=== PATIENT | male | born 1965 | race Caucasian/White ===

== ENCOUNTER 2017-10-07 09:58 | Observation (INO) | payer OTHER, SELFPAY ==
--- NOTE | 2017-10-07 10:58 | RAD REPORT ---
EXAM DESCRIPTION: Jayda Single View10/07/2017 10:35 am CLINICAL HISTORY: Chest pain COMPARISON: July 2017 FINDINGS: The lungs appear clear of acute infiltrate. The heart is normal size IMPRESSION: No acute abnormalities displayed
[2017-10-07 11:13] LABS: Absolute Lymphocytes (CBC) 1.4 K/uL (0.7-4.9); Absolute Monocytes 0.4 K/uL (0.1-1.3); Absolute Neutrophil 3.5 K/uL (1.8-8.0); Basophils % 1.3 % (0-1.3); Hematocrit 48.4 % (39.6-49.0); MCH 30.6 pg (27.0-35.0); MCV 92.4 fL (80-100); MPV 9.5 fL (7.6-11.3); Monocytes % 7.8 % (3.3-12.3); RBC Red Blood Cell Count 5.23 M/uL (4.33-5.43)
[2017-10-07 11:19] LABS: Urine Blood NEGATIVE (NEG); Urine Glucose NEGATIVE (NEG); Urine Protein NEGATIVE (NEG)
[2017-10-07 11:24] LABS: Bicarbonate 27 mEq/L (21-31); Glucose Level 122 mg/dL (65-120); Potassium 3.5 mEq/L (3.6-5.0); Protime INR 1.03; Sodium Level 132 mEq/L (135-145)
[2017-10-07 11:30] LABS: ALT/SGPT 66 IU/L (10-60); AST/SGOT 29 IU/L (10-42); Albumin 4.1 g/dL (3.2-5.5); Alkaline Phosphatase 43 IU/L (42-121); BUN Blood Urea Nitrogen 12 mg/dL (6-20); Bilirubin Direct 0.1 mg/dL (0-0.2); Bilirubin Total 0.3 mg/dL (0.3-1.2); Magnesium 1.8 mg/dL (1.8-2.5); Protein, Total 6.9 g/dL (6.0-8.3)
[2017-10-07] MEDS ORDERED: NITROGLYCERIN 0.4 MG/TAB SL ONE (11:56)
[2017-10-07] MEDS ORDERED: METOPROLOL TAR 50 MG TAB ONE (12:06)
[2017-10-07] MEDS ORDERED: ENOXAPARIN 100 MG/ML SYR SQ ONE (12:49)
[2017-10-07] MEDS ORDERED: ONDANSETRON 4 MG/2 ML VIAL ONE (13:03)
[2017-10-07] MEDS ORDERED: MORPHINE 4 MG/ML SYR ONE ×2 (13:03→13:50)
--- NOTE | 2017-10-07 13:45 | EDPHYS ---
Physician Documentation [facility] Name: Juan Miguel Langston Age: 52 yrs Sex: Male : 1965 Arrival Date: 10/07/2017 Time: 09:59 Bed 8 Private MD: ED Physician Lenard Rosario HPI: 10/07 10:40 This 52 yrs old Male presents to ER via Ambulatory with complaints of Chest pm1 pain. 10:40 The patient or guardian reports chest pain that is located primarily in the substernal pm1 area. Onset: just prior to arrival. The pain does not radiate. Associated signs and symptoms: Pertinent positives: shortness of breath, Pertinent negatives: abdominal pain, cough, dizziness, headache, nausea, palpitations, vomiting. The chest pain is described as a pressure, sharp. Duration: The patient or guardian reports a single episode. Modifying factors: The symptoms are alleviated by nothing. the symptoms are aggravated by emotionally stressful situations, exertion. Severity of pain: in the emergency department the pain is a 2 / 10. The patient has experienced similar episodes in the past, several times. The patient has not recently seen a physician, Has not seen a doctor since July of this year. . Patient has not taken any of his medications since July. Medications include: isosorbide mononitrate, metoprolol (d/c at [facility] ER visit in July), Aspirin 81 mg, atorvastatin, and nitroglycerin. Historical: - Allergies: 10:05 NKA; la1 - PMHx: 10:05 High Cholesterol; Hypertension; Myocardial infarction; Angina; la1 - Immunization history:: Adult Immunizations up to date. - Social history:: Smoking status: Patient uses tobacco products, smokes one-half pack cigarettes per day. ROS: 10:32 Constitutional: Negative for fever, chills, and weight loss, Eyes: Negative for injury, pm1 pain, redness, and discharge, ENT: Negative for injury, pain, and discharge, Neck: Negative for injury, pain, and swelling. 10:32 Respiratory: Negative for shortness of breath, cough, wheezing, and pleuritic chest pain, Abdomen/GI: Negative for abdominal pain, nausea, vomiting, diarrhea, and constipation, Back: Negative for injury and pain, : Negative for injury, bleeding, discharge, and swelling, MS/Extremity: Negative for injury and deformity, Skin: Negative for injury, rash, and discoloration, Neuro: Negative for headache, weakness, numbness, tingling, and seizure. 10:32 Cardiovascular: Positive for chest pain, of the mid-sternal area, Negative for edema, orthopnea, palpitations, paroxysmal nocturnal dyspnea. Exam: 10:32 Constitutional: This is a well developed, well nourished patient who is awake, alert, pm1 and in no acute distress. Head/Face: Normocephalic, atraumatic. Eyes: Pupils equal round and reactive to light, extra-ocular motions intact. Lids and lashes normal. Conjunctiva and sclera are non-icteric and not injected. Cornea within normal limits. Periorbital areas with no swelling, redness, or edema. ENT: Nares patent. No nasal discharge, no septal abnormalities noted. Tympanic membranes are normal and external auditory canals are clear. Oropharynx with no redness, swelling, or masses, exudates, or evidence of obstruction, uvula midline. Mucous membranes moist. Neck: Trachea midline, no thyromegaly or masses palpated, and no cervical lymphadenopathy. Supple, full range of motion without nuchal rigidity, or vertebral point tenderness. No Meningismus. Cardiovascular: Regular rate and rhythm with a normal S1 and S2. No gallops, murmurs, or rubs. Normal PMI, no JVD. No pulse deficits. Respiratory: Lungs have equal breath sounds bilaterally, clear to auscultation and percussion. No rales, rhonchi or wheezes noted. No increased work of breathing, no retractions or nasal flaring. Abdomen/GI: Soft, non-tender, with normal bowel sounds. No distension or tympany. No guarding or rebound. No evidence of tenderness throughout. Back: No spinal tenderness. No costovertebral tenderness. Full range of motion. Skin: Warm, dry with normal turgor. Normal color with no rashes, no lesions, and no evidence of cellulitis. MS/ Extremity: Pulses equal, no cyanosis. Neurovascular intact. Full, normal range of motion. 10:32 Chest/axilla: Inspection: normal, Palpation: crepitus, is not appreciated, tenderness, of the mid-sternal area, increases his chest pain. Vital Signs: 10:05 BP 181 / 100; Pulse 107; Resp 19; Temp 98.1; Pulse Ox 100% on R/A; Weight 99.79 kg; la1 Height 5 ft. 6 in. (167.64 cm); 11:00 BP 157 / 97; Pulse 89; Resp 18; Pulse Ox 100% on R/A; Pain 2/10; hb 12:39 BP 118 / 87; Pulse 74; Resp 18; Pulse Ox 97% on R/A; Pain 5/10; hb 13:15 BP 128 / 68; Pulse 68; Resp 21; Pulse Ox 96% on R/A; Pain 5/10; hb 14:00 BP 120 / 80; Pulse 62; Resp 17; Pulse Ox 99% on R/A; Pain 5/10; hb 15:00 BP 119 / 79; Pulse 59; Resp 18; Pulse Ox 99% on R/A; Pain 4/10; hb 10:05 Body Mass Index 35.51 (99.79 kg, 167.64 cm) la1 MDM: 10:10 Patient medically screened. rambo 10:10 Patient medically screened. rambo 10:44 Data reviewed: vital signs. Data interpreted: Pulse oximetry: on room air is 100 %. pm1 Interpretation: normal. 11:30 ED course: Chest pain worse 5/10 with shortness of breath. Medications ordered. pm1 13:43 Counseling: I had a detailed discussion with the patient and/or guardian regarding: the pm1 historical points, exam findings, and any diagnostic results supporting the discharge/admit diagnosis, lab results, radiology results, the need for further work-up and treatment in the hospital. 14:00 Physician consultation: Steve Bowden DO was contacted at 14:00, regarding admission, pm1 patient's condition, in the emergency department to see patient at 14:00. 10/07 10:18 Order name: Basic Metabolic Panel; Complete Time: 11: pm1 10/07 10:18 Order name: BNP; Complete Time: 12:33 pm1 10/07 10:18 Order name: CBC with Diff; Complete Time: 11:29 pm10/07 10:18 Order name: LFT's; Complete Time: 11:31 pm1 10/07 10:18 Order name: Magnesium; Complete Time: 11: pm1 10/07 10:18 Order name: PT-INR; Complete Time: 11:33 pm1 10/07 10:18 Order name: Ptt, Activated; Complete Time: 11:33 pm10/07 10:18 Order name: Troponin (emerg Dept Use Only); Complete Time: 12:33 pm10/07 10:18 Order name: XRAY Chest (1 view); Complete Time: 10:59 pm1 10/07 11:07 Order name: Urine Dipstick--Ancillary (enter results); Complete Time: 11:29 ag 10/07 16:26 Order name: Troponin I [facility] 10/07 16:29 Order name: Creatine Phosphokinase EDWA 10/07 16:29 Order name: CKMB Creatine Kinase MB EDWA 10/07 10:18 Order name: EKG; Complete Time: 10:19 pm10/07 10:18 Order name: Cardiac monitoring; Complete Time: 11:02 pm10/07 10:18 Order name: EKG - Nurse/Tech; Complete Time: 11:02 pm10/07 10:18 Order name: IV Saline Lock; Complete Time: 11:02 pm10/07 10:18 Order name: Labs collected and sent; Complete Time: 11:02 pm10/07 10:18 Order name: O2 Per Protocol; Complete Time: 11:02 pm10/07 10:18 Order name: O2 Sat Monitoring; Complete Time: 11:02 pm10/07 10:18 Order name: Urine Dipstick-Ancillary (obtain specimen); Complete Time: 10:36 pm1 10/07 15:24 Order name: Diet Regular Pedi; Complete Time: 15:25 ag Administered Medications: 11:37 Drug: Nitroglycerin 0.4 mg Route: Sublingual; hb 11:47 Drug: Aspirin 325 mg Route: PO; hb 12:30 Follow up: Response: No adverse reaction hb 11:47 Drug: Lopressor (metoprolol TARTRATE) 50 mg Route: PO; hb 12:30 Follow up: Response: No adverse reaction hb 11:48 Drug: Nitroglycerin 0.4 mg Route: Sublingual; hb 12:05 Drug: Nitroglycerin 0.4 mg Route: Sublingual; hb 12:30 Follow up: Response: No adverse reaction hb 12:47 Drug: Lovenox 1 mg/kg Route: Sub-Q; Site: abdomen; hb 13:45 Follow up: Response: No adverse reaction hb 12:48 Drug: morphine 4 mg Route: IVP; Site: right antecubital; hb 13:33 Follow up: Response: No adverse reaction hb 12:48 Drug: Zofran 4 mg Route: IVP; Site: right antecubital; hb 13:30 Follow up: Response: No adverse reaction hb 13:34 Drug: morphine 4 mg Route: IVP; Site: right antecubital; hb 14:30 Follow up: Response: No adverse reaction hb Disposition: 10/07/17 13:44 Hospitalization ordered by Steve Bowden for Observation. Preliminary diagnosis is Chest pain, unspecified. - Bed requested for Telemetry/MedSurg (observation). - Status is Observation. ss - Condition is Stable. - Problem is new. - Symptoms have improved. UTI on Admission? No Addendum: 10/10/2017 08:25 Co-signature as Attending Physician, Lenard Rosario MD I agree with the assessment and c boyle plan of care. Signatures: Dispatcher [employer] EDLenard Rivas MD MD cha Smirch, Shelby, RN RN ss Bora Duran RN RN la1 Nilam Burger Patrick, NP CLINIC ADMINISTRATOR pm1 Kym Jim RN RN hb
--- NOTE | 2017-10-07 13:45 | ER ---
Nurse's Notes [facility] Name: Juan Miguel Langston Age: 52 yrs Sex: Male : 1965 Arrival Date: 10/07/2017 Time: 09:59 Bed 8 Private MD: Diagnosis: Chest pain, unspecified Presentation: 10/07 10:03 Presenting complaint: Patient states: I was getting my blood drawn and they checked my la1 BP and it was 170/110 so I came here to get checked out. Pt with hx of HTN and angina. reports chest pain similar to his normal angina. Transition of care: patient was not received from another setting of care. Onset of symptoms was October 07, 2017. Care prior to arrival: None. 10:03 Method Of Arrival: Ambulatory la1 10:03 Acuity: DESTINY 3 la1 Historical: - Allergies: 10:05 NKA; la1 - PMHx: 10:05 High Cholesterol; Hypertension; Myocardial infarction; Angina; la1 - Immunization history:: Adult Immunizations up to date. - Social history:: Smoking status: Patient uses tobacco products, smokes one-half pack cigarettes per day. Screenin:45 Abuse screen: Denies threats or abuse. Denies injuries from another. Nutritional hb screening: No deficits noted. Tuberculosis screening: No symptoms or risk factors identified. Fall Risk None identified. Assessment: 10:45 General: Appears in no apparent distress. Behavior is calm, cooperative. Pain: Pain hb currently is 2 out of 10 on a pain scale. Neuro: Level of Consciousness is awake, alert, obeys commands, Oriented to person, place, time, situation. Cardiovascular: Heart tones S1 S2 present Capillary refill < 3 seconds Patient's skin is warm and dry. Respiratory: Airway is patent Trachea midline Respiratory effort is even, unlabored, Respiratory pattern is regular, symmetrical, Breath sounds are clear bilaterally. GI: No signs and/or symptoms were reported involving the gastrointestinal system. : No signs and/or symptoms were reported regarding the genitourinary system. EENT: No signs and/or symptoms were reported regarding the EENT system. Derm: No signs and/or symptoms reported regarding the dermatologic system. Skin is intact, is healthy with good turgor. Musculoskeletal: No signs and/or symptoms reported regarding the musculoskeletal system. 11:30 Reassessment: Pt c/o chest pain 5/10. Pain does not radiate. Denies SOB/nausea. VIRTUAL CLASSROOM MANAGER hb Oliver notified. 12:00 Reassessment: CP 5/10, VIRTUAL CLASSROOM MANAGER Oliver notified. hb 12:30 Reassessment: CP 5/10, VIRTUAL CLASSROOM MANAGER Oliver notified. hb 12:50 Reassessment: Pt c/o pain 5/0, unrelieved by Nitro x 3. VIRTUAL CLASSROOM MANAGER Oliver notified, morphine 4 hb mg administered as ordered. 14:25 Reassessment: Pt c/o chest pain 5/10, repeat morphine administered as ordered. hb 15:00 Reassessment: Pt resting with eyes closed, reports pain 3-4/10. NAD. VSS. Admission hb ordered. Awaiting room assignment at this time. Vital Signs: 10:05 BP 181 / 100; Pulse 107; Resp 19; Temp 98.1; Pulse Ox 100% on R/A; Weight 99.79 kg; la1 Height 5 ft. 6 in. (167.64 cm); 11:00 BP 157 / 97; Pulse 89; Resp 18; Pulse Ox 100% on R/A; Pain 2/10; hb 12:39 BP 118 / 87; Pulse 74; Resp 18; Pulse Ox 97% on R/A; Pain 5/10; hb 13:15 BP 128 / 68; Pulse 68; Resp 21; Pulse Ox 96% on R/A; Pain 5/10; hb 14:00 BP 120 / 80; Pulse 62; Resp 17; Pulse Ox 99% on R/A; Pain 5/10; hb 15:00 BP 119 / 79; Pulse 59; Resp 18; Pulse Ox 99% on R/A; Pain 4/10; hb 10:05 Body Mass Index 35.51 (99.79 kg, 167.64 cm) la1 ED Course: 09:59 Patient arrived in ED. as 10:05 Triage completed. la1 10:05 Arm band placed on left wrist. la1 10:06 Oliver Man NP is PHCP. pm1 10:06 Lenard Rosario MD is Attending Physician. pm1 10:34 X-ray completed. Portable x-ray completed in exam room. Patient tolerated procedure ml well. 10:36 XRAY Chest (1 view) In Process Unspecified. EDMS 10:45 Patient has correct armband on for positive identification. Placed in gown. Bed in low hb position. Call light in reach. Side rails up X 1. 10:50 Inserted saline lock: in right antecubital area, using aseptic technique. Blood hb collected. 11:02 Kym Jim, NICCI is Primary Nurse. hb 11:16 EKG done, by ED staff, reviewed by Oliver Man NP. 3 13:43 Steve Bowden DO is Hospitalizing Provider. pm1 15:58 Repeat lab(s) drawn. by ia, sent to lab. 3 Administered Medications: 11:37 Drug: Nitroglycerin 0.4 mg Route: Sublingual; hb 11:47 Drug: Aspirin 325 mg Route: PO; hb 12:30 Follow up: Response: No adverse reaction hb 11:47 Drug: Lopressor (metoprolol TARTRATE) 50 mg Route: PO; hb 12:30 Follow up: Response: No adverse reaction hb 11:48 Drug: Nitroglycerin 0.4 mg Route: Sublingual; hb 12:05 Drug: Nitroglycerin 0.4 mg Route: Sublingual; hb 12:30 Follow up: Response: No adverse reaction hb 12:47 Drug: Lovenox 1 mg/kg Route: Sub-Q; Site: abdomen; hb 13:45 Follow up: Response: No adverse reaction hb 12:48 Drug: morphine 4 mg Route: IVP; Site: right antecubital; hb 13:33 Follow up: Response: No adverse reaction hb 12:48 Drug: Zofran 4 mg Route: IVP; Site: right antecubital; hb 13:30 Follow up: Response: No adverse reaction hb 13:34 Drug: morphine 4 mg Route: IVP; Site: right antecubital; hb 14:30 Follow up: Response: No adverse reaction hb Outcome: 13:44 Decision to Hospitalize by Provider. pm1 17:14 Patient left the ED. ss Signatures: Dispatcher [employer] EDMS Dee Dee Morrow Melissa ml Smirch, Shelby, RN RN Bora Duran RN RN la1 Oliver Man NP VIRTUAL CLASSROOM MANAGER pm1 Kym Jim RN RN hb Herrera, Deanna [facility]
--- NOTE | 2017-10-07 14:04 | EKG ---
Test Date: 2017-10-07 Test Time: 11:07:47 Rug Sizer: LUCIANO MEASUREMENT RESULTS: Intervals: Rate: 82 MS: 150 QRSD: 108 QT: 352 QTc: 411 [place]: P: 52 MS: 150 QRS: 56 T: 48 INTERPRETIVE STATEMENTS: Normal sinus rhythm Intraventricular conduction delay Nonspecific T wave abnormality Abnormal ECG Compared to ECG 08/02/2017 17:32:54 no significant change from previous ECG Electronically Signed On 10-07-17 14:03:29 CDT by Eduardo Hernandes
[2017-10-07] MEDS ORDERED: ALBUTEROL 2.5 MG/3 ML NEB SOL NEB PRN (15:31)
[2017-10-07] MEDS ORDERED: ONDANSETRON 4 MG/2 ML VIAL IV PRN (15:31)
[2017-10-07] MEDS ORDERED: IPRATROPIUM BROM 0.5MG/2.5ML NEB PRN (15:31)
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
[2017-10-07 16:29] LABS: CKMB Creatine Kinase MB 4.1 ng/ml (0.3-4.0)
[2017-10-07] MEDS: ENOXAPARIN 40 MG/0.4 ML SQ SCH (17:00)
[2017-10-07 17:14] VITALS: BMI 37.1
[2017-10-07] MEDS: METOPROLOL TAR 25 MG TAB PO SCH (17:23)
[2017-10-07] MEDS ORDERED: POTASSIUM CL SA 10 MEQ TAB PO ONE (18:00)
[2017-10-07] MEDS ORDERED: MAGNESIUM SULFATE 1 gm IVPB 1 GM/100 ML BAG IV ONE (18:00)
[2017-10-07] MEDS: ARFORMOTEROL TARTRATE 15 MCG/2 ML VIAL.NEB NEB SCH (20:08)
[2017-10-07] MEDS: ATORVASTATIN 40 MG TAB PO SCH (20:18)
[2017-10-08 00:46] LABS: CKMB Creatine Kinase MB 3.9 ng/ml (0.3-4.0)
[2017-10-08 05:03] LABS: Absolute Lymphocytes (CBC) 2.1 K/uL (0.7-4.9); Absolute Monocytes 0.6 K/uL (0.1-1.3); Basophils % 1.2 % (0-1.3); Eosinophils % 3.4 % (0-4.4); Hematocrit 47.4 % (39.6-49.0); Lymphocytes % 35.7 % (15.3-44.8); MCH 30.7 pg (27.0-35.0); MCV 92.9 fL (80-100); MPV 9.7 fL (7.6-11.3); Monocytes % 9.7 % (3.3-12.3); RBC Red Blood Cell Count 5.11 M/uL (4.33-5.43)
[2017-10-08 05:32] LABS: BUN Blood Urea Nitrogen 13 mg/dL (6-20); Bicarbonate 26 mEq/L (21-31); Glucose Level 108 mg/dL (65-120); HDL Cholesterol 25 mg/dL (27-67); LDL Cholesterol, Calculated ND (<130); Potassium 4.5 mEq/L (3.6-5.0); Sodium Level 136 mEq/L (135-145)
[2017-10-08] MEDS: METOPROLOL TAR 25 MG TAB PO SCH (05:39)
[2017-10-08] MEDS: PANTOPRAZOLE 40MG TABLET PO SCH (05:39)
[2017-10-08 06:11] LABS: LDL, Direct 113 mg/dl (<130)
[2017-10-08 06:29] LABS: Urine Appearance CLEAR; Urine Bilirubin NEGATIVE (NEG); Urine Blood NEGATIVE (NEG); Urine Color YELLOW; Urine Glucose NEGATIVE (NEG); Urine Protein NEGATIVE (NEG); Urine Urobilinogen 0.2 mg/dL (0.2-1.0)
[2017-10-08 06:44] LABS: Urine Microscopic Reflex NO UMIC
[2017-10-08] MEDS: ARFORMOTEROL TARTRATE 15 MCG/2 ML VIAL.NEB NEB SCH (08:00)
[2017-10-08] MEDS: ASPIRIN EC 81 MG TAB PO SCH (08:12)
[2017-10-08] MEDS: ENOXAPARIN 40 MG/0.4 ML SQ SCH (08:12)
[2017-10-08] MEDS ORDERED: ISOSORBIDE MONO SR 30 MG TAB PO SCH (09:00)
[2017-10-08 10:18] LABS: CKMB Creatine Kinase MB 3.6 ng/ml (0.3-4.0)
--- NOTE | 2017-10-08 10:18 | P.PN ---
Subjective Date of Service: 10/08/17 (Hospitalist note) Primary Care Provider: None Chief Complaint: Chest pain Subjective: Improving (Patient is doing well is chest pain has resolved is an active smoker homeless person does not take any medication history of hypertension medications have been started) Review of Systems Unremarkable Physical Examination - Vital Signs Temperature: 97.6 F Blood Pressure: 140/63 Pulse: 60 Respirations: 18 Pulse Ox (%): 94 - Physical Exam General: Alert, Oriented x3 Respiratory: Clear to auscultation bilaterally Cardiovascular: No edema, Normal pulses Gastrointestinal: Normal bowel sounds, Non-distended - Studies Laboratory Data (last 24 hrs) 10/07/17 10:54: PT 12.1, INR 1.03, APTT 27.3 10/07/17 10:54: WBC 5.5, Hgb 16.0, Hct 48.4, Plt Count 253 10/07/17 10:54: B-Natriuretic Peptide 11 10/07/17 10:54: Sodium 132 L, Potassium 3.5 L, BUN 12, Creatinine 0.82, Glucose 122 H, Magnesium 1.8, Total Bilirubin 0.3, AST 29, ALT 66 H, Alkaline Phosphatase 43 Assessment & Plan - Problems (Diagnosis) (1) Chest pain Onset Date: 07/28/17 Current Visit: No Status: Acute Plan: Patient admitted with chest pain is homeless as not take any medications at home is an active smoker plan to monitor him on his current medications vital signs stable oxygenation satisfactory probably has underlying COPD started him on an inhaler patient's triglycerides are elevated troponin so far negative possible discharge tomorrow Qualifiers: Chest pain type: unspecified Qualified Code(s): R07.9 - Chest pain, unspecified Discharge Plan: Home Plan to discharge in: 24 Hours
[2017-10-08] MEDS: LISINOPRIL 20 MG TAB PO SCH (10:37)
[2017-10-08] MEDS ORDERED: DULERA 100/5 (MOMETASONE/FORMOTEROL) INHALER IH SCH (10:45)
--- NOTE | 2017-10-08 13:34 | CON ---
Chief Complaint: Chest pain. History Of Present Illness: Mr. Langston is a gentleman who comes to our hospital every few months. He will come in not taking medicines, taking medicines, gets stabilized and then go home and run out of medicines again. I think this is his third hospital admission for this. On one of the admission s, we did a cardiac cath. It was in January 2017. His arteries were normal and he has never required a stent or bypass surgery. He is a tobacco user smokes 10 cigarettes per day. He insists he does not drink much, but he will not tell us how much in the past he has had problems with alcohol abuse. No t sure about other substance abuse. He was on no home medications. The last time he was in our hosp ital, he was taking a beta-aly and an DINORAH inhibitor and aspirin. Physical Examination: General: Mr. Langston present blood pressure is 140/63, heart rate 60, temperature 97.6, O2 saturati on 94% on room air. Lungs: Clear. Heart: Within normal limits. Extremities: Normal. Denies having any chest pain. Temperature 97.6. Diagnostic Data: His electrocardiogram shows sinus rhythm, mild widening of the QRS, nonspecific T-w ave flattening. No change from previous EKGs we have in our hospital. His cardiac enzymes are all n ormal. Complete blood count is normal. Creatinine 0.78, blood glucose 108. Impression: Mr. Langston should be discharged. I would recommend we give him aspirin, metoprolol, a nd lisinopril. I do not think there is any role for him to take the isosorbide mononitrate. I would recommend that not be given as an outpatient blood pressure medicine. We should focus on medicines that are very inexpensive for him to take and we should look for some kind of a way he can get his me dicines paid for through some kind of health care plan, perhaps Medicaid could be involved or perhaps he could be a Medicare patient on some basis and have a prescription drug plan. Overall, Mr. Erick barrett hospitalization was caused by discontinuation of medicines that were helping him remain stable. I think we keep him on a beta aly, lisinopril, aspirin then quit using tobacco and alcohol. He co uld probably be very healthy and not requiring any hospitalization. ЕКАТЕРИНА Voice ID: [id number] Report ID: [id number]
[2017-10-08] MEDS: ATORVASTATIN 40 MG TAB PO SCH (20:39)
[2017-10-09 04:55] LABS: Absolute Lymphocytes (CBC) 1.8 K/uL (0.7-4.9); Absolute Monocytes 0.5 K/uL (0.1-1.3); Absolute Neutrophil 3.3 K/uL (1.8-8.0); Basophils % 0.6 % (0-1.3); Eosinophils % 2.9 % (0-4.4); Hematocrit 47.5 % (39.6-49.0); MCH 30.7 pg (27.0-35.0); MCV 92.2 fL (80-100); MPV 9.4 fL (7.6-11.3); Monocytes % 9.2 % (3.3-12.3); RBC Red Blood Cell Count 5.15 M/uL (4.33-5.43)
[2017-10-09 05:19] LABS: BUN Blood Urea Nitrogen 12 mg/dL (6-20); Bicarbonate 32 mEq/L (21-31); Glucose Level 109 mg/dL (65-120); Magnesium 1.9 mg/dL (1.8-2.5); Potassium 4.5 mEq/L (3.6-5.0); Sodium Level 140 mEq/L (135-145)
[2017-10-09] MEDS: PANTOPRAZOLE 40MG TABLET PO SCH (06:43)
[2017-10-09] MEDS: ENOXAPARIN 40 MG/0.4 ML SQ SCH (08:55)
[2017-10-09] MEDS: LISINOPRIL 20 MG TAB PO SCH (08:56)
[2017-10-09] MEDS: ASPIRIN EC 81 MG TAB PO SCH (08:56)
--- NOTE | 2017-10-09 09:40 | P.PN ---
Subjective Date of Service: 10/09/17 (Hospitalist) Primary Care Provider: None Chief Complaint: Chest pain Patient still continues to have chest pain described a retrosternal discomfort sans ischemic in nature that was transient that happened last night in addition he continues to have some pauses cardiology aware no shortness of breath or cough Review of Systems Unremarkable Physical Examination - Vital Signs Temperature: 98.6 F Blood Pressure: 156/84 Pulse: 69 Respirations: 20 Pulse Ox (%): 98 - Physical Exam General: Alert, Oriented x3 Respiratory: Clear to auscultation bilaterally Cardiovascular: No edema, Regular rate/rhythm Assessment & Plan - Problems (Diagnosis) (1) Chest pain Onset Date: 07/28/17 Current Visit: No Status: Acute Plan: Patient still continues to have chest pain has some having some pauses follow- up with Cardiology Qualifiers: Chest pain type: unspecified Qualified Code(s): R07.9 - Chest pain, unspecified
[2017-10-09] MEDS: ACETAMINOPHEN 500 MG TAB PO PRN ×2 (14:00→20:57)
--- NOTE | 2017-10-09 16:09 | PN ---
Subjective: Mr. Langston has had some pauses. They are associated with him taking a beta-aly. Apparently, in the past he has had trouble taking beta- blockers and he was told that he should take them again. He did not list that on his list of medicine, allergies, or intolerances, so we will put it on our electronic medical record. Hopefully, it will keep us from administring medicine he can not take. I think with sleep apnea and beta-aly together, he gets hypoxemic and gets pauses when he is asleep. His blood pressure is just mildly elevated even without a beta-aly. He has not had any pauses since last night. He may be close to being discharged home. He has atypical chest pain. We know how his coronary arteries are, with his recent cardiac catheterization. I think he is close to being ready to be discharged home. ЕКАТЕРИНА Voice ID: [id number] Report ID: [id number] LILLIAN
[2017-10-09] MEDS: ATORVASTATIN 40 MG TAB PO SCH (20:57)
[2017-10-10 04:24] LABS: Absolute Monocytes 0.6 K/uL (0.1-1.3); Absolute Neutrophil 3.4 K/uL (1.8-8.0); Basophils % 0.6 % (0-1.3); Eosinophils % 3.5 % (0-4.4); Hematocrit 47.7 % (39.6-49.0); Lymphocytes % 31.8 % (15.3-44.8); MCH 30.9 pg (27.0-35.0); MCV 92.4 fL (80-100); MPV 9.3 fL (7.6-11.3); Monocytes % 9.2 % (3.3-12.3); RBC Red Blood Cell Count 5.16 M/uL (4.33-5.43)
[2017-10-10 05:05] LABS: BUN Blood Urea Nitrogen 8 mg/dL (6-20); Bicarbonate 32 mEq/L (21-31); Glucose Level 102 mg/dL (65-120); Sodium Level 140 mEq/L (135-145)
[2017-10-10] MEDS: PANTOPRAZOLE 40MG TABLET PO SCH ×2 (07:30→10:17)
[2017-10-10 08:16] VITALS: BP 140/90; TEMP 98
[2017-10-10] MEDS: LISINOPRIL 20 MG TAB PO SCH ×2 (08:42→10:17)
[2017-10-10] MEDS: ASPIRIN EC 81 MG TAB PO SCH ×2 (08:42→10:17)
[2017-10-10] MEDS ORDERED: REGADENOSON 0.4 MG/5 ML SYR IV ONE (08:57)
[2017-10-10] MEDS: ENOXAPARIN 40 MG/0.4 ML SQ SCH (10:17)
--- NOTE | 2017-10-10 10:25 | RAD REPORT ---
EXAM DESCRIPTION: NM - Rest Stress Cardiac Imaging - 10/10/2017 10:16 am CLINICAL HISTORY: Chest pain COMPARISON: December 2016 TECHNIQUE: The patient was administered 10.3 mCi of Tc 99m Sestamibi prior to resting SPECT imaging of the heart. The patient was then administered 31.8 mCi of Tc 99m Sestamibi following exercise or ph armacologic stress. Multiplanar SPECT images were reviewed. FINDINGS: The end diastolic volume is 145 ml, the end systolic volume is 84 ml, and the ejection fra ction is 42 %. Ventricular volumes and ejection fraction are similar to the comparison. Prior study showed suspected reversible perfusion defect in the inferior wall left ventricular myocar dium. It is unknown if the patient underwent any stenting or diagnostic angiogram following the jose rison study. On the current examination, the prior inferior wall defect is not seen as a reversible defect. There is inferoseptal diminished activity that does not change between rest and stress imaging. Elsewhere i n the left ventricular myocardium no scarring or stress ischemia identifiable. IMPRESSION: No stress-induced ischemia identifiable. There is a small area of fixed diminished activ ity in the inferoseptal wall that may simply be diaphragmatic attenuation artifact or possibly scarri ng. The stress ischemic change seen on the December 2016 study is not appreciated on the current examination. End-diastolic volume is enlarged at 145 mL. Ejection fraction is below normal at 42%. These values a re similar to the December 2016 study.
--- NOTE | 2017-10-10 11:13 | TREADPHA ---
DX: CHEST PAIN, CORONARY ARTERY DISEASE Date of Study: 10/10/2017 Ht: 5' 6 " Wt: 230 lb 0 oz Consulting Physician: RIN MEDICATIONS: ASPIRIN, LIPITOR, LOVENOX, LISINOPRIL, PROTONIX, PROVENTEIL NEB TX, ATROVENT NEB TX HISTORY: 52 YEAR OLD MALE HERE FOR CHEST PAIN/ CORONARY ARTERY DISEASE. HISTORY OF MYOCARDIAL INFARCTION, ANGINA, HYPERTENSION, HIGH CHOLESTEROL, SLEEP APNEA PHYSICIAL EXAMINATION: RESTING B.P.: 140/88 RESTING H.R.: 76 RESTING EKG: SINUS, NON SPECIFIC ST ABNORMALITY. PROTOCOL: LEXISCAN EXERCISE TIME: 3:30 B.P. AT [place] STRESS: 149/61 IMPRESSION: LEXISCAN STRESS TEST PERFORMED AFTER UNSUCCESSFUL MYOVIEW. CARDIOLITE INJECTED PER PROTOCOL. COMLAINTS OF 4/10 MID STERNAL CHEST PRESSURE PRE TEST THAT INCREASED "SLIGHTLY FOR A FEW SECONDS" THEN RETURNED TO PRE LEVEL. SEE NUCLEAR MEDICINE REPORT. NO ST CHANGES WITH LEXISCAN STRESS.
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
[2017-10-10 12:04] VITALS: O2SAT 97
--- NOTE | 2017-10-10 13:01 | ECHO ---
HEIGHT: 5 ft 6 in WEIGHT: 230 lb 0 oz DATE OF STUDY: 10/10/[address]: Steve Bowden DO 2-DIMENSIONAL: YES M.MODE: YES DOPPLER: YES COLOR FLOW: YES TDS: NO PORTABLE: NO DEFINITY: NO BUBBLE STUDY: NO DIAGNOSIS: CHEST PAIN, CORONARY ARTERY DISEASE CARDIAC HISTORY: CATHERIZATION: YES SURGERY: NO PROSTHETIC VALVE: NO PACEMAKER: NO MEASUREMENTS (cm) DIASTOLIC (NORMALS) SYSTOLIC (NORMALS) IVSd 0.9 (0.6-1.2) LA Diam 3.2 (1.9-4.0) LVEF 60% LVIDd 4.6 (3.5-5.7) LVIDs 3.2 (2.0-3.5) %FS 32% LVPWd 1.0 (0.6-1.2) Ao Diam 3.2 (2.0-3.7) 2 DIMENSIONAL ASSESSMENT: RIGHT ATRIUM: NORMAL LEFT ATRIUM: NORMAL RIGHT VENTRICLE: NORMAL LEFT VENTRICLE: NORMAL TRICUSPID VALVE: NORMAL MITRAL VALVE: NORMAL PULMONIC VALVE: NORMAL AORTIC VALVE: NORMAL PERICARDIAL EFFUSION: NONE AORTIC ROOT: NORMAL LEFT VENTRICULAR WALL MOTION: NORMAL. DOPPLER/COLOR FLOW: NORMAL. COMMENTS: NORMAL 2D ECHO WITH DOPPLER. TECHNOLOGIST: VIN MURO
== END 2017-10-10 12:21 | disposition home or self-care (01) ==
LOC: ER 09:58 → ERHOLD 14:53 → 4TH 16:27
PROVIDERS: ADMIT Family Medicine; ATTEND Family Medicine
DX: R07.89 Other chest pain (principal); E87.1 Hypo-osmolality and hyponatremia; E87.6 Hypokalemia; I10 Essential (primary) hypertension; E78.5 Hyperlipidemia, unspecified; J44.9 Chronic obstructive pulmonary disease, unspecified; R09.02 Hypoxemia; G47.30 Sleep apnea, unspecified; I25.10 Atherosclerotic heart disease of native coronary artery without angina pectoris; E66.01 Morbid (severe) obesity due to excess calories; F17.200 Nicotine dependence, unspecified, uncomplicated; Z68.37 Body mass index [BMI] 37.0-37.9, adult
CPT/HCPCS: 36415; 71045; 78452; 80048; 80061; 80076; 81003; 82550; 82553; 83735; 83880; 84484; 85025; 85610; 85730; 93005; 93017; 93306; 96372; 96374; 96375; 99284; A9500; G0378; J1650; J2405; J2785; J3475; J7605

== ENCOUNTER 2017-10-10 14:40 | Emergency (ER) | payer OTHER, SELFPAY ==
--- NOTE | 2017-10-10 16:30 | RAD REPORT ---
EXAM DESCRIPTION: Jayda Single View10/10/2017 4:24 pm CLINICAL HISTORY: cough COMPARISON: October 07, 2017 FINDINGS: The lungs appear clear of acute infiltrate. The heart is normal size IMPRESSION: No acute abnormalities displayed
[2017-10-10] MEDS ORDERED: ASPIRIN 81 MG CHEWABLE TABLET ONE (16:42)
[2017-10-10] MEDS ORDERED: AMLODIPINE 5 MG TAB ONE (16:43)
--- NOTE | 2017-10-10 16:47 | EKG ---
Test Date: 2017-10-10 Test Time: 16:16:03 [employer]: SERG MEASUREMENT RESULTS: Intervals: Rate: 96 WY: 150 QRSD: 96 QT: 330 QTc: 416 [place]: P: 51 WY: 150 QRS: 69 T: -64 INTERPRETIVE STATEMENTS: Normal sinus rhythm ST & T wave abnormality, consider inferolateral ischemia Abnormal ECG Compared to ECG 10/07/2017 11:07:47 no significant change from previous ECG Electronically Signed On 10-10-17 16:47:15 CDT by Eduardo Hernandes
[2017-10-10 18:08] LABS: Absolute Lymphocytes (CBC) 1.8 K/uL (0.7-4.9); Absolute Monocytes 0.6 K/uL (0.1-1.3); Absolute Neutrophil 5.8 K/uL (1.8-8.0); Basophils % 1.4 % (0-1.3); Eosinophils % 1.2 % (0-4.4); Hematocrit 49.2 % (39.6-49.0); MCH 30.8 pg (27.0-35.0); MCV 90.9 fL (80-100); MPV 9.7 fL (7.6-11.3); RBC Red Blood Cell Count 5.41 M/uL (4.33-5.43)
[2017-10-10 18:15] LABS: Protime INR 1.04
[2017-10-10 18:22] LABS: Bicarbonate 26 mEq/L (21-31); Glucose Level 85 mg/dL (65-120); Potassium 3.6 mEq/L (3.6-5.0); Sodium Level 139 mEq/L (135-145)
[2017-10-10 18:28] LABS: ALT/SGPT 71 IU/L (10-60); AST/SGOT 40 IU/L (10-42); Albumin 4.2 g/dL (3.2-5.5); Alkaline Phosphatase 40 IU/L (42-121); BUN Blood Urea Nitrogen 8 mg/dL (6-20); Bilirubin Direct 0.1 mg/dL (0-0.2); Bilirubin Total 0.4 mg/dL (0.3-1.2); Creatine Phosphokinase 162 IU/L (22-269); Magnesium 1.9 mg/dL (1.8-2.5); Protein, Total 6.8 g/dL (6.0-8.3)
[2017-10-10 18:31] LABS: CKMB Creatine Kinase MB 4.4 ng/ml (0.3-4.0)
[2017-10-10 19:22] LABS: CKMB Creatine Kinase MB 4.3 ng/ml (0.3-4.0)
[2017-10-10] MEDS ORDERED: ISOSORBIDE MONO SR 60 MG TAB PO ONE (19:23)
--- NOTE | 2017-10-10 19:25 | EDPHYS ---
Physician Documentation [facility] Name: Juan Miguel Langston Age: 52 yrs Sex: Male : 1965 Arrival Date: 10/10/2017 Time: 14:43 Bed 6 Private MD: ED Physician Lenard Rosario HPI: 10/10 16:41 This 52 yrs old Male presents to ER via EMS with complaints of High Blood rambo Pressure. 16:41 The patient has elevated blood pressure and discovered this at home. Onset: The rambo symptoms/episode began/occurred just prior to arrival, this morning. Modifying factors: The symptoms are aggravated by activity, The symptoms are alleviated by remaining still. Associated signs and symptoms: The patient has no apparent associated signs or symptoms. The patient has experienced similar episodes in the past, multiple times. Historical: - Allergies: 14:51 NKA; hj - Home Meds: 14:51 Isosorbide Mononitrate Oral [Active]; Metoprolol Tartrate Oral [Active]; hj - PMHx: 14:51 Angina; High Cholesterol; Hypertension; Myocardial infarction; hj - PSHx: 14:51 None; hj - Immunization history:: Adult Immunizations up to date. - Social history:: Smoking status: Patient uses tobacco products, smokes one pack cigarettes per day. ROS: 16:42 Constitutional: Negative for fever, chills, and weight loss, Eyes: Negative for injury, rambo pain, redness, and discharge, ENT: Negative for injury, pain, and discharge, Neck: Negative for injury, pain, and swelling, Respiratory: Negative for shortness of breath, cough, wheezing, and pleuritic chest pain, Abdomen/GI: Negative for abdominal pain, nausea, vomiting, diarrhea, and constipation, Back: Negative for injury and pain, : Negative for injury, bleeding, discharge, and swelling, MS/Extremity: Negative for injury and deformity, Skin: Negative for injury, rash, and discoloration, Neuro: Negative for headache, weakness, numbness, tingling, and seizure, Psych: Negative for depression, anxiety, suicide ideation, homicidal ideation, and hallucinations, Allergy/Immunology: Negative for hives, rash, and allergies, Endocrine: Negative for neck swelling, polydipsia, polyuria, polyphagia, and marked weight changes, Hematologic/Lymphatic: Negative for swollen nodes, abnormal bleeding, and unusual bruising. 16:42 Cardiovascular: 16:42 Neuro: Positive for dizziness, headache. Exam: 16:42 Constitutional: This is a well developed, well nourished patient who is awake, alert, rambo and in no acute distress. Head/Face: Normocephalic, atraumatic. Eyes: Pupils equal round and reactive to light, extra-ocular motions intact. Lids and lashes normal. Conjunctiva and sclera are non-icteric and not injected. Cornea within normal limits. Periorbital areas with no swelling, redness, or edema. ENT: Nares patent. No nasal discharge, no septal abnormalities noted. Tympanic membranes are normal and external auditory canals are clear. Oropharynx with no redness, swelling, or masses, exudates, or evidence of obstruction, uvula midline. Mucous membranes moist. Neck: Trachea midline, no thyromegaly or masses palpated, and no cervical lymphadenopathy. Supple, full range of motion without nuchal rigidity, or vertebral point tenderness. No Meningismus. Chest/axilla: Normal chest wall appearance and motion. Nontender with no deformity. No lesions are appreciated. Cardiovascular: Regular rate and rhythm with a normal S1 and S2. No gallops, murmurs, or rubs. Normal PMI, no JVD. No pulse deficits. Abdomen/GI: Soft, non-tender, with normal bowel sounds. No distension or tympany. No guarding or rebound. No evidence of tenderness throughout. Back: No spinal tenderness. No costovertebral tenderness. Full range of motion. Male : Normal genitalia with no discharge or lesions. Skin: Warm, dry with normal turgor. Normal color with no rashes, no lesions, and no evidence of cellulitis. MS/ Extremity: Pulses equal, no cyanosis. Neurovascular intact. Full, normal range of motion. Neuro: Awake and alert, GCS 15, oriented to person, place, time, and situation. Cranial nerves II-XII grossly intact. Motor strength 5/5 in all extremities. Sensory grossly intact. Cerebellar exam normal. Normal gait. Psych: Awake, alert, with orientation to person, place and time. Behavior, mood, and affect are within normal limits. 16:42 Respiratory: the patient does not display signs of respiratory distress, Respirations: normal, Breath sounds: are clear throughout, Respiratory rate: 18 Vital Signs: 14:52 BP 156 / 85; Pulse 99; Resp 18; Temp 98.9(TE); Pulse Ox 99% on R/A; Weight 99.79 kg; hj Height 5 ft. 6 in. (167.64 cm); Pain 5/10; 16:40 BP 168 / 86; Pulse 85; Resp 16; Temp 98.5; Pulse Ox 99% on R/A; Pain 5/10; ch 17:55 BP 144 / 76; Pulse 72; ch 18:29 BP 147 / 87; Pulse 80; Resp 15; Temp 97.8; Pulse Ox 99% on R/A; Pain 2/10; ch 19:40 BP 140 / 72; Pulse 78; Resp 18; Temp 98.7(O); Pulse Ox 99% on R/A; ea 14:52 Body Mass Index 35.51 (99.79 kg, 167.64 cm) hj MDM: 16:07 Patient medically screened. [facility] 19:29 Data reviewed: vital signs, nurses notes, lab test result(s), EKG, radiologic studies, rambo plain films. Physician consultation: Eduardo Hernandes MD and will see patient in office, little to no coronary disease. 10/10 16:08 Order name: Basic Metabolic Panel [facility] 10/10 16:08 Order name: BNP; Complete Time: 19:24 [facility] 10/10 16:08 Order name: CBC with Diff; Complete Time: 18:31 [facility] 10/10 16:08 Order name: Ckmb; Complete Time: 18:31 [facility] 10/10 16:08 Order name: CPK; Complete Time: 18:31 [facility] 10/10 16:08 Order name: LFT's; Complete Time: 18:31 [facility] 10/10 16:08 Order name: Magnesium; Complete Time: 18:31 [facility] 10/10 16:08 Order name: PT-INR; Complete Time: 18:31 [facility] 10/10 16:08 Order name: Ptt, Activated; Complete Time: 18:31 [facility] 10/10 16:08 Order name: Troponin (emerg Dept Use Only); Complete Time: 18:31 [facility] 10/10 16:08 Order name: Basic Metabolic Panel; Complete Time: 18:31 [facility]MS 10/10 18:31 Order name: Ckmb [facility] 10/10 18:31 Order name: Creatine Phosphokinase [facility] 10/10 18:31 Order name: Troponin (emerg Dept Use Only); Complete Time: 19:24 [facility] 10/10 16:08 Order name: XRAY Chest (1 view); Complete Time: 18:05 [facility] 10/10 16:08 Order name: EKG; Complete Time: 16:09 [facility] 10/10 16:08 Order name: Cardiac monitoring; Complete Time: 18:00 [facility] 10/10 16:08 Order name: EKG - Nurse/Tech; Complete Time: 18:00 [facility] 10/10 16:08 Order name: IV Saline Lock; Complete Time: 18:00 [facility] 10/10 16:08 Order name: Labs collected and sent; Complete Time: 18:00 [facility] 10/10 16:08 Order name: O2 Per Protocol; Complete Time: 18:01 [facility] 10/10 16:08 Order name: O2 Sat Monitoring; Complete Time: 18:01 [facility] 10/10 18:31 Order name: Repeat Cardiac Enzymes at; Complete Time: 19:04 [facility] 10/10 18:31 Order name: EKG; Complete Time: 18:31 [facility] 10/10 18:31 Order name: EKG - Nurse/Tech; Complete Time: 19:04 [facility] Administered Medications: 16:41 Drug: Aspirin 81 mg Route: PO; ch 18:00 Follow up: Response: No adverse reaction; Marked relief of symptoms ch 16:41 Drug: Norvasc 5 mg Route: PO; ch 18:00 Follow up: Response: No adverse reaction ch 19:15 Drug: Isosorbide Mononitrate 60 mg Route: PO; ea 19:35 Follow up: Response: No adverse reaction ea Disposition: 10/10/17 19:25 Discharged to Home. Impression: Essential (primary) hypertension, Dizziness and giddiness, Tobacco use, Tobacco abuse counseling. - Condition is Stable. - Discharge Instructions: Dizziness, Hypertension, Smoking Cessation, Smoking Hazards, Hypertension, [id number], Smoking, You Can Quit, [id number], How to Take Your Blood Pressure, [id number], Aspirin and Your Heart, Dizziness, [id number]-[id number], Managing Your High Blood Pressure. - Prescriptions for Isosorbide Mononitrate 30 mg Oral Tablet Sustained Release 24 hr - take 1 tablet by ORAL route once daily in the morning; 30 tablet. Norvasc 5 mg Oral Tablet - take 1 tablet by ORAL route once daily; 20 tablet. - Medication Reconciliation Form, Thank You Letter, Antibiotic Education, Prescription Opioid Use form. - Follow up: Private Physician; When: 2 - 3 days; Reason: Recheck today's complaints, Continuance of care, Re-evaluation by your physician. Follow up: Eduardo Hernandes; When: 1 - 2 days; Reason: Recheck today's complaints, Continuance of care, Re-evaluation by your physician. - Problem is new. - Symptoms have improved. Signatures: Dispatcher [employer] Marimar Blackmon, RN RN Lenard Irvin MD MD cha Joaquin, Henry, RN RN Jeimy Waddell RN RN wendy
--- NOTE | 2017-10-10 19:25 | ER ---
Nurse's Notes [facility] Name: Juan Miguel Langston Age: 52 yrs Sex: Male : 1965 Arrival Date: 10/10/2017 Time: 14:43 Bed 6 Private MD: Diagnosis: Essential (primary) hypertension;Dizziness and giddiness;Tobacco use;Tobacco abuse counseling Presentation: 10/10 14:49 Presenting complaint: EMS states: was called for pt complaining of high BP; reports hj slight headache, A\T\O x 4; has just been D/C'd from a hospital for hypertension; denies nausea and vomiting; BP- 240/120; 2nd reading 175/110. Transition of care: patient was not received from another setting of care. Onset of symptoms was October 10, 2017. Care prior to arrival: None. 14:49 Method Of Arrival: EMS: [facility] 14:49 Acuity: DESTINY 3 hj Triage Assessment: 14:51 General: Appears in no apparent distress. uncomfortable, Behavior is calm, cooperative, hj appropriate for age. Pain: Complains of pain in head. Historical: - Allergies: 14:51 NKA; hj - Home Meds: 14:51 Isosorbide Mononitrate Oral [Active]; Metoprolol Tartrate Oral [Active]; hj - PMHx: 14:51 Angina; High Cholesterol; Hypertension; Myocardial infarction; hj - PSHx: 14:51 None; hj - Immunization history:: Adult Immunizations up to date. - Social history:: Smoking status: Patient uses tobacco products, smokes one pack cigarettes per day. Screenin:40 Abuse screen: Denies threats or abuse. Denies injuries from another. Nutritional ch screening: No deficits noted. Tuberculosis screening: No symptoms or risk factors identified. Fall Risk None identified. Assessment: 16:50 Reassessment: Patient appears in no apparent distress at this time. Patient and/or ch family updated on plan of care and expected duration. Pain level reassessed. Patient is alert, oriented x 3, equal unlabored respirations, skin warm/dry/pink. 17:53 General: Appears in no apparent distress. comfortable, Behavior is calm, cooperative, ch appropriate for age. Pain: Complains of pain in head and chest Pain currently is 3 out of 10 on a pain scale. Pain began gradually. Neuro: No deficits noted. Level of Consciousness is awake, alert, obeys commands, Oriented to person, place, time, situation. Cardiovascular: Reports None. Respiratory: Airway is patent Respiratory effort is even, unlabored, Breath sounds are coarse bilaterally. GI: No signs and/or symptoms were reported involving the gastrointestinal system. Derm: Skin is normal. Musculoskeletal: No signs and/or symptoms reported regarding the musculoskeletal system. 18:40 Reassessment: Patient appears in no apparent distress at this time. No changes from previously documented assessment. Patient and/or family updated on plan of care and expected duration. Pain level reassessed. Patient is alert, oriented x 3, equal unlabored respirations, skin warm/dry/pink. repeat ekg and labs drawn. Vital Signs: 14:52 BP 156 / 85; Pulse 99; Resp 18; Temp 98.9(TE); Pulse Ox 99% on R/A; Weight 99.79 kg; hj Height 5 ft. 6 in. (167.64 cm); Pain 5/10; 16:40 BP 168 / 86; Pulse 85; Resp 16; Temp 98.5; Pulse Ox 99% on R/A; Pain 5/10; ch 17:55 BP 144 / 76; Pulse 72; ch 18:29 BP 147 / 87; Pulse 80; Resp 15; Temp 97.8; Pulse Ox 99% on R/A; Pain 2/10; ch 19:40 BP 140 / 72; Pulse 78; Resp 18; Temp 98.7(O); Pulse Ox 99% on R/A; ea 14:52 Body Mass Index 35.51 (99.79 kg, 167.64 cm) ED Course: 14:43 Patient arrived in ED. mr 14:51 Triage completed. hj 14:52 Arm band placed on left wrist. hj 16:07 Lenard Rosario MD is Attending Physician. [facility] 16:14 EKG done, by deployment technician. reviewed by Lenard Rosario MD. [facility] 16:24 X-ray completed. Portable x-ray completed in exam room. Patient tolerated procedure mh1 well. 16:25 XRAY Chest (1 view) In Process Unspecified. EDMS 16:40 Patient has correct armband on for positive identification. Placed in gown. Bed in low ch position. Call light in reach. Side rails up X 1. front desk monitor on. Pulse ox on. NIBP on. Warm blanket given. 16:40 No provider procedures requiring assistance completed. ch 16:40 Missed attempt(s): 20 gauge in right in left antecubital area. attempted by sunitha . ch Bleeding controlled, band aid applied, catheter tip intact. 16:41 Marimar North, RN is Primary Nurse. ch 17:40 No apparent distress. Resting quietly. ch 17:40 Inserted saline lock: 20 gauge in right hand, using aseptic technique. Blood collected. ch 19:09 Report given to Carmencita. ch 19:25 Eduardo Hernandes MD is Referral Physician. rambo 19:43 IV discontinued, intact, bleeding controlled, No redness/swelling at site. Pressure ak1 dressing applied. Administered Medications: 16:41 Drug: Aspirin 81 mg Route: PO; ch 18:00 Follow up: Response: No adverse reaction; Marked relief of symptoms ch 16:41 Drug: Norvasc 5 mg Route: PO; ch 18:00 Follow up: Response: No adverse reaction ch 19:15 Drug: Isosorbide Mononitrate 60 mg Route: PO; ea 19:35 Follow up: Response: No adverse reaction ea Outcome: 19:25 Discharge ordered by . rambo 19:40 Discharged to home ambulatory, with significant other. ak1 19:40 Condition: improved 19:40 Discharge instructions given to patient, Instructed on discharge instructions, follow up and referral plans. medication usage, Demonstrated understanding of instructions, follow-up care, medications, Prescriptions given X 2. 20:01 Patient left the ED. ea Signatures: Dispatcher [employer] EDMS Marimar North, RN Lenard Meade ch, MD MD cha Rivera, Maria Gris Tenorio 1 Thu lynn, gyroscopic instrument mechanic EKG Tat1 Malu Herrera, RN RN ak1 Wild Wallace RN RN hj Antunez, Elena, RN RN ea Corrections: (The following items were deleted from the chart) 14:54 14:52 Pulse 99bpm; Resp 18bpm; Pulse Ox 99% RA; Temp 98.9F Temporal; 99.79 kg; Height 5 hj ft. 6 in.; BMI: 35.5; Pain 5/10; hj 17:58 16:40 Inserted saline lock: 20 gauge in right hand, using aseptic technique. Blood ch collected.
[2017-10-10 20:13] VITALS: O2SAT 99
[2017-10-10 20:18] VITALS: BP 140/72; TEMP 98.7
--- NOTE | 2017-10-11 06:56 | EKG ---
Test Date: 2017-10-10 Test Time: 18:56:07 Orange Picker Machine Operator: LAURA MEASUREMENT RESULTS: Intervals: Rate: 69 OH: 150 QRSD: 106 QT: 376 QTc: 402 [place]: P: 60 OH: 150 QRS: 71 T: -15 INTERPRETIVE STATEMENTS: Normal sinus rhythm Septal infarct, age undetermined ST & T wave abnormality, consider inferior ischemia Abnormal ECG Compared to ECG 10/10/2017 16:16:03 Myocardial infarct finding now present ST (T wave) deviation still present Possible ischemia still present Electronically Signed On 10-11-17 06:55:11 CDT by Eduardo Hernandes
== END 2017-10-10 20:01 | disposition home or self-care (01) ==
LOC: ER 14:40
DX: I10 Essential (primary) hypertension (principal); I25.2 Old myocardial infarction; Z72.0 Tobacco use; Z71.6 Tobacco abuse counseling
CPT/HCPCS: 36415; 71045; 80048; 80076; 82550; 82553; 83735; 83880; 84484; 85025; 85610; 85730; 93005; 99285

== ENCOUNTER 2017-11-24 14:33 | Observation (INO) | payer OTHER, SELFPAY ==
[2017-11-24 15:22] LABS: Absolute Lymphocytes (CBC) 1.7 K/uL (0.7-4.9); Absolute Monocytes 0.6 K/uL (0.1-1.3); Basophils % 0.8 % (0-1.3); Eosinophils % 2.1 % (0-4.4); Hematocrit 46.2 % (39.6-49.0); Lymphocytes % 26.6 % (15.3-44.8); MCH 30.6 pg (27.0-35.0); MCV 91.4 fL (80-100); MPV 9.4 fL (7.6-11.3); Monocytes % 8.5 % (3.3-12.3); RBC Red Blood Cell Count 5.05 M/uL (4.33-5.43)
[2017-11-24 15:25] LABS: Protime INR 0.99
[2017-11-24] MEDS ORDERED: MORPHINE 4 MG/ML SYR ONE (15:32)
[2017-11-24] MEDS ORDERED: NA CHLORIDE 0.9% 1,000 ML ONE ×2 (15:33→18:32)
[2017-11-24] MEDS ORDERED: ONDANSETRON 4 MG/2 ML VIAL ONE (15:33)
[2017-11-24 15:43] LABS: Bicarbonate 27 mEq/L (21-31); Glucose Level 121 mg/dL (65-120); Potassium 3.5 mEq/L (3.6-5.0); Sodium Level 137 mEq/L (135-145)
[2017-11-24 15:49] LABS: ALT/SGPT 56 IU/L (10-60); AST/SGOT 25 IU/L (10-42); Albumin 4.2 g/dL (3.2-5.5); Alkaline Phosphatase 43 IU/L (42-121); BUN Blood Urea Nitrogen 16 mg/dL (6-20); Bilirubin Direct 0.1 mg/dL (0-0.2); Bilirubin Total 0.5 mg/dL (0.3-1.2); Creatine Phosphokinase 138 IU/L (22-269)
--- NOTE | 2017-11-24 15:52 | RAD REPORT ---
EXAM DESCRIPTION: RAD - Chest Single View - 11/24/2017 3:02 pm CLINICAL HISTORY: Mid sternal chest pain COMPARISON: October 10, 2017 TECHNIQUE: AP portable chest image was obtained 1459 hours . FINDINGS: Lungs are clear. Heart and vasculature are normal. No measurable pleural effusion and no p neumothorax. No gross bony abnormality seen. No acute aortic findings suspected. IMPRESSION: No acute cardiopulmonary process. No significant interval
[2017-11-24] MEDS ORDERED: FENTANYL CITR 100 MCG/2 ML ONE (16:28)
[2017-11-24 16:52] LABS: Urine Blood NEGATIVE (NEG); Urine Glucose NEGATIVE (NEG); Urine Protein NEGATIVE (NEG); Urine pH 6.5 (5.0-7.0)
[2017-11-24 17:55] LABS: CKMB Creatine Kinase MB 3.5 ng/ml (0.3-4.0)
--- NOTE | 2017-11-24 17:57 | P.HP ---
Certification for Inpatient Patient admitted to: Observation With expected LOS: <2 Midnights Patient will require the following post-hospital care: Other Practitioner: I am a practitioner with admitting privileges, knowledge of patient current condition, hospital course, and medical plan of care. Services: Services provided to patient in accordance with Admission requirements found in Title 42 Section 412.3 of the Code of Federal Regulations Patient History Date of Service: 11/24/17 Primary Care Provider: None Reason for admission: Chest pain History of Present Illness: 52-year-old male presented emergency room with chest pain. Patient reported chest pain earlier today. The pain was in the substernal region. It radiated to the left side. No significant nausea or vomiting noted. He reports that he has not been compliant with his medication. Patient with history of hypertension, COPD, CAD, hyperlipidemia, GERD, and tobacco abuse. Patient recently hospitalized in October for similar issues. Patient had stress test at that time which showed no stress-induced ischemia. Ejection fraction was 42%. He was given medication and told to follow up. He reports that he is homeless. The only medication that he can afford is his blood pressure medication. In the ER he was evaluated. Initial cardiac enzymes unremarkable. Potassium 3.5, CBC unremarkable. Chest x-ray unremarkable. Due to the nature of his symptoms the patient was admitted for observation. The patient reports that he has been hot lately and mildly dehydrated since he is homeless. The wather outside has been poor. Allergies Beta-Blockers (Beta-Adrenergic Bloc Adverse Reaction (Verified 10/09/17 11:30) Anaphylaxis metoprolol Adverse Reaction (Verified 10/10/17 06:56) Anaphylaxis No Known Allergies Allergy (Uncoded 10/10/17 20:05) Unknown Home medications list reviewed: Yes Home Medications: Atorvastatin Calcium [Lipitor] 40 mg PO BEDTIME 30 Days #30 tab 10/08/17 Lisinopril [Prinivil*] 20 mg PO DAILY 30 Days #30 tab 10/08/17 Mometasone/Formoterol [Dulera 100 Mcg/5 Mcg Inhaler] 2 puff IH BID inhaler 01/18 Albuterol Sulfate [Proair Hfa] 8.5 gm IH TID PRN #1 hfa.aer.ad 10/10/17 Aspirin [Aspirin EC 81 MG] 81 mg PO DAILY #90 tablet. 10/10/17 Fluticasone/Salmeterol [Airduo Respiclick 113-14 Mcg] 1 each IH BID #1 aer.pow.ba 10/10/17 Pantoprazole [Protonix Tab] 40 mg PO DAILY #30 tab 10/10/17 - Past Medical/Surgical History Diabetic: No -: Angina -: HTN -: Hyperlipidemia -: Tobacco abuse -: CAD -: COPD -: GERD -: Noncompliance with medication and follow up -: CARDIAC CATH 12/2013 NO STENTS 30% BLOCKAGE PER PT -: Cardiac stress tests October 2017 showed no stress-induced ischemia Psychosocial/ Personal History: Patient is single. Patient is homeless. - Family History MOM -: Heart disease, Other (see notes) Notes: MASSIVE MD 61YR and arthritis DAD -: Heart disease, Other (see notes) Notes: POOR CIRCULATION TO LEGS PER PT - Social History Smoking Status: Heavy Tobacco smoker (>10 cigarettes/day) Counseled patient to stop smoking for: less than 10 minutes Smoking therapy provided: Yes Patient receptive to therapy: Yes Alcohol use: Yes CD- Drugs: No Caffeine use: Yes Place of Residence: Home Review of Systems General: Weakness, As per HPI Eyes: Unremarkable ENT: Unremarkable Respiratory: Unremarkable Cardiovascular: Chest Pain, As per HPI Gastrointestinal: Unremarkable Genitourinary: Unremarkable Musculoskeletal: Unremarkable Integumentary: Unremarkable Neurological: Unremarkable Lymphatics: Unremarkable Physical Examination - Physical Exam General: Alert, In no apparent distress, Oriented x3, Cooperative HEENT: Atraumatic, Normocephalic, PERRLA, Other (Dry mucous membranes) Neck: Supple, No Thyromegaly Respiratory: Clear to auscultation bilaterally, Normal air movement Cardiovascular: Normal pulses, Regular rate/rhythm Gastrointestinal: Normal bowel sounds, Soft and benign, Non-distended, No tenderness, No masses, No rebound, No guarding Musculoskeletal: No erythema, No tenderness, No warmth Integumentary: No tenderness/swelling, No erythema, No warmth, No cyanosis Neurological: Normal speech, Normal strength at 5/5 x4 extr, Normal tone, Normal affect Lymphatics: No axilla or inguinal lymphadenopathy - Studies Laboratory Data (last 24 hrs) 11/24/17 15:00: PT 11.7, INR 0.99, APTT 25.1 11/24/17 15:00: WBC 6.5, Hgb 15.5, Hct 46.2, Plt Count 238 11/24/17 15:00: B-Natriuretic Peptide 8 11/24/17 15:00: Sodium 137, Potassium 3.5 L, BUN 16, Creatinine 0.83, Glucose 121 H, Magnesium 2.0, Total Bilirubin 0.5, AST 25, ALT 56, Alkaline Phosphatase 43 Assessment and Plan - Problems (Diagnosis) (1) Chest pain Onset Date: 10/11/17 Current Visit: No Status: Acute Plan: Will monitor the patient overnight. Continue cardiac enzymes. Recent stress test showed no stress-induced ischemia. Will discuss case with cardiology who has been consulted. Qualifiers: Chest pain type: unspecified (2) Hypokalemia Onset Date: 10/11/17 Current Visit: No Status: Acute Plan: Will continue to monitor closely. Will replace electrolytes. (3) CAD (coronary artery disease) Onset Date: 10/11/17 Current Visit: No Status: Chronic Plan: Will continue with aspirin. Compliance with medications addressed in detail. Will discuss with cardiology. Qualifiers: (4) HLD (hyperlipidemia) Onset Date: 10/11/17 Current Visit: No Status: Chronic Plan: Will continue medication. Qualifiers: (5) HTN (hypertension) Onset Date: 10/11/17 Current Visit: No Status: Chronic Plan: Will continue with medication. Qualifiers: Hypertension type: essential hypertension (6) Nicotine dependence Onset Date: 10/11/17 Current Visit: No Status: Chronic Plan: Cessation education addressed. Qualifiers: (7) Obesity Current Visit: No Status: Chronic Plan: Will address lifestyle modification education Qualifiers: (8) COPD (chronic obstructive pulmonary disease) Onset Date: 10/11/17 Current Visit: No Status: Suspected Plan: Will continue with COPD treatment Qualifiers: (9) GERD (gastroesophageal reflux disease) Current Visit: No Status: Suspected Plan: Will continue with medication. Qualifiers: Discharge Plan: Home Plan to discharge in: 24 Hours - Advance Directives Does patient have a Living Will: No Does patient have a Durable POA for Healthcare: Yes - Code Status/Comfort Care Code Status Assessed: Yes Time Spent Managing Pts Care (In Minutes): 55
--- NOTE | 2017-11-24 18:42 | ER ---
Nurse's Notes [facility] Name: Juan Miguel Langston Age: 52 yrs Sex: Male : 1965 Arrival Date: 11/24/2017 Time: 14:33 Bed 14 Private MD: None, None Diagnosis: Chest pain, unspecified;Hypertensive heart disease Presentation: 11/24 14:34 Presenting complaint: EMS states: CP midsternal and left anterior side of chest, Left sg side radiates up neck and shoulder, pt reports similar episode about a month ago, was seen here and treated. Transition of care: patient was not received from another setting of care. Onset of symptoms was November 24, 2017. Risk Assessment: Do you want to hurt yourself or someone else? Patient reports no desire to harm self or others. Initial Sepsis Screen: Does the patient meet any 2 criteria? No. Patient's initial sepsis screen is negative. Does the patient have a suspected source of infection? No. Patient's initial sepsis screen is negative. Care prior to arrival: Medication(s) given: ASA, 81 mg, x 4, Oxygen administered. via nasal cannula. 14:34 Method Of Arrival: EMS: [facility] sg 14:34 Acuity: DESTINY 3 sg Historical: - Allergies: 14:38 NKA; sg - Home Meds: 14:38 Isosorbide Mononitrate Oral [Active]; Metoprolol Tartrate Oral [Active]; sg - PMHx: 14:38 Angina; High Cholesterol; Hypertension; Myocardial infarction; sg - PSHx: 14:38 None; sg - Immunization history:: Adult Immunizations up to date. - Social history:: Smoking status: Patient uses tobacco products. - Ebola Screening: : Patient negative for fever greater than or equal to 101.5 degrees Fahrenheit, and additional compatible Ebola Virus Disease symptoms Patient denies exposure to infectious person Patient denies travel to an Ebola-affected area in the 21 days before illness onset No symptoms or risks identified at this time. Screenin:46 Abuse screen: Denies threats or abuse. Denies injuries from another. Nutritional sg screening: No deficits noted. Tuberculosis screening: No symptoms or risk factors identified. Never had TB. Fall Risk None identified. Assessment: 14:46 General: Appears in no apparent distress. comfortable, well groomed, well developed, sg well nourished, Behavior is calm, cooperative, appropriate for age. Pain: Complains of pain in left jaw, anterior aspect of left upper chest and neck, left shoulder. Pain: Pain radiates to left side of neck, left jaw, left shoulder Noted to be grimacing. Neuro: Level of Consciousness is awake, alert, obeys commands, Oriented to person, place, time, Speech is normal. Cardiovascular: Heart tones S1 S2 present. Respiratory: Airway is patent Respiratory effort is even, unlabored, Respiratory pattern is regular, symmetrical, Breath sounds are clear. GI: No signs and/or symptoms were reported involving the gastrointestinal system. : No signs and/or symptoms were reported regarding the genitourinary system. EENT: No signs and/or symptoms were reported regarding the EENT system. Derm: Skin is pink, warm \\T\\ dry. Musculoskeletal: No deficits noted. 15:50 Reassessment: Patient appears in no apparent distress at this time. Patient and/or sg family updated on plan of care and expected duration. Pain level reassessed. Patient is alert, oriented x 3, equal unlabored respirations, skin warm/dry/pink. pt continues to c/o pain, pt reports " last time morphine worked, i dont think this was the right dose man, cause it just isnt working." pt remains at bedside, reports " yea it took double the dose to get his pain down." Héctor CHUN notified of pt pain, awaiting new orders at this time. 17:50 Reassessment: Patient appears in no apparent distress at this time. Patient and/or sg family updated on plan of care and expected duration. Pain level reassessed. Patient is alert, oriented x 3, equal unlabored respirations, skin warm/dry/pink. pt reports pain level decreased, reports feeling better. updated awaiting new orders, awaiting dispo. pt and pt family stated understanding, will continue to monitor Patient states feeling better. 18:50 Reassessment: Patient appears in no apparent distress at this time. Patient and/or sg family updated on plan of care and expected duration. Pain level reassessed. Patient is alert, oriented x 3, equal unlabored respirations, skin warm/dry/pink. awaiting admission orders at this time, awaiting evaluation by hospitalist, no new orders have been received, pt requesting food Patient states feeling better. 19:00 Pain: Pain began suddenly. bs1 19:10 Reassessment: Report received from NICCI Carver. bs1 19:10 General: Appears in no apparent distress. Behavior is calm, cooperative, appropriate bs1 for age. Pain: Complains of pain in patient reported pain to left anterior of chest and nexk and left shoulder, pain that radiated to left side of neck, left jaw, and left shoulder. Patient denies pain at this time. Neuro: Level of Consciousness is awake, alert, obeys commands, Oriented to person, place, time, Speech is normal, Facial symmetry appears normal. Cardiovascular: Heart tones S1 S2 present Capillary refill < 3 seconds Patient's skin is warm and dry. Respiratory: Airway is patent Trachea midline Respiratory effort is even, unlabored, Respiratory pattern is regular, symmetrical, Breath sounds are clear bilaterally. GI: No signs and/or symptoms were reported involving the gastrointestinal system. : No signs and/or symptoms were reported regarding the genitourinary system. EENT: No signs and/or symptoms were reported regarding the EENT system. Derm: Skin is intact, Skin is pink, warm \\T\\ dry. Musculoskeletal: Circulation, motion, and sensation intact. Capillary refill < 3 seconds, Range of motion: intact in all extremities. 20:15 Reassessment: No changes from previously documented assessment. Patient and/or family bs1 updated on plan of care and expected duration. Pain level reassessed. Patient is alert, oriented x 3, equal unlabored respirations, skin warm/dry/pink. Vital Signs: 14:45 BP 166 / 76; Pulse 105 MON; Resp 17; Temp 97.7; Pulse Ox 95% on R/A; Weight 113.4 kg; sg Height 5 ft. 10 in. (177.80 cm); Pain 6/10; 15:40 BP 145 / 73; Pulse 101; Resp 17 S; Pulse Ox 97% on R/A; sg 16:44 BP 142 / 74; Pulse 84 MON; Resp 17 S; Pulse Ox 97% on R/A; Pain 6/10; sg 18:41 BP 128 / 63; Pulse 85; Resp 16 S; Pulse Ox 96% on R/A; Pain 3/10; sg 19:16 BP 129 / 69; Pulse 77; Resp 16; Pulse Ox 97% on R/A; mt 20:00 BP 124 / 77; Pulse 80; Resp 16; Temp 98(O); Pulse Ox 94% on R/A; Pain 0/10; bs1 14:45 Body Mass Index 35.87 (113.40 kg, 177.80 cm) sg Alina Coma Score: 16:44 Eye Response: spontaneous(4). Verbal Response: oriented(5). Motor Response: obeys sg commands(6). Total: 15. 18:41 Eye Response: spontaneous(4). Verbal Response: oriented(5). Motor Response: obeys sg commands(6). Total: 15. ED Course: 14:33 Patient arrived in ED. sg 14:33 Mehul Deluca, RN is Primary Nurse. sg 14:36 Triage completed. sg 14:36 Arm band placed on. sg 14:46 Patient maintains SpO2 saturation greater than 95% on room air. sg 14:51 [facility] Gray [facility]. cp 14:51 Rashard Bardales MD is Attending Physician. cp 14:54 None, None is Private Physician. sb2 15:02 X-ray completed. Portable x-ray completed in exam room. Patient tolerated procedure mh1 well. 15:02 XRAY Chest (1 view) In Process Unspecified. EDMS 15:02 EKG done, by veterinary laboratory technician. reviewed by Lenard CHUN. at1 15:21 Patient has correct armband on for positive identification. Bed in low position. Call 5 light in reach. Side rails up X 1. night monitor on. Pulse ox on. NIBP on. 15:21 Initial lab(s) drawn, by sd, sent to lab. Inserted saline lock: 20 gauge in right 5 antecubital area, using aseptic technique. Blood collected. 18:41 Steve Bowden DO is Hospitalizing Provider. cp 20:11 No provider procedures requiring assistance completed. Patient admitted, IV remains in bs1 place. intact. Administered Medications: 15:35 Drug: morphine 2 mg Route: IVP; Site: right antecubital; sg 16:06 Follow up: Response: No adverse reaction; Pain is unchanged, physician notified sg 15:39 Drug: NS 0.9% 500 ml Route: IV; Rate: bolus; Site: right antecubital; sg 20:14 Follow up: IV Status: Completed infusion bs1 16:30 Drug: fentaNYL (PF) 25 mcg Route: IVP; Site: right antecubital; sg 20:14 Follow up: Response: No adverse reaction bs1 16:39 Drug: NS 0.9% 500 ml Route: IV; Rate: bolus; Site: right antecubital; sg 20:14 Follow up: IV Status: Completed infusion bs1 17:28 Drug: NS 0.9% 1000 ml Route: IV; Rate: 100 ml/hr; Site: right antecubital; sg 20:14 Follow up: IV Status: Infusion continued upon admission bs1 Outcome: 18:41 Decision to Hospitalize by Provider. cp 20:11 Admitted to Tele accompanied by tech, via wheelchair, room 428, with chart, Report bs1 called to NICCI James 20:11 Condition: stable 20:11 Instructed on the need for admit. 20:16 Patient left the ED. bs1 Signatures: Dispatcher [employer] EDMehul Valenzuela RN RN sg Gris Winter mh1 Thu lynn, rock climbing instructor EKG Tat1 Lenard Gray PA PA Fátima Meadows 5 [place], [facility] Bridgett Zhong RN RN bs1 Shu De La Rosa sb2 Corrections: (The following items were deleted from the chart) 20:15 20:12 Pain: Pain began suddenly, bs1 bs1
--- NOTE | 2017-11-24 18:42 | EDPHYS ---
Physician Documentation [facility] Name: Juan Miguel Langston Age: 52 yrs Sex: Male : 1965 Arrival Date: 11/24/2017 Time: 14:33 Bed 14 Private MD: None, None ED Physician Rashard Bardales HPI: 11/24 15:20 This 52 yrs old Male presents to ER via EMS with complaints of Chest Pain > cp 30 y/o. 15:20 The patient or guardian reports chest pain that is located primarily in the anterior cp chest wall, left. Onset: about 1 hour prior to arrival. The pain radiates to the left arm. 15:20 The chest pain is described as a pressure. Duration: The patient or guardian reports a cp single episode, that is still ongoing. 15:20 Associated signs and symptoms: Pertinent negatives: abdominal pain, cough, diaphoresis, cp dizziness, headache, lower extremity pain, lower extremity swelling, recent travel, shortness of breath, vomiting. Historical: - Allergies: 14:38 NKA; sg - Home Meds: 14:38 Isosorbide Mononitrate Oral [Active]; Metoprolol Tartrate Oral [Active]; sg - PMHx: 14:38 Angina; High Cholesterol; Hypertension; Myocardial infarction; sg - PSHx: 14:38 None; sg - Immunization history:: Adult Immunizations up to date. - Social history:: Smoking status: Patient uses tobacco products. - Ebola Screening: : Patient negative for fever greater than or equal to 101.5 degrees Fahrenheit, and additional compatible Ebola Virus Disease symptoms Patient denies exposure to infectious person Patient denies travel to an Ebola-affected area in the 21 days before illness onset No symptoms or risks identified at this time. ROS: 15:25 Constitutional: Negative for body aches, chills, fever, poor PO intake. cp 15:25 Eyes: Negative for injury, pain, redness, and discharge. cp 15:25 ENT: Negative for drainage from ear(s), ear pain, sore throat, difficulty swallowing, difficulty handling secretions. 15:25 Neck: Negative for pain with movement, pain at rest, stiffness, tenderness. 15:25 Cardiovascular: Positive for chest pain, Negative for edema, palpitations. 15:25 Respiratory: Negative for cough, shortness of breath, wheezing. 15:25 Abdomen/GI: Negative for abdominal pain, vomiting, diarrhea, constipation, black/tarry stool, rectal bleeding. 15:25 Back: Negative for radiated pain. 15:25 Skin: Negative for cellulitis, rash. 15:25 Neuro: Negative for altered mental status, headache, syncope, near syncope, weakness. 15:25 All other systems are negative. Exam: 15:30 Head/Face: Normocephalic, atraumatic. Eyes: Pupils equal round and reactive to light, cp extra-ocular motions intact. Lids and lashes normal. Conjunctiva and sclera are non-icteric and not injected. Cornea within normal limits. Periorbital areas with no swelling, redness, or edema. ENT: Nares patent. No nasal discharge, no septal abnormalities noted. Tympanic membranes are normal and external auditory canals are clear. Oropharynx with no redness, swelling, or masses, exudates, or evidence of obstruction, uvula midline. Mucous membranes moist. Neck: Trachea midline, no thyromegaly or masses palpated, and no cervical lymphadenopathy. Supple, full range of motion without nuchal rigidity, or vertebral point tenderness. No Meningismus. Chest/axilla: Normal chest wall appearance and motion. Nontender with no deformity. No lesions are appreciated. 15:30 Constitutional: The patient appears in no acute distress, alert, awake, non-diaphoretic, non-toxic, well developed, well nourished. 15:30 Cardiovascular: Rate: tachycardic, Rhythm: regular, Pulses: Pulses are 2+ in right cp radial artery and left radial artery. Edema: is not appreciated, JVD: is not appreciated. 15:30 Respiratory: the patient does not display signs of respiratory distress, Respirations: normal, no use of accessory muscles, no retractions, no splinting, no tachypnea, labored breathing, is not present, Breath sounds: are clear throughout, no decreased breath sounds, no stridor, no wheezing. 15:30 Abdomen/GI: Inspection: abdomen appears normal, Bowel sounds: active, all quadrants, Palpation: abdomen is soft and non-tender, in all quadrants, rebound tenderness, is not appreciated, voluntary guarding, is not appreciated, involuntary guarding, is not appreciated. Vital Signs: 14:45 BP 166 / 76; Pulse 105 MON; Resp 17; Temp 97.7; Pulse Ox 95% on R/A; Weight 113.4 kg; sg Height 5 ft. 10 in. (177.80 cm); Pain 6/10; 15:40 BP 145 / 73; Pulse 101; Resp 17 S; Pulse Ox 97% on R/A; sg 16:44 BP 142 / 74; Pulse 84 MON; Resp 17 S; Pulse Ox 97% on R/A; Pain 6/10; sg 18:41 BP 128 / 63; Pulse 85; Resp 16 S; Pulse Ox 96% on R/A; Pain 3/10; sg 19:16 BP 129 / 69; Pulse 77; Resp 16; Pulse Ox 97% on R/A; mt 20:00 BP 124 / 77; Pulse 80; Resp 16; Temp 98(O); Pulse Ox 94% on R/A; Pain 0/10; bs1 14:45 Body Mass Index 35.87 (113.40 kg, 177.80 cm) sg [place] Coma Score: 16:44 Eye Response: spontaneous(4). Verbal Response: oriented(5). Motor Response: obeys sg commands(6). Total: 15. 18:41 Eye Response: spontaneous(4). Verbal Response: oriented(5). Motor Response: obeys sg commands(6). Total: 15. MDM: 14:54 Patient medically screened. cp 16:00 Differential diagnosis: abnormal EKG, acute myocardial infarction, acute pericarditis, cp chest wall pain, gastroesophageal reflux disease (GERD), pancreatitis, pericarditis, pleurisy, pneumonia, pneumothorax, pulmonary embolus, stable angina, thoracic aortic disection, unstable angina. 16:00 The patient was not given aspirin in the Emergency Department. Administered by EMS. cp 17:30 Data reviewed: vital signs, nurses notes, lab test result(s), EKG, radiologic studies, cp plain films. 17:30 Test interpretation: by ED physician or midlevel provider: ECG, plain radiologic cp studies. 17:55 Physician consultation: Steve Bowden DO was contacted at 17:55, regarding admission, cp to the telemetry unit. patient's condition, and will see patient in ED, shortly. 11/24 14:51 Order name: Basic Metabolic Panel; Complete Time: 18:40 cp 11/24 17:27 Interpretation: Normal except: K 3.5; GLUC 121. cp 11/24 14:51 Order name: BNP 11/24 14:51 Order name: CBC with Diff; Complete Time: 17:05 11/24 17:06 Interpretation: Reviewed. 11/24 14:51 Order name: Ckmb; Complete Time: 18:40 cp / 14:51 Order name: CPK; Complete Time: 18:40 cp / 14:51 Order name: LFT's; Complete Time: 18:40 cp 11/24 14:51 Order name: Magnesium; Complete Time: 18:40 cp 11/24 14:51 Order name: PT-INR; Complete Time: 17:05 11/24 14:51 Order name: Ptt, Activated; Complete Time: 17:05 11/24 14:51 Order name: Troponin (emerg Dept Use Only); Complete Time: 17:05 11/24 17:05 Interpretation: TROPED < 0.03; Reviewed. 11/24 14:51 Order name: XRAY Chest (1 view); Complete Time: 17:05 11/24 16:29 Order name: Urine Dipstick--Ancillary (enter results); Complete Time: 17:05 11/24 14:51 Order name: EKG; Complete Time: 14:52 cp 11/24 14:51 Order name: Cardiac monitoring; Complete Time: 14:56 11/24 14:51 Order name: EKG - Nurse/Tech; Complete Time: 14:56 11/24 14:51 Order name: IV Saline Lock; Complete Time: 14:56 11/24 14:51 Order name: Labs collected and sent; Complete Time: 14:56 11/24 14:51 Order name: O2 Per Protocol; Complete Time: 14:56 cp 11/24 14:51 Order name: O2 Sat Monitoring; Complete Time: 14:56 11/24 14:51 Order name: Urine Dipstick-Ancillary (obtain specimen); Complete Time: 16:39 11/24 17:59 Order name: Social Service Consult EDMS Administered Medications: 15:35 Drug: morphine 2 mg Route: IVP; Site: right antecubital; sg 16:06 Follow up: Response: No adverse reaction; Pain is unchanged, physician notified sg 15:39 Drug: NS 0.9% 500 ml Route: IV; Rate: bolus; Site: right antecubital; sg 20:14 Follow up: IV Status: Completed infusion bs1 16:30 Drug: fentaNYL (PF) 25 mcg Route: IVP; Site: right antecubital; sg 20:14 Follow up: Response: No adverse reaction bs1 16:39 Drug: NS 0.9% 500 ml Route: IV; Rate: bolus; Site: right antecubital; sg 20:14 Follow up: IV Status: Completed infusion bs1 17:28 Drug: NS 0.9% 1000 ml Route: IV; Rate: 100 ml/hr; Site: right antecubital; sg 20:14 Follow up: IV Status: Infusion continued upon admission bs1 Disposition: 11/25 10:44 Co-signature as Attending Physician, Rashard Bardales MD I agree with the assessment and kdr plan of care. Disposition: 11/24/17 18:41 Hospitalization ordered by Steve Bowden for Observation. Preliminary diagnosis are Chest pain, unspecified, Hypertensive heart disease. - Bed requested for Telemetry/MedSurg (Inpatient). - Status is Observation. bs1 - Condition is Stable. - Problem is new. - Symptoms have improved. UTI on Admission? No Signatures: Dispatcher [employer] Magdalena Cortes RN RN dw Mehul Deluca RN RN sg Rittger, Kevin, MD MD kdr Lenard Gray PA PA cp Salazar, Brittany, RN RN bs1 Corrections: (The following items were deleted from the chart) 11/24 19:30 18:41 Hospitalization Ordered by Steve Bowden DO for Observation. Preliminary dw diagnosis is Chest pain, unspecified; Hypertensive heart disease. Bed requested for Telemetry/MedSurg (Inpatient). Status is Observation. Condition is Stable. Problem is new. Symptoms have improved. UTI on Admission? No. cp 20:16 19:30 11/24/2017 18:41 Hospitalization Ordered by Steve Bowden DO for Observation. bs1 Preliminary diagnosis is Chest pain, unspecified; Hypertensive heart disease. Bed requested for Telemetry/MedSurg (Inpatient). Status is Observation. Condition is Stable. Problem is new. Symptoms have improved. UTI on Admission? No. dw
[2017-11-24] MEDS ORDERED: ALBUTEROL 2.5 MG/3 ML NEB SOL NEB PRN (20:39)
[2017-11-24] MEDS ORDERED: IPRATROPIUM BROM 0.5MG/2.5ML NEB PRN (20:39)
[2017-11-24] MEDS ORDERED: ONDANSETRON 4 MG/2 ML VIAL IV PRN (20:39)
[2017-11-24] MEDS: ARFORMOTEROL TARTRATE 15 MCG/2 ML VIAL.NEB NEB SCH (20:39)
[2017-11-24] MEDS: NA CHLORIDE 0.9% 1,000 ML IV SCH (20:39)
[2017-11-24] MEDS ORDERED: TRAMADOL HCL 50 MG TAB PO PRN (20:39)
[2017-11-24] MEDS ORDERED: ACETAMINOPHEN 500 MG TAB PO PRN (20:39)
[2017-11-24] MEDS ORDERED: NITROGLYCERIN 0.4 MG/TAB SL PRN (20:39)
[2017-11-24] MEDS ORDERED: ATORVASTATIN 40 MG TAB PO SCH (21:00)
[2017-11-24 21:54] VITALS: BMI 32.3
[2017-11-24 22:14] LABS: Urine Appearance CLEAR; Urine Bilirubin NEGATIVE (NEG); Urine Blood NEGATIVE (NEG); Urine Color YELLOW; Urine Glucose NEGATIVE (NEG); Urine Protein NEGATIVE (NEG); Urine Urobilinogen 0.2 mg/dL (0.2-1.0)
[2017-11-24 22:32] LABS: Urine Microscopic Reflex NO UMIC
[2017-11-25 00:20] LABS: CKMB Creatine Kinase MB 2.7 ng/ml (0.3-4.0)
[2017-11-25 04:56] LABS: Absolute Lymphocytes (CBC) 1.8 K/uL (0.7-4.9); Absolute Monocytes 0.7 K/uL (0.1-1.3); Absolute Neutrophil 4.5 K/uL (1.8-8.0); Basophils % 0.5 % (0-1.3); Eosinophils % 3.1 % (0-4.4); Hematocrit 45.6 % (39.6-49.0); Lymphocytes % 25.3 % (15.3-44.8); MCH 30.8 pg (27.0-35.0); MCV 91.6 fL (80-100); MPV 9.5 fL (7.6-11.3); RBC Red Blood Cell Count 4.98 M/uL (4.33-5.43)
[2017-11-25 05:12] LABS: BUN Blood Urea Nitrogen 11 mg/dL (6-20); Bicarbonate 25 mEq/L (21-31); Glucose Level 112 mg/dL (65-120); Magnesium 1.9 mg/dL (1.8-2.5); Sodium Level 140 mEq/L (135-145)
[2017-11-25] MEDS: NA CHLORIDE 0.9% 1,000 ML IV SCH (06:06)
[2017-11-25] MEDS ORDERED: PANTOPRAZOLE 40MG TABLET PO SCH (06:30)
--- NOTE | 2017-11-25 06:57 | EKG ---
Test Date: 2017-11-24 Test Time: 14:55:32 Wood Heel Attacher: ANGELO MEASUREMENT RESULTS: Intervals: Rate: 96 HI: 144 QRSD: 104 QT: 336 QTc: 424 Kennard: P: 58 HI: 144 QRS: 47 T: -74 INTERPRETIVE STATEMENTS: Normal sinus rhythm ST & T wave abnormality, consider inferolateral ischemia Abnormal ECG Compared to ECG 10/10/2017 18:56:07 No significant changes Electronically Signed On 11-25-17 06:55:21 CDT by Nazario Anderson
[2017-11-25 08:11] LABS: CKMB Creatine Kinase MB 3.3 ng/ml (0.3-4.0)
[2017-11-25] MEDS: ARFORMOTEROL TARTRATE 15 MCG/2 ML VIAL.NEB NEB SCH (08:22)
[2017-11-25 08:41] VITALS: O2SAT 96
[2017-11-25] MEDS ORDERED: LISINOPRIL 20 MG TAB PO SCH (09:00)
[2017-11-25] MEDS ORDERED: ENOXAPARIN 40 MG/0.4 ML SQ SCH (09:00)
[2017-11-25] MEDS ORDERED: ASPIRIN EC 81 MG TAB PO SCH (09:00)
--- NOTE | 2017-11-25 12:13 | P.DS ---
Admission Date: 11/24/17 Discharge Date: 11/25/17 Primary Care Provider: Zechariah Disposition: ROUTINE DISCHARGE Discharge Condition: GOOD Reason for Admission: Chest pain - Problems (1) Chest pain Onset Date: 10/11/17 Current Visit: No Status: Acute Qualifiers: Chest pain type: unspecified (2) Hypokalemia Onset Date: 10/11/17 Current Visit: No Status: Acute (3) CAD (coronary artery disease) Onset Date: 10/11/17 Current Visit: No Status: Chronic Qualifiers: (4) HLD (hyperlipidemia) Onset Date: 10/11/17 Current Visit: No Status: Chronic Qualifiers: (5) HTN (hypertension) Onset Date: 10/11/17 Current Visit: No Status: Chronic Qualifiers: Hypertension type: essential hypertension (6) Nicotine dependence Onset Date: 10/11/17 Current Visit: No Status: Chronic Qualifiers: (7) Obesity Current Visit: No Status: Chronic Qualifiers: (8) COPD (chronic obstructive pulmonary disease) Onset Date: 10/11/17 Current Visit: No Status: Suspected Qualifiers: (9) GERD (gastroesophageal reflux disease) Current Visit: No Status: Suspected Qualifiers: Brief History of Present Illness: 52-year-old male presented emergency room with chest pain. Patient reported chest pain earlier today. The pain was in the substernal region. It radiated to the left side. No significant nausea or vomiting noted. He reports that he has not been compliant with his medication. Patient with history of hypertension, COPD, CAD, hyperlipidemia, GERD, and tobacco abuse. Patient recently hospitalized in October for similar issues. Patient had stress test at that time which showed no stress-induced ischemia. Ejection fraction was 42%. He was given medication and told to follow up. He reports that he is homeless. The only medication that he can afford is his blood pressure medication. In the ER he was evaluated. Initial cardiac enzymes unremarkable. Potassium 3.5, CBC unremarkable. Chest x-ray unremarkable. Due to the nature of his symptoms the patient was admitted for observation. The patient reports that he has been hot lately and mildly dehydrated since he is homeless. The wather outside has been poor. Hospital Course: Patient was monitored overnight. Patient presented with chest pain. Patient likely dehydrated. Patient given IV fluids. Patient much improved. Patient had recent cardiac stress test and echocardiogram in October. These were unremarkable. Patient non compliant with medication. Cardiac enzymes unremarkable. At discharge compliance with medications was addressed in detail. At discharge patient will continue with aspirin 81 mg daily. Patient we provided nitro to be use for chest pain as needed. Patient has underlying hypertension. Compliance addressed. At discharge patient will continue with lisinopril 20 mg 1 pill daily. Recommendation is to maintain blood pressures less 150/80. Further adjustment can be done by his PCP. Patient has hyperlipidemia. Patient will continue with lovastatin 40 mg 1 pill once daily. Patient has COPD. Patient will be provided medication for this. Social work with did meet with the patient prior to discharge. Patient be given contact formation to establish care with a PCP to continue his care. Information on patient assistance on medications will be provided as well. Patient has GERD. Patient continue with Prilosec over the counter once daily. Tobacco cessation education will be provided. Vital Signs/Physical Exam: Temp Pulse Resp BP Pulse Ox 97.4 F 76 18 153/80 H 98 11/25/17 08:20 11/25/17 10:27 11/25/17 08:20 11/25/17 10:27 11/25/17 08:20 General: Alert, In no apparent distress, Oriented x3, Cooperative HEENT: Atraumatic Neck: Supple Respiratory: Clear to auscultation bilaterally, Normal air movement Cardiovascular: Normal pulses, Regular rate/rhythm Gastrointestinal: Normal bowel sounds, Soft and benign, Non-distended, No tenderness, No masses, No rebound, No guarding Musculoskeletal: No erythema, No tenderness, No warmth Integumentary: No tenderness/swelling, No erythema, No warmth, No cyanosis Neurological: Normal speech, Normal strength at 5/5 x4 extr, Normal tone, Normal affect Lymphatics: No axilla or inguinal lymphadenopathy Laboratory Data at Discharge: WBC 7.2 K/uL (4.3-10.9) 11/25/17 04:15 Hgb 15.4 g/dL (13.6-17.9) 11/25/17 04:15 Hct 45.6 % (39.6-49.0) 11/25/17 04:15 Plt Count 206 K/uL (152-406) 11/25/17 04:15 PT 11.7 SECONDS (9.5-12.5) 11/24/17 15:00 INR 0.99 11/24/17 15:00 APTT 25.1 SECONDS (24.3-36.9) 11/24/17 15:00 Sodium 140 mEq/L (135-145) 11/25/17 04:15 Potassium 4.0 mEq/L (3.6-5.0) 11/25/17 04:15 BUN 11 mg/dL (6-20) 11/25/17 04:15 Creatinine 0.75 mg/dL (0.61-1.24) 11/25/17 04:15 Glucose 112 mg/dL (65-120) 11/25/17 04:15 Magnesium 1.9 mg/dL (1.8-2.5) 11/25/17 04:15 Total Bilirubin 0.5 mg/dL (0.3-1.2) 11/24/17 15:00 AST 25 IU/L (10-42) 11/24/17 15:00 ALT 56 IU/L (10-60) 11/24/17 15:00 Alkaline Phosphatase 43 IU/L (42-121) 11/24/17 15:00 Troponin I < 0.03 ng/mL (<0.03) 11/25/17 06:50 B-Natriuretic Peptide < 10 pg/ml (<=100) 11/24/17 15:00 Home Medications: Albuterol Sulfate [Proair Hfa] 8.5 gm IH TID PRN #1 hfa.aer.ad 11/25/17 Aspirin [Aspirin EC 81 MG] 81 mg PO DAILY #90 tablet. 11/25/17 Fluticasone/Salmeterol [Airduo Respiclick 113-14 Mcg] 1 each IH BID #1 aer.pow.ba 11/25/17 Lisinopril [Prinivil*] 20 mg PO DAILY 30 Days #30 tab 11/25/17 Lovastatin 40 mg PO DAILY #30 tablet 11/25/17 Nitroglycerin [Nitrostat*] 0.4 mg SL UD PRN #30 tab 11/25/17 New Medications: Albuterol Sulfate [Proair Hfa] 8.5 gm IH TID PRN #1 hfa.aer.ad PRN Reason: Shortness Of Breath Aspirin [Aspirin EC 81 MG] 81 mg PO DAILY #90 tablet. Fluticasone/Salmeterol [Airduo Respiclick 113-14 Mcg] 1 each IH BID #1 aer.pow.ba Lisinopril [Prinivil*] 20 mg PO DAILY 30 Days #30 tab Lovastatin 40 mg PO DAILY #30 tablet Nitroglycerin [Nitrostat*] 0.4 mg SL UD PRN #30 tab PRN Reason: Chest Pain Patient Discharge Instructions: 1. Patient will need to establish care with a PCP to continue his care. Recommendation is to follow up in 1-2 weeks. 2. Patient presented with chest pain. Cardiac enzymes unremarkable. Recent cardiac stress test showed no stress-induced ischemia. At discharge, compliance with medications was addressed in detail. At discharge patient will continue with aspirin 81 mg daily. Patient will be provided nitro to be use for chest pain as needed. 3. Patient has underlying hypertension. Compliance addressed. At discharge patient will continue with lisinopril 20 mg 1 pill daily. Recommendation is to maintain blood pressures less 150/80. Further adjustment can be done by his PCP. 4. Patient has hyperlipidemia. Patient will continue with lovastatin 40 mg 1 pill once daily. 5. Patient has COPD. Patient will be provided medication-Airduo 1 puff twice daily and Proair HFA 2 puffs 3 times a day as needed for shortness of breath. 6. Patient has GERD. Patient continue with Prilosec over the counter once daily. 7. Tobacco cessation education will be provided. Diet: AHA Activity: Fall precautions Time spent managing pt's care (in minutes): 55
[2017-11-25 12:49] VITALS: BP 126/75; TEMP 98.6
--- NOTE | 2017-11-25 13:13 | CON ---
Date of Consultation: 11/25/2017 Admitted on 11/24/2017. I saw the patient on 11/25/2017. Reason For Consultation: Atypical chest pain and palpitation. History Of Present Illness: Mr. Langston is a 52-year-old male has a history of hypertension, noncom pliance, dyslipidemia, gastroesophageal reflux disease. Had claimed that when found that he had smal l artery disease, however a heart catheterization in October 2016 I believe showed normal coronary with out any evidence of CAD or stent. He comes in with a little bit rapid heartbeat, atypical chest pain , sharp. No nausea, vomiting, diaphoresis, PND, orthopnea, pedal edema, or syncope. He is supposed to be sensitive to beta-blockers. Review of Systems: Negative. Social History: Positive for noncompliance. Family History: Noncontributory. Medications: At home include aspirin, Lipitor, lisinopril, Protonix. Physical Examination: Vital Signs: Stable. Afebrile. HEENT: Negative. Neck: Supple. No bruit. Chest: Clear. Cardiac exam: Normal. Abdomen: Benign. Extremities: Revealed no clubbing, cyanosis, or edema. Diagnostic Data: All normal. Impression And Plan: 1.Atypical chest pain, palpitations, possibly secondary to noncompliance. The patient said he drink s 3 cups of coffee in the morning. He was started on beta-aly yesterday and had a 2 second pause on that dose that may be why it was stopped. When he does have bradycardia in the past and pauses, he is asymptomatic with it. I would definitely not embark in any cardiac workup. He has had a negat warren CT, negative echo negative chest x-ray, negative troponin. His EKG showed nonspecific changes in feriorly. I would still send him home on a low-dose beta aly in addition to his regimen and he c an go home whenever it is okay with Dr. Bowden. ROSSY/SARAH BETH Voice ID: [id number] Report ID: [id number]
== END 2017-11-25 13:00 | disposition home or self-care (01) ==
LOC: ER 14:33 → ERHOLD 18:59 → 4TH 19:46
PROVIDERS: ADMIT Family Medicine; ATTEND Physician Assistant
DX: R07.89 Other chest pain (principal); E87.6 Hypokalemia; I25.10 Atherosclerotic heart disease of native coronary artery without angina pectoris; I10 Essential (primary) hypertension; J44.9 Chronic obstructive pulmonary disease, unspecified; E78.5 Hyperlipidemia, unspecified; K21.9 Gastro-esophageal reflux disease without esophagitis; F17.200 Nicotine dependence, unspecified, uncomplicated; R00.2 Palpitations; Z91.19 Patient's noncompliance with other medical treatment and regimen
CPT/HCPCS: 36415; 71045; 80048; 80076; 81003; 82550; 82553; 83735; 83880; 84484; 85025; 85610; 85730; 93005; 94640; 96361; 96374; 96375; 99285; G0378; J1650; J2405; J3010; J7030; J7605

== ENCOUNTER 2018-02-08 15:30 | Observation (INO) | payer OTHER, SELFPAY ==
[2018-02-08 16:29] LABS: Absolute Lymphocytes (CBC) 1.4 K/uL (0.7-4.9); Absolute Monocytes 0.3 K/uL (0.1-1.3); Absolute Neutrophil 5.1 K/uL (1.8-8.0); Basophils % 0.5 % (0-1.3); Hematocrit 48.3 % (39.6-49.0); Lymphocytes % 20.5 % (15.3-44.8); MCH 31.6 pg (27.0-35.0); MCV 92.5 fL (80-100); MPV 9.7 fL (7.6-11.3); Monocytes % 4.5 % (3.3-12.3); Protime INR 1.09; RBC Red Blood Cell Count 5.22 M/uL (4.33-5.43)
[2018-02-08 16:49] LABS: Magnesium 2.2 mg/dL (1.8-2.4); Potassium 3.6 mmol/L (3.5-5.1)
--- NOTE | 2018-02-08 16:56 | RAD REPORT ---
EXAM DESCRIPTION: RAD - Chest Single View - 02/08/2018 4:42 pm CLINICAL HISTORY: Chest pain COMPARISON: November 24 TECHNIQUE: AP portable chest image was obtained 1639 hours . FINDINGS: Lungs are clear. Heart and vasculature are normal. No measurable pleural effusion and no p neumothorax. No gross bony abnormality seen. No acute aortic findings suspected. IMPRESSION: No acute cardiopulmonary process. No significant change from comparison.
--- NOTE | 2018-02-08 17:05 | EKG ---
Test Date: 2018-02-08 Test Time: 15:50:55 Magnetic Doctor: ANGELO MEASUREMENT RESULTS: Intervals: Rate: 101 SC: 144 QRSD: 88 QT: 338 QTc: 438 [place]: P: 43 SC: 144 QRS: 51 T: -65 INTERPRETIVE STATEMENTS: Sinus tachycardia ST & T wave abnormality, consider inferolateral ischemia Abnormal ECG Compared to ECG 11/24/2017 14:55:32 Sinus rhythm no longer present ST (T wave) deviation still present Electronically Signed On 02-08-18 17:04:02 CDT by Eduardo Hernandes
[2018-02-08] MEDS ORDERED: LORazepam 2 MG/ML VIAL ONE (17:31)
[2018-02-08] MEDS ORDERED: FENTANYL CITR 100 MCG/2 ML ONE (17:31)
[2018-02-08] MEDS ORDERED: NITROGLYCERIN 0.4 MG/TAB SL ONE (18:28)
--- NOTE | 2018-02-08 18:56 | EDPHYS ---
Physician Documentation [facility] Name: Juan Miguel Langston Age: 52 yrs Sex: Male : 1965 Arrival Date: 02/08/2018 Time: 15:41 Bed 20 Private MD: ED Physician Nate Donald HPI: 02/08 16:46 This 52 yrs old Male presents to ER via EMS with complaints of High Blood jr8 Pressure. 16:46 The patient has elevated blood pressure and discovered this Fire station. Onset: The jr8 symptoms/episode began/occurred acutely, today. Modifying factors: The symptoms are aggravated by activity. Associated signs and symptoms: The patient has no apparent associated signs or symptoms. Severity of symptoms: At its worst the blood pressure was moderate, in the emergency department the blood pressure is improved. It is unknown whether or not the patient has had similar symptoms in the past. The patient has not recently seen a physician. Patient stated that he went to the fire station to get his blood pressure checked because he had not checked it in a while. Stated that it was in the 200s at that time. That he became very nervous about it and started to have chest pain. Came to ED at that time . Historical: - Allergies: 15:45 NKA; jl7 - Home Meds: 15:45 Isosorbide Mononitrate Oral [Active]; Metoprolol Tartrate Oral [Active]; jl7 - PMHx: 15:45 Angina; High Cholesterol; Hypertension; Myocardial infarction; jl7 - Immunization history:: Adult Immunizations up to date. - Social history:: Smoking status: Patient uses tobacco products, smokes one-half pack cigarettes per day. - Ebola Screening: : No symptoms or risks identified at this time. ROS: 16:46 Eyes: Negative for injury, pain, redness, and discharge, ENT: Negative for injury, jr8 pain, and discharge, Neck: Negative for injury, pain, and swelling, Respiratory: Negative for shortness of breath, cough, wheezing, and pleuritic chest pain, Abdomen/GI: Negative for abdominal pain, nausea, vomiting, diarrhea, and constipation, Back: Negative for injury and pain, MS/Extremity: Negative for injury and deformity, Skin: Negative for injury, rash, and discoloration, Neuro: Negative for headache, weakness, numbness, tingling, and seizure. 16:46 Cardiovascular: Positive for chest pain, Negative for edema, orthopnea, palpitations, paroxysmal nocturnal dyspnea. Exam: 16:46 Eyes: Pupils equal round and reactive to light, extra-ocular motions intact. Lids and jr8 lashes normal. Conjunctiva and sclera are non-icteric and not injected. Cornea within normal limits. Periorbital areas with no swelling, redness, or edema. ENT: Nares patent. No nasal discharge, no septal abnormalities noted. Tympanic membranes are normal and external auditory canals are clear. Oropharynx with no redness, swelling, or masses, exudates, or evidence of obstruction, uvula midline. Mucous membranes moist. Neck: Trachea midline, no thyromegaly or masses palpated, and no cervical lymphadenopathy. Supple, full range of motion without nuchal rigidity, or vertebral point tenderness. No Meningismus. Cardiovascular: Regular rate and rhythm with a normal S1 and S2. No gallops, murmurs, or rubs. Normal PMI, no JVD. No pulse deficits. Respiratory: Lungs have equal breath sounds bilaterally, clear to auscultation and percussion. No rales, rhonchi or wheezes noted. No increased work of breathing, no retractions or nasal flaring. Abdomen/GI: Soft, non-tender, with normal bowel sounds. No distension or tympany. No guarding or rebound. No evidence of tenderness throughout. Back: No spinal tenderness. No costovertebral tenderness. Full range of motion. Skin: Warm, dry with normal turgor. Normal color with no rashes, no lesions, and no evidence of cellulitis. MS/ Extremity: Pulses equal, no cyanosis. Neurovascular intact. Full, normal range of motion. Neuro: Awake and alert, GCS 15, oriented to person, place, time, and situation. Cranial nerves II-XII grossly intact. Motor strength 5/5 in all extremities. Sensory grossly intact. Cerebellar exam normal. Normal gait. Vital Signs: 15:45 BP 156 / 88; Pulse 106; Resp 20 S; Temp 99(O); Pulse Ox 97% on R/A; Weight 99.79 kg jl7 (R); Height 5 ft. 6 in. (167.64 cm) (R); Pain 6/10; 16:30 BP 144 / 75; Pulse 89; Resp 16; Pulse Ox 97% ; jl7 17:15 BP 127 / 77; Pulse 92; Resp 16 S; Pulse Ox 97% on R/A; jl7 18:27 BP 139 / 86; Pulse 84; Resp 16; Pulse Ox 96% on R/A; mh5 18:35 BP 125 / 61; Pulse 93; Resp 16 S; Temp 99(O); Pulse Ox 100% on R/A; Pain 7/10; jl7 19:00 BP 139 / 73; Pulse 92; Resp 20 S; Pulse Ox 97% on R/A; jd3 19:53 BP 146 / 82; Pulse 82; Resp 18 S; Pulse Ox 96% on R/A; Pain 6/10; jd3 15:45 Body Mass Index 35.51 (99.79 kg, 167.64 cm) jl7 MDM: 15:43 Patient medically screened. jr8 18:55 Data reviewed: vital signs, nurses notes, lab test result(s), EKG, radiologic studies, jr8 plain films, and as a result, I will admit patient. Data interpreted: Pulse oximetry: on room air is 100 %. Interpretation: normal. Counseling: I had a detailed discussion with the patient and/or guardian regarding: the historical points, exam findings, and any diagnostic results supporting the discharge/admit diagnosis, lab results, radiology results, the need for further work-up and treatment in the hospital. 02/08 16:01 Order name: Basic Metabolic Panel; Complete Time: 17:08 02/08 16:01 Order name: CBC with Diff; Complete Time: 16:41 02/08 16:01 Order name: Magnesium; Complete Time: 17:08 02/08 16:01 Order name: NT PRO-BNP; Complete Time: 17:08 02/08 16:01 Order name: PT-INR; Complete Time: 16:41 02/08 16:01 Order name: Troponin (emerg Dept Use Only); Complete Time: 17:08 02/08 16:01 Order name: XRAY Chest (1 view); Complete Time: 17:08 02/08 16:01 Order name: EKG; Complete Time: 16:02 02/08 18:30 Order name: Troponin (emerg Dept Use Only); Complete Time: 19:05 [facility] 02/08 19:05 Order name: [facility] EDIL 02/08 16:01 Order name: Cardiac monitoring; Complete Time: 16:23 02/08 16:01 Order name: EKG - Nurse/Tech; Complete Time: 16:52 02/08 16:01 Order name: IV Saline Lock; Complete Time: 16:23 02/08 16:01 Order name: Labs collected and sent; Complete Time: 16:24 [facility] 02/08 16:02 Order name: O2 Per Protocol; Complete Time: 16:02/08 16:02 Order name: O2 Sat Monitoring; Complete Time: 16:52 02/08 16:02 Order name: Urine Dipstick-Ancillary (obtain specimen); Complete Time: : Administered Medications: 17:30 Drug: fentaNYL (PF) 50 mcg Route: IVP; Site: right antecubital; jl7 18:00 Follow up: Response: No adverse reaction; Pain is decreased jl7 17:33 Drug: Ativan 0.5 mg Route: IVP; Site: right antecubital; jl7 18:00 Follow up: Response: No adverse reaction; Pain is decreased jl7 18:28 Drug: Nitrostat 0.4 mg Route: Sublingual; jl7 18:42 Follow up: Response: No adverse reaction; Pain is unchanged, physician notified jl7 18:50 Drug: Nitroglycerin 0.4 mg Route: Sublingual; jl7 19:29 Follow up: Response: No adverse reaction jd3 Disposition: 02/09 07:09 Co-signature as Attending Physician, Nate Donald MD. rn Disposition: 02/08/18 18:55 Hospitalization ordered by Kranthi Bloom for Observation. Preliminary diagnosis is Chest pain, unspecified. - Bed requested for Telemetry/MedSurg (observation). - Status is Observation. jd3 - Condition is Stable. - Problem is new. - Symptoms have improved. UTI on Admission? No Signatures: Dispatcher [employer] [facility] Liat Beltre RN RN kl Nieto, Roman, MD MD rn Roszak, Josh, PA PA jr8 Redd Hunt RN RN jl7 Hardeep Kirkpatrick RN RN jd3 Corrections: (The following items were deleted from the chart) 02/08 19:39 18:55 Hospitalization Ordered by Kranthi Bloom MD for Observation. Preliminary kl diagnosis is Chest pain, unspecified. Bed requested for Telemetry/MedSurg (observation). Status is Observation. Condition is Stable. Problem is new. Symptoms have improved. UTI on Admission? No. jr8 20:26 19:39 02/08/2018 18:55 Hospitalization Ordered by Kranthi Bloom MD for Observation. jd3 Preliminary diagnosis is Chest pain, unspecified. Bed requested for Telemetry/MedSurg (observation). Status is Observation. Condition is Stable. Problem is new. Symptoms have improved. UTI on Admission? No. kl
--- NOTE | 2018-02-08 18:56 | ER ---
Nurse's Notes [facility] Name: Juan Miguel Langston Age: 52 yrs Sex: Male : 1965 Arrival Date: 02/08/2018 Time: 15:41 Bed 20 Private MD: Diagnosis: Chest pain, unspecified Presentation: 02/08 15:42 Presenting complaint: EMS states: Pt rang the doorbell at the station and requested for jl7 BP to be checked. Original was 179/117, no complaints of chest pain, just c/o feeling jittery. HR was 120. Transition of care: patient was not received from another setting of care. Onset of symptoms was February 08, 2018. Risk Assessment: Do you want to hurt yourself or someone else? Patient reports no desire to harm self or others. Initial Sepsis Screen: Does the patient meet any 2 criteria? No. Patient's initial sepsis screen is negative. Does the patient have a suspected source of infection? No. Patient's initial sepsis screen is negative. Care prior to arrival: None. 15:42 Method Of Arrival: EMS: [facility] jl7 15:42 Acuity: DESTINY 3 jl7 Triage Assessment: 15:45 General: Appears in no apparent distress. uncomfortable, Behavior is calm, cooperative, jl7 appropriate for age. Pain: Complains of pain in mid-sternal area Pain radiates to right breast and left breast Pain currently is 6 out of 10 on a pain scale. Quality of pain is described as stabbing, Pain began years ago. Is continuous. EENT: No signs and/or symptoms were reported regarding the EENT system. Neuro: Level of Consciousness is awake, alert, obeys commands, Oriented to person, place, time, situation. Cardiovascular: Patient's skin is warm and dry. Respiratory: Airway is patent Respiratory effort is even, unlabored, Respiratory pattern is regular, symmetrical, Denies shortness of breath. GI: No signs and/or symptoms were reported involving the gastrointestinal system. Patient currently denies diarrhea, nausea, vomiting. : No signs and/or symptoms were reported regarding the genitourinary system. Denies burning with urination. Derm: Skin is pink, warm \\T\\ dry. Musculoskeletal: No signs and/or symptoms reported regarding the musculoskeletal system. Historical: - Allergies: 15:45 NKA; jl7 - Home Meds: 15:45 Isosorbide Mononitrate Oral [Active]; Metoprolol Tartrate Oral [Active]; jl7 - PMHx: 15:45 Angina; High Cholesterol; Hypertension; Myocardial infarction; jl7 - Immunization history:: Adult Immunizations up to date. - Social history:: Smoking status: Patient uses tobacco products, smokes one-half pack cigarettes per day. - Ebola Screening: : No symptoms or risks identified at this time. Screenin:49 Abuse screen: Denies threats or abuse. Denies injuries from another. Nutritional jl7 screening: No deficits noted. Tuberculosis screening: No symptoms or risk factors identified. Fall Risk None identified. Assessment: 15:49 General: See triage assessment. jl7 16:30 Reassessment: No changes from previously documented assessment. Patient and/or family jl7 updated on plan of care and expected duration. Pain level reassessed. Patient is alert, oriented x 3, equal unlabored respirations, skin warm/dry/pink. 17:15 Reassessment: Pt requesting something for pain, ERP notified, See MAR for orders. jl7 18:00 Reassessment: Pt reports decreased pain at this time. jl7 18:25 Reassessment: Pt reports increased pain, ERP notified, see MAR for orders. jl7 18:43 Reassessment: Pt laying in bed with eyes closed, respirations even and unlabored. Woke [facility] pt up and ask how his pain is, pt reports "It's a little better. It's about a 6 now.". 18:50 Reassessment: Provider notified of continued chest pain, see MAR for orders. jl 19:01 Reassessment: Patient appears in no apparent distress at this time. No changes from jd3 previously documented assessment. Patient and/or family updated on plan of care and expected duration. Pain level reassessed. Patient is alert, oriented x 3, equal unlabored respirations, skin warm/dry/pink. 19:54 Reassessment: Patient appears in no apparent distress at this time. No changes from jd3 previously documented assessment. Patient and/or family updated on plan of care and expected duration. Pain level reassessed. Patient is alert, oriented x 3, equal unlabored respirations, skin warm/dry/pink. tried to call report to 4th floor, nurse busy at current time. Vital Signs: 15:45 BP 156 / 88; Pulse 106; Resp 20 S; Temp 99(O); Pulse Ox 97% on R/A; Weight 99.79 kg jl7 (R); Height 5 ft. 6 in. (167.64 cm) (R); Pain 6/10; 16:30 BP 144 / 75; Pulse 89; Resp 16; Pulse Ox 97% ; jl7 17:15 BP 127 / 77; Pulse 92; Resp 16 S; Pulse Ox 97% on R/A; jl7 18:27 BP 139 / 86; Pulse 84; Resp 16; Pulse Ox 96% on R/A; mh5 18:35 BP 125 / 61; Pulse 93; Resp 16 S; Temp 99(O); Pulse Ox 100% on R/A; Pain 7/10; jl7 19:00 BP 139 / 73; Pulse 92; Resp 20 S; Pulse Ox 97% on R/A; jd3 19:53 BP 146 / 82; Pulse 82; Resp 18 S; Pulse Ox 96% on R/A; Pain 6/10; jd3 15:45 Body Mass Index 35.51 (99.79 kg, 167.64 cm) jl7 ED Course: 15:41 Patient arrived in ED. jl7 15:43 Rigoberto Godoy PA is [facility]. jr8 15:43 Nate Donald MD is Attending Physician. jr8 15:44 Triage completed. jl7 15:45 Arm band placed on right wrist. jl7 15:49 Patient has correct armband on for positive identification. Placed in gown. Bed in low jl7 position. Call light in reach. Side rails up X 1. secured entrance monitor on. Pulse ox on. NIBP on. Warm blanket given. 15:58 EKG done, by manager technical services. reviewed by Rigoberto CHUN. 3 16:22 Initial lab(s) drawn, by wa, sent to lab. Inserted saline lock: 20 gauge in right 5 antecubital area, using aseptic technique. Blood collected. 16:23 Basic Metabolic Panel Sent. 5 16:23 CBC with Diff Sent. [facility] 16:23 Magnesium Sent. 5 16:23 NT PRO-BNP Sent. [facility] 16:23 PT-INR Sent. [facility] 16:23 Troponin (emerg Dept Use Only) Sent. 5 16:32 X-ray completed. Portable x-ray completed in exam room. Patient tolerated procedure ml well. 16:33 XRAY Chest (1 view) In Process Unspecified. EDMS 16:51 Julia Posada RN is Primary Nurse. aa5 17:37 Primary Nurse role handed off by Julia Posada RN 7 17:37 Redd Hunt RN is Primary Nurse. jl7 18:55 Kranthi Bloom MD is Hospitalizing Provider. jr8 18:59 Primary Nurse role handed off by Redd Hunt RN jd3 18:59 Hardeep Kirkpatrick, NICCI is Primary Nurse. jd3 19:40 No provider procedures requiring assistance completed. Patient admitted, IV remains in jd3 place. Administered Medications: 17:30 Drug: fentaNYL (PF) 50 mcg Route: IVP; Site: right antecubital; jl7 18:00 Follow up: Response: No adverse reaction; Pain is decreased 7 17:33 Drug: Ativan 0.5 mg Route: IVP; Site: right antecubital; jl7 18:00 Follow up: Response: No adverse reaction; Pain is decreased jl7 18:28 Drug: Nitrostat 0.4 mg Route: Sublingual; jl7 18:42 Follow up: Response: No adverse reaction; Pain is unchanged, physician notified jl7 18:50 Drug: Nitroglycerin 0.4 mg Route: Sublingual; jl7 19:29 Follow up: Response: No adverse reaction j Outcome: 18:55 Decision to Hospitalize by Provider. [facility] 20:10 Admitted to Tele accompanied by tech, via wheelchair, room 421, with chart, Report jd3 called to Mikki GRAJEDA 20:10 Condition: stable 20:10 Instructed on the need for admit, Demonstrated understanding of instructions. 20:26 Patient left the ED. j Signatures: Dispatcher [employer] EDMS Nhung Obregon Audri, NICCI GRAJEDA aa5 Rigoberto Godoy PA PA jr8 Martinez, Maria Redd Hwang RN RN jl7 Hardeep Kirkpatrick RN RN jd3 Katya Lima [facility] Corrections: (The following items were deleted from the chart) 18:28 18:27 Response: No adverse reaction; Pain is decreased jl7 jl7
--- NOTE | 2018-02-08 20:40 | P.HP ---
Certification for Inpatient Patient admitted to: Observation With expected LOS: <2 Midnights Practitioner: I am a practitioner with admitting privileges, knowledge of patient current condition, hospital course, and medical plan of care. Services: Services provided to patient in accordance with Admission requirements found in Title 42 Section 412.3 of the Code of Federal Regulations Patient History Date of Service: 02/08/18 Reason for admission: Chest pain History of Present Illness: Mr. Langston is a 62-year-old male with history of coronary artery disease, with previous workup in this hospital including NM stress test which showed a fixed defect in inferior wall, echocardiogram reported normal LV function with an EF estimated at 60% without wall motion abnormalities. He also has history of tobacco abuse, hypertension and dyslipidemia. Today he went to have his blood pressure check out in an outpatient clinic, and he was found to be hypertensive, BP 200/112. At this point he was asymptomatic, and then he was transferred by ambulance to the ER for farther evaluation. There in the treat to the hospital, he become a little anxious, and start to complain of chest pain. It was located substernally radiated to his left side of chest associated with mild shortness of breath. Intensity 7/10, described it as stabbing sensation. Denied any nausea, vomiting, dizziness or diaphoretic episodes. He received nitro sublingual without pain relief. Subsequently pain was improving after being treated with IV morphine. Allergies Beta-Blockers (Beta-Adrenergic Bloc Adverse Reaction (Verified 10/09/17 11:30) Anaphylaxis metoprolol Adverse Reaction (Verified 10/10/17 06:56) Anaphylaxis No Known Allergies Allergy (Uncoded 10/10/17 20:05) Unknown Home medications list reviewed: Yes Home Medications: Albuterol Sulfate [Proair Hfa] 8.5 gm IH TID PRN #1 hfa.aer.ad 11/25/17 Aspirin [Aspirin EC 81 MG] 81 mg PO DAILY #90 tablet. 11/25/17 Fluticasone/Salmeterol [Airduo Respiclick 113-14 Mcg] 1 each IH BID #1 aer.pow.ba 11/25/17 Lisinopril [Prinivil*] 20 mg PO DAILY 30 Days #30 tab 11/25/17 Lovastatin 40 mg PO DAILY #30 tablet 11/25/17 Nitroglycerin [Nitrostat*] 0.4 mg SL UD PRN #30 tab 11/25/17 - Past Medical/Surgical History Diabetic: No -: Angina -: HTN -: Hyperlipidemia -: Tobacco abuse -: CAD -: COPD -: GERD -: Noncompliance with medication and follow up -: CARDIAC CATH 12/2013 NO STENTS 30% BLOCKAGE PER PT -: Cardiac stress tests October 2017 showed no stress-induced ischemia Psychosocial/ Personal History: Patient is single. Patient is homeless. - Family History MOM -: Heart disease, Other (see notes) Notes: MASSIVE [place] 61YR and arthritis DAD -: Heart disease, Other (see notes) Notes: POOR CIRCULATION TO LEGS PER PT - Social History Smoking Status: Current every day smoker Counseled patient to stop smoking for: less than 10 minutes Smoking therapy provided: Yes Patient receptive to therapy: No Alcohol use: Yes CD- Drugs: No Caffeine use: Yes Place of Residence: Home Review of Systems 10-point ROS is otherwise unremarkable Physical Examination - Vital Signs Temperature: 99 F Blood Pressure: 139/86 Pulse: 84 Respirations: 16 - Physical Exam General: Alert, In no apparent distress HEENT: Atraumatic, PERRLA, Mucous membr. moist/pink, EOMI, Sclerae nonicteric Neck: Supple, 2+ carotid pulse no bruit, No LAD, Without JVD or thyroid abnormality Respiratory: Clear to auscultation bilaterally, Normal air movement Cardiovascular: Regular rate/rhythm, Normal S1 S2 Gastrointestinal: Normal bowel sounds, No tenderness Musculoskeletal: Tenderness (Tender to palpation in sternal area, reproducing his complaining chest pain.) Integumentary: No rashes Neurological: Normal gait, Normal speech, Normal strength at 5/5 x4 extr, Normal tone, Normal affect Lymphatics: No axilla or inguinal lymphadenopathy - Studies Laboratory Data (last 24 hrs) 02/08/18 16:15: PT 12.9 H, INR 1.09 02/08/18 16:15: WBC 7.0, Hgb 16.5, Hct 48.3, Plt Count 248 02/08/18 16:15: Sodium 141, Potassium 3.6, BUN 11, Creatinine 1.00, Glucose 166 H, Magnesium 2.2 Assessment and Plan - Problems (Diagnosis) (1) Chest pain Onset Date: 10/11/17 Current Visit: No Status: Acute Qualifiers: Chest pain type: unspecified (2) CAD (coronary artery disease) Onset Date: 10/11/17 Current Visit: No Status: Chronic Qualifiers: Coronary Disease-Associated Artery/Lesion type: [place] artery [place] vs. transplanted heart: [place] heart Associated angina: angina presence unspecified Qualified Code(s): I25.10 - Atherosclerotic heart disease of [place] coronary artery without angina pectoris (3) HTN (hypertension) Onset Date: 10/11/17 Current Visit: No Status: Chronic Qualifiers: Hypertension type: essential hypertension (4) Tobacco abuse Onset Date: 10/11/17 Current Visit: No Status: Chronic - Plan The patient will be admitted to the hospital due to chest pain. Initial troponin I is negative, EKG shows ST-T abnormalities in inferolateral leads, similar to previous EKG in records. Will order serial cardiac enzymes and serial EKGs, will consult scleroscope tester for evaluation and farther recommendations. - Advance Directives Does patient have a Living Will: No Does patient have a Durable POA for Healthcare: No - Code Status/Comfort Care Code Status Assessed: Yes Code Status: Full Code
[2018-02-08] MEDS ORDERED: ACETAMINOPHEN 500 MG TAB PO PRN (20:55)
[2018-02-08] MEDS ORDERED: ONDANSETRON 4 MG/2 ML VIAL IV PRN (20:55)
[2018-02-08] MEDS ORDERED: MORPHINE 4 MG/ML SYR IV PRN (20:55)
[2018-02-08 21:23] VITALS: BMI 35.7
[2018-02-08] MEDS: ISOSORBIDE MONO 10 MG TAB PO SCH (22:35)
[2018-02-09 01:58] VITALS: O2SAT 95
[2018-02-09 04:09] LABS: Absolute Lymphocytes (CBC) 2.8 K/uL (0.7-4.9); Absolute Monocytes 0.8 K/uL (0.1-1.3); Absolute Neutrophil 3.1 K/uL (1.8-8.0); Basophils % 1.2 % (0-1.3); Eosinophils % 3.3 % (0-4.4); Hematocrit 47.2 % (39.6-49.0); Lymphocytes % 39.7 % (15.3-44.8); MCH 31.9 pg (27.0-35.0); MCV 95.6 fL (80-100); MPV 9.6 fL (7.6-11.3); Monocytes % 11.5 % (3.3-12.3); RBC Red Blood Cell Count 4.93 M/uL (4.33-5.43)
[2018-02-09 04:29] LABS: Potassium 4.3 mmol/L (3.5-5.1)
[2018-02-09 08:43] VITALS: BP 124/57; TEMP 98.1
[2018-02-09] MEDS ORDERED: DULERA 100/5 (MOMETASONE/FORMOTEROL) INHALER IH SCH (09:00)
[2018-02-09] MEDS ORDERED: LISINOPRIL 20 MG TAB PO SCH (09:00)
[2018-02-09] MEDS ORDERED: ENOXAPARIN 40 MG/0.4 ML SQ SCH (09:00)
[2018-02-09] MEDS ORDERED: ASPIRIN EC 81 MG TAB PO SCH (09:00)
[2018-02-09] MEDS: ISOSORBIDE MONO 10 MG TAB PO SCH (10:29)
--- NOTE | 2018-02-09 10:50 | CON ---
History Of Present Illness: Mr. Langston is a 52-year-old. He came to the hospital because he had r un out of medicines and he knew his blood pressure was going up. This is third hospitalization this year where a Cardiology consult has been done. He is known to have hypertension. He is known not to have coronary heart disease and he is known to have very poor compliance. Physical Examination: General: He is 5 feet 6 inches, 221 pounds. Alert, oriented, cooperative. Vital Signs: Blood pressure 124/57, pulse 73, temperature 98.1, O2 sat 95%. HEENT normal. Lungs: Clear. Cardiac: Normal. Abdomen: Soft. Extremities: Normal. Diagnostic Data: Most recent nuclear stress test was October this year was normal. Most recent echoca rdiogram October this year likewise, it was normal. Impression: Mr. Langston has stable heart. He would be very easy to control. He able to be complia nt with medications. His outpatient medications are lovastatin, nitroglycerin, isosorbide. I think that list is actually incomplete. I think he needs to be on lisinopril as well. I do not see any ne ed for isosorbide to be there. I am not treating angina or heart failure. Isosorbide is not a good blood pressure medicine and I will recommend that he go home with a prescription for lisinopril, beta-block er, and aspirin. ЕКАТЕРИНА Voice ID: [id number] Report ID: [id number]
--- NOTE | 2018-02-09 12:17 | P.DS ---
Admission Date: 02/08/18 Discharge Date: 02/09/18 Primary Care Provider: none Disposition: ROUTINE DISCHARGE Discharge Condition: GOOD Reason for Admission: Chest pain Consultations: Cardiology-Dr. Hernandes Procedures: October 2017 cardiac workup includes: Echocardiogram: Ejection fraction within normal range. Cardiac Stress test: FINDINGS: The end diastolic volume is 145 ml, the end systolic volume is 84 ml , and the ejection fraction is 42 %. Ventricular volumes and ejection fraction are similar to the comparison. Prior study showed suspected reversible perfusion defect in the inferior wall left ventricular myocardium. It is unknown if the patient underwent any stenting or diagnostic angiogram following the comparison study. On the current examination, the prior inferior wall defect is not seen as a reversible defect. There is inferoseptal diminished activity that does not change between rest and stress imaging. Elsewhere in the left ventricular myocardium no scarring or stress ischemia identifiable. IMPRESSION: No stress-induced ischemia identifiable. There is a small area of fixed diminished activity in the inferoseptal wall that may simply be diaphragmatic attenuation artifact or possibly scarring. The stress ischemic change seen on the December 2016 study is not appreciated on the current examination. End-diastolic volume is enlarged at 145 mL. Ejection fraction is below normal at 42%. These values are similar to the December 2016 study. - Problems (1) COPD (chronic obstructive pulmonary disease) Onset Date: 10/11/17 Current Visit: No Status: Chronic Qualifiers: COPD type: chronic bronchitis Chronic bronchitis type: unspecified Qualified Code(s): J42 - Unspecified chronic bronchitis (2) GERD (gastroesophageal reflux disease) Current Visit: No Status: Suspected Qualifiers: (3) Obesity Current Visit: No Status: Chronic Qualifiers: Obesity type: due to excess calories Obesity classification: adult class 2 (BMI 35 - 39.9) Serious obesity comorbidity presence: with serious comorbidity Body mass index: BMI 35.0-35.9 Qualified Code(s): E66.01 - Morbid (severe) obesity due to excess calories; Z68.35 - Body mass index (BMI) 35.0-35.9, adult (4) Tobacco abuse Onset Date: 02/09/18 Current Visit: Yes Status: Chronic (5) Chest pain Onset Date: 02/09/18 Current Visit: Yes Status: Acute Qualifiers: Chest pain type: unspecified (6) HTN (hypertension) Onset Date: 02/09/18 Current Visit: Yes Status: Chronic Qualifiers: Hypertension type: essential hypertension (7) HLD (hyperlipidemia) Onset Date: 10/11/17 Current Visit: No Status: Chronic Qualifiers: (8) Non-compliance Current Visit: Yes Status: Acute Brief History of Present Illness: 52-year-old male present emergency room with chest pain. Patient with history of hypertension, hyperlipidemia, COPD and noncompliance with follow up. Patient admitted for evaluation. Initial cardiac enzymes unremarkable. Cardiology was consulted. Hospital Course: Patient evaluated for chest pain. Patient seen and evaluated by Cardiology. Patient has had multiple workups for chest pain within this year. Most recent cardiac workup was October. This includes echocardiogram showing normal ejection fraction of 60% otherwise unremarkable. A stress test done at that time showed no stress-induced ischemia. So far cardiac enzymes unremarkable. Cardiology recommends no further workup. No further intervention needed at this time. Compliance will be important. Patient with noncompliance with follow-up and possibly medication. Cardiology recommends that the patient establish care with a local physician to continue his care. Patient may continue with aspirin 81 mg daily. Patient may take nitroglycerin as needed. Patient has hypertension. It appears the patient is not taking any medication. At discharge patient will continue with lisinopril 20 mg 1 pill once daily. Recommendation is to maintain blood pressures less 150/80. Further adjustment can be done by his PCP. Patient has hyperlipidemia. LDL elevated at 161. Compliance addressed. Patient will continue with medication-lovastatin 40 mg daily. Patient likely has underlying COPD. Patient will continue with medication for COPD. Patient may continue with Dulera 2 puffs twice daily and albuterol-Pro air 2 puffs 3 times a day as needed for shortness of breath. Tobacco cessation recommended. Vital Signs/Physical Exam: Temp Pulse Resp BP Pulse Ox 98.1 F 73 18 124/57 L 95 02/09/18 08:00 02/09/18 10:30 02/09/18 08:00 02/09/18 10:30 02/09/18 08:00 General: Alert, In no apparent distress, Oriented x3, Cooperative HEENT: Atraumatic Neck: Supple Respiratory: Clear to auscultation bilaterally, Normal air movement Cardiovascular: Normal pulses, Regular rate/rhythm Gastrointestinal: Normal bowel sounds, Soft and benign, Non-distended, No ascites, No tenderness, No masses, No rebound, No guarding Musculoskeletal: No erythema, No tenderness, No warmth Integumentary: No tenderness/swelling, No erythema, No warmth, No cyanosis Neurological: Normal speech, Normal strength at 5/5 x4 extr, Normal tone, Normal affect Laboratory Data at Discharge: WBC 7.1 K/uL (4.3-10.9) 02/09/18 03:33 Hgb 15.8 g/dL (13.6-17.9) 02/09/18 03:33 Hct 47.2 % (39.6-49.0) 02/09/18 03:33 Plt Count 209 K/uL (152-406) 02/09/18 03:33 PT 12.9 SECONDS (9.5-12.5) H 02/08/18 16:15 INR 1.09 02/08/18 16:15 Sodium 142 mmol/L (136-145) 02/09/18 03:33 Potassium 4.3 mmol/L (3.5-5.1) 02/09/18 03:33 BUN 13 mg/dL (7-18) 02/09/18 03:33 Creatinine 0.90 mg/dL (0.55-1.3) 02/09/18 03:33 Glucose 107 mg/dL (74-106) H 02/09/18 03:33 Magnesium 2.2 mg/dL (1.8-2.4) 02/08/18 16:15 Troponin I < 0.02 ng/mL (0.0-0.045) 02/09/18 03:33 Triglycerides 122 mg/dL (<150) 02/09/18 03:33 Cholesterol 212 mg/dL (<200) H 02/09/18 03:33 HDL Cholesterol 27 mg/dL (40-60) L 02/09/18 03:33 Cholesterol/HDL Ratio 7.85 02/09/18 03:33 Home Medications: Lovastatin 40 mg PO DAILY #30 tablet 11/25/17 Nitroglycerin [Nitrostat*] 0.4 mg SL UD PRN #30 tab 11/25/17 Isosorbide Mononitrate [Isosorbide Mononitrate ER] 30 mg PO DAILY 02/08/18 Albuterol Sulfate [Proair Hfa] 8.5 gm IH TID PRN #1 hfa.aer.ad 02/09/18 Aspirin [Aspirin EC 81 MG] 81 mg PO DAILY #30 tablet. 02/09/18 Lisinopril [Prinivil*] 20 mg PO DAILY #30 tab 02/09/18 Mometasone/Formoterol [Dulera 100 Mcg/5 Mcg Inhaler] 2 puff IH BID #1 inhaler Pantoprazole [Protonix Tab*] 40 mg PO DAILYAC #30 tab 02/09/18 New Medications: Albuterol Sulfate [Proair Hfa] 8.5 gm IH TID PRN #1 hfa.aer.ad PRN Reason: Shortness Of Breath Aspirin [Aspirin EC 81 MG] 81 mg PO DAILY #30 tablet. Lisinopril [Prinivil*] 20 mg PO DAILY #30 tab Mometasone/Formoterol [Dulera 100 Mcg/5 Mcg Inhaler] 2 puff IH BID #1 inhaler Pantoprazole [Protonix Tab*] 40 mg PO DAILYAC #30 tab Patient Discharge Instructions: 1. Patient will need establish care with a PCP to continue his care and refill medication. 2. Patient presented with chest pain. Patient seen and evaluated by Cardiology. Patient has had multiple workups for chest pain within this year. Most recent cardiac workup was October. This includes echocardiogram showing normal ejection fraction of 60% otherwise unremarkable. A stress test done at that time showed no stress- induced ischemia. So far cardiac enzymes unremarkable. Cardiology recommends no further workup. Cardiology recommends that the patient establish care with a local physician to continue his care. Patient may continue with aspirin 81 mg daily. Patient may take nitroglycerin as needed. 3. Patient has hypertension. It appears the patient is not taking any medication. Recommendation is to maintain blood pressures less 150/80. Further adjustment can be done by his PCP. At discharge patient will continue with lisinopril 20 mg 1 pill once daily. 4. Patient has hyperlipidemia. LDL elevated at 161. Compliance addressed. Patient will continue with medication-lovastatin 40 mg daily. 5. Patient likely has underlying COPD. Patient will continue with medication for COPD. Patient may continue with Dulera 2 puffs twice daily and albuterol-Pro air 2 puffs 3 times a day as needed for shortness of breath. 6. Tobacco cessation recommended. Diet: AHA Activity: Ad yasmine Time spent managing pt's care (in minutes): 55
--- NOTE | 2018-02-09 12:51 | EKG ---
Test Date: 2018-02-09 Test Time: 11:03:27 Engineer Of System Development: SERG MEASUREMENT RESULTS: Intervals: Rate: 70 TN: 148 QRSD: 106 QT: 384 QTc: 414 [place]: P: 55 TN: 148 QRS: 68 T: -38 INTERPRETIVE STATEMENTS: Normal sinus rhythm T wave abnormality, consider inferior ischemia Abnormal ECG Compared to ECG 02/08/2018 15:50:55 T-wave abnormality now present Sinus tachycardia no longer present Electronically Signed On 02-09-18 12:50:14 CDT by Eduardo Hernandes
[2018-02-09] MEDS ORDERED: ATORVASTATIN 20 MG TAB PO SCH (21:00)
[2018-02-10] MEDS ORDERED: PANTOPRAZOLE 40MG TABLET PO SCH (06:30)
== END 2018-02-09 15:21 | disposition home or self-care (01) ==
LOC: ER 15:30 → ERHOLD 19:15 → 4TH 20:14
PROVIDERS: ADMIT Internal Medicine; ATTEND Family Medicine
DX: R07.9 Chest pain, unspecified (principal); J44.9 Chronic obstructive pulmonary disease, unspecified; K21.9 Gastro-esophageal reflux disease without esophagitis; E66.01 Morbid (severe) obesity due to excess calories; Z68.35 Body mass index [BMI] 35.0-35.9, adult; F17.210 Nicotine dependence, cigarettes, uncomplicated; I10 Essential (primary) hypertension; E78.5 Hyperlipidemia, unspecified; Z79.82 Long term (current) use of aspirin; R00.0 Tachycardia, unspecified; I44.7 Left bundle-branch block, unspecified; Z91.14 Patient's other noncompliance with medication regimen; Z88.8 Allergy status to other drugs, medicaments and biological substances; Z59.0 Homelessness; I25.2 Old myocardial infarction; I25.10 Atherosclerotic heart disease of native coronary artery without angina pectoris
CPT/HCPCS: 36415; 71045; 80048; 80061; 83735; 83880; 84484; 85025; 85610; 93005; 96374; 96375; 99285; G0378; J1650; J3010; J7606

== ENCOUNTER 2018-02-18 14:10 | Emergency (ER) | payer OTHER, SELFPAY ==
[2018-02-18 14:50] LABS: Absolute Lymphocytes (CBC) 1.4 K/uL (0.7-4.9); Absolute Monocytes 0.6 K/uL (0.1-1.3); Absolute Neutrophil 4.6 K/uL (1.8-8.0); Basophils % 1.6 % (0-1.3); Eosinophils % 2.3 % (0-4.4); Lymphocytes % 20.4 % (15.3-44.8); MCH 31.6 pg (27.0-35.0); MCV 94.4 fL (80-100); MPV 9.3 fL (7.6-11.3); Monocytes % 9.4 % (3.3-12.3); RBC Red Blood Cell Count 5.08 M/uL (4.33-5.43)
[2018-02-18 14:51] LABS: Protime INR 1.02
--- NOTE | 2018-02-18 14:52 | RAD REPORT ---
EXAM DESCRIPTION: Jayda Single View02/18/2018 2:38 pm CLINICAL HISTORY: Chest pain COMPARISON: February 08, 2018 FINDINGS: The lungs appear clear of acute infiltrate. The heart is normal size IMPRESSION: No acute abnormalities displayed
[2018-02-18 15:20] LABS: ALT/SGPT 80 U/L (12-78); AST/SGOT 31 U/L (15-37); Albumin 3.7 g/dL (3.4-5.0); Alkaline Phosphatase 47 U/L (45-117); BUN Blood Urea Nitrogen 16 mg/dL (7-18); Bicarbonate 27 mmol/L (21-32); Bilirubin Direct < 0.1 mg/dL (0-0.2); Bilirubin Total 0.2 mg/dL (0.2-1.0); CKMB Creatine Kinase MB 2.6 ng/mL (0.3-3.6); Creatine Phosphokinase 155 U/L (39-308); Glucose Level 96 mg/dL (74-106); Magnesium 1.9 mg/dL (1.8-2.4); NT PRO-BNP 23 pg/mL (<125); Protein, Total 7.2 g/dL (6.4-8.2); Sodium Level 139 mmol/L (136-145)
[2018-02-18] MEDS ORDERED: MORPHINE 4 MG/ML SYR ONE (16:43)
--- NOTE | 2018-02-18 17:04 | EDPHYS ---
Physician Documentation [facility] Name: Juan Miguel Langston Age: 52 yrs Sex: Male : 1965 Arrival Date: 02/18/2018 Time: 14:14 Bed 4 Private MD: ED Physician Donavon Kaufman HPI: 02/18 16:12 This 52 yrs old Male presents to ER via EMS with complaints of Chest Pain. snw 16:12 The patient or guardian reports chest pain that is located primarily in the substernal snw area. Onset: suddenly, at 08:00. The pain radiates to "spread out". Associated signs and symptoms: Pertinent positives: shortness of breath. The chest pain is described as a heaviness, sharp. Duration: The patient or guardian reports multiple episodes. Severity of pain: At its worst the pain was moderate severe. EMS care prior to arrival includes: aspirin, saline lock, supplemental oxygen. The patient has experienced similar episodes in the past, recently hospitalized for angina. The patient has been recently seen by a physician: The patient has been recently been admitted at [facility], for similar complaints. EKG without Stemi but depressions noted in leads II \\T\\ III. Historical: - Allergies: 14:20 NKA; jl7 - Home Meds: 14:41 nitroglycerin 0.4 mg SL subl 1 tab every 5 minutes [Active]; ProAir HFA inhalation jl7 inhalation [Active]; fluticasone-salmeterol inhalation inhalation [Active]; pantoprazole 40 mg oral TbEC 1 tab once daily [Active]; aspirin 81 mg Oral chew 1 tab once daily [Active]; lisinopril 20 mg Oral tab 1 tab once daily [Active]; - PMHx: 14:20 Angina; High Cholesterol; Hypertension; Myocardial infarction; jl7 - PSHx: 14:43 None; jl7 - Immunization history:: Adult Immunizations unknown. - Social history:: Smoking status: Patient uses tobacco products, smokes one-half pack cigarettes per day. - Ebola Screening: : No symptoms or risks identified at this time. ROS: 16:11 Constitutional: Negative for fever, chills, and weight loss, Eyes: Negative for injury, snw pain, redness, and discharge, ENT: Negative for injury, pain, and discharge, Neck: Negative for injury, pain, and swelling, Cardiovascular: Positive for chest pain, Negative for palpitations and edema, Respiratory: Negative for shortness of breath, cough, wheezing, and pleuritic chest pain, Abdomen/GI: Negative for abdominal pain, nausea, vomiting, diarrhea, and constipation, Back: Negative for injury and pain, : Negative for injury, bleeding, discharge, and swelling, MS/Extremity: Negative for injury and deformity, Skin: Negative for injury, rash, and discoloration, Neuro: Negative for headache, weakness, numbness, tingling, and seizure, Psych: Negative for depression, anxiety, suicide ideation, homicidal ideation, and hallucinations. Exam: 16:11 Constitutional: This is a well developed, well nourished patient who is awake, alert, snw and in no acute distress. Head/Face: Normocephalic, atraumatic. Eyes: Pupils equal round and reactive to light, extra-ocular motions intact. Lids and lashes normal. Conjunctiva and sclera are non-icteric and not injected. Cornea within normal limits. Periorbital areas with no swelling, redness, or edema. ENT: Nares patent. No nasal discharge, no septal abnormalities noted. Tympanic membranes are normal and external auditory canals are clear. Oropharynx with no redness, swelling, or masses, exudates, or evidence of obstruction, uvula midline. Mucous membranes moist. Neck: Trachea midline, no thyromegaly or masses palpated, and no cervical lymphadenopathy. Supple, full range of motion without nuchal rigidity, or vertebral point tenderness. No Meningismus. Chest/axilla: Normal chest wall appearance and motion. Nontender with no deformity. No lesions are appreciated. Cardiovascular: Regular rate and rhythm with a normal S1 and S2. No gallops, murmurs, or rubs. Normal PMI, no JVD. No pulse deficits. Respiratory: Lungs have equal breath sounds bilaterally, clear to auscultation and percussion. No rales, rhonchi or wheezes noted. No increased work of breathing, no retractions or nasal flaring. Abdomen/GI: Soft, non-tender, with normal bowel sounds. No distension or tympany. No guarding or rebound. No evidence of tenderness throughout. Back: No spinal tenderness. No costovertebral tenderness. Full range of motion. Skin: Warm, dry with normal turgor. Normal color with no rashes, no lesions, and no evidence of cellulitis. MS/ Extremity: Pulses equal, no cyanosis. Neurovascular intact. Full, normal range of motion. Neuro: Awake and alert, GCS 15, oriented to person, place, time, and situation. Cranial nerves II-XII grossly intact. Motor strength 5/5 in all extremities. Sensory grossly intact. Cerebellar exam normal. Normal gait. Psych: Awake, alert, with orientation to person, place and time. Behavior, mood, and affect are within normal limits. Vital Signs: 14:20 BP 170 / 95; Pulse 96; Resp 18 S; Pulse Ox 96% on R/A; Weight 99.79 kg (R); Height 5 jl7 ft. 6 in. (167.64 cm) (R); Pain 5/10; 15:30 BP 132 / 75; Pulse 84; Resp 16; Pulse Ox 100% ; jl7 16:04 BP 138 / 70; Pulse 81; Resp 18; Pulse Ox 99% ; jb1 16:45 BP 134 / 70; Pulse 80; Resp 16; Pulse Ox 100% ; jl7 17:26 BP 126 / 71; Pulse 86; Resp 16; Pulse Ox 99% ; Pain 5/10; jl7 14:20 Body Mass Index 35.51 (99.79 kg, 167.64 cm) jl7 MDM: 14:25 Patient medically screened. snw 16:06 Data reviewed: vital signs, EMS record. Data reviewed: nurses notes. Data interpreted: snw Pulse oximetry: on room air is 99 %. Interpretation: normal. Counseling: I had a detailed discussion with the patient and/or guardian regarding: the historical points, exam findings, and any diagnostic results supporting the discharge/admit diagnosis, the presence of at least one elevated blood pressure reading (>120/80) during this emergency department visit, lab results, radiology results, the need for further work-up and treatment in the hospital. Physician consultation: Imelda Reynolds MD was called at 16:07, was contacted at 16:07, regarding admission, Dr. Reynolds knows pt, recent admission and assessment by Dr. Anderson. I called to admit pt to hospital. Dr. Reynolds will consult Dr. Anderson regarding hospitalization or urgent follow up. 16:15 ECG:. The patient was not given aspirin in the Emergency Department. Administered by [facility]. IVONE Risk Score: 1- Known CAD, 1 - ASA use in past 7 days, 1 - Recent [<24hrs] Severe Angina, 1 - ST deviation >0.5mm. 16:59 Special discussion: Based on the patient's history, exam, and Dx evaluation, there is snw no indication for emergent intervention or inpatient Tx. It is understood by the patient/guardian that if the Sx's persist or worsen they need to return immediately for re-evaluation. ED course: Dr. Anderson will see pt in clinic at [address] Anderson knows Mr. Langston well and is comfortable seeing him outpatient. Pt must continue Lisinopril and is not to be taking any beta aly medications. 02/18 14:27 Order name: Basic Metabolic Panel [facility] 02/18 14:27 Order name: CBC with Diff; Complete Time: 15:07 snw 02/18 14:27 Order name: Ckmb [facility] 02/18 14:27 Order name: CPK; Complete Time: 15:22 snw 02/18 14:27 Order name: LFT's [facility] 02/18 14:27 Order name: Magnesium; Complete Time: 15:22 snw 02/18 14:27 Order name: NT PRO-BNP; Complete Time: 15:22 snw 02/18 14:27 Order name: PT-INR; Complete Time: 15:07 snw 02/18 14:27 Order name: Ptt, Activated; Complete Time: 15:07 snw 02/18 14:27 Order name: Troponin (emerg Dept Use Only); Complete Time: 15:22 snw 02/18 14:27 Order name: XRAY Chest (1 view); Complete Time: 15:07 snw 02/18 14:27 Order name: Basic Metabolic Panel; Complete Time: 15:22 EDMS 02/18 14:27 Order name: CKMB Creatine Kinase MB; Complete Time: 15:22 EDMS 02/18 14:27 Order name: Liver (Hepatic) Function; Complete Time: 15:22 EDMS 02/18 14:27 Order name: EKG; Complete Time: 14:27 snw 02/18 14:27 Order name: Cardiac monitoring; Complete Time: 14:28 snw 02/18 14:27 Order name: EKG - Nurse/Tech; Complete Time: 14:28 snw 02/18 14:27 Order name: IV Saline Lock; Complete Time: 14:28 snw 02/18 14:27 Order name: Labs collected and sent; Complete Time: 14:28 snw 02/18 14:27 Order name: O2 Per Protocol; Complete Time: 14:28 snw 02/18 14:27 Order name: O2 Sat Monitoring; Complete Time: 14:28 snw 02/18 17:22 Order name: Diet Heart Healthy; Complete Time: 17:22 bd EC:15 Rate is 96 beats/min. Rhythm is regular, Normal Sinus Rhythm. OR interval is normal. snw QRS interval is normal. QT interval is normal. No Q waves. T waves are Inverted in leads V5, V6. ST Segment is depressed in leads II, III, <1mm. Clinical impression: NSR w/ Non-specific ST/T Changes. Administered Medications: 16:40 Drug: morphine 2 mg Route: IVP; Site: left antecubital; 7 17:10 Follow up: Response: No adverse reaction; Pain is decreased jl7 Disposition: 18:46 Co-signature as Attending Physician, Donavon Kaufman MD. Disposition: 02/18/18 17:03 Discharged to Home. Impression: Chest pain, unspecified. - Condition is Stable. - Discharge Instructions: Nonspecific Chest Pain, Electrocardiography, Hypertension, Aspirin and Your Heart. - Medication Reconciliation Form, Thank You Letter, Antibiotic Education, Prescription Opioid Use form. - Follow up: Nazario Anderson MD; When: 02/22/2018; Reason: at 8:30 in clinic for evaluation. - Notes: Dr. Anderson will see you in clinic on Tuesday, February 22, 2018 at 8:30 Signatures: Dispatcher [employer] EDMS Ayleen Galan FNP-C BOILER INSPECTOR-Csnw Redd Hunt RN RN Donavon Hills MD MD Corrections: (The following items were deleted from the chart) 14:43 14:20 Home Meds: Isosorbide Mononitrate Oral; jl7 jl7 14:43 14:20 Home Meds: Metoprolol Tartrate Oral; jl7 17:46 14:27 Urine Dipstick-Ancillary ordered. chayo jl7 18:06 17:03 02/18/2018 17:03 Discharged to Home. Impression: Chest pain, unspecified. jl7 Condition is Stable. Forms are Medication Reconciliation Form, Thank You Letter, Antibiotic Education, Prescription Opioid Use. Follow up: Nazario Anderson; When: 02/22/2018; Reason: at 8:30 in clinic for evaluation. chayo
--- NOTE | 2018-02-18 17:04 | ER ---
Nurse's Notes [facility] Name: Juan Miguel Langston Age: 52 yrs Sex: Male : 1965 Arrival Date: 02/18/2018 Time: 14:14 Bed 4 Private MD: Diagnosis: Chest pain, unspecified Presentation: 02/18 14:16 Presenting complaint: EMS states: Substernal chest pain began at 0800, took 3 nitro jl7 today. Transition of care: patient was not received from another setting of care. Onset of symptoms was February 18, 2018 at 08:00. Risk Assessment: Do you want to hurt yourself or someone else? Patient reports no desire to harm self or others. Initial Sepsis Screen: Does the patient meet any 2 criteria? No. Patient's initial sepsis screen is negative. Does the patient have a suspected source of infection? No. Patient's initial sepsis screen is negative. Care prior to arrival: Medication(s) given: ASA, 81 mg, x 4, zofran 4 mg, Morphine 4mg IV initiated. 18 GA, in the left antecubital area, Glucose check: 89. 14:16 Method Of Arrival: EMS: [facility] jl7 14:16 Acuity: DESTINY 3 jl7 Triage Assessment: 14:20 General: Appears in no apparent distress. uncomfortable, Behavior is calm, cooperative. jl7 Pain: Complains of pain in mid-sternal area Pain radiates to right breast and left breast Pain currently is 5 out of 10 on a pain scale. Quality of pain is described as aching, dull, Pain began years ago. Is continuous. EENT: No signs and/or symptoms were reported regarding the EENT system. Oral mucosa is dry. Neuro: Level of Consciousness is awake, alert, obeys commands, Oriented to person, place, time, situation. Cardiovascular: Heart tones S1 S2 present Patient's skin is warm and dry. Respiratory: Airway is patent Respiratory effort is even, unlabored, Respiratory pattern is regular, symmetrical. GI: No signs and/or symptoms were reported involving the gastrointestinal system. : No signs and/or symptoms were reported regarding the genitourinary system. Derm: Skin is pink, warm \T\ dry. Musculoskeletal: No signs and/or symptoms reported regarding the musculoskeletal system. Historical: - Allergies: 14:20 NKA; jl7 - Home Meds: 14:41 nitroglycerin 0.4 mg SL subl 1 tab every 5 minutes [Active]; ProAir HFA inhalation jl7 inhalation [Active]; fluticasone-salmeterol inhalation inhalation [Active]; pantoprazole 40 mg oral TbEC 1 tab once daily [Active]; aspirin 81 mg Oral chew 1 tab once daily [Active]; lisinopril 20 mg Oral tab 1 tab once daily [Active]; - PMHx: 14:20 Angina; High Cholesterol; Hypertension; Myocardial infarction; jl7 - PSHx: 14:43 None; jl7 - Immunization history:: Adult Immunizations unknown. - Social history:: Smoking status: Patient uses tobacco products, smokes one-half pack cigarettes per day. - Ebola Screening: : No symptoms or risks identified at this time. Screenin:23 Abuse screen: Denies threats or abuse. Denies injuries from another. Nutritional jl7 screening: No deficits noted. Tuberculosis screening: No symptoms or risk factors identified. Fall Risk IV access (20 points). Total [place] Fall Scale indicates No Risk (0-24 pts). Assessment: 14:23 General: See triage assessment. Pain: Complains of pain in mid-sternal area Pain jl7 radiates to left breast and right breast Pain currently is 5 out of 10 on a pain scale. Quality of pain is described as aching, dull, Pain began years ago. Is continuous. 15:30 Reassessment: No changes from previously documented assessment. Patient and/or family jl7 updated on plan of care and expected duration. Pain level reassessed. Patient is alert, oriented x 3, equal unlabored respirations, skin warm/dry/pink. 16:30 Reassessment: Patient and/or family updated on plan of care and expected duration. Pain jl7 level reassessed. Patient is alert, oriented x 3, equal unlabored respirations, skin warm/dry/pink. 17:26 Reassessment: Pt requesting a food tray, tray ordered and pt will be discharged after jl7 pt eats. Vital Signs: 14:20 BP 170 / 95; Pulse 96; Resp 18 S; Pulse Ox 96% on R/A; Weight 99.79 kg (R); Height 5 jl7 ft. 6 in. (167.64 cm) (R); Pain 5/10; 15:30 BP 132 / 75; Pulse 84; Resp 16; Pulse Ox 100% ; jl7 16:04 BP 138 / 70; Pulse 81; Resp 18; Pulse Ox 99% ; jb1 16:45 BP 134 / 70; Pulse 80; Resp 16; Pulse Ox 100% ; jl7 17:26 BP 126 / 71; Pulse 86; Resp 16; Pulse Ox 99% ; Pain 5/10; jl7 14:20 Body Mass Index 35.51 (99.79 kg, 167.64 cm) jl7 ED Course: 14:14 Patient arrived in ED. hj 14:16 Redd Hunt, RN is Primary Nurse. jl7 14:19 Triage completed. jl7 14:20 Arm band placed on right wrist. jl7 14:23 Patient has correct armband on for positive identification. Bed in low position. Call jl7 light in reach. Side rails up X2. alarm security or surveillance monitor on. Pulse ox on. NIBP on. 14:23 EKG done, by ED staff, reviewed by Donavon Kaufman MD. Maintain EMS IV. Dressing intact. jl7 Good blood return noted. Site clean \T\ dry. Gauge \T\ site: 18 Left AC. Patient maintains SpO2 saturation greater than 95% on room air. 14:25 Ayleen Galan FNP-C is PHCP. snw 14:25 Donavon Kaufman MD is Attending Physician. snw 14:37 XRAY Chest (1 view) In Process Unspecified. EDMS 17:02 Nazario Anderson MD is Referral Physician. snw 17:29 No provider procedures requiring assistance completed. IV discontinued, intact, jl7 bleeding controlled, No redness/swelling at site. Pressure dressing applied. Administered Medications: 16:40 Drug: morphine 2 mg Route: IVP; Site: left antecubital; jl7 17:10 Follow up: Response: No adverse reaction; Pain is decreased jl7 Outcome: 17:03 Discharge ordered by . snw 17:29 Discharged to home ambulatory, with family. jl7 17:29 Condition: stable 17:29 Discharge instructions given to patient, family, Instructed on discharge instructions, follow up and referral plans. Demonstrated understanding of instructions, follow-up care. 18:06 Patient left the ED. jl7 Signatures: Dispatcher [employer] EDAK Addison Kim jbAyleen Vides FNP-C FREIGHT ASSOCIATE-Csnw Wild Wallace, RN RN hj Redd Hunt RN RN jl7 Corrections: (The following items were deleted from the chart) 14:20 Home Meds: Isosorbide Mononitrate Oral; jl7 jl7 14:20 Home Meds: Metoprolol Tartrate Oral; jl7 jl7
[2018-02-18 18:16] VITALS: BP 126/71; O2SAT 99
[2018-02-18] MEDS ORDERED: LIDOCAINE VISCOUS 2% SOLN 15 ML UDC ONE (19:47)
--- NOTE | 2018-02-19 07:47 | EKG ---
Test Date: 2018-02-18 Test Time: 14:12:23 Cafeteria Monitor: ZAC MEASUREMENT RESULTS: Intervals: Rate: 96 TN: 140 QRSD: 106 QT: 338 QTc: 427 [place]: P: 53 TN: 140 QRS: 60 T: -87 INTERPRETIVE STATEMENTS: Normal sinus rhythm ST & T wave abnormality, consider inferior ischemia Abnormal ECG Compared to ECG 02/09/2018 11:03:27 ST (T wave) deviation now present T-wave abnormality no longer present Possible ischemia still present Electronically Signed On 02-19-18 07:45:20 CDT by Nazario Anderson
== END 2018-02-18 18:06 | disposition home or self-care (01) ==
LOC: ER 14:10
DX: R07.9 Chest pain, unspecified (principal); I20.9 Angina pectoris, unspecified; E78.00 Pure hypercholesterolemia, unspecified; I10 Essential (primary) hypertension; I25.2 Old myocardial infarction; F17.210 Nicotine dependence, cigarettes, uncomplicated
CPT/HCPCS: 36415; 71045; 80048; 80076; 82550; 82553; 83735; 83880; 84484; 85025; 85610; 85730; 93005; 96374; 99285

== ENCOUNTER 2018-02-20 19:20 | Emergency (ER) | payer SELFPAY ==
[2018-02-20] MEDS ORDERED: NITROGLYCERIN 1 GM PKT TD ONE (19:46)
[2018-02-20 19:48] LABS: Absolute Lymphocytes (CBC) 1.2 K/uL (0.7-4.9)
--- NOTE | 2018-02-20 19:57 | RAD REPORT ---
EXAM DESCRIPTION: RAD - Chest Single View - 02/20/2018 7:48 pm CLINICAL HISTORY: CHEST PAIN Chest pain. COMPARISON: Chest Single View dated 02/18/2018; Chest Single View dated 02/08/2018; Chest Single View d ated 11/24/2017; Chest Single View dated 10/10/2017 FINDINGS: Portable technique limits examination quality. The lungs are grossly clear. The heart is normal in size. No displaced fractures. IMPRESSION: No acute intrathoracic process suspected.
[2018-02-20 20:00] LABS: Protime INR 1.05
[2018-02-20 20:07] LABS: Absolute Monocytes 0.7 K/uL (0.1-1.3); Basophils % 0.5 % (0-1.3); Eosinophils % 1.9 % (0-4.4); Hematocrit 46.9 % (39.6-49.0); Lymphocytes % 23.2 % (15.3-44.8); MCH 32.1 pg (27.0-35.0); MCV 95.7 fL (80-100); MPV 9.3 fL (7.6-11.3); Monocytes % 14.5 % (3.3-12.3)
[2018-02-20 20:11] LABS: ALT/SGPT 102 U/L (12-78); AST/SGOT 33 U/L (15-37); Albumin 3.6 g/dL (3.4-5.0); Alkaline Phosphatase 47 U/L (45-117); BUN Blood Urea Nitrogen 17 mg/dL (7-18); Bicarbonate 25 mmol/L (21-32); Bilirubin Direct < 0.1 mg/dL (0-0.2); Bilirubin Total 0.2 mg/dL (0.2-1.0); Creatine Phosphokinase 124 U/L (39-308); Glucose Level 157 mg/dL (74-106); Magnesium 2.1 mg/dL (1.8-2.4); NT PRO-BNP 10 pg/mL (<125); Potassium 3.8 mmol/L (3.5-5.1); Protein, Total 6.9 g/dL (6.4-8.2); Sodium Level 143 mmol/L (136-145)
--- NOTE | 2018-02-20 20:41 | ER ---
Nurse's Notes [facility] Name: Juan Miguel Lansgton Age: 52 yrs Sex: Male : 1965 Arrival Date: 02/20/2018 Time: 19:27 Bed 5 Private MD: Diagnosis: Presentation: 02/20 19:20 Presenting complaint: EMS states: they were toned out for report of pt having bb substernal chest pain today pt was cool and clammy on their arrival with heart rate in the 120s they established an IV and gave nitro x 1 and Zofran 4 mg. Transition of care: patient was not received from another setting of care. Onset of symptoms was February 20, 2018. Risk Assessment: Do you want to hurt yourself or someone else? Patient reports no desire to harm self or others. Initial Sepsis Screen: Does the patient meet any 2 criteria? No. Patient's initial sepsis screen is negative. Does the patient have a suspected source of infection? No. Patient's initial sepsis screen is negative. Care prior to arrival: None. 19:20 Method Of Arrival: EMS: [facility] bb 19:20 Acuity: DESTINY 3 bb Historical: - Allergies: 19:29 NKA; bb - Home Meds: 19:29 aspirin 81 mg Oral chew 1 tab once daily [Active]; fluticasone-salmeterol inhalation bb [Active]; lisinopril 20 mg Oral tab 1 tab once daily [Active]; nitroglycerin 0.4 mg SL subl 1 tab every 5 minutes [Active]; pantoprazole 40 mg Oral TbEC 1 tab once daily [Active]; ProAir HFA inhalation [Active]; - PMHx: 19:29 Angina; High Cholesterol; Hypertension; Myocardial infarction; bb - PSHx: 19:29 None; bb - Immunization history:: Adult Immunizations up to date. - Social history:: Smoking status: Patient uses tobacco products, smokes one-half pack cigarettes per day, Patient/guardian denies using alcohol, street drugs. - Ebola Screening: : No symptoms or risks identified at this time. Screenin:38 Abuse screen: Denies threats or abuse. Denies injuries from another. Nutritional lp1 screening: No deficits noted. Tuberculosis screening: No symptoms or risk factors identified. Fall Risk None identified. Assessment: 19:35 General: Appears uncomfortable, well groomed, Behavior is appropriate for age. Pain: lp1 Complains of pain in chest Pain does not radiate. Pain currently is 7 out of 10 on a pain scale. Quality of pain is described as sharp, Pain began suddenly. Neuro: Level of Consciousness is awake, alert, obeys commands, Oriented to person, place, time, situation, Pupils are PERRLA. Cardiovascular: Capillary refill < 3 seconds in bilateral fingers toes Rhythm is sinus tachycardia Chest pain is described as Pain is 7 out of 10 on a pain scale. is located in chest wall substernal area. Respiratory: Reports shortness of breath Respiratory effort is even, Respiratory pattern is regular, symmetrical, Breath sounds are clear bilaterally. GI: Abdomen is non-distended. : No signs and/or symptoms were reported regarding the genitourinary system. EENT: No signs and/or symptoms were reported regarding the EENT system. Derm: Skin is intact, Skin is diaphoretic, Skin is normal. Musculoskeletal: Circulation, motion, and sensation intact. 20:30 Reassessment: Patient appears in no apparent distress at this time. No changes from lp1 previously documented assessment. Patient and/or family updated on plan of care and expected duration. Pain level reassessed. 21:26 Reassessment: Patient states continued chest pain; Provider notified, verbal order lp1 given to administer Toradol 30mg IV at this time. 21:27 Reassessment: Patient appears in no apparent distress at this time. lp1 23:03 Reassessment: pt notified awaiting 2nd cardiac enzymes prior to disposition. On bb notification pt upset and states he wants be be seen by a chief wellness officer again instructed pt about need for repeat cardiac enzymes pt states he wants to leave. Notified Dr Richards pt wants to sign out AMA. Pt states he will go somewhere else. Pt signed AMA form IV discontinued with catheter intact, bleeding controlled, pressure dressing applied. Pt ambulated with steady gait to exit accompanied by spouse. Vital Signs: 19:25 BP 163 / 71; Pulse 121; Resp 20 S; Temp 99.1(O); Pulse Ox 98% on R/A; Weight 99.79 kg bb (R); Height 5 ft. 6 in. (167.64 cm) (R); Pain 7/10; 20:00 BP 132 / 73; Pulse 107; Resp 16; Pulse Ox 96% on 2 lpm NC; lp1 20:45 BP 128 / 68; Pulse 101; Resp 19; Pulse Ox 98% on 2 lpm NC; lp1 21:27 BP 128 / 73; Pulse 95; Resp 15; Pulse Ox 99% on 2 lpm NC; lp1 19:25 Body Mass Index 35.51 (99.79 kg, 167.64 cm) bb ED Course: 19:25 Arm band placed on Patient placed in an exam room, on a stretcher, on communications department chair, bb on pulse oximetry. EKG completed in triage. Results shown to MD. 19:27 Patient arrived in ED. lp1 19:27 Hans Richards MD is Attending Physician. tw4 19:28 Triage completed. bb 19:35 Richa Jaime, RN is Primary Nurse. lp1 19:37 Patient has correct armband on for positive identification. Placed in gown. Bed in low lp1 position. Call light in reach. ironworker foreman on. Pulse ox on. NIBP on. 19:37 Maintain EMS IV. Dressing intact. Good blood return noted. Site clean \T\ dry. Gauge \T\ lp 1 site: 18g to L AC. Patient maintains SpO2 saturation greater than 95% on room air. 19:39 Initial lab(s) drawn, by me, sent to lab. cc1 19:46 XRAY Chest (1 view) In Process Unspecified. EDMS 20:40 Kranthi Bloom MD is Hospitalizing Provider. tw4 21:28 No provider procedures requiring assistance completed. Patient admitted, IV remains in lp1 place. Administered Medications: 19:48 Drug: Nitro-Bid Ointment 2 % 1 inches Route: Transdermal; Site: anterior chest wall; lp1 21:00 Follow up: Response: Marked relief of symptoms lp1 20:59 Drug: NS 0.9% 1000 ml Route: IV; Rate: 1 bolus; Site: left antecubital; lp1 22:30 Follow up: IV Status: Completed infusion; IV Intake: 1000ml lp1 21:26 Drug: TORadol 30 mg Route: IVP; Site: left antecubital; lp1 22:00 Follow up: Response: No adverse reaction lp1 Intake: 22:30 IV: 1000ml; Total: 1000ml. lp1 Outcome: 20:40 Decision to Hospitalize by Provider. tw4 21:29 Condition: stable lp1 21:29 Instructed on the need for admit. 23:10 AMA AMA form signed bb 23:15 Patient left the ED. bb Signatures: Dispatcher [employer] Val Maurice RN RN bb Richa Jaime RN RN lp1 Tan Spear 1 Hans Richards MD MD tw4 Corrections: (The following items were deleted from the chart) : 21:26 Reassessment: Patient states continued chest pain; Provider notified, verbal lp1 order given to administer Toradol 30mg IV at this time lp1
--- NOTE | 2018-02-20 20:41 | EDPHYS ---
Physician Documentation [facility] Name: Juan Miguel Langston Age: 52 yrs Sex: Male : 1965 Arrival Date: 02/20/2018 Time: 19:27 Bed 5 Private MD: ED Physician Hans Richards HPI: 02/20 22:10 This 52 yrs old Male presents to ER via EMS with complaints of Chest Pain. tw4 22:10 The patient or guardian reports chest pain that is located primarily in the anterior tw4 chest wall. Onset: today. The pain does not radiate. Associated signs and symptoms: Pertinent positives: shortness of breath. The chest pain is described as dull. Duration: The patient or guardian reports a single episode, that is now resolved. Severity of pain: At its worst the pain was moderate in the emergency department the pain is unchanged. Historical: - Allergies: 19:29 NKA; bb - Home Meds: 19:29 aspirin 81 mg Oral chew 1 tab once daily [Active]; fluticasone-salmeterol inhalation bb [Active]; lisinopril 20 mg Oral tab 1 tab once daily [Active]; nitroglycerin 0.4 mg SL subl 1 tab every 5 minutes [Active]; pantoprazole 40 mg Oral TbEC 1 tab once daily [Active]; ProAir HFA inhalation [Active]; - PMHx: 19:29 Angina; High Cholesterol; Hypertension; Myocardial infarction; bb - PSHx: 19:29 None; bb - Immunization history:: Adult Immunizations up to date. - Social history:: Smoking status: Patient uses tobacco products, smokes one-half pack cigarettes per day, Patient/guardian denies using alcohol, street drugs. - Ebola Screening: : No symptoms or risks identified at this time. ROS: 22:10 Constitutional: Negative for fever, chills, and weight loss, Cardiovascular: Negative tw4 for chest pain, palpitations, and edema, Abdomen/GI: Negative for abdominal pain, nausea, vomiting, diarrhea, and constipation, Back: Negative for injury and pain, MS/Extremity: Negative for injury and deformity, Skin: Negative for injury, rash, and discoloration, Neuro: Negative for headache, weakness, numbness, tingling, and seizure. Exam: 22:10 Constitutional: This is a well developed, well nourished patient who is awake, alert, tw4 and in no acute distress. Head/Face: Normocephalic, atraumatic. Chest/axilla: Normal chest wall appearance and motion. Nontender with no deformity. No lesions are appreciated. Cardiovascular: Regular rate and rhythm with a normal S1 and S2. No gallops, murmurs, or rubs. Normal PMI, no JVD. No pulse deficits. Respiratory: Lungs have equal breath sounds bilaterally, clear to auscultation and percussion. No rales, rhonchi or wheezes noted. No increased work of breathing, no retractions or nasal flaring. Abdomen/GI: Soft, non-tender, with normal bowel sounds. No distension or tympany. No guarding or rebound. No evidence of tenderness throughout. 22:10 Musculoskeletal/extremity: Extremities: noted in the medial aspect of right thigh: ecchymosis, pain, swelling. Vital Signs: 19:25 BP 163 / 71; Pulse 121; Resp 20 S; Temp 99.1(O); Pulse Ox 98% on R/A; Weight 99.79 kg bb (R); Height 5 ft. 6 in. (167.64 cm) (R); Pain 7/10; 20:00 BP 132 / 73; Pulse 107; Resp 16; Pulse Ox 96% on 2 lpm NC; lp1 20:45 BP 128 / 68; Pulse 101; Resp 19; Pulse Ox 98% on 2 lpm NC; lp1 21:27 BP 128 / 73; Pulse 95; Resp 15; Pulse Ox 99% on 2 lpm NC; lp1 19:25 Body Mass Index 35.51 (99.79 kg, 167.64 cm) MDM: 19:27 Patient medically screened. tw4 22:10 Data reviewed: vital signs, nurses notes. 02/20 19:28 Order name: Basic Metabolic Panel; Complete Time: 20:30 02/20 19:28 Order name: CBC with Diff; Complete Time: 20:30 02/20 20:30 Interpretation: Normal except: WBC 5.1. 02/20 19:28 Order name: Ckmb; Complete Time: 20:30 02/20 20:31 Interpretation: Within normal limits: CKMB 2.0. 02/20 19:28 Order name: CPK; Complete Time: 20:30 tw4 02/20 20:31 Interpretation: Within normal limits: CPK 124. tw4 02/20 19:28 Order name: LFT's; Complete Time: 20:30 tw4 02/20 20:31 Interpretation: Normal except: ALT 102. tw4 02/20 19:28 Order name: Magnesium; Complete Time: 20:30 tw4 02/20 20:31 Interpretation: Within normal limits: MG 2.1. tw4 02/20 19:28 Order name: NT PRO-BNP; Complete Time: 20:30 tw4 02/20 20:31 Interpretation: Within normal limits: NT PRO-BNP 10. tw4 02/20 19:28 Order name: PT-INR; Complete Time: 20:30 [facility] 02/20 20:31 Interpretation: Normal except: PT 12.4. 02/20 19:28 Order name: Ptt, Activated; Complete Time: 20:30 [facility] 02/20 20:31 Interpretation: Within normal limits: PTT 28.9. tw4 02/20 19:28 Order name: Troponin (emerg Dept Use Only); Complete Time: 20:30 tw4 02/20 20:32 Interpretation: Within normal limits: TROPED < 0.02. tw4 02/20 19:28 Order name: XRAY Chest (1 view); Complete Time: 20:30 4 02/20 21:50 Order name: Urine Dipstick--Ancillary (enter results) sc 02/20 19:28 Order name: EKG; Complete Time: 19:29 tw4 02/20 19:28 Order name: Cardiac monitoring; Complete Time: 19:38 tw4 02/20 19:28 Order name: EKG - Nurse/Tech; Complete Time: 19:39 tw4 02/20 19:28 Order name: IV Saline Lock; Complete Time: 19:39 tw4 02/20 19:28 Order name: Labs collected and sent; Complete Time: 19:39 tw4 02/20 19:28 Order name: O2 Per Protocol; Complete Time: 19:39 tw4 02/20 19:28 Order name: O2 Sat Monitoring; Complete Time: 19:39 tw4 02/20 19:28 Order name: Urine Dipstick-Ancillary (obtain specimen); Complete Time: 21:49 tw4 Administered Medications: 19:48 Drug: Nitro-Bid Ointment 2 % 1 inches Route: Transdermal; Site: anterior chest wall; lp1 21:00 Follow up: Response: Marked relief of symptoms lp1 20:59 Drug: NS 0.9% 1000 ml Route: IV; Rate: 1 bolus; Site: left antecubital; lp1 22:30 Follow up: IV Status: Completed infusion; IV Intake: 1000ml lp1 21:26 Drug: TORadol 30 mg Route: IVP; Site: left antecubital; lp1 22:00 Follow up: Response: No adverse reaction lp1 Disposition: 02/20/18 23:15 Patient has left against medical advice. - Patients states they are going to Home. - Condition is Stable. Signatures: Dispatcher [employer] EDVal Merritt RN RN bb Richa Jaime RN RN lp1 Hans Richards MD MD tw4 Corrections: (The following items were deleted from the chart) 20:14 19:56 CBC Smear Scan ordered. EDOH EDOH 23:14 20:40 Hospitalization Ordered by Kranthi Bloom MD for Observation. Preliminary tw4 diagnosis is Unstable angina. Bed requested for Telemetry/MedSurg (observation). Status is Observation. Condition is Stable. Problem is new. Symptoms have improved. UTI on Admission? No. tw4
[2018-02-20] MEDS ORDERED: NA CHLORIDE 0.9% 1,000 ML ONE (20:43)
[2018-02-20] MEDS ORDERED: KETOROLAC 30 MG/ML INJ IV ONE (21:01)
--- NOTE | 2018-02-20 21:21 | P.CNS ---
Date of Consult: 02/20/18 Reason for Consult: Chest pain Requesting Physician: Hans Richards Chief Complaint: Chest pain History of Present Illness: Mr. Langston is a 52-year-old male with history of hypertension, COPD, tobacco abuse, CAD, previous a NM stress test done in October of 2017, was remarkable for a fixed defect in the inferior wall, he was admitted on 02/12/18 due to another episode of chest pain. On that time he was evaluated by Cardiology, who did not recommend farther cardiac workup, but adjusted his medication. At that time, it was encouraged to be compliant with his medical treatment. 2 days ago the patient came to ER for chest pain, and he was discharged home without admission. Today, the patient had a new episode of chest pain, starting about 2 :00 p.m. this afternoon, described as dull, 8/10 of intensity, associated with shortness of breath, exacerbated with chest movement, and deep breathe. Initial troponin I is negative, EKG shows no change with previous one. The chest pain is reproducible with chest palpation. Chest-x-ray shows no acute abnormality. Allergies Beta-Blockers (Beta-Adrenergic Bloc Adverse Reaction (Verified 10/09/17 11:30) Anaphylaxis metoprolol Adverse Reaction (Verified 10/10/17 06:56) Anaphylaxis No Known Allergies Allergy (Uncoded 10/10/17 20:05) Unknown Home Medications: Lovastatin 40 mg PO DAILY #30 tablet 11/25/17 Nitroglycerin [Nitrostat*] 0.4 mg SL UD PRN #30 tab 11/25/17 Isosorbide Mononitrate [Isosorbide Mononitrate ER] 30 mg PO DAILY 02/08/18 Albuterol Sulfate [Proair Hfa] 8.5 gm IH TID PRN #1 hfa.aer.ad 02/09/18 Aspirin [Aspirin EC 81 MG] 81 mg PO DAILY #30 tablet. 02/09/18 Lisinopril [Prinivil*] 20 mg PO DAILY #30 tab 02/09/18 Mometasone/Formoterol [Dulera 100 Mcg/5 Mcg Inhaler] 2 puff IH BID #1 inhaler Pantoprazole [Protonix Tab*] 40 mg PO DAILYAC #30 tab 02/09/18 - Past Medical/Surgical History Diabetic: No -: Angina -: HTN -: Hyperlipidemia -: Tobacco abuse -: CAD -: COPD -: GERD -: Noncompliance with medication and follow up -: CARDIAC CATH 12/2013 NO STENTS 30% BLOCKAGE PER PT -: Cardiac stress tests October 2017 showed no stress-induced ischemia Psychosocial/ Personal History: Patient is single. Patient is homeless. - Family History MOM Medical History: Heart disease, Other (see notes) Notes: MASSIVE [place] 61YR and arthritis DAD Medical History: Heart disease, Other (see notes) Notes: POOR CIRCULATION TO LEGS PER PT - Social History Smoking Status: Current every day smoker Counseled patient to stop smoking for: less than 10 minutes Smoking therapy provided: No Patient receptive to therapy: No Alcohol use: No CD- Drugs: No Caffeine use: Yes Place of Residence: Home Review of Systems 10-point ROS is otherwise unremarkable Physical Examination General: Alert, In no apparent distress HEENT: Atraumatic, PERRLA, Mucous membr. moist/pink, EOMI, Sclerae nonicteric Neck: Supple, 2+ carotid pulse no bruit, No LAD, Without JVD or thyroid abnormality Respiratory: Clear to auscultation bilaterally, Normal air movement Cardiovascular: Regular rate/rhythm, Normal S1 S2 Gastrointestinal: Normal bowel sounds, No tenderness Musculoskeletal: Tenderness (Chest Wall tender to palpation, reproducing similar complaining chest pain.) Integumentary: No rashes Neurological: Normal gait, Normal speech, Normal tone, Normal affect Lymphatics: No axilla or inguinal lymphadenopathy Laboratory Data (last 24 hrs) 02/20/18 19:31: PT 12.4, INR 1.05, APTT 28.9 02/20/18 19:31: WBC 5.1 D, Hgb 15.7, Hct 46.9, Plt Count 249 02/20/18 19:31: Sodium 143, Potassium 3.8, BUN 17, Creatinine 0.90, Glucose 157 H, Magnesium 2.1, Total Bilirubin 0.2, AST 33, ALT 102 H, Alkaline Phosphatase 47 - Problems (1) Chest pain Onset Date: 02/09/18 Status: Acute Qualifiers: Chest pain type: chest pain on breathing Qualified Code(s): R07.1 - Chest pain on breathing; R07.81 - Pleurodynia (2) CAD (coronary artery disease) Onset Date: 02/09/18 Status: Chronic Qualifiers: Coronary Disease-Associated Artery/Lesion type: [place] artery [place] vs. transplanted heart: [place] heart Associated angina: angina presence unspecified Qualified Code(s): I25.10 - Atherosclerotic heart disease of [place] coronary artery without angina pectoris (3) COPD (chronic obstructive pulmonary disease) Onset Date: 10/11/17 Status: Chronic Qualifiers: COPD type: chronic bronchitis Chronic bronchitis type: unspecified Qualified Code(s): J42 - Unspecified chronic bronchitis (4) HTN (hypertension) Onset Date: 02/09/18 Status: Chronic Qualifiers: Hypertension type: essential hypertension Qualified Code(s): I10 - Essential (primary) hypertension (5) Nicotine dependence Onset Date: 10/11/17 Status: Chronic Qualifiers: Nicotine product type: cigarettes Substance use status: unspecified nicotine-induced disorder Qualified Code(s): F17.219 - Nicotine dependence, cigarettes, with unspecified nicotine-induced disorders Conclusions/Impression: The patient came to ER due to chest pain. According to cardiology's note, there is no farther cardiac workup recommendation at this point since the patient is not very compliance with his treatment. Initial troponin I is normal, EKG showed no new changes. His chest pain seems to be atypical since is reproducible with palpation. At this point, I recommend to repeat troponin I, if is negative, discharge the patient home, resume his medication, and follow- up with weather analyst his upcoming appointment in 2 days.
[2018-02-20 21:55] LABS: Urine Blood NEGATIVE (NEG); Urine Glucose NEGATIVE (NEG); Urine Protein 1+ (NEG); Urine Specific Gravity >1.030 (1.005-1.030); Urine pH 5.5 (5.0-7.0)
[2018-02-20 23:20] VITALS: TEMP 99.1
[2018-02-20 23:23] VITALS: BP 128/73; O2SAT 99
--- NOTE | 2018-02-21 12:48 | EKG ---
Test Date: 2018-02-20 Test Time: 19:17:48 Advanced Manufacturing Consultant: DAVIN MEASUREMENT RESULTS: Intervals: Rate: 118 IL: 136 QRSD: 90 QT: 314 QTc: 440 [place]: P: 34 IL: 136 QRS: 34 T: -81 INTERPRETIVE STATEMENTS: Sinus tachycardia Cannot rule out Anterior infarct, age undetermined ST & T wave abnormality, consider inferolateral ischemia Abnormal ECG Compared to ECG 02/18/2018 14:12:23 Myocardial infarct finding now present Sinus rhythm no longer present ST (T wave) deviation still present Possible ischemia still present Electronically Signed On 02-21-18 12:44:46 CDT by Nazario Anderson
== END 2018-02-20 23:15 | disposition left against medical advice (07) ==
LOC: ER 19:20
DX: R07.9 Chest pain, unspecified (principal); I10 Essential (primary) hypertension; I25.2 Old myocardial infarction; E78.00 Pure hypercholesterolemia, unspecified; J44.9 Chronic obstructive pulmonary disease, unspecified; F17.210 Nicotine dependence, cigarettes, uncomplicated; Z79.82 Long term (current) use of aspirin; Z82.49 Family history of ischemic heart disease and other diseases of the circulatory system; Z88.8 Allergy status to other drugs, medicaments and biological substances
CPT/HCPCS: 36415; 71045; 80048; 80076; 81003; 82550; 82553; 83735; 83880; 84484; 85025; 85610; 85730; 93005; 96361; 96374; 99285; J7030

== ENCOUNTER 2018-02-28 11:32 | Observation (INO) | payer SELFPAY ==
[2018-02-28] MEDS ORDERED: ASPIRIN 81 MG CHEWABLE TABLET ONE (11:59)
[2018-02-28] MEDS ORDERED: METOPROLOL TAR 50 MG TAB ONE (12:00)
[2018-02-28] MEDS ORDERED: NA CHLORIDE 0.9% 1,000 ML ONE (12:00)
[2018-02-28] MEDS ORDERED: ENOXAPARIN 100 MG/ML SYR SQ ONE (12:00)
--- NOTE | 2018-02-28 12:24 | EKG ---
Test Date: 2018-02-28 Test Time: 11:40:08 Communications Senior Associate: AG/V MEASUREMENT RESULTS: Intervals: Rate: 94 WA: 130 QRSD: 96 QT: 344 QTc: 430 [place]: P: 62 WA: 130 QRS: 57 T: -77 INTERPRETIVE STATEMENTS: Normal sinus rhythm ST & T wave abnormality, consider inferior ischemia Abnormal ECG Compared to ECG 02/20/2018 19:17:48 Sinus tachycardia no longer present Myocardial infarct finding no longer present ST (T wave) deviation still present Possible ischemia still present Electronically Signed On 02-28-18 12:24:04 CDT by Nazario Anderson
--- NOTE | 2018-02-28 12:25 | RAD REPORT ---
EXAM DESCRIPTION: RAD - Chest Single View - 02/28/2018 12:19 pm CLINICAL HISTORY: CHEST PAIN Chest pain. COMPARISON: Chest Single View dated 02/20/2018; Chest Single View dated 02/18/2018; Chest Single View dated 02/08/2018; Chest Single View dated 11/24/2017 FINDINGS: Portable technique limits examination quality. The lungs are grossly clear. The heart is normal in size. No displaced fractures. IMPRESSION: No acute intrathoracic process suspected.
[2018-02-28 12:29] LABS: Absolute Lymphocytes (CBC) 1.4 K/uL (0.7-4.9); Absolute Monocytes 0.3 K/uL (0.1-1.3); Absolute Neutrophil 9.7 K/uL (1.8-8.0); Basophils % 1.1 % (0-1.3); Eosinophils % 0.1 % (0-4.4); Hematocrit 47.1 % (39.6-49.0); Lymphocytes % 12.4 % (15.3-44.8); MCH 32.2 pg (27.0-35.0); MCV 93.5 fL (80-100); MPV 10.2 fL (7.6-11.3); Monocytes % 2.8 % (3.3-12.3); RBC Red Blood Cell Count 5.04 M/uL (4.33-5.43)
--- NOTE | 2018-02-28 12:38 | ER ---
Nurse's Notes [facility] Name: Juan Miguel Langston Age: 52 yrs Sex: Male : 1965 Arrival Date: 02/28/2018 Time: 11:35 Bed 17 Private MD: Diagnosis: Chest pain, unspecified;Essential (primary) hypertension Presentation: 02/28 11:36 Presenting complaint: EMS states: C/o chest pain, rated 8/10. Initial BP was 210/110, jl7 BP just prior to arrival was 168/90. He took 2 nitro and 1 81 mg aspirin prior to calling us out. Transition of care: patient was not received from another setting of care. Onset of symptoms was February 28, 2018. Risk Assessment: Do you want to hurt yourself or someone else? Patient reports no desire to harm self or others. Initial Sepsis Screen: Does the patient meet any 2 criteria? No. Patient's initial sepsis screen is negative. Does the patient have a suspected source of infection? No. Patient's initial sepsis screen is negative. Care prior to arrival: IV initiated. 18 GA, in the left antecubital area. 11:36 Method Of Arrival: EMS: [facility] jl7 11:36 Acuity: DESTINY 3 jl7 Triage Assessment: 11:41 General: Appears in no apparent distress. uncomfortable, Behavior is calm, cooperative, jl7 appropriate for age. Pain: Complains of pain in mid-sternal area Pain radiates to anterior aspect of right upper chest and anterior aspect of left upper chest Pain currently is 7 out of 10 on a pain scale. at worst was 8 out of 10 on a pain scale. Quality of pain is described as aching, crampy, Pain began years ago. Is continuous. EENT: No signs and/or symptoms were reported regarding the EENT system. Neuro: Level of Consciousness is awake, alert, obeys commands, Oriented to person, place, time, situation. Cardiovascular: Heart tones S1 S2 present Patient's skin is warm and dry. Respiratory: Airway is patent Respiratory effort is even, unlabored, Respiratory pattern is regular, symmetrical, Breath sounds are clear bilaterally. Denies shortness of breath. GI: No signs and/or symptoms were reported involving the gastrointestinal system. Patient currently denies constipation, diarrhea, nausea, vomiting. : No signs and/or symptoms were reported regarding the genitourinary system. Denies burning with urination, inability to void, urgency. Derm: Skin is pink, warm \T\ dry. Musculoskeletal: No signs and/or symptoms reported regarding the musculoskeletal system. Range of motion: intact in all extremities. Historical: - Allergies: 11:41 NKA; jl7 - Home Meds: 11:41 aspirin 81 mg Oral chew 1 tab once daily [Active]; fluticasone-salmeterol inhalation jl7 [Active]; lisinopril 20 mg Oral tab 1 tab once daily [Active]; nitroglycerin 0.4 mg SL subl 1 tab every 5 minutes [Active]; pantoprazole 40 mg Oral TbEC 1 tab once daily [Active]; ProAir HFA inhalation [Active]; - PMHx: 11:41 Angina; High Cholesterol; Hypertension; Myocardial infarction; jl7 - PSHx: 11:41 None; jl7 - Immunization history:: Adult Immunizations unknown. - Social history:: Smoking status: Patient uses tobacco products, smokes one-half pack cigarettes per day. - Ebola Screening: : No symptoms or risks identified at this time. - Family history:: not pertinent. Screenin:49 Abuse screen: Denies threats or abuse. Denies injuries from another. Nutritional jl7 screening: No deficits noted. Tuberculosis screening: No symptoms or risk factors identified. Fall Risk IV access (20 points). Total [place] Fall Scale indicates No Risk (0-24 pts). Assessment: 11:47 General: See triage assessment. Pt placed on 2 lpm NC at this time.. Pain: Complains of jl7 pain in mid-sternal area Pain radiates to anterior aspect of right upper chest and anterior aspect of left upper chest Pain currently is 7 out of 10 on a pain scale. Quality of pain is described as aching, crampy, Pain began years ago. Is continuous. Vital Signs: 11:41 BP 143 / 83; Pulse 99; Resp 16 S; Pulse Ox 94% on R/A; Weight 98.43 kg (R); Height 5 jl7 ft. 6 in. (167.64 cm) (R); Pain 7/10; 11:50 Pulse Ox 96% on 2 lpm NC; jl7 12:25 BP 139 / 83; Pulse 100; Resp 18 S; Pulse Ox 96% on R/A; Pain 7/10; jl7 13:10 BP 121 / 76; Pulse 69; Resp 16; Pulse Ox 97% ; jl7 14:17 BP 121 / 52; Pulse 71; Resp 13; Pulse Ox 97% on R/A; 5 11:41 Body Mass Index 35.02 (98.43 kg, 167.64 cm) jl7 ED Course: 11:35 Patient arrived in ED. jl7 11:39 Triage completed. jl7 11:41 Arm band placed on right wrist. jl7 11:46 Lenard Rosario MD is Attending Physician. [facility] 11:48 EKG done, by farm equipment service technician. reviewed by Lenard Rosario MD. at1 11:49 Patient has correct armband on for positive identification. Placed in gown. Bed in low jl7 position. Call light in reach. Side rails up X2. satellite project site monitor on. Pulse ox on. NIBP on. Warm blanket given. 11:49 Maintain EMS IV. Dressing intact. Good blood return noted. Site clean \T\ dry. Gauge \T\ jl 7 site: 18 left AC. Oxygen administration via nasal cannula \T\ 2L/min. 11:50 Redd Hunt RN is Primary Nurse. 7 12:19 X-ray completed. Portable x-ray completed in exam room. Patient tolerated procedure ml well. 12:20 XRAY Chest (1 view) In Process Unspecified. EDNE 12:37 Kranthi Bloom MD is Hospitalizing Provider. [facility] 15:08 Repeat lab(s) drawn. by mt, sent to lab. [facility] 17:12 No provider procedures requiring assistance completed. IV discontinued, intact, jl7 bleeding controlled, No redness/swelling at site. Pressure dressing applied. Administered Medications: 12:20 Drug: NS 0.9% 1000 ml Route: IV; Rate: 75 ml/hr; Site: left antecubital; jl7 17:14 Follow up: Response: No adverse reaction; IV Status: Completed infusion jl7 12:28 Drug: Aspirin Chewable Tablet 162 mg Route: PO; jl7 13:10 Follow up: Response: No adverse reaction 7 12:28 Drug: Lopressor (metoprolol TARTRATE) 50 mg Route: PO; jl7 13:10 Follow up: BP 121 / 76; Pulse 69 bpm; Resp 16 bpm; Pulse Ox 97% 7 13:11 Follow up: Response: Blood pressure is lowered; Other; HR is lowered jl7 12:28 Drug: Lovenox 1 mg/kg Route: Sub-Q; Site: abdomen; 7 13:12 Follow up: Response: No adverse reaction jl7 Outcome: 12:38 Decision to Hospitalize by Provider. rambo 17:12 Discharged to home ambulatory. jl7 17:12 Condition: stable 17:12 Discharge instructions given to patient, Instructed on discharge instructions, follow up and referral plans. Demonstrated understanding of instructions, follow-up care. 17:13 Patient left the ED. jl7 Signatures: Dispatcher [employer] EDMS Lenard Rosario MD MD cha Lopez, Melissa ml Gonzales, Amanda, car dryer EKG [facility] [facility] Redd Hunt RN RN jl7
--- NOTE | 2018-02-28 12:38 | EDPHYS ---
Physician Documentation [facility] Name: Juan Miguel Langston Age: 52 yrs Sex: Male : 1965 Arrival Date: 02/28/2018 Time: 11:35 Bed 17 Private MD: ED Physician Lenard Rosario HPI: 02/28 11:52 This 52 yrs old Male presents to ER via EMS with complaints of Chest Pain > rambo 30 y/o. 11:52 The patient or guardian reports chest pain that is located primarily in the substernal rambo area. Onset: just prior to arrival. The pain does not radiate. Associated signs and symptoms: The patient has no apparent associated signs or symptoms. The chest pain is described as a pressure. Duration: The patient or guardian reports a single episode, that is now resolved. Modifying factors: The symptoms are alleviated by nothing. the symptoms are aggravated by nothing. Severity of pain: At its worst the pain was mild in the emergency department the pain is unchanged. The patient has experienced similar episodes in the past, several times. Historical: - Allergies: 11:41 NKA; jl7 - Home Meds: 11:41 aspirin 81 mg Oral chew 1 tab once daily [Active]; fluticasone-salmeterol inhalation jl7 [Active]; lisinopril 20 mg Oral tab 1 tab once daily [Active]; nitroglycerin 0.4 mg SL subl 1 tab every 5 minutes [Active]; pantoprazole 40 mg Oral TbEC 1 tab once daily [Active]; ProAir HFA inhalation [Active]; - PMHx: 11:41 Angina; High Cholesterol; Hypertension; Myocardial infarction; jl7 - PSHx: 11:41 None; jl7 - Immunization history:: Adult Immunizations unknown. - Social history:: Smoking status: Patient uses tobacco products, smokes one-half pack cigarettes per day. - Ebola Screening: : No symptoms or risks identified at this time. - Family history:: not pertinent. ROS: 11:52 Constitutional: Negative for fever, chills, and weight loss, Eyes: Negative for injury, rambo pain, redness, and discharge, ENT: Negative for injury, pain, and discharge, Neck: Negative for injury, pain, and swelling, Respiratory: Negative for shortness of breath, cough, wheezing, and pleuritic chest pain, Abdomen/GI: Negative for abdominal pain, nausea, vomiting, diarrhea, and constipation, Back: Negative for injury and pain, : Negative for injury, bleeding, discharge, and swelling, MS/Extremity: Negative for injury and deformity, Skin: Negative for injury, rash, and discoloration, Neuro: Negative for headache, weakness, numbness, tingling, and seizure, Psych: Negative for depression, anxiety, suicide ideation, homicidal ideation, and hallucinations, Allergy/Immunology: Negative for hives, rash, and allergies, Endocrine: Negative for neck swelling, polydipsia, polyuria, polyphagia, and marked weight changes, Hematologic/Lymphatic: Negative for swollen nodes, abnormal bleeding, and unusual bruising. 11:52 Cardiovascular: Positive for chest pain, palpitations. Exam: 11:52 Constitutional: This is a well developed, well nourished patient who is awake, alert, rambo and in no acute distress. Head/Face: Normocephalic, atraumatic. Eyes: Pupils equal round and reactive to light, extra-ocular motions intact. Lids and lashes normal. Conjunctiva and sclera are non-icteric and not injected. Cornea within normal limits. Periorbital areas with no swelling, redness, or edema. ENT: Nares patent. No nasal discharge, no septal abnormalities noted. Tympanic membranes are normal and external auditory canals are clear. Oropharynx with no redness, swelling, or masses, exudates, or evidence of obstruction, uvula midline. Mucous membranes moist. Neck: Trachea midline, no thyromegaly or masses palpated, and no cervical lymphadenopathy. Supple, full range of motion without nuchal rigidity, or vertebral point tenderness. No Meningismus. Chest/axilla: Normal chest wall appearance and motion. Nontender with no deformity. No lesions are appreciated. Cardiovascular: Regular rate and rhythm with a normal S1 and S2. No gallops, murmurs, or rubs. Normal PMI, no JVD. No pulse deficits. Abdomen/GI: Soft, non-tender, with normal bowel sounds. No distension or tympany. No guarding or rebound. No evidence of tenderness throughout. Back: No spinal tenderness. No costovertebral tenderness. Full range of motion. Male : Normal genitalia with no discharge or lesions. Skin: Warm, dry with normal turgor. Normal color with no rashes, no lesions, and no evidence of cellulitis. MS/ Extremity: Pulses equal, no cyanosis. Neurovascular intact. Full, normal range of motion. Neuro: Awake and alert, GCS 15, oriented to person, place, time, and situation. Cranial nerves II-XII grossly intact. Motor strength 5/5 in all extremities. Sensory grossly intact. Cerebellar exam normal. Normal gait. Psych: Awake, alert, with orientation to person, place and time. Behavior, mood, and affect are within normal limits. 11:52 Respiratory: the patient does not display signs of respiratory distress, Respirations: normal, Breath sounds: decreased breath sounds, rhonchi, that are mild, are scattered, Respiratory rate: 16 12:36 Musculoskeletal/extremity: DVT Exam: No signs of deep vein thrombosis. no pain, no rambo swelling, no tenderness, negative Homans' sign noted on exam, no appreciated bluish discoloration, no erythema, no increased warmth. Vital Signs: 11:41 BP 143 / 83; Pulse 99; Resp 16 S; Pulse Ox 94% on R/A; Weight 98.43 kg (R); Height 5 jl7 ft. 6 in. (167.64 cm) (R); Pain 7/10; 11:50 Pulse Ox 96% on 2 lpm NC; jl7 12:25 BP 139 / 83; Pulse 100; Resp 18 S; Pulse Ox 96% on R/A; Pain 7/10; jl7 13:10 BP 121 / 76; Pulse 69; Resp 16; Pulse Ox 97% ; jl7 14:17 BP 121 / 52; Pulse 71; Resp 13; Pulse Ox 97% on R/A; mh5 11:41 Body Mass Index 35.02 (98.43 kg, 167.64 cm) 7 MDM: 11:46 Patient medically screened. [facility] 11:54 Data reviewed: vital signs, nurses notes, lab test result(s), EKG, radiologic studies, [facility] plain films. 02/28 11:47 Order name: Basic Metabolic Panel [facility] 02/28 11:47 Order name: CBC with Diff; Complete Time: 12:36 [facility] 02/28 11:47 Order name: Ckmb [facility] 02/28 11:47 Order name: CPK [facility] 02/28 11:47 Order name: LFT's [facility] 02/28 11:47 Order name: Magnesium [facility] 02/28 11:47 Order name: NT PRO-BNP [facility] 02/28 11:47 Order name: PT-INR [facility] 02/28 11:47 Order name: Ptt, Activated [facility] 02/28 11:47 Order name: Troponin (emerg Dept Use Only) [facility] 02/28 11:47 Order name: Lipase [facility] 02/28 11:55 Order name: TSH 02/28 11:55 Order name: UDS 02/28 13:06 Order name: Urine Dipstick--Ancillary (enter results) 02/28 11:47 Order name: XRAY Chest (1 view); Complete Time: 12:36 [facility] 02/28 11:47 Order name: EKG; Complete Time: 11:48 [facility] 02/28 11:47 Order name: Cardiac monitoring; Complete Time: 11:51 [facility] 02/28 11:47 Order name: EKG - Nurse/Tech; Complete Time: 11:51 [facility] 02/28 11:47 Order name: IV Saline Lock; Complete Time: 11:51 [facility] 02/28 11:47 Order name: Labs collected and sent; Complete Time: 11:51 [facility] 02/28 11:47 Order name: O2 Per Protocol; Complete Time: 11:51 [facility] 02/28 11:47 Order name: O2 Sat Monitoring; Complete Time: 11:51 [facility] 02/28 11:47 Order name: Urine Dipstick-Ancillary (obtain specimen); Complete Time: 13:12 [facility] 02/28 12:41 Order name: CONS Physician Consult [facility] 02/28 13:17 Order name: Urine Dipstick-Ancillary [facility] 02/28 15:37 Order name: Troponin I [facility] Administered Medications: 12:20 Drug: NS 0.9% 1000 ml Route: IV; Rate: 75 ml/hr; Site: left antecubital; jl7 17:14 Follow up: Response: No adverse reaction; IV Status: Completed infusion 12:28 Drug: Aspirin Chewable Tablet 162 mg Route: PO; jl7 13:10 Follow up: Response: No adverse reaction 12:28 Drug: Lopressor (metoprolol TARTRATE) 50 mg Route: PO; jl7 13:10 Follow up: BP 121 / 76; Pulse 69 bpm; Resp 16 bpm; Pulse Ox 97% jl7 13:11 Follow up: Response: Blood pressure is lowered; Other; HR is lowered 7 12:28 Drug: Lovenox 1 mg/kg Route: Sub-Q; Site: abdomen; jl7 13:12 Follow up: Response: No adverse reaction jl7 Disposition: 02/28/18 12:38 Hospitalization ordered by Kranthi Bloom for Observation. Preliminary diagnosis are Chest pain, unspecified, Essential (primary) hypertension. - Bed requested for [facility] ER HOLD. - Status is Observation. jl7 - Condition is Fair. - Problem is new. - Symptoms have improved. UTI on Admission? No Signatures: Dispatcher [employer] EDMS Lenard Rosario MD MD cha Williams, Irene, RN RN iw Redd Hunt RN RN jl7 Corrections: (The following items were deleted from the chart) 16:11 12:38 Hospitalization Ordered by Kranthi Bloom MD for Observation. Preliminary iw diagnosis is Chest pain, unspecified; Essential (primary) hypertension. Bed requested for Telemetry/MedSurg (observation). Status is Observation. Condition is Fair. Problem is new. Symptoms have improved. UTI on Admission? No. [facility] 16:12 16:11 02/28/2018 12:38 Hospitalization Ordered by Kranthi Bloom MD for Observation. iw Preliminary diagnosis is Chest pain, unspecified; Essential (primary) hypertension. Bed requested for [facility] ER HOLD. Status is Observation. Condition is Fair. Problem is new. Symptoms have improved. UTI on Admission? No. iw 17:13 16:12 02/28/2018 12:38 Hospitalization Ordered by Kranthi Bloom MD for Observation. jl7 Preliminary diagnosis is Chest pain, unspecified; Essential (primary) hypertension. Bed requested for [facility] ER HOLD. Status is Observation. Condition is Fair. Problem is new. Symptoms have improved. UTI on Admission? No. iw
[2018-02-28 12:51] LABS: ALT/SGPT 81 U/L (12-78); AST/SGOT 24 U/L (15-37); Albumin 3.7 g/dL (3.4-5.0); Alkaline Phosphatase 47 U/L (45-117); BUN Blood Urea Nitrogen 17 mg/dL (7-18); Bicarbonate 24 mmol/L (21-32); Bilirubin Direct < 0.1 mg/dL (0-0.2); Bilirubin Total 0.2 mg/dL (0.2-1.0); CKMB Creatine Kinase MB 1.9 ng/mL (0.3-3.6); Creatine Phosphokinase 129 U/L (39-308); Glucose Level 151 mg/dL (74-106); Lipase 255 U/L (73-393); NT PRO-BNP 37 pg/mL (<125); Potassium 3.6 mmol/L (3.5-5.1); Protein, Total 7.1 g/dL (6.4-8.2); Sodium Level 140 mmol/L (136-145)
[2018-02-28 13:16] LABS: Urine Blood TRACE (NEG); Urine Glucose NEGATIVE (NEG); Urine Protein 1+ (NEG)
[2018-02-28 13:20] LABS: Barbiturates NEGATIVE (NEGATIVE); Benzodiazepines NEGATIVE (NEGATIVE); Cocaine NEGATIVE (NEGATIVE); METHAMPHETAM NEGATIVE (NEGATIVE); Methadone NEGATIVE (NEGATIVE); Opiates NEGATIVE (NEGATIVE); Phencyclidine NEGATIVE (NEGATIVE); THC Cannibis NEGATIVE (NEGATIVE)
--- NOTE | 2018-02-28 16:14 | P.SSS ---
Patient History Date of Service: 02/28/18 Reason for admission: chest pain History of Present Illness: Mr Langston is a 52 years old male with history of CAD, HTN, tobacco abuse, who has multiple visit to ER and admission to the hospital due to chest pain. He has been evaluated by cardiology team several times, the patient is known to be a non-compliant with his medical treatment. He has seen Dr Anderson last week. He came today to the ER complaining of chest pain. The pain is come and go, lasting for 1-2 hours every time. The intensity is 8/10, burning like, sternal location. The pain is worse with breathing movements and is reproducible with palpation. He denied any SOB, vomiting, diaphoresis or dizziness. Allergies Beta-Blockers (Beta-Adrenergic Bloc Adverse Reaction (Verified 10/09/17 11:30) Anaphylaxis metoprolol Adverse Reaction (Verified 10/10/17 06:56) Anaphylaxis No Known Allergies Allergy (Uncoded 10/10/17 20:05) Unknown Home medications list reviewed: Yes Home Medications: Lovastatin 40 mg PO DAILY #30 tablet 11/25/17 Nitroglycerin [Nitrostat*] 0.4 mg SL UD PRN #30 tab 11/25/17 Isosorbide Mononitrate [Isosorbide Mononitrate ER] 30 mg PO DAILY 02/08/18 Albuterol Sulfate [Proair Hfa] 8.5 gm IH TID PRN #1 hfa.aer.ad 02/09/18 Aspirin [Aspirin EC 81 MG] 81 mg PO DAILY #30 tablet. 02/09/18 Lisinopril [Prinivil*] 20 mg PO DAILY #30 tab 02/09/18 Mometasone/Formoterol [Dulera 100 Mcg/5 Mcg Inhaler] 2 puff IH BID #1 inhaler Pantoprazole [Protonix Tab*] 40 mg PO DAILYAC #30 tab 02/09/18 - Past Medical/Surgical History Diabetic: No -: Angina -: HTN -: Hyperlipidemia -: Tobacco abuse -: CAD -: COPD -: GERD -: Noncompliance with medication and follow up -: CARDIAC CATH 12/2013 NO STENTS 30% BLOCKAGE PER PT -: Cardiac stress tests October 2017 showed no stress-induced ischemia Psychosocial/ Personal History: Patient is single. Patient is homeless. - Family History MOM -: Heart disease, Other (see notes) Notes: MASSIVE VA 61YR and arthritis DAD -: Heart disease, Other (see notes) Notes: POOR CIRCULATION TO LEGS PER PT - Social History Smoking Status: Current every day smoker Counseled patient to stop smoking for: less than 10 minutes Smoking therapy provided: Yes Patient receptive to therapy: No Alcohol use: No CD- Drugs: No Caffeine use: Yes Review of Systems 10-point ROS is otherwise unremarkable Physical Examination - Physical Exam General: Alert, In no apparent distress HEENT: Atraumatic, PERRLA, Mucous membr. moist/pink, EOMI, Sclerae nonicteric Neck: Supple, 2+ carotid pulse no bruit, No LAD, Without JVD or thyroid abnormality Respiratory: Clear to auscultation bilaterally, Normal air movement Cardiovascular: Regular rate/rhythm, Normal S1 S2 Gastrointestinal: Normal bowel sounds, No tenderness Musculoskeletal: Other (sternal chest pain with palpation, similar to chest pain complained.) Integumentary: No rashes Neurological: Normal gait, Normal speech, Normal strength at 5/5 x4 extr, Normal tone, Normal affect Lymphatics: No axilla or inguinal lymphadenopathy - Studies Laboratory Data (last 24 hrs) 02/28/18 11:40: PT 11.8, INR 1.00, APTT 27.6 02/28/18 11:40: WBC 11.6 H D, Hgb 16.2, Hct 47.1, Plt Count 296 02/28/18 11:40: Sodium 140, Potassium 3.6, BUN 17, Creatinine 1.00, Glucose 151 H, Magnesium 2.0, Total Bilirubin 0.2, AST 24, ALT 81 H, Alkaline Phosphatase 47 , Lipase 255 - Diagnosis (Problem(s)) (1) Chest pain Onset Date: 02/09/18 Current Visit: No Status: Acute Qualifiers: Chest pain type: chest pain on breathing Qualified Code(s): R07.1 - Chest pain on breathing; R07.81 - Pleurodynia (2) Non-compliance Current Visit: No Status: Acute (3) CAD (coronary artery disease) Onset Date: 02/09/18 Current Visit: No Status: Chronic Qualifiers: Coronary Disease-Associated Artery/Lesion type: [place] artery [place] vs. transplanted heart: [place] heart Associated angina: angina presence unspecified Qualified Code(s): I25.10 - Atherosclerotic heart disease of [place] coronary artery without angina pectoris (4) HTN (hypertension) Onset Date: 02/09/18 Current Visit: No Status: Chronic Qualifiers: Hypertension type: essential hypertension Qualified Code(s): I10 - Essential (primary) hypertension (5) Tobacco abuse Onset Date: 02/09/18 Current Visit: No Status: Chronic Treatment Summary: The patient was evaluated for chest pain. His chest pain is atypical per nature. He has 2 set of troponin I negative. EKG shows no new changes. I have discussed the case with Dr Andersno, who feels comfortable following the patient in his office next week. The patient will be discharge home in stable condition. - Disposition Disposition: ROUTINE DISCHARGE Condition: GOOD Diet: AHA Activity: Ad yasmine Time Spent Managing Pts Care (In Minutes): 120
[2018-02-28 17:21] VITALS: O2SAT 97
[2018-02-28 17:22] VITALS: BP 121/52
== END 2018-02-28 17:12 | disposition home or self-care (01) ==
LOC: ER 11:32 → ERHOLD 12:39
PROVIDERS: ADMIT Internal Medicine; ATTEND Internal Medicine
DX: R07.89 Other chest pain (principal); I25.10 Atherosclerotic heart disease of native coronary artery without angina pectoris; I10 Essential (primary) hypertension; F17.210 Nicotine dependence, cigarettes, uncomplicated; Z91.19 Patient's noncompliance with other medical treatment and regimen; Z59.0 Homelessness
CPT/HCPCS: 36415; 71045; 80048; 80076; 80307; 81003; 82550; 82553; 83690; 83735; 83880; 84443; 84484; 85025; 85610; 85730; 93005; 96360; 96361; 96372; 99285; G0378; J1650; J7030

== ENCOUNTER 2018-03-02 13:59 | Emergency (ER) | payer SELFPAY ==
[2018-03-02] MEDS ORDERED: METOPROLOL TAR 25 MG TAB ONE (14:12)
[2018-03-02 14:22] LABS: Absolute Lymphocytes (CBC) 1.4 K/uL (0.7-4.9); Absolute Monocytes 0.3 K/uL (0.1-1.3); Absolute Neutrophil 8.9 K/uL (1.8-8.0); Basophils % 0.2 % (0-1.3); Eosinophils % 0.1 % (0-4.4); Hematocrit 48.8 % (39.6-49.0); Lymphocytes % 13.6 % (15.3-44.8); MCH 32.6 pg (27.0-35.0); MCV 93.1 fL (80-100); MPV 9.5 fL (7.6-11.3); Monocytes % 2.4 % (3.3-12.3); RBC Red Blood Cell Count 5.24 M/uL (4.33-5.43)
--- NOTE | 2018-03-02 14:28 | RAD REPORT ---
EXAM DESCRIPTION: RAD - Chest Single View - 03/02/2018 2:18 pm CLINICAL HISTORY: CHEST PAIN Chest pain. COMPARISON: Chest Single View dated 02/28/2018; Chest Single View dated 02/20/2018; Chest Single View dated 02/18/2018; Chest Single View dated 02/08/2018 FINDINGS: Portable technique limits examination quality. The lungs are grossly clear. The heart is normal in size. No displaced fractures. IMPRESSION: No acute intrathoracic process suspected.
[2018-03-02 14:38] LABS: BUN Blood Urea Nitrogen 14 mg/dL (7-18); Bicarbonate 25 mmol/L (21-32); Glucose Level 107 mg/dL (74-106); Potassium 3.9 mmol/L (3.5-5.1); Sodium Level 140 mmol/L (136-145)
--- NOTE | 2018-03-02 15:00 | ER ---
Nurse's Notes [facility] Name: Juan Miguel Langston Age: 52 yrs Sex: Male : 1965 Arrival Date: 03/02/2018 Time: 13:54 Bed 2 Private MD: Diagnosis: Hypertensive heart disease;Chest pain, unspecified Presentation: 03/02 13:54 Presenting complaint: EMS states: patient road bike to EMS station stating that he ss needed his blood pressure checked. Pt also reported his "normal chest pain" 01/10. Pt reports to EMS that he is unable to take his BP medication because he cannot afford them. Transition of care: patient was not received from another setting of care. Onset of symptoms is unknown. Risk Assessment: Do you want to hurt yourself or someone else? Patient reports no desire to harm self or others. Initial Sepsis Screen: Does the patient meet any 2 criteria? No. Patient's initial sepsis screen is negative. Does the patient have a suspected source of infection? No. Patient's initial sepsis screen is negative. Care prior to arrival: None. 13:54 Method Of Arrival: EMS: [facility] 13:54 Acuity: DESTINY 3 ss Historical: - Allergies: 13:56 NKA; ss - PMHx: 13:56 Angina; High Cholesterol; Hypertension; Myocardial infarction; ss - Immunization history:: Adult Immunizations up to date. - Social history:: Smoking status: Patient uses tobacco products, smokes one-half pack cigarettes per day. - Ebola Screening: : Patient denies exposure to infectious person Patient denies travel to an Ebola-affected area in the 21 days before illness onset. - Family history:: not pertinent. - Hospitalizations: : The patient was recently seen at [facility]. Screenin:58 Abuse screen: Denies threats or abuse. Denies injuries from another. Nutritional sv screening: No deficits noted. Tuberculosis screening: No symptoms or risk factors identified. Fall Risk None identified. Assessment: 13:50 General: Appears in no apparent distress. comfortable, well developed, Behavior is sv calm, cooperative, appropriate for age. Pain: Complains of pain in chest Pain currently is 7 out of 10 on a pain scale. Is continuous. Neuro: Level of Consciousness is awake, alert, obeys commands, Oriented to person, place, time, situation, Moves all extremities. Full function Speech is normal. Cardiovascular: Patient's skin is warm and dry. Pulses are 3+ in right radial artery and left radial artery Rhythm is sinus rhythm. Respiratory: Respiratory effort is even, unlabored, Respiratory pattern is regular, symmetrical. GI: No signs and/or symptoms were reported involving the gastrointestinal system. : No signs and/or symptoms were reported regarding the genitourinary system. EENT: No signs and/or symptoms were reported regarding the EENT system. Derm: Skin is normal, Skin temperature is warm. Musculoskeletal: No signs and/or symptoms reported regarding the musculoskeletal system. 14:45 Reassessment: Patient appears in no apparent distress at this time. Patient and/or hb family updated on plan of care and expected duration. Pain level reassessed. Patient is alert, oriented x 3, equal unlabored respirations, skin warm/dry/pink. 15:35 Reassessment: Patient appears in no apparent distress at this time. Patient and/or hb family updated on plan of care and expected duration. Pain level reassessed. Patient is alert, oriented x 3, equal unlabored respirations, skin warm/dry/pink. Vital Signs: 13:56 BP 164 / 86; Pulse 97; Resp 15; Pulse Ox 97% on R/A; Weight 98.43 kg; Height 5 ft. 6 ss in. (167.64 cm); Pain 7/10; 14:00 Temp 98.3; sv 14:52 BP 153 / 80; Pulse 91; Resp 15; Pulse Ox 95% on R/A; sv 13:56 Body Mass Index 35.02 (98.43 kg, 167.64 cm) ED Course: 13:54 Patient arrived in ED. ss 13:55 Nate Donald MD is Attending Physician. rn 13:55 Initial lab(s) drawn, by ct, sent to lab. Inserted saline lock: 20 gauge in right sv antecubital area, using aseptic technique. Blood collected. 13:56 Triage completed. ss 13:56 Nilda Olea, NICCI is Primary Nurse. sv 13:56 Arm band placed on right wrist. ss 13:57 EKG done, by hyperbaric tech. reviewed by Nate Donald MD. sm3 13:58 Patient has correct armband on for positive identification. Placed in gown. Bed in low sv position. Side rails up X2. Adult w/ patient. radiation monitor on. Pulse ox on. NIBP on. Door closed. Head of bed elevated. 14:01 ED physician to see patient. sv 14:17 X-ray completed. Portable x-ray completed in exam room. Patient tolerated procedure mh1 well. 14:18 XRAY Chest (1 view) In Process Unspecified. EDMS 15:35 No provider procedures requiring assistance completed. IV discontinued, intact, hb bleeding controlled, No redness/swelling at site. Pressure dressing applied. Administered Medications: 14:14 Not Given (Patient Refused; stated it makes his HR go down "dangerously low"): sv Metoprolol 25 mg PO once Outcome: 15:00 Discharge ordered by . rn 15:35 Discharged to home ambulatory, with significant other. 15:35 Condition: stable 15:35 Discharge instructions given to patient, Instructed on discharge instructions, follow up and referral plans. Demonstrated understanding of instructions, follow-up care. 15:36 Patient left the ED. Signatures: Dispatcher [employer] EDTX Nilda Olea RN RN Gris Winter [facility] Nate Donald MD MD rn Smirch, Shelby, RN RN Kym Jim RN RN hb Montes, Shakira 3
--- NOTE | 2018-03-02 15:00 | EDPHYS ---
Physician Documentation [facility] Name: Juan Miguel Langston Age: 52 yrs Sex: Male : 1965 Arrival Date: 03/02/2018 Time: 13:54 Bed 2 Private MD: ED Physician Nate Donald HPI: 03/02 14:31 This 52 yrs old Male presents to ER via EMS with complaints of High Blood rn Pressure. 14:31 The patient has elevated blood pressure and discovered this at home. Onset: The rn symptoms/episode began/occurred at an unknown time. Modifying factors: The symptoms are aggravated by activity. Severity of symptoms: At its worst the blood pressure was mild, in the emergency department the blood pressure is unchanged. The patient has experienced similar episodes in the past. Reports working outside, felt lightheaded and like his blood pressure was elevated, had 1 minute of chest pain, walked to EMS station, then transported here. Has been here multiple times for blood pressure and chest pain evals, last admitted this month, approx 2-3 weeks ago, had normal stress without ischemia and cleared by cardiology, patient reports 3 heart caths in past and no stents. No current chest pain. Still smoking, denies drug use.. Historical: - Allergies: 13:56 NKA; ss - PMHx: 13:56 Angina; High Cholesterol; Hypertension; Myocardial infarction; ss - Immunization history:: Adult Immunizations up to date. - Social history:: Smoking status: Patient uses tobacco products, smokes one-half pack cigarettes per day. - Ebola Screening: : Patient denies exposure to infectious person Patient denies travel to an Ebola-affected area in the 21 days before illness onset. - Family history:: not pertinent. - Hospitalizations: : The patient was recently seen at [facility]. ROS: 14:31 Constitutional: Negative for fever, chills, and weight loss, Eyes: Negative for injury, rn pain, redness, and discharge, Neck: Negative for injury, pain, and swelling, Cardiovascular: Negative for edema Respiratory: Negative for wheezing, and pleuritic chest pain, Abdomen/GI: Negative for abdominal pain, nausea, vomiting, diarrhea, and constipation, Back: Negative for injury and pain, MS/Extremity: Negative for injury and deformity, Skin: Negative for injury, rash, and discoloration, Neuro: Negative for headache, weakness, numbness, tingling, and seizure. Exam: 14:31 Constitutional: This is a well developed, well nourished patient who is awake, alert, rn and in no acute distress. Head/Face: Normocephalic, atraumatic. Eyes: Pupils equal round and reactive to light, extra-ocular motions intact. Lids and lashes normal. Conjunctiva and sclera are non-icteric and not injected. Cornea within normal limits. Periorbital areas with no swelling, redness, or edema. Cardiovascular: Regular rate and rhythm with a normal S1 and S2. No gallops, murmurs, or rubs. Normal PMI, no JVD. No pulse deficits. Respiratory: Lungs have equal breath sounds bilaterally, clear to auscultation and percussion. No rales, rhonchi or wheezes noted. No increased work of breathing, no retractions or nasal flaring. Abdomen/GI: Soft, non-tender, with normal bowel sounds. No distension or tympany. No guarding or rebound. No evidence of tenderness throughout. MS/ Extremity: Pulses equal, no cyanosis. Neurovascular intact. Full, normal range of motion. Equal circumference. Neuro: Awake and alert, GCS 15, oriented to person, place, time, and situation. Cranial nerves II-XII grossly intact. Motor strength 5/5 in all extremities. Sensory grossly intact. Vital Signs: 13:56 BP 164 / 86; Pulse 97; Resp 15; Pulse Ox 97% on R/A; Weight 98.43 kg; Height 5 ft. 6 ss in. (167.64 cm); Pain 7/10; 14:00 Temp 98.3; sv 14:52 BP 153 / 80; Pulse 91; Resp 15; Pulse Ox 95% on R/A; sv 13:56 Body Mass Index 35.02 (98.43 kg, 167.64 cm) ss MDM: 13:55 Patient medically screened. rn 14:59 Differential diagnosis: hypertensive crisis, Malignant HTN, chest pain. Data reviewed: rn vital signs, nurses notes, lab test result(s), EKG, radiologic studies, plain films, and as a result, I will discharge patient. Counseling: I had a detailed discussion with the patient and/or guardian regarding: the historical points, exam findings, and any diagnostic results supporting the discharge/admit diagnosis, lab results, radiology results, the need for outpatient follow up, to return to the emergency department if symptoms worsen or persist or if there are any questions or concerns that arise at home. Response to treatment: the patient's symptoms have mildly improved after treatment, and as a result, I will discharge patient. Special discussion: Based on the patient's history, exam, and Dx evaluation, there is no indication for emergent intervention or inpatient Tx. It is understood by the patient/guardian that if the Sx's persist or worsen they need to return immediately for re-evaluation. I discussed with the patient/guardian in detail that at this point there is no indication for admission to the hospital. It is understood, however, that if the symptoms persist or worsen the patient needs to return immediately for re-evaluation. 03/02 14:03 Order name: Basic Metabolic Panel; Complete Time: 14:50 rn 03/02 14:03 Order name: CBC with Diff; Complete Time: 14: rn 03/02 14:03 Order name: Troponin (emerg Dept Use Only); Complete Time: 14: rn 03/02 14:03 Order name: XRAY Chest (1 view); Complete Time: 14: rn 03/02 14:03 Order name: EKG; Complete Time: 14: rn 03/02 14:03 Order name: Cardiac monitoring; Complete Time: 14: rn 03/02 14:03 Order name: EKG - Nurse/Tech; Complete Time: 14: rn 03/02 14:03 Order name: IV Saline Lock; Complete Time: 14: rn 03/02 14:03 Order name: Labs collected and sent; Complete Time: 14: rn 03/02 14:03 Order name: O2 Per Protocol; Complete Time: 14: rn 03/02 14:03 Order name: O2 Sat Monitoring; Complete Time: 14: rn Administered Medications: 14:14 Not Given (Patient Refused; stated it makes his HR go down "dangerously low"): sv Metoprolol 25 mg PO once Disposition: 03/02/18 15:00 Discharged to Home. Impression: Hypertensive heart disease, Chest pain, unspecified. - Condition is Stable. - Discharge Instructions: Nonspecific Chest Pain, Hypertension. - Medication Reconciliation Form, Thank You Letter, Antibiotic Education, Prescription Opioid Use form. - Follow up: Private Physician; When: As needed; Reason: Recheck today's complaints, Re-evaluation by your physician. - Problem is new. - Symptoms have improved. Signatures: Dispatcher [employer] EDNate Arambula MD MD rn Smirch, Shelby, RN RN ss Baxter, Heather, RN RN hb Verde, Nilda garsia Corrections: (The following items were deleted from the chart) 15:36 15:00 03/02/2018 15:00 Discharged to Home. Impression: Hypertensive heart disease; hb Chest pain, unspecified. Condition is Stable. Forms are Medication Reconciliation Form, Thank You Letter, Antibiotic Education, Prescription Opioid Use. Follow up: Private Physician; When: As needed; Reason: Recheck today's complaints, Re-evaluation by your physician. Problem is new. Symptoms have improved. rn
[2018-03-02 15:48] VITALS: TEMP 98.3
[2018-03-02 15:49] VITALS: BP 153/80; O2SAT 95
--- NOTE | 2018-03-02 16:26 | EKG ---
Test Date: 2018-03-02 Test Time: 13:48:59 Retort Loader: ANGELO MEASUREMENT RESULTS: Intervals: Rate: 96 GA: 134 QRSD: 98 QT: 332 QTc: 419 [place]: P: 74 GA: 134 QRS: 83 T: -55 INTERPRETIVE STATEMENTS: Normal sinus rhythm ST & T wave abnormality, consider inferolateral ischemia Abnormal ECG Compared to ECG 02/28/2018 11:40:08 No significant changes Electronically Signed On 03-02-18 16:25:51 CDT by Nazario Anderson
== END 2018-03-02 15:36 | disposition home or self-care (01) ==
LOC: ER 13:59
DX: I11.9 Hypertensive heart disease without heart failure (principal); I10 Essential (primary) hypertension; I25.2 Old myocardial infarction; F17.210 Nicotine dependence, cigarettes, uncomplicated
CPT/HCPCS: 36415; 71045; 80048; 84484; 85025; 93005; 99284

== ENCOUNTER 2018-03-17 13:44 | Emergency (ER) | payer SELFPAY ==
[2018-03-17] MEDS ORDERED: NA CHLORIDE 0.9% 1,000 ML ONE (14:23)
[2018-03-17] MEDS ORDERED: ASPIRIN 81 MG CHEWABLE TABLET ONE (14:24)
[2018-03-17 14:55] LABS: Absolute Lymphocytes (CBC) 1.9 K/uL (0.7-4.9); Absolute Monocytes 0.6 K/uL (0.1-1.3); Absolute Neutrophil 4.8 K/uL (1.8-8.0); Basophils % 0.7 % (0-1.3); Eosinophils % 1.7 % (0-4.4); Hematocrit 46.7 % (39.6-49.0); Lymphocytes % 25.5 % (15.3-44.8); MCH 32.9 pg (27.0-35.0); MCV 95.2 fL (80-100); MPV 9.4 fL (7.6-11.3); Monocytes % 7.5 % (3.3-12.3); RBC Red Blood Cell Count 4.91 M/uL (4.33-5.43)
[2018-03-17 15:03] LABS: Protime INR 1.06
[2018-03-17] MEDS ORDERED: ENOXAPARIN 100 MG/ML SYR SQ ONE (15:09)
[2018-03-17] MEDS ORDERED: MORPHINE 4 MG/ML SYR ONE (15:09)
[2018-03-17] MEDS ORDERED: METOPROLOL TARTRATE 5 MG/5 ML INJ IV ONE (15:09)
--- NOTE | 2018-03-17 15:09 | ER ---
Nurse's Notes [facility] Name: Juan Miguel Langston Age: 52 yrs Sex: Male : 1965 Arrival Date: 03/17/2018 Time: 13:45 Bed 18 Private MD: None, None Diagnosis: Other chest pain Presentation: 03/17 14:19 Presenting complaint: Patient states: midsternal CP started at 1230 today, intermittent iw squeezing, took 2 SL nitro, pain has eased up but still 8/10, pain radiated to left arm. Transition of care: patient was not received from another setting of care. Onset of symptoms was March 17, 2018. Risk Assessment: Do you want to hurt yourself or someone else? Patient reports no desire to harm self or others. Initial Sepsis Screen: Does the patient meet any 2 criteria? No. Patient's initial sepsis screen is negative. Does the patient have a suspected source of infection? No. Patient's initial sepsis screen is negative. Care prior to arrival: Medication(s) given: Nitroglycerin, 0.4 mg SL x 2. 14:19 Method Of Arrival: Ambulatory iw 14:19 Acuity: DESTINY 3 iw Historical: - Allergies: 14:22 NKA; iw - Home Meds: 14:24 amlodipine 5 mg tab 1 tab once daily [Active]; nitroglycerin 0.4 mg SL subl 1 tab every iw 5 minutes [Active]; - PMHx: 14:22 Angina; High Cholesterol; Hypertension; iw - PSHx: 14:22 None; iw - Immunization history:: Adult Immunizations up to date. - Social history:: Smoking status: Patient uses tobacco products, smokes one-half pack cigarettes per day. - Ebola Screening: : Patient negative for fever greater than or equal to 101.5 degrees Fahrenheit, and additional compatible Ebola Virus Disease symptoms Patient denies exposure to infectious person Patient denies travel to an Ebola-affected area in the 21 days before illness onset No symptoms or risks identified at this time. - Family history:: not pertinent. Screenin:38 Abuse screen: Denies threats or abuse. Nutritional screening: No deficits noted. em Tuberculosis screening: No symptoms or risk factors identified. Fall Risk None identified. Assessment: 14:43 General: Appears in no apparent distress. uncomfortable, Behavior is calm, cooperative. em Pain: Complains of pain in chest Pain radiates to left arm Pain began 2 hours ago. Neuro: Level of Consciousness is awake, alert, obeys commands, Oriented to person, place, time, situation, Moves all extremities. Cardiovascular: Denies chest pain, nausea, shortness of breath, Heart tones S1 S2 present Capillary refill < 3 seconds Patient's skin is warm and dry. Rhythm is sinus rhythm Chest pain is located in anterior. Respiratory: Airway is patent Respiratory effort is even, unlabored, Respiratory pattern is regular, symmetrical. GI: Abdomen is flat. : No signs and/or symptoms were reported regarding the genitourinary system. EENT: No signs and/or symptoms were reported regarding the EENT system. Derm: Skin is intact, Skin is pink, warm \T\ dry. Musculoskeletal: Range of motion: intact in all extremities. 15:00 Reassessment: Patient appears in no apparent distress at this time. I agree with above iw assessment by Michael Burt LVN. 15:15 Reassessment: Patient appears in no apparent distress at this time. Patient and/or em family updated on plan of care and expected duration. Pain level reassessed. Patient is alert, oriented x 3, equal unlabored respirations, skin warm/dry/pink. Dr. Reynolds at bedside. 16:12 Reassessment: Patient appears in no apparent distress at this time. Patient and/or em family updated on plan of care and expected duration. Pain level reassessed. Patient is alert, oriented x 3, equal unlabored respirations, skin warm/dry/pink. rates pain 5/10 Patient states feeling better. Vital Signs: 14:21 BP 172 / 107; Pulse 102; Resp 16 S; Temp 98.2; Pulse Ox 98% on R/A; Weight 97.98 kg; iw Height 5 ft. 6 in. (167.64 cm); Pain 8/10; 14:37 BP 152 / 97; Pulse 95; Resp 18; Pulse Ox 96% on R/A; Pain 8/10; em 15:37 BP 158 / 97; Pulse 80; Resp 15; Pulse Ox 96% on R/A; dh3 14:21 Body Mass Index 34.86 (97.98 kg, 167.64 cm) iw ED Course: 13:45 Patient arrived in ED. mr 13:45 None, None is Private Physician. mr 14:10 Lenard Rosario MD is Attending Physician. rambo 14:13 Michael Burt LVN is Primary Nurse. em 14:21 Triage completed. iw 14:21 Arm band placed on. iw 14:30 No provider procedures requiring assistance completed. Inserted saline lock: 20 gauge em in right antecubital area, using aseptic technique. Blood collected. 14:30 Patient maintains SpO2 saturation greater than 95% on room air. em 14:37 Patient has correct armband on for positive identification. Fall risk band placed. em Placed in gown. Call light in reach. platform loader on. Pulse ox on. NIBP on. 14:39 EKG done, by survey technologist. reviewed by Lenard Rosario MD. sm3 14:43 X-ray completed. Portable x-ray completed in exam room. Patient tolerated procedure ml well. 14:44 XRAY Chest (1 view) In Process Unspecified. EDMS 15:08 Imelda Reynolds MD is Hospitalizing Provider. rambo 15:41 Nazario Anderson MD is Referral Physician. hj 15:53 Imelda Reynolds MD benefit specialist. rp3 15:55 Nazario Anderson MD is Referral Physician. rp3 16:14 IV discontinued, intact, bleeding controlled, No redness/swelling at site. Pressure em dressing applied. Administered Medications: 14:36 Drug: NS 0.9% 1000 ml Route: IV; Rate: 125 ml/hr; Site: right antecubital; em 16:10 Follow up: IV Status: Order to discontinue infusion; IV Intake: 200ml em 14:36 Drug: Aspirin Chewable Tablet 324 mg Route: PO; em 15:15 Follow up: Response: No adverse reaction em 15:14 Drug: Lovenox 1 mg/kg Route: Sub-Q; Site: right lower abdomen; em 16:11 Follow up: Response: No adverse reaction em 15:17 Drug: morphine 4 mg Route: IVP; Site: right antecubital; iw 16:12 Follow up: Response: No adverse reaction; Pain is decreased em 15:17 Drug: Zofran 4 mg Route: IVP; Site: right antecubital; iw 16:12 Follow up: Response: No adverse reaction em 15:23 Not Given (Physician Discretion): Lopressor 5 mg IVP once; Hold for SBP <100 or HR <60. em 15:23 Not Given (Physician Discretion): Lopressor (metoprolol TARTRATE) 50 mg PO once em Intake: 16:10 IV: 200ml; Total: 200ml. em Outcome: 15:09 Decision to Hospitalize by Provider. rambo 15:42 Discharge ordered by . anel 15:56 Discharge ordered by MD. rp3 16:14 Discharged to home ambulatory. em 16:14 Condition: good 16:14 Discharge instructions given to patient, Instructed on discharge instructions, follow up and referral plans. medication usage, Demonstrated understanding of instructions, follow-up care, medications, Prescriptions given X 6 16:16 Patient left the ED. em Signatures: Dispatcher [employer] EDMS Lenard Rosario MD MD cha Rivera, Maria mr Javed, Michael, CMO CMO em Adeline Langston, RN Nhung Flower Henry, RN RN hj Herrera, Maria Del Carmen 3 Imelda Reynolds MD MD 3 Katya Lima 3 Corrections: (The following items were deleted from the chart) 16:14 16:12 Reassessment: Patient appears in no apparent distress at this time. Patient em and/or family updated on plan of care and expected duration. Pain level reassessed. Patient is alert, oriented x 3, equal unlabored respirations, skin warm/dry/pink. em
--- NOTE | 2018-03-17 15:09 | EDPHYS ---
Physician Documentation [facility] Name: Juan Miguel Langston Age: 52 yrs Sex: Male : 1965 Arrival Date: 03/17/2018 Time: 13:45 Bed 18 Private MD: None, None ED Physician Lenard Rosario HPI: 03/17 15:04 This 52 yrs old Male presents to ER via Ambulatory with complaints of Chest rambo Pain. 15:04 The patient or guardian reports chest pain that is located primarily in the substernal armbo area, anterior chest wall. Onset: just prior to arrival. The pain does not radiate. Associated signs and symptoms: Pertinent positives: lightheadedness, nausea, shortness of breath. The chest pain is described as a heaviness, causing indigestion, a pressure. Modifying factors: The symptoms are alleviated by remaining still, rest, the symptoms are aggravated by exertion. Severity of pain: At its worst the pain was moderate in the emergency department the pain is unchanged. Historical: - Allergies: 14:22 NKA; iw - Home Meds: 14:24 amlodipine 5 mg tab 1 tab once daily [Active]; nitroglycerin 0.4 mg SL subl 1 tab every iw 5 minutes [Active]; - PMHx: 14:22 Angina; High Cholesterol; Hypertension; iw - PSHx: 14:22 None; iw - Immunization history:: Adult Immunizations up to date. - Social history:: Smoking status: Patient uses tobacco products, smokes one-half pack cigarettes per day. - Ebola Screening: : Patient negative for fever greater than or equal to 101.5 degrees Fahrenheit, and additional compatible Ebola Virus Disease symptoms Patient denies exposure to infectious person Patient denies travel to an Ebola-affected area in the 21 days before illness onset No symptoms or risks identified at this time. - Family history:: not pertinent. ROS: 15:04 Constitutional: Negative for fever, chills, and weight loss, Eyes: Negative for injury, rambo pain, redness, and discharge, ENT: Negative for injury, pain, and discharge, Neck: Negative for injury, pain, and swelling, Respiratory: Negative for shortness of breath, cough, wheezing, and pleuritic chest pain, Abdomen/GI: Negative for abdominal pain, nausea, vomiting, diarrhea, and constipation, Back: Negative for injury and pain, : Negative for injury, bleeding, discharge, and swelling, MS/Extremity: Negative for injury and deformity, Skin: Negative for injury, rash, and discoloration, Neuro: Negative for headache, weakness, numbness, tingling, and seizure, Psych: Negative for depression, anxiety, suicide ideation, homicidal ideation, and hallucinations, Allergy/Immunology: Negative for hives, rash, and allergies, Endocrine: Negative for neck swelling, polydipsia, polyuria, polyphagia, and marked weight changes, Hematologic/Lymphatic: Negative for swollen nodes, abnormal bleeding, and unusual bruising. 15:04 Cardiovascular: Positive for chest pain. Exam: 15:04 Constitutional: This is a well developed, well nourished patient who is awake, alert, rambo and in no acute distress. Head/Face: Normocephalic, atraumatic. Eyes: Pupils equal round and reactive to light, extra-ocular motions intact. Lids and lashes normal. Conjunctiva and sclera are non-icteric and not injected. Cornea within normal limits. Periorbital areas with no swelling, redness, or edema. ENT: Nares patent. No nasal discharge, no septal abnormalities noted. Tympanic membranes are normal and external auditory canals are clear. Oropharynx with no redness, swelling, or masses, exudates, or evidence of obstruction, uvula midline. Mucous membranes moist. Neck: Trachea midline, no thyromegaly or masses palpated, and no cervical lymphadenopathy. Supple, full range of motion without nuchal rigidity, or vertebral point tenderness. No Meningismus. Chest/axilla: Normal chest wall appearance and motion. Nontender with no deformity. No lesions are appreciated. Cardiovascular: Regular rate and rhythm with a normal S1 and S2. No gallops, murmurs, or rubs. Normal PMI, no JVD. No pulse deficits. Respiratory: Lungs have equal breath sounds bilaterally, clear to auscultation and percussion. No rales, rhonchi or wheezes noted. No increased work of breathing, no retractions or nasal flaring. Abdomen/GI: Soft, non-tender, with normal bowel sounds. No distension or tympany. No guarding or rebound. No evidence of tenderness throughout. Back: No spinal tenderness. No costovertebral tenderness. Full range of motion. Male : Normal genitalia with no discharge or lesions. Skin: Warm, dry with normal turgor. Normal color with no rashes, no lesions, and no evidence of cellulitis. MS/ Extremity: Pulses equal, no cyanosis. Neurovascular intact. Full, normal range of motion. Neuro: Awake and alert, GCS 15, oriented to person, place, time, and situation. Cranial nerves II-XII grossly intact. Motor strength 5/5 in all extremities. Sensory grossly intact. Cerebellar exam normal. Normal gait. Psych: Awake, alert, with orientation to person, place and time. Behavior, mood, and affect are within normal limits. Vital Signs: 14:21 BP 172 / 107; Pulse 102; Resp 16 S; Temp 98.2; Pulse Ox 98% on R/A; Weight 97.98 kg; iw Height 5 ft. 6 in. (167.64 cm); Pain 8/10; 14:37 BP 152 / 97; Pulse 95; Resp 18; Pulse Ox 96% on R/A; Pain 8/10; em 15:37 BP 158 / 97; Pulse 80; Resp 15; Pulse Ox 96% on R/A; dh3 14:21 Body Mass Index 34.86 (97.98 kg, 167.64 cm) iw MDM: 14:12 Patient medically screened. [facility] 15:07 Data reviewed: vital signs, nurses notes, lab test result(s), EKG, radiologic studies, rambo plain films. 15:57 Physician consultation: discharges patient from the emergency department, The patient rp3 was evaluated for chest pain. His chest pain is atypical per nature. He troponin I negative. EKG shows no new changes. I have discussed the case with Dr Anderson, who feels comfortable following the patient in his office next week. The patient will be discharge home in stable condition.. 03/17 14:11 Order name: Basic Metabolic Panel; Complete Time: 16:10 [facility] 03/17 14:11 Order name: CBC with Diff; Complete Time: 14:59 [facility] 03/17 14:11 Order name: Ckmb; Complete Time: 16:10 [facility] 03/17 14:11 Order name: CPK; Complete Time: 16:10 [facility] 03/17 14:11 Order name: LFT's; Complete Time: 16:10 [facility] 03/17 14:11 Order name: Magnesium; Complete Time: 16:10 [facility] 03/17 14:11 Order name: NT PRO-BNP; Complete Time: 16:10 03/17 14:11 Order name: PT-INR; Complete Time: 16:10 03/17 14:11 Order name: Ptt, Activated; Complete Time: 16:10 03/17 14:11 Order name: Troponin (emerg Dept Use Only); Complete Time: 16:10 03/17 14:11 Order name: XRAY Chest (1 view); Complete Time: 16:10 03/17 14:11 Order name: Lipase; Complete Time: 16:10 03/17 14:11 Order name: EKG; Complete Time: 14:12 03/17 14:11 Order name: Cardiac monitoring; Complete Time: 14:37 03/17 14:11 Order name: EKG - Nurse/Tech; Complete Time: 14:37 03/17 14:11 Order name: IV Saline Lock; Complete Time: 14:37 03/17 14:11 Order name: Labs collected and sent; Complete Time: 14:37 03/17 14:11 Order name: O2 Per Protocol; Complete Time: 14:37 03/17 14:11 Order name: O2 Sat Monitoring; Complete Time: 14:36 03/17 15:15 Order name: CONS Physician Consult EDMS Administered Medications: 14:36 Drug: NS 0.9% 1000 ml Route: IV; Rate: 125 ml/hr; Site: right antecubital; em 16:10 Follow up: IV Status: Order to discontinue infusion; IV Intake: 200ml em 14:36 Drug: Aspirin Chewable Tablet 324 mg Route: PO; em 15:15 Follow up: Response: No adverse reaction em 15:14 Drug: Lovenox 1 mg/kg Route: Sub-Q; Site: right lower abdomen; em 16:11 Follow up: Response: No adverse reaction em 15:17 Drug: morphine 4 mg Route: IVP; Site: right antecubital; iw 16:12 Follow up: Response: No adverse reaction; Pain is decreased em 15:17 Drug: Zofran 4 mg Route: IVP; Site: right antecubital; iw 16:12 Follow up: Response: No adverse reaction em 15:23 Not Given (Physician Discretion): Lopressor 5 mg IVP once; Hold for SBP <100 or HR <60. em 15:23 Not Given (Physician Discretion): Lopressor (metoprolol TARTRATE) 50 mg PO once em Disposition: 03/17/18 15:56 Discharged to Home. Impression: Other chest pain. - Condition is Stable. - Discharge Instructions: Nonspecific Chest Pain, Chest Wall Pain. - Medication Reconciliation Form, Thank You Letter, Antibiotic Education, Prescription Opioid Use form. - Follow up: Nazario Anderson MD; When: 1 - 2 days; Reason: Recheck today's complaints. - Problem is chronic. - Symptoms have improved. Signatures: Dispatcher [employer] EDLenard Rivas MD MD cha Munoz, Edgar, MICROPHONE OPERATOR MICROPHONE OPERATOR em Adeline Langston RN RN iw Wild Wallace RN RN hj Patel, Ruchita, MD MD rp3 Corrections: (The following items were deleted from the chart) 15:40 15:09 Hospitalization Ordered by Imelda Reynolds MD for Observation. Preliminary diagnosis is Chest pain, unspecified; Essential (primary) hypertension. Bed requested for Telemetry/MedSurg (observation). Status is Observation. Condition is Stable. Problem is new. Symptoms have improved. UTI on Admission? No. rambo 15:55 15:42 03/17/2018 15:42 Discharged to Home. Impression: Other chest pain. Condition is rp3 Stable. Forms are Medication Reconciliation Form, Thank You Letter, Antibiotic Education, Prescription Opioid Use. Follow up: Nazario Anderson; When: 1 - 2 days; Reason: Recheck today's complaints. Problem is chronic. Symptoms have improved. 16:16 15:56 03/17/2018 15:56 Discharged to Home. Impression: Other chest pain. Condition is em Stable. Forms are Medication Reconciliation Form, Thank You Letter, Antibiotic Education, Prescription Opioid Use. Follow up: Nazario Anderson; When: 1 - 2 days; Reason: Recheck today's complaints. Problem is chronic. Symptoms have improved. rp3
--- NOTE | 2018-03-17 15:09 | RAD REPORT ---
EXAM DESCRIPTION: RAD - Chest Single View - 03/17/2018 2:44 pm CLINICAL HISTORY: Chest pain COMPARISON: March 02 TECHNIQUE: AP portable chest image was obtained 1435 hours . FINDINGS: Lungs are clear. Heart and vasculature are normal. No measurable pleural effusion and no p neumothorax. No gross bony abnormality seen. No acute aortic findings suspected. IMPRESSION: No acute cardiopulmonary process. No significant change from comparison.
[2018-03-17] MEDS ORDERED: ONDANSETRON 4 MG/2 ML VIAL ONE (15:10)
[2018-03-17] MEDS ORDERED: METOPROLOL TAR 50 MG TAB ONE (15:10)
--- NOTE | 2018-03-17 15:33 | P.CNS ---
Date of Consult: 03/17/18 Consulted for Admission For chest Pain Discharged from ER after consulting Dr Anderson - Date of Service Date of Service: 03/17/18 - Chief Complaint Reason for admission: Chest pain - History of Present Illness Mr Langston is a 52 years old male with history of CAD, HTN, tobacco abuse, who has multiple visit to ER and admission to the hospital due to chest pain. He has been evaluated by cardiology team several times, the patient is known to be a non-compliant with his medical treatment. He has seen Dr Anderson last week. He came today to the ER complaining of chest pain. The pain is come and go, lasting for 1-2 hours every time. The intensity is 8/10, burning like, sternal location. The pain is worse with breathing movements and is reproducible with palpation. He denied any SOB, vomiting, diaphoresis or dizziness. - Allergies Allergies/Reactions: Allergy/AdvReac Type Severity Reaction Status Date / Time Beta-Blockers AdvReac Anaphylaxis Verified 10/09/17 11:30 (Beta-Adrenergic Bloc metoprolol AdvReac Anaphylaxis Verified 10/10/17 06:56 No Known Allergies Allergy Unknown Uncoded 10/10/17 20:05 - Home Medications Home Medications List: Reviewed Medication Instructions Recorded Lovastatin 40 mg PO DAILY #30 tablet 11/25/17 Nitroglycerin [Nitrostat*] 0.4 mg SL UD PRN #30 tab 11/25/17 Isosorbide Mononitrate [Isosorbide 30 mg PO DAILY 02/08/18 Mononitrate ER] Albuterol Sulfate [Proair Hfa] 8.5 gm IH TID PRN #1 hfa.aer.ad 02/09/18 Aspirin [Aspirin EC 81 MG] 81 mg PO DAILY #30 tablet. 02/09/18 Lisinopril [Prinivil*] 20 mg PO DAILY #30 tab 02/09/18 Mometasone/Formoterol [Dulera 100 2 puff IH BID #1 inhaler 02/09/18 Mcg/5 Mcg Inhaler] Pantoprazole [Protonix Tab*] 40 mg PO DAILYAC #30 tab 02/09/18 - Review of Systems General: As per HPI All other systems: reviewed and negative - Past Medical History -: Angina -: HTN -: Hyperlipidemia -: Tobacco abuse -: CAD -: COPD -: GERD -: Noncompliance with medication and follow up Diabetic: No - Past Surgical History -: CARDIAC CATH 12/2013 NO STENTS 30% BLOCKAGE PER PT -: Cardiac stress tests October 2017 showed no stress-induced ischemia - Other History Psychosocial/ Personal History: Patient is single. Patient is homeless. - Family History Family History: Reviewed- Non-Contributory - Family History MOM -: Heart disease, Other (see notes) Notes: MASSIVE [place] 61YR and arthritis DAD -: Heart disease, Other (see notes) Notes: POOR CIRCULATION TO LEGS PER PT - Social History Smoking Status: Heavy Tobacco smoker (>10 cigarettes/day) Counseled to stop smoking: Yes Alcohol use: No CD- Drugs: No Caffeine use: Yes Place of Residence: Homeless - Physical Examination General: Awake, alert, oriented HEENT: Head atraumatic, normocephalic, Conjunctivae non-erythematous, Sclerae white, Mouth no thrush or edema, Ears/Nose no mass, lesion or discharge noted Neck: Supple, No JVD, lymph nodes, bruit or thyromegaly noted Chest: Unremarkable Lungs: Bilateral good equal air entry, Clear to auscultation, No rhonchi, No rales Heart: Normal heart sounds, No murmur or gallop Abdomen: Soft, Bowel sounds normal, No guarding, rigidity, tenderness or mass noted, No hepatosplenomegaly, distention or bruit noted Skin: No rash, ulcer or cellulitis - Studies Laboratory Data (last 24 hrs) 03/17/18 14:30: PT 12.5, INR 1.06, APTT 30.1 03/17/18 14:30: WBC 7.5, Hgb 16.1, Hct 46.7, Plt Count 261 - Assessment and Plan Diagnosis (Problem(s)) (1) Chest pain Onset Date: 02/09/18 Current Visit: No Status: Acute Qualifiers: Chest pain type: chest pain on breathing Qualified Code(s): R07.1 - Chest pain on breathing; R07.81 - Pleurodynia (2) Non-compliance Current Visit: No Status: Acute (3) CAD (coronary artery disease) Onset Date: 02/09/18 Current Visit: No Status: Chronic Qualifiers: Coronary Disease-Associated Artery/Lesion type: [place] artery [place] vs. transplanted heart: [place] heart Associated angina: angina presence unspecified Qualified Code(s): I25.10 - Atherosclerotic heart disease of [place] coronary artery without angina pectoris (4) HTN (hypertension) Onset Date: 02/09/18 Current Visit: No Status: Chronic Qualifiers: Hypertension type: essential hypertension Qualified Code(s): I10 - Essential (primary) hypertension (5) Tobacco abuse Onset Date: 02/09/18 Current Visit: No Status: Chronic Treatment Summary: The patient was evaluated for chest pain. His chest pain is atypical per nature. His troponin I x 1 was negative. EKG shows no new changes. I have discussed the case with Dr Anderson, who feels comfortable following the patient in his office next week Tuesday at 8:30AM. The patient will be discharge home in stable condition from the ER. - Discharge Plan Discharge Plan: Home Plan to discharge in: 24 Hours - Code Status/Comfort Care Code Status: Full Code - Physician Review Critical Care: No
[2018-03-17 15:45] LABS: ALT/SGPT 113 U/L (12-78); AST/SGOT 31 U/L (15-37); Albumin 3.9 g/dL (3.4-5.0); Alkaline Phosphatase 46 U/L (45-117); BUN Blood Urea Nitrogen 18 mg/dL (7-18); Bicarbonate 25 mmol/L (21-32); Bilirubin Direct 0.1 mg/dL (0-0.2); Bilirubin Total 0.3 mg/dL (0.2-1.0); CKMB Creatine Kinase MB 2.7 ng/mL (0.3-3.6); Creatine Phosphokinase 162 U/L (39-308); Glucose Level 93 mg/dL (74-106); Lipase 229 U/L (73-393); Magnesium 2.2 mg/dL (1.8-2.4); NT PRO-BNP 18 pg/mL (<125); Potassium 3.7 mmol/L (3.5-5.1); Protein, Total 7.2 g/dL (6.4-8.2); Sodium Level 138 mmol/L (136-145); Troponin (Emerg Dept Use Only) < 0.02 ng/mL (0.0-0.045)
[2018-03-17 16:19] VITALS: TEMP 98.2
[2018-03-17 16:21] VITALS: O2SAT 96
[2018-03-17 16:22] VITALS: BP 158/97
--- NOTE | 2018-03-18 12:12 | EKG ---
Test Date: 2018-03-17 Test Time: 14:19:47 [employer] Inspector: ANGELO MEASUREMENT RESULTS: Intervals: Rate: 95 DC: 142 QRSD: 106 QT: 338 QTc: 424 Joice: P: 54 DC: 142 QRS: 57 T: -33 INTERPRETIVE STATEMENTS: Normal sinus rhythm ST & T wave abnormality, consider inferior ischemia Abnormal ECG Compared to ECG 03/02/2018 13:48:59 No significant changes Electronically Signed On 03-18-18 12:07:46 CDT by Nazario Anderson
== END 2018-03-17 16:16 | disposition home or self-care (01) ==
LOC: ER 13:44 → ERHOLD 15:12 → UNDOADMOB 15:12 → ER 16:16
DX: R07.89 Other chest pain (principal); I10 Essential (primary) hypertension; E78.00 Pure hypercholesterolemia, unspecified; Z72.0 Tobacco use
CPT/HCPCS: 36415; 71045; 80048; 80076; 82550; 82553; 83690; 83735; 83880; 84484; 85025; 85610; 85730; 93005; 96361; 96372; 96374; 96375; 99285; J1650; J2405; J7030

== ENCOUNTER 2018-04-15 08:37 | Observation (INO) | payer OTHER, SELFPAY ==
--- NOTE | 2018-04-15 09:08 | EDPHYS ---
Physician Documentation [facility] Name: Juan Miguel Langston Age: 52 yrs Sex: Male : 1965 Arrival Date: 04/15/2018 Time: 08:40 Bed 5 Private MD: ED Physician Lenard Rosario HPI: 04/15 09:04 This 52 yrs old Male presents to ER via EMS with complaints of Chest Pain > rambo 30 y/o. 09:04 The patient or guardian reports chest pain that is located primarily in the substernal rambo area, anterior chest wall, left. Onset: just prior to arrival, this morning. The pain radiates to Associated signs and symptoms: The patient has no apparent associated signs or symptoms. The chest pain is described as a heaviness, a pressure. Duration: The patient or guardian reports a single episode, that is still ongoing. Severity of pain: At its worst the pain was moderate in the emergency department the pain is unchanged. The patient has not experienced similar symptoms in the past. Historical: - Allergies: 08:56 NKA; sg - Home Meds: 08:56 amlodipine 5 mg tab 1 tab once daily [Active]; aspirin 81 mg Oral chew 1 tab once daily sg [Active]; fluticasone-salmeterol inhalation [Active]; lisinopril 20 mg Oral tab 1 tab once daily [Active]; nitroglycerin 0.4 mg SL subl 1 tab every 5 minutes [Active]; nitroglycerin 0.4 mg SL subl 1 tab every 5 minutes [Active]; pantoprazole 40 mg Oral TbEC 1 tab once daily [Active]; ProAir HFA inhalation [Active]; - PMHx: 08:56 Angina; High Cholesterol; Hypertension; Myocardial infarction; sg - PSHx: 08:56 None; sg - Immunization history:: Adult Immunizations up to date. - Social history:: Smoking status: Patient/guardian denies using tobacco. - Ebola Screening: : Patient negative for fever greater than or equal to 101.5 degrees Fahrenheit, and additional compatible Ebola Virus Disease symptoms Patient denies exposure to infectious person Patient denies travel to an Ebola-affected area in the 21 days before illness onset No symptoms or risks identified at this time. - Family history:: not pertinent. ROS: 09:04 Constitutional: Negative for fever, chills, and weight loss, Eyes: Negative for injury, rambo pain, redness, and discharge, ENT: Negative for injury, pain, and discharge, Neck: Negative for injury, pain, and swelling, Respiratory: Negative for shortness of breath, cough, wheezing, and pleuritic chest pain, Abdomen/GI: Negative for abdominal pain, nausea, vomiting, diarrhea, and constipation, Back: Negative for injury and pain, : Negative for injury, bleeding, discharge, and swelling, MS/Extremity: Negative for injury and deformity, Skin: Negative for injury, rash, and discoloration, Neuro: Negative for headache, weakness, numbness, tingling, and seizure, Psych: Negative for depression, anxiety, suicide ideation, homicidal ideation, and hallucinations, Allergy/Immunology: Negative for hives, rash, and allergies, Endocrine: Negative for neck swelling, polydipsia, polyuria, polyphagia, and marked weight changes, Hematologic/Lymphatic: Negative for swollen nodes, abnormal bleeding, and unusual bruising. 09:04 Cardiovascular: Positive for chest pain. Exam: 09:04 Constitutional: This is a well developed, well nourished patient who is awake, alert, rambo and in no acute distress. Head/Face: Normocephalic, atraumatic. Eyes: Pupils equal round and reactive to light, extra-ocular motions intact. Lids and lashes normal. Conjunctiva and sclera are non-icteric and not injected. Cornea within normal limits. Periorbital areas with no swelling, redness, or edema. ENT: Nares patent. No nasal discharge, no septal abnormalities noted. Tympanic membranes are normal and external auditory canals are clear. Oropharynx with no redness, swelling, or masses, exudates, or evidence of obstruction, uvula midline. Mucous membranes moist. Neck: Trachea midline, no thyromegaly or masses palpated, and no cervical lymphadenopathy. Supple, full range of motion without nuchal rigidity, or vertebral point tenderness. No Meningismus. Chest/axilla: Normal chest wall appearance and motion. Nontender with no deformity. No lesions are appreciated. Cardiovascular: Regular rate and rhythm with a normal S1 and S2. No gallops, murmurs, or rubs. Normal PMI, no JVD. No pulse deficits. Respiratory: Lungs have equal breath sounds bilaterally, clear to auscultation and percussion. No rales, rhonchi or wheezes noted. No increased work of breathing, no retractions or nasal flaring. Abdomen/GI: Soft, non-tender, with normal bowel sounds. No distension or tympany. No guarding or rebound. No evidence of tenderness throughout. Back: No spinal tenderness. No costovertebral tenderness. Full range of motion. Male : Normal genitalia with no discharge or lesions. Skin: Warm, dry with normal turgor. Normal color with no rashes, no lesions, and no evidence of cellulitis. MS/ Extremity: Pulses equal, no cyanosis. Neurovascular intact. Full, normal range of motion. Neuro: Awake and alert, GCS 15, oriented to person, place, time, and situation. Cranial nerves II-XII grossly intact. Motor strength 5/5 in all extremities. Sensory grossly intact. Cerebellar exam normal. Normal gait. Psych: Awake, alert, with orientation to person, place and time. Behavior, mood, and affect are within normal limits. Vital Signs: 08:55 BP 170 / 71; Pulse 84; Resp 18 S; Temp 98.1; Pulse Ox 100% on R/A; sg 09:01 Weight 99.79 kg (R); Height 5 ft. 10 in. (177.80 cm); sg 10:00 BP 129 / 67; Pulse 69 MON; Resp 15 S; Pulse Ox 94% on R/A; sg 11:40 BP 128 / 64; Pulse 69; Resp 14; Pulse Ox 98% ; Pain 0/10; sg 09:01 Body Mass Index 31.57 (99.79 kg, 177.80 cm) MDM: 08:43 Patient medically screened. [facility] 09:05 Data reviewed: vital signs, nurses notes, lab test result(s), EKG, radiologic studies, [facility] plain films. 04/15 08:44 Order name: Basic Metabolic Panel; Complete Time: 10:10 [facility] 04/15 08:44 Order name: CBC with Diff; Complete Time: 09:43 [facility] 04/15 08:44 Order name: LFT's; Complete Time: 10:10 [facility] 04/15 08:44 Order name: Magnesium; Complete Time: 10:10 [facility] 04/15 08:44 Order name: NT PRO-BNP; Complete Time: 10:10 [facility] 04/15 08:44 Order name: PT-INR; Complete Time: 09:43 [facility] 04/15 08:44 Order name: Troponin (emerg Dept Use Only); Complete Time: 10:10 [facility] 04/15 08:44 Order name: XRAY Chest (1 view); Complete Time: 09:43 [facility] 04/15 08:44 Order name: Lipase; Complete Time: 10:10 [facility] 04/15 08:48 Order name: Urine Culture [facility] 04/15 10:17 Order name: Troponin (emerg Dept Use Only) [facility] 04/15 10:31 Order name: Urine Dipstick--Ancillary (enter results) 04/15 11:55 Order name: Troponin (Emerg Dept Use Only) [facility] 04/15 08:44 Order name: EKG; Complete Time: 08:45 [facility] 04/15 08:44 Order name: Cardiac monitoring; Complete Time: 09:02 [facility] 04/15 08:44 Order name: EKG - Nurse/Tech; Complete Time: 09:02 [facility] 04/15 08:44 Order name: IV Saline Lock; Complete Time: 09:02 [facility] 04/15 08:44 Order name: Labs collected and sent; Complete Time: 09:02 [facility] 04/15 08:44 Order name: O2 Per Protocol; Complete Time: 09:02 [facility] 04/15 08:44 Order name: O2 Sat Monitoring; Complete Time: 09:02 [facility] 04/15 08:48 Order name: Urine Dipstick-Ancillary (obtain specimen); Complete Time: 09:53 [facility] 04/15 09:17 Order name: CONS Physician Consult [facility] 04/15 10:17 Order name: Repeat Cardiac Enzymes at: 11am; Complete Time: 11:28 [facility] Administered Medications: 09:40 Drug: Aspirin 81 mg {Note: pt reports having taken an 81 mg Aspirin this AM.} Route: PO;sg 09:40 Drug: morphine 4 mg Route: IVP; Site: right hand; sg 09:45 Follow up: Response: No adverse reaction; Pain is decreased sg 09:40 Drug: Zofran 4 mg Route: IVP; Site: right hand; sg 10:37 Follow up: Response: No adverse reaction; Nausea is decreased sg 09:40 Drug: Pepcid 20 mg Route: IVP; Site: right hand; sg 10:38 Follow up: Response: No adverse reaction sg 10:35 Drug: predniSONE 40 mg Route: PO; sg 10:37 Follow up: Response: No adverse reaction sg 10:36 Drug: SOLU-Medrol 125 mg Route: IVP; Site: right hand; sg 10:37 Follow up: Response: No adverse reaction sg 16:21 Follow up: Response: No adverse reaction sg 11:28 Drug: Lovenox 1 mg/kg Route: Sub-Q; Site: right lower abdomen; sg 12:00 Follow up: Response: No adverse reaction sg Disposition: 04/15/18 09:07 Hospitalization ordered by Imelda Reynolds for Observation. Preliminary diagnosis are Chest pain, unspecified, Essential (primary) hypertension, Tobacco abuse counseling, Tobacco use, Pleurisy. - Bed requested for Telemetry/MedSurg (observation). - Status is Observation. la1 - Condition is Stable. - Problem is new. - Symptoms have improved. UTI on Admission? No Signatures: Dispatcher [employer] EDMagdalena Diez RN RN dw Gay, Steven, RN RN sg Anderson, Corey, MD MD cha Attema, Lee, RN RN la1 Corrections: (The following items were deleted from the chart) 10:25 09:07 Hospitalization Ordered by Imelda Reynolds MD for Observation. Preliminary rambo diagnosis is Chest pain, unspecified; Essential (primary) hypertension; Tobacco abuse counseling; Tobacco use. Bed requested for Telemetry/MedSurg (observation). Status is Observation. Condition is Stable. Problem is new. Symptoms have improved. UTI on Admission? No. rambo 11:17 10:25 04/15/2018 09:07 Hospitalization Ordered by Imelda Reynolds MD for Observation. dw Preliminary diagnosis is Chest pain, unspecified; Essential (primary) hypertension; Tobacco abuse counseling; Tobacco use; Pleurisy. Bed requested for Telemetry/MedSurg (observation). Status is Observation. Condition is Stable. Problem is new. Symptoms have improved. UTI on Admission? No. rambo 11:59 11:17 04/15/2018 09:07 Hospitalization Ordered by Imelda Reynolds MD for Observation. la1 Preliminary diagnosis is Chest pain, unspecified; Essential (primary) hypertension; Tobacco abuse counseling; Tobacco use; Pleurisy. Bed requested for Telemetry/MedSurg (observation). Status is Observation. Condition is Stable. Problem is new. Symptoms have improved. UTI on Admission? No. dw
--- NOTE | 2018-04-15 09:08 | ER ---
Nurse's Notes [facility] Name: Juan Miguel Langston Age: 52 yrs Sex: Male : 1965 Arrival Date: 04/15/2018 Time: 08:40 Bed 5 Private MD: Diagnosis: Chest pain, unspecified;Essential (primary) hypertension;Tobacco abuse counseling;Tobacco use;Pleurisy Presentation: 04/15 08:52 Presenting complaint: EMS states: pt c/o midsternal and left anterior chest wall pain sg that started this morning, reports having a history of pain but this morning it is a little different and hurting worse than it normally does. pt reports having started Bystolic recently, along with is normal BP medications, BP has been well managed but today it was elevated 200's/100's, pt reports taking BP medications this morning and having taken Nitrox1 SL SPEECH CORRECTION CONSULTANT. Transition of care: patient was not received from another setting of care. Onset of symptoms was April 15, 2018. Risk Assessment: Do you want to hurt yourself or someone else? Patient reports no desire to harm self or others. Initial Sepsis Screen: Does the patient meet any 2 criteria? No. Patient's initial sepsis screen is negative. Does the patient have a suspected source of infection? No. Patient's initial sepsis screen is negative. Care prior to arrival: None. 08:52 Method Of Arrival: EMS: [facility] 08:52 Acuity: DESTINY 3 sg Historical: - Allergies: 08:56 NKA; sg - Home Meds: 08:56 amlodipine 5 mg tab 1 tab once daily [Active]; aspirin 81 mg Oral chew 1 tab once daily sg [Active]; fluticasone-salmeterol inhalation [Active]; lisinopril 20 mg Oral tab 1 tab once daily [Active]; nitroglycerin 0.4 mg SL subl 1 tab every 5 minutes [Active]; nitroglycerin 0.4 mg SL subl 1 tab every 5 minutes [Active]; pantoprazole 40 mg Oral TbEC 1 tab once daily [Active]; ProAir HFA inhalation [Active]; - PMHx: 08:56 Angina; High Cholesterol; Hypertension; Myocardial infarction; sg - PSHx: 08:56 None; sg - Immunization history:: Adult Immunizations up to date. - Social history:: Smoking status: Patient/guardian denies using tobacco. - Ebola Screening: : Patient negative for fever greater than or equal to 101.5 degrees Fahrenheit, and additional compatible Ebola Virus Disease symptoms Patient denies exposure to infectious person Patient denies travel to an Ebola-affected area in the 21 days before illness onset No symptoms or risks identified at this time. - Family history:: not pertinent. Screenin:58 Abuse screen: Denies threats or abuse. Denies injuries from another. Nutritional sg screening: No deficits noted. Tuberculosis screening: No symptoms or risk factors identified. Never had TB. Fall Risk None identified. Assessment: 08:58 General: Appears in no apparent distress. uncomfortable, unkempt, well developed, well sg nourished, Behavior is calm, cooperative, appropriate for age. Pain: Complains of pain in chest Quality of pain is described as sharp, stabbing. Neuro: Level of Consciousness is awake, alert, obeys commands, Oriented to person, place, time, situation, Dry Mixer are equal bilaterally Gait is steady, Speech is normal, Facial symmetry appears normal. Cardiovascular: Capillary refill is brisk in bilateral fingers Patient's skin is warm and dry. Chest pain is described as mild. Respiratory: Airway is patent Respiratory effort is even, unlabored, Respiratory pattern is regular, symmetrical. GI: Abdomen is round non-distended, obese. : No signs and/or symptoms were reported regarding the genitourinary system. EENT: No signs and/or symptoms were reported regarding the EENT system. Derm: Skin is pink, warm \T\ dry. Musculoskeletal: No signs and/or symptoms reported regarding the musculoskeletal system. 09:20 Reassessment: Patient appears in no apparent distress at this time. Patient and/or sg family updated on plan of care and expected duration. Pain level reassessed. Patient is alert, oriented x 3, equal unlabored respirations, skin warm/dry/pink. 10:25 Reassessment: at bedside evaluating pt at this time, pt educated on smoking sg cessation and possible pericarditis by , new orders received, pt medicated will continue to monitor. 10:42 Reassessment: Patient appears in no apparent distress at this time. at bedside sg at this time evaluating pt at this time. 11:25 Reassessment: Patient appears in no apparent distress at this time. Patient and/or sg family updated on plan of care and expected duration. Pain level reassessed. Patient is alert, oriented x 3, equal unlabored respirations, skin warm/dry/pink. Patient states feeling better. Vital Signs: 08:55 BP 170 / 71; Pulse 84; Resp 18 S; Temp 98.1; Pulse Ox 100% on R/A; sg 09:01 Weight 99.79 kg (R); Height 5 ft. 10 in. (177.80 cm); sg 10:00 BP 129 / 67; Pulse 69 MON; Resp 15 S; Pulse Ox 94% on R/A; sg 11:40 BP 128 / 64; Pulse 69; Resp 14; Pulse Ox 98% ; Pain 0/10; sg 09:01 Body Mass Index 31.57 (99.79 kg, 177.80 cm) ED Course: 08:40 Patient arrived in ED. rambo 08:43 Lenard Rosario MD is Attending Physician. rambo 08:48 EKG done, by ED staff, reviewed by Lenard Rosario MD. sg 08:52 Mehul Deluca, RN is Primary Nurse. sg 08:52 Arm band placed on. sg 08:54 Triage completed. sg 08:58 Patient has correct armband on for positive identification. Placed in gown. Bed in low sg position. Side rails up X2. potline monitor on. Pulse ox on. NIBP on. Warm blanket given. Head of bed elevated. 09:07 X-ray completed. Portable x-ray completed in exam room. Patient tolerated procedure jb2 well. 09:07 Imelda Reynolds MD is Hospitalizing Provider. [facility] 09:08 XRAY Chest (1 view) In Process Unspecified. EDMS 09:30 Initial lab(s) drawn, by me, sent to lab. Inserted saline lock: 20 gauge in right hand, sg using aseptic technique. Blood collected. 11:20 Repeat lab(s) drawn. by me, sent to lab. sg 11:26 No provider procedures requiring assistance completed. Patient admitted, IV remains in sg place. intact, No redness/swelling at site. Administered Medications: 09:40 Drug: Aspirin 81 mg {Note: pt reports having taken an 81 mg Aspirin this AM.} Route: PO;sg 09:40 Drug: morphine 4 mg Route: IVP; Site: right hand; sg 09:45 Follow up: Response: No adverse reaction; Pain is decreased sg 09:40 Drug: Zofran 4 mg Route: IVP; Site: right hand; sg 10:37 Follow up: Response: No adverse reaction; Nausea is decreased sg 09:40 Drug: Pepcid 20 mg Route: IVP; Site: right hand; sg 10:38 Follow up: Response: No adverse reaction sg 10:35 Drug: predniSONE 40 mg Route: PO; sg 10:37 Follow up: Response: No adverse reaction sg 10:36 Drug: SOLU-Medrol 125 mg Route: IVP; Site: right hand; sg 10:37 Follow up: Response: No adverse reaction sg 16:21 Follow up: Response: No adverse reaction sg 11:28 Drug: Lovenox 1 mg/kg Route: Sub-Q; Site: right lower abdomen; sg 12:00 Follow up: Response: No adverse reaction sg Outcome: 09:07 Decision to Hospitalize by Provider. [facility] 11:27 Admitted to Tele accompanied by tech, via stretcher, room 211, with chart. sg 11:27 Condition: good 11:27 Instructed on the need for admit, safety practices. 11:59 Patient left the ED. la1 Signatures: Dispatcher [employer] Mehul Delong RN RN sg Anderson, Corey, MD MD cha Buechter, Jesse jb2 Attema, Lee, RN RN la1 Corrections: (The following items were deleted from the chart) 08:58 08:57 BP 128 / 99; Pulse 88bpm; Resp 17bpm; Spontaneous; Pulse Ox 100% RA; Temp 98.1F; sg sg
[2018-04-15] MEDS ORDERED: ASPIRIN 81 MG CHEWABLE TABLET ONE (09:17)
[2018-04-15] MEDS ORDERED: MORPHINE 4 MG/ML SYR ONE (09:18)
[2018-04-15] MEDS ORDERED: ONDANSETRON 4 MG/2 ML VIAL ONE (09:18)
[2018-04-15] MEDS ORDERED: ENOXAPARIN 100 MG/ML SYR SQ ONE (09:19)
[2018-04-15] MEDS ORDERED: FAMOTIDINE 20 MG/2 ML VIAL IV ONE (09:19)
[2018-04-15 09:32] LABS: Absolute Lymphocytes (CBC) 1.6 K/uL (0.7-4.9); Absolute Monocytes 0.5 K/uL (0.1-1.3); Absolute Neutrophil 4.5 K/uL (1.8-8.0); Basophils % 1.4 % (0-1.3); Eosinophils % 2.2 % (0-4.4); Hematocrit 46.9 % (39.6-49.0); Lymphocytes % 23.4 % (15.3-44.8); MCH 31.4 pg (27.0-35.0); MCV 92.9 fL (80-100); MPV 9.2 fL (7.6-11.3); Monocytes % 7.2 % (3.3-12.3); RBC Red Blood Cell Count 5.05 M/uL (4.33-5.43)
[2018-04-15 09:33] LABS: Protime INR 0.99
--- NOTE | 2018-04-15 09:37 | RAD REPORT ---
EXAM DESCRIPTION: RAD - Chest Single View - 04/15/2018 9:09 am CLINICAL HISTORY: CHEST PAIN COMPARISON: Portable chest March 17 TECHNIQUE: AP portable chest image was obtained 0855 hours . FINDINGS: No focal mass, consolidation or failure. Lung markings are similar to comparison. Heart an d vasculature are normal. No measurable pleural effusion and no pneumothorax. No acute bony abnormali ty seen. No acute aortic findings suspected. IMPRESSION: No acute cardiopulmonary process. No significant change from comparison.
[2018-04-15 09:50] LABS: ALT/SGPT 65 U/L (12-78); AST/SGOT 22 U/L (15-37); Albumin 3.6 g/dL (3.4-5.0); Alkaline Phosphatase 51 U/L (45-117); BUN Blood Urea Nitrogen 10 mg/dL (7-18); Bicarbonate 25 mmol/L (21-32); Bilirubin Direct < 0.1 mg/dL (0-0.2); Bilirubin Total 0.2 mg/dL (0.2-1.0); Glucose Level 107 mg/dL (74-106); Lipase 201 U/L (73-393); Magnesium 2.3 mg/dL (1.8-2.4); NT PRO-BNP 109 pg/mL (<125); Potassium 3.6 mmol/L (3.5-5.1); Protein, Total 6.7 g/dL (6.4-8.2); Sodium Level 141 mmol/L (136-145); Troponin (Emerg Dept Use Only) < 0.02 ng/mL (0.0-0.045)
[2018-04-15] MEDS ORDERED: predniSONE 20 MG TAB ONE (10:28)
[2018-04-15] MEDS ORDERED: METHYLPREDNISOLONE 125 MG INJ ONE (10:28)
[2018-04-15] MEDS ORDERED: ACETAMINOPHEN 500 MG TAB PO PRN (11:41)
[2018-04-15] MEDS ORDERED: ONDANSETRON 4 MG/2 ML VIAL IV PRN (11:41)
[2018-04-15 12:13] VITALS: O2SAT 98
[2018-04-15 12:50] VITALS: BMI 35.5
[2018-04-15] MEDS ORDERED: INFLUENZA VACCINE (for 3y+) 0.5 ML DOSE IMVAC ONE (14:00)
[2018-04-15] MEDS: NA CHLORIDE 0.9% 1,000 ML IV SCH ×2 (14:00→21:41)
--- NOTE | 2018-04-15 14:31 | CON ---
History Of Present Illness: Mr. Langston is a gentleman, who comes to the hospital with chest pain. He has had probably 5 previous admissions for chest pain. During 1 of those, he had a cardiac cath that showed minimal coronary plaque, no stenosis. Last October, he had a hospital admission that inclu ded a pharmacologic nuclear stress test that was normal. In February, he came to the hospital again wi th chest pain. OH was ruled out. He has underlying hypertension, borderline glucose intolerance. H e uses tobacco. Denies illegal drug use, alcohol use. He reports drug intolerance to beta-blockers. No other allergies. Physical Examination: General: He appears to be older than his stated age of 52. Alert, oriented, pleasant, not in distre ss. Lungs: Clear. Heart: Revealed a faint 1 component pericardial friction rub. Abdomen: Soft. Extremities: Normal. Diagnostic Data: His EKG shows diffuse nonspecific repolarization abnormality, IVCD exactly like old er EKGs. Cardiac enzymes are normal. Blood sugars 107. Complete blood count is within normal limit s. Outpatient Medications: Amlodipine, aspirin, lisinopril, fluticasone with salmeterol, nitroglycerin, Protonix. He states he takes a lipid medicine, but that is not on the list of medicines he brings t [facility]. Impression: The patient is having pericarditis. The pain he has is very much pleuritic, and medium position between upright and laying back is the preferred position. It gets worse if he leans forwar d or if lays back flat. He has a slight friction rub, and it has been present for more than 24 hours with no change in enzymes, so I would recommend we give him a large dose of Solu-Medrol and when he is admitted, continue him on prednisone, perhaps 60 mg a day. We could use colchicine or a nonsteroi nicola anti-inflammatory drug to help with the pain as well. I would try to avoid any narcotics in Mr. Langston. Thank you very much for your kind referral of Mr. Juan Miguel Langston. I will follow him with you. [email or web address] Voice ID: [id number] Report ID: [id number]
[2018-04-15] MEDS ORDERED: NITROGLYCERIN 0.4 MG/TAB SL PRN (15:26)
[2018-04-15] MEDS ORDERED: ALBUTEROL INHALER 60 PUFF/8 GM IH PRN (15:26)
--- NOTE | 2018-04-15 15:36 | P.HP ---
Certification for Inpatient Patient admitted to: Observation With expected LOS: <2 Midnights Patient will require the following post-hospital care: None Practitioner: I am a practitioner with admitting privileges, knowledge of patient current condition, hospital course, and medical plan of care. Services: Services provided to patient in accordance with Admission requirements found in Title 42 Section 412.3 of the Code of Federal Regulations Patient History Date of Service: 04/15/18 Primary Care Provider: None Reason for admission: Chest pain History of Present Illness: This is a 52-year-old male with significant past medical history of hypertension , hyperlipidemia, CAD, tobacco abuse, who presented to the ED complaining of having some chest pain. Patient has been having several visits to the ER here in the past year for chest pain. Has had ACS rule out in October with her stress test. Also had a cath done last year which was also negative for any coronary artery disease. Patient states that his chest pain is pleuritic in nature and is very positional. The gets worse when he lays down. Patient has associated shortness of breath with that as well. Patient continues to smoke cigarettes 1- 1/2 packs a day. Denies having any fever chills nausea vomiting abdominal pain or any other associated symptoms. Pain is nonradiating. Pain is sharp in nature on the left-hand side. In the ER patient had imaging and EKG done which was negative for any acute abnormality. Troponin x2 was negative as well. Patient was seen by cardiology in the ER and was asked to be admitted for 24 hr for observation for pericarditis. Allergies Beta-Blockers (Beta-Adrenergic Bloc Adverse Reaction (Verified 10/09/17 11:30) Anaphylaxis metoprolol Adverse Reaction (Verified 10/10/17 06:56) Anaphylaxis No Known Allergies Allergy (Uncoded 10/10/17 20:05) Unknown Home Medications: Lovastatin 40 mg PO DAILY #30 tablet 11/25/17 Nitroglycerin [Nitrostat*] 0.4 mg SL UD PRN #30 tab 11/25/17 Isosorbide Mononitrate [Isosorbide Mononitrate ER] 30 mg PO DAILY 02/08/18 Albuterol Sulfate [Proair Hfa] 8.5 gm IH TID PRN #1 hfa.aer.ad 02/09/18 Aspirin [Aspirin EC 81 MG] 81 mg PO DAILY #30 tablet. 02/09/18 Lisinopril [Prinivil*] 20 mg PO DAILY #30 tab 02/09/18 Pantoprazole [Protonix Tab*] 40 mg PO DAILYAC #30 tab 02/09/18 - Past Medical/Surgical History Has patient received pneumonia vaccine in the past: Yes Diabetic: No -: Angina -: HTN -: Hyperlipidemia -: Tobacco abuse -: CAD -: COPD -: GERD -: Noncompliance with medication and follow up -: CARDIAC CATH 12/2013 NO STENTS 30% BLOCKAGE PER PT -: Cardiac stress tests October 2017 showed no stress-induced ischemia Psychosocial/ Personal History: Patient is single. Patient is homeless. - Family History MOM -: Heart disease, Other (see notes) Notes: MASSIVE OR 61YR and arthritis DAD -: Heart disease, Other (see notes) Notes: POOR CIRCULATION TO LEGS PER PT - Social History Smoking Status: Current every day smoker Alcohol use: Yes CD- Drugs: No Caffeine use: Yes Review of Systems 10-point ROS is otherwise unremarkable Physical Examination - Vital Signs Temperature: 97.1 F Blood Pressure: 124/81 Pulse: 69 Respirations: 17 Pulse Ox (%): 97 - Physical Exam General: Alert, In no apparent distress HEENT: Atraumatic, PERRLA, Mucous membr. moist/pink, EOMI, Sclerae nonicteric Neck: Supple, 2+ carotid pulse no bruit, No LAD, Without JVD or thyroid abnormality Respiratory: Clear to auscultation bilaterally, Normal air movement Cardiovascular: Regular rate/rhythm, Normal S1 S2 Gastrointestinal: Normal bowel sounds, No tenderness Musculoskeletal: No tenderness Integumentary: No rashes Neurological: Normal gait, Normal speech, Normal strength at 5/5 x4 extr, Normal tone, Normal affect Lymphatics: No axilla or inguinal lymphadenopathy Assessment and Plan - Problems (Diagnosis) (1) Pericarditis Current Visit: Yes Status: Acute Plan: Pleuritic chest pain -cardiology consulted. Appreciated recommendations at this time -patient started on IV Solu-Medrol and then prednisone 60 mg daily after that -will get echocardiogram done if needed. Qualifiers: Pericarditis type: idiopathic Chronicity: unspecified Qualified Code(s): I30.0 - Acute nonspecific idiopathic pericarditis (2) Non-compliance Onset Date: 03/03/18 Current Visit: No Status: Chronic (3) CAD (coronary artery disease) Onset Date: 03/03/18 Current Visit: No Status: Chronic Qualifiers: Coronary Disease-Associated Artery/Lesion type: [place] artery [place] vs. transplanted heart: [place] heart Associated angina: angina presence unspecified Qualified Code(s): I25.10 - Atherosclerotic heart disease of [place] coronary artery without angina pectoris (4) COPD (chronic obstructive pulmonary disease) Onset Date: 10/11/17 Current Visit: No Status: Chronic Qualifiers: COPD type: chronic bronchitis Chronic bronchitis type: unspecified Qualified Code(s): J42 - Unspecified chronic bronchitis (5) HLD (hyperlipidemia) Onset Date: 10/11/17 Current Visit: No Status: Chronic Qualifiers: (6) HTN (hypertension) Onset Date: 03/03/18 Current Visit: No Status: Chronic Qualifiers: Hypertension type: essential hypertension Qualified Code(s): I10 - Essential (primary) hypertension (7) Nicotine dependence Onset Date: 10/11/17 Current Visit: No Status: Chronic Qualifiers: Nicotine product type: cigarettes Substance use status: unspecified nicotine-induced disorder Qualified Code(s): F17.219 - Nicotine dependence, cigarettes, with unspecified nicotine-induced disorders (8) Obesity (BMI 30.0-34.9) Onset Date: 12/15/16 Current Visit: No Status: Chronic (9) GERD (gastroesophageal reflux disease) Current Visit: No Status: Chronic Qualifiers: Esophagitis presence: without esophagitis Qualified Code(s): K21.9 - Gastro -esophageal reflux disease without esophagitis - Plan Patient will be admitted to the medical-surgical floor for further workup of his pericarditis and treatment for it as well. Patient will be observed for 24- 48 hr for improvement. Discharge Plan: Home Plan to discharge in: 48 Hours - Advance Directives Does patient have a Living Will: No Does patient have a Durable POA for Healthcare: No - Code Status/Comfort Care Code Status Assessed: Yes Critical Care: No
[2018-04-15] MEDS ORDERED: ATORVASTATIN 20 MG TAB PO SCH (21:00)
[2018-04-16 05:39] LABS: Absolute Lymphocytes (CBC) 1.2 K/uL (0.7-4.9); Absolute Monocytes 0.5 K/uL (0.1-1.3); Absolute Neutrophil 10.4 K/uL (1.8-8.0); Basophils % 0.6 % (0-1.3); Hematocrit 46.2 % (39.6-49.0); Lymphocytes % 9.9 % (15.3-44.8); MCH 31.6 pg (27.0-35.0); MCV 94.3 fL (80-100); MPV 9.6 fL (7.6-11.3); RBC Red Blood Cell Count 4.89 M/uL (4.33-5.43)
[2018-04-16 06:06] LABS: ALT/SGPT 54 U/L (12-78); AST/SGOT 14 U/L (15-37); Albumin 3.4 g/dL (3.4-5.0); Alkaline Phosphatase 46 U/L (45-117); BUN Blood Urea Nitrogen 9 mg/dL (7-18); Bicarbonate 25 mmol/L (21-32); Bilirubin Total 0.3 mg/dL (0.2-1.0); Glucose Level 142 mg/dL (74-106); Protein, Total 6.6 g/dL (6.4-8.2); Sodium Level 138 mmol/L (136-145)
[2018-04-16] MEDS ORDERED: PANTOPRAZOLE 40MG TABLET PO SCH (06:30)
[2018-04-16 06:46] LABS: Blood Morphology Comment NOT SEEN (NOT SEEN); Platelet Estimate ADEQ; Urine White Blood Cell Casts OK
[2018-04-16] MEDS ORDERED: predniSONE 20 MG TAB PO SCH (09:00)
[2018-04-16] MEDS ORDERED: ISOSORBIDE MONO SR 30 MG TAB PO SCH (09:00)
[2018-04-16] MEDS ORDERED: LISINOPRIL 20 MG TAB PO SCH (09:00)
[2018-04-16] MEDS ORDERED: ASPIRIN EC 81 MG TAB PO SCH (09:00)
[2018-04-16] MEDS ORDERED: HOME MED 1 EA UNK (Lovastatin [Lovastatin] 40 MG) PO SCH (09:00)
[2018-04-16] MEDS: NA CHLORIDE 0.9% 1,000 ML IV SCH (09:25)
--- NOTE | 2018-04-16 12:11 | P.DS ---
Admission Date: 04/15/18 Discharge Date: 04/16/18 Primary Care Provider: None Disposition: ROUTINE DISCHARGE Discharge Condition: GOOD Reason for Admission: Chest pain - Problems (1) Pericarditis Current Visit: Yes Status: Acute Qualifiers: Pericarditis type: idiopathic Chronicity: unspecified Qualified Code(s): I30.0 - Acute nonspecific idiopathic pericarditis (2) Non-compliance Onset Date: 03/03/18 Current Visit: No Status: Chronic (3) CAD (coronary artery disease) Onset Date: 03/03/18 Current Visit: No Status: Chronic Qualifiers: Coronary Disease-Associated Artery/Lesion type: [place] artery [place] vs. transplanted heart: [place] heart Associated angina: angina presence unspecified Qualified Code(s): I25.10 - Atherosclerotic heart disease of [place] coronary artery without angina pectoris (4) COPD (chronic obstructive pulmonary disease) Onset Date: 10/11/17 Current Visit: No Status: Chronic Qualifiers: COPD type: chronic bronchitis Chronic bronchitis type: unspecified Qualified Code(s): J42 - Unspecified chronic bronchitis (5) HLD (hyperlipidemia) Onset Date: 10/11/17 Current Visit: No Status: Chronic Qualifiers: (6) HTN (hypertension) Onset Date: 03/03/18 Current Visit: No Status: Chronic Qualifiers: Hypertension type: essential hypertension Qualified Code(s): I10 - Essential (primary) hypertension (7) Nicotine dependence Onset Date: 10/11/17 Current Visit: No Status: Chronic Qualifiers: Nicotine product type: cigarettes Substance use status: unspecified nicotine-induced disorder Qualified Code(s): F17.219 - Nicotine dependence, cigarettes, with unspecified nicotine-induced disorders (8) Obesity (BMI 30.0-34.9) Onset Date: 12/15/16 Current Visit: No Status: Chronic (9) GERD (gastroesophageal reflux disease) Current Visit: No Status: Chronic Qualifiers: Esophagitis presence: without esophagitis Qualified Code(s): K21.9 - Gastro -esophageal reflux disease without esophagitis Brief History of Present Illness: This is a 52-year-old male with significant past medical history of hypertension , hyperlipidemia, CAD, tobacco abuse, who presented to the ED complaining of having some chest pain. Patient has been having several visits to the ER here in the past year for chest pain. Has had ACS rule out in October with her stress test. Also had a cath done last year which was also negative for any coronary artery disease. Patient states that his chest pain is pleuritic in nature and is very positional. The gets worse when he lays down. Patient has associated shortness of breath with that as well. Patient continues to smoke cigarettes 1- 1/2 packs a day. Denies having any fever chills nausea vomiting abdominal pain or any other associated symptoms. Pain is nonradiating. Pain is sharp in nature on the left-hand side. In the ER patient had imaging and EKG done which was negative for any acute abnormality. Troponin x2 was negative as well. Patient was seen by cardiology in the ER and was asked to be admitted for 24 hr for observation for pericarditis. Hospital Course: Overall during the hospital stay patient remained stable Patient was initially admitted to the hospital for chest pain most likely secondary to pericarditis. Cardiology was consulted who recommended patient get IV Solu-Medrol x1 and then switched over to oral prednisone. Patient had marked improvement in his chest pain and thus was discharged home under stable condition. Patient had recent stress testing catheterization done which was negative for any acute coronary artery disease. Patient was asked to continue taking the prednisone for next 14 days and was asked to follow up with cardiology in about 1-2 weeks post discharge. Patient demonstrated understanding and thus was discharged home under stable condition. Vital Signs/Physical Exam: Temp Pulse Resp BP Pulse Ox 97.8 F 72 17 167/88 H 97 04/16/18 08:00 04/16/18 09:26 04/16/18 08:00 04/16/18 09:26 04/16/18 08:00 General: Alert, In no apparent distress HEENT: Atraumatic, PERRLA, EOMI Neck: Supple, JVD not distended Respiratory: Clear to auscultation bilaterally, Normal air movement Cardiovascular: Regular rate/rhythm, Normal S1 S2 Gastrointestinal: Normal bowel sounds, No tenderness Musculoskeletal: No tenderness Integumentary: No rashes Neurological: Normal speech, Normal tone, Normal affect Lymphatics: No axilla or inguinal lymphadenopathy Laboratory Data at Discharge: WBC 12.2 K/uL (4.3-10.9) H D 04/16/18 05:02 Hgb 15.4 g/dL (13.6-17.9) 04/16/18 05:02 Hct 46.2 % (39.6-49.0) 04/16/18 05:02 Plt Count 241 K/uL (152-406) 04/16/18 05:02 PT 11.7 SECONDS (9.5-12.5) 04/15/18 09:20 INR 0.99 04/15/18 09:20 Sodium 138 mmol/L (136-145) 04/16/18 05:02 Potassium 4.0 mmol/L (3.5-5.1) 04/16/18 05:02 BUN 9 mg/dL (7-18) 04/16/18 05:02 Creatinine 0.70 mg/dL (0.55-1.3) 04/16/18 05:02 Glucose 142 mg/dL (74-106) H 04/16/18 05:02 Magnesium 2.3 mg/dL (1.8-2.4) 04/15/18 09:20 Total Bilirubin 0.3 mg/dL (0.2-1.0) 04/16/18 05:02 AST 14 U/L (15-37) L 04/16/18 05:02 ALT 54 U/L (12-78) 04/16/18 05:02 Alkaline Phosphatase 46 U/L (45-117) 04/16/18 05:02 Lipase 201 U/L (73-393) 04/15/18 09:20 Home Medications: Lovastatin 40 mg PO DAILY #30 tablet 11/25/17 Nitroglycerin [Nitrostat*] 0.4 mg SL UD PRN #30 tab 11/25/17 Isosorbide Mononitrate [Isosorbide Mononitrate ER] 30 mg PO DAILY 02/08/18 Albuterol Sulfate [Proair Hfa] 8.5 gm IH TID PRN #1 hfa.aer.ad 02/09/18 Aspirin [Aspirin EC 81 MG] 81 mg PO DAILY #30 tablet. 02/09/18 Lisinopril [Prinivil*] 20 mg PO DAILY #30 tab 02/09/18 Pantoprazole [Protonix Tab*] 40 mg PO DAILYAC #30 tab 02/09/18 predniSONE [Prednisone*] 60 mg PO DAILY 14 Days tab 04/16/18 New Medications: predniSONE [Prednisone*] 60 mg PO DAILY 14 Days tab Diet: Regular Activity: Ad yasmine Followup: Eduardo Hernandes MD [ACTIVE - CAN ADMIT] - 1-2 Weeks
[2018-04-16 12:26] VITALS: BP 180/88; TEMP 97.5
--- NOTE | 2018-04-16 17:14 | PN ---
Mr. Langston has normal enzymes. His pain has gone; pretty sure it was all pericarditis. He will be discharged today. He could either take a Medrol Dosepak or 5 days of prednisone at 60. If his sara carditis and chest pain recurs, we could do a workup for autoimmune disorders, but most likely this i s a nonspecific pericarditis that will resolve. Colchicine can be used if he has chest pain; since dillan rodriguez is not having chest pain, I do not think we need to write a prescription for that. ЕКАТЕРИНА Voice ID: [id number] Report ID: [id number]
--- NOTE | 2018-04-17 10:14 | EKG ---
Test Date: 2018-04-15 Test Time: 08:47:05 Multimedia Producer: SWG MEASUREMENT RESULTS: Intervals: Rate: 84 [place]: 146 QRSD: 102 QT: 338 QTc: 399 [place]: P: 65 [place]: 146 QRS: 79 T: -45 INTERPRETIVE STATEMENTS: Normal sinus rhythm ST & T wave abnormality, consider inferolateral ischemia Abnormal ECG Compared to ECG 03/17/2018 14:19:47 No significant changes Electronically Signed On 04-17-18 10:13:53 CDT by Eduardo Hernandes
== END 2018-04-16 13:15 | disposition home or self-care (01) ==
LOC: ER 08:37 → ERHOLD 09:14 → 2ND 11:42
PROVIDERS: ADMIT Family Medicine; ATTEND Family Medicine
DX: I30.0 Acute nonspecific idiopathic pericarditis (principal); K21.9 Gastro-esophageal reflux disease without esophagitis; E66.9 Obesity, unspecified; Z68.35 Body mass index [BMI] 35.0-35.9, adult; I25.10 Atherosclerotic heart disease of native coronary artery without angina pectoris; J44.9 Chronic obstructive pulmonary disease, unspecified; E78.5 Hyperlipidemia, unspecified; I10 Essential (primary) hypertension; F17.210 Nicotine dependence, cigarettes, uncomplicated; Z91.19 Patient's noncompliance with other medical treatment and regimen
CPT/HCPCS: 36415; 71045; 80048; 80053; 80076; 83690; 83735; 83880; 84484; 85025; 85610; 87086; 87088; 93005; 96372; 96374; 96375; 99285; G0378; J1650; J2405; J2930; J7030; J7512

== ENCOUNTER 2018-04-17 07:28 | Emergency (ER) | payer OTHER, SELFPAY ==
[2018-04-17] MEDS ORDERED: NA CHLORIDE 0.9% 1,000 ML ONE (07:59)
[2018-04-17 08:07] LABS: Absolute Lymphocytes (CBC) 3.1 K/uL (0.7-4.9); Absolute Monocytes 0.9 K/uL (0.1-1.3); Absolute Neutrophil 9.2 K/uL (1.8-8.0); Basophils % 0.6 % (0-1.3); Eosinophils % 0.3 % (0-4.4); Lymphocytes % 23.5 % (15.3-44.8); MCH 31.6 pg (27.0-35.0); MCV 92.6 fL (80-100); Monocytes % 6.5 % (3.3-12.3); RBC Red Blood Cell Count 4.97 M/uL (4.33-5.43)
[2018-04-17 08:11] LABS: Protime INR 0.99
--- NOTE | 2018-04-17 08:17 | RAD REPORT ---
EXAM DESCRIPTION: RAD - Chest Single View - 04/17/2018 8:04 am CLINICAL HISTORY: Cough and congestion COMPARISON: April 15 TECHNIQUE: AP portable chest image was obtained 0757 hours . FINDINGS: No new or progressive lung parenchymal process. No failure or volume overload. Heart and v asculature are normal. No measurable pleural effusion and no pneumothorax. No acute bony abnormality seen. No acute aortic findings suspected. IMPRESSION: No acute cardiopulmonary process. Exam is stable from earlier imaging.
[2018-04-17 08:24] LABS: ALT/SGPT 56 U/L (12-78); AST/SGOT 14 U/L (15-37); Albumin 3.7 g/dL (3.4-5.0); Alkaline Phosphatase 43 U/L (45-117); BUN Blood Urea Nitrogen 15 mg/dL (7-18); Bicarbonate 29 mmol/L (21-32); Bilirubin Direct < 0.1 mg/dL (0-0.2); Bilirubin Total 0.2 mg/dL (0.2-1.0); Glucose Level 89 mg/dL (74-106); Magnesium 2.2 mg/dL (1.8-2.4); NT PRO-BNP 278 pg/mL (<125); Potassium 3.3 mmol/L (3.5-5.1); Protein, Total 6.7 g/dL (6.4-8.2); Sodium Level 142 mmol/L (136-145); Troponin (Emerg Dept Use Only) < 0.02 ng/mL (0.0-0.045)
--- NOTE | 2018-04-17 09:46 | EDPHYS ---
Physician Documentation [facility] Name: Juan Miguel Langston Age: 52 yrs Sex: Male : 1965 Arrival Date: 04/17/2018 Time: 07:30 Bed 13 Private MD: ED Physician Lenard Rosario HPI: 04/17 09:37 This 52 yrs old Male presents to ER via Ambulatory with complaints of High rambo Blood Pressure. 09:37 The patient has elevated blood pressure and discovered this at home. Onset: The rambo symptoms/episode began/occurred just prior to arrival, this morning. Modifying factors: The symptoms are aggravated by activity, The symptoms are alleviated by remaining still. Associated signs and symptoms: The patient has no apparent associated signs or symptoms. Associated signs and symptoms: Pertinent positives: chest pain. Severity of symptoms: At its worst the blood pressure was moderate, in the emergency department the blood pressure is improved, moderately. The patient has experienced similar episodes in the past, multiple times. Historical: - Allergies: 07:34 NKA; sv - Home Meds: 07:34 amlodipine 5 mg tab 1 tab once daily [Active]; aspirin 81 mg Oral chew 1 tab once daily sv [Active]; fluticasone-salmeterol inhalation [Active]; lisinopril 20 mg Oral tab 1 tab once daily [Active]; nitroglycerin 0.4 mg SL subl 1 tab every 5 minutes [Active]; pantoprazole 40 mg Oral TbEC 1 tab once daily [Active]; ProAir HFA inhalation [Active]; - PMHx: 07:34 Angina; High Cholesterol; Hypertension; Myocardial infarction; sv - PSHx: 07:34 None; sv - Immunization history:: Flu vaccine is not up to date. - Social history:: Smoking status: Patient uses tobacco products, smokes one-half pack cigarettes per day, Patient/guardian denies using alcohol. - Ebola Screening: : No symptoms or risks identified at this time. ROS: 09:42 Constitutional: Negative for fever, chills, and weight loss, Eyes: Negative for injury, rambo pain, redness, and discharge, ENT: Negative for injury, pain, and discharge, Neck: Negative for injury, pain, and swelling, Respiratory: Negative for shortness of breath, cough, wheezing, and pleuritic chest pain, Abdomen/GI: Negative for abdominal pain, nausea, vomiting, diarrhea, and constipation, Back: Negative for injury and pain, : Negative for injury, bleeding, discharge, and swelling, MS/Extremity: Negative for injury and deformity, Skin: Negative for injury, rash, and discoloration, Neuro: Negative for headache, weakness, numbness, tingling, and seizure. 09:42 Cardiovascular: Positive for chest pain. Exam: 09:42 Constitutional: This is a well developed, well nourished patient who is awake, alert, rambo and in no acute distress. Head/Face: Normocephalic, atraumatic. Eyes: Pupils equal round and reactive to light, extra-ocular motions intact. Lids and lashes normal. Conjunctiva and sclera are non-icteric and not injected. Cornea within normal limits. Periorbital areas with no swelling, redness, or edema. ENT: Nares patent. No nasal discharge, no septal abnormalities noted. Tympanic membranes are normal and external auditory canals are clear. Oropharynx with no redness, swelling, or masses, exudates, or evidence of obstruction, uvula midline. Mucous membranes moist. Neck: Trachea midline, no thyromegaly or masses palpated, and no cervical lymphadenopathy. Supple, full range of motion without nuchal rigidity, or vertebral point tenderness. No Meningismus. Chest/axilla: Normal chest wall appearance and motion. Nontender with no deformity. No lesions are appreciated. Cardiovascular: Regular rate and rhythm with a normal S1 and S2. No gallops, murmurs, or rubs. Normal PMI, no JVD. No pulse deficits. Respiratory: Lungs have equal breath sounds bilaterally, clear to auscultation and percussion. No rales, rhonchi or wheezes noted. No increased work of breathing, no retractions or nasal flaring. Abdomen/GI: Soft, non-tender, with normal bowel sounds. No distension or tympany. No guarding or rebound. No evidence of tenderness throughout. Back: No spinal tenderness. No costovertebral tenderness. Full range of motion. Male : Normal genitalia with no discharge or lesions. Skin: Warm, dry with normal turgor. Normal color with no rashes, no lesions, and no evidence of cellulitis. MS/ Extremity: Pulses equal, no cyanosis. Neurovascular intact. Full, normal range of motion. Neuro: Awake and alert, GCS 15, oriented to person, place, time, and situation. Cranial nerves II-XII grossly intact. Motor strength 5/5 in all extremities. Sensory grossly intact. Cerebellar exam normal. Normal gait. Psych: Awake, alert, with orientation to person, place and time. Behavior, mood, and affect are within normal limits. Vital Signs: 07:34 BP 159 / 104; Pulse 95; Resp 18; Pulse Ox 97% ; Weight 98.43 kg; Height 5 ft. 6 in. sv (167.64 cm); Pain 7/10; 07:43 BP 173 / 97; Pulse 99; Resp 14; Pulse Ox 99% ; bp 08:35 BP 146 / 91; Pulse 76; Resp 18; Pulse Ox 97% on R/A; ph 09:52 BP 134 / 92; Pulse 76; Resp 18; Temp 97.9; Pulse Ox 98% on R/A; ph 07:34 Body Mass Index 35.02 (98.43 kg, 167.64 cm) sv MDM: 07:45 Patient medically screened. [facility] 04/17 07:46 Order name: Basic Metabolic Panel; Complete Time: 09:43 [facility] 04/17 07:46 Order name: CBC with Diff; Complete Time: 09:43 [facility] 04/17 07:46 Order name: LFT's; Complete Time: 09:43 [facility] 04/17 07:46 Order name: Magnesium; Complete Time: 09:43 [facility] 04/17 07:46 Order name: NT PRO-BNP; Complete Time: 09:43 [facility] 04/17 07:46 Order name: PT-INR; Complete Time: 09:43 [facility] 04/17 07:46 Order name: Troponin (emerg Dept Use Only); Complete Time: 09:43 [facility] 04/17 07:46 Order name: XRAY Chest (1 view); Complete Time: 09:43 [facility] 04/17 07:46 Order name: EKG; Complete Time: 07:47 [facility] 04/17 07:46 Order name: Cardiac monitoring; Complete Time: 08:02 [facility] 04/17 07:46 Order name: EKG - Nurse/Tech; Complete Time: 08:07 [facility] 04/17 08:27 Order name: Urine Dipstick--Ancillary (enter results) 04/17 07:46 Order name: IV Saline Lock; Complete Time: 07:50 [facility] 04/17 07:46 Order name: Labs collected and sent; Complete Time: 07:50 [facility] 04/17 07:46 Order name: O2 Per Protocol; Complete Time: 07:49 [facility] 04/17 07:46 Order name: O2 Sat Monitoring; Complete Time: 07:49 [facility] 04/17 07:46 Order name: Urine Dipstick-Ancillary (obtain specimen); Complete Time: 08:19 [facility] Administered Medications: 08:01 Drug: NS 0.9% 1000 ml Route: IV; Rate: 75 ml/hr; Site: right antecubital; ph 10:00 Follow up: Response: No adverse reaction; IV Status: Completed infusion ph 10:04 Drug: Potassium Effervescent Tablet 25 mEq Route: PO; ph 10:04 Follow up: Response: No adverse reaction ph Disposition: 04/17/18 09:45 Discharged to Home. Impression: Other chest pain, Essential (primary) hypertension, Hypokalemia. - Condition is Stable. - Discharge Instructions: Nonspecific Chest Pain, Chest Wall Pain, Potassium Content of Foods, Hypertension, Nonspecific Chest Pain, [id number]-[id number], Hypertension, [id number]. - Medication Reconciliation Form, Thank You Letter, Antibiotic Education, Prescription Opioid Use form. - Follow up: Eduardo Hernandes MD; When: 2 - 3 days; Reason: Recheck today's complaints, Re-evaluation by your physician. - Problem is new. - Symptoms have improved. Signatures: Dispatcher [employer] Nilda Smyth RN RN Lenard Ruiz MD MD cha Hall, Patricia, RN RN ph Corrections: (The following items were deleted from the chart) 10:04 09:45 04/17/2018 09:45 Discharged to Home. Impression: Other chest pain; Essential ph (primary) hypertension; Hypokalemia. Condition is Stable. Forms are Medication Reconciliation Form, Thank You Letter, Antibiotic Education, Prescription Opioid Use. Follow up: Eduardo Hernandes; When: 2 - 3 days; Reason: Recheck today's complaints, Re-evaluation by your physician. Problem is new. Symptoms have improved. rambo
--- NOTE | 2018-04-17 09:46 | ER ---
Nurse's Notes [facility] Name: Juan Miguel Langston Age: 52 yrs Sex: Male : 1965 Arrival Date: 04/17/2018 Time: 07:30 Bed 13 Private MD: Diagnosis: Other chest pain;Essential (primary) hypertension;Hypokalemia Presentation: 04/17 07:32 Presenting complaint: Patient states: HTN that started this morning. c/o head pressure, sv neck burning and knees down burning. BP at home 162/102. Transition of care: patient was not received from another setting of care. Onset of symptoms was April 17, 2018. Care prior to arrival: None. 07:32 Method Of Arrival: Ambulatory sv 07:32 Acuity: DESTINY 3 sv 07:45 Risk Assessment: Do you want to hurt yourself or someone else? Patient reports no ph desire to harm self or others. Initial Sepsis Screen: Does the patient meet any 2 criteria? No. Patient's initial sepsis screen is negative. Does the patient have a suspected source of infection? No. Patient's initial sepsis screen is negative. Historical: - Allergies: 07:34 NKA; sv - Home Meds: 07:34 amlodipine 5 mg tab 1 tab once daily [Active]; aspirin 81 mg Oral chew 1 tab once daily sv [Active]; fluticasone-salmeterol inhalation [Active]; lisinopril 20 mg Oral tab 1 tab once daily [Active]; nitroglycerin 0.4 mg SL subl 1 tab every 5 minutes [Active]; pantoprazole 40 mg Oral TbEC 1 tab once daily [Active]; ProAir HFA inhalation [Active]; - PMHx: 07:34 Angina; High Cholesterol; Hypertension; Myocardial infarction; sv - PSHx: 07:34 None; sv - Immunization history:: Flu vaccine is not up to date. - Social history:: Smoking status: Patient uses tobacco products, smokes one-half pack cigarettes per day, Patient/guardian denies using alcohol. - Ebola Screening: : No symptoms or risks identified at this time. Screenin:43 Abuse screen: Denies threats or abuse. Denies injuries from another. Nutritional bp screening: No deficits noted. Tuberculosis screening: No symptoms or risk factors identified. Fall Risk None identified. Assessment: 07:41 General: Appears in no apparent distress. uncomfortable, Behavior is calm, cooperative, bp appropriate for age. General: 52YO WM P/W HTN AND MATHEW SINCE THIS AM. PT STATES TOOK REGULAR BP MEDICATION THIS AM WITH ADD'L NTG WITH NO RELIEF. NO FOCAL NEURO DEFICITS NOTED. Pain: Complains of pain in head. Neuro: Level of Consciousness is awake, alert, obeys commands, Oriented to person, place, time, situation, Appropriate for age. Cardiovascular: Rhythm is regular. Respiratory: Airway is patent Respiratory effort is even, unlabored, Respiratory pattern is regular, symmetrical. GI: No signs and/or symptoms were reported involving the gastrointestinal system. : No signs and/or symptoms were reported regarding the genitourinary system. EENT: No deficits noted. Derm: No deficits noted. Musculoskeletal: Circulation, motion, and sensation intact. Range of motion: intact in all extremities. 08:37 Reassessment: Patient appears in no apparent distress at this time. Patient and/or ph family updated on plan of care and expected duration. Pain level reassessed. Patient is alert, oriented x 3, equal unlabored respirations, skin warm/dry/pink. Pt resting quietly, awaiting lab and radiology results. 09:52 Reassessment: Patient appears in no apparent distress at this time. Patient and/or ph family updated on plan of care and expected duration. Pain level reassessed. Patient is alert, oriented x 3, equal unlabored respirations, skin warm/dry/pink. Vital Signs: 07:34 BP 159 / 104; Pulse 95; Resp 18; Pulse Ox 97% ; Weight 98.43 kg; Height 5 ft. 6 in. sv (167.64 cm); Pain 7/10; 07:43 BP 173 / 97; Pulse 99; Resp 14; Pulse Ox 99% ; bp 08:35 BP 146 / 91; Pulse 76; Resp 18; Pulse Ox 97% on R/A; ph 09:52 BP 134 / 92; Pulse 76; Resp 18; Temp 97.9; Pulse Ox 98% on R/A; ph 07:34 Body Mass Index 35.02 (98.43 kg, 167.64 cm) sv ED Course: 07:30 Patient arrived in ED. as 07:33 Triage completed. sv 07:36 Arm band placed on. sv 07:43 Patient has correct armband on for positive identification. Bed in low position. Call bp light in reach. Side rails up X2. 07:45 Lenard Rosario MD is Attending Physician. rambo 07:47 Frida Leyva, RN is Primary Nurse. ph 07:56 Initial lab(s) drawn, by me, sent to lab. Inserted saline lock: 20 gauge in right dh3 antecubital area, using aseptic technique. Blood collected. 08:02 XRAY Chest (1 view) In Process Unspecified. EDMS 08:15 Urine collected: clean catch specimen, clear. 3 08:17 EKG done, by guitar technician. reviewed by Lenard Rosario MD. at1 09:45 Eduardo Hernandes MD is Referral Physician. rambo 09:53 No provider procedures requiring assistance completed. ph 09:53 IV discontinued, intact, bleeding controlled, No redness/swelling at site. Pressure ph dressing applied. Administered Medications: 08:01 Drug: NS 0.9% 1000 ml Route: IV; Rate: 75 ml/hr; Site: right antecubital; ph 10:00 Follow up: Response: No adverse reaction; IV Status: Completed infusion ph 10:04 Drug: Potassium Effervescent Tablet 25 mEq Route: PO; ph 10:04 Follow up: Response: No adverse reaction ph Outcome: 09:45 Discharge ordered by . rambo 10:04 Patient left the ED. ph 10:04 Discharged to home ambulatory. ph 10:04 Condition: good 10:04 Discharge instructions given to patient, Instructed on discharge instructions, follow up and referral plans. Demonstrated understanding of instructions, follow-up care. Signatures: Dispatcher [employer] EDNY Nilda Olea, Lenard Hutchinson RN, MD MD cha Martinez, Amelia as [place], audio narrator EKG Tat1 Frida Leyva, RN RN [place] [id number] Cl Gan RN RN bp Corrections: (The following items were deleted from the chart) 07:34 07:32 Presenting complaint: Patient states: HTN that started this morning. c/o head sv pressure, neck burning and knees down burning. sv 07:36 07:34 Pulse 95bpm; Resp 18bpm; Pulse Ox 97%; 98.43 kg; Height 5 ft. 6 in.; BMI: 35.0; sv Pain 7/10; sv
--- NOTE | 2018-04-17 10:02 | EKG ---
Test Date: 2018-04-17 Test Time: 08:16:23 Cub Reporter: SERG MEASUREMENT RESULTS: Intervals: Rate: 80 OK: 142 QRSD: 114 QT: 374 QTc: 431 [place]: P: 55 OK: 142 QRS: 59 T: 268 INTERPRETIVE STATEMENTS: Normal sinus rhythm ST & T wave abnormality, consider inferolateral ischemia Abnormal ECG Compared to ECG 04/15/2018 08:47:05 No significant changes Electronically Signed On 04-17-18 10:01:24 CDT by Eduardo Hernandes
[2018-04-17] MEDS ORDERED: POTASSIUM CL SA 10 MEQ TAB PO ONE (10:03)
[2018-04-17 11:37] LABS: Urine Blood NEGATIVE (NEG); Urine Glucose NEGATIVE (NEG); Urine Protein 1+ (NEG)
[2018-04-18 14:32] VITALS: BP 134/92; TEMP 97.9; O2SAT 98
== END 2018-04-17 10:04 | disposition home or self-care (01) ==
LOC: ER 07:28
DX: I10 Essential (primary) hypertension (principal); E87.6 Hypokalemia; F17.210 Nicotine dependence, cigarettes, uncomplicated; E78.00 Pure hypercholesterolemia, unspecified; I25.2 Old myocardial infarction; Z79.82 Long term (current) use of aspirin
CPT/HCPCS: 36415; 71045; 80048; 80076; 81003; 83735; 83880; 84484; 85025; 85610; 93005; 96360; 96361; 99284; J7030

== ENCOUNTER 2018-04-21 18:35 | Emergency (ER) | payer OTHER, SELFPAY ==
[2018-04-21 19:06] LABS: Absolute Lymphocytes (CBC) 0.8 K/uL (0.7-4.9); Absolute Monocytes 0.3 K/uL (0.1-1.3); Absolute Neutrophil 6.5 K/uL (1.8-8.0); Basophils % 0.3 % (0-1.3); Eosinophils % 0.1 % (0-4.4); MCH 31.7 pg (27.0-35.0); MCV 93.4 fL (80-100); MPV 8.9 fL (7.6-11.3); Monocytes % 3.8 % (3.3-12.3); RBC Red Blood Cell Count 5.03 M/uL (4.33-5.43)
[2018-04-21 19:09] LABS: Protime INR 1.1
[2018-04-21] MEDS ORDERED: METHYLPREDNISOLONE 125 MG INJ ONE (19:10)
[2018-04-21 19:35] LABS: ALT/SGPT 63 U/L (12-78); AST/SGOT 13 U/L (15-37); Albumin 3.5 g/dL (3.4-5.0); Alkaline Phosphatase 46 U/L (45-117); BUN Blood Urea Nitrogen 19 mg/dL (7-18); Bicarbonate 24 mmol/L (21-32); Bilirubin Direct < 0.1 mg/dL (0-0.2); Bilirubin Total 0.3 mg/dL (0.2-1.0); Glucose Level 202 mg/dL (74-106); Magnesium 1.9 mg/dL (1.8-2.4); NT PRO-BNP 24 pg/mL (<125); Potassium 3.8 mmol/L (3.5-5.1); Protein, Total 6.7 g/dL (6.4-8.2); Sodium Level 140 mmol/L (136-145); Troponin (Emerg Dept Use Only) < 0.02 ng/mL (0.0-0.045)
--- NOTE | 2018-04-21 19:37 | RAD REPORT ---
EXAM DESCRIPTION: RAD - Chest Single View - 04/21/2018 7:02 pm CLINICAL HISTORY: Chest pain and pressure COMPARISON: April 17 TECHNIQUE: AP portable chest image was obtained 1848 hours . FINDINGS: Lungs are clear. Heart and vasculature are normal. No measurable pleural effusion and no p neumothorax. No acute bony abnormality seen. No acute aortic findings suspected. IMPRESSION: No acute cardiopulmonary process. No significant change from comparison.
[2018-04-21] MEDS ORDERED: NA CHLORIDE 0.9% 1,000 ML ONE (19:56)
--- NOTE | 2018-04-21 20:57 | EDPHYS ---
Physician Documentation [facility] Name: Juan Miguel Langston Age: 52 yrs Sex: Male : 1965 Arrival Date: 04/21/2018 Time: 18:40 Bed 8 Private MD: ED Physician Rashard Bardales HPI: 04/21 19:00 This 52 yrs old Male presents to ER via EMS with complaints of Chest Pain > pm1 30 y/o. 19:00 The patient or guardian reports chest pain that is located primarily in the mid-sternal pm1 area. Onset: this morning. The pain does not radiate. Associated signs and symptoms: Pertinent negatives: abdominal pain, cough, diaphoresis, dizziness, headache, nausea, palpitations, shortness of breath, vomiting. The chest pain is described as a pressure. Duration: The patient or guardian reports a single episode, that is still ongoing. Modifying factors: The symptoms are alleviated by positioning between sitting up straight and laying back. the symptoms are aggravated by deep breath, Leaning forward and laying flat on his back. Patient was admitted on 04/15 and discharged on 04/16 with the same complaints. He was evaluated by cardiology and diagnosed with pericarditis that improved with steroids. He had negative serial enzymes. He has had a recent negative stress test, negative 2D echo with Doppler, and cardiac cath with minimal plaquing. . The patient has been recently been admitted at [facility], was discharged earlier this week. Patient just started taking discharge prescription for steroids today. Historical: - Allergies: 18:45 Metoprolol Tartrate; tw2 - Home Meds: 18:45 amlodipine 5 mg tab 1 tab once daily [Active]; aspirin 81 mg Oral chew 1 tab once daily tw2 [Active]; fluticasone-salmeterol inhalation [Active]; lisinopril 20 mg Oral tab 1 tab once daily [Active]; nitroglycerin 0.4 mg SL subl 1 tab every 5 minutes [Active]; nitroglycerin 0.4 mg SL subl 1 tab every 5 minutes [Active]; pantoprazole 40 mg Oral TbEC 1 tab once daily [Active]; ProAir HFA inhalation [Active]; - PMHx: 18:45 Angina; Myocardial infarction; Hypertension; High Cholesterol; tw2 - PSHx: 18:45 None; tw2 - Immunization history:: Adult Immunizations. - Social history:: Smoking status: Patient uses tobacco products, smokes one-half pack cigarettes per day. - Ebola Screening: : Patient denies travel to an Ebola-affected area in the 21 days before illness onset. ROS: 19:00 Constitutional: Negative for fever, chills, and weight loss, Eyes: Negative for injury, pm1 pain, redness, and discharge, ENT: Negative for injury, pain, and discharge, Neck: Negative for injury, pain, and swelling. 19:00 Respiratory: Negative for shortness of breath, cough, wheezing, and pleuritic chest pain, Abdomen/GI: Negative for abdominal pain, nausea, vomiting, diarrhea, and constipation, Back: Negative for injury and pain, : Negative for injury, bleeding, discharge, and swelling, MS/Extremity: Negative for injury and deformity, Skin: Negative for injury, rash, and discoloration, Neuro: Negative for headache, weakness, numbness, tingling, and seizure. 19:00 Cardiovascular: Positive for chest pain, Negative for edema, palpitations. Exam: 19:00 Constitutional: This is a well developed, well nourished patient who is awake, alert, pm1 and in no acute distress. Head/Face: Normocephalic, atraumatic. Eyes: Pupils equal round and reactive to light, extra-ocular motions intact. Lids and lashes normal. Conjunctiva and sclera are non-icteric and not injected. Cornea within normal limits. Periorbital areas with no swelling, redness, or edema. ENT: Nares patent. No nasal discharge, no septal abnormalities noted. Tympanic membranes are normal and external auditory canals are clear. Oropharynx with no redness, swelling, or masses, exudates, or evidence of obstruction, uvula midline. Mucous membranes moist. Neck: Trachea midline, no thyromegaly or masses palpated, and no cervical lymphadenopathy. Supple, full range of motion without nuchal rigidity, or vertebral point tenderness. No Meningismus. Chest/axilla: Normal chest wall appearance and motion. Nontender with no deformity. No lesions are appreciated. Cardiovascular: Regular rate and rhythm with a normal S1 and S2. No gallops, murmurs, or rubs. Normal PMI, no JVD. No pulse deficits. Respiratory: Lungs have equal breath sounds bilaterally, clear to auscultation and percussion. No rales, rhonchi or wheezes noted. No increased work of breathing, no retractions or nasal flaring. Abdomen/GI: Soft, non-tender, with normal bowel sounds. No distension or tympany. No guarding or rebound. No evidence of tenderness throughout. Back: No spinal tenderness. No costovertebral tenderness. Full range of motion. Skin: Warm, dry with normal turgor. Normal color with no rashes, no lesions, and no evidence of cellulitis. MS/ Extremity: Pulses equal, no cyanosis. Neurovascular intact. Full, normal range of motion. 19:00 Neuro: Orientation: is normal, Motor: is normal, Sensation: is normal, no obvious gross deficits. Vital Signs: 18:47 BP 156 / 94; Pulse 106; Resp 21; Temp 98.5(O); Pulse Ox 97% ; Pain 8/10; tw2 19:08 BP 152 / 90; Pulse 96; Resp 15; Pulse Ox 96% on R/A; Pain 8/10; ao 20:18 BP 129 / 73; Pulse 81; Resp 14; Pulse Ox 96% on R/A; ao 21:20 BP 132 / 72; Pulse 83; Resp 16; Pulse Ox 100% ; Pain 0/10; ao MDM: 18:42 Patient medically screened. pm1 19:00 Data reviewed: vital signs. Data interpreted: Pulse oximetry: on room air is 96 %. pm1 Interpretation: normal. 20:45 Physician consultation: Nazario Anderson MD was called at 20:37, was contacted at 20:45, pm1 regarding and will see patient in office, next week, Knows patient and knows that he has had negative cardiac stress test, catheterization and echocardiogram, and patient does not need to be admitted. Recommends colchicine 0.6 mg PO BID with his steroids and follow up in the office in 1 week. 21:04 Counseling: I had a detailed discussion with the patient and/or guardian regarding: the pm1 historical points, exam findings, and any diagnostic results supporting the discharge/admit diagnosis, lab results, radiology results, the need for outpatient follow up, a staff nurse anesthetist, to return to the emergency department if symptoms worsen or persist or if there are any questions or concerns that arise at home. Special discussion:. 21:04 Special discussion: Based on the patient's history, exam, and Dx evaluation, there is pm1 no indication for emergent intervention or inpatient Tx. It is understood by the patient/guardian that if the Sx's persist or worsen they need to return immediately for re-evaluation. 04/21 18:44 Order name: Basic Metabolic Panel; Complete Time: 19:37 pm1 04/21 18:44 Order name: CBC with Diff; Complete Time: 21:03 pm1 04/21 18:44 Order name: LFT's; Complete Time: 19:37 pm1 04/21 18:44 Order name: Magnesium; Complete Time: 19:37 pm1 04/21 18:44 Order name: NT PRO-BNP; Complete Time: 19:37 pm1 04/21 18:44 Order name: PT-INR; Complete Time: 19:37 pm1 04/21 18:44 Order name: Troponin (emerg Dept Use Only); Complete Time: 19:37 pm1 04/21 18:44 Order name: XRAY Chest (1 view); Complete Time: 19:47 pm1 04/21 18:44 Order name: EKG; Complete Time: 18:44 pm1 04/21 18:44 Order name: Cardiac monitoring; Complete Time: 18:59 pm1 04/21 18:44 Order name: EKG - Nurse/Tech; Complete Time: 18:59 pm1 04/21 21:02 Order name: CBC Smear Scan; Complete Time: 21:03 EDMS 04/21 18:44 Order name: IV Saline Lock; Complete Time: 18:59 pm1 04/21 18:44 Order name: Labs collected and sent; Complete Time: 18:59 pm1 04/21 18:44 Order name: O2 Per Protocol; Complete Time: 18:59 pm1 04/21 18:44 Order name: O2 Sat Monitoring; Complete Time: 18:59 pm1 Administered Medications: 19:08 Drug: SOLU-Medrol 125 mg Route: IVP; Site: right antecubital; ao 21:36 Follow up: Response: No adverse reaction ao 20:56 Drug: Colcrys 0.6 mg Route: PO; ao 21:36 Follow up: Response: No adverse reaction ao Disposition: 04/22 06:05 Co-signature as Attending Physician, Rashard Bardales MD I agree with the assessment and kdr plan of care. Disposition: 04/21/18 20:56 Discharged to Home. Impression: Chest pain, unspecified. - Condition is Stable. - Discharge Instructions: Nonspecific Chest Pain, Pericarditis. - Prescriptions for colchicine 0.6 mg Oral tablet - take 1 tablet by ORAL route 2 times per day; 30 tablet. - Medication Reconciliation Form, Thank You Letter form. - Follow up: Emergency Department; When: As needed; Reason: Worsening of condition. Follow up: Nazario Anderson MD; When: 3-4 days; Reason: Recheck today's complaints, Continuance of care, Re-evaluation by your physician. - Problem is new. - Symptoms have improved. Signatures: Dispatcher [employer] EDMS Rashard Bardales MD MD [facility] Tani Cardozo RN RN ao Oliver Man NP [employer]GER pm1 Myla Shelton RN RN tw2 Corrections: (The following items were deleted from the chart) 04/21 21:36 18:44 Urine Dipstick-Ancillary ordered. pm1 ao 21:40 20:56 04/21/2018 20:56 Discharged to Home. Impression: Chest pain, unspecified. ao Condition is Stable. Forms are Medication Reconciliation Form, Thank You Letter, Antibiotic Education, Prescription Opioid Use. Follow up: Emergency Department; When: As needed; Reason: Worsening of condition. Follow up: Nazario Anderson; When: 3-4 days; Reason: Recheck today's complaints, Continuance of care, Re-evaluation by your physician. Problem is new. Symptoms have improved. pm1
--- NOTE | 2018-04-21 20:57 | ER ---
Nurse's Notes [facility] Name: Juan Miguel Langston Age: 52 yrs Sex: Male : 1965 Arrival Date: 04/21/2018 Time: 18:40 Bed 8 Private MD: Diagnosis: Chest pain, unspecified Presentation: 04/21 18:35 Presenting complaint: EMS states: pt c/o chest pain, more like a pressure that is tw2 sitting on his chest that started this morning, he did take 2 nitro today last one was 10 minutes ago, vs stable, nothing noted on ekg, was hospitalized recently for CHF and hypertension. Transition of care: patient was not received from another setting of care. Onset of symptoms was April 21, 2018. Risk Assessment: Do you want to hurt yourself or someone else? Patient reports no desire to harm self or others. Initial Sepsis Screen: Does the patient meet any 2 criteria? No. Patient's initial sepsis screen is negative. Does the patient have a suspected source of infection? No. Patient's initial sepsis screen is negative. Care prior to arrival: IV initiated. 20 GA, in the right antecubital area. 18:35 Method Of Arrival: EMS: [facility] tw2 18:35 Acuity: DESTINY 3 tw2 Historical: - Allergies: 18:45 Metoprolol Tartrate; tw2 - Home Meds: 18:45 amlodipine 5 mg tab 1 tab once daily [Active]; aspirin 81 mg Oral chew 1 tab once daily tw2 [Active]; fluticasone-salmeterol inhalation [Active]; lisinopril 20 mg Oral tab 1 tab once daily [Active]; nitroglycerin 0.4 mg SL subl 1 tab every 5 minutes [Active]; nitroglycerin 0.4 mg SL subl 1 tab every 5 minutes [Active]; pantoprazole 40 mg Oral TbEC 1 tab once daily [Active]; ProAir HFA inhalation [Active]; - PMHx: 18:45 Angina; Myocardial infarction; Hypertension; High Cholesterol; tw2 - PSHx: 18:45 None; tw2 - Immunization history:: Adult Immunizations. - Social history:: Smoking status: Patient uses tobacco products, smokes one-half pack cigarettes per day. - Ebola Screening: : Patient denies travel to an Ebola-affected area in the 21 days before illness onset. Screenin:43 Abuse screen: Denies threats or abuse. Nutritional screening: No deficits noted. tw2 Tuberculosis screening: No symptoms or risk factors identified. Fall Risk None identified. Assessment: 18:45 General: Appears in no apparent distress. Behavior is anxious. General: Smells of tw2 cigarette smoke. Pain: Complains of pain in chest Pain does not radiate. Pain began this morning. Neuro: Level of Consciousness is awake, alert, obeys commands, Oriented to person, place, time, situation. Cardiovascular: Reports chest pain, shortness of breath, since this morning, "more a pressure or tightness" Heart tones S1 S2 Patient's skin is warm and dry. Respiratory: Airway is patent Respiratory effort is even, unlabored, Respiratory pattern is regular, symmetrical, Breath sounds are clear bilaterally. GI: No signs and/or symptoms were reported involving the gastrointestinal system. : No signs and/or symptoms were reported regarding the genitourinary system. EENT: No signs and/or symptoms were reported regarding the EENT system. Derm: No signs and/or symptoms reported regarding the dermatologic system. Musculoskeletal: Range of motion: intact in all extremities. 19:08 General: Appears in no apparent distress. comfortable, Behavior is calm, cooperative, ao appropriate for age. Pain: Complains of pain in chest Pain does not radiate. Neuro: Level of Consciousness is awake, alert, obeys commands, Oriented to person, place, time, situation, Appropriate for age Moves all extremities. Full function Speech is normal, Facial symmetry appears normal. Cardiovascular: Heart tones S1 S2 Patient's skin is warm and dry. Respiratory: Airway is patent Respiratory effort is even, unlabored, Respiratory pattern is regular, symmetrical, Breath sounds are clear bilaterally. GI: No signs and/or symptoms were reported involving the gastrointestinal system. Abdomen is non-distended. : No signs and/or symptoms were reported regarding the genitourinary system. EENT: No signs and/or symptoms were reported regarding the EENT system. Derm: Skin is pink, warm \\T\\ dry. normal, Skin temperature is warm. Musculoskeletal: Circulation, motion, and sensation intact. Range of motion: intact in all extremities. 20:18 Reassessment: Patient appears in no apparent distress at this time. Patient and/or ao family updated on plan of care and expected duration. Pain level reassessed. Patient is alert, oriented x 3, equal unlabored respirations, skin warm/dry/pink. Waiting Dispo orders. 21:36 Reassessment: Pt Dc home ambulatory. Patient was frustrated and mad because he was not ao admitted to the hospital. Patient refused to sign DC paper. Patient left DC paper and prescriptions and stated that they will not work for his pain. Provider was notified. Patient stable at discharge. Vital Signs: 18:47 BP 156 / 94; Pulse 106; Resp 21; Temp 98.5(O); Pulse Ox 97% ; Pain 8/10; tw2 19:08 BP 152 / 90; Pulse 96; Resp 15; Pulse Ox 96% on R/A; Pain 8/10; ao 20:18 BP 129 / 73; Pulse 81; Resp 14; Pulse Ox 96% on R/A; ao 21:20 BP 132 / 72; Pulse 83; Resp 16; Pulse Ox 100% ; Pain 0/10; ao ED Course: 18:40 Patient arrived in ED. tw2 18:42 Oliver Man NP is PHCP. pm1 18:42 Rashard Bardales MD is Attending Physician. pm1 18:42 Triage completed. tw2 18:42 Maintain EMS IV. Dressing intact. Good blood return noted. Site clean \\T\\ dry. Gauge \\T\\ tw 2 site: 20g RIGHT ac. Patient maintains SpO2 saturation greater than 95% on room air. 18:42 Bed in low position. Call light in reach. Side rails up X 1. Adult w/ patient. Cardiac tw2 monitor on. Pulse ox on. NIBP on. 18:47 Arm band placed on. tw2 19:00 XRAY Chest (1 view) In Process Unspecified. EDMS 19:01 Tani Cardozo, RN is Primary Nurse. ao 19:01 Initial lab(s) drawn, by me, sent to lab. dh3 19:10 Report given to NICCI Freire. tw2 20:55 Nazario Anderson MD is Referral Physician. pm1 21:39 No provider procedures requiring assistance completed. IV discontinued, intact, ao bleeding controlled, No redness/swelling at site. Pressure dressing applied. Administered Medications: 19:08 Drug: SOLU-Medrol 125 mg Route: IVP; Site: right antecubital; ao 21:36 Follow up: Response: No adverse reaction ao 20:56 Drug: Colcrys 0.6 mg Route: PO; ao 21:36 Follow up: Response: No adverse reaction ao Outcome: 20:56 Discharge ordered by . pm1 21:39 Discharged to home ambulatory. ao 21:39 Condition: stable 21:39 Discharge instructions given to patient, Instructed on discharge instructions, follow up and referral plans. Demonstrated understanding of instructions, follow-up care, medications, Prescriptions given X 1. 21:40 Patient left the ED. ao Signatures: Dispatcher [employer] EDTani Malik RN RN ao Oliver Man, FILAMENT SHAPER FILAMENT SHAPER pm1 Myla Shelton RN RN 2 Maria Del Carmen Castillo 3 Corrections: (The following items were deleted from the chart) 22:17 21:36 Reassessment: Pt Dc home ambulatory. Patient was frustrated and mad because he ao was not admitted to the hospital. Patient refused to sign DC paper. Provider was notified. Patient stable at discharge. ao
[2018-04-21] MEDS ORDERED: COLCHICINE 0.6 MG TAB ONE (21:00)
[2018-04-21 21:02] LABS: Blood Morphology Comment NOT SEEN (NOT SEEN); Platelet Estimate ADEQ; Urine White Blood Cell Casts OK
[2018-04-21 21:44] VITALS: TEMP 98.5
[2018-04-21 21:48] VITALS: BP 132/72; O2SAT 100
--- NOTE | 2018-04-23 17:37 | EKG ---
Test Date: 2018-04-21 Test Time: 18:41:27 Pot Feeder: LUCIANO MEASUREMENT RESULTS: Intervals: Rate: 95 HI: 140 QRSD: 102 QT: 332 QTc: 417 [place]: P: 47 HI: 140 QRS: 51 T: -85 INTERPRETIVE STATEMENTS: Normal sinus rhythm ST & T wave abnormality, consider inferolateral ischemia Abnormal ECG Compared to ECG 04/17/2018 08:16:23 No significant changes Electronically Signed On 04-23-18 17:34:03 CDT by Nazario Anderson
== END 2018-04-21 21:40 | disposition home or self-care (01) ==
LOC: ER 18:35
DX: R07.9 Chest pain, unspecified (principal); I10 Essential (primary) hypertension; E78.00 Pure hypercholesterolemia, unspecified; F17.210 Nicotine dependence, cigarettes, uncomplicated; I25.2 Old myocardial infarction; Z88.8 Allergy status to other drugs, medicaments and biological substances
CPT/HCPCS: 36415; 71045; 80048; 80076; 83735; 83880; 84484; 85025; 85610; 93005; 96374; 99285; J2930; J7030

== ENCOUNTER 2018-04-25 07:12 | Emergency (ER) | payer SELFPAY ==
[2018-04-25 08:06] LABS: Protime INR 0.97
[2018-04-25 08:09] LABS: Absolute Lymphocytes (CBC) 1.4 K/uL (0.7-4.9); Absolute Monocytes 0.8 K/uL (0.1-1.3); Absolute Neutrophil 12.3 K/uL (1.8-8.0); Basophils % 0.2 % (0-1.3); Eosinophils % 0.1 % (0-4.4); Hematocrit 48.1 % (39.6-49.0); Lymphocytes % 9.6 % (15.3-44.8); MPV 9.6 fL (7.6-11.3); Monocytes % 5.3 % (3.3-12.3); RBC Red Blood Cell Count 5.17 M/uL (4.33-5.43)
[2018-04-25 08:12] LABS: ALT/SGPT 44 U/L (12-78); AST/SGOT 12 U/L (15-37); Albumin 3.4 g/dL (3.4-5.0); Alkaline Phosphatase 45 U/L (45-117); BUN Blood Urea Nitrogen 27 mg/dL (7-18); Bicarbonate 25 mmol/L (21-32); Bilirubin Total 0.1 mg/dL (0.2-1.0); Glucose Level 155 mg/dL (74-106); Magnesium 2.2 mg/dL (1.8-2.4); NT PRO-BNP 31 pg/mL (<125); Potassium 4.1 mmol/L (3.5-5.1); Protein, Total 6.5 g/dL (6.4-8.2); Sodium Level 138 mmol/L (136-145); Troponin (Emerg Dept Use Only) < 0.02 ng/mL (0.0-0.045)
--- NOTE | 2018-04-25 08:55 | RAD REPORT ---
EXAM DESCRIPTION: RAD - Chest Single View - 04/25/2018 7:55 am CLINICAL HISTORY: CHEST PAIN Chest pain. COMPARISON: Chest Single View dated 04/21/2018; Chest Single View dated 04/17/2018; Chest Single Vie w dated 04/15/2018; Chest Single View dated 03/17/2018 FINDINGS: Portable technique limits examination quality. The lungs are grossly clear. The heart is normal in size. No displaced fractures. IMPRESSION: No acute intrathoracic process suspected.
--- NOTE | 2018-04-25 10:32 | ER ---
Nurse's Notes [facility] Name: Juan Miguel Langstno Age: 52 yrs Sex: Male : 1965 Arrival Date: 04/25/2018 Time: 07:15 Bed 13 Private MD: Diagnosis: Chest pain, unspecified Presentation: 04/25 07:12 Presenting complaint: EMS states: pt c/o DULL chest pain started at 330 this morning, tw2 sinus tach with widened QRS, given 324 ASA \T\ 1 Nitro, 20 g LEFT AC, BGL 170, vs stable. Transition of care: patient was not received from another setting of care. Onset of symptoms was April 25, 2018. Risk Assessment: Do you want to hurt yourself or someone else? Patient reports no desire to harm self or others. Initial Sepsis Screen: Does the patient meet any 2 criteria? No. Patient's initial sepsis screen is negative. Does the patient have a suspected source of infection? No. Patient's initial sepsis screen is negative. Care prior to arrival: IV initiated. 20 GA, in the left antecubital area, Glucose check: 170. 07:12 Method Of Arrival: EMS: [facility] tw2 07:12 Acuity: DESTINY 3 tw2 Historical: - Allergies: 07:23 Metoprolol Tartrate; tw2 - Home Meds: 07:23 amlodipine 5 mg tab 1 tab once daily [Active]; aspirin 81 mg Oral chew 1 tab once daily tw2 [Active]; fluticasone-salmeterol inhalation [Active]; lisinopril 20 mg Oral tab 1 tab once daily [Active]; nitroglycerin 0.4 mg SL subl 1 tab every 5 minutes [Active]; nitroglycerin 0.4 mg SL subl 1 tab every 5 minutes [Active]; pantoprazole 40 mg Oral TbEC 1 tab once daily [Active]; ProAir HFA inhalation [Active]; - PMHx: 07:23 Angina; Hypertension; Myocardial infarction; High Cholesterol; tw2 - PSHx: 07:23 None; tw2 - Immunization history:: Adult Immunizations. - Social history:: Smoking status: Patient uses tobacco products, smokes one pack cigarettes per day. - Ebola Screening: : Patient denies travel to an Ebola-affected area in the 21 days before illness onset. Screenin:21 Abuse screen: Denies threats or abuse. Nutritional screening: No deficits noted. tw2 Tuberculosis screening: No symptoms or risk factors identified. Fall Risk None identified. Assessment: 07:19 General: Appears in no apparent distress. unkempt, Behavior is cooperative, appropriate tw2 for age, anxious. General: Smells of cigarette smoke. Pain: Complains of pain in chest. Neuro: Level of Consciousness is awake, alert, obeys commands, Oriented to person, place, time, situation. Cardiovascular: Heart tones S1 S2 Capillary refill < 3 seconds Patient's skin is warm and dry. Respiratory: Airway is patent Respiratory effort is even, unlabored, Respiratory pattern is regular, symmetrical, Breath sounds are clear bilaterally. GI: No signs and/or symptoms were reported involving the gastrointestinal system. Abdomen is round non-distended, Bowel sounds present X 4 quads. : No signs and/or symptoms were reported regarding the genitourinary system. EENT: No signs and/or symptoms were reported regarding the EENT system. Derm: No signs and/or symptoms reported regarding the dermatologic system. Musculoskeletal: Range of motion: intact in all extremities. 07:54 Reassessment: Patient appears in no apparent distress at this time. Patient and/or tw2 family updated on plan of care and expected duration. Pain level reassessed. Patient is alert, oriented x 3, equal unlabored respirations, skin warm/dry/pink. pt appears to be snoring at this time. 08:41 Reassessment: PT SLEEPING, NO ACUTE FINDINGS AT THIS TIME. ALL INITIAL STUDIES bp UNREMARKABLE, VS NORMAL ON MONITOR. 09:16 Reassessment: Patient appears in no apparent distress at this time. Patient and/or tw2 family updated on plan of care and expected duration. Pain level reassessed. Patient is alert, oriented x 3, equal unlabored respirations, skin warm/dry/pink. 10:25 Reassessment: Patient appears in no apparent distress at this time. No changes from tw2 previously documented assessment. Patient and/or family updated on plan of care and expected duration. Pain level reassessed. Patient is alert, oriented x 3, equal unlabored respirations, skin warm/dry/pink. Vital Signs: 07:18 BP 138 / 77; Pulse 92; Resp 15; Temp 98.5(O); Pulse Ox 98% on R/A; Pain 6/10; tw2 07:53 BP 133 / 60; Pulse 79; Resp 17; Pulse Ox 97% on R/A; tw2 08:40 BP 117 / 60; Pulse 82; Resp 18; Pulse Ox 97% ; bp 09:16 BP 125 / 64; Pulse 82; Resp 17; Pulse Ox 98% on R/A; tw2 10:15 BP 131 / 71; Pulse 81; Resp 23; Pulse Ox 97% on R/A; tw2 ED Course: 07:15 Patient arrived in ED. bd 07:15 Narciso Dawkins MD is Attending Physician. ps1 07:16 Myla Shelton, NICCI is Primary Nurse. tw2 07:18 Triage completed. tw2 07:19 Arm band placed on. tw2 07:19 Placed in gown. Bed in low position. Call light in reach. Side rails up X 1. Cardiac tw2 monitor on. Pulse ox on. NIBP on. 07:43 Initial lab(s) drawn, by fl, sent to lab. Maintain EMS IV. Dressing intact. Site clean mh5 \T\ dry. 07:44 CBC with Diff Sent. mh5 07:44 Magnesium Sent. mh5 07:44 NT PRO-BNP Sent. mh5 07:44 PT-INR Sent. mh5 07:44 Troponin (emerg Dept Use Only) Sent. mh5 07:54 X-ray completed. Portable x-ray completed in exam room. Patient tolerated procedure jb2 well. 07:55 XRAY Chest (1 view) In Process Unspecified. EDMS 07:55 EKG done, by radio electronics technician. reviewed by Narciso Dawkins MD. at1 09:48 Troponin (emerg Dept Use Only) Sent. tw2 10:31 Nazario Anderson MD is Referral Physician. ps1 10:36 No provider procedures requiring assistance completed. IV discontinued, intact, tw2 bleeding controlled, No redness/swelling at site. Pressure dressing applied. Administered Medications: No medications were administered Outcome: 10:32 Discharge ordered by . ps1 10:36 Discharged to home ambulatory. tw2 10:36 Condition: stable 10:36 Discharge instructions given to patient, Instructed on discharge instructions, follow up and referral plans. Demonstrated understanding of instructions, follow-up care. 10:37 Patient left the ED. tw2 Signatures: Dispatcher [employer] EDSD DirTawana bolanos Jesse jb2 Thu [place], maintenance technician 3rd shift EKG Tat1 Myla Shelton RN RN tw2 Fátima Morrow 5 Cl Gan RN RN bp Narciso Dawkins MD MD ps1
--- NOTE | 2018-04-25 10:33 | EDPHYS ---
Physician Documentation [facility] Name: Juan Miguel Langston Age: 52 yrs Sex: Male : 1965 Arrival Date: 04/25/2018 Time: 07:15 Bed 13 Private MD: ED Physician Narciso Dakwins HPI: 04/25 07:21 This 52 yrs old Male presents to ER via EMS with complaints of chest pain / ps1 concern about hypertension. 07:21 Patient has chronic chest pain and going for disability next week for same. Patient of ps1 Baradhi and Hernandes. Onset again today this morning. Took his BP meds as he is supposed to, states his BP " was up there" started having tingling in his arm and lower extremity burning sensation. BP 138/77 in ED. . Historical: - Allergies: 07:23 Metoprolol Tartrate; tw2 - Home Meds: 07:23 amlodipine 5 mg tab 1 tab once daily [Active]; aspirin 81 mg Oral chew 1 tab once daily tw2 [Active]; fluticasone-salmeterol inhalation [Active]; lisinopril 20 mg Oral tab 1 tab once daily [Active]; nitroglycerin 0.4 mg SL subl 1 tab every 5 minutes [Active]; nitroglycerin 0.4 mg SL subl 1 tab every 5 minutes [Active]; pantoprazole 40 mg Oral TbEC 1 tab once daily [Active]; ProAir HFA inhalation [Active]; - PMHx: 07:23 Angina; Hypertension; Myocardial infarction; High Cholesterol; tw2 - PSHx: 07:23 None; tw2 - Immunization history:: Adult Immunizations. - Social history:: Smoking status: Patient uses tobacco products, smokes one pack cigarettes per day. - Ebola Screening: : Patient denies travel to an Ebola-affected area in the 21 days before illness onset. ROS: 07:21 Constitutional: Negative for fever, chills, and weight loss, Eyes: Negative for injury, ps1 pain, redness, and discharge, Respiratory: Negative for shortness of breath, cough, wheezing, and pleuritic chest pain, Abdomen/GI: Negative for abdominal pain, nausea, vomiting, diarrhea, and constipation, Back: Negative for injury and pain, MS/Extremity: Negative for injury and deformity, Skin: Negative for injury, rash, and discoloration, Neuro: Negative for headache, weakness, numbness, tingling, and seizure. 07:21 Cardiovascular: Positive for chest pain. Exam: 07:21 Constitutional: This is a well developed, well nourished patient who is awake, alert, ps1 and in no acute distress. Head/Face: Normocephalic, atraumatic. Eyes: Pupils equal round and reactive to light, extra-ocular motions intact. Lids and lashes normal. Conjunctiva and sclera are non-icteric and not injected. Chest/axilla: Normal chest wall appearance and motion. Nontender with no deformity. No lesions are appreciated. Cardiovascular: Regular rate and rhythm. No gallops, murmurs, or rubs. Normal PMI, no JVD. No pulse deficits. Respiratory: Lungs have equal breath sounds bilaterally, clear to auscultation and percussion. No rales, rhonchi or wheezes noted. No increased work of breathing, no retractions or nasal flaring. Abdomen/GI: Soft, non-tender, with normal bowel sounds. No distension or tympany. No guarding or rebound. No evidence of tenderness throughout. Skin: Warm, dry with normal turgor. Normal color with no rashes, no lesions, and no evidence of cellulitis. MS/ Extremity: Pulses equal, no cyanosis. Neurovascular intact. Full, normal range of motion. Neuro: Awake and alert, GCS 15, oriented to person, place, time, and situation. Cranial nerves II-XII grossly intact. Sensory grossly intact. Vital Signs: 07:18 BP 138 / 77; Pulse 92; Resp 15; Temp 98.5(O); Pulse Ox 98% on R/A; Pain 6/10; tw2 07:53 BP 133 / 60; Pulse 79; Resp 17; Pulse Ox 97% on R/A; tw2 08:40 BP 117 / 60; Pulse 82; Resp 18; Pulse Ox 97% ; bp 09:16 BP 125 / 64; Pulse 82; Resp 17; Pulse Ox 98% on R/A; tw2 10:15 BP 131 / 71; Pulse 81; Resp 23; Pulse Ox 97% on R/A; tw2 MDM: 07:30 Patient medically screened. ps1 09:18 ED course: On chart review patient had recent admission for same, neg enzyme CP rule ps1 out, echo, LHC, and diagnosis of pericarditis. Exceptionally low probability of ACS and more consistent with angina and inflammatory causes. Patient to follow up with Dr. Anderson. . 10:33 Data reviewed: vital signs, nurses notes, lab test result(s), and as a result, I will ps1 discharge patient. 04/25 07:30 Order name: CBC with Diff; Complete Time: 09:04/25 09:20 Interpretation: Normal except: WBC 14.6; recent steroid use . 04/25 07:30 Order name: Magnesium; Complete Time: 09: ps1 04/25 07:30 Order name: NT PRO-BNP; Complete Time: :04/25 07:30 Order name: PT-INR; Complete Time: :04/25 07:30 Order name: Troponin (emerg Dept Use Only); Complete Time: :04/25 09:20 Interpretation: Within normal limits: TROPED < 0.02. 04/25 07:30 Order name: CMP; Complete Time: :04/25 07:30 Order name: XRAY Chest (1 view); Complete Time: : ps1 04/25 07:30 Order name: EKG; Complete Time: 07: ps1 04/25 07:30 Order name: Cardiac monitoring; Complete Time: ps1 04/25 07:30 Order name: EKG - Nurse/Tech; Complete Time: : ps1 04/25 07:30 Order name: IV Saline Lock; Complete Time: :04/25 07:30 Order name: Labs collected and sent; Complete Time: 07:40 ps1 04/25 07:30 Order name: O2 Per Protocol; Complete Time: : ps1 04/25 09:29 Order name: Troponin (emerg Dept Use Only); Complete Time: 10: ps1 04/25 10:29 Interpretation: Within normal limits: TROPED < 0.02; Unchanged. . 04/25 07:30 Order name: O2 Sat Monitoring; Complete Time: 07:34 ps1 EC:24 Rate is 79 beats/min. Rhythm is regular. QRS [place] is Normal. CA interval is normal. QRS ps1 interval is normal. QT interval is normal. No Q waves. T waves are Inverted in leads II, III, aVF. No ST changes noted. Clinical impression: NSR w/ Non-specific ST/T Changes. No change from previous ECG on April 21, 2018. Interpreted by me. Administered Medications: No medications were administered Disposition: 04/25/18 10:32 Discharged to Home. Impression: Chest pain, unspecified. - Condition is Stable. - Discharge Instructions: Nonspecific Chest Pain. - Medication Reconciliation Form, Thank You Letter, Antibiotic Education, Prescription Opioid Use form. - Follow up: Nazario Anderson MD; When: As needed; Reason: Further diagnostic work-up, Recheck today's complaints, Continuance of care, Re-evaluation by your physician. Follow up: Emergency Department; When: As needed; Reason: Worsening of condition. - Problem is chronic. - Symptoms have improved. Signatures: Dispatcher [employer] EDMS Myla Shelton RN RN tw2 Narciso Dawkins MD MD ps1 Corrections: (The following items were deleted from the chart) 10:37 10:32 04/25/2018 10:32 Discharged to Home. Impression: Chest pain, unspecified. tw2 Condition is Stable. Forms are Medication Reconciliation Form, Thank You Letter, Antibiotic Education, Prescription Opioid Use. Follow up: Nazario Anderson; When: As needed; Reason: Further diagnostic work-up, Recheck today's complaints, Continuance of care, Re-evaluation by your physician. Follow up: Emergency Department; When: As needed; Reason: Worsening of condition. Problem is chronic. Symptoms have improved. ps1
[2018-04-25 10:43] VITALS: TEMP 98.5
[2018-04-25 10:47] VITALS: BP 131/71; O2SAT 97
--- NOTE | 2018-04-25 12:11 | EKG ---
Test Date: 2018-04-25 Test Time: 07:52:22 Senior Infrastructure Engineer: SERG MEASUREMENT RESULTS: Intervals: Rate: 79 [place]: 122 QRSD: 102 QT: 348 QTc: 399 [place]: P: 17 [place]: 122 QRS: 62 T: -67 INTERPRETIVE STATEMENTS: Normal sinus rhythm T wave abnormality, consider inferior ischemia Abnormal ECG Compared to ECG 04/21/2018 18:41:27 T-wave abnormality now present ST (T wave) deviation no longer present Possible ischemia still present Electronically Signed On 04-25-18 12:09:54 CDT by Nazario Anderson
== END 2018-04-25 10:37 | disposition home or self-care (01) ==
LOC: ER 07:12
DX: R07.9 Chest pain, unspecified (principal); I10 Essential (primary) hypertension; I25.2 Old myocardial infarction; E78.00 Pure hypercholesterolemia, unspecified; F17.210 Nicotine dependence, cigarettes, uncomplicated; Z79.82 Long term (current) use of aspirin; Z88.8 Allergy status to other drugs, medicaments and biological substances
CPT/HCPCS: 36415; 71045; 80053; 83735; 83880; 84484; 85025; 85610; 93005; 99284

== ENCOUNTER 2018-05-01 11:59 | Emergency (ER) | payer SELFPAY ==
--- NOTE | 2018-05-01 15:44 | EKG ---
Test Date: 2018-05-01 Test Time: 12:39:00 Pulp Mixer: SERG MEASUREMENT RESULTS: Intervals: Rate: 100 [place]: 136 QRSD: 100 QT: 322 QTc: 415 [place]: P: 58 SC: 136 QRS: 70 T: -88 INTERPRETIVE STATEMENTS: Normal sinus rhythm ST & T wave abnormality, consider inferolateral ischemia Abnormal ECG Compared to ECG 04/25/2018 07:52:22 ST (T wave) deviation now present T-wave abnormality no longer present Possible ischemia still present Electronically Signed On 05-01-18 15:44:22 CDT by Eduardo Hernandes
[2018-05-01 16:10] LABS: Absolute Lymphocytes (CBC) 2.5 K/uL (0.7-4.9); Absolute Monocytes 0.9 K/uL (0.1-1.3); Absolute Neutrophil 6.6 K/uL (1.8-8.0); Basophils % 1.3 % (0-1.3); Eosinophils % 2.8 % (0-4.4); Hematocrit 48.1 % (39.6-49.0); Lymphocytes % 24.3 % (15.3-44.8); MCH 31.3 pg (27.0-35.0); MCV 92.8 fL (80-100); MPV 9.1 fL (7.6-11.3); Monocytes % 8.5 % (3.3-12.3); RBC Red Blood Cell Count 5.18 M/uL (4.33-5.43)
[2018-05-01 16:38] LABS: ALT/SGPT 67 U/L (12-78); AST/SGOT 21 U/L (15-37); Albumin 3.5 g/dL (3.4-5.0); Alkaline Phosphatase 46 U/L (45-117); BUN Blood Urea Nitrogen 17 mg/dL (7-18); Bicarbonate 27 mmol/L (21-32); Bilirubin Direct < 0.1 mg/dL (0-0.2); Bilirubin Total 0.3 mg/dL (0.2-1.0); Glucose Level 95 mg/dL (74-106); Magnesium 2.2 mg/dL (1.8-2.4); NT PRO-BNP 10 pg/mL (<125); Potassium 4.2 mmol/L (3.5-5.1); Protein, Total 6.8 g/dL (6.4-8.2); Sodium Level 139 mmol/L (136-145); Troponin (Emerg Dept Use Only) < 0.02 ng/mL (0.0-0.045)
--- NOTE | 2018-05-01 17:18 | ER ---
Nurse's Notes [facility] Name: Juan Miguel Langston Age: 52 yrs Sex: Male : 1965 Arrival Date: 05/01/2018 Time: 12:00 Bed 6 Private MD: Diagnosis: Essential (primary) hypertension;Tobacco abuse counseling;Tobacco use Presentation: 05/01 12:36 Presenting complaint: Patient states: " I took my BP at [facility] and it was 190/99." Pt ph reports"slight" headache and burning in L arm, BP in triage 156/92. Transition of care: patient was not received from another setting of care. Onset of symptoms was May 01, 2018. Risk Assessment: Do you want to hurt yourself or someone else? Patient reports no desire to harm self or others. Care prior to arrival: None. 12:36 Method Of Arrival: Ambulatory 12:36 Acuity: DESTINY 3 ph 17:40 Initial Sepsis Screen: Does the patient meet any 2 criteria? No. Patient's initial sg sepsis screen is negative. Does the patient have a suspected source of infection? No. Patient's initial sepsis screen is negative. Triage Assessment: 17:20 General: Appears in no apparent distress. Behavior is calm, cooperative, appropriate sg for age. Pain: Denies pain. Historical: - Allergies: 12:39 Metoprolol Tartrate; ph - Home Meds: 12:39 amlodipine 5 mg tab 1 tab once daily [Active]; aspirin 81 mg Oral chew 1 tab once daily ph [Active]; fluticasone-salmeterol inhalation [Active]; lisinopril 20 mg Oral tab 1 tab once daily [Active]; nitroglycerin 0.4 mg SL subl 1 tab every 5 minutes [Active]; nitroglycerin 0.4 mg SL subl 1 tab every 5 minutes [Active]; pantoprazole 40 mg Oral TbEC 1 tab once daily [Active]; ProAir HFA inhalation [Active]; - PMHx: 12:39 Angina; High Cholesterol; Hypertension; Myocardial infarction; ph - PSHx: 12:39 None; ph - Immunization history:: Adult Immunizations unknown. - Social history:: Smoking status: Patient uses tobacco products, smokes one pack cigarettes per day. - Family history:: not pertinent. - Ebola Screening: : Patient negative for fever greater than or equal to 101.5 degrees Fahrenheit, and additional compatible Ebola Virus Disease symptoms Patient denies exposure to infectious person Patient denies travel to an Ebola-affected area in the 21 days before illness onset No symptoms or risks identified at this time. Screenin:06 Abuse screen: Denies threats or abuse. Denies injuries from another. Nutritional iw screening: No deficits noted. Tuberculosis screening: No symptoms or risk factors identified. 17:25 Fall Risk None identified. sg Assessment: 16:59 Reassessment: Patient appears in no apparent distress at this time. Patient and/or iw family updated on plan of care and expected duration. Pain level reassessed. Patient is alert, oriented x 3, equal unlabored respirations, skin warm/dry/pink. 17:15 General: Appears in no apparent distress. comfortable, well groomed, well developed, sg well nourished, Behavior is calm, cooperative, appropriate for age. Pain: Denies pain. 17:15 Neuro: Level of Consciousness is awake, alert, obeys commands, Oriented to person, sg place, time, situation, Hot Blaster are equal bilaterally Speech is normal, Facial symmetry appears normal. Cardiovascular: Heart tones S1 S2 present Patient's skin is warm and dry. Respiratory: Airway is patent Respiratory effort is even, unlabored, Respiratory pattern is regular, symmetrical. GI: No signs and/or symptoms were reported involving the gastrointestinal system. : No signs and/or symptoms were reported regarding the genitourinary system. EENT: No signs and/or symptoms were reported regarding the EENT system. Derm: Skin is pink, warm \\T\\ dry. Musculoskeletal: No signs and/or symptoms reported regarding the musculoskeletal system. Vital Signs: 12:37 BP 156 / 92; Pulse 103; Resp 20; Temp 98.2; Pulse Ox 97% on R/A; Weight 96.62 kg; ph 16:59 BP 152 / 57; Pulse 82; Resp 16; Pulse Ox 97% on R/A; iw 17:10 BP 136 / 67; Pulse 85; Resp 16; Pulse Ox 97% on R/A; iw ED Course: 12:00 Patient arrived in ED. as 12:37 Triage completed. ph 12:38 Arm band placed on. Patient placed in waiting room, Patient notified of wait time. EKG ph completed in triage. Results shown to MD. 12:39 EKG done, by machine tech. reviewed by Lenard Rosario MD. 3 15:16 Patient's name was called from ER lobby. No response. ph 15:33 Lenard Rosario MD is Attending Physician. [facility] 15:52 XRAY Chest (1 view) In Process Unspecified. EDMS 15:54 Mehul Deluca, RN is Primary Nurse. 16:06 Initial lab(s) drawn, by me, sent to lab. Inserted saline lock: 20 gauge in left iw antecubital area, using aseptic technique. Blood collected. 17:18 Eduardo Hernandes MD is Referral Physician. [facility] 17:20 Patient has correct armband on for positive identification. Bed in low position. Call sg light in reach. Side rails up X2. deputy chief sheriff on. Pulse ox on. NIBP on. Warm blanket given. Pillow given. Head of bed elevated. 17:40 No provider procedures requiring assistance completed. IV discontinued, intact, sg bleeding controlled, No redness/swelling at site. Pressure dressing applied. Administered Medications: No medications were administered Outcome: 17:18 Discharge ordered by . [facility] 17:40 Discharged to home ambulatory, with family. 17:40 Condition: good 17:40 Discharge instructions given to patient, Instructed on discharge instructions, follow up and referral plans. no drinking with medication, no driving heavy equipment, medication usage, safety practices, Demonstrated understanding of instructions, follow-up care, medications, Prescriptions given X 3. 17:47 Patient left the ED. Signatures: Dispatcher [employer] EDMS Mehul Deluca, RN NICCI Lenard Rosario MD MD cha Martinez, Amelia as Williams, Irene, RN RN Frida Leyva RN RN Katya Lima 3
--- NOTE | 2018-05-01 17:18 | EDPHYS ---
Physician Documentation [facility] Name: Juan Miguel Langston Age: 52 yrs Sex: Male : 1965 Arrival Date: 05/01/2018 Time: 12:00 Bed 6 Private MD: ED Physician Lenard Rosario HPI: 05/01 17:13 This 52 yrs old Male presents to ER via Ambulatory with complaints of High rambo Blood Pressure. 17:13 The patient has elevated blood pressure and discovered this at a drugstore, at home. rambo Onset: The symptoms/episode began/occurred this morning, today. Modifying factors: The symptoms are aggravated by movement, The symptoms are alleviated by remaining still. Associated signs and symptoms: The patient has no apparent associated signs or symptoms. Severity of symptoms: At its worst the blood pressure was mild, in the emergency department the blood pressure is unchanged. The patient has experienced similar episodes in the past, multiple times. Historical: - Allergies: 12:39 Metoprolol Tartrate; ph - Home Meds: 12:39 amlodipine 5 mg tab 1 tab once daily [Active]; aspirin 81 mg Oral chew 1 tab once daily ph [Active]; fluticasone-salmeterol inhalation [Active]; lisinopril 20 mg Oral tab 1 tab once daily [Active]; nitroglycerin 0.4 mg SL subl 1 tab every 5 minutes [Active]; nitroglycerin 0.4 mg SL subl 1 tab every 5 minutes [Active]; pantoprazole 40 mg Oral TbEC 1 tab once daily [Active]; ProAir HFA inhalation [Active]; - PMHx: 12:39 Angina; High Cholesterol; Hypertension; Myocardial infarction; ph - PSHx: 12:39 None; ph - Immunization history:: Adult Immunizations unknown. - Social history:: Smoking status: Patient uses tobacco products, smokes one pack cigarettes per day. - Family history:: not pertinent. - Ebola Screening: : Patient negative for fever greater than or equal to 101.5 degrees Fahrenheit, and additional compatible Ebola Virus Disease symptoms Patient denies exposure to infectious person Patient denies travel to an Ebola-affected area in the 21 days before illness onset No symptoms or risks identified at this time. ROS: 17:13 Constitutional: Negative for fever, chills, and weight loss, Eyes: Negative for injury, rambo pain, redness, and discharge, ENT: Negative for injury, pain, and discharge, Neck: Negative for injury, pain, and swelling, Cardiovascular: Negative for chest pain, palpitations, and edema, Respiratory: Negative for shortness of breath, cough, wheezing, and pleuritic chest pain, Abdomen/GI: Negative for abdominal pain, nausea, vomiting, diarrhea, and constipation, Back: Negative for injury and pain, : Negative for injury, bleeding, discharge, and swelling, MS/Extremity: Negative for injury and deformity, Skin: Negative for injury, rash, and discoloration, Psych: Negative for depression, anxiety, suicide ideation, homicidal ideation, and hallucinations, Allergy/Immunology: Negative for hives, rash, and allergies, Endocrine: Negative for neck swelling, polydipsia, polyuria, polyphagia, and marked weight changes, Hematologic/Lymphatic: Negative for swollen nodes, abnormal bleeding, and unusual bruising. 17:13 Neuro: Positive for dizziness. Exam: 17:13 Constitutional: This is a well developed, well nourished patient who is awake, alert, rambo and in no acute distress. Head/Face: Normocephalic, atraumatic. Eyes: Pupils equal round and reactive to light, extra-ocular motions intact. Lids and lashes normal. Conjunctiva and sclera are non-icteric and not injected. Cornea within normal limits. Periorbital areas with no swelling, redness, or edema. ENT: Nares patent. No nasal discharge, no septal abnormalities noted. Tympanic membranes are normal and external auditory canals are clear. Oropharynx with no redness, swelling, or masses, exudates, or evidence of obstruction, uvula midline. Mucous membranes moist. Neck: Trachea midline, no thyromegaly or masses palpated, and no cervical lymphadenopathy. Supple, full range of motion without nuchal rigidity, or vertebral point tenderness. No Meningismus. Chest/axilla: Normal chest wall appearance and motion. Nontender with no deformity. No lesions are appreciated. Cardiovascular: Regular rate and rhythm with a normal S1 and S2. No gallops, murmurs, or rubs. Normal PMI, no JVD. No pulse deficits. Abdomen/GI: Soft, non-tender, with normal bowel sounds. No distension or tympany. No guarding or rebound. No evidence of tenderness throughout. Back: No spinal tenderness. No costovertebral tenderness. Full range of motion. Male : Normal genitalia with no discharge or lesions. Skin: Warm, dry with normal turgor. Normal color with no rashes, no lesions, and no evidence of cellulitis. MS/ Extremity: Pulses equal, no cyanosis. Neurovascular intact. Full, normal range of motion. Neuro: Awake and alert, GCS 15, oriented to person, place, time, and situation. Cranial nerves II-XII grossly intact. Motor strength 5/5 in all extremities. Sensory grossly intact. Cerebellar exam normal. Normal gait. Psych: Awake, alert, with orientation to person, place and time. Behavior, mood, and affect are within normal limits. 17:13 Respiratory: the patient does not display signs of respiratory distress, Respirations: normal, Breath sounds: rhonchi, that are mild, are scattered, stridor, is not appreciated, + upper airway congestion. wheezing: expiratory 17:17 Musculoskeletal/extremity: DVT Exam: No signs of deep vein thrombosis. no pain, no rambo swelling, no tenderness, negative Homans' sign noted on exam, no appreciated bluish discoloration, no erythema, no increased warmth. Vital Signs: 12:37 BP 156 / 92; Pulse 103; Resp 20; Temp 98.2; Pulse Ox 97% on R/A; Weight 96.62 kg; ph 16:59 BP 152 / 57; Pulse 82; Resp 16; Pulse Ox 97% on R/A; iw 17:10 BP 136 / 67; Pulse 85; Resp 16; Pulse Ox 97% on R/A; iw MDM: 15:33 Patient medically screened. [facility] 17:24 Data reviewed: vital signs, nurses notes, lab test result(s), EKG, radiologic studies, rambo plain films. 05/01 15:34 Order name: Basic Metabolic Panel; Complete Time: 17:13 [facility] 05/01 15:34 Order name: CBC with Diff; Complete Time: 17:13 [facility] 05/01 15:34 Order name: LFT's; Complete Time: 17:13 [facility] 05/01 15:34 Order name: Magnesium; Complete Time: 17:13 [facility] 05/01 15:34 Order name: NT PRO-BNP; Complete Time: 17:13 [facility] 05/01 15:34 Order name: Troponin (emerg Dept Use Only); Complete Time: 17:13 [facility] 05/01 15:34 Order name: XRAY Chest (1 view) [facility] 05/01 15:34 Order name: EKG; Complete Time: 15:35 [facility] 05/01 15:34 Order name: Cardiac monitoring; Complete Time: 15:55 [facility] 05/01 15:34 Order name: EKG - Nurse/Tech; Complete Time: 16:39 [facility] 05/01 15:34 Order name: IV Saline Lock; Complete Time: 15:55 [facility] 05/01 15:34 Order name: Labs collected and sent; Complete Time: 15:55 [facility] 05/01 15:34 Order name: O2 Per Protocol; Complete Time: 15:55 [facility] 05/01 15:34 Order name: O2 Sat Monitoring; Complete Time: 15:55 [facility] Administered Medications: No medications were administered Disposition: 05/01/18 17:18 Discharged to Home. Impression: Essential (primary) hypertension, Tobacco abuse counseling, Tobacco use. - Condition is Stable. - Discharge Instructions: Hypertension, Steps to Quit Smoking, Smoking Hazards, Hypertension, [id number], Steps to Quit Smoking, [id number], How to Take Your Blood Pressure, [id number], Aspirin and Your Heart, Managing Your Hypertension. - Prescriptions for Isosorbide Mononitrate 30 mg Oral Tablet Sustained Release 24 hr - take 1 tablet by ORAL route once daily in the morning; 30 tablet. Norvasc 5 mg Oral Tablet - take 1 tablet by ORAL route every 12 hours; 30 tablet. Lisinopril 20 mg Oral Tablet - take 1 tablet by ORAL route once daily; 20 tablet. - Medication Reconciliation Form, Thank You Letter, Antibiotic Education, Prescription Opioid Use form. - Follow up: Private Physician; When: 1 - 2 days; Reason: Recheck today's complaints, Continuance of care, Re-evaluation by your physician. Follow up: Eduardo Hernandes MD; When: 2 - 3 days; Reason: Recheck today's complaints, Continuance of care, Re-evaluation by your physician. - Problem is new. - Symptoms have improved. Signatures: Dispatcher [employer] EDMehul Valenzuela, Lenard Crook RN, MD MD cha Williams, Irene, RN RN iw Frida Leyva RN RN ph Corrections: (The following items were deleted from the chart) 17:47 17:18 05/01/2018 17:18 Discharged to Home. Impression: Essential (primary) iw hypertension; Tobacco abuse counseling; Tobacco use. Condition is Stable. Forms are Medication Reconciliation Form, Thank You Letter, Antibiotic Education, Prescription Opioid Use. Follow up: Private Physician; When: 1 - 2 days; Reason: Recheck today's complaints, Continuance of care, Re-evaluation by your physician. Follow up: Eduardo Hernandes; When: 2 - 3 days; Reason: Recheck today's complaints, Continuance of care, Re-evaluation by your physician. Problem is new. Symptoms have improved. rambo
--- NOTE | 2018-05-01 18:03 | RAD REPORT ---
EXAM DESCRIPTION: RAD - Chest Single View - 05/01/2018 3:52 pm CLINICAL HISTORY: Cough, hypertension COMPARISON: April 25 TECHNIQUE: AP portable chest image was obtained 1539 hours . FINDINGS: No focal lung parenchymal process. Lung markings are similar to comparison. Heart and vasc ulature are normal. No measurable pleural effusion and no pneumothorax. No acute bony abnormality see n. No acute aortic findings suspected. IMPRESSION: No acute cardiopulmonary process. No significant interval change.
[2018-05-01 19:04] VITALS: TEMP 98.2; O2SAT 97
[2018-05-01 19:07] VITALS: BP 136/67
== END 2018-05-01 17:47 | disposition home or self-care (01) ==
LOC: ER 11:59
DX: I10 Essential (primary) hypertension (principal); I25.2 Old myocardial infarction; F17.210 Nicotine dependence, cigarettes, uncomplicated
CPT/HCPCS: 36415; 71045; 80048; 80076; 83735; 83880; 84484; 85025; 93005; 99284

== ENCOUNTER 2018-07-04 11:07 | Emergency (ER) | payer OTHER, SELFPAY ==
--- NOTE | 2018-07-04 11:53 | EDPHYS ---
Physician Documentation [facility] Name: Juan Miguel Langston Age: 52 yrs Sex: Male : 1965 Arrival Date: 07/04/2018 Time: 11:10 Bed 19 Private MD: ED Physician Lenard Rosario HPI: 07/04 11:48 This 52 yrs old Male presents to ER via Ambulatory with complaints of Leg rambo Pain. 11:48 The patient presents with pain, that is chronic. The complaints affect the right leg rambo and left leg. Context: The problem was sustained at an unknown site. Onset: The symptoms/episode began/occurred 2 week(s) ago. Modifying factors: The symptoms are alleviated by nothing. the symptoms are aggravated by nothing. Associated signs and symptoms: The patient has no apparent associated signs or symptoms. Treatment prior to arrival includes: no previous treatment. Severity of symptoms: At their worst the symptoms were moderate, in the emergency department the symptoms are unchanged. The patient has not experienced similar symptoms in the past. The patient has experienced similar episodes in the past, multiple times. Historical: - Allergies: 11:20 Metoprolol Tartrate; ph - Home Meds: 11:20 amlodipine 5 mg tab 1 tab once daily [Active]; aspirin 81 mg Oral chew 1 tab once daily ph [Active]; fluticasone-salmeterol inhalation [Active]; lisinopril 20 mg Oral tab 1 tab once daily [Active]; nitroglycerin 0.4 mg SL subl 1 tab every 5 minutes [Active]; nitroglycerin 0.4 mg SL subl 1 tab every 5 minutes [Active]; pantoprazole 40 mg Oral TbEC 1 tab once daily [Active]; ProAir HFA inhalation [Active]; - PMHx: 11:20 Angina; High Cholesterol; Hypertension; Myocardial infarction; ph - PSHx: 11:20 None; ph - Immunization history:: Adult Immunizations unknown. - Social history:: Smoking status: Patient uses tobacco products, smokes one-half pack cigarettes per day, vape. - Ebola Screening: : No symptoms or risks identified at this time. ROS: 11:49 Constitutional: Negative for fever, chills, and weight loss, Eyes: Negative for injury, rambo pain, redness, and discharge, ENT: Negative for injury, pain, and discharge, Neck: Negative for injury, pain, and swelling, Cardiovascular: Negative for chest pain, palpitations, and edema, Respiratory: Negative for shortness of breath, cough, wheezing, and pleuritic chest pain, Abdomen/GI: Negative for abdominal pain, nausea, vomiting, diarrhea, and constipation, Back: Negative for injury and pain, : Negative for injury, bleeding, discharge, and swelling, Skin: Negative for injury, rash, and discoloration, Psych: Negative for depression, anxiety, suicide ideation, homicidal ideation, and hallucinations, Allergy/Immunology: Negative for hives, rash, and allergies, Endocrine: Negative for neck swelling, polydipsia, polyuria, polyphagia, and marked weight changes, Hematologic/Lymphatic: Negative for swollen nodes, abnormal bleeding, and unusual bruising. 11:49 MS/extremity: Positive for pain, of the right leg and left leg. Exam: 11:49 Constitutional: This is a well developed, well nourished patient who is awake, alert, rambo and in no acute distress. Head/Face: Normocephalic, atraumatic. Eyes: Pupils equal round and reactive to light, extra-ocular motions intact. Lids and lashes normal. Conjunctiva and sclera are non-icteric and not injected. Cornea within normal limits. Periorbital areas with no swelling, redness, or edema. ENT: Nares patent. No nasal discharge, no septal abnormalities noted. Tympanic membranes are normal and external auditory canals are clear. Oropharynx with no redness, swelling, or masses, exudates, or evidence of obstruction, uvula midline. Mucous membranes moist. Neck: Trachea midline, no thyromegaly or masses palpated, and no cervical lymphadenopathy. Supple, full range of motion without nuchal rigidity, or vertebral point tenderness. No Meningismus. Chest/axilla: Normal chest wall appearance and motion. Nontender with no deformity. No lesions are appreciated. Cardiovascular: Regular rate and rhythm with a normal S1 and S2. No gallops, murmurs, or rubs. Normal PMI, no JVD. No pulse deficits. Respiratory: Lungs have equal breath sounds bilaterally, clear to auscultation and percussion. No rales, rhonchi or wheezes noted. No increased work of breathing, no retractions or nasal flaring. Abdomen/GI: Soft, non-tender, with normal bowel sounds. No distension or tympany. No guarding or rebound. No evidence of tenderness throughout. Back: No spinal tenderness. No costovertebral tenderness. Full range of motion. Male : Normal genitalia with no discharge or lesions. Skin: Warm, dry with normal turgor. Normal color with no rashes, no lesions, and no evidence of cellulitis. MS/ Extremity: Pulses equal, no cyanosis. Neurovascular intact. Full, normal range of motion. Neuro: Awake and alert, GCS 15, oriented to person, place, time, and situation. Cranial nerves II-XII grossly intact. Motor strength 5/5 in all extremities. Sensory grossly intact. Cerebellar exam normal. Normal gait. Psych: Awake, alert, with orientation to person, place and time. Behavior, mood, and affect are within normal limits. 11:49 Musculoskeletal/extremity: DVT Exam: No signs of deep vein thrombosis. no swelling, no tenderness, negative Homans' sign noted on exam, no appreciated bluish discoloration, no erythema, no increased warmth, pain. Vital Signs: 11:19 BP 186 / 116; Pulse 109; Resp 18; Temp 98.3; Pulse Ox 100% on R/A; Weight 103.42 kg; ph Height 5 ft. 6 in. (167.64 cm); Pain 7/10; 11:38 BP 144 / 66; Pulse 100; Resp 14; Pulse Ox 99% ; bp 11:19 Body Mass Index 36.80 (103.42 kg, 167.64 cm) ph MDM: 11:11 Patient medically screened. [facility] 11:57 Data reviewed: vital signs, nurses notes. [facility] 07/04 12:07 Order name: Glucose, Ancillary Testing [facility] 07/04 11:48 Order name: Blood Glucose Level; Complete Time: 12:00 [facility] Administered Medications: 12:00 Drug: [place] 10 mg-325 mg 1 tabs Route: PO; bp 12:08 Follow up: Response: Medication administered at discharge. bp Point of Care Testing: Blood Glucose: 12:00 Blood Glucose: 124 mg/dL; bp Ranges: Critical Glucose Levels:Adult <50 mg/dl or >400 mg/dl <40 mg/dl or >180 mg/dl Disposition: 07/04/18 11:53 Discharged to Home. Impression: Pain in right leg - neuropathy, Pain in left leg - neuropathy. - Condition is Stable. - Discharge Instructions: Musculoskeletal Pain, Peripheral Neuropathy. - Prescriptions for amitriptyline 25 mg Oral tablet - take 1 tablet by ORAL route once daily at bedtime; 20 tablet. Tylenol- Codeine #3 300-30 mg Oral Tablet - take 2 tablets by ORAL route every 6 hours As needed; 20 tablet. - Medication Reconciliation Form, Thank You Letter, Antibiotic Education, Prescription Opioid Use form. - Follow up: Private Physician; When: 2 - 3 days; Reason: Recheck today's complaints, Continuance of care, Re-evaluation by your physician. - Problem is new. - Symptoms have improved. Signatures: Lenard Rosario MD MD cha Hall, Patricia RN RN Cl Gan, NICCI RN bp Corrections: (The following items were deleted from the chart) 12:09 11:53 07/04/2018 11:53 Discharged to Home. Impression: Pain in right leg - neuropathy; bp Pain in left leg - neuropathy. Condition is Stable. Forms are Medication Reconciliation Form, Thank You Letter, Antibiotic Education, Prescription Opioid Use. Follow up: Private Physician; When: 2 - 3 days; Reason: Recheck today's complaints, Continuance of care, Re-evaluation by your physician. Problem is new. Symptoms have improved. rambo
--- NOTE | 2018-07-04 11:53 | ER ---
Nurse's Notes [facility] Name: Juan Miguel Langston Age: 52 yrs Sex: Male : 1965 Arrival Date: 07/04/2018 Time: 11:10 Bed 19 Private MD: Diagnosis: Pain in right leg-neuropathy;Pain in left leg-neuropathy Presentation: 07/04 11:17 Presenting complaint: Patient states: Intermittent wendie lower leg pain x 1- 2 months, ph states, " It's like a burning pain from the knees down." Pt denies injury or swelling. Transition of care: patient was not received from another setting of care. Onset of symptoms was July 04, 2018. Risk Assessment: Do you want to hurt yourself or someone else? Patient reports no desire to harm self or others. Initial Sepsis Screen: Does the patient meet any 2 criteria? No. Patient's initial sepsis screen is negative. Does the patient have a suspected source of infection? No. Patient's initial sepsis screen is negative. Care prior to arrival: None. 11:17 Method Of Arrival: Ambulatory ph 11:17 Acuity: DESTINY 3 ph Triage Assessment: 11:42 General: Appears in no apparent distress. comfortable, obese, Behavior is calm, bp cooperative, appropriate for age. Historical: - Allergies: 11:20 Metoprolol Tartrate; ph - Home Meds: 11:20 amlodipine 5 mg tab 1 tab once daily [Active]; aspirin 81 mg Oral chew 1 tab once daily ph [Active]; fluticasone-salmeterol inhalation [Active]; lisinopril 20 mg Oral tab 1 tab once daily [Active]; nitroglycerin 0.4 mg SL subl 1 tab every 5 minutes [Active]; nitroglycerin 0.4 mg SL subl 1 tab every 5 minutes [Active]; pantoprazole 40 mg Oral TbEC 1 tab once daily [Active]; ProAir HFA inhalation [Active]; - PMHx: 11:20 Angina; High Cholesterol; Hypertension; Myocardial infarction; ph - PSHx: 11:20 None; ph - Immunization history:: Adult Immunizations unknown. - Social history:: Smoking status: Patient uses tobacco products, smokes one-half pack cigarettes per day, vape. - Ebola Screening: : No symptoms or risks identified at this time. Screenin:40 Abuse screen: Denies threats or abuse. Denies injuries from another. Nutritional bp screening: No deficits noted. Tuberculosis screening: No symptoms or risk factors identified. Fall Risk None identified. Assessment: 11:20 General: Appears in no apparent distress. comfortable, obese, Behavior is cooperative, bp appropriate for age, anxious. Pain: Complains of pain in right leg and left leg. Neuro: Level of Consciousness is awake, alert, obeys commands, Oriented to person, place, time, situation, Appropriate for age. Cardiovascular: No deficits noted. Respiratory: Airway is patent Respiratory effort is even, unlabored, Respiratory pattern is regular, symmetrical. GI: No signs and/or symptoms were reported involving the gastrointestinal system. : No signs and/or symptoms were reported regarding the genitourinary system. EENT: No deficits noted. Derm: No deficits noted. Musculoskeletal: Circulation, motion, and sensation intact. Range of motion: intact in all extremities. 12:07 Reassessment: PT D/C HOME AMBULATORY WITH FAMILY, DX WITH NEUROPATHY. bp Vital Signs: 11:19 BP 186 / 116; Pulse 109; Resp 18; Temp 98.3; Pulse Ox 100% on R/A; Weight 103.42 kg; ph Height 5 ft. 6 in. (167.64 cm); Pain 7/10; 11:38 BP 144 / 66; Pulse 100; Resp 14; Pulse Ox 99% ; bp 11:19 Body Mass Index 36.80 (103.42 kg, 167.64 cm) ph ED Course: 11:10 Patient arrived in ED. mr 11:10 Cl Gan, NICCI is Primary Nurse. bp 11:11 Lenard Rosario MD is Attending Physician. rambo 11:19 Triage completed. ph 11:20 Arm band placed on Patient placed in an exam room, on a stretcher. ph 11:40 Patient has correct armband on for positive identification. Bed in low position. Call bp light in reach. Adult w/ patient. 12:08 No provider procedures requiring assistance completed. Patient did not have IV access bp during this emergency room visit. Administered Medications: 12:00 Drug: [place] 10 mg-325 mg 1 tabs Route: PO; bp 12:08 Follow up: Response: Medication administered at discharge. bp Point of Care Testing: Blood Glucose: 12:00 Blood Glucose: 124 mg/dL; bp Ranges: Outcome: 11:53 Discharge ordered by . rambo 12:09 Discharged to home ambulatory, with family. bp 12:09 Condition: stable 12:09 Discharge instructions given to patient, Instructed on discharge instructions, follow up and referral plans. medication usage, Demonstrated understanding of instructions, follow-up care, medications, Prescriptions given X 2. 12:09 Patient left the ED. bp Signatures: Lenard Rosario MD MD cha Rivera, Mary mr Frida Leyva RN RN Cl Gan, RN RN bp
[2018-07-04] MEDS ORDERED: HYDROCODONE/APAP 10/325 TAB ONE (12:13)
[2018-07-04 12:19] VITALS: TEMP 98.3
[2018-07-04 12:20] VITALS: BP 144/66; O2SAT 99
== END 2018-07-04 12:09 | disposition home or self-care (01) ==
LOC: ER 11:07
DX: M79.605 Pain in left leg (principal); M79.604 Pain in right leg; G62.9 Polyneuropathy, unspecified; I10 Essential (primary) hypertension; I25.2 Old myocardial infarction; F17.290 Nicotine dependence, other tobacco product, uncomplicated
CPT/HCPCS: 82962; 99283

== ENCOUNTER 2018-07-10 10:12 | Emergency (ER) | payer SELFPAY ==
--- NOTE | 2018-07-10 11:18 | EDPHYS ---
Physician Documentation [facility] Name: Juan Miguel Langston Age: 52 yrs Sex: Male : 1965 Arrival Date: 07/10/2018 Time: 10:16 Bed 11 Private MD: ED Physician Donavon Kaufman HPI: 07/10 11:14 This 52 yrs old Male presents to ER via Ambulatory with complaints of gs unidentified knot below right elbow. 11:14 The complaints affect the palmar aspect of right forearm. Onset: The symptoms/episode gs began/occurred 3 day(s) ago. Modifying factors: The symptoms are alleviated by nothing. the symptoms are aggravated by nothing. Associated signs and symptoms: Pertinent negatives: erythema, fever, numbness, warmth, weakness. Severity of symptoms: At their worst the symptoms were mild, in the emergency department the symptoms are unchanged. The patient has not experienced similar symptoms in the past. Historical: - Allergies: 10:42 Metoprolol Tartrate; dm5 - Immunization history:: Adult Immunizations up to date. - Social history:: The patient lives at home, Smoking status: Patient/guardian denies using tobacco. - Ebola Screening: : Patient denies exposure to infectious person Patient denies travel to an Ebola-affected area in the 21 days before illness onset. ROS: 11:14 All other systems are negative. gs Exam: 11:14 ENT: Nares patent. No nasal discharge, no septal abnormalities noted. Tympanic gs membranes are normal and external auditory canals are clear. Oropharynx with no redness, swelling, or masses, exudates, or evidence of obstruction, uvula midline. Mucous membranes moist. Neck: Trachea midline, no thyromegaly or masses palpated, and no cervical lymphadenopathy. Supple, full range of motion without nuchal rigidity, or vertebral point tenderness. No Meningismus. Chest/axilla: Normal chest wall appearance and motion. Nontender with no deformity. No lesions are appreciated. Cardiovascular: Regular rate and rhythm with a normal S1 and S2. No gallops, murmurs, or rubs. Normal PMI, no JVD. No pulse deficits. Respiratory: Lungs have equal breath sounds bilaterally, clear to auscultation and percussion. No rales, rhonchi or wheezes noted. No increased work of breathing, no retractions or nasal flaring. Abdomen/GI: Soft, non-tender, with normal bowel sounds. No distension or tympany. No guarding or rebound. No evidence of tenderness throughout. Skin: Warm, dry with normal turgor. Normal color with no rashes, no lesions, and no evidence of cellulitis. Neuro: Awake and alert, GCS 15, oriented to person, place, time, and situation. Cranial nerves II-XII grossly intact. Motor strength 5/5 in all extremities. Sensory grossly intact. Cerebellar exam normal. Normal gait. 11:14 Constitutional: The patient appears alert, awake. 11:14 Musculoskeletal/extremity: ROM: intact in all extremities, Circulation is intact in all extremities. Sensation intact. 3x3cm mobile fleshy mass r proximal forearm cw lipoma. Vital Signs: 10:42 BP 159 / 80; Pulse 102; Resp 20; Temp 98.4; Pulse Ox 95% on R/A; Weight 103.42 kg (R); dm5 Height 5 ft. 6 in. (167.64 cm) (R); Pain 6/10; 10:42 Body Mass Index 36.80 (103.42 kg, 167.64 cm) dm5 MDM: 11:14 Patient medically screened. gs 11:14 Data reviewed: vital signs, nurses notes. Counseling: I had a detailed discussion with gs the patient and/or guardian regarding: the need for outpatient follow up, a general surgeon. Administered Medications: No medications were administered Disposition: 07/10/18 11:17 Discharged to Home. Impression: Neoplasm of uncertain behavior, unspecified. - Condition is Stable. - Discharge Instructions: Lipoma. - Medication Reconciliation Form, Thank You Letter, Antibiotic Education, Prescription Opioid Use form. - Follow up: Wild Morrow MD; When: 2 - 3 days; Reason: Re-evaluation by your physician. Signatures: Alina Galan RN RN dm5 Lilia Roche RN RN ss Donavon Kaufman MD MD Corrections: (The following items were deleted from the chart) 11:41 11:17 07/10/2018 11:17 Discharged to Home. Impression: Neoplasm of uncertain behavior, ss unspecified. Condition is Stable. Forms are Medication Reconciliation Form, Thank You Letter, Antibiotic Education, Prescription Opioid Use. Follow up: Wild Morrow; When: 2 - 3 days; Reason: Re-evaluation by your physician. gs
--- NOTE | 2018-07-10 11:18 | ER ---
Nurse's Notes [facility] Name: Juan Miguel Langston Age: 52 yrs Sex: Male : 1965 Arrival Date: 07/10/2018 Time: 10:16 Bed 11 Private MD: Diagnosis: Neoplasm of uncertain behavior, unspecified Presentation: 07/10 10:39 Presenting complaint: Patient states: knot popped up 4-5 days ago. it is soft and dm5 tender. pain 6/10. no reported injury. Transition of care: patient was not received from another setting of care. 10:39 Method Of Arrival: Ambulatory dm5 10:39 Acuity: DESTINY 4 dm5 11:00 Onset of symptoms was July 05, 2018. Risk Assessment: Do you want to hurt yourself or ss someone else? Patient reports no desire to harm self or others. Initial Sepsis Screen: Does the patient meet any 2 criteria? No. Patient's initial sepsis screen is negative. Does the patient have a suspected source of infection? No. Patient's initial sepsis screen is negative. Care prior to arrival: None. Triage Assessment: 10:42 General: Appears in no apparent distress. Behavior is calm, cooperative. Pain: dm5 Complains of pain in palmar aspect of right forearm Pain currently is 6 out of 10 on a pain scale. Historical: - Allergies: 10:42 Metoprolol Tartrate; dm5 - Immunization history:: Adult Immunizations up to date. - Social history:: The patient lives at home, Smoking status: Patient/guardian denies using tobacco. - Ebola Screening: : Patient denies exposure to infectious person Patient denies travel to an Ebola-affected area in the 21 days before illness onset. Screenin:00 Abuse screen: Denies threats or abuse. Denies injuries from another. Nutritional ss screening: No deficits noted. Tuberculosis screening: No symptoms or risk factors identified. Never had TB. Fall Risk None identified. Assessment: 11:00 General: Appears in no apparent distress. comfortable, Behavior is calm, cooperative, ss Denies fever, feeling ill, fatigue, chills. Pain: Complains of pain in palmar aspect of right forearm Pain currently is 6 out of 10 on a pain scale. Is continuous. Neuro: Level of Consciousness is awake, alert, obeys commands, Oriented to person, place, time, situation. Cardiovascular: Capillary refill < 3 seconds is brisk in bilateral fingers. Respiratory: Airway is patent Respiratory effort is even, unlabored, Respiratory pattern is regular. GI: Abdomen is round non-distended. EENT: Nares are clear Oral mucosa is moist. Derm: Skin is intact, Skin is dry, Skin is pink, warm \T\ dry. normal. Musculoskeletal: Circulation, motion, and sensation intact. Range of motion: intact in all extremities, Swelling absent. Vital Signs: 10:42 BP 159 / 80; Pulse 102; Resp 20; Temp 98.4; Pulse Ox 95% on R/A; Weight 103.42 kg (R); dm5 Height 5 ft. 6 in. (167.64 cm) (R); Pain 6/10; 10:42 Body Mass Index 36.80 (103.42 kg, 167.64 cm) dm5 ED Course: 10:16 Patient arrived in ED. sb2 10:41 Triage completed. dm5 10:42 Arm band placed on right wrist. dm5 11:00 Patient has correct armband on for positive identification. Bed in low position. Call ss light in reach. 11:04 Lilia Roche, NICCI is Primary Nurse. ss 11:10 Donavon Kaufman MD is Attending Physician. gs 11:16 Wild Morrow MD is Referral Physician. gs 11:41 No provider procedures requiring assistance completed. Patient did not have IV access ss during this emergency room visit. Administered Medications: No medications were administered Outcome: 11:17 Discharge ordered by . gs 11:41 Discharged to home ambulatory. ss 11:41 Condition: good 11:41 Discharge instructions given to patient, significant other, Instructed on discharge instructions, follow up and referral plans. Demonstrated understanding of instructions, follow-up care. 11:41 Patient left the ED. ss Signatures: Alina Galan RN RN dm Lilia Roche RN RN Donavon Kaufman MD MD Shu De La Rosa sb2
[2018-07-10 11:52] VITALS: BP 159/80; TEMP 98.4; O2SAT 95
== END 2018-07-10 11:41 | disposition home or self-care (01) ==
LOC: ER 10:12
DX: D48.7 Neoplasm of uncertain behavior of other specified sites (principal)
CPT/HCPCS: 99281

== ENCOUNTER 2018-07-22 11:51 | Observation (INO) | payer SELFPAY ==
--- OUTSIDE RECORDS SUMMARY | 2018-07-22 11:53 | XMS REPORT ---
:1965 [facility] Address [address] [place] [address] Dr. Fierro [address] [place] [id number] Care Team Providers Name Role Phone Unavailable Unavailable Unavailable Problems This patient has no known problems. Allergies, Adverse Reactions, Alerts This patient has no known allergies or adverse reactions. Medications This patient has no known medications.
[2018-07-22] MEDS ORDERED: ASPIRIN 81 MG CHEWABLE TABLET ONE (12:19)
[2018-07-22 12:28] LABS: Absolute Lymphocytes (CBC) 1.8 K/uL (0.7-4.9); Absolute Monocytes 0.5 K/uL (0.1-1.3); Absolute Neutrophil 4.4 K/uL (1.8-8.0); Basophils % 1.1 % (0-1.3); Eosinophils % 4.1 % (0-4.4); Hematocrit 49.1 % (39.6-49.0); Lymphocytes % 25.9 % (15.3-44.8); MPV 9.3 fL (7.6-11.3); Monocytes % 7.6 % (3.3-12.3); RBC Red Blood Cell Count 5.47 M/uL (4.33-5.43)
[2018-07-22] MEDS ORDERED: NITROGLYCERIN 0.4 MG/TAB SL ONE (12:34)
--- NOTE | 2018-07-22 12:34 | RAD REPORT ---
EXAM DESCRIPTION: Jayda Single View07/22/2018 12:25 pm CLINICAL HISTORY: Chest pain COMPARISON: April 2018 FINDINGS: The lungs appear clear of acute infiltrate. The heart is normal size IMPRESSION: No acute abnormalities displayed
[2018-07-22 12:47] LABS: ALT/SGPT 65 U/L (12-78); AST/SGOT 22 U/L (15-37); Albumin 3.6 g/dL (3.4-5.0); Alkaline Phosphatase 49 U/L (45-117); BUN Blood Urea Nitrogen 14 mg/dL (7-18); Bicarbonate 27 mmol/L (21-32); Bilirubin Direct < 0.1 mg/dL (0-0.2); Bilirubin Total 0.2 mg/dL (0.2-1.0); Glucose Level 111 mg/dL (74-106); Magnesium 1.8 mg/dL (1.8-2.4); NT PRO-BNP 12 pg/mL (<125); Potassium 3.9 mmol/L (3.5-5.1); Protime INR 1.03; Sodium Level 139 mmol/L (136-145); Troponin (Emerg Dept Use Only) < 0.02 ng/mL (0.0-0.045)
[2018-07-22] MEDS ORDERED: NA CHLORIDE 0.9% 500 ML ONE (13:36)
--- NOTE | 2018-07-22 13:51 | EDPHYS ---
Physician Documentation [facility] Name: Juan Miguel Langston Age: 52 yrs Sex: Male : 1965 Arrival Date: 07/22/2018 Time: 11:57 Bed 6 Private MD: ED Physician Lenard Rosario HPI: 07/22 12:10 This 52 yrs old Male presents to ER via EMS with complaints of Chest Pain. cp 12:10 The patient or guardian reports chest pain that is located primarily in the anterior cp chest wall. 12:10 Onset: today, at 11:00. The pain does not radiate. Associated signs and symptoms: cp Pertinent negatives: abdominal pain, diaphoresis, dizziness, lower extremity pain, lower extremity swelling, recent travel, shortness of breath. 12:10 The chest pain is described as sharp. cp 12:10 Duration: The patient or guardian reports a single episode, that is still ongoing, and cp unchanged. The patient has experienced similar episodes in the past, multiple times. Historical: - Allergies: 12:04 Metoprolol Tartrate; ca1 - PMHx: 12:04 Angina; Hypertension; High Cholesterol; Myocardial infarction; ca1 - PSHx: 12:04 None; ca1 - Immunization history:: Flu vaccine is up to date. - Social history:: Smoking status: Patient uses tobacco products, smokes one-half pack cigarettes per day. - Ebola Screening: : Patient negative for fever greater than or equal to 101.5 degrees Fahrenheit, and additional compatible Ebola Virus Disease symptoms Patient denies exposure to infectious person Patient denies travel to an Ebola-affected area in the 21 days before illness onset No symptoms or risks identified at this time. ROS: 12:15 Constitutional: Negative for body aches, chills, fever, poor PO intake. cp 12:15 Eyes: Negative for injury, pain, redness, and discharge. cp 12:15 ENT: Negative for drainage from ear(s), ear pain, sore throat, difficulty swallowing, difficulty handling secretions. 12:15 Neck: Negative for pain with movement, pain at rest, stiffness. 12:15 Cardiovascular: Positive for chest pain, Negative for edema, palpitations. 12:15 Respiratory: Negative for cough, shortness of breath, wheezing. 12:15 Abdomen/GI: Negative for abdominal pain, nausea, vomiting, and diarrhea, black/tarry stool, rectal bleeding. 12:15 Skin: Negative for cellulitis, rash. 12:15 Neuro: Negative for altered mental status, dizziness, headache, weakness. 12:15 All other systems are negative. Exam: 12:05 ECG was reviewed by the Attending Physician. cp 12:20 Constitutional: The patient appears in no acute distress, alert, awake, cp non-diaphoretic, non-toxic, well developed, well nourished. 12:20 Head/Face: Normocephalic, atraumatic. Eyes: Pupils equal round and reactive to light, cp extra-ocular motions intact. Lids and lashes normal. Conjunctiva and sclera are non-icteric and not injected. Cornea within normal limits. Periorbital areas with no swelling, redness, or edema. ENT: Nares patent. No nasal discharge, no septal abnormalities noted. Tympanic membranes are normal and external auditory canals are clear. Oropharynx with no redness, swelling, or masses, exudates, or evidence of obstruction, uvula midline. Mucous membranes moist. Neck: Trachea midline, no thyromegaly or masses palpated, and no cervical lymphadenopathy. Supple, full range of motion without nuchal rigidity, or vertebral point tenderness. No Meningismus. Chest/axilla: Normal chest wall appearance and motion. Nontender with no deformity. No lesions are appreciated. 12:20 Cardiovascular: Rate: tachycardic, Rhythm: regular, Heart sounds: murmur, not appreciated, rub, not appreciated, gallop, not appreciated, Edema: is not appreciated, JVD: is not appreciated. 12:20 Respiratory: the patient does not display signs of respiratory distress, Respirations: normal, no use of accessory muscles, no retractions, no splinting, no tachypnea, labored breathing, is not present, Breath sounds: are clear throughout, no decreased breath sounds, no stridor, no wheezing. 12:20 Abdomen/GI: Inspection: abdomen appears normal, Bowel sounds: active, all quadrants, Palpation: abdomen is soft and non-tender, in all quadrants, rebound tenderness, is not appreciated, voluntary guarding, is not appreciated, involuntary guarding, is not appreciated. 12:20 Back: pain, is absent, ROM is normal. 12:20 Skin: cellulitis, is not appreciated, no rash present. 12:20 Neuro: Orientation: to person, place \T\ time. Mentation: is normal, Cerebellar function: is grossly normal, Motor: moves all fours, strength is normal, Sensation: is normal. Vital Signs: 12:04 BP 146 / 92; Pulse 105; Resp 19; Temp 98.5; Pulse Ox 99% on R/A; Weight 103.42 kg; ca1 Height 5 ft. 6 in. (167.64 cm); Pain 8/10; 13:05 BP 116 / 89; Pulse 110; Resp 19; Pulse Ox 100% on R/A; Pain 6/10; ca1 14:15 BP 128 / 79; Pulse 91; Resp 18; Pulse Ox 98% on R/A; bp 15:10 BP 135 / 77; Pulse 93; Resp 18; Pulse Ox 98% on R/A; bp 16:00 BP 132 / 75; Pulse 92; Resp 18; Pulse Ox 100% on R/A; ca1 12:04 Body Mass Index 36.80 (103.42 kg, 167.64 cm) ca1 MDM: 11:57 Patient medically screened. cp 12:30 Differential diagnosis: abnormal EKG, acute myocardial infarction, acute pericarditis, cp anxiety, chest wall pain, costochondritis, esophagitis, gastritis, pulmonary embolus, stable angina, thoracic aortic disection, unstable angina. 13:34 Physician consultation: Steve Bowden DO was called at 13:34, was contacted at 13:34, cp regarding admission, to the telemetry unit. patient's condition, and will see patient in ED, shortly. 13:35 The patient was given aspirin in the Emergency Department. cp 13:35 Data reviewed: vital signs, nurses notes, lab test result(s), EKG, radiologic studies, cp plain films. Test interpretation: by ED physician or midlevel provider: ECG, plain radiologic studies. Response to treatment: the patient's symptoms have markedly improved after treatment. 07/22 11:58 Order name: Basic Metabolic Panel cp 07/22 11:58 Order name: CBC with Diff cp 07/22 11:58 Order name: LFT's cp 07/22 11:58 Order name: Magnesium cp 07/22 11:58 Order name: NT PRO-BNP cp 07/22 11:58 Order name: PT-INR cp 07/22 11:58 Order name: Troponin (emerg Dept Use Only) cp 07/22 12:43 Order name: CBC with Automated Diff; Complete Time: 12:55 EDMS 07/22 12:48 Order name: Basic Metabolic Panel; Complete Time: 12:55 EDMS 07/22 12:48 Order name: Liver (Hepatic) Function; Complete Time: 12:55 EDMS 07/22 12:48 Order name: Troponin (Emerg Dept Use Only); Complete Time: 12:55 EDMS 07/22 12:48 Order name: NT PRO-BNP; Complete Time: 12:55 EDMS 07/22 12:48 Order name: Magnesium; Complete Time: 12:55 EDMS 07/22 12:48 Order name: Protime (+INR); Complete Time: 12:55 EDMS 07/22 11:58 Order name: XRAY Chest (1 view) 07/22 11:58 Order name: EKG; Complete Time: 11:59 07/22 11:58 Order name: Cardiac monitoring; Complete Time: 12:02 07/22 11:58 Order name: EKG - Nurse/Tech; Complete Time: 12:02 07/22 11:58 Order name: IV Saline Lock; Complete Time: 12:19 07/22 11:58 Order name: Labs collected and sent; Complete Time: 12:19 07/22 11:58 Order name: O2 Per Protocol; Complete Time: 12:03 07/22 11:58 Order name: O2 Sat Monitoring; Complete Time: 12:03 07/22 12:35 Order name: RAD; Complete Time: 12:55 EDMS EC:05 Rate is 99 beats/min. Rhythm is regular. NM interval is normal. QRS interval is cp prolonged at 102 msec. QT interval is normal. Clinical impression: Abnormal EKG without significant change. Interpreted by me. Reviewed by me. Administered Medications: 12:11 Drug: Aspirin Chewable Tablet 162 mg Route: PO; ca1 13:23 Follow up: Response: No adverse reaction; Pain is decreased ca1 12:20 Drug: Nitroglycerin 0.4 mg Route: Sublingual; ca1 13:24 Follow up: Response: No adverse reaction; Pain is decreased ca1 13:25 Drug: NS 0.9% 500 ml Route: IV; Rate: bolus; Site: right antecubital; ca1 14:00 Follow up: Response: No adverse reaction; IV Status: Completed infusion ca1 Disposition: 07/22/18 13:50 Hospitalization ordered by Steve Bowden for Observation. Preliminary diagnosis is Angina pectoris, unspecified. - Bed requested for Telemetry/MedSurg (observation). - Status is Observation. ca1 - Condition is Stable. - Problem is new. - Symptoms have improved. UTI on Admission? No Addendum: 07/24/2018 07:45 Co-signature as Attending Physician, Lenard Rosario MD I agree with the assessment and c boyle plan of care. Signatures: Dispatcher [employer] EDWY Lenard Rosario MD MD cha Page, Corey, PA PA Lilian Wallace, Khadijah RN RN ca1 Corrections: (The following items were deleted from the chart) 07/22 13:08 12:04 Social history: Smoking status: Patient uses tobacco products, smokes one pack ca1 cigarettes per day. ca1 15:07 13:50 Hospitalization Ordered by Steve Bowden DO for Observation. Preliminary eb diagnosis is Angina pectoris, unspecified. Bed requested for Telemetry/MedSurg (observation). Status is Observation. Condition is Stable. Problem is new. Symptoms have improved. UTI on Admission? No. cp 16:12 15:07 07/22/2018 13:50 Hospitalization Ordered by Steve Bowden DO for Observation. ca1 Preliminary diagnosis is Angina pectoris, unspecified. Bed requested for Telemetry/MedSurg (observation). Status is Observation. Condition is Stable. Problem is new. Symptoms have improved. UTI on Admission? No. eb
--- NOTE | 2018-07-22 13:51 | ER ---
Nurse's Notes [facility] Name: Juan Miguel Langston Age: 52 yrs Sex: Male : 1965 Arrival Date: 07/22/2018 Time: 11:57 Bed 6 Private MD: Diagnosis: Angina pectoris, unspecified Presentation: 07/22 12:00 Presenting complaint: EMS states: patient is experiencing chest pain since 1100H today. ca1 Patient self-medicated with 2 tabs of Nitro which afforded no relief. Presenting complaint:. Transition of care: patient was not received from another setting of care. Onset of symptoms was July 22, 2018 at 11:00. Risk Assessment: Do you want to hurt yourself or someone else? Patient reports no desire to harm self or others. Initial Sepsis Screen: Does the patient meet any 2 criteria? No. Patient's initial sepsis screen is negative. Does the patient have a suspected source of infection? No. Patient's initial sepsis screen is negative. Care prior to arrival: Medication(s) given: ASA, 81 mg, x 4, IV initiated. 18 GA, in the right antecubital area, Glucose check: 110. 12:00 Method Of Arrival: EMS: [facility] ca1 12:00 Acuity: DESTINY 3 ca1 Triage Assessment: 12:04 General: Appears in no apparent distress. unkempt, Behavior is calm, cooperative, ca1 appropriate for age. Pain: Complains of pain in mid-sternal area Pain radiates to left arm Pain currently is 8 out of 10 on a pain scale. Quality of pain is described as sharp, Pain began 1 hour ago. Cardiovascular: Heart tones S1 S2 present Capillary refill < 3 seconds Patient's skin is warm and dry. Rhythm is sinus tachycardia. Historical: - Allergies: 12:04 Metoprolol Tartrate; ca1 - PMHx: 12:04 Angina; Hypertension; High Cholesterol; Myocardial infarction; ca1 - PSHx: 12:04 None; ca1 - Immunization history:: Flu vaccine is up to date. - Social history:: Smoking status: Patient uses tobacco products, smokes one-half pack cigarettes per day. - Ebola Screening: : Patient negative for fever greater than or equal to 101.5 degrees Fahrenheit, and additional compatible Ebola Virus Disease symptoms Patient denies exposure to infectious person Patient denies travel to an Ebola-affected area in the 21 days before illness onset No symptoms or risks identified at this time. Screenin:05 Abuse screen: Denies threats or abuse. Denies injuries from another. Nutritional ca1 screening: No deficits noted. Tuberculosis screening: No symptoms or risk factors identified. Fall Risk None identified. Assessment: 12:05 General: Appears in no apparent distress. unkempt, Behavior is calm, cooperative, ca1 appropriate for age. Pain: Complains of pain in chest and mid-sternal area Pain radiates to left arm Pain currently is 8 out of 10 on a pain scale. Quality of pain is described as sharp, Pain began 1100H. Neuro: Level of Consciousness is awake, alert, obeys commands, Oriented to person, place, time, situation, Appropriate for age. Cardiovascular: Heart tones S1 S2 present Capillary refill < 3 seconds Patient's skin is warm and dry. Respiratory: Airway is patent Respiratory effort is even, unlabored, Respiratory pattern is regular, symmetrical, Breath sounds are clear bilaterally. GI: Abdomen is round non-distended, Bowel sounds present X 4 quads. Abd is soft and non tender X 4 quads. : No signs and/or symptoms were reported regarding the genitourinary system. EENT: No signs and/or symptoms were reported regarding the EENT system. Derm: Skin is intact, Skin is pink, warm \T\ dry. Musculoskeletal: Circulation, motion, and sensation intact. Capillary refill < 3 seconds. 13:05 Reassessment: Patient appears in no apparent distress at this time. Patient and/or ca1 family updated on plan of care and expected duration. Pain level reassessed. Patient is alert, oriented x 3, equal unlabored respirations, skin warm/dry/pink. 14:15 Reassessment: Patient appears in no apparent distress at this time. Patient is alert, bp oriented x 3, equal unlabored respirations, skin warm/dry/pink. Awaiting room assignment. Vital Signs: 12:04 BP 146 / 92; Pulse 105; Resp 19; Temp 98.5; Pulse Ox 99% on R/A; Weight 103.42 kg; ca1 Height 5 ft. 6 in. (167.64 cm); Pain 8/10; 13:05 BP 116 / 89; Pulse 110; Resp 19; Pulse Ox 100% on R/A; Pain 6/10; ca1 14:15 BP 128 / 79; Pulse 91; Resp 18; Pulse Ox 98% on R/A; bp 15:10 BP 135 / 77; Pulse 93; Resp 18; Pulse Ox 98% on R/A; bp 16:00 BP 132 / 75; Pulse 92; Resp 18; Pulse Ox 100% on R/A; ca1 12:04 Body Mass Index 36.80 (103.42 kg, 167.64 cm) ca1 ED Course: 11:57 Patient arrived in ED. bp 11:57 Lenard Gray PA is PHCP. cp 11:57 Lenard Rosario MD is Attending Physician. cp 11:59 Khadijah Miranda RN is Primary Nurse. ca1 12:02 EKG done, by ED staff, reviewed by Lenard CHUN. jb1 12:04 Triage completed. ca1 12:04 Arm band placed on right wrist. ca1 12:05 Maintain EMS IV. Dressing intact. Good blood return noted. Site clean \T\ dry. Gauge \T\ ca 1 site: g18 at [facility].. IV is patent, is intact. Patient maintains SpO2 saturation greater than 95% on room air. 12:05 Patient has correct armband on for positive identification. Placed in gown. Bed in low ca1 position. Call light in reach. Side rails up X 1. clinical research monitor on. Pulse ox on. NIBP on. Warm blanket given. 13:49 Steve Bowden DO is Hospitalizing Provider. cp 15:53 No provider procedures requiring assistance completed. Patient admitted, IV remains in ca1 place. Administered Medications: 12:11 Drug: Aspirin Chewable Tablet 162 mg Route: PO; ca1 13:23 Follow up: Response: No adverse reaction; Pain is decreased ca1 12:20 Drug: Nitroglycerin 0.4 mg Route: Sublingual; ca1 13:24 Follow up: Response: No adverse reaction; Pain is decreased ca1 13:25 Drug: NS 0.9% 500 ml Route: IV; Rate: bolus; Site: right antecubital; ca1 14:00 Follow up: Response: No adverse reaction; IV Status: Completed infusion ca1 Outcome: 13:50 Decision to Hospitalize by Provider. cp 15:53 Admitted to Tele accompanied by tech, family with patient, via wheelchair, room 428, ca1 with chart, Report called to Bria Jaime RN 15:53 Condition: stable 15:53 Instructed on the need for admit, Demonstrated understanding of instructions. 16:12 Patient left the ED. ca1 Signatures: Addison Kim jb1 Lenard Gray PA PA cp Peltier, Brian, RN RN bp Khdaijah Miranda RN RN ca1 Corrections: (The following items were deleted from the chart) 13:08 12:04 Social history: Smoking status: Patient uses tobacco products, smokes one pack ca1 cigarettes per day. ca1
--- NOTE | 2018-07-22 13:55 | P.HP ---
Certification for Inpatient Patient admitted to: Observation With expected LOS: <2 Midnights Patient will require the following post-hospital care: None Practitioner: I am a practitioner with admitting privileges, knowledge of patient current condition, hospital course, and medical plan of care. Services: Services provided to patient in accordance with Admission requirements found in Title 42 Section 412.3 of the Code of Federal Regulations Patient History Date of Service: 07/22/18 Primary Care Provider: None Reason for admission: Chest pain History of Present Illness: 52-year-old male presented to the emergency room with chest pain. Patient with history of hypertension, hyperlipidemia, CAD, tobacco abuse and noncompliance with follow-up. Patient reported chest pain today. He had been seen at [facility] ER for bronchitis. He was not able to afford his medication that was recommended. He further reports that he has not been utilizing all of his medications. He only reports taking his lisinopril. Other medications include Imdur, aspirin, lovastatin and inhalers. He was evaluated in the emergency room. Pain resolved. In the ER vital signs stable. Initial cardiac enzymes unremarkable. EKG shows no significant EKG changes. Patient was admitted for observation. When I saw the patient the ER, he appeared stable. Allergies Beta-Blockers (Beta-Adrenergic Bloc Adverse Reaction (Verified 10/09/17 11:30) Anaphylaxis metoprolol Adverse Reaction (Verified 10/10/17 06:56) Anaphylaxis No Known Allergies Allergy (Uncoded 10/10/17 20:05) Unknown Home medications list reviewed: Yes Home Medications: Lovastatin 40 mg PO DAILY #30 tablet 11/25/17 Nitroglycerin [Nitrostat*] 0.4 mg SL UD PRN #30 tab 11/25/17 Isosorbide Mononitrate [Isosorbide Mononitrate ER] 30 mg PO DAILY 02/08/18 Albuterol Sulfate [Proair Hfa] 8.5 gm IH TID PRN #1 hfa.aer.ad 02/09/18 Aspirin [Aspirin EC 81 MG] 81 mg PO DAILY #30 tablet. 02/09/18 Lisinopril [Prinivil*] 20 mg PO DAILY #30 tab 02/09/18 Pantoprazole [Protonix Tab*] 40 mg PO DAILYAC #30 tab 02/09/18 predniSONE [Deltasone] 60 mg PO DAILY #14 tab 04/16/18 - Past Medical/Surgical History Diabetic: No -: Angina -: HTN -: Hyperlipidemia -: Tobacco abuse -: CAD -: COPD -: GERD -: Noncompliance with medication and follow up -: CARDIAC CATH 12/2013 NO STENTS 30% BLOCKAGE PER PT -: Cardiac stress tests October 2017 showed no stress-induced ischemia Psychosocial/ Personal History: Patient is single. Patient is homeless. - Family History Family History: Reviewed- Non-Contributory - Family History MOM -: Heart disease, Other (see notes) Notes: MASSIVE MT 61YR and arthritis DAD -: Heart disease, Other (see notes) Notes: POOR CIRCULATION TO LEGS PER PT - Social History Smoking Status: Heavy Tobacco smoker (>10 cigarettes/day) Counseled patient to stop smoking for: less than 10 minutes Smoking therapy provided: Yes Patient receptive to therapy: Yes Alcohol use: Yes CD- Drugs: No Caffeine use: Yes Place of Residence: [facility] Review of Systems General: As per HPI Eyes: Unremarkable ENT: Unremarkable Respiratory: Cough, As per HPI Cardiovascular: Chest Pain, As per HPI Gastrointestinal: Unremarkable Genitourinary: Unremarkable Musculoskeletal: Unremarkable Integumentary: Unremarkable Neurological: Unremarkable Lymphatics: Unremarkable Physical Examination - Physical Exam General: Alert, In no apparent distress, Oriented x3, Cooperative HEENT: Atraumatic, Normocephalic, PERRLA, Mucous membr. moist/pink Neck: Supple, No Thyromegaly Respiratory: Expiratory wheezes (Mild wheezing bilateral) Cardiovascular: Normal pulses, Regular rate/rhythm Gastrointestinal: Normal bowel sounds, Soft and benign, Non-distended, No tenderness, No masses, No rebound, No guarding Musculoskeletal: No erythema, No tenderness, No warmth Integumentary: No tenderness/swelling, No erythema, No warmth, No cyanosis Neurological: Normal speech, Normal strength at 5/5 x4 extr, Normal tone, Normal affect - Studies Laboratory Data (last 24 hrs) 07/22/18 12:13: PT 12.1, INR 1.03 07/22/18 12:13: WBC 7.1, Hgb 16.5, Hct 49.1 H, Plt Count 285 07/22/18 12:13: Sodium 139, Potassium 3.9, BUN 14, Creatinine 0.86, Glucose 111 H, Magnesium 1.8, Total Bilirubin 0.2, AST 22, ALT 65, Alkaline Phosphatase 49 Assessment and Plan - Plan Impression: Chest pain with history of angina and CAD COPD exacerbation, mild Hypertension Hyperlipidemia Tobacco abuse Poor compliance with follow up and medication Plan: Chest pain with history of angina and CAD: Patient will be admitted for observation. Will continue with medication including aspirin, Imdur and statin medication. Will restart home medications. Will treat his COPD. Anticipate discharge in the next 24 hr. Will monitor cardiac enzymes and telemetry. COPD exacerbation, mild: Will start low-dose prednisone. Will continue with COPD medication. Hypertension: Continue with lisinopril. Will monitor and adjust appropriately. Hyperlipidemia: Continue with statin medication. Tobacco abuse: Will provide nicotine patch if needed. Tobacco cessation addressed in detail. Poor compliance with follow up and medication: Compliance addressed in detail. Discharge Plan: Home Plan to discharge in: 24 Hours - Advance Directives Does patient have a Living Will: No Does patient have a Durable POA for Healthcare: No - Code Status/Comfort Care Code Status Assessed: Yes (Patient full code.) Time Spent Managing Pts Care (In Minutes): 55
[2018-07-22] MEDS ORDERED: ALBUTEROL 2.5 MG/3 ML NEB SOL NEB PRN (16:09)
[2018-07-22] MEDS ORDERED: BENZONATATE 100 MG CAP PO PRN (16:09)
[2018-07-22] MEDS ORDERED: NITROGLYCERIN 0.4 MG/TAB SL PRN (16:09)
[2018-07-22] MEDS ORDERED: IPRATROPIUM BROM 0.5MG/2.5ML NEB PRN (16:09)
[2018-07-22] MEDS ORDERED: ONDANSETRON 4 MG/2 ML VIAL IV PRN (16:09)
[2018-07-22] MEDS ORDERED: ACETAMINOPHEN 500 MG TAB PO PRN (16:09)
[2018-07-22 16:27] VITALS: BMI 36.8
[2018-07-22] MEDS ORDERED: ENOXAPARIN 40 MG/0.4 ML SQ SCH (17:00)
[2018-07-22] MEDS ORDERED: POTASSIUM CL SA 10 MEQ TAB PO ONE (17:03)
[2018-07-22] MEDS ORDERED: MAGNESIUM SULFATE 1 gm IVPB 1 GM/100 ML BAG IV ONE (17:04)
[2018-07-22 18:04] LABS: Urine Appearance CLEAR; Urine Bilirubin NEGATIVE (NEG); Urine Blood NEGATIVE (NEG); Urine Color YELLOW; Urine Glucose NEGATIVE (NEG); Urine Protein NEGATIVE (NEG); Urine Specific Gravity 1.015 (1.005-1.030); Urine Urobilinogen 0.2 mg/dL (0.2-1.0); Urine pH 6.5 (5.0-7.0)
[2018-07-22 18:15] LABS: Urine Microscopic Reflex NO UMIC
[2018-07-22] MEDS: ARFORMOTEROL TARTRATE 15 MCG/2 ML VIAL.NEB NEB SCH (19:42)
[2018-07-22] MEDS: predniSONE 10 MG TAB PO SCH (20:26)
[2018-07-22] MEDS: GUAIFENESIN 600 MG SA TAB PO SCH (20:26)
[2018-07-22 20:41] LABS: CKMB Creatine Kinase MB 3.3 ng/mL (0.3-3.6); Creatine Phosphokinase 180 U/L (39-308); Troponin I < 0.02 ng/mL (0.0-0.045)
[2018-07-22] MEDS ORDERED: ATORVASTATIN 20 MG TAB PO SCH (21:00)
[2018-07-23 01:40] LABS: CKMB Creatine Kinase MB 3.4 ng/mL (0.3-3.6); Creatine Phosphokinase 189 U/L (39-308); Troponin I < 0.02 ng/mL (0.0-0.045)
[2018-07-23 05:39] LABS: Absolute Lymphocytes (CBC) 1.6 K/uL (0.7-4.9); Absolute Monocytes 0.6 K/uL (0.1-1.3); Absolute Neutrophil 4.6 K/uL (1.8-8.0); Basophils % 0.5 % (0-1.3); Hematocrit 51.4 % (39.6-49.0); Lymphocytes % 22.4 % (15.3-44.8); MPV 9.6 fL (7.6-11.3); Monocytes % 8.6 % (3.3-12.3); RBC Red Blood Cell Count 5.65 M/uL (4.33-5.43)
[2018-07-23 05:51] LABS: Magnesium 2.2 mg/dL (1.8-2.4); Potassium 5.5 mmol/L (3.5-5.1)
[2018-07-23] MEDS ORDERED: PANTOPRAZOLE 40MG TABLET PO SCH (06:30)
[2018-07-23] MEDS: ARFORMOTEROL TARTRATE 15 MCG/2 ML VIAL.NEB NEB SCH (08:00)
--- NOTE | 2018-07-23 08:16 | P.PN ---
Date of Service: 07/23/18 Subjective: Patient had 2 long episodes of sinus pause. According to the patient and his this is been going on for quite a while. He has multiple episodes of apnea. He apparently had 1 episode were she stated that he stop breathing for 7 mins. I asked her again about this and she said he probably took a few breaths in between. Objective: Physical Examination Vitals: Afebrile vital signs are stable Physical exam: Cardiovascular: Regular rate rhythm no murmurs Lungs: Wheezing in upper airway congestion Diagnostic data has been reviewed ASST: 1. Obesity hypoventilation syndrome 2. Sinus pause PLAN: 1. Continue to monitor on telemetry 2. Consult Cardiology 3. Outpatient sleep study and CPAP machine
[2018-07-23] MEDS ORDERED: LISINOPRIL 20 MG TAB PO SCH (09:00)
[2018-07-23] MEDS ORDERED: ASPIRIN EC 81 MG TAB PO SCH (09:00)
[2018-07-23] MEDS ORDERED: ISOSORBIDE MONO SR 30 MG TAB PO SCH (09:00)
[2018-07-23] MEDS: GUAIFENESIN 600 MG SA TAB PO SCH (09:01)
[2018-07-23] MEDS: predniSONE 10 MG TAB PO SCH (09:02)
--- NOTE | 2018-07-23 10:12 | P.DS ---
Admission Date: 07/22/18 Discharge Date: 07/23/18 Primary Care Provider: None Disposition: ROUTINE DISCHARGE Discharge Condition: GOOD Reason for Admission: Chest pain Consultations: none Procedures: CXR: COMPARISON: April 2018 FINDINGS: The lungs appear clear of acute infiltrate. The heart is normal size IMPRESSION: No acute abnormalities displayed Medical Problem List: Chest pain with history of angina and CAD COPD exacerbation, mild Hypertension Hyperlipidemia Tobacco abuse Asymptomatic sinus pause resolved likely underlying obstructive sleep apnea Poor compliance with follow up and medication Brief History of Present Illness: 52-year-old male presented to the emergency room with chest pain. Patient with history of hypertension, hyperlipidemia, CAD, tobacco abuse and noncompliance with follow-up. Patient reported chest pain today. He had been seen at [facility] ER for bronchitis. He was not able to afford his medication that was recommended. He further reports that he has not been utilizing all of his medications. He only reports taking his lisinopril. Other medications include Imdur, aspirin, lovastatin and inhalers. He was evaluated in the emergency room. Pain resolved. In the ER vital signs stable. Initial cardiac enzymes unremarkable. EKG shows no significant EKG changes. Patient was admitted for observation. When I saw the patient the ER, he appeared stable. Hospital Course: Patient presented with chest pain. Patient was monitored. No significant EKG changes noted. Cardiac enzymes unremarkable. Patient non compliant with medication and follow up. Compliance addressed in detail. Patient with history of CAD and angina. At discharge patient will continue with aspirin 81 mg daily and nitroglycerin to be use as needed for chest pain. Patient may follow up with cardiology as an outpatient to further evaluate. Patient recently seen at another ER facility for COPD exacerbation. Patient was given COPD medication. Patient non compliant with his medication. Compliance addressed in detail. At discharge she will continue with prednisone 10 mg 1 pill twice daily for 5 days then 1 pill once daily for 5 days. Patient will continue with Dulera 200 mg 2 puffs twice daily and Pro air 2 puffs 3 times a day as needed for shortness of breath. Patient follow up with pulmonology as an outpatient to further monitor and address. Patient had asymptomatic sinus pause. This occurred at night. This is likely related to underlying obstructive sleep apnea. Recommendation is for the patient to have a sleep study done as an outpatient to further evaluate. Patient will likely require CPAP. This can be further addressed by pulmonology. Patient has hypertension. Blood pressure was elevated upon admission. He reports blood pressures being elevated at home. Medication adjusted. At discharge she will continue with lisinopril 20 mg 1 pill twice daily. Recommendation is to maintain blood pressures less 150/80. Further adjustment can be done by his PCP. Patient has hyperlipidemia. Patient will continue with Lipitor 20 mg daily. Tobacco cessation addressed in detail. Education provided. Vital Signs/Physical Exam: Temp Pulse Resp BP Pulse Ox 98.6 F 98 H 20 150/63 H 98 07/23/18 08:00 07/23/18 09:01 07/23/18 08:00 07/23/18 09:01 07/23/18 08:00 General: Alert, In no apparent distress, Oriented x3, Cooperative HEENT: Atraumatic, Mucous membr. moist/pink Neck: Supple, No Thyromegaly Respiratory: Clear to auscultation bilaterally, Normal air movement Cardiovascular: Normal pulses, Regular rate/rhythm Gastrointestinal: Normal bowel sounds, Soft and benign, Non-distended, No tenderness, No masses, No rebound, No guarding Musculoskeletal: No erythema, No tenderness, No warmth Integumentary: No tenderness/swelling, No erythema, No warmth, No cyanosis Neurological: Normal speech, Normal strength at 5/5 x4 extr, Normal tone, Normal affect Laboratory Data at Discharge: WBC 6.9 K/uL (4.3-10.9) 07/23/18 04:28 Hgb 17.0 g/dL (13.6-17.9) 07/23/18 04:28 Hct 51.4 % (39.6-49.0) H 07/23/18 04:28 Plt Count 312 K/uL (152-406) 07/23/18 04:28 PT 12.1 SECONDS (9.5-12.5) 07/22/18 12:13 INR 1.03 07/22/18 12:13 Sodium 139 mmol/L (136-145) 07/23/18 04:28 Potassium 4.1 mmol/L (3.5-5.1) 07/23/18 09:48 BUN 15 mg/dL (7-18) 07/23/18 04:28 Creatinine 0.92 mg/dL (0.55-1.3) 07/23/18 04:28 Glucose 119 mg/dL (74-106) H 07/23/18 04:28 Magnesium 2.2 mg/dL (1.8-2.4) 07/23/18 04:28 Total Bilirubin 0.2 mg/dL (0.2-1.0) 07/22/18 12:13 AST 22 U/L (15-37) 07/22/18 12:13 ALT 65 U/L (12-78) 07/22/18 12:13 Alkaline Phosphatase 49 U/L (45-117) 07/22/18 12:13 Troponin I < 0.02 ng/mL (0.0-0.045) 07/23/18 00:50 Home Medications: Aspirin [Aspirin EC 81 MG] 81 mg PO DAILY #30 tablet.dr 02/09/18 Albuterol Sulfate [Proair Respiclick] 2 puff IH TID PRN #1 aer.pow.ba 07/23/18 Atorvastatin Calcium [Lipitor*] 20 mg PO BEDTIME #30 tab 07/23/18 Lisinopril [Prinivil*] 20 mg PO BID #60 tab 07/23/18 Mometasone/Formoterol [Dulera 200 Mcg/5 Mcg Inhaler] 2 puff IH BID #1 inhaler Nitroglycerin [Nitrostat*] 0.4 mg SL UD PRN #30 tab 07/23/18 predniSONE [Deltasone*] 10 mg PO SEECOM #15 tab 07/23/18 New Medications: Albuterol Sulfate [Proair Respiclick] 2 puff IH TID PRN #1 aer.pow.ba PRN Reason: Shortness Of Breath Atorvastatin Calcium [Lipitor*] 20 mg PO BEDTIME #30 tab Lisinopril [Prinivil*] 20 mg PO BID #60 tab Mometasone/Formoterol [Dulera 200 Mcg/5 Mcg Inhaler] 2 puff IH BID #1 inhaler Nitroglycerin [Nitrostat*] 0.4 mg SL UD PRN #30 tab PRN Reason: Chest Pain predniSONE [Deltasone*] 10 mg PO SEECOM #15 tab Patient Discharge Instructions: 1. Patient will follow up with his PCP in 1 week to follow up this hospitalization. 2. Patient presented with chest pain. Patient was monitored. No significant EKG changes noted. Cardiac enzymes unremarkable. Patient non compliant with medication and follow up. Compliance addressed in detail. Patient with history of CAD and angina. At discharge patient will continue with aspirin 81 mg daily and nitroglycerin to be use as needed for chest pain. Patient may follow up with cardiology as an outpatient to further evaluate. 3. Patient recently seen at another ER facility for COPD exacerbation. Patient was given COPD medication. Patient non compliant with his medication. Compliance addressed in detail. At discharge she will continue with prednisone 10 mg 1 pill twice daily for 5 days then 1 pill once daily for 5 days. Patient will continue with Dulera 200 mg 2 puffs twice daily and Pro air 2 puffs 3 times a day as needed for shortness of breath. Patient follow up with pulmonology as an outpatient to further monitor and address. 4. Patient likely has underlying obstructive sleep apnea. Recommendation is for the patient to have a sleep study done as an outpatient to further evaluate. Patient will likely require CPAP. This can be further addressed by pulmonology. 5. Patient has hypertension. Blood pressure was elevated upon admission. He reports blood pressures being elevated at home. Medication adjusted. At discharge she will continue with lisinopril 20 mg 1 pill twice daily. Recommendation is to maintain blood pressures less 150/80. Further adjustment can be done by his PCP. 6. Patient has hyperlipidemia. Patient will continue with Lipitor 20 mg daily. 7. Tobacco cessation addressed in detail. Education provided. Diet: AHA Activity: Ad yasmine Time spent managing pt's care (in minutes): 55
[2018-07-23 10:50] LABS: Blood Gas Oxyhemoglobin 87.3 % (94-97); Blood O2 Saturation 90.5 % (92-98.5)
[2018-07-23 10:58] VITALS: O2SAT 97
--- NOTE | 2018-07-23 11:25 | EKG ---
Test Date: 2018-07-22 Test Time: 11:58:23 [employer]: LASHAWN MEASUREMENT RESULTS: Intervals: Rate: 99 MI: 138 QRSD: 102 QT: 336 QTc: 431 [place]: P: 49 MI: 138 QRS: 62 T: 18 INTERPRETIVE STATEMENTS: Normal sinus rhythm Nonspecific ST and T wave abnormality Abnormal ECG Compared to ECG 05/01/2018 12:39:00 Possible ischemia no longer present ST (T wave) deviation still present Electronically Signed On 07-23-18 11:23:44 FREELANCE WRITER by Nazario Anderson
[2018-07-23 12:34] VITALS: BP 120/64; TEMP 98.3
[2018-07-23] MEDS ORDERED: DULERA 200/5 (MOMETASONE/FORMOTEROL) INHALER IH SCH (21:00)
--- NOTE | 2018-07-24 00:43 | CON ---
Date of Consultation: 07/23/[address] Bowden on 07/22/2018. I saw the patient on 07/23/2018. Reason For Consultation: Chest pain. History Of Present Illness: Mr. Langston is a 52-year-old white male, has a history of hypertension, dyslipidemia, tobacco use, noncompliance, minimal coronary artery disease by heart catheterization i n December of 2016. In October 2017, he had a normal echo and a normal stress test. When I cathed him, he had minimal coronary artery disease with no focal stenosis throughout. While he was in the hospital , he had a 4-second pause that apparently the said he has had very often. He has severe sleep a pnea that has not been investigated. Mr. Langston' major financial issue is getting his medication a nd his medical care and his studies that have been requested. I will see him in my office on a regul ar basis. His chest pain was sharp, stabbing, radiating to the back. No nausea, vomiting, diaphores is, PND, orthopnea, pedal edema, palpitations, or syncope. He is already ruled out for an OH. EKG s howed nonspecific changes. Allergies: HE IS ALLERGIC TO BETA BLOCKERS. Review of Systems: Negative. Social History: Positive for tobacco and alcohol. Family History: Negative. Medications: Supposed to be inhalers, aspirin, Elavil, lisinopril, and nitroglycerin p.r.n., but he only takes lisinopril. Physical Examination: Vital Signs: He weighed 228 pounds. His Vital signs were stable. Afebrile. HEENT: Negative. Neck: Supple. No bruit. Chest: Clear. Cardiac: Normal. Abdomen: Benign. Extremities: Revealed no clubbing, cyanosis, or edema. Diagnostic Data: Normal. Impression And Plan: 1.4-second pause secondary to sleep apnea. 2.Coronary artery disease that is mild, diffuse, plaquing. No focal stenosis. 3.Hypertension. 4.Dyslipidemia. 5.Tobacco use. 6.Noncompliance. Mr. Langston can go home as far as I am concerned. I will make sure he has nitroglycerin to take on an as-needed basis. He was reinforced to take his medication like he is supposed to, and he will fol low up with me in the near future. I would strongly urge him to get a sleep study. Mr. Langston sta meredith he cannot afford it. He will see me soon, and we will discuss that later. ROSSY/SARAH BETH Voice ID: [id number] Report ID: [id number]
== END 2018-07-23 11:55 | disposition home or self-care (01) ==
LOC: ER 11:51 → ERHOLD 13:44 → 4TH 15:54
PROVIDERS: ADMIT Family Medicine; ATTEND Family Medicine
DX: R07.9 Chest pain, unspecified (principal); J44.1 Chronic obstructive pulmonary disease with (acute) exacerbation; I10 Essential (primary) hypertension; E78.5 Hyperlipidemia, unspecified; I25.10 Atherosclerotic heart disease of native coronary artery without angina pectoris; Z91.14 Patient's other noncompliance with medication regimen; F17.210 Nicotine dependence, cigarettes, uncomplicated
CPT/HCPCS: 36415; 71045; 80048; 80076; 81003; 82550; 82553; 82805; 82962; 83735; 83880; 84132; 84484; 85025; 85610; 93005; G0378; J1650; J3475; J7512; J7605; J7606

== ENCOUNTER 2018-07-27 13:17 | Emergency (ER) | payer OTHER, SELFPAY ==
--- OUTSIDE RECORDS SUMMARY | 2018-07-27 13:19 | XMS REPORT ---
:1965 Author Organization [facility] Address [address] [place] [address] Dr. Fierro [address] [place] [id number] Care Team Providers Name Role Phone Unavailable Unavailable Unavailable Problems This patient has no known problems. Allergies, Adverse Reactions, Alerts This patient has no known allergies or adverse reactions. Medications This patient has no known medications.
--- NOTE | 2018-07-27 15:12 | RAD REPORT ---
EXAM DESCRIPTION: RAD - Chest Single View - 07/27/2018 2:49 pm CLINICAL HISTORY: CHEST PAIN Chest pain. COMPARISON: Chest Single View dated 07/22/2018; Chest Single View dated 05/01/2018; Chest Single View dated 04/25/2018; Chest Single View dated 04/21/2018 FINDINGS: Portable technique limits examination quality. The lungs are grossly clear. The heart is normal in size. No displaced fractures. IMPRESSION: No acute intrathoracic process suspected.
[2018-07-27 15:22] LABS: Absolute Lymphocytes (CBC) 2.3 K/uL (0.7-4.9); Absolute Monocytes 0.7 K/uL (0.1-1.3); Basophils % 0.8 % (0-1.3); Eosinophils % 0.3 % (0-4.4); Hematocrit 47.8 % (39.6-49.0); Lymphocytes % 20.3 % (15.3-44.8); MPV 9.2 fL (7.6-11.3); Monocytes % 6.6 % (3.3-12.3); RBC Red Blood Cell Count 5.22 M/uL (4.33-5.43)
[2018-07-27 15:24] LABS: Protime INR 1.01
[2018-07-27 15:43] LABS: ALT/SGPT 63 U/L (12-78); AST/SGOT 21 U/L (15-37); Albumin 3.7 g/dL (3.4-5.0); Alkaline Phosphatase 49 U/L (45-117); BUN Blood Urea Nitrogen 18 mg/dL (7-18); Bicarbonate 28 mmol/L (21-32); Bilirubin Direct < 0.1 mg/dL (0-0.2); Bilirubin Total 0.1 mg/dL (0.2-1.0); Glucose Level 159 mg/dL (74-106); NT PRO-BNP 16 pg/mL (<125); Potassium 4.1 mmol/L (3.5-5.1); Protein, Total 7.1 g/dL (6.4-8.2); Sodium Level 139 mmol/L (136-145); Troponin (Emerg Dept Use Only) < 0.02 ng/mL (0.0-0.045)
[2018-07-27] MEDS ORDERED: NA CHLORIDE 0.9% 1,000 ML ONE (16:13)
--- NOTE | 2018-07-27 16:39 | ER ---
Nurse's Notes [facility] Name: Juan Miguel Langston Age: 52 yrs Sex: Male : 1965 Arrival Date: 07/27/2018 Time: 13:20 Bed 17 Private MD: Diagnosis: Chest pain, unspecified;Essential (primary) hypertension;Tobacco use;Patient's noncompliance with medical treatment and regimen Presentation: 07/27 13:23 Presenting complaint: Patient states: my blood pressure shot up today, my left arm went tw2 numb. Transition of care: patient was not received from another setting of care. Onset of symptoms was July 27, 2018. Risk Assessment: Do you want to hurt yourself or someone else? Patient reports no desire to harm self or others. Initial Sepsis Screen: Does the patient meet any 2 criteria? No. Patient's initial sepsis screen is negative. Does the patient have a suspected source of infection? No. Patient's initial sepsis screen is negative. Care prior to arrival: None. 13:23 Method Of Arrival: Ambulatory tw 13:23 Acuity: DESTINY 3 tw2 Historical: - Allergies: 13:25 Metoprolol Tartrate; tw2 - Home Meds: 13:25 pantoprazole 40 mg Oral TbEC 1 tab once daily [Active]; ProAir HFA inhalation [Active]; tw2 nitroglycerin 0.4 mg SL subl 1 tab every 5 minutes [Active]; fluticasone-salmeterol inhalation [Active]; nitroglycerin 0.4 mg SL subl 1 tab every 5 minutes [Active]; lisinopril 20 mg Oral tab 1 tab once daily [Active]; aspirin 81 mg Oral chew 1 tab once daily [Active]; amlodipine 5 mg tab 1 tab once daily [Active]; - PMHx: 13:25 Angina; High Cholesterol; Hypertension; Myocardial infarction; tw2 - PSHx: 13:25 None; tw2 - Immunization history:: Adult Immunizations. - Social history:: Smoking status: Patient uses tobacco products, smokes one-half pack cigarettes per day. - Ebola Screening: : Patient denies travel to an Ebola-affected area in the 21 days before illness onset. Screenin:12 Abuse screen: Denies threats or abuse. Denies injuries from another. Nutritional aj screening: No deficits noted. Tuberculosis screening: No symptoms or risk factors identified. Fall Risk None identified. Assessment: 15:12 General: Appears in no apparent distress. comfortable, Behavior is calm, cooperative, aj appropriate for age. Pain: Complains of pain in chest. Pain: Pain does not radiate. Pain began 2 hours ago. Neuro: Level of Consciousness is awake, alert, obeys commands, Oriented to person, place, time, situation, Appropriate for age. Cardiovascular: Reports chest pain, Capillary refill < 3 seconds in bilateral fingers Patient's skin is warm and dry. Respiratory: Airway is patent Respiratory effort is even, unlabored, Respiratory pattern is regular, symmetrical. Derm: Skin is intact, is healthy with good turgor, Skin is pink, warm \T\ dry. normal. 16:07 Reassessment: Patient appears in no apparent distress at this time. No changes from aj previously documented assessment. Patient and/or family updated on plan of care and expected duration. Pain level reassessed. Patient is alert, oriented x 3, equal unlabored respirations, skin warm/dry/pink. Vital Signs: 13:24 BP 152 / 95; Pulse 124; Resp 19; Temp 99.2(O); Pulse Ox 98% on R/A; Weight 103.42 kg tw2 (R); Height 5 ft. 6 in. (167.64 cm); Pain 7/10; 15:46 BP 132 / 91; Pulse 109; Resp 20; Pulse Ox 98% on R/A; aj 16:07 BP 142 / 74; Pulse 103; Resp 20; Pulse Ox 96% on R/A; aj 16:28 BP 152 / 62; Pulse 98; Resp 20; Pulse Ox 96% on R/A; aj 13:24 Body Mass Index 36.80 (103.42 kg, 167.64 cm) tw2 ED Course: 13:20 Patient arrived in ED. mr 13:24 Triage completed. tw2 13:25 Arm band placed on. tw2 13:25 EKG done, by ED staff. Patient maintains SpO2 saturation greater than 95% on room air. tw2 14:07 Oliver Man NP is PHCP. pm1 14:07 Rashard Bardales MD is Attending Physician. pm1 14:14 Thu Wilson, NICCI is Primary Nurse. aj 14:50 XRAY Chest (1 view) In Process Unspecified. EDMS 15:12 Patient has correct armband on for positive identification. quality assurance monitor on. Pulse aj ox on. NIBP on. 15:12 Inserted saline lock: 18 gauge in right antecubital area, using aseptic technique. aj Blood collected. 16:36 Nazario Anderson MD is Referral Physician. pm1 16:50 No provider procedures requiring assistance completed. aj 17:01 IV discontinued, intact, bleeding controlled, No redness/swelling at site. Pressure aj dressing applied. Administered Medications: 16:06 Drug: NS 0.9% 1000 ml Route: IV; Rate: 1000 ml; Site: right antecubital; aj 17:01 Follow up: Response: No adverse reaction; IV Status: Completed infusion; IV Intake: aj 1000ml Intake: 17:01 IV: 1000ml; Total: 1000ml. aj Outcome: 16:37 Discharge ordered by . pm1 16:49 Discharged to home ambulatory, with family. aj 16:49 Condition: good 16:49 Discharge instructions given to patient, family, Instructed on discharge instructions, follow up and referral plans. available low income options for Primary Care in the area. Demonstrated understanding of instructions, follow-up care, medications. 17:01 Patient left the ED. aj Signatures: Dispatcher [employer] EDThu Payne, Tish Kebede RN mr Oliver Man, PRODUCE TEAM MEMBER PRODUCE TEAM MEMBER pm1 Myla Shelton RN RN tw2
--- NOTE | 2018-07-27 16:39 | EDPHYS ---
Physician Documentation [facility] Name: Juan Miguel Langston Age: 52 yrs Sex: Male : 1965 Arrival Date: 07/27/2018 Time: 13:20 Bed 17 Private MD: ED Physician Rashard Bardales HPI: 07/27 15:00 This 52 yrs old Male presents to ER via Ambulatory with complaints of Chest pm1 Pain, High Blood Pressure. 15:00 The patient or guardian reports chest pain that is located primarily in the anterior pm1 chest wall, bilaterally. Onset: this morning. The pain does not radiate. Associated signs and symptoms: Pertinent negatives: abdominal pain, cough, diaphoresis, dizziness, headache, nausea, palpitations, shortness of breath, vomiting. The chest pain is described as sharp. Duration: The patient or guardian reports a single episode, that is still ongoing. Modifying factors: The symptoms are alleviated by nothing. the symptoms are aggravated by nothing. The patient has experienced similar episodes in the past, multiple times. The patient has been recently been admitted at [facility], Patient with admission for chest pain 5 days ago and discharged the following day. Patient was discharged with increased dose of lisinopril. 20 mg PO BID. Patient reports that it is not improving his blood pressure. He was also discharged home with prednisone. Patient with suspected sleep apnea from admission and was recommended to follow up with Dr. Anderson for sleep study. Historical: - Allergies: 13:25 Metoprolol Tartrate; tw2 - Home Meds: 13:25 pantoprazole 40 mg Oral TbEC 1 tab once daily [Active]; ProAir HFA inhalation [Active]; tw2 nitroglycerin 0.4 mg SL subl 1 tab every 5 minutes [Active]; fluticasone-salmeterol inhalation [Active]; nitroglycerin 0.4 mg SL subl 1 tab every 5 minutes [Active]; lisinopril 20 mg Oral tab 1 tab once daily [Active]; aspirin 81 mg Oral chew 1 tab once daily [Active]; amlodipine 5 mg tab 1 tab once daily [Active]; - PMHx: 13:25 Angina; High Cholesterol; Hypertension; Myocardial infarction; tw2 - PSHx: 13:25 None; tw2 - Immunization history:: Adult Immunizations. - Social history:: Smoking status: Patient uses tobacco products, smokes one-half pack cigarettes per day. - Ebola Screening: : Patient denies travel to an Ebola-affected area in the 21 days before illness onset. ROS: 15:00 Constitutional: Negative for fever, chills, and weight loss, Eyes: Negative for injury, pm1 pain, redness, and discharge, ENT: Negative for injury, pain, and discharge, Neck: Negative for injury, pain, and swelling. 15:00 Respiratory: Negative for shortness of breath, cough, wheezing, and pleuritic chest pain, Abdomen/GI: Negative for abdominal pain, nausea, vomiting, diarrhea, and constipation, Back: Negative for injury and pain, : Negative for injury, bleeding, discharge, and swelling, MS/Extremity: Negative for injury and deformity, Skin: Negative for injury, rash, and discoloration, Neuro: Negative for headache, weakness, numbness, tingling, and seizure. 15:00 Cardiovascular: Positive for chest pain, Negative for edema, orthopnea, palpitations. Exam: 15:00 Constitutional: This is a well developed, well nourished patient who is awake, alert, pm1 and in no acute distress. Head/Face: Normocephalic, atraumatic. Eyes: Pupils equal round and reactive to light, extra-ocular motions intact. Lids and lashes normal. Conjunctiva and sclera are non-icteric and not injected. Cornea within normal limits. Periorbital areas with no swelling, redness, or edema. ENT: Nares patent. No nasal discharge, no septal abnormalities noted. Tympanic membranes are normal and external auditory canals are clear. Oropharynx with no redness, swelling, or masses, exudates, or evidence of obstruction, uvula midline. Mucous membranes moist. Neck: Trachea midline, no thyromegaly or masses palpated, and no cervical lymphadenopathy. Supple, full range of motion without nuchal rigidity, or vertebral point tenderness. No Meningismus. Chest/axilla: Normal chest wall appearance and motion. Nontender with no deformity. No lesions are appreciated. Cardiovascular: Regular rate and rhythm with a normal S1 and S2. No gallops, murmurs, or rubs. Normal PMI, no JVD. No pulse deficits. Respiratory: Lungs have equal breath sounds bilaterally, clear to auscultation and percussion. No rales, rhonchi or wheezes noted. No increased work of breathing, no retractions or nasal flaring. Abdomen/GI: Soft, non-tender, with normal bowel sounds. No distension or tympany. No guarding or rebound. No evidence of tenderness throughout. Back: No spinal tenderness. No costovertebral tenderness. Full range of motion. Skin: Warm, dry with normal turgor. Normal color with no rashes, no lesions, and no evidence of cellulitis. MS/ Extremity: Pulses equal, no cyanosis. Neurovascular intact. Full, normal range of motion. 15:00 Neuro: Orientation: is normal, Motor: is normal, Sensation: is normal, no obvious gross deficits, Gait: is steady, at a normal pace, without difficulty. Vital Signs: 13:24 BP 152 / 95; Pulse 124; Resp 19; Temp 99.2(O); Pulse Ox 98% on R/A; Weight 103.42 kg tw2 (R); Height 5 ft. 6 in. (167.64 cm); Pain 7/10; 15:46 BP 132 / 91; Pulse 109; Resp 20; Pulse Ox 98% on R/A; aj 16:07 BP 142 / 74; Pulse 103; Resp 20; Pulse Ox 96% on R/A; aj 16:28 BP 152 / 62; Pulse 98; Resp 20; Pulse Ox 96% on R/A; aj 13:24 Body Mass Index 36.80 (103.42 kg, 167.64 cm) tw2 MDM: 14:37 Patient medically screened. pm1 16:35 Data reviewed: vital signs. Data interpreted: Pulse oximetry: on room air is 96 %. pm1 Interpretation: normal. Counseling: I had a detailed discussion with the patient and/or guardian regarding: the historical points, exam findings, and any diagnostic results supporting the discharge/admit diagnosis, lab results, radiology results, the need for outpatient follow up, a ticker wirer, Monica, to return to the emergency department if symptoms worsen or persist or if there are any questions or concerns that arise at home. 07/27 14:38 Order name: Basic Metabolic Panel; Complete Time: 15:48 pm1 07/27 14:38 Order name: CBC with Diff; Complete Time: 15:28 pm1 07/27 14:38 Order name: LFT's; Complete Time: 15:48 pm07/27 14:38 Order name: Magnesium; Complete Time: 15:48 pm07/27 14:38 Order name: NT PRO-BNP; Complete Time: 15:48 pm07/27 14:38 Order name: PT-INR; Complete Time: 15:28 pm07/27 14:38 Order name: Troponin (emerg Dept Use Only); Complete Time: 15:48 pm07/27 14:38 Order name: XRAY Chest (1 view); Complete Time: 15:19 pm07/27 14:38 Order name: EKG; Complete Time: 14:38 pm07/27 14:38 Order name: Cardiac monitoring; Complete Time: 16:06 pm07/27 14:38 Order name: EKG - Nurse/Tech; Complete Time: 16:06 pm07/27 14:38 Order name: IV Saline Lock; Complete Time: 16:06 pm07/27 14:38 Order name: Labs collected and sent; Complete Time: 16:07 pm07/27 14:38 Order name: O2 Per Protocol; Complete Time: 16:07 pm07/27 14:38 Order name: O2 Sat Monitoring; Complete Time: 16:07 pm Administered Medications: 16:06 Drug: NS 0.9% 1000 ml Route: IV; Rate: 1000 ml; Site: right antecubital; aj 17:01 Follow up: Response: No adverse reaction; IV Status: Completed infusion; IV Intake: aj 1000ml Disposition: 19:04 Co-signature as Attending Physician, Rashard Bardales MD I agree with the assessment and kdr plan of care. Disposition: 07/27/18 16:37 Discharged to Home. Impression: Chest pain, unspecified, Essential (primary) hypertension, Tobacco use, Patient's noncompliance with medical treatment and regimen. - Condition is Stable. - Discharge Instructions: Nonspecific Chest Pain, Hypertension, Steps to Quit Smoking, Smoking Hazards, How to Take Your Blood Pressure, Dauj-[id number], DASH Eating Plan, Managing Your Hypertension. - Medication Reconciliation Form, Thank You Letter form. - Follow up: Emergency Department; When: As needed; Reason: Worsening of condition. Follow up: Nazario Anderson MD; When: 2 - 3 days; Reason: Recheck today's complaints, Continuance of care, Re-evaluation by your physician. - Problem is new. - Symptoms have improved. Signatures: Dispatcher [employer] EDThu Payne RN RN Rashard Escoto MD MD kdr Marinas, Patrick, WARP HAULER WARP HAULER pm1 Myla Shelton RN RN tw2 Corrections: (The following items were deleted from the chart) 17:01 16:37 07/27/2018 16:37 Discharged to Home. Impression: Chest pain, unspecified; aj Essential (primary) hypertension; Tobacco use; Patient's noncompliance with medical treatment and regimen. Condition is Stable. Forms are Medication Reconciliation Form, Thank You Letter, Antibiotic Education, Prescription Opioid Use. Follow up: Emergency Department; When: As needed; Reason: Worsening of condition. Follow up: Nazario Anderson; When: 2 - 3 days; Reason: Recheck today's complaints, Continuance of care, Re-evaluation by your physician. Problem is new. Symptoms have improved. pm1
--- NOTE | 2018-07-27 16:48 | EKG ---
Test Date: 2018-07-27 Test Time: 13:24:27 Auditing Manager: SERG MEASUREMENT RESULTS: Intervals: Rate: 118 AZ: 132 QRSD: 98 QT: 304 QTc: 426 Whittaker: P: 56 AZ: 132 QRS: 77 T: -58 INTERPRETIVE STATEMENTS: Sinus tachycardia ST & T wave abnormality, consider inferolateral ischemia Abnormal ECG Compared to ECG 07/22/2018 11:58:23 Possible ischemia now present Sinus rhythm no longer present ST (T wave) deviation still present Electronically Signed On 07-27-18 16:48:16 PHYSICS FACULTY MEMBER by Nazario Anderson
[2018-07-27 17:49] VITALS: TEMP 99.2
[2018-07-27 17:52] VITALS: O2SAT 96
[2018-07-27 17:53] VITALS: BP 152/62
== END 2018-07-27 17:01 | disposition home or self-care (01) ==
LOC: ER 13:17
DX: R07.9 Chest pain, unspecified (principal); I10 Essential (primary) hypertension; Z91.14 Patient's other noncompliance with medication regimen; Z79.82 Long term (current) use of aspirin; Z79.51 Long term (current) use of inhaled steroids; F17.210 Nicotine dependence, cigarettes, uncomplicated
CPT/HCPCS: 36415; 71045; 80048; 80076; 83735; 83880; 84484; 85025; 85610; 93005; 96360; 99285; J7030

== ENCOUNTER 2018-07-29 20:00 | Emergency (ER) | payer OTHER, SELFPAY ==
--- OUTSIDE RECORDS SUMMARY | 2018-07-29 20:02 | XMS REPORT ---
:1965 [facility] Address [address] [place] [address] Dr. Fierro [address] [place] [id number] Care Team Providers Name Role Phone Unavailable Unavailable Unavailable Problems This patient has no known problems. Allergies, Adverse Reactions, Alerts This patient has no known allergies or adverse reactions. Medications This patient has no known medications.
[2018-07-29] MEDS ORDERED: ALBUTEROL 2.5 MG/3 ML NEB SOL ONE (20:57)
[2018-07-29] MEDS ORDERED: IPRATROPIUM BROM 0.5MG/2.5ML ONE (20:57)
--- NOTE | 2018-07-29 22:11 | RAD REPORT ---
EXAM DESCRIPTION: RAD - Chest Single View - 07/29/2018 9:21 pm CLINICAL HISTORY: Bronchitis, shortness of breath COMPARISON: July 28 TECHNIQUE: AP portable chest image was obtained 2118 hour . FINDINGS: Lung volumes are low accentuating lung markings. No new mass, consolidation or failure fin ding. Heart and vasculature are normal. No measurable pleural effusion and no pneumothorax. No acute bony abnormality seen. No acute aortic findings suspected. IMPRESSION: Shallow inspiration chest film without acute cardiopulmonary finding. No significant change from the July 27 comparison.
[2018-07-29 22:50] LABS: Absolute Lymphocytes (CBC) 3.4 K/uL (0.7-4.9); Absolute Monocytes 0.9 K/uL (0.1-1.3); Absolute Neutrophil 7.7 K/uL (1.8-8.0); Basophils % 0.8 % (0-1.3); Eosinophils % 1.8 % (0-4.4); Hematocrit 45.9 % (39.6-49.0); Lymphocytes % 27.8 % (15.3-44.8); MPV 9.5 fL (7.6-11.3); Monocytes % 7.1 % (3.3-12.3); RBC Red Blood Cell Count 5.08 M/uL (4.33-5.43)
[2018-07-29 23:09] LABS: BUN Blood Urea Nitrogen 17 mg/dL (7-18); Bicarbonate 28 mmol/L (21-32); Glucose Level 218 mg/dL (74-106); NT PRO-BNP 17 pg/mL (<125); Potassium 4.2 mmol/L (3.5-5.1); Sodium Level 142 mmol/L (136-145); Troponin (Emerg Dept Use Only) < 0.02 ng/mL (0.0-0.045)
--- NOTE | 2018-07-29 23:23 | ER ---
Nurse's Notes [facility] Name: Juan Miguel Langston Age: 52 yrs Sex: Male : 1965 Arrival Date: 07/29/2018 Time: 20:04 Bed 28 Private MD: Diagnosis: Chronic obstructive pulmonary disease with (acute) exacerbation Presentation: 07/29 20:05 Presenting complaint: Patient states: "My bronchitis has gotten worse"; Seen in lp1 [place] and here in ER last weekend and diagnosed with bronchitis; Increased cough, difficulty to catch breath; Using inhalers at home with no improvement. Transition of care: patient was not received from another setting of care. Onset of symptoms was July 29, 2018. Risk Assessment: Do you want to hurt yourself or someone else? Patient reports no desire to harm self or others. Initial Sepsis Screen: Does the patient meet any 2 criteria? No. Patient's initial sepsis screen is negative. Does the patient have a suspected source of infection? No. Patient's initial sepsis screen is negative. Care prior to arrival: None. 20:05 Method Of Arrival: Ambulatory lp1 20:05 Acuity: DESTINY 3 lp1 Triage Assessment: 21:35 General: Appears in no apparent distress. comfortable. Respiratory: Reports shortness rv of breath on exertion Onset: The symptoms/episode began/occurred gradually, the patient has mild shortness of breath. Historical: - Allergies: 20:08 Metoprolol Tartrate; lp1 - Home Meds: 20:08 amlodipine 5 mg tab 1 tab once daily [Active]; aspirin 81 mg Oral chew 1 tab once daily lp1 [Active]; lisinopril 20 mg Oral tab 1 tab once daily [Active]; nitroglycerin 0.4 mg SL subl 1 tab every 5 minutes [Active]; pantoprazole 40 mg Oral TbEC 1 tab once daily [Active]; ProAir HFA inhalation [Active]; fluticasone-salmeterol inhalation [Active]; - PMHx: 20:08 Angina; High Cholesterol; Hypertension; Myocardial infarction; lp1 - PSHx: 20:08 None; lp1 - Immunization history:: Adult Immunizations up to date, Flu vaccine is up to date. - Social history:: Smoking status: Patient uses tobacco products, "Vapes". - Ebola Screening: : No symptoms or risks identified at this time. Screenin:09 Abuse screen: Denies threats or abuse. Denies injuries from another. Nutritional lp1 screening: No deficits noted. Tuberculosis screening: No symptoms or risk factors identified. Fall Risk None identified. Assessment: 20:27 General: Pt was outside smoking when called from lobby. Pt ambulated to exam room with ed1 steady gait.. 21:32 General: Appears in no apparent distress. comfortable, Behavior is calm, cooperative. rv Pain: Denies pain. Neuro: Level of Consciousness is awake. Cardiovascular: Rhythm is regular. Respiratory: Airway is patent Respiratory effort is even, Breath sounds are clear bilaterally. GI: Abdomen is round. : No signs and/or symptoms were reported regarding the genitourinary system. EENT: No signs and/or symptoms were reported regarding the EENT system. Derm: Skin is intact. Musculoskeletal: No signs and/or symptoms reported regarding the musculoskeletal system. Vital Signs: 20:08 BP 160 / 92; Pulse 109; Resp 20; Temp 98.8(O); Pulse Ox 95% on R/A; Weight 103.42 kg lp1 (R); Height 5 ft. 6 in. (167.64 cm); Pain 8/10; 20:46 BP 145 / 82; Pulse 96; Resp 19 S; Pulse Ox 93% on R/A; rv 21:00 BP 146 / 88; Pulse 100; Resp 13; Pulse Ox 98% on Nebulizer Mask; rv 21:15 BP 142 / 100; Pulse 103; Resp 24 S; Pulse Ox 94% on R/A; rv 21:45 BP 136 / 69; Pulse 102; Resp 21 S; Pulse Ox 94% on R/A; rv 22:00 BP 116 / 98; Pulse 91; Resp 18; Pulse Ox 95% ; rv 22:30 BP 138 / 75; Pulse 103; Resp 19 S; Pulse Ox 95% on R/A; rv 23:41 BP 121 / 72; Pulse 99; Resp 19 S; Pulse Ox 96% on R/A; rv 20:08 Body Mass Index 36.80 (103.42 kg, 167.64 cm) lp1 ED Course: 20:04 Patient arrived in ED. es 20:07 Triage completed. lp1 20:07 Arm band placed on left wrist. lp1 20:27 Donavon Kaufman MD is Attending Physician. gs 21:12 XRAY Chest (1 view) Sent. rv 21:21 XRAY Chest (1 view) In Process Unspecified. EDMS 21:35 Patient has correct armband on for positive identification. Placed in gown. Bed in low rv position. Call light in reach. Side rails up X 1. Pulse ox on. NIBP on. 21:35 Inserted saline lock: 20 gauge in left antecubital area, using aseptic technique. Blood rv collected. 22:54 Lab(s) recollected, by me, sent to lab. rv 23:42 No provider procedures requiring assistance completed. IV discontinued, bleeding rv controlled, No redness/swelling at site. Pressure dressing applied. Administered Medications: 20:51 Drug: AtroVENT Aerosol 0.5 mg Route: Inhalation; rv 21:53 Follow up: Response: No change in condition rv 20:52 Drug: Albuterol 2.5 mg Route: Inhalation; rv 21:53 Follow up: Response: No change in condition rv Outcome: 23:23 Discharge ordered by MD. 23:42 Discharged to home ambulatory. rv 23:42 Condition: good 23:42 Discharge instructions given to patient, Instructed on discharge instructions, follow up and referral plans. medication usage, Demonstrated understanding of instructions, follow-up care, medications, Prescriptions given X 2. 23:42 Patient left the ED. rv Signatures: Dispatcher [employer] EDConsuelo Chau Erika, RN RN ed1 Richa Jaime RN RN lp1 Donavon Kaufman MD MD Alex Gil RN RN rv
--- NOTE | 2018-07-29 23:24 | EDPHYS ---
Physician Documentation [facility] Name: Juan Miguel Langston Age: 52 yrs Sex: Male : 1965 Arrival Date: 07/29/2018 Time: 20:04 Bed 28 Private MD: ED Physician Donavon Kaufman HPI: 07/29 23:11 This 52 yrs old Male presents to ER via Ambulatory with complaints of Chest gs Congestion, Breathing Difficulty. 23:11 The patient has shortness of breath at rest. Onset: The symptoms/episode began/occurred gs 1 week(s) ago. 23:11 Duration: The symptoms are intermittent. The patient's shortness of breath is gs aggravated by coughing, is alleviated by nebulizer treatment. Associated signs and symptoms: Pertinent positives: non-productive cough, Pertinent negatives: chest pain. Severity of symptoms: At their worst the symptoms were moderate in the emergency department the symptoms are unchanged. The patient has experienced similar episodes in the past, several times. The patient has been recently seen at the [facility] Emergency Department, a couple of weeks ago. Historical: - Allergies: 20:08 Metoprolol Tartrate; lp1 - Home Meds: 20:08 amlodipine 5 mg tab 1 tab once daily [Active]; aspirin 81 mg Oral chew 1 tab once daily lp1 [Active]; lisinopril 20 mg Oral tab 1 tab once daily [Active]; nitroglycerin 0.4 mg SL subl 1 tab every 5 minutes [Active]; pantoprazole 40 mg Oral TbEC 1 tab once daily [Active]; ProAir HFA inhalation [Active]; fluticasone-salmeterol inhalation [Active]; - PMHx: 20:08 Angina; High Cholesterol; Hypertension; Myocardial infarction; lp1 - PSHx: 20:08 None; lp1 - Immunization history:: Adult Immunizations up to date, Flu vaccine is up to date. - Social history:: Smoking status: Patient uses tobacco products, "Vapes". - Ebola Screening: : No symptoms or risks identified at this time. ROS: 23:11 All other systems are negative. gs Exam: 23:11 Head/Face: Normocephalic, atraumatic. Eyes: Pupils equal round and reactive to light, gs extra-ocular motions intact. Lids and lashes normal. Conjunctiva and sclera are non-icteric and not injected. Cornea within normal limits. Periorbital areas with no swelling, redness, or edema. ENT: Nares patent. No nasal discharge, no septal abnormalities noted. Tympanic membranes are normal and external auditory canals are clear. Oropharynx with no redness, swelling, or masses, exudates, or evidence of obstruction, uvula midline. Mucous membranes moist. Neck: Trachea midline, no thyromegaly or masses palpated, and no cervical lymphadenopathy. Supple, full range of motion without nuchal rigidity, or vertebral point tenderness. No Meningismus. Chest/axilla: Normal chest wall appearance and motion. Nontender with no deformity. No lesions are appreciated. Cardiovascular: Regular rate and rhythm with a normal S1 and S2. No gallops, murmurs, or rubs. Normal PMI, no JVD. No pulse deficits. Abdomen/GI: Soft, non-tender, with normal bowel sounds. No distension or tympany. No guarding or rebound. No evidence of tenderness throughout. Back: No spinal tenderness. No costovertebral tenderness. Full range of motion. Skin: Warm, dry with normal turgor. Normal color with no rashes, no lesions, and no evidence of cellulitis. MS/ Extremity: Pulses equal, no cyanosis. Neurovascular intact. Full, normal range of motion. Neuro: Awake and alert, GCS 15, oriented to person, place, time, and situation. Cranial nerves II-XII grossly intact. Motor strength 5/5 in all extremities. Sensory grossly intact. Cerebellar exam normal. Normal gait. 23:11 Constitutional: The patient appears alert, awake. 23:11 Respiratory: the patient does not display signs of respiratory distress, Respirations: normal, symetrical, no use of accessory muscles, Breath sounds: decreased breath sounds, that are mild, are scattered. 23:11 ECG was reviewed by the Attending Physician. Vital Signs: 20:08 BP 160 / 92; Pulse 109; Resp 20; Temp 98.8(O); Pulse Ox 95% on R/A; Weight 103.42 kg lp1 (R); Height 5 ft. 6 in. (167.64 cm); Pain 8/10; 20:46 BP 145 / 82; Pulse 96; Resp 19 S; Pulse Ox 93% on R/A; rv 21:00 BP 146 / 88; Pulse 100; Resp 13; Pulse Ox 98% on Nebulizer Mask; rv 21:15 BP 142 / 100; Pulse 103; Resp 24 S; Pulse Ox 94% on R/A; rv 21:45 BP 136 / 69; Pulse 102; Resp 21 S; Pulse Ox 94% on R/A; rv 22:00 BP 116 / 98; Pulse 91; Resp 18; Pulse Ox 95% ; rv 22:30 BP 138 / 75; Pulse 103; Resp 19 S; Pulse Ox 95% on R/A; rv 23:41 BP 121 / 72; Pulse 99; Resp 19 S; Pulse Ox 96% on R/A; rv 20:08 Body Mass Index 36.80 (103.42 kg, 167.64 cm) lp1 MDM: 20:35 Patient medically screened. 23:11 Differential diagnosis: CHF exacerbation, Chronic Obstructive Pulmonary Disease gs pneumonia. Data reviewed: vital signs, nurses notes. Counseling: I had a detailed discussion with the patient and/or guardian regarding: the historical points, exam findings, and any diagnostic results supporting the discharge/admit diagnosis, lab results, radiology results, the need for outpatient follow up. Response to treatment: the patient's symptoms have markedly improved after treatment, and as a result, I will discharge patient. 07/29 20:36 Order name: Basic Metabolic Panel; Complete Time: 23:10 07/29 20:36 Order name: CBC with Diff; Complete Time: 23:10 07/29 20:36 Order name: NT PRO-BNP; Complete Time: 23:10 07/29 20:36 Order name: Troponin (emerg Dept Use Only); Complete Time: 23:10 07/29 20:36 Order name: XRAY Chest (1 view); Complete Time: 22:14 07/29 20:36 Order name: EKG; Complete Time: 20:37 07/29 20:36 Order name: Cardiac monitoring; Complete Time: 20:50 07/29 20:36 Order name: EKG - Nurse/Tech; Complete Time: 20:50 07/29 20:36 Order name: IV Saline Lock; Complete Time: 20:50 07/29 20:36 Order name: Labs collected and sent; Complete Time: 20:51 07/29 20:36 Order name: O2 Per Protocol; Complete Time: 20:51 07/29 20:36 Order name: O2 Sat Monitoring; Complete Time: 20:51 EC:11 Rate is 103 beats/min. Rhythm is regular. WI interval is normal. QRS interval is gs prolonged. QT interval is normal. T waves are Inverted. Clinical impression: Abnormal EKG without significant change. No change from previous ECG on July 27, 2018. Interpreted by me. Administered Medications: 20:51 Drug: AtroVENT Aerosol 0.5 mg Route: Inhalation; rv 21:53 Follow up: Response: No change in condition rv 20:52 Drug: Albuterol 2.5 mg Route: Inhalation; rv 21:53 Follow up: Response: No change in condition rv Disposition: 07/29/18 23:23 Discharged to Home. Impression: Chronic obstructive pulmonary disease with (acute) exacerbation. - Condition is Stable. - Discharge Instructions: Chronic Obstructive Pulmonary Disease. - Prescriptions for Levaquin 500 mg Oral Tablet - take 1 tablet by ORAL route once daily for 5 days; 5 tablet. Prednisone 20 mg Oral Tablet - take 1 tablet by ORAL route once daily for 5 days; 5 tablet. - Medication Reconciliation Form, Thank You Letter, Antibiotic Education, Prescription Opioid Use form. - Follow up: Private Physician; When: 1 - 2 days; Reason: Re-evaluation by your physician. Signatures: Dispatcher [employer] EDRicha Duran RN RN lp1 Donavon Kaufman MD MD Alex Gil RN RN rv Corrections: (The following items were deleted from the chart) 23:42 23:23 07/29/2018 23:23 Discharged to Home. Impression: Chronic obstructive pulmonary rv disease with (acute) exacerbation. Condition is Stable. Forms are Medication Reconciliation Form, Thank You Letter, Antibiotic Education, Prescription Opioid Use. Follow up: Private Physician; When: 1 - 2 days; Reason: Re-evaluation by your physician.
[2018-07-29 23:56] VITALS: TEMP 98.8
[2018-07-30 00:53] VITALS: BP 121/72; O2SAT 96
--- NOTE | 2018-07-30 07:05 | EKG ---
Test Date: 2018-07-29 Test Time: 20:11:55 Anesthetic Assistant: SIMI MEASUREMENT RESULTS: Intervals: Rate: 103 ND: 130 QRSD: 102 QT: 324 QTc: 424 Brooks: P: 58 ND: 130 QRS: 78 T: -60 INTERPRETIVE STATEMENTS: Sinus tachycardia ST & T wave abnormality, consider inferolateral ischemia Abnormal ECG Compared to ECG 07/27/2018 13:24:27 No significant changes Electronically Signed On 07-30-18 07:04:33 GARMENT SORTER by Nazario Anderson
== END 2018-07-29 23:42 | disposition home or self-care (01) ==
LOC: ER 20:00
DX: J44.1 Chronic obstructive pulmonary disease with (acute) exacerbation (principal); I10 Essential (primary) hypertension; I25.2 Old myocardial infarction; E78.00 Pure hypercholesterolemia, unspecified; Z72.0 Tobacco use; Z79.82 Long term (current) use of aspirin
CPT/HCPCS: 36415; 71045; 80048; 83880; 84484; 85025; 93005; 99284

== ENCOUNTER 2018-08-06 12:12 | Inpatient (IN) | payer OTHER, SELFPAY ==
--- OUTSIDE RECORDS SUMMARY | 2018-08-06 12:14 | XMS REPORT ---
:1965 [facility] [address] [place] [address] Dr. Fierro [address] [place] [id number] Care Team Providers Name Role Phone Unavailable Unavailable Unavailable Problems This patient has no known problems. Allergies, Adverse Reactions, Alerts This patient has no known allergies or adverse reactions. Medications This patient has no known medications.
[2018-08-06] MEDS ORDERED: ALBUTEROL 2.5 MG/3 ML NEB SOL ONE (14:48)
[2018-08-06] MEDS ORDERED: IPRATROPIUM BROM 0.5MG/2.5ML ONE (14:48)
[2018-08-06] MEDS ORDERED: METHYLPREDNISOLONE 125 MG INJ ONE ×2 (14:48→17:45)
[2018-08-06 14:50] LABS: Absolute Lymphocytes (CBC) 1.6 K/uL (0.7-4.9); Absolute Monocytes 0.5 K/uL (0.1-1.3); Absolute Neutrophil 9.5 K/uL (1.8-8.0); Eosinophils % 0.5 % (0-4.4); Hematocrit 47.9 % (39.6-49.0); Lymphocytes % 13.5 % (15.3-44.8); MPV 9.5 fL (7.6-11.3); Monocytes % 4.5 % (3.3-12.3); RBC Red Blood Cell Count 5.24 M/uL (4.33-5.43)
[2018-08-06 15:01] LABS: Protime INR 0.98
[2018-08-06 15:12] LABS: ALT/SGPT 109 U/L (12-78); AST/SGOT 28 U/L (15-37); Albumin 3.5 g/dL (3.4-5.0); Alkaline Phosphatase 48 U/L (45-117); BUN Blood Urea Nitrogen 20 mg/dL (7-18); Bicarbonate 29 mmol/L (21-32); Bilirubin Direct < 0.1 mg/dL (0-0.2); Bilirubin Total 0.2 mg/dL (0.2-1.0); Glucose Level 177 mg/dL (74-106); Magnesium 2.1 mg/dL (1.8-2.4); NT PRO-BNP 29 pg/mL (<125); Potassium 4.4 mmol/L (3.5-5.1); Protein, Total 6.8 g/dL (6.4-8.2); Sodium Level 141 mmol/L (136-145); Troponin (Emerg Dept Use Only) < 0.02 ng/mL (0.0-0.045)
[2018-08-06] MEDS ORDERED: MAGNESIUM SULFATE 1 gm IVPB 1 GM/100 ML BAG IV ONE (15:44)
--- NOTE | 2018-08-06 16:16 | RAD REPORT ---
EXAM DESCRIPTION: RAD - Chest Pa And Lat (2 Views) - 08/06/2018 3:47 pm CLINICAL HISTORY: COUGH Chest pain. COMPARISON: Chest Single View dated 07/29/2018; Chest Single View dated 07/27/2018; Chest Single View dated 07/22/2018; Chest Single View dated 05/01/2018 FINDINGS: The lungs are clear. The heart is normal in size. No displaced fractures. IMPRESSION: No acute or concerning finding suspected.
--- NOTE | 2018-08-06 16:38 | EDPHYS ---
Physician Documentation [facility] Name: Juan Miguel Langston Age: 52 yrs Sex: Male : 1965 Arrival Date: 08/06/2018 Time: 12:14 Bed 8 Private MD: ED Physician Lenard Rosario HPI: 08/06 14:15 This 52 yrs old Male presents to ER via Ambulatory with complaints of cp Allergic Reaction, Weakness. 14:15 The patient presents with shortness of breath. cp 14:15 Onset: The symptoms/episode began/occurred today. Associated signs and symptoms: cp Pertinent negatives: abdominal pain, chest pain, fever, headache, hives, rash, vomiting. Possible causes: antibiotics, Zithromax. At home the patient or guardian has treated the symptoms with patient reports he is currently taking oral prednisone for bronchitis. Severity of symptoms: in the emergency department the symptoms are unchanged despite home interventions. Historical: - Allergies: 12:40 Metoprolol Tartrate; aa5 - PMHx: 12:40 Angina; High Cholesterol; Hypertension; Myocardial infarction; aa5 - PSHx: 12:40 None; aa5 - Immunization history:: Flu vaccine is not up to date. - Social history:: Smoking status: Patient uses tobacco products, smokes one-half pack cigarettes per day. - Ebola Screening: : No symptoms or risks identified at this time. ROS: 14:20 Constitutional: Negative for body aches, chills, fever, poor PO intake. cp 14:20 Eyes: Negative for injury, pain, redness, and discharge. cp 14:20 ENT: Positive for sore throat, Negative for drainage from ear(s), ear pain, difficulty swallowing, difficulty handling secretions. 14:20 Neck: Negative for pain with movement, pain at rest, stiffness, tenderness. 14:20 Cardiovascular: Negative for chest pain, edema, palpitations. 14:20 Respiratory: Positive for cough, "sounds productive", shortness of breath. 14:20 Abdomen/GI: Negative for vomiting, diarrhea, constipation, black/tarry stool, rectal bleeding. 14:20 Skin: Negative for cellulitis, rash. 14:20 Neuro: Negative for altered mental status, dizziness, headache, weakness. 14:20 All other systems are negative. Exam: 14:25 Constitutional: The patient appears in no acute distress, alert, awake, cp non-diaphoretic, non-toxic, well developed, well nourished, obese. 14:25 Head/Face: Normocephalic, atraumatic. Eyes: Pupils equal round and reactive to light, cp extra-ocular motions intact. Lids and lashes normal. Conjunctiva and sclera are non-icteric and not injected. Cornea within normal limits. Periorbital areas with no swelling, redness, or edema. 14:25 ENT: External ear(s): are unremarkable, Ear canal(s): are normal, clear, TM's: bulging, is not appreciated, bilaterally, dullness, bilaterally, erythema, is not appreciated, bilaterally, Nose: is normal, Mouth: Lips: moist, Oral mucosa: moist, Tongue: is normal, abscess, is not appreciated, Posterior pharynx: Airway: no evidence of obstruction, patent, Uvula: midline, erythema, that is mild, exudate, is not appreciated, Voice: is hoarse. 14:25 Neck: Trachea: is midline with no obvious abnormalities, ROM/movement: is normal, is supple, without pain, no range of motions limitations, no meningismus, no nuchal rigidity, Lymph nodes: lymphadenopathy is appreciated, anterior cervical nodes. 14:25 Chest/axilla: Inspection: normal, Palpation: is normal, no crepitus, no tenderness. 14:25 Cardiovascular: Rate: normal, Rhythm: regular, Edema: is not appreciated, JVD: is not appreciated. 14:25 Respiratory: the patient does not display signs of respiratory distress, Respirations: normal, no use of accessory muscles, no retractions, no splinting, no tachypnea, labored breathing, is not present, Breath sounds: decreased breath sounds, are not appreciated, + upper airway congestion. wheezing: that is mild, is heard diffusely. 14:25 Abdomen/GI: Inspection: obese Bowel sounds: active, all quadrants, Palpation: abdomen is soft and non-tender, in all quadrants, voluntary guarding, is not appreciated, involuntary guarding, is not appreciated. 14:25 Back: pain, is absent, ROM is normal. 14:25 Skin: cellulitis, is not appreciated, no rash present. 14:25 Neuro: Orientation: to person, place \\T\\ time. Mentation: is normal, Cerebellar function: is grossly normal, Motor: moves all fours, strength is normal, Sensation: is normal. 15:08 ECG was reviewed by the Attending Physician. cp Vital Signs: 12:40 BP 146 / 87; Pulse 98; Resp 20 S; Temp 99.5(TE); Pulse Ox 95% on R/A; Weight 112.49 kg aa5 (R); Height 5 ft. 6 in. (167.64 cm) (R); Pain 8/10; 13:41 BP 149 / 101; Pulse 95; Resp 22; Pulse Ox 97% on R/A; Pain 8/10; em 14:44 BP 149 / 83; Pulse 94; Resp 22; Pulse Ox 99% on Nebulizer Mask; em 16:10 BP 143 / 97; Pulse 95; Resp 20; Temp 98.9(O); Pulse Ox 96% ; mh5 17:00 BP 137 / 89; Pulse 76; Resp 18; Temp 99.5(O); Pulse Ox 95% on R/A; em 18:50 BP 105 / 62; Pulse 81; Resp 15; Temp 98.2(O); Pulse Ox 90% on R/A; Pain 7/10; em 19:10 BP 155 / 65; Pulse 102; Resp 16 S; Temp 98(O); Pulse Ox 96% on 2 lpm NC; cc3 20:00 BP 144 / 72; Pulse 85; Resp 16; Pulse Ox 97% on BiPAP; rr5 20:30 BP 142 / 68; Pulse 71; Resp 16; Temp 97.7; Pulse Ox 97% on BiPAP; rr5 21:00 BP 131 / 75; Pulse 76; Resp 18; Pulse Ox 98% ; rr5 22:00 BP 124 / 60; Pulse 71; Resp 19; Pulse Ox 99% on BiPAP; rr5 23:00 BP 118 / 60; Pulse 65; Resp 19; Pulse Ox 98% on BiPAP; rr5 0204 00:00 BP 116 / 65; Pulse 70; Resp 20; Pulse Ox 96% on BiPAP; rr5 08/06 12:40 Body Mass Index 40.03 (112.49 kg, 167.64 cm) aa5 02 12:40 Pt c/o body aching aa5 MDM: 13:28 Patient medically screened. cp 15:00 Differential diagnosis: anaphylaxis, angioedema, Arrhythmias pneumonia, respiratory cp distress. 19:30 Data reviewed: vital signs, nurses notes, lab test result(s), EKG, radiologic studies, cp CT scan, plain films, and as a result, I will admit patient. 20:15 Physician consultation: Jonathan Argueta MD regarding admission, to the telemetry unit. cp patient's condition. 08/06 14:07 Order name: Influenza Screen (a \\T\\ B); Complete Time: 15:27 cp 02/ 14:07 Order name: Strep; Complete Time: 15:27 cp / 14:07 Order name: Basic Metabolic Panel; Complete Time: 15:27 cp 02/ 18:38 Interpretation: Normal except: GLUC 177; BUN 20; GFR 89; CA 8.1. cp 02/ 14:07 Order name: CBC with Diff; Complete Time: 15:27 cp / 14:07 Order name: LFT's; Complete Time: 15:27 cp / 14:07 Order name: Magnesium; Complete Time: 15:27 cp 02 14:07 Order name: NT PRO-BNP; Complete Time: 15:27 cp 02/ 14:07 Order name: PT-INR; Complete Time: 15:27 cp / 14:07 Order name: Troponin (emerg Dept Use Only); Complete Time: 15:27 cp 02/ 15:21 Order name: Throat Culture EDMS / 17:27 Order name: Blood Culture Adult (2) cp 02/ 19:17 Order name: ABG cp / 20:43 Order name: CBC with Automated Diff EDMS / 20:43 Order name: CBC with Automated Diff EDMS 02/ 15:28 Order name: XRAY Chest Pa And Lat (2 Views); Complete Time: 16:23 cp 02/ 16:23 Interpretation: Report reviewed. cp 08/06 17:33 Order name: CT Head Brain wo Cont; Complete Time: 18:36 cp 02/ 17:33 Order name: CT Soft Tissue Neck W/contr; Complete Time: 18:36 cp 02/ 18:49 Interpretation: Report reviewed. cp 02/ 19:17 Order name: BIPAP cp 02/ 20:43 Order name: Comprehensive Metabolic Panel EDMS / 20:43 Order name: Comprehensive Metabolic Panel EDMS 05:20 Order name: CBC Smear Scan EDMS 08/06 14:07 Order name: EKG; Complete Time: 14:08 cp 08/06 14:07 Order name: Cardiac monitoring; Complete Time: 16:27 cp 08/06 14:07 Order name: EKG - Nurse/Tech; Complete Time: 16:27 cp 08/06 14:07 Order name: IV Saline Lock; Complete Time: 16:27 cp 08/06 14:07 Order name: Labs collected and sent; Complete Time: 16:27 cp 08/06 14:07 Order name: O2 Per Protocol; Complete Time: 16:28 cp 08/06 14:07 Order name: O2 Sat Monitoring; Complete Time: 16:28 cp 08/06 20:43 Order name: CONS Pharmacy Consult EDPA 08/06 20:43 Order name: Heart Healthy EDMS EC:08 Rate is 88 beats/min. Rhythm is regular. MS interval is normal. QRS interval is normal. cp QT interval is normal. Interpreted by me. Reviewed by me. Administered Medications: 14:42 Drug: Albuterol - atroVENT (3:1) (2.5 mg - 0.5 mg) 3 ml Route: Nebulizer; em 15:31 Follow up: Response: No adverse reaction; Marked relief of symptoms em 14:50 Drug: SOLU-Medrol 60 mg Route: IVP; Site: right antecubital; iw 15:31 Follow up: Response: No adverse reaction em 15:49 Drug: Magnesium Sulfate 1 grams Route: IVPB; Infused Over: 1 hrs; Site: right em antecubital; 17:10 Follow up: Response: No adverse reaction; IV Status: Completed infusion; IV Intake: em 100ml 17:14 Drug: Tylenol 650 mg Route: PO; em 19:00 Follow up: Response: No adverse reaction; Temperature is decreased em 17:35 Drug: Benadryl 50 mg Route: IVP; Site: left wrist; iw 18:49 Follow up: Response: No adverse reaction em 17:35 Drug: SOLU-Medrol 60 mg Route: IVP; Site: left wrist; iw 18:33 Follow up: Response: No adverse reaction em 17:35 Drug: Pepcid 20 mg Route: IVP; Site: left wrist; iw 18:33 Follow up: Response: No adverse reaction em 17:35 Drug: Decadron - Dexamethasone 10 mg Route: IVP; Site: left wrist; iw 18:32 Follow up: Response: No adverse reaction em 19:20 Drug: Rocephin 1 grams Route: IV; Rate: bolus; Site: left forearm; cc3 19:22 Follow up: Response: No adverse reaction; IV Status: Completed infusion cc3 19:20 Drug: Racemic EPINPHrine 0.5 ml Route: Inhalation; cc3 Disposition: 08/07 09:18 Co-signature as Attending Physician, Lenard Rosario MD I agree with the assessment and rambo plan of care. Disposition: 08/06/18 20:30 Hospitalization ordered by Jonathan Argueta for Inpatient Admission. Preliminary diagnosis are Chronic obstructive pulmonary disease with (acute) exacerbation, Angioedema. - Bed requested for Telemetry/MedSurg (Inpatient). - Status is Inpatient Admission. hb - Condition is Stable. - Problem is new. - Symptoms have improved. UTI on Admission? No Signatures: Dispatcher [employer] EDMS Gris Ivy RN RN mw Anderson, Corey, MD MD cha Munoz, Edgar, RELATIONS LIAISON RELATIONS LIAISON em Adeline Langston RN RN iw Calderon, Audri, RN RN aa5 Lenard Gray PA PA cp Kym Jim RN RN Darlene Flores cc3 Corrections: (The following items were deleted from the chart) 08/06 17:19 16:37 08/06/2018 16:37 Discharged to Home. Impression: Chronic obstructive pulmonary cp disease with acute lower respiratory infection. Condition is Stable. Forms are Medication Reconciliation Form, Thank You Letter, Antibiotic Education, Prescription Opioid Use. Follow up: Private Physician; When: 1 - 2 days; Reason: Recheck today's complaints. Problem is new. Symptoms have improved. cp 18:38 18:04 Normal except: GLUC 177; BUN 20; GFR 89. cp cp 20:52 20:30 Hospitalization Ordered by Jonathan Argueta MD for Inpatient Admission. Preliminary mw diagnosis is Chronic obstructive pulmonary disease with (acute) exacerbation; Angioedema. Bed requested for Telemetry/MedSurg (Inpatient). Status is Inpatient Admission. Condition is Stable. Problem is new. Symptoms have improved. UTI on Admission? No. cp 08/07 05:33 08/06 20:52 08/06/2018 20:30 Hospitalization Ordered by Jonathan Argueta MD for Inpatient mw Admission. Preliminary diagnosis is Chronic obstructive pulmonary disease with (acute) exacerbation; Angioedema. Bed requested for [facility] HOLD. Status is Inpatient Admission. Condition is Stable. Problem is new. Symptoms have improved. UTI on Admission? No. mw 08/07 08:00 05:33 08/06/2018 20:30 Hospitalization Ordered by Jonathan Argueta MD for Inpatient Admission. Preliminary diagnosis is Chronic obstructive pulmonary disease with (acute) exacerbation; Angioedema. Bed requested for Telemetry/MedSurg (Inpatient). Status is Inpatient Admission. Condition is Stable. Problem is new. Symptoms have improved. UTI on Admission? No. mw
--- NOTE | 2018-08-06 16:38 | ER ---
Nurse's Notes [facility] Name: Juan Miguel Langston Age: 52 yrs Sex: Male : 1965 Arrival Date: 08/06/2018 Time: 12:14 Bed 8 Private MD: Diagnosis: Chronic obstructive pulmonary disease with (acute) exacerbation;Angioedema Presentation: 08/06 12:38 Presenting complaint: Patient states: "I am taking azithromycin for bronchitis and I aa5 feel like I am having an allergic reaction to it because I am weak". Pt also reports cough. Transition of care: patient was not received from another setting of care. Onset of symptoms was July 2018. Risk Assessment: Do you want to hurt yourself or someone else? Patient reports no desire to harm self or others. Initial Sepsis Screen: Does the patient meet any 2 criteria? No. Patient's initial sepsis screen is negative. Does the patient have a suspected source of infection? No. Patient's initial sepsis screen is negative. Care prior to arrival: None. 12:38 Method Of Arrival: Ambulatory aa5 12:38 Acuity: DESTINY 3 aa5 Historical: - Allergies: 12:40 Metoprolol Tartrate; aa5 - PMHx: 12:40 Angina; High Cholesterol; Hypertension; Myocardial infarction; aa5 - PSHx: 12:40 None; aa5 - Immunization history:: Flu vaccine is not up to date. - Social history:: Smoking status: Patient uses tobacco products, smokes one-half pack cigarettes per day. - Ebola Screening: : No symptoms or risks identified at this time. Screenin:41 Abuse screen: Denies threats or abuse. Nutritional screening: No deficits noted. em Tuberculosis screening: No symptoms or risk factors identified. Fall Risk None identified. Assessment: 13:41 General: Appears in no apparent distress. uncomfortable, Behavior is calm, cooperative, em Reports chills for fever for feeling ill for. Pain: Complains of pain in tongue and body aches Pain currently is 8 out of 10 on a pain scale. Neuro: Level of Consciousness is awake, alert, obeys commands, Oriented to person, place, time, situation. Cardiovascular: Capillary refill < 3 seconds Patient's skin is warm and dry. Respiratory: Airway is patent Respiratory effort is even, unlabored, Respiratory pattern is regular, symmetrical, Breath sounds with wheezes bilaterally. GI: Abdomen is round non-distended. : No signs and/or symptoms were reported regarding the genitourinary system. Derm: Skin is intact, Skin is pink, warm \\T\\ dry. Musculoskeletal: Range of motion: intact in all extremities. 15:35 Reassessment: Patient and/or family updated on plan of care and expected duration. Pain em level reassessed. Patient is alert, oriented x 3, equal unlabored respirations, skin warm/dry/pink. 16:39 Reassessment: Patient appears in no apparent distress at this time. Patient and/or em family updated on plan of care and expected duration. Pain level reassessed. Patient is alert, oriented x 3, equal unlabored respirations, skin warm/dry/pink. Patient states feeling better. Patient states symptoms have improved. 17:25 Reassessment: Patient appears in no apparent distress at this time. Patient and/or em family updated on plan of care and expected duration. Pain level reassessed. Patient is alert, oriented x 3, equal unlabored respirations, skin warm/dry/pink. pt was discharged, IV d/c'd, instructions signed, pt reevaluated by provider, will receive new medication. 18:30 Reassessment: pt not improving, tongue swelling has increased, SPO2 92 % RA, skin cool em and clammy, respiration even and unlabored, provider at bedside, reports feeling the same. 18:50 Reassessment: SPO2 90% RA, placed patient on 2 L via NC, provider notified. em 19:05 Reassessment: Patient and/or family updated on plan of care and expected duration. Pain cc3 level reassessed. Patient is alert, oriented x 3, equal unlabored respirations, skin warm/dry/pink. Received this male patient from morning shift [facility] as a case of allergic reaction and weakness. With IV cannula gauge 20 at the left forearm saline locked. On oxygen therapy by nasal cannula at 2 LPM saturating 96%. Patient appears uncomfortable, sweating, and he said he doesn't feel fine, informed ADIEL Gray and he reassessed the patient at bedside. ADIEL Gray instructed patient tosip some water, he managed to swallow without coughing but he said he's got difficulty swallowing it, ADIEL Gray aware. 19:15 Reassessment: Dr. Kaufman at bedside and ordered patient for BiPap and might be for cc3 possible intubation, charge nurse Val informed. 19:22 Reassessment: Patient and/or family updated on plan of care and expected duration. Pain cc3 level reassessed. Patient is alert, oriented x 3, equal unlabored respirations, skin warm/dry/pink. Transferred the patient to trauma pod for continuity of care and management. 19:30 General: Appears in no apparent distress. comfortable, Behavior is calm, cooperative, rr5 appropriate for age. Pain: Complains of pain in body Pain does not radiate. Pain currently is 7 out of 10 on a pain scale. Quality of pain is described as aching, Pain began gradually, Is intermittent. Neuro: Level of Consciousness is awake, alert, obeys commands, Oriented to person, place, time, situation, Appropriate for age. Cardiovascular: Capillary refill < 3 seconds Patient's skin is warm and dry. Respiratory: Airway is patent Respiratory effort is even, unlabored, Respiratory pattern is regular, symmetrical, hooked on BIPAP. EENT: No signs and/or symptoms were reported regarding the EENT system. Derm: Skin is intact, Skin is pink, warm \\T\\ dry. Skin temperature is warm. Musculoskeletal: Range of motion: intact in all extremities. 20:30 Reassessment: Patient appears in no apparent distress at this time. Patient is alert, rr5 oriented x 3, equal unlabored respirations, skin warm/dry/pink. i feel much better as verbalized Patient states feeling better. Patient states symptoms have improved. 21:20 Reassessment: Patient appears in no apparent distress at this time. Patient is alert, rr5 oriented x 3, equal unlabored respirations, skin warm/dry/pink. Patient states feeling better. Patient states symptoms have improved. 22:40 Reassessment: Patient appears in no apparent distress at this time. Patient is alert, rr5 oriented x 3, equal unlabored respirations, skin warm/dry/pink. asleep on bed comfortably on high christie's position. hooked to BIPAP. without complaints made. Patient states symptoms have improved. 23:40 Reassessment: Patient appears in no apparent distress at this time. Patient is alert, rr5 oriented x 3, equal unlabored respirations, skin warm/dry/pink. maintaining O2 saturation >96% on BIPAP Patient states symptoms have improved. Vital Signs: 12:40 BP 146 / 87; Pulse 98; Resp 20 S; Temp 99.5(TE); Pulse Ox 95% on R/A; Weight 112.49 kg aa5 (R); Height 5 ft. 6 in. (167.64 cm) (R); Pain 8/10; 13:41 BP 149 / 101; Pulse 95; Resp 22; Pulse Ox 97% on R/A; Pain 8/10; em 14:44 BP 149 / 83; Pulse 94; Resp 22; Pulse Ox 99% on Nebulizer Mask; em 16:10 BP 143 / 97; Pulse 95; Resp 20; Temp 98.9(O); Pulse Ox 96% ; mh5 17:00 BP 137 / 89; Pulse 76; Resp 18; Temp 99.5(O); Pulse Ox 95% on R/A; em 18:50 BP 105 / 62; Pulse 81; Resp 15; Temp 98.2(O); Pulse Ox 90% on R/A; Pain 7/10; em 19:10 BP 155 / 65; Pulse 102; Resp 16 S; Temp 98(O); Pulse Ox 96% on 2 lpm NC; cc3 20:00 BP 144 / 72; Pulse 85; Resp 16; Pulse Ox 97% on BiPAP; rr5 20:30 BP 142 / 68; Pulse 71; Resp 16; Temp 97.7; Pulse Ox 97% on BiPAP; rr5 21:00 BP 131 / 75; Pulse 76; Resp 18; Pulse Ox 98% ; rr5 22:00 BP 124 / 60; Pulse 71; Resp 19; Pulse Ox 99% on BiPAP; rr5 23:00 BP 118 / 60; Pulse 65; Resp 19; Pulse Ox 98% on BiPAP; rr5 02 00:00 BP 116 / 65; Pulse 70; Resp 20; Pulse Ox 96% on BiPAP; rr5 08/06 12:40 Body Mass Index 40.03 (112.49 kg, 167.64 cm) aa5 08/06 12:40 Pt c/o body aching aa5 ED Course: 12:14 Patient arrived in ED. mr 12:39 Triage completed. aa5 12:39 Arm band placed on. aa5 13:27 Lenard Gray PA is PHCP. cp 13:27 Lenard Rosario MD is Attending Physician. cp 13:40 Michael Burt LVN is Primary Nurse. em 13:41 Patient has correct armband on for positive identification. Placed in gown. Bed in low em position. Call light in reach. Side rails up X2. Adult w/ patient. pick up and delivery driver on. Pulse ox on. NIBP on. 14:35 Initial lab(s) drawn, by mi, sent to lab. Flu and/or RSV swab sent to lab. Strep swab 5 sent to lab. Inserted saline lock: 18 gauge in right antecubital area, using aseptic technique. Blood collected. 14:36 Basic Metabolic Panel Sent. 5 14:36 CBC with Diff Sent. 5 14:36 LFT's Sent. [facility] 14:36 Magnesium Sent. 5 14:36 NT PRO-BNP Sent. 5 14:36 PT-INR Sent. 5 14:36 Troponin (emerg Dept Use Only) Sent. 5 14:36 Strep Sent. 5 14:36 Influenza Screen (a \\T\\ B) Sent. mh5 15:45 XRAY Chest Pa And Lat (2 Views) In Process Unspecified. EDMS 17:10 IV discontinued, intact, bleeding controlled, No redness/swelling at site. Pressure em dressing applied. 17:30 Inserted saline lock: 20 gauge in left wrist, using aseptic technique. em 18:14 CT completed. Patient tolerated procedure well. Patient moved back from CT. mw3 18:15 CT Head Brain wo Cont In Process Unspecified. EDMS 18:15 CT Soft Tissue Neck W/contr In Process Unspecified. EDMS 20:29 Jonathan Argueta MD is Hospitalizing Provider. cp 20:58 No provider procedures requiring assistance completed. ea 08/07 07:15 Primary Nurse role handed off by Michael Burt LVN bd 07:20 Kym Jim, RN is Primary Nurse. hb Administered Medications: 08/06 14:42 Drug: Albuterol - atroVENT (3:1) (2.5 mg - 0.5 mg) 3 ml Route: Nebulizer; em 15:31 Follow up: Response: No adverse reaction; Marked relief of symptoms em 14:50 Drug: SOLU-Medrol 60 mg Route: IVP; Site: right antecubital; iw 15:31 Follow up: Response: No adverse reaction em 15:49 Drug: Magnesium Sulfate 1 grams Route: IVPB; Infused Over: 1 hrs; Site: right em antecubital; 17:10 Follow up: Response: No adverse reaction; IV Status: Completed infusion; IV Intake: em 100ml 17:14 Drug: Tylenol 650 mg Route: PO; em 19:00 Follow up: Response: No adverse reaction; Temperature is decreased em 17:35 Drug: Benadryl 50 mg Route: IVP; Site: left wrist; iw 18:49 Follow up: Response: No adverse reaction em 17:35 Drug: SOLU-Medrol 60 mg Route: IVP; Site: left wrist; iw 18:33 Follow up: Response: No adverse reaction em 17:35 Drug: Pepcid 20 mg Route: IVP; Site: left wrist; iw 18:33 Follow up: Response: No adverse reaction em 17:35 Drug: Decadron - Dexamethasone 10 mg Route: IVP; Site: left wrist; iw 18:32 Follow up: Response: No adverse reaction em 19:20 Drug: Rocephin 1 grams Route: IV; Rate: bolus; Site: left forearm; cc3 19:22 Follow up: Response: No adverse reaction; IV Status: Completed infusion cc3 19:20 Drug: Racemic EPINPHrine 0.5 ml Route: Inhalation; cc3 Intake: 17:10 IV: 100ml; Total: 100ml. em Outcome: 16:37 Discharge ordered by MD. cp 20:30 Decision to Hospitalize by Provider. cp 20:58 Admitted to ER Hold. Please see [facility] for further documentation. ea 20:58 Condition: stable 20:58 Instructed on the need for admit. 08/07 07:34 Admitted to Tele accompanied by tech, family with patient, via wheelchair, room 221, hb with oxygen, Report called to NICCI Jacome 08:00 Patient left the ED. hb Signatures: Dispatcher [employer] EDMS Tawana Alfaroa, Tish mr Burt, Michael, TOWEL DISTRIBUTOR TOWEL DISTRIBUTOR em Adeline Langston RN RN iw Calderon, Audri, RN RN aa5 Lenard Gray, ADIEL PA Kym Estrada RN RN hb Martinez, Maria [facility] Jeimy Lopez RN RN ea Willis, Michelle 3 Darlene Flores cc3 Triston Do, RN RN rr5 Corrections: (The following items were deleted from the chart) 00:17 08/06 22:15 Reassessment: Patient appears in no apparent distress at this time. rr5 endorsed to [facility] staff flash [email or web address] accepted the case. rr5
[2018-08-06] MEDS ORDERED: ACETAMINOPHEN 325 MG TABLET ONE (17:20)
[2018-08-06] MEDS ORDERED: DEXAMETHASONE 4 MG/ML VIAL ONE (17:45)
[2018-08-06] MEDS ORDERED: DIPHENHYDRAMINE 50 MG/ML VIAL ONE (17:45)
[2018-08-06] MEDS ORDERED: FAMOTIDINE 20 MG/2 ML VIAL IV ONE (17:46)
--- NOTE | 2018-08-06 18:26 | RAD REPORT ---
EXAM DESCRIPTION: CT - Head Brain Wo Cont - 08/06/2018 6:15 pm CLINICAL HISTORY: tongue swelling Headache, drowsiness COMPARISON: HEAD BRAIN W O CONTRAST dated 02/10/2009 TECHNIQUE: All CT scans are performed using dose optimization technique as appropriate and may inclu de automated exposure control or mA/KV adjustment according to patient size. FINDINGS: No intracranial hemorrhage, hydrocephalus or extra-axial fluid collection.No areas of brai n edema or evidence of midline shift. Moderate polypoid mucosal thickening affects both maxillary antra, greater on the left. Fluid is pres ent in both mastoid air cells. The calvarium is intact. IMPRESSION: No acute intracranial abnormality. Moderate paranasal sinus polypoid mucosal thickening.
--- NOTE | 2018-08-06 18:34 | RAD REPORT ---
EXAM DESCRIPTION: CT - Soft Tissue Neck W/Contr CLINICAL HISTORY: tongue swelling Neck pain and swelling COMPARISON: [id number] dated 02/10/[address] scans are performed using dose optimization technique as appropriate and may includ e automated exposure control or mA/KV adjustment according to patient size. FINDINGS: Nasopharyngeal tissues are normal in appearance. Fossa Rosenmller are normal. Enlargement of both palatine tonsils, greater on the right. Parapharyngeal fat triangles are symmetric. Tongue base structures are normal. Mildly enlarged lymph nodes are seen chains, largest on the left measuring 10 mm. Salivary glands are normal in appearance. Moderate polypoid mucosal thickening of both maxillary antra and ethmoid air cells. Fluid is present in both mastoid air cells inferiorly. Upper lung mendosa are clear. Included intracranial contents are unremarkable. IMPRESSION: Tonsillar enlargement is seen involving the palatine tonsils. No abscess present. No gross tongue abnormality detected on CT imaging. Mildly enlarged lymph nodes along the jugular chain, largest on the left, probably represent reactive adenopathy. Fluid in both mastoid air cells along with moderate mucoperiosteal thickening of the paranasal sinuse s.
[2018-08-06] MEDS ORDERED: EPINEPHRINE INH 0.5 ML VIAL IH ONE (19:29)
[2018-08-06] MEDS ORDERED: CEFTRIAXONE/SWI 1gm 1 GM/10 ML SYR ONE (19:29)
[2018-08-06 19:41] LABS: Arterial Blood Carboxyhemoglob 2.6 % (0-1.5); Blood O2 Saturation 93.7 % (92-98.5)
[2018-08-06] MEDS ORDERED: ACETAMINOPHEN 500 MG TAB PO PRN (20:40)
[2018-08-06] MEDS ORDERED: MORPHINE 2 MG/ML SYR IV PRN (20:40)
[2018-08-06] MEDS ORDERED: ONDANSETRON 4 MG/2 ML VIAL IV PRN (20:40)
[2018-08-07] MEDS: NA CHLORIDE 0.9% 1,000 ML IV SCH ×2 (01:00→10:20)
[2018-08-07] MEDS ORDERED: NA CHLORIDE 0.9% 1,000 ML ONE (01:13)
[2018-08-07 04:55] LABS: Absolute Lymphocytes (CBC) 1.4 K/uL (0.7-4.9); Absolute Monocytes 0.4 K/uL (0.1-1.3); Absolute Neutrophil 12.3 K/uL (1.8-8.0); Basophils % 0.7 % (0-1.3); Eosinophils % 0.2 % (0-4.4); Hematocrit 47.6 % (39.6-49.0); Lymphocytes % 9.6 % (15.3-44.8); MPV 9.3 fL (7.6-11.3); Monocytes % 2.9 % (3.3-12.3); RBC Red Blood Cell Count 5.23 M/uL (4.33-5.43)
[2018-08-07 05:13] LABS: ALT/SGPT 90 U/L (12-78); AST/SGOT 14 U/L (15-37); Albumin 3.5 g/dL (3.4-5.0); Alkaline Phosphatase 41 U/L (45-117); BUN Blood Urea Nitrogen 21 mg/dL (7-18); Bicarbonate 25 mmol/L (21-32); Bilirubin Total 0.2 mg/dL (0.2-1.0); Glucose Level 165 mg/dL (74-106); Potassium 4.4 mmol/L (3.5-5.1); Protein, Total 6.8 g/dL (6.4-8.2); Sodium Level 141 mmol/L (136-145)
[2018-08-07 05:19] LABS: Blood Morphology Comment NOT SEEN (NOT SEEN); Platelet Estimate ADEQ; Urine White Blood Cell Casts OK
[2018-08-07 06:44] VITALS: BMI 40.0
--- NOTE | 2018-08-07 07:23 | EKG ---
Test Date: 2018-08-06 Test Time: 15:02:22 Mens Locker Room Attendant: ZACHARY MEASUREMENT RESULTS: Intervals: Rate: 88 MD: 134 QRSD: 94 QT: 344 QTc: 416 [place]: P: 51 MD: 134 QRS: 64 T: 6 INTERPRETIVE STATEMENTS: Normal sinus rhythm Nonspecific T wave abnormality Abnormal ECG Compared to ECG 07/29/2018 20:11:55 T-wave abnormality now present Sinus tachycardia no longer present ST (T wave) deviation no longer present Possible ischemia no longer present Electronically Signed On 08-07-18 07:17:02 VALVE LAPPER by Eduardo Hernandes
[2018-08-07] MEDS ORDERED: METHYLPREDNISOLONE 125 MG INJ IV ONE (09:00)
[2018-08-07] MEDS ORDERED: INFLUENZA VACCINE (for 3y+) 0.5 ML DOSE IMVAC ONE (09:00)
--- NOTE | 2018-08-07 09:07 | P.HP ---
Certification for Inpatient Patient admitted to: Observation With expected LOS: <2 Midnights Patient will require the following post-hospital care: None Practitioner: I am a practitioner with admitting privileges, knowledge of patient current condition, hospital course, and medical plan of care. Services: Services provided to patient in accordance with Admission requirements found in Title 42 Section 412.3 of the Code of Federal Regulations Patient History Date of Service: 08/06/18 Reason for admission: acute COPD exacerbation/angioedema History of Present Illness: Patient is a 52-year-old gentleman who came to the hospital with swelling of the tongue which he thought was related to azithromycin use. He has been on azithromycin for acute bronchitis. He has a history of COPD and was coughing and congested and short of breath. He was treated with nebs, steroids, and antibiotics. He will be admitted to the hospital for observation. Will continue the Solu-Medrol as well as the antibiotics which will changed to Rocephin. He will need observation admission at this time. Allergies Beta-Blockers (Beta-Adrenergic Bloc Adverse Reaction (Verified 10/09/17 11:30) Anaphylaxis metoprolol Adverse Reaction (Verified 10/10/17 06:56) Anaphylaxis No Known Allergies Allergy (Uncoded 10/10/17 20:05) Unknown Home Medications: Aspirin [Aspirin EC 81 MG] 81 mg PO DAILY #30 tablet. 02/09/18 Albuterol Sulfate [Proair Respiclick] 2 puff IH TID PRN #1 [email or web address] 07/23/18 Atorvastatin Calcium [Lipitor*] 20 mg PO BEDTIME #30 tab 07/23/18 Lisinopril [Prinivil*] 20 mg PO BID #60 tab 07/23/18 Mometasone/Formoterol [Dulera 200 Mcg/5 Mcg Inhaler] 2 puff IH BID #1 inhaler Nitroglycerin [Nitrostat*] 0.4 mg SL UD PRN #30 tab 07/23/18 predniSONE [Deltasone*] 10 mg PO SEECOM #15 tab 07/23/18 Azithromycin 500 PO ONCE 08/07/18 Cetirizine HCl 08/07/18 Famotidine 08/07/18 - Past Medical/Surgical History Diabetic: No -: Angina -: HTN -: Hyperlipidemia -: Tobacco abuse -: CAD -: COPD -: GERD -: Noncompliance with medication and follow up -: CARDIAC CATH 12/2013 NO STENTS 30% BLOCKAGE PER PT -: Cardiac stress tests October 2017 showed no stress-induced ischemia Psychosocial/ Personal History: Patient is single. Patient is homeless. - Family History MOM History Unknown: Yes Medical History: Heart disease, Other (see notes) Notes: MASSIVE [place] 61YR and arthritis DAD History Unknown: Yes Medical History: Heart disease, Other (see notes) Notes: POOR CIRCULATION TO LEGS PER PT - Social History Smoking Status: Current every day smoker Alcohol use: Yes Caffeine use: Yes Review of Systems 10-point ROS is otherwise unremarkable Physical Examination - Vital Signs Temperature: 97.8 F Blood Pressure: 134/70 Pulse: 92 Respirations: 15 Pulse Ox (%): 96 - Physical Exam General: Alert, In no apparent distress, Oriented x3 HEENT: Atraumatic, PERRLA, Mucous membr. moist/pink, EOMI, Sclerae nonicteric Neck: Supple, 2+ carotid pulse no bruit, No LAD, Without JVD or thyroid abnormality Respiratory: Diminished, Expiratory wheezes Cardiovascular: Regular rate/rhythm, Normal S1 S2 Gastrointestinal: Normal bowel sounds, Soft and benign, Non-distended, No tenderness Musculoskeletal: No clubbing, No swelling, No tenderness Integumentary: No rashes Neurological: Normal gait, Normal speech, Normal strength at 5/5 x4 extr, Normal tone, Sensation intact, Cranial nerves 3-12 intact, Normal affect Lymphatics: No axilla or inguinal lymphadenopathy - Studies Laboratory Data (last 24 hrs) 08/06/18 14:30: PT 11.6, INR 0.98 08/06/18 14:30: WBC 11.9 H, Hgb 15.8, Hct 47.9, Plt Count 303 08/06/18 14:30: Sodium 141, Potassium 4.4, BUN 20 H, Creatinine 0.90, Glucose 177 H, Magnesium 2.1, Total Bilirubin 0.2, AST 28, ALT 109 H, Alkaline Phosphatase 48 Microbiology Data (last 24 hrs): 08/06/18 14:30 Throat Culture & Sensitivity - Final 08/06/18 14:30 Throat Group A Streptococcus Rapid Screen - Final 08/06/18 14:30 Nasopharnyx Influenza Type A Antigen Screen - Final 08/06/18 14:30 Nasopharnyx Influenza Type B Antigen Screen - Final Assessment & Plan - Problems (Diagnosis) (1) COPD exacerbation Current Visit: No Status: Acute (2) Chest pain Onset Date: 03/03/18 Current Visit: No Status: Acute Qualifiers: (3) CAD (coronary artery disease) Onset Date: 03/03/18 Current Visit: No Status: Chronic Qualifiers: (4) GERD (gastroesophageal reflux disease) Current Visit: No Status: Chronic Qualifiers: (5) HLD (hyperlipidemia) Onset Date: 10/11/17 Current Visit: No Status: Chronic Qualifiers: (6) HTN (hypertension) Onset Date: 03/03/18 Current Visit: No Status: Chronic Qualifiers: (7) Nicotine dependence Onset Date: 10/11/17 Current Visit: No Status: Chronic Qualifiers: (8) Non-compliance Onset Date: 03/03/18 Current Visit: No Status: Chronic (9) Obesity Current Visit: No Status: Chronic Qualifiers: (10) Obesity (BMI 30.0-34.9) Onset Date: 12/15/16 Current Visit: No Status: Chronic (11) Tobacco abuse Onset Date: 03/03/18 Current Visit: No Status: Chronic - Plan -nebs, steroids, and antibiotics -O2 per protocol. -Benadryl as needed - monitor respiratory status closely -repeat chest x-ray if respiratory status worsens -pulmonary consultation as an outpatient Discharge Plan: Home Plan to discharge in: 48 Hours - Advance Directives Does patient have a Living Will: No Does patient have a Durable POA for Healthcare: No - Code Status/Comfort Care Code Status Assessed: Yes Code Status: Full Code Critical Care: No Time Spent Managing PTS Care (In Minutes): 55
[2018-08-07] MEDS ORDERED: DEXAMETHASONE 4 MG/ML VIAL IV ONE (10:25)
[2018-08-07] MEDS ORDERED: DIPHENHYDRAMINE 25 MG TAB/CAP PO PRN (10:38)
[2018-08-07] MEDS ORDERED: DIPHENHYDRAMINE 50 MG/ML VIAL IV ONE (11:16)
--- NOTE | 2018-08-07 11:23 | P.PN ---
Subjective Date of Service: 08/07/18 Chief Complaint: acute COPD exacerbation/angioedema Patient seen and examined at bedside with RN. Chart reviewed. Case discussed with Family at bedside as well along with the patient. This morning no complaints to offer. However still continues to have swelling in the tonsillar region. Able to swallow and tolerate diet this morning. However uvula on physical exam does appear to be swollen today. Patient also has difficulty speaking due to swollen tongue and tonsils Review of Systems 10-point ROS is otherwise unremarkable Physical Examination - Vital Signs Temperature: 97.8 F Blood Pressure: 134/70 Pulse: 92 Respirations: 15 Pulse Ox (%): 96 - Physical Exam General: Alert, In no apparent distress HEENT: Atraumatic, PERRLA, Other (Inflamed tonsils without any exudate or discharge. Uvula also swollen at this time. Tongue also swollen at this time. Swallowing normal along with no drooling noted. No other neurological deficits noted as well.), EOMI Neck: Supple, JVD not distended Respiratory: Clear to auscultation bilaterally, Normal air movement Cardiovascular: Regular rate/rhythm, Normal S1 S2 Gastrointestinal: Normal bowel sounds, No tenderness Musculoskeletal: No tenderness Integumentary: No rashes Neurological: Normal tone, Cranial nerves 3-12 intact, Normal reflexes 2+, Normal affect, Abnormal speech Lymphatics: No axilla or inguinal lymphadenopathy - Studies Laboratory Data (last 24 hrs) 08/06/18 14:30: PT 11.6, INR 0.98 08/06/18 14:30: WBC 11.9 H, Hgb 15.8, Hct 47.9, Plt Count 303 08/06/18 14:30: Sodium 141, Potassium 4.4, BUN 20 H, Creatinine 0.90, Glucose 177 H, Magnesium 2.1, Total Bilirubin 0.2, AST 28, ALT 109 H, Alkaline Phosphatase 48 Microbiology Data (last 24 hrs): 08/06/18 14:30 Throat Culture & Sensitivity - Final 08/06/18 14:30 Throat Group A Streptococcus Rapid Screen - Final 08/06/18 14:30 Nasopharnyx Influenza Type A Antigen Screen - Final 08/06/18 14:30 Nasopharnyx Influenza Type B Antigen Screen - Final Medications List Reviewed: Yes Assessment And Plan - Current Problems (Diagnosis) (1) Anaphylactic reaction Current Visit: Yes Status: Acute Plan: Anaphylactic reaction with tongue swelling and tonsillar swelling secondary to azithromycin -stop Azithromycin at this time -patient status post Decadron in the ER. Currently still with swollen tonsils and uvula. Will go ahead and give Decadron x1 today. -Benadryl 25 q.6 hr p.r.n. at this time -will recheck in 24 hr for any improvement. If improvement noted patient can be discharged home safely. Qualifiers: Encounter type: initial encounter Qualified Code(s): T78.2XXA - Anaphylactic shock, unspecified, initial encounter (2) CAD (coronary artery disease) Onset Date: 03/03/18 Current Visit: No Status: Chronic Qualifiers: Coronary Disease-Associated Artery/Lesion type: [place] artery [place] vs. transplanted heart: [place] heart Associated angina: without angina Qualified Code(s): I25.10 - Atherosclerotic heart disease of [place] coronary artery without angina pectoris (3) COPD (chronic obstructive pulmonary disease) Onset Date: 10/11/17 Current Visit: No Status: Chronic Qualifiers: COPD type: chronic bronchitis Chronic bronchitis type: unspecified Qualified Code(s): J42 - Unspecified chronic bronchitis (4) GERD (gastroesophageal reflux disease) Current Visit: No Status: Chronic Qualifiers: Esophagitis presence: without esophagitis (5) HLD (hyperlipidemia) Onset Date: 10/11/17 Current Visit: No Status: Chronic Qualifiers: Hyperlipidemia type: mixed hyperlipidemia Qualified Code(s): E78.2 - Mixed hyperlipidemia (6) HTN (hypertension) Onset Date: 03/03/18 Current Visit: No Status: Chronic Qualifiers: Hypertension type: essential hypertension (7) Nicotine dependence Onset Date: 10/11/17 Current Visit: No Status: Chronic Qualifiers: Nicotine product type: cigarettes Discharge Plan: Home Plan to discharge in: 48 Hours - Code Status/Comfort Care Code Status Assessed: Yes Critical Care: No
[2018-08-07] MEDS: ALBUTEROL 2.5 MG/3 ML NEB SOL NEB SCH ×2 (14:49→20:12)
[2018-08-07] MEDS: IPRATROPIUM BROM 0.5MG/2.5ML NEB SCH ×2 (14:49→20:12)
[2018-08-07] MEDS ORDERED: CEFTRIAXONE/SWI 1gm 1 GM/10 ML SYR IV SCH (17:00)
[2018-08-07] MEDS: predniSONE 10 MG TAB PO SCH (20:34)
[2018-08-07] MEDS ORDERED: FAMOTIDINE 20 MG TAB PO SCH (21:00)
[2018-08-07] MEDS ORDERED: CETIRIZINE HCL 5 MG TABLET PO SCH (21:00)
[2018-08-07] MEDS ORDERED: ATORVASTATIN 20 MG TAB PO SCH (21:00)
[2018-08-08] MEDS: IPRATROPIUM BROM 0.5MG/2.5ML NEB SCH ×2 (02:05→07:44)
[2018-08-08] MEDS: ALBUTEROL 2.5 MG/3 ML NEB SOL NEB SCH ×2 (02:05→07:44)
[2018-08-08 02:33] VITALS: O2SAT 93
[2018-08-08] MEDS: predniSONE 10 MG TAB PO SCH (08:37)
[2018-08-08 08:53] LABS: Urine Appearance CLEAR; Urine Bilirubin NEGATIVE (NEG); Urine Blood NEGATIVE (NEG); Urine Color YELLOW; Urine Glucose NEGATIVE (NEG); Urine Protein NEGATIVE (NEG); Urine Urobilinogen 0.2 mg/dL (0.2-1.0); Urine pH 6.5 (5.0-7.0)
[2018-08-08] MEDS ORDERED: ASPIRIN EC 81 MG TAB PO SCH (09:00)
[2018-08-08 09:02] LABS: Urine Bacteria NONE SEEN /HPF (NONE SEEN); Urine Culture Reflex Order NOT NEEDED; Urine RBC NONE SEEN /HPF (NONE SEEN)
[2018-08-08 12:41] VITALS: BP 140/61; TEMP 97.9
--- NOTE | 2018-08-09 15:06 | DS ---
Date of Discharge: 08/08/2018 Admitting Diagnoses: 1.Acute chronic obstructive pulmonary disease exacerbation. 2.Chest pain. 3.Coronary artery disease. 4.Gastroesophageal reflux disease. 5.Hyperlipidemia. 6.Hypertension. 7.Nicotine dependence. 8.Noncompliance. 9.Obesity. Discharge Diagnoses: 1.Anaphylactic reaction, likely due to azithromycin, improving, no difficulty breathing or swallowin g, significantly improved. 2.Coronary artery disease, [place] artery and [place] heart without angina. 3.Chronic obstructive pulmonary disease, chronic bronchitis. 4.Gastroesophageal reflux disease without esophagitis. 5.Mixed hyperlipidemia. 6.Essential hypertension. 7.Obesity, BMI greater than 30 secondary to excess calories. 8.Nicotine dependence with cigarette smoking, continuous. 9.Noncompliance. Hospital Course: The patient is a 52-year-old male, does not have a PCP, comes in with swelling of t he tongue related to azithromycin use, which he was given for acute bronchitis. The patient was star meredith on steroids and nebulizer treatments. His antibiotics were switched over to Rocephin. The patie nt overall did well. His head CT scan showed no acute intracranial abnormality. Did have some moder ate paranasal sinus polypoid mucosal thickening. Soft tissue neck CT showed tonsillar enlargement in volving the palatine tonsils, but no abscess. No gross tongue abnormality. Mildly enlarged lymph no vin along the jugular chain, largest on the left, probably representing reactive adenopathy, fluid in both mastoid air cells and moderate mucoperiosteal thickening of the paranasal sinuses. His chest x -ray was clear, did not show any acute changes. The patient's white blood cell count did show some e levation likely due to steroids. The patient's breathing improved significantly. His swelling also improved. His blood cultures did not show any growth. His throat culture and strep screen were nega tive. The patient overall did well. He was then cleared for discharge. Of note, the patient did no t require any supplemental oxygenation upon discharge. He also repeated the go downstairs or leaving his room for smoking, which he was counseled against. Discharge Condition: Stable. Activity: As tolerated. Medications: As per medication reconciliation list. Followup: Establish care with primary care physician in 2 to 3 days. Follow up outpatient with pulm onologist, Dr. Burgess in 2 weeks. Return to ER for worsening condition. Diet: Heart healthy. Physical Examination: General: Awake, alert, oriented x3. Obese male, not in any acute distress. CV: S1, S2. Regular rate and rhythm. Peripheral pulses present. Respiratory: Moving air well bilaterally. No wheezing. Gastrointestinal: Abdomen is soft, nontender, nondistended. Positive bowel sounds. Extremities: No clubbing, cyanosis, or edema. Neurologic: Nonfocal. SA/MODL Voice ID: [id number] Report ID: [id number]
== END 2018-08-08 13:14 | disposition home or self-care (01) | DRG 916 ==
LOC: ER 12:12 → ERHOLD 20:54 → 2ND 08-07 07:34 → OBSVTOIN 08-07 17:40
PROVIDERS: ADMIT Hospitalist; ATTEND Family Medicine
DX: T88.6XXA Anaphylactic reaction due to adverse effect of correct drug or medicament properly administered, initial encounter (principal); Z68.41 Body mass index [BMI] 40.0-44.9, adult; R22.0 Localized swelling, mass and lump, head; Y92.019 Unspecified place in single-family (private) house as the place of occurrence of the external cause; J44.9 Chronic obstructive pulmonary disease, unspecified; F17.210 Nicotine dependence, cigarettes, uncomplicated; I25.10 Atherosclerotic heart disease of native coronary artery without angina pectoris; K21.9 Gastro-esophageal reflux disease without esophagitis; E78.2 Mixed hyperlipidemia; I10 Essential (primary) hypertension; E66.9 Obesity, unspecified; J33.8 Other polyp of sinus; R59.0 Localized enlarged lymph nodes; I25.2 Old myocardial infarction; Z91.14 Patient's other noncompliance with medication regimen; T36.3X5A Adverse effect of macrolides, initial encounter
CPT/HCPCS: 36415; 70450; 70491; 71046; 80048; 80053; 80076; 81001; 82805; 83735; 83880; 84484; 85025; 85610; 87040; 87070; 87081; 87804; 93005; 94640; 94660; 94760; 99285; G0378; J0696; J2930; J3475; J7030; J7512; Q9967

== ENCOUNTER 2018-08-10 08:09 | Emergency (ER) | payer SELFPAY ==
--- OUTSIDE RECORDS SUMMARY | 2018-08-10 08:11 | XMS REPORT ---
:1965 [facility] Address [address] [place] [address] Dr. Fierro [address] [place] [id number] Care Team Providers Name Role Phone Unavailable Unavailable Unavailable Problems This patient has no known problems. Allergies, Adverse Reactions, Alerts This patient has no known allergies or adverse reactions. Medications This patient has no known medications.
[2018-08-10 08:46] LABS: Urine Blood NEGATIVE (NEG); Urine Glucose NEGATIVE (NEG); Urine Protein NEGATIVE (NEG)
[2018-08-10] MEDS ORDERED: ONDANSETRON 4 MG/2 ML VIAL ONE (09:10)
[2018-08-10] MEDS ORDERED: NA CHLORIDE 0.9% 1,000 ML ONE (09:10)
[2018-08-10 09:11] LABS: Absolute Lymphocytes (CBC) 1.6 K/uL (0.7-4.9); Absolute Monocytes 0.8 K/uL (0.1-1.3); Absolute Neutrophil 11.1 K/uL (1.8-8.0); Basophils % 0.7 % (0-1.3); Hematocrit 48.4 % (39.6-49.0); Lymphocytes % 11.9 % (15.3-44.8); MPV 9.1 fL (7.6-11.3); Monocytes % 5.6 % (3.3-12.3); RBC Red Blood Cell Count 5.37 M/uL (4.33-5.43)
[2018-08-10 09:39] LABS: ALT/SGPT 89 U/L (12-78); AST/SGOT 22 U/L (15-37); Albumin 3.5 g/dL (3.4-5.0); Alkaline Phosphatase 47 U/L (45-117); BUN Blood Urea Nitrogen 15 mg/dL (7-18); Bicarbonate 27 mmol/L (21-32); Bilirubin Direct < 0.1 mg/dL (0-0.2); Bilirubin Total 0.2 mg/dL (0.2-1.0); Glucose Level 143 mg/dL (74-106); Lipase 156 U/L (73-393); Potassium 4.1 mmol/L (3.5-5.1); Protein, Total 6.7 g/dL (6.4-8.2); Sodium Level 140 mmol/L (136-145)
--- NOTE | 2018-08-10 10:49 | RAD REPORT ---
EXAM DESCRIPTION: CTAbdomen Pelvis W Contrast - 08/10/2018 10:38 am CLINICAL HISTORY: Abdominal pain. bloody stools;Abd pain COMPARISON: No comparisons TECHNIQUE: Biphasic CT imaging of the abdomen and pelvis was performed with 100 ml non-ionic IV cont rast. All CT scans are performed using dose optimization technique as appropriate and may include automated exposure control or mA/KV adjustment according to patient size. FINDINGS: The lung bases are clear. The liver, spleen, pancreas, adrenal glands and kidneys are within normal limits. Small bilateral cor tical renal cysts. No bowel obstruction, free air, free fluid or abscess. Diverticulosis is present of the sigmoid colon without diverticulitis. The appendix is normal. No evidence of significant lymphadenopathy. Small r ight fat containing inguinal hernia. No suspicious bony findings. IMPRESSION: No acute intra-abdominal or pelvic finding. Diverticulosis coli without diverticulitis.
--- NOTE | 2018-08-10 11:58 | ER ---
Nurse's Notes [facility] Name: Juan Miguel Langston Age: 52 yrs Sex: Male : 1965 Arrival Date: 08/10/2018 Time: 08:11 Bed 8 Private MD: None, None Diagnosis: Blood in stool;abdominal pain Presentation: 08/10 08:31 Presenting complaint: Patient states: Bloody stools since yesterday morning, reports ph blood in toilet w/ stools of normal consistency, also reports diffuse abdominal pain, denies N/V or dizziness, reports SOB, states, " I'm always short of breath though.". Transition of care: patient was not received from another setting of care. Onset of symptoms was August 10, 2018. Risk Assessment: Do you want to hurt yourself or someone else? Patient reports no desire to harm self or others. Initial Sepsis Screen: Does the patient meet any 2 criteria? No. Patient's initial sepsis screen is negative. Does the patient have a suspected source of infection? No. Patient's initial sepsis screen is negative. Care prior to arrival: None. 08:31 Method Of Arrival: Ambulatory ph 08:31 Acuity: DESTINY 3 ph Historical: - Allergies: 08:37 Metoprolol Tartrate; ph 08:37 Azithromycin; ph - Home Meds: 08:37 amlodipine 5 mg tab 1 tab once daily [Active]; aspirin 81 mg Oral chew 1 tab once daily ph [Active]; fluticasone-salmeterol inhalation [Active]; lisinopril 20 mg Oral tab 1 tab once daily [Active]; nitroglycerin 0.4 mg SL subl 1 tab every 5 minutes [Active]; pantoprazole 40 mg Oral TbEC 1 tab once daily [Active]; ProAir HFA inhalation [Active]; - PMHx: 08:37 Angina; High Cholesterol; Hypertension; Myocardial infarction; ph - PSHx: 08:37 None; ph - Immunization history:: Adult Immunizations unknown. - Social history:: Smoking status: Patient uses tobacco products, "vapes". - Ebola Screening: : No symptoms or risks identified at this time. - Family history:: not pertinent. - Hospitalizations: : No recent hospitalization is reported. Screenin:41 Abuse screen: Denies threats or abuse. Denies injuries from another. Nutritional ph screening: No deficits noted. Tuberculosis screening: No symptoms or risk factors identified. Fall Risk None identified. Assessment: 08:41 General: Appears in no apparent distress. uncomfortable, obese, Behavior is calm, ph cooperative, appropriate for age, Denies fever, chills. Pain: Complains of pain in abdomen Pain currently is 9 out of 10 on a pain scale. Quality of pain is described as tender, "sore" Pain began 2-3 days ago. Neuro: Level of Consciousness is awake, alert, obeys commands, Oriented to person, place, time, situation, Denies dizziness. Cardiovascular: Capillary refill < 3 seconds in bilateral fingers Patient's skin is warm and dry. Respiratory: Airway is patent Respiratory effort is even, unlabored, Respiratory pattern is tachypnea. GI: Abdomen is round non-distended, Bowel sounds present X 4 quads. Abd is soft X 4 quads Abdomen is tender to palpation X 4 quads. Derm: Skin is intact, Skin is pink, warm \\T\\ dry. Musculoskeletal: Circulation, motion, and sensation intact. Range of motion: intact in all extremities. 09:13 Reassessment: Patient appears in no apparent distress at this time. Patient and/or ph family updated on plan of care and expected duration. Pain level reassessed. Patient is alert, oriented x 3, equal unlabored respirations, skin warm/dry/pink. Pt resting quietly, awaiting CT scan, SO at bedsidde. 10:00 Reassessment: Patient appears in no apparent distress at this time. Patient and/or ph family updated on plan of care and expected duration. Pain level reassessed. Patient is alert, oriented x 3, equal unlabored respirations, skin warm/dry/pink. Pt ambulated to restroom, gait steady. 11:00 Reassessment: Patient appears in no apparent distress at this time. Patient and/or ph family updated on plan of care and expected duration. Pain level reassessed. Patient is alert, oriented x 3, equal unlabored respirations, skin warm/dry/pink. Vital Signs: 08:34 BP 158 / 90; Pulse 95; Resp 24; Temp 98.5; Pulse Ox 96% on R/A; Weight 110.22 kg; ph Height 5 ft. 6 in. (167.64 cm); Pain 9/10; 09:13 BP 144 / 82; Pulse 93; Resp 22; Pulse Ox 98% on R/A; ph 10:23 BP 145 / 87; Pulse 82; Resp 18; Pulse Ox 92% on R/A; ph 11:30 BP 136 / 87; Pulse 87; Resp 14; Pulse Ox 96% ; ph 12:39 BP 139 / 79; Pulse 84; Resp 18; Temp 97.9; Pulse Ox 98% on R/A; ph 08:34 Body Mass Index 39.22 (110.22 kg, 167.64 cm) ph 10:23 pt asleep, Spo2 increases when awakened ph ED Course: 08:11 Patient arrived in ED. mr 08:12 None, None is Private Physician. mr 08:19 Varghese Sow MD is Attending Physician. wa 08:33 Triage completed. ph 08:40 Arm band placed on. ph 08:41 Patient has correct armband on for positive identification. Placed in gown. Bed in low ph position. Call light in reach. Side rails up X 1. Pulse ox on. NIBP on. Warm blanket given. 08:56 Frida Leyva, RN is Primary Nurse. ph 09:03 Initial lab(s) drawn, by pa, Urine collected: clean catch specimen, clear. Inserted ms saline lock: 20 gauge in right antecubital area, using aseptic technique. Blood collected. 10:33 CT completed. Patient tolerated procedure well. Patient moved to CT via wheelchair. [id number] Patient moved back from CT. 10:39 CT Abd/Pelvis - W/Contrast In Process Unspecified. EDMS 11:57 Varghese Heck MD is Referral Physician. wa 12:39 No provider procedures requiring assistance completed. IV discontinued, intact, ph bleeding controlled, No redness/swelling at site. Pressure dressing applied. Administered Medications: 09:02 Drug: NS 0.9% 1000 ml Route: IV; Rate: 1 bolus; Site: right antecubital; ph 12:41 Follow up: Response: No adverse reaction; IV Status: Completed infusion ph 09:03 Drug: Zofran 4 mg Route: IVP; Site: right antecubital; ph 12:42 Follow up: Response: No adverse reaction ph Outcome: 11:57 Discharge ordered by . wa 12:40 Discharged to home ambulatory, with significant other. ph 12:40 Condition: good 12:40 Discharge instructions given to patient, Instructed on discharge instructions, follow up and referral plans. medication usage, Demonstrated understanding of instructions, follow-up care, medications, Prescriptions given X 1. 12:44 Patient left the ED. ph Signatures: Dispatcher [employer] EDTish Heard mr Vishal, Fátima ms Leyva, NICCI Galicia RN ph [facility], MD MD woodrow Kwong, Krupa jg6
--- NOTE | 2018-08-10 11:59 | EDPHYS ---
Physician Documentation [facility] Name: Juan Miguel Langston Age: 52 yrs Sex: Male : 1965 Arrival Date: 08/10/2018 Time: 08:11 Bed 8 Private MD: None, None ED Physician Varghese Sow HPI: 08/10 09:19 This 52 yrs old Male presents to ER via Ambulatory with complaints of Bloody wa Stools. 09:19 The patient presents to the emergency department with rectal bleeding, a moderate wa amount, bright red blood with bowel movement, 4 times since symptom onset. Onset: The symptoms/episode began/occurred yesterday. Abdominal pain: described as achy, located in the diffuse, mild. Modifying factors: The symptoms are alleviated by nothing, the symptoms are aggravated by nothing. Associated signs and symptoms: Pertinent negatives: chest pain, diarrhea, dizziness at rest, dizziness when standing, fever, shortness of breath, syncope, vomiting. Severity of symptoms: At their worst the symptoms were moderate in the emergency department the symptoms are unchanged. The patient has not experienced similar symptoms in the past. The patient has not recently seen a physician. Historical: - Allergies: 08:37 Metoprolol Tartrate; ph 08:37 Azithromycin; ph - Home Meds: 08:37 amlodipine 5 mg tab 1 tab once daily [Active]; aspirin 81 mg Oral chew 1 tab once daily ph [Active]; fluticasone-salmeterol inhalation [Active]; lisinopril 20 mg Oral tab 1 tab once daily [Active]; nitroglycerin 0.4 mg SL subl 1 tab every 5 minutes [Active]; pantoprazole 40 mg Oral TbEC 1 tab once daily [Active]; ProAir HFA inhalation [Active]; - PMHx: 08:37 Angina; High Cholesterol; Hypertension; Myocardial infarction; ph - PSHx: 08:37 None; ph - Immunization history:: Adult Immunizations unknown. - Social history:: Smoking status: Patient uses tobacco products, "vapes". - Ebola Screening: : No symptoms or risks identified at this time. - Family history:: not pertinent. - Hospitalizations: : No recent hospitalization is reported. ROS: 09:20 Constitutional: Negative for fever, chills, and weight loss, Eyes: Negative for injury, wa pain, redness, and discharge, ENT: Negative for injury, pain, and discharge, Neck: Negative for injury, pain, and swelling, Cardiovascular: Negative for chest pain, palpitations, and edema, Respiratory: Negative for shortness of breath, cough, wheezing, and pleuritic chest pain, Back: Negative for injury and pain, : Negative for injury, bleeding, discharge, and swelling, MS/Extremity: Negative for injury and deformity, Skin: Negative for injury, rash, and discoloration, Neuro: Negative for headache, weakness, numbness, tingling, and seizure, Psych: Negative for depression, anxiety, suicide ideation, homicidal ideation, and hallucinations. 09:20 Abdomen/GI: Positive for rectal bleeding, Negative for nausea and vomiting, vomiting, diarrhea. Exam: 09:21 Constitutional: This is a well developed, well nourished patient who is awake, alert, wa and in no acute distress. Head/Face: Normocephalic, atraumatic. Eyes: Pupils equal round and reactive to light, extra-ocular motions intact. Lids and lashes normal. Conjunctiva and sclera are non-icteric and not injected. Cornea within normal limits. Periorbital areas with no swelling, redness, or edema. ENT: Nares patent. No nasal discharge, no septal abnormalities noted. Tympanic membranes are normal and external auditory canals are clear. Oropharynx with no redness, swelling, or masses, exudates, or evidence of obstruction, uvula midline. Mucous membranes moist. Neck: Trachea midline, no thyromegaly or masses palpated, and no cervical lymphadenopathy. Supple, full range of motion without nuchal rigidity, or vertebral point tenderness. No Meningismus. Chest/axilla: Normal chest wall appearance and motion. Nontender with no deformity. No lesions are appreciated. Cardiovascular: Regular rate and rhythm with a normal S1 and S2. No gallops, murmurs, or rubs. Normal PMI, no JVD. No pulse deficits. Respiratory: Lungs have equal breath sounds bilaterally, clear to auscultation and percussion. No rales, rhonchi or wheezes noted. No increased work of breathing, no retractions or nasal flaring. Back: No spinal tenderness. No costovertebral tenderness. Full range of motion. Male : Normal genitalia with no discharge or lesions. Skin: Warm, dry with normal turgor. Normal color with no rashes, no lesions, and no evidence of cellulitis. MS/ Extremity: Pulses equal, no cyanosis. Neurovascular intact. Full, normal range of motion. Neuro: Awake and alert, GCS 15, oriented to person, place, time, and situation. Cranial nerves II-XII grossly intact. Motor strength 5/5 in all extremities. Sensory grossly intact. Cerebellar exam normal. Normal gait. Psych: Awake, alert, with orientation to person, place and time. Behavior, mood, and affect are within normal limits. 09:21 Abdomen/GI: Inspection: abdomen appears normal, Bowel sounds: hyperactive, in all quadrants, Palpation: abdomen is soft and non-tender, in all quadrants, Rectal exam: rectal tone normal, Stool: guaiac negative, hemorrhoid(s), are not appreciated, mass, is not appreciated, tenderness, is not appreciated, the exam is chaperoned by the nurse. Vital Signs: 08:34 BP 158 / 90; Pulse 95; Resp 24; Temp 98.5; Pulse Ox 96% on R/A; Weight 110.22 kg; ph Height 5 ft. 6 in. (167.64 cm); Pain 9/10; 09:13 BP 144 / 82; Pulse 93; Resp 22; Pulse Ox 98% on R/A; ph 10:23 BP 145 / 87; Pulse 82; Resp 18; Pulse Ox 92% on R/A; ph 11:30 BP 136 / 87; Pulse 87; Resp 14; Pulse Ox 96% ; ph 12:39 BP 139 / 79; Pulse 84; Resp 18; Temp 97.9; Pulse Ox 98% on R/A; ph 08:34 Body Mass Index 39.22 (110.22 kg, 167.64 cm) ph 10:23 pt asleep, Spo2 increases when awakened ph MDM: 08:19 Patient medically screened. wa 09:22 Differential diagnosis: c/o rectal bleeding. yellowish, guaiac negative stool noted wa however. will CT and reassess. 10:54 Data reviewed: vital signs, nurses notes. Test interpretation: by ED physician or wa midlevel provider: labs noted for elevated wbc of 13.7 AST of 89. mild glucose elevation of 143. CT abd/pelvis: no acute process. diverticulosis. no acute diverticulitis. Response to treatment: the patient's symptoms have markedly improved after treatment. Special discussion: no anemia. yellow stools on assessment with negative guaiac. . 11:48 Special discussion: will have f/u closely with GI. . ms 08/10 08:26 Order name: Urine Dipstick--Ancillary (enter results); Complete Time: 09:56 08/10 08:55 Order name: Basic Metabolic Panel; Complete Time: 09:56 ms 08/10 08:55 Order name: CBC with Diff; Complete Time: 09:56 ms 08/10 08:55 Order name: Hepatic Function; Complete Time: 09:56 ms 08/10 08:55 Order name: Lipase; Complete Time: 09:56 ms 08/10 08:55 Order name: CT Abd/Pelvis - W/Contrast; Complete Time: 10:52 ms 08/10 08:55 Order name: IV Saline Lock; Complete Time: 09:03 ms 08/10 08:55 Order name: Labs collected and sent; Complete Time: 09:03 ms Administered Medications: 09:02 Drug: NS 0.9% 1000 ml Route: IV; Rate: 1 bolus; Site: right antecubital; ph 12:41 Follow up: Response: No adverse reaction; IV Status: Completed infusion ph 09:03 Drug: Zofran 4 mg Route: IVP; Site: right antecubital; ph 12:42 Follow up: Response: No adverse reaction ph Disposition: 08/10/18 11:57 Discharged to Home. Impression: Blood in stool, abdominal pain. - Condition is Stable. - Prescriptions for Zofran 4 mg Oral Tablet - take 1 tablet by ORAL route every 12 hours As needed; 20 tablet. - Medication Reconciliation Form, Thank You Letter, Antibiotic Education, Prescription Opioid Use form. - Follow up: Varghese Heck MD; When: 1 - 2 days; Reason: Recheck today's complaints. - Problem is new. - Symptoms have improved. - Notes: do not take aspirin. follow up with the gastro doctor within 2 days for further evaluation of blood in stool. return here immediately if symptoms rapidly worsening otherwise Signatures: Dispatcher [employer] Frida Ochoa RN RN ph Varghese Sow MD MD ms Corrections: (The following items were deleted from the chart) 12:44 11:57 08/10/2018 11:57 Discharged to Home. Impression: Blood in stool; abdominal pain. ph Condition is Stable. Forms are Medication Reconciliation Form, Thank You Letter, Antibiotic Education, Prescription Opioid Use. Follow up: Varghese Heck; When: 1 - 2 days; Reason: Recheck today's complaints. Problem is new. Symptoms have improved. wa
[2018-08-10 13:05] VITALS: BP 139/79; TEMP 97.9; O2SAT 98
== END 2018-08-10 12:44 | disposition home or self-care (01) ==
LOC: ER 08:09
DX: R10.9 Unspecified abdominal pain (principal); I10 Essential (primary) hypertension; E78.00 Pure hypercholesterolemia, unspecified; I25.2 Old myocardial infarction; Z72.0 Tobacco use; Z79.82 Long term (current) use of aspirin; Z88.3 Allergy status to other anti-infective agents; Z88.8 Allergy status to other drugs, medicaments and biological substances
CPT/HCPCS: 36415; 74177; 80048; 80076; 81003; 83690; 85025; 96361; 96374; 99284; J2405; J7030; Q9967

== ENCOUNTER 2018-09-20 16:37 | Emergency (ER) | payer OTHER, SELFPAY ==
--- OUTSIDE RECORDS SUMMARY | 2018-09-20 16:39 | XMS REPORT ---
:1965 [facility] Address [address] [place] [address] Dr. F[address]ro [address] [place] [id number] Care Team Providers Name Role Phone Unavailable Unavailable Unavailable Problems This patient has no known problems. Allergies, Adverse Reactions, Alerts This patient has no known allergies or adverse reactions. Medications This patient has no known medications.
[2018-09-20] MEDS ORDERED: LIDOCAINE 1% MPF 5 ML VIAL ONE (17:21)
[2018-09-20] MEDS ORDERED: ALBUTEROL 2.5 MG/3 ML NEB SOL ONE (17:30)
[2018-09-20] MEDS ORDERED: IPRATROPIUM BROM 0.5MG/2.5ML ONE (17:30)
[2018-09-20] MEDS ORDERED: predniSONE 20 MG TAB ONE (17:30)
--- NOTE | 2018-09-20 18:33 | EDPHYS ---
Physician Documentation [facility] Name: Juan Miguel Langston Age: 53 yrs Sex: Male : 1965 Arrival Date: 09/20/2018 Time: 16:38 Bed 19 Private MD: ED Physician Lenard Rosario HPI: 09/20 17:06 This 53 yrs old Male presents to ER via Ambulatory with complaints of cp Breathing Difficulty, Leg Pain. 17:06 The patient has shortness of breath at rest. cp 17:06 Onset: The symptoms/episode began/occurred today. Associated signs and symptoms: cp Pertinent positives: pain in legs, Pertinent negatives: chest pain, productive cough, diaphoresis, fever, numbness in extremities. Severity of symptoms: in the emergency department the symptoms are unchanged. The patient has experienced similar episodes in the past. Historical: - Allergies: 16:52 Azithromycin; sv 16:52 Metoprolol Tartrate; sv - Home Meds: 16:52 lisinopril 20 mg Oral tab 1 tab once daily [Active]; atorvastatin oral oral [Active]; sv detirizine [Active]; Famotidine Oral [Active]; ProAir HFA inhalation [Active]; Dulera inhalation inhalation [Active]; - PMHx: 16:52 Angina; High Cholesterol; Hypertension; Myocardial infarction; Diabetes - NIDDM; COPD; sv Sleep Apnea; - PSHx: 16:52 None; sv - Immunization history:: Adult Immunizations up to date. - Social history:: Smoking status: Patient uses tobacco products, smokes one pack cigarettes per day. - Ebola Screening: : Patient denies exposure to infectious person Patient denies travel to an Ebola-affected area in the 21 days before illness onset. ROS: 17:20 Constitutional: Negative for body aches, chills, fever, poor PO intake. cp 17:20 Eyes: Negative for injury, pain, redness, and discharge. cp 17:20 ENT: Negative for drainage from ear(s), ear pain, sore throat, difficulty swallowing, difficulty handling secretions. 17:20 Cardiovascular: Negative for chest pain, edema, palpitations. 17:20 Respiratory: Positive for shortness of breath, Negative for cough, wheezing. 17:20 Abdomen/GI: Negative for abdominal pain, nausea, vomiting, and diarrhea. 17:20 Back: Negative for pain at rest, pain with movement, radiated pain. 17:20 MS/extremity: Positive for pain, of the left leg and right leg, Negative for injury or acute deformity. 17:20 Skin: Negative for rash. 17:20 Neuro: Negative for altered mental status, headache, syncope, weakness. 17:20 All other systems are negative. Exam: 17:25 Constitutional: The patient appears in no acute distress, alert, awake, cp non-diaphoretic, non-toxic, well developed, well nourished. 17:25 Head/Face: Normocephalic, atraumatic. cp 17:25 Eyes: Periorbital structures: appear normal, Pupils: equal, round, and reactive to light and accomodation, Extraocular movements: intact throughout, Conjunctiva: normal, no exudate, no injection, Sclera: no appreciated abnormality, Lids and lashes: appear normal, bilaterally. 17:25 ENT: External ear(s): are unremarkable, Ear canal(s): are normal, clear, TM's: bulging, is not appreciated, bilaterally, dullness, bilaterally, erythema, is not appreciated, bilaterally, Nose: is normal, Mouth: Lips: moist, Oral mucosa: moist, Posterior pharynx: Airway: normal, Tonsils: are normal in appearance, swelling, is not appreciated, erythema, is not appreciated, exudate, is not appreciated. 17:25 Chest/axilla: Inspection: normal, Palpation: is normal, no crepitus, no tenderness. 17:25 Cardiovascular: Rate: normal, Rhythm: regular, Pulses: Pulses are 2+ in right radial artery and left radial artery. Edema: is not appreciated, JVD: is not appreciated. 17:25 Respiratory: the patient does not display signs of respiratory distress, Respirations: normal, Breath sounds: bronchial sounds, that are mild, are heard diffusely, decreased breath sounds, are not appreciated, stridor, is not appreciated, + upper airway congestion. 17:25 Abdomen/GI: Inspection: obese Palpation: abdomen is soft and non-tender, in all quadrants. 17:25 Back: pain, is absent, ROM is normal. 17:25 Skin: cellulitis, is not appreciated, no rash present. 17:25 Neuro: Orientation: to person, place \T\ time. Mentation: is normal, Cerebellar function: is grossly normal, Motor: moves all fours, strength is normal, Sensation: is normal. Vital Signs: 16:52 BP 143 / 72; Pulse 97; Resp 20; Temp 99.4; Pulse Ox 94% ; Weight 112.49 kg; Height 5 sv ft. 6 in. (167.64 cm); 18:36 Pulse 87; Resp 19; Pulse Ox 98% on R/A; ss 16:52 Body Mass Index 40.03 (112.49 kg, 167.64 cm) sv MDM: 16:59 Patient medically screened. rambo 17:20 Differential diagnosis: asthma, Bronchitis CHF exacerbation, Chronic Obstructive cp Pulmonary Disease Myocardial Infarction pneumonia. 18:30 Data reviewed: vital signs, nurses notes, I have discussed the patient's cp presentation/case with the attending Emergency Department Physician; and as a result, I will discharge patient. 18:30 Counseling: I had a detailed discussion with the patient and/or guardian regarding: the cp historical points, exam findings, and any diagnostic results supporting the discharge/admit diagnosis, to return to the emergency department if symptoms worsen or persist or if there are any questions or concerns that arise at home. Response to treatment: the patient's symptoms have markedly improved after treatment, and as a result, I will discharge patient. Administered Medications: 17:24 Drug: Albuterol - atroVENT (3:1) (2.5 mg - 0.5 mg) 3 ml Route: Nebulizer; ss 18:39 Follow up: Response: No adverse reaction; Marked relief of symptoms ss 17:25 Not Given (Pt refused): predniSONE 60 mg PO once ss Disposition: 09/21 08:23 Co-signature as Attending Physician, Lenard Rosario MD I agree with the assessment and rambo plan of care. Disposition: 09/20/18 18:32 Discharged to Home. Impression: Chronic obstructive pulmonary disease with (acute) exacerbation. - Condition is Stable. - Discharge Instructions: Chronic Obstructive Pulmonary Disease Exacerbation. - Prescriptions for Prednisone 20 mg Oral Tablet - take 2 tablet by ORAL route once daily for 5 days; 10 tablet. Albuterol Sulfate 90 mcg/actuation - inhale 1-2 puff by INHALATION route every 4-6 hours; 1 Inhaler. - Medication Reconciliation Form, Thank You Letter, Antibiotic Education, Prescription Opioid Use form. - Follow up: Private Physician; When: 1 - 2 days; Reason: Recheck today's complaints. - Problem is an acute exacerbation. - Symptoms have improved. Signatures: Nilda Olea RN RN sv Anderson, Corey, MD MD cha Smirch, Shelby, RN RN ss Page, Corey, PA PA cp Corrections: (The following items were deleted from the chart) 09/20 18:38 18:32 09/20/2018 18:32 Discharged to Home. Impression: Chronic obstructive pulmonary ss disease with (acute) exacerbation. Condition is Stable. Forms are Medication Reconciliation Form, Thank You Letter, Antibiotic Education, Prescription Opioid Use. Follow up: Private Physician; When: 1 - 2 days; Reason: Recheck today's complaints. Problem is an acute exacerbation. Symptoms have improved. cp
--- NOTE | 2018-09-20 18:33 | ER ---
Nurse's Notes [facility] Name: Juan Miguel Langston Age: 53 yrs Sex: Male : 1965 Arrival Date: 09/20/2018 Time: 16:38 Bed 19 Private MD: Diagnosis: Chronic obstructive pulmonary disease with (acute) exacerbation Presentation: 09/20 16:49 Presenting complaint: Patient states: dyspnea, BLE pain (chronic neuropathy pain) x a sv few weeks. Transition of care: patient was not received from another setting of care. Onset of symptoms is unknown. Care prior to arrival: None. 16:49 Method Of Arrival: Ambulatory sv 16:49 Acuity: DESTINY 3 sv 17:00 Risk Assessment: Do you want to hurt yourself or someone else? Patient reports no ss desire to harm self or others. Initial Sepsis Screen: Does the patient meet any 2 criteria? No. Patient's initial sepsis screen is negative. Does the patient have a suspected source of infection? No. Patient's initial sepsis screen is negative. Historical: - Allergies: 16:52 Azithromycin; sv 16:52 Metoprolol Tartrate; sv - Home Meds: 16:52 lisinopril 20 mg Oral tab 1 tab once daily [Active]; atorvastatin oral oral [Active]; sv detirizine [Active]; Famotidine Oral [Active]; ProAir HFA inhalation [Active]; Dulera inhalation inhalation [Active]; - PMHx: 16:52 Angina; High Cholesterol; Hypertension; Myocardial infarction; Diabetes - NIDDM; COPD; sv Sleep Apnea; - PSHx: 16:52 None; sv - Immunization history:: Adult Immunizations up to date. - Social history:: Smoking status: Patient uses tobacco products, smokes one pack cigarettes per day. - Ebola Screening: : Patient denies exposure to infectious person Patient denies travel to an Ebola-affected area in the 21 days before illness onset. Screenin:17 Abuse screen: Denies threats or abuse. Denies injuries from another. Nutritional ss screening: No deficits noted. Tuberculosis screening: No symptoms or risk factors identified. Never had TB. Fall Risk None identified. Assessment: 17:00 General: Appears in no apparent distress. comfortable, Behavior is calm, cooperative. ss Pain: Complains of pain in right leg and left leg Pain currently is 7 out of 10 on a pain scale. Quality of pain is described as aching, Pain began "weeks" pt reports this is chronic neuropathy pain. Is continuous. Neuro: Level of Consciousness is awake, alert, obeys commands, Oriented to person, place, time, situation. Cardiovascular: Capillary refill < 3 seconds is brisk in bilateral Rhythm is regular. Respiratory: Airway is patent Respiratory effort is even, unlabored, Respiratory pattern is regular, symmetrical, Breath sounds are diminished in right posterior lower lobe. Respiratory: Reports shortness of breath since x a "few weeks". GI: Patient currently denies diarrhea, nausea, vomiting. EENT: Nares are clear Oral mucosa is moist. Derm: Skin is intact, is healthy with good turgor, Skin is dry, Skin is pink, warm \\T\\ dry. normal. Musculoskeletal: Circulation, motion, and sensation intact. Range of motion: intact in all extremities, Swelling absent. 18:15 Reassessment: after neb treatment pt reports he is feeling much better. Pt appears to ss fall asleep very easily and states that since he is homeless and has been hurting, he has not been able to get much sleep. 18:36 Reassessment: Pt again refused prednisone and is upset because he could not be admitted ss for a sleep test. After giving explanation by myself and ADIEL Arevalo, patient is still upset and wants to be discharged home. Vital Signs: 16:52 BP 143 / 72; Pulse 97; Resp 20; Temp 99.4; Pulse Ox 94% ; Weight 112.49 kg; Height 5 sv ft. 6 in. (167.64 cm); 18:36 Pulse 87; Resp 19; Pulse Ox 98% on R/A; ss 16:52 Body Mass Index 40.03 (112.49 kg, 167.64 cm) sv ED Course: 16:38 Patient arrived in ED. mr 16:50 Triage completed. sv 16:56 Lenard Gray PA is PHCP. cp 16:56 Lenard Rosario MD is Attending Physician. cp 17:00 Arm band placed on right wrist. ss 17:08 Lilia Roche, NICCI is Primary Nurse. ss 18:17 Patient has correct armband on for positive identification. Bed in low position. Call ss light in reach. 18:23 No provider procedures requiring assistance completed. Patient did not have IV access ss during this emergency room visit. Administered Medications: 17:24 Drug: Albuterol - atroVENT (3:1) (2.5 mg - 0.5 mg) 3 ml Route: Nebulizer; ss 18:39 Follow up: Response: No adverse reaction; Marked relief of symptoms ss 17:25 Not Given (Pt refused): predniSONE 60 mg PO once ss Outcome: 18:32 Discharge ordered by MD. cp 18:36 Discharged to home ambulatory, with family. ss 18:36 Condition: good 18:36 Discharge instructions given to patient, family, Instructed on discharge instructions, follow up and referral plans. medication usage, Demonstrated understanding of instructions, follow-up care, medications, Prescriptions given X 2. 18:38 Patient left the ED. ss Signatures: Nilda Olea RN NICCI Tish Stewart Shelby, RN RN ss Page, Corey, ADIEL CHUN cp Corrections: (The following items were deleted from the chart) 18:21 18:17 General: Appears in no apparent distress. comfortable, Behavior is calm, ss cooperative, ss 18:21 18:17 Pain: Complains of pain in right leg and left leg Pain currently is 7 out of 10 ss on a pain scale. Quality of pain is described as aching, Pain began "weeks" pt reports this is chronic neuropathy pain. Is continuous, ss 18:21 18:17 Neuro: Level of Consciousness is awake, alert, obeys commands, Oriented to ss person, place, time, situation, ss 18:21 18:17 Cardiovascular: Capillary refill < 3 seconds is brisk in bilateral Rhythm is ss regular ss 18:21 18:17 Respiratory: Airway is patent Respiratory effort is even, unlabored, Respiratory ss pattern is regular, symmetrical, Breath sounds are diminished in right posterior lower lobe ss 18:21 18:17 GI: Patient currently denies diarrhea, nausea, vomiting, ss ss 18:21 18:17 Derm: Skin is intact, is healthy with good turgor, Skin is dry, Skin is pink, ss warm \\T\\ dry. normal, ss 18:21 18:17 EENT: Nares are clear Oral mucosa is moist. ss ss 18:21 18:17 Musculoskeletal: Circulation, motion, and sensation intact. Range of motion: ss intact in all extremities, Swelling absent ss 18:21 18:17 Respiratory: Reports shortness of breath since x a "few weeks" ss ss
== END 2018-09-20 18:38 | disposition home or self-care (01) ==
LOC: ER 16:37
DX: J44.1 Chronic obstructive pulmonary disease with (acute) exacerbation (principal); F17.210 Nicotine dependence, cigarettes, uncomplicated; I10 Essential (primary) hypertension; E11.9 Type 2 diabetes mellitus without complications; I25.2 Old myocardial infarction; Z88.3 Allergy status to other anti-infective agents; Z88.8 Allergy status to other drugs, medicaments and biological substances
CPT/HCPCS: 94640; 99284; J7512

== ENCOUNTER 2018-10-07 11:05 | Emergency (ER) | payer SELFPAY ==
--- OUTSIDE RECORDS SUMMARY | 2018-10-07 11:06 | XMS REPORT ---
:1965 [facility] Address [address] [place] [address] Dr. Fierro [address] [place] [id number] Care Team Providers Name Role Phone Unavailable Unavailable Unavailable Problems This patient has no known problems. Allergies, Adverse Reactions, Alerts This patient has no known allergies or adverse reactions. Medications This patient has no known medications.
[2018-10-07] MEDS ORDERED: MECLIZINE HCL 12.5 MG TAB ONE (11:39)
--- NOTE | 2018-10-07 11:44 | RAD REPORT ---
EXAM DESCRIPTION: RAD - Chest Single View - 10/07/2018 11:34 am CLINICAL HISTORY: Weakness, dizziness, shortness of breath COMPARISON: August 2018 TECHNIQUE: AP portable chest image was obtained 1133 hours . FINDINGS: Lungs are clear. Heart and vasculature are normal. No measurable pleural effusion and no p neumothorax. No acute bony abnormality seen. No acute aortic findings suspected. IMPRESSION: No acute cardiopulmonary process. No significant change from comparison.
--- NOTE | 2018-10-07 12:01 | RAD REPORT ---
EXAM DESCRIPTION: CT - Head Brain Wo Cont - 10/07/2018 11:44 am CLINICAL HISTORY: Hypertension, headache, dizziness COMPARISON: None. TECHNIQUE: Axial 5 mm thick images of the head were obtained without IV contrast. All CT scans are performed using dose optimization technique as appropriate and may include automated exposure control or mA/KV adjustment according to patient size. FINDINGS: No intracranial hemorrhage, mass, edema or shift of mid-line structures. No acute infarcti on changes seen. No abnormal extra-axial fluid collections. Ventricles are normal. Mastoid air cells and visualized portions of the paranasal sinuses are clear of acute finding. No acute bony findings. IMPRESSION: Negative non-contrast CT head examination for acute findings. No significant change from comparison.
[2018-10-07 12:12] LABS: Absolute Lymphocytes (CBC) 1.6 K/uL (0.7-4.9); Absolute Monocytes 0.6 K/uL (0.1-1.3); Absolute Neutrophil 4.6 K/uL (1.8-8.0); Basophils % 1.1 % (0-1.3); Eosinophils % 1.1 % (0-4.4); Hematocrit 47.7 % (39.6-49.0); Lymphocytes % 22.6 % (15.3-44.8); MPV 9.5 fL (7.6-11.3); Monocytes % 8.9 % (3.3-12.3); Protime INR 1.02; RBC Red Blood Cell Count 5.31 M/uL (4.33-5.43)
[2018-10-07 12:23] LABS: ALT/SGPT 82 U/L (12-78); AST/SGOT 32 U/L (15-37); Albumin 3.9 g/dL (3.4-5.0); Alkaline Phosphatase 49 U/L (45-117); BUN Blood Urea Nitrogen 12 mg/dL (7-18); Bicarbonate 31 mmol/L (21-32); Bilirubin Direct < 0.1 mg/dL (0-0.2); Bilirubin Total 0.3 mg/dL (0.2-1.0); Glucose Level 98 mg/dL (74-106); Magnesium 1.9 mg/dL (1.8-2.4); NT PRO-BNP 17 pg/mL (<125); Potassium 4.1 mmol/L (3.5-5.1); Protein, Total 7.3 g/dL (6.4-8.2); Sodium Level 141 mmol/L (136-145); Troponin (Emerg Dept Use Only) < 0.02 ng/mL (0.0-0.045)
--- NOTE | 2018-10-07 13:34 | RAD REPORT ---
EXAM DESCRIPTION: CT - Neck Angio - 10/07/2018 1:20 pm CLINICAL HISTORY: Hypertension, headache and dizziness TECHNIQUE: During dynamic enhancement using nonionic IV contrast, axial 2 mm thick images of the nec k were obtained. Sagittal and axial reconstruction images were generated using maximum intensity proj ection protocol and reviewed. All CT scans are performed using dose optimization technique as appropriate and may include automated exposure control or mA/KV adjustment according to patient size. COMPARISON: CT head same date FINDINGS: No aneurysm or vascular malformation identified. No carotid or vertebral dissection. No aortic arch or great vessel origin abnormality seen. Vertebral artery origins unremarkable as well . No stenosis, vasculitis or other significant carotid artery finding. No focal abnormality of either vertebral artery. Basilar artery is normal. No soft tissue abnormality identified. Cervical spine degenerative changes are present. There is sign ificant disc space narrowing and endplate spurring changes at C4-5 and C6-7. Multilevel bony foramina l encroachment changes are present. IMPRESSION: Negative CT angio neck examination. Prominent cervical spine degenerative change.
--- NOTE | 2018-10-07 13:37 | RAD REPORT ---
EXAM DESCRIPTION: CT - Head angio - 10/07/2018 1:19 pm TECHNIQUE: During dynamic enhancement using nonionic IV contrast, axial 1 millimeter thick images of the head were obtained. Sagittal and axial reconstruction images were generated using maximum intens ity projection protocol and reviewed. All CT scans are performed using dose optimization technique as appropriate and may include automated exposure control or mA/KV adjustment according to patient size. COMPARISON: CT head same date FINDINGS: No aneurysm or vascular malformation identified. Major venous sinuses are patent. No stenosis, named branch occlusion, vasculitis or other significant vascular finding identifiable. IMPRESSION: Negative CT angio head examination.
--- NOTE | 2018-10-07 15:02 | EDPHYS ---
Physician Documentation [facility] Name: Juan Miguel Langston Age: 53 yrs Sex: Male : 1965 Arrival Date: 10/07/2018 Time: 11:05 Bed 7 Private MD: ED Physician Lenard Rosario HPI: 10/07 11:19 This 53 yrs old Male presents to ER via EMS with complaints of Dizziness, jmm High Blood Pressure. 11:19 The patient presents with dizziness, sense of spinning. Onset: The symptoms/episode jmm began/occurred acutely, today. This is a 53 year old male with a history of dm, COPD, HLP, HTN that presents to the ED with complaints elevated blood pressure beginning earlier today. Patient states he took his blood pressure at B which was elevated. Patient states he took two nitro tablets. Patient states he developed headache with dizziness. Patient also described a cool sensation in his left arm and the left side of his neck. Symptoms have decreased since onset. Patient denies chest pain, denies shortness of breath. . Historical: - Allergies: 11:09 Azithromycin; sv 11:09 Metoprolol Tartrate; sv - Home Meds: 11:09 lisinopril 20 mg Oral tab 1 tab once daily [Active]; nitroglycerin 0.4 mg SL subl 1 tab sv every 5 minutes [Active]; - PMHx: 11:09 Angina; Diabetes - NIDDM; COPD; High Cholesterol; Hypertension; Myocardial infarction; sv Sleep Apnea; - PSHx: 11:09 None; sv - Immunization history:: Adult Immunizations up to date. - Ebola Screening: : No symptoms or risks identified at this time. ROS: 11:19 Constitutional: Negative for fever, chills, and weight loss, Cardiovascular: Negative jmm for chest pain, palpitations, and edema, Respiratory: Negative for shortness of breath, cough, wheezing, and pleuritic chest pain. 11:19 Neuro: Positive for dizziness, headache. 11:19 All other systems are negative. Exam: 11:19 Constitutional: This is a well developed, well nourished patient who is awake, alert, jmm and in no acute distress. Head/Face: atraumatic. Eyes: EOMI, no conjunctival erythema appreciated ENT: Moist Mucus Membranes Neck: Trachea midline, Supple Chest/axilla: Normal chest wall appearance and motion. Cardiovascular: Regular rate and rhythm. No edema appreciated Respiratory: Normal respirations, no respiratory distress appreciated Abdomen/GI: Non distended, soft Skin: General appearance color normal 11:19 Musculoskeletal/extremity: Extremities: all appear grossly normal, with no appreciated pain with palpation, ROM: intact in all extremities, Pulses: are normal with no appreciated deficits, Perfusion: the extremity is normally perfused throughout. 11:19 Neuro: Orientation: is normal, Mentation: is normal, Memory: is normal, Cerebellar function: normal finger to nose testing, heel to conrad testing is normal, able to perform alternating rapid hand movements. 11:19 Psych: Behavior/mood is pleasant, cooperative, anxious. 13:16 ECG was reviewed by the Attending Physician. [facility] Vital Signs: 11:09 BP 172 / 94; Pulse 101; Resp 20; Temp 97.8; Pulse Ox 99% ; Pain 0/10; sv 11:57 BP 145 / 86; Pulse 107; Resp 22; Pulse Ox 95% ; sv 12:37 BP 109 / 49; Pulse 81; Resp 18; Pulse Ox 92% on R/A; sv 13:40 BP 114 / 69; Pulse 91; Resp 16; Pulse Ox 96% on R/A; sv 14:10 BP 122 / 75; Pulse 76 MON; Resp 14; Pulse Ox 97% on R/A; sv 15:30 BP 122 / 77; Pulse 77; Resp 20; Pulse Ox 99% ; sv 14:10 Sinus Rhythm sv MDM: 11:19 Patient medically screened. rambo 14:59 Data reviewed: vital signs, nurses notes. Counseling: I had a detailed discussion with [facility] the patient and/or guardian regarding: the historical points, exam findings, and any diagnostic results supporting the discharge/admit diagnosis, lab results, radiology results, the need for outpatient follow up, to return to the emergency department if symptoms worsen or persist or if there are any questions or concerns that arise at home. ED course: Patient is alert and non toxic in appearance. Dizziness has resolved. Patient able to ambulate without difficulty. PE is not consistent with central cause. Imaging studies negative. Patient advised to follow up with neuro and otherwise given strict return precautions. patient understood and agrees with the plan of care. . 10/07 11:23 Order name: Basic Metabolic Panel; Complete Time: 12:25 [facility] 10/07 11:23 Order name: CBC with Diff; Complete Time: 12:25 [facility] 10/07 11:23 Order name: LFT's; Complete Time: 12:25 [facility] 10/07 11:23 Order name: Magnesium; Complete Time: 12:25 m 10/07 11:23 Order name: NT PRO-BNP; Complete Time: 12:25 m 10/07 11:23 Order name: PT-INR; Complete Time: 12:28 [facility] 10/07 11:23 Order name: Troponin (emerg Dept Use Only); Complete Time: 12:25 [facility] 10/07 11:23 Order name: XRAY Chest (1 view); Complete Time: 11:54 [facility] 10/07 11:23 Order name: EKG; Complete Time: 11:24 [facility] 10/07 11:23 Order name: Cardiac monitoring; Complete Time: 11:38 [facility] 10/07 11:23 Order name: CT Head Brain wo Cont; Complete Time: 12:25 [facility] 10/07 11:55 Order name: Head Angio CT; Complete Time: 13:39 [facility] 10/07 11:55 Order name: Neck Angio CT; Complete Time: 13:39 [facility] 10/07 11:23 Order name: EKG - Nurse/Tech; Complete Time: 12:06 m 10/07 11:23 Order name: IV Saline Lock; Complete Time: 11:57 [facility] 10/07 11:23 Order name: Labs collected and sent; Complete Time: 11:57 [facility] 10/07 11:23 Order name: O2 Per Protocol; Complete Time: 11:38 [facility] 10/07 11:23 Order name: O2 Sat Monitoring; Complete Time: 11:38 jmm EC:16 Rate is 82 beats/min. Rhythm is regular. QRS [place] is Normal. NM interval is normal. QRS jmm interval is normal. QT interval is normal. T waves are Flattened in leads I, III, aVL, aVF. No ST changes noted. Administered Medications: 11:57 Drug: Meclizine 50 mg Route: PO; sv 12:30 Follow up: Response: No adverse reaction sv Disposition: 10/07/18 15:01 Discharged to Home. Impression: Hypertension, Dizziness. - Condition is Stable. - Discharge Instructions: Vertigo. - Medication Reconciliation Form, Thank You Letter, Antibiotic Education, Prescription Opioid Use form. - Follow up: Andrew Gonzalez MD; When: 2 - 3 days; Reason: Recheck today's complaints, Continuance of care, Re-evaluation by your physician. Addendum: 10/09/2018 07:33 Co-signature as Attending Physician, Lenard Rosario MD I agree with the assessment and c boyle plan of care. Signatures: Dispatcher [employer] EDNilda Nguyen RN RN sv Anderson, Corey, MD MD cha Mickail, Joel, PA PA eugene Corrections: (The following items were deleted from the chart) 10/07 15:34 15:01 10/07/2018 15:01 Discharged to Home. Impression: Hypertension; Dizziness. sv Condition is Stable. Forms are Medication Reconciliation Form, Thank You Letter, Antibiotic Education, Prescription Opioid Use. Follow up: Andrew Gonzalez; When: 2 - 3 days; Reason: Recheck today's complaints, Continuance of care, Re-evaluation by your physician. judy
--- NOTE | 2018-10-07 15:02 | ER ---
Nurse's Notes [facility] Name: Juan Miguel Langston Age: 53 yrs Sex: Male : 1965 Arrival Date: 10/07/2018 Time: 11:05 Bed 7 Private MD: Diagnosis: Hypertension;Dizziness Presentation: 10/07 10:59 Presenting complaint: EMS states: pt called after he "felt funny". Pt stated that he sv felt his BP high and took it at [facility] and it was high, so he took 2 Nitroglycerine's and then started feeling dizzy. Pt denied chest pain before or after taking Nitro. c/o headache. Bp 200/100 manual BP, HR-100. Transition of care: patient was not received from another setting of care. Onset of symptoms was October 07, 2018. Risk Assessment: Do you want to hurt yourself or someone else? Patient reports no desire to harm self or others. Initial Sepsis Screen: Does the patient meet any 2 criteria? No. Patient's initial sepsis screen is negative. Does the patient have a suspected source of infection? No. Patient's initial sepsis screen is negative. Care prior to arrival: None. 10:59 Method Of Arrival: EMS: [facility] sv 10:59 Acuity: DESTINY 3 sv Historical: - Allergies: 11:09 Azithromycin; sv 11:09 Metoprolol Tartrate; sv - Home Meds: 11:09 lisinopril 20 mg Oral tab 1 tab once daily [Active]; nitroglycerin 0.4 mg SL subl 1 tab sv every 5 minutes [Active]; - PMHx: 11:09 Angina; Diabetes - NIDDM; COPD; High Cholesterol; Hypertension; Myocardial infarction; sv Sleep Apnea; - PSHx: 11:09 None; sv - Immunization history:: Adult Immunizations up to date. - Ebola Screening: : No symptoms or risks identified at this time. Screenin:58 Abuse screen: Denies threats or abuse. Denies injuries from another. Nutritional sv screening: No deficits noted. Tuberculosis screening: No symptoms or risk factors identified. Fall Risk None identified. Assessment: 11:57 Reassessment: Patient appears in no apparent distress at this time. No changes from sv previously documented assessment. Patient and/or family updated on plan of care and expected duration. Pain level reassessed. Patient is alert, oriented x 3, equal unlabored respirations, skin warm/dry/pink. 13:00 Reassessment: Patient appears in no apparent distress at this time. No changes from sv previously documented assessment. Pt appears to be sleeping with eyes closed and snoring. 14:15 Reassessment: Patient appears in no apparent distress at this time. No changes from sv previously documented assessment. Pt appears to be sleeping with eyes closed, snoring, respirations even and unlabored. 15:31 Reassessment: Patient appears in no apparent distress at this time. No changes from sv previously documented assessment. Patient and/or family updated on plan of care and expected duration. Pain level reassessed. Patient is alert, oriented x 3, equal unlabored respirations, skin warm/dry/pink. Vital Signs: 11:09 BP 172 / 94; Pulse 101; Resp 20; Temp 97.8; Pulse Ox 99% ; Pain 0/10; sv 11:57 BP 145 / 86; Pulse 107; Resp 22; Pulse Ox 95% ; sv 12:37 BP 109 / 49; Pulse 81; Resp 18; Pulse Ox 92% on R/A; sv 13:40 BP 114 / 69; Pulse 91; Resp 16; Pulse Ox 96% on R/A; sv 14:10 BP 122 / 75; Pulse 76 MON; Resp 14; Pulse Ox 97% on R/A; sv 15:30 BP 122 / 77; Pulse 77; Resp 20; Pulse Ox 99% ; sv 14:10 Sinus Rhythm sv ED Course: 11:05 Patient arrived in ED. sv 11:06 Nilda Olea, NICCI is Primary Nurse. sv 11:08 Triage completed. sv 11:14 Carlito Guerrero PA is PHCP. jmm 11:14 Lenard Rosario MD is Attending Physician. jmm 11:15 Arm band placed on. sv 11:15 Patient has correct armband on for positive identification. Bed in low position. Call sv light in reach. Side rails up X2. compliance monitor on. Pulse ox on. NIBP on. Door closed. Head of bed elevated. 11:35 XRAY Chest (1 view) In Process Unspecified. EDMS 11:[address] via wheelchair. sv 11:43 CT completed. Patient tolerated procedure well. Patient moved back from CT. bq 11:44 CT Head Brain wo Cont In Process Unspecified. EDMS 11:55 Initial lab(s) drawn, by me, sent to lab. Inserted saline lock: 20 gauge in right sv antecubital area, using aseptic technique. Blood collected. Flushed right antecubital with 5 ml normal saline. 12:02 EKG done, by ED staff, reviewed by Carlito CHUN. sv 12:06 Radiology exam delayed due to lab results not completed at this time. eh 12:[address] Scan. sv 13:17 CT completed. Patient tolerated procedure well. Patient moved back from CT. bq 13:[address] In Process Unspecified. EDMS 13:[address] In Process Unspecified. EDMS 15:01 Andrew Gonzalez MD is Referral Physician. jm 15:32 No provider procedures requiring assistance completed. IV discontinued, intact, sv bleeding controlled, No redness/swelling at site. Pressure dressing applied. Administered Medications: 11:57 Drug: Meclizine 50 mg Route: PO; sv 12:30 Follow up: Response: No adverse reaction sv Outcome: 15:01 Discharge ordered by . jmm 15:32 Discharged to home ambulatory. sv 15:32 Condition: stable 15:32 Discharge instructions given to patient, Instructed on discharge instructions, follow up and referral plans. not to take his Nitro for his HTN Demonstrated understanding of instructions, follow-up care. 15:34 Patient left the ED. sv Signatures: Dispatcher [employer] Nilda Smyth, NICCI RN Carlito Gifford PA PA jmm Hagler, Ervin Mary Rey bq
[2018-10-07 15:58] VITALS: TEMP 97.8
[2018-10-07 16:02] VITALS: BP 122/75; O2SAT 97
--- NOTE | 2018-10-10 11:32 | EKG ---
Test Date: 2018-10-07 Test Time: 12:02:36 Property Specialist: CARMELO MEASUREMENT RESULTS: Intervals: Rate: 82 MO: 136 QRSD: 94 QT: 358 QTc: 418 [place]: P: 57 MO: 136 QRS: 52 T: 8 INTERPRETIVE STATEMENTS: Normal sinus rhythm Nonspecific ST and T wave abnormality Abnormal ECG Compared to ECG 08/06/2018 15:02:22 ST (T wave) deviation now present T-wave abnormality no longer present Electronically Signed On 10-08-18 10:51:12 CDT by Eduardo Hernandes
== END 2018-10-07 15:34 | disposition home or self-care (01) ==
LOC: ER 11:05
DX: I10 Essential (primary) hypertension (principal); J44.9 Chronic obstructive pulmonary disease, unspecified; I25.2 Old myocardial infarction; Z88.3 Allergy status to other anti-infective agents; Z88.8 Allergy status to other drugs, medicaments and biological substances
CPT/HCPCS: 36415; 70450; 70496; 70498; 71045; 80048; 80076; 83735; 83880; 84484; 85025; 85610; 93005; 99285; Q9967

== ENCOUNTER 2018-10-17 15:19 | Emergency (ER) | payer SELFPAY ==
--- OUTSIDE RECORDS SUMMARY | 2018-10-17 15:20 | XMS REPORT ---
:1965 [facility] [address] [place] [address] Dr. Fierro [address] [place] [id number] Care Team Providers Name Role Phone Unavailable Unavailable Unavailable Problems This patient has no known problems. Allergies, Adverse Reactions, Alerts This patient has no known allergies or adverse reactions. Medications This patient has no known medications.
--- NOTE | 2018-10-17 16:02 | RAD REPORT ---
EXAM DESCRIPTION: RAD - Chest Single View - 10/17/2018 3:56 pm CLINICAL HISTORY: Cough;Dyspnea Chest pain. COMPARISON: Chest Single View dated 10/07/2018; Chest Pa And Lat (2 Views) dated 08/06/2018; Chest Singl e View dated 07/29/2018; Chest Single View dated 07/27/2018 FINDINGS: Portable technique limits examination quality. The lungs are grossly clear. The heart is normal in size. No displaced fractures. IMPRESSION: No acute intrathoracic process suspected.
[2018-10-17 16:37] LABS: Absolute Lymphocytes (CBC) 1.8 K/uL (0.7-4.9); Absolute Monocytes 0.6 K/uL (0.1-1.3); Absolute Neutrophil 4.3 K/uL (1.8-8.0); Basophils % 0.9 % (0-1.3); Eosinophils % 2.8 % (0-4.4); Hematocrit 46.4 % (39.6-49.0); Lymphocytes % 25.5 % (15.3-44.8); MPV 9.7 fL (7.6-11.3); Monocytes % 8.4 % (3.3-12.3); RBC Red Blood Cell Count 5.22 M/uL (4.33-5.43)
[2018-10-17 16:38] LABS: Protime INR 0.97
[2018-10-17 16:54] LABS: ALT/SGPT 102 U/L (12-78); AST/SGOT 42 U/L (15-37); Albumin 3.9 g/dL (3.4-5.0); Alkaline Phosphatase 44 U/L (45-117); BUN Blood Urea Nitrogen 17 mg/dL (7-18); Bicarbonate 29 mmol/L (21-32); Bilirubin Direct < 0.1 mg/dL (0-0.2); Bilirubin Total 0.3 mg/dL (0.2-1.0); Glucose Level 94 mg/dL (74-106); Lipase 289 U/L (73-393); NT PRO-BNP 33 pg/mL (<125); Protein, Total 7.2 g/dL (6.4-8.2); Sodium Level 142 mmol/L (136-145); Troponin (Emerg Dept Use Only) < 0.02 ng/mL (0.0-0.045)
[2018-10-17] MEDS ORDERED: METHYLPREDNISOLONE 125 MG INJ ONE (16:56)
[2018-10-17] MEDS ORDERED: IPRATROPIUM BROM 0.5MG/2.5ML ONE (16:56)
[2018-10-17] MEDS ORDERED: LEVALBUTEROL 1.25 MG/3 ML NEB ONE (16:56)
[2018-10-17] MEDS ORDERED: MORPHINE 4 MG/ML SYR ONE (16:57)
[2018-10-17] MEDS ORDERED: ASPIRIN EC 81 MG TAB PO ONE (16:57)
[2018-10-17] MEDS ORDERED: ONDANSETRON 4 MG/2 ML VIAL ONE (16:57)
--- NOTE | 2018-10-17 17:09 | EKG ---
Test Date: 2018-10-17 Test Time: 16:04:48 Supervisor Phosphatic Fertilizer: ANGELO MEASUREMENT RESULTS: Intervals: Rate: 86 MO: 132 QRSD: 104 QT: 356 QTc: 426 [place]: P: 53 MO: 132 QRS: 63 T: 28 INTERPRETIVE STATEMENTS: Normal sinus rhythm Nonspecific ST and T wave abnormality Abnormal ECG Compared to ECG 10/07/2018 12:02:36 No significant changes Electronically Signed On 10-17-18 17:08:45 CDT by Eduardo Hernandes
--- NOTE | 2018-10-17 17:14 | ER ---
Nurse's Notes [facility] Name: Juan Miguel Langston Age: 53 yrs Sex: Male : 1965 Arrival Date: 10/17/2018 Time: 15:21 Bed 14 Private MD: None, None Diagnosis: Chronic obstructive pulmonary disease with (acute) exacerbation;Essential (primary) hypertension;Dyspnea;Type 2 diabetes mellitus;Obesity, unspecified Presentation: 10/17 15:23 Presenting complaint: Patient states: BLE swelling and SOB that has not changed since sv last time being here. Transition of care: patient was not received from another setting of care. Onset of symptoms was October 17, 2018. Care prior to arrival: None. 15:23 Method Of Arrival: Wheelchair sv 15:23 Acuity: DESTINY 3 sv 15:45 Risk Assessment: Do you want to hurt yourself or someone else? Patient reports no rb1 desire to harm self or others. Initial Sepsis Screen: Does the patient meet any 2 criteria? No. Patient's initial sepsis screen is negative. 15:45 Initial Sepsis Screen: Does the patient have a suspected source of infection? No. rb1 Patient's initial sepsis screen is negative. Triage Assessment: 15:23 General: Appears in no apparent distress. unkempt, well developed, Behavior is calm, sv cooperative, appropriate for age. Pain: Complains of pain in right leg and left leg Pain currently is 10 out of 10 on a pain scale. Neuro: Level of Consciousness is awake, alert, obeys commands, Oriented to person, place, time, situation, Moves all extremities. Speech is normal. Respiratory: Reports shortness of breath on exertion Onset: The symptoms/episode began/occurred ongoing, the patient has mild shortness of breath. Musculoskeletal: Reports BLE swelling. Historical: - Allergies: 15:24 Azithromycin; sv 15:24 Metoprolol Tartrate; sv - PMHx: 15:24 Angina; COPD; Diabetes - NIDDM; High Cholesterol; Hypertension; Myocardial infarction; sv Sleep Apnea; - PSHx: 15:24 None; sv - Immunization history:: Adult Immunizations up to date. - Family history:: not pertinent. - Social history:: Smoking status: Patient uses tobacco products, Electronic cigarettes. . - Ebola Screening: : Patient negative for fever greater than or equal to 101.5 degrees Fahrenheit, and additional compatible Ebola Virus Disease symptoms. Screenin:45 Abuse screen: Denies threats or abuse. Nutritional screening: No deficits noted. rb1 Tuberculosis screening: No symptoms or risk factors identified. Fall Risk None identified. Assessment: 15:45 General: Appears in no apparent distress. comfortable, obese, unkempt, Behavior is rb1 calm, cooperative, Denies fever, feeling ill. Pain: Complains of pain in left leg and right leg Pain currently is 10 out of 10 on a pain scale. Pain began 2-3 days ago. Aggravated by weight bearing. Neuro: Level of Consciousness is awake, alert, obeys commands, Oriented to person, place, time, situation. Cardiovascular: Capillary refill < 3 seconds is brisk in bilateral fingers. Respiratory: Airway is patent Respiratory effort is even, unlabored, Respiratory pattern is regular, symmetrical. GI: No signs and/or symptoms were reported involving the gastrointestinal system. : No signs and/or symptoms were reported regarding the genitourinary system. Derm: Skin is red, bilateral lower legs are sunburned. Musculoskeletal: Range of motion: intact in all extremities. 15:45 Cardiovascular: Rhythm is regular. Respiratory: Breath sounds are clear bilaterally. rb1 16:40 Reassessment: Patient appears in no apparent distress at this time. No changes from rb1 previously documented assessment. 17:40 Reassessment: Patient appears in no apparent distress at this time. Patient and/or rb1 family updated on plan of care and expected duration. Pain level reassessed. Patient is alert, oriented x 3, equal unlabored respirations, skin warm/dry/pink. Vital Signs: 15:24 BP 124 / 72; Pulse 98; Resp 20; Temp 99.5(O); Pulse Ox 95% ; Pain 10/10; sv 16:40 BP 119 / 61; Pulse 90; Resp 20; Pulse Ox 95% on R/A; rb1 17:34 BP 106 / 59; Pulse 84; Resp 19; Pulse Ox 96% on R/A; Pain 9/10; rb1 ED Course: 15:21 Patient arrived in ED. mr 15:22 None, None is Private Physician. mr 15:23 Triage completed. sv 15:24 Arm band placed on. sv 15:44 Lenard Rosario MD is Attending Physician. rambo 15:45 Patient has correct armband on for positive identification. Bed in low position. Call rb1 light in reach. Side rails up X 1. child monitor on. Pulse ox on. NIBP on. 15:56 XRAY Chest (1 view) In Process Unspecified. EDMS 16:09 EKG done, by radiologic technologist mammogram. reviewed by Lenard Rosario MD. sm3 16:20 Inserted saline lock: 22 gauge in right antecubital area, using aseptic technique. rb1 Blood collected. 16:34 Radiology exam delayed due to waiting for pain meds. hr 16:34 Monserrat Anderson, NICCI is Primary Nurse. rb1 17:12 Will Burgess MD is Referral Physician. rambo 17:12 Eduardo Hernandes MD is Referral Physician. rambo 17:20 Ultrasound completed. Patient tolerated well. hr 17:23 US Extremity Venous W Compression Omi In Process Unspecified. EDMS 17:40 No provider procedures requiring assistance completed. IV discontinued, intact, rb1 bleeding controlled, No redness/swelling at site. Pressure dressing applied. 17:47 Urine collected: clean catch specimen, cloudy, fabi colored. jb1 Administered Medications: 16:50 Drug: SOLU-Medrol 125 mg Route: IVP; Site: right antecubital; rb1 17:10 Follow up: Response: No adverse reaction rb1 16:50 Drug: Xopenex 1.25 mg Route: Inhalation; rb1 16:50 Drug: AtroVENT Aerosol 0.5 mg Route: Inhalation; rb1 16:50 Drug: Aspirin 162 mg Route: PO; rb1 17:20 Follow up: Response: No adverse reaction rb1 16:50 Drug: morphine 4 mg Route: IVP; Site: right antecubital; rb1 17:10 Follow up: Response: No adverse reaction; Pain is decreased rb1 16:50 Drug: Zofran 4 mg Route: IVP; Site: right antecubital; rb1 17:05 Follow up: Response: No adverse reaction rb1 Outcome: 17:13 Discharge ordered by . rambo 17:40 Discharged to home ambulatory, with family. rb1 17:40 Condition: stable 17:40 Discharge instructions given to patient, Instructed on discharge instructions, follow up and referral plans. medication usage, Demonstrated understanding of instructions, follow-up care, medications, Prescriptions given X 3. 18:00 Patient left the ED. rb1 Signatures: Dispatcher [employer] EDMS Addison Kim jb1 Nilda Olea RN RN sv Anderson, Corey, MD MD rambo Stewart, Tish mr Levon, Monserrat Gage, RN RN rb1 Clarence, Katya 3 Corrections: (The following items were deleted from the chart) 15:25 15:24 BP 124 / 72; Pulse 98bpm; Resp 20bpm; Pulse Ox 95%; Pain 10/10; sv sv 17:55 16:40 Reassessment: Patient appears in no apparent distress at this time. Patient rb1 and/or family updated on plan of care and expected duration. Pain level reassessed. Patient is alert, oriented x 3, equal unlabored respirations, skin warm/dry/pink. rb1
--- NOTE | 2018-10-17 17:14 | EDPHYS ---
Physician Documentation [facility] Name: Juan Miguel Langston Age: 53 yrs Sex: Male : 1965 Arrival Date: 10/17/2018 Time: 15:21 Bed 14 Private MD: None, None ED Physician Lenard Rosario HPI: 10/17 16:20 This 53 yrs old Male presents to ER via Wheelchair with complaints of rambo Breathing Difficulty, Leg Swelling. 16:20 The patient has shortness of breath at rest, with light activity. Onset: The rambo symptoms/episode began/occurred just prior to arrival. Duration: The symptoms are continuous, but are steadily getting better. The patient's shortness of breath has no apparent modifying factors. Associated signs and symptoms: The patient has no apparent associated signs or symptoms. Severity of symptoms: At their worst the symptoms were mild in the emergency department the symptoms have improved. The patient has experienced similar episodes in the past, multiple times. Historical: - Allergies: 15:24 Azithromycin; sv 15:24 Metoprolol Tartrate; sv - PMHx: 15:24 Angina; COPD; Diabetes - NIDDM; High Cholesterol; Hypertension; Myocardial infarction; sv Sleep Apnea; - PSHx: 15:24 None; sv - Immunization history:: Adult Immunizations up to date. - Family history:: not pertinent. - Social history:: Smoking status: Patient uses tobacco products, Electronic cigarettes. . - Ebola Screening: : Patient negative for fever greater than or equal to 101.5 degrees Fahrenheit, and additional compatible Ebola Virus Disease symptoms. ROS: 16:20 Constitutional: Negative for fever, chills, and weight loss, Eyes: Negative for injury, rambo pain, redness, and discharge, ENT: Negative for injury, pain, and discharge, Neck: Negative for injury, pain, and swelling, Cardiovascular: Negative for chest pain, palpitations, and edema, Abdomen/GI: Negative for abdominal pain, nausea, vomiting, diarrhea, and constipation, Back: Negative for injury and pain, : Negative for injury, bleeding, discharge, and swelling, Skin: Negative for injury, rash, and discoloration, Neuro: Negative for headache, weakness, numbness, tingling, and seizure, Psych: Negative for depression, anxiety, suicide ideation, homicidal ideation, and hallucinations, Allergy/Immunology: Negative for hives, rash, and allergies, Endocrine: Negative for neck swelling, polydipsia, polyuria, polyphagia, and marked weight changes, Hematologic/Lymphatic: Negative for swollen nodes, abnormal bleeding, and unusual bruising. 16:20 Respiratory: Positive for cough, shortness of breath. 16:20 MS/extremity: Positive for pain, swelling, of the right leg and left leg. Exam: 16:20 Constitutional: This is a well developed, well nourished patient who is awake, alert, rambo and in no acute distress. Head/Face: Normocephalic, atraumatic. Eyes: Pupils equal round and reactive to light, extra-ocular motions intact. Lids and lashes normal. Conjunctiva and sclera are non-icteric and not injected. Cornea within normal limits. Periorbital areas with no swelling, redness, or edema. ENT: Nares patent. No nasal discharge, no septal abnormalities noted. Tympanic membranes are normal and external auditory canals are clear. Oropharynx with no redness, swelling, or masses, exudates, or evidence of obstruction, uvula midline. Mucous membranes moist. Neck: Trachea midline, no thyromegaly or masses palpated, and no cervical lymphadenopathy. Supple, full range of motion without nuchal rigidity, or vertebral point tenderness. No Meningismus. Chest/axilla: Normal chest wall appearance and motion. Nontender with no deformity. No lesions are appreciated. Cardiovascular: Regular rate and rhythm with a normal S1 and S2. No gallops, murmurs, or rubs. Normal PMI, no JVD. No pulse deficits. Abdomen/GI: Soft, non-tender, with normal bowel sounds. No distension or tympany. No guarding or rebound. No evidence of tenderness throughout. Back: No spinal tenderness. No costovertebral tenderness. Full range of motion. Skin: Warm, dry with normal turgor. Normal color with no rashes, no lesions, and no evidence of cellulitis. MS/ Extremity: Pulses equal, no cyanosis. Neurovascular intact. Full, normal range of motion. Neuro: Awake and alert, GCS 15, oriented to person, place, time, and situation. Cranial nerves II-XII grossly intact. Motor strength 5/5 in all extremities. Sensory grossly intact. Cerebellar exam normal. Normal gait. Psych: Awake, alert, with orientation to person, place and time. Behavior, mood, and affect are within normal limits. 16:20 Respiratory: the patient does not display signs of respiratory distress, Respirations: normal, Breath sounds: decreased breath sounds, that are mild, are located in both bases, Respiratory rate: 20 Vital Signs: 15:24 BP 124 / 72; Pulse 98; Resp 20; Temp 99.5(O); Pulse Ox 95% ; Pain 10/10; sv 16:40 BP 119 / 61; Pulse 90; Resp 20; Pulse Ox 95% on R/A; rb1 17:34 BP 106 / 59; Pulse 84; Resp 19; Pulse Ox 96% on R/A; Pain 9/10; rb1 MDM: 15:44 Patient medically screened. [facility] 16:20 Data reviewed: vital signs, nurses notes, lab test result(s), EKG, radiologic studies. 10/17 15:48 Order name: Basic Metabolic Panel; Complete Time: 17:01 10/17 15:48 Order name: CBC with Diff; Complete Time: 17:01 10/17 15:48 Order name: LFT's; Complete Time: 17:01 10/17 15:48 Order name: Magnesium; Complete Time: 17:01 10/17 15:48 Order name: NT PRO-BNP; Complete Time: 17:01 10/17 15:48 Order name: PT-INR; Complete Time: 17:01 10/17 15:48 Order name: Troponin (emerg Dept Use Only); Complete Time: 17:01 10/17 15:48 Order name: XRAY Chest (1 view); Complete Time: 17:01 10/17 15:48 Order name: Lipase; Complete Time: 17:01 10/17 15:48 Order name: UDS 10/17 15:48 Order name: US Extremity Venous W Compression Omi 10/17 15:48 Order name: EKG; Complete Time: 15:49 10/17 15:48 Order name: Cardiac monitoring; Complete Time: 17:48 10/17 15:48 Order name: EKG - Nurse/Tech; Complete Time: 16:56 10/17 15:48 Order name: IV Saline Lock; Complete Time: 16:56 10/17 15:48 Order name: Labs collected and sent; Complete Time: 16:56 10/17 15:48 Order name: O2 Per Protocol; Complete Time: 16:56 [facility] 10/17 15:48 Order name: O2 Sat Monitoring; Complete Time: 16:57 [facility] 10/17 15:48 Order name: Urine Dipstick-Ancillary (obtain specimen); Complete Time: 17:47 [facility] Administered Medications: 16:50 Drug: SOLU-Medrol 125 mg Route: IVP; Site: right antecubital; rb1 17:10 Follow up: Response: No adverse reaction rb1 16:50 Drug: Xopenex 1.25 mg Route: Inhalation; rb1 16:50 Drug: AtroVENT Aerosol 0.5 mg Route: Inhalation; rb1 16:50 Drug: Aspirin 162 mg Route: PO; rb1 17:20 Follow up: Response: No adverse reaction rb1 16:50 Drug: morphine 4 mg Route: IVP; Site: right antecubital; rb1 17:10 Follow up: Response: No adverse reaction; Pain is decreased rb1 16:50 Drug: Zofran 4 mg Route: IVP; Site: right antecubital; rb1 17:05 Follow up: Response: No adverse reaction rb1 Disposition: 10/17/18 17:13 Discharged to Home. Impression: Chronic obstructive pulmonary disease with (acute) exacerbation, Essential (primary) hypertension, Dyspnea, Type 2 diabetes mellitus, Obesity, unspecified. - Condition is Stable. - Discharge Instructions: Chronic Obstructive Pulmonary Disease, Type 2 Diabetes Mellitus, Diagnosis, Adult, Hypertension, Heart Disease Prevention, Chronic Obstructive Pulmonary Disease Exacerbation, Hypertension, [id number], Tobacco Use Disorder, How to Take Your Blood Pressure, [id number], Aspirin and Your Heart, Type 2 Diabetes Mellitus, Diagnosis, Adult, Ixex-sk-Dtht, Managing Your Hypertension. - Prescriptions for Lisinopril 20 mg Oral Tablet - take 1 tablet by ORAL route once daily; 20 tablet. Medrol (Demetrio) 4 mg Oral Tablets, Dose Pack - take 1 tablet by ORAL route as directed - follow package instructions; 1 packet. Albuterol Sulfate 90 mcg/actuation - inhale 1-2 puff by INHALATION route every 4-6 hours; 1 Inhaler. - Medication Reconciliation Form, Thank You Letter, Antibiotic Education, Prescription Opioid Use form. - Follow up: Private Physician; When: 2 - 3 days; Reason: Recheck today's complaints, Continuance of care, Re-evaluation by your physician. Follow up: Will Burgess MD; When: 2 - 3 days; Reason: Recheck today's complaints, Continuance of care, Re-evaluation by your physician. Follow up: Eduardo Hernandes MD; When: 2 - 3 days; Reason: Recheck today's complaints, Continuance of care, Re-evaluation by your physician. - Problem is new. - Symptoms have improved. Signatures: Dispatcher [employer] EDNilda Nguyen RN RN sv Anderson, Corey, MD MD cha Williams, Irene, RN RN iw Monserrat Anderson RN RN rb1 Corrections: (The following items were deleted from the chart) 18:00 17:13 10/17/2018 17:13 Discharged to Home. Impression: Chronic obstructive pulmonary rb1 disease with (acute) exacerbation; Essential (primary) hypertension; Dyspnea; Type 2 diabetes mellitus; Obesity, unspecified. Condition is Stable. Discharge Instructions: Chronic Obstructive Pulmonary Disease, Type 2 Diabetes Mellitus, Diagnosis, Adult, Hypertension, Chronic Obstructive Pulmonary Disease Exacerbation, Hypertension, [id number], Tobacco Use Disorder, How to Take Your Blood Pressure, Kbrh-[id number], Aspirin and Your Heart, Type 2 Diabetes Mellitus, Diagnosis, Adult, Ishj-rh-Ezhj, Managing Your Hypertension. Prescriptions for Lisinopril 20 mg Oral Tablet - take 1 tablet by ORAL route once daily; 20 tablet, Medrol (Demetrio) 4 mg Oral Tablets, Dose Pack - take 1 tablet by ORAL route as directed - follow package instructions; 1 packet, Albuterol Sulfate 90 mcg/actuation - inhale 1-2 puff by INHALATION route every 4-6 hours; 1 Inhaler. and Forms are Medication Reconciliation Form, Thank You Letter, Antibiotic Education, Prescription Opioid Use. Follow up: Private Physician; When: 2 - 3 days; Reason: Recheck today's complaints, Continuance of care, Re-evaluation by your physician. Follow up: Will Burgess; When: 2 - 3 days; Reason: Recheck today's complaints, Continuance of care, Re-evaluation by your physician. Follow up: Eduardo Hernandes; When: 2 - 3 days; Reason: Recheck today's complaints, Continuance of care, Re-evaluation by your physician. Problem is new. Symptoms have improved. rambo
--- NOTE | 2018-10-17 17:29 | RAD REPORT ---
EXAM DESCRIPTION: US - Extrem Venous W Compress Omi - 10/17/2018 5:22 pm CLINICAL HISTORY: Pain;Swelling Bilateral leg edema and swelling. COMPARISON: No comparisons TECHNIQUE: Real-time sonographic interrogation of the left and right lower extremity deep venous sys tems was performed. FINDINGS: Normal compressibility, flow augmentation, phasic flow and spontaneous flow is identified in both the left and right lower extremity deep venous systems. IMPRESSION: No sonographic evidence of left or right lower extremity deep venous thrombosis.
[2018-10-17 18:06] LABS: Barbiturates NEGATIVE (NEGATIVE); Benzodiazepines NEGATIVE (NEGATIVE); Cocaine NEGATIVE (NEGATIVE); METHAMPHETAM NEGATIVE (NEGATIVE); Methadone NEGATIVE (NEGATIVE); Opiates NEGATIVE (NEGATIVE); Phencyclidine NEGATIVE (NEGATIVE); THC Cannibis NEGATIVE (NEGATIVE)
[2018-10-17 18:19] VITALS: TEMP 99.5
[2018-10-17 18:21] VITALS: BP 106/59; O2SAT 96
== END 2018-10-17 18:00 | disposition home or self-care (01) ==
LOC: ER 15:19
DX: J44.1 Chronic obstructive pulmonary disease with (acute) exacerbation (principal); E66.9 Obesity, unspecified; E11.9 Type 2 diabetes mellitus without complications; I10 Essential (primary) hypertension; E78.00 Pure hypercholesterolemia, unspecified; I25.2 Old myocardial infarction
CPT/HCPCS: 36415; 71045; 80048; 80076; 80307; 83690; 83735; 83880; 84484; 85025; 85610; 93005; 93970; 96374; 96375; 99285; J2405; J2930

== ENCOUNTER 2018-10-20 14:14 | Emergency (ER) | payer SELFPAY ==
--- OUTSIDE RECORDS SUMMARY | 2018-10-20 14:17 | XMS REPORT ---
:1965 Author Organization [facility] Address [address] [place] [address] Dr. Fierro [address] [place] [id number] Care Team Providers Name Role Phone Unavailable Unavailable Unavailable Problems This patient has no known problems. Allergies, Adverse Reactions, Alerts This patient has no known allergies or adverse reactions. Medications This patient has no known medications.
[2018-10-20 15:31] LABS: Absolute Lymphocytes (CBC) 1.3 K/uL (0.7-4.9); Absolute Monocytes 0.6 K/uL (0.1-1.3); Absolute Neutrophil 6.8 K/uL (1.8-8.0); Basophils % 1.1 % (0-1.3); Eosinophils % 0.4 % (0-4.4); Hematocrit 46.3 % (39.6-49.0); Lymphocytes % 14.9 % (15.3-44.8); MPV 9.3 fL (7.6-11.3); Monocytes % 6.5 % (3.3-12.3); RBC Red Blood Cell Count 5.18 M/uL (4.33-5.43)
[2018-10-20 15:32] LABS: Protime INR 0.97
[2018-10-20] MEDS ORDERED: ASPIRIN 81 MG CHEWABLE TABLET ONE (15:33)
[2018-10-20 15:51] LABS: ALT/SGPT 87 U/L (12-78); AST/SGOT 24 U/L (15-37); Albumin 3.9 g/dL (3.4-5.0); Alkaline Phosphatase 47 U/L (45-117); BUN Blood Urea Nitrogen 15 mg/dL (7-18); Bicarbonate 28 mmol/L (21-32); Bilirubin Direct < 0.1 mg/dL (0-0.2); Bilirubin Total 0.2 mg/dL (0.2-1.0); Glucose Level 98 mg/dL (74-106); Magnesium 2.1 mg/dL (1.8-2.4); NT PRO-BNP 24 pg/mL (<125); Potassium 4.3 mmol/L (3.5-5.1); Protein, Total 7.3 g/dL (6.4-8.2); Sodium Level 140 mmol/L (136-145); Troponin (Emerg Dept Use Only) < 0.02 ng/mL (0.0-0.045)
[2018-10-20] MEDS ORDERED: ONDANSETRON 4 MG/2 ML VIAL ONE (16:01)
[2018-10-20] MEDS ORDERED: MORPHINE 2 MG/ML SYR ONE (16:01)
--- NOTE | 2018-10-20 16:08 | RAD REPORT ---
EXAM DESCRIPTION: RAD - Chest Single View - 10/20/2018 3:25 pm CLINICAL HISTORY: Chest pain, hypertension COMPARISON: October 17 TECHNIQUE: AP portable chest image was obtained 1522 hours . FINDINGS: Lungs are underinflated. Lung markings are similar to comparison. No focal lung parenchyma l process. Heart and vasculature are normal. No measurable pleural effusion and no pneumothorax. No a cute bony abnormality seen. No acute aortic findings suspected. IMPRESSION: No acute cardiopulmonary process. No significant interval change.
--- NOTE | 2018-10-20 16:59 | EDPHYS ---
Physician Documentation [facility] Name: Juan Miguel Langston Age: 53 yrs Sex: Male : 1965 Arrival Date: 10/20/2018 Time: 14:15 Bed 13 Private MD: ED Physician Rashard Bardales HPI: 10/20 15:14 This 53 yrs old Male presents to ER via EMS with complaints of High Blood kdr Pressure. 15:14 The patient has elevated blood pressure and discovered this at a drugstore. Onset: The kdr symptoms/episode began/occurred at an unknown time. Modifying factors: The symptoms are aggravated by The symptoms are alleviated by Nothing. Associated signs and symptoms: Pertinent positives: chest pain, weakness. Severity of symptoms: At its worst the blood pressure was severe, just prior to arrival, in the emergency department the blood pressure is improved. The patient has not experienced similar symptoms in the past. The patient has not recently seen a physician. Historical: - Allergies: 14:32 Azithromycin; iw 14:32 Metoprolol Tartrate; iw - Home Meds: 14:32 amlodipine 5 mg tab 1 tab once daily [Active]; aspirin 81 mg Oral chew 1 tab once daily iw [Active]; atorvastatin Oral once daily [Active]; - PMHx: 14:32 Angina; COPD; Diabetes - NIDDM; High Cholesterol; Hypertension; Myocardial infarction; iw Sleep Apnea; - Immunization history:: Adult Immunizations up to date. - Social history:: Smoking status: Patient uses tobacco products, E-cigarette . - Ebola Screening: : Patient negative for fever greater than or equal to 101.5 degrees Fahrenheit, and additional compatible Ebola Virus Disease symptoms Patient denies exposure to infectious person Patient denies travel to an Ebola-affected area in the 21 days before illness onset No symptoms or risks identified at this time. ROS: 17:52 Constitutional: Negative for fever, chills, and weight loss, Eyes: Negative for injury, kdr pain, redness, and discharge, ENT: Negative for injury, pain, and discharge, Neck: Negative for injury, pain, and swelling, Cardiovascular: Negative for chest pain, palpitations, and edema, Respiratory: Negative for shortness of breath, cough, wheezing, and pleuritic chest pain, Abdomen/GI: Negative for abdominal pain, nausea, vomiting, diarrhea, and constipation, Back: Negative for injury and pain, : Negative for injury, bleeding, discharge, and swelling, MS/Extremity: Negative for injury and deformity, Skin: Negative for injury, rash, and discoloration, Psych: Negative for depression, anxiety, suicide ideation, homicidal ideation, and hallucinations, Allergy/Immunology: Negative for hives, rash, and allergies, Endocrine: Negative for neck swelling, polydipsia, polyuria, polyphagia, and marked weight changes, Hematologic/Lymphatic: Negative for swollen nodes, abnormal bleeding, and unusual bruising. 17:52 Neuro: Positive for headache, weakness, Negative for altered mental status, dizziness, gait disturbance, hearing loss, loss of consciousness, numbness, seizure activity, speech changes, syncope, near syncope, tingling, tinnitus, tremor, visual changes. Exam: 17:52 Constitutional: This is a well developed, well nourished patient who is awake, alert, kdr and in no acute distress. Head/Face: Normocephalic, atraumatic. Eyes: Pupils equal round and reactive to light, extra-ocular motions intact. Lids and lashes normal. Conjunctiva and sclera are non-icteric and not injected. Cornea within normal limits. Periorbital areas with no swelling, redness, or edema. Neck: Trachea midline, no thyromegaly or masses palpated, and no cervical lymphadenopathy. Supple, full range of motion without nuchal rigidity, or vertebral point tenderness. No Meningismus. Chest/axilla: Normal chest wall appearance and motion. Nontender with no deformity. No lesions are appreciated. Cardiovascular: Regular rate and rhythm with a normal S1 and S2. No gallops, murmurs, or rubs. Normal PMI, no JVD. No pulse deficits. Respiratory: Lungs have equal breath sounds bilaterally, clear to auscultation and percussion. No rales, rhonchi or wheezes noted. No increased work of breathing, no retractions or nasal flaring. Abdomen/GI: Soft, non-tender, with normal bowel sounds. No distension or tympany. No guarding or rebound. No evidence of tenderness throughout. Back: No spinal tenderness. No costovertebral tenderness. Full range of motion. Skin: Warm, dry with normal turgor. Normal color with no rashes, no lesions, and no evidence of cellulitis. MS/ Extremity: Pulses equal, no cyanosis. Neurovascular intact. Full, normal range of motion. Neuro: Awake and alert, GCS 15, oriented to person, place, time, and situation. Cranial nerves II-XII grossly intact. Motor strength 5/5 in all extremities. Sensory grossly intact. Cerebellar exam normal. Normal gait. Psych: Awake, alert, with orientation to person, place and time. Behavior, mood, and affect are within normal limits. Vital Signs: 14:28 BP 165 / 97; Pulse 93; Resp 18 S; Pulse Ox 98% on R/A; Weight 110.22 kg; Height 5 ft. 6 iw in. (167.64 cm); Pain 10/10; 14:35 BP 157 / 84; Pulse 79; Resp 18 S; Temp 97.8(TE); Pulse Ox 96% on R/A; iw 16:09 BP 135 / 84; Pulse 67; Resp 16; Pulse Ox 95% on R/A; iw 14:28 Body Mass Index 39.22 (110.22 kg, 167.64 cm) iw MDM: 16:58 Patient medically screened. kdr 17:52 Data reviewed: vital signs, nurses notes, lab test result(s). Counseling: I had a kdr detailed discussion with the patient and/or guardian regarding: the historical points, exam findings, and any diagnostic results supporting the discharge/admit diagnosis, the presence of at least one elevated blood pressure reading (>120/80) during this emergency department visit, lab results, the need for outpatient follow up. 10/20 15:10 Order name: Basic Metabolic Panel; Complete Time: 16:48 [facility] 10/20 15:10 Order name: CBC with Diff; Complete Time: 16:48 [facility] 10/20 15:10 Order name: LFT's; Complete Time: 16:48 kdr 10/20 15:10 Order name: Magnesium; Complete Time: 16:48 [facility] 10/20 15:10 Order name: NT PRO-BNP; Complete Time: 16:48 kdr 10/20 15:10 Order name: PT-INR; Complete Time: 16:48 [facility] 10/20 15:10 Order name: Troponin (emerg Dept Use Only); Complete Time: 16:48 [facility] 10/20 15:10 Order name: XRAY Chest (1 view); Complete Time: 16:48 [facility] 10/20 15:10 Order name: EKG; Complete Time: 15:11 [facility] 10/20 15:10 Order name: Cardiac monitoring; Complete Time: 15:25 [facility] 10/20 15:10 Order name: EKG - Nurse/Tech; Complete Time: 15: [facility] 10/20 15:10 Order name: IV Saline Lock; Complete Time: 15: kdr 10/20 15:10 Order name: Labs collected and sent; Complete Time: 15: [facility] 10/20 15:10 Order name: O2 Per Protocol; Complete Time: 15: kdr 10/20 15:10 Order name: O2 Sat Monitoring; Complete Time: 15: kdr Administered Medications: 15:25 Drug: Aspirin Chewable Tablet 324 mg Route: PO; iw Disposition: 10/20/18 16:58 Discharged to Home. Impression: Hypertensive heart disease, Headache. - Condition is Stable. - Discharge Instructions: General Headache Without Cause, Hypertension, [id number]. - Prescriptions for Clonidine 0.1 mg Oral Tablet - take 1 tablet by ORAL route every 12 hours As needed; 16 tablet. - Medication Reconciliation Form, Thank You Letter form. - Follow up: Private Physician; When: 2 - 3 days; Reason: If symptoms return, Further diagnostic work-up, Recheck today's complaints, Continuance of care, Re-evaluation by your physician. - Problem is an ongoing problem. - Symptoms have improved. Signatures: Dispatcher [employer] EDMS Rashard Bardales MD MD kdr Adeline Langston RN RN iw Corrections: (The following items were deleted from the chart) 17:18 16:58 10/20/2018 16:58 Discharged to Home. Impression: Hypertensive heart disease; iw Headache. Condition is Stable. Forms are Medication Reconciliation Form, Thank You Letter, Antibiotic Education, Prescription Opioid Use. Follow up: Private Physician; When: 2 - 3 days; Reason: If symptoms return, Further diagnostic work-up, Recheck today's complaints, Continuance of care, Re-evaluation by your physician. Problem is an ongoing problem. Symptoms have improved. kdr
--- NOTE | 2018-10-20 16:59 | ER ---
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 Transition of care: patient was not received from another setting of care. Onset of symptoms was October 20, 2018. Risk Assessment: Do you want to hurt yourself or someone else? Patient reports no desire to harm self or others. Initial Sepsis Screen: Does the patient meet any 2 criteria? No. Patient's initial sepsis screen is negative. Does the patient have a suspected source of infection? No. Patient's initial sepsis screen is negative. Care prior to arrival: None. 14:18 Method Of Arrival: EMS: [facility] iw 14:18 Acuity: DESTINY 3 iw Historical: - Allergies: 14:32 Azithromycin; iw 14:32 Metoprolol Tartrate; iw - Home Meds: 14:32 amlodipine 5 mg tab 1 tab once daily [Active]; aspirin 81 mg Oral chew 1 tab once daily iw [Active]; atorvastatin Oral once daily [Active]; - PMHx: 14:32 Angina; COPD; Diabetes - NIDDM; High Cholesterol; Hypertension; Myocardial infarction; iw Sleep Apnea; - Immunization history:: Adult Immunizations up to date. - Social history:: Smoking status: Patient uses tobacco products, E-cigarette . - Ebola Screening: : Patient negative for fever greater than or equal to 101.5 degrees Fahrenheit, and additional compatible Ebola Virus Disease symptoms Patient denies exposure to infectious person Patient denies travel to an Ebola-affected area in the 21 days before illness onset No symptoms or risks identified at this time. Screenin:32 Abuse screen: Denies threats or abuse. Denies injuries from another. Nutritional iw screening: No deficits noted. Tuberculosis screening: No symptoms or risk factors identified. Fall Risk None identified. Assessment: 14:50 General: Appears in no apparent distress. Behavior is calm, cooperative. Pain: iw Complains of pain in head and chest. Neuro: Level of Consciousness is awake, alert, obeys commands, Oriented to person, place, time, situation, Moves all extremities. Cardiovascular: Patient's skin is warm and dry. Respiratory: Respiratory effort is even, unlabored, Respiratory pattern is regular. GI: Abdomen is non-distended. Derm: Skin is intact, is healthy with good turgor. Musculoskeletal: Range of motion: intact in all extremities. 16:10 Reassessment: Patient appears in no apparent distress at this time. Patient and/or iw family updated on plan of care and expected duration. Pain level reassessed. Patient is alert, oriented x 3, equal unlabored respirations, skin warm/dry/pink. warm blanket given, pt states he still has headache 10/10. Vital Signs: 14:28 BP 165 / 97; Pulse 93; Resp 18 S; Pulse Ox 98% on R/A; Weight 110.22 kg; Height 5 ft. 6 iw in. (167.64 cm); Pain 10/10; 14:35 BP 157 / 84; Pulse 79; Resp 18 S; Temp 97.8(TE); Pulse Ox 96% on R/A; iw 16:09 BP 135 / 84; Pulse 67; Resp 16; Pulse Ox 95% on R/A; iw 14:28 Body Mass Index 39.22 (110.22 kg, 167.64 cm) iw ED Course: 14:15 Patient arrived in ED. iw 14:23 Triage completed. iw 14:27 Adeline Langston, RN is Primary Nurse. iw 14:49 Rashard Bardales MD is Attending Physician. kdr 14:50 Arm band placed on. iw 14:55 EKG done, by control room technician. reviewed by Rashard Bardales MD. at1 15:16 Patient has correct armband on for positive identification. Bed in low position. Side iw rails up X2. Adult w/ patient. 15:26 XRAY Chest (1 view) In Process Unspecified. EDMS 16:55 No provider procedures requiring assistance completed. IV discontinued, intact, iw bleeding controlled, No redness/swelling at site. Pressure dressing applied. Administered Medications: 15:25 Drug: Aspirin Chewable Tablet 324 mg Route: PO; iw Outcome: 16:58 Discharge ordered by . kdr 17:17 Discharged to home ambulatory, with family. iw 17:17 Condition: good 17:17 Discharge instructions given to patient, family, Instructed on discharge instructions, follow up and referral plans. medication usage, instructed to only take Clonidine for BP over 160, pt and family verbalize understanding Demonstrated understanding of instructions, follow-up care, medications, Prescriptions given X 1. 17:18 Patient left the ED. iw Signatures: Dispatcher [employer] EDMS Rashard Bardales MD MD kdr Adeline Langston RN RN iw Thu Pond, work order detailer EKG Tat1 Corrections: (The following items were deleted from the chart) 16:03 14:35 BP 157 / 84; Pulse 79bpm; Resp 18bpm; Spontaneous; Pulse Ox 96% RA; iw iw
[2018-10-20] MEDS ORDERED: IBUPROFEN 400 MG TAB ONE (17:08)
[2018-10-20 17:57] VITALS: TEMP 97.8
[2018-10-20 17:58] VITALS: BP 135/84; O2SAT 95
--- NOTE | 2018-10-21 10:16 | EKG ---
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
== END 2018-10-20 17:18 | disposition home or self-care (01) ==
LOC: ER 14:14
DX: I11.9 Hypertensive heart disease without heart failure (principal); I10 Essential (primary) hypertension; E78.00 Pure hypercholesterolemia, unspecified; E11.9 Type 2 diabetes mellitus without complications; J44.9 Chronic obstructive pulmonary disease, unspecified; I25.2 Old myocardial infarction; Z72.0 Tobacco use; Z79.82 Long term (current) use of aspirin; Z88.3 Allergy status to other anti-infective agents; Z88.8 Allergy status to other drugs, medicaments and biological substances
CPT/HCPCS: 36415; 71045; 80048; 80076; 83735; 83880; 84484; 85025; 85610; 93005; 99284; J2270; J2405

== ENCOUNTER 2018-10-29 14:34 | Emergency (ER) | payer SELFPAY ==
--- OUTSIDE RECORDS SUMMARY | 2018-10-29 14:49 | XMS REPORT ---
:1965 [facility] Address [address] [place] [address] Dr. Fierro [address] [place] [id number] Care Team Providers Name Role Phone Unavailable Unavailable Unavailable Problems This patient has no known problems. Allergies, Adverse Reactions, Alerts This patient has no known allergies or adverse reactions. Medications This patient has no known medications.
--- NOTE | 2018-10-29 15:23 | ER ---
Nurse's Notes [facility] Name: Juan Miguel Langston Age: 53 yrs Sex: Male : 1965 Arrival Date: 10/29/2018 Time: 14:35 Bed 18 Private MD: Diagnosis: Hypertension Presentation: 10/29 14:40 Presenting complaint: Patient states: My BP had been very high, I am having blurred la1 vision, my ears are ringing, and I am having neck and shoulder pain. BP has been in the 170s/100s when measured at the pharmacy. Transition of care: patient was not received from another setting of care. Onset of symptoms was October 29, 2018. Risk Assessment: Do you want to hurt yourself or someone else? Patient reports no desire to harm self or others. Initial Sepsis Screen: Does the patient meet any 2 criteria? No. Patient's initial sepsis screen is negative. Does the patient have a suspected source of infection? No. Patient's initial sepsis screen is negative. Care prior to arrival: None. 14:40 Method Of Arrival: Ambulatory la1 14:40 Acuity: DESTINY 3 la1 Historical: - Allergies: 14:40 Azithromycin; la1 14:40 Metoprolol Tartrate; la1 - Home Meds: 14:40 amlodipine 5 mg tab 1 tab once daily [Active]; aspirin 81 mg Oral chew 1 tab once daily la1 [Active]; atorvastatin Oral once daily [Active]; detirizine [Active]; Dulera inhalation [Active]; Famotidine Oral [Active]; fluticasone-salmeterol inhalation [Active]; lisinopril 20 mg Oral tab 1 tab once daily [Active]; nitroglycerin 0.4 mg SL subl 1 tab every 5 minutes [Active]; pantoprazole 40 mg Oral TbEC 1 tab once daily [Active]; ProAir HFA inhalation [Active]; - PMHx: 14:40 Angina; COPD; Diabetes - NIDDM; High Cholesterol; Hypertension; Myocardial infarction; la1 Sleep Apnea; - Immunization history:: Adult Immunizations up to date. - Social history:: Smoking status: Patient/guardian denies using tobacco. - Ebola Screening: : No symptoms or risks identified at this time. - Family history:: not pertinent. - Hospitalizations: : No recent hospitalization is reported. Screenin:00 Abuse screen: Denies threats or abuse. Nutritional screening: No deficits noted. em Tuberculosis screening: No symptoms or risk factors identified. Fall Risk None identified. Assessment: 15:00 General: Appears in no apparent distress. comfortable, unkempt, Behavior is calm, em cooperative. Pain: Complains of pain in chest Pain currently is 7 out of 10 on a pain scale. Neuro: Level of Consciousness is awake, alert, obeys commands, Oriented to person, place, time, situation, Reports blurred vision dizziness. Cardiovascular: Heart tones S1 S2 present Capillary refill < 3 seconds Patient's skin is warm and dry. Rhythm is sinus rhythm. Respiratory: Airway is patent Respiratory effort is even, unlabored, Respiratory pattern is regular, symmetrical. Derm: Skin is intact, is healthy with good turgor, Skin is pink, warm \T\ dry. Musculoskeletal: Capillary refill < 3 seconds, Range of motion: intact in all extremities. Vital Signs: 14:42 Pulse 88; Resp 20; Temp 97.6; Pulse Ox 95% on R/A; Weight 110.22 kg; Height 5 ft. 6 in. la1 (167.64 cm); 14:43 BP 137 / 85 RA; la1 14:45 BP 155 / 72 LA Sitting (auto/lg); la1 15:12 BP 136 / 94; Pulse 91; Resp 19; Pulse Ox 95% on R/A; em 14:42 Body Mass Index 39.22 (110.22 kg, 167.64 cm) la1 ED Course: 14:35 Patient arrived in ED. as 14:40 Arm band placed on right wrist. la1 14:41 Triage completed. la1 14:45 Nate Donald MD is Attending Physician. rn 15:00 Micheal Burt LVN is Primary Nurse. em 15:00 Patient has correct armband on for positive identification. Bed in low position. Call em light in reach. Adult w/ patient. Pulse ox on. NIBP on. 15:06 EKG done, by ED staff, reviewed by Nate Donald MD. em 15:35 No provider procedures requiring assistance completed. Patient did not have IV access em during this emergency room visit. Administered Medications: No medications were administered Outcome: 15: Discharge ordered by . rn 15:35 Discharged to home ambulatory. em 15:35 Condition: good 15:35 Discharge instructions given to patient, Instructed on discharge instructions, follow up and referral plans. medication usage, Demonstrated understanding of instructions, follow-up care, medications, Prescriptions given X 1. 15:36 Patient left the ED. em Signatures: Michael Burt, LOSS MITIGATION SPECIALIST LOSS MITIGATION SPECIALIST em Dee Dee Morrow Roman, MD MD rn Attema, Lee, RN RN la1 Corrections: (The following items were deleted from the chart) 14:44 14:43 BP 137 / 85; la1 la1
--- NOTE | 2018-10-29 15:23 | EDPHYS ---
Physician Documentation [facility] Name: Juan Miguel Langston Age: 53 yrs Sex: Male : 1965 Arrival Date: 10/29/2018 Time: 14:35 Bed 18 Private MD: ED Physician Nate Donald HPI: 10/29 15:07 This 53 yrs old Male presents to ER via Ambulatory with complaints of High rn Blood Pressure. 15:07 The patient has elevated blood pressure and discovered this at a drugstore. Onset: The rn symptoms/episode began/occurred at an unknown time. Modifying factors:. Severity of symptoms: At its worst the blood pressure was moderate, in the emergency department the blood pressure is improved. The patient has experienced similar episodes in the past, chronically. Reports high blood pressure, checks BP several times a day, reports ranges from 150s systolic to 210 systolic, doesn't have a pcp, has trouble getting a doctor to manage his BP meds, reports when BP is high he feels headache, flushing, ringing in ears, and blurred vision, currently improved. Denies current chest pain/sob/headache/vision changes/focal neurological problems. . Historical: - Allergies: 14:40 Azithromycin; la1 14:40 Metoprolol Tartrate; la1 - Home Meds: 14:40 amlodipine 5 mg tab 1 tab once daily [Active]; aspirin 81 mg Oral chew 1 tab once daily la1 [Active]; atorvastatin Oral once daily [Active]; detirizine [Active]; Dulera inhalation [Active]; Famotidine Oral [Active]; fluticasone-salmeterol inhalation [Active]; lisinopril 20 mg Oral tab 1 tab once daily [Active]; nitroglycerin 0.4 mg SL subl 1 tab every 5 minutes [Active]; pantoprazole 40 mg Oral TbEC 1 tab once daily [Active]; ProAir HFA inhalation [Active]; - PMHx: 14:40 Angina; COPD; Diabetes - NIDDM; High Cholesterol; Hypertension; Myocardial infarction; la1 Sleep Apnea; - Immunization history:: Adult Immunizations up to date. - Social history:: Smoking status: Patient/guardian denies using tobacco. - Ebola Screening: : No symptoms or risks identified at this time. - Family history:: not pertinent. - Hospitalizations: : No recent hospitalization is reported. ROS: 15:07 Constitutional: Negative for fever, chills, and weight loss, Eyes: Negative for injury, rn pain, redness, and discharge, Neck: Negative for injury, pain, and swelling, Cardiovascular: Negative for chest pain, palpitations, and edema, Respiratory: Negative for shortness of breath, cough, wheezing, and pleuritic chest pain, Abdomen/GI: Negative for abdominal pain, nausea, vomiting, diarrhea, and constipation, MS/Extremity: Negative for injury and deformity, Skin: Negative for injury, rash, and discoloration, Neuro: Negative for headache, weakness, numbness, tingling, and seizure. Exam: 15:07 Constitutional: This is a well developed, well nourished patient who is awake, alert, rn and in no acute distress. Head/Face: Normocephalic, atraumatic. Eyes: Pupils equal round and reactive to light, extra-ocular motions intact. Lids and lashes normal. Conjunctiva and sclera are non-icteric and not injected. Cornea within normal limits. Periorbital areas with no swelling, redness, or edema. ENT: MMM Respiratory: No increased work of breathing, no retractions or nasal flaring. Skin: Warm, dry MS/ Extremity: Pulses equal, no cyanosis. Neurovascular intact. Full, normal range of motion. Equal circumference. Neuro: Awake and alert, GCS 15, oriented to person, place, time, and situation. Cranial nerves II-XII grossly intact. Motor strength 5/5 in all extremities. Sensory grossly intact. Cerebellar exam normal. Normal gait. 15:07 ECG was reviewed by the Attending Physician. rn Vital Signs: 14:42 Pulse 88; Resp 20; Temp 97.6; Pulse Ox 95% on R/A; Weight 110.22 kg; Height 5 ft. 6 in. la1 (167.64 cm); 14:43 BP 137 / 85 RA; la1 14:45 BP 155 / 72 LA Sitting (auto/lg); la1 15:12 BP 136 / 94; Pulse 91; Resp 19; Pulse Ox 95% on R/A; em 14:42 Body Mass Index 39.22 (110.22 kg, 167.64 cm) la1 MDM: 14:45 Patient medically screened. rn 15:07 Differential diagnosis: Malignant HTN. Data reviewed: vital signs, nurses notes, EKG, rn and as a result, I will discharge patient. Counseling: I had a detailed discussion with the patient and/or guardian regarding: the historical points, exam findings, and any diagnostic results supporting the discharge/admit diagnosis, the need for outpatient follow up, to return to the emergency department if symptoms worsen or persist or if there are any questions or concerns that arise at home. 15:20 ED course: Pt currently asymptomatic, ekg without ischemia, BP improved on its own, rn will increase lisinopril to 40mg daily from 20mg daily, and told him not to take his BP too often. Return precautions given and understood.. 10/29 15: Order name: EKG; Complete Time: 15: rn 10/29 15: Order name: EKG - Nurse/Tech; Complete Time: 15:11 rn EC: Rate is 83 beats/min. Rhythm is regular. QRS [place] is Normal. SD interval is normal. QRS rn interval is normal. QT interval is normal. No Q waves. T waves are Normal. No ST changes noted. Clinical impression: NSR w/ Non-specific ST/T Changes. Interpreted by me. Administered Medications: No medications were administered Disposition: 10/29/18 15:22 Discharged to Home. Impression: Hypertension. - Condition is Stable. - Discharge Instructions: Hypertension. - Prescriptions for lisinopril 40 mg Oral tablet - take 1 tablet by ORAL route once daily; 60 tablet. - Medication Reconciliation Form, Thank You Letter, Antibiotic Education, Prescription Opioid Use form. - Follow up: Private Physician; When: As needed; Reason: Recheck today's complaints, Re-evaluation by your physician. - Problem is chronic. - Symptoms have improved. Signatures: Michael Burt, MIRROR PAINTER MIRROR PAINTER em Nate Donald MD MD rn Attema, Lee, RN RN la1 Corrections: (The following items were deleted from the chart) 15:36 15:22 10/29/2018 15:22 Discharged to Home. Impression: Hypertension. Condition is em Stable. Forms are Medication Reconciliation Form, Thank You Letter, Antibiotic Education, Prescription Opioid Use. Follow up: Private Physician; When: As needed; Reason: Recheck today's complaints, Re-evaluation by your physician. Problem is chronic. Symptoms have improved. rn
[2018-10-29 15:41] VITALS: TEMP 97.6; O2SAT 95
[2018-10-29 15:44] VITALS: BP 136/94
--- NOTE | 2018-10-30 07:07 | EKG ---
Test Date: 2018-10-29 Test Time: 15:07:13 Access Representative: HELIO MEASUREMENT RESULTS: Intervals: Rate: 83 CO: 132 QRSD: 106 QT: 342 QTc: 401 [place]: P: 48 CO: 132 QRS: 67 T: -12 INTERPRETIVE STATEMENTS: Normal sinus rhythm Nonspecific T wave abnormality Abnormal ECG Compared to ECG 10/20/2018 14:51:22 T-wave abnormality now present ST (T wave) deviation no longer present Electronically Signed On 10-30-18 07:07:03 CDT by Eduardo Hernandes
== END 2018-10-29 15:36 | disposition home or self-care (01) ==
LOC: ER 14:34
DX: I10 Essential (primary) hypertension (principal); E11.9 Type 2 diabetes mellitus without complications; J44.9 Chronic obstructive pulmonary disease, unspecified; E78.00 Pure hypercholesterolemia, unspecified; I25.2 Old myocardial infarction; Z79.82 Long term (current) use of aspirin; Z88.3 Allergy status to other anti-infective agents; Z88.8 Allergy status to other drugs, medicaments and biological substances
CPT/HCPCS: 93005

== ENCOUNTER 2018-11-05 07:52 | Emergency (ER) | payer SELFPAY ==
--- OUTSIDE RECORDS SUMMARY | 2018-11-05 07:55 | XMS REPORT ---
:1965 [facility] Address [address] [place] [address] Dr. Fierro [address] [place] [id number] Care Team Providers Name Role Phone Unavailable Unavailable Unavailable Problems This patient has no known problems. Allergies, Adverse Reactions, Alerts This patient has no known allergies or adverse reactions. Medications This patient has no known medications.
--- NOTE | 2018-11-05 08:35 | RAD REPORT ---
EXAM DESCRIPTION: RAD - Chest Single View - 11/05/2018 8:28 am CLINICAL HISTORY: Hypertension, chest pain, chest tightness COMPARISON: October 20, 2018 TECHNIQUE: AP portable chest image was obtained 0824 hours . FINDINGS: Lungs are clear. Heart and vasculature are normal. No measurable pleural effusion and no p neumothorax. No acute bony abnormality seen. No acute aortic findings suspected. IMPRESSION: No acute cardiopulmonary process. No significant interval change.
[2018-11-05 09:11] LABS: Absolute Lymphocytes (CBC) 1.4 K/uL (0.7-4.9); Absolute Monocytes 0.4 K/uL (0.1-1.3); Absolute Neutrophil 5.6 K/uL (1.8-8.0); Basophils % 1.2 % (0-1.3); Eosinophils % 0.7 % (0-4.4); Hematocrit 45.4 % (39.6-49.0); Lymphocytes % 18.6 % (15.3-44.8); MPV 9.4 fL (7.6-11.3); Monocytes % 5.6 % (3.3-12.3); RBC Red Blood Cell Count 5.14 M/uL (4.33-5.43)
[2018-11-05 09:14] LABS: Protime INR 0.96
[2018-11-05 09:24] LABS: ALT/SGPT 76 U/L (12-78); AST/SGOT 27 U/L (15-37); Albumin 3.7 g/dL (3.4-5.0); Alkaline Phosphatase 45 U/L (45-117); BUN Blood Urea Nitrogen 20 mg/dL (7-18); Bicarbonate 27 mmol/L (21-32); Bilirubin Direct < 0.1 mg/dL (0-0.2); Bilirubin Total 0.3 mg/dL (0.2-1.0); Glucose Level 113 mg/dL (74-106); Magnesium 2.1 mg/dL (1.8-2.4); NT PRO-BNP 19 pg/mL (<125); Potassium 3.8 mmol/L (3.5-5.1); Protein, Total 7.1 g/dL (6.4-8.2); Sodium Level 139 mmol/L (136-145); Troponin (Emerg Dept Use Only) < 0.02 ng/mL (0.0-0.045)
[2018-11-05] MEDS ORDERED: ISOSORBIDE MONO SR 30 MG TAB PO ONE (10:00)
--- NOTE | 2018-11-05 10:07 | ER ---
Nurse's Notes [facility] Name: Juan Miguel Langston Age: 53 yrs Sex: Male : 1965 Arrival Date: 11/05/2018 Time: 07:54 Bed 5 Private MD: Diagnosis: Chest pain, unspecified;Essential (primary) hypertension;Tobacco abuse counseling;Tobacco use Presentation: 11/05 07:57 Presenting complaint: EMS states: Came to station c/o high blood pressure, BP 156/108, ph also c/o chest tightness. Transition of care: patient was not received from another setting of care. Onset of symptoms was November 05, 2018. Risk Assessment: Do you want to hurt yourself or someone else? Patient reports no desire to harm self or others. Initial Sepsis Screen: Does the patient meet any 2 criteria? No. Patient's initial sepsis screen is negative. Does the patient have a suspected source of infection? No. Patient's initial sepsis screen is negative. Care prior to arrival: None. 07:57 Method Of Arrival: Ambulatory ph 07:57 Acuity: DESTINY 3 ph Historical: - Allergies: 08:07 Azithromycin; ph 08:07 Metoprolol Tartrate; ph - Home Meds: 08:07 amlodipine 5 mg tab 1 tab once daily [Active]; aspirin 81 mg Oral chew 1 tab once daily ph [Active]; atorvastatin Oral once daily [Active]; detirizine [Active]; Dulera inhalation [Active]; Famotidine Oral [Active]; fluticasone-salmeterol inhalation [Active]; lisinopril 20 mg Oral tab 1 tab once daily [Active]; nitroglycerin 0.4 mg SL subl 1 tab every 5 minutes [Active]; pantoprazole 40 mg Oral TbEC 1 tab once daily [Active]; ProAir HFA inhalation [Active]; - PMHx: 08:07 Angina; COPD; Diabetes - NIDDM; High Cholesterol; Hypertension; Myocardial infarction; ph Sleep Apnea; - Immunization history:: Adult Immunizations unknown. - Social history:: Smoking status: Patient/guardian denies using tobacco. - Ebola Screening: : No symptoms or risks identified at this time. - Family history:: not pertinent. Screenin:12 Abuse screen: Denies threats or abuse. Denies injuries from another. Nutritional ph screening: No deficits noted. Tuberculosis screening: No symptoms or risk factors identified. Fall Risk None identified. Assessment: 08:09 General: Appears in no apparent distress. comfortable, obese, Behavior is calm, ph cooperative, appropriate for age, Denies fever. Pain: Complains of pain in left clavicle and anterior aspect of left upper chest Pain radiates to anterior aspect of left shoulder Pain currently is 10 out of 10 on a pain scale. Quality of pain is described as "tightness" Pain began 1 hour ago. Neuro: Level of Consciousness is awake, alert, obeys commands, Oriented to person, place, time, situation. Cardiovascular: Reports chest pain, Denies lightheadedness, nausea, shortness of breath, vomiting, Capillary refill < 3 seconds in bilateral fingers Patient's skin is warm and dry. Chest pain quality is "tightness" is located in left anterior chest wall radiates to left scapula began 1 hour prior to arrival. Respiratory: Airway is patent Respiratory effort is even, unlabored. Derm: Skin is intact, Skin is pink, warm \\T\\ dry. Musculoskeletal: Circulation, motion, and sensation intact. Range of motion: intact in all extremities. 09:02 Reassessment: pt reports chest tightness and shortness of breath at this time, pt resp sg even and labored at this time, pt placed to 2 lpm NC, reports feeling better. Vital Signs: 08:03 BP 165 / 100; Pulse 91; Resp 18; Temp 98.2; Pulse Ox 98% ; Weight 108.86 kg; Pain 10/10;ph 09:01 BP 147 / 90; Pulse 100; Resp 17; Pulse Ox 98% on 2 lpm NC; sg ED Course: 07:54 Patient arrived in ED. ss 08:03 Triage completed. ph 08:06 Lenard Rosario MD is Attending Physician. rambo 08:08 Arm band placed on Patient placed in an exam room, on a stretcher, on pulse oximetry. ph 08:12 Patient has correct armband on for positive identification. Bed in low position. Call ph light in reach. Side rails up X 1. orthopedic nurse practitioner on. Pulse ox on. NIBP on. 08:12 Patient maintains SpO2 saturation greater than 95% on room air. ph 08:28 XRAY Chest (1 view) In Process Unspecified. EDMS 08:50 Missed attempt(s): 20 gauge in right antecubital area. Bleeding controlled, band aid sg applied, catheter tip intact. 08:53 Inserted saline lock: 20 gauge in right hand, using aseptic technique. Blood collected. 09:00 Mehul Deluca, RN is Primary Nurse. 09:00 Initial lab(s) drawn, by dc, sent to lab. 09:10 EKG done, by ED staff, reviewed by Lenard Rosario MD. [facility] 10:06 Nazario Anderson MD is Referral Physician. [facility] 10:20 Repeat lab(s) drawn. by dc, sent to lab. [facility] 12:10 No provider procedures requiring assistance completed. IV discontinued, intact, sg bleeding controlled, No redness/swelling at site. Pressure dressing applied. Administered Medications: 10:08 Not Given (Duplicate Order): Aspirin 162 mg PO once sg 11:17 Drug: Aspirin 81 mg Route: PO; 11:18 Drug: Imdur 30 mg Route: PO; sg Outcome: 10:06 Discharge ordered by . [facility] 12:10 Discharged to home ambulatory. 12:10 Condition: good 12:10 Discharge instructions given to patient, Instructed on discharge instructions, follow up and referral plans. medication usage, safety practices, Demonstrated understanding of instructions, follow-up care. 12:15 Patient left the ED. ms Signatures: Dispatcher [employer] EDMS Mehul Deluca, Lenard Crook RN, MD MD cha Solis, Maria ms Lilia Roche RN RN ss Hall, Patricia, RN RN Phuong Castillonna [facility]
--- NOTE | 2018-11-05 10:07 | EDPHYS ---
Physician Documentation [facility] Name: Juan Miguel Langston Age: 53 yrs Sex: Male : 1965 Arrival Date: 11/05/2018 Time: 07:54 Bed 5 Private MD: ED Physician Lenard Rosario HPI: 11/05 09:25 This 53 yrs old Male presents to ER via Ambulatory with complaints of Chest rambo Tightness. 09:25 The patient or guardian reports chest pain that is located primarily in the anterior rambo chest wall, bilaterally. Onset: last night. The pain does not radiate. Associated signs and symptoms: The patient has no apparent associated signs or symptoms. The chest pain is described as squeezing. Modifying factors: The symptoms are alleviated by nothing. the symptoms are aggravated by nothing. Severity of pain: At its worst the pain was mild in the emergency department the pain is unchanged. Historical: - Allergies: 08:07 Azithromycin; ph 08:07 Metoprolol Tartrate; ph - Home Meds: 08:07 amlodipine 5 mg tab 1 tab once daily [Active]; aspirin 81 mg Oral chew 1 tab once daily ph [Active]; atorvastatin Oral once daily [Active]; detirizine [Active]; Dulera inhalation [Active]; Famotidine Oral [Active]; fluticasone-salmeterol inhalation [Active]; lisinopril 20 mg Oral tab 1 tab once daily [Active]; nitroglycerin 0.4 mg SL subl 1 tab every 5 minutes [Active]; pantoprazole 40 mg Oral TbEC 1 tab once daily [Active]; ProAir HFA inhalation [Active]; - PMHx: 08:07 Angina; COPD; Diabetes - NIDDM; High Cholesterol; Hypertension; Myocardial infarction; ph Sleep Apnea; - Immunization history:: Adult Immunizations unknown. - Social history:: Smoking status: Patient/guardian denies using tobacco. - Ebola Screening: : No symptoms or risks identified at this time. - Family history:: not pertinent. ROS: 09:25 Constitutional: Negative for fever, chills, and weight loss, Eyes: Negative for injury, rambo pain, redness, and discharge, ENT: Negative for injury, pain, and discharge, Neck: Negative for injury, pain, and swelling, Respiratory: Negative for shortness of breath, cough, wheezing, and pleuritic chest pain, Abdomen/GI: Negative for abdominal pain, nausea, vomiting, diarrhea, and constipation, Back: Negative for injury and pain, : Negative for injury, bleeding, discharge, and swelling, MS/Extremity: Negative for injury and deformity, Skin: Negative for injury, rash, and discoloration, Neuro: Negative for headache, weakness, numbness, tingling, and seizure, Psych: Negative for depression, anxiety, suicide ideation, homicidal ideation, and hallucinations, Allergy/Immunology: Negative for hives, rash, and allergies, Endocrine: Negative for neck swelling, polydipsia, polyuria, polyphagia, and marked weight changes, Hematologic/Lymphatic: Negative for swollen nodes, abnormal bleeding, and unusual bruising. 09:25 Cardiovascular: Positive for chest pain, of the chest. Exam: 09:25 Constitutional: This is a well developed, well nourished patient who is awake, alert, rambo and in no acute distress. Head/Face: Normocephalic, atraumatic. Eyes: Pupils equal round and reactive to light, extra-ocular motions intact. Lids and lashes normal. Conjunctiva and sclera are non-icteric and not injected. Cornea within normal limits. Periorbital areas with no swelling, redness, or edema. ENT: Nares patent. No nasal discharge, no septal abnormalities noted. Tympanic membranes are normal and external auditory canals are clear. Oropharynx with no redness, swelling, or masses, exudates, or evidence of obstruction, uvula midline. Mucous membranes moist. Neck: Trachea midline, no thyromegaly or masses palpated, and no cervical lymphadenopathy. Supple, full range of motion without nuchal rigidity, or vertebral point tenderness. No Meningismus. Chest/axilla: Normal chest wall appearance and motion. Nontender with no deformity. No lesions are appreciated. Cardiovascular: Regular rate and rhythm with a normal S1 and S2. No gallops, murmurs, or rubs. Normal PMI, no JVD. No pulse deficits. Respiratory: Lungs have equal breath sounds bilaterally, clear to auscultation and percussion. No rales, rhonchi or wheezes noted. No increased work of breathing, no retractions or nasal flaring. Abdomen/GI: Soft, non-tender, with normal bowel sounds. No distension or tympany. No guarding or rebound. No evidence of tenderness throughout. Back: No spinal tenderness. No costovertebral tenderness. Full range of motion. Male : Normal genitalia with no discharge or lesions. Skin: Warm, dry with normal turgor. Normal color with no rashes, no lesions, and no evidence of cellulitis. MS/ Extremity: Pulses equal, no cyanosis. Neurovascular intact. Full, normal range of motion. Neuro: Awake and alert, GCS 15, oriented to person, place, time, and situation. Cranial nerves II-XII grossly intact. Motor strength 5/5 in all extremities. Sensory grossly intact. Cerebellar exam normal. Normal gait. Psych: Awake, alert, with orientation to person, place and time. Behavior, mood, and affect are within normal limits. Vital Signs: 08:03 BP 165 / 100; Pulse 91; Resp 18; Temp 98.2; Pulse Ox 98% ; Weight 108.86 kg; Pain 10/10;ph 09:01 BP 147 / 90; Pulse 100; Resp 17; Pulse Ox 98% on 2 lpm NC; sg MDM: 08:06 Patient medically screened. [facility] 09:27 Data reviewed: vital signs, nurses notes, lab test result(s), EKG, radiologic studies, rambo plain films. 11/05 08:07 Order name: Basic Metabolic Panel; Complete Time: 10:05 [facility] 11/05 08:07 Order name: CBC with Diff; Complete Time: 09:22 [facility] 11/05 08:07 Order name: LFT's; Complete Time: 10:05 [facility] 11/05 08:07 Order name: Magnesium; Complete Time: 10:05 [facility] 11/05 08:07 Order name: NT PRO-BNP; Complete Time: 10:05 [facility] 11/05 08:07 Order name: PT-INR; Complete Time: 09:22 [facility] 11/05 08:07 Order name: Troponin (emerg Dept Use Only); Complete Time: 10:05 [facility] 11/05 08:07 Order name: XRAY Chest (1 view); Complete Time: 09:22 [facility] 11/05 08:07 Order name: EKG; Complete Time: 08:08 [facility] 11/05 08:07 Order name: Cardiac monitoring; Complete Time: 09:00 [facility] 11/05 10:06 Order name: Troponin I; Complete Time: 11:08 [facility] 11/05 08:07 Order name: EKG - Nurse/Tech; Complete Time: 11:07 [facility] 11/05 08:07 Order name: IV Saline Lock; Complete Time: 09:00 [facility] 11/05 08:07 Order name: Labs collected and sent; Complete Time: 09:00 [facility] 11/05 08:07 Order name: O2 Per Protocol; Complete Time: 09:01 [facility] 11/05 08:07 Order name: O2 Sat Monitoring; Complete Time: 09:01 [facility] Administered Medications: 10:08 Not Given (Duplicate Order): Aspirin 162 mg PO once sg 11:17 Drug: Aspirin 81 mg Route: PO; sg 11:18 Drug: Imdur 30 mg Route: PO; sg Disposition: 11/05/18 10:06 Discharged to Home. Impression: Chest pain, unspecified, Essential (primary) hypertension, Tobacco abuse counseling, Tobacco use. - Condition is Stable. - Discharge Instructions: Nonspecific Chest Pain, Hypertension, Steps to Quit Smoking, Smoking Hazards, Nonspecific Chest Pain, [id number], Hypertension, Mune-tr-Eeks, Aspirin and Your Heart, Managing Your Hypertension. - Prescriptions for Isosorbide Mononitrate 30 mg Oral Tablet Sustained Release 24 hr - take 1 tablet by ORAL route once daily in the morning; 30 tablet. - Medication Reconciliation Form, Thank You Letter, Antibiotic Education, Prescription Opioid Use form. - Follow up: Private Physician; When: 2 - 3 days; Reason: Recheck today's complaints, Continuance of care, Re-evaluation by your physician. Follow up: Nazario Anderson; When: 2 - 3 days; Reason: Recheck today's complaints, Re-evaluation by your physician. - Problem is new. - Symptoms have improved. Signatures: Dispatcher [employer] EDMehul Valenzuela RN RN Lenard Bejarano MD MD cha Solis, Maria ms Hall, Patricia RN RN ph Corrections: (The following items were deleted from the chart) 12:15 10:06 11/05/2018 10:06 Discharged to Home. Impression: Chest pain, unspecified; ms Essential (primary) hypertension; Tobacco abuse counseling; Tobacco use. Condition is Stable. Discharge Instructions: Nonspecific Chest Pain, Hypertension, Steps to Quit Smoking, Smoking Hazards, Nonspecific Chest Pain, [id number], Hypertension, Byou-ar-Rkcr, Aspirin and Your Heart, Managing Your Hypertension. Prescriptions for Isosorbide Mononitrate 30 mg Oral Tablet Sustained Release 24 hr - take 1 tablet by ORAL route once daily in the morning; 30 tablet. and Forms are Medication Reconciliation Form, Thank You Letter, Antibiotic Education, Prescription Opioid Use. Follow up: Private Physician; When: 2 - 3 days; Reason: Recheck today's complaints, Continuance of care, Re-evaluation by your physician. Follow up: Nazario Anderson; When: 2 - 3 days; Reason: Recheck today's complaints, Re-evaluation by your physician. Problem is new. Symptoms have improved. rambo
[2018-11-05] MEDS ORDERED: ASPIRIN 81 MG CHEWABLE TABLET ONE (11:34)
[2018-11-05 12:31] VITALS: BP 147/90; O2SAT 98
[2018-11-05 12:32] VITALS: TEMP 98.2
--- NOTE | 2018-11-05 21:03 | EKG ---
Test Date: 2018-11-05 Test Time: 09:19:31 Desktop Publisher: LUCIANO MEASUREMENT RESULTS: Intervals: Rate: 96 IN: 132 QRSD: 90 QT: 344 QTc: 434 [place]: P: 55 IN: 132 QRS: 65 T: -26 INTERPRETIVE STATEMENTS: Normal sinus rhythm Nonspecific ST and T wave abnormality Abnormal ECG Compared to ECG 10/29/2018 15:07:13 ST (T wave) deviation now present T-wave abnormality no longer present Electronically Signed On 11-05-18 21:02:10 CDT by Eduardo Hernandes
== END 2018-11-05 12:15 | disposition home or self-care (01) ==
LOC: ER 07:52
DX: R07.89 Other chest pain (principal); I10 Essential (primary) hypertension; Z72.0 Tobacco use; Z71.6 Tobacco abuse counseling; J44.9 Chronic obstructive pulmonary disease, unspecified; E11.9 Type 2 diabetes mellitus without complications; E78.00 Pure hypercholesterolemia, unspecified; I25.2 Old myocardial infarction; Z79.82 Long term (current) use of aspirin; Z79.51 Long term (current) use of inhaled steroids; Z88.1 Allergy status to other antibiotic agents
CPT/HCPCS: 36415; 71045; 80048; 80076; 83735; 83880; 84484; 85025; 85610; 93005; 99285

== ENCOUNTER 2018-11-13 09:54 | Emergency (ER) | payer SELFPAY ==
--- OUTSIDE RECORDS SUMMARY | 2018-11-13 10:06 | XMS REPORT ---
:1965 [facility] Address [address] [place] [address] Dr. Fierro [address] [place] [id number] Care Team Providers Name Role Phone Unavailable Unavailable Unavailable Problems This patient has no known problems. Allergies, Adverse Reactions, Alerts This patient has no known allergies or adverse reactions. Medications This patient has no known medications.
[2018-11-13 11:55] LABS: Absolute Lymphocytes (CBC) 1.9 K/uL (0.7-4.9); Absolute Monocytes 0.6 K/uL (0.1-1.3); Absolute Neutrophil 5.2 K/uL (1.8-8.0); Eosinophils % 2.2 % (0-4.4); Hematocrit 44.3 % (39.6-49.0); Lymphocytes % 23.5 % (15.3-44.8); MPV 9.5 fL (7.6-11.3); Monocytes % 7.5 % (3.3-12.3); RBC Red Blood Cell Count 5.01 M/uL (4.33-5.43)
[2018-11-13 11:56] LABS: Protime INR 1.02
[2018-11-13 12:16] LABS: ALT/SGPT 110 U/L (12-78); AST/SGOT 41 U/L (15-37); Albumin 3.5 g/dL (3.4-5.0); Alkaline Phosphatase 43 U/L (45-117); BUN Blood Urea Nitrogen 15 mg/dL (7-18); Bicarbonate 28 mmol/L (21-32); Bilirubin Direct < 0.1 mg/dL (0-0.2); Bilirubin Total 0.3 mg/dL (0.2-1.0); Creatine Phosphokinase 309 U/L (39-308); Glucose Level 117 mg/dL (74-106); NT PRO-BNP 42 pg/mL (<125); Potassium 3.6 mmol/L (3.5-5.1); Protein, Total 6.7 g/dL (6.4-8.2); Sodium Level 140 mmol/L (136-145); Troponin (Emerg Dept Use Only) < 0.02 ng/mL (0.0-0.045)
--- NOTE | 2018-11-13 12:17 | RAD REPORT ---
EXAM DESCRIPTION: RAD - Chest Pa And Lat (2 Views) - 11/13/2018 12:02 pm CLINICAL HISTORY: LE swelling Chest pain. COMPARISON: Chest Single View dated 11/05/2018; Chest Single View dated 10/20/2018; Chest Single View d ated 10/17/2018; Chest Single View dated 10/07/2018 FINDINGS: The lungs are emphysematous but clear. The heart is normal in size. No displaced fractures . IMPRESSION: COPD.
--- NOTE | 2018-11-13 12:31 | EDPHYS ---
Physician Documentation [facility] Name: Juan Miguel Langston Age: 53 yrs Sex: Male : 1965 Arrival Date: 11/13/2018 Time: 09:57 Bed 23 Private MD: None, None ED Physician Varghese Sow HPI: 11/13 11:26 This 53 yrs old Male presents to ER via Ambulatory with complaints of Leg wa Swelling, Arm swelling. 11:26 The patient presents with swelling. The complaints affect the both legs and arms. wa Context: The problem was sustained at home, resulted from an unknown cause, the patient can fully bear weight, the patient is able to ambulate, without difficulty, Problem is a result from a previous injury: No. states feels like "fluid build up" in both legs and arms over a long period of time. h/o HTN and COPD. denies pain. Denies SOB worse from his baseline. Onset: The symptoms/episode began/occurred 6 week(s) ago. Modifying factors: The symptoms are alleviated by nothing. the symptoms are aggravated by nothing. Associated signs and symptoms: The patient has no apparent associated signs or symptoms. Treatment prior to arrival includes: no previous treatment. Severity of symptoms: At their worst the symptoms were moderate, in the emergency department the symptoms are unchanged. The patient has not experienced similar symptoms in the past. The patient has experienced similar episodes in the past, a few times. The patient has not recently seen a physician. 12:33 as noted above. wa Historical: - Allergies: 10:03 Azithromycin; sv 10:03 Metoprolol Tartrate; sv - PMHx: 10:03 Angina; COPD; Diabetes - NIDDM; High Cholesterol; Hypertension; Myocardial infarction; sv Sleep Apnea; - Immunization history:: Adult Immunizations unknown. - Social history:: Smoking status: Patient uses tobacco products, smokes one-half pack cigarettes per day. - Ebola Screening: : No symptoms or risks identified at this time. ROS: 11:28 Constitutional: Negative for fever, chills, and weight loss, Eyes: Negative for injury, wa pain, redness, and discharge, ENT: Negative for injury, pain, and discharge, Neck: Negative for injury, pain, and swelling, Cardiovascular: Negative for chest pain, palpitations, and edema, Respiratory: Negative for shortness of breath, cough, wheezing, and pleuritic chest pain, Abdomen/GI: Negative for abdominal pain, nausea, vomiting, diarrhea, and constipation, Back: Negative for injury and pain, : Negative for injury, bleeding, discharge, and swelling, Skin: Negative for injury, rash, and discoloration, Neuro: Negative for headache, weakness, numbness, tingling, and seizure, Psych: Negative for depression, anxiety, suicide ideation, homicidal ideation, and hallucinations. 11:28 MS/extremity: Positive for swelling, of the left leg and right leg and left arm and right arm, Negative for abrasion, contusion, deformity, ecchymosis, erythema. 11:28 All other systems are negative. Exam: 11:29 Constitutional: This is a well developed, well nourished patient who is awake, alert, wa and in no acute distress. Head/Face: Normocephalic, atraumatic. Eyes: Pupils equal round and reactive to light, extra-ocular motions intact. Lids and lashes normal. Conjunctiva and sclera are non-icteric and not injected. Cornea within normal limits. Periorbital areas with no swelling, redness, or edema. ENT: Nares patent. No nasal discharge, no septal abnormalities noted. Tympanic membranes are normal and external auditory canals are clear. Oropharynx with no redness, swelling, or masses, exudates, or evidence of obstruction, uvula midline. Mucous membranes moist. Neck: Trachea midline, no thyromegaly or masses palpated, and no cervical lymphadenopathy. Supple, full range of motion without nuchal rigidity, or vertebral point tenderness. No Meningismus. Chest/axilla: Normal chest wall appearance and motion. Nontender with no deformity. No lesions are appreciated. Cardiovascular: Regular rate and rhythm with a normal S1 and S2. No gallops, murmurs, or rubs. Normal PMI, no JVD. No pulse deficits. Abdomen/GI: Soft, non-tender, with normal bowel sounds. No distension or tympany. No guarding or rebound. No evidence of tenderness throughout. Back: No spinal tenderness. No costovertebral tenderness. Full range of motion. Skin: Warm, dry with normal turgor. Normal color with no rashes, no lesions, and no evidence of cellulitis. Neuro: Awake and alert, GCS 15, oriented to person, place, time, and situation. Cranial nerves II-XII grossly intact. Motor strength 5/5 in all extremities. Sensory grossly intact. Cerebellar exam normal. Normal gait. Psych: Awake, alert, with orientation to person, place and time. Behavior, mood, and affect are within normal limits. 11:29 Respiratory: the patient does not display signs of respiratory distress, Respirations: normal, Breath sounds: coarse, scattered, Respiratory rate: normal 11:29 Musculoskeletal/extremity: Extremities: mild edema noted at level of both shins. normal color and temp. no swelling noted in upper extremities. Vital Signs: 10:04 BP 147 / 74; Pulse 104; Resp 20; Temp 98.8(O); Pulse Ox 95% ; Weight 114.76 kg; Height sv 5 ft. 6 in. (167.64 cm); Pain 8/10; 12:25 BP 160 / 95; Pulse 71; Resp 19; Pulse Ox 98% on R/A; aj 10:04 Body Mass Index 40.84 (114.76 kg, 167.64 cm) sv MDM: 10:53 Patient medically screened. wa 11:31 Differential diagnosis: h/o CAD and HTN c/o swelling. less than +1 pitting noted wa bilateral shins. otherwise nml ext exam. will work up to exclude CHF exacerbation. no signs to suggest DVT. 12:26 Data reviewed: vital signs, nurses notes, lab test result(s), EKG, radiologic studies. wa Test interpretation: by ED physician or midlevel provider: EKG: HR 77. sinus. nml axis. noted concaved ST segment in most leads. no obvious zonal ischemia. . 12:28 Test interpretation: by ED physician or midlevel provider: CXR: emphesema. no acute wa process. Labs noted within normal limits except AST 110. nml pro-BNP and troponin. . Special discussion: no acute CHF per eval. mild LE edema. will add a mild diuretic to his regimen and advise close f/u. 11/13 11:11 Order name: BMP; Complete Time: 12:24 11/13 11:11 Order name: CBC with Diff; Complete Time: 12:25 11/13 11:11 Order name: CPK; Complete Time: 12:25 11/13 11:11 Order name: Hepatic Function; Complete Time: 12:11/13 11:11 Order name: NT PRO-BNP; Complete Time: 11/13 11:11 Order name: PT-INR; Complete Time: 11/13 11:11 Order name: XRAY Chest Pa And Lat (2 Views); Complete Time: 11/13 11:11 Order name: Troponin (emerg Dept Use Only); Complete Time: 11/13 11:11 Order name: EKG; Complete Time: 11/13 11:11 Order name: Cardiac monitoring; Complete Time: 11/13 11:11 Order name: EKG - Nurse/Tech; Complete Time: 11/13 11:11 Order name: IV Saline Lock; Complete Time: 11/13 11:11 Order name: Labs collected and sent; Complete Time: 11/13 11:11 Order name: O2 Per Protocol; Complete Time: 11/13 11:11 Order name: O2 Sat Monitoring; Complete Time: wi Administered Medications: No medications were administered Disposition: 11/13/18 12:31 Discharged to Home. Impression: Bilateral Lower Extremity Edema. - Condition is Stable. - Discharge Instructions: Peripheral Edema. - Prescriptions for Hydrochlorothiazide 12.5 mg Oral Tablet - take 1 tablet by ORAL route once daily; 30 tablet. - Medication Reconciliation Form, Thank You Letter, Antibiotic Education, Prescription Opioid Use form. - Follow up: Eduardo Hernandes MD; When: 2 - 3 days; Reason: Recheck today's complaints. - Problem is an acute exacerbation. - Symptoms are unchanged. - Notes: elevate your feet when at rest. take the new medication to help decrease fluid. see your doctor for further evaluation and continued care within 3 days. return to ER for any reapidly worsenign concerns you may have Signatures: Dispatcher [employer] Nilda Smyth RN RN sv Myers, Amanda, RN RN aj Appiah, William, MD MD wi Corrections: (The following items were deleted from the chart) 12:59 12:31 11/13/2018 12:31 Discharged to Home. Impression: Bilateral Lower Extremity Edema. aj Condition is Stable. Forms are Medication Reconciliation Form, Thank You Letter, Antibiotic Education, Prescription Opioid Use. Follow up: Eduardo Hernandes; When: 2 - 3 days; Reason: Recheck today's complaints. Problem is an acute exacerbation. Symptoms are unchanged. wa
--- NOTE | 2018-11-13 12:31 | ER ---
Nurse's Notes [facility] Name: Juan Miguel Langston Age: 53 yrs Sex: Male : 1965 Arrival Date: 11/13/2018 Time: 09:57 Bed 23 Private MD: None, None Diagnosis: Bilateral Lower Extremity Edema Presentation: 11/13 10:02 Presenting complaint: Patient states: BLE swelling, BUE swelling that has been ongoing sv for a long time. Transition of care: patient was not received from another setting of care. Onset of symptoms is unknown. Risk Assessment: Do you want to hurt yourself or someone else? Patient reports no desire to harm self or others. Care prior to arrival: None. 10:02 Method Of Arrival: Ambulatory sv 10:02 Acuity: DESTINY 3 sv 12:42 Initial Sepsis Screen: Does the patient meet any 2 criteria? No. Patient's initial aj sepsis screen is negative. Does the patient have a suspected source of infection? No. Patient's initial sepsis screen is negative. Triage Assessment: 10:04 General: Appears in no apparent distress. uncomfortable, well developed, Behavior is sv calm, cooperative, appropriate for age. Pain: Complains of pain in right arm, left arm, right leg and left leg Pain currently is 8 out of 10 on a pain scale. Neuro: Level of Consciousness is awake, alert, obeys commands, Oriented to person, place, time, situation, Moves all extremities. Full function Gait is steady. Respiratory: Airway is patent Respiratory effort is even, unlabored, Respiratory pattern is regular, symmetrical. Historical: - Allergies: 10:03 Azithromycin; sv 10:03 Metoprolol Tartrate; sv - PMHx: 10:03 Angina; COPD; Diabetes - NIDDM; High Cholesterol; Hypertension; Myocardial infarction; sv Sleep Apnea; - Immunization history:: Adult Immunizations unknown. - Social history:: Smoking status: Patient uses tobacco products, smokes one-half pack cigarettes per day. - Ebola Screening: : No symptoms or risks identified at this time. Screenin:15 Abuse screen: Denies threats or abuse. Denies injuries from another. Nutritional aj screening: No deficits noted. Tuberculosis screening: No symptoms or risk factors identified. Fall Risk None identified. Assessment: 11:15 General: Appears in no apparent distress. comfortable, Behavior is calm, cooperative, aj appropriate for age. Pain: Denies pain. Neuro: Level of Consciousness is awake, alert, obeys commands, Oriented to person, place, time, situation, Appropriate for age. Cardiovascular: Reports since Swelling to BLE and BUE that is chronic Denies chest pain. Respiratory: Airway is patent Respiratory effort is even, unlabored, Respiratory pattern is regular, symmetrical. GI: No signs and/or symptoms were reported involving the gastrointestinal system. Derm: Skin is intact, is healthy with good turgor, Skin is pink, warm \T\ dry. normal. 12:42 Reassessment: Patient appears in no apparent distress at this time. No changes from aj previously documented assessment. Patient and/or family updated on plan of care and expected duration. Pain level reassessed. Patient is alert, oriented x 3, equal unlabored respirations, skin warm/dry/pink. Vital Signs: 10:04 BP 147 / 74; Pulse 104; Resp 20; Temp 98.8(O); Pulse Ox 95% ; Weight 114.76 kg; Height sv 5 ft. 6 in. (167.64 cm); Pain 8/10; 12:25 BP 160 / 95; Pulse 71; Resp 19; Pulse Ox 98% on R/A; aj 10:04 Body Mass Index 40.84 (114.76 kg, 167.64 cm) sv ED Course: 09:57 Patient arrived in ED. mr 09:57 None, None is Private Physician. mr 10:03 Triage completed. sv 10:04 Arm band placed on Patient placed in waiting room, Patient notified of wait time. sv 10:53 Varghese Sow MD is Attending Physician. wa 11:04 Thu Wilson, RN is Primary Nurse. aj 11:15 Patient has correct armband on for positive identification. Placed in gown. Bed in low aj position. Call light in reach. Side rails up X 1. Adult w/ patient. desk monitor on. Pulse ox on. NIBP on. 11:29 EKG done, by technician telecommunication systems. reviewed by Varghese Sow MD. at1 11:44 Missed attempt(s): 20 gauge in left antecubital area. lt1 11:45 Missed attempt(s): 20 gauge in left antecubital area. lt1 11:45 Initial lab(s) drawn, by tn, sent to lab. Inserted saline lock: 22 gauge in left hand, lt1 using aseptic technique. 11:58 Patient moved to radiology via wheelchair. [facility] 12:00 X-ray completed. Patient tolerated procedure well. Patient moved back from radiology. [facility] 12:01 XRAY Chest Pa And Lat (2 Views) In Process Unspecified. EDMS 12:30 Eduardo Hernandes MD is Referral Physician. hi 12:42 No provider procedures requiring assistance completed. IV discontinued, intact, aj bleeding controlled, No redness/swelling at site. Pressure dressing applied. Administered Medications: No medications were administered Outcome: 12:31 Discharge ordered by . hi 12:42 Discharged to home ambulatory, with significant other. 12:42 Condition: good 12:42 Discharge instructions given to patient, Instructed on discharge instructions, follow up and referral plans. Demonstrated understanding of instructions, follow-up care, medications, Prescriptions given X 1. 12:59 Patient left the ED. aj Signatures: Dispatcher [employer] EDNilda Nguyen RN RN sv Myers, Amanda, Tish Kebede RN Gris Tenorio [facility] Thu Pond, front end software developer EKG Tat1 Varghese Sow MD MD wa Tran, Leah lt1 Corrections: (The following items were deleted from the chart) 10:05 10:04 BP 147 / 74; Pulse 104bpm; Resp 20bpm; Pulse Ox 95%; 114.76 kg; Height 5 ft. 6 sv in.; BMI: 40.8; Pain 8/10; sv
--- NOTE | 2018-11-13 15:41 | EKG ---
Test Date: 2018-11-13 Test Time: 11:22:19 Wheelabrator Operator: SERG MEASUREMENT RESULTS: Intervals: Rate: 77 GA: 140 QRSD: 102 QT: 368 QTc: 416 [place]: P: 40 GA: 140 QRS: 67 T: 2 INTERPRETIVE STATEMENTS: Normal sinus rhythm ST abnormality, non specific Abnormal ECG Compared to ECG 11/05/2018 09:19:31 No significant changes Electronically Signed On 11-13-18 15:40:36 CDT by Eduardo Hernandes
[2018-11-13 16:21] VITALS: BP 160/95; O2SAT 98
[2018-11-13 16:23] VITALS: TEMP 98.8
== END 2018-11-13 12:59 | disposition home or self-care (01) ==
LOC: ER 09:54
DX: R60.0 Localized edema (principal); I10 Essential (primary) hypertension; J44.9 Chronic obstructive pulmonary disease, unspecified; E11.9 Type 2 diabetes mellitus without complications; E78.00 Pure hypercholesterolemia, unspecified; I25.2 Old myocardial infarction; F17.210 Nicotine dependence, cigarettes, uncomplicated
CPT/HCPCS: 36415; 71046; 80048; 80076; 82550; 83880; 84484; 85025; 85610; 93005; 99284

== ENCOUNTER 2018-12-22 12:51 | Emergency (ER) | payer SELFPAY ==
--- OUTSIDE RECORDS SUMMARY | 2018-12-22 12:57 | XMS REPORT ---
:1965 [facility] Address [address] [place] [address] Dr. Fierro [address] [place] [id number] Care Team Providers Name Role Phone Unavailable Unavailable Unavailable Problems This patient has no known problems. Allergies, Adverse Reactions, Alerts This patient has no known allergies or adverse reactions. Medications This patient has no known medications.
[2018-12-22] MEDS ORDERED: LEVALBUTEROL 1.25 MG/3 ML NEB ONE (13:43)
[2018-12-22] MEDS ORDERED: NA CHLORIDE 0.9% 250 ML ONE (13:43)
[2018-12-22 13:57] LABS: Absolute Lymphocytes (CBC) 2.2 K/uL (0.7-4.9); Basophils % 0.2 % (0-1.3); Lymphocytes % 25.5 % (15.3-44.8); MPV 9.4 fL (7.6-11.3); Monocytes % 10.1 % (3.3-12.3); RBC Red Blood Cell Count 5.21 M/uL (4.33-5.43)
[2018-12-22 14:17] LABS: BUN Blood Urea Nitrogen 23 mg/dL (7-18); Bicarbonate 28 mmol/L (21-32); Glucose Level 117 mg/dL (74-106); NT PRO-BNP 6 pg/mL (<125); Potassium 3.8 mmol/L (3.5-5.1); Sodium Level 139 mmol/L (136-145); Troponin (Emerg Dept Use Only) < 0.02 ng/mL (0.0-0.045)
--- NOTE | 2018-12-22 14:29 | RAD REPORT ---
EXAM DESCRIPTION: RAD - Chest Single View - 12/22/2018 2:21 pm CLINICAL HISTORY: Chest pain, shortness of breath COMPARISON: November 13 TECHNIQUE: AP portable chest image was obtained 1418 hours . FINDINGS: No focal lung parenchymal process. No failure or volume overload. Interstitial markings ar e prominent but not clearly different from the comparison. Heart and vasculature are normal. No measurable pleural effusion and no pneumothorax. No acute bony abnormality seen. No acute aortic findings suspected. IMPRESSION: No acute cardiopulmonary process. No significant change from comparison.
--- NOTE | 2018-12-22 16:46 | EDPHYS ---
Physician Documentation [facility] Name: Juan Miguel Langston Age: 53 yrs Sex: Male : 1965 Arrival Date: 12/22/2018 Time: 12:56 Bed 24 Private MD: ED Physician Nate Donald HPI: 12/22 13:58 This 53 yrs old Male presents to ER via EMS with complaints of Chest Pain. rn 13:58 The patient or guardian reports chest pain that is located primarily in the substernal rn area. Onset: 2 day(s) ago. The pain does not radiate. Associated signs and symptoms: Pertinent positives: shortness of breath, Pertinent negatives: abdominal pain, cough, diaphoresis, lightheadedness, syncope, vomiting. The chest pain is described as aching. Duration: The patient or guardian reports multiple episodes, that are intermittent. Modifying factors: The symptoms are alleviated by nothing. the symptoms are aggravated by nothing. The patient has experienced similar episodes in the past. 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 No fever or new cough. NO abd pain. No vomiting. . Historical: - Allergies: 13:00 Azithromycin; ca1 13:00 Metoprolol Tartrate; ca1 - Home Meds: 13:00 aspirin 81 mg Oral chew 1 tab once daily [Active]; lisinopril 40 mg oral tab 1 tab once ca1 daily [Active]; - PMHx: 13:00 Angina; COPD; Diabetes - NIDDM; High Cholesterol; Hypertension; Myocardial infarction; ca1 Sleep Apnea; - PSHx: 13:00 None; ca1 - Immunization history:: Adult Immunizations up to date, Flu vaccine is up to date. - Social history:: Smoking status: Patient uses tobacco products, 2-3 cigarettes a day. - Ebola Screening: : Patient negative for fever greater than or equal to 101.5 degrees Fahrenheit, and additional compatible Ebola Virus Disease symptoms Patient denies exposure to infectious person Patient denies travel to an Ebola-affected area in the 21 days before illness onset. - Family history:: not pertinent. - Hospitalizations: : No recent hospitalization is reported. ROS: 13:58 Constitutional: Negative for fever, chills, and weight loss, Eyes: Negative for injury, rn pain, redness, and discharge, Neck: Negative for injury, pain, and swelling, Cardiovascular: Negative for palpitations, and edema, Respiratory: Negative for wheezing, and pleuritic chest pain, Abdomen/GI: Negative for abdominal pain, nausea, vomiting, diarrhea, and constipation, MS/Extremity: Negative for injury and deformity, Skin: Negative for injury, rash, and discoloration, Neuro: Negative for headache, weakness, numbness, tingling, and seizure. Exam: 13:58 Constitutional: This is a well developed, well nourished patient who is awake, alert, rn appears anxious Head/Face: Normocephalic, atraumatic. Eyes: Pupils equal round and reactive to light, extra-ocular motions intact. Lids and lashes normal. Conjunctiva and sclera are non-icteric and not injected. Cornea within normal limits. Periorbital areas with no swelling, redness, or edema. ENT: dry MM Cardiovascular: tachycardic, regular, no murmur Respiratory: Faint bilateral wheezing, speaking full sentences, no labored breathing. Abdomen/GI: soft, non-tender MS/ Extremity: Pulses equal, no cyanosis. + bilateral non-pitting edema Neuro: Awake and alert, GCS 15, oriented to person, place, time, and situation. Cranial nerves II-XII grossly intact. Motor strength 5/5 in all extremities. Sensory grossly intact. Vital Signs: 13:00 BP 138 / 84; Pulse 109; Resp 15 S; Temp 98.4(O); Pulse Ox 95% on R/A; Weight 114.76 kg ca1 (R); Height 5 ft. 6 in. (167.64 cm); Pain 7/10; 14:01 BP 124 / 74; Pulse 93; Resp 17 S; Pulse Ox 92% on R/A; ca1 14:36 BP 136 / 65; Pulse 75; Resp 15 S; Pulse Ox 92% on R/A; ca1 15:15 BP 116 / 63; Pulse 89; Resp 17; Pulse Ox 98% on R/A; ca1 16:19 BP 108 / 96; Pulse 90; Resp 20; Temp 98.4(O); Pulse Ox 100% ; ca1 13:00 Body Mass Index 40.83 (114.76 kg, 167.64 cm) ca1 MDM: 13:17 Patient medically screened. rn 15:49 Differential diagnosis: acute myocardial infarction, acute pericarditis, anxiety, rn coronary artery disease chest wall pain, congestive heart failure esophagitis, gastritis, gastroesophageal reflux disease (GERD), pleurisy, pneumonia, pneumothorax. Data reviewed: vital signs, nurses notes, lab test result(s), EKG, radiologic studies, plain films, and as a result, I will discharge patient. 16:13 ED course: Trop neg, no acute changes on ECG, vitals improved, BP stabilized, recommend internet marketing strategist f/u. States last seen Monica and told his arteries where clean. . 12/22 13:24 Order name: CBC with Diff rn 12/22 13:24 Order name: Basic Metabolic Panel rn 12/22 13:24 Order name: N-Terminal Pro-brain Natriuretic Peptide rn 12/22 13:24 Order name: Troponin (emerg Dept Use Only) rn 12/22 15:14 Order name: CBC with Automated Diff; Complete Time: 15:49 EDOK 12/22 15:15 Order name: Basic Metabolic Panel; Complete Time: 15:49 EDOK 12/22 13:24 Order name: IV Start; Complete Time: 13:25 rn 12/22 13:24 Order name: EKG; Complete Time: 15:18 rn 12/22 13:24 Order name: XRAY Chest (1 view) rn 12/22 15:15 Order name: Troponin (Emerg Dept Use Only); Complete Time: 15:49 EDMS 12/22 15:15 Order name: NT PRO-BNP; Complete Time: 15:49 EDOK 12/22 15:16 Order name: RAD; Complete Time: 15:49 EDOK 12/22 13:24 Order name: EKG - Nurse/Tech; Complete Time: 13:25 rn Administered Medications: 13:27 Drug: NS 0.9% 250 ml Route: IV; Rate: 1 bolus; Site: right hand; ca1 14:00 Follow up: IV Status: Completed infusion ca1 13:27 Drug: Xopenex 1.25 mg Route: Inhalation; ca1 Disposition: 12/22/18 16:14 Discharged to Home. Impression: Hypertension, Chest pain, unspecified. - Condition is Stable. - Discharge Instructions: Nonspecific Chest Pain, Hypertension. - Medication Reconciliation Form, Thank You Letter, Antibiotic Education, Prescription Opioid Use form. - Follow up: Private Physician; When: As needed; Reason: Recheck today's complaints, Re-evaluation by your physician. - Problem is an ongoing problem. - Symptoms have improved. Signatures: Dispatcher [employer] EDNate Arambula MD MD rn Acob, NICCI Lucio RN ca1 Corrections: (The following items were deleted from the chart) 16:21 16:14 12/22/2018 16:14 Discharged to Home. Impression: Hypertension; Chest pain, ca1 unspecified. Condition is Stable. Forms are Medication Reconciliation Form, Thank You Letter, Antibiotic Education, Prescription Opioid Use. Follow up: Private Physician; When: As needed; Reason: Recheck today's complaints, Re-evaluation by your physician. Problem is an ongoing problem. Symptoms have improved. rn
--- NOTE | 2018-12-22 16:46 | ER ---
Nurse's Notes [facility] Name: Juan Miguel Langston Age: 53 yrs Sex: Male : 1965 Arrival Date: 12/22/2018 Time: 12:56 Bed 24 Private MD: Diagnosis: Hypertension;Chest pain, unspecified Presentation: 12/22 12:57 Presenting complaint: EMS states: pt c/o chest pain and shortness of breath since this ca1 morning. Transition of care: patient was not received from another setting of care. Onset of symptoms was December 22, 2018. Risk Assessment: Do you want to hurt yourself or someone else? Patient reports no desire to harm self or others. Initial Sepsis Screen: Does the patient meet any 2 criteria? No. Patient's initial sepsis screen is negative. Does the patient have a suspected source of infection? No. Patient's initial sepsis screen is negative. Care prior to arrival: Medication(s) given: Albuterol Neb x 1, ASA, x 4, Atrovent Neb x 1, Nitroglycerin, x 1, IV initiated. 20 GA, in the right hand. 12:57 Method Of Arrival: EMS: [facility] ca1 12:57 Acuity: DESTINY 3 ca1 Triage Assessment: 13:00 General: Appears in no apparent distress. comfortable, Behavior is calm, cooperative, ca1 appropriate for age. Pain: Complains of pain in chest Pain radiates to across shoulders Pain currently is 7 out of 10 on a pain scale. Quality of pain is described as sharp, and tightness Pain began 4 hours ago. EENT: No deficits noted. No signs and/or symptoms were reported regarding the EENT system. Neuro: Level of Consciousness is awake, alert, obeys commands, Oriented to person, place, time, situation. Cardiovascular: Heart tones S1 S2 present Capillary refill < 3 seconds Patient's skin is warm and dry. Pulses are all present. Rhythm is sinus tachycardia. Respiratory: Reports shortness of breath on exertion since this morning, "that is related to the heat", as pt stated Airway is patent Respiratory effort is even, unlabored, Respiratory pattern is regular, symmetrical, Breath sounds are clear bilaterally. GI: Abdomen is round non-distended, Bowel sounds present X 4 quads. Abd is soft and non tender X 4 quads. : No deficits noted. No signs and/or symptoms were reported regarding the genitourinary system. Derm: Skin is intact, is healthy with good turgor, Skin is pink, warm \\T\\ dry. Musculoskeletal: Circulation, motion, and sensation intact. Capillary refill < 3 seconds, Range of motion: intact in all extremities. Historical: - Allergies: 13:00 Azithromycin; ca1 13:00 Metoprolol Tartrate; ca1 - Home Meds: 13:00 aspirin 81 mg Oral chew 1 tab once daily [Active]; lisinopril 40 mg oral tab 1 tab once ca1 daily [Active]; - PMHx: 13:00 Angina; COPD; Diabetes - NIDDM; High Cholesterol; Hypertension; Myocardial infarction; ca1 Sleep Apnea; - PSHx: 13:00 None; ca1 - Immunization history:: Adult Immunizations up to date, Flu vaccine is up to date. - Social history:: Smoking status: Patient uses tobacco products, 2-3 cigarettes a day. - Ebola Screening: : Patient negative for fever greater than or equal to 101.5 degrees Fahrenheit, and additional compatible Ebola Virus Disease symptoms Patient denies exposure to infectious person Patient denies travel to an Ebola-affected area in the 21 days before illness onset. - Family history:: not pertinent. - Hospitalizations: : No recent hospitalization is reported. Screenin:03 Abuse screen: Denies threats or abuse. Denies injuries from another. Nutritional ca1 screening: No deficits noted. Tuberculosis screening: No symptoms or risk factors identified. Fall Risk IV access (20 points). Assessment: 13:03 Reassessment: : SEE TRIAGE ASSESSMENT. Pain: Complains of pain in chest. ca1 13:03 Pain: Complains of pain in chest Pain does not radiate. Pain radiates to across ca1 shoulder Pain currently is 7 out of 10 on a pain scale. Quality of pain is described as shooting, Pain began 4 hours ago. 13:49 Reassessment: Patient appears in no apparent distress at this time. Patient and/or ca1 family updated on plan of care and expected duration. Pain level reassessed. Patient is alert, oriented x 3, equal unlabored respirations, skin warm/dry/pink. 14:23 Reassessment: Patient appears in no apparent distress at this time. Patient and/or ca1 family updated on plan of care and expected duration. Pain level reassessed. Patient is alert, oriented x 3, equal unlabored respirations, skin warm/dry/pink. 15:51 Reassessment: Patient appears in no apparent distress at this time. Patient is alert, ca1 oriented x 3, equal unlabored respirations, skin warm/dry/pink. 16:06 Reassessment: Dr. Donald at bedside. ca1 16:19 Reassessment: Patient appears in no apparent distress at this time. Patient is alert, ca1 oriented x 3, equal unlabored respirations, skin warm/dry/pink. Vital Signs: 13:00 BP 138 / 84; Pulse 109; Resp 15 S; Temp 98.4(O); Pulse Ox 95% on R/A; Weight 114.76 kg ca1 (R); Height 5 ft. 6 in. (167.64 cm); Pain 7/10; 14:01 BP 124 / 74; Pulse 93; Resp 17 S; Pulse Ox 92% on R/A; ca1 14:36 BP 136 / 65; Pulse 75; Resp 15 S; Pulse Ox 92% on R/A; ca1 15:15 BP 116 / 63; Pulse 89; Resp 17; Pulse Ox 98% on R/A; ca1 16:19 BP 108 / 96; Pulse 90; Resp 20; Temp 98.4(O); Pulse Ox 100% ; ca1 13:00 Body Mass Index 40.83 (114.76 kg, 167.64 cm) ca1 ED Course: 12:56 Patient arrived in ED. ca1 12:56 Khadijah Miranda, RN is Primary Nurse. ca1 12:59 Triage completed. ca1 13:00 Arm band placed on right wrist. EKG completed in triage. Results shown to MD. ca1 13:03 Patient has correct armband on for positive identification. Placed in gown. Bed in low ca1 position. Call light in reach. Side rails up X 1. act english tutor on. Pulse ox on. NIBP on. Warm blanket given. 13:03 No provider procedures requiring assistance completed. Maintain EMS IV. Dressing ca1 intact. Good blood return noted. Site clean \\T\\ dry. Gauge \\T\\ site: G20, R hand. Patient maintains SpO2 saturation greater than 95% on room air. 13:09 EKG done, by catechist. reviewed by Nate Donald MD. at1 13:17 aNte Donald MD is Attending Physician. rn 14:20 X-ray completed. Portable x-ray completed in exam room. Patient tolerated procedure jb2 well. 16:21 IV discontinued, intact, bleeding controlled, No redness/swelling at site. Pressure ca1 dressing applied. Administered Medications: 13:27 Drug: NS 0.9% 250 ml Route: IV; Rate: 1 bolus; Site: right hand; ca1 14:00 Follow up: IV Status: Completed infusion ca1 13:27 Drug: Xopenex 1.25 mg Route: Inhalation; ca1 Outcome: 16:14 Discharge ordered by . rn 16:21 Discharged to home ambulatory, with significant other. ca1 16:21 Condition: stable 16:21 Discharge instructions given to patient, Instructed on discharge instructions, follow up and referral plans. Demonstrated understanding of instructions, follow-up care. 16:21 Patient left the ED. ca1 Signatures: Primo Amanda2 Nate Donald MD MD rn Gonzales, Amanda, fly tier EKG Tat1 Khadijah Miranda RN RN ca1 Corrections: (The following items were deleted from the chart) 14:23 14:01 BP 124 / 74; Pulse 93bpm; Resp 17bpm; Pulse Ox 92% RA; ca1 ca1
[2018-12-22 18:15] VITALS: TEMP 98.4
[2018-12-22 18:21] VITALS: BP 108/96; O2SAT 100
--- NOTE | 2018-12-23 07:47 | EKG ---
Test Date: 2018-12-22 Test Time: 12:50:05 Manager Research Development: SITA MEASUREMENT RESULTS: Intervals: Rate: 103 NM: 134 QRSD: 102 QT: 316 QTc: 413 [place]: P: 49 NM: 134 QRS: 55 T: -53 INTERPRETIVE STATEMENTS: Sinus tachycardia ST & T wave abnormality, consider inferior ischemia Abnormal ECG Compared to ECG 11/13/2018 11:22:19 Possible ischemia now present Sinus rhythm no longer present ST (T wave) deviation still present Electronically Signed On 12-23-18 07:46:11 CDT by Nazario Anderson
== END 2018-12-22 16:21 | disposition home or self-care (01) ==
LOC: ER 12:51
DX: I10 Essential (primary) hypertension (principal); R07.9 Chest pain, unspecified; J44.9 Chronic obstructive pulmonary disease, unspecified; E11.9 Type 2 diabetes mellitus without complications; E78.00 Pure hypercholesterolemia, unspecified; I25.2 Old myocardial infarction; Z88.1 Allergy status to other antibiotic agents; Z88.8 Allergy status to other drugs, medicaments and biological substances; Z79.82 Long term (current) use of aspirin; Z72.0 Tobacco use
CPT/HCPCS: 36415; 71045; 80048; 83880; 84484; 85025; 93005; 96365; 99285

== ENCOUNTER 2018-12-28 11:54 | Emergency (ER) | payer SELFPAY ==
--- OUTSIDE RECORDS SUMMARY | 2018-12-28 11:57 | XMS REPORT ---
:1965 [facility] Address [address] [place] [address] Dr. Fierro [address] [place] [id number] Care Team Providers Name Role Phone Unavailable Unavailable Unavailable Problems This patient has no known problems. Allergies, Adverse Reactions, Alerts This patient has no known allergies or adverse reactions. Medications This patient has no known medications.
[2018-12-28 12:28] LABS: Absolute Lymphocytes (CBC) 2.2 K/uL (0.7-4.9); Basophils % 0.3 % (0-1.3); Eosinophils % 2.8 % (0-4.4); Hematocrit 48.1 % (39.6-49.0); Lymphocytes % 24.4 % (15.3-44.8); MPV 9.6 fL (7.6-11.3); RBC Red Blood Cell Count 5.33 M/uL (4.33-5.43)
[2018-12-28] MEDS ORDERED: NITROGLYCERIN 0.4 MG/TAB SL ONE (12:30)
[2018-12-28 12:34] LABS: Protime INR 1.03
--- NOTE | 2018-12-28 12:43 | RAD REPORT ---
EXAM DESCRIPTION: Jayda Single View12/28/2018 12:36 pm CLINICAL HISTORY: Chest pain COMPARISON: December 22, 2018 FINDINGS: The lungs appear clear of acute infiltrate. The heart is normal size IMPRESSION: No acute abnormalities displayed
[2018-12-28] MEDS ORDERED: NA CHLORIDE 0.9% 1,000 ML ONE (12:45)
[2018-12-28 12:46] LABS: ALT/SGPT 104 U/L (12-78); AST/SGOT 33 U/L (15-37); Albumin 3.8 g/dL (3.4-5.0); Alkaline Phosphatase 41 U/L (45-117); BUN Blood Urea Nitrogen 13 mg/dL (7-18); Bicarbonate 29 mmol/L (21-32); Bilirubin Direct 0.1 mg/dL (0-0.2); Bilirubin Total 0.4 mg/dL (0.2-1.0); Glucose Level 99 mg/dL (74-106); NT PRO-BNP 19 pg/mL (<125); Potassium 3.7 mmol/L (3.5-5.1); Protein, Total 7.2 g/dL (6.4-8.2); Sodium Level 139 mmol/L (136-145); Troponin (Emerg Dept Use Only) < 0.02 ng/mL (0.0-0.045)
[2018-12-28] MEDS ORDERED: MORPHINE 4 MG/ML SYR ONE (12:56)
[2018-12-28] MEDS ORDERED: ONDANSETRON 4 MG/2 ML VIAL ONE (12:57)
[2018-12-28] MEDS ORDERED: KETOROLAC 30 MG/ML INJ ONE (15:45)
--- NOTE | 2018-12-28 16:02 | EKG ---
Test Date: 2018-12-28 Test Time: 15:42:00 Analytics Director: SERG MEASUREMENT RESULTS: Intervals: Rate: 74 [place]: 142 QRSD: 108 QT: 380 QTc: 421 [place]: P: 57 [place]: 142 QRS: 88 T: -21 INTERPRETIVE STATEMENTS: Normal sinus rhythm Incomplete left bundle branch block T wave abnormality, consider inferior ischemia Abnormal ECG Compared to ECG 12/28/2018 12:05:26 Left bundle-branch block now present T-wave abnormality now present Sinus tachycardia no longer present ST (T wave) deviation no longer present Possible ischemia still present Electronically Signed On 12-28-18 16:01:33 CDT by Nazario Anderson
--- NOTE | 2018-12-28 16:03 | EKG ---
Test Date: 2018-12-28 Test Time: 12:05:26 Packing Checker: MARIO MEASUREMENT RESULTS: Intervals: Rate: 105 [place]: 130 QRSD: 94 QT: 328 QTc: 433 [place]: P: 58 [place]: 130 QRS: 80 T: -42 INTERPRETIVE STATEMENTS: Sinus tachycardia ST & T wave abnormality, consider inferior ischemia Abnormal ECG Compared to ECG 12/22/2018 12:50:05 No significant changes Electronically Signed On 12-28-18 16:01:40 CDT by Nazario Anderson
--- NOTE | 2018-12-28 16:14 | EDPHYS ---
Physician Documentation [facility] Name: Juan Miguel Langston Age: 53 yrs Sex: Male : 1965 Arrival Date: 12/28/2018 Time: 11:56 Bed 20 Private MD: ED Physician Donavon Kaufman HPI: 12/28 12:30 This 53 yrs old Male presents to ER via EMS with complaints of chest pain. cp 12:30 Onset: this morning, at 08:00. The pain does not radiate. cp 12:30 The patient or guardian reports chest pain that is located primarily in the anterior cp chest wall, right. 12:30 The chest pain is described as a pressure. Duration: The patient or guardian reports a cp single episode, that is still ongoing, and unchanged. Severity of pain: in the emergency department the pain is unchanged despite home interventions, took sublingual nitro earlier today w/o relief. Historical: - Allergies: 12:04 Metoprolol Tartrate; aj 12:04 Azithromycin; aj - Home Meds: 12:04 amlodipine 5 mg tab 1 tab once daily [Active]; aspirin 81 mg Oral chew 1 tab once daily aj [Active]; atorvastatin Oral once daily [Active]; detirizine [Active]; Dulera inhalation [Active]; Famotidine Oral [Active]; fluticasone-salmeterol inhalation [Active]; lisinopril 40 mg Oral tab 1 tab once daily [Active]; nitroglycerin 0.4 mg SL subl 1 tab every 5 minutes [Active]; pantoprazole 40 mg Oral TbEC 1 tab once daily [Active]; ProAir HFA inhalation [Active]; - PMHx: 12:04 Angina; COPD; Diabetes - NIDDM; High Cholesterol; Hypertension; Myocardial infarction; aj Sleep Apnea; - PSHx: 12:04 None; aj - Immunization history:: Adult Immunizations up to date. - Social history:: Smoking status: Patient uses tobacco products, smokes one-half pack cigarettes per day. - Ebola Screening: : Patient negative for fever greater than or equal to 101.5 degrees Fahrenheit, and additional compatible Ebola Virus Disease symptoms Patient denies exposure to infectious person Patient denies travel to an Ebola-affected area in the 21 days before illness onset No symptoms or risks identified at this time. ROS: 12:40 Constitutional: Negative for body aches, chills, fever, poor PO intake. cp 12:40 Eyes: Negative for injury, pain, redness, and discharge. cp 12:40 ENT: Negative for drainage from ear(s), ear pain, sore throat, difficulty swallowing, difficulty handling secretions. 12:40 Neck: Negative for pain with movement, pain at rest, stiffness. 12:40 Cardiovascular: Positive for chest pain, Negative for edema, palpitations. 12:40 Respiratory: Negative for cough, shortness of breath, wheezing. 12:40 Abdomen/GI: Negative for abdominal pain, vomiting, diarrhea, constipation, black/tarry stool, rectal bleeding. 12:40 Back: Negative for pain at rest, pain with movement, radiated pain. 12:40 Skin: Negative for cellulitis, rash. 12:40 Neuro: Negative for altered mental status, headache, weakness. 12:40 All other systems are negative. Exam: 12:45 Constitutional: The patient appears in no acute distress, alert, awake, cp non-diaphoretic, non-toxic, well developed, well nourished. 12:45 Head/Face: Normocephalic, atraumatic. cp 12:45 Eyes: Periorbital structures: appear normal, Conjunctiva: normal, no exudate, no injection, Sclera: no appreciated abnormality, Lids and lashes: appear normal, bilaterally. 12:45 ENT: External ear(s): are unremarkable, Nose: is normal, Mouth: Lips: moist, Oral mucosa: pink and intact, moist, Posterior pharynx: is normal, airway is patent, no erythema, no exudate. 12:45 Neck: ROM/movement: is normal, is supple, without pain, no range of motions limitations, no nuchal rigidity. 12:45 Chest/axilla: Inspection: normal, Palpation: is normal, no crepitus, no tenderness. 12:45 Cardiovascular: Rate: tachycardic, Rhythm: regular, Edema: ankle edema, that is mild, JVD: is not appreciated. 12:45 Respiratory: the patient does not display signs of respiratory distress, Respirations: labored breathing, that is mild, Breath sounds: bronchial sounds, are not appreciated, decreased breath sounds, are not appreciated, stridor, is not appreciated, wheezing: is not appreciated. 12:45 Abdomen/GI: Inspection: abdomen appears normal, Palpation: abdomen is soft and non-tender, in all quadrants. 12:45 Neuro: Orientation: to person, place \T\ time. Mentation: is normal, Cerebellar function: is grossly normal, Motor: moves all fours, strength is normal, Sensation: no obvious gross deficits. Vital Signs: 12:04 BP 151 / 70; Pulse 104; Resp 20; Temp 98.4; Pulse Ox 96% on R/A; Weight 114.76 kg; aj Height 5 ft. 6 in. (167.64 cm); 13:04 BP 115 / 60; Pulse 92; Resp 15; Pulse Ox 100% on R/A; aj 13:58 BP 127 / 59; Pulse 87; Resp 17; Temp 98.1(O); Pulse Ox 95% on R/A; mh5 14:37 BP 129 / 61; Pulse 82; Resp 13; Pulse Ox 95% on R/A; aj 15:38 BP 130 / 70; Pulse 77; Resp 15; Pulse Ox 96% on R/A; aj 12:04 Body Mass Index 40.83 (114.76 kg, 167.64 cm) aj MDM: 12:16 Patient medically screened. cp 16:12 The patient was not given aspirin in the Emergency Department. Administered by EMS. cp 16:12 Differential diagnosis: acute myocardial infarction, chest wall pain, pleurisy, cp pneumonia, pneumothorax, stable angina, unstable angina. Data reviewed: vital signs, nurses notes, lab test result(s), EKG, radiologic studies, plain films, I have discussed the patient's presentation/case with the attending Emergency Department Physician; and as a result, I will discharge patient. Special discussion: Based on the patient's history, exam, and Dx evaluation, there is no indication for emergent intervention or inpatient Tx. It is understood by the patient/guardian that if the Sx's persist or worsen they need to return immediately for re-evaluation. 12/28 12:09 Order name: Basic Metabolic Panel; Complete Time: 13:23 cp 12/28 12:09 Order name: CBC with Diff; Complete Time: 13:23 cp 12/28 12:09 Order name: LFT's; Complete Time: 13:23 cp 12/28 12:09 Order name: Magnesium; Complete Time: 12:51 cp 12/28 12:09 Order name: NT PRO-BNP; Complete Time: 12:51 cp 12/28 12:09 Order name: PT-INR; Complete Time: 12:51 cp 12/28 12:09 Order name: Troponin (emerg Dept Use Only); Complete Time: 12:51 cp 12/28 13:23 Interpretation: TROPED < 0.02; Reviewed. 12/28 12:09 Order name: XRAY Chest (1 view); Complete Time: 12:51 cp 12/28 12:10 Order name: Basic Metabolic Panel; Complete Time: 12:51 EDMS 12/28 12:11 Order name: CBC with Automated Diff; Complete Time: 12:51 EDMS 12/28 12:11 Order name: Liver (Hepatic) Function; Complete Time: 12:51 EDMS 12/28 15:06 Order name: Troponin (emerg Dept Use Only) 12/28 12:09 Order name: EKG; Complete Time: 12:11 cp 12/28 12:09 Order name: Cardiac monitoring; Complete Time: 12:17 cp 12/28 12:09 Order name: EKG - Nurse/Tech; Complete Time: 12:17 12/28 12:09 Order name: IV Saline Lock; Complete Time: 12:16 12/28 12:09 Order name: Labs collected and sent; Complete Time: 12:16 cp 12/28 12:09 Order name: O2 Per Protocol; Complete Time: 12:16 12/28 12:09 Order name: O2 Sat Monitoring; Complete Time: 12:16 12/28 15:13 Order name: EKG; Complete Time: 15:13 12/28 15:13 Order name: EKG - Nurse/Tech; Complete Time: 15:54 cp Administered Medications: 12:19 Drug: Nitroglycerin 0.4 mg Route: Sublingual; aj 12:46 Follow up: Response: Pain is unchanged, physician notified aj 12:19 Not Given (Duplicate Order): Aspirin Chewable Tablet 324 mg PO once; 81 mg tablets x 4 aj 12:19 Not Given (Duplicate Order): Nitrostat 0.4 mg Sublingual once aj 12:36 Drug: NS 0.9% 1000 ml Route: IV; Rate: 500 ml/hr; Site: left hand; aj 12:45 Drug: Zofran 4 mg Route: IVP; Site: left hand; aj 15:54 Follow up: Response: No adverse reaction aj 12:46 Drug: morphine 4 mg Route: IVP; Site: left hand; aj 15:55 Follow up: Response: Pain is unchanged, physician notified aj 15:33 Drug: TORadol 30 mg Route: IVP; Site: left hand; aj Disposition: 12/28/18 16:13 Discharged to Home. Impression: Chest pain, unspecified. - Condition is Stable. - Discharge Instructions: Nonspecific Chest Pain, Aspirin and Your Heart. - Prescriptions for Ibuprofen 800 mg Oral Tablet - take 1 tablet by ORAL route every 8 hours As needed take with food; 30 tablet. Protonix 40 mg Oral Tablet, Delayed Release (E.C.) - take 1 tablet by ORAL route once daily; 20 tablet. - Medication Reconciliation Form, Thank You Letter, Antibiotic Education, Prescription Opioid Use form. - Follow up: Private Physician; When: 2 - 3 days; Reason: Recheck today's complaints. - Problem is new. - Symptoms have improved. Addendum: 12/29/2018 17:05 Co-signature as Attending Physician, Donavon Kaufman MD. g s Signatures: Dispatcher [employer] EDThu Payne RN RN aj Page, Corey, PA PA cp Starr, Gregory, MD MD Corrections: (The following items were deleted from the chart) 12/28 16:23 16:13 12/28/2018 16:13 Discharged to Home. Impression: Chest pain, unspecified. aj Condition is Stable. Forms are Medication Reconciliation Form, Thank You Letter, Antibiotic Education, Prescription Opioid Use. Follow up: Private Physician; When: 2 - 3 days; Reason: Recheck today's complaints. Problem is new. Symptoms have improved. cp
--- NOTE | 2018-12-28 16:14 | ER ---
Nurse's Notes [facility] Name: Juan Miguel Langston Age: 53 yrs Sex: Male : 1965 Arrival Date: 12/28/2018 Time: 11:56 Bed 20 Private MD: Diagnosis: Chest pain, unspecified Presentation: 12/28 11:58 Presenting complaint: Patient states: Right side chest pain that started suddenly while aj patient was sitting at home. Transition of care: patient was not received from another setting of care. Onset of symptoms was December 28, 2018. Risk Assessment: Do you want to hurt yourself or someone else? Patient reports no desire to harm self or others. Initial Sepsis Screen: Does the patient meet any 2 criteria? No. Patient's initial sepsis screen is negative. Does the patient have a suspected source of infection? No. Patient's initial sepsis screen is negative. Care prior to arrival: Medication(s) given: ASA, 81 mg, x 4, Nitroglycerin, 0.4 mg SL x 1. 11:58 Method Of Arrival: EMS: [facility] 11:58 Acuity: DESTINY 3 11:58 Care prior to arrival: IV initiated. 20 GA, in the left wrist. Triage Assessment: 12:04 General: Appears in no apparent distress. comfortable, Behavior is calm, cooperative, aj appropriate for age. Pain: Complains of pain in chest. Neuro: Level of Consciousness is awake, alert, obeys commands, Oriented to person, place, time, situation, Appropriate for age. Respiratory: Airway is patent Respiratory effort is even, unlabored, Respiratory pattern is regular, symmetrical. Derm: Skin is intact, is healthy with good turgor, Skin is pink, warm \T\ dry. normal. 12:04 Cardiovascular: Reports chest pain, Capillary refill < 3 seconds in bilateral fingers aj Patient's skin is warm and dry. Historical: - Allergies: 12:04 Metoprolol Tartrate; aj 12:04 Azithromycin; aj - Home Meds: 12:04 amlodipine 5 mg tab 1 tab once daily [Active]; aspirin 81 mg Oral chew 1 tab once daily aj [Active]; atorvastatin Oral once daily [Active]; detirizine [Active]; Dulera inhalation [Active]; Famotidine Oral [Active]; fluticasone-salmeterol inhalation [Active]; lisinopril 40 mg Oral tab 1 tab once daily [Active]; nitroglycerin 0.4 mg SL subl 1 tab every 5 minutes [Active]; pantoprazole 40 mg Oral TbEC 1 tab once daily [Active]; ProAir HFA inhalation [Active]; - PMHx: 12:04 Angina; COPD; Diabetes - NIDDM; High Cholesterol; Hypertension; Myocardial infarction; aj Sleep Apnea; - PSHx: 12:04 None; aj - Immunization history:: Adult Immunizations up to date. - Social history:: Smoking status: Patient uses tobacco products, smokes one-half pack cigarettes per day. - Ebola Screening: : Patient negative for fever greater than or equal to 101.5 degrees Fahrenheit, and additional compatible Ebola Virus Disease symptoms Patient denies exposure to infectious person Patient denies travel to an Ebola-affected area in the 21 days before illness onset No symptoms or risks identified at this time. Screenin:09 Abuse screen: Denies threats or abuse. Denies injuries from another. Nutritional aj screening: No deficits noted. Tuberculosis screening: No symptoms or risk factors identified. Fall Risk None identified. Assessment: 13:03 Reassessment: Patient appears in no apparent distress at this time. No changes from aj previously documented assessment. Patient and/or family updated on plan of care and expected duration. Pain level reassessed. Patient is alert, oriented x 3, equal unlabored respirations, skin warm/dry/pink. Patient resting comfortably in bed watching TV. In NAD. 14:37 Reassessment: Patient appears in no apparent distress at this time. No changes from aj previously documented assessment. Patient and/or family updated on plan of care and expected duration. Pain level reassessed. Patient is alert, oriented x 3, equal unlabored respirations, skin warm/dry/pink. Patient resting comfortably in bed in NAD. Watching TV. 15:37 Reassessment: Patient appears in no apparent distress at this time. No changes from aj previously documented assessment. Patient and/or family updated on plan of care and expected duration. Pain level reassessed. Patient is alert, oriented x 3, equal unlabored respirations, skin warm/dry/pink. EKG paged again for repeat EKG per provider orders. Vital Signs: 12:04 BP 151 / 70; Pulse 104; Resp 20; Temp 98.4; Pulse Ox 96% on R/A; Weight 114.76 kg; aj Height 5 ft. 6 in. (167.64 cm); 13:04 BP 115 / 60; Pulse 92; Resp 15; Pulse Ox 100% on R/A; aj 13:58 BP 127 / 59; Pulse 87; Resp 17; Temp 98.1(O); Pulse Ox 95% on R/A; mh5 14:37 BP 129 / 61; Pulse 82; Resp 13; Pulse Ox 95% on R/A; aj 15:38 BP 130 / 70; Pulse 77; Resp 15; Pulse Ox 96% on R/A; aj 12:04 Body Mass Index 40.83 (114.76 kg, 167.64 cm) aj ED Course: 11:56 Patient arrived in ED. iw 11:58 Thu Wilson, RN is Primary Nurse. aj 12:00 Triage completed. aj 12:04 Arm band placed on left wrist. Patient placed in an exam room. aj 12:09 Lenard Gray PA is PHCP. cp 12:09 Donavon Kaufman MD is Attending Physician. cp 12:16 Basic Metabolic Panel Sent. aj 12:16 CBC with Diff Sent. aj 12:16 LFT's Sent. aj 12:17 Magnesium Sent. aj 12:17 NT PRO-BNP Sent. aj 12:17 Troponin (emerg Dept Use Only) Sent. aj 12:35 X-ray completed. Portable x-ray completed in exam room. Patient tolerated procedure jb2 well. 12:36 XRAY Chest (1 view) In Process Unspecified. EDMS 13:09 No provider procedures requiring assistance completed. aj 15:11 Troponin (emerg Dept Use Only) Sent. aj 16:22 Patient has correct armband on for positive identification. aj 16:22 No provider procedures requiring assistance completed. IV discontinued, intact, aj bleeding controlled, No redness/swelling at site. Pressure dressing applied, 20 to left hand per EMS. Administered Medications: 12:19 Drug: Nitroglycerin 0.4 mg Route: Sublingual; aj 12:46 Follow up: Response: Pain is unchanged, physician notified aj 12:19 Not Given (Duplicate Order): Aspirin Chewable Tablet 324 mg PO once; 81 mg tablets x 4 aj 12:19 Not Given (Duplicate Order): Nitrostat 0.4 mg Sublingual once aj 12:36 Drug: NS 0.9% 1000 ml Route: IV; Rate: 500 ml/hr; Site: left hand; aj 12:45 Drug: Zofran 4 mg Route: IVP; Site: left hand; aj 15:54 Follow up: Response: No adverse reaction aj 12:46 Drug: morphine 4 mg Route: IVP; Site: left hand; aj 15:55 Follow up: Response: Pain is unchanged, physician notified aj 15:33 Drug: TORadol 30 mg Route: IVP; Site: left hand; aj Outcome: 16:13 Discharge ordered by MD. emily 16:22 Discharged to home ambulatory. aj 16:22 Condition: good 16:22 Discharge instructions given to patient, Instructed on discharge instructions, follow up and referral plans. medication usage, Demonstrated understanding of instructions, follow-up care, medications, Prescriptions given X 2. 16:23 Patient left the ED. aj Signatures: Dispatcher [employer] Thu Andersen RN RN aj Buechter, Jesse jb2 Williams, Irene, RN RN iw Page, Corey, PA PA cp Martinez, Maria 5
[2018-12-28 16:33] VITALS: TEMP 98.1
[2018-12-28 16:35] VITALS: BP 130/70; O2SAT 96
--- NOTE | 2018-12-29 08:27 | EKG ---
Test Date: 2018-12-28 Test Time: 12:06:17 Director Of Rehabilitation: MARIO MEASUREMENT RESULTS: Intervals: Rate: 105 ID: [id number] QRSD: 88 QT: 326 QTc: 430 [place]: P: 59 ID: [id number] QRS: 78 T: -44 INTERPRETIVE STATEMENTS: Sinus tachycardia ST & T wave abnormality, consider inferior ischemia Abnormal ECG Compared to ECG 12/28/2018 12:05:26 No significant changes Electronically Signed On 12-29-18 08:25:02 CDT by Nazario Anderson
== END 2018-12-28 16:23 | disposition home or self-care (01) ==
LOC: ER 11:54
DX: R07.9 Chest pain, unspecified (principal); J44.9 Chronic obstructive pulmonary disease, unspecified; E11.9 Type 2 diabetes mellitus without complications; E78.00 Pure hypercholesterolemia, unspecified; I10 Essential (primary) hypertension; I25.2 Old myocardial infarction; Z88.1 Allergy status to other antibiotic agents; Z88.8 Allergy status to other drugs, medicaments and biological substances; Z79.82 Long term (current) use of aspirin; F17.210 Nicotine dependence, cigarettes, uncomplicated
CPT/HCPCS: 36415; 71045; 80048; 80076; 83735; 83880; 84484; 85025; 85610; 93005; 96374; 96375; 99284; J2405; J7030

== ENCOUNTER 2019-01-30 14:45 | Observation (INO) | payer SELFPAY ==
--- OUTSIDE RECORDS SUMMARY | 2019-01-30 14:48 | XMS REPORT ---
:1965 [facility] Address [address] [place] [address] Dr. Fierro [address] [place] [id number] Care Team Providers Name Role Phone Unavailable Unavailable Unavailable Problems This patient has no known problems. Allergies, Adverse Reactions, Alerts This patient has no known allergies or adverse reactions. Medications This patient has no known medications.
[2019-01-30 15:27] LABS: Absolute Lymphocytes (CBC) 1.7 K/uL (0.7-4.9); Basophils % 1.1 % (0-1.3); Hematocrit 44.1 % (39.6-49.0); Lymphocytes % 30.5 % (15.3-44.8); MPV 9.4 fL (7.6-11.3); Protime INR 1.04; RBC Red Blood Cell Count 4.74 M/uL (4.33-5.43)
[2019-01-30 15:45] LABS: ALT/SGPT 69 U/L (12-78); AST/SGOT 20 U/L (15-37); Albumin 3.4 g/dL (3.4-5.0); Alkaline Phosphatase 45 U/L (45-117); BUN Blood Urea Nitrogen 19 mg/dL (7-18); Bicarbonate 25 mmol/L (21-32); Bilirubin Direct < 0.1 mg/dL (0-0.2); Bilirubin Total 0.1 mg/dL (0.2-1.0); Glucose Level 148 mg/dL (74-106); Magnesium 2.1 mg/dL (1.8-2.4); NT PRO-BNP 12 pg/mL (<125); Potassium 3.5 mmol/L (3.5-5.1); Protein, Total 6.5 g/dL (6.4-8.2); Sodium Level 141 mmol/L (136-145); Troponin (Emerg Dept Use Only) < 0.02 ng/mL (0.0-0.045)
--- NOTE | 2019-01-30 16:35 | ER ---
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 Transition of care: patient was not received from another setting of care. Onset of symptoms was January 30, 2019. Risk Assessment: Do you want to hurt yourself or someone else? Patient reports no desire to harm self or others. Initial Sepsis Screen: Does the patient meet any 2 criteria? No. Patient's initial sepsis screen is negative. Does the patient have a suspected source of infection? No. Patient's initial sepsis screen is negative. Care prior to arrival: Medication(s) given: ASA, 81 mg, x 4, Nitroglycerin, x 1, IV initiated. 20 GA, in the left hand. 14:56 Method Of Arrival: EMS: [facility] iw 14:56 Acuity: DESTINY 3 iw Historical: - Allergies: 15:03 Azithromycin; iw 15:03 Metoprolol Tartrate; iw - Home Meds: 15:03 aspirin 81 mg Oral chew 1 tab once daily [Active]; iw 15:15 lisinopril 20 mg oral tab once daily [Active]; isosorbide mononitrate 30 mg Oral Tb24 1 iw tab once daily [Active]; - PMHx: 15:03 Angina; COPD; Diabetes - NIDDM; High Cholesterol; Hypertension; Myocardial infarction; iw Sleep Apnea; - PSHx: 15:03 None; iw - Immunization history:: Adult Immunizations up to date. - Social history:: Smoking status: Patient uses tobacco products, smokes one-half pack cigarettes per day. - Ebola Screening: : Patient negative for fever greater than or equal to 101.5 degrees Fahrenheit, and additional compatible Ebola Virus Disease symptoms Patient denies exposure to infectious person Patient denies travel to an Ebola-affected area in the 21 days before illness onset No symptoms or risks identified at this time. - Family history:: not pertinent. - Hospitalizations: : No recent hospitalization is reported. Screenin:25 Abuse screen: Denies threats or abuse. Denies injuries from another. Nutritional sg screening: No deficits noted. Tuberculosis screening: No symptoms or risk factors identified. Never had TB. Fall Risk None identified. Assessment: 15:20 General: Appears in no apparent distress. well groomed, well developed, well nourished, sg Behavior is calm, cooperative, appropriate for age. Pain: Complains of pain in chest Quality of pain is described as aching. Neuro: Level of Consciousness is awake, alert, obeys commands, Oriented to person, place, time, Poultry Picker are equal bilaterally Moves all extremities. Gait is steady, Speech is normal. Cardiovascular: Capillary refill is brisk in bilateral fingers Patient's skin is warm and dry. Chest pain is described as vague, quality is pressure, is located in anterior chest wall. Respiratory: Airway is patent Respiratory effort is even, unlabored, Respiratory pattern is regular, symmetrical. GI: Abdomen is round non-distended. : No signs and/or symptoms were reported regarding the genitourinary system. EENT: No signs and/or symptoms were reported regarding the EENT system. Derm: Skin is pink, warm \T\ dry. Musculoskeletal: Circulation, motion, and sensation intact. Range of motion: intact in all extremities. Vital Signs: 15:04 BP 155 / 82; Pulse 92; Resp 16; Temp 98.2; Pulse Ox 94% on R/A; Weight 111.13 kg; iw Height 5 ft. 6 in. (167.64 cm); Pain 6/10; 16:00 BP 132 / 74; Pulse 80; Resp 16; Pulse Ox 95% on R/A; rv 15:04 Body Mass Index 39.54 (111.13 kg, 167.64 cm) iw ED Course: 14:52 Patient arrived in ED. sg 15:02 Triage completed. iw 15:04 Arm band placed on. iw 15:15 Mehul Deluca, RN is Primary Nurse. sg 15:16 XRAY Chest (1 view) In Process Unspecified. EDMS 15:20 Patient has correct armband on for positive identification. Bed in low position. Call sg light in reach. Side rails up X2. 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 Pulse ox on. NIBP on. 15:24 Donald, Nate, MD is Attending Physician. rn 15:25 Initial lab(s) drawn, by ED staff, sent to lab. Inserted saline lock: 20 gauge in right sg antecubital area, using aseptic technique. IV inserted by Adeline GRAJEDA. 16:31 Frantz David MD is Hospitalizing Provider. rn 17:25 No provider procedures requiring assistance completed. Patient admitted, IV remains in sg place. intact, No redness/swelling at site. 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 rn 17:46 Admitted to Tele accompanied by tech, family with patient, via wheelchair, room 208, sg with chart, Report called to NICCI MCCAIN 17:46 Condition: stable 17:46 Instructed on the need for admit, safety practices, Demonstrated understanding of instructions, follow-up care. 17:56 Patient left the ED. sg Signatures: Dispatcher [employer] EDMS Mehul Deluca RN RN sg Williams, Irene, RN RN Nate Donald MD MD rn Vicente, Ronaldo, RN RN rv Corrections: (The following items were deleted from the chart) 15:15 15:03 Home Meds: amlodipine 5 mg tab 1 tab once daily; iw 15:15 15:03 Home Meds: atorvastatin Oral once daily; iw 15:15 15:03 Home Meds: detirizine; iw 15:15 15:03 Home Meds: Dulera inhalation; iw 15:15 15:03 Home Meds: Famotidine Oral; iw 15:15 15:03 Home Meds: fluticasone-salmeterol inhalation; iw 15:15 15:03 Home Meds: lisinopril 40 mg Oral tab 1 tab once daily; iw 15:15 15:03 Home Meds: nitroglycerin 0.4 mg SL subl 1 tab every 5 minutes; iw 15:15 15:03 Home Meds: pantoprazole 40 mg Oral TbEC 1 tab once daily; [facility] 15:15 15:03 Home Meds: ProAir HFA inhalation; [facility] 17:47 17:46 Admitted to Tele accompanied by tech, family with patient, via wheelchair, room sg 202, with chart, Report called to NICCI MCCAIN sg
--- NOTE | 2019-01-30 16:35 | EDPHYS ---
Physician Documentation [facility] Name: Juan Miguel Langston Age: 53 yrs Sex: Male : 1965 Arrival Date: 01/30/2019 Time: 14:52 Bed 8 Private MD: ED Physician Nate Donald HPI: 01/30 16:27 This 53 yrs old Male presents to ER via EMS with complaints of Chest Pain, rn General Weakness. 16:27 The patient or guardian reports chest pain that is located primarily in the substernal rn area. Onset: today. The pain does not radiate. Associated signs and symptoms: Pertinent positives: shortness of breath, Pertinent negatives: abdominal pain, cough, diaphoresis, dizziness, lightheadedness, near syncope, palpitations, syncope, vomiting. The chest pain is described as a heaviness, a pressure. Duration: The patient or guardian reports multiple episodes, that are intermittent. Modifying factors: The symptoms are alleviated by NTG, the symptoms are aggravated by exertion. Severity of pain: At its worst the pain was moderate in the emergency department the pain has improved. The patient has experienced similar episodes in the past. The patient has not recently seen a physician. Reports increased frequency of chest pressure, improves with nitrates, had had ME before he states, but does not have enough money to f/u. Worse today. No fever. . Historical: - Allergies: 15:03 Azithromycin; iw 15:03 Metoprolol Tartrate; iw - Home Meds: 15:03 aspirin 81 mg Oral chew 1 tab once daily [Active]; iw 15:15 lisinopril 20 mg oral tab once daily [Active]; isosorbide mononitrate 30 mg Oral Tb24 1 iw tab once daily [Active]; - PMHx: 15:03 Angina; COPD; Diabetes - NIDDM; High Cholesterol; Hypertension; Myocardial infarction; iw Sleep Apnea; - PSHx: 15:03 None; iw - Immunization history:: Adult Immunizations up to date. - Social history:: Smoking status: Patient uses tobacco products, smokes one-half pack cigarettes per day. - Ebola Screening: : Patient negative for fever greater than or equal to 101.5 degrees Fahrenheit, and additional compatible Ebola Virus Disease symptoms Patient denies exposure to infectious person Patient denies travel to an Ebola-affected area in the 21 days before illness onset No symptoms or risks identified at this time. - Family history:: not pertinent. - Hospitalizations: : No recent hospitalization is reported. ROS: 16:27 Constitutional: Negative for fever, chills, and weight loss, Eyes: Negative for injury, rn pain, redness, and discharge, Neck: Negative for injury, pain, and swelling, Cardiovascular: Negative for palpitations, and edema, Respiratory: + sob Abdomen/GI: Negative for abdominal pain, nausea, vomiting, diarrhea, and constipation, MS/Extremity: Negative for injury and deformity, Skin: Negative for injury, rash, and discoloration, Neuro: Negative for headache, weakness, numbness, tingling, and seizure. Exam: 16:27 Constitutional: This is a well developed, well nourished patient who is awake, alert, rn and in no acute distress. Head/Face: Normocephalic, atraumatic. Eyes: Pupils equal round and reactive to light, extra-ocular motions intact. Lids and lashes normal. Conjunctiva and sclera are non-icteric and not injected. Cornea within normal limits. Periorbital areas with no swelling, redness, or edema. ENT: dry MM, no stridor Cardiovascular: Regular rate and rhythm. No pulse deficits. Respiratory: Lungs have equal breath sounds bilaterally, No increased work of breathing, no retractions or nasal flaring. Abdomen/GI: soft, non-tender MS/ Extremity: Pulses equal, no cyanosis. Neurovascular intact. Full, normal range of motion. Equal circumference. Neuro: Awake and alert, GCS 15, oriented to person, place, time, and situation. Cranial nerves II-XII grossly intact. Motor strength 5/5 in all extremities. Sensory grossly intact. Cerebellar exam normal. Normal gait. Vital Signs: 15:04 BP 155 / 82; Pulse 92; Resp 16; Temp 98.2; Pulse Ox 94% on R/A; Weight 111.13 kg; iw Height 5 ft. 6 in. (167.64 cm); Pain 6/10; 16:00 BP 132 / 74; Pulse 80; Resp 16; Pulse Ox 95% on R/A; rv 15:04 Body Mass Index 39.54 (111.13 kg, 167.64 cm) iw MDM: 15:24 Patient medically screened. rn 16:27 Differential diagnosis: acute myocardial infarction, acute pericarditis, anxiety, rn coronary artery disease costochondritis, pleurisy, pneumothorax, stable angina, unstable angina. The patient was given aspirin in the Emergency Department. 16:30 HEART Score: History: Moderately Suspicious (1), ECG: Non specific repolarization rn disturbance / LBTB / PM (1), Age: > 45 and < 65 years (1), Risk Factors: > or = 3 Risk factors for atherosclerotic disease (2), Troponin: < or = 1 x Normal Limit (0). Data reviewed: vital signs, nurses notes, lab test result(s), EKG, radiologic studies, plain films, and as a result, I will admit patient. Counseling: I had a detailed discussion with the patient and/or guardian regarding: the historical points, exam findings, and any diagnostic results supporting the discharge/admit diagnosis, lab results, radiology results, the need for further work-up and treatment in the hospital. 01/30 15:07 Order name: Basic Metabolic Panel; Complete Time: 16:03 01/30 15:07 Order name: CBC with Diff; Complete Time: 15:31 01/30 15:07 Order name: LFT's; Complete Time: 16:03 01/30 15:07 Order name: Magnesium; Complete Time: 16:03 01/30 15:07 Order name: NT PRO-BNP; Complete Time: 16:03 01/30 15:07 Order name: PT-INR; Complete Time: 15:31 01/30 15:07 Order name: Troponin (emerg Dept Use Only); Complete Time: 16:03 01/30 15:07 Order name: XRAY Chest (1 view) iw 01/30 15:07 Order name: EKG; Complete Time: 15:14 01/30 15:07 Order name: Cardiac monitoring; Complete Time: 15:15 01/30 15:07 Order name: EKG - Nurse/Tech; Complete Time: 15:21 01/30 15:07 Order name: IV Saline Lock; Complete Time: 15:16 01/30 15:07 Order name: Labs collected and sent; Complete Time: 15:16 01/30 15:07 Order name: O2 Per Protocol; Complete Time: 15:16 01/30 15:07 Order name: O2 Sat Monitoring; Complete Time: 15:16 iw Administered Medications: 16:53 Not Given (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 Preliminary diagnosis is Angina pectoris, unspecified. - Bed requested for Telemetry/MedSurg (observation). - Status is Observation. sg - Condition is Stable. - Problem is an ongoing problem. - Symptoms have worsened. UTI on Admission? No Signatures: Dispatcher [employer] EDMS Magdalena Blandon RN RN dw Mehul Deluca RN RN sg Adeline Langston RN RN Nate Donald MD MD rn urology: (The following items were deleted from the chart) 15:15 15:03 Home Meds: amlodipine 5 mg tab 1 tab once daily; iw 15:15 15:03 Home Meds: atorvastatin Oral once daily; iw iw 15:15 15:03 Home Meds: detirizine; iw iw 15:15 15:03 Home Meds: Dulera inhalation; iw iw 15:15 15:03 Home Meds: Famotidine Oral; iw iw 15:15 15:03 Home Meds: fluticasone-salmeterol inhalation; iw iw 15:15 15:03 Home Meds: lisinopril 40 mg Oral tab 1 tab once daily; iw iw 15:15 15:03 Home Meds: nitroglycerin 0.4 mg SL subl 1 tab every 5 minutes; iw iw 15:15 15:03 Home Meds: pantoprazole 40 mg Oral TbEC 1 tab once daily; iw iw 15:15 15:03 Home Meds: ProAir HFA inhalation; iw iw 17:06 16:31 Hospitalization Ordered by Frantz David MD for Observation. Preliminary diagnosis dw is Angina pectoris, unspecified. Bed requested for Telemetry/MedSurg (observation). Status is Observation. Condition is Stable. Problem is an ongoing problem. Symptoms have worsened. UTI on Admission? No. rn 17:56 17:06 01/30/2019 16:31 Hospitalization Ordered by Frantz David MD for Observation. sg Preliminary diagnosis is Angina pectoris, unspecified. Bed requested for Telemetry/MedSurg (observation). Status is Observation. Condition is Stable. Problem is an ongoing problem. Symptoms have worsened. UTI on Admission? No. dw
--- NOTE | 2019-01-30 17:21 | RAD REPORT ---
EXAM DESCRIPTION: RAD - Chest Single View - 01/30/2019 3:19 pm CLINICAL HISTORY: Chest pain COMPARISON: December 2018 TECHNIQUE: AP portable chest image was obtained 1518 hours . FINDINGS: No focal lung parenchymal process. Interstitial pattern matches comparison. Heart and vasc ulature are normal. No measurable pleural effusion and no pneumothorax. No acute bony abnormality see n. No acute aortic findings suspected. IMPRESSION: No acute cardiopulmonary process. No significant interval change.
[2019-01-30] MEDS ORDERED: MORPHINE 4 MG/ML SYR IV PRN (18:06)
[2019-01-30] MEDS ORDERED: INSULIN -REGULAR HUMAN 50 UNIT/0.5 ML ML SQ SCH (18:06)
[2019-01-30] MEDS ORDERED: NITROGLYCERIN 0.4 MG/TAB SL PRN (18:06)
--- NOTE | 2019-01-30 18:20 | P.HP ---
Certification for Inpatient Patient admitted to: Observation With expected LOS: <2 Midnights Practitioner: I am a practitioner with admitting privileges, knowledge of patient current condition, hospital course, and medical plan of care. Services: Services provided to patient in accordance with Admission requirements found in Title 42 Section 412.3 of the Code of Federal Regulations Patient History Date of Service: 01/30/19 Reason for admission: Chest pain History of Present Illness: This is a 53-year-old male with history of CAD, hypertension, hyperlipidemia, current cigarette smoker, COPD admitted for chest pain. Patient has been having progressively worsening, more frequent chest pain since July of this year. He describes it as sharp/sometimes pressure-like pain without any radiation. It is in the sternal area. No alleviating or exacerbating factors. Associated with some sweating. Denies any shortness of breath, headache, vision changes, GI or complaints. Denies any syncopal/presyncopal episodes. He states that he has a history of a blockage in the right side of the heart, he has been told that. In the ER, patient remained hemodynamically stable. Troponins negative x1, labs were unremarkable. EKG was with nonspecific changes. At the time of my exam, he was alert oriented x3, in no acute distress and was complaining of chest pain which had improved. Allergies azithromycin Adverse Reaction (Verified 01/30/19 18:09) Hives Beta-Blockers (Beta-Adrenergic Bloc Adverse Reaction (Verified 10/09/17 11:30) Anaphylaxis metoprolol Adverse Reaction (Verified 10/10/17 06:56) Anaphylaxis Home medications list reviewed: Yes Home Medications: Aspirin [Aspirin EC 81 MG] 81 mg PO DAILY #30 tablet. 02/09/18 Atorvastatin Calcium [Lipitor*] 20 mg PO BEDTIME #30 tab 07/23/18 Nitroglycerin [Nitrostat*] 0.4 mg SL UD PRN #30 tab 07/23/18 Albuterol Sulfate [Proair Respiclick] 2 puff IH Q6H PRN 01/30/19 Isosorbide Dinitrate 30 mg PO DAILY 01/30/19 Lisinopril 20 mg PO DAILY 01/30/19 - Past Medical/Surgical History Diabetic: No -: Angina -: HTN -: Hyperlipidemia -: Tobacco abuse -: CAD -: COPD -: GERD -: Noncompliance with medication and follow up -: CARDIAC CATH 12/2013 NO STENTS 30% BLOCKAGE PER PT -: Cardiac stress tests October 2017 showed no stress-induced ischemia Psychosocial/ Personal History: Patient is single. Patient is homeless. - Family History MOM -: Heart disease, Other (see notes) Notes: MASSIVE DC 61YR and arthritis DAD -: Heart disease, Other (see notes) Notes: POOR CIRCULATION TO LEGS PER PT - Social History Alcohol use: Yes CD- Drugs: No Caffeine use: Yes Review of Systems 10-point ROS is otherwise unremarkable Physical Examination - Physical Exam General: Alert, In no apparent distress, Oriented x3 HEENT: Atraumatic, PERRLA, Mucous membr. moist/pink, EOMI, Sclerae nonicteric Neck: Supple, 2+ carotid pulse no bruit, No LAD, Without JVD or thyroid abnormality Respiratory: Clear to auscultation bilaterally, Normal air movement Cardiovascular: Regular rate/rhythm, Normal S1 S2 Gastrointestinal: Normal bowel sounds, No tenderness Musculoskeletal: No tenderness Integumentary: No rashes Neurological: Normal gait, Normal speech, Normal strength at 5/5 x4 extr, Normal tone, Normal affect Lymphatics: No axilla or inguinal lymphadenopathy - Studies Laboratory Data (last 24 hrs) 01/30/19 15:15: PT 12.2, INR 1.04 01/30/19 15:15: WBC 5.6, Hgb 14.3, Hct 44.1, Plt Count 224 01/30/19 15:15: Sodium 141, Potassium 3.5, BUN 19 H, Creatinine 1.00, Glucose 148 H, Magnesium 2.1, Total Bilirubin 0.1 L, AST 20, ALT 69, Alkaline Phosphatase 45 Assessment and Plan - Problems (Diagnosis) (1) Chest pain Onset Date: 03/03/18 Current Visit: No Status: Acute Plan: Patient's risk factors include prior myocardial infarction, CAD, hypertension, hyperlipidemia, nicotine abuse, obesity. -Cardiology consult, waiting recommendations -morphine for pain, nitro p.r.n. -avoid beta-blockers due to beta-aly allergy, per patient, his heart rate drops too low when he takes anemia metoprolol. Explained to patient that this is in fact the medication as opposed to 2. Patient states that he does not want to take metoprolol at this time. -patient has an echo from October 2017 with 60% ejection fraction, normal and negative stress test at that time. -will start lisinopril, statin -echo ordered, pending Qualifiers: Chest pain type: unspecified Qualified Code(s): R07.9 - Chest pain, unspecified (2) CAD (coronary artery disease) Onset Date: 03/03/18 Current Visit: No Status: Chronic Qualifiers: Coronary Disease-Associated Artery/Lesion type: [place] artery [place] vs. transplanted heart: [place] heart Associated angina: with unstable angina Qualified Code(s): I25.110 - Atherosclerotic heart disease of [place] coronary artery with unstable angina pectoris (3) COPD (chronic obstructive pulmonary disease) Onset Date: 10/11/17 Current Visit: No Status: Chronic Plan: Patient with history of COPD Will continue breathing treatments as needed Qualifiers: COPD type: chronic bronchitis Chronic bronchitis type: simple Qualified Code(s): J41.0 - Simple chronic bronchitis (4) GERD (gastroesophageal reflux disease) Current Visit: No Status: Chronic Qualifiers: Esophagitis presence: esophagitis presence not specified Qualified Code(s) : K21.9 - Gastro-esophageal reflux disease without esophagitis (5) HLD (hyperlipidemia) Onset Date: 10/11/17 Current Visit: No Status: Chronic Qualifiers: Hyperlipidemia type: unspecified Qualified Code(s): E78.5 - Hyperlipidemia , unspecified (6) HTN (hypertension) Onset Date: 03/03/18 Current Visit: No Status: Chronic Plan: Stable Continue blood pressure control with lisinopril -will add p.r.n. medications if needed Qualifiers: Hypertension type: essential hypertension Qualified Code(s): I10 - Essential (primary) hypertension (7) Nicotine dependence Onset Date: 10/11/17 Current Visit: No Status: Chronic Qualifiers: Nicotine product type: cigarettes (8) Non-compliance Onset Date: 03/03/18 Current Visit: No Status: Chronic - Plan DVT prophylaxis: Aspirin/Plavix GI prophylaxis: None Diet: Heart healthy, NPO post midnight Disposition: Admit to floor for observation for chest pain rule out. Pending cardiology evaluation - Advance Directives Does patient have a Living Will: No Does patient have a Durable POA for Healthcare: No
[2019-01-30 18:24] VITALS: BMI 40.1
[2019-01-30] MEDS ORDERED: ALBUTEROL INHALER 60 PUFF/8 GM IH PRN (18:30)
[2019-01-30] MEDS ORDERED: ENOXAPARIN 40 MG/0.4 ML SQ SCH (18:30)
[2019-01-30] MEDS ORDERED: ATORVASTATIN 80 MG TAB PO SCH (21:00)
[2019-01-30 21:21] LABS: Urine Appearance CLEAR; Urine Bilirubin NEGATIVE (NEG); Urine Blood NEGATIVE (NEG); Urine Color YELLOW; Urine Glucose NEGATIVE (NEG); Urine Protein TRACE (NEG); Urine Specific Gravity >=1.030 (1.005-1.030); Urine Urobilinogen 0.2 mg/dL (0.2-1.0)
[2019-01-30 21:23] LABS: Urine Microscopic Reflex NO UMIC
[2019-01-31 00:55] VITALS: O2SAT 96
[2019-01-31 06:39] LABS: Absolute Lymphocytes (CBC) 1.8 K/uL (0.7-4.9); Basophils % 1.3 % (0-1.3); Lymphocytes % 25.7 % (15.3-44.8); MPV 9.7 fL (7.6-11.3); RBC Red Blood Cell Count 4.94 M/uL (4.33-5.43)
[2019-01-31 06:56] LABS: BUN Blood Urea Nitrogen 12 mg/dL (7-18); Bicarbonate 27 mmol/L (21-32); Glucose Level 145 mg/dL (74-106); Potassium 4.7 mmol/L (3.5-5.1); Sodium Level 142 mmol/L (136-145)
[2019-01-31] MEDS: INSULIN -REGULAR HUMAN 50 UNIT/0.5 ML ML SQ SCH ×2 (07:30→11:30)
[2019-01-31] MEDS ORDERED: LISINOPRIL 10 MG TAB PO SCH (09:00)
[2019-01-31] MEDS ORDERED: LISINOPRIL 20 MG TAB PO SCH (09:00)
[2019-01-31] MEDS ORDERED: ASPIRIN EC 81 MG TAB PO SCH (09:00)
[2019-01-31] MEDS ORDERED: ENOXAPARIN 40 MG/0.4 ML SQ SCH (09:00)
[2019-01-31] MEDS ORDERED: CLOPIDOGREL 75 MG TABLET PO SCH (09:00)
[2019-01-31] MEDS ORDERED: ISOSORBIDE MONO SR 30 MG TAB PO SCH (09:00)
--- NOTE | 2019-01-31 10:50 | EKG ---
Test Date: 2019-01-30 Test Time: 15:19:32 Sack Filler: NICKI MEASUREMENT RESULTS: Intervals: Rate: 81 AR: 152 QRSD: 108 QT: 356 QTc: 413 [place]: P: 67 AR: 152 QRS: 84 T: -45 INTERPRETIVE STATEMENTS: Normal sinus rhythm Incomplete left bundle branch block ST & T wave abnormality, consider inferior ischemia Abnormal ECG Compared to ECG 12/28/2018 15:42:00 ST (T wave) deviation now present T-wave abnormality no longer present Possible ischemia still present Electronically Signed On 01-31-19 10:49:43 CDT by Eduardo Hernandes
--- NOTE | 2019-01-31 11:26 | ECHO ---
HEIGHT: 5 ft 6 in WEIGHT: 248 lb 12.8 oz DATE OF STUDY: 01/31/[address]: Frantz David MD 2-DIMENSIONAL: YES M.MODE: YES DOPPLER: YES COLOR FLOW: YES TDS: NO PORTABLE: NO DEFINITY: NO BUBBLE STUDY: NO DIAGNOSIS: CHEST PAIN CARDIAC HISTORY: CATHERIZATION: YES SURGERY: NO PROSTHETIC VALVE: NO PACEMAKER: NO MEASUREMENTS (cm) DIASTOLIC (NORMALS) SYSTOLIC (NORMALS) IVSd 1.2 (0.6-1.2) LA Diam 3.6 (1.9-4.0) LVEF 56% LVIDd 4.1 (3.5-5.7) LVIDs 2.9 (2.0-3.5) %FS 29% LVPWd 1.0 (0.6-1.2) Ao Diam 3.0 (2.0-3.7) 2 DIMENSIONAL ASSESSMENT: RIGHT ATRIUM: NORMAL LEFT ATRIUM: NORMAL RIGHT VENTRICLE: NORMAL LEFT VENTRICLE: NORMAL TRICUSPID VALVE: NORMAL MITRAL VALVE: NORMAL PULMONIC VALVE: NORMAL AORTIC VALVE: NORMAL PERICARDIAL EFFUSION: NONE AORTIC ROOT: NORMAL LEFT VENTRICULAR WALL MOTION: NORMAL. DOPPLER/COLOR FLOW: NORMAL. COMMENTS: NORMAL 2D ECHOCARDIOGRAM WITH DOPPLER. TECHNOLOGIST: ERNST BAILON [facility]
[2019-01-31 12:40] VITALS: TEMP 97.6
--- NOTE | 2019-01-31 14:38 | CON ---
History Of Present Illness: Mr. Langston is a 53. He came to the hospital because he felt woozy and he noticed his blood pressure was abnormal. He has had several heart catheterizations, the last one was more than 2 years ago. Both times, he was told that he had minor plaquing in his right coronary artery. He has never needed a stent or bypass surgery. He has had a stress test. The most recent 1 was in October 2017 that showed no ischemia. He comes in today without chest pain or anything that s ounds like angina, just feeling woozy and noticing his blood pressure was different. He said it was low in the morning, then said it was high in the afternoon. The highest blood pressure he told me ab out systolic was 157. His first blood pressure when he arrived in the hospital was 155/82, later 132 /74. The patient is under the care of the oil seal assembler at [facility]. He has been a patient of Dr. Nicole peña in the past. Allergies: HE IS ALLERGIC TO AZITHROMYCIN, BETA-BLOCKERS. Medications: Outpatient medications have been aspirin, atorvastatin, nitroglycerin, lisinopril, isos orbide dinitrate, and albuterol. Social History: He is a continuing cigarette smoker. Physical Examination: Vital Signs: 5 feet 6 inches, 248 pounds. General: Obese, very unkempt, and looks like the patient does not take care of himself very well. Lungs: Clear. Heart: Normal. Extremities: Trace edema, distal pulses palpable. Laboratory Data: His troponins are all normal. His electrocardiogram does not show anything disturb ing. Impression: So, I think he could be discharged home and have followup with his usual oil seal assembler. ЕКАТЕРИНА Voice ID: [id number] Report ID: [id number]
--- NOTE | 2019-01-31 14:56 | P.SSS ---
Patient History Date of Service: 01/31/19 Reason for admission: Chest pain History of Present Illness: This is a 53-year-old male with history of CAD, hypertension, hyperlipidemia, current cigarette smoker, COPD admitted for chest pain. Patient has been having progressively worsening, more frequent chest pain since July of this year. He describes it as sharp/sometimes pressure-like pain without any radiation. It is in the sternal area. No alleviating or exacerbating factors. Associated with some sweating. Denies any shortness of breath, headache, vision changes, GI or complaints. Denies any syncopal/presyncopal episodes. He states that he has a history of a blockage in the right side of the heart, he has been told that. In the ER, patient remained hemodynamically stable. Troponins negative x1, labs were unremarkable. EKG was with nonspecific changes. At the time of my exam, he was alert oriented x3, in no acute distress and was complaining of chest pain which had improved. Allergies azithromycin Adverse Reaction (Verified 01/30/19 18:09) Hives Beta-Blockers (Beta-Adrenergic Bloc Adverse Reaction (Verified 10/09/17 11:30) Anaphylaxis metoprolol Adverse Reaction (Verified 10/10/17 06:56) Anaphylaxis Home medications list reviewed: Yes Home Medications: Aspirin [Aspirin EC 81 MG] 81 mg PO DAILY #30 tablet. 02/09/18 Atorvastatin Calcium [Lipitor*] 20 mg PO BEDTIME #30 tab 07/23/18 Nitroglycerin [Nitrostat*] 0.4 mg SL UD PRN #30 tab 07/23/18 Albuterol Sulfate [Proair Respiclick] 2 puff IH Q6H PRN 01/30/19 Isosorbide Dinitrate 30 mg PO DAILY 01/30/19 Lisinopril 20 mg PO DAILY 01/30/19 - Past Medical/Surgical History Has patient received pneumonia vaccine in the past: No Diabetic: No -: Angina -: HTN -: Hyperlipidemia -: Tobacco abuse -: CAD -: COPD -: GERD -: Noncompliance with medication and follow up -: CARDIAC CATH 12/2013 NO STENTS 30% BLOCKAGE PER PT -: Cardiac stress tests October 2017 showed no stress-induced ischemia Psychosocial/ Personal History: Patient is single. Patient is homeless. - Family History MOM -: Heart disease, Other (see notes) Notes: MASSIVE CT 61YR and arthritis DAD -: Heart disease, Other (see notes) Notes: POOR CIRCULATION TO LEGS PER PT - Social History Smoking Status: Current every day smoker Alcohol use: Yes CD- Drugs: No Caffeine use: Yes Review of Systems 10-point ROS is otherwise unremarkable Physical Examination - Vital Signs Temperature: 97.6 F Blood Pressure: 127/59 Pulse: 78 Respirations: 19 Pulse Ox (%): 97 - Physical Exam General: Alert, In no apparent distress, Oriented x3 HEENT: Atraumatic, PERRLA, Mucous membr. moist/pink, EOMI, Sclerae nonicteric Neck: Supple, 2+ carotid pulse no bruit, No LAD, Without JVD or thyroid abnormality Respiratory: Clear to auscultation bilaterally, Normal air movement Cardiovascular: Regular rate/rhythm, Normal S1 S2 Gastrointestinal: Normal bowel sounds, No tenderness Musculoskeletal: No tenderness Integumentary: No rashes Neurological: Normal gait, Normal speech, Normal strength at 5/5 x4 extr, Normal tone, Normal affect Lymphatics: No axilla or inguinal lymphadenopathy - Studies Laboratory Data (last 24 hrs) 01/30/19 15:15: PT 12.2, INR 1.04 01/30/19 15:15: WBC 5.6, Hgb 14.3, Hct 44.1, Plt Count 224 01/30/19 15:15: Sodium 141, Potassium 3.5, BUN 19 H, Creatinine 1.00, Glucose 148 H, Magnesium 2.1, Total Bilirubin 0.1 L, AST 20, ALT 69, Alkaline Phosphatase 45 - Diagnosis (Problem(s)) (1) Chest pain Onset Date: 03/03/18 Current Visit: No Status: Acute Plan: Patient's risk factors included prior myocardial infarction, CAD, hypertension, hyperlipidemia, nicotine abuse, obesity. -Cardiology consulted, cleared for discharge with outpatient follow up with patient's primary manager contract in [facility]. -morphine for pain, nitro p.r.n. -avoid beta-blockers due to beta-aly allergy, per patient, his heart rate drops too low when he takes metoprolol. Explained to patient that this is in fact the medication as its supposed to work. Patient states that he did not want to take metoprolol at this time. -patient has an echo from October 2017 with 60% ejection fraction, normal and negative stress test at that time. ECHO done during this visit also normal with EF of 56%. Remained otherwise stable throughout the stay. Discharged home in a safe and stable manner. He will follow up with his primary manager contract in 1-2 weeks. Qualifiers: Chest pain type: unspecified Qualified Code(s): R07.9 - Chest pain, unspecified (2) CAD (coronary artery disease) Onset Date: 03/03/18 Current Visit: No Status: Chronic Qualifiers: Coronary Disease-Associated Artery/Lesion type: [place] artery [place] vs. transplanted heart: [place] heart Associated angina: with unstable angina Qualified Code(s): I25.110 - Atherosclerotic heart disease of [place] coronary artery with unstable angina pectoris (3) COPD (chronic obstructive pulmonary disease) Onset Date: 10/11/17 Current Visit: No Status: Chronic Qualifiers: COPD type: chronic bronchitis Chronic bronchitis type: simple Qualified Code(s): J41.0 - Simple chronic bronchitis (4) GERD (gastroesophageal reflux disease) Current Visit: No Status: Chronic Qualifiers: Esophagitis presence: esophagitis presence not specified Qualified Code(s) : K21.9 - Gastro-esophageal reflux disease without esophagitis (5) HLD (hyperlipidemia) Onset Date: 10/11/17 Current Visit: No Status: Chronic Qualifiers: Hyperlipidemia type: unspecified Qualified Code(s): E78.5 - Hyperlipidemia , unspecified (6) HTN (hypertension) Onset Date: 03/03/18 Current Visit: No Status: Chronic Qualifiers: Hypertension type: essential hypertension Qualified Code(s): I10 - Essential (primary) hypertension (7) Nicotine dependence Onset Date: 10/11/17 Current Visit: No Status: Chronic Plan: Counseled for smoking cessation, more than 10 min Qualifiers: Nicotine product type: cigarettes (8) Non-compliance Onset Date: 03/03/18 Current Visit: No Status: Chronic - Disposition Discharge Date: 01/31/19 Disposition: ROUTINE DISCHARGE Condition: GOOD Consultations: Cardiology Patient Discharge Instructions: Please follow up with your manager contract in 1-2 weeks. Please return to the Emergency room for worsening symptoms. Diet: AHA Activity: Ad yasmine Time Spent Managing Pts Care (In Minutes): 55
[2019-01-31 15:00] VITALS: BP 140/69
--- NOTE | 2019-01-31 15:28 | EKG ---
Test Date: 2019-01-31 Test Time: 14:34:42 Hospitality Recruiter: SITA MEASUREMENT RESULTS: Intervals: Rate: 72 [place]: 148 QRSD: 112 QT: 372 QTc: 407 [place]: P: 55 [place]: 148 QRS: 66 T: 14 INTERPRETIVE STATEMENTS: Normal sinus rhythm T wave abnormality, consider inferior ischemia Abnormal ECG Compared to ECG 01/30/2019 15:19:32 T-wave abnormality now present Left bundle-branch block no longer present ST (T wave) deviation no longer present Possible ischemia still present Electronically Signed On 01-31-19 15:27:23 CDT by Eduardo Hernandes
== END 2019-01-31 17:01 | disposition home or self-care (01) ==
LOC: ER 14:45 → ERHOLD 16:35 → 2ND 17:48
PROVIDERS: ADMIT Family Medicine; ATTEND Family Medicine
DX: R07.9 Chest pain, unspecified (principal); I25.10 Atherosclerotic heart disease of native coronary artery without angina pectoris; J44.9 Chronic obstructive pulmonary disease, unspecified; I10 Essential (primary) hypertension; E78.5 Hyperlipidemia, unspecified; K21.9 Gastro-esophageal reflux disease without esophagitis; I25.2 Old myocardial infarction; R94.31 Abnormal electrocardiogram [ECG] [EKG]; F17.210 Nicotine dependence, cigarettes, uncomplicated; E66.9 Obesity, unspecified; Z68.39 Body mass index [BMI] 39.0-39.9, adult; G47.30 Sleep apnea, unspecified; Z79.82 Long term (current) use of aspirin; Z79.899 Other long term (current) drug therapy; Z91.19 Patient's noncompliance with other medical treatment and regimen
CPT/HCPCS: 36415; 71045; 80048; 80061; 80076; 81003; 82962; 83735; 83880; 84484; 85025; 85610; 93005; 93306; 94760; 99285; G0378

== ENCOUNTER 2019-02-02 08:09 | Emergency (ER) | payer SELFPAY ==
--- OUTSIDE RECORDS SUMMARY | 2019-02-02 08:16 | XMS REPORT ---
:1965 [facility] Address [address] [place] [address] Dr. Fierro [address] [place] [id number] Care Team Providers Name Role Phone Unavailable Unavailable Unavailable Problems This patient has no known problems. Allergies, Adverse Reactions, Alerts This patient has no known allergies or adverse reactions. Medications This patient has no known medications.
[2019-02-02] MEDS ORDERED: ASPIRIN 81 MG CHEWABLE TABLET ONE (09:28)
[2019-02-02] MEDS ORDERED: MORPHINE 4 MG/ML SYR ONE (09:28)
[2019-02-02 09:44] LABS: Absolute Lymphocytes (CBC) 1.7 K/uL (0.7-4.9); Basophils % 0.5 % (0-1.3); Hematocrit 44.8 % (39.6-49.0); Lymphocytes % 22.6 % (15.3-44.8); MPV 9.6 fL (7.6-11.3); RBC Red Blood Cell Count 4.88 M/uL (4.33-5.43)
[2019-02-02 09:56] LABS: ALT/SGPT 70 U/L (12-78); AST/SGOT 18 U/L (15-37); Albumin 3.6 g/dL (3.4-5.0); Alkaline Phosphatase 52 U/L (45-117); BUN Blood Urea Nitrogen 18 mg/dL (7-18); Bicarbonate 26 mmol/L (21-32); Bilirubin Direct < 0.1 mg/dL (0-0.2); Bilirubin Total 0.1 mg/dL (0.2-1.0); Glucose Level 115 mg/dL (74-106); Magnesium 1.8 mg/dL (1.8-2.4); NT PRO-BNP 45 pg/mL (<125); Potassium 3.8 mmol/L (3.5-5.1); Sodium Level 141 mmol/L (136-145); Troponin (Emerg Dept Use Only) < 0.02 ng/mL (0.0-0.045)
[2019-02-02 10:00] LABS: Protime INR 1.04
--- NOTE | 2019-02-02 10:09 | RAD REPORT ---
EXAM DESCRIPTION: Jayda Single View02/02/2019 9:18 am CLINICAL HISTORY: Chest pain COMPARISON: January 30, 2019 FINDINGS: The lungs appear clear of acute infiltrate. The heart is normal size IMPRESSION: No acute abnormalities displayed
--- NOTE | 2019-02-02 12:23 | EDPHYS ---
Physician Documentation [facility] Name: Juan Miguel Langston Age: 53 yrs Sex: Male : 1965 Arrival Date: 02/02/2019 Time: 08:14 Bed 14 Private MD: ED Physician Rashard Bardales HPI: 02/02 15:05 This 53 yrs old Male presents to ER via EMS with complaints of High Blood snw Pressure. 15:05 The patient has elevated blood pressure and discovered this unknown. Onset: The snw symptoms/episode began/occurred "lately". Associated signs and symptoms: Pertinent positives: tightness to anterior neck. Severity of symptoms: At its worst the blood pressure was 200 mm Hg. The patient has experienced similar episodes in the past, chronically. It is unknown whether or not the patient has recently seen a physician. Historical: - Allergies: 08:25 Azithromycin; jl7 08:25 Metoprolol Tartrate; jl7 - Home Meds: 08:25 aspirin 81 mg Oral chew 1 tab once daily [Active]; isosorbide mononitrate 30 mg Oral jl7 Tb24 1 tab once daily [Active]; 08:31 lisinopril 20 mg Oral tab once daily [Active]; jl7 - PMHx: 08:31 Angina; COPD; Diabetes - NIDDM; High Cholesterol; Hypertension; Sleep Apnea; Myocardial jl7 infarction; - Immunization history:: Adult Immunizations unknown. - Social history:: Smoking status: Patient uses tobacco products, smokes one-half pack cigarettes per day. - Ebola Screening: : No symptoms or risks identified at this time. ROS: 14:52 Constitutional: Negative for fever, chills, and weight loss, Eyes: Negative for injury, snw pain, redness, and discharge, ENT: Negative for injury, pain, and discharge, Neck: Negative for injury, pain, and swelling, Respiratory: Negative for shortness of breath, cough, wheezing, and pleuritic chest pain, Abdomen/GI: Negative for abdominal pain, nausea, vomiting, diarrhea, and constipation, Back: Negative for injury and pain, : Negative for injury, bleeding, discharge, and swelling, MS/Extremity: Negative for injury and deformity, Skin: Negative for injury, rash, and discoloration, Neuro: Negative for headache, weakness, numbness, tingling, and seizure, Psych: Negative for depression, anxiety, suicide ideation, homicidal ideation, and hallucinations. 14:52 Cardiovascular: Positive for "I'm tired of fighting my blood pressure". Exam: 14:52 Head/Face: Normocephalic, atraumatic. Eyes: Pupils equal round and reactive to light, snw extra-ocular motions intact. Lids and lashes normal. Conjunctiva and sclera are non-icteric and not injected. Cornea within normal limits. Periorbital areas with no swelling, redness, or edema. ENT: Nares patent. No nasal discharge, no septal abnormalities noted. Tympanic membranes are normal and external auditory canals are clear. Oropharynx with no redness, swelling, or masses, exudates, or evidence of obstruction, uvula midline. Mucous membranes moist. Neck: Trachea midline, no thyromegaly or masses palpated, and no cervical lymphadenopathy. Supple, full range of motion without nuchal rigidity, or vertebral point tenderness. No Meningismus. Chest/axilla: Normal chest wall appearance and motion. Nontender with no deformity. No lesions are appreciated. Cardiovascular: Regular rate and rhythm with a normal S1 and S2. No gallops, murmurs, or rubs. Normal PMI, no JVD. No pulse deficits. Respiratory: Lungs have equal breath sounds bilaterally, clear to auscultation and percussion. No rales, rhonchi or wheezes noted. No increased work of breathing, no retractions or nasal flaring. Abdomen/GI: Soft, non-tender, with normal bowel sounds. No distension or tympany. No guarding or rebound. No evidence of tenderness throughout. Back: No spinal tenderness. No costovertebral tenderness. Full range of motion. Skin: Warm, dry with normal turgor. Normal color with no rashes, no lesions, and no evidence of cellulitis. MS/ Extremity: Pulses equal, no cyanosis. Neurovascular intact. Full, normal range of motion. Neuro: Awake and alert, GCS 15, oriented to person, place, time, and situation. Cranial nerves II-XII grossly intact. Motor strength 5/5 in all extremities. Sensory grossly intact. Cerebellar exam normal. Normal gait. Psych: Awake, alert, with orientation to person, place and time. Behavior, mood, and affect are within normal limits. 14:52 Constitutional: The patient appears alert, awake, unkempt. Vital Signs: 08:10 BP 167 / 90; Pulse 97; Resp 18 S; Temp 98.5(O); Pulse Ox 96% on R/A; Pain 10/10; jl7 08:45 BP 141 / 94; Pulse 100; Resp 16; Pulse Ox 98% ; Pain 10/10; jl7 09:30 BP 154 / 78; Pulse 69; Resp 19 S; Pulse Ox 98% on R/A; jl7 10:53 BP 144 / 97; Pulse 75; Resp 19 S; Pulse Ox 95% on R/A; jl7 11:58 BP 138 / 58; Pulse 88; Resp 16 S; Pulse Ox 96% on R/A; Pain 10/10; jl7 12:12 BP 124 / 80; Pulse 85; Resp 16; Pulse Ox 96% on R/A; jl7 MDM: 08:15 Patient medically screened. snw 14:56 Data reviewed: vital signs, nurses notes. Data interpreted: Pulse oximetry: on room air snw is 96 %. Interpretation: normal. Counseling: I had a detailed discussion with the patient and/or guardian regarding: the historical points, exam findings, and any diagnostic results supporting the discharge/admit diagnosis, the presence of at least one elevated blood pressure reading (>120/80) during this emergency department visit, lab results, radiology results, the need for outpatient follow up, for definitive care, to return to the emergency department if symptoms worsen or persist or if there are any questions or concerns that arise at home. Response to treatment: There is no appreciated change of the patient's symptoms at this time. Special discussion: Based on the patient's history, exam, and Dx evaluation, there is no indication for emergent intervention or inpatient Tx. It is understood by the patient/guardian that if the Sx's persist or worsen they need to return immediately for re-evaluation. Based on the history and exam findings, there is no indication for further emergent testing or inpatient evaluation. I discussed with the patient/guardian the need to see the design sales consultant for further evaluation of the symptoms. I discussed with the patient/guardian the need to see the primary care provider for further evaluation of the symptoms. ED course: pt states he would like to be transferred to [place] on my initial assessment. Discussed need for workup and [place] is a lateral transfer. Pt states we never find anything here and he will marj me if I don't find anything and Francine does at a later time. 02/02 08:53 Order name: Basic Metabolic Panel; Complete Time: 10:09 snw 02/02 08:53 Order name: CBC with Diff; Complete Time: 10:09 snw 02/02 08:53 Order name: LFT's; Complete Time: 10:09 snw 02/02 08:53 Order name: Magnesium; Complete Time: 10:09 snw 02/02 08:53 Order name: NT PRO-BNP; Complete Time: 10:09 snw 02/02 08:53 Order name: PT-INR; Complete Time: 10:09 snw 02/02 08:53 Order name: Troponin (emerg Dept Use Only); Complete Time: 10:09 snw 02/02 08:53 Order name: XRAY Chest (1 view); Complete Time: 10:09 snw 02/02 08:53 Order name: EKG; Complete Time: 08:55 snw 02/02 08:53 Order name: Cardiac monitoring; Complete Time: 09:18 snw 02/02 11:35 Order name: Troponin (emerg Dept Use Only); Complete Time: 12:22 snw 02/02 11:35 Order name: EKG; Complete Time: 11:36 snw 02/02 08:53 Order name: EKG - Nurse/Tech; Complete Time: 09:36 snw 02/02 08:53 Order name: IV Saline Lock; Complete Time: 09:36 snw 02/02 08:53 Order name: Labs collected and sent; Complete Time: 09:36 snw 02/02 08:53 Order name: O2 Per Protocol; Complete Time: 09:18 snw 02/02 08:53 Order name: O2 Sat Monitoring; Complete Time: 09:18 snw Administered Medications: 09:33 Drug: morphine 4 mg Route: IM; Site: right deltoid; jl7 09:36 Drug: Aspirin Chewable Tablet 324 mg Route: PO; jl7 Disposition: 02/02/19 12:23 Discharged to Home. Impression: Angina pectoris. - Condition is Stable. - Discharge Instructions: Angina Pectoris, Steps to Quit Smoking, Smoking Hazards. - Medication Reconciliation Form, Thank You Letter, Antibiotic Education, Prescription Opioid Use form. - Follow up: Private Physician; When: 1 - 2 days; Reason: Recheck today's complaints, Continuance of care, Re-evaluation by your physician. Follow up: Emergency Department; When: As needed; Reason: Worsening of condition. Addendum: 02/05/2019 09:12 Co-signature as Attending Physician, Rashard Bardales MD I agree with the assessment and k dr plan of care. Signatures: Dispatcher [employer] EDCT Rashard Bardales MD MD [facility] Ayleen Galan, DIESEL TRUCK MECHANIC-C DIESEL TRUCK MECHANIC-Csnw Redd Hunt RN RN jl7 Corrections: (The following items were deleted from the chart) 02/02 12:34 12:23 02/02/2019 12:23 Discharged to Home. Impression: Angina pectoris. Condition is jl7 Stable. Forms are Medication Reconciliation Form, Thank You Letter, Antibiotic Education, Prescription Opioid Use. Follow up: Private Physician; When: 1 - 2 days; Reason: Recheck today's complaints, Continuance of care, Re-evaluation by your physician. Follow up: Emergency Department; When: As needed; Reason: Worsening of condition. snw
--- NOTE | 2019-02-02 12:23 | ER ---
Nurse's Notes [facility] Name: Juan Miguel Langston Age: 53 yrs Sex: Male : 1965 Arrival Date: 02/02/2019 Time: 08:14 Bed 14 Private MD: Diagnosis: Angina pectoris Presentation: 02/02 08:10 Presenting complaint: EMS states: Pt c/o high blood pressure. Pt reporting chest pain, jl7 radiate to left shoulder, rated 10/10. Transition of care: patient was not received from another setting of care. Onset of symptoms was February 02, 2019. Risk Assessment: Do you want to hurt yourself or someone else? Patient reports no desire to harm self or others. Initial Sepsis Screen: Does the patient meet any 2 criteria? No. Patient's initial sepsis screen is negative. Does the patient have a suspected source of infection? No. Patient's initial sepsis screen is negative. Care prior to arrival: None. 08:10 Method Of Arrival: EMS: [facility] 7 08:10 Acuity: DESTINY 2 jl7 Triage Assessment: 08:10 General: Appears in no apparent distress. uncomfortable, Behavior is calm, cooperative, jl7 appropriate for age. Pain: Complains of pain in mid-sternal area Pain radiates to left supraclavicular area Pain currently is 10 out of 10 on a pain scale. Quality of pain is described as radiating, sharp, Pain began 1 hour ago. Is continuous. EENT: No signs and/or symptoms were reported regarding the EENT system. Neuro: Level of Consciousness is awake, alert, obeys commands, Oriented to person, place, time, situation. Cardiovascular: Reports chest pain, Heart tones present Patient's skin is warm and dry. Respiratory: Airway is patent Respiratory effort is even, unlabored, Respiratory pattern is regular, symmetrical, Breath sounds are clear bilaterally. GI: No signs and/or symptoms were reported involving the gastrointestinal system. : No signs and/or symptoms were reported regarding the genitourinary system. Derm: Skin is pink, warm \T\ dry. Musculoskeletal: No signs and/or symptoms reported regarding the musculoskeletal system. Historical: - Allergies: 08:25 Azithromycin; jl7 08:25 Metoprolol Tartrate; jl7 - Home Meds: 08:25 aspirin 81 mg Oral chew 1 tab once daily [Active]; isosorbide mononitrate 30 mg Oral jl7 Tb24 1 tab once daily [Active]; 08:31 lisinopril 20 mg Oral tab once daily [Active]; jl7 - PMHx: 08:31 Angina; COPD; Diabetes - NIDDM; High Cholesterol; Hypertension; Sleep Apnea; Myocardial jl7 infarction; - Immunization history:: Adult Immunizations unknown. - Social history:: Smoking status: Patient uses tobacco products, smokes one-half pack cigarettes per day. - Ebola Screening: : No symptoms or risks identified at this time. Screenin:30 Abuse screen: Denies threats or abuse. Denies injuries from another. Nutritional jl7 screening: No deficits noted. Tuberculosis screening: No symptoms or risk factors identified. Fall Risk IV access (20 points). Total [place] Fall Scale indicates No Risk (0-24 pts). Assessment: 08:10 General: See triage assessment. jl7 09:30 Reassessment: Patient appears in no apparent distress at this time. No changes from jl7 previously documented assessment. Patient and/or family updated on plan of care and expected duration. Pain level reassessed. Patient is alert, oriented x 3, equal unlabored respirations, skin warm/dry/pink. Requesting pain medication, ERP notified, see MAR for orders. 11:58 Reassessment: Pt laying in bed, eyes closed, pt snoring, woke pt to redraw labs and jl7 asked how pt is feeling, pt reports pain is still 10/10, ERP notified, no new orders at this time. Will continue to monitor. Vital Signs: 08:10 BP 167 / 90; Pulse 97; Resp 18 S; Temp 98.5(O); Pulse Ox 96% on R/A; Pain 10/10; jl7 08:45 BP 141 / 94; Pulse 100; Resp 16; Pulse Ox 98% ; Pain 10/10; jl7 09:30 BP 154 / 78; Pulse 69; Resp 19 S; Pulse Ox 98% on R/A; jl7 10:53 BP 144 / 97; Pulse 75; Resp 19 S; Pulse Ox 95% on R/A; jl7 11:58 BP 138 / 58; Pulse 88; Resp 16 S; Pulse Ox 96% on R/A; Pain 10/10; jl7 12:12 BP 124 / 80; Pulse 85; Resp 16; Pulse Ox 96% on R/A; jl7 ED Course: 08:10 Maintain EMS IV. Dressing intact. Good blood return noted. Site clean \T\ dry. Gauge \T\ jl 7 site: 18 right AC. 08:10 Arm band placed on right wrist. jl7 08:10 EKG completed in triage. Results shown to MD. jl7 08:14 Patient arrived in ED. jl7 08:15 Ayleen Galan FNP-C is [facility]. snw 08:15 Rashard Bardales MD is Attending Physician. snw 08:22 Redd Hunt, NICCI is Primary Nurse. jl7 08:23 Triage completed. jl7 09:18 X-ray completed. Portable x-ray completed in exam room. Patient tolerated procedure jb2 well. 09:19 XRAY Chest (1 view) In Process Unspecified. EDMS 09:28 Initial lab(s) drawn, by me, sent to lab. jb1 09:29 EKG done, by orthophotography technician. reviewed by Ayleen FRANKS. jb1 09:30 Patient has correct armband on for positive identification. Placed in gown. Bed in low jl7 position. Call light in reach. Side rails up X 1. court recording monitor on. Pulse ox on. NIBP on. 12:05 EKG done, by orthophotography technician. reviewed by Ayleen FRANKS. at1 12:32 No provider procedures requiring assistance completed. IV discontinued, intact, jl7 bleeding controlled, No redness/swelling at site. Pressure dressing applied. Administered Medications: 09:33 Drug: morphine 4 mg Route: IM; Site: right deltoid; jl7 09:36 Drug: Aspirin Chewable Tablet 324 mg Route: PO; jl7 Outcome: 12:23 Discharge ordered by . snw 12:32 Discharged to home ambulatory. jl7 12:32 Condition: stable 12:32 Discharge instructions given to patient, Instructed on discharge instructions, follow up and referral plans. Demonstrated understanding of instructions, follow-up care. 12:34 Patient left the ED. jl7 Signatures: Dispatcher [employer] EDPA Addison Kim jb1 Ayleen Galan FNP-C SOFTWARE QA SYSTEM SPECIALIST-Csnw Primo Amanda jb2 Thu Pond, amortization schedule clerk EKG Tat1 Redd Hunt, RN RN jl7
--- NOTE | 2019-02-02 12:33 | EKG ---
Test Date: 2019-02-02 Test Time: 11:52:51 Micrographics Services Supervisor: SERG MEASUREMENT RESULTS: Intervals: Rate: 77 [place]: 148 QRSD: 106 QT: 372 QTc: 420 [place]: P: 54 [place]: 148 QRS: 56 T: 21 INTERPRETIVE STATEMENTS: Normal sinus rhythm Incomplete left bundle branch block Nonspecific T wave abnormality Abnormal ECG Compared to ECG 02/02/2019 08:19:06 Left bundle-branch block now present T-wave abnormality now present ST (T wave) deviation no longer present Possible ischemia no longer present Electronically Signed On 02-02-19 12:32:33 CDT by Nazario Anderson
--- NOTE | 2019-02-02 12:34 | EKG ---
Test Date: 2019-02-02 Test Time: 08:19:06 Oval Or Circular Glass Cutter: LAVONNE MEASUREMENT RESULTS: Intervals: Rate: 91 MN: 138 QRSD: 92 QT: 342 QTc: 420 [place]: P: 56 [place]: 138 QRS: 35 T: 267 INTERPRETIVE STATEMENTS: Normal sinus rhythm ST & T wave abnormality, consider inferior ischemia Abnormal ECG Compared to ECG 01/31/2019 14:34:42 ST (T wave) deviation now present T-wave abnormality no longer present Possible ischemia still present Electronically Signed On 02-02-19 12:32:40 CDT by Nazario Anderson
[2019-02-02 12:40] VITALS: TEMP 98.5
[2019-02-02 12:45] VITALS: O2SAT 96
[2019-02-02 12:46] VITALS: BP 124/80
== END 2019-02-02 12:34 | disposition home or self-care (01) ==
LOC: ER 08:09
DX: I20.9 Angina pectoris, unspecified (principal); I10 Essential (primary) hypertension; J44.9 Chronic obstructive pulmonary disease, unspecified; E11.9 Type 2 diabetes mellitus without complications; E78.00 Pure hypercholesterolemia, unspecified; I25.2 Old myocardial infarction; Z88.1 Allergy status to other antibiotic agents; Z88.8 Allergy status to other drugs, medicaments and biological substances; Z79.82 Long term (current) use of aspirin; F17.210 Nicotine dependence, cigarettes, uncomplicated
CPT/HCPCS: 36415; 71045; 80048; 80076; 83735; 83880; 84484; 85025; 85610; 93005; 96372; 99285

== ENCOUNTER 2019-02-07 10:16 | Emergency (ER) | payer SELFPAY ==
--- OUTSIDE RECORDS SUMMARY | 2019-02-07 10:18 | XMS REPORT | Summary of Care ---
:1965 Author Organization [facility] - Health Address [address] [place] [address] Care Team Providers Name Role Phone Ekta Lucero Kb ROCHA Primary Care Provider Encounter Details Date Type Department Care Team Description 02/05/2019 Orders Only [facility] Doctor Unassigned, No 301 [facility] [place] [address] [address] [place] [address] Allergies Active Allergy Reactions Severity Noted Date Comments Azithromycin Swelling High 08/11/2018 Metoprolol Other - See comments 07/11/2018 Lowers heart rate too low documented as of this encounter (statuses as of 02/05/2019) Medications Medication Sig Dispensed Refills Start Date End Date Status nitroglycerin (NITROSTAT) Place 1 Tab 30 Tab 30 09/18/2013 Active 0.4 mg sublingual tablet under the tongue every 5 (five) minutes as needed for Chest pain. aspirin 81 mg chewable Take 1 tablet 30 tablet 11 04/16/2016 Active tablet by mouth daily. lisinopril 20 mg tablet Take 40 mg by 0 Active mouth daily. pantoprazole 40 mg EC Take 40 mg by 0 Active tablet mouth daily. amLODIPine 5 mg tablet Take 5 mg by 0 Active mouth daily. ibuprofen 800 mg tablet Take 1 tablet 30 tablet 0 04/12/2018 Active by mouth every 8 (eight) hours. benzonatate 100 mg Take 1 capsule 14 capsule 0 07/19/2018 Active capsuleIndications: by mouth 3 Cough, Bronchitis (three) times daily as needed for Cough. albuterol 90 Inhale 2 Puffs 8.5 g 0 07/19/2018 Active mcg/actuation every 4 (four) inhalerIndications: hours as needed Cough, Bronchitis for Wheezing or Shortness of Breath. azithromycin 250 mg Take 1 tablet 1 Package 0 08/02/2018 Active tabletIndications: Cough, by mouth Bronchitis SEE-INSTRUCTION S. Take 500 mg day 1, then 250 mg days 2 to 5. isosorbide mononitrate 30 Take 30 mg by 0 Active mg 24 hr tablet mouth every morning. hydroCHLOROthiazide 12.5 Take 12.5 mg by 0 Active mg capsule mouth daily. albuterol 90 Inhale 2 Puffs 8.5 g 3 01/11/2019 Active mcg/actuation every 6 (six) inhalerIndications: SOB hours as needed (shortness of breath) on for Wheezing or exertion Shortness of Breath. isosorbide mononitrate 30 Take 1 tablet 30 tablet 5 01/11/2019 Active mg 24 hr by mouth daily. tabletIndications: Essential hypertension lisinopril 20 mg Take 1 tablet 30 tablet 5 01/11/2019 Active tabletIndications: by mouth daily. Essential hypertension omeprazole 40 mg Take 1 capsule 30 capsule 5 01/11/2019 Active capsuleIndications: Chest by mouth daily. pain, unspecified type metFORMIN 500 mg Take 1 tablet 30 tablet 5 01/17/2019 Active tabletIndications: by mouth daily. Borderline diabetes mellitus atorvastatin (LIPITOR) 20 Take 1 tablet 30 tablet 5 01/17/2019 Active mg tabletIndications: by mouth at Mixed hyperlipidemia bedtime. documented as of this encounter (statuses as of 02/05/2019) Active Problems Problem Noted Date Nonobstructive atherosclerosis of coronary artery 03/11/2018 HTN (hypertension) 12/07/2013 HLD (hyperlipidemia) 12/07/2013 Borderline diabetes mellitus 12/07/2013 Obesity (BMI 30-39.9) 12/07/2013 Tobacco abuse 12/07/2013 Chest pain 11/20/2013 documented as of this encounter (statuses as of 02/05/2019) Immunizations Name Administration Dates Next Due Influenza Virus Vaccine (3+ yrs) 09/19/2013 Pneumococcal Polysaccharide, PPSV23 (PNEUMOVAX) 09/19/2013 documented as of this encounter Social History Tobacco Use Types Packs/Day Years Used Date Current Every Day Smoker 0.5 26 Smokeless Tobacco: Former User Comments: Down to 10 cigs a day Alcohol Use Drinks/Week oz/Week Comments No Stopped in 2012 Sex Assigned at Date Recorded Not on file Job Start Date Occupation Industry Not on file Not on file Not on file Travel History Travel Start Travel End No recent travel history available. documented as of this encounter Last Filed Vital Signs Not on filedocumented in this encounter Plan of Treatment Date Type Specialty Care Team Description 02/13/2019 Office Visit Cardiology Eunice Chang MD [address] [facility] [address] [place] [address] [phone] 03/30/2019 Office Visit Pulmonary Disease Maylea Funes DO [address] [place] [phone] Health Maintenance Due Date Last Done Comments DTaP,Tdap,and Td Vaccines (1 - Tdap) 1984 COLONOSCOPY 09/07/2015 Zoster Recombinant Vaccine (SHINGRIX) (1 of 2) 09/07/2015 INFLUENZA VACCINE 03/04/2019 09/19/2013 PNEUMOCOCCAL 0-64 YEARS COMBINED SERIES Completed 09/19/2013 documented as of this encounter Procedures Procedure Name Priority Date/Time Associated Diagnosis Comments CONSENT/REFUSAL FOR Routine 02/05/2019 8:41 AM CDT DIAGNOSIS AND TREATMENT documented in this encounter Results Not on filedocumented in this encounter Insurance Payer Benefit Plan / Subscriber ID Effective Phone Address Type Group Dates ROSEANNA CONDON [phone] 2018-Shyann [phone] [facility] PRIMARY CARE PRIMARY CARE [address] [place] [address] documented as of this encounter
--- OUTSIDE RECORDS SUMMARY | 2019-02-07 10:18 | XMS REPORT ---
:1965 [facility] Address [address] [place] [address] Dr. Fierro [address] [place] [address] Care Team Providers Name Role Phone Unavailable Unavailable Unavailable Problems This patient has no known problems. Allergies, Adverse Reactions, Alerts This patient has no known allergies or adverse reactions. Medications This patient has no known medications.
--- OUTSIDE RECORDS SUMMARY | 2019-02-07 10:18 | XMS REPORT | Summary of Care ---
:1965 Author Organization [facility] - Health Address [address] [place] [address] Care Team Providers Name Role Phone Ekta Lucero Primary Care Provider Reason for Referral Radiology Services (STAT) Status Reason Specialty Diagnoses / Referred By Referred To Procedures Contact Contact New Request Diagnostic Diagnoses Chest pain, unspecified type [place], [place] Radiology Procedures XR CHEST 1 TREE Vasquez MD [address] [place] [address] Radiology Services (STAT) Status Reason Specialty Diagnoses / Referred By Referred To Procedures Contact Contact New Request Diagnostic Diagnoses Chest pain, unspecified type Yar[place], [place] Radiology Procedures XR CHEST 1 TREE Vasquez MD [address] [address] Reason for Visit Reason Comments Hypertension Nausea Auth/Cert Status Reason Specialty Diagnoses / Referred By Referred To Procedures Contact Contact [facility] [address] [place] [address] [place] [address] Encounter Details Date Type Department Care Team Description 02/05/2019 Emergency [facility] Yar[place], [place] S, Chest pain, unspecified Department MD type (Primary Dx) [address] [place] [address] [place] [address] [id number] [place], [place] [address] Allergies Active Allergy Reactions Severity Noted Date [...] of this encounter Last Filed Vital Signs Vital Sign Reading Time Taken Comments Blood Pressure 124/76 02/05/2019 11:00 AM CDT Pulse 86 02/05/2019 11:41 AM CDT Temperature 37.2 C (99 F) 02/05/2019 8:51 AM CDT Respiratory Rate 16 02/05/2019 11:41 AM CDT Oxygen Saturation 97% 02/05/2019 11:41 AM CDT Inhaled Oxygen Concentration - - Weight 118.8 kg (262 lb) 02/05/2019 8:51 AM CDT Height 167.6 cm (5' 6") 02/05/2019 8:51 AM CDT Body Mass Index 42.29 02/05/2019 8:51 AM CDT documented in this encounter Discharge Instructions Celia Aguiar MD - 02/05/2019 DIAGNOSIS Diagnoses that have been ruled out: None Diagnoses that are still under consideration: None Final diagnoses: Chest pain, unspecified type NO LIFE-THREATENING FINDINGS ON TODAY'S EXAM. PROCEDURES IN THE ER TODAY: Orders Placed This Encounter Procedures XR CHEST 1 VW POCT GLUCOSE (AUTOMATED) CBC WITH DIFF COMP. METABOLIC PANEL (39774) TROPONIN I CBC WITH DIFFERENTIAL MEDICATIONS ADMINISTERED IN THE ER TODAY AND DISCHARGE MEDICATIONS: Orders Placed This Encounter Medications nitroglycerin (NITROSTAT) sublingual tablet 0.4 mg DISCONTD: aspirin chewable tablet 162 mg morpHINE injection 4 mg aspirin chewable tablet 243 mg FOLLOW-UP RECOMMENDATIONS: RECOMMEND FOLLOW-UP WITH DR ENGLE TODAY DISCUSSED. CALL HIS OFFICE TO SCHEDULE FOLLOW-UP documented in this encounter Plan of Treatment Date Type Specialty Care Team Description 02/13/2019 Office Visit Cardiology Eunice Chang MD [address] [place] [address] [address] [place] [address] 03/30/2019 Office Visit Pulmonary Disease Mayela Funes DO [address] [place] [address] Health Maintenance Due Date Last Done Comments DTaP,Tdap,and Td Vaccines (1 - Tdap) 1984 COLONOSCOPY 09/07/2015 Zoster Recombinant Vaccine (SHINGRIX) (1 of 2) 09/07/2015 INFLUENZA VACCINE 03/04/2019 09/19/2013 PNEUMOCOCCAL 0-64 YEARS COMBINED SERIES Completed 09/19/2013 documented as of this encounter Procedures Procedure Name Priority Date/Time Associated Diagnosis Comments COMP. METABOLIC PANEL STAT 02/05/2019 10:10 Chest pain, Results for this (52758) AM CDT unspecified type procedure are in the results section. TROPONIN I STAT 02/05/2019 10:10 Chest pain, Results for this AM CDT unspecified type procedure are in the results section. XR CHEST 1 VW STAT 02/05/2019 9:38 Chest pain, Results for this AM CDT unspecified type procedure are in the results section. CBC WITH DIFFERENTIAL STAT 02/05/2019 9:26 Chest pain, Results for this AM CDT unspecified type procedure are in the results section. CBC WITH DIFF STAT 02/05/2019 9:26 Chest pain, Results for this AM CDT unspecified type procedure are in the results section. EKG-12 LEAD Routine 02/05/2019 9:14 AM CDT POCT GLUCOSE Routine 02/05/2019 9:06 Results for this (AUTOMATED) AM CDT procedure are in the results section. documented in this encounter Results TROPONIN I (02/05/2019 10:10 AM CDT) TROPONIN I 0.006 <=0.034 ng/mL [facility] Specimen Blood - VENOUS Narrative Performed At Equal or Less than 0.034 ng/ml---Normal [facility] Note: Cardiac troponin begins to rise 3-4 hours after the onset of ischemia. Repeat in 4-6 hours if the sample was drawn within 3-4 hours of the onset of the symptom and found normal. Between 0.035 and 0.120 ng/mL--- Borderline. Questionable myocardial injury or necrosis Note: Serial measurement may be necessary to confirm or exclude the diagnosis of myocardial injury or necrosis; Clinical correlation (symptoms, EKGs, imaging studies, and others) required; Repeat in 4-6 hours if clinically indicated. Equal or Higher than 0.121 ng/mL---Abnormal. Myocardial Injury or Necrosis Likely Biotin has been reported to cause a negative bias, interpret results relative to patient's use of biotin. Performing Organization Address City/State/Zipcode Phone Number [facility] CLIA: [id number], [address] COMP. METABOLIC PANEL (41829) (02/05/2019 10:10 AM CDT) NA 142 135 - 145 [facility] mmol/L [facility] K 4.3 3.5 - 5.0 [facility] mmol/L [facility] CL 103 98 - 108 mmol/L [facility] CO2 TOTAL 29 23 - 31 mmol/L [facility] AGAP 10 2 - 16 [facility] BUN 15 7 - 23 mg/dL [facility] GLUCOSE 103 70 - 110 mg/dL [facility] CREATININE 0.78 0.60 - 1.25 [facility] mg/dL [facility] TOTAL BILI 0.2 0.1 - 1.1 mg/dL [facility] CALCIUM 9.1 8.6 - 10.6 [facility] mg/dL [facility] T PROTEIN 7.1 6.3 - 8.2 g/dL [facility] ALBUMIN 4.1 3.5 - 5.0 g/dL [facility] ALK PHOS 53 34 - 122 U/L [facility] ALT(SGPT) 71 (H) 9 - 51 U/L [facility] AST(SGOT) 34 13 - 40 U/L [facility] eGFR Calculation 104.1 mL/min/1.73m2 [facility] (Non-[facility] eGFR Calculation 126.2 mL/min/1.73m2 [facility] () [facility] Specimen Blood - VENOUS Narrative Performed At Association of Glomerular Filtration Rate (GFR) [facility] and Staging of Kidney Disease* + + +- + | GFR (mL/min/1.73 m2)| With Kidney Damage|Without Kidney Damage + + +- + |>90| Stage one| Normal + + +- + |60-89|S tage two| Decreased GFR + + +- + |30-59|S tage three| Stage three + + +- + |15-29|S tage four | Stage four + + +- + |<15 (or dialysis)|Stage five | Stage five + + +- + *Each stage assumes the associated GFR level has been in effect for at least three months.Stages 1 to 5, with or without kidney disease, indicate chronic kidney disease. Notes: Determination of stages one and two (with eGFR >59mL/min/1.73 m2) requires estimation of kidney damage for at least three months as defined by structural or functional abnormalities of the kidney, manifested by either: Pathological abnormalities or Markers of kidney damage (including abnormalities in the composition of the blood or urine or abnormalities in imaging tests). Performing Organization Address City/State/Zipcode Phone Number [facility] CLIA: [id number], [address] [place] [address] XR CHEST 1 VW (02/05/2019 9:38 AM CDT) Specimen Narrative Performed At [facility] PORTABLE ONE VIEW PACS/VR/DOSE HISTORY:Chest pain TECHNIQUE: Frontal, portable projection of the chest is obtained. COMPARISON: 11/15/2018 FINDINGS: The lungs are clear. The heart size and mediastinal silhouette are normal. No pleural effusion or pneumothorax is seen. CONCLUSIONS: No acute cardiopulmonary disease. Deanna Beyer MD., have reviewed this study and agree with the above report. Procedure Note [facility], Radiant Results Inft User - 02/05/2019 10:32 AM CDT CHEST PORTABLE ONE VIEW HISTORY:Chest pain TECHNIQUE: Frontal, portable projection of the chest is obtained. COMPARISON: 11/15/2018 FINDINGS: The lungs are clear. The heart size and mediastinal silhouette are normal. No pleural effusion or pneumothorax is seen. CONCLUSIONS: No acute cardiopulmonary disease. INarinder MD., have reviewed this study and agree with the above report. Performing Organization Address City/State/Zipcode Phone Number PACS/VR/DOSE CBC WITH DIFFERENTIAL (02/05/2019 9:26 AM CDT) WBC 7.87 4.20 - 10.70 [facility] 10*3/L [facility] RBC 4.92 4.26 - 5.52 [facility] 10*6/L [facility] HGB 14.7 12.2 - 16.4 g/dL [facility] HCT 45.3 38.4 - 49.3 % [facility] MCV 92.1 81.7 - 95.6 fL [facility] MCH 29.9 26.1 - 32.7 pg [facility] MCHC 32.5 31.2 - 35.0 g/dL [facility] RDW-SD 47.5 38.5 - 51.6 fL [facility] RDW-CV 14.1 12.1 - 15.4 % [facility] PLT 255 150 - 328 [facility] 10*3/L HOSPITAL LABORATORY MPV 11.4 9.8 - 13.0 fL [facility] NRBC/100 WBC 0.0 0.0 - 10.0 /100 [facility] WBCs [facility] NRBC x10^3 <0.01 10*3/L [facility] GRAN MAT (NEUT) % 62.7 % [facility] IMM GRAN % 0.30 % [facility] LYMPH % 24.1 % [facility] MONO % 10.0 % [facility] EOS % 2.5 % [facility] BASO % 0.4 % [facility] GRAN MAT x10^3(ANC) 4.93 1.99 - 6.95 [facility] 10*3/uL [facility] IMM GRAN x10^3 <0.03 0.00 - 0.06 [facility] 10*3/uL [facility] LYMPH x10^3 1.90 1.09 - 3.23 [facility] 10*3/uL [facility] MONO x10^3 0.79 0.36 - 1.02 [facility] 10*3/uL [facility] EOS x10^3 0.20 0.06 - 0.53 [facility] 10*3/uL [facility] BASO x10^3 0.03 0.01 - 0.[address] LABORATORY Specimen Blood - VENOUS Performing Organization Address City/[facility]/Zipcode Phone Number [facility] CLIA: [id number], [address] [place] [address] POCT GLUCOSE (AUTOMATED) (02/05/2019 9:06 AM CDT) [facility] Signature POCT GLU 119 (H) 70 - 110 mg/dL [facility] Specimen Blood Performing Organization Address City/State/Zipcode Phone Number [facility] CLIA: [id number], [address] [place] [address] documented in this encounter Visit Diagnoses Diagnosis Chest pain, unspecified type - Primary documented in this encounter Administered Medications Medication Order MAR Action Action Date Dose Rate Site aspirin chewable tablet 243 mg Given 02/05/2019 9:23 AM CDT 243 mg 243 mg, Oral, DAILY, First dose on Tue02/06/19 at 0900, Until Discontinued, Routine Medication Order MAR Action Action Date Dose Rate Site morpHINE injection 4 mg Given 02/05/2019 9:25 AM CDT 4 mg 4 mg, Slow IV Push, ONCE, 1 dose, Tue02/05/19 at 1015, STAT nitroglycerin (NITROSTAT) sublingual tablet Given 02/05/2019 9:25 AM CDT 0.4 mg 0.4 mg 0.4 mg, Sublingual, ONCE, 1 dose, Tue02/05/19 at 1015, KERLINE documented in this encounter Insurance Payer Benefit Plan / Subscriber ID Effective Phone Address Type Group Dates ROSEANNA CONDON [id number] 2018-Shyann [phone] [facility] [address] [place] [address] documented as of this encounter
--- OUTSIDE RECORDS SUMMARY | 2019-02-07 10:19 | XMS REPORT | Summary of Care ---
:1965 Author Organization [facility] - Health Address [address] [place] [address] Care Team Providers Name Role Phone Ekta Lucero Kb ROCHA Primary Care Provider Encounter Details Date Type Department Care Team Description 02/07/2019 Orders Only [facility] Doctor Unassigned, No 301 [facility] [place] [address] [address] [place] [address] Allergies Active Allergy Reactions Severity Noted Date Comments Azithromycin Swelling High 08/11/2018 Metoprolol Other - See comments 07/11/2018 Lowers heart rate too low documented as of this encounter (statuses as of 02/07/2019) Medications Medication Sig Dispensed Refills Start Date [...] as of this encounter (statuses as of 02/07/2019) Active Problems Problem Noted Date Nonobstructive atherosclerosis of coronary artery 03/11/2018 HTN (hypertension) 12/07/2013 HLD (hyperlipidemia) 12/07/2013 Borderline diabetes mellitus 12/07/2013 Obesity (BMI 30-39.9) 12/07/2013 Tobacco abuse 12/07/2013 Chest pain 11/20/2013 documented as of this encounter (statuses as of 02/07/2019) Immunizations Name Administration Dates Next Due Influenza [...] Office Visit Cardiology Eunice Chang MD [address] [facility] [address] [place] [address] [phone] 03/30/2019 Office Visit Pulmonary Disease Mayela Funes DO [address] [place] [phone] Health Maintenance Due Date Last Done Comments DTaP,Tdap,and Td Vaccines (1 - Tdap) 1984 COLONOSCOPY 09/07/2015 Zoster Recombinant Vaccine (SHINGRIX) (1 of 2) 09/07/2015 INFLUENZA VACCINE 03/04/2019 09/19/2013 PNEUMOCOCCAL 0-64 YEARS COMBINED SERIES Completed 09/19/2013 documented as of this encounter Procedures Procedure Name Priority Date/Time Associated Diagnosis Comments EXTERNAL PROVIDER Routine 02/07/2019 12:01 AM CDT RECORDS documented in this encounter Results Not on filedocumented in this encounter Insurance Payer Benefit Plan / Subscriber ID Effective Phone Address Type Group Dates ROSEANNA CONDON [id number] 2018-Shyann [phone] [facility] PRIMARY CARE PRIMARY CARE [address] [place] [address] documented as of this encounter
[2019-02-07 10:47] LABS: Absolute Lymphocytes (CBC) 1.8 K/uL (0.7-4.9); Hematocrit 42.5 % (39.6-49.0); Lymphocytes % 26.6 % (15.3-44.8); MPV 9.7 fL (7.6-11.3); RBC Red Blood Cell Count 4.62 M/uL (4.33-5.43)
[2019-02-07 11:05] LABS: Protime INR 0.96
--- NOTE | 2019-02-07 11:14 | RAD REPORT ---
EXAM DESCRIPTION: Jayda Single View02/07/2019 10:44 am CLINICAL HISTORY: Chest pain COMPARISON: February 02, 2019 FINDINGS: The lungs appear clear of acute infiltrate. The heart is normal size IMPRESSION: No acute abnormalities displayed
[2019-02-07 11:21] LABS: ALT/SGPT 77 U/L (12-78); AST/SGOT 33 U/L (15-37); Albumin 3.3 g/dL (3.4-5.0); Alkaline Phosphatase 53 U/L (45-117); BUN Blood Urea Nitrogen 11 mg/dL (7-18); Bicarbonate 24 mmol/L (21-32); Bilirubin Direct < 0.1 mg/dL (0-0.2); Bilirubin Total 0.2 mg/dL (0.2-1.0); Glucose Level 221 mg/dL (74-106); Magnesium 1.9 mg/dL (1.8-2.4); NT PRO-BNP 19 pg/mL (<125); Potassium 3.7 mmol/L (3.5-5.1); Protein, Total 6.5 g/dL (6.4-8.2); Sodium Level 138 mmol/L (136-145); Troponin (Emerg Dept Use Only) < 0.02 ng/mL (0.0-0.045)
[2019-02-07] MEDS ORDERED: FENTANYL CITR 100 MCG/2 ML ONE (11:25)
--- NOTE | 2019-02-07 12:18 | EKG ---
Test Date: 2019-02-07 Test Time: 10:29:00 Crystalizer Operator: SCOTTIE MEASUREMENT RESULTS: Intervals: Rate: 92 AR: 148 QRSD: 102 QT: 336 QTc: 415 [place]: P: 50 AR: 148 QRS: 58 T: -34 INTERPRETIVE STATEMENTS: Normal sinus rhythm ST & T wave abnormality, consider inferior ischemia Abnormal ECG Compared to ECG 02/02/2019 11:52:51 ST (T wave) deviation now present Possible ischemia now present T-wave abnormality no longer present Electronically Signed On 02-07-19 12:17:13 CDT by Eduardo Hernandes
--- NOTE | 2019-02-07 13:43 | EDPHYS ---
Physician Documentation [facility] Name: Juan Miguel Langston Age: 53 yrs Sex: Male : 1965 Arrival Date: 02/07/2019 Time: 10:20 Bed 8 Private MD: ED Physician Lenard Rosario HPI: 02/07 10:56 This 53 yrs old Male presents to ER via EMS with complaints of Chest Pain > jr8 30 y/o. 10:56 The patient or guardian reports chest pain that is located primarily in the substernal jr8 area. Onset: acutely, today. The pain does not radiate. Associated signs and symptoms: The patient has no apparent associated signs or symptoms. The chest pain is described as a pressure. Duration: The patient or guardian reports a single episode, that is still ongoing. Modifying factors: The symptoms are alleviated by nothing. the symptoms are aggravated by activity. Severity of pain: At its worst the pain was moderate in the emergency department the pain is unchanged. The patient has experienced similar episodes in the past, several times. It is unknown whether or not the patient has recently seen a physician. Patient stated that his blood pressure had spiked. Started to have chest pain this morning. Took three nitroglycerin prior to arrival with only minimal relief . Historical: - Allergies: 10:25 Azithromycin; sg 10:25 Metoprolol Tartrate; sg - Home Meds: 10:25 aspirin 81 mg Oral chew 1 tab once daily [Active]; isosorbide mononitrate 30 mg Oral sg Tb24 1 tab once daily [Active]; lisinopril 20 mg Oral tab once daily [Active]; - PMHx: 10:25 Angina; COPD; Diabetes - NIDDM; High Cholesterol; Hypertension; Myocardial infarction; sg Sleep Apnea; - Immunization history:: Adult Immunizations not up to date. - Social history:: Smoking status: Patient uses tobacco products. - Ebola Screening: : Patient negative for fever greater than or equal to 101.5 degrees Fahrenheit, and additional compatible Ebola Virus Disease symptoms Patient denies exposure to infectious person Patient denies travel to an Ebola-affected area in the 21 days before illness onset No symptoms or risks identified at this time. ROS: 10:56 Eyes: Negative for injury, pain, redness, and discharge, ENT: Negative for injury, jr8 pain, and discharge, Neck: Negative for injury, pain, and swelling, Respiratory: Negative for shortness of breath, cough, wheezing, and pleuritic chest pain, Abdomen/GI: Negative for abdominal pain, nausea, vomiting, diarrhea, and constipation, Back: Negative for injury and pain, MS/Extremity: Negative for injury and deformity, Skin: Negative for injury, rash, and discoloration, Neuro: Negative for headache, weakness, numbness, tingling, and seizure. 10:56 Cardiovascular: Positive for chest pain, Negative for edema, orthopnea, palpitations, paroxysmal nocturnal dyspnea. Exam: 10:56 Eyes: Pupils equal round and reactive to light, extra-ocular motions intact. Lids and jr8 lashes normal. Conjunctiva and sclera are non-icteric and not injected. Cornea within normal limits. Periorbital areas with no swelling, redness, or edema. ENT: Nares patent. No nasal discharge, no septal abnormalities noted. Tympanic membranes are normal and external auditory canals are clear. Oropharynx with no redness, swelling, or masses, exudates, or evidence of obstruction, uvula midline. Mucous membranes moist. Neck: Trachea midline, no thyromegaly or masses palpated, and no cervical lymphadenopathy. Supple, full range of motion without nuchal rigidity, or vertebral point tenderness. No Meningismus. Chest/axilla: Normal chest wall appearance and motion. Nontender with no deformity. No lesions are appreciated. Cardiovascular: Regular rate and rhythm with a normal S1 and S2. No gallops, murmurs, or rubs. Normal PMI, no JVD. No pulse deficits. Respiratory: Lungs have equal breath sounds bilaterally, clear to auscultation and percussion. No rales, rhonchi or wheezes noted. No increased work of breathing, no retractions or nasal flaring. Abdomen/GI: Soft, non-tender, with normal bowel sounds. No distension or tympany. No guarding or rebound. No evidence of tenderness throughout. Back: No spinal tenderness. No costovertebral tenderness. Full range of motion. Skin: Warm, dry with normal turgor. Normal color with no rashes, no lesions, and no evidence of cellulitis. MS/ Extremity: Pulses equal, no cyanosis. Neurovascular intact. Full, normal range of motion. Neuro: Awake and alert, GCS 15, oriented to person, place, time, and situation. Cranial nerves II-XII grossly intact. Motor strength 5/5 in all extremities. Sensory grossly intact. Cerebellar exam normal. Normal gait. Vital Signs: 10:24 BP 157 / 68; Pulse 92; Resp 20; Temp 98.9; Pulse Ox 100% on R/A; Pain 10/10; sg 10:57 BP 127 / 75; Pulse 77; Resp 16; Pulse Ox 96% ; sv 11:28 BP 139 / 66; Pulse 80; Resp 13; Pulse Ox 96% ; sv 12:14 BP 148 / 69; Pulse 55; Resp 14; Pulse Ox 97% ; sv 12:50 BP 150 / 75; Pulse 64; Resp 16; Pulse Ox 95% ; sv 13:48 BP 150 / 90; Pulse 88; Resp 17; Pulse Ox 100% on R/A; Pain 10/10; sg MDM: 10:21 Patient medically screened. rambo 13:41 The patient was given aspirin in the Emergency Department. Data reviewed: vital signs, 8 nurses notes, lab test result(s), EKG, radiologic studies, plain films. Data interpreted: Pulse oximetry: on room air is 95 %. Interpretation: normal. Counseling: I had a detailed discussion with the patient and/or guardian regarding: the historical points, exam findings, and any diagnostic results supporting the discharge/admit diagnosis, lab results, radiology results, the need for outpatient follow up, a sod stripper, a family practitioner, to return to the emergency department if symptoms worsen or persist or if there are any questions or concerns that arise at home. 02/07 10:21 Order name: Basic Metabolic Panel; Complete Time: 11:19 [facility] 02/07 10:21 Order name: CBC with Diff; Complete Time: 10:56 [facility] 02/07 10:21 Order name: LFT's; Complete Time: 11:19 [facility] 02/07 10:21 Order name: Magnesium; Complete Time: 11:19 [facility] 02/07 10:21 Order name: NT PRO-BNP; Complete Time: 11:19 [facility] 02/07 10:21 Order name: PT-INR; Complete Time: 11:11 [facility] 02/07 10:21 Order name: Troponin (emerg Dept Use Only); Complete Time: 11:19 [facility] 02/07 10:21 Order name: XRAY Chest (1 view); Complete Time: 11:11 [facility] 02/07 10:21 Order name: EKG; Complete Time: 10:23 [facility] 02/07 10:21 Order name: Cardiac monitoring; Complete Time: 10:24 [facility] 02/07 12:36 Order name: Troponin (emerg Dept Use Only); Complete Time: 13:41 jr8 02/07 10:21 Order name: EKG - Nurse/Tech; Complete Time: 10:24 [facility] 02/07 10:21 Order name: IV Saline Lock; Complete Time: 10: [facility] 02/07 10:21 Order name: Labs collected and sent; Complete Time: 10: [facility] 02/07 10:21 Order name: O2 Per Protocol; Complete Time: 10: [facility] 02/07 10:21 Order name: O2 Sat Monitoring; Complete Time: [facility] 02/07 10:21 Order name: Urine Dipstick-Ancillary (obtain specimen); Complete Time: 10:23 [facility] Administered Medications: 11:03 Not Given (administered in route CLIENT SERVICE SUPERVISOR): Aspirin Chewable Tablet 324 mg PO once; 81 mg sg tablets x 4 11:25 Drug: fentaNYL (PF) 25 mcg {Note: RASS -1.} Route: IVP; Site: right hand; sv 12:00 Follow up: Response: No adverse reaction; Pain is unchanged, physician notified; RASS: sg Drowsy (-1) Disposition: 02/08 09:15 Co-signature as Attending Physician, Lenard Rosario MD I agree with the assessment and [facility] plan of care. Disposition: 02/07/19 13:42 Discharged to Home. Impression: Chest pain, unspecified. - Condition is Stable. - Discharge Instructions: Nonspecific Chest Pain, Aspirin and Your Heart. - Medication Reconciliation Form, Thank You Letter, Antibiotic Education, Prescription Opioid Use form. - Follow up: Private Physician; When: Tomorrow; Reason: Recheck today's complaints, Continuance of care, Re-evaluation by your physician. - Problem is new. - Symptoms have improved. Signatures: Dispatcher [employer] Nilda Smyth, Mehul Cardoza RN, RN RN sg Anderson, Corey, MD MD cha Roszak, Josh, PA PA jr8 Corrections: (The following items were deleted from the chart) 02/07 14:23 13:42 02/07/2019 13:42 Discharged to Home. Impression: Chest pain, unspecified. sg Condition is Stable. Forms are Medication Reconciliation Form, Thank You Letter, Antibiotic Education, Prescription Opioid Use. Follow up: Private Physician; When: Tomorrow; Reason: Recheck today's complaints, Continuance of care, Re-evaluation by your physician. Problem is new. Symptoms have improved. jr8
--- NOTE | 2019-02-07 13:43 | ER ---
Nurse's Notes [facility] Name: Juan Miguel Langston Age: 53 yrs Sex: Male : 1965 Arrival Date: 02/07/2019 Time: 10:20 Bed 8 Private MD: Diagnosis: Chest pain, unspecified Presentation: 02/07 10:23 Presenting complaint: EMS states: Chest Pain that began this morning, reports shortness sg of breath as well, denies N/V/D/Fever. Transition of care: patient was not received from another setting of care. Onset of symptoms was February 07, 2019. Risk Assessment: Do you want to hurt yourself or someone else? Patient reports no desire to harm self or others. Initial Sepsis Screen: Does the patient meet any 2 criteria? No. Patient's initial sepsis screen is negative. Does the patient have a suspected source of infection? No. Patient's initial sepsis screen is negative. Care prior to arrival: Medication(s) given: Nitroglycerin, x 2, IV initiated. 20 GA, in the right hand. 10:23 Method Of Arrival: EMS: [facility] sg 10:23 Acuity: DESTINY 3 sg 10:23 Care prior to arrival: Medication(s) given: ASA, 81 mg, x 4. sg Historical: - Allergies: 10:25 Azithromycin; sg 10:25 Metoprolol Tartrate; sg - Home Meds: 10:25 aspirin 81 mg Oral chew 1 tab once daily [Active]; isosorbide mononitrate 30 mg Oral sg Tb24 1 tab once daily [Active]; lisinopril 20 mg Oral tab once daily [Active]; - PMHx: 10:25 Angina; COPD; Diabetes - NIDDM; High Cholesterol; Hypertension; Myocardial infarction; sg Sleep Apnea; - Immunization history:: Adult Immunizations not up to date. - Social history:: Smoking status: Patient uses tobacco products. - Ebola Screening: : Patient negative for fever greater than or equal to 101.5 degrees Fahrenheit, and additional compatible Ebola Virus Disease symptoms Patient denies exposure to infectious person Patient denies travel to an Ebola-affected area in the 21 days before illness onset No symptoms or risks identified at this time. Screenin:25 Abuse screen: Denies threats or abuse. Denies injuries from another. Nutritional sg screening: No deficits noted. Tuberculosis screening: No symptoms or risk factors identified. Never had TB. Fall Risk None identified. Assessment: 10:25 General: Appears in no apparent distress. unkempt, well developed, well nourished, sg Behavior is calm, cooperative, appropriate for age, quiet. Pain: Complains of pain in chest Quality of pain is described as aching, sharp, stabbing. Pain: Pain does not radiate. Pain currently is 10 out of 10 on a pain scale. at worst was 10 out of 10 on a pain scale. Pain began gradually, 3 hours ago. Neuro: Level of Consciousness is awake, alert, obeys commands, Oriented to person, place, time, Bar Examiner are equal bilaterally Moves all extremities. Gait is steady, Speech is normal, Facial symmetry appears normal, Pupils are PERRLA. Cardiovascular: Capillary refill is brisk in bilateral fingers Patient's skin is warm and dry. Chest pain is denied. Respiratory: Airway is patent Respiratory effort is even, unlabored, Respiratory pattern is regular, symmetrical. GI: Abdomen is round non-distended, Bowel sounds present X 4 quads. : No signs and/or symptoms were reported regarding the genitourinary system. EENT: Oral mucosa is moist. Derm: Skin is pink, warm \T\ dry. Musculoskeletal: Circulation, motion, and sensation intact. Range of motion: intact in all extremities. 11:27 Reassessment: Patient appears in no apparent distress at this time. No changes from sv previously documented assessment. Patient and/or family updated on plan of care and expected duration. Pain level reassessed. Patient is alert, oriented x 3, equal unlabored respirations, skin warm/dry/pink. 12:30 Reassessment: Patient appears in no apparent distress at this time. No changes from sg previously documented assessment. Patient and/or family updated on plan of care and expected duration. Pain level reassessed. Patient is alert, oriented x 3, equal unlabored respirations, skin warm/dry/pink. Patient states symptoms have not improved. 13:22 Reassessment: Patient appears in no apparent distress at this time. Patient and/or sg family updated on plan of care and expected duration. Pain level reassessed. Patient is alert, oriented x 3, equal unlabored respirations, skin warm/dry/pink. awaiting results for repeat troponin at this time. Vital Signs: 10:24 BP 157 / 68; Pulse 92; Resp 20; Temp 98.9; Pulse Ox 100% on R/A; Pain 10/10; sg 10:57 BP 127 / 75; Pulse 77; Resp 16; Pulse Ox 96% ; sv 11:28 BP 139 / 66; Pulse 80; Resp 13; Pulse Ox 96% ; sv 12:14 BP 148 / 69; Pulse 55; Resp 14; Pulse Ox 97% ; sv 12:50 BP 150 / 75; Pulse 64; Resp 16; Pulse Ox 95% ; sv 13:48 BP 150 / 90; Pulse 88; Resp 17; Pulse Ox 100% on R/A; Pain 10/10; sg ED Course: 10:20 Patient arrived in ED. sv 10:21 Lenard Rosario MD is Attending Physician. rambo 10:21 Rigoberto Godoy PA is PHCP. jr8 10:21 Lenard Rosario MD is Attending Physician. jr8 10:21 Mehul Deluca, NICCI is Primary Nurse. sg 10:23 Triage completed. sg 10:23 Arm band placed on. EKG completed in triage. Results shown to MD. EKG completed in sg triage. Results shown to MD. 10:25 Patient has correct armband on for positive identification. Bed in low position. Call sg light in reach. Side rails up X2. pediatric pathologist on. Pulse ox on. NIBP on. Warm blanket given. Head of bed elevated. 10:25 Initial lab(s) drawn, by me, sent to lab. Maintain EMS IV. Dressing intact. Site clean sg \T\ dry. Gauge \T\ site: 20 G R hand. 10:25 No provider procedures requiring assistance completed. sg 10:27 EKG done, by senior engineering technician. reviewed by Rigoberto CHUN. dt2 10:58 XRAY Chest (1 view) In Process Unspecified. EDMS 13:00 Repeat lab(s) drawn. by me, sent to lab. sg 14:20 IV discontinued, intact, bleeding controlled, No redness/swelling at site. Pressure sg dressing applied. Patient maintains SpO2 saturation greater than 95% on room air. Administered Medications: 11:03 Not Given (administered in route COMPLAINT MANAGER): Aspirin Chewable Tablet 324 mg PO once; 81 mg sg tablets x 4 11:25 Drug: fentaNYL (PF) 25 mcg {Note: RASS -1.} Route: IVP; Site: right hand; sv 12:00 Follow up: Response: No adverse reaction; Pain is unchanged, physician notified; RASS: sg Drowsy (-1) Outcome: 13:42 Discharge ordered by MD. laurent 14:20 Discharged to home ambulatory. sg 14:20 Condition: good 14:20 Discharge instructions given to patient, Instructed on discharge instructions, follow up and referral plans. safety practices, Demonstrated understanding of instructions, follow-up care. 14:23 Patient left the ED. sg Signatures: Dispatcher [employer] Nilda Smyth RN RN sv Gay, Steven, RN RN sg Anderson, Corey, MD MD cha Roszak, Josh, PA PA jr8 Teague, Danielle dt2 Corrections: (The following items were deleted from the chart) 10:24 10:23 Care prior to arrival: None. sg sg
[2019-02-07 14:45] VITALS: TEMP 98.9
[2019-02-07 14:52] VITALS: BP 150/90; O2SAT 100
== END 2019-02-07 14:23 | disposition home or self-care (01) ==
LOC: ER 10:16
DX: R07.9 Chest pain, unspecified (principal); I10 Essential (primary) hypertension; E78.00 Pure hypercholesterolemia, unspecified; E11.9 Type 2 diabetes mellitus without complications; J44.9 Chronic obstructive pulmonary disease, unspecified; I25.2 Old myocardial infarction; Z72.0 Tobacco use; Z79.82 Long term (current) use of aspirin; Z88.3 Allergy status to other anti-infective agents; Z88.8 Allergy status to other drugs, medicaments and biological substances
CPT/HCPCS: 36415; 71045; 80048; 80076; 83735; 83880; 84484; 85025; 85610; 93005; 96374; 99285; J3010

== ENCOUNTER 2019-02-11 20:14 | Emergency (ER) | payer SELFPAY ==
--- OUTSIDE RECORDS SUMMARY | 2019-02-11 20:16 | XMS REPORT ---
:1965 [facility] Address [address] [place] [address] Dr. Fierro [address] [place] [id number] Care Team Providers Name Role Phone Unavailable Unavailable Unavailable Problems This patient has no known problems. Allergies, Adverse Reactions, Alerts This patient has no known allergies or adverse reactions. Medications This patient has no known medications.
--- OUTSIDE RECORDS SUMMARY | 2019-02-11 20:17 | XMS REPORT | Summary of Care ---
:1965 Author Organization [facility] - Health Address [address] [place] [address] Care Team Providers Name Role Phone Ekta Lucero Michael ROCHA Primary Care Provider Encounter Details Date Type Department Care Team Description 02/08/2019 Orders Only [facility] Doctor Unassigned, No [address] [facility] [place] [address] [address] [place] [address] Allergies Active Allergy Reactions Severity Noted Date Comments Azithromycin Swelling High 08/11/2018 Metoprolol Other - See comments 07/11/2018 Lowers heart rate too low documented as of this encounter (statuses as of 02/08/2019) Medications Medication Sig Dispensed Refills Start Date [...] as of this encounter (statuses as of 02/08/2019) Active Problems Problem Noted Date Nonobstructive atherosclerosis of coronary artery 03/11/2018 HTN (hypertension) 12/07/2013 HLD (hyperlipidemia) 12/07/2013 Borderline diabetes mellitus 12/07/2013 Obesity (BMI 30-39.9) 12/07/2013 Tobacco abuse 12/07/2013 Chest pain 11/20/2013 documented as of this encounter (statuses as of 02/08/2019) Immunizations Name Administration Dates Next Due Influenza [...] Office Visit Cardiology Eunice Chang MD [address] [facility] [address] [place] [address] [phone] 03/30/2019 Office Visit Pulmonary Disease Mayela Funes, [address] [place] [id number] Health Maintenance Due Date Last Done Comments DTaP,Tdap,and Td Vaccines (1 - Tdap) 1984 COLONOSCOPY 09/07/2015 Zoster Recombinant Vaccine (SHINGRIX) (1 of 2) 09/07/2015 INFLUENZA VACCINE 03/04/2019 09/19/2013 PNEUMOCOCCAL 0-64 YEARS COMBINED SERIES Completed 09/19/2013 documented as of this encounter Procedures Procedure Name Priority Date/Time Associated Diagnosis Comments EXTERNAL PROVIDER Routine 02/08/2019 12:01 AM CDT RECORDS documented in this encounter Results Not on filedocumented in this encounter Insurance Payer Benefit Plan Subscriber ID Effective Phone Address Type / Group Dates [place]SE[place]DON [id number] 2018-Presmichael [phone] [facility] [address] [place] [address] [employer] [place] [place] [id number] 2019-[address] [place] [address] [address] [facility] [address] [place] [address] documented as of this encounter
--- NOTE | 2019-02-11 20:42 | EDPHYS ---
Physician Documentation [facility] Name: Juan Miguel Langston Age: 53 yrs Sex: Male : 1965 Arrival Date: 02/11/2019 Time: 20:16 Bed 3 Private MD: ED Physician Donavon Kaufman HPI: 02/11 20:36 This 53 yrs old Male presents to ER via EMS with complaints of High Blood gs Pressure.. 20:36 Onset: The symptoms/episode began/occurred chronic. gs 20:39 Associated signs and symptoms: Pertinent negatives: chest pain, dyspnea. Severity of gs symptoms: At its worst the blood pressure was severe, in the emergency department the blood pressure is improved, moderately. The patient has experienced similar episodes in the past, chronically. The patient has been recently seen at the [facility] Emergency Department, last week. Historical: - Allergies: 20:21 Azithromycin; ss 20:21 Metoprolol Tartrate; ss 20:19 Azithromycin; ss 20:19 Metoprolol Tartrate; ss - Home Meds: 20:21 aspirin 81 mg Oral chew 1 tab once daily [Active]; isosorbide mononitrate 30 mg Oral ss Tb24 1 tab once daily [Active]; lisinopril 20 mg Oral tab once daily [Active]; atorvastatin oral oral once daily [Active]; - PMHx: 20:21 Angina; COPD; Diabetes - NIDDM; High Cholesterol; Hypertension; Myocardial infarction; ss Sleep Apnea; - Immunization history:: Adult Immunizations up to date, Adult Immunizations up to date. - Social history:: Smoking status: Patient uses tobacco products, smokes one-half pack cigarettes per day, Smoking status: Patient uses tobacco products, smokes one-half pack cigarettes per day. - Ebola Screening: : Patient denies exposure to infectious person Patient denies travel to an Ebola-affected area in the 21 days before illness onset Patient denies exposure to infectious person Patient denies travel to an Ebola-affected area in the 21 days before illness onset. ROS: 20:39 All other systems are negative. gs Exam: 20:39 Head/Face: Normocephalic, atraumatic. Eyes: Pupils equal round and reactive to light, gs extra-ocular motions intact. Lids and lashes normal. Conjunctiva and sclera are non-icteric and not injected. Cornea within normal limits. Periorbital areas with no swelling, redness, or edema. ENT: Nares patent. No nasal discharge, no septal abnormalities noted. Tympanic membranes are normal and external auditory canals are clear. Oropharynx with no redness, swelling, or masses, exudates, or evidence of obstruction, uvula midline. Mucous membranes moist. Neck: Trachea midline, no thyromegaly or masses palpated, and no cervical lymphadenopathy. Supple, full range of motion without nuchal rigidity, or vertebral point tenderness. No Meningismus. Chest/axilla: Normal chest wall appearance and motion. Nontender with no deformity. No lesions are appreciated. Respiratory: Lungs have equal breath sounds bilaterally, clear to auscultation and percussion. No rales, rhonchi or wheezes noted. No increased work of breathing, no retractions or nasal flaring. Abdomen/GI: Soft, non-tender, with normal bowel sounds. No distension or tympany. No guarding or rebound. No evidence of tenderness throughout. Back: No spinal tenderness. No costovertebral tenderness. Full range of motion. Skin: Warm, dry with normal turgor. Normal color with no rashes, no lesions, and no evidence of cellulitis. MS/ Extremity: Pulses equal, no cyanosis. Neurovascular intact. Full, normal range of motion. Neuro: Awake and alert, GCS 15, oriented to person, place, time, and situation. Cranial nerves II-XII grossly intact. Motor strength 5/5 in all extremities. Sensory grossly intact. Cerebellar exam normal. Normal gait. 20:39 Constitutional: The patient appears alert, awake. 20:39 Cardiovascular: Rate: tachycardic, actual rate is 100 bpm, Rhythm: regular, Pulses: no pulse deficits are appreciated, Edema: 1+ edema to level of left ankle and right ankle. 21:07 ECG was reviewed by the Attending Physician. Vital Signs: 20:16 BP 165 / 92; Pulse 101; Resp 20; Temp 98.7(O); Pulse Ox 98% on R/A; Weight 118.84 kg; ss Height 5 ft. 6 in. (167.64 cm); Pain 7/10; 20:46 BP 139 / 62; Pulse 91; Resp 23; Pulse Ox 95% on R/A; ak1 20:16 Body Mass Index 42.29 (118.84 kg, 167.64 cm) MDM: 20:31 Patient medically screened. gs 20:39 Differential diagnosis: hypertensive crisis, Malignant HTN, med non compliance. Data gs reviewed: vital signs, nurses notes. Counseling: I had a detailed discussion with the patient and/or guardian regarding: the historical points, exam findings, and any diagnostic results supporting the discharge/admit diagnosis, the need for outpatient follow up. Response to treatment: the patient's symptoms have mildly improved after treatment, and as a result, I will discharge patient. 02/11 20:52 Order name: EKG; Complete Time: 20:56 ak1 02/11 20:52 Order name: EKG - Nurse/Tech; Complete Time: 20:53 ak1 EC:07 Rate is 89 beats/min. Rhythm is regular. ND interval is normal. QRS interval is gs prolonged. T waves are Flattened. Clinical impression: Abnormal EKG without significant change. Interpreted by me. Administered Medications: 20:47 Not Given (Hemodynamic Parameters; Dr. Kaufman notified): Lisinopril 10 mg PO once ss Disposition: 02/11/19 20:42 Discharged to Home. Impression: Essential (primary) hypertension, Homelessness, Patient's noncompliance with medical treatment and regimen. - Condition is Stable. - Discharge Instructions: Hypertension, Managing Your Hypertension. - Medication Reconciliation Form, Thank You Letter, Antibiotic Education, Prescription Opioid Use form. - Follow up: Private Physician; When: 1 - 2 days; Reason: Re-evaluation by your physician. Signatures: Lilia Roche RN RN Malu Herrera RN RN [facility] Donavon Kaufman MD MD Corrections: (The following items were deleted from the chart) 21:07 20:42 02/11/2019 20:42 Discharged to Home. Impression: Essential (primary) ss hypertension; Homelessness; Patient's noncompliance with medical treatment and regimen. Condition is Stable. Forms are Medication Reconciliation Form, Thank You Letter, Antibiotic Education, Prescription Opioid Use. Follow up: Private Physician; When: 1 - 2 days; Reason: Re-evaluation by your physician. gs
--- NOTE | 2019-02-11 20:42 | ER ---
Nurse's Notes [facility] Name: Juan Miguel Lagnston Age: 53 yrs Sex: Male : 1965 Arrival Date: 02/11/2019 Time: 20:16 Bed 3 Private MD: Diagnosis: Essential (primary) hypertension;Homelessness;Patient's noncompliance with medical treatment and regimen Presentation: 02/11 20:17 Presenting complaint: Patient states: Checked blood pressure this evening that was ss 202/84 and has felt fatigued all day. EMS checked blood pressure which was 152/90. Transition of care: patient was not received from another setting of care. Onset of symptoms is unknown. Risk Assessment: Do you want to hurt yourself or someone else? Patient reports no desire to harm self or others. Initial Sepsis Screen: Does the patient meet any 2 criteria? HR > 90 bpm. Does the patient have a suspected source of infection? No. Patient's initial sepsis screen is negative. Care prior to arrival: None. 20:17 Acuity: DESTINY 3 ss 20:17 Method Of Arrival: EMS: [facility] ss Historical: - Allergies: 20:21 Azithromycin; ss 20:21 Metoprolol Tartrate; ss 20:19 Azithromycin; ss 20:19 Metoprolol Tartrate; ss - Home Meds: 20:21 aspirin 81 mg Oral chew 1 tab once daily [Active]; isosorbide mononitrate 30 mg Oral ss Tb24 1 tab once daily [Active]; lisinopril 20 mg Oral tab once daily [Active]; atorvastatin oral oral once daily [Active]; - PMHx: 20:21 Angina; COPD; Diabetes - NIDDM; High Cholesterol; Hypertension; Myocardial infarction; ss Sleep Apnea; - Immunization history:: Adult Immunizations up to date, Adult Immunizations up to date. - Social history:: Smoking status: Patient uses tobacco products, smokes one-half pack cigarettes per day, Smoking status: Patient uses tobacco products, smokes one-half pack cigarettes per day. - Ebola Screening: : Patient denies exposure to infectious person Patient denies travel to an Ebola-affected area in the 21 days before illness onset Patient denies exposure to infectious person Patient denies travel to an Ebola-affected area in the 21 days before illness onset. Screenin:21 Abuse screen: Denies threats or abuse. Denies injuries from another. Nutritional ss screening: No deficits noted. Tuberculosis screening: Never had TB. Fall Risk None identified. Assessment: 20:21 General: Appears in no apparent distress. comfortable, unkempt, Behavior is calm, ss cooperative, Denies fever, feeling ill, fatigue, chills. Pain: Complains of pain in chest Pain currently is 7 out of 10 on a pain scale. Quality of pain is described as aching, Is continuous, chronic. Neuro: Level of Consciousness is awake, alert, obeys commands, Oriented to person, place, time, situation, Speech is normal. Cardiovascular: Pulses are palpable in right radial artery and left radial artery. Respiratory: Airway is patent Respiratory effort is even, unlabored, Respiratory pattern is regular, symmetrical. GI: Abdomen is round. : No signs and/or symptoms were reported regarding the genitourinary system. Denies burning with urination, urinary frequency. EENT: Nares are clear Oral mucosa is moist. EENT: Derm: Skin is intact, is healthy with good turgor, Skin is dry, Skin is pink, warm \T\ dry. normal. Musculoskeletal: Circulation, motion, and sensation intact. Range of motion: intact in all extremities, Swelling absent. 20:25 Reassessment: patient was seen in er 4 days ago. ss 20:47 Reassessment: Dr. Kaufman notified of improved BP prior to Lisinopril. Dr. Kaufman ss verbalizes to go ahead and cancel Lisinopril 10 mg and obtain EKG. If EKG okay after reviewing, okay to discharge patient. 21:06 Reassessment: Patient upset because he is up for discharge. Patient reports he has a ss follow up appointment soon with their PCP at a clinic. Vital Signs: 20:16 BP 165 / 92; Pulse 101; Resp 20; Temp 98.7(O); Pulse Ox 98% on R/A; Weight 118.84 kg; ss Height 5 ft. 6 in. (167.64 cm); Pain 7/10; 20:46 BP 139 / 62; Pulse 91; Resp 23; Pulse Ox 95% on R/A; ak1 20:16 Body Mass Index 42.29 (118.84 kg, 167.64 cm) ED Course: 20:16 Patient arrived in ED. ds1 20:16 Smirch, Lilia, RN is Primary Nurse. ss 20:16 Arm band placed on right wrist. ss 20:18 Triage completed. ss 20:21 Patient has correct armband on for positive identification. Placed in gown. Bed in low ss position. Call light in reach. surveillance system monitor on. Pulse ox on. NIBP on. 20:22 Donavon Kaufman MD is Attending Physician. gs 21:06 No provider procedures requiring assistance completed. Patient did not have IV access ss during this emergency room visit. Administered Medications: 20:47 Not Given (Hemodynamic Parameters; Dr. Kaufman notified): Lisinopril 10 mg PO once ss Outcome: 20:42 Discharge ordered by MD. gs 21:06 Discharged to home ambulatory, with family. ss 21:06 Condition: good 21:06 Discharge instructions given to patient, significant other, Instructed on discharge instructions, follow up and referral plans. medication usage, Demonstrated understanding of instructions, follow-up care, medications. 21:07 Patient left the ED. Signatures: Shereen Lopez ds1 Lilia Roche, NICCI RN Malu Herrera RN RN ak1 Donavon Kaufman MD MD
[2019-02-11] MEDS ORDERED: LISINOPRIL 10 MG TAB ONE (20:44)
[2019-02-11 21:52] VITALS: TEMP 98.7
[2019-02-11 21:53] VITALS: BP 139/62; O2SAT 95
--- NOTE | 2019-02-12 07:36 | EKG ---
Test Date: 2019-02-11 Test Time: 20:54:43 Night Worker: ANAT MEASUREMENT RESULTS: Intervals: Rate: 89 SD: 140 QRSD: 104 QT: 350 QTc: 425 [place]aman: P: 42 SD: 140 QRS: 48 T: -4 INTERPRETIVE STATEMENTS: Normal sinus rhythm T wave abnormality, consider inferior ischemia Abnormal ECG Compared to ECG 02/07/2019 10:29:00 T-wave abnormality now present ST (T wave) deviation no longer present Possible ischemia still present Electronically Signed On 02-12-19 07:35:35 CDT by Eduardo Hernandes
== END 2019-02-11 21:07 | disposition home or self-care (01) ==
LOC: ER 20:14
DX: I10 Essential (primary) hypertension (principal); Z91.14 Patient's other noncompliance with medication regimen; Z59.0 Homelessness; I25.2 Old myocardial infarction; E11.9 Type 2 diabetes mellitus without complications; J44.9 Chronic obstructive pulmonary disease, unspecified; F17.210 Nicotine dependence, cigarettes, uncomplicated; Z79.82 Long term (current) use of aspirin; Z88.3 Allergy status to other anti-infective agents; Z88.8 Allergy status to other drugs, medicaments and biological substances
CPT/HCPCS: 93005; 99284

== ENCOUNTER 2019-02-18 09:11 | Emergency (ER) | payer SELFPAY ==
--- OUTSIDE RECORDS SUMMARY | 2019-02-18 09:14 | XMS REPORT ---
:1965 [facility] Address [address] [place] [address] Dr. Fierro [address] [place] [id number] Care Team Providers Name Role Phone Unavailable Unavailable Unavailable Problems This patient has no known problems. Allergies, Adverse Reactions, Alerts This patient has no known allergies or adverse reactions. Medications This patient has no known medications.
--- OUTSIDE RECORDS SUMMARY | 2019-02-18 09:15 | XMS REPORT | Summary of Care ---
:1965 Author Organization [facility] Address [address] [place] [id number] Care Team Providers Name Role Phone Ekta Lucero Primary Care Provider Reason for Referral Radiology Services (Routine) Status Reason Specialty Diagnoses / Referred By Referred To Procedures Contact Contact New Request Diagnostic Diagnoses Other chest pain Coronary artery disease involving [place] coronary artery of [place] heart without angina pectoris Essential hypertension Eunice Chang, Radiology Procedures NM MYOCARDIUM PERFUSION STRESS AND REST [address] [place] [address] [address] [place] [address] Reason for Visit Reason Comments 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) Status Reason Specialty Diagnoses / Procedures Referred By Contact Referred To Contact Closed Cardiology Diagnoses Essential hypertension SOB (shortness of breath) on exertion Chest pain, unspecified type Peripheral edema Ekta Lucero FNP Procedures CONSULT/REFERRAL CARDIOLOGY [address] [place] [address] Encounter Details Date Type Department Care Team Description 02/13/2019 Office Visit [facility] Eunice Chang MD Other chest pain (Primary Dx); Cardiology- [address] Coronary artery disease involving [place] coronary artery of [place] heart without angina pectoris; [address] [place] [address] Essential hypertension; [facility], [address] Obesity (BMI 30-39.9); [place] [address] Mixed hyperlipidemia; [address] Cigarette smoker; [phone] (HFpEF) heart failure with preserved ejection fraction Allergies Active Allergy Reactions Severity Noted Date Comments Azithromycin Swelling High 08/11/2018 Metoprolol Other - See comments 07/11/2018 Lowers heart rate too low documented as of this encounter (statuses as of 02/13/2019) Medications Medication Sig Dispensed Refills Start End Date Status Date nitroglycerin Place 1 Tab 30 Tab 30 Active (NITROSTAT) 0.4 mg under the 4 sublingual tablet tongue every 5 (five) minutes as needed for Chest pain. aspirin 81 mg chewable Take 1 tablet 30 tablet 11 Active tablet by mouth 6 daily. lisinopril 20 mg tablet Take 40 mg by 0 Active mouth daily. pantoprazole 40 mg EC Take 40 mg by 0 Active tablet mouth daily. amLODIPine 5 mg tablet Take 5 mg by 0 Active mouth daily. ibuprofen 800 mg tablet Take 1 tablet 30 tablet 0 Active by mouth 8 every 8 (eight) hours. benzonatate 100 mg Take 1 14 capsule 0 Active capsuleIndications: capsule by 9 Cough, Bronchitis mouth 3 (three) times daily as needed for Cough. albuterol 90 Inhale 2 8.5 g 0 Active mcg/actuation Puffs every 4 9 inhalerIndications: (four) hours Cough, Bronchitis as needed for Wheezing or Shortness of Breath. azithromycin 250 mg Take 1 tablet 1 Package 0 Active tabletIndications: by mouth 9 Cough, Bronchitis SEE-INSTRUCTI ONS. Take 500 mg day 1, then 250 mg days 2 to 5. hydroCHLOROthiazide Take 12.5 mg 0 Active 12.5 mg capsule by mouth daily. albuterol 90 Inhale 2 8.5 g 3 Active mcg/actuation Puffs every 6 9 inhalerIndications: SOB (six) hours (shortness of breath) as needed for on exertion Wheezing or Shortness of Breath. omeprazole 40 mg Take 1 30 capsule 5 Active capsuleIndications: capsule by 9 Chest pain, unspecified mouth daily. type metFORMIN 500 mg Take 1 tablet 30 tablet 5 Active tabletIndications: by mouth 9 Borderline diabetes daily. mellitus atorvastatin (LIPITOR) Take 1 tablet 30 tablet 5 Active 20 mg by mouth at 9 tabletIndications: bedtime. Mixed hyperlipidemia isosorbide mononitrate Take 1 tablet 30 tablet 5 Active 60 mg 24 hr by mouth 9 tabletIndications: every Other chest pain, morning. Coronary artery disease involving [place] coronary artery of [place] heart without angina pectoris, Essential hypertension isosorbide mononitrate Take 30 mg by 0 02/14/20 Discontinued 30 mg 24 hr tablet mouth every 19 morning. isosorbide mononitrate Take 1 tablet 30 tablet 5 02/14/20 Discontinued 30 mg 24 hr by mouth 9 19 tabletIndications: daily. Essential hypertension lisinopril 20 mg Take 1 tablet 30 tablet 5 02/14/20 Discontinued tabletIndications: by mouth 9 Essential hypertension daily. documented as of this encounter (statuses as of 02/13/2019) Active Problems Problem Noted Date Nonobstructive atherosclerosis of coronary artery 03/11/2018 HTN (hypertension) 12/07/2013 HLD (hyperlipidemia) 12/07/2013 Borderline diabetes mellitus 12/07/2013 Obesity (BMI 30-39.9) 12/07/2013 Tobacco abuse 12/07/2013 Chest pain 11/20/2013 documented as of this encounter (statuses as of 02/13/2019) Immunizations Name Administration Dates Next Due Influenza [...] Sign Reading Time Taken Comments Blood Pressure 156/91 02/13/2019 1:46 PM CDT Pulse 88 02/13/2019 1:41 PM CDT Temperature - - Respiratory Rate 20 02/13/2019 1:41 PM CDT Oxygen Saturation 96% 02/13/2019 1:41 PM CDT Inhaled Oxygen Concentration - - Weight 116.9 kg (257 lb 11.2 oz) 02/13/2019 1:41 PM CDT Height 167.6 cm (5' 6") 02/13/2019 1:41 PM CDT Body Mass Index 41.59 02/13/2019 1:41 PM CDT documented in this encounter Patient Instructions Patient InstructionsEunice Chang MD - 02/13/2019 1:40 PM CDTTake Imdur 60 mg daily documented in this encounter Progress Notes Eunice Chang MD - 02/13/2019 1:40 PM CDT CARDIOLOGY CLINIC NOTE 02/13/2019 Reason for Referral/Presenting Complaint: chest pain PCP: Ekta Lucero History of Present Illness: Juan Miguel Langston is a 53 years old male with history of DM, HTN, HLD, CAD , obesity, and smoking. He is here for chest pain. This has been chronic for years. He had LHC in [facility] in 2016 showing nonobstructive CAD. Apparently had LHC In 2017 in [facility]--no PCI done. He has daily chest pain. It is central and left sided sharp pain, radiating to the left arm, more so when lying flat, non exertional, actually less when walking. Associated with mild SOB. NTG does not help. Review of Systems: General: (-) fever, (-) chills, (-) weight change, (-) dizziness, (-) fatigue Skin: (-) rash HEENT: (-) headache, (-) change in vision Neck: (-) difficulty swallowing Heme: negative Resp: (-) cough, (-) dyspnea on exertion Cardio: (+) chest pain, (-) palpitations, (-) syncope GI: (-) vomiting, (-) diarrhea : negative Endo: (+) diabetes, (-) thyroid disease Neuro: (-) numbness, (-) tingling, (-) weakness Back: (-) pain LEONCIO: (-) muscle pain, (-) claudication Psych: (-) anxiety, (-) depression Past Medical History: Past Medical History: Diagnosis Date Arthritis CAD (coronary artery disease) RCA with 30-40% lesion Diabetes mellitus Heart murmur HLD (hyperlipidemia) HTN (hypertension) Obesity (BMI 30.0-34.9) Sinus pause up to 4.7 seconds at night during hospitalization in november 2013 Tobacco abuse Current Medications: Current Outpatient Medications Medication Sig Dispense Refill isosorbide mononitrate 60 mg 24 hr tablet Take 1 tablet by mouth every morning. 30 tablet 5 atorvastatin (LIPITOR) 20 mg tablet Take 1 tablet by mouth at bedtime. 30 tablet 5 metFORMIN 500 mg tablet Take 1 tablet by mouth daily. 30 tablet 5 albuterol 90 mcg/actuation inhaler Inhale 2 Puffs every 6 (six) hours as needed for Wheezing or Shortness of Breath. 8.5 g 3 hydroCHLOROthiazide 12.5 mg capsule Take 12.5 mg by mouth daily. albuterol 90 mcg/actuation inhaler Inhale 2 Puffs every 4 (four) hours as needed for Wheezing orShortness of Breath. 8.5 g 0 amLODIPine 5 mg tablet Take 5 mg by mouth daily. lisinopril 20 mg tablet Take 40 mg by mouth daily. aspirin 81 mg chewable tablet Take 1 tablet by mouth daily. 30 tablet 11 nitroglycerin (NITROSTAT) 0.[address] 1 Tab under the tongue every 5 (five) minutes as needed for Chest pain. 30 Tab 30 omeprazole 40 mg capsule Take 1 capsule by mouth daily. 30 capsule 5 azithromycin 250 mg tablet Take 1 tablet by mouth SEE-INSTRUCTIONS. Take 500 mg day 1, then 250 mg days 2 to 5. 1 Package 0 benzonatate 100 mg capsule Take 1 capsule by mouth 3 (three) times daily as needed for Cough. 14capsule 0 ibuprofen 800 mg tablet Take 1 tablet by mouth every 8 (eight) hours. 30 tablet 0 pantoprazole 40 mg EC tablet Take 40 mg by mouth daily. No current facility-administered medications for this visit. Social History: Social History Socioeconomic History Marital status: Single Spouse name: Not on file Number of children: Not on file Years of education: Not on file Highest education level: Not on file Occupational History Not on file Social Needs Financial resource strain: Not on file Food insecurity: Worry: Not on file Inability: Not on file Transportation needs: Medical: Not on file Non-medical: Not on file Tobacco Use Smoking status: Current Every Day Smoker Packs/day: 0.50 Years: 26.00 Pack years: 13.00 Smokeless tobacco: Former User Tobacco comment: Down to 10 cigs a day Substance and Sexual Activity Alcohol use: No Comment: Stopped in 2012 Drug use: Not Currently Types: Marijuana Comment: as a teenage. None since Sexual activity: Yes Partners: Female control/protection: Post-menopausal Lifestyle Physical activity: Days per week: Not on file Minutes per session: Not on file Stress: Not on file Relationships Social connections: Talks on phone: Not on file Gets together: Not on file Attends protestant service: Not on file Active member of club or organization: Not on file Attends meetings of clubs or organizations: Not on file Relationship status: Not on file Intimate partner violence: Fear of current or ex partner: Not on file Emotionally abused: Not on file Physically abused: Not on file Forced sexual activity: Not on file Other Topics Concern Not on file Social History Narrative 01/11/2019 Lives with girlfriend of 2 years. Family History Family History Problem Relation Age of Onset Coronary Heart Disease Mother of [place] at age 61 Diabetes Maternal Grandmother Physical Examination: BP (!) 156/91 (BP Location: Left arm, Patient Position: Sitting, BP CUFF SIZE: Adult Large) | Pulse88 | Resp 20 | Ht 5' 6" (1.676 m) | Wt 257 lb 11.2 oz ( 116.9 kg) | SpO2 96% | BMI 41.59 kg/m Constitutional: alert and oriented x 3 (person, place and date/time); no apparent distress ENT: normocephalic atraumatic, supple, no lymphadenopathy, no bruits, no JVD Lungs: clear to auscultation bilaterally Cardiovascular: S1, S2 normal, regular; no murmurs, rubs or gallops GI: soft; non-tender; non-distended; normoactive bowel sounds : not examined Musculoskeletal: Extremities: no clubbing, cyanosis, + edema Skin: no rashes Neuro: no focal deficits Cardiovascular testing: EKG: Normal sinus rhythm T wave abnormality, consider inferior ischemia Echocardiogram: Left ventricular systolic function is normal. Ejection Fraction=60-65%. There is trace mitral regurgitation. Mild pulmonic valvular regurgitation. Cardiac Cath: Left Main Artery: angiographically normal. LAD: angiographically normal. Circumflex: LMI. High OM has mid to distal myocardial bridge. RIGHT CORONARY ARTERY: RCA: LMI with 40-50% lesion in mid RCA. Non dominant vessel. LVEDP 20 Assessment/Plan: ICD-10-CM ICD-9-CM 1. Other chest pain R07.89 786.59 2. Coronary artery disease involving [place] coronary artery of [place] heart without angina pectoris I25.10 414.01 3. Essential hypertension I10 401.9 4. Obesity (BMI 30-39.9) E66.9 278.00 5. Mixed hyperlipidemia E78.2 272.2 6. Cigarette smoker F17.210 305.1 7. (HFpEF) heart failure with preserved ejection fraction I50.30 428.9 Chest pain--Very likely non-cardiac. 3 LHC in last 5 years all showing no significant obstruction. Poor response to NTG. Will get a nuclear stress test. If negative, will not pursue any cardiac testing. Non cardiac evaluation. CAD--Non obstructive. Continue ASA and lipitor. HTN--Elevated. Advised to check regularly for adjustment. HLD--On lipitor. HFpEF--Leg edema. LVEDP high on cath. Possible HFpEF. May consider lasix. Smoking cessation 4 mins education. Will reduce cig. Patient was counseled for lifestyle modifications including: diet, exercise, weight loss and smokingcessation Eunice Chang MD, [facility] [place] Reinsurance Accountant, Division of Cardiology [facility] ; Pager documented in this encounter Plan of Treatment Date Type Specialty Care Team Description 03/30/2019 Office Visit Pulmonary Disease Mayela Funes DO [address] [place] [address] 02/18/2020 Office Visit Cardiology Eunice Chang MD [address] [place] [address] [place] [id number] Name Type Priority Associated Diagnoses Order Schedule NM MYOCARDIUM PERFUSION IMAGING Routine Other chest pain Expected: STRESS AND REST Coronary artery disease 02/27/2019, Expires: involving [place] coronary 02/14/2020 artery of [place] heart without angina pectoris Essential hypertension Health Maintenance Due Date Last Done Comments DTaP,Tdap,and Td Vaccines (1 - Tdap) 1984 COLONOSCOPY 09/07/2015 Zoster Recombinant Vaccine (SHINGRIX) (1 of 2) 09/07/2015 INFLUENZA VACCINE 03/04/2019 09/19/2013 PNEUMOCOCCAL 0-64 YEARS COMBINED SERIES Completed 09/19/2013 documented as of this encounter Results Not on filedocumented in this encounter Visit Diagnoses Diagnosis Other chest pain - Primary Coronary artery disease involving [place] coronary artery of [place] heart without angina pectoris Essential hypertension Unspecified essential hypertension Obesity (BMI 30-39.9) Obesity, unspecified Mixed hyperlipidemia Cigarette smoker Tobacco use disorder (HFpEF) heart failure with preserved ejection fraction documented in this encounter Insurance Payer Benefit Plan Subscriber ID Effective Phone Address Type / Group Dates [employer] [place] [employer] [place] [id number] [address] [place] [address] [place] [id number] documented as of this encounter
--- OUTSIDE RECORDS SUMMARY | 2019-02-18 09:15 | XMS REPORT | Summary of Care ---
:1965 Author Organization [facility] Address [address] [place] [id number] Care Team Providers Name Role Phone Ekta Lucero Primary Care Provider Reason for Referral Radiology Services (Routine) Status Reason Specialty Diagnoses / Referred By Referred To Procedures Contact Contact New Request Diagnostic Diagnoses Other chest pain Coronary artery disease involving [place] coronary artery of [place] heart without angina pectoris Essential hypertension Eunice Chang, Radiology Procedures NM MYOCARDIUM PERFUSION STRESS AND REST [address] [place] [address] [address] [place] [address] Reason for Visit Reason Comments 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) Status Reason Specialty Diagnoses / Procedures Referred By Contact Referred To Contact Closed Cardiology Diagnoses Essential hypertension SOB (shortness of breath) on exertion Chest pain, unspecified type Peripheral edema Ekta Lucero FNP Procedures CONSULT/REFERRAL CARDIOLOGY [address] [place] [address] Encounter Details Date Type Department Care Team Description 02/13/2019 Office Visit [facility] Eunice Chang MD Other chest pain (Primary Dx); Cardiology- [address] Coronary artery disease involving [place] coronary artery of [place] heart without angina pectoris; [address] [place] [address] Essential hypertension; [facility], [address] Obesity (BMI 30-39.9); [place] [address] Mixed hyperlipidemia; [address] Cigarette smoker; [phone] (HFpEF) heart failure with preserved ejection fraction [...] chest pain, morning. Coronary artery disease involving [place] coronary artery of [place] heart without angina pectoris, Essential hypertension isosorbide [...] chronic for years. He had LHC in [facility] in 2016 showing nonobstructive CAD. Apparently had LHC In 2017 in [facility]--no PCI done. He has daily chest pain. [...] file Gets together: Not on file Attends taoism service: Not on file Active member of [...] of Onset Coronary Heart Disease Mother of [place] at age 61 Diabetes Maternal Grandmother Physical [...] R07.89 786.59 2. Coronary artery disease involving [place] coronary artery of [place] heart without angina pectoris I25.10 414.01 3. [...] weight loss and smokingcessation Eunice Chang MD, [facility] Child Care Centre Director, Division of Cardiology [facility] ; Pager documented in this encounter Plan of Treatment Date Type Specialty Care Team Description 03/30/2019 Office Visit Pulmonary Disease Mayela Funes DO [address] [place] [address] 02/18/2020 Office Visit Cardiology Eunice Chang MD [address] [place] [address] [place] [id number] Name Type Priority Associated Diagnoses Order Schedule NM MYOCARDIUM PERFUSION IMAGING Routine Other chest pain Expected: STRESS AND REST Coronary artery disease 02/27/2019, Expires: involving [place] coronary 02/14/2020 artery of [place] heart without angina pectoris Essential hypertension Health [...] pain - Primary Coronary artery disease involving [place] coronary artery of [place] heart without angina pectoris Essential hypertension Unspecified essential hypertension Obesity (BMI 30-39.9) Obesity, unspecified Mixed hyperlipidemia Cigarette smoker Tobacco use disorder (HFpEF) heart failure with preserved ejection fraction documented in this encounter Insurance Payer Benefit Plan Subscriber ID Effective Phone Address Type / Group Dates [employer] [id number] 2018-05/[address] [place] [address] [place] [id number] documented as of this encounter
--- NOTE | 2019-02-18 11:08 | ER ---
Nurse's Notes [facility] Name: Juan Miguel Langston Age: 53 yrs Sex: Male : 1965 Arrival Date: 02/18/2019 Time: 09:14 Bed 15 Private MD: Diagnosis: Nicotine dependence, cigarettes, with other nicotine-induced disorders;Sleep apnea, unspecified;Homelessness Presentation: 02/18 09:20 Transition of care: patient was not received from another setting of care. Onset of ss symptoms is unknown. Risk Assessment: Do you want to hurt yourself or someone else? Patient reports no desire to harm self or others. Initial Sepsis Screen: Does the patient have a suspected source of infection? No. Patient's initial sepsis screen is negative. Care prior to arrival: None. 09:20 Method Of Arrival: Ambulatory ss 09:20 Acuity: DESTINY 3 ss 09:45 Presenting complaint: Patient states: Increased swelling to wendie ankles and wrists, also ph reports slight SOB, no resp distress noted. Initial Sepsis Screen: Does the patient meet any 2 criteria? No. Patient's initial sepsis screen is negative. Historical: - Allergies: 09:20 Azithromycin; ss 09:20 Metoprolol Tartrate; ss - Home Meds: 09:20 aspirin 81 mg oral TbEC [Active]; atorvastatin Oral once daily [Active]; isosorbide ss mononitrate 30 mg Oral Tb24 1 tab once daily [Active]; lisinopril 20 mg Oral tab once daily [Active]; - PMHx: 09:20 Angina; COPD; Diabetes - NIDDM; High Cholesterol; Hypertension; Myocardial infarction; ss Sleep Apnea; - Immunization history:: Adult Immunizations up to date. - Social history:: Smoking status: Patient uses tobacco products, smokes one pack cigarettes per day. - Ebola Screening: : Patient denies exposure to infectious person Patient denies travel to an Ebola-affected area in the 21 days before illness onset. Screenin:55 Abuse screen: Denies threats or abuse. Denies injuries from another. Nutritional ph screening: No deficits noted. Tuberculosis screening: No symptoms or risk factors identified. Fall Risk None identified. Assessment: 09:45 General: Appears in no apparent distress. comfortable, unkempt, Behavior is calm, ph cooperative, appropriate for age, Denies fever. Pain: Complains of pain in right leg and left leg. Neuro: Level of Consciousness is awake, alert, obeys commands, Oriented to person, place, time, situation. Cardiovascular: Reports shortness of breath, Denies chest pain, Capillary refill < 3 seconds in bilateral fingers Patient's skin is warm and dry. Edema is absent. Rhythm is regular. Respiratory: Airway is patent Respiratory effort is even, unlabored, Breath sounds are clear bilaterally. GI: No signs and/or symptoms were reported involving the gastrointestinal system. Derm: Skin is intact, is fragile, Skin is pink, warm \T\ dry. Musculoskeletal: Circulation, motion, and sensation intact. Range of motion: intact in all extremities. 10:49 Reassessment: Patient appears in no apparent distress at this time. Patient and/or ph family updated on plan of care and expected duration. Pain level reassessed. Pt asleep, VSS, Spo2 maintained at 93% RA. 11:35 Reassessment: Patient appears in no apparent distress at this time. Patient and/or ph family updated on plan of care and expected duration. Pain level reassessed. Patient is alert, oriented x 3, equal unlabored respirations, skin warm/dry/pink. Pt d/c w/ SO. Vital Signs: 09:25 BP 173 / 95; Pulse 94; Resp 19; Temp 98.9(O); Pulse Ox 95% on R/A; Weight 117.03 kg; dh3 Height 5 ft. 6 in. (167.64 cm); Pain 8/10; 09:46 BP 156 / 78; Pulse 89; Resp 18; Pulse Ox 93% on R/A; ph 10:53 BP 168 / 77; Pulse 77; Resp 18; Pulse Ox 93% on R/A; ph 09:25 Body Mass Index 41.64 (117.03 kg, 167.64 cm) 3 ED Course: 09:14 Patient arrived in ED. as 09:20 Triage completed. ss 09:20 Arm band placed on right wrist. ss 09:28 Frida Leyva, NICCI is Primary Nurse. ph 09:35 Ayleen Galan FNP-C is [facility]. snw 09:35 Donavon Kaufman MD is Attending Physician. snw 09:48 EKG done, by ED staff, reviewed by Ayleen FRANKS. 3 09:57 Chest Pa And Lat (2 Views) XRAY In Process Unspecified. EDMS 10:52 Patient has correct armband on for positive identification. Bed in low position. Call ph light in reach. Pulse ox on. NIBP on. 11:39 No provider procedures requiring assistance completed. Patient did not have IV access ph during this emergency room visit. Administered Medications: No medications were administered Outcome: 11:08 Discharge ordered by . snw 11:39 Patient left the ED. ph 11:39 Discharged to home ambulatory, with significant other. ph 11:39 Condition: good 11:39 Discharge instructions given to Instructed on discharge instructions, follow up and referral plans. Signatures: Dispatcher [employer] EDIN Ayleen Galan, IDENTIFIER HORSE-C IDENTIFIER HORSE-Dee Dee Mcdermott [place], NICCI RN Frida Leyva RN RN Maria Del Carmen Castillo 3 Corrections: (The following items were deleted from the chart) 11:54 11:45 Reassessment: Patient appears in no apparent distress at this time. Patient ph and/or family updated on plan of care and expected duration. Pain level reassessed. Patient is alert, oriented x 3, equal unlabored respirations, skin warm/dry/pink. Pt d/c w/ SO ph
--- NOTE | 2019-02-18 11:08 | EDPHYS ---
Physician Documentation [facility] Name: Juan Miguel Langston Age: 53 yrs Sex: Male : 1965 Arrival Date: 02/18/2019 Time: 09:14 Bed 15 Private MD: ED Physician Donavon Kaufman HPI: 02/18 11:01 This 53 yrs old Male presents to ER via Ambulatory with complaints of snw Shortness Of Breath, Edema. 11:01 The patient has shortness of breath when he sleeps. Onset: The symptoms/episode snw began/occurred long duration. Duration: The symptoms are chronic, and have existed for years. Associated signs and symptoms: Pertinent positives: edema and shortness of breath. Severity of symptoms: At their worst the symptoms were moderate. The patient has experienced similar episodes in the past, chronically. pt and spouse present to the ED for a/c, food, and naps which are provided and then threaten to marj when chronic problems are not treated in an urgent/emergent manner.. Historical: - Allergies: 09:20 Azithromycin; ss 09:20 Metoprolol Tartrate; ss - Home Meds: 09:20 aspirin 81 mg oral TbEC [Active]; atorvastatin Oral once daily [Active]; isosorbide ss mononitrate 30 mg Oral Tb24 1 tab once daily [Active]; lisinopril 20 mg Oral tab once daily [Active]; - PMHx: 09:20 Angina; COPD; Diabetes - NIDDM; High Cholesterol; Hypertension; Myocardial infarction; ss Sleep Apnea; - Immunization history:: Adult Immunizations up to date. - Social history:: Smoking status: Patient uses tobacco products, smokes one pack cigarettes per day. - Ebola Screening: : Patient denies exposure to infectious person Patient denies travel to an Ebola-affected area in the 21 days before illness onset. ROS: 11:01 Constitutional: Negative for fever, chills, and weight loss, Eyes: Negative for injury, snw pain, redness, and discharge, ENT: Negative for injury, pain, and discharge, Neck: Negative for injury, pain, and swelling, Abdomen/GI: Negative for abdominal pain, nausea, vomiting, diarrhea, and constipation, Back: Negative for injury and pain, : Negative for injury, bleeding, discharge, and swelling, MS/Extremity: Negative for injury and deformity, Skin: Negative for injury, rash, and discoloration, Neuro: Negative for headache, weakness, numbness, tingling, and seizure. 11:01 Cardiovascular: Positive for edema. 11:01 Respiratory: Positive for dyspnea at sleep. Exam: 11:06 Constitutional: This is a well developed, well nourished patient who is awake, alert, snw and in no acute distress. Head/Face: Normocephalic, atraumatic. Eyes: Pupils equal round and reactive to light, extra-ocular motions intact. Lids and lashes normal. Conjunctiva and sclera are non-icteric and not injected. Cornea within normal limits. Periorbital areas with no swelling, redness, or edema. ENT: Nares patent. No nasal discharge, no septal abnormalities noted. Tympanic membranes are normal and external auditory canals are clear. Oropharynx with no redness, swelling, or masses, exudates, or evidence of obstruction, uvula midline. Mucous membranes moist. Neck: Trachea midline, no thyromegaly or masses palpated, and no cervical lymphadenopathy. Supple, full range of motion without nuchal rigidity, or vertebral point tenderness. No Meningismus. Chest/axilla: Normal chest wall appearance and motion. Nontender with no deformity. No lesions are appreciated. Cardiovascular: Regular rate and rhythm with a normal S1 and S2. No gallops, murmurs, or rubs. Normal PMI, no JVD. No pulse deficits. Respiratory: Lungs have equal breath sounds bilaterally, clear to auscultation and percussion. No rales, rhonchi or wheezes noted. No increased work of breathing, no retractions or nasal flaring. Abdomen/GI: Soft, non-tender, with normal bowel sounds. No distension or tympany. No guarding or rebound. No evidence of tenderness throughout. Back: No spinal tenderness. No costovertebral tenderness. Full range of motion. Skin: Warm, dry with normal turgor. Normal color with no rashes, no lesions, and no evidence of cellulitis. Neuro: Awake and alert, GCS 15, oriented to person, place, time, and situation. Cranial nerves II-XII grossly intact. Motor strength 5/5 in all extremities. Sensory grossly intact. Cerebellar exam normal. Normal gait. 11:06 Musculoskeletal/extremity: minimal pedal edema. Vital Signs: 09:25 BP 173 / 95; Pulse 94; Resp 19; Temp 98.9(O); Pulse Ox 95% on R/A; Weight 117.03 kg; dh3 Height 5 ft. 6 in. (167.64 cm); Pain 8/10; 09:46 BP 156 / 78; Pulse 89; Resp 18; Pulse Ox 93% on R/A; ph 10:53 BP 168 / 77; Pulse 77; Resp 18; Pulse Ox 93% on R/A; ph 09:25 Body Mass Index 41.64 (117.03 kg, 167.64 cm) dh3 MDM: 09:39 Patient medically screened. snw 11:08 Data reviewed: vital signs, nurses notes. Data interpreted: Pulse oximetry: on room air snw is 95 %. Interpretation: acceptable. Counseling: I had a detailed discussion with the patient and/or guardian regarding: the historical points, exam findings, and any diagnostic results supporting the discharge/admit diagnosis, radiology results, the need for outpatient follow up, smoking cessation. Special discussion: I have referred the patient to see his PCP for further evaluation of high blood pressure. Based on the history and exam findings, there is no indication for further emergent testing or inpatient evaluation. I discussed with the patient/guardian the need to see the primary care provider for further evaluation of the symptoms. 02/18 09:36 Order name: Chest Pa And Lat (2 Views) XRAY snw 02/18 09:36 Order name: EKG; Complete Time: 09:37 snw 02/18 09:36 Order name: EKG - Nurse/Tech; Complete Time: 09:57 snw Administered Medications: No medications were administered Disposition: 02/18/19 11:08 Discharged to Home. Impression: Nicotine dependence, cigarettes, with other nicotine-induced disorders, Sleep apnea, unspecified, Homelessness. - Condition is Stable. - Discharge Instructions: Steps to Quit Smoking, Smoking Hazards, Tobacco Use Disorder, Stress and Stress Management, Peripheral Edema. - Medication Reconciliation Form, Thank You Letter, Antibiotic Education, Prescription Opioid Use form. - Follow up: Private Physician; When: As needed; Reason: Recheck today's complaints, Continuance of care, Re-evaluation by your physician. Follow up: Emergency Department; When: As needed; Reason: Worsening of condition. Addendum: 02/20/2019 15:18 Co-signature as Attending Physician, Donavon Kaufman MD. g s Signatures: Dispatcher [employer] EDMS Ayleen Galan, ROUTEMAN-C ROUTEMAN-Csnw Lilia Roche, NICCI RN Frida Leyva RN RN Donavon Kaufman MD MD Corrections: (The following items were deleted from the chart) 02/18 11:39 11:08 02/18/2019 11:08 Discharged to Home. Impression: Nicotine dependence, cigarettes, ph with other nicotine-induced disorders; Sleep apnea, unspecified; Homelessness. Condition is Stable. Forms are Medication Reconciliation Form, Thank You Letter, Antibiotic Education, Prescription Opioid Use. Follow up: Private Physician; When: As needed; Reason: Recheck today's complaints, Continuance of care, Re-evaluation by your physician. Follow up: Emergency Department; When: As needed; Reason: Worsening of condition. snw
[2019-02-18 11:51] VITALS: TEMP 98.9
[2019-02-18 11:53] VITALS: O2SAT 93
[2019-02-18 11:55] VITALS: BP 168/77
--- NOTE | 2019-02-18 11:57 | RAD REPORT ---
EXAM DESCRIPTION: Jayda Elizabeth (2 Views)02/18/2019 10:08 am CLINICAL HISTORY: Cough COMPARISON: February 07, 2019 FINDINGS: The lungs appear clear of acute infiltrate. The heart is normal size IMPRESSION: No acute abnormalities displayed
--- NOTE | 2019-02-18 16:56 | EKG ---
Test Date: 2019-02-18 Test Time: 09:48:04 Burr Grinder: LUCIANO MEASUREMENT RESULTS: Intervals: Rate: 80 NJ: 148 QRSD: 106 QT: 362 QTc: 417 [place]: P: 61 NJ: 148 QRS: 65 T: 21 INTERPRETIVE STATEMENTS: Normal sinus rhythm Incomplete left bundle branch block Borderline ECG Compared to ECG 02/11/2019 20:54:43 Left bundle-branch block now present T-wave abnormality no longer present Possible ischemia no longer present Electronically Signed On 02-18-19 16:55:52 CDT by Nazario Anderson
== END 2019-02-18 11:39 | disposition home or self-care (01) ==
LOC: ER 09:11
DX: G47.30 Sleep apnea, unspecified (principal); F17.218 Nicotine dependence, cigarettes, with other nicotine-induced disorders; Z59.0 Homelessness; I10 Essential (primary) hypertension; E11.9 Type 2 diabetes mellitus without complications; E78.00 Pure hypercholesterolemia, unspecified; I25.2 Old myocardial infarction; Z79.82 Long term (current) use of aspirin; Z88.1 Allergy status to other antibiotic agents; Z88.8 Allergy status to other drugs, medicaments and biological substances
CPT/HCPCS: 71046; 93005; 99283

== ENCOUNTER 2019-04-01 13:09 | Emergency (ER) | payer SELFPAY ==
--- NOTE | 2019-04-01 14:32 | RAD REPORT ---
EXAM DESCRIPTION: RAD - Chest Pa And Lat (2 Views) - 04/01/2019 2:25 pm CLINICAL HISTORY: COUGH, chest discomfort COMPARISON: February 18 TECHNIQUE: PA and lateral views of the chest were obtained. FINDINGS: The lungs are clear of focal mass or consolidation baseline pattern is not substantially d ifferent. Heart size is normal and central vasculature is within normal limits. No pleural effusio n or pneumothorax seen. No acute bony finding noted. No aortic abnormality. IMPRESSION: No acute cardiopulmonary process. No significant interval change.
--- NOTE | 2019-04-01 15:28 | ER ---
Nurse's Notes [facility] Name: Juan Miguel Langston Age: 53 yrs Sex: Male : 1965 Arrival Date: 04/01/2019 Time: 13:12 Bed 28 Private MD: Diagnosis: Acute upper respiratory infection, unspecified Presentation: 04/01 13:13 Presenting complaint: Patient states: chest congestion, headache, dyspnea started last sv night. Transition of care: patient was not received from another setting of care. Onset of symptoms was March 31, 2019. Risk Assessment: Do you want to hurt yourself or someone else? Patient reports no desire to harm self or others. Care prior to arrival: None. 13:13 Method Of Arrival: Ambulatory sv 13:13 Acuity: DESTINY 3 sv 14:15 Initial Sepsis Screen: Does the patient meet any 2 criteria? No. Patient's initial tr5 sepsis screen is negative. Does the patient have a suspected source of infection? No. Patient's initial sepsis screen is negative. Triage Assessment: 13:13 Headache History: The patient has had previous headaches and this one is similar to previous episodes. General: Appears in no apparent distress. uncomfortable, Behavior is calm, cooperative, appropriate for age. Pain: Complains of pain in face. Neuro: Level of Consciousness is awake, alert, obeys commands, Oriented to person, place, time, situation, Gait is steady. Cardiovascular: Reports chest congestion. Respiratory: Reports shortness of breath cough that is persistent Respiratory effort is even, unlabored, Respiratory pattern is regular, symmetrical. Musculoskeletal: Range of motion: intact in all extremities. 14:15 Pain: Pain currently is 4 out of 10 on a pain scale. Pain began gradually, Also tr5 complains of. Historical: - Allergies: 13:14 Azithromycin; sv 13:14 Metoprolol Tartrate; sv - PMHx: 13:14 Angina; COPD; Diabetes - NIDDM; High Cholesterol; Hypertension; Myocardial infarction; sv Sleep Apnea; - Immunization history:: Adult Immunizations up to date. - Social history:: Smoking status: Patient uses tobacco products, smokes one pack cigarettes per day. - Ebola Screening: : No symptoms or risks identified at this time. Screenin:15 Abuse screen: Denies threats or abuse. Nutritional screening: No deficits noted. tr5 Tuberculosis screening: No symptoms or risk factors identified. Fall Risk None identified. Assessment: 14:15 General: Appears in no apparent distress. Behavior is calm, cooperative, appropriate tr5 for age. Pain: Complains of pain in face Pain does not radiate. Neuro: Level of Consciousness is awake, alert, obeys commands, Oriented to person, place, time. Cardiovascular: Heart tones present Capillary refill < 3 seconds Pulses are all present. Edema is absent. Respiratory: Airway Respiratory effort is even, unlabored, Respiratory pattern is regular, symmetrical. GI: No signs and/or symptoms were reported involving the gastrointestinal system. : No signs and/or symptoms were reported regarding the genitourinary system. EENT: No signs and/or symptoms were reported regarding the EENT system. Derm: No signs and/or symptoms reported regarding the dermatologic system. Musculoskeletal: No signs and/or symptoms reported regarding the musculoskeletal system. Vital Signs: 13:14 BP 181 / 75; Pulse 102; Resp 22; Temp 98.8; Pulse Ox 96% ; Weight 116.12 kg; Height 5 sv ft. 6 in. (167.64 cm); 13:14 Body Mass Index 41.32 (116.12 kg, 167.64 cm) sv ED Course: 13:12 Patient arrived in ED. am2 13:13 Triage completed. sv 13:14 Arm band placed on. sv 13:15 Flu and/or RSV swab sent to lab. Strep swab sent to lab. jp3 14:15 Bed in low position. Call light in reach. Side rails up X 1. tr5 14:19 Sidney Muniz, RN is Primary Nurse. tr5 14:24 Chest Pa And Lat (2 Views) XRAY In Process Unspecified. EDMS 14:33 Oliver Man, ASIYA is PHCP. pm1 14:33 Lenard Rosario MD is Attending Physician. pm1 15:10 Throat Culture Sent. jp3 16:06 No provider procedures requiring assistance completed. Patient did not have IV access tr5 during this emergency room visit. Administered Medications: 15:48 Drug: Tussionex Pennkinetic ER 5 ml Route: PO; tr5 20:39 Follow up: Response: No adverse reaction tr5 Outcome: 15:27 Discharge ordered by . pm1 16:06 Discharged to home ambulatory. tr5 16:06 Condition: stable 16:06 Discharge instructions given to patient, Instructed on discharge instructions, follow up and referral plans. medication usage, Demonstrated understanding of instructions, follow-up care, medications, Prescriptions given X 1. 16:07 Patient left the ED. tr5 Signatures: Dispatcher [employer] Nilda Smyth RN RN sv Oliver Man NP JEWEL HOLE [employer]NERER pm1 Thu [place] am2 Baltazar Richmond jp3 Sidney Muniz RN RN tr5 Corrections: (The following items were deleted from the chart) 13:15 13:14 Temp 98.8F; 116.12 kg; Height 5 ft. 6 in.; BMI: 41.3; sv sv 13:16 13:14 Pulse 102bpm; Resp 22bpm; Temp 98.8F; 116.12 kg; Height 5 ft. 6 in.; BMI: 41.3; svsv
--- NOTE | 2019-04-01 15:28 | EDPHYS ---
Physician Documentation [facility] Name: Juan Miguel Langston Age: 53 yrs Sex: Male : 1965 Arrival Date: 04/01/2019 Time: 13:12 Bed 28 Private MD: ED Physician Lenard Rosario HPI: 04/01 15:21 This 53 yrs old Male presents to ER via Ambulatory with complaints of Chest pm1 Congestion, Headache. 15:21 The patient or guardian reports cough, with no sputum, sinus and chest congestion. pm1 Onset: The symptoms/episode began/occurred last night. Severity of symptoms: in the emergency department the symptoms are unchanged. Modifying factors: The symptoms are alleviated by nothing, the symptoms are aggravated by nothing. Associated signs and symptoms: Pertinent negatives: chest pain, fever, rhinorrhea, sore throat, vomiting. Historical: - Allergies: 13:14 Azithromycin; sv 13:14 Metoprolol Tartrate; sv - PMHx: 13:14 Angina; COPD; Diabetes - NIDDM; High Cholesterol; Hypertension; Myocardial infarction; sv Sleep Apnea; - Immunization history:: Adult Immunizations up to date. - Social history:: Smoking status: Patient uses tobacco products, smokes one pack cigarettes per day. - Ebola Screening: : No symptoms or risks identified at this time. ROS: 15:21 Constitutional: Negative for fever, chills, and weight loss, Eyes: Negative for injury, pm1 pain, redness, and discharge, Neck: Negative for injury, pain, and swelling, Cardiovascular: Negative for chest pain, palpitations, and edema. 15:21 Abdomen/GI: Negative for abdominal pain, nausea, vomiting, diarrhea, and constipation, Back: Negative for injury and pain, : Negative for injury, bleeding, discharge, and swelling, MS/Extremity: Negative for injury and deformity, Skin: Negative for injury, rash, and discoloration, Neuro: Negative for headache, weakness, numbness, tingling, and seizure. 15:21 ENT: Positive for sinus congestion, Negative for drainage from ear(s), ear pain, sore throat. 15:21 Respiratory: Positive for cough, with no reported sputum, Negative for shortness of breath, sputum production, wheezing. Exam: 15:21 Constitutional: This is a well developed, well nourished patient who is awake, alert, pm1 and in no acute distress. Head/Face: Normocephalic, atraumatic. Eyes: Pupils equal round and reactive to light, extra-ocular motions intact. Lids and lashes normal. Conjunctiva and sclera are non-icteric and not injected. Cornea within normal limits. Periorbital areas with no swelling, redness, or edema. ENT: Nares patent. No nasal discharge, no septal abnormalities noted. Tympanic membranes are normal and external auditory canals are clear. Oropharynx with no redness, swelling, or masses, exudates, or evidence of obstruction, uvula midline. Mucous membranes moist. Neck: Trachea midline, no thyromegaly or masses palpated, and no cervical lymphadenopathy. Supple, full range of motion without nuchal rigidity, or vertebral point tenderness. No Meningismus. Chest/axilla: Normal chest wall appearance and motion. Nontender with no deformity. No lesions are appreciated. Cardiovascular: Regular rate and rhythm with a normal S1 and S2. No gallops, murmurs, or rubs. Normal PMI, no JVD. No pulse deficits. Respiratory: Lungs have equal breath sounds bilaterally, clear to auscultation and percussion. No rales, rhonchi or wheezes noted. No increased work of breathing, no retractions or nasal flaring. Abdomen/GI: Soft, non-tender, with normal bowel sounds. No distension or tympany. No guarding or rebound. No evidence of tenderness throughout. Back: No spinal tenderness. No costovertebral tenderness. Full range of motion. Skin: Warm, dry with normal turgor. Normal color with no rashes, no lesions, and no evidence of cellulitis. MS/ Extremity: Pulses equal, no cyanosis. Neurovascular intact. Full, normal range of motion. 15:21 Neuro: Orientation: is normal, Motor: is normal, moves all fours. Vital Signs: 13:14 BP 181 / 75; Pulse 102; Resp 22; Temp 98.8; Pulse Ox 96% ; Weight 116.12 kg; Height 5 sv ft. 6 in. (167.64 cm); 13:14 Body Mass Index 41.32 (116.12 kg, 167.64 cm) sv MDM: 14:[address] [facility] 15:26 Data reviewed: vital signs. Data interpreted: Pulse oximetry: on room air is 96 %. pm1 Interpretation: normal. Counseling: I had a detailed discussion with the patient and/or guardian regarding: the historical points, exam findings, and any diagnostic results supporting the discharge/admit diagnosis, lab results, radiology results, the need for outpatient follow up, to return to the emergency department if symptoms worsen or persist or if there are any questions or concerns that arise at home. 04/01 13:17 Order name: Flu; Complete Time: 14:36 sv 04/01 13:17 Order name: Strep; Complete Time: 14:36 sv 04/01 13:17 Order name: Chest Pa And Lat (2 Views) XRAY; Complete Time: 14:36 sv 04/01 14:09 Order name: Throat Culture EDMS Administered Medications: 15:48 Drug: Tussionex Pennkinetic ER 5 ml Route: PO; tr5 20:39 Follow up: Response: No adverse reaction tr5 Disposition: 04/02 08:07 I agree with the assessment and plan of care. [facility] Disposition: 04/01/19 15:27 Discharged to Home. Impression: Acute upper respiratory infection, unspecified. - Condition is Stable. - Discharge Instructions: Upper Respiratory Infection, Adult, Viral Respiratory Infection. - Prescriptions for Guaifenesin AC 10- 100 mg/5 mL Oral Liquid - take 10 milliliter by ORAL route every 4 hours As needed; 240 milliliter. - Medication Reconciliation Form, Thank You Letter, Antibiotic Education, Prescription Opioid Use form. - Follow up: Emergency Department; When: As needed; Reason: Worsening of condition. Follow up: Private Physician; When: 2 - 3 days; Reason: Recheck today's complaints, Continuance of care, Re-evaluation by your physician. - Problem is new. - Symptoms have improved. Signatures: Dispatcher [employer] EDNilda Nguyen RN RN Lenard Ruiz MD MD cha Marinas, Patrick, ASIYA OFFICE ADMIN pm1 Sidney Muniz RN RN tr5 Corrections: (The following items were deleted from the chart) 04/01 16:07 15:27 04/01/2019 15:27 Discharged to Home. Impression: Acute upper respiratory tr5 infection, unspecified. Condition is Stable. Forms are Medication Reconciliation Form, Thank You Letter, Antibiotic Education, Prescription Opioid Use. Follow up: Emergency Department; When: As needed; Reason: Worsening of condition. Follow up: Private Physician; When: 2 - 3 days; Reason: Recheck today's complaints, Continuance of care, Re-evaluation by your physician. Problem is new. Symptoms have improved. pm1
[2019-04-01] MEDS ORDERED: HYDROCODONE/CHLORPHEN 5 ML/OSYR ONE (15:47)
[2019-04-01 16:15] VITALS: BP 181/75; TEMP 98.8; O2SAT 96
== END 2019-04-01 16:07 | disposition home or self-care (01) ==
LOC: ER 13:09
DX: J06.9 Acute upper respiratory infection, unspecified (principal); R05 Cough; I10 Essential (primary) hypertension; F17.210 Nicotine dependence, cigarettes, uncomplicated; Z88.1 Allergy status to other antibiotic agents; Z88.8 Allergy status to other drugs, medicaments and biological substances
CPT/HCPCS: 71046; 87070; 87081; 87804; 99284

== ENCOUNTER 2019-04-28 16:31 | Inpatient (IN) | payer SELFPAY ==
[2019-04-28 17:27] LABS: Absolute Lymphocytes (CBC) 2.1 K/uL (0.7-4.9); MPV 9.4 fL (7.6-11.3); RBC Red Blood Cell Count 4.97 M/uL (4.33-5.43)
[2019-04-28 17:28] LABS: Protime INR 1.04
--- NOTE | 2019-04-28 17:32 | RAD REPORT ---
EXAM DESCRIPTION: CT - Head Brain Wo Cont - 04/28/2019 5:16 pm CLINICAL HISTORY: Headache COMPARISON: August 2018 TECHNIQUE: Computed axial tomography of the head was obtained. IV contrast was not requested. All CT scans are performed using dose optimization technique as appropriate and may include automated exposure control or mA/KV adjustment according to patient size. FINDINGS: An intracranial bleed is not seen . The ventricles are normal in caliber. No extra-axial fluid collection is noted. Mild to moderate low-density areas within periventricular, deep and subcortical white matter likely r epresent ischemic changes secondary to small vessel disease. Moderate to marked opacification the mastoids without significant change from August 2018 IMPRESSION: No acute intracranial abnormality is seen. If patient's symptoms persist MRI of the bra in would be recommended. Moderate to marked opacification of mastoids may indicate mastoiditis
[2019-04-28] MEDS: METOPROLOL TAR 50 MG TAB PO SCH ×2 (18:00→21:00)
[2019-04-28 18:01] LABS: ALT/SGPT 105 U/L (12-78); AST/SGOT 36 U/L (15-37); Albumin 3.5 g/dL (3.4-5.0); Alkaline Phosphatase 55 U/L (45-117); BUN Blood Urea Nitrogen 8 mg/dL (7-18); Bicarbonate 28 mmol/L (21-32); Bilirubin Direct < 0.1 mg/dL (0-0.2); Bilirubin Total 0.3 mg/dL (0.2-1.0); Glucose Level 129 mg/dL (74-106); Magnesium 1.9 mg/dL (1.8-2.4); NT PRO-BNP 69 pg/mL (<125); Potassium 3.6 mmol/L (3.5-5.1); Protein, Total 7.1 g/dL (6.4-8.2); Sodium Level 137 mmol/L (136-145); Troponin (Emerg Dept Use Only) 0.02 ng/mL (0.0-0.045)
--- NOTE | 2019-04-28 18:39 | RAD REPORT ---
EXAM DESCRIPTION: Jayda Single View04/28/2019 5:33 pm CLINICAL HISTORY: Chest pain COMPARISON: Mar 2019 FINDINGS: The lungs appear clear of acute infiltrate. The heart is normal size IMPRESSION: No acute abnormalities displayed
[2019-04-28] MEDS ORDERED: CLINDAMYCIN HCL 150 MG CAP ONE (19:11)
[2019-04-28] MEDS ORDERED: levoFLOXacin 500 MG TAB ONE (19:11)
[2019-04-28] MEDS ORDERED: ASPIRIN 81 MG CHEWABLE TABLET ONE (19:52)
--- NOTE | 2019-04-28 19:53 | EDPHYS ---
Physician Documentation [facility] Name: Juan Miguel Langston Age: 53 yrs Sex: Male : 1965 Arrival Date: 04/28/2019 Time: 16:33 Bed 20 Private MD: ED Physician Nate Donald HPI: 04/28 17:17 This 53 yrs old Male presents to ER via Ambulatory with complaints of Chest kb Pain, Shortness Of Breath, High Blood Pressure. 17:17 The patient or guardian reports chest pain that is located primarily in the chest kb diffusely. Onset: just prior to arrival. The pain does not radiate. Associated signs and symptoms: Pertinent positives: shortness of breath, headache, high blood pressure. The chest pain is described as aching. Duration: The patient or guardian reports a single episode. Modifying factors: The symptoms are alleviated by nothing. the symptoms are aggravated by nothing. Severity of pain: At its worst the pain was moderate in the emergency department the pain is unchanged. The patient has experienced similar episodes in the past. The patient has not recently seen a physician. Historical: - Allergies: 16:41 Azithromycin; sv 16:41 Metoprolol Tartrate; sv - Home Meds: 16:41 aspirin 81 mg Oral TbEC [Active]; atorvastatin Oral once daily [Active]; isosorbide sv mononitrate 30 mg Oral Tb24 1 tab once daily [Active]; lisinopril 20 mg Oral tab once daily [Active]; Metformin Oral [Active]; - PMHx: 16:41 Angina; COPD; Diabetes - NIDDM; High Cholesterol; Hypertension; Myocardial infarction; sv Sleep Apnea; - Immunization history:: Adult Immunizations up to date. - Social history:: Smoking status: Patient uses tobacco products, smokes one-half pack cigarettes per day. - Ebola Screening: : Patient negative for fever greater than or equal to 101.5 degrees Fahrenheit, and additional compatible Ebola Virus Disease symptoms Patient denies exposure to infectious person Patient denies travel to an Ebola-affected area in the 21 days before illness onset No symptoms or risks identified at this time. ROS: 17:16 Constitutional: Negative for fever, chills, and weight loss, ENT: Negative for injury, kb pain, and discharge, Neck: Negative for injury, pain, and swelling, Abdomen/GI: Negative for abdominal pain, nausea, vomiting, diarrhea, and constipation, Back: Negative for injury and pain, : Negative for injury, bleeding, discharge, and swelling, MS/Extremity: Negative for injury and deformity, Skin: Negative for injury, rash, and discoloration. 17:16 Cardiovascular: Positive for chest pain, Negative for edema, orthopnea, palpitations, paroxysmal nocturnal dyspnea. 17:16 Respiratory: Positive for dyspnea on exertion, shortness of breath, Negative for cough, hemoptysis, orthopnea, pleurisy, sputum production, wheezing. 17:16 Neuro: Positive for headache. Exam: 17:16 Constitutional: This is a well developed, well nourished patient who is awake, alert, kb and in no acute distress. Head/Face: Normocephalic, atraumatic. ENT: Nares patent. No nasal discharge, no septal abnormalities noted. Tympanic membranes are normal and external auditory canals are clear. Oropharynx with no redness, swelling, or masses, exudates, or evidence of obstruction, uvula midline. Mucous membranes moist. Neck: Trachea midline, no thyromegaly or masses palpated, and no cervical lymphadenopathy. Supple, full range of motion without nuchal rigidity, or vertebral point tenderness. No Meningismus. Chest/axilla: Normal chest wall appearance and motion. Nontender with no deformity. No lesions are appreciated. Cardiovascular: Regular rate and rhythm with a normal S1 and S2. No gallops, murmurs, or rubs. Normal PMI, no JVD. No pulse deficits. Respiratory: Lungs have equal breath sounds bilaterally, clear to auscultation and percussion. No rales, rhonchi or wheezes noted. No increased work of breathing, no retractions or nasal flaring. Abdomen/GI: Soft, non-tender, with normal bowel sounds. No distension or tympany. No guarding or rebound. No evidence of tenderness throughout. Skin: Warm, dry with normal turgor. Normal color with no rashes, no lesions, and no evidence of cellulitis. MS/ Extremity: Pulses equal, no cyanosis. Neurovascular intact. Full, normal range of motion. Neuro: Awake and alert, GCS 15, oriented to person, place, time, and situation. Cranial nerves II-XII grossly intact. Motor strength 5/5 in all extremities. Sensory grossly intact. Cerebellar exam normal. Normal gait. Vital Signs: 16:41 BP 166 / 78; Pulse 102; Resp 26; Pulse Ox 95% ; Weight 116.12 kg; Height 5 ft. 6 in. sv (167.64 cm); 17:30 BP 160 / 66; Pulse 95; Resp 18 S; Pulse Ox 96% on R/A; ca1 18:30 BP 143 / 52; Pulse 81; Resp 16 S; Pulse Ox 95% on R/A; ca1 19:33 BP 146 / 89; Pulse 92; Resp 19 S; Pulse Ox 96% on R/A; ca1 20:30 BP 160 / 91; Pulse 82; Resp 18 S; Pulse Ox 97% on R/A; cc3 21:34 BP 153 / 80; Pulse 69; Resp 14 S; Temp 99(O); Pulse Ox 96% on R/A; cc3 22:00 BP 159 / 67; Pulse 72; Resp 18 S; Pulse Ox 96% on R/A; cc3 16:41 Body Mass Index 41.32 (116.12 kg, 167.64 cm) sv MDM: 16:45 Patient medically screened. kb 17:15 Data reviewed: vital signs, nurses notes. Data interpreted: Pulse oximetry: on room air kb is 95 %. Interpretation: normal. 19:51 The patient was given aspirin in the Emergency Department. Counseling: I had a detailed kb discussion with the patient and/or guardian regarding: the historical points, exam findings, and any diagnostic results supporting the discharge/admit diagnosis, lab results, radiology results, the need for further work-up and treatment in the hospital. Physician consultation: Jonathan Argueta MD was contacted at 19:52, regarding admission, to the telemetry unit. patient's condition, and will see patient shortly. 04/28 16:45 Order name: Basic Metabolic Panel; Complete Time: 18:08 kb 04/28 16:45 Order name: CBC with Diff; Complete Time: 17:28 kb 04/28 16:45 Order name: LFT's; Complete Time: 18:08 kb 04/28 16:45 Order name: Magnesium; Complete Time: 18:08 kb 04/28 16:45 Order name: NT PRO-BNP; Complete Time: 18:08 kb 04/28 16:45 Order name: PT-INR; Complete Time: 17:29 kb 04/28 16:45 Order name: Troponin (emerg Dept Use Only); Complete Time: 18:08 kb 04/28 18:58 Order name: Troponin (emerg Dept Use Only); Complete Time: 19:44 kb 04/28 21:01 Order name: Basic Metabolic Panel [facility] 04/28 21:02 Order name: Basic Metabolic Panel; Complete Time: 07:02 EDMS 04/28 21:02 Order name: CBC with Automated Diff EDMS 04/28 21:02 Order name: CBC with Automated Diff; Complete Time: 07:02 EDMS 04/28 21:02 Order name: Lipid Profile [facility] 04/28 21:02 Order name: Lipid Profile; Complete Time: 07:02 EDMS 04/28 16:45 Order name: XRAY Chest (1 view); Complete Time: 18:44 kb 04/28 16:45 Order name: EKG; Complete Time: 16:46 kb 04/28 16:45 Order name: Cardiac monitoring; Complete Time: 17:00 kb 04/28 16:45 Order name: EKG - Nurse/Tech; Complete Time: 17:00 kb 04/28 16:45 Order name: IV Saline Lock; Complete Time: 17:18 kb 04/28 16:52 Order name: CT Head Brain wo Cont; Complete Time: 17:36 kb 04/28 18:58 Order name: EKG; Complete Time: 18:58 kb 04/28 21:01 Order name: CONS Physician Consult [facility] 04/28 21:01 Order name: EKG Electrocardiogram [facility] 04/28 21:01 Order name: EKG Electrocardiogram [facility] 04/28 21:02 Order name: Troponin I [facility] 04/28 21:02 Order name: Troponin I; Complete Time: 07:02 [facility] 04/28 21:02 Order name: Troponin I [facility] 04/28 16:45 Order name: Labs collected and sent; Complete Time: 17:18 kb 04/28 16:45 Order name: O2 Per Protocol; Complete Time: 17:00 kb 04/28 16:45 Order name: O2 Sat Monitoring; Complete Time: 17:00 kb 04/28 18:58 Order name: EKG - Nurse/Tech; Complete Time: 19:15 kb Administered Medications: 19:10 Drug: Clindamycin 300 mg Route: PO; ca1 19:49 Follow up: Response: No adverse reaction ca1 19:20 Drug: LevaQUIN 500 mg Route: PO; ca1 19:49 Follow up: Response: No adverse reaction ca1 19:55 Drug: Aspirin Chewable Tablet 324 mg Route: PO; ca1 20:24 Follow up: Response: No adverse reaction ca1 Disposition: 04/29 07:02 Co-signature as Attending Physician, Nate Donald MD. rn Disposition: 04/28/19 19:52 Hospitalization ordered by Jonathan Argueta for Observation. Preliminary diagnosis are Chest pain, unspecified, Mastoiditis and related conditions. - Bed requested for Telemetry/MedSurg (observation). - Status is Observation. cc3 - Condition is Stable. - Problem is new. - Symptoms are unchanged. UTI on Admission? No Signatures: Dispatcher [employer] EDLove Daily, JOSEFINA-Jamilah ROCHA-Nilda Simpson, RN RN Nate Coombs MD MD rn Garcia, Cindy, RN RN cg Cordel, Charlene cc3 Khadijah Miranda RN RN ca1 Corrections: (The following items were deleted from the chart) 04/28 19:52 19:25 Counseling: I had a detailed discussion with the patient and/or guardian regarding: the historical points, exam findings, and any diagnostic results supporting the discharge/admit diagnosis, lab results, radiology results, the need for outpatient follow up, a family practitioner, to return to the emergency department if symptoms worsen or persist or if there are any questions or concerns that arise at home, 21:40 19:52 Hospitalization Ordered by Jonathan Argueta MD for Observation. Preliminary cg diagnosis is Chest pain, unspecified; Mastoiditis and related conditions. Bed requested for Telemetry/MedSurg (observation). Status is Observation. Condition is Stable. Problem is new. Symptoms are unchanged. UTI on Admission? No. kb 22:18 21:40 04/28/2019 19:52 Hospitalization Ordered by Jonathan Argueta MD for Observation. cc3 Preliminary diagnosis is Chest pain, unspecified; Mastoiditis and related conditions. Bed requested for Telemetry/MedSurg (observation). Status is Observation. Condition is Stable. Problem is new. Symptoms are unchanged. UTI on Admission? No. cg
--- NOTE | 2019-04-28 19:53 | ER ---
Nurse's Notes [facility] Name: Juan Miguel Langston Age: 53 yrs Sex: Male : 1965 Arrival Date: 04/28/2019 Time: 16:33 Bed 20 Private MD: Diagnosis: Chest pain, unspecified;Mastoiditis and related conditions Presentation: 04/28 16:36 Presenting complaint: Patient states: chest pain, SOB, HTN, head pain that is ongoing. sv Transition of care: patient was not received from another setting of care. Onset of symptoms is unknown. Risk Assessment: Do you want to hurt yourself or someone else? Patient reports no desire to harm self or others. Care prior to arrival: None. 16:36 Method Of Arrival: Ambulatory sv 16:36 Acuity: DESTINY 2 sv 16:45 Initial Sepsis Screen: Does the patient meet any 2 criteria? No. Patient's initial ca1 sepsis screen is negative. Does the patient have a suspected source of infection? No. Patient's initial sepsis screen is negative. Historical: - Allergies: 16:41 Azithromycin; sv 16:41 Metoprolol Tartrate; sv - Home Meds: 16:41 aspirin 81 mg Oral TbEC [Active]; atorvastatin Oral once daily [Active]; isosorbide sv mononitrate 30 mg Oral Tb24 1 tab once daily [Active]; lisinopril 20 mg Oral tab once daily [Active]; Metformin Oral [Active]; - PMHx: 16:41 Angina; COPD; Diabetes - NIDDM; High Cholesterol; Hypertension; Myocardial infarction; sv Sleep Apnea; - Immunization history:: Adult Immunizations up to date. - Social history:: Smoking status: Patient uses tobacco products, smokes one-half pack cigarettes per day. - Ebola Screening: : Patient negative for fever greater than or equal to 101.5 degrees Fahrenheit, and additional compatible Ebola Virus Disease symptoms Patient denies exposure to infectious person Patient denies travel to an Ebola-affected area in the 21 days before illness onset No symptoms or risks identified at this time. Screenin:45 Abuse screen: Denies threats or abuse. Denies injuries from another. Nutritional ca1 screening: No deficits noted. Tuberculosis screening: No symptoms or risk factors identified. Fall Risk IV access (20 points). Assessment: 16:45 General: Appears in no apparent distress. distressed, comfortable, Behavior is calm, ca1 cooperative, appropriate for age. Pain: Complains of pain in chest Pain radiates to left arm and neck Pain currently is 10 out of 10 on a pain scale. Quality of pain is described as heavy, Pain began 30 min ago. Neuro: Level of Consciousness is awake, alert, obeys commands, Oriented to person, place, time, situation, Appropriate for age. Cardiovascular: Heart tones S1 S2 present Capillary refill < 3 seconds Patient's skin is warm and dry. Rhythm is sinus rhythm. Respiratory: Airway is patent Respiratory effort is even, unlabored, Respiratory pattern is regular, symmetrical, Breath sounds are clear bilaterally. GI: Abdomen is round non-distended, Bowel sounds present X 4 quads. Abd is soft and non tender X 4 quads. : No deficits noted. No signs and/or symptoms were reported regarding the genitourinary system. EENT: No deficits noted. No signs and/or symptoms were reported regarding the EENT system. Derm: Skin is intact, is healthy with good turgor, Skin is pink, warm \T\ dry. Musculoskeletal: Circulation, motion, and sensation intact. Capillary refill < 3 seconds, Range of motion: intact in all extremities. 17:40 Reassessment: Patient appears in no apparent distress at this time. Patient and/or ca1 family updated on plan of care and expected duration. Pain level reassessed. Patient is alert, oriented x 3, equal unlabored respirations, skin warm/dry/pink. 18:30 Reassessment: Patient appears in no apparent distress at this time. Patient and/or ca1 family updated on plan of care and expected duration. Pain level reassessed. Patient is alert, oriented x 3, equal unlabored respirations, skin warm/dry/pink. 19:28 Reassessment: Patient appears in no apparent distress at this time. Patient and/or ca1 family updated on plan of care and expected duration. Pain level reassessed. Patient is alert, oriented x 3, equal unlabored respirations, skin warm/dry/pink. 20:30 Reassessment: Patient appears in no apparent distress at this time. Patient and/or cc3 family updated on plan of care and expected duration. Pain level reassessed. Patient is alert, oriented x 3, equal unlabored respirations, skin warm/dry/pink. 20:30 General: Appears in no apparent distress. comfortable, Behavior is calm, cooperative, cc3 appropriate for age. Pain: Complains of pain in chest Pain does not radiate. Pain currently is 5 out of 10 on a pain scale. Quality of pain is described as heavy. Neuro: Level of Consciousness is awake, alert, obeys commands, Oriented to person, place, time, situation, Appropriate for age. Cardiovascular: Heart tones S1 S2 present Capillary refill < 3 seconds in bilateral fingers Patient's skin is warm and dry. Rhythm is sinus rhythm. Respiratory: Airway is patent Respiratory effort is even, unlabored, Respiratory pattern is regular, symmetrical. GI: Abdomen is round obese, Bowel sounds present X 4 quads. Abd is soft and non tender X 4 quads. : No signs and/or symptoms were reported regarding the genitourinary system. EENT: No signs and/or symptoms were reported regarding the EENT system. Derm: Skin is intact, is healthy with good turgor, Skin is pink, warm \T\ dry. normal. Musculoskeletal: Circulation, motion, and sensation intact. Range of motion: intact in all extremities. 21:37 Reassessment: Patient appears in no apparent distress at this time. Patient and/or cc3 family updated on plan of care and expected duration. Pain level reassessed. Patient is alert, oriented x 3, equal unlabored respirations, skin warm/dry/pink. 21:57 Reassessment: Room available in room 407, report called and handed over to NICCI Burr for continuity of care and management. 22:10 Reassessment: Patient appears in no apparent distress at this time. Patient and/or cc3 family updated on plan of care and expected duration. Pain level reassessed. Patient is alert, oriented x 3, equal unlabored respirations, skin warm/dry/pink. Patient left ER for admission vitally stable by wheelchair escorted by NICCI Cheatham. No valuables left in the patient's room. Patient states feeling better. Vital Signs: 16:41 BP 166 / 78; Pulse 102; Resp 26; Pulse Ox 95% ; Weight 116.12 kg; Height 5 ft. 6 in. sv (167.64 cm); 17:30 BP 160 / 66; Pulse 95; Resp 18 S; Pulse Ox 96% on R/A; ca1 18:30 BP 143 / 52; Pulse 81; Resp 16 S; Pulse Ox 95% on R/A; ca1 19:33 BP 146 / 89; Pulse 92; Resp 19 S; Pulse Ox 96% on R/A; ca1 20:30 BP 160 / 91; Pulse 82; Resp 18 S; Pulse Ox 97% on R/A; cc3 21:34 BP 153 / 80; Pulse 69; Resp 14 S; Temp 99(O); Pulse Ox 96% on R/A; cc3 22:00 BP 159 / 67; Pulse 72; Resp 18 S; Pulse Ox 96% on R/A; cc3 16:41 Body Mass Index 41.32 (116.12 kg, 167.64 cm) sv ED Course: 16:33 Patient arrived in ED. rg4 16:39 Ayleen Galan FNP-C is PHCP. snw 16:39 Nate Donald MD is Attending Physician. snw 16:40 Triage completed. sv 16:41 Arm band placed on. sv 16:43 Khadijah Miranda, NICCI is Primary Nurse. ca1 16:45 Love Martinez FNP-C is PHCP. kb 16:45 Nate Donald MD is Attending Physician. kb 16:45 Patient has correct armband on for positive identification. Placed in gown. Bed in low ca1 position. Call light in reach. Side rails up X 1. bunch maker on. Pulse ox on. NIBP on. Warm blanket given. 16:45 No provider procedures requiring assistance completed. Patient maintains SpO2 ca1 saturation greater than 95% on room air. 17:15 CT completed. Patient tolerated procedure well. Patient moved back from CT. mw3 17:16 CT Head Brain wo Cont In Process Unspecified. EDMS 17:17 Missed attempt(s): 20 gauge in right antecubital area. lt1 17:17 Initial lab(s) drawn, by me, sent to lab. EKG done, by ED staff. Inserted saline lock: lt1 22 gauge in right hand, using aseptic technique. 17:34 XRAY Chest (1 view) In Process Unspecified. EDMS 19:52 Jonathan Argueta MD is Hospitalizing Provider. kb 21:57 Patient admitted, IV remains in place. cc3 Administered Medications: 19:10 Drug: Clindamycin 300 mg Route: PO; ca1 19:49 Follow up: Response: No adverse reaction ca1 19:20 Drug: LevaQUIN 500 mg Route: PO; ca1 19:49 Follow up: Response: No adverse reaction ca1 19:55 Drug: Aspirin Chewable Tablet 324 mg Route: PO; ca1 20:24 Follow up: Response: No adverse reaction ca1 Outcome: 19:52 Decision to Hospitalize by Provider. kb 21:57 Admitted to Tele accompanied by tech, family with patient, via stretcher, room 407, cc3 with chart, Report called to NICCI Burr 21:57 Condition: stable 21:57 Instructed on the need for admit, Demonstrated understanding of instructions. 22:18 Patient left the ED. cc3 Signatures: Dispatcher [employer] EDMS Love Martinez, [employer]PER[employer]OR [employer]-C [employer]OR [employer]-Nilda Simpson RN RN sv Ayleen Galan, SUPERVISOR [employer]-C SUPERVISOR [employer]-Ferniew Kathya Childers rg4 Brianna Sahu mw3 Darlene Flores cc3 Khadijah Miranda RN RN ca1 Bobbi, Genoveva lt1 Corrections: (The following items were deleted from the chart) 16: 07:36 Presenting complaint: Patient states: chest pain, SOB, HTN, head pain that is sv ongoing. 16: 07:36 Transition of care: patient was not received from another setting of care. [facility] 07:36 Onset of symptoms is unknown. [facility] : 07:36 Risk Assessment: Do you want to hurt yourself or someone else? Patient reports no sv desire to harm self or others. 07:36 Care prior to arrival: None. [facility] 07:36 Method Of Arrival: Ambulatory [facility] 16: 07:36 Acuity: DESTINY 2 sv
[2019-04-28] MEDS ORDERED: ALPRAZOLAM 0.25 MG TABLET PO PRN (20:57)
[2019-04-28] MEDS ORDERED: MORPHINE 4 MG/ML SYR IV PRN (20:57)
[2019-04-28] MEDS ORDERED: ACETAMINOPHEN 500 MG TAB PO PRN (20:57)
[2019-04-28] MEDS ORDERED: ALBUTEROL INHALER 60 PUFF/8 GM IH PRN (21:00)
[2019-04-28] MEDS ORDERED: NITROGLYCERIN 0.4 MG/TAB SL PRN (21:00)
[2019-04-28] MEDS: ATORVASTATIN 20 MG TAB PO SCH (22:43)
[2019-04-29 06:29] LABS: Absolute Lymphocytes (CBC) 1.9 K/uL (0.7-4.9); Basophils % 0.9 % (0-1.3); Hematocrit 44.2 % (39.6-49.0); Lymphocytes % 24.5 % (15.3-44.8); MPV 9.7 fL (7.6-11.3); RBC Red Blood Cell Count 4.95 M/uL (4.33-5.43)
[2019-04-29] MEDS ORDERED: HEPARIN 10,000 UNIT/10 ML VIAL IV PRN (06:40)
[2019-04-29] MEDS ORDERED: HEPARIN 5000 UNIT/ML 1 ML VIAL IV ONE (06:40)
[2019-04-29 06:41] LABS: BUN Blood Urea Nitrogen 11 mg/dL (7-18); Bicarbonate 29 mmol/L (21-32); Glucose Level 110 mg/dL (74-106); Potassium 4.3 mmol/L (3.5-5.1); Sodium Level 142 mmol/L (136-145)
[2019-04-29 07:25] LABS: Protime INR 1.09
[2019-04-29 07:38] VITALS: BMI 41.2
[2019-04-29] MEDS: ASPIRIN EC 81 MG TAB PO SCH (08:36)
[2019-04-29] MEDS: ISOSORBIDE MONO SR 30 MG TAB PO SCH (08:36)
[2019-04-29] MEDS: LISINOPRIL 20 MG TAB PO SCH (08:36)
[2019-04-29] MEDS: HEPARIN/D5W 25,000 UNIT/500 ML BAG IV SCH (08:37)
--- NOTE | 2019-04-29 08:45 | P.HP ---
Certification for Inpatient Patient admitted to: Inpatient With expected LOS: >2 Midnights Patient will require the following post-hospital care: None Practitioner: I am a practitioner with admitting privileges, knowledge of patient current condition, hospital course, and medical plan of care. Services: Services provided to patient in accordance with Admission requirements found in Title 42 Section 412.3 of the Code of Federal Regulations Patient History Date of Service: 04/28/19 Reason for admission: chest pain rule out acute coronary syndrome History of Present Illness: Patient is a 53-year-old gentleman who came to the hospital with chest pain. Pain was mainly in the sternal region with radiation to the left arm. Patient was slightly diaphoretic and short of breath. In the emergency room patient's initial troponins words less than 0.03. His repeat echo and a 0.05. Patient recently had a cardiac catheterization 2 years ago which revealed mild coronary artery disease. He had mild atherosclerotic disease and most of his coronary arteries. At this time, in light of the fact patient's troponins are being elevated we will admit the patient to the hospital for inpatient treatment of non ST-elevation myocardial infarction. Patient has had prior coronary artery disease. Patient has been recommended to be medically treated. However, patient isn't very compliant and continues to smoke as well. He will be counseled regarding this during his hospital stay and hopefully can become more compliant in his care going forward. Allergies azithromycin Adverse Reaction (Verified 04/28/19 22:24) Hives Beta-Blockers (Beta-Adrenergic Bloc Adverse Reaction (Verified 10/09/17 11:30) Anaphylaxis metoprolol Adverse Reaction (Verified 04/28/19 22:24) Anaphylaxis Home Medications: Aspirin [Aspirin EC 81 MG] 81 mg PO DAILY #30 tablet. 02/09/18 Atorvastatin Calcium [Lipitor*] 20 mg PO BEDTIME #30 tab 07/23/18 Nitroglycerin [Nitrostat*] 0.4 mg SL UD PRN #30 tab 07/23/18 Albuterol Sulfate [Proair Respiclick] 2 puff IH Q6H PRN 01/30/19 Lisinopril 20 mg PO DAILY 01/30/19 Isosorbide Mononitrate [Isosorbide Mononitrate ER] 30 mg PO DAILY 04/28/19 Metformin ER [Glucophage ER*] 500 mg PO DAILY 04/28/19 - Past Medical/Surgical History Has patient received pneumonia vaccine in the past: Yes Diabetic: No -: Angina -: HTN -: Hyperlipidemia -: Tobacco abuse -: CAD -: COPD -: GERD -: Noncompliance with medication and follow up -: CARDIAC CATH 12/2013 NO STENTS 30% BLOCKAGE PER PT -: Cardiac stress tests October 2017 showed no stress-induced ischemia Psychosocial/ Personal History: Patient is single. Patient is homeless. - Family History MOM Medical History: Heart disease, Other (see notes) Notes: MASSIVE HI 61YR and arthritis DAD Medical History: Heart disease, Other (see notes) Notes: POOR CIRCULATION TO LEGS PER PT - Social History Smoking Status: Current every day smoker Place of Residence: Home Review of Systems 10-point ROS is otherwise unremarkable Physical Examination - Vital Signs Temperature: 98.4 F Blood Pressure: 129/67 Pulse: 84 Respirations: 20 Pulse Ox (%): 93 - Physical Exam General: Alert, In no apparent distress, Oriented x3 HEENT: Atraumatic, PERRLA, Mucous membr. moist/pink, EOMI, Sclerae nonicteric Neck: Supple, 2+ carotid pulse no bruit, No LAD, Without JVD or thyroid abnormality Respiratory: Clear to auscultation bilaterally, Normal air movement Cardiovascular: Regular rate/rhythm, Normal S1 S2, No murmurs Gastrointestinal: Normal bowel sounds, Soft and benign, Non-distended, No tenderness Musculoskeletal: No clubbing, No swelling, No tenderness Integumentary: No rashes Neurological: Normal gait, Normal speech, Normal strength at 5/5 x4 extr, Normal tone, Sensation intact, Cranial nerves 3-12 intact, Normal affect Lymphatics: No axilla or inguinal lymphadenopathy - Studies Laboratory Data (last 24 hrs) 04/28/19 17:13: PT 12.2, INR 1.04 04/28/19 17:13: WBC 7.2, Hgb 14.8, Hct 44.0, Plt Count 278 04/28/19 17:13: Sodium 137, Potassium 3.6, BUN 8, Creatinine 0.85, Glucose 129 H , Magnesium 1.9, Total Bilirubin 0.3, AST 36, ALT 105 H, Alkaline Phosphatase 55 Assessment & Plan - Problems (Diagnosis) (1) NSTEMI (non-ST elevated myocardial infarction) Current Visit: Yes Status: Acute (2) CAD (coronary artery disease) Onset Date: 03/03/18 Current Visit: No Status: Chronic Qualifiers: (3) COPD (chronic obstructive pulmonary disease) Onset Date: 10/11/17 Current Visit: No Status: Chronic Qualifiers: (4) HTN (hypertension) Onset Date: 03/03/18 Current Visit: No Status: Chronic Qualifiers: (5) GERD (gastroesophageal reflux disease) Current Visit: No Status: Chronic Qualifiers: (6) HLD (hyperlipidemia) Onset Date: 10/11/17 Current Visit: No Status: Chronic Qualifiers: (7) Obesity Current Visit: No Status: Chronic Qualifiers: (8) Tobacco abuse Onset Date: 03/03/18 Current Visit: No Status: Chronic - Plan 1. Serial troponins and EKG 2. Cardiology consultation 3. Echocardiogram and possible stress test versus cardiac catheterization 4. Anti-platelet therapy, anti coagulation, beta-aly, statin, and O2 as needed 5. IV morphine for pain 6. Nitro p.r.n. Discharge Plan: Home - Advance Directives Does patient have a Living Will: No Does patient have a Durable POA for Healthcare: Yes - Code Status/Comfort Care Code Status Assessed: Yes Code Status: Full Code Critical Care: No Time Spent Managing PTS Care (In Minutes): 45
[2019-04-29] MEDS ORDERED: ISOSORBIDE DINIT 20 MG TAB PO SCH ×2 (09:00)
[2019-04-29] MEDS ORDERED: METOPROLOL TAR 50 MG TAB PO SCH (09:00)
--- NOTE | 2019-04-29 11:38 | P.PN ---
Subjective Date of Service: 04/29/19 Chief Complaint: chest pain rule out acute coronary syndrome Patient reports intermittent mild chest pain. He has no other complaint. Troponin has trended up to 0.1. Physical Examination - Vital Signs Temperature: 98.4 F Blood Pressure: 129/67 Pulse: 84 Respirations: 20 Pulse Ox (%): 93 - Physical Exam General: Alert, In no apparent distress, Oriented x3 HEENT: Mucous membr. moist/pink Neck: Supple, JVD not distended Respiratory: Clear to auscultation bilaterally, Normal air movement Cardiovascular: No edema, Regular rate/rhythm, Normal S1 S2, No murmurs Gastrointestinal: Normal bowel sounds, Soft and benign, Non-distended, No tenderness Musculoskeletal: No swelling, No erythema Integumentary: No rashes Neurological: Normal speech, Normal strength at 5/5 x4 extr - Studies Laboratory Data (last 24 hrs) 04/28/19 17:13: PT 12.2, INR 1.04 04/28/19 17:13: WBC 7.2, Hgb 14.8, Hct 44.0, Plt Count 278 04/28/19 17:13: Sodium 137, Potassium 3.6, BUN 8, Creatinine 0.85, Glucose 129 H , Magnesium 1.9, Total Bilirubin 0.3, AST 36, ALT 105 H, Alkaline Phosphatase 55 Assessment And Plan - Current Problems (Diagnosis) (1) NSTEMI (non-ST elevated myocardial infarction) Current Visit: Yes Status: Acute (2) COPD (chronic obstructive pulmonary disease) Onset Date: 10/11/17 Current Visit: No Status: Chronic Qualifiers: (3) GERD (gastroesophageal reflux disease) Current Visit: No Status: Chronic Qualifiers: (4) HLD (hyperlipidemia) Onset Date: 10/11/17 Current Visit: No Status: Chronic Qualifiers: (5) HTN (hypertension) Onset Date: 03/03/18 Current Visit: No Status: Chronic Qualifiers: (6) Nicotine dependence Onset Date: 10/11/17 Current Visit: No Status: Chronic (7) Obesity Current Visit: No Status: Chronic Qualifiers: - Plan Troponin trended up. Patient with significant coronary disease. Cardiology consult requested Continue heparin drip, aspirin, nitrates prn and Lipitor. Allergy to beta aly noted Add Plavix Echocardiogram requested. Aggressive blood pressure control. Stress test versus cardiac catheterization per cardiology. Discharge Plan: Home
[2019-04-29] MEDS: CLOPIDOGREL 75 MG TABLET PO SCH (12:38)
[2019-04-29] MEDS: NITROGLYCERIN 0.1 MG/HR (2.5 MG) PATCH TD SCH (13:32)
--- NOTE | 2019-04-29 19:54 | EKG ---
Test Date: 2019-04-28 Test Time: 19:10:38 Marble Machine Tender: PARVEEN MEASUREMENT RESULTS: Intervals: Rate: 79 [place]: 148 QRSD: 106 QT: 360 QTc: 412 [place]: P: 55 KS: 148 QRS: 72 T: 173 INTERPRETIVE STATEMENTS: Normal sinus rhythm Incomplete left bundle branch block Nonspecific ST and T wave abnormality Abnormal ECG Compared to ECG 02/18/2019 09:48:04 ST (T wave) deviation now present Electronically Signed On 04-29-19 19:52:52 CDT by Nazario Anderson
[2019-04-29] MEDS: ATORVASTATIN 20 MG TAB PO SCH (20:09)
--- NOTE | 2019-04-30 02:18 | CON ---
Date of Consultation: 04/29/[address] Argueta's service on 04/28/2019. I saw the patient on 04/29/2019. Reason For Consultation: Chest pain. History Of Present Illness: Mr. Langston is a 53-year-old white male. He is known to us from [facility] hospital admissions. He has history of COPD, diabetes, dyslipidemia, hypertension, sleep apnea. He has had multiple heart catheterizations in the past showing minimal coronary artery disease. The last catheterization here was in 2016. In 2019 in January, he had a negative stress test. In 2017, fol lowing the catheterization, he had a negative stress test as well. Echocardiogram in January of 2019 wa s normal. So far, his EKG is unremarkable. Troponin is 0.05. Chest x-ray is negative. His chest p ain is described as mid epigastric, occasionally radiating to the back and in the upper chest without any nausea, vomiting, diaphoresis, PND, orthopnea, pedal edema, palpitations, or syncope. Occasiona lly, he gets short of breath. His blood pressure is occasionally poorly controlled. Past Medical History: As stated above. Allergies: BETA BLOCKERS AND AZITHROMYCIN. Medications: At home include aspirin, metformin, Lipitor, Imdur, nitroglycerin p.r.n., lisinopril, a nd inhalers. Review of Systems: Negative. Social History: Positive for tobacco. Family History: Negative. Physical Examination: Vital Signs: Stable, afebrile. HEENT: Negative. Neck: Supple with no bruit. Chest: Clear to auscultation and percussion. Cardiac: Revealed regular rhythm and rate. No murmurs, gallops, or rubs. Abdomen: Benign. Extremities: Revealed no clubbing, cyanosis, or edema. Diagnostic Data: As stated earlier. Impression And Plan: 1.Atypical chest pain. 2.Chronic obstructive pulmonary disease. 3.Diabetes. 4.Dyslipidemia. 5.Hypertension. 6.Sleep apnea. 7.Obesity. The patient has had multiple catheterizations showing minimal coronary artery disease. He has had mu ltiple stress tests that had been negative. Echocardiogram has been negative. His EKG is negative. Chest x-ray is negative. Troponin is minimally elevated, not consistent with subendocardial myocard ial infarction. I will plan to do another stress test on him tomorrow. NB/MODL Voice ID: [id number] Report ID: [id number]
[2019-04-30 06:05] LABS: Absolute Lymphocytes (CBC) 1.9 K/uL (0.7-4.9); Basophils % 1.2 % (0-1.3); Hematocrit 43.7 % (39.6-49.0); Lymphocytes % 28.8 % (15.3-44.8); MPV 9.7 fL (7.6-11.3); RBC Red Blood Cell Count 4.88 M/uL (4.33-5.43)
--- NOTE | 2019-04-30 07:52 | EKG ---
Test Date: 2019-04-29 Test Time: 13:11:28 Trapeze Artist: DOROTA MEASUREMENT RESULTS: Intervals: Rate: 77 [place]: 154 QRSD: 106 QT: 388 QTc: 439 [place]: P: 47 [place]: 154 QRS: 68 T: 2 INTERPRETIVE STATEMENTS: Sinus rhythm with occasional premature ventricular complexes Incomplete left bundle branch block Borderline ECG Compared to ECG 04/28/2019 19:10:38 Ventricular premature complex(es) now present ST (T wave) deviation no longer present Electronically Signed On 04-30-19 07:51:42 CDT by Eduardo Hernandes
[2019-04-30] MEDS: HEPARIN/D5W 25,000 UNIT/500 ML BAG IV SCH (08:33)
[2019-04-30] MEDS: ASPIRIN EC 81 MG TAB PO SCH ×2 (08:34→15:12)
[2019-04-30] MEDS: CLOPIDOGREL 75 MG TABLET PO SCH ×2 (08:35→15:11)
[2019-04-30] MEDS: LISINOPRIL 20 MG TAB PO SCH ×2 (08:35→15:11)
[2019-04-30] MEDS: ISOSORBIDE MONO SR 30 MG TAB PO SCH ×2 (08:35→15:11)
[2019-04-30] MEDS: NITROGLYCERIN 0.1 MG/HR (2.5 MG) PATCH TD SCH (08:46)
[2019-04-30] MEDS ORDERED: HEPARIN 5000 UNIT/ML 1 ML VIAL SQ ONE (09:00)
[2019-04-30] MEDS ORDERED: REGADENOSON 0.4 MG/5 ML SYR IV ONE (10:01)
--- NOTE | 2019-04-30 11:16 | ECHO ---
HEIGHT: 5 ft 6 in WEIGHT: 255 lb 9.6 oz DATE OF STUDY: 04/30/[address]: eric thornton 2-DIMENSIONAL: YES M.MODE: YES DOPPLER: YES COLOR FLOW: YES TDS: NO PORTABLE: NO DEFINITY: NO BUBBLE STUDY: NO DIAGNOSIS: NSTEMI CARDIAC HISTORY: CATHERIZATION: YES SURGERY: NO PROSTHETIC VALVE: NO PACEMAKER: NO MEASUREMENTS (cm) DIASTOLIC (NORMALS) SYSTOLIC (NORMALS) IVSd 1.0 (0.6-1.2) LA Diam 3.5 (1.9-4.0) LVEF 56% LVIDd 5.4 (3.5-5.7) LVIDs 3.8 (2.0-3.5) %FS 30% LVPWd 1.2 (0.6-1.2) Ao Diam 2.8 (2.0-3.7) 2 DIMENSIONAL ASSESSMENT: RIGHT ATRIUM: NORMAL LEFT ATRIUM: NORMAL RIGHT VENTRICLE: NORMAL LEFT VENTRICLE: NORMAL TRICUSPID VALVE: NORMAL MITRAL VALVE: NORMAL PULMONIC VALVE: NORMAL AORTIC VALVE: MILD LEAFLET THICKENING PERICARDIAL EFFUSION: NONE AORTIC ROOT: NORMAL LEFT VENTRICULAR WALL MOTION: NORMAL. DOPPLER/COLOR FLOW: NO AORTIC STENOSIS OR AORTIC REGURGITATION. TRACE OF MITRAL AND TRICUSPID REGURGITATION. NORMAL RIGHT VENTRICULAR SYSTOLIC PRESSURE. COMMENTS: NORMAL LEFT VENTRICULAR EJECTION FRACTION. AORTIC SCLEROSIS, MILD. TRACE OF MITRAL AND TRICUSPID REGURGITATION. TECHNOLOGIST: DEBBIE CEE
--- NOTE | 2019-04-30 13:33 | RAD REPORT ---
EXAM DESCRIPTION: NM - Rest Stress Cardiac Imaging - 04/30/2019 1:23 pm CLINICAL HISTORY: CP Chest pain. COMPARISON: Rest Stress Cardiac Imaging dated 10/10/2017 TECHNIQUE: The patient was administered approximately 10mCi of Tc 99m Sestamibi prior to resting SPE CT imaging of the heart. The patient was then administered approximately 30 mCi of Tc 99m Sestamibi f ollowing exercise or pharmacologic stress. Multiplanar SPECT images were reviewed. FINDINGS: No stress-induced ischemia defect is seen. However, the LV cavity is seen to mildly dilate d with stress. No fixed defect is seen to suggest hibernating myocardium or scarred myocardium. The end diastolic volume is 164 ml, the end systolic volume is 104 ml, and the ejection fraction is 3 6 %. IMPRESSION: The left ventricular cavity is seen to dilate with stress which would indicate that stre ss-induced ischemia is present.
--- NOTE | 2019-04-30 13:44 | TREADPHA ---
DX: CHEST PAIN Date of Study: 04/30/19 Ht: 5 6 Wt: 255 lb 9.6 oz Consulting Physician: RIN MEDICATIONS: TYLENOL, XANAX, LIPITOR, ASPIRIN, PLAVIX, HEPARIN, NITROSTAT HISTORY: 53 YEAR OLD MALE WITH COMPLAINTS OF CHEST PAIN, HISTORY OF ANGINA, HYPERTENSION, HYPERLIPIDEMIA, CORONARY ARTERY DISEASE, CHRONIC OBSTRUCTIVE PULMONARY DISEASE, GERD, SMOKES PACK DAILY. FORMER DRUG ABUSE. PHYSICIAL EXAMINATION: RESTING B.P.: 171/99 RESTING H.R.: 82 RESTING EKG: SINUS RHYTHM, NON SPECIFIC ST ABNORMALITY. PROTOCOL: LEXISCAN EXERCISE TIME: 3:30 B.P. AT PEAK STRESS: 156/99 IMPRESSION: LEXISCAN INJECTED, FOLLOWED BY CARDIOLITE PER PROTOCOL, SEE NUCLEAR MEDICINE REPORT. NO SUPRA VENTRICULAR TACHYCARDIA, PREMATURE ATRIAL COMPLEXES. OCCASIONAL PREMATURE VENTRICULAR COMPLEXES. PATIENT REPORTED CHEST PAIN 8/10 DURING STRESS. NON DIAGNOSTIC EKG WITH LEXISCAN STRESS.
[2019-04-30] MEDS ORDERED: HEPARIN 5000 UNIT/ML 1 ML VIAL IV ONE (14:55)
--- NOTE | 2019-04-30 15:24 | PN ---
Date of Progress Note: 04/30/2019 Subjective: Patient seen and examined. Chart reviewed and case discussed with RN. Patient going fo r stress test today. Chest pain is better. Medications: List reviewed. Physical Examination: Vital Signs: Temperature 98, heart rate 77, blood pressure 149/79, respirations 20, O2 of 95% on stephanie m air. General: Awake, alert, and oriented x3. Morbidly obese, not in any acute distress. CVS: S1, S2. Regular rate and rhythm. Peripheral pulses present. Respiratory: Somewhat diminished breath sounds. No wheezing or stridor. Gastrointestinal: Abdomen is soft, nontender, nondistended. Positive bowel sounds. Extremities: No clubbing or cyanosis. Patient has lower extremity edema. Neurologic: Nonfocal. Laboratory Data: Blood glucose level 109. WBC 6.5, H and H 14.7 and 43.7, platelets 266, neutrophil s 56%. Assessment And Plan: 1.Jcw-BA-ygxqvupte myocardial infarction. Patient is scheduled for cardiac stress test and possible heart catheterization is abnormal. Appreciate Cardiology input. Continue heparin drip. 2.Chronic obstructive pulmonary disease, chronic bronchitis. Continue with nebulizer treatments, O2 p.r.n. 3.Gastroesophageal reflux disease without esophagitis, stable. 4.Mixed hyperlipidemia. Lipid panel reviewed. Continue with statin. 5.Essential hypertension, not well controlled. We will continue with home medications. 6.Nicotine dependence with cigarette smoking, counseled. 7.Morbid obesity. BMI 41. 8.Deep venous thrombosis prophylaxis, addressed. Plan: Follow up with stress test results. ABIODUN Voice ID: [id number] Report ID: [id number]
[2019-04-30] MEDS: ATORVASTATIN 20 MG TAB PO SCH (20:41)
[2019-05-01] MEDS: HEPARIN/D5W 25,000 UNIT/500 ML BAG IV SCH (06:27)
[2019-05-01] MEDS: CLOPIDOGREL 75 MG TABLET PO SCH (09:39)
[2019-05-01] MEDS: LISINOPRIL 20 MG TAB PO SCH (09:39)
[2019-05-01] MEDS: ISOSORBIDE MONO SR 30 MG TAB PO SCH (09:39)
[2019-05-01] MEDS: ASPIRIN EC 81 MG TAB PO SCH (09:40)
[2019-05-01] MEDS: NITROGLYCERIN 0.1 MG/HR (2.5 MG) PATCH TD SCH (09:40)
[2019-05-01] MEDS ORDERED: HEPA 1000U/500MLS 1,000 UNIT/500 ML BAG IV ONE (13:56)
[2019-05-01] MEDS ORDERED: NA CHLORIDE 0.9% 500 ML ONE (13:56)
[2019-05-01] MEDS ORDERED: ATROPINE SULF 1 MG/10 ML SYR IV ONE (13:57)
[2019-05-01] MEDS ORDERED: FENTANYL CITR 100 MCG/2 ML ONE (13:57)
[2019-05-01] MEDS ORDERED: MIDAZOLAM HCL 5 MG/5 ML INJ ONE (13:57)
[2019-05-01] MEDS ORDERED: NA CHLORIDE 0.9% 0 ML IV ONE (13:57)
--- NOTE | 2019-05-01 15:27 | PN ---
Date of Progress Note: 05/01/2019 Subjective: Patient seen and examined. Chart reviewed and case discussed with RN. Patient had card iac stress test yesterday, which was positive. Does not report any chest pain at this time. Medications: List reviewed. Physical Examination: Vital Signs: Temperature 98.3, heart rate 74, blood pressure 137/94, respirations 19, O2 of 94% on r oom air. General: Awake, alert, oriented x3, not in any acute distress, appears older than stated age, morbid ly obese male. CVS: S1, S2. Regular rate and rhythm. Peripheral pulses present. Respiratory: Moving air well bilaterally. No wheezing or stridor. Gastrointestinal: Abdomen is soft, nontender, nondistended. Positive bowel sounds. Extremities: No clubbing, cyanosis, or edema. Neurologic: Nonfocal. Laboratory Data: Blood glucose level is 112. Hemoccult blood is positive. Echocardiogram shows EF 56%, aortic sclerosis mild, trace of mitral and tricuspid regurg. Pharmacological stress test. No s upraventricular tachycardia or premature atrial complexes. Occasional premature ventricular complexe s present. Patient reported chest pain during stress. Nondiagnostic EKG with Lexiscan stress. Nucl ear imaging shows left ventricular cavity deemed dilated with stress, which would indicate no stress- induced ischemia is present. Assessment And Plan: A 53-year-old male with: 1.Laj-HY-hdcjrwwvw myocardial infarction. The patient has positive stress test scheduled for cardia c catheterization today. Appreciate Cardiology input. Continue heparin drip. 2.Chronic obstructive pulmonary disease, chronic bronchitis. We will continue with nebulizer treatm ents and oxygen as needed, stable. 3.Gastroesophageal reflux disease without esophagitis, stable. 4.Mixed hyperlipidemia. Continue with statin. 5.Essential hypertension, stable. We will continue home medications. 6.Nicotine dependence with cigarette smoking, counseled. 7.Morbid obesity, BMI 41. 8.Deep venous thrombosis prophylaxis. Heparin. Plan: Follow up with cardiac catheterization results. ABIODUN Voice ID: [id number] Report ID: [id number]
[2019-05-01 15:42] VITALS: BP 137/92
[2019-05-01 16:38] VITALS: O2SAT 94
[2019-05-01 16:50] VITALS: TEMP 98
--- NOTE | 2019-05-02 01:38 | OP ---
Date of Procedure: 05/01/2019 Surgeon: Nazario Anderson MD Geomorphologist: Sandro Valverde. Admitted to Dr. Fuchs on 04/28/2019. Procedures: Today on 05/01/2019, he underwent a left heart catheterization, selective coronary arter iogram. Indication: Chest pain and a positive stress test. Description Of Procedure: The patient was prepped and draped in the routine sterile fashion in the c ath lab. He was given Versed for IV sedation. Six-Angolan sheath introduced in the right common femo ral artery. Angiography there was normal. Angio-Seal was used to close the case. Sharmin catheter left and right were used selectively for the left main and the right main respectively. He had a 30% OM very left dominant. He had a 50% RCA, mid stenosis in the nondominant vessel, small. He had a n ormal LAD. There were no complications. Blood Loss: 5 mL. Postoperative Diagnosis: Ycwz-jf-mpqezjoj coronary artery disease. Plan: Plan is for medical therapy. Anesthesia: Total conscious sedation was 30 minutes. ROSSY/SARAH BETH Voice ID: [id number] Report ID: [id number]
--- NOTE | 2019-05-02 06:44 | DS ---
Date of Discharge: 05/01/2019 Consultants: Dr. Anderson with Cardiology. Procedures: Cardiac stress test on 04/30/2019, positive for stress-induced ischemia. Cardiac cathet erization on 05/01/2019 shows minimal coronary artery disease, 30% RCA and 30% OM. No stents require d. Admitting Diagnoses: 1.Ihq-VZ-xqtnjumrp myocardial infarction. 2.Coronary artery disease [place] artery, [place] heart with angina. 3.Chronic obstructive pulmonary disease, chronic bronchitis. 4.Essential hypertension. 5.Gastroesophageal reflux disease without esophagitis. 6.Mixed hyperlipidemia. 7.Morbid obesity. 8.Nicotine dependence with cigarette smoking. 9.Noncompliance. Discharge Diagnoses: 1.Enx-UW-wnzamsbqp myocardial infarction status post cardiac catheterization. 2.Chronic obstructive pulmonary disease, chronic bronchitis, stable. 3.Gastroesophageal reflux disease without esophagitis, stable. 4.Mixed hyperlipidemia, on statin. 5.Essential hypertension, stable. 6.Nicotine dependence with cigarette smoking, counseled. 7.Morbid obesity, body mass index of 41. 8.History of drug abuse. Hospital Course: Patient is a 53-year-old male who is homeless, has had multiple cardiac workups in the past, has past medical history of heart disease, hypertension, hyperlipidemia, diabetes, which is non-insulin requiring. Continues to smoke, has had substance abuse in the past who comes in with re current chest pain. Patient was found to have NSTEMI. Lipid panel showed elevated triglycerides and low HDL. He had a cardiac stress test done. He was placed on heparin drip. Stress test was positi ve for stress-induced ischemia. Cardiology was consulted and patient was taken for cardiac catheteri zation by Dr. Anderson, which showed again 30% RCA and 30% OM stenosis. No stents were required. [facility] was then cleared for discharge. His symptoms improved. He is on aspirin and will be added on t o Plavix. He was again counseled regarding smoking cessation. He needs to hold his metformin for 48 hours post catheterization. He needs to be compliant with followup and establish care with primary care physician and to follow up with Cardiology, Dr. Anderson in 2 weeks. Return to ER for worsening condition. Diet: Heart healthy. Activity: As tolerated. Medications: As per medication reconciliation list. For physical exam findings please see progress note dictated on the day of discharge. Time Spent: Total time spent discharging patient was 33 minutes. ABIODUN Voice ID: [id number] Report ID: [id number]
--- OUTSIDE RECORDS SUMMARY | 2019-05-13 11:52 | XMS REPORT ---
:1965 [facility] Address [address] [place] [address] Dr. Fierro [address] [place] [id number] Care Team Providers Name Role Phone Unavailable Unavailable Unavailable Problems This patient has no known problems. Allergies, Adverse Reactions, Alerts This patient has no known allergies or adverse reactions. Medications This patient has no known medications.
== END 2019-05-01 19:00 | disposition home or self-care (01) | DRG 281 ==
LOC: ER 16:31 → OBSVTOIN 20:57 → ERHOLD 20:57 → 4TH 21:57
PROVIDERS: ADMIT Hospitalist; ATTEND Hospitalist
PROC: 3E033GC Introduction of Other Therapeutic Substance into Peripheral Vein, Percutaneous Approach (ICD-10-PCS; 2019-04-29)
PROC: 4A023N7 Measurement of Cardiac Sampling and Pressure, Left Heart, Percutaneous Approach (ICD-10-PCS; principal; 2019-05-01)
PROC: B205YZZ Plain Radiography of Left Heart using Other Contrast (ICD-10-PCS; 2019-05-01)
PROC: B201YZZ Plain Radiography of Multiple Coronary Arteries using Other Contrast (ICD-10-PCS; 2019-05-01)
DX: I21.4 Non-ST elevation (NSTEMI) myocardial infarction (principal); Z68.41 Body mass index [BMI] 40.0-44.9, adult; I25.119 Atherosclerotic heart disease of native coronary artery with unspecified angina pectoris; J44.9 Chronic obstructive pulmonary disease, unspecified; K21.9 Gastro-esophageal reflux disease without esophagitis; E78.2 Mixed hyperlipidemia; I10 Essential (primary) hypertension; F17.210 Nicotine dependence, cigarettes, uncomplicated; E66.01 Morbid (severe) obesity due to excess calories; F19.21 Other psychoactive substance dependence, in remission; Z59.0 Homelessness; Z91.19 Patient's noncompliance with other medical treatment and regimen
CPT/HCPCS: 36415; 70450; 71045; 78452; 80048; 80061; 80076; 82274; 82947; 83735; 83880; 84484; 85025; 85610; 85730; 93005; 93017; 93306; 93454; 94660; 94760; 99285; A9500; C1760; C1893; J0583; J1644; J2250; J2785; J3010; J7040

== ENCOUNTER 2019-05-12 03:40 | Emergency (ER) | payer SELFPAY ==
[2019-05-12 04:50] LABS: Absolute Lymphocytes (CBC) 0.8 K/uL (0.7-4.9); Basophils % 2.2 % (0-1.3); Hematocrit 40.6 % (39.6-49.0); Lymphocytes % 11.3 % (15.3-44.8); MPV 9.4 fL (7.6-11.3); RBC Red Blood Cell Count 4.61 M/uL (4.33-5.43)
[2019-05-12] MEDS ORDERED: ALBUTEROL 2.5 MG/3 ML NEB SOL ONE (05:04)
[2019-05-12] MEDS ORDERED: IPRATROPIUM BROM 0.5MG/2.5ML ONE (05:04)
[2019-05-12 05:07] LABS: Protime INR 1.12
[2019-05-12] MEDS ORDERED: ONDANSETRON 4 MG/2 ML VIAL ONE (05:15)
[2019-05-12 05:22] LABS: ALT/SGPT 74 U/L (12-78); AST/SGOT 26 U/L (15-37); Albumin 3.4 g/dL (3.4-5.0); Alkaline Phosphatase 55 U/L (45-117); BUN Blood Urea Nitrogen 9 mg/dL (7-18); Bicarbonate 26 mmol/L (21-32); Bilirubin Direct < 0.1 mg/dL (0-0.2); Bilirubin Total 0.3 mg/dL (0.2-1.0); Glucose Level 103 mg/dL (74-106); Magnesium 1.8 mg/dL (1.8-2.4); NT PRO-BNP 23 pg/mL (<125); Potassium 3.7 mmol/L (3.5-5.1); Protein, Total 6.8 g/dL (6.4-8.2); Sodium Level 140 mmol/L (136-145); Troponin (Emerg Dept Use Only) < 0.02 ng/mL (0.0-0.045)
[2019-05-12] MEDS ORDERED: OSELTAMIVIR 75 MG CAP ONE (06:58)
--- NOTE | 2019-05-12 07:04 | ER ---
Nurse's Notes [facility] Name: Juan Miguel Langston Age: 53 yrs Sex: Male : 1965 Arrival Date: 05/12/2019 Time: 03:42 Bed 14 Private MD: Diagnosis: acute cough;shortness of breath;influenza illness Presentation: 05/12 03:55 Presenting complaint: Patient states: "I got wet while it was cold out recently and now jd3 I have chest congestion and a cough as well as some pain with a little bit of nausea.". Transition of care: patient was not received from another setting of care. Onset of symptoms was May 12, 2019. Risk Assessment: Do you want to hurt yourself or someone else? Patient reports no desire to harm self or others. Initial Sepsis Screen: Does the patient meet any 2 criteria? HR > 90 bpm. No. Patient's initial sepsis screen is negative. Does the patient have a suspected source of infection? No. Patient's initial sepsis screen is negative. Care prior to arrival: None. 03:55 Method Of Arrival: Ambulatory j 03:55 Acuity: DESTINY 3 jd3 Historical: - Allergies: 04:00 Azithromycin; jd3 04:00 Metoprolol Tartrate; jd3 - Home Meds: 04:00 aspirin 81 mg Oral TbEC [Active]; atorvastatin 20 mg oral tab [Active]; clopidogrel 75 jd3 mg oral tab [Active]; isosorbide mononitrate 30 mg Oral Tb24 1 tab once daily [Active]; lisinopril 20 mg Oral tab once daily [Active]; metformin 500 mg oral tab [Active]; Nitroglycerin Oral [Active]; - PMHx: 04:00 COPD; Angina; Diabetes - NIDDM; High Cholesterol; Hypertension; Myocardial infarction; jd3 Sleep Apnea; - PSHx: 04:00 heart cath; jd3 - Immunization history:: Adult Immunizations up to date, Flu vaccine is up to date. - Social history:: Smoking status: Patient uses tobacco products, smokes one-half pack cigarettes per day. - Ebola Screening: : Patient negative for fever greater than or equal to 101.5 degrees Fahrenheit, and additional compatible Ebola Virus Disease symptoms. - Family history:: not pertinent. - Hospitalizations: : No recent hospitalization is reported. Screenin:03 Abuse screen: Denies threats or abuse. Nutritional screening: No deficits noted. jd3 Tuberculosis screening: No symptoms or risk factors identified. Fall Risk Ambulatory Aid- None/Bed Rest/Nurse Assist (0 pts). Gait- Normal/Bed Rest/Wheelchair (0 pts) Mental Status- Oriented to own ability (0 pts). Total [place] Fall Scale indicates No Risk (0-24 pts). Assessment: 04:02 General: Appears in no apparent distress. uncomfortable, Behavior is calm, cooperative, jd3 appropriate for age. Pain: Complains of pain in chest Quality of pain is described as pressure. Neuro: Level of Consciousness is awake, alert, obeys commands, Oriented to person, place, time, situation. Cardiovascular: Heart tones S1 S2 present Capillary refill < 3 seconds Patient's skin is warm and dry. Respiratory: Reports shortness of breath at rest cough that is Airway is patent Respiratory effort is even, unlabored, Respiratory pattern is regular, symmetrical, Breath sounds are diminished bilaterally. GI: Abdomen is round non-distended, Reports nausea, Patient currently denies abdominal pain. : No signs and/or symptoms were reported regarding the genitourinary system. EENT: No signs and/or symptoms were reported regarding the EENT system. Derm: Skin is intact, Skin is dry, Skin is normal, Skin temperature is warm. Musculoskeletal: Circulation, motion, and sensation intact. Range of motion: intact in all extremities. 04:55 Reassessment: Patient appears in no apparent distress at this time. Patient and/or jd3 family updated on plan of care and expected duration. Pain level reassessed. Patient is alert, oriented x 3, equal unlabored respirations, skin warm/dry/pink. 05:52 Reassessment: Patient appears in no apparent distress at this time. Patient and/or jd3 family updated on plan of care and expected duration. Pain level reassessed. Patient is alert, oriented x 3, equal unlabored respirations, skin warm/dry/pink. 06:55 Reassessment: Patient appears in no apparent distress at this time. No changes from jd3 previously documented assessment. Patient and/or family updated on plan of care and expected duration. Pain level reassessed. Patient is alert, oriented x 3, equal unlabored respirations, skin warm/dry/pink. 07:15 Reassessment: Patient appears in no apparent distress at this time. Patient and/or tw2 family updated on plan of care and expected duration. Pain level reassessed. Patient is alert, oriented x 3, equal unlabored respirations, skin warm/dry/pink. Vital Signs: 04:01 BP 156 / 91; Pulse 99; Resp 20 S; Temp 98.4(O); Pulse Ox 97% on R/A; Weight 112.49 kg jd3 (R); Height 5 ft. 6 in. (167.64 cm) (R); Pain 9/10; 04:54 BP 129 / 72; Pulse 94; Resp 19 S; Pulse Ox 98% on R/A; jd3 05:51 BP 135 / 72; Pulse 94; Resp 19 S; Pulse Ox 96% on R/A; jd3 07:15 BP 132 / 71; Pulse 91; Resp 17; Pulse Ox 95% on R/A; tw2 04:01 Body Mass Index 40.03 (112.49 kg, 167.64 cm) jd3 ED Course: 03:42 Patient arrived in ED. ds1 03:52 Varghese Sow MD is Attending Physician. wa 03:57 Triage completed. jd3 04:02 Arm band placed on. jd3 04:04 Patient has correct armband on for positive identification. Placed in gown. Bed in low jd3 position. Call light in reach. Side rails up X 1. Adult w/ patient. 04:20 Inserted saline lock: 20 gauge in right wrist, using aseptic technique. Blood collected.cc3 04:21 Hardeep Kirkpatrick RN is Primary Nurse. jd3 04:21 EKG done, by ED staff, reviewed by Varghese Sow MD. jd3 07:15 No provider procedures requiring assistance completed. IV discontinued, intact, tw2 bleeding controlled, No redness/swelling at site. Pressure dressing applied. Administered Medications: 05:08 Drug: Albuterol - atroVENT (3:1) (2.5 mg - 0.5 mg) 3 ml Route: Nebulizer; cc3 05:26 Follow up: Response: No adverse reaction jd3 05:17 Drug: Zofran 4 mg Route: IVP; Site: right wrist; cc3 06:15 Follow up: Response: No adverse reaction jd3 07:00 Drug: Tamiflu 75 mg Route: PO; jd3 07:15 Follow up: Response: No adverse reaction tw2 Outcome: 07:01 Discharge ordered by . woodrow 07:15 Discharged to Unknown ambulatory with significant other tw2 07:15 Condition: stable 07:15 Discharge instructions given to patient, significant other, Instructed on discharge instructions, follow up and referral plans. medication usage, benefits of quitting smoking, Demonstrated understanding of instructions, follow-up care, medications, Prescriptions given X 2. 07:17 Patient left the ED. tw2 Signatures: Shereen Lopez ds1 Myla Shelton RN RN tw2 Varghese Sow MD MD wa Davies, Jonathon, RN RN jd3 Darlene Flores cc3
--- NOTE | 2019-05-12 07:04 | EDPHYS ---
Physician Documentation [facility] Name: Juan Miguel Langston Age: 53 yrs Sex: Male : 1965 Arrival Date: 05/12/2019 Time: 03:42 Bed 14 Private MD: ED Physician Varghese Sow HPI: 05/12 06:55 This 53 yrs old Male presents to ER via Ambulatory with complaints of Chest wa Congestion, Vomiting. 06:55 The patient or guardian reports cough, difficulty breathing, flu symptoms. Onset: The wa symptoms/episode began/occurred 2 day(s) ago. Modifying factors: The symptoms are alleviated by nothing. the symptoms are aggravated by cough. Associated signs and symptoms: Pertinent positives: fever, nausea, rhinorrhea, vomiting. Severity of symptoms: At their worst the symptoms were moderate in the emergency department the symptoms are unchanged. The patient has experienced similar episodes in the past. The patient has been recently seen by a physician:. states was rained on 3 days ago. illness began the next day. Historical: - Allergies: 04:00 Azithromycin; jd3 04:00 Metoprolol Tartrate; jd3 - Home Meds: 04:00 aspirin 81 mg Oral TbEC [Active]; atorvastatin 20 mg oral tab [Active]; clopidogrel 75 jd3 mg oral tab [Active]; isosorbide mononitrate 30 mg Oral Tb24 1 tab once daily [Active]; lisinopril 20 mg Oral tab once daily [Active]; metformin 500 mg oral tab [Active]; Nitroglycerin Oral [Active]; - PMHx: 04:00 COPD; Angina; Diabetes - NIDDM; High Cholesterol; Hypertension; Myocardial infarction; jd3 Sleep Apnea; - PSHx: 04:00 heart cath; jd3 - Immunization history:: Adult Immunizations up to date, Flu vaccine is up to date. - Social history:: Smoking status: Patient uses tobacco products, smokes one-half pack cigarettes per day. - Ebola Screening: : Patient negative for fever greater than or equal to 101.5 degrees Fahrenheit, and additional compatible Ebola Virus Disease symptoms. - Family history:: not pertinent. - Hospitalizations: : No recent hospitalization is reported. ROS: 06:57 Eyes: Negative for injury, pain, redness, and discharge, Neck: Negative for injury, wa pain, and swelling, Cardiovascular: Negative for chest pain, palpitations, and edema, Abdomen/GI: Negative for abdominal pain, nausea, vomiting, diarrhea, and constipation, Back: Negative for injury and pain, : Negative for injury, bleeding, discharge, and swelling, MS/Extremity: Negative for injury and deformity, Skin: Negative for injury, rash, and discoloration, Neuro: Negative for headache, weakness, numbness, tingling, and seizure, Psych: Negative for depression, anxiety, suicide ideation, homicidal ideation, and hallucinations. 06:57 Constitutional: Positive for chills, fever. 06:57 ENT: Positive for rhinorrhea, sinus congestion, sore throat. 06:57 Respiratory: Positive for cough, shortness of breath. 06:57 All other systems are negative. Exam: 06:58 Constitutional: This is a well developed, well nourished patient who is awake, alert, wa and in no acute distress. Head/Face: Normocephalic, atraumatic. Eyes: Pupils equal round and reactive to light, extra-ocular motions intact. Lids and lashes normal. Conjunctiva and sclera are non-icteric and not injected. Cornea within normal limits. Periorbital areas with no swelling, redness, or edema. ENT: Nares patent. No nasal discharge, no septal abnormalities noted. Tympanic membranes are normal and external auditory canals are clear. Oropharynx with no redness, swelling, or masses, exudates, or evidence of obstruction, uvula midline. Mucous membranes moist. Neck: Trachea midline, no thyromegaly or masses palpated, and no cervical lymphadenopathy. Supple, full range of motion without nuchal rigidity, or vertebral point tenderness. No Meningismus. Chest/axilla: Normal chest wall appearance and motion. Nontender with no deformity. No lesions are appreciated. Cardiovascular: Regular rate and rhythm with a normal S1 and S2. No gallops, murmurs, or rubs. Normal PMI, no JVD. No pulse deficits. Abdomen/GI: Soft, non-tender, with normal bowel sounds. No distension or tympany. No guarding or rebound. No evidence of tenderness throughout. Back: No spinal tenderness. No costovertebral tenderness. Full range of motion. Skin: Warm, dry with normal turgor. Normal color with no rashes, no lesions, and no evidence of cellulitis. MS/ Extremity: Pulses equal, no cyanosis. Neurovascular intact. Full, normal range of motion. Neuro: Awake and alert, GCS 15, oriented to person, place, time, and situation. Cranial nerves II-XII grossly intact. Motor strength 5/5 in all extremities. Sensory grossly intact. Cerebellar exam normal. Normal gait. Psych: Awake, alert, with orientation to person, place and time. Behavior, mood, and affect are within normal limits. 06:58 Respiratory: the patient does not display signs of respiratory distress, Respirations: normal, Breath sounds: coarse BS, Respiratory rate: nml Vital Signs: 04:01 BP 156 / 91; Pulse 99; Resp 20 S; Temp 98.4(O); Pulse Ox 97% on R/A; Weight 112.49 kg jd3 (R); Height 5 ft. 6 in. (167.64 cm) (R); Pain 9/10; 04:54 BP 129 / 72; Pulse 94; Resp 19 S; Pulse Ox 98% on R/A; jd3 05:51 BP 135 / 72; Pulse 94; Resp 19 S; Pulse Ox 96% on R/A; jd3 07:15 BP 132 / 71; Pulse 91; Resp 17; Pulse Ox 95% on R/A; tw2 04:01 Body Mass Index 40.03 (112.49 kg, 167.64 cm) jd3 MDM: 03:52 Patient medically screened. wa 06:59 Differential diagnosis: bronchitis, flu, URI, pna. Data reviewed: vital signs, nurses wa notes, lab test result(s), EKG, radiologic studies. Test interpretation: by ED physician or midlevel provider: flu B positive. CXR: noted wnl. Response to treatment: the patient's symptoms have markedly improved after treatment. 07:00 ED course: receive nebs. tamiflu. wa 07:05 Test interpretation: by ED physician or midlevel provider: EKG: interp by me: HR 92. wa nml sinus. nml axis. noted inferior ST abnormality. 05/12 04:24 Order name: Basic Metabolic Panel [facility] 05/12 04:24 Order name: CBC with Diff [facility] 05/12 04:24 Order name: LFT's [facility] 05/12 04:24 Order name: Magnesium j 05/12 04:24 Order name: NT PRO-BNP [facility] 05/12 04:24 Order name: PT-INR [facility] 05/12 04:24 Order name: Troponin (emerg Dept Use Only) [facility] 05/12 04:47 Order name: Flu pa 05/12 05:05 Order name: CBC with Automated Diff; Complete Time: 06:52 EDMS 05/12 05:13 Order name: Protime (+INR); Complete Time: 06:52 EDMS 05/12 05:21 Order name: Influenza Screen (A ; Complete Time: 06:52 EDMS 05/12 05:22 Order name: Basic Metabolic Panel; Complete Time: 06:52 EDMS 05/12 05:22 Order name: Liver (Hepatic) Function; Complete Time: 06:52 EDMS 05/12 05:22 Order name: Troponin (Emerg Dept Use Only); Complete Time: 06:53 EDMS 05/12 04:24 Order name: XRAY Chest (1 view) [facility] 05/12 04:24 Order name: EKG; Complete Time: 04:25 [facility] 05/12 04:24 Order name: Cardiac monitoring; Complete Time: 04:25 [facility] 05/12 04:24 Order name: EKG - Nurse/Tech; Complete Time: 04:25 [facility] 05/12 04:24 Order name: IV Saline Lock; Complete Time: 04:25 [facility] 05/12 04:24 Order name: Labs collected and sent; Complete Time: 04:26 [facility] 05/12 04:24 Order name: O2 Per Protocol; Complete Time: 04:25 [facility] 05/12 04:24 Order name: O2 Sat Monitoring; Complete Time: 04:25 [facility] 05/12 05:22 Order name: NT PRO-BNP; Complete Time: 06:53 EDMS 05/12 05:22 Order name: Magnesium; Complete Time: 06:52 EDMS Administered Medications: 05:08 Drug: Albuterol - atroVENT (3:1) (2.5 mg - 0.5 mg) 3 ml Route: Nebulizer; cc3 05:26 Follow up: Response: No adverse reaction jd3 05:17 Drug: Zofran 4 mg Route: IVP; Site: right wrist; cc3 06:15 Follow up: Response: No adverse reaction jd3 07:00 Drug: Tamiflu 75 mg Route: PO; jd3 07:15 Follow up: Response: No adverse reaction tw2 Disposition: 05/12/19 07:01 Discharged to Home. Impression: acute cough, shortness of breath, influenza illness. - Condition is Stable. - Discharge Instructions: Influenza, Adult, [id number]-[id number], Cough, Adult, [id number]. - Prescriptions for Tamiflu 75 mg Oral Capsule - take 1 tablet by ORAL route every 12 hours for 5 days; 10 tablet. Albuterol Sulfate 90 mcg/actuation - inhale 1-2 puff by INHALATION route every 4-6 hours; 1 Inhaler. - Medication Reconciliation Form, Thank You Letter, Antibiotic Education, Prescription Opioid Use form. - Follow up: Private Physician; When: 2 - 3 days; Reason: Re-evaluation by your physician. - Problem is new. - Symptoms have improved. - Notes: quit smoking. take medication as prescribed. return here if worsening Signatures: Dispatcher [employer] EDMyla Parada RN RN tw2 Varghese Sow MD MD wa Davies, Jonathon, RN RN jd3 Darlene Flores cc3 Corrections: (The following items were deleted from the chart) 07:17 07:01 05/12/2019 07:01 Discharged to Home. Impression: acute cough; shortness of tw2 breath; influenza illness. Condition is Stable. Forms are Medication Reconciliation Form, Thank You Letter, Antibiotic Education, Prescription Opioid Use. Follow up: Private Physician; When: 2 - 3 days; Reason: Re-evaluation by your physician. Problem is new. Symptoms have improved. woodrow
[2019-05-12 07:26] VITALS: TEMP 98.4
[2019-05-12 07:29] VITALS: BP 132/71; O2SAT 95
--- NOTE | 2019-05-12 09:14 | RAD REPORT ---
EXAM DESCRIPTION: RAD - Chest Single View - 05/12/2019 4:47 am CLINICAL HISTORY: Cough and congestion COMPARISON: April 28 TECHNIQUE: AP portable chest image was obtained [id number] hours . FINDINGS: Lungs are clear. Heart and vasculature are normal. No measurable pleural effusion and no p neumothorax. No acute bony abnormality seen. No acute aortic findings suspected. IMPRESSION: No acute cardiopulmonary process.
--- NOTE | 2019-05-13 12:47 | EKG ---
Test Date: 2019-05-12 Test Time: 04:17:05 Record Retrieval Specialist: SILVIA MEASUREMENT RESULTS: Intervals: Rate: 92 SD: 144 QRSD: 102 QT: 338 QTc: 417 [place]: P: 57 SD: 144 QRS: 85 T: -35 INTERPRETIVE STATEMENTS: Normal sinus rhythm Possible Anterior infarct, age undetermined ST & T wave abnormality, consider inferior ischemia Abnormal ECG Compared to ECG 04/29/2019 13:11:28 Myocardial infarct finding now present ST (T wave) deviation now present Possible ischemia now present Ventricular premature complex(es) no longer present Left bundle-branch block no longer present Electronically Signed On 05-13-19 12:45:18 HARDBOARD PANEL PRINTER by Nazario Anderson
--- OUTSIDE RECORDS SUMMARY | 2019-05-14 06:09 | XMS REPORT ---
:1965 [facility] Address [address] [place] [address] Dr. Fierro [address] [place] [id number] Care Team Providers Name Role Phone Unavailable Unavailable Unavailable Problems This patient has no known problems. Allergies, Adverse Reactions, Alerts This patient has no known allergies or adverse reactions. Medications This patient has no known medications.
== END 2019-05-12 07:17 | disposition home or self-care (01) ==
LOC: ER 03:40
DX: J11.1 Influenza due to unidentified influenza virus with other respiratory manifestations (principal); R06.02 Shortness of breath; I10 Essential (primary) hypertension; E11.9 Type 2 diabetes mellitus without complications; J44.9 Chronic obstructive pulmonary disease, unspecified; E78.00 Pure hypercholesterolemia, unspecified; I25.2 Old myocardial infarction; F17.210 Nicotine dependence, cigarettes, uncomplicated; Z79.82 Long term (current) use of aspirin; Z88.1 Allergy status to other antibiotic agents; Z88.8 Allergy status to other drugs, medicaments and biological substances
CPT/HCPCS: 36415; 71045; 80048; 80076; 83735; 83880; 84484; 85025; 85610; 87804; 93005; 94640; 96374; 99284; J2405

== ENCOUNTER 2019-05-14 09:21 | Emergency (ER) | payer SELFPAY ==
--- OUTSIDE RECORDS SUMMARY | 2019-05-14 09:26 | XMS REPORT ---
:1965 [facility] Address [address] [place] [address] Dr. Fierro [address] [place] [id number] Care Team Providers Name Role Phone Unavailable Unavailable Unavailable Problems This patient has no known problems. Allergies, Adverse Reactions, Alerts This patient has no known allergies or adverse reactions. Medications This patient has no known medications.
--- NOTE | 2019-05-14 10:47 | RAD REPORT ---
EXAM DESCRIPTION: RAD - Chest Pa And Lat (2 Views) - 05/14/2019 10:38 am CLINICAL HISTORY: SOB COMPARISON: May 12 TECHNIQUE: PA and lateral views of the chest were obtained. FINDINGS: The lungs are slightly underinflated. Perihilar and lung base interstitial markings are in creased over the comparison. No dense consolidation at this time. Trachea is midline. Heart size is normal and central vasculature is within normal limits. No pleural effusion or pneumothorax seen. No acute bony finding noted. No aortic abnormality. IMPRESSION: Perihilar and lung base interstitial edema or interstitial infiltrate pattern.
--- NOTE | 2019-05-14 10:56 | ER ---
Nurse's Notes [facility] Name: Juan Miguel Langston Age: 53 yrs Sex: Male : 1965 Arrival Date: 05/14/2019 Time: 09:24 Bed 8 Private MD: None, None Diagnosis: Pneumonia, unspecified organism;Influenza due to certain identified influenza viruses Presentation: 05/14 09:39 Presenting complaint: Patient states: checked BP at [facility], it was 197/105 , was diagnosed iw with the Flu on Tuesday, got SOB when lying down, feels hot from feet to head, is worried about BP. Transition of care: patient was not received from another setting of care. Onset of symptoms was May 14, 2019. Risk Assessment: Do you want to hurt yourself or someone else? Patient reports no desire to harm self or others. Initial Sepsis Screen: Does the patient meet any 2 criteria? No. Patient's initial sepsis screen is negative. Does the patient have a suspected source of infection? No. Patient's initial sepsis screen is negative. Care prior to arrival: None. 09:39 Method Of Arrival: Ambulatory iw 09:39 Acuity: DESTINY 3 iw Historical: - Allergies: 09:41 Azithromycin; iw 09:41 Metoprolol Tartrate; iw - Home Meds: 09:43 aspirin 81 mg Oral TbEC [Active]; iw - PMHx: 09:43 Angina; COPD; Diabetes - NIDDM; High Cholesterol; Hypertension; Myocardial infarction; iw Sleep Apnea; - PSHx: 09:43 heart cath; iw - Immunization history:: Adult Immunizations. - Social history:: Smoking status: Patient uses tobacco products, 3-4 cigarettes per day . - Ebola Screening: : Patient negative for fever greater than or equal to 101.5 degrees Fahrenheit, and additional compatible Ebola Virus Disease symptoms Patient denies exposure to infectious person Patient denies travel to an Ebola-affected area in the 21 days before illness onset No symptoms or risks identified at this time. Screenin:58 Abuse screen: Denies threats or abuse. Denies injuries from another. Nutritional ca1 screening: No deficits noted. Tuberculosis screening: No symptoms or risk factors identified. Fall Risk None identified. Assessment: 09:58 General: Appears in no apparent distress. comfortable, Behavior is calm, cooperative, ca1 appropriate for age. Pain: Complains of pain in chest Pain does not radiate. Pain currently is 10 out of 10 on a pain scale. Quality of pain is described as heavy, pressure. Neuro: Level of Consciousness is awake, alert, obeys commands, Oriented to person, place, time, situation, Appropriate for age. Cardiovascular: Heart tones S1 S2 present Capillary refill < 3 seconds Patient's skin is warm and dry. Respiratory: Reports cough that is non-productive, since Airway is patent Respiratory effort is even, unlabored, Respiratory pattern is regular, symmetrical, Breath sounds are clear bilaterally. GI: Abdomen is round non-distended, Bowel sounds present X 4 quads. Abd is soft and non tender X 4 quads. : No deficits noted. No signs and/or symptoms were reported regarding the genitourinary system. EENT: Reports nasal congestion since . Derm: Skin is intact, is healthy with good turgor, Skin is pink, warm \T\ dry. Musculoskeletal: Circulation, motion, and sensation intact. Capillary refill < 3 seconds. 11:02 Reassessment: Patient appears in no apparent distress at this time. Patient is alert, ca1 oriented x 3, equal unlabored respirations, skin warm/dry/pink. Vital Signs: 09:44 BP 165 / 80; Pulse 106; Resp 24 S; Temp 99.7; Pulse Ox 93% ; Pain 10/10; iw 10:24 BP 159 / 90; Pulse 95; Resp 17; Pulse Ox 95% on R/A; tw2 11:00 BP 156 / 69; Pulse 94; Resp 17; Pulse Ox 95% on R/A; tw2 11:02 BP 156 / 69; Pulse 92; Resp 19; Temp 98.3(O); Pulse Ox 100% on R/A; ca1 ED Course: 09:24 Patient arrived in ED. ag5 09:24 None, None is Private Physician. ag5 09:37 Love Martinez F[facility]-C [facility]. kb 09:37 Nate Donald MD is Attending Physician. kb 09:41 Triage completed. iw 09:44 Arm band placed on. iw 09:54 Khadijah Miranda, RN is Primary Nurse. ca1 09:58 Patient has correct armband on for positive identification. Bed in low position. Call ca1 light in reach. Side rails up X 1. Pulse ox on. NIBP on. Warm blanket given. 10:40 Chest Pa And Lat (2 Views) XRAY In Process Unspecified. EDMS 11:03 No provider procedures requiring assistance completed. Patient did not have IV access ca1 during this emergency room visit. Administered Medications: 10:58 Drug: LevaQUIN 500 mg Route: PO; ca1 11:02 Follow up: Response: Medication administered at discharge. ca1 Outcome: 10:56 Discharge ordered by . [place] 11:03 Discharged to home ambulatory. ca1 11:03 Condition: stable 11:03 Discharge instructions given to patient, Instructed on discharge instructions, follow up and referral plans. medication usage, Demonstrated understanding of instructions, follow-up care, medications, Prescriptions given X 1. 11:04 Patient left the ED. ca1 Signatures: Dispatcher [employer] EDMS Love Martinez, LAUNDRY WORKER-C LAUNDRY WORKER-CkAdeline Monroe, RN RN iw Myla Shelton RN RN tw2 Khadijah Miranda RN RN ca1 Lilibeth Nolbe ag5 Corrections: (The following items were deleted from the chart) 09:41 09:39 Presenting complaint: Patient states: checked BP at [facility], it was 197/105 , was iw diagnosed with the Flu on Tuesday, got SOB when lying down, feels pain from feet to head, is worried about BP iw 09:44 09:44 BP 165 / 80; Pulse 106bpm; Resp 24bpm; Spontaneous; Pulse Ox 93%; Temp 99.7F; iw Pain 10/10; iw
--- NOTE | 2019-05-14 10:56 | EDPHYS ---
Physician Documentation [facility] Name: Juan Miguel Langston Age: 53 yrs Sex: Male : 1965 Arrival Date: 05/14/2019 Time: 09:24 Bed 8 Private MD: None, None ED Physician Nate Donald HPI: 05/14 10:29 This 53 yrs old Male presents to ER via Ambulatory with complaints of Flu kb Symptoms. 10:29 The patient or guardian reports difficulty breathing, flu symptoms, myalgias. Onset: kb The symptoms/episode began/occurred today. Severity of symptoms: At their worst the symptoms were moderate, in the emergency department the symptoms have improved. Modifying factors: The symptoms are alleviated by nothing, the symptoms are aggravated by laying down. Associated signs and symptoms: The patient has no apparent associated signs or symptoms. The patient has experienced similar episodes in the past. The patient has been recently seen at the [facility] Emergency Department, this week, for similar complaints. Pt reports he was recently diagnosed with the flu. States he has had shortness of breath when he lays down since being diagnosed. Reports he checked his bp and it was high so he came in because it worried him. Reports history of hypertension that is not well controlled. Educated on need for medication adjustment if hypertension is not being controlled with current therapy. Pt reports he is supposed to see a quill reamer soon to have that taken care of. . Historical: - Allergies: 09:41 Azithromycin; iw 09:41 Metoprolol Tartrate; iw - Home Meds: 09:43 aspirin 81 mg Oral TbEC [Active]; iw - PMHx: 09:43 Angina; COPD; Diabetes - NIDDM; High Cholesterol; Hypertension; Myocardial infarction; iw Sleep Apnea; - PSHx: 09:43 heart cath; iw - Immunization history:: Adult Immunizations. - Social history:: Smoking status: Patient uses tobacco products, 3-4 cigarettes per day . - Ebola Screening: : Patient negative for fever greater than or equal to 101.5 degrees Fahrenheit, and additional compatible Ebola Virus Disease symptoms Patient denies exposure to infectious person Patient denies travel to an Ebola-affected area in the 21 days before illness onset No symptoms or risks identified at this time. ROS: 10:28 ENT: Negative for injury, pain, and discharge, Neck: Negative for injury, pain, and kb swelling, Cardiovascular: Negative for chest pain, palpitations, and edema, Abdomen/GI: Negative for abdominal pain, nausea, vomiting, diarrhea, and constipation, Back: Negative for injury and pain, : Negative for injury, bleeding, discharge, and swelling, MS/Extremity: Negative for injury and deformity, Skin: Negative for injury, rash, and discoloration, Neuro: Negative for headache, weakness, numbness, tingling, and seizure. 10:28 Constitutional: Positive for body aches. 10:28 Respiratory: Positive for shortness of breath. Exam: 10:28 Constitutional: This is a well developed, well nourished patient who is awake, alert, kb and in no acute distress. Head/Face: Normocephalic, atraumatic. ENT: Nares patent. No nasal discharge, no septal abnormalities noted. Tympanic membranes are normal and external auditory canals are clear. Oropharynx with no redness, swelling, or masses, exudates, or evidence of obstruction, uvula midline. Mucous membranes moist. Neck: Trachea midline, no thyromegaly or masses palpated, and no cervical lymphadenopathy. Supple, full range of motion without nuchal rigidity, or vertebral point tenderness. No Meningismus. Chest/axilla: Normal chest wall appearance and motion. Nontender with no deformity. No lesions are appreciated. Cardiovascular: Regular rate and rhythm with a normal S1 and S2. No gallops, murmurs, or rubs. Normal PMI, no JVD. No pulse deficits. Respiratory: Lungs have equal breath sounds bilaterally, clear to auscultation and percussion. No rales, rhonchi or wheezes noted. No increased work of breathing, no retractions or nasal flaring. Abdomen/GI: Soft, non-tender, with normal bowel sounds. No distension or tympany. No guarding or rebound. No evidence of tenderness throughout. Skin: Warm, dry with normal turgor. Normal color with no rashes, no lesions, and no evidence of cellulitis. MS/ Extremity: Pulses equal, no cyanosis. Neurovascular intact. Full, normal range of motion. Neuro: Awake and alert, GCS 15, oriented to person, place, time, and situation. Cranial nerves II-XII grossly intact. Motor strength 5/5 in all extremities. Sensory grossly intact. Cerebellar exam normal. Normal gait. Vital Signs: 09:44 BP 165 / 80; Pulse 106; Resp 24 S; Temp 99.7; Pulse Ox 93% ; Pain 10/10; iw 10:24 BP 159 / 90; Pulse 95; Resp 17; Pulse Ox 95% on R/A; tw2 11:00 BP 156 / 69; Pulse 94; Resp 17; Pulse Ox 95% on R/A; tw2 11:02 BP 156 / 69; Pulse 92; Resp 19; Temp 98.3(O); Pulse Ox 100% on R/A; ca1 MDM: 09:46 Patient medically screened. kb 10:28 Data reviewed: vital signs, nurses notes. Data interpreted: Pulse oximetry: on room air kb is 95 %. Interpretation: normal. 10:54 Counseling: I had a detailed discussion with the patient and/or guardian regarding: the kb historical points, exam findings, and any diagnostic results supporting the discharge/admit diagnosis, radiology results, the need for outpatient follow up, a family practitioner, to return to the emergency department if symptoms worsen or persist or if there are any questions or concerns that arise at home. 05/14 10:17 Order name: Chest Pa And Lat (2 Views) XRAY; Complete Time: 10:53 kb Administered Medications: 10:58 Drug: LevaQUIN 500 mg Route: PO; ca1 11:02 Follow up: Response: Medication administered at discharge. ca1 Disposition: 15:57 Co-signature as Attending Physician, Nate Donald MD. rn Disposition: 05/14/19 10:56 Discharged to Home. Impression: Pneumonia, unspecified organism, Influenza due to certain identified influenza viruses. - Condition is Stable. - Discharge Instructions: Community-Acquired Pneumonia, Adult, [id number], Influenza, Adult, Gqll-ie-[id number]. - Prescriptions for Levaquin 500 mg Oral Tablet - take 1 tablet by ORAL route once daily for 10 days; 10 tablet. - Medication Reconciliation Form, Thank You Letter, Antibiotic Education, Prescription Opioid Use form. - Follow up: Emergency Department; When: As needed; Reason: Worsening of condition. Follow up: Private Physician; When: 2 - 3 days; Reason: Recheck today's complaints, Continuance of care, Re-evaluation by your physician. Signatures: Dispatcher [employer] Love Vieira FNP-C FNP-Irasema Jonesne, RN RN iw Nate Donald MD MD rn Acob, Khadijah, RN RN ca1 Corrections: (The following items were deleted from the chart) 11:04 10:56 05/14/2019 10:56 Discharged to Home. Impression: Pneumonia, unspecified organism; ca1 Influenza due to certain identified influenza viruses. Condition is Stable. Forms are Medication Reconciliation Form, Thank You Letter, Antibiotic Education, Prescription Opioid Use. Follow up: Emergency Department; When: As needed; Reason: Worsening of condition. Follow up: Private Physician; When: 2 - 3 days; Reason: Recheck today's complaints, Continuance of care, Re-evaluation by your physician. kb
[2019-05-14] MEDS ORDERED: levoFLOXacin 500 MG TAB ONE (10:58)
[2019-05-14 11:18] VITALS: BP 156/69
[2019-05-14 11:19] VITALS: TEMP 98.3; O2SAT 100
== END 2019-05-14 11:04 | disposition home or self-care (01) ==
LOC: ER 09:21
DX: J18.9 Pneumonia, unspecified organism (principal); J10.1 Influenza due to other identified influenza virus with other respiratory manifestations; Z88.3 Allergy status to other anti-infective agents; Z88.8 Allergy status to other drugs, medicaments and biological substances; F17.210 Nicotine dependence, cigarettes, uncomplicated
CPT/HCPCS: 71046

== ENCOUNTER 2019-06-21 14:55 | Emergency (ER) | payer SELFPAY ==
--- OUTSIDE RECORDS SUMMARY | 2019-06-21 14:59 | XMS REPORT ---
:1965 [facility] [address] [place] [address] Dr. Fierro [address] [place] [id number] Care Team Providers Name Role Phone Unavailable Unavailable Unavailable Problems This patient has no known problems. Allergies, Adverse Reactions, Alerts This patient has no known allergies or adverse reactions. Medications This patient has no known medications.
[2019-06-21 15:51] LABS: Absolute Lymphocytes (CBC) 1.6 K/uL (0.7-4.9); Hematocrit 43.4 % (39.6-49.0); Lymphocytes % 19.5 % (15.3-44.8); MPV 9.1 fL (7.6-11.3); RBC Red Blood Cell Count 5.02 M/uL (4.33-5.43)
[2019-06-21 15:55] LABS: Protime INR 1.01
--- NOTE | 2019-06-21 16:00 | RAD REPORT ---
EXAM DESCRIPTION: RAD - Chest Single View - 06/21/2019 3:37 pm CLINICAL HISTORY: COUGH Chest pain. COMPARISON: Chest Pa And Lat (2 Views) dated 05/14/2019; Chest Single View dated 05/12/2019; Chest Si ngle View dated 04/28/2019; Chest Pa And Lat (2 Views) dated 04/01/2019 FINDINGS: Portable technique limits examination quality. The lungs are grossly clear. The heart is normal in size. No displaced fractures. IMPRESSION: No acute intrathoracic process suspected.
[2019-06-21 16:14] LABS: ALT/SGPT 61 U/L (12-78); AST/SGOT 21 U/L (15-37); Albumin 3.5 g/dL (3.4-5.0); Alkaline Phosphatase 58 U/L (45-117); BUN Blood Urea Nitrogen 16 mg/dL (7-18); Bicarbonate 28 mmol/L (21-32); Bilirubin Direct < 0.1 mg/dL (0-0.2); Bilirubin Total 0.2 mg/dL (0.2-1.0); Glucose Level 136 mg/dL (74-106); Magnesium 2.1 mg/dL (1.8-2.4); NT PRO-BNP 29 pg/mL (<125); Protein, Total 6.9 g/dL (6.4-8.2); Sodium Level 139 mmol/L (136-145); Troponin (Emerg Dept Use Only) < 0.02 ng/mL (0.0-0.045)
[2019-06-21] MEDS ORDERED: LEVALBUTEROL 1.25 MG/3 ML NEB ONE (16:18)
--- NOTE | 2019-06-21 17:18 | RAD REPORT ---
EXAM DESCRIPTION: CT - Chest For Pe Angio - 06/21/2019 5:05 pm CLINICAL HISTORY: Chest pain. HEMOPTYSIS COMPARISON: Chest For Pe Angio dated 08/02/2017; CTANGIO CHEST FOR PE dated 06/27/2014 TECHNIQUE: CT angiogram of the pulmonary arteries was performed with MIP. All CT scans are performed using dose optimization technique as appropriate and may include automated exposure control or mA/KV adjustment according to patient size. FINDINGS: No evidence of pulmonary thromboembolism. No acute aortic finding demonstrated. The lungs are clear of acute infiltrate. 5 mm nodule in the right lung appears stable since 2013, spike s compatible with a benign nodule. No significant pericardial or pleural fluid. No concerning bony finding. IMPRESSION: No evidence of pulmonary thromboembolism. No acute lung findings.
--- NOTE | 2019-06-21 17:33 | ER ---
Nurse's Notes [facility] Name: Juan Miguel Langston Age: 53 yrs Sex: Male : 1965 Arrival Date: 06/21/2019 Time: 15:00 Bed 16 Private MD: Diagnosis: Hemoptysis Presentation: 06/21 15:07 Presenting complaint: Patient states: coughing up blood that began 30 minutes ago. ss Transition of care: patient was not received from another setting of care. Onset of symptoms was June 21, 2019. Risk Assessment: Do you want to hurt yourself or someone else? Patient reports no desire to harm self or others. Initial Sepsis Screen: Does the patient meet any 2 criteria? HR > 90 bpm. Does the patient have a suspected source of infection? No. Patient's initial sepsis screen is negative. Care prior to arrival: None. 15:07 Method Of Arrival: Ambulatory ss 15:07 Acuity: DESTINY 3 ss Historical: - Allergies: 15:08 Azithromycin; ss 15:08 Metoprolol Tartrate; ss - PMHx: 15:08 Angina; COPD; Diabetes - NIDDM; High Cholesterol; Hypertension; Myocardial infarction; ss Sleep Apnea; - PSHx: 15:08 heart cath; ss - Immunization history:: Adult Immunizations up to date. - Social history:: Smoking status: Patient uses tobacco products, "e cig". - Ebola Screening: : Patient denies exposure to infectious person Patient denies travel to an Ebola-affected area in the 21 days before illness onset. Screenin:15 Abuse screen: Denies threats or abuse. Denies injuries from another. Nutritional ca1 screening: No deficits noted. Tuberculosis screening: No symptoms or risk factors identified. Fall Risk IV access (20 points). Assessment: 15:15 General: Appears in no apparent distress. comfortable, Behavior is calm, cooperative, ca1 appropriate for age. Pain: Denies pain. Neuro: Level of Consciousness is awake, alert, obeys commands, Oriented to person, place, time, situation, Appropriate for age. Cardiovascular: Heart tones S1 S2 present Capillary refill < 3 seconds Patient's skin is warm and dry. Respiratory: Reports cough that is persistent blood with phlegm Airway is patent Respiratory effort is even, unlabored, Respiratory pattern is regular, symmetrical, Breath sounds are clear bilaterally. GI: Abdomen is round non-distended, Bowel sounds present X 4 quads. Abd is soft and non tender X 4 quads. : No deficits noted. No signs and/or symptoms were reported regarding the genitourinary system. EENT: No deficits noted. No signs and/or symptoms were reported regarding the EENT system. Derm: Skin is intact, is healthy with good turgor, Skin is pink, warm \\T\\ dry. Musculoskeletal: Circulation, motion, and sensation intact. Capillary refill < 3 seconds, Range of motion: intact in all extremities. 16:34 Reassessment: Patient appears in no apparent distress at this time. Patient and/or ca1 family updated on plan of care and expected duration. Pain level reassessed. Patient is alert, oriented x 3, equal unlabored respirations, skin warm/dry/pink. 17:59 Reassessment: Patient appears in no apparent distress at this time. Patient and/or ph family updated on plan of care and expected duration. Pain level reassessed. Patient is alert, oriented x 3, equal unlabored respirations, skin warm/dry/pink. Pt d/c home w/ SO. Vital Signs: 15:08 BP 159 / 59; Pulse 103; Resp 22; Temp 98.5(TE); Pulse Ox 98% on R/A; Weight 117.03 kg; ss Height 5 ft. 6 in. (167.64 cm); Pain 9/10; 16:34 BP 137 / 61; Pulse 88; Resp 19 S; Pulse Ox 99% on Nebulizer Mask; ca1 18:00 BP 138 / 72; Pulse 87; Resp 18; Temp 98.0; Pulse Ox 98% on R/A; ph 15:08 Body Mass Index 41.64 (117.03 kg, 167.64 cm) ED Course: 15:00 Patient arrived in ED. as 15:05 Carlito Guerrero PA is PHCP. jmm 15:05 Nate Donald MD is Attending Physician. [facility] 15:08 Triage completed. ss 15:08 Arm band placed on right wrist. ss 15:15 No provider procedures requiring assistance completed. ca1 15:23 Khadijah Miranda, RN is Primary Nurse. ca1 15:37 XRAY Chest (1 view) In Process Unspecified. EDMS 15:45 Initial lab(s) drawn, by me, sent to lab. Inserted saline lock: 20 gauge in left 5 forearm, using aseptic technique. Blood collected. 15:46 Basic Metabolic Panel Sent. [facility] 15:46 CBC with Diff Sent. [facility] 15:46 LFT's Sent. [facility] 15:46 Magnesium Sent. [facility] 15:46 NT PRO-BNP Sent. [facility] 15:46 PT-INR Sent. [facility] 15:46 Troponin (emerg Dept Use Only) Sent. [facility] 15:47 Patient has correct armband on for positive identification. Placed in gown. Bed in low mh5 position. hand sprayer on. Pulse ox on. NIBP on. 17:07 CT Chest For PE Angio In Process Unspecified. EDMS 17:59 IV discontinued, intact, bleeding controlled, No redness/swelling at site. Pressure ph dressing applied. Administered Medications: 16:13 Drug: Xopenex (3) 1.25 mg Route: Inhalation; ca1 17:59 Follow up: Response: No adverse reaction ph Outcome: 17:33 Discharge ordered by MD. judy 17:59 Discharged to home ambulatory, with significant other. ph 17:59 Condition: good 17:59 Discharge instructions given to patient, Instructed on discharge instructions, follow up and referral plans. Demonstrated understanding of instructions, follow-up care. 18:00 Patient left the ED. ph Signatures: Dispatcher [employer] EDMS Carlito Guerrero PA PA jmm Martinez, Amelia as Smirch, Shelby, RN RN Frida Leyva RN RN ph Fátima Morrow [facility] Khadijah Miranda RN RN ca1
--- NOTE | 2019-06-21 17:34 | EDPHYS ---
Physician Documentation [facility] Name: Juan Miguel Langston Age: 53 yrs Sex: Male : 1965 Arrival Date: 06/21/2019 Time: 15:00 Bed 16 Private MD: ED Physician Nate Donald HPI: 06/21 15:20 This 53 yrs old Male presents to ER via Ambulatory with complaints of Cough - jmm blood. 15:20 The patient or guardian reports cough. Onset: The symptoms/episode began/occurred jm today. Modifying factors: The symptoms are alleviated by nothing, the symptoms are aggravated by nothing. Associated signs and symptoms: Pertinent negatives: fever, vomiting. This is a 53 year old male with a history of angina, dm, copd, hlp, htn, that presents to the ED with complaints of coughing a blood clot, patient denies shortness of breath or chest pain. Patient admits to tobacco use. . Historical: - Allergies: 15:08 Azithromycin; ss 15:08 Metoprolol Tartrate; ss - PMHx: 15:08 Angina; COPD; Diabetes - NIDDM; High Cholesterol; Hypertension; Myocardial infarction; ss Sleep Apnea; - PSHx: 15:08 heart cath; ss - Immunization history:: Adult Immunizations up to date. - Social history:: Smoking status: Patient uses tobacco products, "e cig". - Ebola Screening: : Patient denies exposure to infectious person Patient denies travel to an Ebola-affected area in the 21 days before illness onset. Vital Signs: 15:08 BP 159 / 59; Pulse 103; Resp 22; Temp 98.5(TE); Pulse Ox 98% on R/A; Weight 117.03 kg; ss Height 5 ft. 6 in. (167.64 cm); Pain 9/10; 16:34 BP 137 / 61; Pulse 88; Resp 19 S; Pulse Ox 99% on Nebulizer Mask; ca1 18:00 BP 138 / 72; Pulse 87; Resp 18; Temp 98.0; Pulse Ox 98% on R/A; ph 15:08 Body Mass Index 41.64 (117.03 kg, 167.64 cm) MDM: 15:20 [facility] medically screened. [facility] 17:32 Data reviewed: vital signs, nurses notes. Counseling: I had a detailed discussion with judy the patient and/or guardian regarding: the historical points, exam findings, and any diagnostic results supporting the discharge/admit diagnosis, radiology results, the need for outpatient follow up, to return to the emergency department if symptoms worsen or persist or if there are any questions or concerns that arise at home. 06/21 15:25 Order name: Basic Metabolic Panel; Complete Time: 16:41 [facility] 06/21 15:25 Order name: CBC with Diff [facility] 06/21 15:25 Order name: LFT's; Complete Time: 16:41 [facility] 06/21 15:25 Order name: Magnesium; Complete Time: 16:41 [facility] 06/21 15:25 Order name: NT PRO-BNP; Complete Time: 16:41 [facility] 06/21 15:25 Order name: PT-INR; Complete Time: 16:04 [facility] 06/21 15:25 Order name: Troponin (emerg Dept Use Only); Complete Time: 16:41 [facility] 06/21 15:25 Order name: XRAY Chest (1 view); Complete Time: 16:12 [facility] 06/21 15:25 Order name: EKG; Complete Time: 15:26 [facility] 06/21 15:25 Order name: Cardiac monitoring; Complete Time: 15:47 [facility] 06/21 15:25 Order name: EKG - Nurse/Tech; Complete Time: 15:46 [facility] 06/21 15:25 Order name: IV Saline Lock; Complete Time: 15:46 [facility] 06/21 16:12 Order name: CT Chest For PE Angio; Complete Time: 17:28 [facility] 06/21 15:25 Order name: Labs collected and sent; Complete Time: 15:46 [facility] 06/21 15:25 Order name: O2 Per Protocol; Complete Time: 16:12 [facility] 06/21 15:25 Order name: O2 Sat Monitoring; Complete Time: 16:12 [facility] Administered Medications: 16:13 Drug: Xopenex (3) 1.25 mg Route: Inhalation; ca1 17:59 Follow up: Response: No adverse reaction ph Disposition: 18:00 Co-signature as Attending Physician, Nate Donald MD. rn Disposition: 06/21/19 17:33 Discharged to Home. Impression: Hemoptysis. - Condition is Stable. - Discharge Instructions: Hemoptysis. - Medication Reconciliation Form, Thank You Letter, Antibiotic Education, Prescription Opioid Use form. - Follow up: Private Physician; When: 2 - 3 days; Reason: Recheck today's complaints, Continuance of care, Re-evaluation by your physician. Addendum: 07/09/2019 14:52 Addendum: ROS: Postive for cough, hemoptysis. Otherwise negative. PE: GEN-NAD, Cardio - j mm RRR, Resp - CTA bilaterally, Abd - Soft, Back - Normal ROM, Extremities - FROM appreciated, HEENT - WNL, Neuro - A x o x 3. Psych -Calm behavior. Signatures: Dispatcher [employer] EDMS Carlito Guerrero PA PA jmm Nieto, Roman, MD MD rn Smirch, Shelby, RN RN ss Hall, Patricia, RN RN ph Khadijah Miranda RN RN ca1 Corrections: (The following items were deleted from the chart) 06/21 18:00 17:33 06/21/2019 17:33 Discharged to Home. Impression: Hemoptysis. Condition is Stable. ph Forms are Medication Reconciliation Form, Thank You Letter, Antibiotic Education, Prescription Opioid Use. Follow up: Private Physician; When: 2 - 3 days; Reason: Recheck today's complaints, Continuance of care, Re-evaluation by your physician. judy
[2019-06-21 18:25] VITALS: BP 138/72; TEMP 98; O2SAT 98
--- NOTE | 2019-06-22 16:35 | EKG ---
Test Date: 2019-06-21 Test Time: 22:39:24 Advertising Associate: RR MEASUREMENT RESULTS: Intervals: Rate: 87 MA: 140 QRSD: 108 QT: 356 QTc: 428 [place]: P: 69 MA: 140 QRS: 85 T: -64 INTERPRETIVE STATEMENTS: Normal sinus rhythm ST & T wave abnormality, consider inferolateral ischemia Abnormal ECG Compared to ECG 06/21/2019 16:23:48 Possible ischemia now present ST (T wave) deviation still present Electronically Signed On 06-22-19 16:34:01 TAX COLLECTION COORDINATOR by Nazario Anderson
--- NOTE | 2019-06-22 16:36 | EKG ---
Test Date: 2019-06-21 Test Time: 16:23:48 Wire Stockkeeper: YAS MEASUREMENT RESULTS: Intervals: Rate: 76 UT: 142 QRSD: 98 QT: 370 QTc: 416 [place]: P: 45 UT: 142 QRS: 65 T: 17 INTERPRETIVE STATEMENTS: Normal sinus rhythm Nonspecific ST and T wave abnormality Abnormal ECG Compared to ECG 05/12/2019 04:17:05 Myocardial infarct finding no longer present Possible ischemia no longer present ST (T wave) deviation still present Electronically Signed On 06-22-19 16:34:09 CIVILIAN TECHNICIAN by Nazario Anderson
== END 2019-06-21 18:00 | disposition home or self-care (01) ==
LOC: ER 14:55
DX: R04.2 Hemoptysis (principal); I10 Essential (primary) hypertension; I25.2 Old myocardial infarction; F17.290 Nicotine dependence, other tobacco product, uncomplicated; Z88.3 Allergy status to other anti-infective agents; Z88.8 Allergy status to other drugs, medicaments and biological substances
CPT/HCPCS: 36415; 71045; 71275; 80048; 80076; 83735; 83880; 84484; 85025; 85610; 93005; 99285; Q9967

== ENCOUNTER 2019-06-21 21:47 | Inpatient (IN) | payer SELFPAY ==
--- OUTSIDE RECORDS SUMMARY | 2019-06-21 21:50 | XMS REPORT ---
:1965 [facility] Address [address] [place] [address] Dr. Fierro [address] [place] [id number] Care Team Providers Name Role Phone Unavailable Unavailable Unavailable Problems This patient has no known problems. Allergies, Adverse Reactions, Alerts This patient has no known allergies or adverse reactions. Medications This patient has no known medications.
[2019-06-21] MEDS ORDERED: ALBUTEROL 2.5 MG/3 ML NEB SOL ONE (22:25)
[2019-06-21] MEDS ORDERED: IPRATROPIUM BROM 0.5MG/2.5ML ONE (22:25)
[2019-06-21 22:45] LABS: Absolute Lymphocytes (CBC) 1.4 K/uL (0.7-4.9); Basophils % 0.5 % (0-1.3); Hematocrit 40.1 % (39.6-49.0); Lymphocytes % 20.5 % (15.3-44.8); MPV 9.4 fL (7.6-11.3); RBC Red Blood Cell Count 4.65 M/uL (4.33-5.43)
[2019-06-21 22:48] LABS: Protime INR 1.04
[2019-06-21 23:00] LABS: ALT/SGPT 66 U/L (12-78); AST/SGOT 9 U/L (15-37); Albumin 3.5 g/dL (3.4-5.0); Alkaline Phosphatase 55 U/L (45-117); BUN Blood Urea Nitrogen 18 mg/dL (7-18); Bicarbonate 31 mmol/L (21-32); Bilirubin Direct < 0.1 mg/dL (0-0.2); Bilirubin Total 0.2 mg/dL (0.2-1.0); Glucose Level 167 mg/dL (74-106); Magnesium 1.9 mg/dL (1.8-2.4); NT PRO-BNP 24 pg/mL (<125); Potassium 4.2 mmol/L (3.5-5.1); Protein, Total 7.5 g/dL (6.4-8.2); Sodium Level 141 mmol/L (136-145); Troponin (Emerg Dept Use Only) < 0.02 ng/mL (0.0-0.045)
--- NOTE | 2019-06-21 23:24 | EDPHYS ---
Physician Documentation [facility] Name: Juan Miguel Langston Age: 53 yrs Sex: Male : 1965 Arrival Date: 06/21/2019 Time: 21:50 Bed 8 Private MD: ED Physician Hans Richards HPI: 06/21 23:27 This 53 yrs old Male presents to ER via EMS with complaints of coughing out tw4 blood. 23:27 The patient or guardian reports cough, with productive sputum, that is bloody. Onset: tw4 The symptoms/episode began/occurred today. Severity of symptoms: At their worst the symptoms were moderate, in the emergency department the symptoms are unchanged. Severity of symptoms: in the emergency department the symptoms are unchanged. Modifying factors: The symptoms are alleviated by nothing, the symptoms are aggravated by nothing. Associated signs and symptoms: The patient has no apparent associated signs or symptoms. The patient has not experienced similar symptoms in the past. The patient has been recently seen at the [facility] Emergency Department, today. Historical: - Allergies: 21:55 Azithromycin; rr5 21:55 Metoprolol Tartrate; rr5 - Home Meds: 21:55 aspirin 81 mg Oral TbEC [Active]; rr5 - PMHx: 21:55 Angina; COPD; Diabetes - NIDDM; High Cholesterol; Hypertension; Myocardial infarction; rr5 Sleep Apnea; - Immunization history:: Adult Immunizations unknown. - Social history:: Smoking status: Patient uses tobacco products. - Ebola Screening: : Patient negative for fever greater than or equal to 101.5 degrees Fahrenheit, and additional compatible Ebola Virus Disease symptoms Patient denies exposure to infectious person Patient denies travel to an Ebola-affected area in the 21 days before illness onset. ROS: 23:27 Constitutional: Negative for fever, chills, and weight loss, Eyes: Negative for injury, tw4 pain, redness, and discharge, Cardiovascular: Negative for chest pain, palpitations, and edema, Abdomen/GI: Negative for abdominal pain, nausea, vomiting, diarrhea, and constipation, Back: Negative for injury and pain, MS/Extremity: Negative for injury and deformity, Skin: Negative for injury, rash, and discoloration, Neuro: Negative for headache, weakness, numbness, tingling, and seizure. 23:27 Respiratory: Positive for cough, "sounds productive", hemoptysis, shortness of breath, at rest. wheezing, Negative for orthopnea, pleurisy. Exam: 23:27 Head/Face: Normocephalic, atraumatic. Chest/axilla: Normal chest wall appearance and tw4 motion. Nontender with no deformity. No lesions are appreciated. Cardiovascular: Regular rate and rhythm with a normal S1 and S2. No gallops, murmurs, or rubs. Normal PMI, no JVD. No pulse deficits. Abdomen/GI: Soft, non-tender, with normal bowel sounds. No distension or tympany. No guarding or rebound. No evidence of tenderness throughout. Back: No spinal tenderness. No costovertebral tenderness. Full range of motion. MS/ Extremity: Pulses equal, no cyanosis. Neurovascular intact. Full, normal range of motion. Neuro: Awake and alert, GCS 15, oriented to person, place, time, and situation. Cranial nerves II-XII grossly intact. Motor strength 5/5 in all extremities. Sensory grossly intact. Cerebellar exam normal. Normal gait. 23:27 Constitutional: The patient appears dried red blood around mouth 23:27 Respiratory: mild respiratory distress is noted, Respirations: no acute changes, Breath sounds: wheezing: expiratory that is moderate, is heard diffusely. Vital Signs: 21:55 BP 168 / 100; Pulse 109; Resp 28; Temp 97.9; Pulse Ox 93% on R/A; Weight 113.4 kg; rr5 Height 5 ft. 6 in. (167.64 cm); Pain 9/10; 22:40 BP 127 / 66; Pulse 86; Resp 22; Pulse Ox 98% on 10% Nebulizer Mask; rr5 23:30 BP 135 / 70; Pulse 76; Resp 23; Pulse Ox 98% on 2 lpm NC; rr5 06/22 00:30 BP 141 / 75; Pulse 80; Resp 20; Temp 98.4; Pulse Ox 99% on 2 lpm NC; rr5 06/21 21:55 Body Mass Index 40.35 (113.40 kg, 167.64 cm) rr5 MDM: 06/21 21:51 Patient medically screened. tw4 06/22 03:22 Differential Diagnosis: Obstructed Airway Bronchitis Influenza Pneumonia. Data tw4 reviewed: vital signs, nurses notes. Data reviewed: lab test result(s), CBC, white blood cell count, hemoglobin, hematocrit, platelets, electrolytes, sodium, potassium, chloride, serum bicarbonate, BUN, creatinine, serum glucose, hepatic panel, radiologic studies, plain films. Data interpreted: Pulse oximetry: Interpretation: normal. Physician consultation: Jonathan Argueta MD regarding admission, to the telemetry unit. patient's condition, and will see patient in inpatient room. 06/21 22:14 Order name: Basic Metabolic Panel; Complete Time: 23:25 tw4 06/21 23:25 Interpretation: Normal except: GLUC 167; GFR 71. tw4 06/21 22:14 Order name: CBC with Diff; Complete Time: 23:25 tw4 06/21 23:26 Interpretation: Normal except: WBC 6.6; RDW 16.7. tw4 06/21 22:14 Order name: LFT's; Complete Time: 23:25 tw4 06/21 23:26 Interpretation: Normal except: GLOB 4.0; A/G 0.9; AST 9. tw06/21 22:14 Order name: Magnesium; Complete Time: 23:25 tw4 06/21 23:27 Interpretation: Within normal limits: MG 1.9. tw4 06/21 22:14 Order name: NT PRO-BNP; Complete Time: 23:25 tw4 06/21 23:27 Interpretation: Within normal limits: NT PRO-BNP 24. tw06/21 22:14 Order name: PT-INR; Complete Time: 23:25 tw4 06/21 23:27 Interpretation: Within normal limits: PT 12.3. tw4 06/21 22:14 Order name: Troponin (emerg Dept Use Only); Complete Time: 23:25 tw4 06/21 23:27 Interpretation: Within normal limits: TROPED < 0.02. tw06/21 22:14 Order name: XRAY Chest (1 view) tw4 06/22 00:07 Order name: CBC with Automated Diff EDMS 06/22 00:07 Order name: CBC with Automated Diff EDMS 06/22 00:07 Order name: Comprehensive Metabolic Panel EDMS 06/22 00:07 Order name: Comprehensive Metabolic Panel EDMS 06/21 22:14 Order name: Cardiac monitoring; Complete Time: 22:40 tw4 06/21 22:14 Order name: EKG - Nurse/Tech; Complete Time: 22:41 tw4 06/21 22:14 Order name: IV Saline Lock; Complete Time: 22:41 tw4 06/21 22:14 Order name: Labs collected and sent; Complete Time: 22:41 tw4 06/21 22:14 Order name: O2 Per Protocol; Complete Time: 22:41 tw4 06/21 22:14 Order name: O2 Sat Monitoring; Complete Time: 22:40 tw4 06/22 00:06 Order name: CONS Pharmacy Consult EDSD 06/22 00:06 Order name: CONS Physician Consult EDSD 06/22 00:06 Order name: NPO EDMS Administered Medications: 06/21 22:30 Drug: DuoNeb (3:1) (2.5 mg - 0.5 mg) 3 ml Route: Nebulizer; rr5 23:30 Follow up: Response: No adverse reaction rr5 23:25 Drug: Rocephin - (cefTRIAXone) 1 grams Route: IVPB; Infused Over: 30 mins; Site: right rr5 antecubital; 23:55 Follow up: Response: No adverse reaction; IV Status: Completed infusion rr5 23:55 Dru mg of (LevaQUIN 500 mg, NS 0.9% 100 ml) Volume: 100 ml; Route: IVPB; Infused rr5 Over: 60 mins; Site: right antecubital; 06/22 00:41 Follow up: Response: No adverse reaction; IV Status: Completed infusion; IV Intake: rr5 100ml Disposition: 06/21/19 23:22 Hospitalization ordered by Jonathan Argueta for Observation. Preliminary diagnosis is Hemoptysis. - Bed requested for Telemetry/MedSurg (observation). - Status is Observation. rr5 - Condition is Stable. - Problem is new. - Symptoms have improved. UTI on Admission? No Signatures: Dispatcher [employer] EDSD Gris Ivy RN RN mw Wadley, Terrence, MD MD tw4 Triston Do RN RN rr5 Corrections: (The following items were deleted from the chart) 00:05 06/21 23:22 Hospitalization Ordered by Jonathan Argueta MD for Observation. Preliminary mw diagnosis is Hemoptysis. Bed requested for Telemetry/MedSurg (observation). Status is Observation. Condition is Stable. Problem is new. Symptoms have improved. UTI on Admission? No. tw4 12/20 00:42 00:05 06/21/2019 23:22 Hospitalization Ordered by Jonathan Argueta MD for Observation. rr5 Preliminary diagnosis is Hemoptysis. Bed requested for Telemetry/MedSurg (observation). Status is Observation. Condition is Stable. Problem is new. Symptoms have improved. UTI on Admission? No. mw
--- NOTE | 2019-06-21 23:24 | ER ---
Nurse's Notes [facility] Name: Juan Miguel Langston Age: 53 yrs Sex: Male : 1965 Arrival Date: 06/21/2019 Time: 21:50 Bed 8 Private MD: Diagnosis: Hemoptysis Presentation: 06/21 21:50 Presenting complaint: EMS states: he complaints of coughing out blood and tenderness on rr5 his abdomen. seen on the ground approximate 50cc of fresh blood. Came here today morning and was discharge. 21:50 Transition of care: patient was not received from another setting of care. Onset of rr5 symptoms was June 21, 2019. Risk Assessment: Do you want to hurt yourself or someone else? Patient reports no desire to harm self or others. Initial Sepsis Screen: Does the patient meet any 2 criteria? RR > 20 per min. HR > 90 bpm. Yes Does the patient have a suspected source of infection? No. Patient's initial sepsis screen is negative. Care prior to arrival: None. 21:50 Method Of Arrival: EMS: [facility] rr5 21:50 Acuity: DESTINY 3 rr5 Historical: - Allergies: 21:55 Azithromycin; rr5 21:55 Metoprolol Tartrate; rr5 - Home Meds: 21:55 aspirin 81 mg Oral TbEC [Active]; rr5 - PMHx: 21:55 Angina; COPD; Diabetes - NIDDM; High Cholesterol; Hypertension; Myocardial infarction; rr5 Sleep Apnea; - Immunization history:: Adult Immunizations unknown. - Social history:: Smoking status: Patient uses tobacco products. - Ebola Screening: : Patient negative for fever greater than or equal to 101.5 degrees Fahrenheit, and additional compatible Ebola Virus Disease symptoms Patient denies exposure to infectious person Patient denies travel to an Ebola-affected area in the 21 days before illness onset. Screenin:41 Abuse screen: Denies threats or abuse. Denies injuries from another. Nutritional rr5 screening: No deficits noted. Tuberculosis screening: No symptoms or risk factors identified. Fall Risk IV access (20 points). Total [place] Fall Scale indicates No Risk (0-24 pts). Assessment: 21:50 General: Appears in no apparent distress. uncomfortable, Behavior is calm, cooperative, rr5 appropriate for age, not for sepsis protocol as per ED provider. 21:50 Pain: Complains of pain in abdomen Pain does not radiate. Pain currently is 9 out of 10 rr5 on a pain scale. Quality of pain is described as aching, Pain began gradually, Is intermittent. Neuro: Level of Consciousness is awake, alert, obeys commands, Oriented to person, place, time, situation, Appropriate for age. Cardiovascular: Denies chest pain, Capillary refill < 3 seconds Patient's skin is warm and dry. Respiratory: Reports shortness of breath cough that is blood Airway is patent Respiratory effort is even, unlabored, Respiratory pattern is tachypnea Breath sounds with wheezes. GI: Abdomen is tender to palpation X 4 quads. Reports lower abdominal pain, upper abdominal pain. : No signs and/or symptoms were reported regarding the genitourinary system. EENT: No signs and/or symptoms were reported regarding the EENT system. Derm: Skin is intact, is healthy with good turgor, Skin temperature is warm. Musculoskeletal: Capillary refill < 3 seconds. 22:52 Reassessment: Patient appears in no apparent distress at this time. resting eyes closed rr5 breathing spontaneously. vital signs taken and recorded. 23:20 Reassessment: Patient appears in no apparent distress at this time. No changes from rr5 previously documented assessment. Patient is alert, oriented x 3, equal unlabored respirations, skin warm/dry/pink. awaiting for room assignment. 06/22 00:35 Reassessment: Patient appears in no apparent distress at this time. Patient is alert, rr5 oriented x 3, equal unlabored respirations, skin warm/dry/pink. no complaints made transfer to medical surgical floor. Patient states feeling better. Patient states symptoms have improved. Vital Signs: 06/21 21:55 BP 168 / 100; Pulse 109; Resp 28; Temp 97.9; Pulse Ox 93% on R/A; Weight 113.4 kg; rr5 Height 5 ft. 6 in. (167.64 cm); Pain 10; 22:40 BP 127 / 66; Pulse 86; Resp 22; Pulse Ox 98% on 10% Nebulizer Mask; rr5 23:30 BP 135 / 70; Pulse 76; Resp 23; Pulse Ox 98% on 2 lpm NC; rr5 06/22 00:30 BP 141 / 75; Pulse 80; Resp 20; Temp 98.4; Pulse Ox 99% on 2 lpm NC; rr5 06/21 21:55 Body Mass Index 40.35 (113.40 kg, 167.64 cm) rr5 ED Course: 06/21 21:50 Patient arrived in ED. rr5 21:51 Hans Richards MD is Attending Physician. tw4 21:56 Triage completed. rr5 21:57 Arm band placed on. rr5 22:00 Patient has correct armband on for positive identification. Placed in gown. Bed in low rr5 position. Call light in reach. Side rails up X2. 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 Pulse ox on. NIBP on. 22:24 Triston Do RN is Primary Nurse. rr5 22:25 Inserted saline lock: 20 gauge in right antecubital area, using aseptic technique. rr5 Blood collected. 22:30 Oxygen administration via nasal cannula \T\ 2L/min Response to oxygen therapy: symptoms rr5 improved. 22:31 XRAY Chest (1 view) In Process Unspecified. EDMS 22:41 EKG done, by ED staff, reviewed by Hans Richards MD. rr5 22:53 Initial Neb Treatment Given as ordered Patient tolerated procedure well without adverse rr5 effect. 23:21 Jonathan Argueta MD is Hospitalizing Provider. tw4 12 00:40 No provider procedures requiring assistance completed. Patient admitted, IV remains in rr5 place. intact, No redness/swelling at site. Administered Medications: 06/21 22:30 Drug: DuoNeb (3:1) (2.5 mg - 0.5 mg) 3 ml Route: Nebulizer; rr5 23:30 Follow up: Response: No adverse reaction rr5 23:25 Drug: Rocephin - (cefTRIAXone) 1 grams Route: IVPB; Infused Over: 30 mins; Site: right rr5 antecubital; 23:55 Follow up: Response: No adverse reaction; IV Status: Completed infusion rr5 23:55 Dru mg of (LevaQUIN 500 mg, NS 0.9% 100 ml) Volume: 100 ml; Route: IVPB; Infused rr5 Over: 60 mins; Site: right antecubital; 06/22 00:41 Follow up: Response: No adverse reaction; IV Status: Completed infusion; IV Intake: rr5 100ml Intake: 00:41 IV: 100ml; Total: 100ml. rr5 Outcome: 06/21 23:22 Decision to Hospitalize by Provider. tw4 06/22 00:30 Admitted to Med/surg accompanied by tech, via wheelchair, room 214, with oxygen, with rr5 chart, Report called to jatin 00:30 Condition: stable rr5 00:30 Instructed on the need for admit. 00:42 Patient left the ED. rr5 Signatures: Dispatcher [employer] Hans Evans MD MD tw4 Triston Do, RN RN rr5
[2019-06-21] MEDS ORDERED: CEFTRIAXONE/SWI 1gm 1 GM/10 ML SYR ONE (23:28)
[2019-06-21] MEDS ORDERED: Levofloxacin500mg IV 500 MG/100 ML BAG IV ONE (23:28)
[2019-06-21] MEDS: NA CHLORIDE 0.9% 1,000 ML IV SCH (23:45)
[2019-06-21] MEDS ORDERED: ONDANSETRON 4 MG/2 ML VIAL IV PRN (23:51)
[2019-06-21] MEDS ORDERED: MORPHINE 2 MG/ML SYR IV PRN (23:51)
[2019-06-21] MEDS ORDERED: ACETAMINOPHEN 500 MG TAB PO PRN (23:51)
[2019-06-22] MEDS: NA CHLORIDE 0.9% 1,000 ML IV SCH (00:57)
[2019-06-22 01:03] VITALS: BMI 39.9
[2019-06-22 06:02] LABS: Absolute Lymphocytes (CBC) 1.5 K/uL (0.7-4.9); Basophils % 0.7 % (0-1.3); Hematocrit 42.7 % (39.6-49.0); Lymphocytes % 15.2 % (15.3-44.8); MPV 9.3 fL (7.6-11.3); RBC Red Blood Cell Count 4.88 M/uL (4.33-5.43)
[2019-06-22 06:14] LABS: Albumin 3.5 g/dL (3.4-5.0); Bilirubin Total 0.2 mg/dL (0.2-1.0); Potassium 4.9 mmol/L (3.5-5.1)
[2019-06-22] MEDS ORDERED: IPRATROPIUM BROM 0.5MG/2.5ML NEB PRN (06:36)
[2019-06-22] MEDS ORDERED: ALBUTEROL 2.5 MG/3 ML NEB SOL NEB PRN (06:36)
[2019-06-22] MEDS ORDERED: METHYLPREDNISOLONE 125 MG INJ IV ONE (06:36)
--- NOTE | 2019-06-22 07:12 | RAD REPORT ---
EXAM DESCRIPTION: RAD - Chest Single View - 06/21/2019 10:31 pm CLINICAL HISTORY: Cough, patient details hemoptysis, abdominal tenderness COMPARISON: None. TECHNIQUE: AP portable chest image was obtained 2227 hours . FINDINGS: Lungs are clear. Heart and vasculature are normal. No measurable pleural effusion and no p neumothorax. No acute bony abnormality seen. No acute aortic findings suspected. IMPRESSION: No acute cardiopulmonary process.
[2019-06-22 07:57] LABS: Anisocytosis 1+; Blood Morphology Comment NOTED (NOT SEEN); Platelet Estimate ADEQ; Urine White Blood Cell Casts OK
--- NOTE | 2019-06-22 08:48 | P.HP ---
Certification for Inpatient Patient admitted to: Observation With expected LOS: <2 Midnights Patient will require the following post-hospital care: None Practitioner: I am a practitioner with admitting privileges, knowledge of patient current condition, hospital course, and medical plan of care. Services: Services provided to patient in accordance with Admission requirements found in Title 42 Section 412.3 of the Code of Federal Regulations Patient History Date of Service: 06/21/19 Reason for admission: hemoptysis History of Present Illness: patient is a 53-year-old gentleman who came into the hospital with hemoptysis. Patient has been short of breath for the last 2-3 days. His symptoms have gotten progressively worse. He came to the ER for further evaluation. In the emergency room he was found to have a pulmonary nodule which was 5 mm which was unchanged since 2013. patient had some chronic obstructive pulmonary disease changes but otherwise no significant abnormalities. Patient had no significant lung mass noted nor did the patient have a pulmonary embolism. On exam patient only exhibited some anterior cervical lymphadenopathy and some end-expiratory wheezing. Patient possibly has obstructive sleep apnea. This could be monitored as an outpatient. Because of his hemoptysis and the fact that is continued throughout the day he will be admitted to the hospital for observation. We will await Pulmonary recommendations prior to disposition. Allergies azithromycin Adverse Reaction (Verified 06/22/19 01:02) Hives Beta-Blockers (Beta-Adrenergic Bloc Adverse Reaction (Verified 06/22/19 01:02) Anaphylaxis metoprolol Adverse Reaction (Verified 06/22/19 01:02) Anaphylaxis Home Medications: Albuterol Sulfate [Proair Hfa] 2 puff IN Q6H PRN 06/22/19 Isosorbide Dinitrate [Isordil] 30 mg PO DAILY 06/22/19 Lisinopril [Zestril] 20 mg PO DAILY 06/22/19 Metformin ER [Glucophage ER*] 500 mg PO DAILY 06/22/19 Nitroglycerin [Nitrostat*] 1 tab PO DAILY PRN 06/22/19 - Past Medical/Surgical History Has patient received pneumonia vaccine in the past: Yes Diabetic: Yes -: Angina -: HTN -: Hyperlipidemia -: Tobacco abuse -: CAD -: COPD -: GERD -: Noncompliance with medication and follow up -: CARDIAC CATH 12/2013 NO STENTS 30% BLOCKAGE PER PT -: Cardiac stress tests October 2017 showed no stress-induced ischemia Psychosocial/ Personal History: Patient is single. Patient is homeless. - Family History MOM Medical History: Heart disease, Other (see notes) Notes: MASSIVE ME 61YR and arthritis DAD Medical History: Heart disease, Other (see notes) Notes: POOR CIRCULATION TO LEGS PER PT - Social History Smoking Status: Current every day smoker Alcohol use: Yes CD- Drugs: No Caffeine use: Yes Place of Residence: Homeless Review of Systems 10-point ROS is otherwise unremarkable Physical Examination - Vital Signs Temperature: 97.6 F Blood Pressure: 157/90 Pulse: 91 Respirations: 19 Pulse Ox (%): 90 - Physical Exam General: Alert, In no apparent distress, Oriented x3 HEENT: Atraumatic, PERRLA, Mucous membr. moist/pink, EOMI, Sclerae nonicteric Neck: Supple, 2+ carotid pulse no bruit, Without JVD or thyroid abnormality, LAD Respiratory: Expiratory wheezes Cardiovascular: Regular rate/rhythm, Normal S1 S2, Systolic murmur Gastrointestinal: Normal bowel sounds, Soft and benign, Non-distended, No tenderness Musculoskeletal: No tenderness Integumentary: No rashes Neurological: Normal gait, Normal speech, Normal strength at 5/5 x4 extr, Normal tone, Sensation intact, Cranial nerves 3-12 intact, Normal affect Lymphatics: No axilla or inguinal lymphadenopathy - Studies Laboratory Data (last 24 hrs) 06/22/19 05:35: Sodium 141, Potassium 4.9, BUN 19 H, Creatinine 0.90, Glucose 113 H, Total Bilirubin 0.2, AST 20, ALT 64, Alkaline Phosphatase 55 06/22/19 05:35: WBC 10.1 D, Hgb 14.0, Hct 42.7, Plt Count 241 06/21/19 22:30: PT 12.3, INR 1.04 06/21/19 22:30: WBC 6.6 D, Hgb 13.6, Hct 40.1, Plt Count 236 06/21/19 22:30: Sodium 141, Potassium 4.2, BUN 18, Creatinine 1.09, Glucose 167 H, Magnesium 1.9, Total Bilirubin 0.2, AST 9 L, ALT 66, Alkaline Phosphatase 55 Assessment & Plan - Problems (Diagnosis) (1) Hemoptysis Current Visit: Yes Status: Acute (2) COPD exacerbation Onset Date: 08/08/18 Current Visit: No Status: Acute (3) HTN (hypertension) Onset Date: 03/03/18 Current Visit: No Status: Chronic Qualifiers: (4) Obesity Current Visit: No Status: Chronic Qualifiers: (5) Tobacco abuse Onset Date: 03/03/18 Current Visit: No Status: Chronic - Plan -nebs, steroids, and may add an antibiotics depending on his clinical pictures. If he has a fever or if he has productive sputum which is persistent then we will go ahead and start an antibiotic -O2 per protocol. -outpatient spirometry or pulmonary function testing -repeat chest x-ray -pulmonary consultation - monitor H&H Discharge Plan: Home Plan to discharge in: 24 Hours - Advance Directives Does patient have a Living Will: No Does patient have a Durable POA for Healthcare: Yes - Code Status/Comfort Care Code Status Assessed: Yes Code Status: Full Code Critical Care: No Time Spent Managing PTS Care (In Minutes): 45
--- NOTE | 2019-06-22 08:54 | P.DS ---
Admission Date: 06/22/19 Discharge Date: 06/22/19 Primary Care Provider: none Disposition: ROUTINE DISCHARGE Discharge Condition: GOOD Reason for Admission: hemoptysis Consultations: Pulmonary-Dr. Burgess Procedures: CXR: COMPARISON: None. TECHNIQUE: AP portable chest image was obtained 2227 hours . FINDINGS: Lungs are clear. Heart and vasculature are normal. No measurable pleural effusion and no pneumothorax. No acute bony abnormality seen. No acute aortic findings suspected. IMPRESSION: No acute cardiopulmonary process. CT Chest: FINDINGS: No evidence of pulmonary thromboembolism. No acute aortic finding demonstrated. The lungs are clear of acute infiltrate. 5 mm nodule in the right lung appears stable since 2013, thus compatible with a benign nodule. No significant pericardial or pleural fluid. No concerning bony finding. IMPRESSION: No evidence of pulmonary thromboembolism. No acute lung findings. Prior heart catheterization April 2019: Date of Procedure: 05/01/2019 Surgeon: Nazario Anderson MD Chain Repairer: Sandro Valverde. Admitted to Dr. Fuchs on 04/28/2019. Procedures: Today on 05/01/2019, he underwent a left heart catheterization, selective coronary arteriogram. Indication: Chest pain and a positive stress test. He had a 30% OM very left dominant. He had a 50% RCA, mid stenosis in the nondominant vessel, small. He had a normal LAD. There were no complications. Blood Loss: 5 mL. Postoperative Diagnosis: [id number] coronary artery disease. Plan: Plan is for medical therapy. Medical Problem List: Hemoptysis likely secondary to COPD exacerbation Hypertension CAD DM Type 2 noninsulin dependent Brief History of Present Illness: 53-year-old male with history of CAD, hypertension and COPD. Patient presented with hemoptysis and mild shortness of breath. Patient had been seen in the ER prior to admission. CT scan done at that time was unremarkable. It did show a 5 mm lung nodule unchanged since 2013. This is likely benign. Due to the hemoptysis and recurrent shortness of breath patient was admitted for further observation. Hospital Course: Patient presented with hemoptysis and shortness of breath. This was likely secondary to COPD exacerbation. Chest x-ray unremarkable. CT scan showed no acute findings. Lung nodule unchanged since 2013 noted. Patient was treated during the course of his stay. Patient seen by pulmonology as outpatient. No intervention required at this time. At discharge patient will continue with prednisone 20 mg 1 pill twice daily for 5 days then 1 pill once daily for 5 days. New medications Symbicort 2 puffs twice a day added. Patient may continue with Pro air 2 puffs 3 times a day as needed for shortness of breath. Recommend follow up with pulmonology to further monitor and address. Patient has an appointment soon to follow up with pulmonology at [facility]. Patient with hypertension. This has remained stable. Patient will continue with his medications including lisinopril 20 mg daily. Patient with history of CAD. Prior heart catheterization done April 2019 reviewed. Medical therapy was recommended at that time. Patient will continue with aspirin 81 mg daily and isosorbide dinitrate 30 mg daily. Patient with diabetes mellitus type 2 non insulin dependent. This has remained stable. At discharge patient will continue with metformin 500 mg daily. Recommend to maintain blood sugars less 140 fasting and less than 200 after meals. Further adjustment can be done by his PCP. Vital Signs/Physical Exam: Temp Pulse Resp BP Pulse Ox 97.6 F 91 H 19 157/90 H 90 L 06/22/19 08:48 06/22/19 08:48 06/22/19 08:48 06/22/19 08:48 06/22/19 08:48 General: Alert, In no apparent distress, Oriented x3, Cooperative HEENT: Atraumatic Neck: Supple Respiratory: Expiratory wheezes (Mild) Cardiovascular: Normal pulses, Regular rate/rhythm Gastrointestinal: Normal bowel sounds, Soft and benign, Non-distended, No tenderness, No masses, No rebound, No guarding Musculoskeletal: No contractures, No erythema, No tenderness, No warmth Integumentary: No tenderness/swelling, No erythema, No warmth, No cyanosis Neurological: Normal speech, Normal strength at 5/5 x4 extr, Normal tone, Normal affect Laboratory Data at Discharge: WBC 10.1 K/uL (4.3-10.9) D 06/22/19 05:35 Hgb 14.0 g/dL (13.6-17.9) 06/22/19 05:35 Hct 42.7 % (39.6-49.0) 06/22/19 05:35 Plt Count 241 K/uL (152-406) 06/22/19 05:35 PT 12.3 SECONDS (9.5-12.5) 06/21/19 22:30 INR 1.04 06/21/19 22:30 Sodium 141 mmol/L (136-145) 06/22/19 05:35 Potassium 4.9 mmol/L (3.5-5.1) 06/22/19 05:35 BUN 19 mg/dL (7-18) H 06/22/19 05:35 Creatinine 0.90 mg/dL (0.55-1.3) 06/22/19 05:35 Glucose 113 mg/dL (74-106) H 06/22/19 05:35 Magnesium 1.9 mg/dL (1.8-2.4) 06/21/19 22:30 Total Bilirubin 0.2 mg/dL (0.2-1.0) 06/22/19 05:35 AST 20 U/L (15-37) 06/22/19 05:35 ALT 64 U/L (12-78) 06/22/19 05:35 Alkaline Phosphatase 55 U/L (45-117) 06/22/19 05:35 Home Medications: Albuterol Sulfate [Proair Hfa] 2 puff IN TID PRN #1 hfa.[email or web address] 06/22/19 Budesonide/Formoterol Fumarate [Symbicort 160-4.5 Mcg Inhaler] 2 puff IH BID #1 hfa.aer.ad 06/22/19 Isosorbide Dinitrate [Isordil] 30 mg PO DAILY 06/22/19 Lisinopril [Zestril] 20 mg PO DAILY 06/22/19 Metformin ER [Glucophage ER*] 500 mg PO DAILY 06/22/19 Nitroglycerin [Nitrostat*] 1 tab PO DAILY PRN 06/22/19 predniSONE [Prednisone*] 20 mg PO SEECOM #15 tab 06/22/19 New Medications: Albuterol Sulfate [Proair Hfa] 2 puff IN TID PRN #1 hfa.aer.ad PRN Reason: shortness of breath Budesonide/Formoterol Fumarate [Symbicort 160-4.5 Mcg Inhaler] 2 puff IH BID #1 hfa.aer.ad predniSONE [Prednisone*] 20 mg PO SEECOM #15 tab Patient Discharge Instructions: 1. Recommend follow up with PCP within 1-2 weeks to follow up this hospitalization. 2. Patient presented with hemoptysis and shortness of breath. This was likely secondary to COPD exacerbation. Chest x-ray unremarkable. CT scan showed no acute findings. Lung nodule unchanged since 2013 noted. Patient was treated during the course of his stay. Patient seen by pulmonology. No intervention required at this time. At discharge patient will continue with prednisone 20 mg 1 pill twice daily for 5 days then 1 pill once daily for 5 days. New medications Symbicort 2 puffs twice a day added. Patient may continue with Pro air 2 puffs 3 times a day as needed for shortness of breath. Recommend follow up with pulmonology to further monitor and address. Patient has an appointment soon to follow up with pulmonology at [facility]. 3. Patient with hypertension. This has remained stable. Patient will continue with his medications including lisinopril 20 mg daily. 4. Patient with history of CAD. Prior heart catheterization done April 2019 reviewed. Medical therapy was recommended at that time. Patient will continue with aspirin 81 mg daily and isosorbide dinitrate 30 mg daily. 5. Patient with diabetes mellitus type 2 non insulin dependent. This has remained stable. At discharge patient will continue with metformin 500 mg daily. Recommend to maintain blood sugars less 140 fasting and less than 200 after meals. Further adjustment can be done by his PCP. Diet: ADA Activity: Ad yasmine Time spent managing pt's care (in minutes): 55
[2019-06-22] MEDS ORDERED: lisinopriL 20 MG TAB PO SCH (09:00)
[2019-06-22] MEDS ORDERED: ISOSORBIDE MONO SR 30 MG TAB PO SCH (09:00)
[2019-06-22] MEDS ORDERED: predniSONE 20 MG TAB PO SCH (09:00)
[2019-06-22] MEDS ORDERED: DULERA 100/5 (MOMETASONE/FORMOTEROL) INHALER IH SCH (09:00)
[2019-06-22 09:56] LABS: Urine Appearance CLEAR; Urine Bilirubin NEGATIVE (NEG); Urine Blood NEGATIVE (NEG); Urine Color YELLOW; Urine Glucose NEGATIVE (NEG); Urine Protein 2+ (NEG); Urine Urobilinogen 0.2 mg/dL (0.2-1.0)
[2019-06-22 10:35] LABS: Urine Bacteria <20 /HPF (NONE SEEN); Urine RBC <5 /HPF (NONE SEEN)
[2019-06-22 10:36] LABS: Urine Culture Reflex Order NOT NEEDED
[2019-06-22 12:23] VITALS: O2SAT 95
--- NOTE | 2019-06-22 13:06 | P.CNS ---
Date of Consult: 06/22/19 Reason for Consult: Hemoptysis Primary Care Provider: none Chief Complaint: hemoptysis History of Present Illness: Patient is 53 years of age homeless evaluated by me complaining of sudden onset of hemoptysis mixed with sputum CT scan is negative patient is an active smoker he has a history of COPD denies any fever or chills no prior history of hemoptysis history of sleep apnea Allergies azithromycin Adverse Reaction (Verified 06/22/19 01:02) Hives Beta-Blockers (Beta-Adrenergic Bloc Adverse Reaction (Verified 06/22/19 01:02) Anaphylaxis metoprolol Adverse Reaction (Verified 06/22/19 01:02) Anaphylaxis Home Medications: Albuterol Sulfate [Proair Hfa] 2 puff IN TID PRN #1 hfa.aer.ad 06/22/19 Budesonide/Formoterol Fumarate [Symbicort 160-4.5 Mcg Inhaler] 2 puff IH BID #1 hfa.aer.ad 06/22/19 Isosorbide Dinitrate [Isordil] 30 mg PO DAILY 06/22/19 Levofloxacin [Levaquin] 500 mg PO DAILY #7 tablet 06/22/19 Lisinopril [Zestril] 20 mg PO DAILY 06/22/19 Metformin ER [Glucophage ER*] 500 mg PO DAILY 06/22/19 Nitroglycerin [Nitrostat*] 1 tab PO DAILY PRN 06/22/19 predniSONE [Prednisone*] 20 mg PO SEECOM #15 tab 06/22/19 - Past Medical/Surgical History Diabetic: Yes -: Angina -: HTN -: Hyperlipidemia -: Tobacco abuse -: CAD -: COPD -: GERD -: Noncompliance with medication and follow up -: CARDIAC CATH 12/2013 NO STENTS 30% BLOCKAGE PER PT -: Cardiac stress tests October 2017 showed no stress-induced ischemia Psychosocial/ Personal History: Patient is single. Patient is homeless. - Family History MOM Medical History: Heart disease, Other (see notes) Notes: MASSIVE ND 61YR and arthritis DAD Medical History: Heart disease, Other (see notes) Notes: POOR CIRCULATION TO LEGS PER PT - Social History Smoking Status: Current every day smoker Alcohol use: Yes CD- Drugs: No Caffeine use: Yes Place of Residence: Homeless Review of Systems 10-point ROS is otherwise unremarkable General: Weakness Respiratory: Cough, Shortness of Breath, Hemoptysis Physical Examination Temp Pulse Resp BP Pulse Ox 97.6 F 91 H 19 157/90 H 90 L 06/22/19 08:48 06/22/19 08:48 06/22/19 08:48 06/22/19 08:48 06/22/19 08:48 General: Alert, Oriented x3 HEENT: Atraumatic Neck: Supple Respiratory: Expiratory wheezes Cardiovascular: No edema, Regular rate/rhythm Gastrointestinal: Normal bowel sounds, Soft and benign Laboratory Data (last 24 hrs) 06/22/19 05:35: Sodium 141, Potassium 4.9, BUN 19 H, Creatinine 0.90, Glucose 113 H, Total Bilirubin 0.2, AST 20, ALT 64, Alkaline Phosphatase 55 06/22/19 05:35: WBC 10.1 D, Hgb 14.0, Hct 42.7, Plt Count 241 06/21/19 22:30: PT 12.3, INR 1.04 06/21/19 22:30: WBC 6.6 D, Hgb 13.6, Hct 40.1, Plt Count 236 06/21/19 22:30: Sodium 141, Potassium 4.2, BUN 18, Creatinine 1.09, Glucose 167 H, Magnesium 1.9, Total Bilirubin 0.2, AST 9 L, ALT 66, Alkaline Phosphatase 55 - Problems (1) COPD exacerbation Onset Date: 08/08/18 Current Visit: No Status: Acute Plan: Patient is 53 years of age with a history of COPD admitted with an exacerbation he has some hemoptysis which is minimal extubate sputum CT scan does not show any obvious lung mass laboratory data data does not show any significant abnormalities vital signs are stable oxygenation satisfactory probably has some bronchitis with hemoptysis can be discharged home on low-dose prednisone with levofloxacin sputum cultures sent to follow up with me or a graphics software engineer I have informed me fears recurrent persistent hemoptysis may need a bronchoscopy
[2019-06-22 13:54] VITALS: BP 141/80; TEMP 97.5
== END 2019-06-22 15:15 | disposition home or self-care (01) | DRG 191 ==
LOC: ER 21:47 → ERHOLD 06-22 00:17 → 2ND 06-22 00:29 → OBSVTOIN 06-22 07:43
PROVIDERS: ADMIT Hospitalist; ATTEND Family Medicine
DX: J44.1 Chronic obstructive pulmonary disease with (acute) exacerbation (principal); R04.2 Hemoptysis; E78.5 Hyperlipidemia, unspecified; I25.10 Atherosclerotic heart disease of native coronary artery without angina pectoris; K21.9 Gastro-esophageal reflux disease without esophagitis; I10 Essential (primary) hypertension; E66.9 Obesity, unspecified; F17.210 Nicotine dependence, cigarettes, uncomplicated; E11.9 Type 2 diabetes mellitus without complications; Z68.39 Body mass index [BMI] 39.0-39.9, adult
CPT/HCPCS: 36415; 71045; 80048; 80053; 80076; 81001; 83735; 83880; 84484; 85025; 85610; 87070; 87077; 87186; 87205; 94640; 96365; 96367; 99285; G0378; J0696; J2270; J2930; J7030; J7512; J7606

== ENCOUNTER 2019-07-01 11:30 | Inpatient (IN) | payer SELFPAY ==
--- OUTSIDE RECORDS SUMMARY | 2019-07-01 11:36 | XMS REPORT ---
:1965 [facility] Address [address] [place] [address] Dr. Fierro [address] [place] [id number] Care Team Providers Name Role Phone Unavailable Unavailable Unavailable Problems This patient has no known problems. Allergies, Adverse Reactions, Alerts This patient has no known allergies or adverse reactions. Medications This patient has no known medications.
[2019-07-01 12:32] LABS: Absolute Lymphocytes (CBC) 1.6 K/uL (0.7-4.9); Basophils % 0.8 % (0-1.3); Hematocrit 44.2 % (39.6-49.0); Lymphocytes % 15.2 % (15.3-44.8); MPV 9.4 fL (7.6-11.3); RBC Red Blood Cell Count 5.17 M/uL (4.33-5.43)
[2019-07-01 12:34] LABS: Protime INR 0.92
[2019-07-01 12:40] LABS: Barbiturates NEGATIVE (NEGATIVE); Benzodiazepines NEGATIVE (NEGATIVE); Cocaine NEGATIVE (NEGATIVE); METHAMPHETAM NEGATIVE (NEGATIVE); Methadone NEGATIVE (NEGATIVE); Opiates NEGATIVE (NEGATIVE); Phencyclidine NEGATIVE (NEGATIVE); THC Cannibis NEGATIVE (NEGATIVE)
[2019-07-01] MEDS ORDERED: ASPIRIN 81 MG CHEWABLE TABLET ONE (12:44)
[2019-07-01] MEDS ORDERED: NA CHLORIDE 0.9% 1,000 ML ONE (12:45)
[2019-07-01 12:50] LABS: ALT/SGPT 210 U/L (12-78); AST/SGOT 82 U/L (15-37); Albumin 3.4 g/dL (3.4-5.0); Alkaline Phosphatase 56 U/L (45-117); BUN Blood Urea Nitrogen 19 mg/dL (7-18); Bicarbonate 32 mmol/L (21-32); Bilirubin Direct < 0.1 mg/dL (0-0.2); Bilirubin Total 0.2 mg/dL (0.2-1.0); Glucose Level 100 mg/dL (74-106); Lipase 225 U/L (73-393); NT PRO-BNP 34 pg/mL (<125); Potassium 3.9 mmol/L (3.5-5.1); Protein, Total 6.6 g/dL (6.4-8.2); Sodium Level 139 mmol/L (136-145); Troponin (Emerg Dept Use Only) 0.03 ng/mL (0.0-0.045)
--- NOTE | 2019-07-01 12:51 | RAD REPORT ---
EXAM DESCRIPTION: Jayda Single View07/01/2019 12:23 pm CLINICAL HISTORY: Chest pain COMPARISON: June 21, 2019 FINDINGS: The lungs appear clear of acute infiltrate. The heart is normal size IMPRESSION: No acute abnormalities displayed
--- NOTE | 2019-07-01 13:33 | ER ---
Nurse's Notes [facility] Name: Juan Miguel Langston Age: 53 yrs Sex: Male : 1965 Arrival Date: 07/01/2019 Time: 11:33 Bed 9 Private MD: Diagnosis: Dyspnea;Chronic obstructive pulmonary disease with (acute) exacerbation;Tobacco abuse counseling;Tobacco use;Obesity, unspecified;Hypoxemia Presentation: 07/01 11:50 Presenting complaint: Patient states: blood pressure has been high 218/125 P 115 per rb1 pt. report. c/o congestion x 4 days, nausea and diarrhea. Transition of care: patient was not received from another setting of care. Onset of symptoms was June 27, 2019. 11:50 Method Of Arrival: Wheelchair rb1 11:50 Acuity: DESTINY 3 rb1 Triage Assessment: 11:50 General: Appears uncomfortable, Behavior is calm, cooperative. EENT: Reports nasal rb1 congestion since x 4 days. Neuro:. Respiratory: Reports shortness of breath cough that is non-productive, Airway is patent Respiratory effort is even, unlabored, Respiratory pattern is regular, symmetrical. GI: Reports diarrhea, nausea. Historical: - Allergies: 11:50 Azithromycin; rb1 11:50 Metoprolol Tartrate; rb1 - Home Meds: 11:50 aspirin 81 mg Oral TbEC [Active]; rb1 - PMHx: 11:50 Angina; COPD; Diabetes - NIDDM; High Cholesterol; Hypertension; Myocardial infarction; rb1 Sleep Apnea; - Immunization history:: Adult Immunizations up to date. - Social history:: Smoking status: Patient uses tobacco products, smokes one-half pack cigarettes per day. - Ebola Screening: : Patient negative for fever greater than or equal to 101.5 degrees Fahrenheit, and additional compatible Ebola Virus Disease symptoms. Screenin:19 Abuse screen: Denies threats or abuse. Nutritional screening: No deficits noted. sr5 Tuberculosis screening: No symptoms or risk factors identified. Fall Risk No fall in past 12 months (0 pts). Secondary diagnosis (15 points) IV access (20 points). Ambulatory Aid- None/Bed Rest/Nurse Assist (0 pts). Gait- Weak (10 pts.). Mental Status- Oriented to own ability (0 pts). Total [place] Fall Scale indicates High Risk Score (45 or more points). Fall prevention measures have been instituted. Side Rails Up X 2 Frequent Obs/Assessments Occuring Family Present and informed to notify staff if the need to leave the bedside As available patient and family educated on Fall Prevention Program and Strategies. Assessment: 12:48 General: Appears ill, Behavior is calm, cooperative. Pain: Complains of pain in chest sr5 Pain currently is 4 out of 10 on a pain scale. Aggravated by cough. Neuro: Level of Consciousness is awake, alert, obeys commands, Oriented to person, place, time, situation, Speech is normal. Cardiovascular: Patient's skin is warm and dry. Rhythm is sinus rhythm. Respiratory: Respiratory effort is even, Respiratory pattern is regular, symmetrical, Breath sounds are coarse bilaterally. Respiratory: Reports cough that is non-productive. GI: No signs and/or symptoms were reported involving the gastrointestinal system. : No signs and/or symptoms were reported regarding the genitourinary system. EENT: No signs and/or symptoms were reported regarding the EENT system. Derm: No signs and/or symptoms reported regarding the dermatologic system. Musculoskeletal: No signs and/or symptoms reported regarding the musculoskeletal system. 13:58 Reassessment: Patient and/or family updated on plan of care and expected duration. Pain sr5 level reassessed. No change in pt condition. Awaiting admission. Pt remains fully AA\\T\\Ox4, equal resp, NEB in progress, skin hot /dry, SR on monitor, IV site asympt with NS \\T\\ 75mL/hr. 15:17 Reassessment: Pt appears to be much more comfortable at this time. Equal unlabored sr5 resp, 94% room air, skin warm/dry/nc, SR on monitor HR 97, IV site asympt/SL. 100mL dark yellow urine voided post Lasix admin. Awaiting admission and meal tray. Repeat Troponin ordered for 1700 today. 15:59 Reassessment: Pt remains AA\\T\\Ox4, equal unlabored resp, reports nasal congestion and sr5 pain behind eyes "it's my cataracts", room air 93% history of COPD, skin warm/dry/nc, SR on monitor, 600mL urine voided. 17:55 Reassessment: Troponin #2 collected, RT now at bedside for repeat NEB treatment. sr5 19:40 Reassessment: Pt sitting upright talking with family, equal unlabored resp, room air, sr5 96%, skin warm/dry/nc, SR on monitor, HR 92, IV site asympt/SL, 300mL urine voided. Pt had dinner tray and sandwich provided. 22:54 Reassessment: Pt remains AA\\T\\Ox4, equal unlabored resp, snoring when sleeping, 92% RA, sr5 skin warm/dry/nc, SR on monitor, IV site asympt/SL. Family at bedside. Vital Signs: 11:50 BP 157 / 82; Pulse 104; Resp 19; Temp 97.8(TE); Pulse Ox 93% on R/A; Weight 118.84 kg rb1 (R); Height 5 ft. 6 in. (167.64 cm) (R); 12:30 BP 157 / 76 LA Sitting (auto/lg); Pulse 107; Resp 21 S; Pulse Ox 96% on 3 lpm NC; jp3 13:00 BP 120 / 75 LA (auto/lg); Pulse 89; Resp 16; Pulse Ox 95% on 3 lpm NC; jp3 13:57 BP 132 / 88; Pulse 97; Resp 20; Temp 100.0; Pulse Ox 98% on R/A; sr5 15:19 BP 144 / 88; Pulse 91; Resp 20; Temp 99.5(O); Pulse Ox 94% on R/A; sr5 15:59 BP 126 / 69; Pulse 94; Resp 20; Temp 99.5(O); Pulse Ox 93% on R/A; Pain 8/10; sr5 17:56 BP 151 / 55; Pulse 88; Resp 22; Pulse Ox 92% on R/A; sr5 19:40 BP 133 / 82; Pulse 87; Resp 20; Temp 98.1; Pulse Ox 96% on R/A; Pain 4/10; sr5 20:21 BP 152 / 65; Pulse 71; Resp 22; Pulse Ox 88% on R/A; sr5 22:54 BP 157 / 91; Pulse 93; Resp 20; Temp 99.5(O); Pulse Ox 92% on R/A; Pain 4/10; sr5 11:50 Body Mass Index 42.29 (118.84 kg, 167.64 cm) rb1 15:59 pain behind eyes sr5 19:40 pain behind eyes sr5 20:21 placed back on nasal cannula at 2.5LPM, SpO2 quickly back up 95% sr5 22:54 headache, pain behind eyes remains sr5 Vitals: 15:19 Cardiac Rhythm Assessment Sinus rhythm. sr5 15:59 Cardiac Rhythm Assessment Sinus rhythm. sr5 19:40 Cardiac Rhythm Assessment Sinus rhythm. sr5 22:54 Cardiac Rhythm Assessment Sinus rhythm. sr5 ED Course: 11:33 Patient arrived in ED. as 11:51 Triage completed. rb1 11:55 Patient has correct armband on for positive identification. Bed in low position. Call jp3 light in reach. Side rails up X 1. Verbal reassurance given. demand manager on. Pulse ox on. NIBP on. 11:58 Lenard Rosario MD is Attending Physician. rambo 12:00 Initial lab(s) drawn, by nm, sent to lab. Urine collected: clean catch specimen, clear, jp3 fabi colored, EKG done, by ED staff, reviewed by Lenard Rosario MD X-ray(s) taken. Inserted saline lock: 20 gauge in right antecubital area, using aseptic technique. Blood collected. 12:23 XRAY Chest (1 view) In Process Unspecified. EDMS 12:36 Oxygen administration via nasal cannula \\T\\ 3L/min. jp3 12:39 Michael Burks, RN is Primary Nurse. sr5 13:31 Gabriele Finney MD is Hospitalizing Provider. rambo 13:39 Shireen Woods MD is Hospitalizing Provider. rambo 13:57 Arm band placed on. sr5 15:19 No provider procedures requiring assistance completed. Patient admitted, IV remains in sr5 place. Administered Medications: Discontinued: NS 0.9% 1000 ml IV at 75 ml/hr continuous 12:47 Drug: Aspirin 162 mg Route: PO; sr5 14:31 Follow up: Response: No adverse reaction sr5 12:48 Drug: NS 0.9% 1000 ml Route: IV; Rate: 75 ml/hr; Site: right antecubital; sr5 13:48 Drug: Pepcid 20 mg Route: IVP; Site: right antecubital; sr5 14:32 Follow up: Response: No adverse reaction sr5 13:48 Drug: SOLU-Medrol 125 mg Route: IVP; Site: right antecubital; sr5 14:32 Follow up: Response: No adverse reaction sr5 13:56 Drug: AtroVENT Aerosol 0.5 mg Route: Inhalation; sr5 13:57 Drug: Xopenex 3.75 mg Route: Inhalation; sr5 14:44 Drug: Lasix 40 mg Route: IVP; Site: right antecubital; sr5 17:38 Follow up: Response: No change in condition sr5 Output: 15:59 Urine: 700ml (Voided); Total: 700ml. sr5 17:06 Urine: 500ml (Voided); Total: 1200ml. sr5 Outcome: 13:32 Decision to Hospitalize by Provider. rambo 22:54 Admitted to Tele Other ER Hold ROOM 9 sr5 22:54 Condition: improved 22:54 Instructed on the need for admit. 07/02 11:11 Patient left the ED. hb Signatures: Dispatcher [employer] Lenard Lindquist MD MD cha Martinez, Amelia as Barber, Rebecca, RN RN rb1 Kym Jim RN RN Michael Burks RN RN sr5 Baltazar Richmond jp3
--- NOTE | 2019-07-01 13:34 | EDPHYS ---
Physician Documentation [facility] Name: Juan Miguel Langston Age: 53 yrs Sex: Male : 1965 Arrival Date: 07/01/2019 Time: 11:33 Bed 9 Private MD: ED Physician Lenard Rosario HPI: 07/01 13:23 This 53 yrs old Male presents to ER via Wheelchair with complaints of High rambo Blood Pressure, Shortness Of Breath. 13:23 The patient has elevated blood pressure and discovered this at home. rambo Historical: - Allergies: 11:50 Azithromycin; rb1 11:50 Metoprolol Tartrate; rb1 - Home Meds: 11:50 aspirin 81 mg Oral TbEC [Active]; rb1 - PMHx: 11:50 Angina; COPD; Diabetes - NIDDM; High Cholesterol; Hypertension; Myocardial infarction; rb1 Sleep Apnea; - Immunization history:: Adult Immunizations up to date. - Social history:: Smoking status: Patient uses tobacco products, smokes one-half pack cigarettes per day. - Ebola Screening: : Patient negative for fever greater than or equal to 101.5 degrees Fahrenheit, and additional compatible Ebola Virus Disease symptoms. ROS: 13:23 Constitutional: Negative for fever, chills, and weight loss, Eyes: Negative for injury, rambo pain, redness, and discharge, ENT: Negative for injury, pain, and discharge, Neck: Negative for injury, pain, and swelling, Abdomen/GI: Negative for abdominal pain, nausea, vomiting, diarrhea, and constipation, Back: Negative for injury and pain, : Negative for injury, bleeding, discharge, and swelling, MS/Extremity: Negative for injury and deformity, Skin: Negative for injury, rash, and discoloration, Neuro: Negative for headache, weakness, numbness, tingling, and seizure, Psych: Negative for depression, anxiety, suicide ideation, homicidal ideation, and hallucinations, Allergy/Immunology: Negative for hives, rash, and allergies, Endocrine: Negative for neck swelling, polydipsia, polyuria, polyphagia, and marked weight changes, Hematologic/Lymphatic: Negative for swollen nodes, abnormal bleeding, and unusual bruising. 13:23 Cardiovascular: Positive for chest pain, palpitations. 13:23 Respiratory: Positive for cough, shortness of breath, wheezing, expiratory. Exam: 13:23 Constitutional: This is a well developed, well nourished patient who is awake, alert, rambo and in no acute distress. Head/Face: Normocephalic, atraumatic. Eyes: Pupils equal round and reactive to light, extra-ocular motions intact. Lids and lashes normal. Conjunctiva and sclera are non-icteric and not injected. Cornea within normal limits. Periorbital areas with no swelling, redness, or edema. ENT: Nares patent. No nasal discharge, no septal abnormalities noted. Tympanic membranes are normal and external auditory canals are clear. Oropharynx with no redness, swelling, or masses, exudates, or evidence of obstruction, uvula midline. Mucous membranes moist. Neck: Trachea midline, no thyromegaly or masses palpated, and no cervical lymphadenopathy. Supple, full range of motion without nuchal rigidity, or vertebral point tenderness. No Meningismus. Chest/axilla: Normal chest wall appearance and motion. Nontender with no deformity. No lesions are appreciated. Abdomen/GI: Soft, non-tender, with normal bowel sounds. No distension or tympany. No guarding or rebound. No evidence of tenderness throughout. Back: No spinal tenderness. No costovertebral tenderness. Full range of motion. Male : Normal genitalia with no discharge or lesions. Skin: Warm, dry with normal turgor. Normal color with no rashes, no lesions, and no evidence of cellulitis. MS/ Extremity: Pulses equal, no cyanosis. Neurovascular intact. Full, normal range of motion. Neuro: Awake and alert, GCS 15, oriented to person, place, time, and situation. Cranial nerves II-XII grossly intact. Motor strength 5/5 in all extremities. Sensory grossly intact. Cerebellar exam normal. Normal gait. Psych: Awake, alert, with orientation to person, place and time. Behavior, mood, and affect are within normal limits. 13:23 Cardiovascular: Rate: tachycardic, Rhythm: regular, Pulses: Pulses are 4+ in bilateral radial, brachial, femoral, popliteal, posterior tibial and and dorsalis pedis arteries.. Heart sounds: normal, JVD: is not appreciated. 13:23 Respiratory: moderate respiratory distress is noted, Respirations: labored breathing, Breath sounds: bronchial sounds, decreased breath sounds, that are moderate, rhonchi, Respiratory rate: 16 Vital Signs: 11:50 BP 157 / 82; Pulse 104; Resp 19; Temp 97.8(TE); Pulse Ox 93% on R/A; Weight 118.84 kg rb1 (R); Height 5 ft. 6 in. (167.64 cm) (R); 12:30 BP 157 / 76 LA Sitting (auto/lg); Pulse 107; Resp 21 S; Pulse Ox 96% on 3 lpm NC; jp3 13:00 BP 120 / 75 LA (auto/lg); Pulse 89; Resp 16; Pulse Ox 95% on 3 lpm NC; jp3 13:57 BP 132 / 88; Pulse 97; Resp 20; Temp 100.0; Pulse Ox 98% on R/A; sr5 15:19 BP 144 / 88; Pulse 91; Resp 20; Temp 99.5(O); Pulse Ox 94% on R/A; sr5 15:59 BP 126 / 69; Pulse 94; Resp 20; Temp 99.5(O); Pulse Ox 93% on R/A; Pain 8/10; sr5 17:56 BP 151 / 55; Pulse 88; Resp 22; Pulse Ox 92% on R/A; sr5 19:40 BP 133 / 82; Pulse 87; Resp 20; Temp 98.1; Pulse Ox 96% on R/A; Pain 4/10; sr5 20:21 BP 152 / 65; Pulse 71; Resp 22; Pulse Ox 88% on R/A; sr5 22:54 BP 157 / 91; Pulse 93; Resp 20; Temp 99.5(O); Pulse Ox 92% on R/A; Pain 4/10; sr5 11:50 Body Mass Index 42.29 (118.84 kg, 167.64 cm) rb1 15:59 pain behind eyes sr5 19:40 pain behind eyes sr5 20:21 placed back on nasal cannula at 2.5LPM, SpO2 quickly back up 95% sr5 22:54 headache, pain behind eyes remains sr5 MDM: 11:58 Patient medically screened. [facility] 13:26 Data reviewed: vital signs, nurses notes, lab test result(s), EKG, radiologic studies, rambo plain films. 07/01 11:59 Order name: Basic Metabolic Panel; Complete Time: 13:22 [facility] 07/01 11:59 Order name: CBC with Diff; Complete Time: 13:22 [facility] 07/01 11:59 Order name: LFT's; Complete Time: 13:22 [facility] 07/01 11:59 Order name: Magnesium; Complete Time: 13:22 [facility] 07/01 11:59 Order name: NT PRO-BNP; Complete Time: 13:22 [facility] 07/01 11:59 Order name: PT-INR; Complete Time: 13:22 [facility] 07/01 11:59 Order name: Troponin (emerg Dept Use Only); Complete Time: 13:22 [facility] 07/01 11:59 Order name: Lipase; Complete Time: 13:22 [facility] 07/01 11:59 Order name: UDS; Complete Time: 13:22 [facility] 07/01 13:30 Order name: Influenza Screen (a \T\ B) [facility] 07/01 13:49 Order name: CBC with Automated Diff [facility] 07/01 13:49 Order name: CBC with Automated Diff [facility] 07/01 13:49 Order name: Comprehensive Metabolic Panel [facility] 07/01 13:49 Order name: Comprehensive Metabolic Panel [facility] 07/01 11:59 Order name: XRAY Chest (1 view); Complete Time: 13:22 [facility] 07/01 13:49 Order name: Troponin I [facility] 07/01 13:49 Order name: Troponin I [facility] 07/01 13:49 Order name: Troponin I [facility] 07/01 13:49 Order name: Troponin I [facility] 07/01 13:50 Order name: Sputum Gram Stain [facility] 07/01 13:50 Order name: Sputum Culture [facility] 07/01 13:52 Order name: ABG [facility] 07/01 14:54 Order name: ABG Arterial Blood Gas [facility] 07/01 17:38 Order name: Troponin (emerg Dept Use Only) [facility] 07/01 18:09 Order name: Troponin (Emerg Dept Use Only) [facility] 07/01 23:58 Order name: Troponin I [facility] 07/02 07:00 Order name: Procalcitonin [facility] 07/02 07:01 Order name: Urinalysis [facility] 07/02 07:14 Order name: Urine Microscopic Only [facility] 07/02 08:20 Order name: Glucose, Ancillary Testing [facility] 07/01 11:59 Order name: EKG; Complete Time: 12:01 [facility] 07/01 11:59 Order name: Cardiac monitoring; Complete Time: 12:30 [facility] 07/01 11:59 Order name: EKG - Nurse/Tech; Complete Time: 12:30 [facility] 07/01 11:59 Order name: IV Saline Lock; Complete Time: 12:30 [facility] 07/01 11:59 Order name: Labs collected and sent; Complete Time: 12:30 [facility] 07/01 11:59 Order name: O2 Per Protocol; Complete Time: 12:30 [facility] 07/01 11:59 Order name: O2 Sat Monitoring; Complete Time: 12:31 [facility] 07/01 13:49 Order name: CONS Pharmacy Consult [facility] 07/01 13:49 Order name: Physical Therapy Consult [facility] 07/01 13:49 Order name: Heart Healthy [facility] 07/02 08:09 Order name: RAD EDWI Administered Medications: Discontinued: NS 0.9% 1000 ml IV at 75 ml/hr continuous 12:47 Drug: Aspirin 162 mg Route: PO; sr5 14:31 Follow up: Response: No adverse reaction sr5 12:48 Drug: NS 0.9% 1000 ml Route: IV; Rate: 75 ml/hr; Site: right antecubital; sr5 13:48 Drug: Pepcid 20 mg Route: IVP; Site: right antecubital; sr5 14:32 Follow up: Response: No adverse reaction sr5 13:48 Drug: SOLU-Medrol 125 mg Route: IVP; Site: right antecubital; sr5 14:32 Follow up: Response: No adverse reaction sr5 13:56 Drug: AtroVENT Aerosol 0.5 mg Route: Inhalation; sr5 13:57 Drug: Xopenex 3.75 mg Route: Inhalation; sr5 14:44 Drug: Lasix 40 mg Route: IVP; Site: right antecubital; sr5 17:38 Follow up: Response: No change in condition sr5 Disposition: 07/01/19 13:32 Hospitalization ordered by Shireen Woods for Inpatient Admission. Preliminary diagnosis are Dyspnea, Chronic obstructive pulmonary disease with (acute) exacerbation, Tobacco abuse counseling, Tobacco use, Obesity, unspecified, Hypoxemia. - Bed requested for [facility] ER HOLD. - Status is Inpatient Admission. hb - Condition is Fair. - Problem is new. - Symptoms have improved. UTI on Admission? No Signatures: Dispatcher [employer] EDWI Lenard Rosario MD MD cha Barber, Rebecca, RN RN rb1 Kym Jim RN RN Michael Burks RN RN sr5 Lilian Valdez Corrections: (The following items were deleted from the chart) 13:34 13:32 Hospitalization Ordered by Gabriele Finney MD for Inpatient Admission. eb Preliminary diagnosis is Dyspnea; Chronic obstructive pulmonary disease with (acute) exacerbation; Tobacco abuse counseling; Tobacco use; Obesity, unspecified. Bed requested for Telemetry/MedSurg (Inpatient). Status is Inpatient Admission. Condition is Fair. Problem is new. Symptoms have improved. UTI on Admission? No. rambo 13:39 13:34 07/01/2019 13:32 Hospitalization Ordered by Gabriele Finney MD for Inpatient rambo Admission. Preliminary diagnosis is Dyspnea; Chronic obstructive pulmonary disease with (acute) exacerbation; Tobacco abuse counseling; Tobacco use; Obesity, unspecified. Bed requested for Telemetry/MedSurg (Inpatient). Status is Inpatient Admission. Condition is Fair. Problem is new. Symptoms have improved. UTI on Admission? No. eb 14:50 13:39 07/01/2019 13:32 Hospitalization Ordered by Shireen Woods MD for Inpatient rambo Admission. Preliminary diagnosis is Dyspnea; Chronic obstructive pulmonary disease with (acute) exacerbation; Tobacco abuse counseling; Tobacco use; Obesity, unspecified. Bed requested for Telemetry/MedSurg (Inpatient). Status is Inpatient Admission. Condition is Fair. Problem is new. Symptoms have improved. UTI on Admission? No. rambo 17:03 14:50 07/01/2019 13:32 Hospitalization Ordered by Shireen Woods MD for Inpatient eb Admission. Preliminary diagnosis is Dyspnea; Chronic obstructive pulmonary disease with (acute) exacerbation; Tobacco abuse counseling; Tobacco use; Obesity, unspecified; Hypoxemia. Bed requested for Telemetry/MedSurg (Inpatient). Status is Inpatient Admission. Condition is Fair. Problem is new. Symptoms have improved. UTI on Admission? No. rambo 07/02 11:11 07/01 17:03 07/01/2019 13:32 Hospitalization Ordered by Shireen Woods MD for Inpatient hb Admission. Preliminary diagnosis is Dyspnea; Chronic obstructive pulmonary disease with (acute) exacerbation; Tobacco abuse counseling; Tobacco use; Obesity, unspecified; Hypoxemia. Bed requested for [facility] ER HOLD. Status is Inpatient Admission. Condition is Fair. Problem is new. Symptoms have improved. UTI on Admission? No. eb
[2019-07-01] MEDS ORDERED: METHYLPREDNISOLONE 125 MG INJ ONE (13:38)
[2019-07-01] MEDS ORDERED: IPRATROPIUM BROM 0.5MG/2.5ML ONE (13:38)
[2019-07-01] MEDS ORDERED: FAMOTIDINE 20 MG/2 ML VIAL IV ONE (13:38)
[2019-07-01] MEDS ORDERED: ONDANSETRON 4 MG/2 ML VIAL IV PRN (13:39)
[2019-07-01] MEDS ORDERED: MORPHINE 2 MG/ML SYR IV PRN (13:39)
[2019-07-01] MEDS ORDERED: ACETAMINOPHEN 500 MG TAB PO PRN (13:39)
[2019-07-01] MEDS ORDERED: MAGNESIUM SULFATE 1 gm IVPB 1 GM/100 ML BAG IV ONE (13:40)
[2019-07-01] MEDS ORDERED: GUAIFENESIN/DM 5 ML UCUP PO PRN (13:40)
[2019-07-01] MEDS ORDERED: HYDRALAZINE HCL 20 MG/ML VIAL IV PRN (13:40)
[2019-07-01] MEDS ORDERED: Oxycodone HCl/Acetaminophen 1 TAB TAB PO PRN (13:44)
[2019-07-01] MEDS ORDERED: D50W 25 GM/50 ML SYRINGE/VIAL IV PRN (13:44)
[2019-07-01] MEDS ORDERED: GLUCAGON 1 MG/VIAL IM PRN (13:44)
[2019-07-01] MEDS ORDERED: LEVALBUTEROL 1.25 MG/3 ML NEB ONE (13:52)
[2019-07-01] MEDS: LEVALBUTEROL 1.25 MG/3 ML NEB IH ONE (14:00)
[2019-07-01] MEDS ORDERED: NA CHLORIDE 0.9% 1,000 ML IV SCH (14:00)
[2019-07-01] MEDS ORDERED: FUROSEMIDE 40 MG/4 ML VIAL ONE (14:42)
[2019-07-01 14:48] LABS: Arterial Blood Carboxyhemoglob 7.1 % (0-1.5); Blood Gas Oxyhemoglobin 80.7 % (94-97)
[2019-07-01] MEDS: INSULIN -REGULAR HUMAN 50 UNIT/0.5 ML ML SQ SCH ×2 (16:30→21:00)
[2019-07-01] MEDS ORDERED: FUROSEMIDE 40 MG TABLET PO SCH (17:00)
[2019-07-01] MEDS: ALBUTEROL 2.5 MG/3 ML NEB SOL NEB SCH ×2 (17:57→20:00)
[2019-07-01] MEDS: METHYLPREDNISOLONE 125 MG INJ IV SCH (18:00)
[2019-07-01] MEDS ORDERED: CEFTRIAXONE 1 GM/NS 50 ML 1 GM/50 ML BAG IV SCH (20:00)
[2019-07-01] MEDS ORDERED: FAMOTIDINE 20 MG TAB PO SCH (21:00)
[2019-07-01] MEDS ORDERED: GUAIFENESIN 600 MG SA TAB PO SCH (21:00)
[2019-07-02] MEDS: METHYLPREDNISOLONE 125 MG INJ IV SCH
[2019-07-02] MEDS ORDERED: METHYLPREDNISOLONE 125 MG INJ ONE (00:23)
[2019-07-02] MEDS ORDERED: CEFTRIAXONE/SWI 1gm 1 GM/10 ML SYR ONE (00:23)
--- NOTE | 2019-07-02 02:01 | HP ---
Date of Admission: 07/01/2019 Presenting Complaint: Shortness of breath and elevated blood pressure at home. History Of Present Illness: Juan Miguel Kwong is a 53-year-old male with past medical histor y of obesity, hypertension, diabetes mellitus, COPD, chronic tobacco use, on home MDI with [place], presented because of chest congestion, shortness of breath and wheezing since the last 4 days. He d enies any sick contacts or cough contact. He denies any sputum production and wheezing continued to worsen. Patient admits to nocturnal symptoms affecting sleep. He denies any headache or dizziness. Initially in the ER at home, his blood pressure was reported to be at over 200, but on presentation in the ED, his blood pressure was in the 150 systolic. He was tachycardic. He has received DuoNebs and patient feels better. Past Medical History: Significant for hypertension, diabetes, obesity, COPD. History of CAD status post recent cardiac cath, but no previous stent placement. Home Medications: See medication list. Allergies: ZITHROMAX, BETA BLOCKERS, METOPROLOL. Family History: Significant for hypertension and CAD. Social History: Patient is still continuing to smoke about 1 pack a day. No history of alcohol or i llicit drug use. Resides in the community with the girlfriend. Review of Systems: All systems reviewed x10 were negative except as mentioned above. Physical Examination: Vital Signs: Blood pressure of 154/76, pulse of 93, respiratory rate of 18, O2 saturation is 95% on 2 L nasal cannula. Temperature afebrile at 98. General: Obese, middle-aged male, sitting up in bed, receiving nebulizer treatment . HEENT: Head is atraumatic, normocephalic. Pupils equal and reactive to light. No conjunctival inje ctions. Neck: No JVD. No carotid bruit. Respiratory: Good air entry, but decreased breath sounds with mild basal crepitations. Cardiovascular: S1 and S2. Tachycardic. No murmur. GI: Obese, soft. Bowel sounds positive. No organomegaly. Extremities: 1+ pedal edema. No calf tenderness bilaterally. Neuro: Patient is alert, conversant. No neurological focal motor deficit. Diagnostic Studies: EKG shows sinus tachy at 113 beats per minute. No ST-segment changes. Laboratory Data: Potassium 3.9, AST 82, ALT 210, troponin 0.03. ProBNP of 34, lipase 225. eGFR of 88, magnesium 2.0. PH 7.37, pCO2 of 50, PO2 of 60 on 2 L nasal cannula. WBC 10.3 with 74% neutrophi ls, no bands. INR 0.9. Imaging Studies: Chest x-ray shows no acute pulmonary congestion or infiltrates. Impression: 1.Acute chronic obstructive pulmonary disease exacerbation. 2.Possible upper respiratory viral syndrome. 3.Obesity. 4.Hypertension. Plan: We will admit patient to observation. We will do DuoNebs, IV steroids, as well as mucolytic, continue oxygen supplementation with slow weaning as tolerated. We will do gentle IV fluid, though r isk of fluid overload with possible underlying systolic CHF considered. We will do daily troponin to avoid demand mediated ischemia. We will do empirical antibiotics for now. We will give subcutaneou s Lovenox for DVT prophylaxis. Resume patient's home regimen. Then we will do insulin with sliding scale, but we will resume metformin for now. If patient's shortness of breath continues or persists, we will do IV Lasix despite proBNP that was in the normal range. Continue lisinopril. Total time spent in review of record and discussion with patient, greater than 60 minutes. We will d o nicotine patch for tobacco cessation, which was also advised. Patient is a full code. EO/MODL Voice ID: [id number]
[2019-07-02] MEDS ORDERED: ALBUTEROL 2.5 MG/3 ML NEB SOL ONE ×3 (02:12→12:20)
[2019-07-02] MEDS: ALBUTEROL 2.5 MG/3 ML NEB SOL NEB SCH ×3 (03:00→08:10)
[2019-07-02 04:19] LABS: Absolute Lymphocytes (CBC) 1.1 K/uL (0.7-4.9); Basophils % 0.4 % (0-1.3); Hematocrit 44.8 % (39.6-49.0); Lymphocytes % 8.6 % (15.3-44.8); MPV 9.8 fL (7.6-11.3); RBC Red Blood Cell Count 5.17 M/uL (4.33-5.43)
[2019-07-02 04:29] LABS: ALT/SGPT 199 U/L (12-78); AST/SGOT 39 U/L (15-37); Albumin 3.4 g/dL (3.4-5.0); Alkaline Phosphatase 57 U/L (45-117); BUN Blood Urea Nitrogen 18 mg/dL (7-18); Bicarbonate 32 mmol/L (21-32); Bilirubin Total 0.2 mg/dL (0.2-1.0); Glucose Level 152 mg/dL (74-106); Potassium 4.6 mmol/L (3.5-5.1); Protein, Total 7.1 g/dL (6.4-8.2); Sodium Level 138 mmol/L (136-145); Troponin I < 0.02 ng/mL (0.0-0.045)
[2019-07-02 06:46] LABS: Urine Appearance CLEAR; Urine Bilirubin NEGATIVE (NEG); Urine Blood NEGATIVE (NEG); Urine Color YELLOW; Urine Glucose NEGATIVE (NEG); Urine Protein 2+ (NEG); Urine Specific Gravity 1.025 (1.005-1.030); Urine Urobilinogen 0.2 mg/dL (0.2-1.0)
[2019-07-02 07:00] LABS: Urine Microscopic Reflex ORDER UMIC
[2019-07-02 07:13] LABS: Urine Bacteria NONE SEEN /HPF (NONE SEEN); Urine Culture Reflex Order NOT NEEDED
[2019-07-02] MEDS: INSULIN -REGULAR HUMAN 50 UNIT/0.5 ML ML SQ SCH (07:30)
--- NOTE | 2019-07-02 08:08 | RAD REPORT ---
EXAM DESCRIPTION: RAD - Chest Pa And Lat (2 Views) - 07/02/2019 6:50 am CLINICAL HISTORY: follow up URI, shortness of breath, cough COMPARISON: July 01 TECHNIQUE: PA and lateral views of the chest were obtained. FINDINGS: The lungs are normal volume. No new mass or consolidation. Scarring or linear atelectasis in the anterior left mid chest similar to comparison. Heart size is normal and central vasculature is within normal limits. No pleural effusion or pneumothorax seen. No acute bony finding noted. No aortic abnormality. IMPRESSION: No new or progressive cardiopulmonary finding. Linear atelectasis or scarring in the left mid chest.
[2019-07-02 08:23] VITALS: O2SAT 91; BMI 42.3
[2019-07-02 08:24] VITALS: BP 129/85; TEMP 97.7
--- NOTE | 2019-07-02 08:35 | P.DS ---
Admission Date: 07/01/19 Discharge Date: 07/02/19 Primary Care Provider: none Disposition: ROUTINE DISCHARGE Discharge Condition: GOOD Reason for Admission: SOB Consultations: none Procedures: CXR: FINDINGS: The lungs are normal volume. No new mass or consolidation. Scarring or linear atelectasis in the anterior left mid chest similar to comparison. Heart size is normal and central vasculature is within normal limits. No pleural effusion or pneumothorax seen. No acute bony finding noted. No aortic abnormality. IMPRESSION: No new or progressive cardiopulmonary finding. Linear atelectasis or scarring in the left mid chest. Medical Problem List: Shortness of breath secondary to COPD exacerbation Hypertension CAD Diabetes mellitus type 2 [id number] Brief History of Present Illness: 53-year-old male with history of hypertension, diabetes, COPD, tobacco use. Patient presented with increasing shortness of breath and wheezing over the last 4 days. Patient was evaluated the emergency room. Patient required multiple breathing treatments. Initial x-ray unremarkable. Blood pressure elevated upon our arrival. Patient was admitted for observation Hospital Course: Patient presented with shortness of breath and wheezing. Patient found to have COPD exacerbation. Chest x-ray showed no pneumonia. Patient was observed. Patient refused IV steroid treatment. At discharge he is without significant shortness of breath. Pro calcitonin negative. Room-air saturations within normal range. At discharge patient will continue with prednisone 10 mg daily for 7 days. Patient will continue with his medications of Symbicort 2 puffs twice daily and Pro air 2 puffs 3 times a day as needed for shortness of breath. Recommend follow up with pulmonology as previously directed. Patient with history of CAD and hypertension. At discharge patient will continue with his current medications of Imdur 30 mg daily, lisinopril 20 mg daily, and nitroglycerin as needed for chest pain. Prior echocardiogram performed in April unremarkable. Prior heart catheterization performed in April showed mild to moderate CAD. Medical therapy was recommended at that time. Recommend follow up with cardiology as directed. Patient with history of diabetes. At discharge patient will continue with metformin 500 mg daily. Further adjustment can be done by his PCP. Vital Signs/Physical Exam: Temp Pulse Resp BP Pulse Ox 97.7 F 22 H 129/85 90 L 07/02/19 04:00 07/02/19 04:00 07/02/19 04:00 07/02/19 04:00 General: Alert, In no apparent distress, Oriented x3, Cooperative HEENT: Atraumatic Neck: Supple Respiratory: Clear to auscultation bilaterally, Normal air movement Cardiovascular: Normal pulses, Regular rate/rhythm Gastrointestinal: Normal bowel sounds, Soft and benign, Non-distended Musculoskeletal: No erythema, No tenderness, No warmth Integumentary: No tenderness/swelling, No erythema, No warmth, No cyanosis Neurological: Normal speech, Normal strength at 5/5 x4 extr, Normal tone, Normal affect Lymphatics: No axilla or inguinal lymphadenopathy Laboratory Data at Discharge: WBC 12.2 K/uL (4.3-10.9) H D 07/02/19 03:43 Hgb 14.2 g/dL (13.6-17.9) 07/02/19 03:43 Hct 44.8 % (39.6-49.0) 07/02/19 03:43 Plt Count 279 K/uL (152-406) 07/02/19 03:43 PT 10.9 SECONDS (9.5-12.5) 07/01/19 12:12 INR 0.92 07/01/19 12:12 Sodium 138 mmol/L (136-145) 07/02/19 03:43 Potassium 4.6 mmol/L (3.5-5.1) 07/02/19 03:43 BUN 18 mg/dL (7-18) 07/02/19 03:43 Creatinine 0.85 mg/dL (0.55-1.3) 07/02/19 03:43 Glucose 152 mg/dL (74-106) H 07/02/19 03:43 Magnesium 2.0 mg/dL (1.8-2.4) 07/01/19 12:12 Total Bilirubin 0.2 mg/dL (0.2-1.0) 07/02/19 03:43 AST 39 U/L (15-37) H 07/02/19 03:43 ALT 199 U/L (12-78) H 07/02/19 03:43 Alkaline Phosphatase 57 U/L (45-117) 07/02/19 03:43 Troponin I < 0.02 ng/mL (0.0-0.045) 07/02/19 03:43 Lipase 225 U/L (73-393) 07/01/19 12:12 Home Medications: Isosorbide Dinitrate [Isordil] 30 mg PO DAILY 06/22/19 Lisinopril [Zestril] 20 mg PO DAILY 06/22/19 Metformin ER [Glucophage ER*] 500 mg PO DAILY 06/22/19 Nitroglycerin [Nitrostat*] 1 tab PO DAILY PRN 06/22/19 Albuterol Sulfate [Proair Hfa] 2 puff IN TID PRN #1 hfa.aer.ad 07/02/19 Budesonide/Formoterol Fumarate [Symbicort 160-4.5 Mcg Inhaler] 2 puff IH BID #1 hfa.aer.ad 07/02/19 predniSONE [Deltasone*] 10 mg PO DAILY #7 tab 07/02/19 New Medications: Albuterol Sulfate [Proair Hfa] 2 puff IN TID PRN #1 hfa.aer.ad PRN Reason: shortness of breath Budesonide/Formoterol Fumarate [Symbicort 160-4.5 Mcg Inhaler] 2 puff IH BID #1 hfa.aer.ad predniSONE [Deltasone*] 10 mg PO DAILY #7 tab Patient Discharge Instructions: 1. Recommend follow up with his PCP in 1 week to follow up this hospitalization. 2. Patient presented with shortness of breath and wheezing. Patient found to have COPD exacerbation. Chest x-ray showed no pneumonia. Patient was observed. Patient refused IV steroid treatment. At discharge he is without significant shortness of breath. Pro calcitonin negative. Room-air saturations within normal range. At discharge patient will continue with prednisone 10 mg daily for 7 days. Patient will continue with his medications of Symbicort 2 puffs twice daily and Pro air 2 puffs 3 times a day as needed for shortness of breath. Recommend follow up with pulmonology as previously directed. 3. Patient with history of CAD and hypertension. At discharge patient will continue with his current medications of Imdur 30 mg daily, lisinopril 20 mg daily, and nitroglycerin as needed for chest pain. Prior echocardiogram performed in April unremarkable. Prior heart catheterization performed in April showed mild to moderate CAD. Medical therapy was recommended at that time. Recommend follow up with cardiology as directed. 4. Patient with history of diabetes. At discharge patient will continue with metformin 500 mg daily. Further adjustment can be done by his PCP. Diet: ADA Activity: Ad yasmine Time spent managing pt's care (in minutes): 55
[2019-07-02] MEDS ORDERED: lisinopriL 20 MG TAB PO SCH (09:00)
[2019-07-02] MEDS ORDERED: NICOTINE 21 MG/PAT TD SCH (09:00)
[2019-07-02] MEDS ORDERED: METFORMIN ER 500 MG TAB PO SCH (09:00)
[2019-07-02] MEDS ORDERED: predniSONE 20 MG TAB PO SCH (09:00)
[2019-07-02] MEDS ORDERED: ENOXAPARIN 40 MG/0.4 ML SQ SCH (09:00)
[2019-07-02] MEDS ORDERED: ISOSORBIDE DINITRATE 30 MG PO SCH (09:00)
[2019-07-02] MEDS ORDERED: lisinopriL 20 MG TAB ONE (09:14)
[2019-07-02] MEDS ORDERED: predniSONE 20 MG TAB ONE (09:14)
[2019-07-02] MEDS ORDERED: FAMOTIDINE 20 MG TAB ONE (09:14)
[2019-07-02] MEDS ORDERED: ENOXAPARIN 40 MG/0.4 ML SQ ONE (09:14)
--- NOTE | 2019-07-02 10:20 | EKG ---
Test Date: 2019-07-01 Test Time: 12:26:02 Dinkey Engineer: SHANI MEASUREMENT RESULTS: Intervals: Rate: 101 MO: 118 QRSD: 92 QT: 320 QTc: 414 [place]: P: 66 MO: 118 QRS: 84 T: -50 INTERPRETIVE STATEMENTS: Sinus tachycardia ST & T wave abnormality, consider inferior ischemia Abnormal ECG Compared to ECG 06/21/2019 22:39:24 Sinus rhythm no longer present ST (T wave) deviation still present Possible ischemia still present Electronically Signed On 07-02-19 10:18:36 RN TRANSPORT by Eduardo Hernandes
[2019-07-02] MEDS ORDERED: CEFTRIAXONE/SWI 1gm 1 GM/10 ML SYR IV SCH (21:00)
== END 2019-07-02 13:50 | disposition home or self-care (01) | DRG 191 ==
LOC: ER 11:30 → ERHOLD 13:44
PROVIDERS: ADMIT Internal Medicine; ATTEND Family Medicine
DX: J44.1 Chronic obstructive pulmonary disease with (acute) exacerbation (principal); Z68.41 Body mass index [BMI] 40.0-44.9, adult; I10 Essential (primary) hypertension; I25.10 Atherosclerotic heart disease of native coronary artery without angina pectoris; E11.9 Type 2 diabetes mellitus without complications; E66.9 Obesity, unspecified; F17.200 Nicotine dependence, unspecified, uncomplicated
CPT/HCPCS: 36415; 71045; 71046; 80048; 80053; 80076; 80307; 81003; 81015; 82805; 82947; 83690; 83735; 83880; 84145; 84484; 85025; 85610; 87804; 93005; 94640; 96374; 96375; 99285; J0696; J1650; J1940; J2930; J7030; J7512

== ENCOUNTER 2019-09-13 19:17 | Emergency (ER) | payer SELFPAY ==
--- OUTSIDE RECORDS SUMMARY | 2019-09-13 19:21 | XMS REPORT ---
:1965 Author Organization [facility] Address [address] [place] [address] Dr. Fierro [address] [place] [id number] Care Team Providers Name Role Phone Unavailable Unavailable Unavailable Problems This patient has no known problems. Allergies, Adverse Reactions, Alerts This patient has no known allergies or adverse reactions. Medications This patient has no known medications.
--- OUTSIDE RECORDS SUMMARY | 2019-09-13 19:26 | XMS REPORT | Summary of Care ---
:1965 Author Organization [facility] Address [address] [place] [address] Care Team Providers Name Role Phone Ekta Lucero Primary Care Provider Reason for Referral (Routine) Status Reason Specialty Diagnoses / Referred By Referred To Procedures Contact Contact New Request Pulmonary Disease Diagnoses SOB (shortness of breath) on exertion Ekta Lucero FNP Procedures CONSULT/REFERRAL PULMONARY [address] [place], [place] [address] Reason for Visit Reason Comments Referral/consult Encounter Details Date Type Department Care Team Description 08/16/2019 Telephone [facility] Ekta Lucero FNP Referral/consult [address] [address] [place] [address] Allergies Active Allergy Reactions Severity Noted Date Comments Azithromycin Swelling High 08/11/2018 Metoprolol Other - See comments 07/11/2018 Lowers heart rate too low documented as of this encounter (statuses as of 08/16/2019) Medications Medication Sig Dispensed Refills Start Date End Date Status nitroglycerin Place 1 Tab 30 Tab 30 09/18/2013 Active (NITROSTAT) 0.4 mg under the tongue sublingual tablet every 5 (five) minutes as needed for Chest pain. albuterol 90 Inhale 2 Puffs 8.5 g 3 07/18/2019 Active mcg/actuation every 6 (six) inhalerIndications: hours as needed SOB (shortness of for Wheezing or breath) on exertion Shortness of Breath. fluticasone Inhale 1 Puff 2 1 Each 11 07/18/2019 Active propion-salmeterol (two) times (AIRDUO RESPICLICK) daily. 113-14 mcg/actuation AePBIndications: Dyspnea on exertion, Cigarette nicotine dependence without complication, Sleep-disordered breathing lisinopril 20 mg Take 2 tablets 180 tablet 0 07/18/2019 10/16/2019 Active tabletIndications: by mouth daily Chest pain, for 90 days. unspecified type omeprazole 40 mg Take 1 capsule 90 capsule 0 07/18/2019 10/16/2019 Active capsuleIndications: by mouth daily Chest pain, for 90 days. unspecified type isosorbide mononitrate Take 1 tablet by 90 tablet 0 07/18/2019 10/16/2019 Active 60 mg 24 hr mouth every tabletIndications: morning for 90 Other chest pain, days. Coronary artery disease involving [place] coronary artery of [place] heart without angina pectoris, Essential hypertension carvediloL 6.25 mg Take 1 tablet by 180 tablet 0 07/18/2019 10/16/2019 Active tabletIndications: mouth 2 (two) Chest pain, times daily with unspecified type meals for 90 days. aspirin 81 mg chewable Take 1 tablet by 30 tablet 2 07/19/2019 10/17/2019 Active tabletIndications: mouth daily with Chest pain, breakfast for 90 unspecified type days. furosemide 40 mg Take 0.5 tablets 45 tablet 0 07/19/2019 10/17/2019 Active tabletIndications: by mouth daily Chest pain, for 90 days. unspecified type Pitavastatin (LIVALO) Take 1 tablet by 90 tablet 3 07/19/2019 Active 4 mg TabIndications: mouth daily. Mixed hyperlipidemia clopidogreL (PLAVIX) Take 1 tablet by 90 tablet 3 07/19/2019 Active 75 mg mouth daily. tabletIndications: Nonobstructive atherosclerosis of coronary artery metformin ER 500 mg 24 Take 1 tablet by 60 tablet 5 07/19/2019 Active hr tabletIndications: mouth 2 (two) Borderline diabetes times daily with mellitus meals. traMADol 50 mg Take 1 tablet by 28 tablet 0 08/16/2019 Active tabletIndications: mouth every 6 Bilateral leg and foot (six) hours as pain needed for Pain (scale 4-6). documented as of this encounter (statuses as of 08/16/2019) Active Problems Problem Noted Date Morbid obesity with body mass index of 40.0-49.9 07/17/2019 Nonobstructive atherosclerosis of coronary artery 03/11/2018 Essential hypertension 12/07/2013 HLD (hyperlipidemia) 12/07/2013 Borderline diabetes mellitus 12/07/2013 Obesity (BMI 30-39.9) 12/07/2013 Tobacco abuse 12/07/2013 Atypical chest pain 11/20/2013 documented as of this encounter (statuses as of 08/16/2019) Immunizations Name Administration Dates Next Due Influenza Virus Vaccine (3+ yrs) 09/19/2013 Influenza Virus Vaccine Quad .5 mL IM 04/20/2019 6+ MO Pneumococcal Polysaccharide, PPSV23 04/20/2019, 09/19/2013 (PNEUMOVAX) Tdap 04/20/2019 Zoster Vaccine Recombinant 04/20/2019 Zoster(Zostavax)(Shingles) 04/20/2019 (Deferred: Immunizations Up to Date) documented as of this encounter Social History Tobacco Use Types Packs/Day Years Used Date Current Every Day Smoker 0.25 26 Smokeless Tobacco: Former User Comments: Down [...] Treatment Date Type Specialty Care Team Description 02/18/2020 Office Visit Cardiology Eunice Chang MD [address] [place] [address] [place] [address] Health Maintenance Due Date Last Done Comments COLONOSCOPY 09/07/2015 Zoster Recombinant Vaccine (SHINGRIX) (2 06/15/2019 04/20/2019 of 2) DTaP,Tdap,and Td Vaccines (2 - Td) 04/20/2029 04/20/2019 INFLUENZA VACCINE Completed 04/20/2019, 09/19/2013 PNEUMOCOCCAL 0-64 YEARS COMBINED SERIES Completed 04/20/2019, 09/19/2013 documented as of this encounter Results Not on filedocumented in this encounter Visit Diagnoses Diagnosis SOB (shortness of breath) on exertion - Primary Shortness of breath documented in this encounter Insurance Payer Benefit Plan Subscriber ID Effective Phone Address Type / Group Dates ROSEANNA CONDON [id number] 2019-Presmichael [phone] [facility] PRIMARY CARE nt [address] [place] [address] ROSEANNA [place]. I ROSEANNA COShelby [id number] [address] [address] [facility] [address] [facility] [address] [place] [address] documented as of this encounter
--- OUTSIDE RECORDS SUMMARY | 2019-09-13 19:26 | XMS REPORT | Summary of Care ---
:1965 Author Organization [facility] Address [address] [place] [address] Care Team Providers Name Role Phone Ekta Lucero Primary Care Provider Reason for Visit Reason Comments SWELLING Bilateral hands and lower extremities Encounter Details Date Type Department Care Team Description 08/16/2019 Office Visit [facility]ly [facility] Ekta Lucero FNP [address] [place] [address] Bilateral leg and foot pain (Primary Dx); [facility] mellitus Clinic [address] [place] [phone] Allergies Active Allergy Reactions Severity Noted [...] chest pain, days. Coronary artery disease involving solomon coronary artery of solomon heart without angina pectoris, Essential hypertension carvediloL [...] Sign Reading Time Taken Comments Blood Pressure - - Pulse - - Temperature - - Respiratory Rate 24 08/16/2019 9:15 AM DYE MAKER Oxygen Saturation - - Inhaled Oxygen Concentration - - Weight 117.5 kg (259 lb) 08/16/2019 9:15 AM DYE MAKER Height 167.6 cm (5' 6") 08/16/2019 9:15 AM DYE MAKER Body Mass Index 41.8 08/16/2019 9:15 AM DYE MAKER documented in this encounter Progress Notes Ekta Lucero FNP - 08/16/2019 9:00 AM CST Cc: Chief Complaint Patient presents with SWELLING Bilateral hands and lower extremities HPI Juan Miguel Langston is a 53 year old male with complaints for stiffness and pain in his hands. States they feel swollen and tight. Also complaining of pain and stiffness to both feet. States they also feel swollen. It hurts when he walks up an incline or step. Has been taking lasix 20mg a day with little to no relief. States he doesn't seem to be offloading any extra fluid. Has taken his girlfriend's 40mg a couple of times without any different result. Is wondering why we can't get this regulated. Pt is homeless and lives in and around the [facility]. .Denies fevers or chills Allergies Juan Miguel is allergic to azithromycin and metoprolol. Medications Outpatient Medications Prior to Visit Medication Sig Dispense Refill clopidogreL (PLAVIX) 75 mg tablet Take 1 tablet by mouth daily. 90 tablet 3 metformin ER 500 mg 24 hr tablet Take 1 tablet by mouth 2 (two) times daily with meals. 60 tablet 5 Pitavastatin (LIVALO) 4 mg Tab Take 1 tablet by mouth daily. 90 tablet 3 albuterol 90 mcg/actuation inhaler Inhale 2 Puffs every 6 (six) hours as needed for Wheezing or Shortness of Breath. 8.5 g 3 aspirin 81 mg chewable tablet Take 1 tablet by mouth daily with breakfast for 90 days. 30 tablet2 carvediloL 6.25 mg tablet Take 1 tablet by mouth 2 (two) times daily with meals for 90 days. 180tablet 0 fluticasone propion-salmeterol (AIRDUO RESPICLICK) 113-14 mcg/actuation AePB Inhale 1 Puff 2 (two) times daily. 1 Each 11 furosemide 40 mg tablet Take 0.5 tablets by mouth daily for 90 days. 45 tablet 0 isosorbide mononitrate 60 mg 24 hr tablet Take 1 tablet by mouth every morning for 90 days. 90 tablet 0 lisinopril 20 mg tablet Take 2 tablets by mouth daily for 90 days. 180 tablet 0 omeprazole 40 mg capsule Take 1 capsule by mouth daily for 90 days. 90 capsule 0 nitroglycerin (NITROSTAT) 0.[address] 1 Tab under the tongue every 5 (five) minutes as needed for Chest pain. 30 Tab 30 No facility-administered medications prior to visit. Histories Past Medical History: Diagnosis Date Arthritis CAD (coronary artery disease) RCA with 30-40% lesion Diabetes mellitus Heart murmur HLD (hyperlipidemia) HTN (hypertension) Obesity (BMI 30.0-34.9) Sinus pause up to 4.7 seconds at night during hospitalization in november 2013 Tobacco abuse Past Surgical History: Procedure Laterality Date [place] RIGHT HEART CATH O2 SATURATION & CARDIAC OUTPUT x 3 last done in [address] [facility] Social History Socioeconomic History Marital status: Single [...] Smoking status: Current Every Day Smoker Packs/day: 0.25 Years: 26.00 Pack years: 6.50 Smokeless tobacco: Former User Tobacco comment: Down [...] file Gets together: Not on file Attends restorationism service: Not on file Active member of [...] with girlfriend of 2 years. Family History Problem Relation Age of Onset Coronary Heart Disease Mother of [place] at age 61 Diabetes Maternal Grandmother Review of Systems Constitutional: Positive for activity change and fatigue. HENT: Negative. Respiratory: Positive for cough, shortness of breath and wheezing. Cardiovascular: Positive for leg swelling. Negative for chest pain and palpitations. Musculoskeletal: Positive for arthralgias, back pain, gait problem and joint swelling. Skin: Negative. Psychiatric/Behavioral: Negative. Endocrine: Endocrine negative Vital Signs Resp 24 | Ht 5' 6" (1.676 m) | Wt 259 lb (117.5 kg) | BMI 41.80 kg/m Physical Exam Constitutional: He is oriented to person, place, and time. He appears well- developed and well-nourished. No distress. HENT: Right Ear: External ear normal. Left Ear: External ear normal. Mouth/Throat: Oropharynx is clear and moist. Eyes: Conjunctivae and EOM are normal. Cardiovascular: Normal rate, regular rhythm and normal heart sounds. Pulmonary/Chest: Effort normal and breath sounds normal. Musculoskeletal: He exhibits tenderness. He exhibits no edema or deformity. Hands are bilaterally red and swollen without efusion or crepitus. Marked decreased jacquard fixer strength bilaterally Bilateral lower extremities note minimal swelling. Good capillary refill. Tenderness with flexion and extension Neurological: He is alert and oriented to person, place, and time. No sensory deficit. Assessment/Plan 1. Bilateral leg and foot pain - traMADol 50 mg tablet; Take 1 tablet by mouth every 6 (six) hours as needed for Pain (scale 4-6).Dispense: 28 tablet; Refill: 0 Suspect that pain in hands and feet are related to living outside in the cold climate. Swelling is more related to osteoarthritis than fluid retention since the diuretics are not producing increase urination or change in weight. Appropriate plan of care, desired health behaviors, goals and medications discussed with patient andeducational resources and self-management tools provided, as applicable. Patient/family/guardian voice understanding. Barriers to adherence: none Ability to manage care: Good As necessary, prescribed medications and potential significant medication side effects or medicationinteractions were discussed with the patient and pt will let me know if any occur. Call or return to clinic prn if these symptoms worsen or fail to improve as anticipated. Call or report to ER if symptoms should symptoms progress or worsen. AVS reviewed and given to patient at conclusion of visit. The patient indicates understanding of these issues and agrees with the plan. [facility] Lilian Hernandez LVN - 08/16/2019 9:00 AM CSTJuan Miguel Amor Langston is a 53 year old male Patient here today for swelling to bilateral hands and lower extremities. Reports 7 pain on scale 0/10, MD notified. Reviewed medications and allergies with patient today. Fall Risk Assessment/Screening performed with patient today and patient is not at risk for falls. documented in this encounter Plan of Treatment Date Type Specialty Care Team Description 02/18/2020 Office Visit Cardiology Eunice Chang MD [address] [place] [address] [place] [address] [phone] Health Maintenance Due Date Last Done Comments COLONOSCOPY 09/07/2015 Zoster Recombinant Vaccine (SHINGRIX) (2 06/15/2019 04/20/2019 of 2) DTaP,Tdap,and Td Vaccines (2 - Td) 04/20/2029 04/20/2019 INFLUENZA VACCINE Completed 04/20/2019, 09/19/2013 PNEUMOCOCCAL 0-64 YEARS COMBINED SERIES Completed 04/20/2019, 09/19/2013 documented as of this encounter Procedures Procedure Name Priority Date/Time Associated Diagnosis Comments POCT GLUCOSE(AGE Routine 08/16/2019 9:29 AM Borderline diabetes Results for this >30DAYS) DYE MAKER mellitus procedure are in the results section. documented in this encounter Results POCT GLUCOSE(AGE >30DAYS) (08/16/2019 9:29 AM DYE MAKER) POCT Glu (age>30days) 173 (A) 70 - 110 mg/dL Specimen Blood - CAPILLARY documented in this encounter Visit Diagnoses Diagnosis Bilateral leg and foot pain - Primary Pain in limb Borderline diabetes mellitus Other abnormal glucose documented in this encounter Insurance Payer Benefit Plan / Subscriber ID Effective Phone Address Type Group Dates ROSEANNA CONDON [id number] 2019-Shyann [phone] [facility] PRIMARY CARE PRIMARY CARE nt [address] [place] [address] documented as of this encounter
--- OUTSIDE RECORDS SUMMARY | 2019-09-13 19:27 | XMS REPORT | Summary of Care ---
:1965 Author Organization [facility] Address [address] [place] [address] Care Team Providers Name Role Phone Ekta Lucero Primary Care Provider Reason for Visit Reason Comments SWELLING Bilateral hands and lower extremities Encounter Details Date Type Department Care Team Description 08/16/2019 Office Visit Counts include 234 beds at the [facility] Ekta Lucero FNP [address] [place] [address] Bilateral leg and foot pain (Primary Dx); [facility] diabetes mellitus Clinic [address] [place] [phone] Allergies Active Allergy Reactions Severity Noted [...] chest pain, days. Coronary artery disease involving twenty-nine palms coronary artery of twenty-nine palms heart without angina pectoris, Essential hypertension carvediloL [...] - Respiratory Rate 24 08/16/2019 9:15 AM ELECTRONIC TRAIN CONTROL TECHNICIAN Oxygen Saturation - - Inhaled Oxygen Concentration - - Weight 117.5 kg (259 lb) 08/16/2019 9:15 AM ELECTRONIC TRAIN CONTROL TECHNICIAN Height 167.6 cm (5' 6") 08/16/2019 9:15 AM ELECTRONIC TRAIN CONTROL TECHNICIAN Body Mass Index 41.8 08/16/2019 9:15 AM ELECTRONIC TRAIN CONTROL TECHNICIAN documented in this encounter Progress Notes Ekta [...] homeless and lives in and around the [facility]. .Denies fevers or chills Allergies Juan Miguel [...] abuse Past Surgical History: Procedure Laterality Date [place] RIGHT HEART CATH O2 SATURATION & CARDIAC OUTPUT x 3 last done in [address] [facility] Social History Socioeconomic History Marital status: [...] file Gets together: Not on file Attends druze service: Not on file Active member of [...] of Onset Coronary Heart Disease Mother of [place] at age 61 Diabetes Maternal Grandmother Review [...] swollen without efusion or crepitus. Marked decreased process control programmer strength bilaterally Bilateral lower extremities note minimal [...] issues and agrees with the plan. [facility] Lilian Hernandez LVN - 08/16/2019 9:00 AM [...] 02/18/2020 Office Visit Cardiology Eunice Chang MD [address] [place] [address] [place] [address] [phone] Health Maintenance Due Date Last Done Comments [...] AM Borderline diabetes Results for this >30DAYS) ELECTRONIC TRAIN CONTROL TECHNICIAN mellitus procedure are in the results section. documented in this encounter Results POCT GLUCOSE(AGE >30DAYS) (08/16/2019 9:29 AM ELECTRONIC TRAIN CONTROL TECHNICIAN) POCT Glu (age>30days) 173 (A) 70 - 110 mg/dL Specimen Blood - CAPILLARY documented in this encounter Visit Diagnoses Diagnosis Bilateral leg and foot pain - Primary Pain in limb Borderline diabetes mellitus Other abnormal glucose documented in this encounter Insurance Payer Benefit Plan / Subscriber ID Effective Phone Address Type Group Dates ROSEANNA CONDON [id number] 2019-Shyann [phone] [id number] PRIMARY CARE PRIMARY CARE nt [address] [place] [address] documented as of this encounter
--- OUTSIDE RECORDS SUMMARY | 2019-09-13 19:27 | XMS REPORT | Summary of Care ---
:1965 Author Organization [facility] Address [address] [place] [address] Care Team Providers Name Role Phone Ekta Lucero JOSEFINA Primary Care Provider Reason for Visit Reason Comments Refill Request Lisinopril Encounter Details Date Type Department Care Team Description 07/12/2019 Refill [facility] Cardiology- Eunice Chang MD Refill Request [address] (Lisinopril) [address] [place] [address] [address] [place] [address] [place], [place] [address] Allergies Active Allergy Reactions Severity Noted Date Comments Azithromycin Swelling High 08/11/2018 Metoprolol Other - See comments 07/11/2018 Lowers heart rate too low documented as of this encounter (statuses as of 07/17/2019) Medications Medication Sig Dispensed Refills Start Date End Date Status nitroglycerin Place 1 Tab under 30 Tab 30 09/18/2013 Active (NITROSTAT) 0.4 mg the tongue every sublingual tablet 5 (five) minutes as needed for Chest pain. aspirin 81 mg chewable Take 1 tablet by 30 tablet 11 04/16/2016 Active tablet mouth daily. lisinopril 20 mg Take 40 mg by 0 Active tablet mouth daily. amLODIPine 5 mg tablet Take 5 mg by 0 Active mouth daily. albuterol 90 Inhale 2 Puffs 8.5 g 3 01/11/2019 Active mcg/actuation every 6 (six) inhalerIndications: hours as needed SOB (shortness of for Wheezing or breath) on exertion Shortness of Breath. omeprazole 40 mg Take 1 capsule by 30 capsule 5 01/11/2019 Active capsuleIndications: mouth daily. Chest pain, unspecified type metFORMIN 500 mg Take 1 tablet by 30 tablet 5 01/17/2019 Active tabletIndications: mouth daily. Borderline diabetes mellitus atorvastatin (LIPITOR) Take 1 tablet by 30 tablet 5 01/17/2019 Active 20 mg mouth at bedtime. tabletIndications: Mixed hyperlipidemia isosorbide mononitrate Take 1 tablet by 30 tablet 5 02/13/2019 Active 60 mg 24 hr mouth every tabletIndications: morning. Other chest pain, Coronary artery disease involving jackson coronary artery of jackson heart without angina pectoris, Essential hypertension varenicline (CHANTIX Take one 0.5mg 1 Package 0 03/30/2019 Active STARTING MONTH BOX) tab by mouth once 0.5 mg (11)- 1 mg (42) daily for 3 days, tabletIndications: then one 0.5mg Dyspnea on exertion, tab twice daily Cigarette nicotine for 4 days, then dependence without one 1mg tab twice complication daily. clopidogrel 75 mg Take 75 mg by 0 Active tablet mouth daily. fluticasone Inhale 1 Puff 2 1 Each 11 05/28/2019 Active propion-salmeterol (two) times (AIRDUO RESPICLICK) daily. 113-14 mcg/actuation AePBIndications: Dyspnea on exertion, Cigarette nicotine dependence without complication, Sleep-disordered breathing documented as of this encounter (statuses as of 07/17/2019) Active Problems Problem Noted Date Nonobstructive atherosclerosis of coronary artery 03/11/2018 Essential hypertension 12/07/2013 HLD (hyperlipidemia) 12/07/2013 Borderline diabetes mellitus 12/07/2013 Obesity (BMI 30-39.9) 12/07/2013 Tobacco abuse 12/07/2013 Chest pain 11/20/2013 documented as of this encounter (statuses as of 07/17/2019) Immunizations Name Administration Dates Next Due Influenza Virus Vaccine (3+ yrs) 09/19/2013 Influenza Virus Vaccine Quad .5 mL IM 04/20/2019 6+ MO Pneumococcal Polysaccharide, PPSV23 09/19/2013 (PNEUMOVAX) Zoster(Zostavax)(Shingles) 04/20/2019 (Deferred: Immunizations Up to Date) [...] Treatment Date Type Specialty Care Team Description 07/19/2019 Office Visit Family Medicine Ekta Lucero, RUBBER TUBING BACKER [address] [place] [address] [phone] Care, Ang Primary 08/02/2019 Office Visit Pulmonary Disease Mayela Funes DO [address] [place] [phone] 02/18/2020 Office Visit Cardiology Eunice Chang MD [address] [place] [address] [address] [place], [place] [address] Health Maintenance Due Date Last Done Comments DTaP,Tdap,and Td Vaccines (1 - Tdap) 1976 COLONOSCOPY 09/07/2015 Zoster Recombinant Vaccine (SHINGRIX) (1 09/07/2015 of 2) PNEUMOCOCCAL 0-64 YEARS COMBINED SERIES Completed 09/19/2013 INFLUENZA VACCINE Completed 04/20/2019, 09/19/2013 documented as of this encounter Results Not on filedocumented in this encounter Insurance Payer Benefit Plan Subscriber ID Effective Phone Address Type / Group Dates ROSEANNA CONDON [id number] 2019-Prese [phone] [facility] PRIMARY CARE PRIMARY CARE nt [address] [place] [address] [place] [id number] [address] [address] [facility] ent [address] [facility] [place] [address] documented as of this encounter
--- OUTSIDE RECORDS SUMMARY | 2019-09-13 19:27 | XMS REPORT | Summary of Care ---
:1965 Author Organization [facility] Address [address] [place] [address] Care Team Providers Name Role Phone Ekta Lucero JOSEFINA Primary Care Provider Encounter Details Date Type Department Care Team Description 07/17/2019 Orders Only [facility] Doctor Unassigned, No [address] [facility] [place] [address] [address] [place] [address] Allergies Active Allergy Reactions Severity Noted Date [...] Other chest pain, Coronary artery disease involving kobuk coronary artery of kob[place] heart without angina pectoris, Essential hypertension varenicline [...] 07/19/2019 Office Visit Family Medicine Ekta Lucero, NEW CAR GET READY MECHANIC [address] [place] [address] [phone] Care, Ang Primary 08/02/2019 Office Visit Pulmonary Disease Mayela Funes DO [address] [place] [phone] 02/18/2020 Office Visit Cardiology Eunice Chang MD [address] [facility] [address] [place], [place] [address] Health Maintenance Due Date Last Done Comments DTaP,Tdap,and Td Vaccines (1 - Tdap) 1976 COLONOSCOPY 09/07/2015 Zoster Recombinant Vaccine (SHINGRIX) (1 09/07/2015 of 2) PNEUMOCOCCAL 0-64 YEARS COMBINED SERIES Completed 09/19/2013 INFLUENZA VACCINE Completed 04/20/2019, 09/19/2013 documented as of this encounter Procedures Procedure Name Priority Date/Time Associated Diagnosis Comments CONSENT/REFUSAL FOR Routine 07/17/2019 8:37 AM OUTDOOR ADVENTURE GUIDES DIAGNOSIS AND TREATMENT documented in this encounter Results Not on filedocumented in this encounter Insurance Payer Benefit Plan Subscriber ID Effective Phone Address Type / Group Dates ROSEANNA CONODN [id number] 2019-[place] [address] PRIMARY CARE PRIMARY CARE nt [address] [place] [address] [place]. [id number] [address] [address] [facility] C I H C ent [address] [facility] [place] [id number] documented as of this encounter
--- OUTSIDE RECORDS SUMMARY | 2019-09-13 19:28 | XMS REPORT | Summary of Care ---
:1965 Author Organization [facility] Address [address] [place] [address] Care Team Providers Name Role Phone Ekta Lucero Primary Care Provider Reason for Visit Reason Comments Lab Results Encounter Details Date Type Department Care Team Description 07/17/2019 Telephone [facility] Ekta Fraser FNP Lab Results [facility] [address], [address] [place] [address] [place] [address] Allergies Active Allergy Reactions Severity Noted Date Comments Azithromycin Swelling High 08/11/2018 Metoprolol Other - See comments 07/11/2018 Lowers heart rate too low documented as of this encounter (statuses as of 07/17/2019) Medications Medication Sig Dispensed Refills Start Date End Date Status atorvastatin 40 mg Take 1 tablet 30 tablet 5 07/17/2019 Active tabletIndications: by mouth at Mixed hyperlipidemia bedtime. metFORMIN 500 mg Take 1 tablet 60 tablet 5 07/17/2019 Active tabletIndications: by mouth 2 Borderline diabetes (two) times mellitus daily with meals. nitroglycerin Place 1 Tab 30 Tab 30 09/18/2013 Suspended (NITROSTAT) 0.4 mg under the sublingual tablet tongue every 5 (five) minutes as needed for Chest pain. Additional information lisinopril 20 mg tablet Take 40 mg by mouth daily. 0 Suspended albuterol 90 mcg/actuation Inhale 2 Puffs every 6 8.5 g 3 01/11/2019 Suspended inhalerIndications: SOB (six) hours as needed for (shortness of breath) on Wheezing or Shortness of exertion Breath. Additional information omeprazole 40 mg Take 1 capsule by 30 capsule 5 01/11/2019 Suspended capsuleIndications: Chest pain, mouth daily. unspecified type Additional information metFORMIN 500 mg Take 1 30 tablet 5 01/17/2019 07/17/2019 Discontinued tabletIndications: tablet by (Dose adjustment) Borderline diabetes mouth mellitus daily. atorvastatin (LIPITOR) Take 1 30 tablet 5 01/17/2019 07/17/2019 Discontinued 20 mg tablet by (Dose adjustment) tabletIndications: mouth at Mixed hyperlipidemia bedtime. isosorbide mononitrate Take 1 30 tablet 5 02/13/2019 Suspended 60 mg 24 hr tablet by tabletIndications: mouth every Other chest pain, morning. Coronary artery disease involving kalispel coronary artery of kalispel heart without angina pectoris, Essential hypertension Additional information clopidogrel 75 mg tablet Take 75 mg by mouth 0 Suspended daily. fluticasone Inhale 1 Puff 2 (two) 1 Each 11 05/28/2019 Suspended propion-salmeterol (AIRDUO times daily. RESPICLICK) 113-14 mcg/actuation AePBIndications: Dyspnea on exertion, Cigarette nicotine dependence without complication, Sleep-disordered breathing Additional information documented as of this encounter (statuses as [...] Team Description 07/19/2019 Office Visit Family Medicine Nic Ekta, JOSEFINA [address] [place] [address] [phone] Care, Luis Primary 08/02/2019 Office Visit Pulmonary Disease Mayela Funes, [address] [place] [phone] 02/18/2020 Office Visit Cardiology Eunice Chang MD [address] [place] [address] [address] [place], [place] [phone] Health Maintenance Due Date Last Done Comments DTaP,Tdap,and Td Vaccines (1 - Tdap) 1976 COLONOSCOPY 09/07/2015 Zoster Recombinant Vaccine (SHINGRIX) (1 09/07/2015 of 2) PNEUMOCOCCAL 0-64 YEARS COMBINED SERIES Completed 09/19/2013 INFLUENZA VACCINE Completed 04/20/2019, 09/19/2013 documented as of this encounter Results Not on filedocumented in this encounter Visit Diagnoses Diagnosis Mixed hyperlipidemia - Primary Borderline diabetes mellitus Other abnormal glucose documented in this encounter Insurance Payer Benefit Plan Subscriber ID Effective Phone Address Type / Group Dates ROSEANNA CONDON [id number] 2019-[place] [address] PRIMARY CARE PRIMARY CARE nt [address] [place] [address] [place] [id number] [address]-[place] [address] [facility] C I H [facility] ent 20 [facility] [place] [place] [address] documented as of this encounter
--- OUTSIDE RECORDS SUMMARY | 2019-09-13 19:28 | XMS REPORT | Summary of Care ---
:1965 Author Organization [facility] Address [address] [place] [address] Care Team Providers Name Role Phone Ekta Lucero Primary Care Provider Reason for Visit Reason Comments Lab Results Encounter Details Date Type Department Care Team Description 07/17/2019 Telephone [facility] Ekta Fraser FNP Lab Results [facility] [address], [address] [place] [address] [place] [address] Allergies Active Allergy Reactions Severity Noted Date Comments Azithromycin Swelling High 08/11/2018 Metoprolol Other - See comments 07/11/2018 Lowers heart rate too low documented as of this encounter (statuses as of 07/18/2019) Medications Medication Sig Dispensed Refills Start Date [...] chest pain, morning. Coronary artery disease involving [place] coronary artery of [place] heart without angina pectoris, Essential hypertension Additional information clopidogrel 75 mg tablet Take 75 mg by mouth 0 Suspended daily. fluticasone Inhale 1 Puff 2 (two) 1 Each 11 05/28/2019 Suspended propion-salmeterol (AIRDUO times daily. RESPICLICK) 113-14 mcg/actuation AePBIndications: Dyspnea on exertion, Cigarette nicotine dependence without complication, Sleep-disordered breathing Additional information documented as of this encounter (statuses as of 07/18/2019) Active Problems Problem Noted Date Morbid obesity with body mass index of 40.0-49.9 07/17/2019 Nonobstructive atherosclerosis of coronary artery 03/11/2018 Essential hypertension 12/07/2013 HLD (hyperlipidemia) 12/07/2013 Borderline diabetes mellitus 12/07/2013 Obesity (BMI 30-39.9) 12/07/2013 Tobacco abuse 12/07/2013 Atypical chest pain 11/20/2013 documented as of this encounter (statuses as of 07/18/2019) Immunizations Name Administration Dates Next Due Influenza [...] 07/19/2019 Office Visit Family Medicine Ekta Lucero, OPERATIONS SPECIALIST [address] [place], [place] [id number] Care, Luis Primary 08/02/2019 Office Visit Pulmonary Disease Mayela Funes, DO [address] [place] [address] 02/18/2020 Office Visit Cardiology Eunice Chang MD [address] [facility] [address] [place] [address] [phone] Health Maintenance Due Date Last Done Comments [...] Address Type / Group Dates ROSEANNA CONDON [id number] [address] [address] [facility] [address] [place] [address] [place]. [place]. [id number] [address] [address] [address] [facility] [address] [place] [address] documented as of this encounter
--- OUTSIDE RECORDS SUMMARY | 2019-09-13 19:29 | XMS REPORT | Summary of Care ---
:1965 Author Organization [facility] Address [address] [place] [id number] Care Team Providers Name Role Phone Ekta Lucero Primary Care Provider Reason for Visit Reason Comments Follow-up Post hospitalization Lab Results Encounter Details Date Type Department Care Team Description 07/19/2019 Office Visit [facility] Ekta Lucero FNP [address] [place] [address] Mixed hyperlipidemia (Primary Dx); [facility] Primary Nonobstructive atherosclerosis of coronary artery; Clinic Borderline diabetes mellitus [address] [place] [phone] Allergies Active Allergy Reactions Severity Noted Date Comments Azithromycin Swelling High 08/11/2018 Metoprolol Other - See comments 07/11/2018 Lowers heart rate too low documented as of this encounter (statuses as of 07/30/2019) Medications Medication Sig Dispensed Refills Start End Date Status Date nitroglycerin Place 1 Tab 30 Tab 30 Active (NITROSTAT) 0.4 mg under the 4 sublingual tablet tongue every 5 (five) minutes as needed for Chest pain. albuterol 90 Inhale 2 8.5 g 3 Active mcg/actuation Puffs every 6 0 inhalerIndications: (six) hours SOB (shortness of as needed for breath) on exertion Wheezing or Shortness of Breath. fluticasone Inhale 1 Puff 1 Each 11 Active propion-salmeterol 2 (two) times 0 (AIRDUO RESPICLICK) daily. 113-14 mcg/actuation AePBIndications: Dyspnea on exertion, Cigarette nicotine dependence without complication, Sleep-disordered breathing lisinopril 20 mg Take 2 180 tablet 0 10/16/19 Active tabletIndications: tablets by 0 20 Chest pain, mouth daily unspecified type for 90 days. omeprazole 40 mg Take 1 90 capsule 0 10/16/19 Active capsuleIndications: capsule by 0 20 Chest pain, mouth daily unspecified type for 90 days. isosorbide Take 1 tablet 90 tablet 0 10/16/19 Active mononitrate 60 mg 24 by mouth 0 20 hr every morning tabletIndications: for 90 days. Other chest pain, Coronary artery disease involving [place] coronary artery of [place] heart without angina pectoris, Essential hypertension carvediloL 6.25 mg Take 1 tablet 180 tablet 0 10/16/19 Active tabletIndications: by mouth 2 0 20 Chest pain, (two) times unspecified type daily with meals for 90 days. aspirin 81 mg Take 1 tablet 30 tablet 2 10/17/19 Active chewable by mouth 0 20 tabletIndications: daily with Chest pain, breakfast for unspecified type 90 days. furosemide 40 mg Take 0.5 45 tablet 0 10/17/19 Active tabletIndications: tablets by 0 20 Chest pain, mouth daily unspecified type for 90 days. Pitavastatin Take 1 tablet 90 tablet 3 Active (LIVALO) 4 mg by mouth 0 TabIndications: daily. Mixed hyperlipidemia clopidogreL (PLAVIX) Take 1 tablet 90 tablet 3 Active 75 mg by mouth 0 tabletIndications: daily. Nonobstructive atherosclerosis of coronary artery metformin ER 500 mg Take 1 tablet 60 tablet 5 Active 24 hr by mouth 2 0 tabletIndications: (two) times Borderline diabetes daily with mellitus meals. metFORMIN 500 mg Take 1 tablet 180 tablet 0 07/19/19 Discontinued tabletIndications: by mouth 2 0 20 (Dose Borderline diabetes (two) times adjustment) mellitus daily with meals for 90 days. atorvastatin 40 mg Take 1 tablet 90 tablet 0 07/19/19 Discontinued tabletIndications: by mouth at 0 20 (Cost of Mixed hyperlipidemia bedtime for medication) 90 days. clopidogreL 75 mg Take 1 tablet 30 tablet 2 07/19/19 Discontinued tabletIndications: by mouth 0 20 (Cost of Chest pain, daily. medication) unspecified type documented as of this encounter (statuses as of 07/30/2019) Active Problems Problem Noted Date Morbid obesity with body mass index of 40.0-49.9 07/17/2019 Nonobstructive atherosclerosis of coronary artery 03/11/2018 Essential hypertension 12/07/2013 HLD (hyperlipidemia) 12/07/2013 Borderline diabetes mellitus 12/07/2013 Obesity (BMI 30-39.9) 12/07/2013 Tobacco abuse 12/07/2013 Atypical chest pain 11/20/2013 documented as of this encounter (statuses as of 07/30/2019) Immunizations Name Administration Dates Next Due Influenza [...] Sign Reading Time Taken Comments Blood Pressure 129/65 07/19/2019 9:01 AM PORTRAIT ARTIST Pulse 84 07/19/2019 9:01 AM PORTRAIT ARTIST Temperature 36.9 C (98.4 F) 07/19/2019 9:01 AM PORTRAIT ARTIST Respiratory Rate 20 07/19/2019 9:01 AM PORTRAIT ARTIST Oxygen Saturation 96% 07/19/2019 9:01 AM PORTRAIT ARTIST Inhaled Oxygen Concentration - - Weight 116.6 kg (257 lb) 07/19/2019 9:01 AM PORTRAIT ARTIST Height 167.6 cm (5' 6") 07/19/2019 9:01 AM PORTRAIT ARTIST Body Mass Index 41.48 07/19/2019 9:01 AM PORTRAIT ARTIST documented in this encounter Progress Notes Ekta Lucero, VISUAL EFFECTS ARTIST - 07/19/2019 9:00 AM CST Cc: Chief Complaint Patient presents with Follow-up Post hospitalization Lab Results HPI Juan Miguel Langston is a 53 year old male in for hospital follow up from 07/17. For dizziness and atypical chest pain. States that on the morning of the his blood sugar was 123 prior to eating a muffin and coffee with sugar. A couple of hours later it was 300 and he felt dizzy. Was admitted to tele unit for 7 hours. EKG and trop was negative. The noted some mild lower leg edema for which he was give lasix. He had some wheezing on admission and was given duoneb EKG and ECHO were done. LVF normal, EF of 60-65%, Right ventricular systolic pressure was 35-40 with diastolic dysfunction I has seen him the week before and wanted to increase his metformin to 500mg bid and increase the lipitor to 40mg since the A1C was still 7 and his lipids were still elevated Allergies Juan Miguel is allergic to azithromycin and metoprolol. Medications Outpatient Medications Prior to Visit Medication Sig Dispense Refill albuterol 90 mcg/actuation inhaler Inhale 2 Puffs every 6 (six) hours as needed for Wheezing or Shortness of Breath. 8.5 g 3 aspirin 81 mg chewable tablet Take 1 tablet by mouth daily with breakfast for 90 days. 30 tablet2 atorvastatin 40 mg tablet Take 1 tablet by mouth at bedtime for 90 days. 90 tablet 0 carvediloL 6.25 mg tablet Take 1 tablet by mouth 2 (two) times daily with meals for 90 days. 180tablet 0 clopidogreL 75 mg tablet Take 1 tablet by mouth daily. 30 tablet 2 furosemide 40 mg tablet Take 0.5 tablets by mouth daily for 90 days. 45 tablet 0 isosorbide mononitrate 60 mg 24 hr tablet Take 1 tablet by mouth every morning for 90 days. 90 tablet 0 lisinopril 20 mg tablet Take 2 tablets by mouth daily for 90 days. 180 tablet 0 metFORMIN 500 mg tablet Take 1 tablet by mouth 2 (two) times daily with meals for 90 days. 180 tablet 0 omeprazole 40 mg capsule Take 1 capsule by mouth daily for 90 days. 90 capsule 0 fluticasone propion-salmeterol (AIRDUO RESPICLICK) 113-14 mcg/actuation AePB Inhale 1 Puff 2 (two) times daily. 1 Each 11 nitroglycerin (NITROSTAT) 0.4 mg sublingual tablet [...] abuse Past Surgical History: Procedure Laterality Date CO RIGHT HEART CATH O2 SATURATION & CARDIAC OUTPUT x 3 last done in 2017 at [facility] Social History Socioeconomic History Marital status: Single [...] file Gets together: Not on file Attends buddhist service: Not on file Active member of [...] of Onset Coronary Heart Disease Mother of [place] at age 61 Diabetes Maternal Grandmother Review of Systems Constitutional: Positive for fatigue. HENT: Negative. Eyes: Negative. Respiratory: Positive for cough, chest tightness, shortness of breath and wheezing. Cardiovascular: Positive for chest pain and leg swelling. Genitourinary: Negative. Musculoskeletal: Positive for arthralgias and back pain. Skin: Negative. Neurological: Positive for dizziness and light-headedness. Endocrine: Endocrine negative Vital Signs BP 129/65 (BP Location: Left arm, Patient Position: Sitting) | Pulse 84 | Temp 36.9 C (98.4 F)(Oral) | Resp 20 | Ht 5' 6" (1.676 m) | Wt 257 lb ( 116.6 kg) | SpO2 96% | BMI 41.48 kg/m Physical Exam Constitutional: He is oriented to person, place, and time. He appears well- developed and well-nourished. No distress. HENT: Mouth/Throat: Oropharynx is clear and moist. Eyes: Pupils are equal, round, and reactive to light. Conjunctivae and EOM are normal. Neck: Normal range of motion. Cardiovascular: Normal rate, regular rhythm, normal heart sounds and intact distal pulses. Pulmonary/Chest: Effort normal and breath sounds normal. No respiratory distress. He has no wheezes.He has no rales. Abdominal: Soft. Bowel sounds are normal. Musculoskeletal: He exhibits edema. Neurological: He is alert and oriented to person, place, and time. Skin: Skin is warm and dry. Psychiatric: He has a normal mood and affect. His behavior is normal. Thought content normal. Assessment/Plan 1. Mixed hyperlipidemia - Pitavastatin (LIVALO) 4 mg Tab; Take 1 tablet by mouth daily. Dispense: 90 tablet; Refill: 3 2. Nonobstructive atherosclerosis of coronary artery - clopidogreL (PLAVIX) 75 mg tablet; Take 1 tablet by mouth daily. Dispense: 90 tablet; Refill: 3 3. Borderline diabetes mellitus - metformin ER 500 mg 24 hr tablet; Take 1 tablet by mouth 2 (two) times daily with meals. Dispense: 60 tablet; Refill: 5 Appropriate plan of care, desired health behaviors, [...] issues and agrees with the plan. [facility] Lilian Hernandez LVN - 07/19/2019 9:00 AM Arvind Amor Langston is a 53 year old male Patient here today for follow up post hospitalization and lab results. Reports 0 pain on scale 0/10,MD notified. Reviewed medications and allergies with patient today. Fall Risk Assessment/Screening performed with patient today and patient is not at risk for falls. documented in this encounter Plan of Treatment Date Type Specialty Care Team Description 08/02/2019 Office Visit Pulmonary Disease Mayela Funes DO [address] [place] [phone] 02/18/2020 Office Visit Cardiology Eunice Chang MD [address] [place] [phone] Health Maintenance Due Date Last Done Comments COLONOSCOPY 09/07/2015 Zoster Recombinant Vaccine (SHINGRIX) (2 06/15/2019 04/20/2019 of 2) DTaP,Tdap,and Td Vaccines (2 - Td) 04/20/2029 04/20/2019 INFLUENZA VACCINE Completed 04/20/2019, 09/19/2013 PNEUMOCOCCAL 0-64 YEARS COMBINED SERIES Completed 04/20/2019, 09/19/2013 documented as of this encounter Results Not on filedocumented in this encounter Visit Diagnoses Diagnosis Mixed hyperlipidemia - Primary Nonobstructive atherosclerosis of coronary artery Borderline diabetes mellitus Other abnormal glucose documented in this encounter Insurance Payer Benefit Plan / Subscriber ID Effective Phone Address Type Group Dates ROSEANNA CONDON [id number] 2019-Shyann [phone] [facility] [address] [place] [address] documented as of this encounter
--- OUTSIDE RECORDS SUMMARY | 2019-09-13 19:29 | XMS REPORT | Summary of Care ---
:1965 Author Organization [facility] - [facility] Address [address] [place] [address] Care Team Providers Name Role Phone Ekta Martinez Primary Care Provider Reason for Referral (Routine) Status Reason Specialty Diagnoses / Referred By Referred To Procedures Contact Contact New Request Diagnoses Chest pain, unspecified type Marge Bailon Nancy, FNP Procedures Discharge Follow-up: PCP EKTA MARTINEZ; 2 Weeks JOSEFINA Cheng [address] [place] [address] Phone: Radiology Services (STAT) Status Reason Specialty Diagnoses / Referred By Referred To Procedures Contact Contact New Request Diagnostic Diagnoses Chest pain, unspecified type Pema Valle Radiology Procedures Chest 1 View J, DO [address] [place] [address] Reason for Visit Reason Comments Chest Pain Shortness of Breath Auth/Cert Status Reason Specialty Diagnoses / Referred By Referred To Procedures Contact Contact [facility] [address] [place] [address] [place] [address] Encounter Details Date Type Department Care Team Description 07/17/2019 - Emergency [facility] Medicine Surgery Pema Valle DO [address] [place], [place] [id number] Atypical chest pain 07/18/2019 Unit Jamal Ponce MD [address] [place] [phone] [place] [address] Dr Escamilla, KATHARINE [address] Allergies Active Allergy Reactions Severity Noted Date Comments Azithromycin Swelling High 08/11/2018 Metoprolol Other - See comments 07/11/2018 Lowers heart rate too low documented as of this encounter (statuses as of 07/18/2019) Medications Medication Sig Dispensed Refills Start End Date Status Date nitroglycerin Place 1 Tab 30 Tab 30 Active (NITROSTAT) 0.4 mg under the 4 sublingual tablet tongue every 5 (five) minutes as needed for Chest pain. albuterol 90 Inhale 2 Puffs 8.5 g 3 Active mcg/actuation every 6 (six) 0 inhalerIndications: hours as SOB (shortness of needed for breath) on exertion Wheezing or Shortness of Breath. fluticasone Inhale 1 Puff 1 Each 11 Active propion-salmeterol 2 (two) times 0 (AIRDUO RESPICLICK) daily. 113-14 mcg/actuation AePBIndications: Dyspnea on exertion, Cigarette nicotine dependence without complication, Sleep-disordered breathing metFORMIN 500 mg Take 1 tablet 180 tablet 0 10/16/19 Active tabletIndications: by mouth 2 0 20 Borderline diabetes (two) times mellitus daily with meals for 90 days. atorvastatin 40 mg Take 1 tablet 90 tablet 0 10/16/19 Active tabletIndications: by mouth at 0 20 Mixed bedtime for 90 hyperlipidemia days. lisinopril 20 mg Take 2 tablets 180 tablet 0 10/16/19 Active tabletIndications: by mouth daily 0 20 Chest pain, for 90 days. unspecified type omeprazole 40 mg Take 1 capsule 90 capsule 0 10/16/19 Active capsuleIndications: by mouth daily 0 20 Chest pain, for 90 days. unspecified type isosorbide Take 1 tablet 90 tablet 0 10/16/19 Active mononitrate 60 mg by mouth every 0 20 24 hr morning for 90 tabletIndications: days. Other chest pain, Coronary artery disease involving [place] coronary artery of [place] heart without angina pectoris, Essential hypertension carvediloL 6.25 mg Take 1 tablet 180 tablet 0 10/16/19 Active tabletIndications: by mouth 2 0 20 Chest pain, (two) times unspecified type daily with meals for 90 days. aspirin 81 mg Take 1 tablet 30 tablet 2 10/17/19 Active chewable by mouth daily 0 20 tabletIndications: with breakfast Chest pain, for 90 days. unspecified type furosemide 40 mg Take 0.5 45 tablet 0 10/17/19 Active tabletIndications: tablets by 0 20 Chest pain, mouth daily unspecified type for 90 days. clopidogreL 75 mg Take 1 tablet 30 tablet 2 Active tabletIndications: by mouth 0 Chest pain, daily. unspecified type aspirin 81 mg Take 1 tablet 30 tablet 11 07/17/19 Discontinued chewable tablet by mouth 6 20 daily. lisinopril 20 mg Take 40 mg by 0 07/18/19 Discontinued tablet mouth daily. 20 (Reorder) amLODIPine 5 mg Take 5 mg by 0 07/17/19 Discontinued tablet mouth daily. 20 albuterol 90 Inhale 2 Puffs 8.5 g 3 07/18/19 Discontinued mcg/actuation every 6 (six) 9 20 (Reorder) inhalerIndications: hours as SOB (shortness of needed for breath) on exertion Wheezing or Shortness of Breath. omeprazole 40 mg Take 1 capsule 30 capsule 5 07/18/19 Discontinued capsuleIndications: by mouth 9 20 (Reorder) Chest pain, daily. unspecified type metFORMIN 500 mg Take 1 tablet 30 tablet 5 07/17/19 Discontinued tabletIndications: by mouth 9 20 (Dose Borderline diabetes daily. adjustment) mellitus atorvastatin Take 1 tablet 30 tablet 5 07/17/19 Discontinued (LIPITOR) 20 mg by mouth at 9 20 (Dose tabletIndications: bedtime. adjustment) Mixed hyperlipidemia isosorbide Take 1 tablet 30 tablet 5 07/18/19 Discontinued mononitrate 60 mg by mouth every 9 20 (Reorder) 24 hr morning. tabletIndications: Other chest pain, Coronary artery disease involving [place] coronary artery of [place] heart without angina pectoris, Essential hypertension varenicline Take one 0.5mg 1 Package 0 07/17/19 Discontinued (CHANTIX STARTING tab by mouth 9 20 MONTH BOX) 0.5 mg once daily for (11)- 1 mg (42) 3 days, then tabletIndications: one 0.5mg tab Dyspnea on twice daily exertion, Cigarette for 4 days, nicotine dependence then one 1mg without tab twice complication daily. clopidogrel 75 mg Take 75 mg by 0 07/18/19 Discontinued tablet mouth daily. 20 (Reorder) fluticasone Inhale 1 Puff 1 Each 11 07/18/19 Discontinued propion-salmeterol 2 (two) times 9 20 (Reorder) (AIRDUO RESPICLICK) daily. 113-14 mcg/actuation AePBIndications: Dyspnea on exertion, Cigarette nicotine dependence without complication, Sleep-disordered breathing clopidogreL 75 mg Take 1 tablet 30 tablet 2 07/18/19 Discontinued tabletIndications: by mouth daily 0 20 (Reorder) Chest pain, for 90 days. unspecified type documented as of this encounter [...] Sign Reading Time Taken Comments Blood Pressure 155/88 07/18/2019 12:00 PM [employer] Pulse 97 07/18/2019 12:00 PM [employer] Temperature 36.7 C (98.1 F) 07/18/2019 12:00 PM [employer] Respiratory Rate 20 07/18/2019 12:00 PM [employer] Oxygen Saturation 96% 07/18/2019 12:00 PM [employer] Inhaled Oxygen Concentration - - Weight 113.4 kg (250 lb) 07/17/2019 8:42 AM [employer] Height 167.6 cm (5' 6") 07/17/2019 8:42 AM [employer] Body Mass Index 40.35 07/17/2019 8:42 AM [employer] documented in this encounter Discharge Instructions AttachmentsThe following attachments cannot be sent through Care Everywhere.Furosemide tablets ([place]es)Clopidogrel tablets ([place]es)Carvedilol tablets ([place]ymraes)Chest Pain, Noncardiac ([place]ymraes)documented in this encounter Progress Notes Prosper Larson RN - 07/17/2019 12:58 PM CSTCare Management Social Functional Assessment Patient Name: Juan Miguel Valle Age: [age] year old Sex: male Patient's Previous Admission Date at [facility]: 11/20/2013 Current diagnosis and co-morbidities: Chest pain Readmission Questions: Was patient discharged from any acute care hospital within the last 30 days: No Social Functional Assessment: Primary language spoken/preferred: [place] Mental Status: Alert & Oriented to Person,Place & Time Information given by: Self Patient's support system: Spouse Name and number of support system: Clara Wagner [phone] 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 MPOA: Same as support system Living Arrangement: Home Address of living arrangement : [address] [place] [address] Persons living in home: Same as support system Barriers to returning home: None Baseline functional status- ambulation: Independent Functional status-baseline personal care: Independent Baseline functional status- driving: Independent Baseline functional status- grocery shopping: Independent Functional status-baseline housekeeping: Independent Functional status-baseline meal prep: Independent Current functional status same as prior: Yes Do you have a PCP?: Yes Name of PCP: [facility] Agency: No Provider Services: No DME Company: No Equipment: None Hemodialysis: No Community resources utilized: [facility] [place] Funding Resources: [facility] Prescription coverage plan: Self Pay Pharmacy where meds are filled: Other Other pharmacy: [facility] Anticipated services prior to disharge: None Expected mode of discharge transportation: Personal vehicle Additional Recommendations for DC: no Additional info required for discharge planning: Pending medical evaluation Recommended discharge plan: Home SFA Complete: Social Functional Assessment complete: Yes Alcohol Use Screening (AUDIT-C) How often do you have a drink containing alcohol?: Never SCORE: 0 Role of Care Management explained. Yes Any issues or concerns with obtaining/affording your medications at home: no. Are you or your support system able to cook pickled meat medications at discharge: yes. 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 O [phone] documented in this encounter Plan of Treatment Date Type Specialty Care Team Description 07/19/2019 Office Visit Family Medicine Ekta Martinez, SECURITY GUARDS DISPATCHER [address] [place], [place] [phone] Care, Ang Primary 08/02/2019 Office Visit Pulmonary Disease Mayela Funes DO [address] [place] [address] 02/18/2020 Office Visit Cardiology Eunice Chang MD [address] [place] [address] [address] [place], [place] [phone] Name Type Priority Associated Diagnoses Order Schedule TROPONIN I LAB Routine EVERY 6 HOURS (START TIME ADJUSTABLE) START TIME ADJUSTABLE for 3 Occurrences starting 07/17/2019 until 07/18/2019 CBC with Differential LAB Routine EVERY MORNING AT 0400 for 2 Occurrences starting 07/18/2019 until 07/19/2019, 1 completed Basic Metabolic Panel (NA, LAB Routine EVERY MORNING AT 0400 K, CL, CO2, GLUCOSE, BUN, for 3 Occurrences CREATININE, CA) starting 07/18/2019 until 07/20/2019, 1 completed N-TERMINAL PRO-BNP LAB Routine EVERY MORNING AT 0500 for 2 Days starting 07/18/2019 until 07/19/2019, 1 completed Health Maintenance Due Date Last Done Comments DTaP,Tdap,and Td Vaccines (1 - Tdap) 1976 COLONOSCOPY 09/07/2015 Zoster Recombinant Vaccine (SHINGRIX) (1 09/07/2015 of 2) PNEUMOCOCCAL 0-64 YEARS COMBINED SERIES Completed 09/19/2013 INFLUENZA VACCINE Completed 04/20/2019, 09/19/2013 documented as of this encounter Procedures Procedure Name Priority Date/Time Associated Diagnosis Comments POCT GLUCOSE Routine 07/18/2019 1:44 Results for this (AUTOMATED) PM [employer] procedure are in the results section. POCT GLUCOSE Routine 07/18/2019 11:39 Results for this (AUTOMATED) AM [employer] procedure are in the results section. POCT GLUCOSE Routine 07/18/2019 7:09 Results for this (AUTOMATED) AM [employer] procedure are in the results section. CBC WITH DIFFERENTIAL Routine 07/18/2019 2:38 Results for this AM [employer] procedure are in the results section. N-TERMINAL PRO-BNP Routine 07/18/2019 2:38 Results for this AM [employer] procedure are in the results section. CBC WITH DIFFERENTIAL Routine 07/18/2019 2:38 Results for this AM [employer] procedure are in the results section. BASIC METABOLIC PANEL Routine 07/18/2019 2:38 Results for this (NA, K, CL, CO2, AM [employer] procedure are in GLUCOSE, BUN, the results CREATININE, CA) section. TROPONIN I Routine 07/18/2019 2:38 Results for this AM [employer] procedure are in the results section. POCT GLUCOSE Routine 07/17/2019 8:26 Results for this (AUTOMATED) PM [employer] procedure are in the results section. POCT GLUCOSE Routine 07/17/2019 4:41 Results for this (AUTOMATED) PM [employer] procedure are in the results section. N-TERMINAL PRO-BNP Add-on 07/17/2019 2:39 Results for this PM [employer] procedure are in the results section. TROPONIN I Routine 07/17/2019 2:39 Results for this PM [employer] procedure are in the results section. ECHO ROUTINE Routine 07/17/2019 1:19 Chest pain, W/DOPPLER COLOR PM [employer] unspecified type XR CHEST 1 VW STAT 07/17/2019 9:45 Chest pain, Results for this AM [employer] unspecified type procedure are in the results section. CBC WITH DIFFERENTIAL STAT 07/17/2019 9:18 Chest pain, Results for this AM [employer] unspecified type procedure are in the results section. GLYCOSYLATED Add-on 07/17/2019 9:18 Results for this HEMOGLOBIN (A1C) AM [employer] procedure are in the results section. CBC WITH DIFFERENTIAL Routine 07/17/2019 9:18 Chest pain, Results for this AM [employer] unspecified type procedure are in the results section. LIPID PANEL Add-on 07/17/2019 9:18 Results for this (18207)(TOTAL AM [employer] procedure are in CHOLESTEROL, the results TRIGLYCERIDES, HDL) section. BASIC METABOLIC PANEL STAT 07/17/2019 9:18 Chest pain, Results for this (NA, K, CL, CO2, AM [employer] unspecified type procedure are in GLUCOSE, BUN, the results CREATININE, CA) section. HEPATIC FUNCTION STAT 07/17/2019 9:18 Chest pain, Results for this PANEL (03073) AM [employer] unspecified type procedure are in (ALB,T.PRO,BILI the results T,BU/BC,ALT,AST,ALK section. PHOS) THYROID STIMULATING Add-on 07/17/2019 9:18 Results for this HORMONE AM [employer] procedure are in the results section. TROPONIN I STAT 07/17/2019 9:18 Chest pain, Results for this AM [employer] unspecified type procedure are in the results section. MAGNESIUM Add-on 07/17/2019 9:18 Results for this AM [employer] procedure are in the results section. EKG-12 LEAD STAT 07/17/2019 9:16 AM [employer] NOTICE OF PRIVACY Routine 07/17/2019 8:38 PRACTICES AM [employer] documented in this encounter Results POCT GLUCOSE (AUTOMATED) (07/18/2019 1:44 PM [employer]) POCT GLU 162 (H) 70 - 110 mg/dL [facility] Specimen Blood Performing Organization Address [facility], [place] Phone Number [facility] CLIA: [id number], [address] [place] [address] POCT GLUCOSE (AUTOMATED) (07/18/2019 11:39 AM [employer]) POCT GLU 308 (H) 70 - 110 mg/dL [facility] Specimen Blood Performing Organization Address City/[facility]/Zipcode Phone Number [facility] CLIA: [id number], [address] [place] [address] POCT GLUCOSE (AUTOMATED) (07/18/2019 7:09 AM [employer]) POCT GLU 116 (H) 70 - 110 mg/dL [facility] Specimen Blood Performing Organization Address City/State/Zipcode Phone Number [facility] CLIA: [id number], [address] [place] [address] CBC WITH DIFFERENTIAL (07/18/2019 2:38 AM [employer]) WBC 6.06 4.20 - 10.70 [facility] 10*3/L [facility] RBC 4.94 4.26 - 5.52 [facility] 10*6/L [facility] HGB 13.4 12.2 - 16.4 [facility] g/dL [facility] HCT 44.4 38.4 - 49.3 % [facility] MCV 89.9 81.7 - 95.6 fL [facility] MCH 27.1 26.1 - 32.7 pg [facility] MCHC 30.2 (L) 31.2 - 35.0 [facility] g/dL [facility] RDW-SD 54.6 (H) 38.5 - 51.6 fL [facility] RDW-CV 16.7 (H) 12.1 - 15.4 % [facility] PLT 238 150 - 328 [facility] 10*3/L [facility] MPV 11.1 9.8 - 13.0 fL [facility] NRBC/100 WBC 0.0 0.0 - 10.0 /100 [facility] WBCs [facility] NRBC x10^3 <0.01 10*3/L [facility] GRAN MAT (NEUT) % 67.6 % [facility] IMM GRAN % 0.30 % [facility] LYMPH % 20.3 % [facility] MONO % 8.4 % [facility] EOS % 3.1 % [facility] BASO % 0.3 % [facility] GRAN MAT x10^3(ANC) 4.09 1.99 - 6.95 [facility] 10*3/uL HOSPITAL LABORATORY IMM GRAN x10^3 <0.03 0.00 - 0.06 [facility] 10*3/uL HOSPITAL LABORATORY LYMPH x10^3 1.23 1.09 - 3.23 [facility] 10*3/uL HOSPITAL LABORATORY MONO x10^3 0.51 0.36 - 1.02 [facility] 10*3/uL HOSPITAL LABORATORY EOS x10^3 0.19 0.06 - 0.53 [facility] 10*3/uL HOSPITAL LABORATORY BASO x10^3 <0.03 0.01 - 0.09 [facility] 10*3/uL [facility] Specimen Blood - ARM, RIGHT Performing Organization Address City/[facility] [place] Phone Number [facility] CLIA: [id number], [address] [place] [address] N-TERMINAL PRO-BNP (07/18/2019 2:38 AM [employer]) NT-proBNP 31 <=125 pg/mL [facility] Specimen Blood - ARM, RIGHT Narrative Performed At Biotin has been reported to cause a negative [facility] bias, interpret results relative to patient's use of biotin. Performing Organization Address City/[facility], [place] Phone Number [facility] CLIA: [id number], [address] [place] [address] Basic Metabolic Panel (NA, K, CL, CO2, GLUCOSE, BUN, CREATININE, CA) (2019 2:38 AM [employer]) NA 138 135 - 145 [facility] mmol/L [facility] K 4.4 3.5 - 5.0 [facility] mmol/L [facility] CL 100 98 - 108 mmol/L [facility] CO2 TOTAL 32 (H) 23 - 31 mmol/L [facility] AGAP 6 2 - 16 [facility] BUN 18 7 - 23 mg/dL [facility] GLUCOSE 127 (H) 70 - 110 mg/dL [facility] CREATININE 0.91 0.60 - 1.25 [facility] mg/dL [facility] CALCIUM 9.0 8.6 - 10.6 [facility] mg/dL [facility] eGFR Calculation 87.2 mL/min/1.73m2 [facility] ([facility] LABORATORY Cambodian) eGFR Calculation 105.6 mL/min/1.73m2 [facility] ([facility] LABORATORY Specimen Blood - ARM, RIGHT Narrative Performed At Association of Glomerular Filtration Rate (GFR) [facility] and Staging of Kidney Disease* + + +- + | GFR (mL/min/1.73 m2) | With Kidney Damage | Without Kidney Damage + + +- + | >90 | Stage one | Normal + + +- + | 60-89 | Stage two | Decreased GFR + + +- + | 30-59 | Stage three | Stage three + + +- + | 15-29 | Stage four | Stage four + + +- + | <15 (or dialysis) | Stage five | Stage five + + +- + *Each stage assumes the associated GFR level has been in effect for at least three months. Stages 1 to 5, with or without kidney [...] abnormalities in imaging tests). Performing Organization Address [facility], [place] Phone Number [facility] CLIA: [id number], [address] [place] [address] Troponin I (07/18/2019 2:38 AM [employer]) TROPONIN I 0.009 <=0.034 ng/mL [facility] Specimen Blood - ARM, RIGHT Narrative Performed At Equal or Less than 0.034 ng/ml---Normal [facility] Note: Cardiac troponin begins to rise [...] patient's use of biotin. Performing Organization Address City/[facility] [place] Phone Number [facility] CLIA: [id number], [address] [place] [address] POCT GLUCOSE (AUTOMATED) (07/17/2019 8:26 PM [employer]) POCT GLU 137 (H) 70 - 110 mg/dL [facility] Specimen Blood Performing Organization Address City/[facility] [place] Phone Number [facility] CLIA: [id number], [address] [place] [address] POCT GLUCOSE (AUTOMATED) (07/17/2019 4:41 PM [employer]) POCT GLU 195 (H) 70 - 110 mg/dL [facility] Specimen Blood Performing Organization Address [facility] [place] Phone Number [facility] CLIA: [id number], [address] [place] [address] N-TERMINAL PRO-BNP (07/17/2019 2:39 PM [employer]) NT-proBNP 37 <=125 pg/mL [facility] Specimen Blood - ARM, LEFT Narrative Performed At Biotin has been reported to cause a negative [facility] bias, interpret results relative to patient's use of biotin. Performing Organization Address [facility] Phone Number [facility] CLIA: [id number], [address] [place], [place] [address] LABORAT[address] Troponin I (07/17/2019 2:39 PM [employer]) TROPONIN I 0.009 <=0.034 ng/mL [facility] Specimen Blood - ARM, LEFT Narrative Performed At Equal or Less than 0.034 ng/ml---Normal [facility] Note: Cardiac troponin begins to rise [...] patient's use of biotin. Performing Organization Address [facility], [place] Phone Number [facility] CLIA: [id number], [address] [place] [id number] [address] Chest 1 View (07/17/2019 9:45 AM [employer]) Specimen Narrative Performed At HISTORY: Chest pain. PACS/VR/DOSE TECHNIQUE: Portable AP erect view of the chest is obtained. Comparison is made with 02/05/2019 study. FINDINGS: No acute pneumonia. No pneumothorax or pleural effusion or pulmonary congestion detected. Cardiac size is within normal limits. Old fractures of some of the left lower ribs noted. CONCLUSIONS: No signs of acute cardiopulmonary disease. Procedure Note [facility], Radiant Results Inft User - 07/17/2019 9:56 AM [employer] HISTORY: Chest pain. TECHNIQUE: Portable AP erect view of the chest is obtained. Comparison is made with 02/05/2019 study. FINDINGS: No acute pneumonia. No pneumothorax or pleural effusion or pulmonary congestion detected. Cardiac size is within normal limits. Old fractures of some of the left lower ribs noted. CONCLUSIONS: No signs of acute cardiopulmonary disease. Performing Organization Address [facility], [place] Phone Number PACS/VR/DOSE Thyroid Stimulating Hormone (TSH) (07/17/2019 9:18 AM [employer]) TSH 1.51 0.45 - 4.70 mIU/L [facility] Specimen Blood - VENOUS Performing Organization Address [facility] Phone Number [facility] CLIA: [id number], [address] [place] [address] Lipid Panel (Total Cholesterol, Triglycerides, HDL) - Fasting (07/17/2019 9:18 AM [employer]) CHOL 238 (H) 120 - 200 mg/dL [facility] HDL 46 >40 mg/dL [facility] HDLC RATIO 5.2 (H) <=5.0 [facility] TRIG 149 30 - 170 mg/dL [facility] LDL CHOL 162 (H) <=160 mg/dL [facility] VLDL 30 5 - 60 mg/dL [facility] Specimen Blood - VENOUS Performing Organization Address [facility] [place] Phone Number [facility] CLIA: [id number], [address] [place] [address] Glycosylated Hemoglobin (A1C) (07/17/2019 9:18 AM [employer]) HGB A1C 7.1 (H) 4.0 - 6.0 % NGSP [facility] Specimen Blood - VENOUS Narrative Performed At %A1C (NGSP) Interpretation (ADA) [facility] 4.8-5.6 Normal or (Non-Diabetic Range) 5.7-6.4 Increased Risk (Pre-Diabetic) >6.5 Diabetes Indicated Performing Organization Address [facility] [place] Phone Number [facility] CLIA: [id number], [address] [place] [id number] Magnesium Serum (07/17/2019 9:18 AM [employer]) MAGNESIUM 2.0 1.7 - 2.4 mg/dL [facility] Specimen Blood - VENOUS Performing Organization Address [facility] [place] Phone Number [facility] CLIA: [id number], [address] [place] [address] CBC WITH DIFFERENTIAL (07/17/2019 9:18 AM [employer]) WBC 6.78 4.20 - 10.70 [facility] 10*3/L [facility] RBC 5.28 4.26 - 5.52 [facility] 10*6/L [facility] HGB 14.4 12.2 - 16.4 [facility] g/dL [facility] HCT 46.5 38.4 - 49.3 % [facility] MCV 88.1 81.7 - 95.6 fL [facility] MCH 27.3 26.1 - 32.7 pg [facility] MCHC 31.0 (L) 31.2 - 35.0 [facility] g/dL [facility] RDW-SD 53.2 (H) 38.5 - 51.6 fL [facility] RDW-CV 16.4 (H) 12.1 - 15.4 % [facility] PLT 270 150 - 328 [facility] 10*3/L [facility] MPV 11.4 9.8 - 13.0 fL [facility] NRBC/100 WBC 0.0 0.0 - 10.0 /100 [facility] WBCs HOSPITAL LABORATORY NRBC x10^3 <0.01 10*3/L [facility] GRAN MAT (NEUT) % 59.9 % [facility] IMM GRAN % 0.10 % [facility] LYMPH % 28.9 % [facility] MONO % 8.3 % [facility] EOS % 2.4 % [facility] BASO % 0.4 % [facility] GRAN MAT x10^3(ANC) 4.06 1.99 - 6.95 [facility] 10*3/uL HOSPITAL LAB[facility]ATORY IMM GRAN x10^3 <0.03 0.00 - 0.06 [facility] 10*3/uL H[facility]PITAL [facility] LYMPH x10^3 1.96 1.09 - 3.23 [facility] 10*3/uL H[facility]PITAL [facility] MONO x10^3 0.56 0.36 - 1.02 [facility] 10*3/uL HOSPITAL LAB[facility]ATORY EOS x10^3 0.16 0.06 - 0.53 [facility] 10*3/uL HOSPITAL [facility] BASO x10^3 0.03 0.01 - 0.09 [facility] 10*3/uL HOSPITAL LAB[facility]ATORY Specimen Blood - VENOUS Performing Organization Address City/State/Zipcode Phone Number [facility] CLIA: [id number], [address] [place] [address] Hepatic Function Panel (ALB, T.PRO, BILI T, BU/BC, ALT, AST, ALK PHOS) (2019 9:18 AM [employer]) TOTAL BILI 0.3 0.1 - 1.1 mg/dL [facility] BILI UNCON 0.0 (L) 0.1 - 1.1 mg/dL [facility] BILI CONJ 0.0 0.0 - 0.3 mg/dL [facility] T PROTEIN 7.7 6.3 - 8.2 g/dL [facility] ALBUMIN 4.6 3.5 - 5.0 g/dL [facility] ALK PHOS 55 34 - 122 U/L [facility] ALTv 71 (H) 5 - 50 U/L [facility] AST(SGOT) 39 13 - 40 U/L [facility] Specimen Blood - VENOUS Performing Organization Address [facility] [place] Phone Number [facility] CLIA: [id number], [address] [place] [address] Troponin I (07/17/2019 9:18 AM [employer]) TROPONIN I 0.010 <=0.034 ng/mL [facility] Specimen Blood - VENOUS Narrative Performed At Equal or Less than 0.034 ng/ml---Normal [facility] Note: Cardiac troponin begins to rise [...] patient's use of biotin. Performing Organization Address [facility] [place] Phone Number [facility] CLIA: [id number], [address] [place] [address] Basic Metabolic Panel (NA, K, CL, CO2, GLUCOSE, BUN, CREATININE, CA) (2019 9:18 AM [employer]) NA 137 135 - 145 mmol/L [facility] K 4.4 3.5 - 5.0 mmol/L [facility] CL 101 98 - 108 mmol/L [facility] CO2 TOTAL 28 23 - 31 mmol/L [facility] AGAP 8 2 - 16 [facility] BUN 12 7 - 23 mg/dL [facility] GLUCOSE 107 70 - 110 mg/dL [facility] CREATININE 0.64 0.60 - 1.25 [facility] mg/dL HOSPITAL LAB[facility]ATORY CALCIUM 9.4 8.6 - 10.6 mg/dL [facility] eGFR Calculation 130.8 mL/min/1.73m2 [facility] ([facility]) [facility] eGFR Calculation 158.6 mL/min/1.73m2 [facility] () [facility] Specimen Blood - VENOUS Narrative Performed At Association of Glomerular Filtration Rate (GFR) [facility] and Staging of Kidney Disease* + + +- + | GFR (mL/min/1.73 m2) | With Kidney Damage | Without Kidney Damage + + +- + | >90 | Stage one | Normal + + +- + | 60-89 | Stage two | Decreased GFR + + +- + | 30-59 | Stage three | Stage three + + +- + | 15-29 | Stage four | Stage four + + +- + | <15 (or dialysis) | Stage five | Stage five + + +- + *Each stage assumes the associated GFR level has been in effect for at least three months. Stages 1 to 5, with or without kidney [...] tests). Performing Organization Address City/State/Zipcode Phone Number [facility] CLIA: [id number], [address] [place] [address] [facility] [address] documented in this encounter Visit Diagnoses Diagnosis Chest pain, unspecified type - Primary SOB (shortness of breath) on exertion Shortness of breath Dyspnea on exertion Other dyspnea and respiratory abnormality Cigarette nicotine dependence without complication Tobacco use disorder Sleep-disordered breathing Other sleep disturbances Borderline diabetes mellitus Other abnormal glucose Mixed hyperlipidemia Coronary artery disease involving [place] coronary artery of [place] heart without angina pectoris Essential hypertension Unspecified essential hypertension Atypical chest pain Other chest pain Morbid obesity with body mass index of 40.0-49.9 Nonobstructive atherosclerosis of coronary artery Obesity (BMI 30-39.9) Obesity, unspecified documented in this encounter Administered Medications Medication Order MAR Action Action Date Dose Rate Site aspirin chewable tablet 81 mg Given 07/18/2019 8:56 AM [employer] 81 mg 81 mg, Oral, QAM WITH BREAKFAST, First dose on Tue07/17/19 at 2014, Until Discontinued, Routine Given 07/18/2019 2:06 AM [employer] 81 mg atorvastatin (LIPITOR) tablet 40 mg Given 07/18/2019 2:06 AM [employer] 40 mg 40 mg, Oral, QHS, First dose on Tue07/17/19 at 2100, Until Discontinued, Routine carvediloL (COREG) tablet 6.25 mg Given 07/18/2019 8:56 AM [employer] 6.25 mg 6.25 mg, Oral, BID MEALS, First dose on Tue07/17/19 at 2345, Until Discontinued, Routine Given 07/18/2019 2:07 AM [employer] 6.25 mg clopidogreL (PLAVIX) tablet 75 mg Given 07/18/2019 8:57 AM [employer] 75 mg 75 mg, Oral, DAILY, First dose on Tue07/18/19 at 0900, Until Discontinued, Routine Given 07/17/2019 3:26 PM [employer] 75 mg enoxaparin (LOVENOX) injection 40 mg Given 07/18/2019 8:57 AM [employer] 40 mg Abdomen-SC 40 mg, Subcutaneous, DAILY, First dose on Tue07/18/19 at 0900, Until Discontinued, Routine furosemide (LASIX) tablet 40 mg Given 07/18/2019 8:56 AM [employer] 40 mg 40 mg, Oral, DAILY, First dose on Tue07/18/19 at 0900, Until Discontinued, Routine hydralAZINE (APRESOLINE) injection 10 mg 10 mg, Intravenous, PRN - SEE INSTRUCTIONS, Starting Tue07/18/19 at 1034, Until Discontinued, Routine, Hypertensive emergency, Hypertension, Q4h for SBP>160 or DBP>100 ipratropium-albuterol (DUONEB) 0.5 mg-3 mg(2.5 mg base)/3 mL nebulizer solution 3 mL 3 mL, Inhalation, QIDPRN, Starting Tue07/17/19 at 1555, Until Discontinued, Routine, Wheezing isosorbide mononitrate (IMDUR) 24 hr tablet Given 07/18/2019 8:56 AM [employer] 60 mg 60 mg 60 mg, Oral, QAM, First dose on Tue07/18/19 at 0900, Until Discontinued, Routine Given 07/17/2019 3:26 PM [employer] 60 mg lisinopril (PRINIVIL,ZESTRIL) tablet 40 mg Given 07/18/2019 8:56 AM [employer] 40 mg 40 mg, Oral, DAILY, First dose on Tue07/18/19 at 0900, Until Discontinued, Routine Given 07/17/2019 3:26 PM [employer] 40 mg nitroglycerin (NITROSTAT) sublingual tablet Given 07/17/2019 9:22 AM [employer] 0.4 mg 0.4 mg 0.4 mg, Sublingual, Q5MIN PRN, 3 doses, Starting Tue07/17/19 at 0916, Until Discontinued, KERLINE, Chest pain omeprazole (PRILOSEC) capsule 40 mg Given 07/18/2019 8:57 AM [employer] 40 mg 40 mg, Oral, DAILY, First dose on Tue07/18/19 at 0900, Until Discontinued Sliding Scale Insulin - Aspart Given 07/18/2019 11:54 AM 4 Units Right Upper (NOVOLOG) + Fsbg Testing [employer] Arm-SC Subcutaneous, TID MEALS+HS, First dose on Tue07/17/19 at 1700, Until Discontinued, Routine Medication Order MAR Action Action Date Dose Rate Site aspirin chewable tablet 324 mg Given 07/17/2019 9:22 AM [employer] 324 mg 324 mg, Oral, ONCE, 1 dose, Tue07/17/19 at 1030, Routine furosemide (LASIX) injection 20 mg Given 07/17/2019 3:27 PM [employer] 20 mg 20 mg, IV Push, ONCE NOW, 1 dose, Tue07/17/19 at 1545, Routine ipratropium-albuterol (DUONEB) 0.5 mg-3 mg(2.5 Given 07/17/2019 3:57 PM [employer] 3 mL mg base)/3 mL nebulizer solution 3 mL 3 mL, Inhalation, ONCE, 1 dose, Tue07/17/19 at 1700, Routine ketorolac (TORADOL) injection 30 mg Given 07/17/2019 10:18 AM [employer] 30 mg 30 mg, Slow IV Push, ONCE, 1 dose, Tue07/17/19 at 1015, KERLINE, membership advisor approving Restricted medication: PEMA VALLE morpHINE injection 2 mg Given 07/17/2019 12:09 PM [employer] 2 mg 2 mg, Slow IV Push, ONCE, 1 dose, Tue07/17/19 at 1315, Routine morpHINE injection 2 mg Given 07/18/2019 9:06 AM [employer] 2 mg 2 mg, Slow IV Push, Q4HPRN, Starting Tue07/17/19 at 1211, Until Tue07/18/19 at 1210, Routine, Chest pain documented in this encounter Insurance Payer Benefit Plan Subscriber ID Effective Phone Address Type / Group Dates [employer] [place] [employer] [place] [id number] [address] [place] [address] [address] [place] [address] [place] [address] documented as of this encounter
--- OUTSIDE RECORDS SUMMARY | 2019-09-13 19:29 | XMS REPORT | Summary of Care ---
:1965 Author Organization [facility] Address [address] [place] [address] Care Team Providers Name Role Phone Ekta Lucero Primary Care Provider Reason for Referral (Routine) Status Reason Specialty Diagnoses / Referred By Referred To Procedures Contact Contact New Request Pulmonary Function Diagnoses Dyspnea on exertion Mayela Funes, Technologist Procedures DIAGNOSTIC PROCEDURE Preferred Location: [facility] PFT Lab-Main DO [address] [place] [phone] Reason for Visit Reason Comments Follow-up Shortness of Breath (Routine) Status Reason Specialty Diagnoses / Referred By Referred To Procedures Contact Contact Closed Pulmonary Disease Diagnoses SOB (shortness of breath) on exertion Ekta Lucero FNP Procedures CONSULT/REFERRAL PULMONARY [address] [place] [address] Encounter Details Date Type Department Care Team Description 08/02/2019 [facility] Maeyla Funes DO Dyspnea on exertion Pulmonary Clinic [address] [place] [address] (Primary Dx) [address] [place] [address] , [address] [phone] Allergies Active Allergy Reactions Severity Noted Date Comments Azithromycin Swelling High 08/11/2018 Metoprolol Other - See comments 07/11/2018 Lowers heart rate too low documented as of this encounter (statuses as of 08/02/2019) Medications Medication Sig Dispensed Refills Start Date [...] chest pain, days. Coronary artery disease involving [place] coronary artery of [place] heart without angina pectoris, Essential hypertension carvediloL [...] Borderline diabetes times daily with mellitus meals. documented as of this encounter (statuses as of 08/02/2019) Active Problems Problem Noted Date Morbid obesity with body mass index of 40.0-49.9 07/17/2019 Nonobstructive atherosclerosis of coronary artery 03/11/2018 Essential hypertension 12/07/2013 HLD (hyperlipidemia) 12/07/2013 Borderline diabetes mellitus 12/07/2013 Obesity (BMI 30-39.9) 12/07/2013 Tobacco abuse 12/07/2013 Atypical chest pain 11/20/2013 documented as of this encounter (statuses as of 08/02/2019) Immunizations Name Administration Dates Next Due Influenza [...] Sign Reading Time Taken Comments Blood Pressure 139/84 08/02/2019 10:14 AM [employer]A [employer]GER Pulse 81 08/02/2019 10:12 AM C[employer]A CHARGER Temperature - - Respiratory Rate 19 08/02/2019 10:12 AM C[employer]OLA CHARGER Oxygen Saturation 96% 08/02/2019 10:12 AM C[employer]A CHARGER Inhaled Oxygen Concentration - - Weight 116.1 kg (256 lb) 08/02/2019 10:12 AM C[employer]A CHARGER Height 167.6 cm (5' 6") 08/02/2019 10:12 AM C[employer]OLA CHARGER Body Mass Index 41.32 08/02/2019 10:12 AM CUPOLA CHARGER documented in this encounter Progress Notes Mayela Funes DO - 08/02/2019 10:20 AM CST [facility] Chief Complaint: Follow up for dyspnea on exertion History of Present Illness: Juan Miguel Langston is a 53 year old male with past medical history as below here for follow up. Since last visit, was in the hospital for mild heart attack. With regardsto breathing, have good days and bad days. Overall about the same as before. Shortness of breath going about 20 feet improved with rest. Does have cough. Inhalers are helping to some extent. Is on Symbicort and Air Duo. Cutting back on smoking and using vaping. Past Medical History: has a past medical history of Arthritis, CAD (coronary artery disease), Diabetes mellitus, Heart murmur, HLD (hyperlipidemia), HTN ( hypertension), Obesity (BMI 30.0-34.9), Sinus pause, and Tobacco abuse. Past Surgical History: has a past surgical history that includes [address]1679 - [place] RIGHT HEART CATH O2 SATURATION & CARDIAC OUTPUT. Family History: family history includes Coronary Heart Disease in his mother; Diabetes in his maternal grandmother. Social History: reports that he has been smoking. He has a 6.50 pack-year smoking history. He has quit using smokeless tobacco. He reports that he has current or past drug history. Drug: Marijuana. Hereports that he does not drink alcohol. Review of Systems: Review of Systems Constitutional: Negative. HENT: Negative. Eyes: Negative. Respiratory: Positive for cough and shortness of breath. Cardiovascular: Negative. Gastrointestinal: Negative. Genitourinary: Negative. Skin: Negative. Neurological: Negative. Psychiatric/Behavioral: Negative. Endocrine: Endocrine negative Objective: BP 139/84 | Pulse 81 | Resp 19 | Ht 5' 6" (1.676 m) | Wt 256 lb (116.1 kg) | SpO2 96% | BMI 41.32 kg/m Physical Exam Constitutional: He is oriented to person, place, and time. He appears well- developed and well-nourished. HENT: Head: Normocephalic and atraumatic. Eyes: Conjunctivae and EOM are normal. Neck: Normal range of motion. Neck supple. Cardiovascular: Normal rate and regular rhythm. Pulmonary/Chest: Effort normal and breath sounds normal. Abdominal: Soft. Bowel sounds are normal. Musculoskeletal: Normal range of motion. Neurological: He is alert and oriented to person, place, and time. Skin: Skin is warm and dry. Psychiatric: He has a normal mood and affect. His behavior is normal. Judgment and thought content normal. Labs/Studies: CXR reviewed images some atelectasis left lower lung mendosa Assessment: ICD-10-CM ICD-9-CM 1. Dyspnea on exertion R06.09 786.09 Plan: 1. Continue with Symbicort and Albuterol 2. Will obtain PFT 3. Increase physical activity 4. Follow up 2 months documented in this encounter Plan of Treatment Date Type Specialty Care Team Description 02/18/2020 Office Visit Cardiology Eunice Chang MD [address] [place] [address] [place] [address] [phone] Name Type Priority Associated Diagnoses Order Schedule DIAGNOSTIC PROCEDURE PULMONARY FUNCTION Routine Dyspnea on exertion Ordered : Preferred Location: LAB 08/02/2019 [facility] PFT Lab-Main Health Maintenance Due Date Last Done Comments Zoster Recombinant Vaccine 08/03/2019 04/20/2019 Postponed from 06/15/2019 (SHINGRIX) (2 of 2) (Alternative Guidelines) COLONOSCOPY 08/09/2019 Postponed from 09/07/2015 (Alternative Guidelines) DTaP,Tdap,and Td Vaccines (2 04/20/2029 04/20/2019 - Td) INFLUENZA VACCINE Completed 04/20/2019, 09/19/2013 PNEUMOCOCCAL 0-64 YEARS Completed 04/20/2019, COMBINED SERIES 09/19/2013 documented as of this encounter Results Not on filedocumented in this encounter Visit Diagnoses Diagnosis Dyspnea on exertion - Primary Other dyspnea and respiratory abnormality documented in this encounter Insurance Payer Benefit Plan Subscriber ID Effective Phone Address Type / Group Dates [employer] [id number] [address] [address] [address] C ent [address] [place] [address] documented as of this encounter
--- OUTSIDE RECORDS SUMMARY | 2019-09-13 19:29 | XMS REPORT | Summary of Care ---
:1965 Author Organization [facility] Address [address] [place] [address] Care Team Providers Name Role Phone Ekta Lucero Primary Care Provider Reason for Referral (Routine) Status Reason Specialty Diagnoses / Referred By Referred To Procedures Contact Contact New Request Pulmonary Function Diagnoses Dyspnea on exertion Mayela Funes, Technologist Procedures DIAGNOSTIC PROCEDURE Preferred Location: [facility] PFT Lab-Main DO [address] [place] [phone] Reason for Visit Reason Comments Follow-up Shortness of Breath (Routine) Status Reason Specialty Diagnoses / Referred By Referred To Procedures Contact Contact Closed Pulmonary Disease Diagnoses SOB (shortness of breath) on exertion Ekta Lucero FNP Procedures CONSULT/REFERRAL PULMONARY [address] [place] [address] Encounter Details Date Type Department Care Team Description 08/02/2019 Office Visit [facility] ADC Mayela Funes DO Dyspnea on exertion Pulmonary Clinic [address] [place] [address] (Primary Dx) [address] [place] [address] , [address] [phone] Allergies Active Allergy Reactions [...] chest pain, days. Coronary artery disease involving [place] coronary artery of [place] heart without angina pectoris, Essential hypertension carvediloL [...] Comments Blood Pressure 139/84 08/02/2019 10:[address] DESIGNER Pulse 81 08/02/2019 10:[address] DESIGNER Temperature - - Respiratory Rate 19 08/02/2019 10:[address] DESIGNER Oxygen Saturation 96% 08/02/2019 10:[address] DESIGNER Inhaled Oxygen Concentration - - Weight 116.1 kg (256 lb) 08/02/2019 10:[address] DESIGNER Height 167.6 cm (5' 6") 08/02/2019 10:[address] DESIGNER Body Mass Index 41.32 08/02/2019 10:[address] DESIGNER documented in this encounter Progress Notes Mayela Funes DO - 08/02/2019 10:20 AM CST [facility] Chief Complaint: Follow [...] has a past surgical history that [place] [address]2878 - [place] RIGHT HEART CATH O2 SATURATION & CARDIAC [...] 02/18/2020 Office Visit Cardiology Eunice Chang MD [address] [place] [address] [place] [address] [phone] Name Type Priority Associated Diagnoses Order Schedule [...] Group Dates [employer] [place] [employer] [employer] [id number] [address] [address] [address] ent [address] [place] [address] documented as of this encounter
--- OUTSIDE RECORDS SUMMARY | 2019-09-13 19:29 | XMS REPORT | Summary of Care ---
:1965 Author Organization [facility] Address [address] [place] [address] Care Team Providers Name Role Phone Ekta Lucero Primary Care Provider Reason for Visit Reason Comments Follow-up Post hospitalization Lab Results Encounter Details Date Type Department Care Team Description 07/19/2019 Office Visit [facility] Ekta Lucero FNP [address] [place] [address] Mixed hyperlipidemia (Primary Dx); [facility] Primary Nonobstructive atherosclerosis of coronary artery; Clinic Borderline diabetes mellitus [address] [place] [id number] Allergies Active Allergy Reactions Severity Noted [...] Other chest pain, Coronary artery disease involving iliamna coronary artery of iliamna heart without angina pectoris, Essential hypertension carvediloL [...] Comments Blood Pressure 129/65 07/19/2019 9:01 AM HEAD OF D[employer] ADVERTISING [employer]TEGRATION Pulse 84 07/19/2019 9:01 AM [employer] Temperature 36.9 C (98.4 F) 07/19/2019 9:01 AM [employer] Respiratory Rate 20 07/19/2019 9:01 AM [employer] Oxygen Saturation 96% 07/19/2019 9:01 AM [employer] Inhaled Oxygen Concentration - - Weight 116.6 kg (257 lb) 07/19/2019 9:01 AM [employer] Height 167.6 cm (5' 6") 07/19/2019 9:01 AM [employer] Body Mass Index 41.48 07/19/2019 9:01 AM [employer] documented in this encounter Progress Notes Ekta Lucero, DOBBY LOOM WEAVER - 07/19/2019 9:00 AM CST Cc: Chief [...] abuse Past Surgical History: Procedure Laterality Date MN RIGHT HEART CATH O2 SATURATION & CARDIAC OUTPUT x 3 last done in 2017 at [facility] Social History Socioeconomic History Marital status: [...] file Gets together: Not on file Attends mu-ism service: Not on file Active member of [...] of Onset Coronary Heart Disease Mother of [place] at age 61 Diabetes Maternal Grandmother Review [...] issues and agrees with the plan. [facility] Lilian Hernandez LVN - 07/19/2019 9:00 AM [...] Office Visit Pulmonary Disease Mayela Funes DO [address] [place] [phone] 02/18/2020 Office Visit Cardiology Eunice Chang MD [address] [place] [address] Health Maintenance Due Date Last Done [...] Phone Address Type Group Dates ROSEANNA CONDON [id number] 2019-Shyann [phone] [facility] [address] [place] [address] documented as of this encounter
--- OUTSIDE RECORDS SUMMARY | 2019-09-13 19:30 | XMS REPORT | Summary of Care ---
:1965 Author Organization [facility] - Health Address [address] [place] [address] Care Team Providers Name Role Phone Ekta Lucero JOSEFINA Primary Care Provider Encounter Details Date Type Department Care Team Description 09/04/2019 Orders Only [facility] Doctor Unassigned, No [address] [facility] [address] [address] [place] [address] Allergies Active Allergy Reactions Severity Noted Date Comments Azithromycin Swelling High 08/11/2018 Metoprolol Other - See comments 07/11/2018 Lowers heart rate too low documented as of this encounter (statuses as of 09/04/2019) Medications Medication Sig Dispensed Refills Start Date [...] as of this encounter (statuses as of 09/04/2019) Active Problems Problem Noted Date Morbid obesity with body mass index of 40.0-49.9 07/17/2019 Nonobstructive atherosclerosis of coronary artery 03/11/2018 Essential hypertension 12/07/2013 HLD (hyperlipidemia) 12/07/2013 Borderline diabetes mellitus 12/07/2013 Obesity (BMI 30-39.9) 12/07/2013 Tobacco abuse 12/07/2013 Atypical chest pain 11/20/2013 documented as of this encounter (statuses as of 09/04/2019) Immunizations Name Administration Dates Next Due Influenza [...] Treatment Date Type Specialty Care Team Description 09/04/2019 Prison Psychiatrist Visit Chair Spring Assembler 10/25/2019 Office Visit Pulmonary Disease Mayela Funes DO [address] [place] [phone] 02/18/2020 Office Visit Cardiology Eunice Chang MD [address] [place] [address] Health Maintenance Due Date Last Done Comments COLONOSCOPY 09/07/2015 Zoster Recombinant Vaccine (SHINGRIX) (2 06/15/2019 04/20/2019 of 2) DTaP,Tdap,and Td Vaccines (2 - Td) 04/20/2029 04/20/2019 INFLUENZA VACCINE Completed 04/20/2019, 09/19/2013 PNEUMOCOCCAL 0-64 YEARS COMBINED SERIES Completed 04/20/2019, 09/19/2013 documented as of this encounter Procedures Procedure Name Priority Date/Time Associated Diagnosis Comments ASSIGNMENT OF BENEFITS Routine 09/04/2019 8:41 AM FINANCIAL PLANNING CONSULTANT documented in this encounter Results Not on filedocumented in this encounter Insurance Payer Benefit Plan Subscriber ID Effective Phone Address Type / Group Dates [place] [id number] [address] [address] C ent [address] K[address]AR[address] M[address]ENO [id number] ROSEANNA DANETTEMARGI [id number] 2019-Prese [phone] [facility]IMARY [facility]ARE PRIMARY CARE nt [address] [place] [address] documented as of this encounter
--- OUTSIDE RECORDS SUMMARY | 2019-09-13 19:30 | XMS REPORT | Summary of Care ---
:1965 Author Organization [facility] - Health Address [address] [place] [address] Care Team Providers Name Role Phone Ekta Lucero JOSEFINA Primary Care Provider Encounter Details Date Type Department Care Team Description 06/20/2019 Orders Only [facility] Doctor Unassigned, No [address] [facility] [place] [address] [address] [place] [address] Allergies Active Allergy Reactions Severity Noted Date Comments Azithromycin Swelling High 08/11/2018 Metoprolol Other - See comments 07/11/2018 Lowers heart rate too low documented as of this encounter (statuses as of 08/24/2019) Medications Medication Sig Dispensed Refills Start Date End Date Status nitroglycerin Place 1 Tab under 30 Tab 30 09/18/2013 Active (NITROSTAT) 0.4 mg the tongue every sublingual tablet 5 (five) minutes as needed for Chest pain. documented as of this encounter (statuses as of 08/24/2019) Active Problems Problem Noted Date Morbid obesity with body mass index of 40.0-49.9 07/17/2019 Nonobstructive atherosclerosis of coronary artery 03/11/2018 Essential hypertension 12/07/2013 HLD (hyperlipidemia) 12/07/2013 Borderline diabetes mellitus 12/07/2013 Obesity (BMI 30-39.9) 12/07/2013 Tobacco abuse 12/07/2013 Atypical chest pain 11/20/2013 documented as of this encounter (statuses as of 08/24/2019) Immunizations Name Administration Dates Next Due Influenza [...] Date Type Specialty Care Team Description 09/04/2019 Lead Former Visit Instructional Design Manager 02/18/2020 Office Visit Cardiology Eunice Chang MD [address] [place] [address] [address] [place] [address] Health Maintenance Due Date Last Done Comments COLONOSCOPY 09/07/2015 Zoster Recombinant Vaccine (SHINGRIX) (2 06/15/2019 04/20/2019 of 2) DTaP,Tdap,and Td Vaccines (2 - Td) 04/20/2029 04/20/2019 INFLUENZA VACCINE Completed 04/20/2019, 09/19/2013 PNEUMOCOCCAL 0-64 YEARS COMBINED SERIES Completed 04/20/2019, 09/19/2013 documented as of this encounter Procedures Procedure Name Priority Date/Time Associated Diagnosis Comments VACCINATIONS - CONSENTS, Routine 06/20/2019 12:01 AM ELIGIBILITY, HISTORY PROPERTY MASTER documented in this encounter Results Not on filedocumented in this encounter Insurance Payer Benefit Plan Subscriber ID Effective Phone Address Type / Group Dates ROSEANNA CONDON [id number] 2019-Prese [phone] [facility] PRIMARY CARE PRIMARY CARE nt [address] [place] [address] [place] [employer] [place] [id number] [address] [address] [address] C ent [address] [place] [id number] documented as of this encounter
[2019-09-13 21:12] LABS: Absolute Lymphocytes (CBC) 2.2 K/uL (0.7-4.9); Basophils % 1.1 % (0-1.3); Hematocrit 42.3 % (39.6-49.0); Lymphocytes % 28.1 % (15.3-44.8); MPV 9.3 fL (7.6-11.3); RBC Red Blood Cell Count 4.85 M/uL (4.33-5.43)
[2019-09-13 21:19] LABS: Protime INR 0.96
[2019-09-13 21:22] LABS: ALT/SGPT 64 U/L (12-78); AST/SGOT 24 U/L (15-37); Albumin 3.2 g/dL (3.4-5.0); Alkaline Phosphatase 50 U/L (45-117); BUN Blood Urea Nitrogen 19 mg/dL (7-18); Bicarbonate 28 mmol/L (21-32); Bilirubin Direct < 0.1 mg/dL (0-0.2); Bilirubin Total 0.1 mg/dL (0.2-1.0); Glucose Level 108 mg/dL (74-106); Lipase 237 U/L (73-393); NT PRO-BNP 54 pg/mL (<125); Protein, Total 6.4 g/dL (6.4-8.2); Sodium Level 141 mmol/L (136-145); Troponin (Emerg Dept Use Only) < 0.02 ng/mL (0.0-0.045)
[2019-09-13 22:08] LABS: Urine Blood NEGATIVE (NEG); Urine Glucose TRACE (NEG); Urine Protein 2+ (NEG); Urine Specific Gravity 1.025 (1.005-1.030)
--- NOTE | 2019-09-13 22:18 | EDPHYS ---
Physician Documentation [facility] Name: Juan Miguel Langston Age: 54 yrs Sex: Male : 1965 Arrival Date: 09/13/2019 Time: 19:21 Bed 16 Private MD: ED Physician Lenard Rosario HPI: 09/12 21:18 This 54 yrs old Male presents to ER via Ambulatory with complaints of High rambo Blood Pressure, RIB PAIN. 21:18 The patient has elevated blood pressure and discovered this at home. Onset: The rambo symptoms/episode began/occurred 2 day(s) ago. Modifying factors: The symptoms are aggravated by activity. Historical: - Allergies: 19:33 Azithromycin; aj1 19:33 Metoprolol Tartrate; aj1 - Home Meds: 19:33 aspirin 81 mg Oral TbEC [Active]; Lisinopril Oral [Active]; Lasix 20 mg Oral tab aj1 [Active]; isosorbide [Active]; - PMHx: 19:33 Angina; COPD; Diabetes - NIDDM; High Cholesterol; Hypertension; Myocardial infarction; aj1 Sleep Apnea; - Immunization history:: Flu vaccine is up to date. - Social history:: Smoking status: Patient reports the use of cigarette tobacco products, 1 cigarette per day. - Family history:: not pertinent. ROS: 21:18 Constitutional: Negative for fever, chills, and weight loss, Eyes: Negative for injury, rambo pain, redness, and discharge, ENT: Negative for injury, pain, and discharge, Neck: Negative for injury, pain, and swelling, Cardiovascular: Negative for chest pain, palpitations, and edema, Abdomen/GI: Negative for abdominal pain, nausea, vomiting, diarrhea, and constipation, Back: Negative for injury and pain, : Negative for injury, bleeding, discharge, and swelling, MS/Extremity: Negative for injury and deformity, Skin: Negative for injury, rash, and discoloration, Neuro: Negative for headache, weakness, numbness, tingling, and seizure, Psych: Negative for depression, anxiety, suicide ideation, homicidal ideation, and hallucinations, Allergy/Immunology: Negative for hives, rash, and allergies, Endocrine: Negative for neck swelling, polydipsia, polyuria, polyphagia, and marked weight changes, Hematologic/Lymphatic: Negative for swollen nodes, abnormal bleeding, and unusual bruising. 21:18 Respiratory: Positive for cough, shortness of breath, at rest. Exam: 21:18 Constitutional: This is a well developed, well nourished patient who is awake, alert, rambo and in no acute distress. Head/Face: Normocephalic, atraumatic. Eyes: Pupils equal round and reactive to light, extra-ocular motions intact. Lids and lashes normal. Conjunctiva and sclera are non-icteric and not injected. Cornea within normal limits. Periorbital areas with no swelling, redness, or edema. ENT: Nares patent. No nasal discharge, no septal abnormalities noted. Tympanic membranes are normal and external auditory canals are clear. Oropharynx with no redness, swelling, or masses, exudates, or evidence of obstruction, uvula midline. Mucous membranes moist. Neck: Trachea midline, no thyromegaly or masses palpated, and no cervical lymphadenopathy. Supple, full range of motion without nuchal rigidity, or vertebral point tenderness. No Meningismus. Chest/axilla: Normal chest wall appearance and motion. Nontender with no deformity. No lesions are appreciated. Cardiovascular: Regular rate and rhythm with a normal S1 and S2. No gallops, murmurs, or rubs. Normal PMI, no JVD. No pulse deficits. Abdomen/GI: Soft, non-tender, with normal bowel sounds. No distension or tympany. No guarding or rebound. No evidence of tenderness throughout. Back: No spinal tenderness. No costovertebral tenderness. Full range of motion. Male : Normal genitalia with no discharge or lesions. Skin: Warm, dry with normal turgor. Normal color with no rashes, no lesions, and no evidence of cellulitis. Neuro: Awake and alert, GCS 15, oriented to person, place, time, and situation. Cranial nerves II-XII grossly intact. Motor strength 5/5 in all extremities. Sensory grossly intact. Cerebellar exam normal. Normal gait. Psych: Awake, alert, with orientation to person, place and time. Behavior, mood, and affect are within normal limits. 21:18 Respiratory: the patient does not display signs of respiratory distress, Respirations: normal, Breath sounds: rhonchi, that are mild. 21:18 Musculoskeletal/extremity: DVT Exam: No signs of deep vein thrombosis. no pain, no swelling, no tenderness, negative Homans' sign noted on exam, no appreciated bluish discoloration, no erythema, no increased warmth. Vital Signs: 19:28 BP 165 / 89; Pulse 101; Resp 20; Temp 98.7; Pulse Ox 95% on R/A; Weight 116.12 kg (R); aj1 Height 5 ft. 6 in. (167.64 cm) (R); 22:06 BP 157 / 79; Pulse 82; Resp 16; Pulse Ox 92% on R/A; aa1 22:59 BP 157 / 89; Pulse 73; Resp 20; Temp 98.8; Pulse Ox 95% on R/A; Pain 4/10; aa1 19:28 Body Mass Index 41.32 (116.12 kg, 167.64 cm) aj1 MDM: 20:29 Patient medically screened. [facility] 21:21 Data reviewed: vital signs, nurses notes, lab test result(s), EKG, radiologic studies, rambo plain films. 09/12 20:30 Order name: Basic Metabolic Panel; Complete Time: 22:11 [facility] 09/12 20:30 Order name: CBC with Diff; Complete Time: 22:11 [facility] 09/12 20:30 Order name: LFT's; Complete Time: 22:11 [facility] 09/12 20:30 Order name: Magnesium; Complete Time: 22:11 [facility] 09/12 20:30 Order name: NT PRO-BNP; Complete Time: 22:11 [facility] 09/12 20:30 Order name: PT-INR; Complete Time: 22:11 [facility] 09/12 20:30 Order name: Troponin (emerg Dept Use Only); Complete Time: 22:11 [facility] 09/12 20:30 Order name: XRAY Chest (1 view) [facility] 09/12 20:30 Order name: Lipase; Complete Time: 22:11 [facility] 09/12 20:30 Order name: Urine Culture [facility] 09/12 21:19 Order name: Urine Dipstick--Ancillary (enter results); Complete Time: 22:11 [facility] 09/12 20:30 Order name: EKG; Complete Time: 20:32 [facility] 09/12 20:30 Order name: Cardiac monitoring; Complete Time: 21:12 [facility] 09/12 20:30 Order name: EKG - Nurse/Tech; Complete Time: 21:12 [facility] 09/12 20:30 Order name: IV Saline Lock; Complete Time: 20:57 [facility] 09/12 20:30 Order name: Labs collected and sent; Complete Time: 20:57 [facility] 09/12 20:30 Order name: O2 Per Protocol; Complete Time: 20:57 [facility] 09/12 20:30 Order name: O2 Sat Monitoring; Complete Time: 20:57 [facility] 09/12 20:30 Order name: Urine Dipstick-Ancillary (obtain specimen); Complete Time: 21:12 [facility] Administered Medications: 21:12 Drug: NS 0.9% 1000 ml Route: IV; Rate: 125 ml/hr; Site: left antecubital; aa1 22:46 Drug: Xopenex 1.25 mg Route: Inhalation; aa1 22:46 Drug: AtroVENT Aerosol 0.5 mg Route: Inhalation; aa1 22:47 Drug: Lasix 20 mg Route: IVP; Site: left antecubital; aa1 22:59 Follow up: Response: No adverse reaction; Medication administered at discharge. aa1 Disposition: 09/13/19 22:17 Discharged to Home. Impression: Essential (primary) hypertension, Chronic obstructive pulmonary disease, unspecified, Type 2 diabetes mellitus. - Condition is Stable. - Discharge Instructions: Chronic Bronchitis, Type 2 Diabetes Mellitus, Diagnosis, Adult, Hypertension, Hypertension, [id number], Cough, Adult, Panu-[id number], Aspirin and Your Heart, Type 2 Diabetes Mellitus, Diagnosis, Adult, [id number], Managing Your Hypertension. - Medication Reconciliation Form, Thank You Letter, Antibiotic Education, Prescription Opioid Use form. - Follow up: Private Physician; When: 2 - 3 days; Reason: Recheck today's complaints, Continuance of care, Re-evaluation by your physician. Follow up: Nazario Anderson MD; When: 2 - 3 days; Reason: Recheck today's complaints, Re-evaluation by your physician. - Problem is new. - Symptoms have improved. Signatures: Dispatcher [employer] Sania Johns RN RN aj1 Olivia Abdi RN RN aa1 Lenard Rosario MD MD cha Corrections: (The following items were deleted from the chart) 23:02 22:17 09/13/2019 22:17 Discharged to Home. Impression: Essential (primary) aa1 hypertension; Chronic obstructive pulmonary disease, unspecified; Type 2 diabetes mellitus. Condition is Stable. Forms are Medication Reconciliation Form, Thank You Letter, Antibiotic Education, Prescription Opioid Use. Follow up: Private Physician; When: 2 - 3 days; Reason: Recheck today's complaints, Continuance of care, Re-evaluation by your physician. Follow up: Nazario Anderson; When: 2 - 3 days; Reason: Recheck today's complaints, Re-evaluation by your physician. Problem is new. Symptoms have improved. rambo
--- NOTE | 2019-09-13 22:18 | ER ---
Nurse's Notes [facility] Name: Juan Miguel Langston Age: 54 yrs Sex: Male : 1965 Arrival Date: 09/13/2019 Time: 19:21 Bed 16 Private MD: Diagnosis: Essential (primary) hypertension;Chronic obstructive pulmonary disease, unspecified;Type 2 diabetes mellitus Presentation: 09/12 19:28 Chief complaint: Patient states: "I got fluid build up, in my legs, my arm. my blood aj1 pressure is up and I got pain in my rib cage" Reports that he has been having the pain to his ribs for 2 weeks. Patient reports shortness of breath on exertion, states "I've been short of breath because of my COPD, I did the full function tests, I'm waiting on results". Coronavirus screen: The patient has NOT traveled to a country currently being monitored by the [facility] within the last 14 days. Ebola Screen: Patient denies travel to an Ebola-affected area in the 21 days before illness onset. Initial Sepsis Screen: Does the patient meet any 2 criteria? HR > 90 bpm. No. Patient's initial sepsis screen is negative. Does the patient have a suspected source of infection? No. Patient's initial sepsis screen is negative. Risk Assessment: Do you want to hurt yourself or someone else? Patient reports no desire to harm self or others. 19:28 Method Of Arrival: Ambulatory aj1 19:28 Acuity: DESTINY 3 aj1 Triage Assessment: 19:33 General: Appears in no apparent distress. comfortable, Behavior is calm, cooperative, aj1 appropriate for age. Pain: Complains of pain in diaphragm Pain currently is 10 out of 10 on a pain scale. Neuro: Level of Consciousness is awake, alert, obeys commands. Cardiovascular: Patient's skin is warm and dry. Respiratory: Airway is patent Respiratory effort is even, unlabored, Respiratory pattern is regular, symmetrical. Historical: - Allergies: 19:33 Azithromycin; aj1 19:33 Metoprolol Tartrate; aj1 - Home Meds: 19:33 aspirin 81 mg Oral TbEC [Active]; Lisinopril Oral [Active]; Lasix 20 mg Oral tab aj1 [Active]; isosorbide [Active]; - PMHx: 19:33 Angina; COPD; Diabetes - NIDDM; High Cholesterol; Hypertension; Myocardial infarction; aj1 Sleep Apnea; - Immunization history:: Flu vaccine is up to date. - Social history:: Smoking status: Patient reports the use of cigarette tobacco products, 1 cigarette per day. - Family history:: not pertinent. Screenin:20 Abuse screen: Denies threats or abuse. Denies injuries from another. Nutritional aa1 screening: No deficits noted. Tuberculosis screening: No symptoms or risk factors identified. Fall Risk None identified. Assessment: 20:20 General: Appears in no apparent distress. comfortable, obese, unkempt, Behavior is aa1 calm, cooperative, appropriate for age. Pain: Complains of pain in diaphragm Pain began 2 weeks ago. Neuro: Level of Consciousness is awake, alert, obeys commands, Oriented to person, place, time, situation, Moves all extremities. Full function Gait is steady, Speech is normal. Cardiovascular: Denies chest pain, palpitations, shortness of breath, Heart tones S1 S2 present Edema is 1+ to left ankle and right ankle Rhythm is regular. Respiratory: Airway is patent Respiratory effort is even, unlabored, Respiratory pattern is regular, symmetrical. GI: No signs and/or symptoms were reported involving the gastrointestinal system. : No signs and/or symptoms were reported regarding the genitourinary system. EENT: No signs and/or symptoms were reported regarding the EENT system. Derm: Skin is intact, is healthy with good turgor, Skin is pink, warm \\T\\ dry. Musculoskeletal: Circulation, motion, and sensation intact. Capillary refill < 3 seconds. 21:30 Reassessment: Patient appears in no apparent distress at this time. Patient and/or aa1 family updated on plan of care and expected duration. Pain level reassessed. Patient is alert, oriented x 3, equal unlabored respirations, skin warm/dry/pink. Awaiting completion of test results. 22:59 Reassessment: Patient appears in no apparent distress at this time. Patient is alert, aa1 oriented x 3, equal unlabored respirations, skin warm/dry/pink. Discussed d/c \\T\\ f/u instructions with pt; denies questions or concerns at this time. Ambulatory to lobby with steady gait. Patient states feeling better. Patient states symptoms have improved. Vital Signs: 19:28 BP 165 / 89; Pulse 101; Resp 20; Temp 98.7; Pulse Ox 95% on R/A; Weight 116.12 kg (R); aj1 Height 5 ft. 6 in. (167.64 cm) (R); 22:06 BP 157 / 79; Pulse 82; Resp 16; Pulse Ox 92% on R/A; aa1 22:59 BP 157 / 89; Pulse 73; Resp 20; Temp 98.8; Pulse Ox 95% on R/A; Pain 4/10; aa1 19:28 Body Mass Index 41.32 (116.12 kg, 167.64 cm) aj1 ED Course: 19:21 Patient arrived in ED. jg7 19:32 Triage completed. aj1 19:33 Arm band placed on Patient placed in waiting room, Patient notified of wait time. aj1 20:20 Patient has correct armband on for positive identification. Placed in gown. Bed in low aa1 position. Call light in reach. mutuel clerk on. Pulse ox on. NIBP on. 20:29 Lenard Rosario MD is Attending Physician. rambo 20:55 Inserted saline lock: 20 gauge in left antecubital area, using aseptic technique. Blood rv collected. 20:55 Initial lab(s) drawn, by az, sent to lab. rv 20:56 Alex Gil, NICCI is Primary Nurse. rv 21:01 XRAY Chest (1 view) In Process Unspecified. EDMS 22:16 Nazario Anderson MD is Referral Physician. rambo 22:59 No provider procedures requiring assistance completed. IV discontinued, intact, aa1 bleeding controlled, No redness/swelling at site. Pressure dressing applied. Administered Medications: 21:12 Drug: NS 0.9% 1000 ml Route: IV; Rate: 125 ml/hr; Site: left antecubital; aa1 22:46 Drug: Xopenex 1.25 mg Route: Inhalation; aa1 22:46 Drug: AtroVENT Aerosol 0.5 mg Route: Inhalation; aa1 22:47 Drug: Lasix 20 mg Route: IVP; Site: left antecubital; aa1 22:59 Follow up: Response: No adverse reaction; Medication administered at discharge. aa1 Outcome: 22:17 Discharge ordered by . rambo 22:59 Discharged to home ambulatory, with significant other. aa1 22:59 Condition: good 22:59 Discharge instructions given to patient, significant other, Instructed on discharge instructions, follow up and referral plans. Demonstrated understanding of instructions, follow-up care. 23:02 Patient left the ED. aa1 Signatures: Dispatcher [employer] Sania Johns, RN RN aj1 Olivia Abdi RN RN aa1 Lenard Rosario MD MD cha Vicente, Ronaldo, RN RN rv Gutierrez, Jessica jg7
[2019-09-13] MEDS ORDERED: FUROSEMIDE 20 MG/ 2ML VIAL ONE (22:44)
[2019-09-13] MEDS ORDERED: IPRATROPIUM BROM 0.5MG/2.5ML ONE (22:44)
[2019-09-13] MEDS ORDERED: ALBUTEROL 2.5 MG/3 ML NEB SOL ONE (22:44)
[2019-09-13 23:35] VITALS: BP 157/89; TEMP 98.8; O2SAT 95
--- NOTE | 2019-09-14 07:29 | EKG ---
Test Date: 2019-09-13 Test Time: 21:04:35 Barrel Filler Head: RV MEASUREMENT RESULTS: Intervals: Rate: 84 MN: 148 QRSD: 94 QT: 360 QTc: 425 [place]: P: 57 MN: 148 QRS: 44 T: -3 INTERPRETIVE STATEMENTS: Normal sinus rhythm Normal ECG Compared to ECG 07/01/2019 12:26:02 Sinus tachycardia no longer present ST (T wave) deviation no longer present Possible ischemia no longer present Electronically Signed On 09-14-19 07:27:45 CDT by Nazario Anderson
--- NOTE | 2019-09-14 08:18 | RAD REPORT ---
EXAM DESCRIPTION: RAD - Chest Single View - 09/13/2019 9:01 pm CLINICAL HISTORY: Cough;COPD;Chest pain COMPARISON: Two-view chest exam July 02, 2019 TECHNIQUE: AP portable chest image was obtained 09/13/2019 9:01 pm . FINDINGS: No focal mass or consolidation. Lung markings are not substantially different from the com parison. Baseline prominence could potentially mask a very early interstitial edema or infiltrate pro cess. Trachea is midline. Heart and vasculature are normal. No measurable pleural effusion and no pne umothorax. No acute bony abnormality seen. No acute aortic findings suspected. IMPRESSION: No acute cardiopulmonary process. Mild baseline interstitial pattern potentially masks the very early stages of interstitial edema or i nfiltrate.
== END 2019-09-13 23:02 | disposition home or self-care (01) ==
LOC: ER 19:17
DX: I10 Essential (primary) hypertension (principal); J44.9 Chronic obstructive pulmonary disease, unspecified; E11.9 Type 2 diabetes mellitus without complications; F17.210 Nicotine dependence, cigarettes, uncomplicated; E78.00 Pure hypercholesterolemia, unspecified; Z79.82 Long term (current) use of aspirin; Z88.8 Allergy status to other drugs, medicaments and biological substances
CPT/HCPCS: 36415; 71045; 80048; 80076; 81003; 83690; 83735; 83880; 84484; 85025; 85610; 87086; 87088; 93005; 96374; 99285; J1940

== ENCOUNTER 2019-09-22 | Emergency (ER) | payer SELFPAY ==
--- OUTSIDE RECORDS SUMMARY | 2019-09-22 09:53 | XMS REPORT ---
:1965 [facility] Address [address] [place] [address] Dr. Fierro [address] [place] [id number] Care Team Providers Name Role Phone Unavailable Unavailable Unavailable Problems This patient has no known problems. Allergies, Adverse Reactions, Alerts This patient has no known allergies or adverse reactions. Medications This patient has no known medications.
--- NOTE | 2019-09-22 10:47 | EDPHYS ---
Physician Documentation [facility] Name: Juan Miguel Langston Age: 54 yrs Sex: Male : 1965 Arrival Date: 09/22/2019 Time: 09:48 Bed DIS4 Private MD: ED Physician Rashard Bardales HPI: 09/21 13:14 This 54 yrs old Male presents to ER via Ambulatory with complaints of Cough, snw Sneezing, Shortness Of Breath. 13:14 The patient or guardian reports runny nose. Onset: The symptoms/episode began/occurred snw suddenly. Severity of symptoms: At their worst the symptoms were very mild. Associated signs and symptoms: The patient has no apparent associated signs or symptoms. It is unknown whether or not the patient has had similar symptoms in the past. The patient has not recently seen a physician. Historical: - Allergies: 10:13 Azithromycin; bp 10:13 Metoprolol Tartrate; bp - Home Meds: 10:13 aspirin 81 mg Oral TbEC [Active]; isosorbide [Active]; Lasix 20 mg Oral tab [Active]; bp lisinopril Oral [Active]; - PMHx: 10:13 Angina; COPD; Diabetes - NIDDM; High Cholesterol; Hypertension; Myocardial infarction; bp Sleep Apnea; - Immunization history:: Adult Immunizations unknown. - Social history:: Smoking status: Patient reports the use of cigarette tobacco products, unknown amount. ROS: 13:11 Constitutional: Negative for fever, chills, and weight loss, Eyes: Negative for injury, snw pain, redness, and discharge, ENT: Negative for injury, pain, and discharge, little bit of runny nose, so i didnt want to take any chances Neck: Negative for injury, pain, and swelling, Cardiovascular: Negative for chest pain, palpitations, and edema, Respiratory: Negative for shortness of breath, cough, wheezing, and pleuritic chest pain, Abdomen/GI: Negative for abdominal pain, nausea, vomiting, diarrhea, and constipation, Back: Negative for injury and pain, : Negative for injury, bleeding, discharge, and swelling, MS/Extremity: Negative for injury and deformity, Skin: Negative for injury, rash, and discoloration, Neuro: Negative for headache, weakness, numbness, tingling, and seizure, Psych: Negative for depression, anxiety, suicide ideation, homicidal ideation, and hallucinations. Exam: 13:14 Constitutional: This is a well developed, well nourished patient who is awake, alert, snw and in no acute distress. Head/Face: Normocephalic, atraumatic. Eyes: Pupils equal round and reactive to light, extra-ocular motions intact. Lids and lashes normal. Conjunctiva and sclera are non-icteric and not injected. Cornea within normal limits. Periorbital areas with no swelling, redness, or edema. ENT: Nares patent. No nasal discharge, no septal abnormalities noted. Tympanic membranes are normal and external auditory canals are clear. Oropharynx with no redness, swelling, or masses, exudates, or evidence of obstruction, uvula midline. Mucous membranes moist. Neck: Trachea midline, no thyromegaly or masses palpated, and no cervical lymphadenopathy. Supple, full range of motion without nuchal rigidity, or vertebral point tenderness. No Meningismus. Chest/axilla: Normal chest wall appearance and motion. Nontender with no deformity. No lesions are appreciated. Cardiovascular: Regular rate and rhythm with a normal S1 and S2. No gallops, murmurs, or rubs. Normal PMI, no JVD. No pulse deficits. Respiratory: Lungs have equal breath sounds bilaterally, clear to auscultation and percussion. No rales, rhonchi or wheezes noted. No increased work of breathing, no retractions or nasal flaring. Abdomen/GI: Soft, non-tender, with normal bowel sounds. No distension or tympany. No guarding or rebound. No evidence of tenderness throughout. Back: No spinal tenderness. No costovertebral tenderness. Full range of motion. Skin: Warm, dry with normal turgor. Normal color with no rashes, no lesions, and no evidence of cellulitis. MS/ Extremity: Pulses equal, no cyanosis. Neurovascular intact. Full, normal range of motion. Neuro: Awake and alert, GCS 15, oriented to person, place, time, and situation. Cranial nerves II-XII grossly intact. Motor strength 5/5 in all extremities. Sensory grossly intact. Cerebellar exam normal. Normal gait. Psych: Awake, alert, with orientation to person, place and time. Behavior, mood, and affect are within normal limits. Vital Signs: 10:05 BP 164 / 84; Pulse 98; Resp 19; Temp 98.7; Pulse Ox 98% ; Weight 116.12 kg; Height 5 bp ft. 6 in. (167.64 cm); 11:05 BP 159 / 83; Pulse 95; Resp 17; Temp 98.7; Pulse Ox 98% ; bp 10:05 Body Mass Index 41.32 (116.12 kg, 167.64 cm) bp MDM: 10:18 Patient medically screened. snw 13:13 Data reviewed: vital signs, nurses notes. Data interpreted: Pulse oximetry: on room air snw is 98 %. Interpretation: normal. Counseling: I had a detailed discussion with the patient and/or guardian regarding: the historical points, exam findings, and any diagnostic results supporting the discharge/admit diagnosis, the presence of at least one elevated blood pressure reading (>120/80) during this emergency department visit, the need for outpatient follow up. Special discussion: Based on the history and exam findings, there is no indication for further emergent testing or inpatient evaluation. I discussed with the patient/guardian the need to see the primary care provider for further evaluation of the symptoms. Administered Medications: No medications were administered Disposition: 13:45 Co-signature as Attending Physician, Rashard Bardales MD I agree with the assessment and kdr plan of care. Disposition: 09/22/19 10:46 Discharged to Home. Impression: Encounter for screening, unspecified. - Condition is Stable. - Discharge Instructions: Upper Respiratory Infection, Adult. - Medication Reconciliation Form, Thank You Letter, Antibiotic Education, Prescription Opioid Use form. - Follow up: Private Physician; When: As needed; Reason: Recheck today's complaints, Continuance of care, Re-evaluation by your physician. Signatures: Rashard Bardales MD MD [facility] Ayleen Galan, SHIP LOADER-C SHIP LOADER-Csnw Cl Gan, NICCI RN bp Corrections: (The following items were deleted from the chart) 11:08 10:46 09/22/2019 10:46 Discharged to Home. Impression: Encounter for screening, bp unspecified. Condition is Stable. Forms are Medication Reconciliation Form, Thank You Letter, Antibiotic Education, Prescription Opioid Use. Follow up: Private Physician; When: As needed; Reason: Recheck today's complaints, Continuance of care, Re-evaluation by your physician. snw
--- NOTE | 2019-09-22 10:47 | ER ---
Nurse's Notes [facility] [place], [place] Name: Juan Miguel Langston Age: 54 yrs Sex: Male : 1965 Arrival Date: 09/22/2019 Time: 09:48 Bed DIS4 Private MD: Diagnosis: Encounter for screening, unspecified Presentation: 09/21 10:05 Chief complaint: I'VE BEEN SNEEZING. Coronavirus screen: Patient denies fever greater bp than 100.4F, cough, shortness of breath, or difficulty breathing. Ebola Screen: No symptoms or risks identified at this time. Onset: The symptoms/episode began/occurred at an unknown time. Anaphylaxis evaluation, no signs or symptoms of anaphylaxis were noted. Initial Sepsis Screen: Does the patient meet any 2 criteria? HR > 90 bpm. Does the patient have a suspected source of infection? No. Patient's initial sepsis screen is negative. Risk Assessment: Do you want to hurt yourself or someone else? Patient reports no desire to harm self or others. 10:05 Method Of Arrival: Ambulatory bp 10:05 Acuity: DESTINY 5 bp Triage Assessment: 10:05 General: Appears in no apparent distress. comfortable, Behavior is cooperative, bp appropriate for age. Pain: Denies pain. EENT: No deficits noted. Neuro: No deficits noted. Cardiovascular: No deficits noted. Respiratory: No deficits noted. GI: No signs and/or symptoms were reported involving the gastrointestinal system. : No signs and/or symptoms were reported regarding the genitourinary system. Derm: No deficits noted. Musculoskeletal: No deficits noted. Historical: - Allergies: 10:13 Azithromycin; bp 10:13 Metoprolol Tartrate; bp - Home Meds: 10:13 aspirin 81 mg Oral TbEC [Active]; isosorbide [Active]; Lasix 20 mg Oral tab [Active]; bp lisinopril Oral [Active]; - PMHx: 10:13 Angina; COPD; Diabetes - NIDDM; High Cholesterol; Hypertension; Myocardial infarction; bp Sleep Apnea; - Immunization history:: Adult Immunizations unknown. - Social history:: Smoking status: Patient reports the use of cigarette tobacco products, unknown amount. Screenin:05 Abuse screen: Denies threats or abuse. Denies injuries from another. Nutritional bp screening: No deficits noted. Tuberculosis screening: No symptoms or risk factors identified. Fall Risk None identified. Assessment: 10:05 General: SEE TRIAGE NOTE. bp 11:05 Reassessment: PT D/C HOME AMBULATORY WITH FAMILY, DX WITH SCREENING ENCOUNTER. bp Respiratory: Airway is patent Respiratory effort is even, unlabored, Breath sounds are clear bilaterally. Vital Signs: 10:05 BP 164 / 84; Pulse 98; Resp 19; Temp 98.7; Pulse Ox 98% ; Weight 116.12 kg; Height 5 bp ft. 6 in. (167.64 cm); 11:05 BP 159 / 83; Pulse 95; Resp 17; Temp 98.7; Pulse Ox 98% ; bp 10:05 Body Mass Index 41.32 (116.12 kg, 167.64 cm) bp ED Course: 09:48 Patient arrived in ED. ag5 10:05 Cl Gan, RN is Primary Nurse. bp 10:05 Arm band placed on. bp 10:05 Patient has correct armband on for positive identification. Bed in low position. Call bp light in reach. Side rails up X2. Adult w/ patient. 10:11 Ayleen Galan FNP-C is PHCP. snw 10:11 Rashard Bardales MD is Attending Physician. snw 10:12 Triage completed. bp 11:05 No provider procedures requiring assistance completed. Patient did not have IV access bp during this emergency room visit. Administered Medications: No medications were administered Outcome: 10:46 Discharge ordered by MD. snw 11:05 Discharged to home ambulatory, with family. bp 11:05 Condition: stable 11:05 Discharge instructions given to patient, Instructed on discharge instructions, follow up and referral plans. Demonstrated understanding of instructions, follow-up care. 11:08 Patient left the ED. bp Signatures: Ayleen Galan FNP-C FIELD FOREMAN-Csnw Cl Gan, RN RN bp Lilibeth Noble ag5
== END 2019-09-22 11:08 | disposition home or self-care (01) ==
CPT/HCPCS: 99281

== ENCOUNTER 2019-09-28 13:13 | Emergency (ER) | payer SELFPAY ==
--- OUTSIDE RECORDS SUMMARY | 2019-09-28 13:15 | XMS REPORT ---
:1965 [facility] Address [address] [place] [address] Dr. Fierro [address] [place] [id number] Care Team Providers Name Role Phone Unavailable Unavailable Unavailable Problems This patient has no known problems. Allergies, Adverse Reactions, Alerts This patient has no known allergies or adverse reactions. Medications This patient has no known medications.
[2019-09-28] MEDS ORDERED: KETOROLAC 30 MG/ML INJ ONE (13:55)
[2019-09-28] MEDS ORDERED: NA CHLORIDE 0.9% 500 ML ONE (13:55)
[2019-09-28 14:26] LABS: Absolute Lymphocytes (CBC) 2.1 K/uL (0.7-4.9); Basophils % 0.2 % (0-1.3); Hematocrit 45.6 % (39.6-49.0); Lymphocytes % 25.7 % (15.3-44.8); MPV 9.3 fL (7.6-11.3); RBC Red Blood Cell Count 5.34 M/uL (4.33-5.43)
--- NOTE | 2019-09-28 14:33 | RAD REPORT ---
EXAM DESCRIPTION: CT - Stone Protocol - 09/28/2019 2:20 pm CLINICAL HISTORY: Abdominal pain. Right flank pain COMPARISON: 2018 TECHNIQUE: Computed axial tomography of the abdomen pelvis was obtained without oral or IV contrast. Lack of IV and oral contrast limits evaluation of solid organs, bowel, and vessels. Coronal reformat meredith images were obtained and reviewed. All CT scans are performed using dose optimization technique as appropriate and may include automated exposure control or mA/KV adjustment according to patient size. FINDINGS: A renal calculus is not seen. An ureteral calculus is not noted. A bladder calculus is not present. Small left renal cyst The liver, spleen, pancreas and adrenals appear grossly normal There is no evidence of diverticulitis. The appendix appears normal Small right inguinal hernia contains fat. The prostate gland is mildly to moderately enlarged IMPRESSION: Negative for a genitourinary calculus
[2019-09-28 14:40] LABS: ALT/SGPT 66 U/L (12-78); AST/SGOT 25 U/L (15-37); Albumin 3.8 g/dL (3.4-5.0); Alkaline Phosphatase 48 U/L (45-117); BUN Blood Urea Nitrogen 14 mg/dL (7-18); Bicarbonate 27 mmol/L (21-32); Bilirubin Direct < 0.1 mg/dL (0-0.2); Bilirubin Total 0.3 mg/dL (0.2-1.0); Glucose Level 94 mg/dL (74-106); Potassium 3.5 mmol/L (3.5-5.1); Protein, Total 7.4 g/dL (6.4-8.2); Sodium Level 141 mmol/L (136-145)
--- NOTE | 2019-09-28 16:04 | EDPHYS ---
Physician Documentation [facility] Name: Juan Miguel Langston Age: 54 yrs Sex: Male : 1965 Arrival Date: 09/28/2019 Time: 13:16 Bed 15 Private MD: ED Physician Rashard Bardales HPI: 09/27 18:27 This 54 yrs old Male presents to ER via Ambulatory with complaints of Righth kdr flank pain. 18:28 The patient complains of pain in the right mid back. The pain radiates to the dorsum of kdr right foot. Onset: The symptoms/episode began/occurred suddenly, at 03:30. Modifying factors: The symptoms are alleviated by nothing. the symptoms are aggravated by nothing. Associated signs and symptoms: The patient has no apparent associated signs or symptoms. Severity of pain: At its worst the pain was moderate severe this morning, in the emergency department the pain has improved moderately. The patient has not experienced similar symptoms in the past. The patient has not recently seen a physician. Historical: - Allergies: 13:20 Azithromycin; iw 13:20 Metoprolol Tartrate; iw - PMHx: 13:20 Angina; COPD; Diabetes - NIDDM; High Cholesterol; Hypertension; Myocardial infarction; iw Sleep Apnea; - PSHx: 13:20 None; iw - Immunization history:: Adult Immunizations up to date. - Social history:: Smoking status: Reported history of juuling and/or vaping. ROS: 18:28 Constitutional: Negative for fever, chills, and weight loss, Eyes: Negative for injury, kdr pain, redness, and discharge, ENT: Negative for injury, pain, and discharge, Neck: Negative for injury, pain, and swelling, Cardiovascular: Negative for chest pain, palpitations, and edema, Respiratory: Negative for shortness of breath, cough, wheezing, and pleuritic chest pain, Abdomen/GI: Negative for abdominal pain, nausea, vomiting, diarrhea, and constipation, : Negative for injury, bleeding, discharge, and swelling, MS/Extremity: Negative for injury and deformity, Skin: Negative for injury, rash, and discoloration, Neuro: Negative for headache, weakness, numbness, tingling, and seizure activity. Psych: Negative for depression, anxiety, suicide ideation, homicidal ideation, and hallucinations, Allergy/Immunology: Negative for hives, rash, and allergies, Endocrine: Negative for neck swelling, polydipsia, polyuria, polyphagia, and marked weight changes, Hematologic/Lymphatic: Negative for swollen nodes, abnormal bleeding, and unusual bruising. 18:28 Back: Positive for pain at rest, of the right mid back. Exam: 18:28 Constitutional: This is a well developed, well nourished patient who is awake, alert, kdr and in no acute distress. Head/Face: Normocephalic, atraumatic. Eyes: Pupils equal round and reactive to light, extra-ocular motions intact. Lids and lashes normal. Conjunctiva and sclera are non-icteric and not injected. Cornea within normal limits. Periorbital areas with no swelling, redness, or edema. Neck: Trachea midline, no thyromegaly or masses palpated, and no cervical lymphadenopathy. Supple, full range of motion without nuchal rigidity, or vertebral point tenderness. No Meningismus. Chest/axilla: Normal chest wall appearance and motion. Nontender with no deformity. No lesions are appreciated. Cardiovascular: Regular rate and rhythm with a normal S1 and S2. No gallops, murmurs, or rubs. Normal PMI, no JVD. No pulse deficits. Respiratory: Lungs have equal breath sounds bilaterally, clear to auscultation and percussion. No rales, rhonchi or wheezes noted. No increased work of breathing, no retractions or nasal flaring. Abdomen/GI: Soft, non-tender, with normal bowel sounds. No distension or tympany. No guarding or rebound. No evidence of tenderness throughout. Back: No spinal tenderness. No costovertebral tenderness. Full range of motion. Skin: Warm, dry with normal turgor. Normal color with no rashes, no lesions, and no evidence of cellulitis. MS/ Extremity: Pulses equal, no cyanosis. Neurovascular intact. Full, normal range of motion. Neuro: Awake and alert, GCS 15, oriented to person, place, time, and situation. Cranial nerves II-XII grossly intact. Motor strength 5/5 in all extremities. Sensory grossly intact. Cerebellar exam normal. Normal gait. Psych: Awake, alert, with orientation to person, place and time. Behavior, mood, and affect are within normal limits. Vital Signs: 13:18 BP 138 / 109; Pulse 97; Resp 18; Temp 98.4; Pulse Ox 98% on R/A; Weight 116.12 kg; iw Height 5 ft. 6 in. (167.64 cm); Pain 10/10; 15:00 BP 127 / 97; Pulse 81; Resp 18; Pulse Ox 99% on R/A; ph 16:15 BP 128 / 99; Pulse 86; Resp 18; Temp 97.9; Pulse Ox 99% on R/A; ph 13:18 Body Mass Index 41.32 (116.12 kg, 167.64 cm) iw MDM: 16:03 Patient medically screened. kdr 16:33 Data reviewed: vital signs, nurses notes, lab test result(s), radiologic studies. kdr Counseling: I had a detailed discussion with the patient and/or guardian regarding: the historical points, exam findings, and any diagnostic results supporting the discharge/admit diagnosis, lab results, radiology results, the need for outpatient follow up. ED course: The patient SAMPLE WRAPPER score was \R\200. 09/27 13:22 Order name: Basic Metabolic Panel; Complete Time: 15:37 [facility] 09/27 13:22 Order name: CBC with Diff; Complete Time: 15:37 [facility] 09/27 13:22 Order name: Creatinine for Radiology; Complete Time: 15:37 [facility] 09/27 13:22 Order name: Hepatic Function; Complete Time: 15:37 [facility] 09/27 13:46 Order name: CT Stone Protocol; Complete Time: 15:37 [facility] 09/27 13:22 Order name: IV Saline Lock [facility] 09/27 13:22 Order name: Labs collected and sent [facility] 09/27 13:46 Order name: Urine Dipstick-Ancillary (obtain specimen) kdr Administered Medications: 14:15 Drug: NS 0.9% 500 ml Route: IV; Rate: bolus; Site: right hand; ph 16:00 Follow up: Response: No adverse reaction; IV Status: Completed infusion; IV Intake: ph 500ml 14:16 Drug: TORadol - Ketorolac 15 mg Route: IVP; Site: right hand; ph 15:00 Follow up: Response: No adverse reaction; Pain is decreased ph Disposition: 09/28/19 16:03 Discharged to Home. Impression: Flank pain. - Condition is Stable. - Discharge Instructions: Flank Pain, [id number]. - Prescriptions for Tramadol 50 mg Oral Tablet - take 1 tablet by ORAL route every 8 hours as needed; 12 tablet. - Medication Reconciliation Form, Thank You Letter, Prescription Opioid Use form. - Follow up: Private Physician; When: 2 - 3 days; Reason: If symptoms return, Further diagnostic work-up, Recheck today's complaints, Continuance of care, Re-evaluation by your physician. - Problem is new. - Symptoms have improved. Signatures: Dispatcher [employer] EDDC Rashard Bardales MD MD kdr Adeline Langston RN RN iw Frida Leyva RN RN ph Corrections: (The following items were deleted from the chart) 16:50 16:03 09/28/2019 16:03 Discharged to Home. Impression: Flank pain. Condition is Stable. ph Forms are Medication Reconciliation Form, Thank You Letter, Antibiotic Education, Prescription Opioid Use. Follow up: Private Physician; When: 2 - 3 days; Reason: If symptoms return, Further diagnostic work-up, Recheck today's complaints, Continuance of care, Re-evaluation by your physician. Problem is new. Symptoms have improved. kdr
--- NOTE | 2019-09-28 16:04 | ER ---
Nurse's Notes [facility] Name: Juan Miguel Langston Age: 54 yrs Sex: Male : 1965 Arrival Date: 09/28/2019 Time: 13:16 Bed 15 Private MD: Diagnosis: Flank pain Presentation: 09/27 13:18 Chief complaint: Patient states: is having pain from right kidney down to right leg iw down to foot, denies injury, feels sharp like stabbing pain shooting down leg, denies blood in urine. Coronavirus screen: Patient denies fever greater than 100.4F, cough, shortness of breath, or difficulty breathing. Proceed with normal triage process. Ebola Screen: Patient negative for fever greater than or equal to 101.5 degrees Fahrenheit, and additional compatible Ebola Virus Disease symptoms Patient denies exposure to infectious person. Patient denies travel to an Ebola-affected area in the 21 days before illness onset. No symptoms or risks identified at this time. Initial Sepsis Screen: Does the patient meet any 2 criteria? No. Patient's initial sepsis screen is negative. Does the patient have a suspected source of infection? No. Patient's initial sepsis screen is negative. Risk Assessment: Do you want to hurt yourself or someone else? Patient reports no desire to harm self or others. 13:18 Method Of Arrival: Ambulatory iw 13:18 Acuity: DESTINY 3 iw Historical: - Allergies: 13:20 Azithromycin; iw 13:20 Metoprolol Tartrate; iw - PMHx: 13:20 Angina; COPD; Diabetes - NIDDM; High Cholesterol; Hypertension; Myocardial infarction; iw Sleep Apnea; - PSHx: 13:20 None; iw - Immunization history:: Adult Immunizations up to date. - Social history:: Smoking status: Reported history of juuling and/or vaping. Screenin:00 Abuse screen: Denies threats or abuse. Denies injuries from another. Nutritional ph screening: No deficits noted. Tuberculosis screening: No symptoms or risk factors identified. Fall Risk None identified. Assessment: 14:00 General: Appears in no apparent distress. comfortable, Behavior is calm, cooperative, ph appropriate for age, Denies fever. Pain: Complains of pain in right lower back Pain radiates to right leg. Neuro: Level of Consciousness is awake, alert, obeys commands, Oriented to person, place, time, situation. Cardiovascular: Capillary refill < 3 seconds in bilateral fingers Patient's skin is warm and dry. Respiratory: Airway is patent Respiratory effort is even, unlabored. GI: Abdomen is round non-distended, Abd is soft and non tender X 4 quads. : Reports pain in right flank(s). Derm: Skin is intact, is healthy with good turgor, Skin is pink, warm \T\ dry. Musculoskeletal: Circulation, motion, and sensation intact. Range of motion: intact in all extremities. Vital Signs: 13:18 BP 138 / 109; Pulse 97; Resp 18; Temp 98.4; Pulse Ox 98% on R/A; Weight 116.12 kg; iw Height 5 ft. 6 in. (167.64 cm); Pain 10/10; 15:00 BP 127 / 97; Pulse 81; Resp 18; Pulse Ox 99% on R/A; ph 16:15 BP 128 / 99; Pulse 86; Resp 18; Temp 97.9; Pulse Ox 99% on R/A; ph 13:18 Body Mass Index 41.32 (116.12 kg, 167.64 cm) iw ED Course: 13:16 Patient arrived in ED. mr 13:20 Triage completed. iw 13:20 Arm band placed on. iw 13:22 Rashard Bardales MD is Attending Physician. kdr 13:48 Frida Leyva, RN is Primary Nurse. ph 14:00 Patient has correct armband on for positive identification. Bed in low position. Call ph light in reach. Side rails up X 1. Pulse ox on. NIBP on. 14:10 No provider procedures requiring assistance completed. Inserted saline lock: 20 gauge ph in right hand, using aseptic technique. 14:21 CT Stone Protocol In Process Unspecified. EDMS 16:45 IV discontinued, intact, bleeding controlled, No redness/swelling at site. Pressure ph dressing applied. Administered Medications: 14:15 Drug: NS 0.9% 500 ml Route: IV; Rate: bolus; Site: right hand; ph 16:00 Follow up: Response: No adverse reaction; IV Status: Completed infusion; IV Intake: ph 500ml 14:16 Drug: TORadol - Ketorolac 15 mg Route: IVP; Site: right hand; ph 15:00 Follow up: Response: No adverse reaction; Pain is decreased ph Intake: 16:00 IV: 500ml; Total: 500ml. ph Outcome: 16:03 Discharge ordered by . kdr 16:50 Patient left the ED. ph 16:50 Discharged to home ambulatory. ph 16:50 Condition: good 16:50 Discharge instructions given to patient, Instructed on discharge instructions, follow up and referral plans. medication usage, Demonstrated understanding of instructions, follow-up care, medications, Prescriptions given X 1. Signatures: Dispatcher [employer] EDUT Rashard Bardales MD MD kdr Rivera, Mary mr Williams, Irene, RN RN Frida Leyva RN RN ph
[2019-09-28 17:14] VITALS: BP 138/109; TEMP 98.4; O2SAT 98
== END 2019-09-28 16:50 | disposition home or self-care (01) ==
LOC: ER 13:13
DX: R10.9 Unspecified abdominal pain (principal); I10 Essential (primary) hypertension; Z88.1 Allergy status to other antibiotic agents; Z88.8 Allergy status to other drugs, medicaments and biological substances; Z87.891 Personal history of nicotine dependence
CPT/HCPCS: 36415; 74176; 76377; 80048; 80076; 85025; 96361; 96374; 99284; J7040

== ENCOUNTER 2019-10-09 15:01 | Emergency (ER) | payer SELFPAY ==
[2019-10-09 18:38] VITALS: BP 158/79; TEMP 97.2; O2SAT 97
== END 2019-10-09 18:32 | disposition home or self-care (01) ==
LOC: ER 15:01
DX: J44.9 Chronic obstructive pulmonary disease, unspecified (principal); E66.9 Obesity, unspecified; E11.9 Type 2 diabetes mellitus without complications; Z72.0 Tobacco use; Z71.6 Tobacco abuse counseling; I10 Essential (primary) hypertension; E78.00 Pure hypercholesterolemia, unspecified; Z79.82 Long term (current) use of aspirin; Z88.1 Allergy status to other antibiotic agents; Z88.8 Allergy status to other drugs, medicaments and biological substances
CPT/HCPCS: 71045; 93005; 99284; J7512

== ENCOUNTER 2019-10-18 19:55 | Emergency (ER) | payer SELFPAY ==
--- OUTSIDE RECORDS SUMMARY | 2019-10-18 19:57 | XMS REPORT ---
:1965 Author Organization [facility] t Address [facility] [place] [address] [place] [address] Care Team Providers Name Role Phone Unavailable Unavailable Unavailable Problems This patient has no known problems. Allergies, Adverse Reactions, Alerts This patient has no known allergies or adverse reactions. Medications This patient has no known medications.
--- OUTSIDE RECORDS SUMMARY | 2019-10-18 20:09 | XMS REPORT | Summary of Care ---
:1965 Author Organization [facility] Address [address] [place] [id number] Care Team Providers Name Role Phone JOSEFINA Lucero Primary Care Provider Reason for Referral Radiology Services (Routine) Status Reason Specialty Diagnoses / Referred By Referred To Procedures Contact Contact New Request Diagnostic Diagnoses Shortness of breath Narciso Dawkins, Radiology Procedures XR CHEST 1 VW COVID XR CHEST 1 VW DO [address] [facility]. [address] [place] [address] Reason for Visit Reason Comments Shortness of Breath LEG SWELLING Auth/Cert Status Reason Specialty Diagnoses / Referred By Referred To Procedures Contact Contact Emergency Medicine Ad[facility] Em ergency Dept [address] [facility] [place] [address] Fax: Encounter Details Date Type Department Care Team Description 10/15/2019 Emergency ADC-Emergency Narciso Dawkins DO Shortness of breath (Primary Dx); Department [address] [place] [address]. Uncontrolled hypertension; [address] [place] [address] [address] Chronic obstructive pulmonary disease, u [place] [address] [place], [place] [id number] Allergies Active Allergy Reactions Severity Noted Date Comments Azithromycin Swelling High 08/11/2018 Metoprolol Other - See comments 07/11/2018 Lowers heart rate too low documented as of this encounter (statuses as of 10/15/2019) Medications Medication Sig Dispensed Refills Start Date End Date Status nitroglycerin Place 1 Tab 30 Tab 30 09/18/2013 Act warren (NITROSTAT) 0.4 mg under the tongue sublingual tablet every 5 (five) minutes as needed for Chest pain. albuterol 90 Inhale 2 Puffs 8.5 g 3 07/18/2019 A ctive mcg/actuation every 6 (six) inhalerIndications: hours as needed SOB (shortness of for Wheezing or breath) on exertion Shortness of Breath. fluticasone Inhale 1 Puff 2 1 Each 11 07/18/2019 A ctive propion-salmeterol (two) times (AIRDUO RESPICLICK) daily. 113-14 mcg/actuation AePBIndications: Dyspnea on exertion, Cigarette nicotine dependence without complication, Sleep-disordered breathing lisinopril 20 mg Take 2 tablets 180 tablet 0 07/18/20192019 Active tabletIndications: by mouth daily Chest pain, for 90 days. unspecified type omeprazole 40 mg Take 1 capsule 90 capsule 0 07/18/20192019 Active capsuleIndications: by mouth daily Chest pain, for 90 days. unspecified type isosorbide mononitrate Take 1 tablet by 90 tablet 0 07/18/2019 10/16/2019 Active 60 mg 24 hr mouth every tabletIndications: morning for 90 Other chest pain, days. Coronary artery disease involving makah coronary artery of makah heart without angina pectoris, Essential hypertension carvediloL 6.25 mg Take 1 tablet by 180 tablet 0 07/18/2019 Active tabletIndications: mouth 2 (two) Chest pain, times daily with unspecified type meals for 90 days. aspirin 81 mg chewable Take 1 tablet by 30 tablet 2 07/19/2019 10/17/2019 Active tabletIndications: mouth daily with Chest pain, breakfast for 90 unspecified type days. furosemide 40 mg Take 0.5 tablets 45 tablet 0 07/19/201910/16 Active tabletIndications: by mouth daily Chest pain, [...] as of this encounter (statuses as of 10/15/2019) Active Problems Problem Noted Date Morbid obesity with body mass index of 40.0-49.9 07/17 Nonobstructive atherosclerosis of coronary artery 02/2018 Essential hypertension 12/07/2013 HLD (hyperlipidemia) 12/07/2013 Borderline diabetes mellitus 12/07/2013 Obesity (BMI 30-39.9) 12/07/2013 Tobacco abuse 12/07/2013 Atypical chest pain 11/20/2013 documented as of this encounter (statuses as of 10/15/2019) Immunizations Name Administration Dates Next Due Influenza Virus Vaccine (3+ yrs) 09/19/2013 Influenza Virus Vaccine Quad .5 mL IM 04/20/2019 6+ MO Pneumococcal Polysaccharide, PPSV23 04/20/2019, 09/19/2013 (PNEUMOVAX) Tdap 04/20/2019 Zoster Vaccine Recombinant 04/20/2019 Zoster(Zostavax)(Shingles) 04/20/2019 (Deferred: Immunizatio ns Up to Date) documented as of this [...] Sign Reading Time Taken Comments Blood Pressure 167/103 10/15/2019 10:00 AM CDT Pulse 87 10/15/2019 10:00 AM CDT Temperature 36.6 C (97.9 F) 10/15/2019 8:36 AM CDT Respiratory Rate 17 10/15/2019 10:00 AM CDT Oxygen Saturation 99% 10/15/2019 10:00 AM CDT Inhaled Oxygen Concentration - - Weight 117.9 kg (260 lb) 10/15/2019 8:36 AM CDT Height - - Body Mass Index 41.97 08/16/2019 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 Return to the emergency department if symptoms worsen as documented in the discharge instructions. AttachmentsThe following attachments cannot be sent through Care Everywhere.High Blood Pressure, Controlling (Irish)Chronic Obstructive Pulmonary Disease, Medicines for (Irish)documented in this encounter Plan of Treatment Date Type Specialty Care Team Description 10/25/2019 Telemedicine Visit Pulmonary Disease Anthony Funes DO [address] [place] [address] 02/18/2020 Office Visit Cardiology Eunice Chang M D [address] [address] Name Type Priority Associated Diagnoses Date/Ti me XR CHEST 1 VW COVID IMAGING Routine Shortness of breath 0 10/15/2019 9:02 AM CDT Health Maintenance Due Date Last Done Comments COLONOSCOPY 09/07/2015 Zoster Recombinant Vaccine (SHINGRIX) (2 06/15/2019 019 of 2) DTaP,Tdap,and Td Vaccines (2 - Td) 04/20/2029 04/20/2019 INFLUENZA VACCINE Completed 04/20/2019, 09/19/2013 PNEUMOCOCCAL 0-64 YEARS COMBINED SERIES Completed 04/20/20 19, 09/19/2013 documented as of this encounter Procedures Procedure Name Priority Date/Time Associated Comments Diagnosis CORONAVIRUS COVID-19 STAT 10/15/2019 9:04 Shortness of theresa ath Results for this TESTING AM CDT procedure are i n the results section. URINALYSIS STAT 10/15/2019 9:04 Shortness of breath Resu lts for this AM CDT procedure are i n the results section. XR CHEST 1 VW COVID Routine 10/15/2019 9:02 Shortness of eugenia th AM CDT Procedure Note - [facility], Radia nt Results Inft User - 10/15/2019 9:26 AM CDT EXAM: XR CHEST 1 VW COVID HISTORY: 54 years-old; Male; shortness of breath COMPARISON: 07/17/2019 FINDINGS: Lungs/Pleura: The lungs are clear with no focal consolidation. There is no pleural effusion or pneumoth orax. Heart/Mediastinum: The cardi omediastinal silhouette is normal. No acute osseous structure a bnormality. IMPRESSION No acute intrathoracic abnor mality, specifically no detectable radiographic findings to suggest COVID-19 pneumonia. Disclaimer: Generally, the f indings on chest imaging in COVID-19 are not specific, and overlap with o ther infections, including influenza, H1N1, SARS and MERS. According to the Centers for Disease Control (CDC) and recent statement of the [place] [employer], viral testing remains the only specific method of diagnosis. Confirm ation with the viral test is required, even if radiologic findings are sugg estive of COVID-[address]. Preliminary Report Dictated by Resident: Reno Argueta CBC WITH DIFFERENTIAL STAT 10/15/2019 8:53 AM Shortness of Results for this CDT breath procedure are i n the results section. N-TERMINAL PRO-BNP STAT 10/15/2019 8:53 AM Shortness of Re sults for this CDT breath procedure are i n the results section. D-DIMER STAT 10/15/2019 8:53 AM Shortness of Results for this CDT breath procedure are i n the results section. CBC WITH DIFFERENTIAL Routine 10/15/2019 8:53 AM Shortness of Results for this CDT breath procedure are i n the results section. COMP. METABOLIC PANEL STAT 10/15/2019 8:53 AM Shortness of Results for this (81586) CDT breath procedure are i n the results section. TROPONIN I STAT 10/15/2019 8:53 AM Shortness of Results for this CDT breath procedure are i n the results section. EKG-12 LEAD Routine 10/15/2019 8:38 AM CDT documented in this encounter Results CORONAVIRUS COVID-19 TESTING (10/15/2019 9:04 AM CDT) Pathologist Sig nature SARS-CoV-2 Not Detected Not Detected [facility] Specimen Swab - NASOPHARYNGEAL SWAB Narrative Performed At ID NOW COVID-19 Assay is an isothermal nucleic [facility] acid amplification test intended for the qualitative detection of nucleic acid from SARS-CoV-2 viral RNA in nasopharyngeal (MUTUAL FUND MANAGER) specimens. It is used under Emergency Use Authorization (EUA) by FDA. The limit of detection (LOD) of the assay is 125 Genome Equivalents/mL. A positive result is indicative of the presence of SARS-CoV-2 RNA. Clinical correlation with patient history and other diagnostic information is necessary to determine patient infection status. A negative (Not Detected) result does not preclude SARS-CoV-2 infection. Clinical correlation with patient history and other diagnostic information should be used in patient management decisions. Invalid: Please collect a new specimen for repeat patient testing if clinically indicated. Performing Organization Address City/[facility] Hospital[facility] Phone Number [facility] CLIA: [id number], [address] [place], [place] [address] URINALYSIS (10/15/2019 9:04 AM CDT) [facility] Epic Playground APPEARANCE Clear Clear [facility] COLOR Yellow Yellow [facility] PH 7.0 4.8 - 8.0 [facility] SP GRAVITY 1.009 1.003 - 1.030 [facility] GLU U QUAL Normal Normal [facility] BLOOD Negative Negative [facility] KETONES Negative Negative [facility] PROTEIN 30 mg/dL (A) Negative [facility] UROBILIN Normal Normal [facility] BILIRUBIN Negative Negative [facility] NITRITE Negative Negative [facility] LEUK GILMAR Negative Negative [facility] RBC/HPF 2 0 - 3 HPF [facility] WBC/HPF 0 0 - 5 HPF [facility] BACTERIA Negative Negative [facility] Specimen Urine - URINE, CLEAN CATCH Performing Organization Address City/[facility]/Zipcode Phone Number [facility] CLIA: [id number], [address] [place], [place] [address] CBC WITH DIFFERENTIAL (10/15/2019 8:53 AM CDT) [facility] WBC 9.01 4.20 - 10.70 [facility] 10*3/L [facility] RBC 5.09 4.26 - 5.52 [facility] 10*6/L [facility] HGB 14.7 12.2 - 16.4 [facility] g/dL [facility] HCT 44.6 38.4 - 49.3 % [facility] MCV 87.6 81.7 - 95.6 fL [facility] MCH 28.9 26.1 - 32.7 pg [facility] MCHC 33.0 31.2 - 35.0 [facility] g/dL [facility] RDW-SD 50.9 38.5 - 51.6 fL [facility] RDW-CV 15.9 (H) 12.1 - 15.4 % [facility] PLT 267 150 - 328 [facility] 10*3/L [facility] MPV 10.8 9.8 - 13.0 fL [facility] NRBC/100 WBC 0.0 0.0 - 10.0 /100 [facility] WBCs [facility] NRBC x10^3 <0.01 10*3/L [facility] GRAN MAT (NEUT) % 70.3 % [facility] IMM GRAN % 0.30 % [facility] LYMPH % 19.8 % [facility] MONO % 7.0 % [facility] EOS % 2.3 % [facility] BASO % 0.3 % [facility] GRAN MAT x10^3(ANC) 6.33 1.99 - 6.95 [facility] 10*3/uL [facility] IMM GRAN x10^3 0.03 0.00 - 0.06 [facility] 10*3/uL [facility] LYMPH x10^3 1.78 1.09 - 3.23 [facility] 10*3/uL [facility] MONO x10^3 0.63 0.36 - 1.02 [facility] 10*3/uL [facility] EOS x10^3 0.21 0.06 - 0.53 [facility] 10*3/uL [facility] BASO x10^3 0.03 0.01 - 0.09 [facility] 10*3/uL [facility] Specimen Blood - VENOUS Performing Organization Address City/State/Zipcode Phone Number [facility] CLIA: [id number], [address] [place], [place] [address] D-DIMER (10/15/2019 8:53 AM CDT) Pathologist Sig nature D-DIMER <0.27 <0.41 g/mL (FEU) [facility] Specimen Blood - VENOUS Narrative Performed At This test may be used in conjunction with a [facility] clinical pretest probability (PTP) assessment model to exclude venous thromboembolism (VTE) in patients suspected of deep venous thrombosis (DVT) and pulmonary embolism (PE) A D-Dimer value less than 0.50 g/ml (FEU) has a negative predicative value of 96 to 100% (95% CI)and 97 to 100% (95% CI) as an aid in the diagnosis of deep vein thrombosis (DVT) and pulmonary embolism when there is low or moderate pretest probability of PE or DVT. D-Dimer values are expressed in initial fibrinogen equivalent units (FEU)" The assay results should be used with other information, including the clinical context, in forming a diagnosis. Performing Organization Address [facility] Phone Number [facility] CLIA: [id number], [address] [place] [address] TROPONIN I (10/15/2019 8:53 AM CDT) Pathologist Sig nature TROPONIN I 0.013 <=0.034 ng/mL [facility] Specimen Blood - VENOUS Narrative Performed At Equal or Less than 0.034 ng/ml---Normal [facility] Note: Cardiac troponin begins to rise 3-4 hours after the onset of ischemia. Repeat in 4-6 hours if the sample was drawn within 3-4 hours of the onset of the symptom and found normal. Between 0.035 and 0.120 ng/mL--- Borderline. Questionable myocardial injury or necros is Note: Serial measurement may be necessary to [...] patient's use of biotin. Performing Organization Address [facility] Phone Number [facility] CLIA: [id number], [address] [place] [address] N-TERMINAL PRO-BNP (10/15/2019 8:53 AM CDT) Pathologist Sig nature NT-proBNP 52 <=125 pg/mL [facility] Specimen Blood - VENOUS Narrative Performed At Biotin has been reported to cause a negative [facility] bias, interpret results relative to patient's use of biotin. Performing Organization Address City/State/Zipcode Phone Number [facility] CLIA: [id number], [address] [place], [place] [address] COMP. METABOLIC PANEL (07180) (10/15/2019 8:53 AM CDT) NA 139 135 - 145 [facility] mmol/L [facility] K 4.4 3.5 - 5.0 [facility] mmol/L [facility] CL 100 98 - 108 mmol/L [facility] CO2 TOTAL 30 23 - 31 mmol/L [facility] AGAP 9 2 - 16 [facility] BUN 16 7 - 23 mg/dL [facility] GLUCOSE 119 (H) 70 - 110 mg/dL [facility] CREATININE 0.57 (L) 0.60 - 1.25 [facility] mg/dL [facility] TOTAL BILI 0.4 0.1 - 1.1 mg/dL [facility] CALCIUM 9.5 8.6 - 10.6 [facility] mg/dL [facility] T PROTEIN 7.2 6.3 - 8.2 g/dL [facility] ALBUMIN 4.5 3.5 - 5.0 g/dL [facility] ALK PHOS 45 34 - 122 U/L [facility] ALTv 60 (H) 5 - 50 U/L [facility] AST(SGOT) 37 13 - 40 U/L [facility] eGFR Calculation 149.0 mL/min/1.73m2 [facility] ([facility] [place]) eGFR Calculation 180.5 mL/min/1.73m2 [facility] () [facility] Specimen Blood - VENOUS Narrative Performed At Association of Glomerular Filtration Rate (GFR) [facility] and Staging of Kidney Disease* [...] tests). Performing Organization Address City/State/Zipcode Phone Number [facility] CLIA: [id number], [address] [place], [place] [address] documented in this encounter Visit Diagnoses Diagnosis Shortness of breath - Primary Uncontrolled hypertension Unspecified essential hypertension Chronic obstructive pulmonary disease, u nspecified COPD type documented in this encounter Administered Medications Medication Order MAR Action Action Date Dose Rate Site albuterol-ipratropium (COMBIVENT Given 10/15/2019 9:11 AM CDT 2 Puffs RESPIMAT) 20-100 mcg/actuation inhaler 2 Puff 2 Puff, Inhalation, Q6H, First dose on Tue10/15/19 at 1200, Until Discontinued, Routine, Is this order for a patient with suspected or confirmed COVID-19 infection? Yes bumetanide (BUMEX) injection 1.25 mg Given 10/15/2019 9:06 AM CDT 1.25 mg 1.25 mg, Slow IV Push, Q24H, First dose on Tue10/15/19 at 0945, Until Discontinued, Routine documented in this encounter Insurance Payer Benefit Plan Subscriber ID Effective Phone Address Typ e / Group Dates [place] [place] [id number] 2018-Pres [phone] [facility] [address] [place] [address] [place] [address] documented as of this encounter
[2019-10-18] MEDS ORDERED: NA CHLORIDE 0.9% 500 ML ONE (20:31)
[2019-10-18 20:35] LABS: Absolute Lymphocytes (CBC) 1.5 K/uL (0.7-4.9); Basophils % 1.1 % (0-1.3); Hematocrit 44.4 % (39.6-49.0); Lymphocytes % 19.2 % (15.3-44.8); MPV 9.2 fL (7.6-11.3); RBC Red Blood Cell Count 4.99 M/uL (4.33-5.43)
[2019-10-18 20:51] LABS: BUN Blood Urea Nitrogen 15 mg/dL (7-18); Bicarbonate 27 mmol/L (21-32); Glucose Level 273 mg/dL (74-106); Sodium Level 141 mmol/L (136-145); Troponin (Emerg Dept Use Only) < 0.02 ng/mL (0.0-0.045)
--- NOTE | 2019-10-18 21:15 | ER ---
Nurse's Notes [facility] Name: Juan Miguel Langston Age: 54 yrs Sex: Male : 1965 Arrival Date: 10/18/2019 Time: 19:56 Bed 14 Private MD: Diagnosis: Type 2 diabetes mellitus;Chronic obstructive pulmonary disease, unspecified;Obesity, unspecified Presentation: 10/17 19:59 Chief complaint: Patient states: Dizziness, MATHEW, not feeling well, off balanced, ll1 altered, dozing off easily since 7 pm. EMS states: Blood sugar 216. No fever. HR 100's. Coronavirus screen: Proceed with normal triage. Patient denies a cough. Patient reports shortness of breath or difficulty breathing. Patient denies measured and/or subjective temperature greater than 100.4F prior to today's visit. Patient denies travel on a cruise ship or to a country the [facility] [place] 2[place] currently lists as an affected area. Patient denies contact with known and/or suspected case of COVID-19. Ebola Screen: Patient denies travel to an Ebola-affected area in the 21 days before illness onset. Initial Sepsis Screen: Does the patient meet any 2 criteria? HR > 90 bpm. Risk Assessment: Do you want to hurt yourself or someone else? Patient reports no desire to harm self or others. Onset of symptoms was October 18, 2019. 19:59 Method Of Arrival: EMS ll1 19:59 Acuity: DESTINY 3 ll1 20:17 Initial Sepsis Screen: Does the patient have a suspected source of infection? No. vc Patient's initial sepsis screen is negative. Triage Assessment: 20:17 General: Appears in no apparent distress. Behavior is anxious. Pain: Denies pain. vc Historical: - Allergies: 20:03 Azithromycin; ll1 20:03 Metoprolol Tartrate; ll1 20:03 Beta-Blockers (Beta-Adrenergic Bloc; ll1 - Home Meds: 20:16 aspirin 325 mg oral tab [Active]; clopidogrel 75 mg oral tab 1 tab once daily [Active]; vc atorvastatin 40 mg oral tab 1 tab nightly [Active]; Livalo 4 mg oral tab 1 tab nightly [Active]; metformin 500 mg Oral tab 1 tab 2 times per day [Active]; lisinopril 40 mg oral tab once daily [Active]; Lasix 20 mg Oral tab once daily [Active]; isosorbide 60 mg ER daily [Active]; tramadol 50 mg Oral tab 1 tab every 6 hours for Pain [Active]; omeprazole 40 mg Oral cpDR 1 cap once daily [Active]; ProAir HFA 90 mcg/actuation inhalation HFAA 2 puffs every 6 hours [Active]; Combivent 18-103 mcg/actuation Inhl aero 2 puffs 4 times per day [Active]; - PMHx: 20:03 Angina; COPD; High Cholesterol; Myocardial infarction; Hypertension; Diabetes - NIDDM; ll1 Sleep Apnea; - PSHx: 20:03 None; ll1 - Immunization history:: Adult Immunizations up to date. - Social history:: Smoking status: Patient reports the use of cigarette tobacco products, smokes one-half pack cigarettes per day, Patient uses trying to quit smoking cigarettes., Patient/guardian denies using alcohol, street drugs. Screenin:05 Abuse screen: Denies threats or abuse. Nutritional screening: No deficits noted. ll1 Tuberculosis screening: No symptoms or risk factors identified. Fall Risk IV access (20 points). Gait- Impaired (20 pts.). Mental Status- Oriented to own ability (0 pts). Total [place] Fall Scale indicates Low Risk Score (25-44 pts). Assessment: 20:42 General: Appears in no apparent distress. uncomfortable, Behavior is cooperative, vc agitated. Pain: Denies pain. Neuro: Level of Consciousness is awake, alert, obeys commands, Oriented to person, place, time, situation, Reports weakness. Cardiovascular: Clubbing of nail beds is present Patient's skin is warm and dry. Respiratory: Respiratory effort is even, unlabored, Respiratory pattern is regular, symmetrical. GI: No signs and/or symptoms were reported involving the gastrointestinal system. : No signs and/or symptoms were reported regarding the genitourinary system. EENT: No signs and/or symptoms were reported regarding the EENT system. Derm: Bruising that is wendie arms. Musculoskeletal: No deficits noted. 21:20 Reassessment: Patient appears in no apparent distress at this time. Patient and/or vc family updated on plan of care and expected duration. Pain level reassessed. Patient denies pain at this time. Vital Signs: 19:59 BP 126 / 80; Pulse 99; Resp 20; Temp 98.5; Pulse Ox 98% on R/A; Pain 10/10; ll1 21:15 BP 133 / 69 Supine; Pulse 90; vc 21:18 BP 116 / 66; Pulse 85; vc 21:20 BP 129 / 67; Pulse 92; vc ED Course: 19:56 Patient arrived in ED. cf2 19:56 Lenard Rosario MD is Attending Physician. rambo 20:02 Triage completed. ll1 20:04 Arm band placed on Patient placed in an exam room, on a stretcher. ll1 20:06 Patient has correct armband on for positive identification. Bed in low position. Call ll1 light in reach. Side rails up X 1. Pulse ox on. NIBP on. 20:07 Julisa Shipley, RN is Primary Nurse. vc 20:25 Inserted saline lock: 20 gauge in right hand, using aseptic technique. Blood collected. vc 20:36 Chem 7 Sent. vc 20:36 CBC with Diff Sent. vc 20:36 Troponin (emerg Dept Use Only) Sent. vc 21:22 No provider procedures requiring assistance completed. vc 21:36 IV discontinued, intact, bleeding controlled, No redness/swelling at site. Pressure vc dressing applied. Administered Medications: 20:40 Drug: NS 0.9% 500 ml Route: IV; Rate: bolus; Site: right hand; vc 21:10 Follow up: IV Status: Completed infusion; IV Intake: 500ml vc Intake: 21:10 IV: 500ml; Total: 500ml. vc Outcome: 21:14 Discharge ordered by . rambo 21:35 Discharged to home ambulatory. vc 21:35 Condition: good 21:35 Discharge instructions given to patient, Instructed on discharge instructions, follow up and referral plans. Demonstrated understanding of instructions, follow-up care. 21:36 Patient left the ED. vc Signatures: Lenard Rosario MD MD cha Frazier, Celesta cf2 Julisa Shipley, RN RN Sanjuana Park RN RN 1
--- NOTE | 2019-10-18 21:15 | EDPHYS ---
Physician Documentation [facility] Name: Juan Miguel Langston Age: 54 yrs Sex: Male : 1965 Arrival Date: 10/18/2019 Time: 19:56 Bed 14 Private MD: ED Physician Lenard Rosario HPI: 10/17 20:08 This 54 yrs old Male presents to ER via EMS with complaints of Low Blood rambo Sugar. 20:08 The patient or guardian reports hyperglycemia. Onset: The symptoms/episode rambo began/occurred just prior to arrival. Associated signs and symptoms: Pertinent positives: polyuria. Current symptoms: In the emergency department the patient's symptoms have improved, mildly. The patient has experienced similar episodes in the past. Historical: - Allergies: 20:03 Azithromycin; ll1 20:03 Metoprolol Tartrate; ll1 20:03 Beta-Blockers (Beta-Adrenergic Bloc; ll1 - Home Meds: 20:16 aspirin 325 mg oral tab [Active]; clopidogrel 75 mg oral tab 1 tab once daily [Active]; vc atorvastatin 40 mg oral tab 1 tab nightly [Active]; Livalo 4 mg oral tab 1 tab nightly [Active]; metformin 500 mg Oral tab 1 tab 2 times per day [Active]; lisinopril 40 mg oral tab once daily [Active]; Lasix 20 mg Oral tab once daily [Active]; isosorbide 60 mg ER daily [Active]; tramadol 50 mg Oral tab 1 tab every 6 hours for Pain [Active]; omeprazole 40 mg Oral cpDR 1 cap once daily [Active]; ProAir HFA 90 mcg/actuation inhalation HFAA 2 puffs every 6 hours [Active]; Combivent 18-103 mcg/actuation Inhl aero 2 puffs 4 times per day [Active]; - PMHx: 20:03 Angina; COPD; High Cholesterol; Myocardial infarction; Hypertension; Diabetes - NIDDM; ll1 Sleep Apnea; - PSHx: 20:03 None; ll1 - Immunization history:: Adult Immunizations up to date. - Social history:: Smoking status: Patient reports the use of cigarette tobacco products, smokes one-half pack cigarettes per day, Patient uses trying to quit smoking cigarettes., Patient/guardian denies using alcohol, street drugs. ROS: 20:09 Constitutional: Negative for fever, chills, and weight loss, Eyes: Negative for injury, rambo pain, redness, and discharge, ENT: Negative for injury, pain, and discharge, Neck: Negative for injury, pain, and swelling, Cardiovascular: Negative for chest pain, palpitations, and edema, Respiratory: Negative for shortness of breath, cough, wheezing, and pleuritic chest pain, Abdomen/GI: Negative for abdominal pain, nausea, vomiting, diarrhea, and constipation, Back: Negative for injury and pain, : Negative for injury, bleeding, discharge, and swelling, MS/Extremity: Negative for injury and deformity, Skin: Negative for injury, rash, and discoloration, Psych: Negative for depression, anxiety, suicide ideation, homicidal ideation, and hallucinations, Allergy/Immunology: Negative for hives, rash, and allergies, Endocrine: Negative for neck swelling, polydipsia, polyuria, polyphagia, and marked weight changes, Hematologic/Lymphatic: Negative for swollen nodes, abnormal bleeding, and unusual bruising. 20:09 Neuro: Positive for dizziness, weakness. Exam: 20:09 Constitutional: This is a well developed, well nourished patient who is awake, alert, rambo and in no acute distress. Head/Face: Normocephalic, atraumatic. Eyes: Pupils equal round and reactive to light, extra-ocular motions intact. Lids and lashes normal. Conjunctiva and sclera are non-icteric and not injected. Cornea within normal limits. Periorbital areas with no swelling, redness, or edema. ENT: Nares patent. No nasal discharge, no septal abnormalities noted. Tympanic membranes are normal and external auditory canals are clear. Oropharynx with no redness, swelling, or masses, exudates, or evidence of obstruction, uvula midline. Mucous membranes moist. Neck: Trachea midline, no thyromegaly or masses palpated, and no cervical lymphadenopathy. Supple, full range of motion without nuchal rigidity, or vertebral point tenderness. No Meningismus. Chest/axilla: Normal chest wall appearance and motion. Nontender with no deformity. No lesions are appreciated. Cardiovascular: Regular rate and rhythm with a normal S1 and S2. No gallops, murmurs, or rubs. Normal PMI, no JVD. No pulse deficits. Respiratory: Lungs have equal breath sounds bilaterally, clear to auscultation and percussion. No rales, rhonchi or wheezes noted. No increased work of breathing, no retractions or nasal flaring. Abdomen/GI: Soft, non-tender, with normal bowel sounds. No distension or tympany. No guarding or rebound. No evidence of tenderness throughout. Back: No spinal tenderness. No costovertebral tenderness. Full range of motion. Male : Normal genitalia with no discharge or lesions. Skin: Warm, dry with normal turgor. Normal color with no rashes, no lesions, and no evidence of cellulitis. MS/ Extremity: Pulses equal, no cyanosis. Neurovascular intact. Full, normal range of motion. Neuro: Awake and alert, GCS 15, oriented to person, place, time, and situation. Cranial nerves II-XII grossly intact. Motor strength 5/5 in all extremities. Sensory grossly intact. Cerebellar exam normal. Normal gait. Psych: Awake, alert, with orientation to person, place and time. Behavior, mood, and affect are within normal limits. 20:10 Cardiovascular: Rate: normal, Rhythm: regular, Pulses: Pulses are 4+ in bilateral rambo radial, brachial, femoral, popliteal, posterior tibial and and dorsalis pedis arteries.. Heart sounds: normal, Edema: is not appreciated, JVD: is not appreciated. 20:10 Musculoskeletal/extremity: DVT Exam: No signs of deep vein thrombosis. no pain, no swelling, no tenderness, negative Homans' sign noted on exam, no appreciated bluish discoloration, no erythema, no increased warmth. 21:28 ECG was reviewed by the Attending Physician. [facility] Vital Signs: 19:59 BP 126 / 80; Pulse 99; Resp 20; Temp 98.5; Pulse Ox 98% on R/A; Pain 10/10; ll1 21:15 BP 133 / 69 Supine; Pulse 90; vc 21:18 BP 116 / 66; Pulse 85; vc 21:20 BP 129 / 67; Pulse 92; vc MDM: 19:57 Patient medically screened. [facility] 20:11 Data reviewed: vital signs, nurses notes, lab test result(s), EKG. ED course: pt is rambo homless in town, in nheat all day, decreased po intake, ate large piece of cake, got woozy, blood glucose 260mg/dl, no cp or sob. 21:25 Differential diagnosis: diabetes insipidus, hyperglycemia. ED course: pt much improved, rambo ada diet explaine, smoking and weight loss addressed. also encouraged patient to find a mcfp and more suitable living arrangement. he understood and agreed to try.. 10/17 20:08 Order name: CBC with Diff; Complete Time: 21:12 [facility] 10/17 20:08 Order name: Chem 7; Complete Time: 21:12 [facility] 10/17 20:08 Order name: EKG; Complete Time: 20:08 [facility] 10/17 20:08 Order name: EKG - Nurse/Tech; Complete Time: 20:36 [facility] 10/17 20:08 Order name: Troponin (emerg Dept Use Only); Complete Time: 21:12 [facility] 10/17 21:13 Order name: Orthostatics; Complete Time: 21:35 [facility] EC:28 Rate is 80 beats/min. Rhythm is regular. QRS Likely is Normal. LA interval is normal. QRS rambo interval is normal. QT interval is normal. No Q waves. T waves are Normal. Clinical impression: NSR w/ Non-specific ST/T Changes, Abnormal EKG without significant change, and No change from prior ECG. Administered Medications: 20:40 Drug: NS 0.9% 500 ml Route: IV; Rate: bolus; Site: right hand; vc 21:10 Follow up: IV Status: Completed infusion; IV Intake: 500ml vc Disposition: 10/18/19 21:14 Discharged to Home. Impression: Type 2 diabetes mellitus, Chronic obstructive pulmonary disease, unspecified, Obesity, unspecified. - Condition is Stable. - Discharge Instructions: Chronic Bronchitis, Type 2 Diabetes Mellitus, Diagnosis, Adult, Obesity, Adult, Tobacco Use Disorder, Diabetes Mellitus and Food, Type 2 Diabetes Mellitus, Diagnosis, Adult, [id number]. - Medication Reconciliation Form, Thank You Letter, Antibiotic Education, Prescription Opioid Use form. - Follow up: Private Physician; When: 2 - 3 days; Reason: Recheck today's complaints, Continuance of care, Re-evaluation by your physician. - Problem is new. - Symptoms have improved. Signatures: Dispatcher [employer] EDMS Lenard Rosario MD MD cha Calcote, Vanessa RN RN Sanjuana Park RN RN ll1 Corrections: (The following items were deleted from the chart) 21:36 21:14 10/18/2019 21:14 Discharged to Home. Impression: Type 2 diabetes mellitus; vc Chronic obstructive pulmonary disease, unspecified; Obesity, unspecified. Condition is Stable. Forms are Medication Reconciliation Form, Thank You Letter, Antibiotic Education, Prescription Opioid Use. Follow up: Private Physician; When: 2 - 3 days; Reason: Recheck today's complaints, Continuance of care, Re-evaluation by your physician. Problem is new. Symptoms have improved. rambo
[2019-10-18 21:59] VITALS: TEMP 98.5; O2SAT 98
[2019-10-18 22:16] VITALS: BP 129/67
--- NOTE | 2019-10-19 12:04 | EKG ---
Test Date: 2019-10-18 Test Time: 20:29:37 [employer]: FAM MEASUREMENT RESULTS: Intervals: Rate: 89 NH: 136 QRSD: 102 QT: 358 QTc: 435 [place]: P: 61 NH: 136 QRS: 54 T: 251 INTERPRETIVE STATEMENTS: Normal sinus rhythm ST & T wave abnormality, consider lateral ischemia Abnormal ECG Compared to ECG 10/09/2019 17:58:12 No significant changes Electronically Signed On 10-19-19 12:02:50 CDT by Nazario Anderson
== END 2019-10-18 21:36 | disposition home or self-care (01) ==
LOC: ER 19:55
DX: E11.9 Type 2 diabetes mellitus without complications (principal); J44.9 Chronic obstructive pulmonary disease, unspecified; E66.9 Obesity, unspecified; I10 Essential (primary) hypertension; F17.210 Nicotine dependence, cigarettes, uncomplicated; E78.00 Pure hypercholesterolemia, unspecified; Z79.82 Long term (current) use of aspirin; Z88.1 Allergy status to other antibiotic agents; Z88.8 Allergy status to other drugs, medicaments and biological substances
CPT/HCPCS: 36415; 80048; 84484; 85025; 93005; 99284; J7040

== ENCOUNTER 2019-11-03 09:28 | Emergency (ER) | payer SELFPAY ==
--- OUTSIDE RECORDS SUMMARY | 2019-11-03 09:30 | XMS REPORT ---
:1965 Author Organization [facility] t Address Formerly [facility], [id number] [place] [address] [place] [id number] Care Team Providers Name Role Phone Unavailable Unavailable Unavailable Problems This patient has no known problems. Allergies, Adverse Reactions, Alerts This patient has no known allergies or adverse reactions. Medications This patient has no known medications.
--- OUTSIDE RECORDS SUMMARY | 2019-11-03 09:39 | XMS REPORT | Summary of Care ---
:1965 Author Organization [facility] Address [address] [place] [address] Care Team Providers Name Role Phone JOSEFINA Lucero Primary Care Provider Reason for Visit Reason Comments DYSPNEA (Routine) Status Reason Specialty Diagnoses / Referred By Referred To Procedures Contact Contact Closed Pulmonary Disease Diagnoses SOB (shortness of breath) on exertion Ekta Lucero FNP Procedures CONSULT/REFERRAL PULMONARY [address] [place] [address] Encounter Details Date Type Department Care Team Description 10/25/2019 Telemedicine Visit [facility] ADC Mayela Funes DO Dyspnea on exertion (Primary Dx); Pul[facility] [address] [place] [address] Cigarette nicotine dependenc e without complication; [address] [place] [address] [facility]. [facility] Sleep-disordered breathing [address] [place] [address] [phone] Allergies Active Allergy Reactions Severity Noted Date Comments Azithromycin Swelling High 08/11/2018 Metoprolol Other - See comments 07/11/2018 Lowers heart rate too low documented as of this encounter (statuses as of 10/25/2019) Medications Medication Sig Dispensed Refills Start Date End Date Status nitroglycerin Place 1 Tab under 30 Tab 30 09/18/2013 Active (NITROSTAT) 0.4 mg the tongue every sublingual tablet 5 (five) minutes as needed for Chest pain. albuterol 90 Inhale 2 Puffs 8.5 g 3 07/18/2019 A ctive mcg/actuation every 6 (six) inhalerIndications: SOB hours as needed (shortness of breath) for Wheezing or on exertion Shortness of Breath. fluticasone Inhale 1 Puff 2 1 Each 11 07/18/2019 A ctive propion-salmeterol (two) times (AIRDUO RESPICLICK) daily. 113-14 mcg/actuation AePBIndications: Dyspnea on exertion, Cigarette nicotine dependence without complication, Sleep-disordered breathing Pitavastatin (LIVALO) 4 Take 1 tablet by 90 tablet 3 0 Active mg TabIndications: mouth daily. Mixed hyperlipidemia clopidogreL (PLAVIX) 75 Take 1 tablet by 90 tablet 3 0 Active mg tabletIndications: mouth daily. Nonobstructive atherosclerosis of coronary artery metformin ER 500 mg 24 Take 1 tablet by 60 tablet 5 07/19/2019 Active hr tabletIndications: mouth 2 (two) Borderline diabetes times daily with mellitus meals. traMADol 50 mg Take 1 tablet by 28 tablet 0 08/16/2019 Active tabletIndications: mouth every 6 Bilateral leg and foot (six) hours as pain needed for Pain (scale 4-6). budesonide-formoteroL Inhale 2 Puffs 2 10.2 g 11 10/25/2019 Active (SYMBICORT) 160-4.5 (two) times mcg/actuation daily. inhalerIndications: Dyspnea on exertion, Cigarette nicotine dependence without complication, Sleep-disordered breathing documented as of this encounter (statuses as of 10/25/2019) Active Problems Problem Noted Date Morbid obesity with body mass index of 40.0-49.9 07/17 Nonobstructive atherosclerosis of coronary artery 02/2018 Essential hypertension 12/07/2013 HLD (hyperlipidemia) 12/07/2013 Borderline diabetes mellitus 12/07/2013 Obesity (BMI 30-39.9) 12/07/2013 Tobacco abuse 12/07/2013 Atypical chest pain 11/20/2013 documented as of this encounter (statuses as of 10/25/2019) Immunizations Name Administration Dates Next Due Influenza [...] Signs Not on filedocumented in this encounter Progress Notes Mayela Funes DO - 10/25/2019 11:40 AM CDT [facility] Interventional Pulmonology Telemedicine Note Verbal consent obtained from Patient: Juan Miguel Langston for telehealth services provided below. Communication with patient was conducted via Telephone due to patient unable to obtain video call option. Location of Patient: Home Location of Provider: Clinic Date of Service: 10/25/2019 Chief Complaint: Follow up for COPD History of Present Illness: Juan Miguel Langston is a 54 year old male here for for follow up. Overall has good days and bad days depending on humidity. Can go about 20 feet or so before he gets short of breath. Improved with rest. Cough is present. Uses Pro Air. Not on Symbicort any more. Patient is still smoking but cutting way down. Past Medical History: has a past medical history of Arthritis, CAD (coronary artery disease), Diabetes mellitus, Heart murmur, HLD (hyperlipidemia), HTN (hypertension), Obesity (BMI 30.0-34.9), Sinus pause, and Tobacco abuse. Past Surgical History: has a past surgical history that includes 50090 - NM RIGHT HEART CATH O2 SATURATION & CARDIAC [...] breath. Cardiovascular: Negative. Gastrointestinal: Negative. Genitourinary: Negative. Musculoskeletal: Negative. Skin: Negative. Neurological: Negative. Psychiatric/Behavioral: Negative. Endocrine: Endocrine negative Physical Examination: A limited physical exam was able to be performed due to the telephone encounter Physical Exam Constitutional: He is oriented to person, place, and time. No distress. Pulmonary/Chest: Effort normal. No respiratory distress. Neurological: He is alert and oriented to person, place, and time. Psychiatric: Mood, memory, affect and judgment normal. Laboratory/Studies: PFT - normal spirometry, lung volumes Assessment & Plan Juan Miguel Langston is a 54 year old male with ICD-10-CM ICD-9-CM 1. Dyspnea on exertion R06.09 786.09 Likely in part cardiac, weight related, etc. Although PFT did not show COPD, does improve with inhalers ? Asthmatic component PLAN: 1. Re-prescribe Symbicort 2. C/w pro Air 3. Avoid high salt food, including canned foods, processed meats, etc 4. Weight loss A total of 15 minutes was spent on the Telephone due to patient unable to obtain video call option with the patient. After visit summary (AVS) documentation will be available through [employer] for this encounter. documented in this encounter Plan of Treatment Date Type Specialty Care Team Description 02/18/2020 Office Visit Cardiology Eunice Chang M D [address] [place] [address] 15 [phone] Health Maintenance Due Date Last Done Comments COLONOSCOPY 09/07/2015 Zoster Recombinant Vaccine (SHINGRIX) (2 06/15/2019 019 of 2) DTaP,Tdap,and Td Vaccines (2 - Td) 04/20/2029 04/20/2019 INFLUENZA VACCINE Completed 04/20/2019, 09/19/2013 PNEUMOCOCCAL 0-64 YEARS COMBINED SERIES Completed 04/20/20 19, 09/19/2013 documented as of this encounter Results Not on filedocumented in this encounter Visit Diagnoses Diagnosis Dyspnea on exertion - Primary Other dyspnea and respiratory abnormalit y Cigarette nicotine dependence without co mplication Tobacco use disorder Sleep-disordered breathing Other sleep disturbances documented in this encounter Insurance Payer Benefit Plan Subscriber ID Effective Phone Address Typ e / Group Dates [place] [place] [id number] 2018-Pres [phone] [facility] [address] [place] [id number] documented as of this encounter
--- OUTSIDE RECORDS SUMMARY | 2019-11-03 09:39 | XMS REPORT | Summary of Care ---
:1965 Author Organization [facility] Address [address] [place] [address] Care Team Providers Name Role Phone JOSEFINA Lucero Primary Care Provider Reason for Visit Reason Comments Refill Request Encounter Details Date Type Department Care Team Description 10/24/2019 Telephone [facility] Ekta Lucero FNP Refill Request [facility] [address] [facility] [address] [place] [address] [place] [address] Allergies Active Allergy Reactions Severity Noted Date Comments Azithromycin Swelling High 08/11/2018 Metoprolol Other - See comments 07/11/2018 Lowers heart rate too low documented as of this encounter (statuses as of 10/26/2019) Medications Medication Sig Dispensed Refills Start Date [...] as pain needed for Pain (scale 4-6). lisinopril 40 mg Take 1 tablet by 30 tablet 5 10/26/2019 Active tabletIndications: mouth daily. Essential hypertension documented as of this encounter (statuses as of 10/26/2019) Active Problems Problem Noted Date Morbid obesity with body mass index of 40.0-49.9 07/17 Nonobstructive atherosclerosis of coronary artery 02/2018 Essential hypertension 12/07/2013 HLD (hyperlipidemia) 12/07/2013 Borderline diabetes mellitus 12/07/2013 Obesity (BMI 30-39.9) 12/07/2013 Tobacco abuse 12/07/2013 Atypical chest pain 11/20/2013 documented as of this encounter (statuses as of 10/26/2019) Immunizations Name Administration Dates Next Due Influenza [...] Visit Cardiology Eunice Chang M D [address] [facility] [address] [place], [place] [address] [phone] 04/25/2020 Office Visit Pulmonary Disease Funes Anastaciawoodrowfrederic [facility] [place] [address] Health Maintenance Due Date Last Done Comments COLONOSCOPY 09/07/2015 Zoster Recombinant Vaccine (SHINGRIX) (2 06/15/2019 019 of 2) DTaP,Tdap,and Td Vaccines (2 - Td) 04/20/2029 04/20/2019 INFLUENZA VACCINE Completed 04/20/2019, 09/19/2013 PNEUMOCOCCAL 0-64 YEARS COMBINED SERIES Completed 04/20/20, 09/19/2013 documented as of this encounter Results Not on filedocumented in this encounter Visit Diagnoses Diagnosis Essential hypertension - Primary Unspecified essential hypertension documented in this encounter Insurance Payer Benefit Plan Subscriber ID Effective Phone Address Typ e / Group Dates [place] [id number] 2018-Pres [phone] [facility] [address] [facility] [address] [place] [address] ROSEANNA CONDON [id number] 2019-Prese [phone] [facility] [address] [place] [address] documented as of this encounter
--- OUTSIDE RECORDS SUMMARY | 2019-11-03 09:40 | XMS REPORT | Summary of Care ---
:1965 Author Organization [facility] Address [address] [place] [address] Care Team Providers Name Role Phone JOSEFINA Lucero Primary Care Provider Encounter Details Date Type Department Care Team Description 11/01/2019 Telemedicine Visit [facility] Marlyn Nic EktaJOSEFINA [address] [place] [address] Excessive daytime sleepiness (Primary Dx ); [facility] [place] Primary SOB (shortness of breath) on exertion [address] [address] Allergies Active Allergy Reactions Severity Noted Date Comments Azithromycin Swelling High 08/11/2018 Metoprolol Other - See comments 07/11/2018 Lowers heart rate too low documented as of this encounter (statuses as of 11/01/2019) Medications Medication Sig Dispensed Refills Start Date [...] nicotine dependence without complication, Sleep-disordered breathing lisinopril 40 mg Take 1 tablet by 30 tablet 5 10/26/2019 Active tabletIndications: mouth daily. Essential hypertension documented as of this encounter (statuses as of 11/01/2019) Active Problems Problem Noted Date Morbid obesity with body mass index of 40.0-49.9 07/17 Nonobstructive atherosclerosis of coronary artery 02/2018 Essential hypertension 12/07/2013 HLD (hyperlipidemia) 12/07/2013 Borderline diabetes mellitus 12/07/2013 Obesity (BMI 30-39.9) 12/07/2013 Tobacco abuse 12/07/2013 Atypical chest pain 11/20/2013 documented as of this encounter (statuses as of 11/01/2019) Immunizations Name Administration Dates Next Due Influenza [...] Travel End No recent travel history available. COVID-19 Exposure Response Date Recorded In the last month, have you been in contact with No / Unsure 10/29/2019 9:08 AM CDT someone who was confirmed or suspected to have Coronavirus / COVID-19? documented as of this encounter Last Filed Vital Signs Not on filedocumented in this encounter Patient Instructions Patient InstructionsNicEktaJOSEFINA - 11/01/2019 9:30 AM CDT Patient Education Overview of Sleep Disorders Facts about sleep disorders Loss of sleep can cause problems at home or on the job. It can lead to serious or even fatal accidents. The National Sleep Foundation notes that: Between 50 and 70 million [place] adults have some type of sleep or wakefulness disorder. Sleep problems get worse as you get older. Poor sleep cost billions of dollars a year. This is from healthcare expenses and lost productivity. Drowsy drivers cause about 40,000 vehicle crashes in the [place] every year. This includes more than1,500 deaths. Types of sleep disorders There are many types of sleep disorders. They can affect health and quality of life. The disorders include: Insomnia Sleep apnea Sleepwalking Bedwetting Nightmares Night terror Restless legs syndrome Snoring Narcolepsy Why is sleep important? Sleep is not just resting or taking a break from busy routines. Sleep is a hu part of good health. Getting enough sleep may help the body recover from illness and injury. Not getting enough sleep overa period of time is linked to health problems. They include obesity, diabetes, and heart disease. The mental benefits of sleep are also important. Sleep problems can make daily life feel more stressful and less productive. Some people with chronic trouble sleeping (insomnia) are more likely to havemental health problems. Sleep problems are also tied to depression. In a research survey, people whohad trouble getting enough sleep had trouble doing tasks that use memory and learning. How much sleep do you need? Sleep needs vary from person to person. But most healthy adults need about7 to9 hours of sleep anight. You may need more or better sleep if you: Have trouble staying alert during quiet activities Are irritable with coworkers, family, or friends Have trouble focusing or remembering facts Have trouble falling asleep or staying asleep, or wake up early and can't get back to sleep Getting treatment for a sleep disorder For those who suffer from sleep disorders, help is available from many sources. Sleep problems can be treated or managed by different kinds of healthcare providers. You may be treated by a healthcare provider who specializes in any of these: Internal medicine Gerontology Pediatrics Family practice Pulmonary medicine Neurology Psychiatry Otolaryngology You can also find a healthcare provider who is certified in sleep medicine by the [place] [employer]. Talk with yourhealthcare provider about finding a sleep disorder program. Adayana yumi reviewed this educational content on 04/03/201719992625-5764 [employer]. [address] [place] [address]. All rights reserved. This information is not intended as a substitute for professional medical care. Always follow your healthcare professional's instructions. Patient Education Coping with Shortness of Breath: Controlling Stress When you have lung problems, it may be hard for you to breathe. Stress can make it worse. Learn to relax and control stress. This can prevent shortness of breath and avoid panic. When anxiety takes over When you feel short of breath, your neck, shoulder, and chest muscles tense. You become anxious and start to breathe faster. Your breathing muscles get tired and trap air in your lungs. Your chest may feel tight. Anxiety increases and you may start to panic. Stop panic before it starts The hu to controlling panic is to break the cycle before it starts. When you are becoming short of breath, do the following: Sit, relaxing your arms and shoulders. Lean forward, resting your upper body on your forearms. Breathe in slowly through your nose while counting to 2. Hold your lips together as if you are trying to whistle or blow out a candle. Breathe out slowly and gently through your pursed lips while counting to 4. Repeat these steps as needed. Learn to relax Control stress by staying away from things that trigger stress and by relaxing when you start feeling tense. Find a quiet place and sit or lie in a comfortable position. Close your eyes and try the following: Picture yourself in an ideal place, doing something you enjoy. Stay in that place until you feel relaxed. Slowly tense, then relax, each part of your body. Start with your toes and work up to your scalp.As you breathe in, tighten the muscles. Keep them tight for several seconds. Then relax as you breathe out. You can also relax by doing mago chi or yoga, praying, meditating, or listening to music or relaxation tapes. Talk with your healthcare provider about how you are feeling. It's important for your provider to understand what's going on and how it's affecting your life. Talk about physical exercises that may be right for you. [employer] reviewed this educational content on 05/04/201919999083-1371 [employer]. [address] [place] [address]. All rights reserved. This information is not intended as a substitute for professional medical care. Always follow your healthcare professional's instructions. documented in this encounter Progress Notes Ekta Lucero FNP - 11/01/2019 9:30 AM CDT TELEMEDICINE VISIT Patient verbalized understanding that this would be a Telemedicine visit. Clarified that she could hear me prior to the exam. Before starting exam, all patient's questions/concerns about this Tele-medicine visit were addressed. Verbal consent obtained from Patient: Juan Miguel Langston due to the COVID-19 pandemic for telehealth services provided below. Communication with patient was conducted via Telephone due to patient unable to obtain video call option. Location of Patient: Home Location of Provider: home Date of Service: 11/01/2019 Chief Complaint: ED follow up and daytime sleepiness HPI: Juan Miguel Langston is a 54 year old male was recently in the ED for generalized weakness on10/29/19. Stated he felt his blood sugar and b/p was high. He has not taken his HTN or DM meds prior to arrival in the ED. Was fasting. BS was 126 and VS on arrival were 169/96 pulse 84. EKG and Chest Xray were normal. Prior to discharge, B/P 151/84 and pulse of 66. He was discharged without further intervention. Had a telehealth visit with Dr Palomino on 10/24. With complaints of dyspnea. PFT noted normal spirometry and lung volumes. He suggested that since Albuterol and symbicort were helpful there may be an asthmatic component to his sx. Patient is to continue with the short and long acting bronchodilators. Recommending smoking cessation and low salt and process food diet, along with weight loss. Today patient states he is having a lot of daytime sleepiness. His girlfriend says that he sometimes stops breathing at night. He feels he needs a sleep study Past Medical History: Diagnosis Date Arthritis CAD (coronary artery disease) RCA with 30-40% lesion Diabetes mellitus Heart murmur HLD (hyperlipidemia) HTN (hypertension) Obesity (BMI 30.0-34.9) Sinus pause up to 4.7 seconds at night during hospitalization in november 2013 Tobacco abuse MEDICATIONS: Current Outpatient Medications Medication Sig Dispense Refill lisinopril 40 mg tablet Take 1 tablet by mouth daily. 30 tablet 5 budesonide-formoteroL (SYMBICORT) 160-4.5 mcg/actuation inhaler Inhale 2 Puffs 2 (two) times daily. 10.2 g 11 traMADol 50 mg tablet Take 1 tablet by mouth every 6 (six) hours as needed for Pain (scale 4-6).28 tablet 0 clopidogreL (PLAVIX) 75 mg tablet Take 1 [...] or Shortness of Breath. 8.5 g 3 fluticasone propion-salmeterol (AIRDUO RESPICLICK) 113-14 mcg/actuation AePB Inhale 1 Puff 2 (two) times daily. 1 Each 11 nitroglycerin (NITROSTAT) 0.[address] 1 Tab under the tongue every 5 (five) minutes as needed for Chest pain. 30 Tab 30 No current facility-administered medications for this visit. REVIEW OF SYSTEMS: All 12 points of ROS are negative except as HPI PHYSICAL EXAM: Telemedicine - unable to complete physical exam. General: patient alert and in no acute distress Constitutional: Oriented to person, place, and time Respiratory: No cough heard, no respiratory distress noted Psychiatric: alert, oriented, with appropriate affect Neurological: Alert and oriented to person, place, and time. Labs: reviewed in [facility] E[facility]. Images: reviewed in [facility] ASSESSMENT/PLAN: Juan Miguel Langston is a 54 year old male with PMH as above presenting with daytime sleepiness and ED follow up 1. Excessive daytime sleepiness 2. SOB (shortness of breath) on exertion Discussed that the Indigent program doesn't cover sleep medicine Confirmed that the couple is still homeless so a CPAP machine is not likely to be operational without a steady source of electricity. Will attempt to explore other possibilities Encouraged smoking cessation and weight loss After visit summary (AVS ) documentation will be available through [employer] for this encounter. JOSEFINA العراقي ER warnings given. Barriers to care: None Ability to manage care: Good Follow up as we discussed or if ANY WORSE SYMPTOMS or SHORTNESS OF BREATH, CHEST PAINS/PRESSURE AND / OR REOCCURING FEVER, OR VOMITING - PLEASE SEEK MEDICAL ATTENTION. [facility] urgent care [phone], as well as after hours care nurse access center available by calling [phone] 24 hours 7 days per week. A total of 20 minutes spent on the telephone with the patient. documented in this encounter Plan of Treatment Date Type Specialty Care Team Description 02/18/2020 Office Visit Cardiology Eunice Chang M D [address] [place] [address] [phone] 04/25/2020 Office Visit Pulmonary Disease Mayela Funes DO [address] [place] [phone] Health Maintenance Due Date Last Done Comments COLONOSCOPY 09/07/2015 Zoster Recombinant Vaccine (SHINGRIX) (2 06/15/2019 019 of 2) DTaP,Tdap,and Td Vaccines (2 - Td) 04/20/2029 04/20/2019 INFLUENZA VACCINE Completed 04/20/2019, 09/19/2013 PNEUMOCOCCAL 0-64 YEARS COMBINED SERIES Completed 04/20/20 19, 09/19/2013 documented as of this encounter Results Not on filedocumented in this encounter Visit Diagnoses Diagnosis Excessive daytime sleepiness - Primary SOB (shortness of breath) on exertion Shortness of breath documented in this encounter Insurance Payer Benefit Plan / Subscriber ID Effective Phone Address T ype Group Dates ROSEANNA CONDON [id number] 2019-Shyann [phone] [facility] [address] [place] [address] documented as of this encounter
[2019-11-03 10:07] LABS: Absolute Lymphocytes (CBC) 1.5 K/uL (0.7-4.9); Basophils % 1.3 % (0-1.3); Hematocrit 45.1 % (39.6-49.0); Lymphocytes % 21.3 % (15.3-44.8); RBC Red Blood Cell Count 5.13 M/uL (4.33-5.43)
[2019-11-03 10:08] LABS: Protime INR 1.03
[2019-11-03] MEDS ORDERED: ASPIRIN 81 MG CHEWABLE TABLET ONE (10:14)
[2019-11-03] MEDS ORDERED: MORPHINE 2 MG/ML SYR ONE (10:15)
[2019-11-03 10:27] LABS: ALT/SGPT 71 U/L (12-78); AST/SGOT 23 U/L (15-37); Albumin 3.3 g/dL (3.4-5.0); Alkaline Phosphatase 58 U/L (45-117); BUN Blood Urea Nitrogen 15 mg/dL (7-18); Bicarbonate 28 mmol/L (21-32); Bilirubin Direct < 0.1 mg/dL (0-0.2); Bilirubin Total 0.2 mg/dL (0.2-1.0); Glucose Level 151 mg/dL (74-106); Magnesium 1.9 mg/dL (1.8-2.4); NT PRO-BNP 38 pg/mL (<125); Potassium 4.1 mmol/L (3.5-5.1); Sodium Level 138 mmol/L (136-145); Troponin (Emerg Dept Use Only) < 0.02 ng/mL (0.0-0.045)
--- NOTE | 2019-11-03 11:57 | RAD REPORT ---
EXAM DESCRIPTION: Jayda Single View11/03/2019 10:38 am CLINICAL HISTORY: Chest pain COMPARISON: October 2019 FINDINGS: The lungs appear clear of acute infiltrate. The heart is normal size IMPRESSION: No acute abnormalities displayed
--- NOTE | 2019-11-03 14:04 | EDPHYS ---
Physician Documentation [facility] Name: Juan Miguel Langston Age: 54 yrs Sex: Male : 1965 Arrival Date: 11/03/2019 Time: 09:34 Bed 3 Private MD: ED Physician Nate Donald HPI: 11/02 09:41 This 54 yrs old Male presents to ER via EMS with complaints of Dizziness, cp DEHYDRATION. 09:41 The patient presents with feeling faint, generalized weakness. Onset: The cp symptoms/episode began/occurred this morning, at 03:30. Associated signs and symptoms: Pertinent positives: chest pain, near-syncope, pain all over, Pertinent negatives: abdominal pain, combativeness, diaphoresis, focal weakness, headache, numbness, vomiting, diarrhea. Severity of symptoms: in the emergency department the symptoms have improved mildly. Patient's baseline: Neuro: alert and fully oriented, Motor: no deficits, Ambulation: walks without assistance, Speech: normal. Historical: - Allergies: 09:38 Azithromycin; bp 09:38 Beta-Blockers (Beta-Adrenergic Bloc; bp 09:38 Metoprolol Tartrate; bp - Home Meds: 09:38 tramadol 50 mg Oral tab 1 tab every 6 hours for Pain [Active]; aspirin 325 mg Oral tab bp [Active]; atorvastatin 40 mg Oral tab 1 tab nightly [Active]; clopidogrel 75 mg Oral tab 1 tab once daily [Active]; Combivent 18-103 mcg/actuation Inhl aero 2 puffs 4 times per day [Active]; isosorbide 60 mg ER daily [Active]; Lasix 20 mg Oral tab once daily [Active]; lisinopril 40 mg Oral tab once daily [Active]; Livalo 4 mg Oral tab 1 tab nightly [Active]; metformin 500 mg Oral tab 1 tab 2 times per day [Active]; omeprazole 40 mg Oral cpDR 1 cap once daily [Active]; ProAir HFA 90 mcg/actuation inhalation HFAA 2 puffs every 6 hours [Active]; - PMHx: 09:38 Angina; COPD; Diabetes - NIDDM; High Cholesterol; Hypertension; Myocardial infarction; bp Sleep Apnea; - Immunization history:: Adult Immunizations up to date. - Social history:: Smoking status: Patient reports the use of cigarette tobacco products, unknown amount. ROS: 09:45 Constitutional: Negative for body aches, chills, fever, poor PO intake. cp 09:45 Eyes: Negative for injury, pain, redness, and discharge. cp 09:45 Cardiovascular: Positive for chest pain, Negative for edema. cp 09:45 ENT: Negative for drainage from ear(s), ear pain, sore throat, difficulty swallowing, cp difficulty handling secretions. 09:45 Respiratory: Negative for cough, shortness of breath, wheezing. 09:45 Abdomen/GI: Negative for abdominal pain, nausea, vomiting, and diarrhea. 09:45 MS/extremity: Negative for injury or acute deformity, decreased range of motion, pain, paresthesias. 09:45 Neuro: Positive for dizziness, weakness, Negative for altered mental status, headache, syncope. 09:45 All other systems are negative. Exam: 09:55 Constitutional: The patient appears in no acute distress, alert, awake, cp non-diaphoretic, non-toxic, well developed, well nourished, obese. 09:55 Head/Face: Normocephalic, atraumatic. cp 09:55 Eyes: Periorbital structures: appear normal, Pupils: equal, round, and reactive to light and accomodation, Extraocular movements: intact throughout, Conjunctiva: normal, no exudate, no injection, Sclera: no appreciated abnormality, Lids and lashes: appear normal, bilaterally. 09:55 ENT: External ear(s): are unremarkable, Ear canal(s): are normal, clear, TM's: bulging, is not appreciated, bilaterally, dullness, bilaterally, erythema, is not appreciated, bilaterally, Nose: is normal, Mouth: Lips: moist, Oral mucosa: pink and intact, moist, Posterior pharynx: is normal, airway is patent, no erythema, no exudate. 09:55 Neck: ROM/movement: is normal, is supple, without pain, no range of motions limitations, no nuchal rigidity. 09:55 Chest/axilla: Inspection: normal, Palpation: is normal, no crepitus, no tenderness. 09:55 Cardiovascular: Rate: normal, Rhythm: regular, Edema: is not appreciated, JVD: is not appreciated. 09:55 Respiratory: the patient does not display signs of respiratory distress, Respirations: normal, no use of accessory muscles, no retractions, labored breathing, is not present, Breath sounds: are clear throughout, no decreased breath sounds, no stridor, no wheezing. 09:55 Abdomen/GI: Inspection: abdomen appears normal, Bowel sounds: active, all quadrants, Palpation: abdomen is soft and non-tender, in all quadrants. 09:55 Neuro: Orientation: to person, place \T\ time. Mentation: is normal, Cerebellar function: cp is grossly normal, Motor: moves all fours, strength is normal, Sensation: is normal. 10:00 ECG was reviewed by the Attending Physician. cp Vital Signs: 09:35 BP 181 / 100; Pulse 94; Resp 18; Temp 97.8; Pulse Ox 93% ; bp 10:02 BP 162 / 88 Supine; Pulse 87; jb1 10:02 BP 142 / 85 Sitting; Pulse 86; jb1 10:03 BP 159 / 93 Standing; Pulse 88; jb1 10:42 BP 122 / 97; Pulse 89; Resp 13; Pulse Ox 96% ; bp 11:21 BP 146 / 88; Pulse 75; Resp 13; Pulse Ox 95% ; bp 11:57 BP 163 / 94; Pulse 74; Resp 16; Pulse Ox 95% ; bp 13:40 BP 129 / 77; Pulse 73; Resp 14; Pulse Ox 95% ; bp MDM: 09:40 Patient medically screened. cp 14:00 Data reviewed: vital signs, nurses notes, lab test result(s), EKG, radiologic studies, cp plain films. 14:00 Differential diagnosis: cardiac arrhythmia, GI bleed, hypovolemia, vertigo. Test cp interpretation: by ED physician or midlevel provider: ECG. Counseling: I had a detailed discussion with the patient and/or guardian regarding: the historical points, exam findings, and any diagnostic results supporting the discharge/admit diagnosis, lab results, radiology results, the need for outpatient follow up, a family practitioner, to return to the emergency department if symptoms worsen or persist or if there are any questions or concerns that arise at home. Response to treatment: the patient's symptoms have markedly improved after treatment, and as a result, I will discharge patient. Special discussion: Based on the patient's history, exam, and Dx evaluation, there is no indication for emergent intervention or inpatient Tx. It is understood by the patient/guardian that if the Sx's persist or worsen they need to return immediately for re-evaluation. 11/02 09:40 Order name: Basic Metabolic Panel; Complete Time: 10:41 cp /02 10:41 Interpretation: Normal except: GLUC 151. cp 11/02 09:40 Order name: CBC with Diff; Complete Time: 10:41 cp 05/02 10:42 Interpretation: Normal except: RDW 16.7. cp / 09:40 Order name: LFT's; Complete Time: 10:41 cp 05/ 13:57 Interpretation: Normal except: ALB 3.3; GLOB 3.7; A/G 0.9. cp 11/02 09:40 Order name: Magnesium; Complete Time: 10:41 cp 11/02 09:40 Order name: NT PRO-BNP; Complete Time: 10:41 cp 11/02 09:40 Order name: PT-INR; Complete Time: 10:41 cp 11/02 09:40 Order name: Troponin (emerg Dept Use Only); Complete Time: 10:41 cp 11/02 10:42 Interpretation: Reviewed. cp 11/02 09:40 Order name: XRAY Chest (1 view); Complete Time: 13:06 cp 11/02 13:06 Interpretation: Report review. cp 11/02 12:55 Order name: Troponin (emerg Dept Use Only); Complete Time: 13:53 bp 11/02 13:53 Interpretation: Within normal limits. cp 11/02 09:40 Order name: EKG; Complete Time: 09:41 cp 11/02 09:40 Order name: Cardiac monitoring; Complete Time: 09:41 cp 11/02 09:40 Order name: EKG - Nurse/Tech; Complete Time: 09:55 cp 11/02 09:40 Order name: IV Saline Lock; Complete Time: 09:41 cp 11/02 09:40 Order name: Labs collected and sent; Complete Time: 09:55 cp 11/02 09:40 Order name: O2 Per Protocol; Complete Time: 09:41 cp / 09:40 Order name: O2 Sat Monitoring; Complete Time: 09:41 cp 11/02 09:40 Order name: Orthostatics; Complete Time: 10:03 cp / 14:02 Order name: Diet Heart Healthy; Complete Time: 14:02 cp EC:00 Rate is 91 beats/min. Rhythm is regular. MD interval is normal. QRS interval is normal. cp QT interval is normal. Clinical impression: Abnormal EKG without significant change. Interpreted by me. Reviewed by me. Administered Medications: 10:00 Drug: morphine 2 mg Route: IVP; Site: right hand; bp 11:07 Follow up: Response: Pain is decreased bp 10:00 Drug: Aspirin Chewable Tablet 324 mg Route: PO; bp 11:07 Follow up: Response: No adverse reaction bp 10:15 Drug: NS 0.9% 250 ml Route: IV; Rate: bolus; Site: right hand; bp 14:30 Follow up: IV Status: Completed infusion; IV Intake: 250ml bp 14:14 Drug: Hydrocodone-Acetaminophen (7.5 mg-325 mg) 1 tabs Route: PO; bp 14:15 Follow up: Response: No adverse reaction; Pain is decreased bp 14:14 Drug: TORadol - Ketorolac 15 mg Route: IVP; Site: Other; bp 14:15 Follow up: Response: Pain is decreased bp Disposition: 15:56 Co-signature as Attending Physician, Nate Donald MD. rn Disposition: 11/03/19 14:03 Discharged to Home. Impression: Dizziness and giddiness, Other chest pain, Weakness - general. - Condition is Stable. - Discharge Instructions: Nonspecific Chest Pain, Dizziness, Weakness, Aspirin and Your Heart. - Medication Reconciliation Form, Thank You Letter, Antibiotic Education, Prescription Opioid Use form. - Follow up: Private Physician; When: 1 - 2 days; Reason: Recheck today's complaints. - Problem is new. - Symptoms have improved. Signatures: Dispatcher [employer] EDMS Nate Donald MD MD rn Lenard Gray PA PA cp Peltier, Brian, RN RN bp Corrections: (The following items were deleted from the chart) 14:06 14:03 11/03/2019 14:03 Discharged to Home. Impression: Dizziness and giddiness; Other cp chest pain. Condition is Stable. Forms are Medication Reconciliation Form, Thank You Letter, Antibiotic Education, Prescription Opioid Use. Follow up: Private Physician; When: 1 - 2 days; Reason: Recheck today's complaints. Problem is new. Symptoms have improved. cp 14:31 14:06 11/03/2019 14:03 Discharged to Home. Impression: Dizziness and giddiness; Other bp chest pain; Weakness - general. Condition is Stable. Discharge Instructions: Nonspecific Chest Pain, Dizziness, Aspirin and Your Heart, Weakness. Forms are Medication Reconciliation Form, Thank You Letter, Antibiotic Education, Prescription Opioid Use. Follow up: Private Physician; When: 1 - 2 days; Reason: Recheck today's complaints. Problem is new. Symptoms have improved. cp
--- NOTE | 2019-11-03 14:04 | ER ---
Nurse's Notes [facility] Name: Juan Miguel Langston Age: 54 yrs Sex: Male : 1965 Arrival Date: 11/03/2019 Time: 09:34 Bed 3 Private MD: Diagnosis: Dizziness and giddiness;Other chest pain;Weakness-general Presentation: 11/02 09:35 Chief complaint: EMS states: DIZZINESS AND DEHYDRATION SINCE 0300. Coronavirus screen: bp Proceed with normal triage. Ebola Screen: No symptoms or risks identified at this time. Initial Sepsis Screen: Does the patient meet any 2 criteria? HR > 90 bpm. Does the patient have a suspected source of infection? No. Patient's initial sepsis screen is negative. Risk Assessment: Do you want to hurt yourself or someone else? Patient reports no desire to harm self or others. Onset of symptoms was November 03, 2019 at 03:00. Care prior to arrival: Medication(s) given: Nitroglycerin, 0.4 mg SL x 1, IV initiated. 20 GA, in the right hand. 09:35 Method Of Arrival: EMS: [facility] bp 09:35 Acuity: DESTINY 3 bp Triage Assessment: 09:38 General: Appears in no apparent distress. comfortable, obese, Behavior is cooperative, bp appropriate for age, anxious. Pain: Complains of pain in chest. EENT: No deficits noted. Neuro: No deficits noted. Cardiovascular: Rhythm is sinus rhythm. Respiratory: No deficits noted. GI: No signs and/or symptoms were reported involving the gastrointestinal system. : No signs and/or symptoms were reported regarding the genitourinary system. Derm: No deficits noted. Musculoskeletal: No deficits noted. Historical: - Allergies: 09:38 Azithromycin; bp 09:38 Beta-Blockers (Beta-Adrenergic Bloc; bp 09:38 Metoprolol Tartrate; bp - Home Meds: 09:38 tramadol 50 mg Oral tab 1 tab every 6 hours for Pain [Active]; aspirin 325 mg Oral tab bp [Active]; atorvastatin 40 mg Oral tab 1 tab nightly [Active]; clopidogrel 75 mg Oral tab 1 tab once daily [Active]; Combivent 18-103 mcg/actuation Inhl aero 2 puffs 4 times per day [Active]; isosorbide 60 mg ER daily [Active]; Lasix 20 mg Oral tab once daily [Active]; lisinopril 40 mg Oral tab once daily [Active]; Livalo 4 mg Oral tab 1 tab nightly [Active]; metformin 500 mg Oral tab 1 tab 2 times per day [Active]; omeprazole 40 mg Oral cpDR 1 cap once daily [Active]; ProAir HFA 90 mcg/actuation inhalation HFAA 2 puffs every 6 hours [Active]; - PMHx: 09:38 Angina; COPD; Diabetes - NIDDM; High Cholesterol; Hypertension; Myocardial infarction; bp Sleep Apnea; - Immunization history:: Adult Immunizations up to date. - Social history:: Smoking status: Patient reports the use of cigarette tobacco products, unknown amount. Screenin:39 Abuse screen: Denies threats or abuse. Denies injuries from another. Nutritional bp screening: No deficits noted. Tuberculosis screening: No symptoms or risk factors identified. Fall Risk None identified. Assessment: 09:39 General: SEE TRIAGE NOTE. bp 11:21 Reassessment: ALL CURRENT ORDERS COMPLETED, RESULTS UNREMARKABLE. PT SLEEPING, NO S/S bp ACUTE DISTRESS. 11:56 Reassessment: REPEAT TROPONIN DUE AT 1300. ALL INITIAL RESULTS UNREMARKABLE. bp 13:30 Reassessment: REPEAT TROPONIN IN PROCESS. NO S/S ACUTE DISTRESS AT THIS TIME. VS STABLE bp ON MONITOR. 14:29 Reassessment: PT D/C HOME AMBULATORY, DX WITH DIZZINESS. bp Vital Signs: 09:35 BP 181 / 100; Pulse 94; Resp 18; Temp 97.8; Pulse Ox 93% ; bp 10:02 BP 162 / 88 Supine; Pulse 87; jb1 10:02 BP 142 / 85 Sitting; Pulse 86; jb1 10:03 BP 159 / 93 Standing; Pulse 88; jb1 10:42 BP 122 / 97; Pulse 89; Resp 13; Pulse Ox 96% ; bp 11:21 BP 146 / 88; Pulse 75; Resp 13; Pulse Ox 95% ; bp 11:57 BP 163 / 94; Pulse 74; Resp 16; Pulse Ox 95% ; bp 13:40 BP 129 / 77; Pulse 73; Resp 14; Pulse Ox 95% ; bp ED Course: 09:34 Patient arrived in ED. bp 09:37 Triage completed. bp 09:38 Lenard Gray PA is PHCP. cp 09:38 Nate Donald MD is Attending Physician. cp 09:38 Arm band placed on. bp 09:39 Patient has correct armband on for positive identification. Bed in low position. Call bp light in reach. Side rails up X2. monitor and storage bin tender on. Pulse ox on. NIBP on. 09:39 Maintain EMS IV. Dressing intact. Good blood return noted. Site clean \T\ dry. Gauge \T\ bp site: 20 G R HAND. 09:55 Cl Gan, RN is Primary Nurse. bp 10:02 EKG done, by ED staff, reviewed by Lenard CHUN. jbAni 10:38 XRAY Chest (1 view) In Process Unspecified. EDMS 14:29 No provider procedures requiring assistance completed. IV discontinued, intact, bp bleeding controlled, No redness/swelling at site. Pressure dressing applied. Administered Medications: 10:00 Drug: morphine 2 mg Route: IVP; Site: right hand; bp 11:07 Follow up: Response: Pain is decreased bp 10:00 Drug: Aspirin Chewable Tablet 324 mg Route: PO; bp 11:07 Follow up: Response: No adverse reaction bp 10:15 Drug: NS 0.9% 250 ml Route: IV; Rate: bolus; Site: right hand; bp 14:30 Follow up: IV Status: Completed infusion; IV Intake: 250ml bp 14:14 Drug: Hydrocodone-Acetaminophen (7.5 mg-325 mg) 1 tabs Route: PO; bp 14:15 Follow up: Response: No adverse reaction; Pain is decreased bp 14:14 Drug: TORadol - Ketorolac 15 mg Route: IVP; Site: Other; bp 14:15 Follow up: Response: Pain is decreased bp Intake: 14:30 IV: 250ml; Total: 250ml. bp Outcome: 14:03 Discharge ordered by . cp 14:29 Discharged to home ambulatory. bp 14:29 Condition: stable 14:29 Discharge instructions given to patient, Instructed on discharge instructions, follow up and referral plans. Demonstrated understanding of instructions, follow-up care. 14:31 Patient left the ED. bp Signatures: Dispatcher [employer] EDMS Addison Kim jbLenard Rincon PA PA cp Peltier, Brian, RN RN bp
[2019-11-03] MEDS ORDERED: KETOROLAC 30 MG/ML INJ ONE (14:16)
[2019-11-03] MEDS ORDERED: HYDROCODONE/APAP 7.5/325 MG TAB ONE (14:16)
[2019-11-03 15:04] VITALS: TEMP 97.8
[2019-11-03 15:08] VITALS: O2SAT 95
[2019-11-03 15:10] VITALS: BP 129/77
--- NOTE | 2019-11-04 13:10 | EKG ---
Test Date: 2019-11-03 Test Time: 09:53:04 Guest Services Assistant: LASHAWN MEASUREMENT RESULTS: Intervals: Rate: 91 [place]: 138 QRSD: 94 QT: 352 QTc: 432 [place]: P: 48 [place]: 138 QRS: 63 T: 54 INTERPRETIVE STATEMENTS: Normal sinus rhythm Nonspecific ST and T wave abnormality Abnormal ECG Compared to ECG 10/18/2019 20:29:37 Possible ischemia no longer present ST (T wave) deviation still present Electronically Signed On 11-04-19 13:09:47 CDT by Nazario Anderson
== END 2019-11-03 14:31 | disposition home or self-care (01) ==
LOC: ER 09:28
DX: R07.89 Other chest pain (principal); R53.1 Weakness; I10 Essential (primary) hypertension; I25.2 Old myocardial infarction; E78.00 Pure hypercholesterolemia, unspecified; E11.9 Type 2 diabetes mellitus without complications; J44.9 Chronic obstructive pulmonary disease, unspecified; Z79.82 Long term (current) use of aspirin; Z88.1 Allergy status to other antibiotic agents; Z88.8 Allergy status to other drugs, medicaments and biological substances
CPT/HCPCS: 36415; 71045; 80048; 80076; 83735; 83880; 84484; 85025; 85610; 93005; 99284; J2270

== ENCOUNTER 2019-11-17 19:34 | Emergency (ER) | payer SELFPAY ==
--- OUTSIDE RECORDS SUMMARY | 2019-11-17 19:36 | XMS REPORT ---
:1965 Author Organization [facility] t Address [address] [place] [address] Care Team Providers Name Role Phone Care, Primary Attending Clinician Unavailable Marin PANTOJA Attending Clinician Nic CUBE CUTTER Attending Clinician DO Attending Clinician Doctor Unassigned, Name Attending Clinician Unavailable Problems This patient has no known problems. Allergies, Adverse Reactions, Alerts This patient has no known allergies or adverse reactions. Medications This patient has no known medications. Procedures This patient has no known procedures. Encounters Start End Encounter Admission Attending Care Care Encounter Source Date/Time Date/Time Type Type Clinicians Facility Department ID 2019-11-01 2019-11-01 [facility] Luis Butler [id number] 11:44:57 11:45:19 ne Visit [facility] [id number] [facility] [id number] UNIT [id number] 2019-10-25 2019-10-25 [facility] LOGAN Funes [id number] 08:02:52 08:22:52 ne Visit [facility] [id number] [place] [id number] Professio [id number] [address] 2019-10-24 2019-10-24 Telephone Ekta Lucero [id number] 00:00:00 00:00:00 [facility] [id number] [facility] [id number] UNIT [id number] 2019-10-15 2019-10-15 Emergency Singer [facility] [[email or web address]] [id number] 08:34:52 10:42:00 Narciso Escamilla [id number] [place] [phone] [id number] 2019-09-04 2019-09-04 Orders Doctor OSEI [id number] 00:00:00 00:00:00 Only UnassignedBOGDAN [id number] [place] [id number] [id number] 2019-08-16 2019-08-16 Office Care, [facility] [id number] 09:15:24 10:27:13 Visit [facility] [id number] [facility] [id number] 2019-06-20 2019-06-20 Orders Doctor OSEI [id number] 00:00:00 00:00:00 Only UnassignedBOGDAN [id number] [place] [id number] [id number] Results This patient has no known results.
[2019-11-17 19:55] LABS: Absolute Lymphocytes (CBC) 2.2 K/uL (0.7-4.9); Basophils % 1.4 % (0-1.3); Lymphocytes % 23.1 % (15.3-44.8); MPV 9.5 fL (7.6-11.3); RBC Red Blood Cell Count 5.01 M/uL (4.33-5.43)
[2019-11-17 20:07] LABS: Protime INR 0.91
[2019-11-17 20:20] LABS: ALT/SGPT 92 U/L (12-78); AST/SGOT 39 U/L (15-37); Albumin 3.4 g/dL (3.4-5.0); Alkaline Phosphatase 62 U/L (45-117); BUN Blood Urea Nitrogen 21 mg/dL (7-18); Bicarbonate 26 mmol/L (21-32); Bilirubin Direct < 0.1 mg/dL (0-0.2); Bilirubin Total 0.2 mg/dL (0.2-1.0); Glucose Level 303 mg/dL (74-106); Magnesium 1.8 mg/dL (1.8-2.4); NT PRO-BNP 28 pg/mL (<125); Potassium 4.4 mmol/L (3.5-5.1); Protein, Total 7.3 g/dL (6.4-8.2); Sodium Level 137 mmol/L (136-145); Troponin (Emerg Dept Use Only) < 0.02 ng/mL (0.0-0.045)
[2019-11-17] MEDS ORDERED: NA CHLORIDE 0.9% 1,000 ML ONE (20:48)
--- NOTE | 2019-11-17 21:08 | RAD REPORT ---
EXAM DESCRIPTION: RAD - Chest Single View - 11/17/2019 7:58 pm CLINICAL HISTORY: CHEST PAIN COMPARISON: Portable November 03, 2019 TECHNIQUE: AP portable chest image was obtained 11/17/2019 7:58 pm . FINDINGS: Lungs are clear. Heart and vasculature are normal. No measurable pleural effusion and no p neumothorax. No acute bony abnormality seen. No acute aortic findings suspected. IMPRESSION: No acute cardiopulmonary process. No significant change from comparison.
--- NOTE | 2019-11-17 23:46 | EDPHYS ---
Physician Documentation [facility] Name: Juan Miguel Langston Age: 54 yrs Sex: Male : 1965 Arrival Date: 11/17/2019 Time: 19:36 Bed 5 Private MD: ED Physician Lenard Rosario HPI: 11/16 20:36 This 54 yrs old Male presents to ER via EMS with complaints of Chest Pain. rambo 20:38 The patient or guardian reports chest pain that is located primarily in the substernal rambo area. Onset: today. The pain does not radiate. Associated signs and symptoms: Pertinent positives: headache, lower extremity swelling, lightheadedness, shortness of breath. The chest pain is described as a pressure. Modifying factors: The symptoms are alleviated by nothing. the symptoms are aggravated by nothing. Severity of pain: At its worst the pain was moderate in the emergency department the pain has improved mildly. The patient has experienced similar episodes in the past, multiple times. Historical: - Allergies: 20:06 Azithromycin; mg2 20:06 Beta-Blockers (Beta-Adrenergic Bloc; mg2 20:06 Metoprolol Tartrate; mg2 20:12 Azithromycin; tl1 20:12 Beta-Blockers (Beta-Adrenergic Bloc; tl1 20:12 Metoprolol Tartrate; tl1 - Home Meds: 20:12 aspirin 325 mg Oral tab [Active]; lisinopril 40 mg Oral tab once daily [Active]; tl1 metformin 500 mg Oral tab 1 tab 2 times per day [Active]; atorvastatin 40 mg Oral tab 1 tab nightly [Active]; clopidogrel 75 mg Oral tab 1 tab once daily [Active]; Combivent 18-103 mcg/actuation Inhl aero 2 puffs 4 times per day [Active]; isosorbide 60 mg ER daily [Active]; Lasix 20 mg Oral tab once daily [Active]; Livalo 4 mg Oral tab 1 tab nightly [Active]; omeprazole 40 mg Oral cpDR 1 cap once daily [Active]; ProAir HFA 90 mcg/actuation inhalation HFAA 2 puffs every 6 hours [Active]; tramadol 50 mg Oral tab 1 tab every 6 hours for Pain [Active]; - PMHx: 20:06 Angina; COPD; Diabetes - NIDDM; High Cholesterol; Hypertension; Myocardial infarction; mg2 Sleep Apnea; 20:12 Angina; COPD; Diabetes - NIDDM; High Cholesterol; Hypertension; Myocardial infarction; tl1 Sleep Apnea; - Immunization history:: Adult Immunizations unknown. - Social history:: Smoking status: Patient reports the use of cigarette tobacco products, smokes two packs cigarettes per day. - Family history:: not pertinent. ROS: 20:38 Constitutional: Negative for fever, chills, and weight loss, Eyes: Negative for injury, rambo pain, redness, and discharge, ENT: Negative for injury, pain, and discharge, Neck: Negative for injury, pain, and swelling, Respiratory: Negative for shortness of breath, cough, wheezing, and pleuritic chest pain, Abdomen/GI: Negative for abdominal pain, nausea, vomiting, diarrhea, and constipation, Back: Negative for injury and pain, : Negative for injury, bleeding, discharge, and swelling, MS/Extremity: Negative for injury and deformity, Skin: Negative for injury, rash, and discoloration, Neuro: Negative for headache, weakness, numbness, tingling, and seizure, Psych: Negative for depression, anxiety, suicide ideation, homicidal ideation, and hallucinations, Allergy/Immunology: Negative for hives, rash, and allergies, Endocrine: Negative for neck swelling, polydipsia, polyuria, polyphagia, and marked weight changes, Hematologic/Lymphatic: Negative for swollen nodes, abnormal bleeding, and unusual bruising. 20:38 Cardiovascular: Positive for chest pain. Exam: 20:38 Constitutional: This is a well developed, well nourished patient who is awake, alert, rambo and in no acute distress. Head/Face: Normocephalic, atraumatic. Eyes: Pupils equal round and reactive to light, extra-ocular motions intact. Lids and lashes normal. Conjunctiva and sclera are non-icteric and not injected. Cornea within normal limits. Periorbital areas with no swelling, redness, or edema. ENT: Nares patent. No nasal discharge, no septal abnormalities noted. Tympanic membranes are normal and external auditory canals are clear. Oropharynx with no redness, swelling, or masses, exudates, or evidence of obstruction, uvula midline. Mucous membranes moist. Neck: Trachea midline, no thyromegaly or masses palpated, and no cervical lymphadenopathy. Supple, full range of motion without nuchal rigidity, or vertebral point tenderness. No Meningismus. Chest/axilla: Normal chest wall appearance and motion. Nontender with no deformity. No lesions are appreciated. Cardiovascular: Regular rate and rhythm with a normal S1 and S2. No gallops, murmurs, or rubs. Normal PMI, no JVD. No pulse deficits. Respiratory: Lungs have equal breath sounds bilaterally, clear to auscultation and percussion. No rales, rhonchi or wheezes noted. No increased work of breathing, no retractions or nasal flaring. Abdomen/GI: Soft, non-tender, with normal bowel sounds. No distension or tympany. No guarding or rebound. No evidence of tenderness throughout. Back: No spinal tenderness. No costovertebral tenderness. Full range of motion. Male : Normal genitalia with no discharge or lesions. Skin: Warm, dry with normal turgor. Normal color with no rashes, no lesions, and no evidence of cellulitis. MS/ Extremity: Pulses equal, no cyanosis. Neurovascular intact. Full, normal range of motion. Neuro: Awake and alert, GCS 15, oriented to person, place, time, and situation. Cranial nerves II-XII grossly intact. Motor strength 5/5 in all extremities. Sensory grossly intact. Cerebellar exam normal. Normal gait. Psych: Awake, alert, with orientation to person, place and time. Behavior, mood, and affect are within normal limits. 20:38 Musculoskeletal/extremity: DVT Exam: No signs of deep vein thrombosis. no pain, no swelling, no tenderness, negative Homans' sign noted on exam, no appreciated bluish discoloration, no erythema, no increased warmth. 21:57 ECG was reviewed by the Attending Physician. [facility] Vital Signs: 19:36 BP 136 / 85; Pulse 99; Resp 17; Temp 99.7(O); Pulse Ox 96% on R/A; Weight 117.93 kg; tl1 Height 5 ft. 6 in. (167.64 cm); Pain 9/10; 20:46 BP 127 / 64; Pulse 88; Resp 18; Pulse Ox 93% on R/A; mg2 22:00 BP 139 / 63; Pulse 76; Resp 17; Pulse Ox 96% on R/A; mt 11/17 00:02 BP 125 / 74; Pulse 86; Resp 18; Temp 98.5; Pulse Ox 94% ; mg2 05/16 19:36 Body Mass Index 41.96 (117.93 kg, 167.64 cm) tl1 MDM: 11/16 19:37 Patient medically screened. rambo 20:39 Data reviewed: vital signs, nurses notes, EMS record, lab test result(s), EKG, rambo radiologic studies, plain films. 22:24 Differential diagnosis: abnormal EKG, acute myocardial infarction, acute pericarditis, rambo coronary artery disease chest wall pain, congestive heart failure gastritis, hiatal hernia, pneumonia, pulmonary embolus, stable angina, unstable angina. HEART Score: History: Slightly Suspicious (0), ECG: Normal (0), Age: > 45 and < 65 years (1), Risk Factors: > or = 3 Risk factors for atherosclerotic disease (2), [Hypercholesterolemia] [Hypertension] [DM] [Active Smoker] [+ Family HX] [Obesity] Troponin: < or = 1 x Normal Limit (0). The patient was not given aspirin in the Emergency Department. Patient reports taking aspirin within the past 24 hours. The patient's deep vein thrombosis risk score was calculated as follows: Total Score: 0. This patient was found to be at low risk for a deep vein thrombosis by using the Well's assessment criteria. The patient's pulmonary embolism risk score was calculated as follows: Total Score: 0-2 points. This patient was found to be at low risk for a pulmonary embolism by using the Well's assessment criteria. IVONE Risk Score: 1 - Three or more CAD risk factors, [Family Hx], [HTN], [Elevated Cholesterol], [DM], [Active Smoker], 1- Known CAD, 1 - ASA use in past 7 days, 1 - Recent [<24hrs] Severe Angina. Data interpreted: monitoring analyst: rate is 76 beats/min, Pulse oximetry: on room air is 96 %. Test interpretation: by ED physician or midlevel provider: ECG, plain radiologic studies. Counseling: I had a detailed discussion with the patient and/or guardian regarding: the historical points, exam findings, and any diagnostic results supporting the discharge/admit diagnosis, lab results, radiology results, the need for outpatient follow up, for definitive care, a technician helper instrument. ED course: well known patient, on all listed meds, concerned of high blood glucose. 23:44 ED course: no cp at dc, understands plan, meds, ada diet and follow up dr anderson. [facility] 11/16 19:39 Order name: Basic Metabolic Panel mg2 11/16 19:39 Order name: CBC with Diff; Complete Time: 20:34 mg2 11/16 19:39 Order name: LFT's; Complete Time: 20:34 mg2 11/16 19:39 Order name: Magnesium; Complete Time: 20:34 mg2 11/16 19:39 Order name: NT PRO-BNP; Complete Time: 20:34 mg2 11/16 19:39 Order name: PT-INR; Complete Time: 20:34 mg2 11/16 19:39 Order name: Troponin (emerg Dept Use Only); Complete Time: 20:34 mg2 11/16 19:39 Order name: XRAY Chest (1 view); Complete Time: 22:19 mg2 11/16 19:39 Order name: EKG; Complete Time: 19:40 mg2 11/16 19:40 Order name: Basic Metabolic Panel; Complete Time: 20:34 EDMS 11/16 22:21 Order name: Troponin (emerg Dept Use Only): 1030pm; Complete Time: 23:14 rambo 11/16 22:58 Order name: Glucose, Ancillary Testing; Complete Time: 23:14 EDSC 11/16 19:39 Order name: Cardiac monitoring; Complete Time: 20:01 [facility] [place] 19:39 Order name: EKG - Nurse/Tech; Complete Time: 20:01 [facility] [place] 11/16 19:39 Order name: IV Saline Lock; Complete Time: 20:01 [facility] [place] 11/16 19:39 Order name: Labs collected and sent; Complete Time: 20:01 [facility] [place] 11/16 19:39 Order name: O2 Per Protocol; Complete Time: 20:01 [facility] [place] 11/16 19:39 Order name: O2 Sat Monitoring; Complete Time: 20:01 [facility] [place] 11/16 22:21 Order name: Blood Glucose Level; Complete Time: 22:48 [facility] EC:57 Rate is 98 beats/min. Rhythm is regular. QRS [place] is Normal. NC interval is normal. QRS rambo interval is normal. QT interval is normal. No Q waves. T waves are Normal. ST Segment is depressed in leads II, III, aVF, V5, V6. Clinical impression: NSR w/ Non-specific ST/T Changes. Interpreted by me. Reviewed by me. Administered Medications: 20:46 Drug: NS 0.9% 500 ml Route: IV; Rate: bolus; Site: right antecubital; mg2 11/17 00:01 Follow up: Response: No adverse reaction; IV Status: Completed infusion; IV Intake: mg2 500ml 11/16 21:18 Drug: NS 0.9% 1000 ml Route: IV; Rate: 125 ml/hr; Site: right antecubital; mg2 11/17 00:01 Follow up: Response: No adverse reaction; IV Status: Order to discontinue infusion; IV mg2 Intake: 350ml Disposition: 11/17/19 23:44 Discharged to Home. Impression: Other chest pain, Essential (primary) hypertension, Chronic obstructive pulmonary disease, unspecified, Obesity, unspecified, Tobacco abuse counseling, Tobacco use. - Condition is Stable. - Discharge Instructions: Nonspecific Chest Pain, Chronic Bronchitis, Type 2 Diabetes Mellitus, Diagnosis, Adult, Hypertension, Obesity, Adult, Steps to Quit Smoking, Smoking Hazards, Nonspecific Chest Pain, Gqbb-rx-[id number], Hypertension, Lule-cy-Xoqi, How to Take Your Blood Pressure, Tfhi-cs-Rmcx, Aspirin and Your Heart, Type 2 Diabetes Mellitus, Diagnosis, Adult, Ornv-nr-Uasq, Managing Your Hypertension, Type 2 Diabetes Mellitus, Self Care, Adult, Type 2 Diabetes Mellitus, Self Care, Adult, Cdkq-wa-Frho. - Medication Reconciliation Form, Thank You Letter, Antibiotic Education, Prescription Opioid Use form. - Follow up: Private Physician; When: 2 - 3 days; Reason: Recheck today's complaints, Continuance of care, Re-evaluation by your physician. Follow up: Nazario Anderson; When: 2 - 3 days; Reason: Recheck today's complaints, Continuance of care, Re-evaluation by your physician. Signatures: Dispatcher [employer] EDSC Lenard Rosario MD MD cha Lasagna, Tonya RN RN tl1 Ovi Mejia RN RN mg2 Corrections: (The following items were deleted from the chart) 00:10 11/16 23:44 11/17/2019 23:44 Discharged to Home. Impression: Other chest pain; mg2 Essential (primary) hypertension; Chronic obstructive pulmonary disease, unspecified; Obesity, unspecified; Tobacco abuse counseling; Tobacco use. Condition is Stable. Discharge Instructions: Nonspecific Chest Pain, Chronic Bronchitis, Type 2 Diabetes Mellitus, Diagnosis, Adult, Hypertension, Obesity, Adult, Steps to Quit Smoking, Smoking Hazards, Nonspecific Chest Pain, Absg-ol-Ralj, Hypertension, Ckxs-mt-Didg, How to Take Your Blood Pressure, Jqzp-qi-Ehtb, Aspirin and Your Heart, Type 2 Diabetes Mellitus, Diagnosis, Adult, Oeju-of-Mrpj, Managing Your Hypertension, Type 2 Diabetes Mellitus, Self Care, Adult, Type 2 Diabetes Mellitus, Self Care, Adult, Jtjg-oh-Hnho. Forms are Medication Reconciliation Form, Thank You Letter, Antibiotic Education, Prescription Opioid Use. Follow up: Private Physician; When: 2 - 3 days; Reason: Recheck today's complaints, Continuance of care, Re-evaluation by your physician. Follow up: Nazario Anderson; When: 2 - 3 days; Reason: Recheck today's complaints, Continuance of care, Re-evaluation by your physician. rambo
--- NOTE | 2019-11-17 23:46 | ER ---
Nurse's Notes [facility] Name: Juan Miguel Langston Age: 54 yrs Sex: Male : 1965 Arrival Date: 11/17/2019 Time: 19:36 Bed 5 Private MD: Diagnosis: Other chest pain;Essential (primary) hypertension;Chronic obstructive pulmonary disease, unspecified;Obesity, unspecified;Tobacco abuse counseling;Tobacco use Presentation: 11/16 19:36 Chief complaint: Patient states: chest pain that started today at 3PM. Feels like tl1 elephant sitting on his chest. Coronavirus screen: Patient denies a cough. Patient denies shortness of breath or difficulty breathing. Patient denies measured and/or subjective temperature greater than 100.4F prior to today's visit. Patient denies travel on a cruise ship or to a country the [facility] currently lists as an affected area. Patient denies contact with known and/or suspected case of COVID-19. Ebola Screen: Patient negative for fever greater than or equal to 101.5 degrees Fahrenheit, and additional compatible Ebola Virus Disease symptoms Patient denies exposure to infectious person. Patient denies travel to an Ebola-affected area in the 21 days before illness onset. Initial Sepsis Screen: Does the patient meet any 2 criteria? HR > 90 bpm. Does the patient have a suspected source of infection? No. Patient's initial sepsis screen is negative. Risk Assessment: Do you want to hurt yourself or someone else? Patient reports no desire to harm self or others. Onset of symptoms was November 17, 2019. 19:36 Method Of Arrival: EMS: [facility] tl1 19:36 Acuity: DESTINY 3 tl1 Historical: - Allergies: 20:06 Azithromycin; mg2 20:06 Beta-Blockers (Beta-Adrenergic Bloc; mg2 20:06 Metoprolol Tartrate; mg2 20:12 Azithromycin; tl1 20:12 Beta-Blockers (Beta-Adrenergic Bloc; tl1 20:12 Metoprolol Tartrate; tl1 - Home Meds: 20:12 aspirin 325 mg Oral tab [Active]; lisinopril 40 mg Oral tab once daily [Active]; tl1 metformin 500 mg Oral tab 1 tab 2 times per day [Active]; atorvastatin 40 mg Oral tab 1 tab nightly [Active]; clopidogrel 75 mg Oral tab 1 tab once daily [Active]; Combivent 18-103 mcg/actuation Inhl aero 2 puffs 4 times per day [Active]; isosorbide 60 mg ER daily [Active]; Lasix 20 mg Oral tab once daily [Active]; Livalo 4 mg Oral tab 1 tab nightly [Active]; omeprazole 40 mg Oral cpDR 1 cap once daily [Active]; ProAir HFA 90 mcg/actuation inhalation HFAA 2 puffs every 6 hours [Active]; tramadol 50 mg Oral tab 1 tab every 6 hours for Pain [Active]; - PMHx: 20:06 Angina; COPD; Diabetes - NIDDM; High Cholesterol; Hypertension; Myocardial infarction; mg2 Sleep Apnea; 20:12 Angina; COPD; Diabetes - NIDDM; High Cholesterol; Hypertension; Myocardial infarction; tl1 Sleep Apnea; - Immunization history:: Adult Immunizations unknown. - Social history:: Smoking status: Patient reports the use of cigarette tobacco products, smokes two packs cigarettes per day. - Family history:: not pertinent. Screenin:03 Abuse screen: Denies threats or abuse. Denies injuries from another. Nutritional mg2 screening: No deficits noted. Tuberculosis screening: No symptoms or risk factors identified. Fall Risk. Assessment: 20:02 General: Appears in no apparent distress. comfortable, Behavior is calm, cooperative. mg2 Pain: Complains of pain in chest Pain radiates to left arm Pain currently is 5 out of 10 on a pain scale. Quality of pain is described as aching, Pain began gradually, SINCE 3 PM. Neuro: Level of Consciousness is awake, alert, obeys commands, Oriented to person, place, time, situation. Cardiovascular: Capillary refill < 3 seconds Patient's skin is warm and dry. Respiratory: Airway is patent Respiratory effort is even, unlabored, Respiratory pattern is regular, symmetrical. Respiratory: Reports. GI: No signs and/or symptoms were reported involving the gastrointestinal system. GI: No signs and/or symptoms were reported involving the gastrointestinal system. : No signs and/or symptoms were reported regarding the genitourinary system. EENT: No signs and/or symptoms were reported regarding the EENT system. Derm: Skin is intact, is healthy with good turgor, Skin is pink, warm \T\ dry. normal. Musculoskeletal: Circulation, motion, and sensation intact. Capillary refill < 3 seconds. 20:47 Reassessment: Patient appears in no apparent distress at this time. Patient and/or mg2 family updated on plan of care and expected duration. Pain level reassessed. Patient is alert, oriented x 3, equal unlabored respirations, skin warm/dry/pink. 11/17 00:07 Reassessment: Patient appears in no apparent distress at this time. Patient states mg2 feeling better. Vital Signs: 11/16 19:36 BP 136 / 85; Pulse 99; Resp 17; Temp 99.7(O); Pulse Ox 96% on R/A; Weight 117.93 kg; tl1 Height 5 ft. 6 in. (167.64 cm); Pain 9/10; 20:46 BP 127 / 64; Pulse 88; Resp 18; Pulse Ox 93% on R/A; mg2 22:00 BP 139 / 63; Pulse 76; Resp 17; Pulse Ox 96% on R/A; mt 11/17 00:02 BP 125 / 74; Pulse 86; Resp 18; Temp 98.5; Pulse Ox 94% ; mg2 11/16 19:36 Body Mass Index 41.96 (117.93 kg, 167.64 cm) tl1 ED Course: 11/16 19:36 Patient arrived in ED. ds1 19:37 Lenard Rosario MD is Attending Physician. rambo 19:38 Ovi Mejia RN is Primary Nurse. mg2 19:58 XRAY Chest (1 view) In Process Unspecified. EDMS 20:03 Patient has correct armband on for positive identification. assignment officer on. Pulse mg2 ox on. NIBP on. Door closed. Warm blanket given. 20:04 Triage completed. tl1 20:05 No provider procedures requiring assistance completed. Inserted saline lock: 20 gauge mg2 in right antecubital area, using aseptic technique. Blood collected. by Rosa geoscientist. 20:58 Arm band placed on. mg2 20:58 Patient maintains SpO2 saturation greater than 95% on room air. mg2 23:44 Nazario Anderson MD is Referral Physician. rambo 11/17 00:07 IV discontinued, intact, bleeding controlled, No redness/swelling at site. Pressure mg2 dressing applied. Administered Medications: 11/16 20:46 Drug: NS 0.9% 500 ml Route: IV; Rate: bolus; Site: right antecubital; mg2 11/17 00:01 Follow up: Response: No adverse reaction; IV Status: Completed infusion; IV Intake: mg2 500ml 11/16 21:18 Drug: NS 0.9% 1000 ml Route: IV; Rate: 125 ml/hr; Site: right antecubital; mg2 11/17 00:01 Follow up: Response: No adverse reaction; IV Status: Order to discontinue infusion; IV mg2 Intake: 350ml Intake: 00:01 IV: 500ml; Total: 500ml. mg2 00:01 IV: 350ml; Total: 850ml. mg2 Outcome: 11/16 23:44 Discharge ordered by MD. ricks 11/17 00:08 Discharged to home ambulatory. mg2 Condition: good Discharge instructions given to patient, Instructed on discharge instructions, follow up and referral plans. Demonstrated understanding of instructions, follow-up care. 00:10 Patient left the ED. mg2 Signatures: Dispatcher [employer] Lenard Lindquist MD MD cha Sanford, Shereen ds1 Meghan Duckworth RN RN tl1 Rosa Monk mt, Michele, RN RN mg2
[2019-11-18 00:34] VITALS: BP 125/74; TEMP 98.5; O2SAT 94
--- NOTE | 2019-11-20 07:05 | EKG ---
Test Date: 2019-11-17 Test Time: 22:39:30 Pharmaceutical Operator: MEASUREMENT RESULTS: Intervals: Rate: 83 MS: 148 QRSD: 108 QT: 376 QTc: 441 [place]: P: 63 MS: 148 QRS: 77 T: -54 INTERPRETIVE STATEMENTS: Normal sinus rhythm Incomplete left bundle branch block ST & T wave abnormality, consider inferior ischemia Abnormal ECG Compared to ECG 11/17/2019 19:33:18 Left bundle-branch block now present Myocardial infarct finding no longer present ST (T wave) deviation still present Possible ischemia still present Electronically Signed On 11-20-19 07:00:44 CDT by Nazario Anderson
--- NOTE | 2019-11-20 07:05 | EKG ---
Test Date: 2019-11-17 Test Time: 19:33:18 Spring Fitter Helper: JETT MEASUREMENT RESULTS: Intervals: Rate: 98 DC: 140 QRSD: 94 QT: 336 QTc: 428 [place]: P: 52 DC: 140 QRS: 49 T: -68 INTERPRETIVE STATEMENTS: Normal sinus rhythm Cannot rule out Anterior infarct, age undetermined ST & T wave abnormality, consider inferolateral ischemia Abnormal ECG Compared to ECG 11/03/2019 09:53:04 Myocardial infarct finding now present Possible ischemia now present ST (T wave) deviation still present Electronically Signed On 11-20-19 07:00:46 CDT by Nazario Anderson
== END 2019-11-18 00:10 | disposition home or self-care (01) ==
LOC: ER 19:34
DX: I10 Essential (primary) hypertension (principal); J44.9 Chronic obstructive pulmonary disease, unspecified; E66.9 Obesity, unspecified; Z72.0 Tobacco use; Z71.6 Tobacco abuse counseling; E11.9 Type 2 diabetes mellitus without complications; E78.00 Pure hypercholesterolemia, unspecified; I25.2 Old myocardial infarction; Z79.82 Long term (current) use of aspirin; Z88.1 Allergy status to other antibiotic agents; Z88.8 Allergy status to other drugs, medicaments and biological substances
CPT/HCPCS: 36415; 71045; 80048; 80076; 82947; 83735; 83880; 84484; 85025; 85610; 93005; 96360; 96361; 99285; J7030

== ENCOUNTER 2019-12-01 16:40 | Emergency (ER) | payer SELFPAY ==
--- OUTSIDE RECORDS SUMMARY | 2019-12-01 16:43 | XMS REPORT ---
:1965 Author Organization [facility] t Address [address] [place] [address] Care Team Providers Name Role Phone Singer PANTOJA Attending Clinician Care, Primary Attending Clinician Unavailable Marin PANTOJA Attending Clinician Nic VILCHISP Attending Clinician Doctor Unassigned, Name Attending Clinician Unavailable Problems This patient has no known problems. Allergies, Adverse Reactions, Alerts This patient has no known allergies or adverse reactions. Medications This patient has no known medications. Procedures This patient has no known procedures. Encounters Start End Encounter Admission Attending Care Care Encounter Source Date/Time Date/Time Type Type Clinicians Facility Department ID 2019-11-21 2019-11-21 Emergency LOGAN Dawkins [id number] 08:53:35 11:36:00 Narciso Escamilla [id number] [place] [id number] [place] [id number] 2019-11-01 2019-11-01 Telemedici Luis Butler [id number] 11:44:57 11:45:19 ne Visit [facility] [id number] [facility] [id number] UNIT [id number] [facility] 2019-10-25 2019-10-25 Telemedici LOGAN Funes [id number] 08:02:52 08:22:52 ne Visit Mayela Escamilla [id number] [place] [id number] [place] [id number] [address] 2019-10-24 2019-10-24 Telephone Ekta Lucero [id number] 00:00:00 00:00:00 [facility] [id number] [facility] [id number] UNIT [id number] 2019-10-15 2019-10-15 Emergency LOGAN Dawkins [id number] 08:34:52 10:42:00 Narciso Escamilla [id number] [place] [id number] [place] [id number] 2019-09-04 2019-09-04 Orders Doctor OSEI [id number] 00:00:00 00:00:00 Only UnassignedBOGDAN [id number] [place] [id number] 2019-08-16 2019-08-16 Office CareLuis [id number] 09:15:24 10:27:13 Visit Primary [facility] [id number] [facility] [id number] UNIT [id number] 2019-06-20 2019-06-20 Orders Doctor OSEI [id number] 00:00:00 00:00:00 Only UnassignedBOGDAN [id number] [place] [id number] Results This patient has no known results.
--- OUTSIDE RECORDS SUMMARY | 2019-12-01 16:45 | XMS REPORT | Summary of Care ---
:1965 Author Organization [facility] Address [address] [place] [address] Care Team Providers Name Role Phone JOSEFINA Lucero Primary Care Provider Reason for Referral Radiology Services (Routine) Status Reason Specialty Diagnoses / Referred By Referred To Procedures Contact Contact New Request Diagnostic Diagnoses Uncontrolled hypertension Narciso Dawkins, Radiology Procedures XR CHEST 1 VW DO [address] [facility]. [address] [place] [address] Reason for Visit Reason Comments Leg Pain wendie Auth/Cert Status Reason Specialty Diagnoses / Referred By Referred To Procedures Contact Contact Emergency Medicine [facility] ergency Dept [address] [place] [address] [place] [address] Fax: Encounter Details Date Type Department Care Team Description 11/21/2019 Emergency ADC-Emergency Narciso Dawkins DO Uncontrolled hypertension (Primary Dx); Department [address] [place] [address]. Essential (primary) hypertension; [address] [place] [address] [address] Lower extremity pain, [place] [address] [place], [place] [address] Allergies Active Allergy Reactions Severity Noted Date Comments Azithromycin Swelling High 08/11/2018 Metoprolol Other - See comments 07/11/2018 Lowers heart rate too low documented as of this encounter (statuses as of 11/21/2019) Medications Medication Sig Dispensed Refills Start Date [...] 10/26/2019 Active tabletIndications: mouth daily. Essential hypertension meloxicam 7.5 mg Take 1 tablet by 30 tablet 0 11/21/2019 Active tabletIndications: mouth daily. Lower extremity pain, bilateral documented as of this encounter (statuses as of 11/21/2019) Active Problems Problem Noted Date Morbid obesity with body mass index of 40.0-49.9 07/17 Nonobstructive atherosclerosis of coronary artery /0 02/2018 Essential hypertension 12/07/2013 HLD (hyperlipidemia) 12/07/2013 Borderline diabetes mellitus 12/07/2013 Obesity (BMI 30-39.9) 12/07/2013 Tobacco abuse 12/07/2013 Atypical chest pain 11/20/2013 documented as of this encounter (statuses as of 11/21/2019) Immunizations Name Administration Dates Next Due Influenza [...] last month, have you been in contact Unable to assess 11/21/2019 11:34 AM CDT with someone who was confirmed or suspected to have Coronavirus / COVID-19? documented as of this encounter Last Filed Vital Signs Vital Sign Reading Time Taken Comments Blood Pressure 158/93 11/21/2019 11:20 AM CDT Pulse 88 11/21/2019 11:20 AM CDT Temperature 37 C (98.6 F) 11/21/2019 8:49 AM CDT Respiratory Rate 18 11/21/2019 11:20 AM CDT Oxygen Saturation 94% 11/21/2019 11:20 AM CDT Inhaled Oxygen Concentration - - Weight 120.2 kg (265 lb) 11/21/2019 8:49 AM CDT Height - - Body Mass Index 41.5 10/29/2019 8:28 AM CDT documented in this encounter Discharge Instructions AttachmentsThe following attachments cannot be sent through Care Everywhere. Pain,Medicine for (Croatian)documented in this encounter Plan of Treatment Date Type Specialty Care Team Description 02/18/2020 Office Visit Cardiology Eunice Chang M D [address] [address] 15 [phone] 04/25/2020 Office Visit Pulmonary Disease Mayela Funes, [address] [place] [address] Health Maintenance Due Date Last Done Comments COLONOSCOPY 09/07/2015 Zoster Recombinant Vaccine (SHINGRIX) (2 06/15/2019 019 of 2) DTaP,Tdap,and Td Vaccines (2 - Td) 04/20/2029 04/20/2019 INFLUENZA VACCINE Completed 04/20/2019, 09/19/2013 PNEUMOCOCCAL 0-64 YEARS COMBINED SERIES Completed 04/20/20, 09/19/2013 documented as of this encounter Procedures Procedure Name Priority Date/Time Associated Diagnosis Comme nts CBC WITH DIFFERENTIAL STAT 11/21/2019 9:59 Uncontrolled Re sults for this AM CDT hypertension procedure are i n the results section. N-TERMINAL PRO-BNP STAT 11/21/2019 9:59 Uncontrolled Resul ts for this AM CDT hypertension procedure are i n the results section. CBC WITH DIFFERENTIAL Routine 11/21/2019 9:59 Uncontrolled Re sults for this AM CDT hypertension procedure are i n the results section. COMP. METABOLIC PANEL STAT 11/21/2019 9:59 Uncontrolled Re sults for this (12020) AM CDT hypertension procedure are i n the results section. TROPONIN I STAT 11/21/2019 9:59 Uncontrolled Results for this AM CDT hypertension procedure are i n the results section. XR CHEST 1 VW Routine 11/21/2019 9:24 Uncontrolled Results fo r this AM CDT hypertension procedure are i n the results section. NOTICE OF PRIVACY Routine 11/21/2019 8:43 PRACTICES AM CDT CONSENT/REFUSAL FOR Routine 11/21/2019 8:43 DIAGNOSIS AND AM CDT TREATMENT ASSIGNMENT OF Routine 11/21/2019 8:42 BENEFITS AM CDT documented in this encounter Results CBC WITH DIFFERENTIAL (11/21/2019 9:59 AM CDT) Pathologist Sig nature WBC 9.00 4.20 - 10.70 [facility] 10*3/L [facility] RBC 5.06 4.26 - 5.52 [facility] 10*6/L [facility] HGB 14.4 12.2 - 16.4 [facility] g/dL [facility] HCT 44.2 38.4 - 49.3 % [facility] MCV 87.4 81.7 - 95.6 fL [facility] MCH 28.5 26.1 - 32.7 pg [facility] MCHC 32.6 31.2 - 35.0 [facility] g/dL [facility] RDW-SD 49.4 38.5 - 51.6 fL [facility] RDW-CV 15.6 (H) 12.1 - 15.4 % [facility] PLT 285 150 - 328 [facility] 10*3/L [facility] MPV 10.7 9.8 - 13.0 fL [facility] NRBC/100 WBC 0.0 0.0 - 10.0 /100 [facility] WBCs [facility] NRBC x10^3 <0.01 10*3/L [facility] GRAN MAT (NEUT) % 65.6 % [facility] IMM GRAN % 0.20 % [facility] LYMPH % 24.0 % [facility] MONO % 7.8 % [facility] EOS % 2.0 % [facility] BASO % 0.4 % [facility] GRAN MAT x10^3(ANC) 5.90 1.99 - 6.95 [facility] 10*3/uL [facility] IMM GRAN x10^3 <0.03 0.00 - 0.06 [facility] 10*3/uL [facility] LYMPH x10^3 2.16 1.09 - 3.23 [facility] 10*3/uL [facility] MONO x10^3 0.70 0.36 - 1.02 [facility] 10*3/uL [facility] EOS x10^3 0.18 0.06 - 0.53 [facility] 10*3/uL [facility] BASO x10^3 0.04 0.01 - 0.09 [facility] 10*3/uL [facility] Specimen Blood - HAND, RIGHT Performing Organization Address City/State/Zipcode Phone Number [facility] CLIA: [id number], [address] [place], [place] [address] TROPONIN I (11/21/2019 9:59 AM CDT) Pathologist Sig nature TROPONIN I 0.014 <=0.034 ng/mL [facility] Specimen Blood - HAND, RIGHT Narrative Performed At Equal or Less than 0.034 ng/ml---Normal [facility] Note: Cardiac troponin begins to [...] patient's use of biotin. Performing Organization Address City/State/[facility] Phone Number [facility] CLIA: [id number], [address] [address] N-TERMINAL PRO-BNP (11/21/2019 9:59 AM CDT) Pathologist Sig nature NT-proBNP 65 <=125 pg/mL [facility] Specimen Blood - HAND, RIGHT Narrative Performed At Biotin has been reported to cause a negative [facility] bias, interpret results relative to patient's use of biotin. Performing Organization Address City/State/[facility] Phone Number [facility] CLIA: [id number], [address] [address] COMP. METABOLIC PANEL (62603) (11/21/2019 9:59 AM CDT) Pathologist Sig nature NA 139 135 - 145 [facility] mmol/L [facility] K 4.5 3.5 - 5.0 [facility] mmol/L [facility] CL 102 98 - 108 mmol/L [facility] CO2 TOTAL 28 23 - 31 mmol/L [facility] AGAP 9 2 - 16 [facility] BUN 15 7 - 23 mg/dL [facility] GLUCOSE 128 (H) 70 - 110 mg/dL [facility] CREATININE 0.61 0.60 - 1.25 [facility] mg/dL [facility] TOTAL BILI 0.5 0.1 - 1.1 mg/dL [facility] CALCIUM 9.4 8.6 - 10.6 [facility] mg/dL [facility] T PROTEIN 7.3 6.3 - 8.2 g/dL [facility] ALBUMIN 4.4 3.5 - 5.0 g/dL [facility] ALK PHOS 47 34 - 122 U/L [facility] ALTv 75 (H) 5 - 50 U/L [facility] AST(SGOT) 42 (H) 13 - 40 U/L [facility] eGFR Calculation 137.7 mL/min/1.73m2 [facility] ([facility] [place] [facility] [place]ian) eGFR Calculation 167.0 mL/min/1.73m2 [facility] () [facility] Specimen Blood - HAND, RIGHT Narrative Performed At Association of Glomerular Filtration Rate (GFR) [facility] and Staging of Kidney Disease* [...] tests). Performing Organization Address City/State/Zipcode Phone Number [facility] CLIA: [id number], [address] [place], [place] [address] XR CHEST 1 VW (11/21/2019 9:24 AM CDT) Specimen Impressions Performed At PACS/VR/DOSE Borderline cardiomegaly with mild vascul ar congestion. Preliminary Report Dictated by Resident: Mitzi Chamberlain MD., have reviewed this study and agree with the above report. Narrative Performed At XR CHEST 1 VW PACS/VR/DOSE Comparison: 10/29/2019 History: Shortness of breath Findings: The lungs are well expanded with mild pe rihilar vascular prominence and cephalization of vessels. No pleural eff usion, focal consolidation, or pneumothorax is identified. The cardiomediastinal silhouette is bord otilia enlarged. No acute osseous abnormality is present. Procedure Note [facility], Radiant Results Inft User - 2019 10:03 AM CDT XR CHEST 1 VW Comparison: 10/29/2019 History: Shortness of breath Findings: The lungs are well expanded with mild pe rihilar vascular prominence and cephalization of vessels. No pleural eff usion, focal consolidation, or pneumothorax is identified. The cardiomediastinal silhouette is bord otilia enlarged. No acute osseous abnormality is present. IMPRESSION Borderline cardiomegaly with mild vascul ar congestion. Preliminary Report Dictated by Resident: Mtizi Chamberlain MD., have reviewed this study and agree with the above report. Performing Organization Address City/State/Zipcode Phone Number PACS/VR/DOSE documented in this encounter Visit Diagnoses Diagnosis Uncontrolled hypertension - Primary Unspecified essential hypertension Essential (primary) hypertension Unspecified essential hypertension Lower extremity pain, bilateral documented in this encounter Administered Medications Medication Order MAR Action Action Date Dose Rate Site bumetanide (BUMEX) injection Given 11/21/2019 9:59 AM CDT 1.25 mg 1.25 mg 1.25 mg, Slow IV Push, Q24H, First dose on Tue11/21/19 at 1015, Until Discontinued, Routine documented in this encounter Insurance Payer Benefit Plan Subscriber ID Effective Phone Address Typ e / Group Dates ROSEANNA CONDON [id number] 2019-Prese [phone] [facility] [address] [place] [address] [place] [id number] 2018-Pres [phone] [facility] [address] [place] [address] documented as of this encounter"
--- NOTE | 2019-12-01 17:45 | RAD REPORT ---
EXAM DESCRIPTION: RAD - Chest Single View - 12/01/2019 5:34 pm CLINICAL HISTORY: cough/syncope/MATHEW Chest pain. COMPARISON: Chest Single View dated 11/17/2019; Chest Single View dated 11/03/2019; Chest Single View d ated 10/09/2019; Chest Single View dated 09/13/2019 FINDINGS: Portable technique limits examination quality. The lungs are grossly clear. The heart is normal in size. No displaced fractures. IMPRESSION: No acute intrathoracic process suspected.
--- NOTE | 2019-12-01 17:45 | RAD REPORT ---
EXAM DESCRIPTION: CT - Head Brain Wo Cont - 12/01/2019 5:28 pm CLINICAL HISTORY: SYNCOPE Headache, drowsiness COMPARISON: Head Brain Wo Cont dated 04/28/2019; Head angio dated 10/07/2018 TECHNIQUE: All CT scans are performed using dose optimization technique as appropriate and may inclu de automated exposure control or mA/KV adjustment according to patient size. FINDINGS: No intracranial hemorrhage, hydrocephalus or extra-axial fluid collection.No areas of brai n edema or evidence of midline shift. Mild right-sided mastoid effusion. The calvarium is intact. IMPRESSION: No acute intracranial abnormality. Mild right-sided mastoid effusion.
[2019-12-01 17:48] LABS: Absolute Lymphocytes (CBC) 1.9 K/uL (0.7-4.9); Basophils % 0.8 % (0-1.3); Hematocrit 42.9 % (39.6-49.0); Lymphocytes % 21.7 % (15.3-44.8); MPV 8.8 fL (7.6-11.3)
[2019-12-01 18:05] LABS: BUN Blood Urea Nitrogen 13 mg/dL (7-18); Bicarbonate 29 mmol/L (21-32); Glucose Level 119 mg/dL (74-106); Magnesium 1.9 mg/dL (1.8-2.4); NT PRO-BNP 32 pg/mL (<125); Potassium 3.7 mmol/L (3.5-5.1); Sodium Level 137 mmol/L (136-145); Troponin (Emerg Dept Use Only) < 0.02 ng/mL (0.0-0.045)
[2019-12-01 19:01] VITALS: TEMP 97.9
[2019-12-01 19:04] VITALS: BP 116/56; O2SAT 96
--- NOTE | 2019-12-02 14:07 | EKG ---
Test Date: 2019-12-01 Test Time: 17:21:17 Mill Hand Plate Mill: YAS MEASUREMENT RESULTS: Intervals: Rate: 84 WI: 144 QRSD: 102 QT: 376 QTc: 444 Ocate: P: 46 WI: 144 QRS: 83 T: -38 INTERPRETIVE STATEMENTS: Normal sinus rhythm ST & T wave abnormality, consider inferior ischemia Abnormal ECG Compared to ECG 11/17/2019 22:39:30 Left bundle-branch block no longer present ST (T wave) deviation still present Possible ischemia still present Electronically Signed On 12-02-19 14:06:11 CDT by Nazario Anderson
--- NOTE | 2019-12-03 18:11 | EDPHYS ---
Physician Documentation [facility] Name: Juan Miguel Langston Age: 54 yrs Sex: Male : 1965 Arrival Date: 12/01/2019 Time: 16:43 Bed 20 Private MD: ED Physician Rashard Bardales HPI: 11/30 17:11 This 54 yrs old Male presents to ER via EMS with complaints of Syncope. kdr 17:11 The patient has experienced syncope, became unresponsive, collapsed. Onset: The kdr symptoms/episode began/occurred suddenly, just prior to arrival. Duration: This was a single episode, that lasted an unknown period of time. Context: the episode(s) was witnessed, by family, occurred outdoors, occurred while the patient was at rest, Coughed and then passed out. Just prior to the episode the patient experienced Cough. Associated injury: The patient did not suffer any apparent associated injury. Associated signs and symptoms: The patient has no apparent associated signs or symptoms. Current symptoms: Currently, the patient is not experiencing any symptoms. The patient has experienced a previous episode. The patient has not recently seen a physician. Historical: - Allergies: 16:48 Azithromycin; ss 16:48 Beta-Blockers (Beta-Adrenergic Bloc; ss 16:48 Metoprolol Tartrate; ss - PMHx: 16:48 Angina; COPD; Diabetes - NIDDM; High Cholesterol; Hypertension; Myocardial infarction; ss Sleep Apnea; - Immunization history:: Adult Immunizations up to date. - Social history:: Smoking status: Patient reports the use of cigarette tobacco products, smokes one-half pack cigarettes per day. ROS: 17:11 Constitutional: Negative for fever, chills, and weight loss, Eyes: Negative for injury, kdr pain, redness, and discharge, ENT: Negative for injury, pain, and discharge, Neck: Negative for injury, pain, and swelling, Cardiovascular: Negative for chest pain, palpitations, and edema, Respiratory: Negative for shortness of breath, cough, wheezing, and pleuritic chest pain, Abdomen/GI: Negative for abdominal pain, nausea, vomiting, diarrhea, and constipation, Back: Negative for injury and pain, : Negative for injury, bleeding, discharge, and swelling, MS/Extremity: Negative for injury and deformity, Skin: Negative for injury, rash, and discoloration, Psych: Negative for depression, anxiety, suicide ideation, homicidal ideation, and hallucinations, Allergy/Immunology: Negative for hives, rash, and allergies, Endocrine: Negative for neck swelling, polydipsia, polyuria, polyphagia, and marked weight changes, Hematologic/Lymphatic: Negative for swollen nodes, abnormal bleeding, and unusual bruising. 17:11 Neuro: Positive for headache, syncope, Negative for altered mental status, tremor, visual changes, weakness. Exam: 17:11 Constitutional: This is a well developed, well nourished patient who is awake, alert, kdr and in no acute distress. Head/Face: Normocephalic, atraumatic. Eyes: Pupils equal round and reactive to light, extra-ocular motions intact. Lids and lashes normal. Conjunctiva and sclera are non-icteric and not injected. Cornea within normal limits. Periorbital areas with no swelling, redness, or edema. ENT: Nares patent. No nasal discharge, no septal abnormalities noted. Tympanic membranes are normal and external auditory canals are clear. Oropharynx with no redness, swelling, or masses, exudates, or evidence of obstruction, uvula midline. Mucous membranes moist. Neck: Trachea midline, no thyromegaly or masses palpated, and no cervical lymphadenopathy. Supple, full range of motion without nuchal rigidity, or vertebral point tenderness. No Meningismus. Chest/axilla: Normal chest wall appearance and motion. Nontender with no deformity. No lesions are appreciated. Cardiovascular: Regular rate and rhythm with a normal S1 and S2. No gallops, murmurs, or rubs. Normal PMI, no JVD. No pulse deficits. Respiratory: Lungs have equal breath sounds bilaterally, clear to auscultation and percussion. No rales, rhonchi or wheezes noted. No increased work of breathing, no retractions or nasal flaring. Abdomen/GI: Soft, non-tender, with normal bowel sounds. No distension or tympany. No guarding or rebound. No evidence of tenderness throughout. Back: No spinal tenderness. No costovertebral tenderness. Full range of motion. Skin: Warm, dry with normal turgor. Normal color with no rashes, no lesions, and no evidence of cellulitis. MS/ Extremity: Pulses equal, no cyanosis. Neurovascular intact. Full, normal range of motion. Psych: Awake, alert, with orientation to person, place and time. Behavior, mood, and affect are within normal limits. 17:11 Neuro: Awake and alert, GCS 15, oriented to person, place, time, and situation. Cranial nerves II-XII grossly intact. Motor strength 5/5 in all extremities. Sensory grossly intact. Cerebellar exam normal. Normal gait. 17:11 Neuro: Orientation: is normal, Mentation: is normal, Memory: is normal. Vital Signs: 16:44 BP 151 / 79; Pulse 93; Resp 18; Temp 97.9(TE); Pulse Ox 96% on R/A; Weight 117.93 kg; ss Height 5 ft. 6 in. (167.64 cm); Pain 0/10; 17:55 BP 114 / 65; Pulse 77; Resp 16 S; Pulse Ox 95% on R/A; ca1 18:53 BP 116 / 56; Pulse 76; Resp 15 S; Pulse Ox 96% on R/A; ca1 16:44 Body Mass Index 41.96 (117.93 kg, 167.64 cm) ss MDM: 18:40 Patient medically screened. kdr 18:52 Data reviewed: vital signs, nurses notes, lab test result(s), radiologic studies. kdr Counseling: I had a detailed discussion with the patient and/or guardian regarding: the historical points, exam findings, and any diagnostic results supporting the discharge/admit diagnosis, lab results, radiology results, the need for outpatient follow up. 11/30 17:11 Order name: Basic Metabolic Panel; Complete Time: 18:39 kdr 11/30 17:11 Order name: CBC with Diff; Complete Time: 18:01 kdr 11/30 17:11 Order name: Magnesium; Complete Time: 18:39 kdr 11/30 17:11 Order name: NT PRO-BNP; Complete Time: 18:39 kdr 11/30 17:11 Order name: Troponin (emerg Dept Use Only); Complete Time: 18:39 kdr 11/30 17:11 Order name: XRAY Chest (1 view); Complete Time: 18:01 kdr 11/30 17:11 Order name: EKG; Complete Time: 17:12 kdr 11/30 17:11 Order name: Cardiac monitoring; Complete Time: 17:23 kdr 11/30 17:11 Order name: EKG - Nurse/Tech; Complete Time: 17:23 kdr 11/30 17:11 Order name: IV Saline Lock; Complete Time: 17:42 kdr 11/30 17:11 Order name: Labs collected and sent; Complete Time: 17:42 kdr 11/30 17:11 Order name: O2 Per Protocol; Complete Time: 17:30 kdr 11/30 17:11 Order name: O2 Sat Monitoring; Complete Time: 17:30 kdr 11/30 17:11 Order name: CT Head Brain wo Cont; Complete Time: 18:01 kdr Administered Medications: No medications were administered Disposition: 12/01/19 18:40 Discharged to Home. Impression: Syncope and collapse, Vasovagal Syncope. - Condition is Stable. - Discharge Instructions: Syncope, [id number], Vasovagal Syncope, Adult. - Medication Reconciliation Form, Thank You Letter form. - Follow up: Private Physician; When: 2 - 3 days; Reason: If symptoms return, Further diagnostic work-up, Recheck today's complaints, Continuance of care, Re-evaluation by your physician. - Problem is new. - Symptoms are resolved. Signatures: Dispatcher [employer] EDMS Rashard Bardales MD MD kdr Lilia Roche RN RN ss Khadijah Miranda RN RN ca1 Corrections: (The following items were deleted from the chart) 18:54 18:40 12/01/2019 18:40 Discharged to Home. Impression: Syncope and collapse; Vasovagal ca1 Syncope. Condition is Stable. Forms are Medication Reconciliation Form, Thank You Letter, Antibiotic Education, Prescription Opioid Use. Follow up: Private Physician; When: 2 - 3 days; Reason: If symptoms return, Further diagnostic work-up, Recheck today's complaints, Continuance of care, Re-evaluation by your physician. Problem is new. Symptoms are resolved. kdr
--- NOTE | 2019-12-03 18:11 | ER ---
Nurse's Notes [facility] Name: Juan Miguel Langston Age: 54 yrs Sex: Male : 1965 Arrival Date: 12/01/2019 Time: 16:43 Bed 20 Private MD: Diagnosis: Syncope and collapse;Vasovagal Syncope Presentation: 11/30 16:44 Chief complaint: EMS states: Pt coughed just prior to arrival which caused him to have ss a syncopal episode. Pt was assisted to the ground by family member. Is now A\T\O x4, has no complaints at this time. Coronavirus screen: Proceed with normal triage. Patient denies a cough. Patient denies shortness of breath or difficulty breathing. Patient denies measured and/or subjective temperature greater than 100.4F prior to today's visit. Patient denies travel on a cruise ship or to a country the [facility] currently lists as an affected area. Patient denies contact with known and/or suspected case of COVID-19. Ebola Screen: Patient denies exposure to infectious person. Patient denies travel to an Ebola-affected area in the 21 days before illness onset. Initial Sepsis Screen: Does the patient meet any 2 criteria? No. Patient's initial sepsis screen is negative. Does the patient have a suspected source of infection? No. Patient's initial sepsis screen is negative. Risk Assessment: Do you want to hurt yourself or someone else? Patient reports no desire to harm self or others. Onset of symptoms was December 01, 2019. 16:44 Method Of Arrival: EMS: [facility] 16:44 Acuity: DESTINY 3 ss 16:48 Care prior to arrival: Glucose check: 155. ss Historical: - Allergies: 16:48 Azithromycin; ss 16:48 Beta-Blockers (Beta-Adrenergic Bloc; ss 16:48 Metoprolol Tartrate; ss - PMHx: 16:48 Angina; COPD; Diabetes - NIDDM; High Cholesterol; Hypertension; Myocardial infarction; ss Sleep Apnea; - Immunization history:: Adult Immunizations up to date. - Social history:: Smoking status: Patient reports the use of cigarette tobacco products, smokes one-half pack cigarettes per day. Screenin:57 Abuse screen: Denies threats or abuse. Denies injuries from another. Nutritional ca1 screening: No deficits noted. Tuberculosis screening: No symptoms or risk factors identified. Fall Risk IV access (20 points). Assessment: 16:57 General: Appears in no apparent distress. comfortable, Behavior is calm, cooperative, ca1 appropriate for age. Pain: Complains of pain in forehead, right faith and left faith Pain does not radiate. Pain currently is 9 out of 10 on a pain scale. Neuro: Level of Consciousness is awake, alert, obeys commands, Oriented to person, place, time, situation, Appropriate for age. Neuro: Reports headache a syncopal episode. Cardiovascular: Heart tones S1 S2 present Capillary refill < 3 seconds Rhythm is sinus rhythm. Respiratory: Airway is patent Respiratory effort is even, unlabored, Respiratory pattern is regular, symmetrical, Breath sounds are clear bilaterally. GI: Abdomen is round non-distended, Bowel sounds present X 4 quads. Abd is soft and non tender X 4 quads. : No signs and/or symptoms were reported regarding the genitourinary system. EENT: No signs and/or symptoms were reported regarding the EENT system. Derm: Skin is intact, is healthy with good turgor, Skin is pink, warm \T\ dry. Musculoskeletal: Circulation, motion, and sensation intact. Capillary refill < 3 seconds. 17:55 Reassessment: Patient appears in no apparent distress at this time. No changes from ca1 previously documented assessment. Patient and/or family updated on plan of care and expected duration. Pain level reassessed. Patient is alert, oriented x 3, equal unlabored respirations, skin warm/dry/pink. 18:52 Reassessment: Patient appears in no apparent distress at this time. Patient is alert, ca1 oriented x 3, equal unlabored respirations, skin warm/dry/pink. Vital Signs: 16:44 BP 151 / 79; Pulse 93; Resp 18; Temp 97.9(TE); Pulse Ox 96% on R/A; Weight 117.93 kg; ss Height 5 ft. 6 in. (167.64 cm); Pain 0/10; 17:55 BP 114 / 65; Pulse 77; Resp 16 S; Pulse Ox 95% on R/A; ca1 18:53 BP 116 / 56; Pulse 76; Resp 15 S; Pulse Ox 96% on R/A; ca1 16:44 Body Mass Index 41.96 (117.93 kg, 167.64 cm) ED Course: 16:43 Patient arrived in ED. ss 16:46 Triage completed. ss 16:48 Khadijah Miranda, RN is Primary Nurse. ca1 16:48 Arm band placed on right wrist. 16:56 Rashard Bardales MD is Attending Physician. kdr 16:57 Patient has correct armband on for positive identification. Placed in gown. Bed in low ca1 position. Call light in reach. Side rails up X2. child monitor on. Pulse ox on. NIBP on. 17:29 CT Head Brain wo Cont In Process Unspecified. EDMS 17:34 XRAY Chest (1 view) In Process Unspecified. EDMS 17:40 No provider procedures requiring assistance completed. Initial lab(s) drawn, by tn, ca1 sent to lab. Inserted saline lock: 20 gauge in right antecubital area, using aseptic technique. Blood collected. 18:53 IV discontinued, intact, bleeding controlled, No redness/swelling at site. Pressure ca1 dressing applied. Administered Medications: No medications were administered Outcome: 18:40 Discharge ordered by . kdr 18:53 Discharged to home ambulatory. ca1 18:53 Condition: stable 18:53 Discharge instructions given to patient, Instructed on discharge instructions, follow up and referral plans. Demonstrated understanding of instructions, follow-up care. 18:54 Patient left the ED. ca1 Signatures: Dispatcher [employer] EDPR Rashard Bardales MD MD kdr Smirch, Shelby, RN RN Khadijah Miranda, NICCI RN ca1
== END 2019-12-01 18:54 | disposition home or self-care (01) ==
LOC: ER 16:40
DX: R55 Syncope and collapse (principal); F17.210 Nicotine dependence, cigarettes, uncomplicated; I10 Essential (primary) hypertension; I25.2 Old myocardial infarction; Z88.1 Allergy status to other antibiotic agents; Z88.8 Allergy status to other drugs, medicaments and biological substances
CPT/HCPCS: 36415; 70450; 71045; 80048; 83735; 83880; 84484; 85025; 93005; 99284

== ENCOUNTER 2020-01-18 20:11 | Emergency (ER) | payer SELFPAY ==
--- OUTSIDE RECORDS SUMMARY | 2020-01-18 20:27 | XMS REPORT | Continuity of Care Document ---
:1965 Author Organization [facility] t Address [address] [place] [place] [address] Care Team Providers Name Role Phone Nic ROCHA Attending Clinician Singer PANTOJA Attending Clinician Care, Primary Attending Clinician Unavailable Marin PANTOJA Attending Clinician Doctor Unassigned, Name Attending Clinician Unavailable Problems This patient has no known problems. Allergies, Adverse Reactions, Alerts This patient has no known allergies or adverse reactions. Medications This patient has no known medications. Procedures This patient has no known procedures. Encounters Start End Encounter Admission Attending Care Care Encounter Source Date/Time Date/Time Type Type Clinicians Facility Department ID 2019-12-17 2019-12-17 Telephone Johana Lucerocy ROSEAN[place] [id number] 00:00:00 00:00:00 [place] [id number] [facility] [id number] UNIT [id number] 2019-11-21 2019-11-21 Emergency LOGAN Dawkins [id number] 08:53:35 11:36:00 Narciso Escamilla [id number] [place] [id number] [place] [id number] 2019-11-01 2019-11-01 TelemLuis Nieves [id number] 11:44:57 11:45:19 ne Visit [place] [id number] [facility] [id number] UNIT [id number] 2019-10-25 2019-10-25 Telemedici LOGAN Funes [id number] 08:02:52 08:22:52 ne Visit Mayela Escamilla [id number] [place] [id number] [facility] [phone] [facility]5 [facility] 2019-10-24 2019-10-24 Telephone Ekta Lucero [id number] 00:00:00 00:00:00 [facility] [id number] [facility] [id number] UNIT [id number] 2019-10-15 2019-10-15 Emergency [facility] [id number] 08:34:52 10:42:00 Narciso [place]amilla [id number] [place] [id number] [place] [id number] 2019-09-04 2019-09-04 Orders Doctor FRANZ [id number] 00:00:00 00:00:00 Only UnassignedBOGDAN [id number] [place] [id number] 2019-08-16 2019-08-16 Office CareLuis [id number] 09:15:24 10:27:13 Visit Primary [facility] [id number] [facility] [id number] UNIT [id number] 2019-06-20 2019-06-20 Orders Doctor OSEI [id number] 00:00:00 00:00:00 Only Unassigned BOGDAN [id number] [place] [id number] Results This patient has no known results.
--- OUTSIDE RECORDS SUMMARY | 2020-01-18 20:29 | XMS REPORT | Summary of Care ---
:1965 Author Organization [facility] Address [address] [place] [address] Care Team Providers Name Role Phone JOSEFINA Lucero Primary Care Provider Reason for Referral (Routine) Status Reason Specialty Diagnoses / Referred By Referred To Procedures Contact Contact New Request Cardiology Diagnoses Other chest pain Essential hypertension Ekta Lucero FNP Procedures CONSULT/REFERRAL CARDIOLOGY [address] [place] [address] Reason for Visit Reason Comments Referral/consult Encounter Details Date Type Department Care Team Description 12/17/2019 Telephone [facility] Ekta Lucero FNP Referral/consult [facility] Clin ic [address] [facility] [address] [place] [address] [place] [address] [phone] Allergies Active Allergy Reactions Severity Noted Date Comments Azithromycin Swelling High 08/11/2018 Metoprolol Other - See comments 07/11/2018 Lowers heart rate too low documented as of this encounter (statuses as of 12/17/2019) Medications Medication Sig Dispensed Refills Start Date [...] as of this encounter (statuses as of 12/17/2019) Active Problems Problem Noted Date Morbid obesity with body mass index of 40.0-49.9 07/17 Nonobstructive atherosclerosis of coronary artery 02/2018 Essential hypertension 12/07/2013 HLD (hyperlipidemia) 12/07/2013 Borderline diabetes mellitus 12/07/2013 Obesity (BMI 30-39.9) 12/07/2013 Tobacco abuse 12/07/2013 Atypical chest pain 11/20/2013 documented as of this encounter (statuses as of 12/17/2019) Immunizations Name Administration Dates Next Due Influenza [...] Office Visit Cardiology Eunice Chang M D [address] [place] [address] [place] [address] 15 [phone] 04/25/2020 Office Visit Pulmonary Disease Mayela Funes DO [address] [place] [address] [phone] Health Maintenance Due Date Last Done Comments COLONOSCOPY 09/07/2015 Zoster Recombinant Vaccine (SHINGRIX) (2 06/15/2019 019 of 2) Depression Screening 08/16/2020 08/16/2019 DTaP,Tdap,and Td Vaccines (2 - Td) 04/20/2029 04/20/2019 INFLUENZA VACCINE Completed 04/20/2019, 09/19/2013 PNEUMOCOCCAL 0-64 YEARS COMBINED SERIES Completed 04/20/20 19, 09/19/2013 documented as of this encounter Results Not on filedocumented in this encounter Visit Diagnoses Diagnosis Tobacco dependence - Primary Tobacco use disorder Other chest pain Essential hypertension Unspecified essential hypertension documented in this encounter Insurance Payer Benefit Plan Subscriber ID Effective Phone Address Typ e / Group Dates ROSEANNA CONDON [id number] 2019-Prese [phone] [facility] [address] [place] [address] [place] [id number] 2018-Pres [phone] [facility] ent [address] [place] [id number] documented as of this encounter"
[2020-01-18 20:32] LABS: Absolute Lymphocytes (CBC) 1.8 K/uL (0.7-4.9); Basophils % 1.4 % (0-1.3); Hematocrit 40.4 % (39.6-49.0); Lymphocytes % 24.5 % (15.3-44.8); MPV 9.5 fL (7.6-11.3); RBC Red Blood Cell Count 4.73 M/uL (4.33-5.43)
[2020-01-18 20:34] LABS: Protime INR 1.06
[2020-01-18 20:53] LABS: ALT/SGPT 92 U/L (12-78); AST/SGOT 48 U/L (15-37); Albumin 3.2 g/dL (3.4-5.0); Alkaline Phosphatase 56 U/L (45-117); BUN Blood Urea Nitrogen 18 mg/dL (7-18); Bicarbonate 26 mmol/L (21-32); Bilirubin Direct < 0.1 mg/dL (0-0.2); Bilirubin Total 0.2 mg/dL (0.2-1.0); Glucose Level 224 mg/dL (74-106); Magnesium 1.9 mg/dL (1.8-2.4); NT PRO-BNP 37 pg/mL (<125); Potassium 3.9 mmol/L (3.5-5.1); Protein, Total 6.5 g/dL (6.4-8.2); Sodium Level 141 mmol/L (136-145); Troponin (Emerg Dept Use Only) 0.02 ng/mL (0.0-0.045)
[2020-01-18] MEDS ORDERED: ASPIRIN 81 MG CHEWABLE TABLET ONE (21:18)
[2020-01-18] MEDS ORDERED: FENTANYL CITR 100 MCG/2 ML ONE (21:18)
[2020-01-18] MEDS ORDERED: ONDANSETRON 4 MG/2 ML VIAL ONE (21:19)
--- NOTE | 2020-01-18 23:10 | EDPHYS ---
Physician Documentation [facility] Name: Juan Miguel Langston Age: 54 yrs Sex: Male : 1965 Arrival Date: 01/18/2020 Time: 20:12 Bed 3 Private MD: ED Physician Vincent Hope HPI: 01/17 21:06 This 54 yrs old Male presents to ER via EMS with complaints of Chest pain. jr8 21:06 The patient or guardian reports chest pain that is located primarily in the substernal jr8 area. Onset: acutely, today. The pain radiates to the left arm. Associated signs and symptoms: The patient has no apparent associated signs or symptoms. The chest pain is described as a pressure. Duration: The patient or guardian reports a single episode, that is still ongoing. Modifying factors: The symptoms are alleviated by nothing. the symptoms are aggravated by nothing. Severity of pain: At its worst the pain was moderate in the emergency department the pain is unchanged. It is unknown whether or not the patient has had similar symptoms in the past. The patient has not recently seen a physician. Historical: - Allergies: 20:17 Azithromycin; wh 20:17 Beta-Blockers (Beta-Adrenergic Bloc; wh 20:17 Metoprolol Tartrate; wh - PMHx: 20:17 Angina; COPD; Diabetes - NIDDM; High Cholesterol; Hypertension; Myocardial infarction; wh Sleep Apnea; - PSHx: 20:17 None; wh - Immunization history:: Adult Immunizations up to date. - Social history:: Smoking status: Patient reports the use of cigarette tobacco products, smokes one-half pack cigarettes per day, Patient/guardian denies using alcohol, street drugs. ROS: 21:06 Eyes: Negative for injury, pain, redness, and discharge, ENT: Negative for injury, jr8 pain, and discharge, Neck: Negative for injury, pain, and swelling, Respiratory: Negative for shortness of breath, cough, wheezing, and pleuritic chest pain, Abdomen/GI: Negative for abdominal pain, nausea, vomiting, diarrhea, and constipation, Back: Negative for injury and pain, MS/Extremity: Negative for injury and deformity, Skin: Negative for injury, rash, and discoloration, Neuro: Negative for headache, weakness, numbness, tingling, and seizure. 21:06 Cardiovascular: Positive for chest pain, Negative for edema, orthopnea, palpitations, paroxysmal nocturnal dyspnea. Exam: 21:06 Eyes: Pupils equal round and reactive to light, extra-ocular motions intact. Lids and jr8 lashes normal. Conjunctiva and sclera are non-icteric and not injected. Cornea within normal limits. Periorbital areas with no swelling, redness, or edema. ENT: Nares patent. No nasal discharge, no septal abnormalities noted. Tympanic membranes are normal and external auditory canals are clear. Oropharynx with no redness, swelling, or masses, exudates, or evidence of obstruction, uvula midline. Mucous membranes moist. Neck: Trachea midline, no thyromegaly or masses palpated, and no cervical lymphadenopathy. Supple, full range of motion without nuchal rigidity, or vertebral point tenderness. No Meningismus. Chest/axilla: Normal chest wall appearance and motion. Nontender with no deformity. No lesions are appreciated. Cardiovascular: Regular rate and rhythm with a normal S1 and S2. No gallops, murmurs, or rubs. Normal PMI, no JVD. No pulse deficits. Respiratory: Lungs have equal breath sounds bilaterally, clear to auscultation and percussion. No rales, rhonchi or wheezes noted. No increased work of breathing, no retractions or nasal flaring. Abdomen/GI: Soft, non-tender, with normal bowel sounds. No distension or tympany. No guarding or rebound. No evidence of tenderness throughout. Back: No spinal tenderness. No costovertebral tenderness. Full range of motion. Skin: Warm, dry with normal turgor. Normal color with no rashes, no lesions, and no evidence of cellulitis. MS/ Extremity: Pulses equal, no cyanosis. Neurovascular intact. Full, normal range of motion. Neuro: Awake and alert, GCS 15, oriented to person, place, time, and situation. Cranial nerves II-XII grossly intact. Motor strength 5/5 in all extremities. Sensory grossly intact. Cerebellar exam normal. Normal gait. 01/18 00:06 ECG was reviewed by the Attending Physician. jr8 Vital Signs: 01/17 20:30 BP 139 / 69; Pulse 90; Resp 18; Pulse Ox 94% ; wh 20:31 BP 128 / 68; Pulse 93; Resp 18; Pulse Ox 94% 2 lpm ; Weight 113.4 kg; Height 5 ft. 6 wh in. (167.64 cm); 21:47 BP 136 / 66; Pulse 86; Resp 18; Pulse Ox 95% ; 23:00 BP 142 / 61; Pulse 85; Resp 18; Pulse Ox 96% ; 01/18 00:00 BP 127 / 64; Pulse 86; Resp 18; Pulse Ox 95% ; 01/17 20:31 Body Mass Index 40.35 (113.40 kg, 167.64 cm) MDM: 01/17 21:05 Patient medically screened. jr8 23:09 The patient was given aspirin in the Emergency Department. Data reviewed: vital signs, jr8 nurses notes, lab test result(s), EKG, radiologic studies, plain films. Data interpreted: Pulse oximetry: on room air is 95 %. Interpretation: normal. 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 Special discussion: Based on the patient's history, exam, and Dx evaluation, there is no indication for emergent intervention or inpatient Tx. It is understood by the patient/guardian that if the Sx's persist or worsen they need to return immediately for re-evaluation. ED course: Patient feeling better. X2 troponin both negative. Rest of labs stable along with ECG and imaging. Will d/c home to f/u with cardiology . 01/17 20:13 Order name: Basic Metabolic Panel; Complete Time: 21: 01/17 20:13 Order name: CBC with Diff; Complete Time: 21: 01/17 20:13 Order name: LFT's; Complete Time: : 01/17 20:13 Order name: Magnesium; Complete Time: : 01/17 20:13 Order name: NT PRO-BNP; Complete Time: 21: 01/17 20:13 Order name: PT-INR; Complete Time: 21: 01/17 20:13 Order name: Troponin (emerg Dept Use Only); Complete Time: 21: 01/17 20:13 Order name: XRAY Chest (1 view) 01/17 20:13 Order name: EKG; Complete Time: 20: 01/17 20:13 Order name: Cardiac monitoring; Complete Time: 01/17 22:17 Order name: Troponin (emerg Dept Use Only); Complete Time: 23:08 jr8 01/17 20:13 Order name: EKG - Nurse/Tech; Complete Time: :24 01/17 20:13 Order name: IV Saline Lock; Complete Time: : 01/17 20:13 Order name: Labs collected and sent; Complete Time: : 01/17 20:13 Order name: O2 Per Protocol; Complete Time: : 01/17 20:13 Order name: O2 Sat Monitoring; Complete Time: EC/18 00:06 Rate is 100 beats/min. Rhythm is regular, Normal Sinus Rhythm. QRS [place] is Normal. [place] jr8 interval is normal at 134 msec. QRS interval is normal at 102 msec. QT interval is normal at 448 msec. No Q waves. T waves are Inverted in leads II, III, aVF, V6. No ST changes noted. Clinical impression: NSR w/ Non-specific ST/T Changes. Interpreted by me. Reviewed by me. Administered Medications: 01/17 21:14 Drug: fentaNYL (PF) 50 mcg {Note: RASS 0.} Route: IVP; Site: left hand; 21:55 Follow up: Response: No adverse reaction; Pain is decreased; RASS: Alert and Calm (0) 21:16 Drug: Zofran (Ondansetron) 4 mg Route: IVP; Site: left hand; 21:55 Follow up: Response: No adverse reaction :17 Drug: Aspirin Chewable Tablet 324 mg Route: PO; 21:55 Follow up: Response: No adverse reaction Disposition: 01/18 00:39 Co-signature as Attending Physician, Vincent Hope MD. pkl Disposition: 01/18/20 23:10 Discharged to Home. Impression: Chest pain, unspecified. - Condition is Stable. - Discharge Instructions: Nonspecific Chest Pain. - Medication Reconciliation Form, Thank You Letter, Antibiotic Education, Prescription Opioid Use form. - Follow up: Nazario Anderson MD; When: 2 - 3 days; Reason: Recheck today's complaints, Continuance of care, Re-evaluation by your physician. - Problem is new. - Symptoms have improved. Signatures: Dispatcher [employer] EDVincent Clemons MD MD pkl Roszak, Josh, PA PA jr8 [place] Corrections: (The following items were deleted from the chart) 00:06 01/17 23:10 01/18/2020 23:10 Discharged to Home. Impression: Chest pain, unspecified. Condition is Stable. Forms are Medication Reconciliation Form, Thank You Letter, Antibiotic Education, Prescription Opioid Use. Follow up: Nazario Anderson; When: 2 - 3 days; Reason: Recheck today's complaints, Continuance of care, Re-evaluation by your physician. Problem is new. Symptoms have improved. jr8
--- NOTE | 2020-01-18 23:10 | ER ---
Nurse's Notes [facility] Name: Juan Miguel Langston Age: 54 yrs Sex: Male : 1965 Arrival Date: 01/18/2020 Time: 20:12 Bed 3 Private MD: Diagnosis: Chest pain, unspecified Presentation: 01/17 20:13 Chief complaint: EMS states: was toned for chest pain radiating to left arm. Pt was wh eating when the pain started. States he has Hx of [place] and pain is the same. 0.4 Nitro was given and Pt states pain eased up a little bit. Pt states Hx of blockage 30% on left and 50% on right. Coronavirus screen: Patient reports a cough. Patient reports shortness of breath or difficulty breathing. Patient denies measured and/or subjective temperature greater than 100.4F prior to today's visit. Patient denies travel on a cruise ship or to a country the [facility] currently lists as an affected area. Patient denies contact with known and/or suspected case of COVID-19. Patient instructed to continue to wear a mask when interacting with others. Patient moved to private room, placed in contact and droplet isolation with eye protection until further assessment. Ebola Screen: Patient negative for fever greater than or equal to 101.5 degrees Fahrenheit, and additional compatible Ebola Virus Disease symptoms Patient denies exposure to infectious person. Initial Sepsis Screen: Does the patient meet any 2 criteria? HR > 90 bpm. Does the patient have a suspected source of infection? No. Patient's initial sepsis screen is negative. Risk Assessment: Do you want to hurt yourself or someone else? Patient reports no desire to harm self or others. Onset of symptoms was January 18, 2020. Care prior to arrival: Medication(s) given: Nitroglycerin, 0.4 mg SL x 1, IV initiated. 20 GA, in the left antecubital area, Glucose check: 170. 20:13 Method Of Arrival: EMS: [facility] 20:13 Acuity: DESTINY 3 Historical: - Allergies: 20:17 Azithromycin; 20:17 Beta-Blockers (Beta-Adrenergic Bloc; 20:17 Metoprolol Tartrate; - PMHx: 20:17 Angina; COPD; Diabetes - NIDDM; High Cholesterol; Hypertension; Myocardial infarction; Sleep Apnea; - PSHx: 20:17 None; wh - Immunization history:: Adult Immunizations up to date. - Social history:: Smoking status: Patient reports the use of cigarette tobacco products, smokes one-half pack cigarettes per day, Patient/guardian denies using alcohol, street drugs. Screenin:17 Abuse screen: Denies threats or abuse. Denies injuries from another. Nutritional wh screening: No deficits noted. Tuberculosis screening: No symptoms or risk factors identified. Fall Risk None identified. Assessment: 20:20 General: Appears uncomfortable, Behavior is appropriate for age. Pain: Complains of ea pain in chest. Neuro: Level of Consciousness is awake, alert, obeys commands, Oriented to person, place, time, situation. Cardiovascular: Patient's skin is warm and dry. Respiratory: Airway is patent Respiratory effort is even, unlabored, Respiratory pattern is regular, symmetrical. Derm: Skin is pink, warm \T\ dry. 21:30 Reassessment: Patient and/or family updated on plan of care and expected duration. Pain ea level reassessed. Patient is alert, oriented x 3, equal unlabored respirations, skin warm/dry/pink. 22:30 Reassessment: Patient and/or family updated on plan of care and expected duration. Pain ea level reassessed. Patient is alert, oriented x 3, equal unlabored respirations, skin warm/dry/pink. 01/18 00:00 Reassessment: Patient appears in no apparent distress at this time. No changes from previously documented assessment. Patient and/or family updated on plan of care and expected duration. Pain level reassessed. Patient is alert, oriented x 3, equal unlabored respirations, skin warm/dry/pink. Patient states feeling better. Patient states symptoms have improved. 00:06 Reassessment: Pt was provided Taxi for transport. Vital Signs: 01/17 20:30 BP 139 / 69; Pulse 90; Resp 18; Pulse Ox 94% ; wh 20:31 BP 128 / 68; Pulse 93; Resp 18; Pulse Ox 94% 2 lpm ; Weight 113.4 kg; Height 5 ft. 6 wh in. (167.64 cm); 21:47 BP 136 / 66; Pulse 86; Resp 18; Pulse Ox 95% ; ea 23:00 BP 142 / 61; Pulse 85; Resp 18; Pulse Ox 96% ; wh 01/18 00:00 BP 127 / 64; Pulse 86; Resp 18; Pulse Ox 95% ; 01/17 20:31 Body Mass Index 40.35 (113.40 kg, 167.64 cm) ED Course: 01/17 20:12 Patient arrived in ED. 20:16 Triage completed. 20:17 Arm band placed on right wrist. 20:17 Patient has correct armband on for positive identification. Placed in gown. Bed in low wh position. Call light in reach. Side rails up X 1. jewelry mechanic on. Pulse ox on. NIBP on. 20:17 Maintain EMS IV. Dressing intact. Site clean \T\ dry. 20:18 Inserted saline lock: 20 gauge in left hand, using aseptic technique. wendy 20:23 Linden Lama is Primary Nurse. 20:32 Rigoberto Godoy PA is PHCP. [facility] 20:32 Vincent Hope MD is Attending Physician. [facility] 21:44 XRAY Chest (1 view) In Process Unspecified. EDMS 23:09 Nazario Anderson MD is Referral Physician. [facility] 01/18 00:02 No provider procedures requiring assistance completed. IV discontinued, intact, bleeding controlled, No redness/swelling at site. Administered Medications: 01/17 21:14 Drug: fentaNYL (PF) 50 mcg {Note: RASS 0.} Route: IVP; Site: left hand; 21:55 Follow up: Response: No adverse reaction; Pain is decreased; RASS: Alert and Calm (0) 21:16 Drug: Zofran (Ondansetron) 4 mg Route: IVP; Site: left hand; 21:55 Follow up: Response: No adverse reaction :17 Drug: Aspirin Chewable Tablet 324 mg Route: PO; 21:55 Follow up: Response: No adverse reaction Outcome: 23:10 Discharge ordered by . [facility] 01/18 00:02 Discharged to home ambulatory. Condition: stable Discharge instructions given to patient, Instructed on discharge instructions, follow up and referral plans. POC Demonstrated understanding of instructions, follow-up care, POC 00:06 Patient left the ED. Signatures: Dispatcher [employer] EDDC Rigoberto Godoy PA PA [facility] Lopez, Ejimy, RN RN ea Habalo, Winsy wh
[2020-01-19 01:28] VITALS: BP 127/64; O2SAT 95
--- NOTE | 2020-01-19 11:27 | RAD REPORT ---
EXAM DESCRIPTION: Jayda Single View01/18/2020 9:43 pm CLINICAL HISTORY: Chest pain COMPARISON: November 2019 FINDINGS: The left base is hazy The remainder of the lungs appear clear of acute infiltrate. The heart is normal size IMPRESSION: Left base is hazy probably secondary to overlying soft tissue. An infiltrate can have a similar appearance. If Clinically indicated further evaluation with PA and lateral chest series could be obtained
--- NOTE | 2020-01-20 08:11 | EKG ---
Test Date: 2020-01-18 Test Time: 20:22:29 [place] Supervisor: CARLA MEASUREMENT RESULTS: Intervals: Rate: 100 OK: 134 QRSD: 102 QT: 348 QTc: 448 [place]: P: 38 OK: 134 QRS: 51 T: -60 INTERPRETIVE STATEMENTS: Normal sinus rhythm ST & T wave abnormality, consider inferior ischemia Abnormal ECG Compared to ECG 12/01/2019 17:21:17 No significant changes Electronically Signed On 01-20-20 08:09:06 CDT by Nazario Anderson
== END 2020-01-19 00:06 | disposition home or self-care (01) ==
LOC: ER 20:11
DX: R07.9 Chest pain, unspecified (principal); F17.210 Nicotine dependence, cigarettes, uncomplicated; I10 Essential (primary) hypertension; I25.2 Old myocardial infarction; Z88.1 Allergy status to other antibiotic agents; Z88.8 Allergy status to other drugs, medicaments and biological substances
CPT/HCPCS: 36415; 71045; 80048; 80076; 83735; 83880; 84484; 85025; 85610; 93005; 96374; 96375; 99284; J2405; J3010

== ENCOUNTER 2020-02-03 15:46 | Inpatient (IN) | payer SELFPAY ==
--- OUTSIDE RECORDS SUMMARY | 2020-02-03 15:48 | XMS REPORT | Continuity of Care Document ---
:1965 Author Organization [facility] t Address [address] [place] [place] [address] Care Team Providers Name Role Phone Nic [...] 2019-12-17 2019-12-17 Telephone Johana Lucerocy ROSEANNA [id number] 00:00:00 00:00:00 [place] [id number] [facility] [id number] UNIT [id number] 2019-11-21 2019-11-21 Emergency LOGAN Dawkins [id number] 08:53:35 11:36:00 Narciso [place] [id number] [place] [id number] [place] [id number] [id number] 2019-11-01 2019-11-01 TelemLuis Nieves [id number] 11:44:57 11:45:19 ne Visit [place] [id number] [facility] [id number] UNIT [id number] 2019-10-25 2019-10-25 Telemedici LOGAN Funes [id number] 08:02:52 08:22:52 ne Visit Mayela Escamilla [id number] [place] [id number] [facility] [phone] critical access hospital5 [facility] 2019-10-24 2019-10-24 Telephone Ekta Lucero [id number] 00:00:00 00:00:00 [facility] [id number] HEALTH [id number] UNIT [id number] 2019-10-15 2019-10-15 Emergency RUST [id number] 08:34:52 10:42:00 Narciso [place]amilla [id number] [place] [id number] [place] [id number] [id number] 2019-09-04 2019-09-04 Orders Doctor FRANZ [id number] 00:00:00 00:00:00 Only UnassignedBOGDAN [id number] [place] [id number] 2019-08-16 2019-08-16 Office CareLuis [id number] 09:15:24 10:27:13 Visit Primary [facility] [id number] [facility] [id number] UNIT [id number] 2019-06-20 2019-06-20 Orders Doctor OSEI [id number] 00:00:00 00:00:00 Only Unassigned BOGDAN [id number] [place] [id number] [id number] Results This patient has no known results.
[2020-02-03 17:14] LABS: Protime INR 1.06
[2020-02-03 17:15] LABS: Absolute Lymphocytes (CBC) 1.6 K/uL (0.7-4.9); Basophils % 0.9 % (0-1.3); Hematocrit 43.3 % (39.6-49.0); Lymphocytes % 25.6 % (15.3-44.8); MPV 9.5 fL (7.6-11.3); RBC Red Blood Cell Count 5.02 M/uL (4.33-5.43)
[2020-02-03 17:33] LABS: ALT/SGPT 103 U/L (12-78); AST/SGOT 40 U/L (15-37); Albumin 3.3 g/dL (3.4-5.0); Alkaline Phosphatase 54 U/L (45-117); BUN Blood Urea Nitrogen 13 mg/dL (7-18); Bicarbonate 30 mmol/L (21-32); Bilirubin Direct < 0.1 mg/dL (0-0.2); Bilirubin Total 0.2 mg/dL (0.2-1.0); Glucose Level 160 mg/dL (74-106); Magnesium 2.1 mg/dL (1.8-2.4); NT PRO-BNP 27 pg/mL (<125); Potassium 3.9 mmol/L (3.5-5.1); Protein, Total 6.8 g/dL (6.4-8.2); Sodium Level 141 mmol/L (136-145); Troponin (Emerg Dept Use Only) < 0.02 ng/mL (0.0-0.045)
--- NOTE | 2020-02-03 17:39 | EDPHYS ---
Physician Documentation [facility] Name: Juan Miguel Langston Age: 54 yrs Sex: Male : 1965 Arrival Date: 02/03/2020 Time: 15:56 Bed 16 Private MD: ED Physician Jonathan Suarez HPI: 02/02 16:10 This 54 yrs old Male presents to ER via EMS with complaints of chest pain sob ma2 . 16:10 The patient or guardian reports chest pain that is located primarily in the substernal ma2 area. Onset: gradually, 1 day(s) ago. Associated signs and symptoms: Pertinent positives: shortness of breath, Pertinent negatives: cough, headache, lightheadedness, syncope. Duration: The patient or guardian reports multiple episodes, that have now resolved. Severity of pain: At its worst the pain was mild in the emergency department the pain is unchanged. Historical: - Allergies: 16:02 Azithromycin; ph 16:02 Beta-Blockers (Beta-Adrenergic Bloc; ph 16:02 Metoprolol Tartrate; ph - Home Meds: 16:02 aspirin 325 mg Oral tab [Active]; atorvastatin 40 mg Oral tab 1 tab nightly [Active]; ph clopidogrel 75 mg Oral tab 1 tab once daily [Active]; Combivent 18-103 mcg/actuation Inhl aero 2 puffs 4 times per day [Active]; isosorbide 60 mg ER daily [Active]; Lasix 20 mg Oral tab once daily [Active]; lisinopril 40 mg Oral tab once daily [Active]; Livalo 4 mg Oral tab 1 tab nightly [Active]; metformin 500 mg Oral tab 1 tab 2 times per day [Active]; omeprazole 40 mg Oral cpDR 1 cap once daily [Active]; ProAir HFA 90 mcg/actuation inhalation HFAA 2 puffs every 6 hours [Active]; tramadol 50 mg Oral tab 1 tab every 6 hours for Pain [Active]; - PMHx: 16:02 Angina; COPD; Diabetes - NIDDM; High Cholesterol; Hypertension; Myocardial infarction; ph Sleep Apnea; - PSHx: 16:02 None; ph - Immunization history:: Adult Immunizations unknown. - Social history:: Smoking status: Patient reports the use of cigarette tobacco products, smokes one-half pack cigarettes per day, Patient/guardian denies using alcohol, street drugs, The patient lives with family. - Family history:: not pertinent. ROS: 16:10 Constitutional: Negative for fever, chills, and weight loss. ma2 16:10 All other systems are negative. Exam: 16:10 Constitutional: This is a well developed, well nourished patient who is awake, alert, ma2 and in no acute distress. ENT: Nares patent. No nasal discharge, no septal abnormalities noted. Tympanic membranes are normal and external auditory canals are clear. Oropharynx with no redness, swelling, or masses, exudates, or evidence of obstruction, uvula midline. Mucous membranes moist. Neck: Trachea midline, no thyromegaly or masses palpated, and no cervical lymphadenopathy. Supple, full range of motion without nuchal rigidity, or vertebral point tenderness. No Meningismus. Chest/axilla: Normal chest wall appearance and motion. Nontender with no deformity. No lesions are appreciated. Cardiovascular: Regular rate and rhythm with a normal S1 and S2. No gallops, murmurs, or rubs. Normal PMI, no JVD. No pulse deficits. Respiratory: basal rales both Lungs, no wheezes noted. rr is 30, no retractions or nasal flaring. Abdomen/GI: Soft, non-tender, with normal bowel sounds. No distension or tympany. No guarding or rebound. No evidence of tenderness throughout. Skin: Warm, dry with normal turgor. Normal color with no rashes, no lesions, and no evidence of cellulitis. MS/ Extremity: Pulses equal, no cyanosis. Neurovascular intact. Full, normal range of motion. Neuro: Awake and alert, GCS 15, oriented to person, place, time, and situation. Cranial nerves II-XII grossly intact. Motor strength 5/5 in all extremities. Sensory grossly intact. Cerebellar exam normal. Normal gait. Vital Signs: 15:57 BP 149 / 86; Pulse 83; Resp 18; Temp 97.8; Pulse Ox 94% on R/A; Weight 117.93 kg; ph Height 5 ft. 6 in. (167.64 cm); 18:30 BP 138 / 60; Pulse 76; Resp 18; Pulse Ox 96% on 2 lpm NC; ph 19:33 BP 144 / 57; Pulse 71; Resp 16; Pulse Ox 95% on 2 lpm NC; Pain 0/10; ph 15:57 Body Mass Index 41.96 (117.93 kg, 167.64 cm) ph MDM: 15:56 Patient medically screened. ma2 17:37 Differential diagnosis: abnormal EKG, gastroesophageal reflux disease (GERD), stable ma2 angina, unstable angina. HEART Score: History: Moderately Suspicious (1), ECG: Non specific repolarization disturbance / LBTB / PM (1), Age: > 45 and < 65 years (1), Risk Factors: > or = 3 Risk factors for atherosclerotic disease (2), Troponin: < or = 1 x Normal Limit (0), Total Score = 5. The patient was given aspirin in the Emergency Department. Data reviewed: vital signs, nurses notes. Counseling: I had a detailed discussion with the patient and/or guardian regarding: the historical points, exam findings, and any diagnostic results supporting the discharge/admit diagnosis, the presence of at least one elevated blood pressure reading (>120/80) during this emergency department visit, the need for outpatient follow up. ED course: discussed with Ovidio . 02/02 16:13 Order name: Basic Metabolic Panel; Complete Time: 17:35 co2 02/02 16:13 Order name: CBC with Diff; Complete Time: 17:35 co2 02/02 16:13 Order name: Hepatic Function; Complete Time: 17:35 ma2 02/02 16:13 Order name: Magnesium; Complete Time: 17:35 ma2 02/02 16:13 Order name: NT PRO-BNP; Complete Time: 17:35 co2 02/02 16:13 Order name: Protime (+inr); Complete Time: 17:35 co2 02/02 16:13 Order name: Troponin (emerg Dept Use Only); Complete Time: 17:35 co2 02/02 18:17 Order name: ABG Arterial Blood Gas EDNM 02/02 18:17 Order name: CBC with Automated Diff EDNM 02/02 18:17 Order name: CBC with Automated Diff EDMS 02/02 18:17 Order name: Comprehensive Metabolic Panel EDNM 02/02 18:17 Order name: Comprehensive Metabolic Panel [facility] 02/02 18:18 Order name: CORONAVIRUS EDNM 02/02 18:28 Order name: Basic Metabolic Panel [facility] 02/02 16:13 Order name: XRAY Chest (1 view) [facility] 02/02 16:13 Order name: EKG; Complete Time: 16:14 co2 02/02 18:17 Order name: CONS Pharmacy Consult [facility] 02/02 18:17 Order name: NPO [facility] 02/02 18:28 Order name: Lipid Profile [facility] 02/02 18:28 Order name: Lipid Profile [facility] 02/02 18:28 Order name: Troponin I [facility] 02/02 18:28 Order name: Troponin I [facility] 02/02 18:28 Order name: Troponin I [facility] 02/02 18:28 Order name: Troponin I [facility] 02/02 18:29 Order name: Thyroid Stimulating Hormone [facility] 02/02 20:18 Order name: COVID-19 [facility] 02/02 21:02 Order name: CORONAVIRUS [facility] 02/02 16:13 Order name: Cardiac monitoring; Complete Time: 16:28 [facility] 02/02 16:13 Order name: EKG - Nurse/Tech; Complete Time: 17:24 [facility] 02/02 16:13 Order name: IV Saline Lock; Complete Time: 17:24 [facility] 02/02 16:13 Order name: Labs collected and sent; Complete Time: 17:24 co2 02/02 16:13 Order name: O2 Per Protocol; Complete Time: 16:29 co2 02/02 16:13 Order name: O2 Sat Monitoring; Complete Time: 16:29 ma2 Administered Medications: 17:45 Drug: Aspirin 325 mg Route: PO; ph 19:37 Follow up: Response: No adverse reaction ph 17:45 Drug: Lasix 60 mg Route: IVP; Site: left antecubital; ph 19:35 Follow up: Response: No adverse reaction ph 19:37 Follow up: Response: No adverse reaction ph 18:39 Not Given (Other Intervention Used): Nitroglycerin 0.4 mg Sublingual once; every five ph minute if needed x3 Disposition: 02/03/20 17:38 Hospitalization ordered by Will Burgess for Observation. Preliminary diagnosis is Other chest pain. - Bed requested for Telemetry/MedSurg (observation). - Status is Observation. mt2 - Condition is Stable. - Problem is new. - Symptoms are unchanged. Signatures: Dispatcher [employer] [facility] Gris Ivy RN RN Lilia Roche RN RN ss Frida Leyva RN RN ph Jonathan Suarez MD MD ma2 Arabella Sandoval RN RN mt2 Corrections: (The following items were deleted from the chart) 17:42 17:38 Hospitalization Ordered by Steve Bowden DO for Observation. Preliminary ma2 diagnosis is Other chest pain. Bed requested for Telemetry/MedSurg (observation). Status is Observation. Condition is Stable. Problem is new. Symptoms are unchanged. ma2 18:33 17:42 02/03/2020 17:38 Hospitalization Ordered by Will Burgess MD for Observation. ss Preliminary diagnosis is Other chest pain. Bed requested for Telemetry/MedSurg (observation). Status is Observation. Condition is Stable. Problem is new. Symptoms are unchanged. ma2 20:18 18:33 02/03/2020 17:38 Hospitalization Ordered by Will Burgess MD for Observation. mw Preliminary diagnosis is Other chest pain. Bed requested for Telemetry/MedSurg (observation). Status is Observation. Condition is Stable. Problem is new. Symptoms are unchanged. ss 21:15 20:18 02/03/2020 17:38 Hospitalization Ordered by Will Burgess MD for Observation. mt2 Preliminary diagnosis is Other chest pain. Bed requested for Telemetry/MedSurg (observation). Status is Observation. Condition is Stable. Problem is new. Symptoms are unchanged. mw
--- NOTE | 2020-02-03 17:39 | ER ---
[facility] Name[facility] Juan Miguel Langston Age: 54 yrs Sex: Male : 1965 Arrival Date: 02/03/2020 Time: 15:56 Bed 16 Private MD: Diagnosis: Other chest pain Presentation: 02/02 15:57 Chief complaint: EMS states: Pt c/o chest pain and SOB, hx of MS and HTN, denies N/V or ph fever, stated to EMS that he did not take his BP medication this morning. Coronavirus screen: Client denies travel out of the [place] in the last 14 days. At this time, the client does not indicate any symptoms associated with coronavirus-19. Ebola Screen: No symptoms or risks identified at this time. Initial Sepsis Screen: Does the patient meet any 2 criteria? No. Patient's initial sepsis screen is negative. Does the patient have a suspected source of infection? No. Patient's initial sepsis screen is negative. Risk Assessment: Do you want to hurt yourself or someone else? Patient reports no desire to harm self or others. Onset of symptoms was February 03, 2020. 15:57 Method Of Arrival: EMS: [facility] ph 15:57 Acuity: DESTINY 3 ph Historical: - Allergies: 16:02 Azithromycin; ph 16:02 Beta-Blockers (Beta-Adrenergic Bloc; ph 16:02 Metoprolol Tartrate; ph - Home Meds: 16:02 aspirin 325 mg Oral tab [Active]; atorvastatin 40 mg Oral tab 1 tab nightly [Active]; ph clopidogrel 75 mg Oral tab 1 tab once daily [Active]; Combivent 18-103 mcg/actuation Inhl aero 2 puffs 4 times per day [Active]; isosorbide 60 mg ER daily [Active]; Lasix 20 mg Oral tab once daily [Active]; lisinopril 40 mg Oral tab once daily [Active]; Livalo 4 mg Oral tab 1 tab nightly [Active]; metformin 500 mg Oral tab 1 tab 2 times per day [Active]; omeprazole 40 mg Oral cpDR 1 cap once daily [Active]; ProAir HFA 90 mcg/actuation inhalation HFAA 2 puffs every 6 hours [Active]; tramadol 50 mg Oral tab 1 tab every 6 hours for Pain [Active]; - PMHx: 16:02 Angina; COPD; Diabetes - NIDDM; High Cholesterol; Hypertension; Myocardial infarction; ph Sleep Apnea; - PSHx: 16:02 None; ph - Immunization history:: Adult Immunizations unknown. - Social history:: Smoking status: Patient reports the use of cigarette tobacco products, smokes one-half pack cigarettes per day, Patient/guardian denies using alcohol, street drugs, The patient lives with family. - Family history:: not pertinent. Screenin:02 Abuse screen: Denies threats or abuse. Denies injuries from another. Nutritional ph screening: No deficits noted. Tuberculosis screening: No symptoms or risk factors identified. Fall Risk None identified. Assessment: 16:03 General: Appears in no apparent distress. comfortable, Behavior is calm, cooperative, ph appropriate for age, Denies fever, feeling ill. Pain: Complains of pain in mid-sternal area. Neuro: Level of Consciousness is awake, alert, obeys commands, Oriented to person, place, time, situation. Cardiovascular: Reports chest pain, shortness of breath, Capillary refill < 3 seconds in bilateral fingers Rhythm is sinus rhythm Chest pain is located in substernal area. Respiratory: Reports shortness of breath worse when lying down Airway is patent Respiratory effort is even, unlabored, Respiratory pattern is regular, symmetrical. GI: No signs and/or symptoms were reported involving the gastrointestinal system. Derm: Skin is intact, is healthy with good turgor, Skin is pink, warm \T\ dry. Musculoskeletal: Circulation, motion, and sensation intact. Range of motion: intact in all extremities. 17:30 Reassessment: Patient appears in no apparent distress at this time. Patient and/or ph family updated on plan of care and expected duration. Pain level reassessed. Pt asleep w/ snoring respirations, Spo2 decreased to 85% when asleep, pt placed on NC, other VSS. 18:30 Reassessment: Patient appears in no apparent distress at this time. No changes from ph previously documented assessment. Patient and/or family updated on plan of care and expected duration. Pain level reassessed. 19:33 Reassessment: Patient and/or family updated on plan of care and expected duration. Pain ph level reassessed. Patient is alert, oriented x 3, equal unlabored respirations, skin warm/dry/pink. Patient denies pain at this time. Reassessment: SPOKE WITH DR. DURON AND INFORMED HIM OF RT RECOMMENDATION FOR BIPAP. PER MD OK TO START PT ON BIPAP. General: Appears in no apparent distress. comfortable, Behavior is cooperative. Vital Signs: 15:57 BP 149 / 86; Pulse 83; Resp 18; Temp 97.8; Pulse Ox 94% on R/A; Weight 117.93 kg; ph Height 5 ft. 6 in. (167.64 cm); 18:30 BP 138 / 60; Pulse 76; Resp 18; Pulse Ox 96% on 2 lpm NC; ph 19:33 BP 144 / 57; Pulse 71; Resp 16; Pulse Ox 95% on 2 lpm NC; Pain 0/10; ph 15:57 Body Mass Index 41.96 (117.93 kg, 167.64 cm) ph ED Course: 15:56 Patient arrived in ED. ph 15:56 Jonathan Suarez MD is Attending Physician. ma2 15:57 Frida Leyva, NICCI is Primary Nurse. ph 16:00 Triage completed. ph 16:02 Arm band placed on Patient placed in an exam room, on a stretcher, on rn cardiac, ph on pulse oximetry. 16:03 Patient has correct armband on for positive identification. Bed in low position. Call ph light in reach. Side rails up X2. 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 Pulse ox on. NIBP on. Door closed. Noise minimized. 16:50 Inserted saline lock: 20 gauge in left antecubital area, using aseptic technique. Blood ll1 collected. 17:06 XRAY Chest (1 view) In Process Unspecified. EDMS 17:38 Steve Bowden DO is Hospitalizing Provider. ma2 17:42 Hospitalizing Provider role handed off by Steve Bowden DO ma2 17:42 Will Burgess MD is Hospitalizing Provider. ma2 19:19 No provider procedures requiring assistance completed. Inserted Patient admitted, IV ph remains in place. Administered Medications: 17:45 Drug: Aspirin 325 mg Route: PO; ph 19:37 Follow up: Response: No adverse reaction ph 17:45 Drug: Lasix 60 mg Route: IVP; Site: left antecubital; ph 19:35 Follow up: Response: No adverse reaction ph 19:37 Follow up: Response: No adverse reaction ph 18:39 Not Given (Other Intervention Used): Nitroglycerin 0.4 mg Sublingual once; every five ph minute if needed x3 Outcome: 17:38 Decision to Hospitalize by Provider. ma2 19:19 Condition: stable ph 19:19 Instructed on the need for admit. 19:33 Admitted to Med/surg accompanied by tech, via stretcher, room 229, with oxygen, Report ph called to LULY GRAJEDA 21:15 Patient left the ED. mt2 Signatures: Dispatcher [employer] EDFrida Ochoa RN RN Jonathan Andrade MD MD ma2 Sanjuana Beltre RN RN ll1 Arabella Sandoval RN RN mt2
--- NOTE | 2020-02-03 18:04 | RAD REPORT ---
EXAM DESCRIPTION: Jayda Single View02/03/2020 5:06 pm CLINICAL HISTORY: Chest pain COMPARISON: January 1020 FINDINGS: The left base is hazy The remainder of the lungs appear clear of acute infiltrate. The heart is normal size IMPRESSION: Left base is hazy. This probably secondary to overlying soft tissue. An infiltrate can a lso have this appearance. If clinically indicated further evaluation with PA and lateral chest series could be obtained
[2020-02-03] MEDS ORDERED: FUROSEMIDE 100 MG/10 ML VIAL IV ONE (18:15)
[2020-02-03] MEDS ORDERED: ASPIRIN 81 MG CHEWABLE TABLET ONE (18:15)
[2020-02-03] MEDS: METHYLPREDNISOLONE 125 MG INJ IV SCH ×2 (18:25→21:46)
--- NOTE | 2020-02-03 18:25 | P.HP ---
Certification for Inpatient Patient admitted to: Observation With expected LOS: <2 Midnights Practitioner: I am a practitioner with admitting privileges, knowledge of patient current condition, hospital course, and medical plan of care. Services: Services provided to patient in accordance with Admission requirements found in Title 42 Section 412.3 of the Code of Federal Regulations Patient History Date of Service: 02/03/20 Reason for admission: Chest pain History of Present Illness: Patient is 54 years of age pre poor historian altered apparently he is has recurrent admissions he is homeless admitted with chest pain substernal he appears to be disoriented Allergies azithromycin Adverse Reaction (Verified 06/22/19 01:02) Hives Beta-Blockers (Beta-Adrenergic Bloc Adverse Reaction (Verified 06/22/19 01:02) Anaphylaxis metoprolol Adverse Reaction (Verified 06/22/19 01:02) Anaphylaxis Home Medications: Isosorbide Dinitrate [Isordil] 30 mg PO DAILY 06/22/19 Lisinopril [Zestril] 20 mg PO DAILY 06/22/19 Metformin ER [Glucophage ER*] 500 mg PO DAILY 06/22/19 Nitroglycerin [Nitrostat*] 1 tab PO DAILY PRN 06/22/19 Albuterol Sulfate [Proair Hfa] 2 puff IN TID PRN #1 [email or web address] 07/02/19 Budesonide/Formoterol Fumarate [Symbicort 160-4.5 Mcg Inhaler] 2 puff IH BID #1 [email or web address] 07/02/19 predniSONE [Deltasone*] 10 mg PO DAILY #7 tab 07/02/19 - Past Medical/Surgical History Diabetic: Yes -: Angina -: HTN -: Hyperlipidemia -: Tobacco abuse -: CAD -: COPD -: GERD -: Noncompliance with medication and follow up -: CARDIAC CATH 12/2013 NO STENTS 30% BLOCKAGE PER PT -: Cardiac stress tests October 2017 showed no stress-induced ischemia Psychosocial/ Personal History: Patient is single. Patient is homeless. - Family History MOM -: Heart disease, Other (see notes) Notes: MASSIVE LA 61YR and arthritis DAD -: Heart disease, Other (see notes) Notes: POOR CIRCULATION TO LEGS PER PT - Social History Alcohol use: Yes CD- Drugs: No Caffeine use: Yes Review of Systems General: Weakness Respiratory: Shortness of Breath Cardiovascular: Chest Pain Physical Examination - Vital Signs Temperature: 97.8 F Blood Pressure: 149/86 Pulse: 83 Respirations: 18 Pulse Ox (%): 94 - Physical Exam General: Confused Neck: Supple Respiratory: Rhonchi/gurgles Cardiovascular: Edema Gastrointestinal: Normal bowel sounds, Soft and benign Musculoskeletal: No clubbing, No swelling Integumentary: No rashes Neurological: Abnormal speech - Studies Laboratory Data (last 24 hrs) 02/03/20 16:50: PT 12.5, INR 1.06 02/03/20 16:50: WBC 6.3, Hgb 13.9, Hct 43.3, Plt Count 272 02/03/20 16:50: Sodium 141, Potassium 3.9, BUN 13, Creatinine 1.04, Glucose 160 H, Magnesium 2.1, Total Bilirubin 0.2, AST 40 H, ALT 103 H, Alkaline Phosphatase 54 Assessment and Plan - Problems (Diagnosis) (1) Chest pain Onset Date: 03/03/18 Current Visit: No Status: Acute Plan: Patient is 54 years of age admitted with chest pain very poor historian appears to be confused disoriented troponin negative and no ST-T changes on the EKG abnormal liver function tests Qualifiers: (2) COPD exacerbation Onset Date: 08/08/18 Current Visit: No Status: Acute Plan: Patient is an active smoker probably has underlying COPD (3) Sleep apnea Current Visit: Yes Status: Acute Plan: High risk will need to be evaluated - Advance Directives Does patient have a Living Will: No Does patient have a Durable POA for Healthcare: Yes
[2020-02-03] MEDS ORDERED: ASPIRIN 325 MG TAB PO ONE (18:26)
[2020-02-03] MEDS: IPRATROPIUM BROM 0.5MG/2.5ML NEB SCH (19:20)
[2020-02-03 19:24] LABS: HDL Cholesterol 29 mg/dL (40-60); LDL Cholesterol, Calculated 82 (<130); Troponin I < 0.02 ng/mL (0.0-0.045)
[2020-02-03] MEDS ORDERED: IPRATROPIUM BROM 0.5MG/2.5ML ONE (19:25)
[2020-02-03 19:36] LABS: Arterial Blood Carboxyhemoglob 6.9 % (0-1.5); Blood O2 Saturation 93.4 % (92-98.5)
[2020-02-03 23:01] VITALS: BMI 41.9
[2020-02-04] MEDS: IPRATROPIUM BROM 0.5MG/2.5ML NEB SCH ×3 (01:15→15:30)
[2020-02-04] MEDS ORDERED: ALBUTEROL INHALER 60 PUFF/8 GM IH PRN (03:11)
--- NOTE | 2020-02-04 03:14 | P.PN ---
Date of Service: 02/04/20 Call from nursing staff that patient had a sinus pause. Did not receive sign out on the patient. Upon review of chart patient with hypercapnic respiratory failure. Continue with CPAP support. Patient is refusing but will talk with them to discuss using this to keep his CO2 from going up. Will get Cardiology consultation. Continue with current plan of care.
[2020-02-04 06:02] LABS: Absolute Lymphocytes (CBC) 0.8 K/uL (0.7-4.9); Basophils % 1.2 % (0-1.3); Hematocrit 48.3 % (39.6-49.0); Lymphocytes % 7.6 % (15.3-44.8); MPV 9.6 fL (7.6-11.3); RBC Red Blood Cell Count 5.63 M/uL (4.33-5.43)
[2020-02-04 06:18] LABS: Potassium 4.8 mmol/L (3.5-5.1)
[2020-02-04 06:27] LABS: ALT/SGPT 109 U/L (12-78); AST/SGOT 32 U/L (15-37); Albumin 3.3 g/dL (3.4-5.0); Alkaline Phosphatase 59 U/L (45-117); BUN Blood Urea Nitrogen 18 mg/dL (7-18); Bicarbonate 31 mmol/L (21-32); Bilirubin Total 0.2 mg/dL (0.2-1.0); Glucose Level 196 mg/dL (74-106); Potassium 4.9 mmol/L (3.5-5.1); Protein, Total 7.4 g/dL (6.4-8.2); Sodium Level 139 mmol/L (136-145); Thyroid Stimulating Hormone 0.392 uIU/mL (0.360-3.740)
[2020-02-04] MEDS: METHYLPREDNISOLONE 125 MG INJ IV SCH (07:54)
[2020-02-04] MEDS ORDERED: HOME MED 1 EA UNK (Budesonide/Formoterol Fumarate [Symbicort 160-4.5 Mcg Inhaler] 2 PUFF) IH SCH (09:00)
[2020-02-04] MEDS ORDERED: NA CHLORIDE 0.9% 1,000 ML IV SCH (09:00)
[2020-02-04] MEDS ORDERED: ISOSORBIDE DINIT 20 MG TAB PO SCH (09:00)
[2020-02-04] MEDS ORDERED: lisinopriL 20 MG TAB PO SCH (09:00)
[2020-02-04] MEDS ORDERED: METFORMIN ER 500 MG TAB PO SCH (09:00)
[2020-02-04 09:02] LABS: Anisocytosis 1+; Blood Morphology Comment NOTED (NOT SEEN); Platelet Estimate ADEQ; Urine White Blood Cell Casts OK
--- NOTE | 2020-02-04 09:34 | P.PN ---
Subjective Date of Service: 02/04/20 Chief Complaint: Chest pain Subjective: No C/O voiced Review of Systems 10-point ROS is otherwise unremarkable Respiratory: Shortness of Breath Cardiovascular: Chest Pain Physical Examination - Vital Signs Temperature: 97.4 F Blood Pressure: 159/79 Pulse: 81 Respirations: 20 Pulse Ox (%): 93 - Physical Exam General: Alert, In no apparent distress, Oriented x3 HEENT: Atraumatic, Normocephalic Neck: Supple Respiratory: Clear to auscultation bilaterally, Diminished Cardiovascular: No edema, Regular rate/rhythm, Normal S1 S2 Capillary refill: <2 Seconds Gastrointestinal: Normal bowel sounds, Soft and benign Musculoskeletal: No contractures, No erythema, No tenderness Integumentary: No significant lesion, No tenderness/swelling, No erythema Neurological: Normal speech, Normal tone - Studies Laboratory Data (last 24 hrs) 02/04/20 05:35: Sodium 139, Potassium 4.8, BUN 18, Creatinine 0.90, Glucose 193 H 02/04/20 05:35: Sodium 139, Potassium 4.9, BUN 18, Creatinine 0.87, Glucose 196 H, Total Bilirubin 0.2, AST 32, ALT 109 H, Alkaline Phosphatase 59 02/04/20 05:35: WBC 9.8 D, Hgb 15.6, Hct 48.3, Plt Count 265 02/04/20 02:25: Troponin I < 0.02 02/03/20 18:55: Troponin I < 0.02, Triglycerides 271 H, Cholesterol 165, HDL Cholesterol 29 L, Cholesterol/HDL Ratio 5.69 02/03/20 16:50: PT 12.5, INR 1.06 02/03/20 16:50: WBC 6.3, Hgb 13.9, Hct 43.3, Plt Count 272 02/03/20 16:50: Sodium 141, Potassium 3.9, BUN 13, Creatinine 1.04, Glucose 160 H, Magnesium 2.1, Total Bilirubin 0.2, AST 40 H, ALT 103 H, Alkaline Phosphatase 54 Microbiology Data (last 24 hrs): 02/03/20 20:16 Nasopharnyx Coronavirus COVID-19 PCR - Final Assessment & Plan Discharge Plan: Home Plan to discharge in: 48 Hours - Code Status/Comfort Care Code Status Assessed: Yes Physician Review Additional Text: Assessment Chest pain, History of angina/CAD Acute on chronic respiratory failure with hypoxia and hypercapnia Diabetes mellitus type 2 Hypertension Hyperlipidemia GERD Tobacco abuse Medical noncompliance Plan Chest pain, History of angina/CAD: Patient has extremely poor historian, does report some mild chest pain at this time. Patient does have known history of angina. Patient with a heart catheterization in 2013 with no stents placed and stress test in October 2017 that showed no stress-induced ischemia. Troponins have remained negative. Cardiology will be seeing patient as he had a sinus pause overnight. Appreciate further input from cardiology. Patient is extremely poor historian and very noncompliant. Patient will likely need to follow up with cardiology for outpatient workup. Will discuss this with him in detail. Acute on chronic respiratory failure with hypoxia and hypercapnia: Patient currently on nasal cannula. Maintaining saturations above 90%. Patient's ABGs showed a pH of 7.29 and CO2 of 65 yesterday. Patient refused BiPAP. Patient still states that he does not want to wear it. Did obtain repeat ABG to determine if patient does indeed need BiPAP. Discussed with patient in detail the risks of not wearing BiPAP including altered mental status, acute respiratory failure and decompensation in need for intubation, mechanical ventilation. Diabetes mellitus type 2: A.c. HS Accu-Cheks and sliding scale insulin therapy in place. ADA diet ordered. Will continue to monitor closely. Continue patient's home medications. Hypertension: Continue patient's home medications. Hyperlipidemia: Continue patient's home medications. GERD: Continue patient's home medications. Tobacco abuse: Counseled patient on need for tobacco cessation. Medical noncompliance: Stressed importance of appropriate followup and medical management. Critical Care: No Time Spent Managing Pts Care (In Minutes): 55
[2020-02-04 10:56] LABS: Arterial Blood Carboxyhemoglob 2.3 % (0-1.5); Blood Gas Oxyhemoglobin 83.3 % (94-97)
--- NOTE | 2020-02-04 13:07 | CON ---
Date of Consultation: 02/04/2020 Reason For Consultation: Frequent sinus pauses. History Of Present Illness: This is a 54-year-old male, homeless, is admitted with chest pain, very poor historian, has altered mental condition as well. Evaluated him at bedside. He claimed that he feels okay. Has some cough. No fever. He is homeless. There is no chest pain at all. However, it is reported that he had some substernal chest pain not related to exertion, and he claimed that he h ad cardiac angiograms in the past, but no stents were placed. 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 Medications: Refer to reconciliation sheet for detailed list. Allergies: AZITHROMYCIN AND BETA BLOCKERS. Social History: He is a smoker and homeless. No reported drugs problem. Family History: coronary artery disease in the mother's side. Review of Systems: All systems reviewed and they were negative except what is mentioned in the HPI. Physical Examination: Vital Signs: Temperature is 97.4, pulse 81, breathing 18, blood pressure is 159/79, saturating 93%. General: This is a young male, obese, in no apparent distress. Head and Neck: Pupils are equal, react to light. Intact eye movements. No JVD. No cervical lympha denopathy. Neck: Supple. Thyroid is not enlarged. Lungs: Clear to auscultation with no rhonchi, wheezing, crackles. Decreased breathing sounds bilate rally. HEART: Regular rate and rhythm. No extra sounds. Abdomen: Soft, nontender. Bowel sounds positive. No organomegaly. No masses or hernia. No rigidi ty or rebound. Extremities: No edema, clubbing, cyanosis. Intact pulses. Skin: No rash or lesion. Neurologic: Alert, awake and oriented x3. No acute focal deficits appreciated. Investigations: Sodium 139, creatinine 0.9. Troponin 0.02 x3 with the LDL cholesterol of 82. White blood cell count is 9.8, hemoglobin 15.6. Reviewing his previous records, he had a cardiac catheter ization in April 2019 due to a positive stress test and a 30% of the OM, 50% RCA mid stenosis that is nondominant vessel, normal LAD and that is done in April 2019. The stress test back then was ab normal with cavity dilatation suggestive of triple-vessel disease. Assessment And Recommendation: Multiple very long pauses, reviewed telemetry and the longest pause w as 6.5 seconds and had numerous amounts of pauses varying between 3 and 6.5 seconds. I recommend EP evaluation. He had a cardiac catheterization recently back in April last year and no intervention was done. Further ischemia workup might be warranted. However, I will leave this decision to the EP once the patient is evaluated for possible pacemaker need. Avoid beta blockers or calcium channel b lockers at this point. Thank you for the courtesy of this consultation. /SARAH BETH Voice ID: [id number] Report ID: [id number]
[2020-02-04 14:00] VITALS: O2SAT 95
--- NOTE | 2020-02-04 17:28 | P.DS ---
Admission Date: 02/04/20 Discharge Date: 02/04/20 Disposition: TRANSFER TO [facility] Discharge Condition: FAIR Reason for Admission: Chest pain Consultations: Cardiology Dr. Burnett Procedures: Chest x-ray FINDINGS: The left base is hazy The remainder of the lungs appear clear of acute infiltrate. The heart is normal size IMPRESSION: Left base is hazy. This probably secondary to overlying soft tissue. An infiltrate can also have this appearance. If clinically indicated further evaluation with PA and lateral chest series could be obtained Brief History of Present Illness: Patient was admitted last night for chest pain with altered mental status. Hospital Course: During his evaluation in the emergency department patient was found initially to be acidotic and hypercapnic, he is admitted for overnight observation and evaluation for chest pain. Throughout the night patient had multiple episodes of sinus pause and again in the morning with episode that lasted almost 7 seconds. Cardiology evaluated the patient morning is determined that he needed to be transferred for evaluation for possible pacemaker placement. Patient has remained stable during hospitalization, patient did well on BiPAP for his hypercapnia. Repeat ABG significantly improved. Patient now on room air satting greater than 95%. Patient not altered, oriented x4 this time. Patient denies any chest pain, troponins have been negative. Cardiology and hospitalist at [facility] in [place] have accepted the patient for probable pacemaker placement. Vital Signs/Physical Exam: Temp Pulse Resp BP Pulse Ox 98.8 F 104 H 18 143/76 H 95 02/04/20 12:00 02/04/20 12:00 02/04/20 12:00 02/04/20 12:00 02/04/20 12:00 General: Alert, In no apparent distress HEENT: Atraumatic, PERRLA, EOMI Neck: Supple, JVD not distended Respiratory: Clear to auscultation bilaterally, Normal air movement Cardiovascular: Regular rate/rhythm, Normal S1 S2 Gastrointestinal: Normal bowel sounds, No tenderness Musculoskeletal: No tenderness Integumentary: No rashes Neurological: Normal speech, Normal tone, Normal affect Lymphatics: No axilla or inguinal lymphadenopathy Laboratory Data at Discharge: WBC 9.8 K/uL (4.3-10.9) D 02/04/20 05:35 Hgb 15.6 g/dL (13.6-17.9) 02/04/20 05:35 Hct 48.3 % (39.6-49.0) 02/04/20 05:35 Plt Count 265 K/uL (152-406) 02/04/20 05:35 PT 12.5 SECONDS (9.5-12.5) 02/03/20 16:50 INR 1.06 02/03/20 16:50 Sodium 139 mmol/L (136-145) 02/04/20 05:35 Sodium 139 mmol/L (136-145) 02/04/20 05:35 Potassium 4.8 mmol/L (3.5-5.1) 02/04/20 05:35 Potassium 4.9 mmol/L (3.5-5.1) 02/04/20 05:35 BUN 18 mg/dL (7-18) 02/04/20 05:35 BUN 18 mg/dL (7-18) 02/04/20 05:35 Creatinine 0.87 mg/dL (0.55-1.3) 02/04/20 05:35 Creatinine 0.90 mg/dL (0.55-1.3) 02/04/20 05:35 Glucose 193 mg/dL (74-106) H 02/04/20 05:35 Glucose 196 mg/dL (74-106) H 02/04/20 05:35 Magnesium 2.1 mg/dL (1.8-2.4) 02/03/20 16:50 Total Bilirubin 0.2 mg/dL (0.2-1.0) 02/04/20 05:35 AST 32 U/L (15-37) 02/04/20 05:35 ALT 109 U/L (12-78) H 02/04/20 05:35 Alkaline Phosphatase 59 U/L (45-117) 02/04/20 05:35 Troponin I < 0.02 ng/mL (0.0-0.045) 02/04/20 11:00 Triglycerides 271 mg/dL (<150) H 02/03/20 18:55 Cholesterol 165 mg/dL (<200) 02/03/20 18:55 HDL Cholesterol 29 mg/dL (40-60) L 02/03/20 18:55 Cholesterol/HDL Ratio 5.69 02/03/20 18:55 Home Medications: Albuterol Inhaler [Ventolin Inhaler] 2 puff IH TID PRN 02/03/20 Budesonide/Formoterol Fumarate [Symbicort 160-4.5 Mcg Inhaler] 2 puff IH BID 02/03/20 Isosorbide Dinitrate [Isordil] 30 mg PO DAILY 02/03/20 Lisinopril [Zestril] 20 mg PO DAILY 02/03/20 Metformin ER [Glucophage ER] 500 mg PO DAILY 02/03/20 Nitroglycerin [Nitrostat*] 1 tab PO DAILY PRN 02/03/20 Patient Discharge Instructions: Please continue further care at [facility] in [place]. You will need to follow up with her primary care doctor to follow your hospitalization. Continue recommendations from [facility]. Diet: AHA Activity: Ad yasmine Time spent managing pt's care (in minutes): 55
[2020-02-04 21:20] VITALS: BP 144/61; TEMP 98.3
[2020-02-05] MEDS ORDERED: METFORMIN ER 500 MG TAB PO SCH (08:00)
== END 2020-02-04 22:03 | disposition short-term general hospital (02) | DRG 313 ==
LOC: ER 15:46 → ERHOLD 19:12 → 2ND 20:05 → 4TH 20:27 → OBSVTOIN 02-04 07:29 → 2ND 02-04 16:00
PROVIDERS: ADMIT Internal Medicine Sleep Medicine; ATTEND Registered Nurse Emergency
DX: R07.9 Chest pain, unspecified (principal); J96.22 Acute and chronic respiratory failure with hypercapnia; J96.21 Acute and chronic respiratory failure with hypoxia; J44.1 Chronic obstructive pulmonary disease with (acute) exacerbation; F17.200 Nicotine dependence, unspecified, uncomplicated; I10 Essential (primary) hypertension; G47.33 Obstructive sleep apnea (adult) (pediatric); E78.5 Hyperlipidemia, unspecified; E11.9 Type 2 diabetes mellitus without complications; K21.9 Gastro-esophageal reflux disease without esophagitis; I25.2 Old myocardial infarction; I25.10 Atherosclerotic heart disease of native coronary artery without angina pectoris; Z88.1 Allergy status to other antibiotic agents; Z88.8 Allergy status to other drugs, medicaments and biological substances; Z79.84 Long term (current) use of oral hypoglycemic drugs; Z79.51 Long term (current) use of inhaled steroids; Z79.52 Long term (current) use of systemic steroids; Z91.14 Patient's other noncompliance with medication regimen; Z20.828 Contact with and (suspected) exposure to other viral communicable diseases; Z79.82 Long term (current) use of aspirin; Z79.899 Other long term (current) drug therapy; Z53.29 Procedure and treatment not carried out because of patient's decision for other reasons; Z59.0 Homelessness
CPT/HCPCS: 36415; 71045; 80048; 80053; 80061; 80076; 82805; 82947; 83735; 83880; 84443; 84484; 85025; 85610; 93005; 94640; 94660; 94760; 96374; 99285; G0378; J2930; J7030; U0002

== ENCOUNTER 2020-03-02 10:28 | Inpatient (IN) | payer OTHER, SELFPAY ==
--- OUTSIDE RECORDS SUMMARY | 2020-03-02 10:31 | XMS REPORT | Clinical Summary ---
:1965 Author Organization [facility] Address [address] [place] [address] Care Team Providers Name Role Phone Pcp Primary Care Provider Unavailable Allergies No Known Allergies Medications Medication Sig Dispensed Refills Start Date End Date Status lisinopriL Take 1 tablet 30 tablet 0 02/07/2020 02/06/2021 Act warren (PRINIVIL,ZESTRIL) 5 (5 mg total) by MG tablet mouth daily. aspirin 81 MG Take 1 tablet 30 tablet 0 02/07/2020 02/06/2021 Active chewable tablet (81 mg total) by mouth daily. clopidogreL (PLAVIX) Take 1 tablet 30 tablet 0 02/06/202011/2020 Active 75 mg tablet (75 mg total) by mouth daily. atorvastatin Take 1 tablet 30 tablet 0 02/06/2020 02/05/2021 A ctive (LIPITOR) 40 MG (40 mg total) tablet by mouth daily. mINOCYCLine Take 1 capsule 10 capsule 0 02/06/2020 02/11/2020 (MINOCIN,DYNACIN) 100 (100 mg total) MG capsule by mouth every 12 (twelve) hours for 5 days. Active Problems Problem Noted Date MDT DDDR pacemaker implant on 02/05/2020 02/06/2020 Hypertension 02/05/2020 HLD (hyperlipidemia) 02/05/2020 Coronary artery disease 02/05/2020 BRIDGET (obstructive sleep apnea) 02/05/2020 Morbid obesity with BMI of 40.0-44.9, adult 02/05/2020 Syncope due to sick sinus syndrome 02/04/2020 Sick sinus syndrome due to SA node dysfunction 020 Homeless 02/04/2020 Encounters Date Type Specialty Care Team Description 02/05/2020 Surgery Prem Elam UPGRADE - MD Kofi SINGLE TO DUAL CHAMBER SYSTEM 02/05/2020 Orders Only General Internal Medicine 02/04/2020 - Hospital Encounter Dulce Wilde Sick sinus syndrome due to SA node dysfunction (HCC); 02/06/2020 MD Marta Syncope due to sick sinus syndrome (HCC) ; Timoteo Shipley BRIDGET (obstruc tive sleep apnea); D Morbid obesity (HCC); Hypoxia; Chronic bronchi tis, unspecified chronic bronchitis type (HCC); Type 2 diabetes mellitus without complication, without long-term current use of insulin (HCC); Homeless 02/04/2020 Travel 02/04/2020 Documentation Internal Medicine Ortega, Oriana Reilly MD 02/03/2020 Lab Requisition Lab after 03/02/2019 Social History Tobacco Use Types Packs/Day Years Used Date Current Every Day Smoker Alcohol Use Drinks/Week oz/Week Comments No Alcohol Habits Answer Date Recorded How often do you have a drink containing alcohol? Never 02/04/2020 How many drinks containing alcohol do you have on a typical Not asked day when you are drinking? How often do you have six or more drinks on one occasion? No t asked Sex Assigned at Date Recorded Not on file Job Start Date Occupation Industry Not on file Not on file Not on file Travel History Travel Start Travel End No recent travel history available. Last Filed Vital Signs Vital Sign Reading Time Taken Blood Pressure 146/74 02/06/2020 11:21 AM CDT Pulse 80 02/06/2020 11:21 AM CDT Temperature 37.1 C (98.7 F) 02/06/2020 11:21 AM CDT Respiratory Rate 18 02/06/2020 11:21 AM CDT Oxygen Saturation 94% 02/06/2020 11:21 AM CDT Inhaled Oxygen Concentration - - Weight 120.9 kg (266 lb 9.6 oz) 02/05/2020 6:3 5 AM CDT Height 167.6 cm (5' 6") 02/04/2020 10:00 PM CDT Body Mass Index 43.03 02/05/2020 6:35 AM CDT Plan of Treatment Health Maintenance Due Date Last Done Comments COLON CANCER SCREENING COLONOSCOPY 1965 DIABETIC EYE EXAM 09/07/1975 DIABETIC FOOT EXAM 09/07/1975 URINE MICROALBUMIN 09/07/1975 INFLUENZA VACCINE (#1) 2020 04/20/2019, 09/19/2013 HEMOGLOBIN A1C 08/07/2020 02/05/2020 LIPID PANEL 02/04/2023 02/05/2020, 07/17/2019 PNEUMOCOCCAL VACCINE 2-64 YEARS AT RISK Completed 04/20/20 19, 09/19/2013 Implants Implanted 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 Device Identifier Shelf Model / Expiration Serial / Date Lot Lead Pacemkr Cecily Bansalus 52x1 [id number] - [id number] PACEMAKER/I MEDTRON[employer]:CARD [id number] 09/27/2021 [id number] / Implanted: Qty: 1 on 02/05/2020 by Prem Elam MD CD CHAMBER RHY:DISEASE MGT [id number] / DEVICE Lead Pacemkr Capssamuel Novus 45x1 [id number] - [id number] PACEMAKER/I [employer]TRONIC:CARD [id number] 08/28/2021 [id number] / Implanted: Qty: 1 on 02/05/2020 by Prem Elam MD CD CHAMBER RHY:DISEASE MGT [id number] / DEVICE Pacemkr Greenhorn Xtdr Mri Ipg [id number] - [id number] PACEMAKER/I [employer]TRONIC:CARD [id number] 05/31/2021 [id number] / Implanted: Qty: 1 on 02/05/2020 by Prem Elam MD CD CHAMBER RHY:PACING SYS [id number] / DEVICE Procedures Procedure Name Priority Date/Time Associated Diagnosis Comme nts ARRYTHMIA IMPLANT 02/20/2020 1:41 Result s for this REPORT - SCAN PM CDT procedure are in the results section. RHYTHM STRIP - SCAN 02/08/2020 9:00 AM CDT ARRYTHMIA IMPLANT 02/08/2020 9:00 Result s for this REPORT - SCAN AM CDT procedure are in the results section. CARDIAC CATH REPORT - 02/08/2020 9:00 SCAN AM CDT TRANSFUSION SERVICE 02/06/2020 6:02 REPORT - SCAN PM CDT 2D ECHO W/ DOPPLER KERLINE 02/06/2020 10:08 Resul ts for this (CW/PW/COLOR) AM CDT procedure are in the results section. POCT-GLUCOSE METER Routine 02/06/2020 7:12 Resul ts for this AM CDT procedure are i n the results section. CBC W/PLT COUNT & Routine 02/06/2020 4:03 Result s for this AUTO DIFFERENTIAL AM CDT procedure are in the results section. CBC W/PLT COUNT & Routine 02/06/2020 4:03 Result s for this AUTO DIFFERENTIAL AM CDT procedure are in the results section. MAGNESIUM Routine 02/06/2020 4:02 Results for this AM CDT procedure are i n the results section. BASIC METABOLIC PANEL Routine 02/06/2020 4:02 Re sults for this (7) AM CDT procedure are i n the results section. POCT-GLUCOSE METER Routine 02/05/2020 10:25 Resul ts for this PM CDT procedure are i n the results section. XR CHEST 1 VIEW Routine 02/05/2020 5:51 Results for this PORTABLE/BEDSIDE PM CDT procedure a re in the results section. POCT-GLUCOSE METER Routine 02/05/2020 4:47 Resul ts for this PM CDT procedure are i n the results section. AICD UPGRADE - SINGLE 02/05/2020 4:20 Syncope, unspec ified TO DUAL CHAMBER PM CDT syncope type SYSTEM BLOOD GAS, ARTERIAL STAT 02/05/2020 11:36 Resu lts for this AM CDT procedure are i n the results section. ABORH, MANUAL STAT 02/05/2020 8:59 Results fo r this AM CDT procedure are i n the results section. TYPE AND SCREEN, STAT 02/05/2020 8:30 Results for this AUTOMATED AM CDT procedure are i n the results section. XR CHEST 1 VIEW Routine 02/05/2020 6:55 Results for this PORTABLE/BEDSIDE AM CDT procedure a re in the results section. ECG 12-LEAD Routine 02/05/2020 6:40 AM CDT Procedure Note - Interface, External Ris In - 02/05/2020 6:51 AM CDT Ventricular Rate 64 BPM Atrial Rate 64 BPM P-R Interval 152 ms QRS Duration 106 ms Q-T Interval 380 ms QTC Calculation(Bazett) 392 ms P Enfield 51 degrees R Enfield 57 degrees T Enfield -21 degrees Normal sinus rhythm Incomplete left bundle branc h block T wave abnormality, consider inferior ischemia Abnormal ECG No previous ECGs available ECG 12-LEAD Routine 02/05/2020 6:40 AM CDT Resu lts for this procedure are i n the results section . CBC W/PLT COUNT & AUTO Routine 02/05/2020 1:23 AM CDT Results for this DIFFERENTIAL procedure are i n the results section . BLOOD GAS, VENOUS Routine 02/05/2020 1:23 AM CDT Results for this procedure are i n the results section . HEMOGLOBIN A1C Routine 02/05/2020 1:23 AM CDT Re sults for this procedure are i n the results section . CBC W/PLT COUNT & AUTO Routine 02/05/2020 1:23 AM CDT Results for this DIFFERENTIAL procedure are i n the results section . LIPID PANEL Routine 02/05/2020 1:22 AM CDT Resu lts for this procedure are i n the results section . MAGNESIUM Routine 02/05/2020 1:22 AM CDT Resu lts for this procedure are i n the results section . BASIC METABOLIC PANEL (7) Routine 02/05/2020 1:22 AM CDT Results for this procedure are i n the results section . SARS-COV2/RT-PCR ([facility] & Routine 02/03/2020 8:16 PM CDT Results for this REF LABS) procedure are i n the results section . after 03/02/2019 Results ARRYTHMIA IMPLANT REPORT - SCAN (02/20/2020 1:41 PM CDT)Only the most recent of 2 resultswithin the time period is included. Narrative Performed At This result has an attachment that is no t available. RHYTHM STRIP - SCAN (02/08/2020 9:00 AM CDT) Narrative Performed At This result has an attachment that is no t available. CARDIAC CATH REPORT - SCAN (02/08/2020 9:00 AM CDT) Narrative Performed At This result has an attachment that is no t available. TRANSFUSION SERVICE REPORT - SCAN (02/06/2020 6:02 PM CDT) Narrative Performed At This result has an attachment that is no t available. 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 Clinical History COPD,CAD,DM,HLD,HTN,OBESITY,SSS Contrast Medium: Definity. Height: 66 inches Weight: 120.66 kg (266 lbs) BSA: 2.26 m^2 BMI: 42.93 kg/m^2 HR: 86 bpm BP: 169/97 mmHg Summary 1. LV is mildly enlarged. Inferior wall is mildly hypokinetic other LV segments contract normally. LVEF is normal (55-60%) . 2. Normal RV size and function. 3. Normal diastolic function. 4. Unable to estimate peak systolic PA pressure; Previous Study No prior studies available for comparis on. Signature Findings Technical Quality: Technically adequate exam. Left Ventricle LV endocardium is adequately visualized with IV ul trasound enhancing agent. The left ventr icle is ch fabi size (by vol index) is mildly enla rged (m lucy - LVED 75-89ml/m2). No evidence of L V hy pertrophy. Inferior wall is mildly hypok inetic. Ot her LV segments contract normally . Glob al LV sy stolic function normal . LVEF by Du 's method of disk assessment is normal (55-60%) . Nor mal di astolic function. Left AtriumLA size is normal (16-34 ml/m2) . Right VentricleThe right ventricular chamber size and systolic fu nction are within normal limits. RV pacing wire is visualized . Right Atrium RA size is normal. RA pacing wire is visualized . Aortic Valve Mild AoV cusp thickening. No evidence of aortic regurgitation. Mitral Valve Mild MV leaflet thickening. No evidence of mitral regurgitation. Tricuspid ValveTV structure is normal. A trace of tricuspid regurgitation. Un able to estimate peak systolic PA pressu re; in adequate TR velocity signal. Pulmonic Valve Normal PV structure and function by limited views an d Doppler. AortaAortic root size (SInus of Valsalva diameter) i s no rmal . PericardiumNo pericardial effusion is visualized. IVC/SVC/PA/PV/PleuralThe estimated RA pressure by IVC dynamics 0-5mmHg . Chambers/Structures Left Atrium LA Volume: 43.84 ml LA Area: 12.28 cm^2 LA Vol. Index: 19 ml/m^2 Left Ventricle LVIDd: 4.98 cm LVIDs: 2.88 cm LV Septum Diastolic: 1.18 cm LV PW Diastolic: 1.18 cmLV FS: 42.2 % LVEDV Du's:172.49 ml LVESV Du's:72.41 mlLVEDVI: 76 ml/m^2 LVEF Du's: 58 %L VESVI: 32 ml/m^2 LVOT Diameter: 2.33 cm Aorta Ao Root S of Nahomy.: 3.28 cm Doppler/Quantitative Measurements Mitral Valve MV Peak E-Wave: 0.75 m/sMV Peak A-Wave: 0.79 m/s E/A Ratio: 0. 95 Peak Gradient: 2.24 mmHg Deceleration Time: 228.6 msec MV Justen. Peak: Tissue Doppler E' Lateral Velocity: 0.08 m/s E/E': 9.82 Aortic Valve Peak Velocity: 1.63 m/s Mean Velocity: 1.12 m/s Peak Gradient: 10.68 mmHg Mean Gradient: 5.7 mmHg AV Area (continuity): 3.07 cm^2 AV VTI: 27.13 cm AV DVI: 0.72 LVOT Peak Velocity: 1.32 m/s Peak Gradient: 6.99 mmHg Mean Velocity: 0.87 m/s Mean Gradient: 3.52 mmHg LVOT Diameter: 2.33 cmLVOT VTI: 19.57 cm LVOT Area: 4.26 cm^2LVOT SV:83.4 ml LVOT CO: 7.17 l/min LVOT CI: 3.17 l/min/m^2 RVOT RVOT VTI (PW): 14.25 cm Tricuspid Valve TR Velocity: 2.44 m/s TR Gradient: 23.87 mmHg Procedure Note Interface, External Ris In - 02/06/2020 6:17 PM CDT Transthoracic Echocardiography Report (TTE) Demographics Patient Name JUAN MIGUEL VALLE Date of Study 02/06/2020 RU Gender Male Visit Number [id number] Race Unknown Room Num [facility] 636 Number Date of 1965 Justin Mockcherrifantasma Physicia n Age 54 year(s) Sonograp her Rubens Jurado, NB, RDCS,RVT,RDMS Sap Bw Architect Anthony Lezama MD RDCS Physicia n Procedure Type of Study TTE procedure:2DECHO W DOPPLE R(CW/PW/COLOR) (KERLINE) Indications:Acute Chest Pain/ Suspected CAD. Clinical History COPD,CAD,DM,HLD,HTN,OBESITY,SSS Contrast Medium: Definity. Height: 66 inches Weight: 120.66 kg (266 lbs) BSA: 2.26 m^2 BMI: 42.93 kg/m^2 HR: 86 bpm BP: 169/97 mmHg Summary 1. LV is mildly enlarged. Inferior wall is mildly hypokinetic other LV segments contract normally. LVEF is nor mal (55-60%) . 2. Normal RV size and function. 3. Normal diastolic function. 4. Unable to estimate peak systolic PA pressure; Previous Study No prior studies available for comparis on. Signature Findings Technical Quality: Technically adequate exam. Left Ventricle LV endocardium i s adequately visualized with IV ultrasound enhan cing agent. The left ventricle is chamber size (by vol index) is mildly enlarged (male - LVED 75- 89ml/m2). No evidence of LV hypertrophy. Inf erior wall is mildly hypokinetic. Other LV segment s contract normally . Global LV systolic functio n normal . LVEF by Du's method of disk assessme nt is normal (55-60%) . Normal diastolic functi on. Left Atrium LA size is sophia l (16-34 ml/m2) . Right Ventricle The right ventri cular chamber size and systolic function are wit hin normal limits. RV pacing wire i s visualized . Right Atrium RA size is sophia l. RA pacing wire i s visualized . Aortic Valve Mild AoV cusp th ickening. No evidence of a ortic regurgitation. Mitral Valve Mild MV leaflet thickening. No evidence of m itral regurgitation. Tricuspid Valve TV structure is normal. A trace of tricu spid regurgitation. Unable to estima te peak systolic PA pressure; inadequate TR ve locity signal. Pulmonic Valve Normal PV struct ure and function by limited views and Doppler. Aorta Aortic root size (SInus of Valsalva diameter) is normal . Pericardium No pericardial e ffusion is visualized. IVC/SVC/PA/PV/Pleural The estimated RA pressure by IVC dynamics 0-5mmHg . Chambers/Structures Left Atrium LA Volume: 43.84 ml LA Area: 12.28 cm^2 LA Vol. Index: 19 ml/m^2 Left Ventricle LVIDd: 4.98 cm LVIDs: 2.88 cm LV Septum Diastolic: 1.18 cm LV PW Diastolic: 1.18 cm LV FS: 42.2 % LVEDV Du's:172.49 ml LVESV Du's:72.41 ml LVEDVI: 76 ml/m^2 LVEF Du's: 58 % LVESVI: 32 ml/m^2 LVOT Diameter: 2.33 cm Aorta Ao Root S of Nahomy.: 3.28 cm Doppler/Quantitative Measurements Mitral Valve MV Peak E-Wave: 0.75 m/s M V Peak A-Wave: 0.79 m/s E /A Ratio: 0.95 P eak Gradient: 2.24 mmHg D eceleration Time: 228.6 msec MV Justen. Peak: Tissue Doppler E' Lateral Velocity: 0.08 m/s E /E': 9.82 Aortic Valve Peak Velocity: 1.63 m/s Mean Velocity: 1.12 m/s Peak Gradient: 10.68 mmHg Mean Gradient: 5.7 mmHg AV Area (continuity): 3.07 cm^2 AV VTI: 27.13 cm AV DVI: 0.72 LVOT Peak Velocity: 1.32 m/s Pea k Gradient: 6.99 mmHg Mean Velocity: 0.87 m/s Alice n Gradient: 3.52 mmHg LVOT Diameter: 2.33 cm LVO T VTI: 19.57 cm LVOT Area: 4.26 cm^2 LVO T SV:83.4 ml LVOT CO: 7.17 l/min LVO T CI: 3.17 l/min/m^2 RVOT RVOT VTI (PW): 14.25 cm Tricuspid Valve TR Velocity: 2.44 m/s TR Gradient: 23.87 mmHg Performing Organization Address [facility] Hospital[facility] Phone Number [facility] ECHO HEARTLAB [facility] POC-Glucose meter (02/06/2020 7:12 AM CDT)Only the most recent of3 results within the time period is included. POC-Glucose Meter 131 (H)Comment: : TESTED 70 - 110 mg/dL [facility] AT [address], [address]: Mail Messenger/Robotics Application Engineer ID = [id number] for KENDRICK HAN Specimen Blood Performing Organization Address [facility] [place] [address] CENTER CBC with platelet count + automated diff (02/06/2020 4:03 AM CDT)Only the most recent of2 resultswithin the time period is included. WBC 8.1 3.5 - 10.5 K/L [facility] RBC 5.09 4.63 - 6.08 M/L [facility] Hemoglobin 13.5 (L) 13.7 - 17.5 GM/DL [facility] Hematocrit 45.1 40.1 - 51.0 % [facility] MCV 88.6 79.0 - 92.2 fL [facility] MCH 26.5 25.7 - 32.2 pg [facility] MCHC 29.9 (L) 32.3 - 36.5 GM/DL [facility] RDW 15.9 (H) 11.6 - 14.4 % [facility] Platelets 265 150 - 450 K/CU MM [facility] MPV 11.2 9.4 - 12.4 fL [facility] nRBC 0 0 - 0 /100 WBC [facility] % Neutros 65 % [facility] % Lymphs 24 % [facility] % Monos 9 % [facility] % Eos 1 % [facility] % Baso 0 % [facility] # Neutros 5.27 1.78 - 5.38 K/L [facility] # Lymphs 1.96 1.32 - 3.57 K/L [facility] # Monos 0.69 0.30 - 0.82 K/L [facility] # Eos 0.08 0.04 - 0.54 K/L [facility] # Baso 0.03 0.01 - 0.08 K/L [facility] Immature Granulocytes-Relative 0 0 - 1 % C [facility] Specimen Blood Performing Organization Address City/State/Zipcode Phone Number [facility] MEDICAL [address] [place] [address] CENTER Magnesium (02/06/2020 4:02 AM CDT)Only the most recent of2 resultswithin the time period is included. Magnesium 1.9Comment: Specimen slightly 1.6 - 2.6 mg/dL [facility] Specimen Blood Narrative Performed At Mail Messenger ID - NELLY W [facility] Performing Organization Address [facility]/Zipcode Phone Number [facility] [address] [place] [address] [place] Basic metabolic panel (02/06/2020 4:02 AM CDT)Only the most recent of2 results within the time period is included. Sodium 137 136 - 145 meq/L [facility] Potassium 4.4Comment: Specimen slightly 3.5 - 5.1 meq/L [facility] Chloride 101 98 - 107 meq/L [facility] CO2 28 22 - 29 meq/L [facility] BUN 13 7 - 21 mg/dL [facility] Creatinine 0.73Comment: Specimen 0.57 - 1.25 mg/dL [facility] slightly hemolyzed [facility] R Glucose 124 (H) 70 - 105 mg/dL [facility] Calcium 8.2 (L) 8.4 - 10.2 mg/dL [facility] EGFR 112Comment: ESTIMATED GFR IS mL/min/1.73 sq m [facility] NOT ACCURATE CREATININE [facility] CLEARANCE IN PREDICTING GLOMERULAR FILTRATION RATE. ESTIMATED GFR IS NOT APPLICABLE FOR DIALYSIS PATIENTS. Specimen Blood Narrative Performed At Mail Messenger ID - NELLY Loredo [facility] Performing Organization Address City/[facility] Hospitalcode Phone Number [address] [address] [place] XR chest 1 view portable / bedside (02/05/2020 5:51 PM CDT)Only the most recent of2 resultswithin the time period is included. Specimen Narrative Performed At FINAL REPORT [facility] TECHNIQUE: Frontal view of the chest. INDICATION: Confirm pacemaker lead place ment COMPARISON: None. FINDINGS: LINES/TUBES: Left subclavian approach pa cer device with leads projecting over the expected location of the right atrium and right ventricle.. LUNGS: The lungs are well inflated and c lear. No consolidation or pulmonary edema. PLEURA: No pneumothorax or significant p leural effusion. HEART AND MEDIASTINUM: The cardiomediast inal silhouette is stable. SOFT TISSUES AND BONES: Unremarkable. IMPRESSION: No pneumothorax status post pacer placem ent.. Signed: Merritt Vincent MD Report Verified Date/Time:02/05/2020 18:08:29 Reading Location: [facility] C013T [facility] Reading Room Procedure Note Interface, External Ris In - 02/05/2020 6:10 PM CDT FINAL REPORT TECHNIQUE: Frontal view of the chest. INDICATION: Confirm pacemaker lead place ment COMPARISON: None. FINDINGS: LINES/TUBES: Left subclavian approach pa cer device with leads projecting over the expected location of the right atrium and right ventricle.. LUNGS: The lungs are well inflated and c lear. No consolidation or pulmonary edema. PLEURA: No pneumothorax or significant p leural effusion. HEART AND MEDIASTINUM: The cardiomediast inal silhouette is stable. SOFT TISSUES AND BONES: Unremarkable. IMPRESSION: No pneumothorax status post pacer placem ent.. Signed: Merritt Vincent MD Report Verified Date/Time: 02/05/2020 1 8:08:29 Reading Location: [facility] B1 C013T Composeright nal Reading Room Performing Organization Address City/State/Zipcode Phone Number [facility] Blood gas, arterial (02/05/2020 11:36 AM CDT) pH, Arterial 7.42 7.35 - 7.45 [facility] pCO2, Arterial 48 (H) 35 - 45 mmHg [facility] pO2, Arterial 70 (L) 80 - 90 mmHg [facility] O2 Sat, Arterial 94.8 (L) 96.0 - 97.0 % [facility] HCO3, Arterial 31 (H) 21 - 29 mmol/L [facility] Base Excess, Arterial 5.3 (H) -2.0 - 3.0 mmol/L [facility] Patient Temperature 36.3 C [facility] FIO2 21.0 % [facility] Specimen Blood, Arterial Performing Organization Address City/[facility] Phone Number [address] [address] CENTER ABORH, manual (02/05/2020 8:59 AM CDT) ABO Grouping AB [facility] Rh Factor POS [facility] Specimen Blood Performing Organization Address City/[facility] Phone Number [address] [address] Type and screen, automated (02/05/2020 8:30 AM CDT) ABO/RH AUTOMATED (BEAKER) AB POSITIVE [facility] Ab Scrn NEGATIVE [facility] Specimen Blood Performing Organization Address [facility] Phone Number [address] [address] ECG 12 lead (02/05/2020 6:40 AM CDT) Specimen Narrative Performed At Ventricular Rate 64 BPM GE MUSE Atrial Rate 64 BPM P-R Interval 152 ms QRS Duration 106 ms Q-T Interval 380 ms QTC Calculation(Bazett) 392 ms P Enfield 51 degrees R Enfield 57 degrees T Enfield -21 degrees Normal sinus rhythm Incomplete left bundle branch block Nonspecific ST and T wave abnormality Abnormal ECG No previous ECGs available Confirmed by MD FERREIRA YOCHAI ([id number]) on 02/05/2020 1 :06:39 PM Procedure Note Interface, External Ris In - 02/05/2020 1:06 PM CDT Ventricular Rate 64 BPM Atrial Rate 64 BPM P-R Interval 152 ms QRS Duration 106 ms Q-T Interval 380 ms QTC Calculation(Bazett) 392 ms P Enfield 51 degrees R Enfield 57 degrees T Enfield -21 degrees Normal sinus rhythm Incomplete left bundle branch block Nonspecific ST and T wave abnormality Abnormal ECG No previous ECGs available Confirmed by MD FERREIRA YOCHAI ([id number]) on 02/05/2020 1:06:39 PM Performing Organization Address City/State/[facility] Phone Number ENRIQUE HERNÁNDEZ Hemoglobin A1c (02/05/2020 1:23 AM CDT) Hemoglobin A1C 8.3 (H) 4.3 - 6.1 % [facility] Specimen Blood Performing Organization Address [facility] Phone Number [address] [address] [place] Blood gas, venous (02/05/2020 1:23 AM CDT) pH, Cuco 7.39 7.32 - 7.42 [facility] pCO2, Cuco 52 (H) 41 - 51 mmHg [facility] pO2, Cuco 147 (H) 25 - 40 mmHg [facility] O2 Sat, Cuco 98.8 (H) 40.0 - 70.0 % [facility] HCO3, Cuco 30 (H) 21 - 29 mmol/L [facility] Base Excess, Cuco 4.3 (H) -2.0 - 3.0 mmol/L [facility] Patient Temperature 37.0 C [facility] FIO2 21.0 % [facility] Specimen Blood Performing Organization Address [facility] Phone Number [address] [address] [place] Lipid panel (02/05/2020 1:22 AM CDT) Triglycerides 119 mg/dL [facility] Cholesterol 192 mg/dL [facility] HDL 34 mg/dL [facility] LDL Calculated 134 mg/dL [facility] Specimen Blood Narrative Performed At Triglyceride Reference Range: [facility] Low Risk <150 [id number] High Risk 200-499 Very High Risk>=500 Cholesterol Reference Range: Low Risk <200 [id number] High Risk>240 HDL Cholesterol Reference Range: Low Risk >=60 High Risk <40 LDL Cholesterol Reference Range: Optimal<100 Near [id number] [id number] Very High >=190 Mail Messenger ID - NELLY Loredo Performing Organization Address City/State/Zipcode Phone Number [facility] [address] [place] [address] [facility] SARS-CoV2/RT-PCR ([facility]) (02/03/2020 8:16 PM CDT) SARS-COV2/RT-PCR Negative Not Detected, Negative, [facility] See external report for MEDICAL CENTER linked test SARS-COV-2 PERFORMING LAB [facility] Specimen Other Narrative Performed At Negative result for this test determines that [facility] SARS-CoV-2 RNA was not present in the specimen above the Limit of Detection (LOD).However, Negative results do not preclude SARS-CoV-2 infection and should not be used as the sole basis for treatment or patient management decisions. Negative results must be combined with clinical observations, patient history, and epidemiological information. A false negative result may occur if a specimen is improperly collected, transported or handled.A false negative result should be considered if patient's recent exposures or clinical presentation indicate that COVID-19 (SARS-CoV-2) is likely and diagnostic tests for other causes of illness are negative.Re-testing should be considered in cases of suspected false negatives. The limit of detection for this assay is 800 copies/mL. This SARS CoV-2 test is a real-time RT-PCR test intended for the qualitative detection of nucleic acid from SARS-CoV-2 in a nasopharyngeal swab specimen collected from individuals suspected of COVID-19 by their healthcare provider. This test has not been Food and Drug Administration (FDA) cleared or approved.This is a modified version of an approved Emergency Use Authorization (EUA) and is in the process of review by the FDA. Once authorized by the FDA, the issued EUA will be effective until the declaration that circumstances exist justifying the authorization of the emergency use of in vitro diagnostic tests for detection and/or diagnosis of COVID-19 is terminated under Section 564(b)(2) of the Act or the EUA is revoked under Section 564(g) of the Act. Fact Sheet for Healthcare Providers: https://www.Tosk/sites/default/files/pro duct/documents/Fact_Sheet_HC_Providers_Lyra_SA RS-CoV-2.pdf Fact Sheet for Healthcare Patients: https://www.Tosk/sites/default/files/pro duct/documents/Fact_Sheet_Patients_Lyra_SARS-C oV-2.pdf Performing Laboratory: [address] [place] [address] Performing Organization Address City/State/Zipcode Phone Number [address] [address] [facility] after 03/02/2019 Advance Directives For more information, please contact:[address] [phone] Code Status Date Activated Date Inactivated Comments Full Code 02/04/2020 11:59 PM 02/06/2020 5:54 PM This code status was determined by: Patient
--- OUTSIDE RECORDS SUMMARY | 2020-03-02 10:32 | XMS REPORT | Continuity of Care Document ---
:1965 Author Organization [facility] t Address [address] [place] [address] Care Team Providers Name Role Phone Pcp Primary Care Physician Unavailable Bernardo AHYWOOD Attending Clinician Doctor Unassigned, Name Attending Clinician Unavailable Juana Wilde MD Attending Clinician Ely Shipley Attending Clinician Kofi Elam MD Attending Clinician JUANA WILDE Attending Clinician Unavailable Melba Ortega MD Attending Clinician JUANA WILDE Admitting Clinician Unavailable Problems Condition Condition Condition Status Onset Resolution Last Treating Co mments Source Name Details Category Date Date Treatment Clinician Date MDT DDDR MDT DDDR Disease [facility] - implant on implant on 00:00: Me dical 02/05/2020 02/05/2020 00 Center Hypertensi Hypertensi Disease Active 2019- [facility] HLD HLD Disease Active [facility] (hyperlipi (hyperlipi 02-04 kes - demia) demia) 00:00: Medical 00 Center Coronary Coronary Disease Active [facility] artery artery [facility]04 [facility] - disease disease 00:00: Medical 00 Center BRIDGET BRIDGET Disease Active [facility] (obstructi (obstructi 02-04 Melia kes - ve sleep ve sleep 00:00: Medica l apnea) apnea) 00 Center Morbid Morbid Disease Active [facility] obesity obesity 02-04[facility] - with BMI with BMI 00:00: Medica l of of 00 Center 40.0-44.9, 40.0-44.9, adult adult Syncope Syncope Disease Active [facility] sick sinus sick sinus 00:00: Me dical syndrome syndrome 00 Center Sick sinus Sick sinus Disease Active C [facility] syndrome syndrome 02-[facility] - due to SA due to SA 00:00: Medi ajith node node 00 [place] dysfunctio dysfunctio n n Homeless Homeless Disease Active [facility] - 00:00: Medical 00 Center Allergies, Adverse Reactions, Alerts This patient has no known allergies or adverse reactions. Social History Social Habit Start Date Stop Date Quantity Comments Source History SDNV Alcohol [facility] Std Drinks [facility] History [facility] Alcohol [facility] Binge [facility] Sex Assigned At [facility] History SDOH Alcohol 2020-02-04 2020-02-04 1 [facility] - Frequency 00:00:00 00:00:00 [facility] Smoking Status Start Date Stop Date Source Current every day smoker 2020-02-06 00:00:00 [facility] Medications Ordered Filled Start Stop Current Ordering Indication Dosage Frequency Signature Comments Components Source Medication Medication Date Date Medication? Clinician (SIG) Name Name lisinopriL 2020- Yes 5mg QD Take [address] [facility] [address] (PRINIVIL,Z 02-06 tablet (5 Melia kes - ESTRIL) 5 00:00: 23:59 mg total) Me dical MG tablet 00 :00 by mouth Center daily. aspirin 81 2020- Yes 81mg QD Take [address] [facility] MG chewable 02-06 tablet (81 L ukes - tablet 00:00: 23:59 mg total) Medic al 00 :00 by mouth Center daily. clopidogreL 2020- Yes 75mg QD Take [address] [facility] (PLAVIX) 75 02-05 tablet (75 L ukes - mg tablet 00:00: 23:59 mg total) Me dical 00 :00 by mouth Center daily. atorvastati 2020- Yes 40mg QD Take [address] [facility] [address] n (LIPITOR) 02-05 tablet (40 L ukes - 40 MG 00:00: 23:59 mg total) Medica l tablet 00 :00 by mouth Center daily. mINOCYCLine 2019- No 100mg Take [address] (MINOCIN,DY 02-05 08-10 capsule [facility] - NACIN) 100 00:00: 23:59 (100 mg Med ical MG capsule 00 :00 total) by Cent er mouth every 12 (twelve) hours for 5 days. Vital Signs Vital Name Observation Time Observation Value Comments Source Systolic blood 2020-02-06 11:21:00 146 mm[Hg] [facility] Diastolic blood 2020-02-06 11:21:00 74 mm[Hg] [facility] Heart rate 2020-02-06 11:21:00 80 /min [facility] Body temperature 2020-02-06 11:21:00 37.06 [facility] Respiratory rate 2020-02-06 11:21:00 18 /min [facility] Oxygen saturation in 2020-02-06 11:21:00 94 /min [facility] Arterial blood by Medical Ce nter Pulse oximetry Body weight Measured 2020-02-05 06:35:00 120.929 kg [facility] BMI 2020-02-05 06:35:00 43.03 kg/m2 [facility] Body height 2020-02-04 22:00:00 167.6 cm [facility] Procedures Procedure Date / Time Performed Performing Clinician Chao e ARRYTHMIA IMPLANT REPORT 2020-02-20 13:41:29 Provider, Default C MA [facility] - - SCAN Scanning [facility] RHYTHM STRIP - SCAN 2020-02-08 09:00:23 Provider, Default [facility] ARRYTHMIA IMPLANT REPORT 2020-02-08 09:00:19 Provider, Default C MA [facility] - - SCAN Scanning [facility] CARDIAC CATH REPORT - 2020-02-08 09:00:17 Provider, Default [facility] SCAN [facility] TRANSFUSION SERVICE 2020-02-06 18:02:59 Provider, Default [facility] - REPORT - SCAN Scanning [facility] 2D ECHO W/ DOPPLER 2020-02-06 10:08:[address] [facility] (CW/PW/COLOR) [facility] POCT-GLUCOSE METER 2020-02-06 07:12:00 Timoteo Shipley [facility] CBC W/PLT COUNT & AUTO 2020-02-06 04:03:00 Fredrick Forrest [facility] BASIC METABOLIC PANEL 2020-02-06 04:02:[address] [facility] (7) [facility] MAGNESIUM 2020-02-06 04:02:00 [facility] POCT-GLUCOSE METER 2020-02-05 22:25:00 Timoteo Shipley [facility] XR CHEST 1 VIEW 2020-02-05 17:51:00 Eduardo Chavez [facility] - PORTABLE/BEDSIDE [facility] POCT-GLUCOSE METER 2020-02-05 16:47:00 Timoteo Shipley [facility] AICD UPGRADE - SINGLE TO 2020-02-05 16:20:[address] [facility] DUAL CHAMBER SYSTEM Medical Cent er BLOOD GAS, ARTERIAL 2020-02-05 11:36:00 Dulce Wilde [facility] - [facility] ABORH, MANUAL 2020-02-05 08:59:00 Tiffanie Conner [facility] TYPE AND SCREEN, 2020-02-05 08:30:00 Eduardo Chavez [facility] - AUTOMATED [facility] XR CHEST 1 VIEW 2020-02-05 06:55:00 Dulce Wilde [facility] s - PORTABLE/BEDSIDE [facility] ECG 12-LEAD 2020-02-05 06:40:35 Unknown, Hl7 Doctor [facility] HEMOGLOBIN A1C 2020-02-05 01:23:00 [facility] BLOOD GAS, VENOUS 2020-02-05 01:23:00 Fredrick Forrest [facility] CBC W/PLT COUNT & AUTO 2020-02-05 01:23:00 Lon Fredrick HAIRSTON [facility] BASIC METABOLIC PANEL 2020-02-05 01:22:00 LonFredrick [place] [facility] (7) [facility] MAGNESIUM 2020-02-05 01:22:00 [facility] LIPID PANEL 2020-02-05 01:22:00 [facility] SARS-COV2/RT-PCR ([facility] & 2020-02-03 20:16:00 [facility] - REF LABS) [facility] Plan of Care Planned Activity Planned Date Details Comments Source Future Scheduled 2023-02-[address] [facility] - Test 00:00:00 (procedure) [code = [facility] 75102693] Future Scheduled 2020-08-[address] Melia kes - Test 00:00:00 measurement [facility] (procedure) [code = 52562460] Future Scheduled 2020-03-[address] [facility] - Test 00:00:00 (#1) [code = [facility] INFLUENZA VACCINE (#1)] Future Scheduled 1975-09-07 DIABETIC EYE EXAM [facility] - Test 00:00:00 [code = DIABETIC EYE [facility] Center EXAM] Future Scheduled 1975-09-[address] [facility] - Test 00:00:00 examination [facility] (regime/therapy) [code = 774214899] Future Scheduled 1975-09-07 Urine screening [facility] - Test 00:00:00 protein (procedure) [facility] [code = 534057059] Future Scheduled [address] [facility] - Test 00:00:00 malignant neoplasm of Medica l Center colon (procedure) [code = 136045752] Encounters Start End Encounter Admission Attending Care Care Encounter Source Date/Time Date/Time Type Type Clinicians Facility Department ID 2020-02-18 2020-02-18 Office LOGAN Chang [id number] 08:02:50 08:54:10 Visit Eunice Escamilla [id number] Pati 4.2.7.2.686 Bella [id number] nal 9 Building 2020-02-07 2020-02-07 Orders Doctor FRANZ [id number] 00:00:00 00:00:00 Only UnassignedBOGDAN 350.1.13.10 [place] [facility] [id number] [id number] 2020-01-24 2020-01-24 Orders Doctor OSEI [id number] 00:00:00 00:00:00 Only Unassigned, BOGDAN 350.1.13.10 [place] [facility] [id number] [id number] Results Test Description Test Time Test Comments Results Result [facility] e Comments 2D Echo Ejection FractionSLEH [facility] W/Doppler(CW/PW/C 5 ECHO HEARTLAB - [facility]) 18:17:02 [facility] CPACSInterface, External Ris In - 02/06/2020 6:17 PM CDTTransthoracic Echocardiography Report (TTE) Demographics Patient Name SAMMY VALLE Date of Study 02/06/2020 RU Gender Male Visit Number [id number] Race Unknown Room Number 636 Number Date of 1965 Referring 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 LV is mildly enlarged. Inferior wall is mildly hypokinetic other LV segments contract normally. LVEF is normal (55-60%) . 2. Normal RV size and function. 3. Normal diastolic function. 4. Unable to estimate peak systolic PA pressure; Previous Study No prior studies available for comparison. Signature - - Findings Technical Quality: Technically adequate exam. Left Ventricle LV endocardium is adequately visualized with IV ultrasound enhancing agent. The left ventricle is chamber size (by vol index) is mildly enlarged (male - LVED 75-89ml/m2). No evidence of LV hypertrophy. Inferior wall is mildly hypokinetic. Other LV segments contract normally . Global LV systolic function normal . LVEF by Du's method of disk assessment is normal (55-60%) . Normal diastolic function. Left Atrium LA size is normal (16-34 ml/m2) . Right Ventricle The right ventricular chamber size and systolic function are within normal limits. RV pacing wire is visualized . Right Atrium RA size is normal. RA pacing wire is visualized . Aortic Valve Mild AoV cusp thickening. No evidence of aortic regurgitation. Mitral Valve Mild MV leaflet thickening. No evidence of mitral regurgitation. Tricuspid Valve TV structure is normal. A trace of tricuspid regurgitation. Unable to estimate peak systolic PA pressure; inadequate TR velocity signal. Pulmonic Valve Normal PV structure and function by limited views and Doppler. Aorta Aortic root size (SInus of Valsalva diameter) is normal . Pericardium No pericardial effusion is visualized. IVC/SVC/PA/PV/Pleural The estimated RA pressure [...] Mitral Valve MV Peak E-Wave: 0.75 m/s MV Peak A-Wave: 0.79 m/s E/A Ratio: 0.95 Peak Gradient: 2.24 mmHg Deceleration Time: 228.6 [...] Mean Gradient: 3.52 mmHg LVOT Diameter: 2.33 cm LVOT VTI: 19.57 cm LVOT Area: 4.26 cm^2 LVOT SV:83.4 ml LVOT CO: 7.17 l/min LVOT CI: 3.17 l/min/m^2 RVOT RVOT VTI (PW): 14.25 cm Tricuspid Valve TR Velocity: 2.44 m/s TR Gradient: 23.87 mmHg POC-Glucose meter 2020-02-06 07:29:00 Test Item Value Reference Range Interpretation Comme nts POC-Glucose Meter (test code = 131 mg/dL 70-110 H : TESTED AT [facility] [address]) [facility], [address]: Box Coverer Hand/Techni vanita ID = [id number] for KENDRICK HAN Lab Interpretation (test code = Abnormal 23605-0) [facility] [id number] 07:29:00 Test Item Value Reference Range Interpretation Comments POC-GLUCOSE METER 131 mg/dL 70-110 H : TESTED A T [facility] [address] (BEAKER) (test code = BERTINDIA R [facility], 1538) [address]: Box Coverer Hand/Techni vanita ID = [id number] for PO KENDRICK VORA Basic metabolic [id number] 04:43:00 Test Item Value Reference Range Interpretation Comments Sodium (test code = 137 meq/L 030-633 1020-2) Potassium (test code = 4.4 meq/L 3.5-5.1 Speci men slightly 2823-3) hemolyzed Chloride (test code = 101 meq/L 98-107 5-0) CO2 (test code = 28 meq/L -29 8-9) BUN (test code = 13 mg/dL 7-21 3094-0) Creatinine (test code 0.73 mg/dL 0.57-1.25 Specim en slightly = 2160-0) hemolyzed Glucose (test code = 124 mg/dL 70-105 H 2345-7) Calcium (test code = 8.2 mg/dL 8.4-10.2 L 57415-6) EGFR (test code = 112 mL/min/1.73 sq m [facility] [place] [address]-6) NOT ACCURATE CREATININE CLEARANCE IN PREDICTING GLOMERULAR FILTRATION RATE . ESTIMATED GFR I S NOT APPLICABLE FOR DIALYSIS PATIENTS. YOMI (test code = YOMI) Box Coverer Hand ID - NELLY W Lab Interpretation Abnormal (test code = 77763-6) [facility] 04:43:00 Test Item Value Reference Range Interpretation Comments Magnesium (test code = 1.9 mg/dL 1.6-2.6 Speci men 74358-1) slightly hemolyzed YOMI (test code = YOMI) Box Coverer Hand ID - NELLY W Lab Interpretation Normal (test code = 84957-0) [facility] 04:43[facility]00 Test Item Value Reference Range Interpretation Comments MAGNESIUM (BEAKER) 1.9 mg/dL 1.6-2.6 Specimen slightly (test code = 627) hemolyzed Box Coverer Hand ID - NELLY WBASIC METABOLIC [id number] 04:43:00 Test Item Value Reference Range Interpretation Comments SODIUM (BEAKER) 137 meq/L 136-145 (test code = 381) POTASSIUM (BEAKER) 4.4 meq/L 3.5-5.1 Specimen slightly (test code = 379) hemolyzed CHLORIDE (BEAKER) 101 meq/L 98-107 (test code = 382) CO2 (BEAKER) (test 28 meq/L code = 355) BLOOD UREA NITROGEN 13 mg/dL 7- (BEAKER) (test code = 354) CREATININE (BEAKER) 0.73 mg/dL 0.57-1.25 Specimen slightly (test code = 358) hemolyzed GLUCOSE RANDOM 124 mg/dL 70-105 H (BEAKER) (test code = 652) CALCIUM (BEAKER) 8.2 mg/dL 8.4-10.2 L (test code = 697) EGFR (BEAKER) (test 112 mL/min/1.73 ESTIM ATED GFR IS code = 1092) sq m NOT ACCURATE CREATININE CLEARANCE IN PREDICTING GLOMERULAR FILTRATION RATE . ESTIMATED GFR I S NOT APPLICABLE FOR DIALYSIS PATIEN TS. Box Coverer Hand ID - NELLY WC with platelet count + automated [id number] 04:32:00 Test Item Value Reference Range Interpretation Comments WBC (test code = 6690-2) 8.1 3.5- 10.5 K/L RBC (test code = 789-8) 5.09 4.63- 6.08 M/L MCHC (test code = 786-4) 29.9 32.3- 36.5 GM/DL L Hematocrit (test code = 4544-3) 45.1 % 40.1-51 MCV (test code = 787-2) 88.6 fL 79-92.2 MCH (test code = 785-6) 26.5 pg 25.7-32.2 RDW (test code = 788-0) 15.9 % 11.6-14.4 H Platelets (test code = 777-3) 265 150- 450 K/CU MM MPV (test code = 92746-1) 11.2 fL 9.4-12.4 nRBC (test code = 413) 0 0- 0 /100 WBC % Neutros (test code = 429) 65 % % Lymphs (test code = 430) 24 % % Monos (test code = 431) 9 % % Eos (test code = 432) 1 % % Baso (test code = 437) 0 % # Neutros (test code = 670) 5.27 1.78- 5.38 K/L # Lymphs (test code = 414) 1.96 1.32- 3.57 K/L # Monos (test code = 415) 0.69 0.30- 0.82 K/L # Eos (test code = 416) 0.08 0.04- 0.54 K/L # Baso (test code = 417) 0.03 0.01- 0.08 K/L Immature Granulocytes-Relative 0 % 0-1 (test code = 2801) Lab Interpretation (test code = Abnormal 77034-6) [facility] W/PLT COUNT & AUTO [id number] 04:32:00 Test Item Value Reference Range Interpretation Comments WHITE BLOOD CELL COUNT (BEAKER) 8.1 K/ L 3.5-10.5 (test code = 775) RED BLOOD CELL COUNT (BEAKER) 5.09 M/ L 4.63-6.08 (test code = 761) HEMOGLOBIN (BEAKER) (test code = 13.5 GM/DL 13.7-17.5 L 410) HEMATOCRIT (BEAKER) (test code = 45.1 % 40.1-51.0 411) MEAN CORPUSCULAR VOLUME (BEAKER) 88.6 fL 79.0-92.2 (test code = 753) MEAN CORPUSCULAR HEMOGLOBIN 26.5 pg 25.7-32.2 (BEAKER) (test code = 751) MEAN CORPUSCULAR HEMOGLOBIN CONC 29.9 GM/DL 32.3-36.5 L (BEAKER) (test code = 752) RED CELL DISTRIBUTION WIDTH 15.9 % 11.6-14.4 H (BEAKER) (test code = 412) PLATELET COUNT (BEAKER) (test 265 K/CU MM 150-450 code = 756) MEAN PLATELET VOLUME (BEAKER) 11.2 fL 9.4-12.4 (test code = 754) NUCLEATED RED BLOOD CELLS 0 /100 WBC 0-0 (BEAKER) (test code = 413) NEUTROPHILS RELATIVE PERCENT 65 % (BEAKER) (test code = 429) LYMPHOCYTES RELATIVE PERCENT 24 % (BEAKER) (test code = 430) MONOCYTES RELATIVE PERCENT 9 % (BEAKER) (test code = 431) EOSINOPHILS RELATIVE PERCENT 1 % (BEAKER) (test code = 432) BASOPHILS RELATIVE PERCENT 0 % (BEAKER) (test code = 437) NEUTROPHILS ABSOLUTE COUNT 5.27 K/ L 1.78-5.38 (BEAKER) (test code = 670) LYMPHOCYTES ABSOLUTE COUNT 1.96 K/ L 1.32-3.57 (BEAKER) (test code = 414) MONOCYTES ABSOLUTE COUNT (BEAKER) 0.69 K/ L 0.30-0.82 (test code = 415) EOSINOPHILS ABSOLUTE COUNT 0.08 K/ L 0.04-0.54 (BEAKER) (test code = 416) BASOPHILS ABSOLUTE COUNT (BEAKER) 0.03 K/ L 0.01-0.08 (test code = 417) IMMATURE GRANULOCYTES-RELATIVE 0 % 0-1 PERCENT (BEAKER) (test code = 2801) POCT-GLUCOSE [id number] 22:36:00 Test Item Value Reference Range Interpretation Comments POC-GLUCOSE METER 118 mg/dL 70-110 H [facility] ([facility]ER[facility] (test code = EVA Marcum [place], 1538) [address]: Box Coverer Hand/Techni vanita ID = [id number] for CA RPIO, RICARDO RAD, CHEST, 1 VIEW, NON [id number] 18:08:00Reason for exam:->Confirm pacemaker lead placementShould this be performed at the bedside?->YesFINAL REPORT TECHNIQUE: Frontal view of the chest. INDICATION: Confirm pacemaker lead placement COMPARISON: None. FINDINGS: LINES/TUBES: Left subclavian approach pacer device with leads projecting over the expected location of the right atrium and right ventricle.. LUNGS: The lungs are well inflated and clear. No consolidation or pulmonary edema. PLEURA: No pneumothorax or significant pleural effusion. HEART AND MEDIASTINUM: The cardiomediastinal silhouette is stable. SOFT TISSUES AND BONES: Unremarkable. IMPRESSION:No pneumothorax status post pacer placement.. Signed: Merritt Vincent MDReport Verified Date/Time: 02/05/2020 18:08:29 Reading Location: [address] Transitional Reading Room XR chest 1 view portable / [id number] 18:08:00 Interface, External Ris In - 02/05/2020 6:10 PM CDTFINAL REPORT TECHNIQUE: Frontal view of the chest. INDICATION: Confirm pacemaker lead placement COMPARISON: None. FINDINGS: LINES/TUBES: Left subclavian approach pacer device with leads projecting over the expected location ofthe right atrium and right ventricle.. LUNGS: The lungs are well inflated and clear. No consolidation or pulmonary edema. PLEURA: No pneumothorax or significant pleural effusion. HEART AND MEDIASTINUM:The cardiomediastinal silhouette is stable. SOFT TISSUES AND BONES: Unremarkable. IMPRESSION:No pneumothorax status post pacer placement.. Signed: Merritt Vincent MDReport Verified Date/Time: 02/05/2020 18:08:29 Reading Location: [address] Transitional Reading Room [facility]SE [id number] 17:06:00 Test Item Value Reference Range Interpretation Comments POC-GLUCOSE METER 91 mg/dL 70-110 : TESTED A T [facility] [address] (BEAKER) (test code = [place], 1538) [address]: Box Coverer Hand/Techni vanita ID = [id number] for JADYN DOMÍNGUEZ ECG 12 [id number] 13:06:41Interface, External Ris In - 02/05/2020 1:06 PM CDTVentricular Rate 64 BPMAtrial Rate 64 BPMP-R Interval 152 msQRS Duration 106 msQ-T Interval 380 msQTC Calculation(Bazett) 392 msP [place] 51 degreesR [place] 57 degreesT [place] -21 degreesNormal sinus rhythmIncomplete left bundle branch blockNonspecific ST and T wave abnormalityAbnormal ECGNo previous ECGs availableConfirmed by MD JHON, BLANQUITA ([id number]) on 02/05/2020 1:06:39 [facility] CampusBlood gas, [id number] 11:49:00 Test Item Value Reference Range Interpretation Comments pH, Arterial (test code = 2744-1) 7.42 7.35-7.45 pCO2, Arterial (test code = 48 35- 45 mmHg H 2019-02) pO2, Arterial (test code = 2703-7) 70 80- 90 mmHg L O2 Sat, Arterial (test code = 94.8 % 96-97 L 2707-6) HCO3, Arterial (test code = 31 mmol/L 21-29 H 1959-10) Base Excess, Arterial (test code = 5.3 mmol/L -2-3 H 1925-7) Patient Temperature (test code = 36.3 C 8310-5) FIO2 (test code = 1819) 21 % Lab Interpretation (test code = Abnormal 37592-0) [facility], [id number] 11:49:00 Test Item Value Reference Range Interpretation Comments PH ARTERIAL (BEAKER) (test code = 7.42 7.35-7.45 383) PCO2 ARTERIAL (BEAKER) (test code 48 mmHg 35-45 H = 384) PO2 ARTERIAL (BEAKER) (test code = 70 mmHg 80-90 L 385) O2 SATURATION ARTERIAL (BEAKER) 94.8 % 96.0-97.0 L (test code = 386) HCO3 ARTERIAL (BEAKER) (test code 31 mmol/L 21-29 H = 388) BASE EXCESS ARTERIAL (BEAKER) 5.3 mmol/L -2.0-3.0 H (test code = 387) PATIENT TEMPERATURE (BEAKER) (test 36.3 C code = 1818) FIO2 (BEAKER) (test code = 1819) 21.0 % Hemoglobin [id number] 10:59:00 Test Item Value Reference Range Interpretation Comments Hemoglobin A1C (test code = 4548-4) 8.3 % 4.3-6.1 H Lab Interpretation (test code = Abnormal 27982-2) [facility]MO[facility]IN [id number] 10:59:00 Test Item Value Reference Range Interpretation Comments HEMOGLOBIN A1C (BEAKER) (test code = 8.3 % 4.3-6.1 H 368) ABORH, [id number] 09:54:00 Test Item Value Reference Range Interpretation Comments ABO Grouping (test code = 2588) AB Rh Factor (test code = 2589) POS [facility]ium[facility] and screen, [id number] 09:35:00 Test Item Value Reference Range Interpretation Comments ABO/RH AUTOMATED (BEAKER) (test AB POSITIVE code = 2260) Ab Scrn (test code = 890-4) NEGATIVE [facility], [facility]ST, 1 VIEW, NON [id number] 07:14:00 Reason for exam:->hypoxiaShould this be performed at the bedside?->Yes FINAL REPORT RAD, CHEST, 1 VIEW, NON DEPT INDICATION: hypoxia COMPARISON: Prior day's exam FINDINGS: Portable frontal view of the chest. IMPRESSION: Support Lines: None Lungs and pleura: Clear lungs No pneumothorax.Heart and mediastinum: Unremarkable contours.Additional findings: None. Signed: JR Vaughn Robert MDReport Verified Date/Time: 02/05/2020 07:14:51 ReadingLocation: [facility] Reading Room Blood gas, venous 2020-02-05 02:00:00 Test Item Value Reference Range Interpretation Comments pH, Cuco (test code = 2746-6) 7.39 7.32-7.42 pCO2, Cuco (test code = 755) 52 41- 51 mmHg H pO2, Cuco (test code = 2705-2) 147 25- 40 mmHg H O2 Sat, Cuco (test code = 2711-0) 98.8 % 40-70 H HCO3, Cuco (test code = 17959-1) 30 mmol/L 21-29 H Base Excess, Cuco (test code = 4.3 mmol/L -2-3 H 1927-3) Patient Temperature (test code = 37.0 C 8310-5) FIO2 (test code = 1819) 21 % Lab Interpretation (test code = Abnormal 28706-2) [facility], [id number] 02:00:00 Test Item Value Reference Range Interpretation Comments PH VENOUS (BEAKER) (test code = 7.39 7.32-7.42 701) PCO2 VENOUS (BEAKER) (test code = 52 mmHg 41-51 H 755) PO2 VENOUS (BEAKER) (test code = 147 mmHg 25-40 H 702) O2 SATURATION VENOUS (BEAKER) 98.8 % 40.0-70.0 H (test code = 703) HCO3 VENOUS (BEAKER) (test code = 30 mmol/L 21-29 H 705) BASE EXCESS VENOUS (BEAKER) (test 4.3 mmol/L -2.0-3.0 H code = 704) PATIENT TEMPERATURE (BEAKER) (test 37.0 C code = 1818) FIO2 (BEAKER) (test code = 1819) 21.0 % Lipid [id number] 01:56:00 Test Item Value Reference Range Interpretation Comments Triglycerides (test 119 mg/dL code = 2571-8) Cholesterol (test code 192 mg/dL = 2093-3) HDL (test code = 34 mg/dL 2085-9) LDL Calculated (test 134 mg/dL code = 31913-3) YOMI (test code = YOMI) Triglyceride Reference Range: Low Risk <150 Borderline 150-199 High Risk 200-499 Very High Risk >=500 Cholesterol Reference Range: Low Risk <200 Borderline 200-239 High Risk >240 HDL Cholesterol Reference Range: Low Risk >=60 High Risk <40 LDL Cholesterol Reference Range: Optimal <100 Near Optimal 100-129 Borderline 130-159 High 160-189 Very High >=190 Box Coverer Hand GLYNN VILLEGAS [facility] 01:56:00 Test Item Value Reference Range Interpretation Comments MAGNESIUM (BEAKER) (test code = 1.8 mg/dL 1.6-2.6 627) Box Coverer Hand GLYNN VILLEGAS WBASIC METABOLIC [id number] 01:56:00 Test Item Value Reference Range Interpretation Comments SODIUM (BEAKER) 135 meq/L 136-145 L (test code = 381) POTASSIUM (BEAKER) 3.8 meq/L 3.5-5.1 (test code = 379) CHLORIDE (BEAKER) 99 meq/L 98-107 (test code = 382) CO2 (BEAKER) (test 28 meq/L 22-29 code = 355) BLOOD UREA NITROGEN 17 mg/dL 7-21 (BEAKER) (test code = 354) CREATININE (BEAKER) 0.82 mg/dL 0.57-1.25 (test code = 358) GLUCOSE RANDOM 178 mg/dL 70-105 H (BEAKER) (test code = 652) CALCIUM (BEAKER) 8.7 mg/dL 8.4-10.2 (test code = 697) EGFR (BEAKER) (test 98 mL/min/1.73 ESTIMA DANI GFR IS code = 1092) sq m NOT ACCURATE CREATININE CLEARANCE IN PREDICTING GLOMERULAR FILTRATION RATE . ESTIMATED GFR I S NOT APPLICABLE FOR DIALYSIS PATIEN TS. Box Coverer Hand ID Eunice VILLEGAS WLIPID [id number] 01:56:00 Test Item Value Reference Range Interpretation Comments TRIGLYCERIDES (BEAKER) (test code = 119 mg/dL 540) CHOLESTEROL (BEAKER) (test code = 192 mg/dL 631) HDL CHOLESTEROL (BEAKER) (test code 34 mg/dL = 976) LDL CHOLESTEROL CALCULATED (BEAKER) 134 mg/dL (test code = 633) Triglyceride Reference Range: Low Risk <150 Borderline 150-199 High Risk 200-499 Very High Risk >=500Cholesterol Reference Range: Low Risk <200 Borderline 200-239 High Risk >240HDL Cholesterol Reference Range: Low Risk >=60 High Risk <40LDL Cholesterol Reference Range: Optimal <100 Near Optimal 100-129 Borderline 130-159 High 160-189 Very High >=190 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 Hand ID - DONNAWCBC W/PLT COUNT & AUTO [id number] 01:42:00 Test Item Value Reference Range Interpretation Comments WHITE BLOOD CELL COUNT (BEAKER) 11.0 K/ L 3.5-10.5 H (test code = 775) RED BLOOD CELL COUNT (BEAKER) 4.69 M/ L 4.63-6.08 (test code = 761) HEMOGLOBIN (BEAKER) (test code = 12.7 GM/DL 13.7-17.5 L 410) HEMATOCRIT (BEAKER) (test code = 41.3 % 40.1-51.0 411) MEAN CORPUSCULAR VOLUME (BEAKER) 88.1 fL 79.0-92.2 (test code = 753) MEAN CORPUSCULAR HEMOGLOBIN 27.1 pg 25.7-32.2 (BEAKER) (test code = 751) MEAN CORPUSCULAR HEMOGLOBIN CONC 30.8 GM/DL 32.3-36.5 L (BEAKER) (test code = 752) RED CELL DISTRIBUTION WIDTH 15.9 % 11.6-14.4 H (BEAKER) (test code = 412) PLATELET COUNT (BEAKER) (test 291 K/CU MM 150-450 code = 756) MEAN PLATELET VOLUME (BEAKER) 11.0 fL 9.4-12.4 (test code = 754) NUCLEATED RED BLOOD CELLS 0 /100 WBC 0-0 (BEAKER) (test code = 413) NEUTROPHILS RELATIVE PERCENT 69 % (BEAKER) (test code = 429) LYMPHOCYTES RELATIVE PERCENT 20 % (BEAKER) (test code = 430) MONOCYTES RELATIVE PERCENT 10 % (BEAKER) (test code = 431) EOSINOPHILS RELATIVE PERCENT 0 % (BEAKER) (test code = 432) BASOPHILS RELATIVE PERCENT 0 % (BEAKER) (test code = 437) NEUTROPHILS ABSOLUTE COUNT 7.60 K/ L 1.78-5.38 H (BEAKER) (test code = 670) LYMPHOCYTES ABSOLUTE COUNT 2.23 K/ L 1.32-3.57 (BEAKER) (test code = 414) MONOCYTES ABSOLUTE COUNT (BEAKER) 1.09 K/ L 0.30-0.82 H (test code = 415) EOSINOPHILS ABSOLUTE COUNT 0.01 K/ L 0.04-0.54 L (BEAKER) (test code = 416) BASOPHILS ABSOLUTE COUNT (BEAKER) 0.02 K/ L 0.01-0.08 (test code = 417) IMMATURE GRANULOCYTES-RELATIVE 0 % 0-1 PERCENT (BEAKER) (test code = 2801) SARS-CoV2/RT-PCR ([facility])2020-02-04 10:32:00 Test Item Value Reference Range Interpretation Comments SARS-COV2/RT-PCR Negative Not Detected, (test code = Negative, See 91532-7) external report for linked test SARS-COV-2 [facility] PER[facility] (test code = 13356-6) YOMI (test code = Negative result for this YOMI) test determines that SARS-CoV-2 RNA was not present in the specimen above the Limit of Detection (LOD). However, Negative results do not preclude SARS-CoV-2 infection and should not be used as the sole basis for treatment or patient management decisions. Negative results must be combined with clinical observations, patient history, and epidemiological information. A false negative result may occur if a specimen is improperly collected, transported or handled. A false negative result should be considered if patient's recent exposures or clinical presentation indicate that COVID-19 (SARS-CoV-2) is likely and diagnostic tests for other causes of illness are negative. Re-testing should be considered in cases of suspected [...] Food and Drug Administration (FDA) cleared or approved. This is a modified version of an approved [...] of the Act. Fact Sheet for Healthcare Providers:https://www.DOZ/sites/default/f angelina/product/documents/F act_Sheet_HC_Providers_L mgm_MXYC-NxL-8.pdf Fact Sheet for Healthcare Patients:https://www.[employer]/sites/default/fi les/product/documents/Fa ct_Sheet_Patients_Lyra_S ARS-CoV-2.pdf Performing Laboratory:[facility] [place] [address] [facility])2020-02-04 10:32:00 Test Item Value Reference Range Interpretation Comments SARS-COV2/RT-PCR (test Negative Not Detected, Negative, code = 2658136) See external report for linked test SARS-COV-2 PERFORMING [facility] (test code = 1167155) Negative result for this test determines that SARS-CoV-2 RNA was not present in the specimen above the Limit of Detection (LOD). However, Negative results do not preclude SARS-CoV-2 infection and should not be used as the sole basis for treatment or patient management decisions. Negative results mustbe combined with clinical observations, patient history, and epidemiological information. A false negative result may occur if a specimen is improperly collected, transported or handled. A false negative result should be considered if patient's recent exposures or clinical presentation indicate that COVID-19 (SARS-CoV-2) is likely and diagnostic tests for other causes of illness are negative. Re-testing should be considered in cases of suspected false negatives.The limit of detection for this assay is 800 copies/mL.This SARS CoV-2 test is a real-time RT-PCR test intended for the qualitative detection of nucleic acid from SARS-CoV-2 in a nasopharyngeal swab specimen collected from individuals susp ected of COVID-19 by their healthcare provider.This test has not been Food and Drug Administration (FDA) cleared or approved. This is a modified version of an approved [...] is revoked under Section 564(g) of the Act.Fact Sheet for Healthcare Providers:https://www.Book[employer]Table.[employer]/sites/default/files/product/documents/Fact_Shee p_QB_Prrdjvxni_Aevw_HAIM-XnW-9.pdfFact Sheet for Healthcare Patients:https://www.Book[employer]/sites/default/files/product/ documents/Faiu_Mypuk_Kxiieykk_Okbb_IVQS-ZlL-1.pdfPerforming Laboratory:[facility] [place] [address]
--- OUTSIDE RECORDS SUMMARY | 2020-03-02 10:32 | XMS REPORT | Summary of Care ---
:1965 Author Organization [facility] Address [address] [place] [address] Care Team Providers Name Role Phone JOSEFINA Lucero Primary Care Provider Reason for Referral (KERLINE) Status Reason Specialty Diagnoses / Referred By Referred To Procedures Contact Contact New Request Cardiology Diagnoses Sick sinus syndrome Ekta Lucero FNP Procedures CONSULT/REFERRAL CARDIOLOGY [address] [place] [address] Reason for Visit Reason Comments Follow-up Post hospitalization Encounter Details Date Type Department Care Team Description 02/07/[address] [facility] Ekta Mejia FNP [address] [place] [address] Sick sinus syndrome (Primary Dx); [facility] Primary Borderline diabetes mellitus; Clinic Dyspnea on exertion; [address] Cigarette nicotine dependenc e without complication; [place], [place] Sleep-disordere d breathing [phone] Allergies Active Allergy Reactions Severity Noted Date Comments Azithromycin Swelling High 08/11/2018 Throat swells Metoprolol Other - See comments 07/11/2018 Lowers heart rate too low documented as of this encounter (statuses as of 02/07/2020) Medications Medication Sig Dispensed Refills Start End Date Status Date nitroglycerin Place 1 Tab 30 Tab 30 Acti ve (NITROSTAT) 0.4 mg under the 4 sublingual tablet tongue every 5 (five) minutes as needed for Chest pain. albuterol 90 Inhale 2 Puffs 8.5 g 3 Ac tive mcg/actuation every 6 (six) 0 inhalerIndications: hours as SOB (shortness of needed for breath) on exertion Wheezing or Shortness of Breath. fluticasone Inhale 1 Puff 1 Each 11 Acti ve propion-salmeterol 2 (two) times 0 (AIRDUO RESPICLICK) daily. 113-14 mcg/actuation AePBIndications: Dyspnea on exertion, Cigarette nicotine dependence without complication, Sleep-disordered breathing Pitavastatin Take 1 tablet 90 tablet 3 Act warren (LIVALO) 4 mg by mouth 0 TabIndications: daily. Mixed hyperlipidemia clopidogreL (PLAVIX) Take 1 tablet 90 tablet 3 Active 75 mg by mouth 0 tabletIndications: daily. Nonobstructive atherosclerosis of coronary artery metformin ER 500 mg Take 1 tablet 60 tablet 5 Active 24 hr by mouth 2 0 tabletIndications: (two) times Borderline diabetes daily with mellitus meals. traMADol 50 mg Take 1 tablet 28 tablet 0 A ctive tabletIndications: by mouth every 0 Bilateral leg and 6 (six) hours foot pain as needed for Pain (scale 4-6). lisinopril 40 mg Take 1 tablet 30 tablet 5 Active tabletIndications: by mouth 0 Essential daily. hypertension meloxicam 7.5 mg Take 1 tablet 30 tablet 0 Active tabletIndications: by mouth 0 Lower extremity daily. pain, bilateral budesonide-formotero Inhale 2 Puffs 10.2 g 11 Active L (SYMBICORT) 2 (two) times 0 160-4.5 daily. mcg/actuation inhalerIndications: Dyspnea on exertion, Cigarette nicotine dependence without complication, Sleep-disordered breathing budesonide-formotero Inhale 2 Puffs 10.2 g 11 08/0 12/21 Discontinued L (SYMBICORT) 2 (two) times 0 20 (R eorder) 160-4.5 daily. mcg/actuation inhalerIndications: Dyspnea on exertion, Cigarette nicotine dependence without complication, Sleep-disordered breathing documented as of this encounter (statuses as of 02/07/2020) Active Problems Problem Noted Date Morbid obesity with body mass index of 40.0-49.9 07/17 Nonobstructive atherosclerosis of coronary artery 02/2018 Essential hypertension 12/07/2013 HLD (hyperlipidemia) 12/07/2013 Borderline diabetes mellitus 12/07/2013 Obesity (BMI 30-39.9) 12/07/2013 Tobacco abuse 12/07/2013 Atypical chest pain 11/20/2013 documented as of this encounter (statuses as of 02/07/2020) Immunizations Name Administration Dates Next Due Influenza Virus Vaccine (3+ yrs) 09/19/2013 Influenza Virus Vaccine Quad .5 mL IM 04/20/2019 6+ MO Pneumococcal Polysaccharide, PPSV23 04/20/2019, 09/19/2013 (PNEUMOVAX) TDAP 04/20/2019 Zoster Vaccine Recombinant 04/20/2019 Zoster(Zostavax)(Shingles) 04/20/2019 (Deferred: Immunizatio ns Up to Date) documented as of this encounter Social History Tobacco Use Types Packs/Day Years Used Date Current Every Day Smoker 0.25 26 Smokeless Tobacco: Former User Comments: Down to 10 cigs a day Alcohol Use Drinks/Week oz/Week Comments No Stopped in 2012 Sex Assigned at Date Recorded Not on file COVID-19 Exposure Response Date Recorded In the last month, have you been in contact with No / Unsure 02/07/2020 12:31 PM CDT someone who was confirmed or suspected to have Coronavirus / COVID-19? documented as of this encounter Last Filed Vital Signs Vital Sign Reading Time Taken Comments Blood Pressure 141/76 02/07/2020 12:30 PM CDT Pulse 91 02/07/2020 12:30 PM CDT Temperature 36.7 C (98.1 F) 02/07/2020 12:30 PM CDT Respiratory Rate 24 02/07/2020 12:30 PM CDT Oxygen Saturation 96% 02/07/2020 12:30 PM CDT Inhaled Oxygen Concentration - - Weight 118.9 kg (262 lb 3.2 oz) 02/07/2020 12:30 PM CDT Height 167.6 cm (5' 6") 02/07/2020 12:30 PM CDT Body Mass Index 42.32 02/07/2020 12:30 PM CDT documented in this encounter Progress Notes Ekta Lucero FNP - 02/07/2020 1:30 PM CDT Cc: Chief Complaint Patient presents with Follow-up Post hospitalization HPI Juan Miguel Langston is a 54 year old male being seen today for post hospitalization from late last week. Pt was admitted on via EMS to [facility] for chest pain and AMS. On arrival ABG wereelevated with pH 7.2 and hypercapnic 65. Pt placed on BiPap for the night. Repeat ABG 7.33/57. No Troponin elevation. During the night he had multiple sinus pauses up to 7 seconds. [facility] where Dr Sukhdev Elam placed AICD. He was discharged yesterday on fluid restrictions and to follow up with Dr Chang in Cardiology kerline. He already has an appointment. States he is feeling good. Left arm in a shoulder immobilizer. States the incision is tender but not painful. No dizziness or SOB. Needs refills on his symbicort through [facility]. Denies fevers or chills. Random blood sugar was 155 today in clinic Allergies Juan Miguel is allergic to azithromycin and metoprolol. Medications Outpatient Medications Prior to Visit Medication Sig Dispense Refill meloxicam 7.5 mg tablet Take 1 tablet by mouth daily. 30 tablet 0 lisinopril 40 mg tablet Take 1 tablet [...] abuse Past Surgical History: Procedure Laterality Date WI RIGHT HEART CATH O2 SATURATION & CARDIAC OUTPUT x 3 last done in 2017 at [facility] Social History Socioeconomic History Marital status: Single Spouse name: Not on file Number of children: Not on file Years of education: Not on file Highest education level: Not on file Occupational History Not on file Social Needs Financial resource strain: Not on file Food insecurity Worry: Not on file Inability: Not on file Transportation needs Medical: Not on file Non-medical: Not on [...] Yes Partners: Female control/protection: Post-menopausal Lifestyle Physical activity Days per week: Not on file Minutes per session: Not on file Stress: Not on file Relationships Social connections Talks on phone: Not on file Gets together: Not on file Attends islam service: Not on file Active member of club or organization: Not on file Attends meetings of clubs or organizations: Not on file Relationship status: Not on file Intimate partner violence Fear of current or ex partner: Not on file Emotionally abused: Not on file Physically abused: Not on file Forced sexual activity: Not on file Other Topics Concern Not on file Social History Narrative 01/11/2019 Lives with girlfriend of 2 years. Family History Problem Relation Age of Onset Coronary Heart Disease Mother of [place] at age 61 Diabetes Maternal Grandmother Review of Systems Constitutional: Positive for fatigue. HENT: Negative. Respiratory: Positive for cough, shortness of breath and wheezing. Gastrointestinal: Negative. Genitourinary: Negative. Musculoskeletal: Positive for back pain. Skin: Negative. Neurological: Positive for dizziness and weakness. Psychiatric/Behavioral: Negative. Vital Signs BP (!) 141/76 (BP Location: Left arm, Patient Position: Sitting) | Pulse 91 | Temp 36.7 C (98.1 F) (Oral) | Resp 24 | Ht 5' 6" (1.676 m) | Wt 262 lb 3.2 oz (118.9 kg) | SpO2 96% | BMI 42.32 kg/m Physical Exam Vitals signs and nursing note reviewed. Constitutional: Appearance: Normal appearance. He is obese. HENT: Right Ear: Tympanic membrane normal. Left Ear: Tympanic membrane normal. Nose: Congestion and rhinorrhea present. Eyes: Extraocular Movements: Extraocular movements intact. Conjunctiva/sclera: Conjunctivae normal. Neck: Musculoskeletal: Normal range of motion. Cardiovascular: Rate and Rhythm: Normal rate and regular rhythm. Pulses: Normal pulses. Musculoskeletal: Right lower leg: Edema present. Left lower leg: Edema present. Skin: Comments: Left upper anterior chest incision clean and dry. Minimal bloody exudate. No redness or swelling along incision line Neurological: Mental Status: He is alert. Assessment/Plan 1. Borderline diabetes mellitus - POCT GLUCOSE(AGE >30DAYS) 2. Sick sinus syndrome - CONSULT/REFERRAL CARDIOLOGY 3. Dyspnea on exertion - budesonide-formoteroL (SYMBICORT) 160-4.5 mcg/actuation inhaler; Inhale 2 Puffs 2 (two) times daily. Dispense: 10.2 g; Refill: 11 4. Cigarette nicotine dependence without complication - budesonide-formoteroL (SYMBICORT) 160-4.5 mcg/actuation inhaler; Inhale 2 Puffs 2 (two) times daily. Dispense: 10.2 g; Refill: 11 5. Sleep-disordered breathing - budesonide-formoteroL (SYMBICORT) 160-4.5 mcg/actuation inhaler; Inhale 2 Puffs 2 (two) times daily. Dispense: 10.2 g; Refill: 11 Medication Provided through [facility] program Lilian Christianson LVN - 02/07/2020 1:30 PM CDTChgina Langston is a 54 year old male Patient here today for follow up post hospitalization. Reports 4 pain on scale 0/10, MD notified. Reviewed medications and allergies with patient today. Fall Risk Assessment/Screening performed with patient today and patient is not at risk for falls. documented in this encounter Plan of Treatment Date Type Specialty Care Team Description 02/18/2020 Office Visit Cardiology Eunice Chang M D [address] [place] [address] [address] [place], [place] [address] 02/21/2020 Office Visit Family Medicine Perez Lugo MD [address] [place] [address] Dr [address] [place], [place] [address] 04/25/2020 Office Visit Pulmonary Disease Mayela Funes DO [address] [place] [phone] Health Maintenance Due Date Last Done Comments COLON CANCER SCREENING ANNUAL FIT/FOBT 09/07/2015 COLON CANCER SCREENING FIT DNA EVERY 3 09/07/2015 YEARS COLON CANCER SCREENING SIGMOIDOSCOPY EVERY 09/07/2015 5 YEARS COLONOSCOPY 09/07/2015 Colorectal Cancer Screening 09/07/2015 Zoster Recombinant Vaccine (SHINGRIX) (2 06/15/2019 019 of 2) INFLUENZA VACCINE (#1) 2020 04/20/2019, 09/19/2013 Depression Screening 08/16/2020 08/16/2019 DTaP,Tdap,and Td Vaccines (2 - Td) 04/20/2029 04/20/2019 PNEUMOCOCCAL 0-64 YEARS COMBINED SERIES Completed 04/20/20 19, 09/19/2013 documented as of this encounter Procedures Procedure Name Priority Date/Time Associated Diagnosis Comme nts POCT GLUCOSE(AGE Routine 02/07/2020 12:54 PM Borderline diabet es Results for this >30DAYS) CDT mellitus procedure are i n the results section. documented in this encounter Results POCT GLUCOSE(AGE >30DAYS) (02/07/2020 12:54 PM CDT) Pathologist Sig nature POCT Glu (age>30days) 155 (A) 70 - 110 mg/dL Specimen Blood - CAPILLARY documented in this encounter Visit Diagnoses Diagnosis Sick sinus syndrome - Primary Sinoatrial node dysfunction Borderline diabetes mellitus Other abnormal glucose Dyspnea on exertion Other dyspnea and respiratory abnormalit y Cigarette nicotine dependence without co mplication Tobacco use disorder Sleep-disordered breathing Other sleep disturbances documented in this encounter Insurance Payer Benefit Plan / Subscriber ID Effective Phone Address T ype Group Dates [facility] [id number] 2019-Prese [phone] [facility] [address] [place] [address] documented as of this encounter
--- OUTSIDE RECORDS SUMMARY | 2020-03-02 10:32 | XMS REPORT | Summary of Care ---
:1965 Author Organization [facility] Address [address] [place] [address] Care Team Providers Name Role Phone DENG LuceroP Primary Care Provider Reason for Visit Reason Comments Notification Encounter Details Date Type Department Care Team Description 02/05/2020 Telephone [facility] Cardiology- Jocelyn Chang MD Notification [place] [address] [facility] [address] [facility], [address] [place] [address] [place] [phone] Allergies Active Allergy Reactions Severity Noted Date Comments Azithromycin Swelling High 08/11/2018 Metoprolol Other - See comments 07/11/2018 Lowers heart rate too low documented as of this encounter (statuses as of 02/05/2020) Medications Medication Sig Dispensed Refills Start Date [...] as of this encounter (statuses as of 02/05/2020) Active Problems Problem Noted Date Morbid obesity with body mass index of 40.0-49.9 07/17 Nonobstructive atherosclerosis of coronary artery 02/2018 Essential hypertension 12/07/2013 HLD (hyperlipidemia) 12/07/2013 Borderline diabetes mellitus 12/07/2013 Obesity (BMI 30-39.9) 12/07/2013 Tobacco abuse 12/07/2013 Atypical chest pain 11/20/2013 documented as of this encounter (statuses as of 02/05/2020) Immunizations Name Administration Dates Next Due Influenza [...] Assigned at Date Recorded Not on file documented as of this encounter Last Filed Vital Signs Not on filedocumented in this encounter Miscellaneous Notes Telephone Encounter - Megan Larson - 02/05/2020 8:18 AM CDTPatient's girlfriend is calling to notify Dr Chang patient was admitted at the hospital for chest pain and now he is being transferred to [place] to get a pacemaker. documented in this encounter Plan of Treatment Date Type Specialty Care Team Description 02/18/2020 Office Visit Cardiology Eunice Chang M D [address] [place] [address] [address] [place], [place] [address] [phone] 02/21/2020 Office Visit Family Medicine Perez Lugo MD [address] [place] [address] Dr [address] [place] [address] [phone] 04/25/2020 Office Visit Pulmonary Disease Mayela Funes DO [address] [place] [phone] Health Maintenance Due Date Last Done Comments [...] Phone Address Typ e / Group Dates [facility] D[facility] [id number] 2019-Prese [phone] [facility] [address] [place] [address] [place] ROSEAN[place] COShelby [id number] 2018-Pres [phone] [facility] [address] [place] [id number] documented as of this encounter
--- OUTSIDE RECORDS SUMMARY | 2020-03-02 10:33 | XMS REPORT | Summary of Care ---
:1965 Author Organization [facility] - [facility] Address [address] [place] [address] Care Team Providers Name Role Phone JOSEFINA Lucero Primary Care Provider Reason for Visit Reason Comments Follow-up (Routine) Status Reason Specialty Diagnoses / Procedures Referred By Jossue hintonerred To Contact Contact Closed Cardiology Diagnoses Nonobstructive atherosclerosis of coronary artery Ekta Lucero FNP Procedures CONSULT/REFERRAL CARDIOLOGY [address] [place] [address] Encounter Details Date Type Department Care Team Description 02/18/2020 Office Visit [facility] Eunice Chang M D Essential hypertension (Primary Dx); Cardiology- [address] Chest pain, unspecified type ; [address] [place] [address] DRIVE Pacemaker; Drive, [address] Morbid obesity; [place], [place] Nonobstructive atherosclerosis of coronary artery; [id number] Mixed hyperlipidemia; [phone] BRIDGET (obstructive sleep apnea); [phone] Chronic heart f ailure with preserved ejection fraction (Fax) Allergies Active Allergy Reactions Severity Noted Date Comments Azithromycin Swelling High 08/11/2018 Throat swells Metoprolol Other - See comments 07/11/2018 Lowers heart rate too low documented as of this encounter (statuses as of 02/18/2020) Medications Medication Sig Dispensed Refills Start Date [...] tabletIndications: mouth daily. Lower extremity pain, bilateral budesonide-formoteroL Inhale 2 Puffs 2 10.2 g 11 02/07/2020 Active (SYMBICORT) 160-4.5 (two) times mcg/actuation daily. inhalerIndications: Dyspnea on exertion, Cigarette nicotine dependence without complication, Sleep-disordered breathing nitroglycerin 0.[address] 1 tablet 1 Bottle 5 02/18/2020 Active sublingual under the tongue tabletIndications: every 5 (five) Chest pain, unspecified minutes as needed type for Chest pain. documented as of this encounter (statuses as of 02/18/2020) Active Problems Problem Noted Date BRIDGET (obstructive sleep apnea) 02/18/2020 Morbid obesity with body mass index of 40.0-49.9 07/17 Nonobstructive atherosclerosis of coronary artery 02/2018 Essential hypertension 12/07/2013 HLD (hyperlipidemia) 12/07/2013 Borderline diabetes mellitus 12/07/2013 Obesity (BMI 30-39.9) 12/07/2013 Tobacco abuse 12/07/2013 Atypical chest pain 11/20/2013 documented as of this encounter (statuses as of 02/18/2020) Immunizations Name Administration Dates Next Due Influenza [...] been in contact with No / Unsure 02/18/2020 8:16 AM CDT someone who was confirmed or suspected to have Coronavirus / COVID-19? documented as of this encounter Last Filed Vital Signs Vital Sign Reading Time Taken Comments Blood Pressure 151/90 02/18/2020 8:37 AM CDT Pulse 90 02/18/2020 8:35 AM CDT Temperature - - Respiratory Rate 19 02/18/2020 8:35 AM CDT Oxygen Saturation 94% 02/18/2020 8:35 AM CDT Inhaled Oxygen Concentration - - Weight 124.1 kg (273 lb 11.2 oz) 02/18/2020 8:35 AM CDT Height 167.6 cm (5' 6") 02/18/2020 8:35 AM CDT Body Mass Index 44.18 02/18/2020 8:35 AM CDT documented in this encounter Progress Notes Eunice Chang MD - 02/18/2020 9:00 AM CDT CARDIOLOGY CLINIC NOTE 02/18/2020 Reason for Referral/Presenting Complaint: s/p pacemaker PCP: Ekta Lucero History of Present Illness: Juan Miguel Langston is a 54 years old male with history of DM, HTN, HLD, non obstructive CAD, morbid obesity, BRIDGET not on C-PAP and smoking. Chronic chest pain for years. He had LHC in [facility] in 2016 showing non obstructive CAD. Apparently had LHC In 2017 in [facility]--no PCI done. He has daily chest pain. It is central and left sided sharp pain, radiating to the left arm, more so when lying flat, non exertional, actually less when walking. Associated with mild SOB. NTG does not help. In 02/2020 he was admitted in [facility] for several significant sinus pauses on telemetry, some measuring > 7 seconds in length, subsequently underwent Medtronic dual chamber pacemaker on 02/05/2020. Currently feeling well. 02/05/2020- implant of MDT DDD pacemaker via left subclavian vein [place] 05/2019 EKG--Inferior ST depression ECHO--Normal LVEF Lexiscan nuc MPI ECHO 02/2020 Left Ventricle LV endocardium is adequately visualized [...] normal (55-60%) . Normal diastolic function. Left AtriumLA size is normal (16-34 ml/m2) . Right VentricleThe right ventricular chamber size and systolic function [...] and function by limited views and Doppler. AortaAortic root size (SInus of Valsalva diameter) is normal . PericardiumNo pericardial effusion is visualized. IVC/SVC/PA/PV/PleuralThe estimated RA pressure by IVC dynamics 0-5mmHg . Review of Systems: General: (-) fever, (-) [...] Current Outpatient Medications Medication Sig Dispense Refill nitroglycerin 0.[address] 1 tablet under the tongue every 5 (five) minutes as needed for Chest pain. 1 Bottle 5 budesonide-formoteroL (SYMBICORT) 160-4.5 mcg/actuation inhaler Inhale 2 Puffs 2 (two) times daily. 10.2 g 11 meloxicam 7.5 mg tablet Take 1 tablet by mouth daily. 30 tablet 0 lisinopril 40 mg tablet Take 1 tablet by mouth daily. 30 tablet 5 clopidogreL (PLAVIX) 75 mg tablet Take 1 [...] 2 (two) times daily. 1 Each 11 traMADol 50 mg tablet Take 1 tablet by mouth every 6 (six) hours as needed for Pain (scale 4-6).28 tablet 0 nitroglycerin (NITROSTAT) 0.4 mg sublingual tablet [...] [place] at age 61 Diabetes Maternal Grandmother Physical Examination: BP (!) 151/90 | Pulse 90 | Resp 19 | Ht 5' 6" (1.676 m) | Wt 273 lb 11.2 oz (124.1 kg) | SpO2 94% | BMI 44.18 kg/m Constitutional: alert and oriented x 3 (person, place and date/time); no apparent distress ENT: normocephalic atraumatic, supple, no lymphadenopathy, no bruits, no JVD Lungs: clear to auscultation bilaterally Cardiovascular: S1, S2 normal, regular; no murmurs, rubs or gallops GI: soft; non-tender; non-distended; normoactive bowel sounds : not examined Musculoskeletal: Extremities: no clubbing, cyanosis, + trace edema Skin: no rashes Neuro: no focal deficits Cardiovascular testing: EKG: Normal sinus rhythm T wave abnormality, consider inferior ischemia Echocardiogram: Left ventricular systolic function is normal. Ejection Fraction = 60-65%. There is trace mitral regurgitation. Mild pulmonic valvular regurgitation. Cardiac Cath: Left Main Artery: angiographically normal. LAD: angiographically normal. Circumflex: LMI. High OM has mid to distal myocardial bridge. RIGHT CORONARY ARTERY: RCA: LMI with 40-50% lesion in mid RCA. Non dominant vessel. LVEDP 20 Assessment/Plan: ICD-10-CM ICD-9-CM 1. Essential hypertension I10 401.9 2. Chest pain, unspecified type R07.9 786.50 3. Pacemaker Z95.0 V45.01 4. Morbid obesity E66.01 278.01 5. Nonobstructive atherosclerosis of coronary artery I25.10 414.00 6. Mixed hyperlipidemia E78.2 272.2 7. BRIDGET (obstructive sleep apnea) G47.33 327.23 Sinus pause, s/p Medtronic pacemaker--Incision healing well. Will schedule a pacemaker check in 1 month. Usual incisional care discussed. Chest pain--Non-cardiac. 4 LHC in last 5 years all showing no significant obstruction. Poor responseto NTG. Negative nuclear stress test. Will not pursue any cardiac testing. Non cardiac evaluation. CAD--Non obstructive. Continue plavix and livalo. HTN--Elevated today. Advised to check regularly for adjustment. HLD--On livalo. HFpEF--Trace leg edema. LVEDP high on cath. Possible HFpEF. Discussed low salt diet, weight loss andmay consider lasix. Patient was counseled for lifestyle modifications including: diet, exercise, weight loss and smokingcessation. RTC 6 months Eunice Chang MD, FACC, DOROTHY Sales Project Administrator, Division of Cardiology [facility] documented in this encounter Plan of Treatment Date Type Specialty Care Team Description 02/21/2020 Office Visit Family Medicine Perez Lugo MD [address] [place] [address] Dr Laboy [address] [place], [place] [address] 03/28/2020 Nurse Visit Cardiology Visit, Adc Nurse 04/25/2020 Office Visit Pulmonary Disease Mayela Funes, [address] [place] [address] 08/20/2020 Office Visit Cardiology Eunice Chang M D [address] [place] [address] [address] [place], [place] [address] Health Maintenance Due Date Last Done Comments [...] Essential hypertension - Primary Unspecified essential hypertension Chest pain, unspecified type Pacemaker Cardiac pacemaker in situ Morbid obesity Nonobstructive atherosclerosis of godfrey ry artery Mixed hyperlipidemia BRIDGET (obstructive sleep apnea) Obstructive sleep apnea (adult) (pediatr ic) Chronic heart failure with preserved eje ction fraction documented in this encounter Insurance Payer Benefit Plan Subscriber ID Effective Phone Address Typ e / Group Dates [employer] [place] [employer] [place] [id number] 2018-Pres [phone] [facility] C ent [address] [place] [address] documented as of this encounter
--- OUTSIDE RECORDS SUMMARY | 2020-03-02 10:33 | XMS REPORT | Summary of Care ---
:1965 Author Organization [facility] - Health Address [address] [place] [address] Care Team Providers Name Role Phone Nic JOSEFINA Primary Care Provider Encounter Details Date Type Department Care Team Description 02/13/2020 Orders Only [facility] Doctor Unassigned, No 301 [facility] [place] [address] [address] [place] [address] Allergies Active Allergy Reactions Severity Noted Date Comments Azithromycin Swelling High 08/11/2018 Throat swells Metoprolol Other - See comments 07/11/2018 Lowers heart rate too low documented as of this encounter (statuses as of 02/15/2020) Medications Medication Sig Dispensed Refills Start Date [...] as of this encounter (statuses as of 02/15/2020) Active Problems Problem Noted Date Morbid obesity with body mass index of 40.0-49.9 07/17 Nonobstructive atherosclerosis of coronary artery 02/2018 Essential hypertension 12/07/2013 HLD (hyperlipidemia) 12/07/2013 Borderline diabetes mellitus 12/07/2013 Obesity (BMI 30-39.9) 12/07/2013 Tobacco abuse 12/07/2013 Atypical chest pain 11/20/2013 documented as of this encounter (statuses as of 02/15/2020) Immunizations Name Administration Dates Next Due Influenza [...] Office Visit Cardiology Eunice Chang M D [address] [place] [address] [address] [place], [place] [address] 02/21/2020 Office Visit Family Medicine Perez Lugo MD [address] [place] [address] Dr Lab[address] [place] [address] [phone] 04/25/2020 Office Visit Pulmonary Disease Mayela Funes, [address] [place] [address] Health Maintenance Due Date Last Done [...] Name Priority Date/Time Associated Diagnosis Comme nts EXTERNAL PROVIDER - ADC Routine 02/13/2020 12:01 AM CARDIOLOGY CDT documented in this encounter Results Not on filedocumented in this encounter Insurance Payer Benefit Plan Subscriber ID Effective Phone Address Typ e / Group Dates [employer] [place] [id number] 2018-Pres [phone] [facility] H C I H C ent [address] [place] [address] ROSEANNA CONDON [id number] 2019-Prese [phone] PRIMARY CARE PRIMARY CARE nt [address] [place] [address] documented as of this encounter
--- OUTSIDE RECORDS SUMMARY | 2020-03-02 10:33 | XMS REPORT | Summary of Care ---
:1965 Author Organization [facility] Address [address] [place] [address] Care Team Providers Name Role Phone DENG LuceroP Primary Care Provider Reason for Visit Reason Comments Notification Encounter Details Date Type Department Care Team Description 02/06/2020 Telephone [facility] Cardiology- Jocelyn Chang MD Notification [place] [address] [facility] [address] [facility], [address] [place] [address] [place] [address] [phone] Allergies Active Allergy Reactions Severity Noted Date Comments Azithromycin Swelling High 08/11/2018 Throat swells Metoprolol Other - See comments 07/11/2018 Lowers heart rate too low documented as of this encounter (statuses as of 02/07/2020) Medications Medication Sig Dispensed Refills Start Date [...] this encounter Miscellaneous Notes Telephone Encounter - Richa Langston RN - 02/07/2020 2:[address] Chang as FYI. elephone Encounter - Cesar Muniz - 02/06/2020 4:08 PM CDT Applications Development Analyst from [facility], Dr. Elam, calling to notify Dr. Chang that he put patient on a pacemaker. Please call if any further questions. documented in this encounter Plan of Treatment Date Type Specialty Care Team Description 02/18/2020 Office Visit Cardiology Eunice Chang M D [address] [place] [address] [address] [place] [address] [phone] 02/21/2020 Office Visit Family Medicine Perez Lugo MD [address] [place] [address] Dr Lab[address] [place], [place] [address] [phone] 04/25/2020 Office Visit Pulmonary Disease Mayela Funes, [address] [place] [phone] Health Maintenance Due Date Last Done [...] Typ e / Group Dates ROSEANNA CONDON [id number] 2019-Prese [phone] PRIMARY CARE PRIMARY CARE nt [address] [place] [address] [employer] [place] ROSEANNA [place] [id number] 2018-Pres [phone] [facility] C I H C ent [address] [facility] [address] documented as of this encounter
--- OUTSIDE RECORDS SUMMARY | 2020-03-02 10:33 | XMS REPORT | Summary of Care ---
:1965 Author Organization [facility] - [facility] Address [address] [place] [address] Care Team Providers Name Role Phone JOSEFINA Lucero Primary Care Provider Reason for Visit Reason Comments Follow-up (Routine) Status Reason Specialty Diagnoses / Procedures Referred By Jossue hintonerred To Contact Contact Closed Cardiology Diagnoses Nonobstructive atherosclerosis of coronary artery Ekta Lucero FNP Procedures CONSULT/REFERRAL CARDIOLOGY [address] [place] [address] Encounter Details Date Type Department Care Team Description 02/18/2020 Office Visit [facility] Eunice Chang M D Essential hypertension (Primary Dx); Cardiology- [address] Chest pain, unspecified type ; [address] [place] [address] DRIVE Pacemaker; [address], [address] Morbid obesity; [place], [place] Nonobstructive atherosclerosis of coronary artery; [address] Mixed hyperlipidemia; [phone] BRIDGET (obstructive sleep apnea); [phone] Chronic heart f ailure with preserved ejection [...] pain for years. He had LHC in [facility] in 2016 showing non obstructive CAD. Apparently had LHC In 2017 in [facility]--no PCI done. He has daily chest pain. It is central and left sided sharp pain, radiating to the left arm, more so when lying flat, non exertional, actually less when walking. Associated with mild SOB. NTG does not help. In 02/2020 he was admitted in [facility] for several significant sinus pauses on telemetry, [...] file Gets together: Not on file Attends zoroastrianism service: Not on file Active member of [...] of Onset Coronary Heart Disease Mother of [place] at age 61 Diabetes Maternal Grandmother Physical [...] 6 months Eunice Chang MD, FACC, DOROTHY Motor Vehicle Inspector, Division of Cardiology [facility] documented in this encounter Plan of Treatment Date Type Specialty Care Team Description 02/21/2020 Office Visit Family Medicine Perez Lugo MD [address] [place] [address] Dr Laboy [address] [place], [place] [address] 03/28/2020 Nurse Visit Cardiology Visit, Adc Nurse 04/25/2020 Office Visit Pulmonary Disease Mayela Funes, [address] [place] [address] 08/20/2020 Office Visit Cardiology Eunice Chang M D [address] [place] [address] [address] [place], [place] [address] Health Maintenance Due Date [...] Phone Address Typ e / Group Dates [employer] [place] [employer] [place] [id number] 2018-Pres [phone] [facility] C ent [address] [place] [address] documented as of this encounter
--- OUTSIDE RECORDS SUMMARY | 2020-03-02 10:33 | XMS REPORT | Summary of Care ---
:1965 Author Organization [facility] Address [address] [place] [address] Care Team Providers Name Role Phone JOSEFINA Lucero Primary Care Provider Reason for Referral (KERLINE) Status Reason Specialty Diagnoses / Referred By Referred To Procedures Contact Contact New Request Cardiology Diagnoses Sick sinus syndrome Ekta Lucero FNP Procedures CONSULT/REFERRAL CARDIOLOGY [address] [place] [address] Reason for Visit Reason Comments Follow-up Post hospitalization Encounter Details Date Type Department Care Team Description 02/07/2020 Office Visit [facility] Ekta Mejia FNP [address] [place] [address] Sick sinus syndrome (Primary Dx); [facility] Primary Borderline diabetes mellitus; Clinic Dyspnea on exertion; [address] Cigarette nicotine dependenc e without complication; [place], [place] Sleep-disordere d breathing [address] Allergies Active [...] presents with Follow-up Post hospitalization HPI Juan Migeul Langston is a 54 year old male being seen today for post hospitalization from late last week. Pt was admitted on via EMS to [facility] for chest pain and AMS. On arrival ABG wereelevated with pH 7.2 and hypercapnic 65. Pt placed on BiPap for the night. Repeat ABG 7.33/57. No Troponin elevation. During the night he had multiple sinus pauses up to 7 seconds. [facility] where Dr Sukhdev Elam placed AICD. [...] abuse Past Surgical History: Procedure Laterality Date [place] RIGHT HEART CATH O2 SATURATION & CARDIAC OUTPUT x 3 last done in 2017 at [facility] Social History Socioeconomic History Marital status: [...] file Gets together: Not on file Attends rastafarian service: Not on file Active member of [...] [place] at age 61 Diabetes Maternal Grandmother Review [...] 10.2 g; Refill: 11 Medication Provided through [employer] program Lilian Christianson LVN - 02/07/2020 1:30 [...] Office Visit Cardiology Eunice Chang M D [address] [place] [address] [address] [place], [place] [address] 02/21/2020 Office Visit Family Medicine Perez Lugo MD [address] [place] [address] Dr Lab[address] [place], [place] [address] 04/25/2020 Office Visit Pulmonary Disease Mayela Funes DO [address] [place] [phone] Health Maintenance Due Date Last Done [...] Effective Phone Address T ype Group Dates [facility] [id number] 2019-Prese [phone] PRIMARY CARE PRIMARY CARE nt [address] [place] [address] documented as of this encounter
--- OUTSIDE RECORDS SUMMARY | 2020-03-02 10:34 | XMS REPORT | Summary of Care ---
:1965 Author Organization [facility] - Health Address [address] [place] [address] Care Team Providers Name Role Phone Nic JOSEFINA Primary Care Provider Encounter Details Date Type Department Care Team Description 01/24/2020 Orders Only [facility] Doctor Unassigned, No 301 [facility] [place] [address] [address] [place] [address] Allergies Active Allergy Reactions Severity Noted Date Comments Azithromycin Swelling High 08/11/2018 Throat swells Metoprolol Other - See comments 07/11/2018 Lowers heart rate too low documented as of this encounter (statuses as of 02/26/2020) Medications Medication Sig Dispensed Refills Start Date [...] as of this encounter (statuses as of 02/26/2020) Active Problems Problem Noted Date BRIDGET (obstructive sleep apnea) 02/18/2020 Morbid obesity with body mass index of 40.0-49.9 07/17 Nonobstructive atherosclerosis of coronary artery 02/2018 Essential hypertension 12/07/2013 HLD (hyperlipidemia) 12/07/2013 Borderline diabetes mellitus 12/07/2013 Obesity (BMI 30-39.9) 12/07/2013 Tobacco abuse 12/07/2013 Atypical chest pain 11/20/2013 documented as of this encounter (statuses as of 02/26/2020) Immunizations Name Administration Dates Next Due Influenza [...] Treatment Date Type Specialty Care Team Description 03/28/2020 Nurse Visit Cardiology Visit, Adc Nurse 04/25/2020 Office Visit Pulmonary Disease Mayela Funes DO [address] [place] [phone] 08/20/2020 Office Visit Cardiology Eunice Chang M D [address] [facility] [address] [place], [place] [address] [phone] Health Maintenance Due Date Last Done Comments [...] Name Priority Date/Time Associated Diagnosis Comme nts MEDICATION CORRESPONDENCE Routine 01/24/2020 12:01 AM CDT documented in this encounter Results Not on filedocumented in this encounter Insurance Payer Benefit Plan Subscriber ID Effective Phone Address Typ e / Group Dates [employer] [place] [id number] 2018-08/03 [phone] [facility] H C I H C [address] [place] [address] ROSEANNA CONDON [id number] 2019-Prese [phone] PRIMARY CARE PRIMARY CARE nt [address] [place] [address] documented as of this encounter
--- OUTSIDE RECORDS SUMMARY | 2020-03-02 10:34 | XMS REPORT | Summary of Care ---
:1965 Author Organization [facility] - Health Address [address] [place] [address] Care Team Providers Name Role Phone Nic JOSEFINA Primary Care Provider Encounter Details Date Type Department Care Team Description 02/07/2020 Orders Only [facility] Doctor Unassigned, No 301 [facility] [place] [address] [address] [place] [address] Allergies Active Allergy Reactions Severity Noted Date [...] 04/25/2020 Office Visit Pulmonary Disease Mayela Funes, [facility] [place] [address] 08/20/2020 Office Visit Cardiology Eunice Chang M D [address] [address] [phone] Health Maintenance Due Date Last Done Comments [...] Name Priority Date/Time Associated Diagnosis Comme nts AGREEMENTS AUTHORIZATIONS Routine 02/07/2020 12:01 AM AND IRREVOCABLE CDT ASSIGNMENTS (FORM 2000) documented in this encounter Results Not on filedocumented in this encounter Insurance Payer Benefit Plan Subscriber ID Effective Phone Address Typ e / Group Dates [employer] [employer] [id number] 2018-08/03 [phone] [facility] C I H C /2020 [address] [place] [address] ROSEANNA CONDON [id number] 2019-Prese [phone] PRIMARY CARE PRIMARY CARE nt [address] [place] [address] documented as of this encounter
[2020-03-02 11:03] LABS: Absolute Lymphocytes (CBC) 1.6 K/uL (0.7-4.9); Hematocrit 43.1 % (39.6-49.0); Lymphocytes % 22.4 % (15.3-44.8); MPV 9.2 fL (7.6-11.3); RBC Red Blood Cell Count 5.12 M/uL (4.33-5.43)
[2020-03-02 11:06] LABS: Protime INR 0.99
[2020-03-02] MEDS ORDERED: NITROGLYCERIN 0.4 MG/TAB SL ONE (11:07)
[2020-03-02] MEDS ORDERED: ASPIRIN 81 MG CHEWABLE TABLET ONE (11:07)
[2020-03-02] MEDS ORDERED: FUROSEMIDE 40 MG/4 ML VIAL ONE ×2 (11:08→12:55)
[2020-03-02 11:30] LABS: ALT/SGPT 102 U/L (12-78); AST/SGOT 32 U/L (15-37); Albumin 3.2 g/dL (3.4-5.0); Alkaline Phosphatase 52 U/L (45-117); BUN Blood Urea Nitrogen 9 mg/dL (7-18); Bicarbonate 27 mmol/L (21-32); Bilirubin Direct < 0.1 mg/dL (0-0.2); Bilirubin Total 0.1 mg/dL (0.2-1.0); Glucose Level 215 mg/dL (74-106); NT PRO-BNP 27 pg/mL (<125); Potassium 3.9 mmol/L (3.5-5.1); Protein, Total 6.7 g/dL (6.4-8.2); Sodium Level 141 mmol/L (136-145); Troponin (Emerg Dept Use Only) < 0.02 ng/mL (0.0-0.045)
--- NOTE | 2020-03-02 12:00 | RAD REPORT ---
EXAM DESCRIPTION: RAD - Chest Single View - 03/02/2020 11:12 am CLINICAL HISTORY: CONGESTION, shortness of breath COMPARISON: February 02 portable study TECHNIQUE: AP portable chest image was obtained 03/02/2020 11:12 am . FINDINGS: No peripheral mass or consolidation. Central vasculature and lung markings are mildly prom inent. Better aeration of the left base noted. Left subclavian pacemaker has been placed since the study. Heart and vasculature are normal. No measurable pleural effusion and no pneumothorax. No acute bony abnormality seen. No acute aortic findings suspected. IMPRESSION: No peripheral mass consolidation. Pacemaker has been placed since prior imaging. Central vasculature and lung markings are prominent. Patient could monitored for minimal failure or v olume overload.
--- NOTE | 2020-03-02 12:43 | EDPHYS ---
Physician Documentation [facility] Name: Juan Miguel Langston Age: 54 yrs Sex: Male : 1965 Arrival Date: 03/02/2020 Time: 10:29 Bed 8 Private MD: ED Physician Jonathan Suarez HPI: 03/02 12:39 This 54 yrs old Male presents to ER via EMS with complaints of Breathing ma2 Difficulty. 12:39 The patient has shortness of breath at rest. Onset: The symptoms/episode began/occurred ma2 gradually, 1 day(s) ago. Associated signs and symptoms: Pertinent negatives: productive cough, dizziness, hemoptysis, nausea. Severity of symptoms: At their worst the symptoms were moderate in the emergency department the symptoms are unchanged. The patient has experienced similar episodes in the past. patient also has chest pain that happened today, he had a pacemaker placed last month. Historical: - Allergies: 10:36 Azithromycin; ll1 10:36 Beta-Blockers (Beta-Adrenergic Bloc; ll1 10:36 Metoprolol Tartrate; ll1 - PMHx: 10:36 Hypertension; Diabetes - NIDDM; Myocardial infarction; Sleep Apnea; Angina; COPD; High ll1 Cholesterol; - PSHx: 10:36 pacemaker; ll1 - Immunization history:: Flu vaccine is up to date. - Social history:: Smoking status: Patient reports the use of cigarette tobacco products, smokes one-half pack cigarettes per day, Patient/guardian denies using alcohol, street drugs. - Family history:: not pertinent. ROS: 12:39 Constitutional: Negative for fever, chills, and weight loss. ma2 12:39 All other systems are negative. Exam: 12:39 Constitutional: This is a well developed, well nourished patient who is awake, alert, ma2 and in no acute distress. Neck: Trachea midline, no thyromegaly or masses palpated, and no cervical lymphadenopathy. Supple, full range of motion without nuchal rigidity, or vertebral point tenderness. No Meningismus. Chest/axilla: Normal chest wall appearance and motion. Nontender with no deformity. No lesions are appreciated. Cardiovascular: Regular rate and rhythm with a normal S1 and S2. No gallops, murmurs, or rubs. Normal PMI, no JVD. No pulse deficits. Respiratory: Lungs have equal breath sounds bilaterally, clear to auscultation and percussion. No rales, rhonchi or wheezes noted. No increased work of breathing, no retractions or nasal flaring. Abdomen/GI: Soft, non-tender, with normal bowel sounds. No distension or tympany. No guarding or rebound. No evidence of tenderness throughout. Back: No spinal tenderness. No costovertebral tenderness. Full range of motion. Skin: Warm, dry with normal turgor. Normal color with no rashes, no lesions, and no evidence of cellulitis. MS/ Extremity: 1+ pitting edema equal bilat.. Pulses equal, no cyanosis. Neurovascular intact. Full, normal range of motion. Neuro: Awake and alert, GCS 15, oriented to person, place, time, and situation. Cranial nerves II-XII grossly intact. Motor strength 5/5 in all extremities. Sensory grossly intact. Cerebellar exam normal. Normal gait. Vital Signs: 10:33 BP 173 / 91; Pulse 100; Resp 20; Temp 98.8; Pulse Ox 98% on R/A; Pain 10/10; ll1 11:25 BP 154 / 77; Pulse 77; Resp 19; Pulse Ox 98% ; ll1 12:28 BP 146 / 99; Pulse 82; Resp 19; Pulse Ox 93% on R/A; ll1 14:27 BP 125 / 61; Pulse 86; Resp 19; Pulse Ox 99% on R/A; ll1 MDM: 10:32 Patient medically screened. ma2 12:39 Differential diagnosis: Anemia Bronchitis Sepsis. Data reviewed: vital signs, nurses ma2 notes. Counseling: I had a detailed discussion with the patient and/or guardian regarding: the historical points, exam findings, and any diagnostic results supporting the discharge/admit diagnosis, the presence of at least one elevated blood pressure reading (>120/80) during this emergency department visit, the need for further work-up and treatment in the hospital, need to be admitted for acs rule out given he had chest pain today . 03/02 10:42 Order name: Basic Metabolic Panel; Complete Time: 12: ma2 03/02 10:42 Order name: CBC with Diff; Complete Time: 12: tn2 03/02 10:42 Order name: Hepatic Function; Complete Time: 12: tn2 03/02 10:42 Order name: Magnesium; Complete Time: 12:06 ma2 03/02 10:42 Order name: NT PRO-BNP; Complete Time: 12:06 ma2 03/02 10:42 Order name: Protime (+inr); Complete Time: 12:06 ma2 03/02 10:42 Order name: Troponin (emerg Dept Use Only); Complete Time: 12:06 ma2 03/02 13:09 Order name: Urinalysis [facility] 03/02 13:09 Order name: CBC with Automated Diff [facility] 03/02 13:09 Order name: CBC with Automated Diff [facility] 03/02 13:09 Order name: CKMB Creatine Kinase MB [facility] 03/02 13:09 Order name: CKMB Creatine Kinase MB [facility] 03/02 13:09 Order name: CKMB Creatine Kinase MB [facility] 03/02 13:09 Order name: CKMB Creatine Kinase MB [facility] 03/02 10:42 Order name: XRAY Chest (1 view); Complete Time: 12:06 ma2 03/02 10:42 Order name: EKG; Complete Time: 10:43 ma2 03/02 13:09 Order name: CONS Physician Consult [facility] 03/02 13:09 Order name: Comprehensive Metabolic Panel [facility] 03/02 13:09 Order name: Comprehensive Metabolic Panel [facility] 03/02 13:09 Order name: Lipid Profile [facility] 03/02 13:09 Order name: Lipid Profile [facility] 03/02 13:09 Order name: Troponin I [facility] 03/02 13:09 Order name: Troponin I [facility] 03/02 13:09 Order name: Troponin I [facility] 03/02 13:09 Order name: Troponin I [facility] 03/02 13:17 Order name: Chest Angio [facility] 03/02 10:42 Order name: Cardiac monitoring; Complete Time: 10:58 ma2 03/02 10:42 Order name: EKG - Nurse/Tech; Complete Time: 10:58 ma2 03/02 10:42 Order name: IV Saline Lock; Complete Time: 10:57 ma2 03/02 10:42 Order name: Labs collected and sent; Complete Time: 10:58 ma2 03/02 10:42 Order name: O2 Per Protocol; Complete Time: 10:58 ma2 03/02 10:42 Order name: O2 Sat Monitoring; Complete Time: 10:58 ma2 03/02 13:09 Order name: Heart Healthy EDMS Administered Medications: 11:03 Drug: Nitroglycerin 0.4 mg Route: Sublingual; hb 14:51 Follow up: Response: No adverse reaction; RASS: Alert and Calm (0) 1 11:03 Drug: Aspirin 325 mg Route: PO; hb 14:51 Follow up: Response: No adverse reaction; RASS: Alert and Calm (0) ll1 11:03 Drug: Lasix 40 mg Route: IVP; Site: right antecubital; hb 14:52 Follow up: Response: No adverse reaction; RASS: Alert and Calm (0) ll1 12:48 Drug: Lasix 40 mg Route: IVP; Site: right antecubital; ll1 14:52 Follow up: Response: No adverse reaction; RASS: Alert and Calm (0) 1 Disposition: 03/02/20 12:43 Hospitalization ordered by Jim Bustos for Observation. Preliminary diagnosis is Other chest pain. - Bed requested for Telemetry/MedSurg (observation). - Status is Observation. ll1 - Condition is Stable. - Problem is new. - Symptoms are unchanged. Signatures: Dispatcher [employer] EDOK Kym Jim RN RN Jonathan Suarez MD MD tn2 Lilian Valdez Lynsay, RN RN ll1 Corrections: (The following items were deleted from the chart) 13:45 12:43 Hospitalization Ordered by Jim Bustos MD for Observation. Preliminary eb diagnosis is Other chest pain. Bed requested for Telemetry/MedSurg (observation). Status is Observation. Condition is Stable. Problem is new. Symptoms are unchanged. [facility] 14:59 13:45 03/02/2020 12:43 Hospitalization Ordered by Jim Bustos MD for Observation. ll1 Preliminary diagnosis is Other chest pain. Bed requested for Telemetry/MedSurg (observation). Status is Observation. Condition is Stable. Problem is new. Symptoms are unchanged. eb
--- NOTE | 2020-03-02 12:43 | ER ---
Nurse's Notes [facility] Name: Juan Miguel Langston Age: 54 yrs Sex: Male : 1965 Arrival Date: 03/02/2020 Time: 10:29 Bed 8 Private MD: Diagnosis: Other chest pain Presentation: 03/02 10:33 Chief complaint: Patient states: SOB int for 2 weeks, worse 1 hour HOEING ROW BOSS. Int cough. Out ll1 of 4 meds for 1 week due to cost-BP and blood thinner meds. Int. sharp CP. EMS states: 94% RA, HR 102, fingerstick 254, BP 190/96, temp 98.1. Coronavirus screen: Client denies travel out of the [place] in the last 14 days. cough unrelated to allergies, difficulty breathing, Client presents with at least one sign or symptom that may indicate coronavirus-19. Standard/surgical mask placed on the client. The client reports previous COVID testing was negative. Ebola Screen: Patient denies travel to an Ebola-affected area in the 21 days before illness onset. Initial Sepsis Screen: Does the patient meet any 2 criteria? No. Patient's initial sepsis screen is negative. Risk Assessment: Do you want to hurt yourself or someone else? Patient reports no desire to harm self or others. Onset of symptoms was February 16, 2020. 10:33 Method Of Arrival: EMS: [facility] ll1 10:33 Acuity: DESTINY 3 ll1 11:05 Initial Sepsis Screen: Does the patient have a suspected source of infection? No. hb Patient's initial sepsis screen is negative. Triage Assessment: 11:05 Respiratory: hb Historical: - Allergies: 10:36 Azithromycin; ll1 10:36 Beta-Blockers (Beta-Adrenergic Bloc; ll1 10:36 Metoprolol Tartrate; ll1 - PMHx: 10:36 Hypertension; Diabetes - NIDDM; Myocardial infarction; Sleep Apnea; Angina; COPD; High ll1 Cholesterol; - PSHx: 10:36 pacemaker; ll1 - Immunization history:: Flu vaccine is up to date. - Social history:: Smoking status: Patient reports the use of cigarette tobacco products, smokes one-half pack cigarettes per day, Patient/guardian denies using alcohol, street drugs. - Family history:: not pertinent. Screenin:55 Abuse screen: Denies threats or abuse. Denies injuries from another. Nutritional hb screening: No deficits noted. Tuberculosis screening: No symptoms or risk factors identified. Fall Risk None identified. Assessment: 10:55 General: Appears in no apparent distress. Behavior is calm, cooperative. Pain: Pain hb currently is 9 out of 10 on a pain scale. Neuro: Level of Consciousness is awake, alert, obeys commands, Oriented to person, place, time, situation. Cardiovascular: Reports chest pain, Capillary refill < 3 seconds Patient's skin is warm and dry. Rhythm is regular. Respiratory: Reports shortness of breath at rest Airway is patent Respiratory effort is even, unlabored, Respiratory pattern is regular, symmetrical. GI: No signs and/or symptoms were reported involving the gastrointestinal system. : No signs and/or symptoms were reported regarding the genitourinary system. EENT: No signs and/or symptoms were reported regarding the EENT system. Derm: Skin is pink, warm \T\ dry. Musculoskeletal: No signs and/or symptoms reported regarding the musculoskeletal system. 12:00 Reassessment: No changes from previously documented assessment. Patient and/or family ll1 updated on plan of care and expected duration. Pain level reassessed. Patient is alert, oriented x 3, equal unlabored respirations, skin warm/dry/pink. 13:00 Reassessment: Patient appears in no apparent distress at this time. No changes from hb previously documented assessment. Patient and/or family updated on plan of care and expected duration. Pain level reassessed. 14:00 Reassessment: No changes from previously documented assessment. Patient and/or family ll1 updated on plan of care and expected duration. Pain level reassessed. Patient is alert, oriented x 3, equal unlabored respirations, skin warm/dry/pink. 14:50 Reassessment: No changes from previously documented assessment. Patient and/or family ll1 updated on plan of care and expected duration. Pain level reassessed. Patient is alert, oriented x 3, equal unlabored respirations, skin warm/dry/pink. Vital Signs: 10:33 BP 173 / 91; Pulse 100; Resp 20; Temp 98.8; Pulse Ox 98% on R/A; Pain 10/10; ll1 11:25 BP 154 / 77; Pulse 77; Resp 19; Pulse Ox 98% ; ll1 12:28 BP 146 / 99; Pulse 82; Resp 19; Pulse Ox 93% on R/A; ll1 14:27 BP 125 / 61; Pulse 86; Resp 19; Pulse Ox 99% on R/A; ll1 ED Course: 10:29 Patient arrived in ED. ds1 10:32 Jonathan Suarez MD is Attending Physician. ma2 10:33 Sanjuana Beltre, RN is Primary Nurse. ll1 10:35 Triage completed. ll1 10:36 Arm band placed on Patient placed in an exam room, on a stretcher. ll1 10:54 Initial lab(s) drawn, by me, sent to lab. Inserted saline lock: 20 gauge in right hand, dh3 using aseptic technique. Blood collected. 10:55 Patient has correct armband on for positive identification. Bed in low position. Call hb light in reach. Side rails up X 1. 10:59 EKG done, by ED staff, reviewed by Jonathan Suarez MD. dh3 11:12 XRAY Chest (1 view) In Process Unspecified. EDMS 12:42 Jim Bustos MD is Hospitalizing Provider. ma2 13:41 Inserted saline lock: 20 gauge in right antecubital area, using aseptic technique. hb 14:50 No provider procedures requiring assistance completed. Patient admitted, IV remains in ll1 place. Administered Medications: 11:03 Drug: Nitroglycerin 0.4 mg Route: Sublingual; hb 14:51 Follow up: Response: No adverse reaction; RASS: Alert and Calm (0) ll1 11:03 Drug: Aspirin 325 mg Route: PO; hb 14:51 Follow up: Response: No adverse reaction; RASS: Alert and Calm (0) ll1 11:03 Drug: Lasix 40 mg Route: IVP; Site: right antecubital; hb 14:52 Follow up: Response: No adverse reaction; RASS: Alert and Calm (0) ll1 12:48 Drug: Lasix 40 mg Route: IVP; Site: right antecubital; ll1 14:52 Follow up: Response: No adverse reaction; RASS: Alert and Calm (0) ll1 Output: 12:00 Urine: 100ml (Voided); Total: 100ml. ll1 14:45 Urine: 200ml; Total: 300ml. ll1 Outcome: 12:43 Decision to Hospitalize by Provider. ma2 14:49 Admitted to Med/surg accompanied by tech, room 207, with chart, Report called to akhil Naylor RN on 08 17: Condition: stable 14:49 Instructed on the need for admit. 14:59 Patient left the ED. akhil Signatures: Dispatcher [employer] EDNM LopezShereen meneses ds1 Kym Jim RN RN Maria Del Carmen Castillo formerly [facility] Jonathan Suarez MD MD ma2 Sanjuana Beltre RN RN ken
[2020-03-02] MEDS ORDERED: ONDANSETRON 4 MG/2 ML VIAL IV PRN (13:05)
[2020-03-02] MEDS ORDERED: ACETAMINOPHEN 500 MG TAB PO PRN (13:05)
[2020-03-02] MEDS ORDERED: D50W 25 GM/50 ML SYRINGE/VIAL IV PRN (13:17)
[2020-03-02] MEDS ORDERED: GLUCAGON 1 MG/VIAL IM PRN (13:17)
--- NOTE | 2020-03-02 13:18 | P.HP ---
Certification for Inpatient Patient admitted to: Observation With expected LOS: <2 Midnights Practitioner: I am a practitioner with admitting privileges, knowledge of patient current condition, hospital course, and medical plan of care. Services: Services provided to patient in accordance with Admission requirements found in Title 42 Section 412.3 of the Code of Federal Regulations Patient History Date of Service: 03/02/20 Reason for admission: Chest pain and shortness of breath History of Present Illness: 54-year-old male with past medical history of Hypertension, dyslipidemia, and coronary artery disease, COPD, and smoker, GERD , who had multiple prolonged pauses and I had a pacemaker placed last month came to ER with shortness of breath and chest pain. He states that the shortness of breath has been going on for the last 1 month ever since the placement of pacemaker was done. Started having chest pain since yesterday. pain is retrosternal nonradiating not associated with any diaphoresis Denies any fever or chills. Patient was assessed in the ER and was found to have chest pain and shortness of breath and was admitted for further management to rule out ACS Allergies azithromycin Adverse Reaction (Verified 02/03/20 22:25) Hives Beta-Blockers (Beta-Adrenergic Bloc Adverse Reaction (Verified 02/03/20 22:25) Anaphylaxis metoprolol Adverse Reaction (Verified 02/03/20 22:25) Anaphylaxis Home medications list reviewed: Yes Home Medications: Albuterol Inhaler [Ventolin Inhaler] 2 puff IH TID PRN 02/03/20 Budesonide/Formoterol Fumarate [Symbicort 160-4.5 Mcg Inhaler] 2 puff IH BID 02/03/20 Isosorbide Dinitrate [Isordil] 30 mg PO DAILY 02/03/20 Lisinopril [Zestril] 20 mg PO DAILY 02/03/20 Metformin ER [Glucophage ER] 500 mg PO DAILY 02/03/20 Nitroglycerin [Nitrostat*] 1 tab PO DAILY PRN 02/03/20 - Past Medical/Surgical History Diabetic: Yes Past Medical History: Reviewed- Non-Contributory -: Angina -: HTN -: Hyperlipidemia -: Tobacco abuse -: CAD -: COPD -: GERD -: Diabetes- NIDDM -: PR -: Sleep Apnea Past Surgical History: Reviewed- Non-Contributory -: cardic cath -: Cardiac stress tests October 2017 showed no stress-induced ischemia Psychosocial/ Personal History: Patient is single. Patient is homeless. - Family History MOM -: Heart disease, Other (see notes) Notes: MASSIVE PR 61YR and arthritis DAD -: Heart disease, Other (see notes) Notes: POOR CIRCULATION TO LEGS PER PT - Social History Smoking Status: Current some day smoker Alcohol use: No CD- Drugs: No Caffeine use: Yes Review of Systems 10-point ROS is otherwise unremarkable Physical Examination - Vital Signs Temperature: 98.2 F Blood Pressure: 138/88 Pulse: 82 Respirations: 16 - Physical Exam General: Alert, Mild distress, Obese HEENT: Atraumatic, Normocephalic Neck: Supple Respiratory: Diminished, Crackles/rales Cardiovascular: Regular rate/rhythm, Normal S1 S2 Capillary refill: <2 Seconds Gastrointestinal: Soft and benign, W/out hepatosplenomegaly Musculoskeletal: No clubbing, No swelling Integumentary: No rashes, No breakdown Neurological: Normal speech, Normal strength at 5/5 x4 extr Lymphatics: No axilla or inguinal lymphadenopathy - Studies Laboratory Data (last 24 hrs) 03/02/20 10:54: PT 11.7, INR 0.99 03/02/20 10:54: WBC 7.1, Hgb 14.0, Hct 43.1, Plt Count 230 03/02/20 10:54: Sodium 141, Potassium 3.9, BUN 9, Creatinine 0.86, Glucose 215 H, Magnesium 2.0, Total Bilirubin 0.1 L, AST 32, ALT 102 H, Alkaline Phosphatase 52 Assessment and Plan - Plan Chest Pain to r/o ACS Shortness of Breath Acute hypoxc respiratory Insuffiency CAD HTN COPD HLD DM Possible sinus node dysfunction s/p Pacemeker Acute CHF possibly diastolic Obesity Smoker Plan Monitor under telemetry Trend cardiac enzymes Cardiology consult Echocardiogram Continue home medication and titrate as needed Insulin Sliding scale Will get a CT chest Bronchodialators prn Pulmonology consult Oxygen supplementation GI/DVT prophylaxis Smoking cessation - Advance Directives Does patient have a Living Will: No Does patient have a Durable POA for Healthcare: No Time Spent Managing Pts Care (In Minutes): 48
--- NOTE | 2020-03-02 14:38 | RAD REPORT ---
EXAM DESCRIPTION: CT - Chest Angio - 03/02/2020 2:27 pm CLINICAL HISTORY: Chest pain COMPARISON: 2017 TECHNIQUE: Dynamically enhanced axial 3 mm thick images of the chest were obtained during administra tion of <100> mL Isovue 370 IV contrast. Coronal and oblique reconstruction images were generated and reviewed. Exam utilizes a protocol for optimal evaluation of pulmonary arterial tree. Maximum intensity projections 3D imaging was utilized All CT scans are performed using dose optimization technique as appropriate and may include automated exposure control or mA/KV adjustment according to patient size. FINDINGS: Thrombus is present within the right lower lobe pulmonary artery measuring 3.5 centimeters length. Small amount of right upper lobe pulmonary artery thrombus. No thrombus is seen within the main, right main, left main and left pulmonary arteries A thoracic aortic aneurysm is not noted. A pleural effusion is not seen. A pericardial effusion is not seen. A lung consolidation is not present. IMPRESSION: Right pulmonary emboli
[2020-03-02 15:20] VITALS: BMI 44.0
[2020-03-02] MEDS ORDERED: ENOXAPARIN 40 MG/0.4 ML SQ SCH (16:00)
[2020-03-02] MEDS ORDERED: IPRATROPIUM BROM 0.5MG/2.5ML NEB SCH (16:00)
[2020-03-02] MEDS ORDERED: ALBUTEROL 2.5 MG/3 ML NEB SOL NEB SCH (16:00)
[2020-03-02] MEDS: INSULIN -REGULAR HUMAN 50 UNIT/0.5 ML ML SQ SCH ×2 (16:41→21:47)
--- NOTE | 2020-03-02 16:48 | P.CNS ---
Date of Consult: 03/02/20 Reason for Consult: Pulmonary embolus Chief Complaint: Chest pain and shortness of breath History of Present Illness: Patient is 54 years of age recently had a pacemaker placed about 2 weeks ago developed sudden onset of chest pain shortness of breath and was admitted with pulmonary emboli he has risk factors for sleep apnea and has not been able to do a sleep study having some chest pain patient has also his history of COPD active smoker Allergies azithromycin Adverse Reaction (Verified 02/03/20 22:25) Hives Beta-Blockers (Beta-Adrenergic Bloc Adverse Reaction (Verified 02/03/20 22:25) Anaphylaxis metoprolol Adverse Reaction (Verified 02/03/20 22:25) Anaphylaxis Home Medications: Albuterol Inhaler [Ventolin Inhaler] 2 puff IH TID PRN 02/03/20 Budesonide/Formoterol Fumarate [Symbicort 160-4.5 Mcg Inhaler] 2 puff IH BID 02/03/20 Isosorbide Dinitrate [Isordil] 30 mg PO DAILY 02/03/20 Lisinopril [Zestril] 20 mg PO DAILY 02/03/20 Metformin ER [Glucophage ER] 500 mg PO DAILY 02/03/20 Nitroglycerin [Nitrostat*] 1 tab PO DAILY PRN 02/03/20 Rivaroxaban [Xarelto] 15 mg PO BID #60 tablet 03/02/20 - Past Medical/Surgical History Diabetic: Yes -: Angina -: HTN -: Hyperlipidemia -: Tobacco abuse -: CAD -: COPD -: GERD -: Diabetes- NIDDM -: ME -: Sleep Apnea -: cardic cath -: Cardiac stress tests October 2017 showed no stress-induced ischemia Psychosocial/ Personal History: Patient is single. Patient is homeless. - Family History MOM Medical History: Heart disease, Other (see notes) Notes: MASSIVE ME 61YR and arthritis DAD Medical History: Heart disease, Other (see notes) Notes: POOR CIRCULATION TO LEGS PER PT - Social History Smoking Status: Current every day smoker Alcohol use: No CD- Drugs: No Caffeine use: Yes Place of Residence: Homeless Review of Systems General: Weakness Respiratory: Cough, Shortness of Breath Cardiovascular: Chest Pain Physical Examination Temp Pulse Resp BP Pulse Ox 98.2 F 82 16 138/88 03/02/20 16:27 03/02/20 16:27 03/02/20 16:27 03/02/20 16:27 General: Alert, Other (Unkempt) Respiratory: Clear to auscultation bilaterally, Diminished, Expiratory wheezes Cardiovascular: No edema, Regular rate/rhythm Gastrointestinal: Normal bowel sounds, Soft and benign Musculoskeletal: No clubbing, No swelling Laboratory Data (last 24 hrs) 03/02/20 10:54: PT 11.7, INR 0.99 03/02/20 10:54: WBC 7.1, Hgb 14.0, Hct 43.1, Plt Count 230 03/02/20 10:54: Sodium 141, Potassium 3.9, BUN 9, Creatinine 0.86, Glucose 215 H, Magnesium 2.0, Total Bilirubin 0.1 L, AST 32, ALT 102 H, Alkaline Phosphatase 52 - Problems (1) Pulmonary emboli Current Visit: Yes Status: Acute Plan: Patient is 54 years of age admitted with chest pain shortness of breath he has pulmonary embolus in the right lung patient is hemodynamically stable oxygenation satisfactory slip box changer to p.o. Xarelto possible discharge tomorrow will need an outpatient sleep study recently had a pacemaker placed continues to smoke cardiac catheterization was also done last year with no intervention consider adding a low-dose spironolactone was lisinopril have underlying diastolic dysfunction Qualifiers: Acute cor pulmonale presence: unspecified (2) COPD exacerbation Onset Date: 08/08/18 Current Visit: No Status: Acute Plan: Patient has a history of COPD continues to smoke at steroids bronchodilators (3) Sleep apnea Current Visit: Yes Status: Acute Plan: Patient is at risk for sleep apnea and need an outpatient sleep study
[2020-03-02] MEDS ORDERED: IPRATROPIUM BROM 0.5MG/2.5ML NEB PRN (16:52)
[2020-03-02] MEDS ORDERED: ALBUTEROL 2.5 MG/3 ML NEB SOL NEB PRN (16:52)
[2020-03-02] MEDS ORDERED: FUROSEMIDE 40 MG/4 ML VIAL IV SCH (17:00)
[2020-03-02] MEDS: Enoxaparin 120 MG/0.8 ML SYR SQ SCH (18:03)
[2020-03-02] MEDS: ARFORMOTEROL TARTRATE 15 MCG/2 ML VIAL.NEB NEB SCH (20:20)
[2020-03-02 20:43] LABS: CKMB Creatine Kinase MB 2.7 ng/mL (0.3-3.6); Troponin I < 0.02 ng/mL (0.0-0.045)
[2020-03-02] MEDS ORDERED: HOME MED 1 EA UNK (Budesonide/Formoterol Fumarate [Symbicort 160-4.5 Mcg Inhaler] 2 PUFF) IH SCH (21:00)
[2020-03-02] MEDS: SPIRONOLACTONE 25 MG TABLET PO SCH (21:46)
[2020-03-02] MEDS: predniSONE 20 MG TAB PO SCH (21:46)
[2020-03-03 04:17] LABS: Absolute Lymphocytes (CBC) 1.3 K/uL (0.7-4.9); Basophils % 1.1 % (0-1.3); Hematocrit 46.9 % (39.6-49.0); Lymphocytes % 13.1 % (15.3-44.8); MPV 9.7 fL (7.6-11.3); RBC Red Blood Cell Count 5.46 M/uL (4.33-5.43)
[2020-03-03 05:09] LABS: ALT/SGPT 104 U/L (12-78); AST/SGOT 35 U/L (15-37); Albumin 3.4 g/dL (3.4-5.0); Alkaline Phosphatase 58 U/L (45-117); BUN Blood Urea Nitrogen 11 mg/dL (7-18); Bicarbonate 27 mmol/L (21-32); Bilirubin Total 0.2 mg/dL (0.2-1.0); CKMB Creatine Kinase MB 3.4 ng/mL (0.3-3.6); Glucose Level 166 mg/dL (74-106); HDL Cholesterol 34 mg/dL (40-60); LDL Cholesterol, Calculated 62 (<130); Potassium 4.7 mmol/L (3.5-5.1); Protein, Total 7.3 g/dL (6.4-8.2); Sodium Level 140 mmol/L (136-145); Troponin I < 0.02 ng/mL (0.0-0.045)
[2020-03-03] MEDS: Enoxaparin 120 MG/0.8 ML SYR SQ SCH (05:22)
[2020-03-03 06:01] VITALS: O2SAT 92
[2020-03-03] MEDS: ARFORMOTEROL TARTRATE 15 MCG/2 ML VIAL.NEB NEB SCH (07:52)
[2020-03-03] MEDS: INSULIN -REGULAR HUMAN 50 UNIT/0.5 ML ML SQ SCH ×2 (08:05→11:17)
[2020-03-03] MEDS: SPIRONOLACTONE 25 MG TABLET PO SCH (08:06)
[2020-03-03] MEDS: predniSONE 20 MG TAB PO SCH (08:06)
[2020-03-03] MEDS ORDERED: lisinopriL 20 MG TAB PO SCH (09:00)
[2020-03-03] MEDS ORDERED: ISOSORBIDE DINITRATE 30 MG PO SCH (09:00)
[2020-03-03 12:19] LABS: CKMB Creatine Kinase MB 2.8 ng/mL (0.3-3.6); Troponin I < 0.02 ng/mL (0.0-0.045)
[2020-03-03 14:29] VITALS: BP 109/52; TEMP 97.1
--- NOTE | 2020-03-03 17:00 | P.DS ---
Admission Date: 03/02/20 Discharge Date: 03/03/20 Disposition: ROUTINE DISCHARGE Discharge Condition: GOOD Reason for Admission: Chest pain and shortness of breath Consultations: Pulm - Dr. Burgess Procedures: CT - Chest Angio - 03/02/2020 2:27 pm IMPRESSION: Right pulmonary emboli Problem List Chest Pain to r/o ACS Shortness of Breath Acute hypoxc respiratory Insuffiency CAD HTN COPD HLD DM Possible sinus node dysfunction s/p Pacemeker Acute CHF possibly diastolic Obesity Smoker Brief History of Present Illness: 54-year-old male with past medical history of Hypertension, dyslipidemia, and coronary artery disease, COPD, and smoker, GERD , who had multiple prolonged pauses and I had a pacemaker placed last month came to ER with shortness of breath and chest pain. He states that the shortness of breath has been going on for the last 1 month ever since the placement of pacemaker was done. Started having chest pain since yesterday. pain is retrosternal nonradiating not associated with any diaphoresis Denies any fever or chills. Patient was assessed in the ER and was found to have chest pain and shortness of breath and was admitted for further management to rule out ACS Hospital Course: After further evaluation, it was discovered that patient had right-sided pulmonary emboli. He was started on Lovenox anticoagulation and then transitioned to Eliquis. On day of discharge, he had resolution of his chest pain, no SOB, breathing comfortably on room air, and was discharged home. He was instructed to f/u with PCP and Dr. Burgess. He was given a coupon for starter pack of Eliquis. Vital Signs/Physical Exam: Temp Pulse Resp BP Pulse Ox 97.1 F 95 H 18 109/52 L 95 03/03/20 12:00 03/03/20 12:00 03/03/20 12:00 03/03/20 12:00 03/03/20 12:00 General: Alert, In no apparent distress HEENT: Atraumatic, PERRLA, EOMI Neck: Supple, JVD not distended Respiratory: Clear to auscultation bilaterally, Diminished (on right base) Cardiovascular: Regular rate/rhythm, Normal S1 S2 Gastrointestinal: Normal bowel sounds, No tenderness Musculoskeletal: No tenderness Integumentary: No rashes, No tenderness/swelling Neurological: Normal speech, Normal affect Laboratory Data at Discharge: WBC 10.0 K/uL (4.3-10.9) D 03/03/20 03:51 Hgb 14.7 g/dL (13.6-17.9) 03/03/20 03:51 Hct 46.9 % (39.6-49.0) 03/03/20 03:51 Plt Count 258 K/uL (152-406) 03/03/20 03:51 PT 11.7 SECONDS (9.5-12.5) 03/02/20 10:54 INR 0.99 03/02/20 10:54 Sodium 140 mmol/L (136-145) 03/03/20 03:51 Potassium 4.7 mmol/L (3.5-5.1) 03/03/20 03:51 BUN 11 mg/dL (7-18) 03/03/20 03:51 Creatinine 0.98 mg/dL (0.55-1.3) 03/03/20 03:51 Glucose 166 mg/dL (74-106) H 03/03/20 03:51 Magnesium 2.0 mg/dL (1.8-2.4) 03/02/20 10:54 Total Bilirubin 0.2 mg/dL (0.2-1.0) 03/03/20 03:51 AST 35 U/L (15-37) 03/03/20 03:51 ALT 104 U/L (12-78) H 03/03/20 03:51 Alkaline Phosphatase 58 U/L (45-117) 03/03/20 03:51 Troponin I < 0.02 ng/mL (0.0-0.045) 03/03/20 11:53 Triglycerides 360 mg/dL (<150) H 03/03/20 03:51 Cholesterol 168 mg/dL (<200) 03/03/20 03:51 HDL Cholesterol 34 mg/dL (40-60) L 03/03/20 03:51 Cholesterol/HDL Ratio 4.94 03/03/20 03:51 Home Medications: Albuterol Inhaler [Ventolin Inhaler*] 2 puff IH TID PRN 02/03/20 Budesonide/Formoterol Fumarate [Symbicort 160-4.5 Mcg Inhaler] 2 puff IH BID 02/03/20 Isosorbide Dinitrate [Isordil] 30 mg PO DAILY 02/03/20 Lisinopril [Zestril] 20 mg PO DAILY 02/03/20 Metformin ER [Glucophage ER*] 500 mg PO DAILY 02/03/20 Nitroglycerin [Nitrostat*] 1 tab PO DAILY PRN 02/03/20 Apixaban [Eliquis] 5 mg PO DIRECTED 30 Days #76 tablet 03/03/20 predniSONE [Prednisone*] 20 mg PO BID 4 Days #8 tab 03/03/20 New Medications: Apixaban [Eliquis] 5 mg PO DIRECTED 30 Days #76 tablet predniSONE [Prednisone*] 20 mg PO BID 4 Days #8 tab Patient Discharge Instructions: follow up with PCP within 1 week. follow up with Dr. Burgess (Pulmonology) within 1-2 weeks Diet: AHA Activity: Ad yasmine Followup: Will Burgess MD [ACTIVE - CAN ADMIT] - (Call to make an appointment. ) Time spent managing pt's care (in minutes): 45
[2020-03-03] MEDS ORDERED: APIXABAN 5 MG TABLET PO SCH (21:00)
--- NOTE | 2020-03-04 07:39 | CON ---
Date of Consultation: 03/02/2020 Reason For Consultation: Chest pain. History Of Present Illness: Mr. Langston is a 54-year-old white male. Recent heart catheterization in April 2019 showed mild CAD. He has a history of pacemaker placement, COPD, diabetes, and hypertension. He came in with left- sided sharp stabbing chest pain that radiated to the left back. No nausea, vomiting, diaphoresis, PND, orthopnea, pedal edema, palpitations, or syncope. Denied fever or chills. He is already ruled out for an VA. Past Medical History: As stated above. Allergies: AND BETA-ALY. Review of Systems: Negative. Social History: Positive for tobacco. Medications: At home include Isordil, inhalers, Zestril, metformin, and Xarelto. Physical Examination: General: He weighed 273 pounds. He was in sinus rhythm. HEENT: Negative. Neck: Supple with no bruit. Chest: Clear. Cardiac: Revealed a regular rhythm and rate. No murmurs, gallops, or rubs. Abdomen: Benign. Extremities: Revealed no clubbing, cyanosis, or edema. Diagnostic Data: All unremarkable. Impression And Plan: 1. Atypical chest pain in a patient with mild coronary artery disease by recent catheterization in April 2019. He is allergic to beta-blockers. I recommend that we increase his Isordil. I do not need to do another catheterization on him. Another option will be to add a calcium channel aly such as Cardizem or Norvasc. 2. Pacemaker history with history of atrial fibrillation. He needs to resume his home medications including the Xarelto. He is in sinus rhythm now. 3. His other problems include chronic obstructive pulmonary disease, diabetes, and hypertension, all of those are well controlled. 4. Mr. Langston has issues with obesity and sleep apnea. He can go home whenever it is okay with Dr. Bustos. ROSSY/SARAH BETH Voice ID: [id number] Report ID: [id number] LILLIAN
== END 2020-03-03 16:25 | disposition home or self-care (01) | DRG 175 ==
LOC: ER 10:28 → ERHOLD 13:06 → 2ND 14:50 → OBSVTOIN 03-03 07:21
PROVIDERS: ADMIT Family Medicine; ATTEND Hospitalist
DX: I26.09 Other pulmonary embolism with acute cor pulmonale (principal); I50.31 Acute diastolic (congestive) heart failure; Z68.41 Body mass index [BMI] 40.0-44.9, adult; J44.1 Chronic obstructive pulmonary disease with (acute) exacerbation; I11.0 Hypertensive heart disease with heart failure; E78.5 Hyperlipidemia, unspecified; I25.10 Atherosclerotic heart disease of native coronary artery without angina pectoris; E11.9 Type 2 diabetes mellitus without complications; I25.2 Old myocardial infarction; E66.9 Obesity, unspecified; R06.89 Other abnormalities of breathing; R09.02 Hypoxemia; F17.210 Nicotine dependence, cigarettes, uncomplicated; G47.30 Sleep apnea, unspecified; I49.5 Sick sinus syndrome; I48.91 Unspecified atrial fibrillation; K21.9 Gastro-esophageal reflux disease without esophagitis; Z59.0 Homelessness; Z79.01 Long term (current) use of anticoagulants; Z88.1 Allergy status to other antibiotic agents; Z88.8 Allergy status to other drugs, medicaments and biological substances; Z79.84 Long term (current) use of oral hypoglycemic drugs; Z95.0 Presence of cardiac pacemaker; Z79.51 Long term (current) use of inhaled steroids; Z79.899 Other long term (current) drug therapy; Z20.828 Contact with and (suspected) exposure to other viral communicable diseases
CPT/HCPCS: 36415; 71045; 71275; 80048; 80053; 80061; 80076; 82553; 82947; 83735; 83880; 84484; 85025; 85610; 93005; 94760; 96374; 99285; G0378; J1650; J1940; J7512; J7605; Q9967; U0002

== ENCOUNTER 2020-03-07 04:30 | Inpatient (IN) | payer OTHER, SELFPAY ==
--- OUTSIDE RECORDS SUMMARY | 2020-03-07 04:33 | XMS REPORT | Clinical Summary ---
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 Shelf Model / Expiration Serial / Date Lot Lead Pacemkr Cecily [place] [id number] - [id number] PACEMAKER/I [employer]:CARD [id number] 09/27/2021 [id number] / Implanted: Qty: 1 on 02/05/2020 by Prem Elam MD CD CHAMBER RHY:DISEASE MGT [id number] / DEVICE Lead Pacemkr Capssamuel Novus [id number] - [id number] PACEMAKER/I MEDTRONIC:CARD [id number] 08/28/2021 [id number] / Implanted: Qty: 1 on 02/05/2020 by Prem Elam MD CD CHAMBER RHY:DISEASE MGT [id number] / DEVICE Pacemkr Brandee Xtdr Mri Ipg [id number] - [id number] PACEMAKER/I [employer]TRONIC:CARD [id number] 05/31/2021 [id number] / Implanted: Qty: 1 on 02/05/2020 by Prem Elam MD CD CHAMBER RHY:PACING SYS [id number] / DEVICE Procedures Procedure Name Priority Date/Time [...] 380 ms QTC Calculation(Bazett) 392 ms P Camden 51 degrees R Camden 57 degrees T Camden -21 degrees Normal sinus rhythm Incomplete left [...] i n the results section . after 03/07/2019 Results ARRYTHMIA IMPLANT REPORT - SCAN (02/20/2020 [...] W/Doppler(CW/PW/Color) (02/06/2020 10:08 AM CDT) Ejection Fraction [facility] ECHO HEAR TLAB [facility] Specimen Narrative Performed At Transthoracic Echocardiography Report (T TE) [facility] ECHO HEARTLAB [facility] Demographics Patient Name JUAN MIGUEL VALLE Date of Study 02/06/2020 RU [id number] GenderMale Visit Number [id number] Unknown [id number] Room Number 636 Number Date 1965Referring Fredrick Forrest Physician Age54 year(s)Computer Operations Supervisor Rubens Jurado, ROSSY, RDCS,RVT,RDMS AnalystLynne Jennifer, Abram [...] Study 02/06/2020 RU Gender Male Visit Number [id number] Race Unknown Room Num [facility] 636 Number Date of 1965 Justin Mockcherrifantasma Physicia n Age 54 year(s) Sonograp her Rubens Jurado, NB, RDCS,RVT,RDMS Research Development Manager Anthony Lezama MD RDCS Physicia n Procedure [...] TR Gradient: 23.87 mmHg Performing Organization Address [facility] Phone Number [facility] ECHO HEARTLAB [facility] POC-Glucose meter (02/06/2020 7:12 AM CDT)Only the most recent of3 results within the time period is included. POC-Glucose Meter 131 (H)Comment: : TESTED 70 - 110 mg/dL [facility] AT [address], [address]: Ruffler/Product Management Intern ID = [id number] for KENDRICK HAN Specimen Blood Performing Organization Address [facility] [place] [address] CENTER CBC with platelet count + automated diff (02/06/2020 4:03 AM CDT)Only the most recent of2 resultswithin the time period is included. WBC 8.1 3.5 - 10.5 K/L [facility] RBC 5.09 4.63 - 6.08 M/L [facility] Hemoglobin 13.5 (L) 13.7 - 17.5 GM/DL [facility] Hematocrit 45.1 40.1 - 51.0 % [facility] MCV 88.6 79.0 - 92.[address] [facility] MCH 26.5 25.7 - 32.2 pg [facility] MCHC 29.9 (L) 32.3 - 36.5 GM/DL [facility] RDW 15.9 (H) 11.6 - 14.4 % [facility] Platelets 265 150 - 450 K/CU MM [facility] MPV 11.2 9.4 - 12.4 fL [facility] nRBC 0 0 - 0 /100 WBC [facility] % Neutros 65 % [facility] % Lymphs 24 % [facility] % Monos 9 % [facility] % Eos 1 % [facility] % Baso 0 % [facility] # Neutros 5.27 1.78 - 5.38 K/L [facility] # Lymphs 1.96 1.32 - 3.57 K/L [facility] # Monos 0.69 0.30 - 0.82 K/L [facility] # Eos 0.08 0.04 - 0.54 K/L [facility] # Baso 0.03 0.01 - 0.08 K/L [facility] Immature Granulocytes-Relative 0 0 - 1 % C HI [facility] Specimen Blood Performing Organization Address City/State/Zipcode Phone Number [facility] MEDICAL [address] [place] [address] CENTER Magnesium (02/06/2020 4:02 AM CDT)Only the most recent of2 resultswithin the time period is included. Magnesium 1.9Comment: Specimen slightly 1.6 - 2.6 mg/dL [facility] Specimen Blood Narrative Performed At Ruffler ID - NELLY W [facility] Performing Organization Address [facility]/Zipcode Phone Number [facility] [address] [place] [address] EXETER Basic metabolic panel (02/06/2020 4:02 AM CDT)Only the most recent of2 results within the time period is included. Sodium 137 136 - 145 meq/L [facility] Potassium 4.4Comment: Specimen slightly 3.5 - 5.1 meq/L [facility] Chloride 101 98 - 107 meq/L [facility] CO2 28 22 - 29 meq/L [facility] BUN 13 7 - 21 mg/dL [facility] Creatinine 0.73Comment: Specimen 0.57 - 1.25 mg/dL [facility] slightly hemolyzed [facility] R Glucose 124 (H) 70 - 105 mg/dL [facility] Calcium 8.2 (L) 8.4 - 10.2 mg/dL [facility] EGFR 112Comment: ESTIMATED GFR IS mL/min/1.73 sq m [facility] NOT ACCURATE CREATININE [facility] CLEARANCE IN PREDICTING GLOMERULAR FILTRATION RATE. ESTIMATED GFR IS NOT APPLICABLE FOR DIALYSIS PATIENTS. Specimen Blood Narrative Performed At Ruffler ID - NELLY Loredo [facility] Performing Organization Address City/[facility] Centercode Phone Number [address] [address] EXETER XR chest 1 view portable / bedside (02/05/2020 5:51 PM CDT)Only the most recent of2 resultswithin the time period is included. Specimen Narrative Performed At FINAL REPORT [facility] TECHNIQUE: Frontal view of the chest. INDICATION: [...] MD Report Verified Date/Time:02/05/2020 18:08:29 Reading Location: [facility] C013T [facility] Reading Room Procedure Note Interface, External Ris [...] Verified Date/Time: 02/05/2020 1 8:08:29 Reading Location: [facility] B1 C013T [employer] nal Reading Room Performing Organization Address City/State/Zipcode Phone Number [facility] Blood gas, arterial (02/05/2020 11:36 AM CDT) pH, Arterial 7.42 7.35 - 7.45 [facility] pCO2, Arterial 48 (H) 35 - 45 mmHg [facility] pO2, Arterial 70 (L) 80 - 90 mmHg [facility] O2 Sat, Arterial 94.8 (L) 96.0 - 97.0 % [facility] HCO3, Arterial 31 (H) 21 - 29 mmol/L [facility] Base Excess, Arterial 5.3 (H) -2.0 - 3.0 mmol/L [facility] Patient Temperature 36.3 C [facility] FIO2 21.0 % [facility] Specimen Blood, Arterial Performing Organization Address City/[facility] Centercode Phone Number [address] [address] CENTER ABORH, manual (02/05/2020 8:59 AM CDT) ABO Grouping AB [facility] Rh Factor POS [facility] Specimen Blood Performing Organization Address City/[facility] Centercode Phone Number [address] [address] Type and screen, automated (02/05/2020 8:30 AM CDT) ABO/RH AUTOMATED (BEAKER) AB POSITIVE [facility] Ab Scrn NEGATIVE [facility] Specimen Blood Performing Organization Address [facility] Phone Number [address] [address] ECG 12 lead (02/05/2020 6:40 AM CDT) Specimen Narrative Performed At Ventricular Rate 64 BPM GE MUSE Atrial Rate 64 BPM P-R Interval 152 ms QRS Duration 106 ms Q-T Interval 380 ms QTC Calculation(Bazett) 392 ms P Camden 51 degrees R Camden 57 degrees T Camden -21 degrees Normal sinus rhythm Incomplete left [...] 380 ms QTC Calculation(Bazett) 392 ms P Camden 51 degrees R Camden 57 degrees T Camden -21 degrees Normal sinus rhythm Incomplete left bundle branch block Nonspecific ST and T wave abnormality Abnormal ECG No previous ECGs available Confirmed by MD FERREIRA YOCHAI ([id number]) on 02/05/2020 1:06:39 PM Performing Organization Address City/State/[facility] Centercode Phone Number ENRIQUE HERNÁNDEZ Hemoglobin A1c (02/05/2020 1:23 AM CDT) Hemoglobin A1C 8.3 (H) 4.3 - 6.1 % [facility] Specimen Blood Performing Organization Address [facility] Phone Number [address] [address] EXETER Blood gas, venous (02/05/2020 1:23 AM CDT) pH, Cuco 7.39 7.32 - 7.42 [facility] pCO2, Cuco 52 (H) 41 - 51 mmHg [facility] pO2, Cuco 147 (H) 25 - 40 mmHg [facility] O2 Sat, Cuco 98.8 (H) 40.0 - 70.0 % [facility] HCO3, Cuco 30 (H) 21 - 29 mmol/L [facility] Base Excess, Cuco 4.3 (H) -2.0 - 3.0 mmol/L [facility] Patient Temperature 37.0 C [facility] FIO2 21.0 % [facility] Specimen Blood Performing Organization Address [facility] Phone Number [address] [address] EXETER Lipid panel (02/05/2020 1:22 AM CDT) Triglycerides 119 mg/dL [facility] Cholesterol 192 mg/dL [facility] HDL 34 mg/dL [facility] LDL Calculated 134 mg/dL [facility] Specimen Blood Narrative Performed At Triglyceride Reference Range: [facility] Low Risk <150 [id number] High Risk 200-499 Very High Risk>=500 Cholesterol Reference Range: Low Risk <200 [id number] High Risk>240 HDL Cholesterol Reference Range: Low Risk >=60 High Risk <40 LDL Cholesterol Reference Range: Optimal<100 Near [id number] Very High >=190 Ruffler ID - NELLY Loredo Performing Organization Address City/State/Zipcode Phone Number [facility] [address] [place] [address] CENTER SARS-CoV2/RT-PCR ([facility]) (02/03/2020 8:16 PM CDT) SARS-COV2/RT-PCR Negative Not Detected, Negative, [facility] See external report for MEDICAL CENTER linked test SARS-COV-[address] [facility] KYLIE [facility] Specimen Other Narrative Performed At Negative result for this test determines that [facility] SARS-CoV-2 RNA was not present in the [...] the Act. Fact Sheet for Healthcare Providers: https://www.ARI/sites/default/files/pro duct/documents/Fact_Sheet_HC_Providers_Lyra_SA RS-CoV-2.pdf Fact Sheet for Healthcare Patients: https://www.ARI/sites/default/files/pro duct/documents/Fact_Sheet_Patients_Lyra_SARS-C oV-2.pdf Performing Laboratory: [address] [place] [address] Performing Organization Address City/State/Zipcode Phone Number [address] [address] CENTER after 03/07/2019 Advance Directives For more information, please contact:[address] [phone] Code Status Date Activated Date Inactivated Comments Full Code 02/04/2020 11:59 PM 02/06/2020 5:54 PM This code status was determined by: Patient
--- OUTSIDE RECORDS SUMMARY | 2020-03-07 04:34 | XMS REPORT | Continuity of Care Document ---
:1965 Author Organization [facility] t Address [address] [place] [address] Care Team Providers Name Role Phone Pcp Primary Care Physician Unavailable Bernardo HAYWOOD Attending Clinician Doctor Unassigned, Name Attending Clinician [...] apnea) 00 Center Morbid Morbid Disease Active [facility] obesity obesity 02-04 - with BMI with BMI 00:00: Medica l of of 00 Center 40.0-44.9, 40.0-44.9, adult adult Syncope Syncope Disease Active [facility] due to due to 02-03 Lu - sick sinus sick sinus 00:00: Me dical syndrome syndrome 00 Center Sick sinus Sick sinus Disease Active [facility] syndrome syndrome 02-03 - due to SA due to SA 00:00: Medi ajith node node 00 Couch dysfunctio dysfunctio n n Homeless Homeless Disease Active [facility] 02[facility]03 [facility] - 00:00: Medical 00 Center Allergies, Adverse Reactions, Alerts This patient has no known allergies or adverse reactions. Social History Social Habit Start Date Stop Date Quantity Comments Source History SDAR Alcohol [facility] Std Drinks [facility] History [facility] Alcohol [facility] Binge [facility] Sex Assigned At [facility] History SDOH Alcohol 2020-02-04 2020-02-04 1 [facility] - Frequency 00:00:00 00:00:00 [facility] Smoking Status Start Date Stop Date Source Current every day smoker 2020-02-06 00:00:00 [facility] Medications Ordered Filled Start Stop Current Ordering [...] Source Systolic blood 2020-02-06 11:21:00 146 mm[Hg] [facility] Diastolic blood 2020-02-06 11:21:00 74 mm[Hg] [facility] S [facility] Heart rate 2020-02-06 11:21:00 80 /min [facility] Body temperature 2020-02-06 11:21:00 37.06 [facility] Respiratory rate 2020-02-06 11:21:00 18 /min [facility] Oxygen saturation in 2020-02-06 11:21:00 94 /min [facility] Arterial blood by Medical Ce nter Pulse oximetry Body weight Measured 2020-02-05 06:35:00 120.929 kg [facility] BMI 2020-02-05 06:35:00 43.03 kg/m2 [facility] Body height 2020-02-04 22:00:00 167.6 cm [facility] Procedures Procedure Date / Time Performed Performing Clinician Chao e ARRYTHMIA IMPLANT REPORT 2020-02-20 13:41:29 Provider, Default [facility] - - SCAN Scanning [facility] RHYTHM STRIP - SCAN 2020-02-08 09:00:23 Provider, Default [facility] ARRYTHMIA IMPLANT REPORT 2020-02-08 09:00:19 Provider, Default [facility] - - SCAN Scanning [facility] CARDIAC CATH REPORT - 2020-02-08 09:00:17 Provider, Default [facility] SCAN [facility] TRANSFUSION SERVICE 2020-02-06 18:02:59 Provider, Default [facility] - REPORT - SCAN Scanning [facility] 2D ECHO W/ DOPPLER 2020-02-06 10:08:41 Fredrick Forrest [facility] (CW/PW/COLOR) [facility] POCT-GLUCOSE METER 2020-02-06 07:12:00 Timoteo Shipley [facility] CBC W/PLT COUNT & AUTO 2020-02-06 04:03:00 Fredrick Forrest [facility] BASIC METABOLIC PANEL 2020-02-06 04:02:00 Fredrick Forrest [facility] (7) [facility] MAGNESIUM 2020-02-06 04:02:00 Lon [facility] POCT-GLUCOSE METER 2020-02-05 22:25:00 Timoteo Shipley [facility] XR CHEST 1 VIEW 2020-02-05 17:51:00 Eduardo Chavez [facility] - PORTABLE/BEDSIDE [facility] POCT-GLUCOSE METER 2020-02-05 16:47:00 Timoteo Shipley [facility] AICD UPGRADE - SINGLE TO 2020-02-05 16:20:00 Prem Elam [facility] DUAL CHAMBER SYSTEM Medical Cent er BLOOD GAS, ARTERIAL 2020-02-05 11:36:00 Dulce Wilde [facility] - [facility] ABORH, MANUAL 2020-02-05 08:59:00 Tiffanie Conner [facility] TYPE AND SCREEN, 2020-02-05 08:30:00 Eduardo Chavez [facility] - AUTOMATED [facility] XR CHEST 1 VIEW 2020-02-05 06:55:00 Dulce Wilde [facility] - PORTABLE/BEDSIDE [facility] ECG 12-LEAD 2020-02-05 06:40:35 Unknown, Hl7 Doctor [facility] HEMOGLOBIN A1C 2020-02-05 01:23:00 Lon [facility] BLOOD GAS, VENOUS 2020-02-05 01:23:[address] [facility] CBC W/PLT COUNT & AUTO 2020-02-05 01:23:[address] [facility] BASIC METABOLIC PANEL 2020-02-05 01:22:00 LonFredrick [place] [facility] (7) [facility] MAGNESIUM 2020-02-05 01:22:00 [facility] LIPID PANEL 2020-02-05 01:22:00 [facility] SARS-COV2/RT-PCR ([facility] 2020-02-03 20:16:00 [facility] - REF LABS) [facility] Plan of Care Planned Activity Planned Date Details Comments Source Future Scheduled 2023-02-[address] - Test 00:00:00 (procedure) [code = [facility] 58374249] Future Scheduled 2020-08-[address] [facility] - Test 00:00:00 measurement [facility] (procedure) [code = 93950849] Future Scheduled 2020-03-[address] [facility] - Test 00:00:00 (#1) [code = [facility] INFLUENZA VACCINE (#1)] Future Scheduled 1975-09-[address] DIABETIC EYE EXAM [facility] - Test 00:00:00 [code = DIABETIC EYE [facility] EXAM] Future Scheduled 1975-09-[address] [facility] - Test 00:00:00 examination [facility] (regime/therapy) [code = 213451697] Future Scheduled 1975-09-07 Urine screening for [facility] - Test 00:00:00 protein (procedure) [facility] [code = 395550123] Future Scheduled [address] [facility] - Test 00:00:00 malignant neoplasm of Medica l Center colon (procedure) [code = 465500823] Encounters Start End Encounter Admission Attending Care Care Encounter Source Date/Time Date/Time Type Type Clinicians Facility Department ID 2020-02-18 2020-02-18 Office LOGAN Chang [id number] 08:02:50 08:54:10 Visit Eunice Escamilla [id number] Pati 4.2.7.2.686 Bella [id number] nal 9 Building 2020-02-07 2020-02-07 Orders Doctor FRANZ [id number] 00:00:00 00:00:00 Only UnassignedBOGDAN 350.1.13.10 [place] [facility] 4.2.7.2.686 [id number] 2020-01-24 2020-01-24 Orders Doctor OSEI [id number] 00:00:00 00:00:00 Only Unassigned, BOGDAN 350.1.13.10 [place] [facility] 4.2.7.2.686 [id number] Results Test Description Test Time Test Comments Results Result [facility] e Comments 2D Echo Ejection FractionSLEH [facility] W/Doppler(CW/PW/C 5 ECHO HEARTLAB - [facility]) 18:17:02 [facility] CPACSInterface, External Ris In - 02/06/2020 6:17 PM CDTTransthoracic Echocardiography Report (TTE) Demographics Patient Name SAMMY VALLE Date of Study 02/06/2020 RU Gender Male Visit Number [id number] Race Unknown Room Number 636 Number Date of 1965 Referring 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 Linda Rodriguez, Interpreting Nilda Myles MD RDCS [...] 131 mg/dL 70-110 H : TESTED AT [facility] [address] [facility] 1538) [facility], 770 30: Joint Sealer/Techni vnaita ID = [id number] for KENDRICK HAN Lab Interpretation (test code = Abnormal 92243-5) [facility] [id number] 07:29:00 Test Item Value Reference Range Interpretation Comments POC-GLUCOSE METER 131 mg/dL 70-110 H : TESTED A T [facility] [address] (BEAKER) (test code = BERTINDIA R [facility], 1538) [address]: Joint Sealer/Techni vanita ID = [id number] for PO KENDRICK VORA Basic metabolic [id number] 04:43:00 Test Item Value Reference Range Interpretation Comments Sodium (test code = 137 meq/L 381-689 2092-2) Potassium (test code = 4.4 meq/L 3.5-5.1 [...] (test code = 8.2 mg/dL 8.4-10.2 L 82750-5) EGFR (test code = 112 mL/min/1.73 sq [place] [address]-6) NOT ACCURATE CREATININE CLEARANCE IN PREDICTING GLOMERULAR FILTRATION RATE . ESTIMATED GFR I S NOT APPLICABLE FOR DIALYSIS PATIENTS. YOMI (test code = YOMI) Joint Sealer ID - NELLY W Lab Interpretation Abnormal (test code = 10122-3) [facility] 04:[facility]00 Test Item Value Reference Range Interpretation Comments Magnesium (test code = 1.9 mg/dL 1.6-2.6 Speci men 38297-0) slightly hemolyzed YOMI (test code = YOMI) Joint Sealer ID - NELLY W Lab Interpretation Normal (test code = 46993-0) [facility] 04:43:00 Test Item Value Reference Range Interpretation Comments MAGNESIUM (BEAKER) 1.9 mg/dL 1.6-2.6 Specimen slightly (test code = 627) hemolyzed Joint Sealer ID - NELLY WBASIC METABOLIC [id number] 04:43:00 Test Item Value Reference Range Interpretation [...] S NOT APPLICABLE FOR DIALYSIS PATIEN TS. Joint Sealer ID - NELLY WC with platelet count + automated [id number] 04:32:00 Test Item Value Reference Range Interpretation [...] 450 K/CU MM MPV (test code = 47467-9) 11.2 fL 9.4-12.4 nRBC (test code = [...] 2801) Lab Interpretation (test code = Abnormal 18989-4) [facility] W/PLT COUNT & AUTO [id number] 04:32:00 Test Item Value Reference Range Interpretation [...] PERCENT (BEAKER) (test code = 2801) POCT-GLUCOSE [id number] 22:36:00 Test Item Value Reference Range Interpretation Comments POC-GLUCOSE METER 118 mg/dL 70-110 H [facility] (test code = EVA Marc[place], 1538) [address]: Joint Sealer/Techni vanita ID = [id number] for CA RPIO, RICARDO RAD, CHEST, 1 VIEW, NON [id number] 18:08:00Reason for exam:->Confirm pacemaker lead placementShould this [...] MDReport Verified Date/Time: 02/05/2020 18:08:29 Reading Location: [address] Transitional Reading Room XR chest 1 view portable / [id number] 18:08:00 Interface, External Ris In - 02/05/2020 [...] MDReport Verified Date/Time: 02/05/2020 18:08:29 Reading Location: [address] Transitional Reading [facility] [id number] 17:06:00 Test Item Value Reference Range Interpretation Comments POC-GLUCOSE METER 91 mg/dL 70-110 : TESTED A T [facility] [address] (BEAKER) (test code = [place], 1538) [address]: Joint Sealer/Techni vanita ID = [id number] for JADYN DOMÍNGUEZ ECG 12 [id number] 13:06:41Interface, External Ris In - 02/05/2020 1:06 PM CDTVentricular Rate 64 BPMAtrial Rate 64 BPMP-R Interval 152 msQRS Duration 106 msQ-T Interval 380 msQTC Calculation(Bazett) 392 msP [place] 51 degreesR [place] 57 degreesT [place] -21 degreesNormal sinus rhythmIncomplete left bundle branch blockNonspecific ST and T wave abnormalityAbnormal ECGNo previous ECGs availableConfirmed by MD JHON, BLANQUITA ([id number]) on 02/05/2020 1:06:39 [facility], [id number] 11:49:00 Test Item Value Reference Range Interpretation [...] % Lab Interpretation (test code = Abnormal 96448-7) [facility], [id number] 11:49:00 Test Item Value Reference Range Interpretation [...] (test code = 1819) 21.0 % Hemoglobin [id number] 10:59:00 Test Item Value Reference Range Interpretation Comments Hemoglobin A1C (test code = 4548-4) 8.3 % 4.3-6.1 H Lab Interpretation (test code = Abnormal 41626-7) [facility] CenterHEMOGLOBIN [id number] 10:59:00 Test Item Value Reference Range Interpretation Comments HEMOGLOBIN A1C (BEAKER) (test code = 8.3 % 4.3-6.1 H 368) ABORH, [id number] 09:54:00 Test Item Value Reference Range Interpretation Comments ABO Grouping (test code = 2588) AB Rh Factor (test code = 2589) POS [facility] CenterType and screen, [id number] 09:35:00 Test Item Value Reference Range Interpretation Comments ABO/RH AUTOMATED (BEAKER) (test AB POSITIVE code = 2260) Ab Scrn (test code = 890-4) NEGATIVE [facility] CenterRAD, CHEST, 1 VIEW, NON [id number] 07:14:00 Reason for exam:->hypoxiaShould this be performed [...] 40-70 H HCO3, Cuco (test code = 82504-8) 30 mmol/L 21-29 H Base Excess, Cuco (test code = 4.3 mmol/L -2-3 H 1927-3) Patient Temperature (test code = 37.0 C 8310-5) FIO2 (test code = 1819) 21 % Lab Interpretation (test code = Abnormal 84393-3) [facility] CenterBL[facility], [id number] 02:00:00 Test Item Value Reference Range Interpretation [...] (test code = 1819) 21.0 % Lipid [id number] 01:56:00 Test Item Value Reference Range Interpretation Comments Triglycerides (test 119 mg/dL code = 2571-8) Cholesterol (test code 192 mg/dL = 2093-3) HDL (test code = 34 mg/dL 2085-9) LDL Calculated (test 134 mg/dL code = 34716-4) YOMI (test code = YOMI) Triglyceride Reference Range: Low Risk <150 Borderline 150-199 High Risk 200-499 Very High Risk >=500 Cholesterol Reference Range: Low Risk <200 Borderline 200-239 High Risk >240 HDL Cholesterol Reference Range: Low Risk >=60 High Risk <40 LDL Cholesterol Reference Range: Optimal <100 Near Optimal 100-129 Borderline 130-159 High 160-189 Very High >=190 Joint Sealer GLYNN VILLEGAS Gertrude [facility] CenterMAGNESIUM2020-08-04 01:56:00 Test Item Value Reference Range Interpretation Comments MAGNESIUM (BEAKER) (test code = 1.8 mg/dL 1.6-2.6 627) Joint Sealer GLYNN VILLEGAS WBASIC METABOLIC [id number] 01:56:00 Test Item Value Reference Range Interpretation [...] S NOT APPLICABLE FOR DIALYSIS PATIEN TS. Joint Sealer ID Eunice VILLEGAS WLIPID [id number] 01:56:00 Test Item Value Reference Range Interpretation [...] Borderline 130-159 High 160-189 Very High >=190 Joint Sealer ID - DONNAWCBC W/PLT COUNT & AUTO [id number] 01:42:00 Test Item Value Reference Range Interpretation [...] PERCENT (BEAKER) (test code = 2801) SARS-CoV2/RT-PCR ([facility])2020-02-04 10:32:00 Test Item Value Reference Range Interpretation Comments SARS-COV2/RT-PCR Negative Not Detected, (test code = Negative, See [address]-8) external report for linked test SARS-COV-2 [facility] PERFORMING LAB (test code = 03391-4) YOMI (test code = Negative result for [...] of the Act. Fact Sheet for Healthcare Providers:https://www.[employer]/sites/default/f angelina/product/documents/F act_Sheet_HC_Providers_L qrf_NASQ-KyG-8.pdf Fact Sheet for Healthcare Patients:https://www.[employer]zby/sites/default/fi les/product/documents/Fa ct_Sheet_Patients_Lyra_S ARS-CoV-2.pdf Performing Laboratory:[facility] [place] [address] [facility] ([facility] REF [facility]S)2020-02-04 10:32:00 Test Item Value Reference Range Interpretation Comments SARS-COV2/RT-PCR (test Negative Not Detected, Negative, code = 3349547) See external report for linked test SARS-COV-2 PERFORMING LAB [facility] KYLIE (test code = 0860489) Negative result for this test determines that [...] 564(g) of the Act.Fact Sheet for Healthcare Providers:https://www.[employer]/sites/default/files/product/documents/Fact_Shee b_HZ_Anoinemhv_Sdxc_PVXV-LuE-5.pdfFact Sheet for Healthcare Patients:https://www.[employer]/sites/default/files/product/ documents/Blmm_Qwwfh_Hovljllt_Uefu_TESZ-QuV-3.pdfPerforming Laboratory:[facility] [place] [address]
[2020-03-07 05:13] LABS: Absolute Lymphocytes (CBC) 1.7 K/uL (0.7-4.9); Lymphocytes % 22.2 % (15.3-44.8); MPV 9.4 fL (7.6-11.3); RBC Red Blood Cell Count 4.71 M/uL (4.33-5.43)
[2020-03-07] MEDS ORDERED: MORPHINE 4 MG/ML SYR ONE (05:13)
[2020-03-07] MEDS ORDERED: ONDANSETRON 4 MG/2 ML VIAL ONE (05:13)
[2020-03-07 05:14] LABS: Protime INR 1.03
[2020-03-07 05:20] LABS: ALT/SGPT 112 U/L (12-78); AST/SGOT 44 U/L (15-37); Albumin 3.2 g/dL (3.4-5.0); Alkaline Phosphatase 48 U/L (45-117); BUN Blood Urea Nitrogen 13 mg/dL (7-18); Bicarbonate 26 mmol/L (21-32); Bilirubin Direct < 0.1 mg/dL (0-0.2); Bilirubin Total 0.2 mg/dL (0.2-1.0); Glucose Level 136 mg/dL (74-106); Magnesium 1.9 mg/dL (1.8-2.4); NT PRO-BNP 38 pg/mL (<125); Potassium 3.8 mmol/L (3.5-5.1); Protein, Total 6.6 g/dL (6.4-8.2); Sodium Level 142 mmol/L (136-145); Troponin (Emerg Dept Use Only) < 0.02 ng/mL (0.0-0.045)
[2020-03-07 05:26] LABS: Arterial Blood Carboxyhemoglob 1.7 % (0-1.5); Blood Gas Oxyhemoglobin 82.5 % (94-97); Blood O2 Saturation 84.7 % (92-98.5)
--- NOTE | 2020-03-07 07:23 | EDPHYS ---
Physician Documentation [facility] Name: Juan Miguel Langston Age: 54 yrs Sex: Male : 1965 Arrival Date: 03/07/2020 Time: 04:31 Bed 6 Private MD: ED Physician Vincent Hope HPI: 03/07 05:00 This 54 yrs old Male presents to ER via EMS with complaints of Chest Pain, pkl Possible Heart Attack. 05:00 The patient or guardian reports chest pain that is located primarily in the substernal pkl area. Onset: just prior to arrival. The pain radiates to the left arm. Associated signs and symptoms: Pertinent positives: shortness of breath. The chest pain is described as crushing. The patient has been recently been admitted at [facility], was discharged earlier this week. Patient was admitted to this hospital 5 days ago for chest pain and was found to have right pulmonary emboli. Historical: - Allergies: 04:38 Azithromycin; bb 04:38 Beta-Blockers (Beta-Adrenergic Bloc; bb 04:38 Metoprolol Tartrate; bb - Home Meds: 08:48 aspirin 325 mg Oral tab [Active]; atorvastatin 40 mg Oral tab 1 tab nightly [Active]; jl7 clopidogrel 75 mg Oral tab 1 tab once daily [Active]; Combivent 18-103 mcg/actuation Inhl aero 2 puffs 4 times per day [Active]; isosorbide 60 mg ER daily [Active]; Lasix 20 mg Oral tab once daily [Active]; lisinopril 40 mg Oral tab once daily [Active]; Livalo 4 mg Oral tab 1 tab nightly [Active]; metformin 500 mg Oral tab 1 tab 2 times per day [Active]; omeprazole 40 mg Oral cpDR 1 cap once daily [Active]; ProAir HFA 90 mcg/actuation inhalation HFAA 2 puffs every 6 hours [Active]; tramadol 50 mg Oral tab 1 tab every 6 hours for Pain [Active]; - PMHx: 04:38 Angina; COPD; Diabetes - NIDDM; High Cholesterol; Hypertension; Myocardial infarction; bb Sleep Apnea; - PSHx: 04:38 pacemaker; bb - Immunization history:: Adult Immunizations up to date. - Social history:: Smoking status: Patient reports the use of cigarette tobacco products, smokes one-half pack cigarettes per day, Patient/guardian denies using alcohol, street drugs. ROS: 05:00 Eyes: Negative for injury, pain, redness, and discharge, ENT: Negative for injury, pkl pain, and discharge, Neck: Negative for injury, pain, and swelling. 05:00 Cardiovascular: Positive for chest pain. 05:00 Respiratory: Positive for shortness of breath. 05:00 Abdomen/GI: Negative for abdominal pain, nausea, vomiting, and diarrhea. 05:00 Back: Negative for acute changes. 05:00 : Negative for urinary symptoms. 05:00 MS/extremity: Negative for acute changes. 05:00 Skin: Negative for rash. 05:00 Neuro: Negative for altered mental status. Exam: 05:00 Head/Face: Normocephalic, atraumatic. Eyes: Pupils equal round and reactive to light, pkl extra-ocular motions intact. Lids and lashes normal. Conjunctiva and sclera are non-icteric and not injected. Cornea within normal limits. Periorbital areas with no swelling, redness, or edema. ENT: Nares patent. No nasal discharge, no septal abnormalities noted. Tympanic membranes are normal and external auditory canals are clear. Oropharynx with no redness, swelling, or masses, exudates, or evidence of obstruction, uvula midline. Mucous membranes moist. Neck: Trachea midline, no thyromegaly or masses palpated, and no cervical lymphadenopathy. Supple, full range of motion without nuchal rigidity, or vertebral point tenderness. No Meningismus. Chest/axilla: Normal chest wall appearance and motion. Nontender with no deformity. No lesions are appreciated. Cardiovascular: Regular rate and rhythm with a normal S1 and S2. No gallops, murmurs, or rubs. Normal PMI, no JVD. No pulse deficits. Respiratory: Lungs have equal breath sounds bilaterally, clear to auscultation and percussion. No rales, rhonchi or wheezes noted. No increased work of breathing, no retractions or nasal flaring. Abdomen/GI: Soft, non-tender, with normal bowel sounds. No distension or tympany. No guarding or rebound. No evidence of tenderness throughout. Back: No spinal tenderness. No costovertebral tenderness. Full range of motion. Skin: Warm, dry with normal turgor. Normal color with no rashes, no lesions, and no evidence of cellulitis. MS/ Extremity: Pulses equal, no cyanosis. Neurovascular intact. Full, normal range of motion. Neuro: Awake and alert, GCS 15, oriented to person, place, time, and situation. Cranial nerves II-XII grossly intact. Motor strength 5/5 in all extremities. Sensory grossly intact. Cerebellar exam normal. Normal gait. Vital Signs: 04:35 BP 154 / 84; Pulse 87; Resp 16 S; Temp 98.4(O); Pulse Ox 96% on R/A; Weight 123.83 kg bb (R); Height 5 ft. 6 in. (167.64 cm) (R); Pain 10/10; 05:32 BP 157 / 78; Pulse 83; Resp 16; Pulse Ox 98% 2 lpm ; rv 06:12 BP 146 / 91; Pulse 78; Resp 14; Pulse Ox 98% 2 lpm ; rv 06:30 Pulse Ox 85% on R/A; rv 06:30 BP 159 / 78; Pulse 89; Resp 18; Pulse Ox 98% on 2 lpm NC; rv 07:19 BP 156 / 77; Pulse 90; Resp 18; Pulse Ox 100% on 2 lpm NC; tw2 08:31 BP 135 / 90; Pulse 79; Resp 17; Pulse Ox 98% on 2 lpm NC; tw2 04:35 Body Mass Index 44.06 (123.83 kg, 167.64 cm) bb MDM: 04:34 Patient medically screened. pkl 07:19 Data reviewed: vital signs, nurses notes, lab test result(s), EKG, radiologic studies. pk ED course: Talked to Dr. Eduardo Donald, for observation. 03/07 04:56 Order name: Basic Metabolic Panel; Complete Time: 05:38 pkl 03/07 04:56 Order name: CBC with Diff; Complete Time: 05:38 pkl 03/07 04:56 Order name: LFT's; Complete Time: 05:38 pkl 03/07 04:56 Order name: Magnesium; Complete Time: 05:38 pkl 03/07 04:56 Order name: NT PRO-BNP; Complete Time: 05:38 pkl 03/07 04:56 Order name: PT-INR; Complete Time: 05:38 pkl 03/07 04:56 Order name: Troponin (emerg Dept Use Only); Complete Time: 05:38 pkl 03/07 04:56 Order name: XRAY Chest (1 view) pkl 03/07 04:56 Order name: EKG; Complete Time: 04:57 pkl 03/07 05:12 Order name: D-Dimer; Complete Time: 06:01 pkl 03/07 05:12 Order name: ABG; Complete Time: 05:38 pkl 03/07 05:40 Order name: CT Chest For PE Angio pkl 03/07 04:56 Order name: Cardiac monitoring; Complete Time: 04:56 pkl 03/07 04:56 Order name: EKG - Nurse/Tech; Complete Time: 04:56 pkl 03/07 04:56 Order name: IV Saline Lock; Complete Time: 04:57 pkl 03/07 04:56 Order name: Labs collected and sent; Complete Time: 04:57 pkl 03/07 04:56 Order name: O2 Per Protocol; Complete Time: 04:57 pkl 03/07 04:56 Order name: O2 Sat Monitoring; Complete Time: 04:57 pkl Administered Medications: 05:04 Drug: morphine 4 mg {Note: rass 0.} Route: IVP; Site: right antecubital; rv 06:44 Follow up: Response: No adverse reaction; Marked relief of symptoms; Pain is decreased; rv RASS: Drowsy (-1) 05:04 Drug: Zofran (Ondansetron) 4 mg Route: IVP; Site: right antecubital; rv 06:44 Follow up: Response: No adverse reaction rv Disposition: 03/07/20 07:22 Hospitalization ordered by Triston Donald for Observation. Preliminary diagnosis is Chest pain. Right pulmonary emboli. Hypoxia. - Bed requested for Telemetry/MedSurg (observation). - Status is Observation. jl7 - Condition is Stable. - Problem is new. - Symptoms are unchanged. Signatures: Dispatcher [employer] EDMS Vincent Hope MD MD pkl Val Daniel RN RN Redd Marinelli RN RN jl7 Nathen Fang RN RN ja1 Alex Gil, RN RN rv Corrections: (The following items were deleted from the chart) 08:27 07:22 Hospitalization Ordered by Triston Donald MD for Observation. Preliminary ja1 diagnosis is Chest pain. Right pulmonary emboli. Hypoxia. Bed requested for Telemetry/MedSurg (observation). Status is Observation. Condition is Stable. Problem is new. Symptoms are unchanged. pkl 09:29 08:27 03/07/2020 07:22 Hospitalization Ordered by Triston Donald MD for Observation. jl7 Preliminary diagnosis is Chest pain. Right pulmonary emboli. Hypoxia. Bed requested for Telemetry/MedSurg (observation). Status is Observation. Condition is Stable. Problem is new. Symptoms are unchanged. ja1
--- NOTE | 2020-03-07 07:23 | ER ---
Nurse's Notes [facility] Name: Juan Miguel Langston Age: 54 yrs Sex: Male : 1965 Arrival Date: 03/07/2020 Time: 04:31 Bed 6 Private MD: Diagnosis: Chest pain. Right pulmonary emboli. Hypoxia Presentation: 03/07 04:35 Chief complaint: EMS states: they were toned out for report of pt with chest pain pt bb recently discharged from the hospital for respiratory problems. Coronavirus screen: At this time, the client does not indicate any symptoms associated with coronavirus-19. Ebola Screen: No symptoms or risks identified at this time. Initial Sepsis Screen: Does the patient meet any 2 criteria? No. Patient's initial sepsis screen is negative. Does the patient have a suspected source of infection? No. Patient's initial sepsis screen is negative. Risk Assessment: Do you want to hurt yourself or someone else? Patient reports no desire to harm self or others. Onset of symptoms was March 07, 2020. Care prior to arrival: Medication(s) given: ASA, 81 mg, x 4, Nitroglycerin, 0.4 mg SL x 1. 04:35 Method Of Arrival: EMS: [facility] bb 04:35 Acuity: DESTINY 3 bb Historical: - Allergies: 04:38 Azithromycin; bb 04:38 Beta-Blockers (Beta-Adrenergic Bloc; bb 04:38 Metoprolol Tartrate; bb - Home Meds: 08:48 aspirin 325 mg Oral tab [Active]; atorvastatin 40 mg Oral tab 1 tab nightly [Active]; jl7 clopidogrel 75 mg Oral tab 1 tab once daily [Active]; Combivent 18-103 mcg/actuation Inhl aero 2 puffs 4 times per day [Active]; isosorbide 60 mg ER daily [Active]; Lasix 20 mg Oral tab once daily [Active]; lisinopril 40 mg Oral tab once daily [Active]; Livalo 4 mg Oral tab 1 tab nightly [Active]; metformin 500 mg Oral tab 1 tab 2 times per day [Active]; omeprazole 40 mg Oral cpDR 1 cap once daily [Active]; ProAir HFA 90 mcg/actuation inhalation HFAA 2 puffs every 6 hours [Active]; tramadol 50 mg Oral tab 1 tab every 6 hours for Pain [Active]; - PMHx: 04:38 Angina; COPD; Diabetes - NIDDM; High Cholesterol; Hypertension; Myocardial infarction; bb Sleep Apnea; - PSHx: 04:38 pacemaker; bb - Immunization history:: Adult Immunizations up to date. - Social history:: Smoking status: Patient reports the use of cigarette tobacco products, smokes one-half pack cigarettes per day, Patient/guardian denies using alcohol, street drugs. Screenin:56 Abuse screen: Denies threats or abuse. Denies injuries from another. Nutritional rv screening: No deficits noted. Tuberculosis screening: No symptoms or risk factors identified. Fall Risk None identified. Assessment: 04:54 General: Appears comfortable, Behavior is calm, cooperative. Pain: Complains of pain in rv chest Pain radiates to left arm Pain currently is 10 out of 10 on a pain scale. Quality of pain is described as sharp, Pain began suddenly. Neuro: Level of Consciousness is awake, alert, obeys commands, Oriented to person, place, time, situation. Cardiovascular: Reports chest pain, Rhythm is sinus rhythm Chest pain is described as severe, Pain is 10 out of 10 on a pain scale. quality is heaviness, sharp, is located in anterior chest wall radiates to left arm(s) began suddenly, episodes are continuous. Respiratory: Airway is patent Respiratory effort is even, unlabored, Breath sounds are clear bilaterally. Derm: Skin is intact. 07:22 Reassessment: Pt laying in bed with eyes closed, respirations even and unlabored, no jl7 signs of distress noted. Dr. Hope reports pt will be put in for observation. 08:31 Reassessment: Patient appears in no apparent distress at this time. No changes from tw2 previously documented assessment. Patient and/or family updated on plan of care and expected duration. Pain level reassessed. Patient is alert, oriented x 3, equal unlabored respirations, skin warm/dry/pink. Vital Signs: 04:35 BP 154 / 84; Pulse 87; Resp 16 S; Temp 98.4(O); Pulse Ox 96% on R/A; Weight 123.83 kg bb (R); Height 5 ft. 6 in. (167.64 cm) (R); Pain 10/10; 05:32 BP 157 / 78; Pulse 83; Resp 16; Pulse Ox 98% 2 lpm ; rv 06:12 BP 146 / 91; Pulse 78; Resp 14; Pulse Ox 98% 2 lpm ; rv 06:30 Pulse Ox 85% on R/A; rv 06:30 BP 159 / 78; Pulse 89; Resp 18; Pulse Ox 98% on 2 lpm NC; rv 07:19 BP 156 / 77; Pulse 90; Resp 18; Pulse Ox 100% on 2 lpm NC; tw2 08:31 BP 135 / 90; Pulse 79; Resp 17; Pulse Ox 98% on 2 lpm NC; tw2 04:35 Body Mass Index 44.06 (123.83 kg, 167.64 cm) bb ED Course: 04:31 Patient arrived in ED. cl3 04:33 Vincent Hope MD is Attending Physician. pkl 04:38 Triage completed. bb 04:38 Arm band placed on Patient placed in an exam room, on a stretcher, on cardiac technician, bb on pulse oximetry. EKG completed in triage. Results shown to MD. 04:53 Alex Gil, NICCI is Primary Nurse. rv 04:53 Initial lab(s) drawn, by me, sent to lab. EKG done, by ED staff, reviewed by Vincent mireles MD. Maintain EMS IV. Dressing intact. Good blood return noted. Site clean \T\ dry. Gauge \T\ site: g20 right ac. Patient maintains SpO2 saturation greater than 95% on room air. 04:56 Patient has correct armband on for positive identification. Placed in gown. Bed in low rv position. Call light in reach. salvage engineer on. Pulse ox on. NIBP on. 05:24 XRAY Chest (1 view) In Process Unspecified. EDMS 05:34 No provider procedures requiring assistance completed. rv 06:11 CT Chest For PE Angio In Process Unspecified. EDMS 07:21 Triston Donald MD is Hospitalizing Provider. pkl 07:22 Patient admitted, IV remains in place. intact, No redness/swelling at site. jl7 Administered Medications: 05:04 Drug: morphine 4 mg {Note: rass 0.} Route: IVP; Site: right antecubital; rv 06:44 Follow up: Response: No adverse reaction; Marked relief of symptoms; Pain is decreased; rv RASS: Drowsy (-1) 05:04 Drug: Zofran (Ondansetron) 4 mg Route: IVP; Site: right antecubital; rv 06:44 Follow up: Response: No adverse reaction rv Outcome: 07:22 Decision to Hospitalize by Provider. zeb 09:29 Admitted to Tele accompanied by tech, via stretcher, room 210, with oxygen, with chart, ivett Report called to NICCI Mclean 09:29 Condition: stable 09:29 Discharge instructions given to patient, Instructed on the need for admit, Demonstrated understanding of instructions. 09:29 Patient left the ED. ivett Signatures: Dispatcher [employer] EDMS Vincent Hope MD MD pkl aVl Daniel, RN RN bb Myla Shelton RN RN tw2 Redd Hunt RN RN jl7 Alex Gil RN RN rv Robert Beltre cl3 Corrections: (The following items were deleted from the chart) 07:23 07:20 Reassessment: Patient appears in no apparent distress at this time. Patient jl7 and/or family updated on plan of care and expected duration. Pain level reassessed. Patient is alert, oriented x 3, equal unlabored respirations, skin warm/dry/pink. tw2
--- NOTE | 2020-03-07 07:59 | P.HP ---
Certification for Inpatient Patient admitted to: Observation With expected LOS: <2 Midnights Practitioner: I am a practitioner with admitting privileges, knowledge of patient current condition, hospital course, and medical plan of care. Services: Services provided to patient in accordance with Admission requirements found in Title 42 Section 412.3 of the Code of Federal Regulations Patient History Date of Service: 03/07/20 History of Present Illness: Patient with known right PE recently admitted from 03/03-03/04, presents with progressively worsening shortness of breath. PMH: HTN, HLD, CAD, COPD, GERD, morbidly obese. Patient denies chest pain. He was noted to be hypoxic in the 80s on room air in the ER. No fevers, no chills. He also states he never filled the eliquis, reporting that he could not afford it and given that he was given a free coupon. Labwork was rather unremarkable except for an ABG: PO2 60.1, pCO2 55.3 - likely in setting of PE and chronic COPD. A CTA was obtained, with no new changes, no expansion of the known PE Allergies azithromycin Adverse Reaction (Verified 02/03/20 22:25) Hives Beta-Blockers (Beta-Adrenergic Bloc Adverse Reaction (Verified 02/03/20 22:25) Anaphylaxis metoprolol Adverse Reaction (Verified 02/03/20 22:25) Anaphylaxis Home Medications: Atorvastatin Calcium 40 mg PO DAILY 03/07/20 Clopidogrel Bisulfate [Plavix] 75 mg PO DAILY 03/07/20 Furosemide 1.5 tab PO DAILY 03/07/20 Lisinopril [Zestril] 40 mg PO DAILY 03/07/20 Metformin HCl [Glucophage] 500 mg PO BIDWM 03/07/20 Nitroglycerin 0.4 mg SL PRN PRN 03/07/20 - Past Medical/Surgical History Diabetic: Yes -: Angina -: HTN -: Hyperlipidemia -: Tobacco abuse -: CAD -: COPD -: GERD -: Diabetes- NIDDM -: MD -: Sleep Apnea -: cardic cath -: Cardiac stress tests October 2017 showed no stress-induced ischemia Psychosocial/ Personal History: Patient is single. Patient is homeless. - Family History MOM -: Heart disease, Other (see notes) Notes: MASSIVE MD 61YR and arthritis DAD -: Heart disease, Other (see notes) Notes: POOR CIRCULATION TO LEGS PER PT - Social History Alcohol use: No CD- Drugs: No Caffeine use: Yes Review of Systems General: Unremarkable Eyes: Unremarkable ENT: Unremarkable Respiratory: Shortness of Breath, SOB with Excertion Cardiovascular: Unremarkable Gastrointestinal: Unremarkable Genitourinary: Unremarkable Musculoskeletal: Unremarkable Integumentary: Unremarkable Neurological: Unremarkable Physical Examination - Physical Exam General: Alert, Mild distress, Obese HEENT: PERRLA, Sclerae nonicteric Neck: Supple, 2+ carotid pulse no bruit, No LAD, Without JVD or thyroid abnormality Respiratory: Normal air movement, Diminished, Expiratory wheezes (Mild), Other (Tachypnea) Cardiovascular: Regular rate/rhythm, Normal S1 S2 Gastrointestinal: Normal bowel sounds, No tenderness Musculoskeletal: No tenderness Integumentary: No rashes Neurological: Normal gait, Normal speech, Normal tone, Normal affect Lymphatics: No axilla or inguinal lymphadenopathy - Studies Laboratory Data (last 24 hrs) 03/07/20 04:35: PT 12.1, INR 1.03 03/07/20 04:35: WBC 7.8 D, Hgb 12.8 L, Hct 40.0, Plt Count 230 03/07/20 04:35: Sodium 142, Potassium 3.8, BUN 13, Creatinine 0.77, Glucose 136 H, Magnesium 1.9, Total Bilirubin 0.2, AST 44 H, ALT 112 H, Alkaline Phosphatase 48 Assessment and Plan - Advance Directives Does patient have a Living Will: No Does patient have a Durable POA for Healthcare: No Physician Review Additional Text: Acute hypoxic respiratory failure Shortness of Breath, right PE CAD HTN COPD HLD DM Possible sinus node dysfunction s/p Pacemeker CHF possibly diastolic Obesity Smoker Acute hypoxic respiratory failure in setting of right PE -no expansion/worsening of PE -patient requires oxygen supplementation, likely combo of PE, obesity, likely BRIDGET, noncompliance -homeless, patient states he will not fill eliquis, will start him on Lovenox and bridged to Coumadin CAD, HTN -continue home meds COPD - continue home meds HLD - continue home meds DM - SSI, continue home meds CHF - does not appear fluid overloaded Dispo: pt is homeless, reports can't afford any anticoagulation. Coumadin probably the cheapest, will have to bridge him Time Spent Managing Pts Care (In Minutes): 55
--- NOTE | 2020-03-07 09:13 | RAD REPORT ---
EXAM DESCRIPTION: RAD - Chest Single View - 03/07/2020 5:24 am CLINICAL HISTORY: CHEST PAIN Chest pain. COMPARISON: Chest Single View dated 03/02/2020; Chest Single View dated 02/03/2020; Chest Single View d ated 01/18/2020; Chest Single View dated 12/01/2019 FINDINGS: Portable technique limits examination quality. The lungs are grossly clear. The heart is normal in size. No displaced fractures.Dual lead pacer monisha ce is present. IMPRESSION: No acute intrathoracic process suspected.
--- NOTE | 2020-03-07 09:48 | RAD REPORT ---
EXAM DESCRIPTION: Chest For Pe Angio ADDENDUM #1 COMPARISON From 03/02/2003 is now available. There is no significant change from that study. Critical findings were discussed with and acknowledged by Dr. Vincent Hope on 03/07/2020 6:31 AM CDT. Electronically signed by: Indra Small MD 03/07/2020 6:32 AM CDT End of Addendum CLINICAL HISTORY: Chest pain;Dyspnea COMPARISON: None. TECHNIQUE: CT CHEST ANGIOGRAPHY WITH IV CONTRAST on 03/07/2020 5:40 AM CDT. MIPS reconstructions were generated. This exam was performed according to our departmental dose-optimization program, which includes autom ated exposure control, adjustment of the mA and/or kV according to patient size and/or use of iterati ve reconstruction technique. MIP images were generated. FINDINGS: Thoracic aorta is normal in course and caliber without aneurysm or dissection. There are f illing defects within proximal branches of the right lower lobe pulmonary artery. Pulmonary arteries are somewhat poorly opacified. Evaluation of lungs is limited by motion. The heart is enlarged. There is a left-sided dual-chamber pacemaker. There is no pericardial effusion . Intrathoracic lymph nodes are not enlarged. There is no pleural effusion, pleural thickening or pneumothorax. Central airways are patent. There i s no focal consolidation. In the upper abdomen, liver is fatty in attenuation. There are no acute osseous findings. No suspic ious bony lesions. IMPRESSION: No aortic dissection or aneurysm. Right lower lobe pulmonary emboli without evidence of right heart strain. No pneumonia Electronically signed by: Indra Small MD 03/07/2020 6:26 AM CDT Due to temporary technical issues with the PACS/Fluency reporting system, reports are being signed by the in house radiologist without review as a courtesy to ensure prompt reporting. The interpreting r adiologist is fully responsible for the content of the report.
--- NOTE | 2020-03-07 11:10 | EKG ---
Test Date: 2020-03-07 Test Time: 04:33:50 Administrative Tech: SKYLA MEASUREMENT RESULTS: Intervals: Rate: 85 WV: 132 QRSD: 94 QT: 370 QTc: 440 [place]: P: 39 WV: 132 QRS: 52 T: 20 INTERPRETIVE STATEMENTS: Normal sinus rhythm Anterior infarct, age undetermined Abnormal ECG Compared to ECG 03/02/2020 11:05:16 No significant changes Electronically Signed On 03-07-20 11:10:08 CDT by Nazario Anderson
[2020-03-07] MEDS: INSULIN -REGULAR HUMAN 50 UNIT/0.5 ML ML SQ SCH ×3 (11:30→19:57)
[2020-03-07 14:35] VITALS: BMI 44.0
[2020-03-07] MEDS ORDERED: Enoxaparin 120 MG/0.8 ML SYR SQ SCH (15:00)
[2020-03-07] MEDS: WARFARIN SODIUM 5 MG TAB PO SCH (16:52)
[2020-03-07 17:57] LABS: Urine Appearance CLEAR; Urine Bilirubin NEGATIVE (NEG); Urine Blood NEGATIVE (NEG); Urine Color YELLOW; Urine Glucose NEGATIVE (NEG); Urine Protein 2+ (NEG); Urine Specific Gravity >=1.030 (1.005-1.030); Urine Urobilinogen 0.2 mg/dL (0.2-1.0); Urine pH 5.5 (5.0-7.0)
[2020-03-07] MEDS ORDERED: NITROGLYCERIN 0.4 MG/TAB SL PRN (18:13)
[2020-03-07 18:39] LABS: Urine Microscopic Reflex ORDER UMIC
[2020-03-07 20:21] LABS: Urine Bacteria <20 /HPF (NONE SEEN); Urine Culture Reflex Order NOT NEEDED; Urine RBC <5 /HPF (NONE SEEN); Urine Trichomonas PRESENT (NONE SEEN)
[2020-03-08 06:11] LABS: Absolute Lymphocytes (CBC) 1.8 K/uL (0.7-4.9); Basophils % 1.2 % (0-1.3); Hematocrit 44.3 % (39.6-49.0); Lymphocytes % 21.6 % (15.3-44.8); MPV 9.3 fL (7.6-11.3); RBC Red Blood Cell Count 5.15 M/uL (4.33-5.43)
[2020-03-08 06:14] LABS: Protime INR 1.03
[2020-03-08 06:34] LABS: ALT/SGPT 115 U/L (12-78); AST/SGOT 38 U/L (15-37); Albumin 3.5 g/dL (3.4-5.0); Alkaline Phosphatase 57 U/L (45-117); BUN Blood Urea Nitrogen 12 mg/dL (7-18); Bicarbonate 33 mmol/L (21-32); Bilirubin Total 0.2 mg/dL (0.2-1.0); Glucose Level 154 mg/dL (74-106); Potassium 4.7 mmol/L (3.5-5.1); Protein, Total 7.2 g/dL (6.4-8.2); Sodium Level 140 mmol/L (136-145)
[2020-03-08] MEDS: INSULIN -REGULAR HUMAN 50 UNIT/0.5 ML ML SQ SCH ×4 (07:30→20:25)
[2020-03-08] MEDS: lisinopriL 20 MG TAB PO SCH (08:07)
[2020-03-08] MEDS: FUROSEMIDE 40 MG TABLET PO SCH (08:08)
[2020-03-08] MEDS: predniSONE 20 MG TAB PO SCH ×2 (08:08→20:19)
[2020-03-08] MEDS: ATORVASTATIN 40 MG TAB PO SCH (08:08)
[2020-03-08] MEDS: CLOPIDOGREL 75 MG TABLET PO SCH (08:08)
[2020-03-08] MEDS: METFORMIN HCL 500 MG TAB PO SCH ×2 (08:08→17:12)
[2020-03-08] MEDS: Enoxaparin 120 MG/0.8 ML SYR SQ SCH ×2 (08:09→20:19)
[2020-03-08] MEDS ORDERED: HOME MED 1 EA UNK (Lisinopril [Zestril] 40 MG) PO SCH (09:00)
--- NOTE | 2020-03-08 09:09 | P.PN ---
Subjective Date of Service: 03/08/20 Subjective: No new changes (didn't sleep well last night. Breathing comfortably on 2L NC) Review of Systems 10-point ROS is otherwise unremarkable Physical Examination - Vital Signs Temperature: 97.4 F Blood Pressure: 144/81 Pulse: 79 Respirations: 20 Pulse Ox (%): 95 - Physical Exam General: Alert, In no apparent distress, Obese HEENT: EOMI, Sclerae nonicteric Neck: Supple Respiratory: Diminished (right base), Expiratory wheezes (mild) Cardiovascular: No edema, Regular rate/rhythm, Normal S1 S2 Gastrointestinal: Soft and benign, No tenderness Musculoskeletal: No tenderness Integumentary: No rashes Neurological: Normal speech, Normal affect Assessment & Plan Physician Review Additional Text: Acute hypoxic respiratory failure Shortness of Breath, right PE CAD HTN COPD HLD DM Possible sinus node dysfunction s/p Pacemeker CHF possibly diastolic Obesity Smoker Acute hypoxic respiratory failure in setting of right PE -no expansion/worsening of PE seen on CT -patient requires oxygen supplementation, likely combo of PE, obesity hypoventilation syndrome, likely BRIDGET, noncompliance -homeless, patient states he will not fill eliquis due to cost, so started him on Lovenox and bridge to Coumadin -wheeze on exam today, long h/o smoking, will give prednisone - pt refuses IV or high doses of steroids -5mg daily, check INR -would like benefit from CPAP as well, but unable to afford / homeless CAD, HTN -continue home meds COPD - continue home meds HLD - continue home meds DM - SSI, continue home meds CHF - does not appear fluid overloaded Dispo: pt is homeless, reports can't afford any anticoagulation. Coumadin is probably the cheapest, will have to bridge him Time Spent Managing Pts Care (In Minutes): 35
[2020-03-08] MEDS: WARFARIN SODIUM 5 MG TAB PO SCH (17:12)
[2020-03-08 20:34] VITALS: O2SAT 95
[2020-03-09 06:07] LABS: Protime INR 1.08
[2020-03-09] MEDS: INSULIN -REGULAR HUMAN 50 UNIT/0.5 ML ML SQ SCH (07:30)
[2020-03-09] MEDS: METFORMIN HCL 500 MG TAB PO SCH (08:30)
[2020-03-09] MEDS: predniSONE 20 MG TAB PO SCH (08:30)
[2020-03-09] MEDS: lisinopriL 20 MG TAB PO SCH (08:30)
[2020-03-09] MEDS: ATORVASTATIN 40 MG TAB PO SCH (08:30)
[2020-03-09] MEDS: FUROSEMIDE 40 MG TABLET PO SCH (08:30)
[2020-03-09] MEDS: CLOPIDOGREL 75 MG TABLET PO SCH (08:30)
[2020-03-09] MEDS: Enoxaparin 120 MG/0.8 ML SYR SQ SCH (08:31)
[2020-03-09 08:32] VITALS: TEMP 97.1
[2020-03-09 08:33] VITALS: BP 135/79
--- NOTE | 2020-03-09 12:58 | P.DS ---
Admission Date: 03/07/20 Discharge Date: 03/09/20 Disposition: AMA-LEFT AGAINST MEDICAL ADVIC Discharge Condition: FAIR Procedures: CTA 03/07: FINDINGS: Thoracic aorta is normal in course and caliber without aneurysm or dissection. There are filling defects within proximal branches of the right lower lobe pulmonary artery. Pulmonary arteries are somewhat poorly opacified. Evaluation of lungs is limited by motion. The heart is enlarged. There is a left-sided dual-chamber pacemaker. There is no pericardial effusion. Intrathoracic lymph nodes are not enlarged. There is no pleural effusion, pleural thickening or pneumothorax. Central airways are patent. There is no focal consolidation. In the upper abdomen, liver is fatty in attenuation. There are no acute osseous findings. No suspicious bony lesions. IMPRESSION: No aortic dissection or aneurysm. Right lower lobe pulmonary emboli without evidence of right heart strain. No pneumonia Problem List Acute hypoxic respiratory failure Shortness of Breath, right PE CAD HTN COPD HLD DM Possible sinus node dysfunction s/p Pacemeker CHF possibly diastolic Obesity Current Smoker Brief History of Present Illness: Patient with known right PE recently admitted from 03/03-03/04, presents with progressively worsening shortness of breath. PMH: HTN, HLD, CAD, COPD, GERD, morbidly obese. Patient denies chest pain. He was noted to be hypoxic in the 80s on room air in the ER. No fevers, no chills. He also states he never filled the eliquis, reporting that he could not afford it, even though he was given a free coupon and instructed on how to use it prior to his last discharge. Labwork was rather unremarkable except for an ABG: PO2 60.1, pCO2 55.3 - likely in setting of PE and chronic COPD. A CTA was obtained, with no new changes, no expansion of the known PE Hospital Course: Patient was brought into the hospital for further management and evaluation. He reported feeling better after being placed on 2 L nasal cannula. A long discussion was had between myself and the patient regarding compliance and the importance of medications. Unfortunately, he stated that he could not afford anymore medications, especially Eliquis, as he is uninsured. On further questioning, patient stated he never filled the the prescription, nor did he ever call to use the coupon for free 30 day supply. He states he does not have a PCP and would not be able to afford further visits to maintain a free Eliquis prescription. I also had a long discussion with social workers and case management and unfortunately there were no other options beyond the coupon for a DOAC and the current plan of coumadin. After discussion, the patient decided to proceed with Coumadin treatment. He was told there is a clinic nearby could be relatively cheap (~5 dollars or so for labs). It was explained to him that he would need to be in the hospital for several days to be bridged to Coumadin. On the morning of 03/09/2020, i.e. reiterated the bridging plan with the patient, who then became angry and upset. He stated he did not want to stay in the hospital any longer. I explained to him the risks (even ) if he were to leave the hospital without any anticoagulation. Despite the warnings for new and/or worsening PE, stroke, myocardial infarction, patient decided to leave the hospital against medical advise. I asked him if there was a PCP that I could contact for followup, and he stated he did not have one. I told him about a local clinic that may be able to help him out, however he stated he was not going to go. He then stated he had some insurance/coverage/benefits from [facility], and stated he would go over there and get "set up" with what he needs. I again, reiterated the risks of leaving the hospital against medical advice, especially with a subacute PE. He stated "I know the risks" and he would "let nature take its course". He expressed understanding that he may have a new clot, PE, stroke, and/or if he left without anticoagulation. He refused to stay in the hospital to be bridged to Coumadin. I advised him to at least call and use the free Eliquis coupon for the next month until he checks his options elsewhere. He stated he hated this hospital and never wants to come back. Vital Signs/Physical Exam: Temp Pulse Resp BP Pulse Ox 97.1 F 89 18 135/79 98 03/09/20 08:00 03/09/20 08:30 03/09/20 08:00 03/09/20 08:30 03/09/20 08:00 General: Alert, In no apparent distress HEENT: Mucous membr. moist/pink, Sclerae nonicteric Respiratory: Clear to auscultation bilaterally, Diminished, Other (on 2L NC) Cardiovascular: No edema, Regular rate/rhythm, Normal S1 S2 Gastrointestinal: Soft and benign, Non-distended, No tenderness Musculoskeletal: No tenderness Integumentary: No rashes Neurological: Normal speech, Normal strength at 5/5 x4 extr Laboratory Data at Discharge: WBC 8.3 K/uL (4.3-10.9) 03/08/20 05:31 Hgb 14.2 g/dL (13.6-17.9) 03/08/20 05:31 Hct 44.3 % (39.6-49.0) 03/08/20 05:31 Plt Count 220 K/uL (152-406) 03/08/20 05:31 PT 12.7 SECONDS (9.5-12.5) H 03/09/20 05:38 INR 1.08 03/09/20 05:38 Sodium 140 mmol/L (136-145) 03/08/20 05:31 Potassium 4.7 mmol/L (3.5-5.1) 03/08/20 05:31 BUN 12 mg/dL (7-18) 03/08/20 05:31 Creatinine 0.81 mg/dL (0.55-1.3) 03/08/20 05:31 Glucose 154 mg/dL (74-106) H 03/08/20 05:31 Magnesium 1.9 mg/dL (1.8-2.4) 03/07/20 04:35 Total Bilirubin 0.2 mg/dL (0.2-1.0) 03/08/20 05:31 AST 38 U/L (15-37) H 03/08/20 05:31 ALT 115 U/L (12-78) H 03/08/20 05:31 Alkaline Phosphatase 57 U/L (45-117) 03/08/20 05:31 Home Medications: Atorvastatin Calcium 40 mg PO DAILY 03/07/20 Clopidogrel Bisulfate [Plavix] 75 mg PO DAILY 03/07/20 Furosemide 1.5 tab PO DAILY 03/07/20 Lisinopril [Zestril] 40 mg PO DAILY 03/07/20 Metformin HCl [Glucophage] 500 mg PO BIDWM 03/07/20 Nitroglycerin 0.4 mg SL PRN PRN 09/04/20 Patient Discharge Instructions: Patient left AMA. Advised on local clinics available to him. Advised to at least fill the free Eliquis via coupon for the next month. Time spent managing pt's care (in minutes): 35
--- NOTE | 2020-03-11 09:12 | ECHO ---
HEIGHT: 5 ft 6 in WEIGHT: 273 lb 1.6 oz DATE OF STUDY: 03/07/[address]: Triston Donald MD 2-DIMENSIONAL: YES M.MODE: YES DOPPLER: YES COLOR FLOW: YES TDS: NO PORTABLE: NO DEFINITY: NO BUBBLE STUDY: NO DIAGNOSIS: HYPOXIA CARDIAC HISTORY: CATHERIZATION: NO SURGERY: NO PROSTHETIC VALVE: NO PACEMAKER: YES MEASUREMENTS (cm) DIASTOLIC (NORMALS) SYSTOLIC (NORMALS) IVSd 1.2 (0.6-1.2) LA Diam 3.8 (1.9-4.0) LVEF 63% LVIDd 5.1 (3.5-5.7) LVIDs 3.3 (2.0-3.5) %FS 35% LVPWd 1.2 (0.6-1.2) Ao Diam 2.8 (2.0-3.7) 2 DIMENSIONAL ASSESSMENT: RIGHT ATRIUM: NORMAL LEFT ATRIUM: NORMAL RIGHT VENTRICLE: NORMAL LEFT VENTRICLE: NORMAL TRICUSPID VALVE: NORMAL MITRAL VALVE: NORMAL PULMONIC VALVE: NORMAL AORTIC VALVE: NORMAL PERICARDIAL EFFUSION: NONE AORTIC ROOT: NORMAL LEFT VENTRICULAR WALL MOTION: NORMAL DOPPLER/COLOR FLOW: NORMAL COMMENTS: AORTIC SCLEROSIS WITH NO STENOSIS. NORMAL LEFT VENTRICULAR SIZE AND FUNCTION. NO WALL MOTION ABNORMALITY. NO EFFUSION. TECHNOLOGIST: Shruthi IBARRA
== END 2020-03-09 11:18 | disposition left against medical advice (07) | DRG 175 ==
LOC: ER 04:30 → ERHOLD 07:52 → OBSVTOIN 07:52 → 2ND 09:06
PROVIDERS: ADMIT Hospitalist; ATTEND Hospitalist
DX: I26.99 Other pulmonary embolism without acute cor pulmonale (principal); J96.01 Acute respiratory failure with hypoxia; Z68.41 Body mass index [BMI] 40.0-44.9, adult; E66.2 Morbid (severe) obesity with alveolar hypoventilation; E78.5 Hyperlipidemia, unspecified; E11.9 Type 2 diabetes mellitus without complications; I49.5 Sick sinus syndrome; I25.2 Old myocardial infarction; F17.200 Nicotine dependence, unspecified, uncomplicated; I10 Essential (primary) hypertension; I25.10 Atherosclerotic heart disease of native coronary artery without angina pectoris; J44.9 Chronic obstructive pulmonary disease, unspecified; K21.9 Gastro-esophageal reflux disease without esophagitis; Z88.1 Allergy status to other antibiotic agents; Z88.8 Allergy status to other drugs, medicaments and biological substances; Z53.29 Procedure and treatment not carried out because of patient's decision for other reasons; Z79.84 Long term (current) use of oral hypoglycemic drugs; Z79.02 Long term (current) use of antithrombotics/antiplatelets; Z79.899 Other long term (current) drug therapy; Z59.0 Homelessness; Z95.0 Presence of cardiac pacemaker; Z79.82 Long term (current) use of aspirin; Z91.19 Patient's noncompliance with other medical treatment and regimen; Z20.828 Contact with and (suspected) exposure to other viral communicable diseases
CPT/HCPCS: 36415; 71045; 71275; 80048; 80053; 80076; 81003; 81015; 82805; 82947; 83735; 83880; 84484; 85025; 85379; 85610; 93005; 93306; 94760; 96374; 96375; 99285; J1650; J2405; J7512; Q9967; U0002

== ENCOUNTER 2020-05-05 12:37 | Inpatient (IN) | payer OTHER ==
--- OUTSIDE RECORDS SUMMARY | 2020-05-05 12:40 | XMS REPORT | Clinical Summary ---
:1965 Author Organization [facility] Address [address] [place] [address] Care Team Providers Name Role Phone Pcp [...] due to sick sinus syndrome (HCC) ; Timoeto Shipley BRIDGET (obstruc tive sleep apnea); MD Ely Morbid obesity (HCC); Hypoxia; Chronic bronchi tis, unspecified chronic bronchitis type (HCC); Type 2 diabetes mellitus without complication, without long-term current use of insulin (HCC); Homeless 02/04/2020 Travel 02/04/2020 Documentation Internal Medicine Ortega, Oriana Reilly MD 02/03/2020 Lab Requisition Lab after 05/05/2019 Social History Tobacco Use Types Packs/Day Years [...] Assigned at Date Recorded Not on file Last Filed Vital Signs Vital Sign Reading Time Taken Comments Blood Pressure 146/74 02/06/2020 11:21 AM CDT Pulse 80 02/06/2020 11:21 AM CDT Temperature 37.1 C (98.7 F) 02/06/2020 11:21 AM CDT Respiratory Rate 18 02/06/2020 11:21 AM CDT Oxygen Saturation 94% 02/06/2020 11:21 AM CDT Inhaled Oxygen Concentration - - Weight 120.9 kg (266 lb 9.6 oz) 02/05/2020 6:35 AM CDT Height 167.6 cm (5' 6") 02/04/2020 10:00 PM CDT Body Mass Index 43.03 02/04/2020 10:00 PM CDT Plan of Treatment Health Maintenance Due Date Last Done Comments COLON CANCER SCREENING COLONOSCOPY 1965 DIABETIC EYE EXAM 09/07/1975 DIABETIC FOOT EXAM 09/07/1975 URINE MICROALBUMIN 09/07/1975 INFLUENZA VACCINE (#1) 2020 04/20/2019, 09/19/2013 HEMOGLOBIN A1C 08/07/2020 02/05/2020 LIPID PANEL 02/04/2023 02/05/2020, 07/17/2019 Implants Implanted 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 Device Identifier Shelf Model / Expiration Serial / Date Lot Lead Pacemkr Cecily [place] 52x1 [id number] - [id number] PACEMAKER/I [employer]:CARD [id number] 09/27/2021 [id number] / Implanted: Qty: 1 on 02/05/2020 by Prem Herron MD at [facility] CD CHAMBER RHY:DISEASE MGT [id number] / DEVICE Description:Ventricular Lead Lead Pacemkr Cecily [place] [id number] - [id number] PACEMAKER/IC D [employer]:CARD [id number] 08/28/2021 [id number] / Implanted: Qty: 1 on 02/05/2020 by Prem Herron MD at [facility] CHAMBER DEVICE RHY:DISEASE MGT [id number] / Description:Atrial Lead Pacemkr Minorca Xtdr Mri Ipg [id number] - [id number] PACEMAKER/ICD [employer]:CARD [id number] 05/31/2021 [id number] / Implanted: Qty: 1 on 02/05/2020 by Prem Herron MD at [facility] CHAMBER DEVICE RHY:PACING SYS [id number] / Description:Chest Procedures Procedure Name Priority Date/Time Associated Diagnosis [...] results section. AICD UPGRADE - SINGLE 02/05/2020 12:29 Syncope, unspec ified TO DUAL CHAMBER PM [...] 380 ms QTC Calculation(Bazett) 392 ms P Basin 51 degrees R Basin 57 degrees T Basin -21 degrees Normal sinus rhythm Incomplete left [...] i n the results section . after 05/05/2019 Results ARRYTHMIA IMPLANT REPORT - SCAN (02/20/2020 [...] 2D Echo W/Doppler(CW/PW/Color) (02/06/2020 10:08 AM CDT) Pathologist Sig nature Ejection Fraction [facility] Specimen Narrative Performed At Transthoracic Echocardiography Report (T TE) [facility] Demographics Patient Name JUAN MIGUEL VALLE Date of Study 02/06/2020 RU Gender Male Visit Number [id number] Race Unknown Room Number 636 Number Date of 1965 Referring Fredrick Forrest Physician Age 54 year(s) 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 LVEF by Du's meth od of disk assessment is normal (55-60%) . [...] root size (SInus of Valsalva diameter) is norm al . Pericardium No pericardial effusion is visualized. [...] Study 02/06/2020 RU Gender Male Visit Number [id number] Race Unknown Room Num [place] [id number] Number Date of 1965 Justin Forrest Physicia n Age 54 year(s) Sonograp her ROSSY Kingston, RDCS,RVT,RDMS Boat Pilot Anthony Lezama MD RDCS Physicia n Procedure Type of Study TTE procedure:2DECHO W NANCIEPLE R(CW/PW/COLOR) (KERLINE) Indications:Acute Chest Pain/ Suspected CAD. [...] LVESV Du's:72.41 ml LVEDVI: 76 ml/m^2 LVEF Ud's: 58 % LVESVI: 32 ml/m^2 LVOT Diameter: [...] TR Gradient: 23.87 mmHg Performing Organization Address City/State/Zipcode Phone Number [facility] POC-Glucose meter (02/06/2020 7:12 AM CDT)Only the most recent of3 results within the time period is included. POC-Glucose Meter 131 (H)Comment: 70 - 110 mg/dL [facility] : TESTED AT [address], [address]: Dry Heat Room Attendant/Technic oswaldo ID = [id number] for KENDRICK HAN Specimen Blood Performing Organization Address [facility] Cent[facility]ode Phone Number [address] [address] CENTER CBC with platelet count + automated diff (02/06/2020 4:03 AM CDT)Only the most recent of2 resultswithin the time period is included. Pathologist Sig nature WBC 8.1 3.5 - 10.5 [facility] K/L [facility] RBC 5.09 4.63 - 6.08 [facility] M/L [facility] Hemoglobin 13.5 (L) 13.7 - 17.5 [facility] GM/DL [facility] Hematocrit 45.1 40.1 - 51.0 % [facility] MCV 88.6 79.0 - 92.2 fL [facility] MCH 26.5 25.7 - 32.2 pg [facility] MCHC 29.9 (L) 32.3 - 36.5 [facility] GM/DL [facility] RDW 15.9 (H) 11.6 - 14.4 % [facility] Platelets 265 150 - 450 K/CU [facility] MM [facility] MPV 11.2 9.4 - 12.4 fL [facility] nRBC 0 0 - 0 /100 WBC [facility] % Neutros 65 % [facility] % Lymphs 24 % [facility] % Monos 9 % [facility] % Eos 1 % [facility] % Baso 0 % [facility] # Neutros 5.27 1.78 - 5.38 [facility] # Lymphs 1.96 1.32 - 3.57 [facility] # Monos 0.69 0.30 - 0.82 [facility] # Eos 0.08 0.04 - 0.54 [facility] # Baso 0.03 0.01 - 0.08 [facility] Immature 0 0 - 1 % [facility] Granulocytes-Relative [facility] Specimen Blood Performing Organization Address City/State/Zipcode Phone Number [facility] [address] [place] [address] CENTER Magnesium (02/06/2020 4:02 AM CDT)Only the most recent of2 resultswithin the time period is included. Pathologist Sig nature Magnesium 1.9Comment: Specimen 1.6 - 2.6 mg/dL [facility] slightly hemolyFormerly [facility] Specimen Blood Narrative Performed At Dry Heat Room Attendant ID - NELLY Loredo [facility] Performing Organization Address [facility]/Zipcode Phone Number [facility] [address] [place] [address] CENTER Basic metabolic panel (02/06/2020 4:02 AM CDT)Only the most recent of2 results within the time period is included. Sodium 137 136 - 145 meq/L [facility] Potassium 4.4Comment: Specimen 3.5 - 5.1 meq/L [facility] hemolyFormerly [facility] Chloride 101 98 - 107 meq/L [facility] CO2 28 22 - 29 meq/L [facility] BUN 13 7 - 21 mg/dL [facility] Creatinine 0.73Comment: 0.57 - 1.25 [facility] Specimen slightly mg/dL [facility] hemolyzed [place] Glucose 124 (H) 70 - 105 mg/dL [facility] Calcium 8.2 (L) 8.4 - 10.2 [facility] mg/dL [facility] EGFR 112Comment: mL/min/1.73 sq [facility] ESTIMATED GFR IS NOT [facility] ACCURATE [place] CREATININE CLEARANCE IN PREDICTING GLOMERULAR FILTRATION RATE. ESTIMATED GFR IS NOT APPLICABLE FOR DIALYSIS PATIENTS. Specimen Blood Narrative Performed At Dry Heat Room Attendant ID - NELLY Loredo [facility] Performing Organization Address City/State/Zipcode Phone Number [facility] [address] [place] [address] CENTER XR chest 1 view portable / bedside (02/05/2020 5:51 PM CDT)Only the most recent of2 resultswithin the time period is included. Specimen Narrative Performed At FINAL REPORT GE RIS TECHNIQUE: Frontal view of the chest. INDICATION: [...] Merritt Vincent MD Report Verified Date/Time: 02/05/2020 18:08:29 Reading Location: [address] Reading Room Procedure Note Interface, External Ris [...] Verified Date/Time: 02/05/2020 1 8:08:29 Reading Location: [address] Reading Room Performing Organization Address City/State/Zipcode Phone Number [facility] Blood gas, arterial (02/05/2020 11:36 AM CDT) Pathologist Sig nature pH, Arterial 7.42 7.35 - 7.45 [facility] pCO2, Arterial 48 (H) 35 - 45 mmHg [facility] pO2, Arterial 70 (L) 80 - 90 mmHg [facility] O2 Sat, Arterial 94.8 (L) 96.0 - 97.0 % [facility] HCO3, Arterial 31 (H) 21 - 29 mmol/L [facility] Base Excess, Arterial 5.3 (H) -2.0 - 3.0 [facility] mmol/L [facility] Patient Temperature 36.3 C [facility] FIO2 21.0 % [facility] Specimen Blood, Arterial Performing Organization Address City/[facility] Centercode Phone Number [address] [address] CENTER ABORH, manual (02/05/2020 8:59 AM CDT) Pathologist Sig nature ABO Grouping AB [facility] Rh Factor POS [facility] Specimen Blood Performing Organization Address [facility] Centercode Phone Number [address] [address] Type and screen, automated (02/05/2020 8:30 AM CDT) Pathologist Sig nature ABO/RH AUTOMATED AB POSITIVE [facility] Ab Scrn NEGATIVE [facility] Specimen Blood Performing Organization Address [facility] Phone Number [address] [address] ECG 12 lead (02/05/2020 6:40 AM CDT) Specimen Narrative Performed At Ventricular Rate 64 BPM GE MUSE Atrial Rate 64 BPM P-R Interval 152 ms QRS Duration 106 ms Q-T Interval 380 ms QTC Calculation(Bazett) 392 ms P Basin 51 degrees R Basin 57 degrees T Basin -21 degrees Normal sinus rhythm Incomplete left bundle branch block Nonspecific ST and T wave abnormality Abnormal ECG No previous ECGs available Confirmed by MD JHON, BLANQUITA ([id number]) on 02/05/2020 1 :06:39 PM Procedure Note Interface, External Ris In - 02/05/2020 1:06 PM CDT Ventricular Rate 64 BPM Atrial Rate 64 BPM P-R Interval 152 ms QRS Duration 106 ms Q-T Interval 380 ms QTC Calculation(Bazett) 392 ms P Basin 51 degrees R Basin 57 degrees T Basin -21 degrees Normal sinus rhythm Incomplete left bundle branch block Nonspecific ST and T wave abnormality Abnormal ECG No previous ECGs available Confirmed by MD JHON, BLANQUITA ([id number]) on 02/05/2020 1:06:39 PM Performing Organization Address City/[facility] Centercode Phone Number [facility] Hemoglobin A1c (02/05/2020 1:23 AM CDT) Pathologist Sig nature Hemoglobin A1C 8.3 (H) 4.3 - 6.1 % [facility] Specimen Blood Performing Organization Address [facility] Centercomd Phone Number [facility] [address] [place] [address] [place] Blood gas, venous (02/05/2020 1:23 AM CDT) Pathologist Sig nature pH, Ucco 7.39 7.32 - 7.42 [facility] pCO2, Cuco 52 (H) 41 - 51 mmHg [facility] pO2, Cuco 147 (H) 25 - 40 mmHg [facility] O2 Sat, Cuco 98.8 (H) 40.0 - 70.0 % [facility] HCO3, Cuco 30 (H) 21 - 29 mmol/L [facility] Base Excess, Cuco 4.3 (H) -2.0 - 3.0 [facility] mmol/L [facility] Patient Temperature 37.0 C [facility] FIO2 21.0 % [facility] Specimen Blood Performing Organization Address [facility] Centercode Phone Number [facility] [address] [place] [address] [place] Lipid panel (02/05/2020 1:22 AM CDT) Pathologist Sig nature Triglycerides 119 mg/dL [facility] DICAL [place] Cholesterol 192 mg/dL [facility] [place] HDL 34 mg/dL [facility] LDL Calculated 134 mg/dL [facility] Specimen Blood Narrative Performed At Triglyceride Reference Range: [facility] Low Risk <150 Borderline 150-199 High Risk 200-499 Very High Risk >=500 Cholesterol Reference Range: Low Risk <200 Borderline 200-239 High Risk >240 HDL Cholesterol Reference Range: Low Risk >=60 High Risk <40 LDL Cholesterol Reference Range: Optimal <100 Near Optimal 100-129 Borderline 130-159 High 160-189 Very High >=190 Dry Heat Room Attendant ID - NELLY Gertrude Performing Organization Address City/State/Zipcode Phone Number [facility] [address] [place] [address] CENTER SARS-CoV2/RT-PCR ([facility]) (02/03/2020 8:16 PM CDT) SARS-COV2/RT-PCR Negative Not Detected, [facility] Negative, See [facility] external report CENTER for linked test SARS-COV-2 [facility] PERFORMING LAB [facility] Specimen Other - Nasopharyngeal wall structure (b yinka structure) Narrative Performed At Negative result for this test determines that [facility] SARS-CoV-2 RNA was not present in the [...] the Act. Fact Sheet for Healthcare Providers: https://www.DooB[employer]/sites/default/files/pro duct/documents/Fact_Sheet_HC_Providers_Lyra_SA RS-CoV-2.pdf Fact Sheet for Healthcare Patients: https://www.[employer]oo[employer]/sites/default/files/pro duct/documents/Fact_Sheet_Patients_Lyra_SARS-C oV-2.pdf Performing Laboratory: [place] [address] Performing Organization Address City/State/Zipcode [place] [address] CENTER after 05/05/2019 Advance Directives For more information, please contact: [phone] Code Status Date Activated Date Inactivated Comments Full Code 02/04/2020 11:59 PM 02/06/2020 5:54 PM This code status was determined by: Patient
--- OUTSIDE RECORDS SUMMARY | 2020-05-05 12:41 | XMS REPORT | Continuity of Care Document ---
:1965 Author Organization [facility] t Address [address] [place] [address] Care Team Providers Name Role Phone Pcp Primary Care Physician Unavailable Funes Attending Clinician Juana Wilde MD Attending Clinician Ely Shipley MD Attending Clinician Kofi Elam MD Attending Clinician [...] 00 Center Morbid Morbid Disease Active [facility] obesity obesity 02-04 - with BMI with BMI 00:00: Medica l of of 00 Center 40.0-44.9, 40.0-44.9, adult adult Syncope Syncope Disease Active [facility] sick sinus sick sinus 00:00: Me dical syndrome syndrome 00 Center Sick sinus Sick sinus Disease Active [facility] syndrome [facility] - due to SA due to SA 00:00: Medi ajith node node 00 [place] dysfunctio dysfunctio n n Homeless Homeless Disease Active [facility] 02[facility]03 [facility] - 00:00: Medical 00 Center Allergies, Adverse Reactions, Alerts This patient has no known allergies or adverse reactions. Social History Social Habit Start Date Stop Date Quantity Comments Source History [facility] - Alcohol Std Drinks Medica Center History [facility] - Alcohol Binge Medical Olya ter Sex Assigned At [facility] Alcohol intake 2020-02-06 2020-02-06 Current [facility] es - 00:00:00 00:00:00 non-drinker of Medical Ce nter alcohol (finding) History [facility] 2020-02-04 2020-02-[address] [facility] - Alcohol Frequency 00:00:00 00:00:[address] [facility] Smoking Status Start Date Stop Date Source Current every day smoker 2020-02-06 00:00:00 [facility] Medications Ordered Filled Start Stop Current Ordering [...] Take [address] (MINOCIN,DY 02-05 capsule Luke s - NACIN) 100 00:00: 23:59 (100 mg Med ical MG capsule 00 :00 total) by Cent er mouth every 12 (twelve) hours for 5 days. Vital Signs Vital Name Observation Time Observation Value Comments Source Systolic blood 2020-02-06 11:21:00 146 mm[Hg] [facility] Diastolic blood 2020-02-06 11:21:00 74 mm[Hg] [facility] Heart rate 2020-02-06 11:21:00 80 /min [facility] Body temperature 2020-02-06 11:21:00 37.06 Marianne [facility] Respiratory rate 2020-02-06 11:21:00 18 /min [facility] Oxygen saturation in 2020-02-06 11:21:00 94 /min [facility] Arterial blood by Medical Ce nter Pulse oximetry Body weight 2020-02-05 06:35:00 120.929 kg [facility] BMI 2020-02-05 06:35:00 43.03 kg/m2 [facility] Body height 2020-02-04 22:00:00 167.6 cm [facility] Procedures Procedure Date / Time Performed Performing Clinician Elo rodriguez ARRYTHMIA IMPLANT REPORT 2020-02-20 13:41:29 Provider, Default [facility] - SCAN Scanning [facility] RHYTHM STRIP - SCAN 2020-02-08 09:00:23 Provider, Default [facility] ARRYTHMIA IMPLANT REPORT 2020-02-08 09:00:19 Provider, Default [facility] - SCAN Scanning [facility] CARDIAC CATH REPORT - 2020-02-08 09:00:17 Provider, Default [facility] TRANSFUSION SERVICE 2020-02-06 18:02:59 Provider, Default [facility] REPORT [facility] 2D ECHO W/ DOPPLER 2020-02-06 10:08:[address] [facility] (CW/PW/COLOR) [facility] POCT-GLUCOSE METER 2020-02-06 07:12:00 Timoteo Shipley [facility] CBC W/PLT COUNT & AUTO 2020-02-06 04:03:00 Lon [facility] DIFFERENTIAL [facility] BASIC METABOLIC PANEL 2020-02-06 04:02:00 Fredrick Forrest [facility] (7) [facility] MAGNESIUM 2020-02-06 04:02:[address] [facility] POCT-GLUCOSE METER 2020-02-05 22:25:00 Timoteo Shipley [facility] XR CHEST 1 VIEW 2020-02-05 17:51:00 Eduardo Chavez [facility] - PORTABLE/BEDSIDE [facility] POCT-GLUCOSE METER 2020-02-05 16:47:00 Timoteo Shipley [facility] AICD UPGRADE - SINGLE TO 2020-02-05 12:29:00 Prem Elam [facility] DUAL CHAMBER SYSTEM Medical Cent er BLOOD GAS, ARTERIAL 2020-02-05 11:36:00 Dulce Wilde [facility] ABORH, MANUAL 2020-02-05 08:59:00 Tiffanie Conner [facility] TYPE AND SCREEN, 2020-02-05 08:30:00 Eduardo Chavez [facility] - AUTOMATED [facility] XR CHEST 1 VIEW 2020-02-05 06:55:00 Dulce Wilde [facility] s - PORTABLE/BEDSIDE [facility] ECG 12-LEAD 2020-02-05 06:40:35 Unknown, Hl7 Doctor [facility] HEMOGLOBIN A1C 2020-02-05 01:23:[address] [facility] BLOOD GAS, VENOUS 2020-02-05 01:23:00 Lon Fredrick HAIRSTON S t [facility] CBC W/PLT COUNT & AUTO 2020-02-05 01:23:00 Lon [facility] DIFFERENTIAL [facility] BASIC METABOLIC PANEL 2020-02-05 01:22:[address] [facility] - (7) [facility] MAGNESIUM 2020-02-05 01:22:00 Lon Fredrick [facility] LIPID PANEL 2020-02-05 01:22:00 Lon Fredrick [facility] SARS-COV2/RT-PCR ([facility] & 2020-02-03 20:16:00 [facility] LABS) [facility] Plan of Care Planned Activity Planned Date Details Comments Source Future Scheduled 2023-02-[address] [facility] - Test 00:00:00 (procedure) [code = Medical Center 71810857] Future Scheduled 2020-08-[address] [facility] - Test 00:00:[address] [facility] (procedure) [code = 65137062] Future Scheduled 2020-03-[address] [facility] - Test 00:00:00 (#1) [code = [facility] INFLUENZA VACCINE (#1)] Future Scheduled 1975-09-[address] DIABETIC EYE EXAM [facility] - Test 00:00:00 [code = DIABETIC EYE Medical Center EXAM] Future Scheduled 1975-09-[address] [facility] - Test 00:00:00 examination Medical Center (regime/therapy) [code = 149219969] Future Scheduled 1975-09-07 Urine screening for [facility] - Test 00:00:00 protein (procedure) [facility] [code = 245103433] Future Scheduled [address] [facility] - Test 00:00:00 malignant neoplasm of Medica l Center colon (procedure) [code = 469228447] Encounters Start End Encounter Admission Attending Care Care Encounter Source Date/Time Date/Time Type Type Clinicians Facility Department ID 2020-04-28 2020-04-28 Telephone [facility] [id number] 00:00:00 00:00:00 Mayela Escamilla [id number] [place] [id number] [place] [id number] [facility] Building Results Test Description Test Time Test Comments Results Result [facility] michael Comments 2D Echo Ejection FractionSLEH MARIKA Tang W/Doppler(CW/PW/C 5 ECHO [facility] - Vt dical zach) 18:17:02 [facility] CPACSInterface, External Ris In - 02/06/2020 6:17 PM CDTTransthoracic Echocardiography Report (TTE) Demographics Patient Name SAMMY VALLE Date of Study 02/06/2020 RU Gender Male Visit Number [id number] Race Unknown Room Number 636 Number Date of 1965 Referring Fredrick Forrest Physician Age 54 year(s) 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 [address] [facility] 1538) [facility], 770 30: Discount Clerk/Techni vanita ID = [id number] for KENDRICK HAN Lab Interpretation (test code = Abnormal 98418-5) [facility] [id number] 07:29:00 Test Item Value Reference Range Interpretation Comments POC-GLUCOSE METER 131 mg/dL 70-110 H : TESTED A T [facility] [address] (BEAKER) (test code = BERTNE R [facility], 1538) [address]: Discount Clerk/Techni vanita ID = [id number] for PO VIELKAKENDRICK Basic metabolic [id number] 04:43:00 Test Item Value Reference Range Interpretation Comments Sodium (test code = 137 meq/L 603-410 4820-2) Potassium (test code = 4.4 meq/L 3.5-5.1 Speci men slightly 2823-3) hemolyzed Chloride (test code = 101 meq/L 98-107 2075-0) CO2 (test code = 28 meq/L 22-29 2027-9) BUN (test code = 13 mg/dL 7- 3094-0) Creatinine (test code 0.73 mg/dL 0.57-1.25 Specim en slightly = 2160-0) hemolyzed Glucose (test code = 124 mg/dL 70-105 H 2345-7) Calcium (test code = 8.2 mg/dL 8.4-10.2 L 24639-7) EGFR (test code = 112 mL/min/1.73 [place] [address]-1) NOT ACCURATE CREATININE CLEARANCE IN PREDICTING GLOMERULAR FILTRATION RATE . ESTIMATED GFR I S NOT APPLICABLE FOR DIALYSIS PATIENTS. YOMI (test code = YOMI) Discount Clerk ID - NELLY W Lab Interpretation Abnormal (test code = 10630-8) [facility]00 Test Item Value Reference Range Interpretation Comments Magnesium (test code = 1.9 mg/dL 1.6-2.6 Speci men 41924-4) slightly hemolyzed YOMI (test code = YOMI) Discount Clerk ID - NELLY W Lab Interpretation Normal (test code = 37155-5) [facility] 04:43:00 Test Item Value Reference Range Interpretation Comments MAGNESIUM (BEAKER) 1.9 mg/dL 1.6-2.6 Specimen slightly (test code = 627) hemolyzed Discount Clerk ID - NELLY WBASIC METABOLIC [id number] 04:43:00 Test Item Value Reference Range Interpretation Comments SODIUM (BEAKER) 137 meq/L 136-145 (test code = 381) POTASSIUM (BEAKER) 4.4 meq/L 3.5-5.1 Specimen slightly (test code = 379) hemolyzed CHLORIDE (BEAKER) 101 meq/L 98-107 (test code = 382) CO2 (BEAKER) (test 28 meq/L 22-29 code = 355) BLOOD UREA NITROGEN 13 mg/dL 7-21 (BEAKER) (test code = 354) [...] S NOT APPLICABLE FOR DIALYSIS PATIEN TS. Discount Clerk ID - NELLY WCBC with platelet count + automated [id number] 04:32:00 Test Item Value Reference Range Interpretation [...] 450 K/CU MM MPV (test code = 35717-6) 11.2 fL 9.4-12.4 nRBC (test code = [...] 2801) Lab Interpretation (test code = Abnormal 11701-2) [facility]PLT COUNT & AUTO [id number] 04:32:00 Test Item Value Reference Range Interpretation [...] PERCENT (BEAKER) (test code = 2801) POCT-GLUCOSE [id number] 22:36:00 Test Item Value Reference Range Interpretation Comments POC-GLUCOSE METER 118 mg/dL 70-110 H : TESTED A T [facility] 67[address] (YASMEEN) (test code = EVA Marcum [facility], 1538) [address]: Discount Clerk/Techni vanita ID = [id number] for CA RPIO, RICARDO RAD, CHEST, 1 VIEW, NON [id number] 18:08:00Reason for exam:->Confirm pacemaker lead placementShould this [...] status post pacer placement.. Signed: Merritt Vincent Verified Date/Time: 02/05/2020 18:08:29 Reading Location: [address] Transitional Reading Room XR chest 1 view portable / [id number] 18:08:00 Interface, External Ris In - 02/05/2020 [...] MDReport Verified Date/Time: 02/05/2020 18:08:29 Reading Location: [facility] Transitional Reading Room [facility] [id number] 17:06:00 Test Item Value Reference Range Interpretation Comments POC-GLUCOSE METER 91 mg/dL 70-110 : TESTED A T [facility] [address] (BEAKER) (test code = EVA Marcum [place], 1538) [address]: Discount Clerk/Techni vanita ID = [id number] for JADYN DOMÍNGUEZ ECG 12 [id number] 13:06:41Interface, External Ris In - 02/05/2020 1:06 PM CDTVentricular Rate 64 BPMAtrial Rate 64 BPMP-R Interval 152 msQRS Duration 106 msQ-T Interval 380 msQTC Calculation(Bazett) 392 msP [place] 51 degreesR [place] 57 degreesT [place] -21 degreesNormal sinus rhythmIncomplete left bundle branch blockNonspecific ST and T wave abnormalityAbnormal ECGNo previous ECGs availableConfirmed by MD JHON, BLANQUITA ([id number]) on 02/05/2020 1:06:39 [facility], [id number] 11:49:00 Test Item Value Reference Range Interpretation Comments pH, Arterial (test code = 2744-1) 7.42 7.35-7.45 pCO2, Arterial (test code = 48 35- 45 mmHg H 2019-02) pO2, Arterial (test code = 2703-7) 70 80- 90 mmHg L O2 Sat, Arterial (test code = 94.8 % 96-97 L 2707-6) HCO3, Arterial (test code = 31 mmol/L 21-29 H 1959-) Base Excess, Arterial (test code = 5.3 mmol/L -2-3 H 7) Patient Temperature (test code = 36.3 C 8310-5) FIO2 (test code = 1819) 21 % Lab Interpretation (test code = Abnormal 96541-2) [facility] HospitalBLOOD GAS, [id number] 11:49:00 Test Item Value Reference Range Interpretation [...] (test code = 1819) 21.0 % Hemoglobin [id number] 10:59:00 Test Item Value Reference Range Interpretation Comments Hemoglobin A1C (test code = 4548-4) 8.3 % 4.3-6.1 H Lab Interpretation (test code = Abnormal 82559-1) [facility] HospitalHEMOGLOBIN [id number] 10:59:00 Test Item Value Reference Range Interpretation Comments HEMOGLOBIN A1C (BEAKER) (test code = 8.3 % 4.3-6.1 H 368) ABORH, [id number] 09:54:00 Test Item Value Reference Range Interpretation Comments ABO Grouping (test code = 2588) AB Rh Factor (test code = 2589) POS [facility] HospitalType and screen, [id number] 09:35:00 Test Item Value Reference Range Interpretation Comments ABO/RH AUTOMATED (BEAKER) (test AB POSITIVE code = 2260) Ab Scrn (test code = 890-4) NEGATIVE [facility] HospitalRAD, CHEST, 1 VIEW, NON [id number] 07:14:00 Reason for exam:->hypoxiaShould this be performed at the bedside?->Yes FINAL REPORT RAD, CHEST, 1 VIEW, NON DEPT INDICATION: hypoxia COMPARISON: Prior day's exam FINDINGS: Portable frontal view of the chest. IMPRESSION: Support Lines: None Lungs and pleura: Clear lungs No pneumothorax.Heart and mediastinum: Unremarkable contours.Additional findings: None. Signed: JR Vaughn Robert [facility] Verified Date/Time: 02/05/2020 07:14:51 ReadingLocation: [facility] Radiology Reading Room Blood gas, venous 2020-02-05 02:00:00 Test Item Value Reference Range Interpretation Comments pH, Cuco (test code = 2746-6) 7.39 7.32-7.42 pCO2, Cuco (test code = 755) 52 41- 51 mmHg H pO2, Cuco (test code = 2705-2) 147 25- 40 mmHg H O2 Sat, Cuco (test code = 2711-0) 98.8 % 40-70 H HCO3, Cuco (test code = 00597-3) 30 mmol/L 21-29 H Base Excess, Cuco (test code = 4.3 mmol/L -2-3 H 1927-3) Patient Temperature (test code = 37.0 C 8310-5) FIO2 (test code = 1819) 21 % Lab Interpretation (test code = Abnormal 66992-6) [facility] HospitalBLOOD GAS, [id number] 02:00:00 Test Item Value Reference Range Interpretation [...] (test code = 1819) 21.0 % Lipid [id number] 01:56:00 Test Item Value Reference Range Interpretation Comments Triglycerides (test 119 mg/dL code = 2571-8) Cholesterol (test code 192 mg/dL = 2093-3) HDL (test code = 34 mg/dL 2085-9) LDL Calculated (test 134 mg/dL code = 81021-1) YOMI (test code = YOMI) Triglyceride Reference Range: Low Risk <150 Borderline 150-199 High Risk 200-499 Very High Risk >=500 Cholesterol Reference Range: Low Risk <200 Borderline 200-239 High Risk >240 HDL Cholesterol Reference Range: Low Risk >=60 High Risk <40 LDL Cholesterol Reference Range: Optimal <100 Near Optimal 100-129 Borderline 130-159 High 160-189 Very High >=190 Discount Clerk ID - NELLY Loredo [facility] HospitalMAGNESIUM2020-08-04 01:56:00 Test Item Value Reference Range Interpretation Comments MAGNESIUM (BEAKER) (test code = 1.8 mg/dL 1.6-2.6 627) Discount Clerk ID - NELLY WBASIC METABOLIC [id number] 01:56:00 Test Item Value Reference Range Interpretation [...] S NOT APPLICABLE FOR DIALYSIS PATIEN TS. Discount Clerk ID - NELLY WLIPID [id number] 01:56:00 Test Item Value Reference Range Interpretation [...] Borderline 130-159 High 160-189 Very High >=190 Discount Clerk ID - DONNAWCBC W/PLT COUNT & AUTO [id number] 01:42:00 Test Item Value Reference Range Interpretation [...] PERCENT (BEAKER) (test code = 2801) SARS-CoV2/RT-PCR ([facility])2020-02-04 10:32:00 Test Item Value Reference Range Interpretation Comments SARS-COV2/RT-PCR Negative Not Detected, (test code = Negative, See 40513-5) external report for linked test SARS-COV-2 [facility] KYLIE PERFORMING LAB (test code = 12711-4) YOMI (test code = Negative result for [...] of the Act. Fact Sheet for Healthcare Providers:https://www.Webspy/sites/default/f angelina/product/documents/F act_Sheet_HC_Providers_L rri_XWVI-SsD-1.pdf Fact Sheet for Healthcare Patients:https://www.BitTorrent/sites/default/fi les/product/documents/Fa ct_Sheet_Patients_Lyra_S ARS-CoV-2.pdf Performing Laboratory:[facility]ARS-COV2/RT-PCR ([facility])2020-02-04 10:32:00 Test Item Value Reference Range Interpretation Comments SARS-COV2/RT-PCR (test Negative Not Detected, Negative, code = 0600356) See external report for linked test SARS-COV-[address] [facility] KYLIE (test code = 0221791) Negative result for this test determines that [...] 564(g) of the Act.Fact Sheet for Healthcare Providers:https://www.Bizratings.com/sites/default/files/product/documents/Fact_Shee k_DY_Iqwbnhmzc_Kell_LSQI-TyX-3.pdfFact Sheet for Healthcare Patients:https://www.Allocab.SilkRoad Technology/sites/default/files/product/ documents/Jjma_Ithti_Xukxshaf_Niay_LTAQ-BqF-8.pdfPerforming Laboratory:[facility] [place] [address]
--- OUTSIDE RECORDS SUMMARY | 2020-05-05 12:43 | XMS REPORT | Summary of Care ---
:1965 [address] [facility] - Health Address [address] [place] [address] Care Team Providers Name Role Phone Nic JOSEFINA Primary Care Provider Encounter Details Date Type Department Care Team Description 03/11/[address] [facility] Doctor Unassigned, No [address] [facility] [place] [address] [address] [place] [address] Allergies Active Allergy Reactions Severity Noted Date Comments Azithromycin Swelling High 08/11/2018 Throat swells Metoprolol Other - See comments 07/11/2018 Lowers heart rate too low documented as of this encounter (statuses as of 03/11/2020) Medications Medication Sig Dispensed Refills Start Date [...] as of this encounter (statuses as of 03/11/2020) Active Problems Problem Noted Date BRIDGET (obstructive sleep apnea) 02/18/2020 Morbid obesity with body mass index of 40.0-49.9 07/17 Nonobstructive atherosclerosis of coronary artery 02/2018 Essential hypertension 12/07/2013 HLD (hyperlipidemia) 12/07/2013 Borderline diabetes mellitus 12/07/2013 Obesity (BMI 30-39.9) 12/07/2013 Tobacco abuse 12/07/2013 Atypical chest pain 11/20/2013 documented as of this encounter (statuses as of 03/11/2020) Immunizations Name Administration Dates Next Due Influenza [...] Office Visit Pulmonary Disease Mayela Funes DO [address] [place] [phone] 08/20/2020 Office Visit Cardiology Eunice Chang M D [address] [place] [address] [phone] Health Maintenance Due Date Last Done Comments [...] Name Priority Date/Time Associated Diagnosis Comme nts CONSENT/REFUSAL FOR Routine 03/11/2020 8:32 AM CDT DIAGNOSIS AND TREATMENT documented in this encounter Results Not on filedocumented in this encounter Insurance Payer Benefit Plan Subscriber ID Effective Phone Address Typ e / Group Dates [place] [place] [id number] 2018-08/03 [phone] [facility] [address] [address] [place] [id number] 2019-Prese [phone] [facility] C[facility] nt [address] [place] [address] documented as of this encounter
--- OUTSIDE RECORDS SUMMARY | 2020-05-05 12:44 | XMS REPORT | Summary of Care ---
:1965 Author Organization [facility] Address [address] [place] [id number] Care Team Providers Name Role Phone JOSEFINA Lucero Primary Care Provider Reason for Referral (Routine) Status Reason Specialty Diagnoses / Referred By Referred To Procedures Contact Contact Pending Review Vascular Diagnoses Claudication of both lower extremities Ekta Lucero, Sonography Procedures BILATERAL DUPLEX SCAN OF ARTERY BY VASCULAR LAB [address] [address] (Routine) Status Reason Specialty Diagnoses / Referred By Referred To Procedures Contact Contact New Request Vascular Surgery Diagnoses Claudication of both lower extremities Ekta Lucero, Procedures CONSULT/REFERRAL VASCULAR SURGERY [address] [address] (Routine) Status Reason Specialty Diagnoses / Referred By Referred To Procedures Contact Contact New Request Cardiology Diagnoses Pulmonary embolism, unspecified chronicity, unspecified pulmonary embolism type, unspecified whether acute cor pulmonale present Ekta Lucero FNP Procedures CONSULT/REFERRAL CARDIOLOGY [address] [place] [address] Reason for Visit Reason Comments POST-HOSP Encounter Details Date Type Department Care Team Description 03/20[facility]2020 [facility] [address] [place], [place] [id number] Pulmonary embolism, unspecified chronici ty, unspecified pulmonary embolism type, unspecified whether acute cor pulmonale present (Primary Dx); [facility], [facility] Primary Borderline diabetes mellitus; Clinic Claudication of both lower e xtremities; [address] [place] [address] Allergies Active Allergy Reactions Severity Noted Date Comments Azithromycin Swelling High 08/11/2018 Throat swells Metoprolol Other - See comments 07/11/2018 Lowers heart rate too low documented as of this encounter (statuses as of 03/24/2020) Medications Medication Sig Dispensed Refills Start End Date Status Date albuterol 90 Inhale 2 Puffs 8.5 g [...] by mouth 0 TabIndications: daily. Mixed hyperlipidemia metformin ER 500 mg Take 1 tablet [...] tabletIndications: by mouth 0 Essential daily. hypertension budesonide-formotero Inhale 2 Puffs 10.2 g 11 Active L (SYMBICORT) 2 (two) times 0 160-4.5 daily. mcg/actuation inhalerIndications: Dyspnea on exertion, Cigarette nicotine dependence without complication, Sleep-disordered breathing nitroglycerin 0.[address] 1 tablet 1 Bottle 5 Active sublingual under the 0 tabletIndications: tongue every Chest pain, 5 (five) unspecified type minutes as needed for Chest pain. furosemide 40 mg Take 40 mg by 0 Active tablet mouth daily. apixaban 5 mg Take 1 tablet 60 tablet 11 04/12/20 Ac tive tabletIndications: by mouth 2 0 20 deep vein thrombosis (two) times prevention daily for 30 days. Indications: deep vein thrombosis prevention amLODIPine 10 mg Take 1 tablet 30 tablet 0 04/12/20 Active tabletIndications: by mouth daily 0 20 Single subsegmental for 30 days. pulmonary embolism without acute cor pulmonale apixaban (ELIQUIS) 5 Take 1 tablet 60 tablet 11 Active mg by mouth 2 0 tabletIndications: (two) times acute pulmonary daily. thromboembolism, Indications: prevent recurrence acute blood of cutaneous ENL clot in a lesions blood vessel supplying the lungs, treatment to prevent recurrence of erythema nodosum leprosum skin lesions aspirin 81 mg Take 81 mg by 0 02/07/20 Ac tive chewable tablet mouth. 0 21 clopidogreL (PLAVIX) Take 1 tablet 90 tablet 3 03/20 Discontinued 75 mg by mouth 0 20 (Alternate tabletIndications: daily. t herapy) Nonobstructive atherosclerosis of coronary artery meloxicam 7.5 mg Take 1 tablet 30 tablet 0 03/20/20 Discontinued tabletIndications: by mouth 0 20 ( Alternate Lower extremity daily. ther apy) pain, bilateral documented as of this encounter (statuses as of 03/24/2020) Active Problems Problem Noted Date Pulmonary embolism 03/11/2020 BRIDGET (obstructive sleep apnea) 02/18/2020 Pacemaker 02/06/2020 Homeless 02/04/2020 Sick sinus syndrome due to SA node dysfunction 020 Syncope due to sick sinus syndrome 02/04/2020 Morbid obesity with body mass index of 40.0-49.9 07/17 Nonobstructive atherosclerosis of coronary artery 02/2018 Essential hypertension 12/07/2013 HLD (hyperlipidemia) 12/07/2013 Borderline diabetes mellitus 12/07/2013 Obesity (BMI 30-39.9) 12/07/2013 Tobacco abuse 12/07/2013 Atypical chest pain 11/20/2013 documented as of this encounter (statuses as of 03/24/2020) Immunizations Name Administration Dates Next Due Influenza Virus Vaccine (3+ yrs) 09/19/2013 Influenza Virus Vaccine Quad .5 mL IM 03/24/2020, 04/20/2019 6+ MO Pneumococcal Polysaccharide, PPSV23 04/20/2019, [...] been in contact with No / Unsure 03/20/2020 9:18 AM CDT someone who was confirmed or suspected to have Coronavirus / COVID-19? documented as of this encounter Last Filed Vital Signs Vital Sign Reading Time Taken Comments Blood Pressure 119/61 03/20/2020 9:17 AM CDT Pulse 85 03/20/2020 9:17 AM CDT Temperature 36.4 C (97.5 F) 03/20/2020 9:17 AM CDT Respiratory Rate 24 03/20/2020 9:17 AM CDT Oxygen Saturation 96% 03/20/2020 9:17 AM CDT Inhaled Oxygen Concentration - - Weight 122.8 kg (270 lb 12.8 oz) 03/20/2020 9:17 AM CDT Height 167.6 cm (5' 6") 03/20/2020 9:17 AM CDT Body Mass Index 43.71 03/20/2020 9:17 AM CDT documented in this encounter Progress Notes Ekta Lucero FNP - 03/20/2020 9:30 AM CDT Cc: Chief Complaint Patient presents with POST-HOSP HPI Juan Miguel Langston is a 54 year old male in clinic today to follow up after his latest hospitalization. Pt was transported via EMS to [facility] for dizziness and SOB. Was told that he hada PE in his LLL. There was some concern about the treatment plan and the patient left the hospital AMA to come to [facility]. Evidently was told that after his pacemaker placement, he was supposed to be on Elquis but continuedplavix. Thought he was not eligable to Eliquis but it can be gotten through the OATH program. Was given a 30 day voucher coupon on discharge. In clinic today to enroll for the patient assistance program. Pt complaining of claudication with walking. Long history of smoking and CAD. No know PVD. Pt requesting annual flu vaccine Allergies Juan Miguel is allergic to azithromycin and metoprolol. Medications Outpatient Medications Prior to Visit Medication Sig Dispense Refill amLODIPine 10 mg tablet Take 1 tablet by mouth daily for 30 days. 30 tablet 0 apixaban 5 mg tablet Take 1 tablet by mouth 2 (two) times daily for 30 days. Indications: deep vein thrombosis prevention 60 tablet 11 furosemide 40 mg tablet Take 40 mg by mouth daily. nitroglycerin 0.[address] 1 tablet under the tongue every 5 (five) minutes as needed for Chest pain. 1 Bottle 5 budesonide-formoteroL (SYMBICORT) 160-4.5 mcg/actuation inhaler Inhale 2 Puffs 2 (two) times daily. 10.2 g 11 lisinopril 40 mg tablet Take 1 tablet by mouth daily. 30 tablet 5 metformin ER 500 mg 24 hr tablet [...] 2 (two) times daily. 1 Each 11 meloxicam 7.5 mg tablet Take 1 tablet by mouth daily. 30 tablet 0 traMADol 50 mg tablet Take 1 tablet by mouth every 6 (six) hours as needed for Pain (scale 4-6).28 tablet 0 clopidogreL (PLAVIX) 75 mg tablet Take 1 tablet by mouth daily. 90 tablet 3 No facility-administered medications prior to visit. Histories Past Medical History: Diagnosis Date Arthritis CAD (coronary artery disease) RCA with 30-40% lesion Diabetes mellitus Heart murmur HLD (hyperlipidemia) HTN (hypertension) Obesity (BMI 30.0-34.9) Pacemaker February 2020 PE (pulmonary thromboembolism) Sinus pause up to 4.7 seconds at night during hospitalization in november 2013 Tobacco abuse Past Surgical History: Procedure Laterality Date SC RIGHT HEART CATH O2 SATURATION & CARDIAC OUTPUT x 3 last done in 2017 at [facility] Social History Socioeconomic History Marital status: Single [...] file Gets together: Not on file Attends episcopalian service: Not on file Active member of [...] History Narrative 01/11/2019 Lives with girlfriend of 3 years. Family History Problem Relation Age of Onset Coronary Heart Disease Mother of [place] at age 61 Diabetes Maternal Grandmother Review of Systems Constitutional: Positive for fatigue. Respiratory: Positive for shortness of breath. Cardiovascular: Positive for leg swelling. Musculoskeletal: Positive for back pain and joint swelling. Neurological: Positive for dizziness and weakness. Psychiatric/Behavioral: Positive for sleep disturbance. The patient is nervous/anxious. Vital Signs BP 119/61 (BP Location: Left arm, Patient Position: Sitting) | Pulse 85 | Temp 36.4 C (97.5 F)(Oral) | Resp 24 | Ht 5' 6" (1.676 m) | Wt 270 lb 12.8 oz (122.8 kg) | SpO2 96% | BMI 43.71 kg/m Physical Exam Constitutional: Appearance: Normal appearance. He is obese. HENT: Mouth/Throat: Mouth: Mucous membranes are moist. Eyes: Extraocular Movements: Extraocular movements intact. Conjunctiva/sclera: Conjunctivae normal. Neck: Musculoskeletal: Normal range of motion. Cardiovascular: Rate and Rhythm: Normal rate and regular rhythm. Pulses: Dorsalis pedis pulses are 1+ on the right side and 1+ on the left side. Posterior tibial pulses are 0 on the right side and 0 on the left side. Heart sounds: Normal heart sounds. Neurological: Mental Status: He is alert. Assessment/Plan 1. Pulmonary embolism, unspecified chronicity, unspecified pulmonary embolism type, unspecified whether acute cor pulmonale present - CONSULT/REFERRAL CARDIOLOGY - apixaban (ELIQUIS) 5 mg tablet; Take 1 tablet by mouth 2 (two) times daily. Indications: acute blood clot in a blood vessel supplying the lungs, treatment to prevent recurrence of erythema nodosum leprosum skin lesions Dispense: 60 tablet; Refill: 11 Medication provided by the [employer] program 2. Borderline diabetes mellitus - POCT GLUCOSE(AGE >30DAYS) 204 in clinic 3. Claudication of both lower extremities * - CONSULT/REFERRAL VASCULAR SURGERY - BILATERAL DUPLEX SCAN OF ARTERY BY VASCULAR LAB; Future 4. Flu vaccine need - FLU VACC([id number]), 6+ MONTHS, IM, QUAD (FLUZONE/FLULAVAL/FLUARIX) Appropriate plan of care, desired health behaviors, [...] issues and agrees with the plan. Ekta [facility] ilian Brown LVN - 03/20/2020 9:30 AM Josettenini Langston is a 54 year old male Patient here today for follow up for post hospialization. Reports 5 pain to bilateral knees and feeton scale 0/10, MD notified. Reviewed medications and allergies with patient today. Fall Risk Assessment/Screening performed with patient today and patient is not at risk for falls. Patient has been provided with VIS information at todays visit and education has been provided concerning influenza vaccine. After obtaining informed consent the immunization was given by IM injection. . Influenza vaccine 0.5ml injection placed to left deltoid. Tolerated well. Lot # [id number] / Exp. 12/31/2020. documented in this encounter Plan of Treatment Date Type Specialty Care Team Description 03/28/2020 Nurse Visit Cardiology Eunice Chang M D 146 [facility] [address] [place] [address] [phone] Visit, Adc Nurse 04/25/2020 Office Visit Pulmonary Disease Mayela Funes, DO [facility] [place] [phone] 08/20/2020 Office Visit Cardiology Eunice Chang M D [address] [facility] [address] [place] [address] Health Maintenance Due Date Last [...] 19, 09/19/2013 documented as of this encounter Implants Implanted Type Area Copywriting Intern Device Identifier Shelf Exp iration Model / Date Serial / L ot Pacemaker PACEMAKER documented as of this encounter Procedures Procedure Name Priority Date/Time Associated Diagnosis Comme nts FLU VACC Routine 03/24/2020 9:31 AM Flu vaccine need ([id number]), 6+ CDT MONTHS, IM, QUAD POCT GLUCOSE(AGE Routine 03/20/2020 9:40 AM Borderline diabet es Results for this >30DAYS) CDT mellitus procedure are i n the results section. documented in this encounter Results POCT GLUCOSE(AGE >30DAYS) (03/20/2020 9:40 AM CDT) Pathologist Sig nature POCT Glu (age>30days) 204 (A) 70 - 110 mg/dL Specimen Blood - CAPILLARY documented in this encounter Visit Diagnoses Diagnosis Pulmonary embolism, unspecified chronici ty, unspecified pulmonary embolism type, unspecified whether acute cor pulmonale present - Primary Borderline diabetes mellitus Other abnormal glucose Claudication of both lower extremities Flu vaccine need Need for prophylactic vaccination and in oculation against influenza documented in this encounter Insurance Payer Benefit Plan / Subscriber ID Effective Phone Address T ype Group Dates BRAZORIA DANETTEORIA [id number] 2019-Prese [phone] [facility] [address] [place] [address] documented as of this encounter
--- OUTSIDE RECORDS SUMMARY | 2020-05-05 12:44 | XMS REPORT | Summary of Care ---
:1965 Author Organization [facility] - Health Address [address] [place] [address] Care Team Providers Name Role Phone Nic JOSEFINA Primary Care Provider Encounter Details Date Type Department Care Team Description 04/02/2020 Orders Only [facility] Doctor Unassigned, No [address] [facility] [place] [address] [address] [place] [address] Allergies Active Allergy Reactions Severity Noted Date Comments Azithromycin Swelling High 08/11/2018 Throat swells Metoprolol Other - See comments 07/11/2018 Lowers heart rate too low documented as of this encounter (statuses as of 04/04/2020) Medications Medication Sig Dispensed Refills Start Date End Date Status albuterol 90 Inhale 2 Puffs 8.5 g 3 07/18/2019 A ctive mcg/actuation every 6 (six) inhalerIndications: hours as needed SOB (shortness of for Wheezing or breath) on exertion Shortness of Breath. fluticasone Inhale 1 Puff 2 1 Each 11 07/18/2019 A ctive propion-salmeterol (two) times (AIRDUO RESPICLICK) daily. 113-14 mcg/actuation AePBIndications: Dyspnea on exertion, Cigarette nicotine dependence without complication, Sleep-disordered breathing Pitavastatin (LIVALO) Take 1 tablet by 90 tablet 3 07/19/2019 Active 4 mg TabIndications: mouth daily. Mixed hyperlipidemia metformin ER 500 mg Take 1 tablet by 60 tablet 5 07/19/2019 Active 24 hr mouth 2 (two) tabletIndications: times daily with Borderline diabetes meals. mellitus traMADol 50 mg Take 1 tablet by 28 tablet 0 08/16/2019 Active tabletIndications: mouth every 6 Bilateral leg and (six) hours as foot pain needed for Pain (scale 4-6). lisinopril 40 mg Take 1 tablet by 30 tablet 5 10/26/2019 Active tabletIndications: mouth daily. Essential hypertension budesonide-formoteroL Inhale 2 Puffs 2 10.2 g 11 02/07/2020 Active (SYMBICORT) 160-4.5 (two) times mcg/actuation daily. inhalerIndications: Dyspnea on exertion, Cigarette nicotine dependence without complication, Sleep-disordered breathing nitroglycerin 0.[address] 1 tablet 1 Bottle 5 02/18/2020 Active sublingual under the tongue tabletIndications: every 5 (five) Chest pain, minutes as needed unspecified type for Chest pain. furosemide 40 mg Take 40 mg by 0 Active tablet mouth daily. apixaban 5 mg Take 1 tablet by 60 tablet 11 03/13/2020 04/12/20 20 Active tabletIndications: mouth 2 (two) deep vein thrombosis times daily for prevention 30 days. Indications: deep vein thrombosis prevention amLODIPine 10 mg Take 1 tablet by 30 tablet 0 03/13/202004/12 Active tabletIndications: mouth daily for Single subsegmental 30 days. pulmonary embolism without acute cor pulmonale apixaban (ELIQUIS) 5 Take 1 tablet by 60 tablet 11 03/20/2020 Active mg tabletIndications: mouth 2 (two) acute pulmonary times daily. thromboembolism, Indications: prevent recurrence of acute blood clot cutaneous ENL lesions in a blood vessel supplying the lungs, treatment to prevent recurrence of erythema nodosum leprosum skin lesions aspirin 81 mg Take 81 mg by 0 02/07/2020 02/06/2021 Active chewable tablet mouth. documented as of this encounter (statuses as of 04/04/2020) Active Problems Problem Noted Date Pulmonary embolism [...] as of this encounter (statuses as of 04/04/2020) Immunizations Name Administration Dates Next Due Influenza [...] Treatment Date Type Specialty Care Team Description 04/07/2020 Fabricator Special Items Visit Cardiology Irma Vale MD [address] [address] Pc, Adc Vascular Room 1 - 04/15/2020 Laboratory Only Cardiology Pacemaker/Icd, Adc 04/25/2020 Office Visit Pulmonary Disease Mayela Funes, [facility] [place] [address] 08/20/2020 Office Visit Cardiology Eunice Chang M D 146 [facility] [address] [place], [place] [address] [phone] Health Maintenance Due Date Last Done Comments COLON CANCER SCREENING ANNUAL 09/07/2015 FIT/FOBT COLON CANCER SCREENING FIT DNA EVERY 09/07/2015 3 YEARS COLON CANCER SCREENING SIGMOIDOSCOPY 09/07/2015 EVERY 5 YEARS COLONOSCOPY 09/07/2015 Colorectal Cancer Screening 09/07/2015 Zoster Recombinant Vaccine (SHINGRIX) 06/15/2019 04/20/2019 (2 of 2) Depression Screening 08/16/2020 08/16/2019 DTaP,Tdap,and Td Vaccines (2 - Td) 04/20/2029 04/20/2019 PNEUMOCOCCAL 0-64 YEARS COMBINED Completed 04/20/2019, SERIES INFLUENZA VACCINE Completed 03/24/2020, 04/20/2019, 09/19/2013 documented as of this encounter Implants Implanted Type Area Boarding Specialist Device Identifier Shelf Exp iration Model / Date Serial / L ot Pacemaker PACEMAKER documented as of this encounter Procedures Procedure Name Priority Date/Time Associated Diagnosis Comme nts OP CORRESPONDENCE Routine 04/02/2020 12:01 AM CDT documented in this encounter Results Not on filedocumented in this encounter Insurance Payer Benefit Plan Subscriber ID Effective Phone Address Typ e / Group Dates [place] [id number] 2018-08/03 [phone] [facility] /[address] [place] [address] ROSEANNA CONDON [id number] 2019-Prese [phone] [facility]IMARY CARE nt [address] [place] [address] [place] [id number] 2018-Pres [phone] [facility] I [facility] ent [address] [place] [address] documented as of this encounter
--- OUTSIDE RECORDS SUMMARY | 2020-05-05 12:44 | XMS REPORT | Summary of Care ---
:1965 Author Organization [facility] Address [address] [place] [address] Care Team Providers Name Role Phone JOSEFINA Lucero Primary Care Provider Reason for Referral (Routine) Status Reason Specialty Diagnoses / Referred By Referred To Procedures Contact Contact Pending Review Vascular Diagnoses Claudication of both lower extremities Ekta Lucero, Sonography Procedures BILATERAL DUPLEX SCAN OF ARTERY BY VASCULAR LAB [address] [address] (Routine) Status Reason Specialty Diagnoses / Referred By Referred To Procedures Contact Contact New Request Vascular Surgery Diagnoses Claudication of both lower extremities Ekta Lucero, Procedures CONSULT/REFERRAL VASCULAR SURGERY [address] [address] (Routine) Status Reason Specialty Diagnoses / Referred By Referred To Procedures Contact Contact New Request Cardiology Diagnoses Pulmonary embolism, unspecified chronicity, unspecified pulmonary embolism type, unspecified whether acute cor pulmonale present Ekta Lucero FNP Procedures CONSULT/REFERRAL CARDIOLOGY [address] [place] [address] Reason for Visit Reason Comments POST-HOSP Encounter Details Date Type Department Care Team Description [facility] [address] [place], [place] [id number] Pulmonary embolism, unspecified chronici ty, unspecified pulmonary embolism type, unspecified whether acute cor pulmonale present (Primary Dx); [facility], [facility] Primary Borderline diabetes mellitus; Clinic Claudication of both lower e xtremities; [address] [place] [address] Allergies Active Allergy Reactions Severity [...] hospitalization. Pt was transported via EMS to [facility] for dizziness and SOB. Was told that he hada PE in his LLL. There was some concern about the treatment plan and the patient left the hospital AMA to come to [place]. Evidently was told that after his pacemaker [...] abuse Past Surgical History: Procedure Laterality Date [place] RIGHT HEART CATH O2 SATURATION & CARDIAC OUTPUT x 3 last done in 2017 at [facility] Social History Socioeconomic History Marital status: [...] of Onset Coronary Heart Disease Mother of [place] at age 61 Diabetes Maternal Grandmother Review [...] tablet; Refill: 11 Medication provided by the [employer] program 2. Borderline diabetes mellitus - POCT GLUCOSE(AGE >30DAYS) 204 in clinic 3. Claudication of both lower extremities * - CONSULT/REFERRAL VASCULAR SURGERY - BILATERAL DUPLEX SCAN OF ARTERY BY VASCULAR LAB; Future 4. Flu vaccine need - FLU VACC([id number]), 6+ MONTHS, IM, QUAD (FLUZONE/FLULAVAL/FLUARIX) Appropriate plan [...] issues and agrees with the plan. Ekta [facility] ilian Brown LVN - 03/20/2020 9:30 AM [...] to left deltoid. Tolerated well. Lot # [id number] / Exp. 12/31/2020. documented in this encounter Plan of Treatment Date Type Specialty Care Team Description 03/28/2020 Nurse Visit Cardiology Eunice Chang M D 146 [facility] [address] [place] [phone] Visit, Adc Nurse 04/25/2020 Office Visit Pulmonary Disease Mayela Funes, DO [facility] [place] [phone] 08/20/2020 Office Visit Cardiology Eunice Chang M D 146 [facility] [address] [place] [address] Health Maintenance Due Date Last [...] of this encounter Implants Implanted Type Area Pole Classifier Device Identifier Shelf Exp iration Model / Date Serial / L ot Pacemaker PACEMAKER documented as of this encounter Procedures Procedure Name Priority Date/Time Associated Diagnosis Comme nts FLU VACC Routine 03/24/2020 9:31 AM Flu vaccine need ([id number]), 6+ CDT MONTHS, IM, QUAD POCT GLUCOSE(AGE [...] Address T ype Group Dates BRAZORIA DANETTEORIA [id number] 2019-Prese [phone] [facility] C[facility] PRIMARY CARE nt [address] [place] [address] documented as of this encounter
--- OUTSIDE RECORDS SUMMARY | 2020-05-05 12:44 | XMS REPORT | Summary of Care ---
:1965 Author Organization [facility] - [facility] Address [address] [place] [id number] Care Team Providers Name Role Phone JOSEFINA Martinez Primary Care Provider Reason for Referral (Routine) Status Reason Specialty Diagnoses / Referred By Referred To Procedures Contact Contact Pending Review IM-PULMONARY Diagnoses Single subsegmental pulmonary embolism without acute cor pulmonale Marge Bailon DISEASE Procedures Discharge Follow-Up: Specialty Service IM-PULMONARY DISEASE; 1 Week SkylarDENG munozP [address] [place] [address] [place] [address] (Routine) Status Reason Specialty Diagnoses / Referred By Referred To Procedures Contact Contact Pending Review Diagnoses Single subsegmental pulmonary embolism without acute cor pulmonale Marge Bailon Nancy, FNP Procedures Discharge Follow-up: PCP EKTA MARTINEZ; 1 Week SkylarDENG munozP [id number] [place] [address] Phone: [phone] Phone: Radiology Services (STAT) Status Reason Specialty Diagnoses / Referred By Referred To Procedures Contact Contact New Request Diagnostic Diagnoses SOB (shortness of breath) Sukhdev Gutierrez Radiology Procedures XR CHEST 1 VW COVID XR CHEST 1 TREE Sahni MD [address] [facility] [id number] [place] [address] Reason for Visit Reason Comments Shortness of Breath Auth/Cert Status Reason Specialty Diagnoses / Referred By Referred To Procedures Contact Contact Emergency Medicine Diagnoses SOB [facility] [address] [place] [address] Fax: Encounter Details Date Type Department Care Team Description 03/11/2020 - Emergency [facility] Medicine Surgery Ed Gutierrez MD [address] [facility] [id number] [place] [id number] Pulmonary embolism 03/13/2020 Unit Jamal Ponce MD 301 [place] [id number] [address] [place], [place] [address], [place] [id number] Allergies Active Allergy Reactions Severity Noted Date Comments Azithromycin Swelling High 08/11/2018 Throat swells Metoprolol Other - See comments 07/11/2018 Lowers heart rate too low documented as of this encounter (statuses as of 03/13/2020) Medications Medication Sig Dispensed Refills Start Date [...] Pitavastatin Take 1 tablet 90 tablet 3 07/19/2019 Ac tive (LIVALO) 4 mg by mouth daily. TabIndications: Mixed hyperlipidemia clopidogreL (PLAVIX) Take 1 tablet 90 tablet 3 07/19/2019 Active 75 mg by mouth daily. tabletIndications: Nonobstructive atherosclerosis of coronary artery metformin ER 500 mg Take 1 tablet 60 tablet 5 07/19/2019 Active 24 hr by mouth 2 tabletIndications: (two) times Borderline diabetes daily with mellitus meals. traMADol 50 mg Take 1 tablet 28 tablet 0 08/16/2019 Active tabletIndications: by mouth every Bilateral leg and 6 (six) hours foot pain as needed for Pain (scale 4-6). lisinopril 40 mg Take 1 tablet 30 tablet 5 10/26/2019 Active tabletIndications: by mouth daily. Essential hypertension meloxicam 7.5 mg Take 1 tablet 30 tablet 0 11/21/2019 Active tabletIndications: by mouth daily. Lower extremity pain, bilateral budesonide-formotero Inhale 2 Puffs 10.2 g 11 02/07/2020 Active L (SYMBICORT) 2 (two) times 160-4.5 daily. mcg/actuation inhalerIndications: Dyspnea on exertion, Cigarette nicotine dependence without complication, Sleep-disordered breathing nitroglycerin 0.[address] 1 tablet 1 Bottle 5 02/18/2020 Active sublingual under the tabletIndications: tongue every 5 Chest pain, (five) minutes unspecified type as needed for Chest pain. furosemide 40 mg Take 40 mg by 0 Active tablet mouth daily. apixaban 5 mg Take 1 tablet 60 tablet 11 03/13/2020 A ctive tabletIndications: by mouth 2 0 deep vein thrombosis (two) times prevention daily for 30 days. Indications: deep vein thrombosis prevention amLODIPine 10 mg Take 1 tablet 30 tablet 0 03/13/2020 04/12/20 2 Active tabletIndications: by mouth daily 0 Single subsegmental for 30 days. pulmonary embolism without acute cor pulmonale nitroglycerin Place 1 Tab 30 Tab 30 09/18/2013 Dis continued (NITROSTAT) 0.4 mg under the 0 sublingual tablet tongue every 5 (five) minutes as needed for Chest pain. documented as of this encounter (statuses as of 03/13/2020) Active Problems Problem Noted Date Pulmonary embolism 03/11/2020 BRIDGET (obstructive sleep apnea) 02/18/2020 Morbid obesity with body mass index of 40.0-49.9 07/17 Nonobstructive atherosclerosis of coronary artery 02/2018 Essential hypertension 12/07/2013 HLD (hyperlipidemia) 12/07/2013 Borderline diabetes mellitus 12/07/2013 Obesity (BMI 30-39.9) 12/07/2013 Tobacco abuse 12/07/2013 Atypical chest pain 11/20/2013 documented as of this encounter (statuses as of 03/13/2020) Immunizations Name Administration Dates Next Due Influenza [...] been in contact with No / Unsure 03/11/2020 8:40 AM CDT someone who was confirmed or suspected to have Coronavirus / COVID-19? documented as of this encounter Last Filed Vital Signs Vital Sign Reading Time Taken Comments Blood Pressure 161/101 03/13/2020 10:46 AM CDT Pulse 82 03/13/2020 10:46 AM CDT Temperature 36.4 C (97.6 F) 03/13/2020 10:46 AM CDT Respiratory Rate 18 03/13/2020 10:46 AM CDT Oxygen Saturation 97% 03/13/2020 10:46 AM CDT Inhaled Oxygen Concentration - - Weight 120.5 kg (265 lb 9.6 oz) 03/13/2020 3:15 AM CDT Height 167.6 cm (5' 6") 03/11/2020 12:02 PM CDT Body Mass Index 42.87 03/11/2020 12:02 PM CDT documented in this encounter Discharge Instructions AttachmentsThe following attachments cannot be sent through Care Everywhere. Apixaban oral tablets (South Korean)documented in this encounter Progress Notes Marge Bailon FNP - 03/12/2020 2:48 PM CDT [facility] Hospitalist Progress Note SUBJECTIVE: Patient sitting up having a meal. Explained to patient about followed with lab draws, Patient reports he does not have transportation for follow up with INR's CURRENT MEDICATIONS - reviewed. Current Facility-Administered Medications Medication Dose Route Frequency Last Rate Last Dose apixaban (ELIQUIS) tablet 5 mg 5 mg Oral BID acetaminophen (TYLENOL) tablet 650 mg 650 mg Oral Q6HPRN atorvastatin (LIPITOR) tablet 40 mg 40 mg Oral QHS 40 mg at 03/11/202021 budesonide-formoteroL (SYMBICORT) 160-4.5 mcg/actuation inhaler 2 Puff 2 Puff Inhalation BID 2 Puff at 03/12/20 0713 clopidogreL (PLAVIX) tablet 75 mg 75 mg Oral DAILY 75 mg at 03/12/20 0807 furosemide (LASIX) tablet 40 mg 40 mg Oral DAILY 40 mg at 03/12/20 0808 HYDROcodone-acetaminophen (NORCO 5) 5-325 mg tablet 1 tablet 1 tablet Oral Q6HPRN HYDROcodone-acetaminophen (NORCO) 10-325 mg tablet 1 tablet 1 tablet Oral Q6HPRN lisinopriL (PRINIVIL,ZESTRIL) tablet 40 mg 40 mg Oral DAILY 40 mg at 03/12/20 0807 nicotine (NICODERM) 14 mg/24 hr patch 1 Patch 1 Patch Topical Q24H 1 Patch at 03/11/20 2220 nitroglycerin (NITROSTAT) sublingual tablet 0.4 mg 0.4 mg Sublingual Q5MIN PRN ondansetron (ZOFRAN (PF)) injection 4 mg 4 mg Slow IV Push Q6HPRN Sliding Scale Insulin - Aspart (NOVOLOG) + Fsbg Testing Subcutaneous TID MEALS+HS 1 Units at03/12/20 1110 PHYSICAL EXAM: BP (!) 142/81 | Pulse 95 | Temp 36.4 C (97.6 F) (Temporal Artery) | Resp 20 | Ht 1.676 m (5'6") | Wt 121.8 kg (268 lb 9 oz) | SpO2 94% | BMI 43.35 kg/m General: NAD HEENT: Anicteric sclerae, NCAT Lungs: CTAB Cardio: RRR, strong symmetric pulses Abdomen: Obese, Soft, NTND Genitourinary: No lesions Musculoskeletal: Normal muscle mass, no synovitis Skin: No rash or lesions, normal turgot Neuro: AAOx3, no focal deficits Psych: Normal affect LABS/IMAGING - reviewed, pertinent results as below: CBC BMP PT/INR WBC x10^3 (/uL) Date Value 11/22/2013 6.0 WBC (10*3/L) Date Value 03/12/2020 8.73 NA Date Value 03/12/2020 137 mmol/L 11/22/2013 137 MMOL/L No results found for: PT RBC x10^6 (/uL) Date Value 11/22/2013 4.69 RBC (10*6/L) Date Value 03/12/2020 5.00 K Date Value 03/12/2020 4.0 mmol/L 11/22/2013 4.4 MMOL/L PT INR (no units) Date Value 11/20/2013 1.1 INR (no units) Date Value 03/12/2020 1.1 PLT x10^3 (/uL) Date Value 11/22/2013 256 PLT (10*3/L) Date Value 03/12/2020 236 CALCIUM Date Value 03/12/2020 8.9 mg/dL 11/22/2013 9.2 MG/DL HGB Date Value 03/12/2020 13.6 g/dL 11/22/2013 14.3 G/DL CL Date Value 03/12/2020 97 mmol/L (L) 11/22/2013 105 MMOL/L aPTT HCT (%) Date Value 03/12/2020 44.0 11/22/2013 42.1 BUN Date Value 03/12/2020 12 mg/dL 11/22/2013 18 MG/DL APTT (SEC) Date Value 11/20/2013 28 APTT Patient (Seconds) Date Value 03/11/2020 24 CREATININE Date Value 03/12/2020 0.60 mg/dL 11/22/2013 0.84 MG/DL IMAGING- Hospital Encounter on 03/11/20 XR CHEST 1 VW COVID Narrative EXAM: XR CHEST 1 VW COVID HISTORY: shortness of breath COMPARISON: None. FINDINGS: The heart and great vessels are normal and the lungs are well expanded and clear. The tips of pacemaker electrodes lie in the right atrium and right ventricle. ASSESSMENT/PLAN Juan Miguel Langston is a 54 year old male with PMH as listed above, admitted to the hospital with: #PE failed dosing of Eliquis patient unable to afford medication S/p Pacemaker Will stop both Lovenox 120 mg BID with coumadin 5 mg, patient not educated enough to follow the coumadin diet and follow up for lab draws. 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 I actively participated in the decision- making process. In summary, patient was admitted for SOB possible due to recently diagnosed PE. On AC. Plan to d/c home with Eliquis. Pt has been non-compliant. Rest of plan per below. Jamal Ponce M.D. 03/12/2020 6:11 PM Prosper Larson RN - 03/12/2020 1:39 PM CDTPt provided w/ Eliquis free 30 day supply coupon. Pt also provided w/ Eliquis finacial assistance application. Prosper Larson RN, BSN [facility] Clinical Auditor [phone] A ESTHERTSBeronica martinez LBSW - 03/11/2020 1:42 PM CDTSubjective Patient ID: Juan Miguel Langston is a 54 year old male. Care Management Social Functional Assessment Patient Name: Juan Miguel Langston Age: [id number] year old Sex: male Patient's Previous Admission Date at [facility]: 11/20/2013 Current diagnosis and co-morbidities: pulmonary embolism;chest pain Readmission Questions: Was patient discharged from any acute care hospital within the last 30 days: No Social Functional Assessment: Primary language spoken/preferred: [place] Mental Status: Alert & Oriented to Person,Place & Time Information given by: Self Patient's support system: Other Name and number of support system: sunday Trejo [phone] [employer] Salesperson: Self MPOA: No Living Arrangement: Home Address of living arrangement : [address] [place] [id number] Persons living in home: Self;Other Barriers to returning home: None Baseline functional status- ambulation: Independent Functional status-baseline personal care: Independent Baseline functional status- driving: Independent Baseline functional status- grocery shopping: Independent Functional status-baseline housekeeping: Independent Functional status-baseline meal prep: Independent Current functional status same as prior: Yes Do you have a PCP?: Yes Name of PCP: Ekta Martinez Home Health Care Agency: No Provider Services: No DME Company: No Equipment: None Hemodialysis: No Community resources utilized: [employer] Funding Resources: [facility] Prescription coverage plan: Other Other prescription coverage plan: [facility] where meds are filled: Other Other pharmacy: [facility] Anticipated services prior to disharge: Continue Medical Eval Expected mode of discharge transportation: Same as support system Additional Recommendations for DC: Medical clearance Additional info required for discharge planning: Pending medical evaluation Recommended discharge plan: Home SFA Complete: Social Functional Assessment complete: Yes Alcohol Use Screening (AUDIT-C) How often do you have a drink containing alcohol?: Never SCORE: 0 Did patient elect to have resources provided: No Role of Care Management explained. Any issues or concerns with obtaining/affording your medications at home: yes. Describe: patient iscovered under [facility] Program and is unable to afford some of his medications. Are you or your support system able to excelsior picker medications at discharge: yes. Review of Systems Objective Physical Exam Assessment/Plan Will return home with sig other. SW will assist with Rx assistance needs as patient was recently discharged from [facility] and unable to afford discharge meds. TEE Medina Pole Shaver Helper - Care Management [facility] [phone] [email or web address] documented in this encounter H&P Notes Marge Bailon FNP - 03/11/2020 3:59 PM CDT [facility] Hospitalist Admission H&P Date of Service: 03/11/2020 CHIEF COMPLAINT: SOB HISTORY OF PRESENT ILLNESS Juan Miguel Langston is a 54 year old male with history of CAD, DM, HLD, HTN, current smoker, pacemaker and PE who presents with gradual unset of SOB. Patient just left [facility] for PE. Patient denies chest pain, leg or calf pain, edema of wheezing. PAST MEDICAL HISTORY Past Medical History: Diagnosis Date Arthritis CAD (coronary artery disease) RCA with 30-40% lesion Diabetes mellitus Heart murmur HLD (hyperlipidemia) HTN (hypertension) Obesity (BMI 30.0-34.9) Pacemaker February 2020 PE (pulmonary thromboembolism) Sinus pause up to 4.7 seconds at night during hospitalization in november 2013 Tobacco abuse PAST SURGICAL HISTORY Past Surgical History: Procedure Laterality Date MA RIGHT HEART CATH O2 SATURATION & CARDIAC OUTPUT x 3 last done in 2017 at [facility] ALLERGIES Allergies Allergen Reactions Azithromycin Swelling Throat swells Metoprolol Other - See comments Lowers heart rate too low MEDICATIONS Current home medication list reviewed: Current Discharge Medication List STOP taking these medications furosemide 40 mg tablet Comments: Reason for Stopping: nitroglycerin 0.4 mg sublingual tablet Comments: Reason for Stopping: budesonide-formoteroL (SYMBICORT) 160-4.5 mcg/actuation inhaler Comments: Reason for Stopping: meloxicam 7.5 mg tablet Comments: Reason for Stopping: lisinopril 40 mg tablet Comments: Reason for Stopping: traMADol 50 mg tablet Comments: Reason for Stopping: clopidogreL (PLAVIX) 75 mg tablet Comments: Reason for Stopping: metformin ER 500 mg 24 hr tablet Comments: Reason for Stopping: Pitavastatin (LIVALO) 4 mg Tab Comments: Reason for Stopping: albuterol 90 mcg/actuation inhaler Comments: Reason for Stopping: fluticasone propion-salmeterol (AIRDUO RESPICLICK) 113-14 mcg/actuation AePB Comments: Reason for Stopping: nitroglycerin (NITROSTAT) 0.4 mg sublingual tablet Comments: Reason for Stopping: FAMILY HISTORY Family History Problem Relation Age of Onset Coronary Heart Disease Mother of CA at age 61 Diabetes Maternal Grandmother SOCIAL HISTORY Social History Socioeconomic History Marital status: Single [...] 01/11/2019 Lives with girlfriend of 3 years. REVIEW OF SYSTEMS Constitutional: negative fevers/chills, weight changes Eyes: negative acute blurry vision, eye discharge Ears, Nose, Mouth, Throat: negative dysphagia, runny nose, sore throat, tinnitus Cardiovascular: negative chest pain, paplitaitons Respiratory: Positive sob, cough Gastrointestinal: negative abd pain, nausea, vomiting Genitourinary: Negative dysuria, hematuria Musculoskeletal: Positive calf swelling Integumentray: negative rash, itching Neurological: negative syncope, focal weakness Psychiatric: negative hallucinations PHYSICAL EXAMINATION BP (!) 160/94 | Pulse 81 | Temp 36.3 C (97.3 F) (Tympanic) | Resp 22 | Ht 1.676 m (5' 6") |Wt 122.5 kg (270 lb) | SpO2 97% | BMI 43.58 kg/m General: No acute distress, not groomed HEENT: Normal oral mucosa, anicteric sclerae, NCAT Cardiovascular: RRR, trace pedal edema Lungs: CTAB Abdomen: Obese, Soft, NTND Musculoskeletal: Normal ROM, normal muscle mass Genitourinary: Normal Skin: No rash, lesions Neuro: AAOx3, no focal deficits Psych: Normal affect LABS - reviewed pertinent labs as below: CBC BMP PT/INR WBC x10^3 (/uL) Date Value 11/22/2013 6.0 WBC (10*3/L) Date Value 03/11/2020 8.63 NA Date Value 03/11/2020 138 mmol/L 11/22/2013 137 MMOL/L No results found for: PT RBC x10^6 (/uL) Date Value 11/22/2013 4.69 RBC (10*6/L) Date Value 03/11/2020 5.03 K Date Value 03/11/2020 3.7 mmol/L 11/22/2013 4.4 MMOL/L PT INR (no units) Date Value 11/20/2013 1.1 INR (no units) Date Value 03/11/2020 1.0 PLT x10^3 (/uL) Date Value 11/22/2013 256 PLT (10*3/L) Date Value 03/11/2020 257 CALCIUM Date Value 03/11/2020 10.0 mg/dL 11/22/2013 9.2 MG/DL HGB Date Value 03/11/2020 13.6 g/dL 11/22/2013 14.3 G/DL CL Date Value 03/11/2020 98 mmol/L 11/22/2013 105 MMOL/L aPTT HCT (%) Date Value 03/11/2020 43.1 11/22/2013 42.1 BUN Date Value 03/11/2020 12 mg/dL 11/22/2013 18 MG/DL APTT (SEC) Date Value 11/20/2013 28 APTT Patient (Seconds) Date Value 03/11/2020 24 CREATININE Date Value 03/11/2020 0.60 mg/dL 11/22/2013 0.84 MG/DL IMAGING - reviewed, pertinent results as below: Hospital Encounter on 03/11/20 XR CHEST 1 VW COVID Narrative EXAM: XR CHEST 1 VW COVID HISTORY: shortness of breath COMPARISON: None. FINDINGS: The heart and great vessels are normal and the lungs are well expanded and clear. The tips of pacemaker electrodes lie in the right atrium and right ventricle. ASSESSMENT/PLAN Juan Miguel Langston 54 year-old white male white male: #PE failed dosing of Eliquis patient unable to afford medication S/p Pacemaker Will start Lovenox 120 mg BID with coumadin 5 mg daily until INR therapeutic. Patient will be able to afford warfarin Medication?? PT/ INR daily to keep between 2-3 CM consulted for assistance with medication #CAD Continue plavix 75 mg daily Livalo 4 mg daily substitute atorvastatin 40 mg daily NTG prn # HTN Lisinopril 40 mg daily #HLD Livalo 4 mg daily #Diastolic CHF EF 60-65% Lasix 40 mg daily Tobacco abuse: Offered nicotine patch patient refused, encourage cessation Prophylaxis: DVT- on coumadin Stress Ulcer: no indication for prophylaxis Advanced Care Planning (Z71.89) Above assessment and plan discussed at length with patient, patient expressed full understanding. Questions and concerned addressed, I spent 18 minutes discussing the advance care plan. Surrogate decision maker: self Level of care expected after discharge: self care Code status: Full code Smoking Cessation: (Z71.6) Tobacco user?: current if yes: Risk discussed: Yes Patient does not want a patch at this time or to quit and understands the risks Time spent: 5 minutes discussing smoking cessation Observation [facility] was viewed during this stay JOSEFINA Aleman Associated attestation - Jamal Ponce MD - 03/11/2020 6:19 PM CDTI personally evaluated and examined the patient on 03/11/2020 and agree with the note as detailed by the nurse practitioner. I actively participated in the decision- making process. In summary, patient was admitted for SOB possible due to recently diagnosed PE. Rest of plan per below. Jamal Ponce M.D. 03/11/2020 6:19 PM documented in this encounter Consult Notes Beronica Resendiz LBSW - 03/11/2020 3:09 PM CDTAssociated Order(s): CONSULT CNA HHA-ADULTPt currently has [facility] and unfortunately will not qualify for Home Health services for medication management or nursing services. Other arrangements will need to be made. TEE Medina Pole Shaver Helper - Care Management [facility] [phone] [email or web address] documented in this encounter ED Notes Estefania Romero RN - 03/11/2020 8:41 AM CDTPatient reports shortness of breath since Tuesday after being discharged from [facility] in which he was diagnosed with a right lower lobe PE aSukhdev ayala MD - 03/11/2020 8:34 AM CDT [facility] Emergency Department Note Patient Name: Juan Miguel Langston Date of : 1965 54 year old male Treatment Room: [place] [address] Primary Care Physician: Ekta Martinez Patient Escorted by: Self [9] Mode of Arrival: Personal means [1] EMS 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 No respiratory distress. No wheezing. Chronic daily smokers cough, unchanged. No increased use of albuterol or symbicort. No fever. No cold symptoms. (+)substernal chest pain, daily, long- term, no significant changes recently. No nausea, vomiting, diarrhea. No black/bloody stools. No new pedal edema. No fall injury. Reports being admitted to [facility] on 03/07/20 for new diagnosis of pulmonary embolism in right lower lobe. States he was discharged with a prescription on 03/08, which he did not fill due to cost. Returned to [facility] on 03/09 for same, admitted for treatment of pulmonary embolism with lovenox and warfarin. Left the hospital AMA. Did not obtain any discharge prescriptions. History provided by: Patient Past Medical History/Immunizations: Past Medical History: Diagnosis Date Arthritis CAD (coronary artery disease) RCA with 30-40% lesion Diabetes mellitus Heart murmur HLD (hyperlipidemia) HTN (hypertension) Obesity (BMI 30.0-34.9) Pacemaker February 2020 PE (pulmonary thromboembolism) Sinus pause up to 4.7 seconds at night during hospitalization in november 2013 Tobacco abuse Tetanus received in last 5 years: Yes Childhood immunizations: Up-to-date Allergies: Allergies Allergen Reactions Azithromycin Swelling Throat swells Metoprolol Other - See comments Lowers heart rate too low Past Social History: Tobacco Use Current Every Day Smoker; Smoked an average of 0.25 packs/day for 26 years. Smokeless Tobacco: Former user of smokeless tobacco. Comments: Down to 10 cigs a day Alcohol Use No. Comments: Stopped in 2012 Drug Use Not Currently; Marijuana. Comments: as a teenage. None since Sexual Activity Sexually active; Partners: Female; Control/Protection: Post-menopausal. Past Surgical History: Past Surgical History: Procedure Laterality Date MA RIGHT HEART CATH O2 SATURATION & CARDIAC OUTPUT x 3 last done in 2017 at [facility] Review of Systems: Review of Systems Constitutional: Negative. HENT: Negative. Eyes: Negative. Respiratory: Positive for cough and shortness of breath. Negative for wheezing. Cardiovascular: Positive for chest pain. Negative for leg swelling. Gastrointestinal: Negative. Genitourinary: Negative. Musculoskeletal: Negative. Skin: Negative. Neurological: Negative. Psychiatric/Behavioral: Negative. Physical Exam: ED Triage Vitals Weight 03/11/20 0847 123.8 kg (273 lb) Actual or estimated 03/11/20 0847 Estimated by patient/family report Height -- BP 03/11/20 0847 (!) 191/102 Pulse 03/11/20 0843 106 Resp 03/11/20 0843 24 Temp 03/11/20 0843 37.4 C (99.3 F) Temp source 03/11/20 0843 Oral SpO2 03/11/20 0843 97 % Measured on 03/11/20 0843 Room air Physical Exam Vitals signs and nursing note reviewed. HENT: Head: Normocephalic and atraumatic. Nose: Nose normal. Eyes: Extraocular Movements: Extraocular movements intact. Conjunctiva/sclera: Conjunctivae normal. Neck: Musculoskeletal: Normal range of motion. Cardiovascular: Rate and Rhythm: Regular rhythm. Tachycardia present. Pulmonary: Effort: Pulmonary effort is normal. No respiratory distress. Breath sounds: Normal breath sounds. No stridor. No wheezing, rhonchi or rales. Comments: No accessory muscle use; speaks easily in completed sentences Chest: Chest wall: No tenderness. Abdominal: Palpations: Abdomen is soft. Tenderness: There is no abdominal tenderness. Musculoskeletal: Normal range of motion. General: No deformity or signs of injury. Skin: General: Skin is warm. Neurological: General: No focal deficit present. Mental Status: He is alert. Psychiatric: Mood and Affect: Mood normal. Radiology: Hospital Encounter on 03/11/20 XR CHEST 1 VW COVID Narrative EXAM: XR CHEST 1 VW COVID HISTORY: shortness of breath COMPARISON: None. FINDINGS: The heart and great vessels are normal and the lungs are well expanded and clear. The tips of pacemaker electrodes lie in the right atrium and right ventricle. Lab Results (24h): Recent Results (from the past 24 hour(s)) TROPONIN I Collection Time: 03/11/20 8:56 AM Result Value Ref Range TROPONIN I 0.019 <=0.034 ng/mL aPTT Collection Time: 03/11/20 8:56 AM Result Value Ref Range APTT Patient 24 23 - 38 Seconds PROTHROMBIN TIME / INR Collection Time: 03/11/20 8:56 AM Result Value Ref Range PROTIME PATIENT 13.1 12.0 - 14.7 Seconds INR 1.0 COMP. METABOLIC PANEL (73481) Collection Time: 03/11/20 8:56 AM Result Value Ref Range NA 138 135 - 145 mmol/L K 3.7 3.5 - 5.0 mmol/L CL 98 98 - 108 mmol/L CO2 TOTAL 33 (H) 23 - 31 mmol/L AGAP 7 2 - 16 BUN 12 7 - 23 mg/dL GLUCOSE 174 (H) 70 - 110 mg/dL CREATININE 0.60 0.60 - 1.25 mg/dL TOTAL BILI 0.2 0.1 - 1.1 mg/dL CALCIUM 10.0 8.6 - 10.6 mg/dL T PROTEIN 6.6 6.3 - 8.2 g/dL ALBUMIN 3.8 3.5 - 5.0 g/dL ALK PHOS 48 34 - 122 U/L ALTv 89 (H) 5 - 50 U/L AST(SGOT) 38 13 - 40 U/L eGFR Calculation (Non-) 140.4 mL/min/1.73m2 eGFR Calculation () 170.2 mL/min/1.73m2 LIPASE, SERUM Collection Time: 03/11/20 8:56 AM Result Value Ref Range LIPASE 137 0 - 220 U/L CBC WITH DIFF Collection Time: 03/11/20 8:56 AM Result Value Ref Range WBC 8.63 4.20 - 10.70 10*3/L RBC 5.03 4.26 - 5.52 10*6/L HGB 13.6 12.2 - 16.4 g/dL HCT 43.1 38.4 - 49.3 % MCV 85.7 81.7 - 95.6 fL MCH 27.0 26.1 - 32.7 pg MCHC 31.6 31.2 - 35.0 g/dL RDW-SD 50.8 38.5 - 51.6 fL RDW-CV 16.3 (H) 12.1 - 15.4 % PLT 257 150 - 328 10*3/L MPV 10.7 9.8 - 13.0 fL NRBC/100 WBC 0.0 0.0 - 10.0 /100 WBCs NRBC x10^3 <0.01 10*3/L GRAN MAT (NEUT) % 68.7 % IMM GRAN % 0.30 % LYMPH % 19.4 % MONO % 8.8 % EOS % 2.3 % BASO % 0.5 % GRAN MAT x10^3(ANC) 5.93 1.99 - 6.95 10*3/uL IMM GRAN x10^3 0.03 0.00 - 0.06 10*3/uL LYMPH x10^3 1.67 1.09 - 3.23 10*3/uL MONO x10^3 0.76 0.36 - 1.02 10*3/uL EOS x10^3 0.20 0.06 - 0.53 10*3/uL BASO x10^3 0.04 0.01 - 0.09 10*3/uL COVID-19 (ID NOW RAPID TESTING) Collection Time: 03/11/20 9:39 AM Specimen: NASOPHARYNGEAL SWAB Result Value Ref Range SARS-CoV-2 Rapid ID NOW Not Detected Not Detected EKG: Interpreted by me ([id number]) SR@93, +55 nl axis, nsst/tw, qtc 435 Compared to EKG of 11/21/2019, no significant changes Orders and Treatments: Orders Placed This Encounter Procedures XR CHEST 1 VW COVID TROPONIN I aPTT PROTHROMBIN TIME / INR COMP. METABOLIC PANEL (50063) LIPASE, SERUM CBC WITH DIFF COVID-19 (ID NOW RAPID TESTING) Orders Placed This Encounter Medications enoxaparin (LOVENOX) injection 100 mg warfarin (COUMADIN) tablet 5 mg ED COURSE ED Course as of Mar 11 1122e Mar 11, 2020 1101 Discussed findings and plan with patient. He reports financial challenge with Eliquis. Also for5-day bridge of Lovenox with warfarin. [RK] 1042 Records release sent to [facility]. Case discussed with Hospitalist at [facility]. Seen 03/07 and 03/09. CT Thorax notable for RLL distal segment pulmonary embolism. No mass identified. Originally treated with Eliquis and discharged with coupon. Seen again on 03/09. Did not fill Eliquis prescription due to funds. Plan for admit on lovenox and coumadin. Pt left AMA. [RK] ED Course User Index [RK] Sukhdev Gutierrez MD MDM: MDM Reviewed: previous chart, nursing note and vitals Interpretation: labs, x-ray and ECG Diagnosis/Impression: ICD-10-CM ICD-9-CM 1. Single subsegmental pulmonary embolism without acute cor pulmonale I26.93 415.19 2. SOB (shortness of breath) R06.02 786.05 3. Chest pain, unspecified type R07.9 786.50 4. Coronary artery disease involving [place] coronary artery of [place] heart with angina pectoris I25.119 414.01 413.9 5. Type 2 diabetes mellitus without complication, without long-term current use of insulin E11.9 250.00 6. Essential hypertension I10 401.9 Disposition/Condition: ED Disposition ED Disposition Condition Comment Admit - Observation Stable Discharge Medications: Patient's Medications START taking these medications No medications on file CONTINUE taking these medications which have NOT CHANGED ALBUTEROL 90 MCG/ACTUATION INHALER Inhale 2 Puffs every 6 (six) hours as needed for Wheezing or Shortness of Breath. BUDESONIDE-FORMOTEROL (SYMBICORT) 160-4.5 MCG/ACTUATION INHALER Inhale 2 Puffs 2 (two) times daily. CLOPIDOGREL (PLAVIX) 75 MG TABLET Take 1 tablet by mouth daily. FLUTICASONE PROPION-SALMETEROL (AIRDUO RESPICLICK) 113-14 MCG/ACTUATION AEPB Inhale 1 Puff 2 (two) times daily. LISINOPRIL 40 MG TABLET Take 1 tablet by mouth daily. MELOXICAM 7.5 MG TABLET Take 1 tablet by mouth daily. METFORMIN ER 500 MG 24 HR TABLET Take 1 tablet by mouth 2 (two) times daily with meals. NITROGLYCERIN (NITROSTAT) 0.[address] 1 Tab under the tongue every 5 (five) minutes as needed for Chest pain. NITROGLYCERIN 0.[address] 1 tablet under the tongue every 5 (five) minutes as needed for Chest pain. PITAVASTATIN (LIVALO) 4 MG TAB Take 1 tablet by mouth daily. TRAMADOL 50 MG TABLET Take 1 tablet by mouth every 6 (six) hours as needed for Pain (scale 4-6). START taking Modified Medications as Prescribed No medications on file STOP taking these medications No medications on file Follow-up: n/a Electronically signed by: Sukhdev Gutierrez MD 03/11/2020 8:44 AM documented in this encounter Miscellaneous Notes Care Plan - Marge Shepherd RN - 03/13/2020 1:25 AM CDT Problem: Discharge Planning Goal: Absence of venous thromboembolism Outcome: Progressing as expected Goal: Adequate for discharge Outcome: Progressing as expected Goal: Effective communication Outcome: Progressing as expected Problem: Discharge Planning Goal: Absence of venous thromboembolism Outcome: Progressing as expected Goal: Adequate for discharge Outcome: Progressing as expected Goal: Adequate to move to next level of care Outcome: Progressing as expected Goal: Knowledge of medication management Outcome: Progressing as expected Problem: Falls, Risk of Goal: Absence of falls Outcome: Progressing as expected Problem: Respiratory Function - Impaired Goal: Adequate oxygenation Outcome: Progressing as expected Goal: Adequate work of breathing Outcome: Progressing as expected are Plan - Annika Richey RN - 03/12/2020 8:07 AM CDT Problem: Discharge Planning Goal: Absence of venous thromboembolism Outcome: Progressing as expected Goal: Adequate for discharge Outcome: Progressing as expected Goal: Effective communication Outcome: Progressing as expected Problem: Discharge Planning Goal: Absence of venous thromboembolism Outcome: Progressing as expected Goal: Adequate for discharge Outcome: Progressing as expected Goal: Adequate to move to next level of care Outcome: Progressing as expected Goal: Knowledge of medication management Outcome: Progressing as expected Problem: Falls, Risk of Goal: Absence of falls Outcome: Progressing as expected Problem: Respiratory Function - Impaired Goal: Adequate oxygenation Outcome: Progressing as expected Goal: Adequate work of breathing Outcome: Progressing as expected A ESTHERTCMarge Kay RN - 03/12/2020 1:03 AM CDT Problem: Discharge Planning Goal: Absence of venous thromboembolism Outcome: Progressing as expected Goal: Adequate for discharge Outcome: Progressing as expected Goal: Effective communication Outcome: Progressing as expected Problem: Discharge Planning Goal: Absence of venous thromboembolism Outcome: Progressing as expected Goal: Adequate for discharge Outcome: Progressing as expected Goal: Adequate to move to next level of care Outcome: Progressing as expected Goal: Knowledge of medication management Outcome: Progressing as expected Problem: Falls, Risk of Goal: Absence of falls Outcome: Progressing as expected Problem: Respiratory Function - Impaired Goal: Adequate oxygenation Outcome: Progressing as expected Goal: Adequate work of breathing Outcome: Progressing as expected Annika Uriarte RN - 03/11/2020 12:15 PM CDT Problem: Discharge Planning Goal: Absence of venous thromboembolism Outcome: Progressing as expected Goal: Adequate for discharge Outcome: Progressing as expected Goal: Effective communication Outcome: Progressing as expected Problem: Discharge Planning Goal: Absence of venous thromboembolism Outcome: Progressing as expected Goal: Adequate for discharge Outcome: Progressing as expected Goal: Adequate to move to next level of care Outcome: Progressing as expected Goal: Knowledge of medication management Outcome: Progressing as expected Problem: Falls, Risk of Goal: Absence of falls Outcome: Progressing as expected D Nurse Note - Estefania Romero, RN - 03/11/2020 11:49 AM CDTReport given to Annika GRAJEDA documented in this encounter Plan of Treatment Date Type Specialty Care Team Description 03/28/2020 Nurse Visit Cardiology Visit, Adc Nurse 04/25/2020 Office Visit Pulmonary Disease Mayela Funes, [address] [place] [id number] 08/20/2020 Office Visit Cardiology Eunice Chang M D [address] [id number] [phone] Name Type Priority Associated Diagnoses Date/Ti me URINE DRUG (LCMSMS) - LAB Routine 2019 4:26 AM CDT COMPREHENSIVE DRUG PANEL Name Type Priority Associated Diagnoses Order S chedule CBC with Differential LAB Routine EVERY MORNING AT 0400 for 3 Occurrenc es starting 2019 until 0, 2 completed Basic Metabolic Panel (NA, LAB Routine E VERY MORNING AT 0400 K, CL, CO2, GLUCOSE, BUN, fo r 3 Occurrences CREATININE, CA) starting 03/2020 until 0, 2 completed Prothrombin Time / INR LAB Routine EVERY 24 HOURS (START TIME ADJUSTABLE ) for 3 Days starting 0 03/12/2020 until 0, 2 completed URINE DRUG (LCMSMS) - LAB Routine ONCE f or 1 Occurrences COMPREHENSIVE DRUG PANEL sta rting 03/11/2020 until 0, 1 completed Health Maintenance Due Date Last [...] of this encounter Implants Implanted Type Area Bill Checker Device Identifier Shelf Exp iration Model / Date Serial / L ot Pacemaker PACEMAKER documented as of this encounter Procedures Procedure Name Priority Date/Time Associated Comments Diagnosis POCT GLUCOSE Routine 03/13/2020 10:48 Results for this (AUTOMATED) AM CDT procedure are i n the results section. POCT GLUCOSE Routine 03/13/2020 7:27 Results for this (AUTOMATED) AM CDT procedure are i n the results section. PROTHROMBIN TIME / Routine 03/13/2020 3:37 Resul ts for this INR AM CDT procedure are i n the results section. CBC WITH DIFF Routine 03/13/2020 3:37 Results fo r this AM CDT procedure are i n the results section. BASIC METABOLIC PANEL Routine 03/13/2020 3:37 Re sults for this (NA, K, CL, CO2, AM CDT procedure a re in GLUCOSE, BUN, the results CREATININE, CA) section. POCT GLUCOSE Routine 03/12/2020 7:44 Results for this (AUTOMATED) PM CDT procedure are i n the results section. POCT GLUCOSE Routine 03/12/2020 3:35 Results for this (AUTOMATED) PM CDT procedure are i n the results section. POCT GLUCOSE Routine 03/12/2020 10:57 Results for this (AUTOMATED) AM CDT procedure are i n the results section. POCT GLUCOSE Routine 03/12/2020 7:36 Results for this (AUTOMATED) AM CDT procedure are i n the results section. PROTHROMBIN TIME / Routine 03/12/2020 4:26 Resul ts for this INR AM CDT procedure are i n the results section. CBC WITH DIFF Routine 03/12/2020 4:26 Results fo r this AM CDT procedure are i n the results section. ETHANOL Routine 03/12/2020 4:26 Results for this AM CDT procedure are i n the results section. BASIC METABOLIC PANEL Routine 03/12/2020 4:26 Re sults for this (NA, K, CL, CO2, AM CDT procedure a re in GLUCOSE, BUN, the results CREATININE, CA) section. POCT GLUCOSE Routine 03/11/2020 8:12 Results for this (AUTOMATED) PM CDT procedure are i n the results section. XR CHEST 1 VW COVID STAT 03/11/2020 9:53 SOB (shortness of Results for this AM CDT breath) procedure are i n the results section. COVID-19 (ID NOW STAT 03/11/2020 9:39 SOB (shortness of Re sults for this RAPID TESTING) AM CDT breath) procedure are in the results section. EKG-12 LEAD STAT 03/11/2020 8:56 AM CDT ACTIVATED PARTIAL STAT 03/11/2020 8:56 SOB (shortness of R esults for this THRMPLAS JUAN RAMON AM CDT breath) procedure are i n the results section. PROTHROMBIN TIME / STAT 03/11/2020 8:56 SOB (shortness of Results for this INR AM CDT breath) procedure are i n the results section. CBC WITH DIFF STAT 03/11/2020 8:56 SOB (shortness of Resul ts for this AM CDT breath) procedure are i n the results section. COMP. METABOLIC PANEL STAT 03/11/2020 8:56 SOB (shortness of Results for this (18505) AM CDT breath) procedure are i n the results section. TROPONIN I STAT 03/11/2020 8:56 SOB (shortness of Result s for this AM CDT breath) procedure are i n the results section. LIPASE STAT 03/11/2020 8:56 SOB (shortness of Result s for this AM CDT breath) procedure are i n the results section. EKG-12 LEAD Routine 03/11/2020 8:53 AM CDT NOTICE OF PRIVACY Routine 03/11/2020 8:33 PRACTICES AM CDT documented in this encounter Results POCT GLUCOSE (AUTOMATED) (03/13/2020 10:48 AM CDT) Pathologist Sig nature POCT GLU 155 (H) 70 - 110 mg/dL [facility] Specimen Blood Performing Organization Address City/[facility] Phone Number [facility] CLIA: [id number] [place] [address] POCT GLUCOSE (AUTOMATED) (03/13/2020 7:27 AM CDT) Pathologist Sig nature POCT GLU 119 (H) 70 - 110 mg/dL [facility] Specimen Blood Performing Organization Address City/[facility]/Zipcode Phone Number [facility] CLIA: [id number] [place], [place] [address] LABORAT[address] Prothrombin Time / INR (03/13/2020 3:37 AM CDT) PROTIME PATIENT 12.9 12.0 - 14.7 [facility] Seconds [facility] INR 1.0Comment: Normal [facility] INR <1.1; Warfarin [facility] Therapeutic range LABORATORY 2.0 to 3.0 or 2.5 to 3.5, depending upon the indications. Specimen Blood - ARM, RIGHT Performing Organization Address City/State/Zipcode Phone Number [facility] CLIA: [id number] [place] [address] Basic Metabolic Panel (NA, K, CL, CO2, GLUCOSE, BUN, CREATININE, CA) (03/13/2020 3:37 AM CDT) [facility] NA 138 135 - 145 [facility] mmol/L [facility] K 3.9 3.5 - 5.0 [facility] mmol/L [facility] CL 96 (L) 98 - 108 mmol/L [facility] CO2 TOTAL 37 (H) 23 - 31 mmol/L [facility] AGAP 5 2 - 16 [facility] BUN 15 7 - 23 mg/dL [facility] GLUCOSE 127 (H) 70 - 110 mg/dL [facility] CREATININE 0.65 0.60 - 1.25 [facility] mg/dL [facility] CALCIUM 9.0 8.6 - 10.6 [facility] mg/dL [facility] eGFR Calculation 128.0 mL/min/1.73m2 [facility] ([facility] LAB[facility]ATORY Estonian) eGFR Calculation 155.2 mL/min/1.73m2 [facility] () [facility] Specimen Blood - ARM, RIGHT Narrative Performed At Association of Glomerular Filtration Rate (GFR) [facility] and Staging of Kidney Disease* + [...] tests). Performing Organization Address City/State/Zipcode Phone Number [facility] CLIA: [id number] [place] [address] CBC with Differential (03/13/2020 3:37 AM CDT) Pathologist Sig nature WBC 7.20 4.20 - 10.70 [facility] 10*3/L [facility] RBC 4.88 4.26 - 5.52 [facility] 10*6/L [facility] HGB 13.2 12.2 - 16.4 [facility] g/dL [facility] HCT 42.7 38.4 - 49.3 % [facility] MCV 87.5 81.7 - 95.6 fL [facility] MCH 27.0 26.1 - 32.7 pg [facility] MCHC 30.9 (L) 31.2 - 35.0 [facility] g/dL [facility] RDW-SD 51.2 38.5 - 51.6 fL [facility] RDW-CV 16.0 (H) 12.1 - 15.4 % [facility] PLT 249 150 - 328 [facility] 10*3/L [facility] MPV 11.4 9.8 - 13.0 fL [facility] NRBC/100 WBC 0.0 0.0 - 10.0 /100 [facility] WBCs [facility] NRBC x10^3 <0.01 10*3/L [facility] GRAN MAT (NEUT) % 62.4 % [facility] IMM GRAN % 0.30 % [facility] LYMPH % 25.3 % [facility] MONO % 8.5 % [facility] EOS % 2.8 % [facility] BASO % 0.7 % [facility] GRAN MAT x10^3(ANC) 4.50 1.99 - 6.95 [facility] 10*3/uL HOSPITAL LABORATORY IMM GRAN x10^3 <0.03 0.00 - 0.06 [facility] 10*3/uL HOSPITAL LABORATORY LYMPH x10^3 1.82 1.09 - 3.23 [facility] 10*3/uL HOSPITAL LABORATORY MONO x10^3 0.61 0.36 - 1.02 [facility] 10*3/uL HOSPITAL LABORATORY EOS x10^3 0.20 0.06 - 0.53 [facility] 10*3/uL HOSPITAL LABORATORY BASO x10^3 0.05 0.01 - 0.09 [facility] 10*3/uL [facility] Specimen Blood - ARM, RIGHT Performing Organization Address [facility] Phone Number [facility] CLIA: [id number] [place] [address] POCT GLUCOSE (AUTOMATED) (03/12/2020 7:44 PM CDT) Pathologist Sig nature POCT GLU 175 (H) 70 - 110 mg/dL [facility] Specimen Blood Performing Organization Address [facility] Phone Number [facility] CLIA: [id number] [place] [address] POCT GLUCOSE (AUTOMATED) (03/12/2020 3:35 PM CDT) Pathologist Sig nature POCT GLU 144 (H) 70 - 110 mg/dL [facility] Specimen Blood Performing Organization Address [facility] [place] Phone Number [facility] CLIA: [id number] [place], [place] [address] LABORATORY [address] POCT GLUCOSE (AUTOMATED) (03/12/2020 10:57 AM CDT) Pathologist Sig nature POCT GLU 177 (H) 70 - 110 mg/dL [facility] Specimen Blood Performing Organization Address [facility] [place] Phone Number [facility] CLIA: [id number] [place], [place] [id number] LABORATORY [address] POCT GLUCOSE (AUTOMATED) (03/12/2020 7:36 AM CDT) Pathologist Sig nature POCT GLU 135 (H) 70 - 110 mg/dL [facility] Specimen Blood Performing Organization Address [facility] [place] Phone Number [facility] CLIA: [id number] [place] [address] ETHANOL (03/12/2020 4:26 AM CDT) Pathologist Sig nature ALCOHOL <10 mg/dL [facility] Specimen Blood - ARM, RIGHT Narrative Performed At <10 Negative [facility] 50-100 Toxic >100 Depression of [employer] ASBESTOS >400 Fatalities Reported Performing Organization Address [facility] Phone Number [facility] CLIA: [id number] [place] [address] Prothrombin Time / INR (03/12/2020 4:26 AM CDT) PROTIME PATIENT 13.4 12.0 - 14.7 [facility] Seconds [facility] INR 1.1Comment: Normal [facility] INR <1.1; Warfarin [facility] Therapeutic range LABORATORY 2.0 to 3.0 or 2.5 to 3.5, depending upon the indications. Specimen Blood - ARM, RIGHT Performing Organization Address [facility] Phone Number [facility] CLIA: [id number] [place] [address] Basic Metabolic Panel (NA, K, CL, CO2, GLUCOSE, BUN, CREATININE, CA) (03/12/2020 4:26 AM CDT) Pathologist Sig nature NA 137 135 - 145 [facility] mmol/L [facility] K 4.0 3.5 - 5.0 [facility] mmol/L [facility] CL 97 (L) 98 - 108 mmol/L [facility] CO2 TOTAL 35 (H) 23 - 31 mmol/L [facility] AGAP 5 2 - 16 [facility] BUN 12 7 - 23 mg/dL [facility] GLUCOSE 148 (H) 70 - 110 mg/dL [facility] CREATININE 0.60 0.60 - 1.25 [facility] mg/dL [facility] CALCIUM 8.9 8.6 - 10.6 [facility] mg/dL [facility] eGFR Calculation 140.4 mL/min/1.73m2 [facility] ([facility] Estonian) eGFR Calculation 170.2 mL/min/1.73m2 [facility] LABORATORY Specimen Blood - ARM, RIGHT Narrative Performed At Association of Glomerular Filtration Rate (GFR) [facility] and Staging of Kidney Disease* + [...] tests). Performing Organization Address City/State/Zipcode Phone Number [facility] CLIA: [id number] [place] [address] CBC with Differential (03/12/2020 4:26 AM CDT) [facility] WBC 8.73 4.20 - 10.70 [facility] 10*3/L [facility] RBC 5.00 4.26 - 5.52 [facility] 10*6/L [facility] HGB 13.6 12.2 - 16.4 [facility] g/dL [facility] HCT 44.0 38.4 - 49.3 % [facility] MCV 88.0 81.7 - 95.6 fL [facility] MCH 27.2 26.1 - 32.7 pg [facility] MCHC 30.9 (L) 31.2 - 35.0 [facility] g/dL [facility] RDW-SD 52.9 (H) 38.5 - 51.6 fL [facility] RDW-CV 16.4 (H) 12.1 - 15.4 % [facility] PLT 236 150 - 328 [facility] 10*3/L HOSPITAL LABORATORY MPV 10.8 9.8 - 13.0 fL [facility] NRBC/100 WBC 0.0 0.0 - 10.0 /100 [facility] WBCs [facility] NRBC x10^3 <0.01 10*3/L [facility] GRAN MAT (NEUT) % 66.6 % [facility] IMM GRAN % 0.30 % [facility] LYMPH % 23.0 % [facility] HOSPITAL LABORATORY MONO % 7.2 % [facility] EOS % 2.6 % [facility] BASO % 0.3 % [facility] GRAN MAT x10^3(ANC) 5.80 1.99 - 6.95 [facility] 10*3/uL [facility] LABORATORY IMM GRAN x10^3 0.03 0.00 - 0.06 [facility] 10*3/uL HOSPITAL LABORATORY LYMPH x10^3 2.01 1.09 - 3.23 [facility] 10*3/uL HOSPITAL LABORATORY MONO x10^3 0.63 0.36 - 1.02 [facility] 10*3/uL HOSPITAL LABORATORY EOS x10^3 0.23 0.06 - 0.53 [facility] 10*3/uL HOSPITAL LABORATORY BASO x10^3 0.03 0.01 - 0.09 [facility] 10*3/uL HOSPITAL LABORATORY Specimen Blood - ARM, RIGHT Performing Organization Address [facility] Phone Number [facility] CLIA: [id number] [place] [address] POCT GLUCOSE (AUTOMATED) (03/11/2020 8:12 PM CDT) Pathologist Sig nature POCT GLU 158 (H) 70 - 110 mg/dL [facility] LABORATORY Specimen Blood Performing Organization Address [facility] Phone Number [facility] CLIA: [id number] [place] [address] XR CHEST 1 VW COVID (03/11/2020 9:53 AM CDT) Specimen Narrative Performed At EXAM: XR CHEST 1 VW COVID PACS/VR/DOSE HISTORY: shortness of breath COMPARISON: None. FINDINGS: The heart and great vessels are normal and the lungs a re well expanded and clear. The tips of pacemaker electrodes lie in the rig ht atrium and right ventricle. Procedure Note [facility], Radiant Results Inft User - 2019 9:56 AM CDT EXAM: XR CHEST 1 VW COVID HISTORY: shortness of breath COMPARISON: None. FINDINGS: The heart and great vessels are normal a nd the lungs are well expanded and clear. The tips of pacemaker electrodes lie in the right atrium and right ventricle. Performing Organization Address [facility] Phone Number PACS/VR/DOSE COVID-19 ([facility] NOW RAPID TESTING) (03/11/2020 9:39 AM CDT) SARS-CoV-2 Rapid ID Not Detected Not Detected [facility] LABORATORY Specimen Swab - NASOPHARYNGEAL SWAB Narrative Performed At ID NOW COVID-19 Assay is an isothermal nucleic [facility] LABORATORY acid amplification test intended for the qualitative detection of nucleic acid from SARS-CoV-2 viral RNA in nasopharyngeal (MAT TESTER) specimens. It is used under Emergency Use Authorization (EUA) by FDA. The limit of detection (LOD) of the assay is 125 Genome Equivalents/mL. A positive result is indicative of the presence of SARS-CoV-2 RNA. Clinical correlation with patient history and other diagnostic information is necessary to determine patient infection status. A negative (Not Detected) result does not preclude SARS-CoV-2 infection. In patients with clinical symptoms and other tests that are consistent with SARS-CoV-2 infection, negative results should be treated as presumptive negative and a new specimen should be tested with alternative PCR molecular test. Invalid: Please collect a new specimen for repeat patient testing if clinically indicated. Performing Organization Address [facility]/Zipcode Phone Number [facility] CLIA: [id number] [place] [address] CBC WITH DIFF (03/11/2020 8:56 AM CDT) Pathologist Sig nora WBC 8.63 4.20 - 10.70 [facility] 10*3/L HOSPITAL LABORATORY RBC 5.03 4.26 - 5.52 [facility] 10*6/L [facility] LABOR[facility] HGB 13.6 12.2 - 16.4 [facility] g/dL HOSPITAL LABORATORY HCT 43.1 38.4 - 49.3 % [facility] MCV 85.7 81.7 - 95.6 fL [facility] MCH 27.0 26.1 - 32.7 pg [facility] MCHC 31.6 31.2 - 35.0 [facility] g/dL [facility] LAB[facility] RDW-SD 50.8 38.5 - 51.6 fL [facility] LABOR[facility] RDW-CV 16.3 (H) 12.1 - 15.4 % [facility] LABORATORY PLT 257 150 - 328 [facility] 10*3/L [facility] LABORATORY MPV 10.7 9.8 - 13.0 fL [facility] LAB[facility] NRBC/100 WBC 0.0 0.0 - 10.0 /100 [facility] WBCs [facility] LABORATORY NRBC x10^3 <0.01 10*3/L [facility] LABORATORY GRAN MAT (NEUT) % 68.7 % [facility] LAB[facility] IMM GRAN % 0.30 % [facility] LYMPH % 19.4 % [facility] MONO % 8.8 % [facility] EOS % 2.3 % [facility] LABOR[facility] BASO % 0.5 % [facility] LABORATORY GRAN MAT x10^3(ANC) 5.93 1.99 - 6.95 [facility] 10*3/uL [facility] LABORATORY IMM GRAN x10^3 0.03 0.00 - 0.06 [facility] 10*3/uL HOSPITAL LABORATORY LYMPH x10^3 1.67 1.09 - 3.23 [facility] 10*3/uL HOSPITAL LABORATORY MONO x10^3 0.76 0.36 - 1.02 [facility] 10*3/uL HOSPITAL LABORATORY EOS x10^3 0.20 0.06 - 0.53 [facility] 10*3/uL HOSPITAL LABORATORY BASO x10^3 0.04 0.01 - 0.09 [facility] 10*3/uL HOSPITAL LABORATORY Specimen Blood - VENOUS Performing Organization Address City/State/Zipcode Phone Number [facility] CLIA: [id number] [place] [address] LIPASE, SERUM (03/11/2020 8:56 AM CDT) Pathologist Sig nature LIPASE 137 0 - 220 U/L [facility] LABORATORY Specimen Blood - VENOUS Performing Organization Address City/State/Zipcode Phone Number [facility] CLIA: [id number] [place] [address] LABORATORY [address] [facility] COMP. METABOLIC PANEL (51092) (03/11/2020 8:56 AM CDT) Pathologist Sig nature NA 138 135 - 145 [facility] mmol/L [facility] LABORATORY K 3.7 3.5 - 5.0 [facility] mmol/L [facility] LABORATORY CL 98 98 - 108 mmol/L [facility] CO2 TOTAL 33 (H) 23 - 31 mmol/L [facility] LAB[facility] AGAP 7 2 - 16 [facility] LAB[facility] BUN 12 7 - 23 mg/dL [facility] GLUCOSE 174 (H) 70 - 110 mg/dL [facility] LAB[facility] CREATININE 0.60 0.60 - 1.25 [facility] mg/dL [facility] LABORATORY TOTAL BILI 0.2 0.1 - 1.1 mg/dL [facility] LAB[facility] CALCIUM 10.0 8.6 - 10.6 [facility] mg/dL [facility] LABORATORY T PROTEIN 6.6 6.3 - 8.2 g/dL [facility] LAB[facility] ALBUMIN 3.8 3.5 - 5.0 g/dL [facility] LAB[facility] ALK PHOS 48 34 - 122 U/L [facility] ALTv 89 (H) 5 - 50 U/L [facility] AST(SGOT) 38 13 - 40 U/L [facility] eGFR Calculation 140.4 mL/min/1.73m2 [facility] ([facility] LABORATORY Estonian) eGFR Calculation 170.2 mL/min/1.73m2 [facility] () [facility] LABORATORY Specimen Blood - VENOUS Narrative Performed At Association of Glomerular Filtration Rate (GFR) [facility] LABORATORY and Staging of Kidney Disease* + [...] abnormalities in imaging tests). Performing Organization Address [facility] Phone Number [facility] CLIA: [id number] [place] [address] PROTHROMBIN TIME / INR (03/11/2020 8:56 AM CDT) [facility] Signature PROTIME PATIENT 13.1 12.0 - 14.7 [facility] LABORATORY INR 1.0Comment: Normal [facility] INR <1.1; Warfarin [facility] Therapeutic range LABORATORY 2.0 to 3.0 or 2.5 to 3.5, depending upon the indications. Specimen Blood - VENOUS Performing Organization Address [facility] Phone Number [facility] CLIA: [id number] [place] [address] [address] aPTT (03/11/2020 8:56 AM CDT) [facility] Sig nature APTT Patient 24 23 - 38 Seconds [facility] LABORATORY Specimen Blood - VENOUS Narrative Performed At The [facility] patient population mean normal value [facility] LABORATORY for aPTT is 30 seconds. Performing Organization Address [facility] Phone Number [facility] CLIA: [id number] [place] [address] TROPONIN I (03/11/2020 8:56 AM CDT) Pathologist Sig nature TROPONIN I 0.019 <=0.034 ng/mL [facility] LABORATORY Specimen Blood - VENOUS Narrative Performed At Equal or Less than 0.034 ng/ml---Normal [facility] LABORAT[facility] Note: Cardiac troponin begins to [...] biotin. Performing Organization Address City/State/Zipcode Phone Number [facility] CLIA: [id number] [place] [address] documented in this encounter Visit Diagnoses Diagnosis Single subsegmental pulmonary embolism w ithout acute cor pulmonale - Primary SOB (shortness of breath) Shortness of breath Chest pain, unspecified type Coronary artery disease involving [place] coronary artery of [place] heart with angina pectoris Type 2 diabetes mellitus without complic ation, without long-term current use of insulin Essential hypertension Unspecified essential hypertension documented in this encounter Administered Medications Medication Order MAR Action Action Date Dose Rate Site apixaban (ELIQUIS) tablet 5 mg Given 03/13/2020 8:18 AM CDT 5 mg 5 mg, Oral, BID, First dose on Tue03/12/20 at 2000, Until Discontinued, Routine Given 03/12/2020 9:09 PM CDT 5 mg atorvastatin (LIPITOR) tablet 40 mg Given 03/12/2020 9:09 PM CDT 40 mg 40 mg, Oral, QHS, First dose on Tue03/11/20 at 2100, Until Discontinued Given 03/11/2020 8:22 PM CDT 40 mg budesonide-formoteroL (SYMBICORT) 160-4.5 Given 03/13/2020 8:01 AM CDT 2 Puffs mcg/actuation inhaler 2 Puff 2 Puff, Inhalation, BID, First dose on Tue03/11/20 at 2000, Until Discontinued, Routine Given 03/12/2020 7:36 PM CDT 2 Puffs Given 03/12/2020 7:13 AM CDT 2 Puffs clopidogreL (PLAVIX) tablet 75 mg Given 03/13/2020 8:18 AM CDT 75 mg 75 mg, Oral, DAILY, First dose on Tue03/12/20 at 0900, Until Discontinued, Routine Given 03/12/2020 8:07 AM CDT 75 mg furosemide (LASIX) tablet 40 mg Given 03/13/2020 8:18 AM CDT 40 mg 40 mg, Oral, DAILY, First dose on Tue03/12/20 at 0900, Until Discontinued, Routine Given 03/12/2020 8:08 AM CDT 40 mg lisinopriL (PRINIVIL,ZESTRIL) tablet 40 mg Given 03/13/2020 8:18 AM CDT 40 mg 40 mg, Oral, DAILY, First dose on Tue03/12/20 at 0900, Until Discontinued Given 03/12/2020 8:07 AM CDT 40 mg nicotine (NICODERM) 14 mg/24 hr patch 1 Given 03/12/2020 9:10 P M CDT 1 Patch Patch 1 Patch, Topical, Administer over 24 Hours, Q24H, First dose on Tue03/11/20 at 2200, Until Discontinued, Routine Given 03/11/2020 10:20 PM CDT 1 Patch Sliding Scale Insulin - Aspart Given 03/12/2020 9:10 PM 1 Units Left Upper (NOVOLOG) + Fsbg Testing CDT Arm-SC Subcutaneous, TID MEALS+HS, First dose on Tue03/11/20 at 1700, Until Discontinued, Routine Given 03/12/2020 11:10 AM CDT 1 Units Left Upper Arm-SC Medication Order MAR Action Action Date Dose Rate Site enoxaparin (LOVENOX) Given 03/11/2020 11:32 AM CDT 100 mg Abdomen-SC injection 100 mg 100 mg, Subcutaneous, ONCE, 1 dose, Tue03/11/20 at 1215, KERLINE enoxaparin (LOVENOX) injection 120 Given 03/12/2020 8:08 AM CDT 120 mg Abdomen-SC mg 120 mg (rounded from 122.5 mg = 1 mg/kg 122.5 kg), Subcutaneous, Q12H, 5 doses, First dose on Tue03/11/20 at 2000, Last dose on Tue03/13/20 at 2000, Routine Given 03/11/2020 8:23 PM CDT 120 mg Abdo men-SC warfarin (COUMADIN) tablet 5 mg Given 03/11/2020 11:32 AM CDT 5 mg 5 mg, Oral, ONCE NOW, 1 dose, Tu03/11/20 at 1215, KERLINE documented in this encounter Additional Health Concerns Infection Onset Date Last Indicated Resolved Time COVID-19 Rule Out 03/11/2020 03/11/2020 03/11/2020 10: 04 AM CDT documented as of this encounter Insurance Payer Benefit Plan Subscriber ID Effective Phone Address Typ e / Group Dates [facility] [place] [id number] 2018-Pres [phone] [facility] [address] ent [address] [place] [address] documented as of this encounter
--- OUTSIDE RECORDS SUMMARY | 2020-05-05 12:45 | XMS REPORT | Summary of Care ---
:1965 Author Organization [facility] - Health Address [address] [place] [address] Care Team Providers Name Role Phone Nic JOSEFINA Primary Care Provider Encounter Details Date Type Department Care Team Description 03/20/2020 Orders Only [facility] Doctor Unassigned, No [address] [facility] [place] [address] [address] [place] [address] Allergies Active Allergy Reactions Severity Noted Date Comments Azithromycin Swelling High 08/11/2018 Throat swells Metoprolol Other - See comments 07/11/2018 Lowers heart rate too low documented as of this encounter (statuses as of 04/17/2020) Medications Medication Sig Dispensed Refills Start Date [...] as needed unspecified type for Chest pain. apixaban (ELIQUIS) 5 Take 1 tablet by [...] as of this encounter (statuses as of 04/17/2020) Active Problems Problem Noted Date Pulmonary embolism [...] as of this encounter (statuses as of 04/17/2020) Immunizations Name Administration Dates Next Due Influenza [...] Treatment Date Type Specialty Care Team Description 04/25/2020 Office Visit Pulmonary Disease Mayela Funes DO [address] [place] [id number] 06/10/2020 Laboratory Only Cardiology Pacemaker/Icd, Adc 08/20/2020 Office Visit Cardiology Eunice Chang M D [address] [place] [address] 15 [phone] Health Maintenance Due Date Last Done Comments [...] of this encounter Implants Implanted Type Area Self Propelled Hot Mix Roller Operator Device Identifier Shelf Exp iration Model / Date Serial / L ot Pacemaker PACEMAKER documented as of this encounter Procedures Procedure Name Priority Date/Time Associated Diagnosis Comme nts VACCINATIONS - CONSENTS, Routine 03/20/2020 12:01 AM ELIGIBILITY, HISTORY CDT documented in this encounter Results Not on filedocumented in this encounter Insurance Payer Benefit Plan Subscriber ID Effective Phone Address Typ e / Group Dates ROSEANNA DAVIS [id number] 2018-08/03 [phone] [facility] H [facility] C /2020 [address] [address] ROSEANNA NEWELL. [id number] 2018-Pres [phone] [facility] H C I H [facility] ent [address] [place] [address] ROSEANNA CONDON [id number] 2019-Prese [phone] [facility] CARE nt [address] [place] [address] documented as of this encounter
--- OUTSIDE RECORDS SUMMARY | 2020-05-05 12:45 | XMS REPORT | Summary of Care ---
:1965 Author Organization [facility] Address [address] [place] [address] Care Team Providers Name Role Phone JOSEFINA Lucero Primary Care Provider Reason for Visit Reason Comments Refill Request Encounter Details Date Type Department Care Team Description 04/15/2020 Refill [facility] Ekta Riley FNP Refill Request [address] [place] [address] [place] [address] Allergies Active Allergy Reactions Severity Noted Date Comments Azithromycin Swelling High 08/11/2018 Throat swells Metoprolol Other - See comments 07/11/2018 Lowers heart rate too low documented as of this encounter (statuses as of 04/15/2020) Medications Medication Sig Dispensed Refills Start End Date Status Date albuterol 90 Inhale 2 Puffs 8.5 g 3 Ac tive mcg/actuation every 6 (six) 0 inhalerIndications: hours as needed SOB (shortness of for Wheezing or breath) on exertion Shortness of Breath. fluticasone Inhale 1 Puff 2 1 Each 11 Ac tive propion-salmeterol (two) times 0 (AIRDUO RESPICLICK) daily. 113-14 mcg/actuation AePBIndications: Dyspnea on exertion, Cigarette nicotine dependence without complication, Sleep-disordered breathing Pitavastatin Take 1 tablet 90 tablet 3 Act warren (LIVALO) 4 mg by mouth daily. 0 TabIndications: Mixed hyperlipidemia metformin ER 500 mg Take [...] 30 tablet 5 Active tabletIndications: by mouth daily. 0 Essential hypertension budesonide-formoter Inhale 2 Puffs 10.2 g 11 Active oL (SYMBICORT) 2 (two) times 0 160-4.5 daily. mcg/actuation inhalerIndications: Dyspnea on exertion, Cigarette nicotine dependence without complication, Sleep-disordered breathing nitroglycerin 0.4 Place 1 tablet 1 Bottle 5 Active mg sublingual under the 0 tabletIndications: tongue every 5 Chest pain, (five) minutes unspecified type as needed for Chest pain. apixaban (ELIQUIS) Take 1 tablet 60 tablet 11 Active 5 mg by mouth 2 0 tabletIndications: (two) times acute pulmonary daily. 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 0 21 furosemide 40 mg Take 1 tablet 30 tablet 5 Active tabletIndications: by mouth daily. 0 Peripheral edema furosemide 40 mg Take 40 mg by 0 04/15/20 Discontinued tablet mouth daily. 20 (Stephen r) documented as of this encounter (statuses as of 04/15/2020) Active Problems Problem Noted Date Pulmonary embolism [...] as of this encounter (statuses as of 04/15/2020) Immunizations Name Administration Dates Next Due Influenza [...] this encounter Miscellaneous Notes Telephone Encounter - Ekta Lucero FNP - 04/15/2020 1:55 PM CDTPlease let patient know that the refill is completed elephone Encounter - Lilian Wesley LVN - 04/15/2020 8:57 AM CDTVoice message received from patient requesting refill on Furosemide 40mg (1) tab by mouth daily. [facility] - 03/20/2020 LAST REFILL - 03/11/2020 NOV - None Request for refill routed to provider. documented in this encounter Plan of Treatment Date Type Specialty Care Team Description 04/25/2020 Office Visit Pulmonary Disease Mayela Funes, [address] [place] [address] [phone] 08/20/2020 Office Visit Cardiology Eunice Chang M D [address] [facility] [address] [place] [address] 15 [phone] Health Maintenance Due Date Last Done Comments [...] of this encounter Implants Implanted Type Area Brick Molder Hand Device Identifier Shelf Exp iration Model / Date Serial / L ot Pacemaker PACEMAKER documented as of this encounter Results Not on filedocumented in this encounter Visit Diagnoses Diagnosis Peripheral edema - Primary Edema documented in this encounter Insurance Payer Benefit Plan Subscriber ID Effective Phone Address Typ e / Group Dates [employer] [id number] 2018-08/03 [phone] [facility] H C I H C /2020 [address] [place] [address] [employer] [id number] 2018-Pres [phone] [address] [facility] H C I H C ent [address] [place] [address] ROSEANNA CONDON [id number] 2019-Prese [phone] PRIMARY CARE PRIMARY CARE nt [address] [place] [address] documented as of this encounter
--- OUTSIDE RECORDS SUMMARY | 2020-05-05 12:45 | XMS REPORT | Summary of Care ---
:1965 Author Organization [facility] Address [address] [place] [address] Care Team Providers Name Role Phone JOSEFINA Lucero Primary Care Provider Reason for Visit (Routine) Status Reason Specialty Diagnoses / Referred By Referred To Procedures Contact Contact Closed Vascular Sonography Diagnoses Claudication of both lower extremities Ekta Lucero FNP Procedures BILATERAL DUPLEX SCAN OF ARTERY BY VASCULAR LAB [address] [place] [address] Encounter Details Date Type Department Care Team Description 04/07/2020 Search Engine Optimizer Visit [facility] Irma Vale MD [facility] [address] [address] Claudication of both Cardiology- Pc, Adc Vascular Room 1 - lower extremities [address], [address] [place] [address] Allergies Active Allergy Reactions Severity Noted Date Comments Azithromycin Swelling High 08/11/2018 Throat swells Metoprolol Other - See comments 07/11/2018 Lowers heart rate too low documented as of this encounter (statuses as of 04/07/2020) Medications Medication Sig Dispensed Refills Start Date [...] as of this encounter (statuses as of 04/07/2020) Active Problems Problem Noted Date Pulmonary embolism [...] as of this encounter (statuses as of 04/07/2020) Immunizations Name Administration Dates Next Due Influenza [...] Treatment Date Type Specialty Care Team Description 04/15/2020 Laboratory Only Cardiology Pacemaker/Icd, Adc 04/25/2020 Office Visit Pulmonary Disease Mayela Funes DO [address] [place] [address] 08/20/2020 Office Visit Cardiology Eunice Chang M D [address] [facility] [address] [place], [place] [address] [phone] Health Maintenance Due Date Last Done Comments [...] of this encounter Implants Implanted Type Area Hot Tamale Man Device Identifier Shelf Exp iration Model / Date Serial / L ot Pacemaker PACEMAKER documented as of this encounter Results Not on filedocumented in this encounter Visit Diagnoses Diagnosis Claudication of both lower extremities documented in this encounter Insurance Payer Benefit Plan Subscriber ID Effective Phone Address Typ e / Group Dates [employer] [place] [employer] [place] [id number] 2018-Pres [phone] [facility] H C I H C ent [address] [place] [address] documented as of this encounter
--- OUTSIDE RECORDS SUMMARY | 2020-05-05 12:45 | XMS REPORT | Summary of Care ---
:1965 Author Organization [facility] Address [address] [place] [address] Care Team Providers Name Role Phone JOSEFINA Lucero Primary Care Provider Reason for Visit Reason Comments Refill Request Encounter Details Date Type Department Care Team Description 04/15/2020 Refill [facility] Ekta Riley FNP Refill Request [address] [place] [address] [place] [address] Allergies Active Allergy Reactions Severity Noted [...] this encounter Miscellaneous Notes Telephone Encounter - Lilian Wesley LVN - 04/15/2020 4:20 PM CDTPatient notified and informed that prescription refill has been sent to pharmacy. Telephone Encounter - Ekta Lucero FNP - [...] Visit Pulmonary Disease Mayela Funes DO [address] [place] [address] [phone] 08/20/2020 Office Visit Cardiology Eunice Chang M D [address] [place] [address] [place] [address] [phone] Health Maintenance Due Date Last Done Comments [...] of this encounter Implants Implanted Type Area Senior Hardware Engineer Device Identifier Shelf Exp iration Model / Date Serial / L ot Pacemaker PACEMAKER documented as of this encounter Results Not on filedocumented in this encounter Visit Diagnoses Diagnosis Peripheral edema - Primary Edema documented in this encounter Insurance Payer Benefit Plan Subscriber ID Effective Phone Address Typ e / Group Dates [employer] [id number] 2018-08/03 [phone] [facility] H C I H C /2020 [address] [address] ROSEANNA [place]. [place] [employer]. [id number] 2018-Pres [phone] [facility] H C I H C [place] [address] ROSEANNA CONDON [id number] 2019-Prese [phone] PRIMARY CARE PRIMARY CARE nt [address] [place] [address] documented as of this encounter
--- OUTSIDE RECORDS SUMMARY | 2020-05-05 12:46 | XMS REPORT | Summary of Care ---
:1965 Author Organization [facility] Address [address] [place] [address] Care Team Providers Name Role Phone Nic JOSEFINA Primary Care Provider Reason for Visit Reason Comments Orders Encounter Details Date Type Department Care Team Description 04/28/2020 Telephone [facility] ADC Pulmonary Mayela Funes DO Orders Clinic [address] Hannah Prince [address] [place] [address] [phone] Allergies Active Allergy Reactions Severity Noted Date Comments Azithromycin Swelling High 08/11/2018 Throat swells Metoprolol Other - See comments 07/11/2018 Lowers heart rate too low documented as of this encounter (statuses as of 04/28/2020) Medications Medication Sig Dispensed Refills Start Date [...] 0 02/07/2020 02/06/2021 Active chewable tablet mouth. furosemide 40 mg Take 1 tablet by 30 tablet 5 04/15/2020 Active tabletIndications: mouth daily. Peripheral edema documented as of this encounter (statuses as of 04/28/2020) Active Problems Problem Noted Date Pulmonary embolism [...] as of this encounter (statuses as of 04/28/2020) Immunizations Name Administration Dates Next Due Influenza [...] been in contact with No / Unsure 04/25/2020 9:31 AM CDT someone who was confirmed or suspected to have Coronavirus / COVID-19? documented as of this encounter Last Filed Vital Signs Not on filedocumented in this encounter Miscellaneous Notes Telephone Encounter - Cesar Muniz - 04/28/2020 12:33 PM CDTSOP calling in regards to CPAP machine. SOP states she was told by Dr. Funes she would be able to getCPAP machine for $200 and patient has questions in regards. Please advise. documented in this encounter Plan of Treatment Date Type Specialty Care Team Description 06/10/2020 Laboratory Only Cardiology Pacemaker/Icd, Adc 08/20/2020 Office Visit Cardiology Eunice Chang M D 146 [facility] [address] [place] [address] 775 15 [phone] 08/28/2020 Office Visit Pulmonary Disease Mayela Funes DO [address] [place] [address] Health Maintenance Due Date Last [...] of this encounter Implants Implanted Type Area Transcribing Operator Head Device Identifier Shelf Exp iration Model / Date Serial / L ot Pacemaker PACEMAKER documented as of this encounter Results Not on filedocumented in this encounter Insurance Payer Benefit Plan Subscriber ID Effective Phone Address Typ e / Group Dates [place] [place]NA [employer]. [id number] 2018-08/03 [phone] [address] [facility] H C I [facility] /2020 [address] [id number] ROSEANNA CONDON COShelby [id number] 2018-Pres [phone] [facility] [place] [address] [place] [address] ROSEANNA CONDON [id number] 2019-Prese [phone] [facility]IMARY C[facility] nt [address] [place] [address] documented as of this encounter
--- OUTSIDE RECORDS SUMMARY | 2020-05-05 12:46 | XMS REPORT | Summary of Care ---
:1965 Author Organization [facility] Address [address] [place] [address] Care Team Providers Name Role Phone Nic JOSEFINA Primary Care Provider Reason for Visit Reason Comments Orders Encounter Details Date Type Department Care Team Description 04/28/2020 Telephone [facility] ADC Pulmonary Mayela Funes DO Orders Clinic [address] Hannah Prince [address] [place] [phone] Allergies Active Allergy Reactions Severity Noted Date [...] this encounter Miscellaneous Notes Telephone Encounter - Sayra Ordoñez MA - 04/28/2020 3:47 PM CDTAttempted to contact patient/patients spouse, lvm for patient to return call @ [phone] elephone Encounter - Cesar Muniz - 04/28/2020 12:33 [...] Visit Cardiology Eunice Chang M D 146 [facility] [address] [place] [address] 77 15 [phone] 08/28/2020 Office Visit Pulmonary Disease Mayela Funes DO [address] [place] [address] Health Maintenance Due Date Last Done Comments [...] of this encounter Implants Implanted Type Area Pearl Cutter Device Identifier Shelf Exp iration Model / Date Serial / L ot Pacemaker PACEMAKER documented as of this encounter Results Not on filedocumented in this encounter Insurance Payer Benefit Plan Subscriber ID Effective Phone Address Typ e / Group Dates [employer] [employer] [place] [email or web address] [place] [id number] 2018-08/03 [phone] [address] [facility] H C I H C /[address] [place] [address] [place]. [id number] 2018-Pres [phone] [address] [facility] H C I [facility] C ent [address] [place] [address] ROSEANNA CONDON [id number] 2019-Prese [phone] PRIMARY CARE PRIMARY CARE nt [address] [place] [address] documented as of this encounter
--- OUTSIDE RECORDS SUMMARY | 2020-05-05 12:46 | XMS REPORT | Summary of Care ---
:1965 Author Organization [facility] Address [address] [place] [address] Care Team Providers Name Role Phone JOSEFINA Lucero Primary Care Provider Reason for Visit Reason Comments Follow-up 6 months (Routine) Status Reason Specialty Diagnoses / Referred By Referred To Procedures Contact Contact Closed Pulmonary Disease Diagnoses Dyspnea on exertion SOB (shortness of breath) on exertion Pulmonary embolism, unspecified chronicity, unspecified pulmonary embolism type, unspecified whether acute cor pulmonale present Ekta Lucero FNP Procedures CONSULT/REFERRAL PULMONARY [address] [place] [address] Encounter Details Date Type Department Care Team Description 04/25/2020 Office Visit [facility] ADC Mayela Funes DO Dyspnea on exertion (Primary Dx); Pulmonary Clinic [address] [place] [address] Morbid obesity; [address] [place] [address] Dr. [facility] Chronic diastolic heart failure; [address] [place], [place] BRIDGET (obstructive sleep apnea ); [place] [address] Acute pulmonary embolism without acute c or pulmonale, unspecified pulmonary embolism type [id number] Allergies Active Allergy Reactions Severity Noted Date Comments Azithromycin Swelling High 08/11/2018 Throat swells Metoprolol Other - See comments 07/11/2018 Lowers heart rate too low documented as of this encounter (statuses as of 04/25/2020) Medications Medication Sig Dispensed Refills Start Date [...] as of this encounter (statuses as of 04/25/2020) Active Problems Problem Noted Date Pulmonary embolism [...] as of this encounter (statuses as of 04/25/2020) Immunizations Name Administration Dates Next Due Influenza [...] Sign Reading Time Taken Comments Blood Pressure 127/79 04/25/2020 10:08 AM CDT Pulse 76 04/25/2020 10:08 AM CDT Temperature - - Respiratory Rate 22 04/25/2020 10:08 AM CDT Oxygen Saturation 96% 04/25/2020 10:08 AM CDT Inhaled Oxygen Concentration - - Weight 122.9 kg (271 lb) 04/25/2020 10:08 AM CDT Height 167.6 cm (5' 6") 04/25/2020 10:08 AM CDT Body Mass Index 43.74 04/25/2020 10:08 AM CDT documented in this encounter Progress Notes Mayela Funes, - 04/25/2020 9:40 AM CDT [facility] Interventional Pulmonology Clinic Chief Complaint: Follow up for dyspnea History of Present Illness: Juan Miguel Langston is a 54 year old male here for follow up of dyspnea. Since last visit, symptoms are about the same. Get short of breath with exertion. Can go about 20feet before he gets short of breath. Improved with rest. Also has shortness of breath with laying down. Does have leg swelling. Does have improvement with Symbicort and Pro Air. In interval diagnosed with PE and is on Elaquis. Past Medical History: has a past medical history of Arthritis, CAD (coronary artery disease), Diabetes mellitus, Heart murmur, HLD (hyperlipidemia), HTN (hypertension), Obesity (BMI 30.0-34.9), Pacemaker, PE (pulmonary thromboembolism), Sinus pause, and Tobacco abuse. Past Surgical History: has a past surgical history that includes 12824 - DC RIGHT HEART CATH O2 SATURATION & CARDIAC OUTPUT. Family History: family history includes Coronary Heart Disease in his mother; Diabetes in his maternal grandmother. Social History: reports that he has been smoking. He has a 6.50 pack-year smoking history. He has quit using smokeless tobacco. He reports previous drug use. Drug: Marijuana. He reports that he does not drink alcohol. Review of Systems: Review of Systems Constitutional: Negative. HENT: Negative. Eyes: Negative. Respiratory: Positive for cough and shortness of breath. Cardiovascular: Negative. Gastrointestinal: Negative. Genitourinary: Negative. Musculoskeletal: Negative. Skin: Negative. Neurological: Negative. Psychiatric/Behavioral: Negative. Endocrine: Endocrine negative Objective: BP 127/79 (BP Location: Left arm, Patient Position: Sitting, BP CUFF SIZE: Adult Large) | Pulse 76| Resp 22 | Ht 5' 6" (1.676 m) | Wt 271 lb (122.9 kg) | SpO2 96% | BMI 43.74 kg/m Physical Exam Constitutional: He is oriented [...] normal. Judgment and thought content normal. Labs/Studies: PFT normal spirometry and lung volumes CT thorax 03/02/2020: FINDINGS: Thrombus is present within the right lower lobe pulmonary artery measuring 3.5 centimeterslength. Small amount of right upper lobe pulmonary artery thrombus. No thrombus is seen within the main, right main, left main and left pulmonary arteries A thoracic aortic aneurysm is not noted. A pleural effusion is not seen. A pericardial effusion is not seen. A lung consolidation is not present. IMPRESSION: Right pulmonary emboli Signed By: Fitz Rachel MD Signed AT: 03/02/20 9609 Assessment: ICD-10-CM ICD-9-CM 1. Dyspnea on exertion R06.00 786.09 2. Morbid obesity E66.01 278.01 3. Chronic diastolic heart failure I50.32 428.32 4. BRIDGET (obstructive sleep apnea) G47.33 327.23 5. Acute pulmonary embolism without acute cor pulmonale, unspecified pulmonary embolism type [id number] Plan: 1. Will c/w Albuterol and Symbicort given improvement although no evidence of COPD 2. Discussed importance of weight loss with patient 3. Given county patient, cannot get CPAP right now. If patient is able to get about $200 saved, we will try to get him a refurbished machine through [facility] online 4. Discussed weight loss 5. Discussed salt restriction 6. Eliquis for three months 7. Follow up 3-4 months documented in this encounter Plan of Treatment Date Type Specialty Care Team Description 06/10/2020 Laboratory Only Cardiology Pacemaker/Icd, Adc 08/20/2020 Office Visit Cardiology Eunice Chang M D [address] [place] [address] [phone] 08/28/2020 Office Visit Pulmonary Disease Mayela Funes DO [address] [place] [address] Health Maintenance Due Date Last [...] of this encounter Implants Implanted Type Area Stone Gang Sawyer Device Identifier Shelf Exp iration Model / Date Serial / L ot Pacemaker PACEMAKER documented as of this encounter Results Not on filedocumented in this encounter Visit Diagnoses Diagnosis Dyspnea on exertion - Primary Other dyspnea and respiratory abnormalit y Morbid obesity Chronic diastolic heart failure BRIDGET (obstructive sleep apnea) Obstructive sleep apnea (adult) (pediatr ic) Acute pulmonary embolism without acute c or pulmonale, unspecified pulmonary embolism type documented in this encounter
--- OUTSIDE RECORDS SUMMARY | 2020-05-05 12:46 | XMS REPORT | Summary of Care ---
:1965 Author Organization [facility] Address [address] [place] [address] Care Team Providers Name Role Phone JOSEFINA [...] Ekta Lucero FNP Procedures CONSULT/REFERRAL PULMONARY [address] [place] [address] Encounter Details Date Type Department Care Team Description 04/25/2020 Office Visit [facility] ADC Mayela Funes DO Dyspnea on exertion (Primary Dx); Pulmonary Clinic [address] [place] [address] Morbid obesity; [address] [place] [address] Dr. [facility] Chronic diastolic heart failure; [address] [place], [place] BRIDGET (obstructive sleep apnea ); [place] [address] Acute pulmonary embolism without acute c or pulmonale, unspecified pulmonary embolism type [id number] Allergies Active Allergy Reactions Severity Noted Date [...] Mayela Funes, - 04/25/2020 9:40 AM CDT [facility] Interventional Pulmonology Clinic Chief Complaint: Follow [...] has a past surgical history that includes 29561 - ME RIGHT HEART CATH O2 SATURATION & CARDIAC [...] By: Fitz Rachel MD Signed AT: 03/02/20 0630 Assessment: ICD-10-CM ICD-9-CM 1. Dyspnea on exertion R06.00 786.09 2. Morbid obesity E66.01 278.01 3. Chronic diastolic heart failure I50.32 428.32 4. BRIDGET (obstructive sleep apnea) G47.33 327.23 5. Acute pulmonary embolism without acute cor pulmonale, unspecified pulmonary embolism type [id number] Plan: 1. Will c/w Albuterol and Symbicort [...] Office Visit Cardiology Eunice Chang M D [address] [place] [address] 15 [phone] 08/28/2020 Office Visit Pulmonary Disease Mayela Funes DO [address] [place] [address] Health Maintenance Due Date Last [...] of this encounter Implants Implanted Type Area Pants Maker Device Identifier Shelf Exp iration Model / [...]
--- OUTSIDE RECORDS SUMMARY | 2020-05-05 12:46 | XMS REPORT | Summary of Care ---
:1965 Author Organization [facility] Address [address] [place] [address] Care Team Providers Name Role Phone Nic JOSEFINA Primary Care Provider Reason for Visit Reason Comments Orders Encounter Details Date Type Department Care Team Description 04/28/2020 Telephone [facility] ADC Pulmonary Mayela Funes DO Orders Clinic [address] Hannah Prince [address] [place] [address] [phone] Allergies Active Allergy Reactions Severity Noted Date Comments Azithromycin Swelling High 08/11/2018 Throat swells Metoprolol Other - See comments 07/11/2018 Lowers heart rate too low documented as of this encounter (statuses as of 04/29/2020) Medications Medication Sig Dispensed Refills Start Date [...] as of this encounter (statuses as of 04/29/2020) Active Problems Problem Noted Date Pulmonary embolism [...] as of this encounter (statuses as of 04/29/2020) Immunizations Name Administration Dates Next Due Influenza [...] this encounter Miscellaneous Notes Telephone Encounter - Mayela Funes DO - 04/29/2020 12:15 PM CDTWould recommend Respironics M Series DS500 REMstar Auto CPAP w/ CFLEX, which is $249 through [facility] online. If patient is interested, we can send a prescription over to them. elephone Encounter - Sayra Ordoñez MA - 04/28/2020 3:47 PM CDTAttempted to contact patient/patients spouse, lvm for patient to return call @ [phone] signed by Sayra Ordoñez MA at 04/28/2020 3:47 PM CDTTelephone Encounter - Cesar Muniz - 04/28/2020 12:33 [...] Visit Cardiology Eunice Chang M D 146 [facility] [address] [place], [place] [address] [phone] 08/28/2020 Office Visit Pulmonary Disease Mayela Funes, [address] [place] [address] Health Maintenance Due Date Last [...] of this encounter Implants Implanted Type Area Music Department Chair Device Identifier Shelf Exp iration Model / Date Serial / L ot Pacemaker PACEMAKER documented as of this encounter Results Not on filedocumented in this encounter Insurance Payer Benefit Plan Subscriber ID Effective Phone Address Typ e / Group Dates [employer] [place] [id number] 2018-08/03 [id number] [facility] H C I H C /[address] [place] [address] [place] [place] [id number] 2018-Pres [id number] [facility] H C I H C ent [address] [place] [address] ROSEANNA CONDON [id number] 2019-Prese [phone] PRIMARY CARE PRIMARY CARE nt [address] [place] [address] documented as of this encounter
[2020-05-05] MEDS ORDERED: APIXABAN 5 MG TABLET PO ONE (13:15)
[2020-05-05] MEDS ORDERED: ASPIRIN 81 MG CHEWABLE TABLET ONE (13:20)
[2020-05-05] MEDS ORDERED: MORPHINE 4 MG/ML SYR ONE (13:21)
[2020-05-05 13:22] LABS: Absolute Lymphocytes (CBC) 1.4 K/uL (0.7-4.9); Basophils % 0.6 % (0-1.3); Hematocrit 39.8 % (39.6-49.0); Lymphocytes % 17.4 % (15.3-44.8); MPV 9.8 fL (7.6-11.3)
[2020-05-05 13:23] LABS: Protime INR 1.16
[2020-05-05 13:45] LABS: ALT/SGPT 102 U/L (12-78); AST/SGOT 47 U/L (15-37); Albumin 3.5 g/dL (3.4-5.0); Alkaline Phosphatase 49 U/L (45-117); BUN Blood Urea Nitrogen 16 mg/dL (7-18); Bicarbonate 31 mmol/L (21-32); Bilirubin Direct < 0.1 mg/dL (0-0.2); Bilirubin Total 0.3 mg/dL (0.2-1.0); Glucose Level 242 mg/dL (74-106); Magnesium 1.7 mg/dL (1.8-2.4); NT PRO-BNP 33 pg/mL (<125); Potassium 3.8 mmol/L (3.5-5.1); Protein, Total 6.9 g/dL (6.4-8.2); Sodium Level 139 mmol/L (136-145); Troponin (Emerg Dept Use Only) < 0.02 ng/mL (0.0-0.045)
--- NOTE | 2020-05-05 13:49 | RAD REPORT ---
EXAM DESCRIPTION: RAD - Chest Single View - 05/05/2020 1:41 pm CLINICAL HISTORY: CHEST PAIN COMPARISON: March 2020 TECHNIQUE: AP portable chest image was obtained 05/05/2020 1:41 pm . FINDINGS: Lungs are clear. Heart and vasculature are normal. No measurable pleural effusion and no p neumothorax. No acute bony abnormality seen. No acute aortic findings suspected. IMPRESSION: No acute cardiopulmonary process. No significant change from comparison
--- NOTE | 2020-05-05 14:05 | EDPHYS ---
Physician Documentation [facility] Name: Juan Miguel Langston Age: 54 yrs Sex: Male : 1965 Arrival Date: 05/05/2020 Time: 12:39 Bed 4 Private MD: ED Physician Lenard Rosario HPI: 05/05 14:04 This 54 yrs old Male presents to ER via Ambulatory with complaints of Chest jr8 Pain. 14:05 This 54 yrs old Male presents to ER via Ambulatory with complaints of Chest jr8 Pain. 14:04 54 y/o m presents to ED c/o sharp, sternal chest pain radiating to L shoulder x 3 jr8 hours. The pt reports a history of an [place] 03/2019 and pacemaker placement on 02/2020. Reports taking nitro SL x 3 at home with no relief. States that the pain feels similar to his previous [place]. Currently takes Eliquis. Denies SOB, cough, fever, or any other symptoms. . 14:05 The patient or guardian reports chest pain that is located primarily in the substernal jr8 area. Onset: acutely, today. The pain does not radiate. Associated signs and symptoms: The patient has no apparent associated signs or symptoms. The chest pain is described as a pressure. Duration: The patient or guardian reports a single episode, that is still ongoing. Severity of pain: At its worst the pain was moderate in the emergency department the pain is unchanged. The patient has experienced similar episodes in the past, a few times. The patient has not recently seen a physician. Historical: - Allergies: 12:48 Azithromycin; sv 12:48 Beta-Blockers (Beta-Adrenergic Bloc; sv 12:48 Metoprolol Tartrate; sv - PMHx: 12:48 Diabetes - NIDDM; Angina; High Cholesterol; COPD; Hypertension; Myocardial infarction; sv Sleep Apnea; - PSHx: 12:48 pacemaker; sv - Immunization history:: Adult Immunizations unknown. - Social history:: Smoking status: Patient reports the use of cigarette tobacco products, smokes one pack cigarettes per day. ROS: 14:05 Eyes: Negative for injury, pain, redness, and discharge, ENT: Negative for injury, jr8 pain, and discharge, Neck: Negative for injury, pain, and swelling, Respiratory: Negative for shortness of breath, cough, wheezing, and pleuritic chest pain, Abdomen/GI: Negative for abdominal pain, nausea, vomiting, diarrhea, and constipation, Back: Negative for injury and pain, MS/Extremity: Negative for injury and deformity, Skin: Negative for injury, rash, and discoloration, Neuro: Negative for headache, weakness, numbness, tingling, and seizure. 14:05 Cardiovascular: Positive for chest pain, Negative for edema, orthopnea, palpitations, paroxysmal nocturnal dyspnea. Exam: 14:05 Eyes: Pupils equal round and reactive to light, extra-ocular motions intact. Lids and jr8 lashes normal. Conjunctiva and sclera are non-icteric and not injected. Cornea within normal limits. Periorbital areas with no swelling, redness, or edema. ENT: Nares patent. No nasal discharge, no septal abnormalities noted. Tympanic membranes are normal and external auditory canals are clear. Oropharynx with no redness, swelling, or masses, exudates, or evidence of obstruction, uvula midline. Mucous membranes moist. Neck: Trachea midline, no thyromegaly or masses palpated, and no cervical lymphadenopathy. Supple, full range of motion without nuchal rigidity, or vertebral point tenderness. No Meningismus. Cardiovascular: Regular rate and rhythm with a normal S1 and S2. No gallops, murmurs, or rubs. Normal PMI, no JVD. No pulse deficits. Respiratory: Lungs have equal breath sounds bilaterally, clear to auscultation and percussion. No rales, rhonchi or wheezes noted. No increased work of breathing, no retractions or nasal flaring. Abdomen/GI: Soft, non-tender, with normal bowel sounds. No distension or tympany. No guarding or rebound. No evidence of tenderness throughout. Back: No spinal tenderness. No costovertebral tenderness. Full range of motion. Skin: Warm, dry with normal turgor. Normal color with no rashes, no lesions, and no evidence of cellulitis. MS/ Extremity: Pulses equal, no cyanosis. Neurovascular intact. Full, normal range of motion. Neuro: Awake and alert, GCS 15, oriented to person, place, time, and situation. Cranial nerves II-XII grossly intact. Motor strength 5/5 in all extremities. Sensory grossly intact. Cerebellar exam normal. Normal gait. 14:05 ECG was reviewed by the Attending Physician. Vital Signs: 12:46 BP 132 / 82; Pulse 90; Resp 26; Temp 99.1; Pulse Ox 100% ; sv 13:14 BP 138 / 67; Pulse 95; Resp 18; Pulse Ox 95% ; Pain 10/10; jl7 14:34 BP 121 / 54; Pulse 94; Resp 20; Pulse Ox 97% on R/A; mt 15:05 BP 135 / 80; Pulse 91; Resp 17; Pulse Ox 98% ; jl7 MDM: 05/05 12:59 Order name: Basic Metabolic Panel; Complete Time: 13:52 mt 05/05 12:59 Order name: CBC with Diff; Complete Time: 13:33 mt 05/05 12:59 Order name: LFT's; Complete Time: 13:52 mt 05/05 12:59 Order name: Magnesium; Complete Time: 13:52 mt 05/05 12:59 Order name: NT PRO-BNP; Complete Time: 13:52 mt 05/05 12:59 Order name: PT-INR; Complete Time: 13:33 mt 05/05 12:59 Order name: Troponin (emerg Dept Use Only); Complete Time: 13:52 mt 05/05 14:30 Order name: Basic Metabolic Panel EDMS 05/05 14:30 Order name: Basic Metabolic Panel EDMS 05/05 14:30 Order name: CBC with Automated Diff EDMS 05/05 14:30 Order name: CBC with Automated Diff EDMS 05/05 14:30 Order name: Lipid Profile EDMS 05/05 14:30 Order name: Lipid Profile EDMS 05/05 14:30 Order name: Troponin I EDMS 05/05 12:59 Order name: XRAY Chest (1 view); Complete Time: 13:52 mt 05/05 12:59 Order name: EKG; Complete Time: 12:59 mt 05/05 12:59 Order name: Cardiac monitoring; Complete Time: 12:59 mt 05/05 12:59 Order name: EKG - Nurse/Tech; Complete Time: 12:59 mt 05/05 12:59 Order name: IV Saline Lock; Complete Time: 12:59 mt 05/05 12:59 Order name: Labs collected and sent; Complete Time: 12:59 mt 05/05 12:59 Order name: O2 Per Protocol; Complete Time: 12:59 mt 05/05 12:59 Order name: O2 Sat Monitoring; Complete Time: 12:59 mt 05/05 14:30 Order name: Heart Healthy [facility] 05/05 14:30 Order name: Echo with Doppler [facility] 05/05 14:30 Order name: EKG Electrocardiogram [facility] 05/05 14:30 Order name: EKG Electrocardiogram [facility] 05/05 14:30 Order name: Troponin I [facility] MDM: 12:59 Patient medically screened. jr8 14:08 The patient was given aspirin in the Emergency Department. Data reviewed: vital signs, jr8 nurses notes, lab test result(s), EKG, radiologic studies, plain films. Data interpreted: Pulse oximetry: on room air is 95 %. Interpretation: normal. Counseling: I had a detailed discussion with the patient and/or guardian regarding: the historical points, exam findings, and any diagnostic results supporting the discharge/admit diagnosis, lab results, radiology results, the need for further work-up and treatment in the hospital. ED course: Dr. Argueta admitting patient . 05/05 12:59 Order name: Basic Metabolic Panel; Complete Time: 13:52 mt 05/05 12:59 Order name: CBC with Diff; Complete Time: 13:33 mt 05/05 12:59 Order name: LFT's; Complete Time: 13:52 mt 05/05 12:59 Order name: Magnesium; Complete Time: 13:52 mt 05/05 12:59 Order name: NT PRO-BNP; Complete Time: 13:52 mt 05/05 12:59 Order name: PT-INR; Complete Time: 13:33 mt 05/05 12:59 Order name: Troponin (emerg Dept Use Only); Complete Time: 13:52 mt 05/05 14:30 Order name: Basic Metabolic Panel [facility] 05/05 14:30 Order name: Basic Metabolic Panel [facility] 05/05 14:30 Order name: CBC with Automated Diff [facility] 05/05 14:30 Order name: CBC with Automated Diff [facility] 05/05 14:30 Order name: Lipid Profile [facility] 05/05 14:30 Order name: Lipid Profile [facility] 05/05 14:30 Order name: Troponin I [facility] 05/05 12:59 Order name: XRAY Chest (1 view); Complete Time: 13:52 mt 05/05 12:59 Order name: EKG; Complete Time: 12:59 mt 05/05 12:59 Order name: Cardiac monitoring; Complete Time: 12:59 mt 05/05 12:59 Order name: EKG - Nurse/Tech; Complete Time: 12:59 mt 05/05 12:59 Order name: IV Saline Lock; Complete Time: 12:59 mt 05/05 12:59 Order name: Labs collected and sent; Complete Time: 12:59 mt 05/05 12:59 Order name: O2 Per Protocol; Complete Time: 12:59 mt 05/05 12:59 Order name: O2 Sat Monitoring; Complete Time: 12:59 mt 05/05 14:30 Order name: Heart Healthy [facility] 05/05 14:30 Order name: Echo with Doppler ED[facility] 05/05 14:30 Order name: EKG Electrocardiogram [facility] 05/05 14:30 Order name: EKG Electrocardiogram [facility] 05/05 14:30 Order name: Troponin I [facility] EC:05 Rate is 100 beats/min. Rhythm is regular, Sinus Rhythm. QRS Morgan is Normal. AL interval jr8 is normal at 150 msec. QRS interval is normal at 94 msec. QT interval is normal at 336 msec. No Q waves. T waves are Inverted in leads II, III, aVF, V5, V6. ST Segment is depressed in leads II, III, aVF, V5, V6, 1-2mm. Clinical impression: Cardiac ischemia. Interpreted by me. Reviewed by me. Administered Medications: 13:07 Drug: morphine 4 mg Route: IVP; Site: left antecubital; jl7 13:30 Follow up: Response: No adverse reaction; Pain is decreased jl7 13:14 Drug: Aspirin Chewable Tablet 324 mg Route: PO; jl7 15:05 Follow up: Response: No adverse reaction jl7 15:04 Drug: Eliquis 5 mg Route: PO; jl7 15:05 Follow up: Response: No adverse reaction jl7 Disposition: 05/06 06:25 Co-signature as Attending Physician, Lenard Rosario MD I agree with the assessment and rambo plan of care. Disposition: 05/05/20 14:05 Hospitalization ordered by Jonathan Argueta for Observation. Preliminary diagnosis are Unstable angina, Abnormal electrocardiogram [ECG] [EKG]. - Bed requested for Telemetry/MedSurg (observation). - Status is Observation. hb - Condition is Stable. - Problem is new. - Symptoms have improved. Signatures: Dispatcher [employer] EDMS Tawana Alfaro Stephanie, RN RN sv Lenard Rosario MD MD cha Roszak, Josh, PA PA jr8 Kym Jim RN RN Redd Hunt RN RN jlRosa Mendoza mt Corrections: (The following items were deleted from the chart) 05/05 14:05 14:05 Hospitalization Ordered by Jonathan Argueta MD for Observation. Preliminary jr8 diagnosis is Unstable angina. Bed requested for Telemetry/MedSurg (observation). Status is Observation. Condition is Stable. Problem is new. Symptoms have improved. jr8 15:40 14:05 05/05/2020 14:05 Hospitalization Ordered by Jonathan Argueta MD for Observation. bd Preliminary diagnosis is Unstable angina; Abnormal electrocardiogram [ECG] [EKG]. Bed requested for Telemetry/MedSurg (observation). Status is Observation. Condition is Stable. Problem is new. Symptoms have improved. jr8 16:21 15:40 05/05/2020 14:05 Hospitalization Ordered by Jonathan Argueta MD for Observation. hb Preliminary diagnosis is Unstable angina; Abnormal electrocardiogram [ECG] [EKG]. Bed requested for Telemetry/MedSurg (observation). Status is Observation. Condition is Stable. Problem is new. Symptoms have improved. bd
--- NOTE | 2020-05-05 14:05 | ER ---
Nurse's Notes [facility] Name: Juan Miguel Langston Age: 54 yrs Sex: Male : 1965 Arrival Date: 05/05/2020 Time: 12:39 Bed 4 Private MD: Diagnosis: Unstable angina;Abnormal electrocardiogram [ECG] [EKG] Presentation: 05/05 12:46 Chief complaint: Patient states: midsternal chest pain that radiation to the left arm x sv 3 hours. Coronavirus screen: Client denies travel out of the [place] in the last 14 days. At this time, the client does not indicate any symptoms associated with coronavirus-19. Ebola Screen: No symptoms or risks identified at this time. Initial Sepsis Screen: Does the patient meet any 2 criteria? Yes Does the patient have a suspected source of infection? No. Patient's initial sepsis screen is negative. Risk Assessment: Do you want to hurt yourself or someone else? Patient reports no desire to harm self or others. Onset of symptoms was May 05, 2020. 12:46 Method Of Arrival: Ambulatory sv 12:46 Acuity: DESTINY 2 sv Triage Assessment: 12:46 General: Appears in no apparent distress. uncomfortable, Behavior is calm, cooperative, sv appropriate for age. Pain: Complains of pain in chest Pain radiates to left arm. Neuro: Level of Consciousness is awake, alert, obeys commands, Oriented to person, place, time, situation, Moves all extremities. Full function. Respiratory: Respiratory effort is even, unlabored, Respiratory pattern is tachypnea. Historical: - Allergies: 12:48 Azithromycin; sv 12:48 Beta-Blockers (Beta-Adrenergic Bloc; sv 12:48 Metoprolol Tartrate; sv - PMHx: 12:48 Diabetes - NIDDM; Angina; High Cholesterol; COPD; Hypertension; Myocardial infarction; sv Sleep Apnea; - PSHx: 12:48 pacemaker; sv - Immunization history:: Adult Immunizations unknown. - Social history:: Smoking status: Patient reports the use of cigarette tobacco products, smokes one pack cigarettes per day. Screenin:00 Abuse screen: Denies threats or abuse. Denies injuries from another. Nutritional jl7 screening: No deficits noted. Tuberculosis screening: No symptoms or risk factors identified. Fall Risk IV access (20 points). Total [place] Fall Scale indicates No Risk (0-24 pts). Assessment: 13:00 General: Appears in no apparent distress. uncomfortable, Behavior is calm, cooperative. jl7 Pain: Complains of pain in chest Pain radiates to left arm Pain currently is 10 out of 10 on a pain scale. Quality of pain is described as sharp, Pain began years ago. Is continuous. Neuro: Level of Consciousness is awake, alert, obeys commands, Oriented to person, place, time, situation. Cardiovascular: Heart tones present Patient's skin is warm and dry. Respiratory: Airway is patent Respiratory effort is even, unlabored, Respiratory pattern is regular, symmetrical. Derm: Skin is pink, warm \T\ dry. 14:00 Reassessment: Patient appears in no apparent distress at this time. Patient and/or jl7 family updated on plan of care and expected duration. Pain level reassessed. Patient is alert, oriented x 3, equal unlabored respirations, skin warm/dry/pink. 15:00 Reassessment: Patient appears in no apparent distress at this time. Patient and/or jl7 family updated on plan of care and expected duration. Pain level reassessed. Patient is alert, oriented x 3, equal unlabored respirations, skin warm/dry/pink. Vital Signs: 12:46 BP 132 / 82; Pulse 90; Resp 26; Temp 99.1; Pulse Ox 100% ; sv 13:14 BP 138 / 67; Pulse 95; Resp 18; Pulse Ox 95% ; Pain 10/10; jl7 14:34 BP 121 / 54; Pulse 94; Resp 20; Pulse Ox 97% on R/A; mt 15:05 BP 135 / 80; Pulse 91; Resp 17; Pulse Ox 98% ; jl7 ED Course: 12:39 Patient arrived in ED. ds1 12:46 EKG completed in triage. Results shown to MD. sv 12:47 Triage completed. sv 12:48 Arm band placed on. sv 12:58 Inserted saline lock: 20 gauge in left antecubital area, using aseptic technique. Blood mt collected. 12:59 Rigoberto Godoy PA is PHCP. jr8 12:59 Lenard Rosario MD is Attending Physician. jr8 13:00 Patient has correct armband on for positive identification. Bed in low position. Call jl7 light in reach. Side rails up X 1. sonogram technician on. Pulse ox on. NIBP on. 13:00 Patient maintains SpO2 saturation greater than 95% on room air. jl7 13:00 Initial lab(s) drawn, by ED staff, sent to lab. jl7 13:05 Redd Hunt, RN is Primary Nurse. jl7 13:42 XRAY Chest (1 view) In Process Unspecified. EDMS 14:02 Jonathan Argueta MD is Hospitalizing Provider. jr8 16:06 No provider procedures requiring assistance completed. Patient admitted, IV remains in jl7 place. intact, No redness/swelling at site. Administered Medications: 13:07 Drug: morphine 4 mg Route: IVP; Site: left antecubital; jl7 13:30 Follow up: Response: No adverse reaction; Pain is decreased jl7 13:14 Drug: Aspirin Chewable Tablet 324 mg Route: PO; jl7 15:05 Follow up: Response: No adverse reaction jl7 15:04 Drug: Eliquis 5 mg Route: PO; jl7 15:05 Follow up: Response: No adverse reaction jl7 Outcome: 14:05 Decision to Hospitalize by Provider. jr8 16:06 Admitted to Tele accompanied by tech, via wheelchair, room 208, with chart, Report jl7 called to NICCI Stoner 16:06 Condition: stable 16:06 Discharge instructions given to patient, family, Instructed on the need for admit, Demonstrated understanding of instructions. 16:21 Patient left the ED. Signatures: Dispatcher [employer] EDNilda Nguyen RN RN sv Sanford, Demi ds1 Rigoberto Godoy PA PA Kym Remy RN RN hb Leal, Jahala, Stan Gonzáles RNencompass health rehabilitation [facility]
[2020-05-05] MEDS ORDERED: ACETAMINOPHEN 500 MG TAB PO PRN (14:25)
[2020-05-05] MEDS ORDERED: ALPRAZOLAM 0.25 MG TABLET PO PRN (14:25)
--- NOTE | 2020-05-05 16:04 | P.HP ---
Certification for Inpatient Patient admitted to: Observation With expected LOS: <2 Midnights Patient will require the following post-hospital care: None Practitioner: I am a practitioner with admitting privileges, knowledge of patient current condition, hospital course, and medical plan of care. Services: Services provided to patient in accordance with Admission requirements found in Title 42 Section 412.3 of the Code of Federal Regulations Patient History Date of Service: 05/05/20 Reason for admission: Chest pain rule out acute coronary syndrome History of Present Illness: Patient is a 54-year-old gentleman who came to the hospital with chest discomfort. Pain was mainly in the sternal region. Patient came short of breath with chest pain. Patient has had a history of Coronary artery disease and he has 30% left circumflex lesion as well as a 50% RCA lesion. Patient with unstable angina type symptoms. He says the pain came on suddenly at rest and he became diaphoretic. 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 However he has had a couple different cardiac catheterization done here the last few years. In light of his recurrent symptoms and his significant cardiac history I will consult Cardiology. Serial troponins and EKG. He may be able to follow-up as an outpatient if his symptoms improve. If he continues to have chest pain I will speak with Cardiology regarding further plan of care. Allergies azithromycin Adverse Reaction (Verified 02/03/20 22:25) Hives Beta-Blockers (Beta-Adrenergic Bloc Adverse Reaction (Verified 02/03/20 22:25) Anaphylaxis metoprolol Adverse Reaction (Verified 02/03/20 22:25) Anaphylaxis Home Medications: Clopidogrel Bisulfate [Plavix*] 75 mg PO DAILY 03/07/20 Furosemide 1 tab PO DAILY 03/07/20 Lisinopril [Zestril] 40 mg PO DAILY 03/07/20 Metformin HCl [Glucophage*] 500 mg PO BIDWM 03/07/20 Nitroglycerin 0.4 mg SL PRN PRN 03/07/20 Albuterol Sulfate [Proair Hfa] 2 puff IH Q6H 05/05/20 Amlodipine [Norvasc*] 10 mg PO DAILY 05/05/20 Apixaban [Eliquis] 5 mg PO BID 05/05/20 Aspirin 1 tab PO DAILY 05/05/20 Pitavastatin Calcium [Livalo] 4 mg PO BEDTIME 05/05/20 Isosorbide Dinitrate [Isordil] 30 mg PO DAILY #30 tablet 05/06/20 - Past Medical/Surgical History Diabetic: Yes -: Angina -: HTN -: Hyperlipidemia -: Tobacco abuse -: CAD -: COPD -: GERD -: Diabetes- NIDDM -: [place] -: Sleep Apnea -: cardic cath -: Cardiac stress tests October 2017 showed no stress-induced ischemia Psychosocial/ Personal History: Patient is single. Patient is homeless. - Family History MOM Medical History: Heart disease, Other (see notes) Notes: MASSIVE [place] 61YR and arthritis DAD Medical History: Heart disease, Other (see notes) Notes: POOR CIRCULATION TO LEGS PER PT - Social History Alcohol use: No CD- Drugs: No Caffeine use: Yes Review of Systems 10-point ROS is otherwise unremarkable Physical Examination - Vital Signs Temperature: 97.7 F Blood Pressure: 127/67 Pulse: 67 Respirations: 18 Pulse Ox (%): 96 - Physical Exam General: Alert, In no apparent distress, Oriented x3 HEENT: Atraumatic, PERRLA, Mucous membr. moist/pink, EOMI, Sclerae nonicteric Neck: Supple, 2+ carotid pulse no bruit, No LAD, Without JVD or thyroid abnormality Respiratory: Diminished, Crackles/rales, Expiratory wheezes Cardiovascular: Regular rate/rhythm, Normal S1 S2, Systolic murmur Gastrointestinal: Normal bowel sounds, Soft and benign, Non-distended, No tenderness Musculoskeletal: No clubbing, No tenderness, Swelling Integumentary: No rashes Neurological: Normal gait, Normal speech, Normal strength at 5/5 x4 extr, Normal tone, Sensation intact, Cranial nerves 3-12 intact, Normal affect Lymphatics: No axilla or inguinal lymphadenopathy - Studies Laboratory Data (last 24 hrs) 05/05/20 13:00: PT 13.6 H, INR 1.16 05/05/20 13:00: WBC 8.3, Hgb 12.8 L, Hct 39.8, Plt Count 265 05/05/20 13:00: Sodium 139, Potassium 3.8, BUN 16, Creatinine 1.17, Glucose 242 H, Magnesium 1.7 L, Total Bilirubin 0.3, AST 47 H, ALT 102 H, Alkaline Phosphatase 49 Assessment & Plan - Problems (Diagnosis) (1) Unstable angina Current Visit: Yes Status: Acute (2) Chest pain, rule out acute myocardial infarction Current Visit: Yes Status: Acute (3) Morbidly obese Current Visit: Yes Status: Acute (4) Sleep apnea Current Visit: No Status: Acute (5) CAD (coronary artery disease) Onset Date: 03/03/18 Current Visit: No Status: Chronic Qualifiers: (6) HLD (hyperlipidemia) Onset Date: 10/11/17 Current Visit: No Status: Chronic Qualifiers: (7) HTN (hypertension) Onset Date: 03/03/18 Current Visit: No Status: Chronic Qualifiers: (8) Nicotine dependence Onset Date: 10/11/17 Current Visit: No Status: Chronic (9) Non-compliance Onset Date: 03/03/18 Current Visit: No Status: Chronic (10) Tobacco abuse Onset Date: 03/03/18 Current Visit: No Status: Chronic - Plan 1. Serial troponins and EKG 2. Cardiology consultation 3. Echocardiogram and further intervention per Cardiology 4. Anti-platelet therapy, anti coagulation, beta-aly, statin, and O2 as needed 5. IV morphine for pain 6. Nitro p.r.n. 7. GI and DVT prophylaxis Discharge Plan: Home Plan to discharge in: Greater than 2 days - Advance Directives Does patient have a Living Will: No Does patient have a Durable POA for Healthcare: No - Code Status/Comfort Care Code Status Assessed: Yes Code Status: Full Code Critical Care: No Time Spent Managing PTS Care (In Minutes): 45
[2020-05-05 16:45] VITALS: BMI 42.6
[2020-05-05] MEDS ORDERED: METOPROLOL TAR 50 MG TAB PO SCH (18:00)
[2020-05-05] MEDS ORDERED: NITROGLYCERIN 0.4 MG/TAB SL PRN (18:12)
[2020-05-05] MEDS ORDERED: ALBUTEROL INHALER 60 PUFF/8 GM IH SCH (18:15)
[2020-05-05] MEDS: MORPHINE 4 MG/ML SYR IV PRN (18:17)
[2020-05-05] MEDS ORDERED: HOME MED 1 EA UNK (Pitavastatin Calcium [Livalo] 4 MG) PO SCH (21:00)
[2020-05-05] MEDS: ATORVASTATIN 20 MG TAB PO SCH (22:01)
[2020-05-05] MEDS: APIXABAN 5 MG TABLET PO SCH (23:29)
[2020-05-06 04:23] LABS: Absolute Lymphocytes (CBC) 1.7 K/uL (0.7-4.9); Basophils % 0.7 % (0-1.3); Hematocrit 40.8 % (39.6-49.0); Lymphocytes % 20.3 % (15.3-44.8); MPV 9.6 fL (7.6-11.3); RBC Red Blood Cell Count 4.79 M/uL (4.33-5.43)
[2020-05-06 04:42] LABS: Potassium 4.1 mmol/L (3.5-5.1)
[2020-05-06] MEDS: APIXABAN 5 MG TABLET PO SCH ×2 (08:39→20:27)
[2020-05-06] MEDS: CLOPIDOGREL 75 MG TABLET PO SCH (08:39)
[2020-05-06] MEDS: METFORMIN HCL 500 MG TAB PO SCH ×2 (08:39→16:33)
[2020-05-06] MEDS: ASPIRIN 325 MG TAB PO SCH (08:39)
[2020-05-06] MEDS: lisinopriL 20 MG TAB PO SCH (08:39)
[2020-05-06] MEDS: AMLODIPINE 10 MG TAB PO SCH (08:40)
[2020-05-06] MEDS: MORPHINE 4 MG/ML SYR IV PRN ×2 (08:40→16:22)
[2020-05-06] MEDS: FUROSEMIDE 40 MG TABLET PO SCH (08:40)
[2020-05-06] MEDS ORDERED: HOME MED 1 EA UNK (Lisinopril [Zestril] 40 MG) PO SCH (09:00)
[2020-05-06] MEDS ORDERED: ASPIRIN EC 81 MG TAB PO SCH (09:00)
[2020-05-06] MEDS ORDERED: ENOXAPARIN 40 MG/0.4 ML SQ SCH (09:00)
--- NOTE | 2020-05-06 14:14 | P.PN ---
Subjective Date of Service: 05/06/20 Patient is still having some chest discomfort. Patient has a history of atherosclerotic disease in his left circumflex and is RCA. Continues to have chest discomfort and he gets short of breath on ambulation. I spoke with Cardiology and they are recommending stress test. Will try to get this done this morning. Review of Systems 10-point ROS is otherwise unremarkable Physical Examination - Vital Signs Temperature: 97.7 F Blood Pressure: 127/67 Pulse: 67 Respirations: 18 Pulse Ox (%): 96 - Physical Exam General: Alert, In no apparent distress, Oriented x3 Respiratory: Clear to auscultation bilaterally, Normal air movement Cardiovascular: Regular rate/rhythm, Normal S1 S2, Systolic murmur Gastrointestinal: Normal bowel sounds, Soft and benign, Non-distended, No tenderness Musculoskeletal: No clubbing, No tenderness, Swelling Integumentary: No rashes Neurological: Normal speech, Normal strength at 5/5 x4 extr, Normal tone, Sensation intact, Cranial nerves 3-12 intact - Studies Medications List Reviewed: Yes Assessment & Plan - Problems (Diagnosis) (1) Unstable angina Status: Acute (2) Chest pain, rule out acute myocardial infarction Status: Acute (3) Morbidly obese Status: Acute (4) Sleep apnea Status: Acute (5) CAD (coronary artery disease) Onset Date: 03/03/18 Status: Chronic Qualifiers: (6) HLD (hyperlipidemia) Onset Date: 10/11/17 Status: Chronic Qualifiers: (7) HTN (hypertension) Onset Date: 03/03/18 Status: Chronic Qualifiers: (8) Nicotine dependence Onset Date: 10/11/17 Status: Chronic (9) Non-compliance Onset Date: 03/03/18 Status: Chronic (10) Tobacco abuse Onset Date: 03/03/18 Status: Chronic - Plan 1. Troponins have been negative. 2. Cardiology consultation-spoke with Cardiology and they recommend stress test prior to any further intervention. Patient continues to have chest pain. Will add Imdur to his regimen. Hopefully they will assist with patient's angina. 3. Echocardiogram results are pending 4. Continue w/ Anti-platelet therapy, anti coagulation, beta-aly, statin, and O2 as needed 5. IV morphine for pain 6. Nitro p.r.n. 7. GI and DVT prophylaxis Discharge Plan: Home Plan to discharge in: Greater than 2 days - Advance Directives Does patient have a Living Will: No Does patient have a Durable POA for Healthcare: No - Code Status/Comfort Care Code Status: Full Code Critical Care: No Time Spent Managing PTS Care (In Minutes): 35
--- NOTE | 2020-05-06 16:19 | CON ---
Date of Consultation: 05/06/2020 Reason For Consultation: Chest pain. History Of Present Illness: Mr. Langston is a patient, who is known to us from previous office visit and admission. A catheterization that was done not long ago showed 50% RCA and 30% circumflex. He has diabetes, hypertension, dyslipidemia, tobacco use, obesity, noncompliance. Complained of upper l eft chest pain that he described as a soreness that lasts for 3-4 hours, but his EKG is normal. His CPK, MBs and troponin are negative. He denied PND, orthopnea, pedal edema, nausea, vomiting, diaphor esis, palpitations, or syncope. Denied fever or chills or cough. Past Medical History: As stated above. Allergies: NONE. Review of Systems: Negative. Social History: Positive for tobacco. Family History: Unremarkable. Medications: At home are supposed to be aspirin, metoprolol, Lipitor, and Glucophage. Physical Examination: Vital Signs: Stable, afebrile. HEENT: Negative. Neck: Supple with no bruit. Chest: Clear to auscultation and percussion. Cardiac: Revealed a regular rhythm and rate. No murmurs, gallops, or rubs. Abdomen: Benign. Extremities: Revealed no clubbing, cyanosis, or edema. Diagnostic Data: Unremarkable. Impression And Plan: This is a patient with multiple cardiac risk factors, known [id number] co ronary artery disease. His chest pain sounds atypical and myocardial infarction is ruled out. I wou ld continue his present regimen, order another stress test on him today. If that is positive, then w e will proceed with another catheterization. The case was discussed with Dr. Argueta. ROSSY/SARAH BETH Voice ID: [id number] Report ID: [id number]
[2020-05-06] MEDS: ATORVASTATIN 20 MG TAB PO SCH (20:27)
[2020-05-07 01:07] VITALS: O2SAT 94
--- NOTE | 2020-05-07 07:16 | EKG ---
Test Date: 2020-05-06 Test Time: 14:35:19 Shrimp Trawler Captain: SERG MEASUREMENT RESULTS: Intervals: Rate: 70 ME: 146 QRSD: 92 QT: 378 QTc: 408 [place]: P: 44 ME: 146 QRS: 69 T: -36 INTERPRETIVE STATEMENTS: Normal sinus rhythm T wave abnormality, consider inferior ischemia Abnormal ECG Compared to ECG 05/05/2020 12:43:32 T-wave abnormality now present ST (T wave) deviation no longer present Possible ischemia still present Electronically Signed On 05-07-20 07:16:04 SEARCH MARKETING ANALYST by Nazario Anderson
--- NOTE | 2020-05-07 07:19 | EKG ---
Test Date: 2020-05-05 Test Time: 12:43:32 Carpenter Prototype: CARMELO MEASUREMENT RESULTS: Intervals: Rate: 100 UT: 150 QRSD: 94 QT: 336 QTc: 433 [place]: P: 61 UT: 150 QRS: 84 T: -55 INTERPRETIVE STATEMENTS: Normal sinus rhythm ST & T wave abnormality, consider inferior ischemia Abnormal ECG Compared to ECG 03/07/2020 04:33:50 ST (T wave) deviation now present Possible ischemia now present Myocardial infarct finding no longer present Electronically Signed On 05-07-20 07:16:29 ELIGIBILITY CLERK by Nazario Anderson
[2020-05-07] MEDS: METFORMIN HCL 500 MG TAB PO SCH (07:39)
--- NOTE | 2020-05-07 08:14 | ECHO ---
HEIGHT: 5 ft 6 in WEIGHT: 264 lb 0 oz DATE OF STUDY: 05/06/[address]: Jonathan Argueta MD 2-DIMENSIONAL: YES M.MODE: YES DOPPLER: YES COLOR FLOW: YES TDS: PORTABLE: DEFINITY: BUBBLE STUDY: DIAGNOSIS: CHEST PAIN, RULE OUT ACUTE CORNARY DISEASE CARDIAC HISTORY: CATHERIZATION: YES SURGERY: YES PROSTHETIC VALVE: NO PACEMAKER: YES MEASUREMENTS (cm) DIASTOLIC (NORMALS) SYSTOLIC (NORMALS) IVSd 1.1 (0.6-1.2) LA Diam 3.3 (1.9-4.0) LVEF 56% LVIDd 5.0 (3.5-5.7) LVIDs 3.5 (2.0-3.5) %FS 29% LVPWd 1.2 (0.6-1.2) Ao Diam 2.9 (2.0-3.7) 2 DIMENSIONAL ASSESSMENT: RIGHT ATRIUM: NORMAL LEFT ATRIUM: NORMAL RIGHT VENTRICLE: NORMAL LEFT VENTRICLE: NORMAL TRICUSPID VALVE: NORMAL MITRAL VALVE: NORMAL PULMONIC VALVE: NORMAL AORTIC VALVE: SCLEROSIS PERICARDIAL EFFUSION: NONE AORTIC ROOT: NORMAL LEFT VENTRICULAR WALL MOTION: NORMAL DOPPLER/COLOR FLOW: NORMAL COMMENTS: AORTIC SCLEROSIS. NORMAL LEFT VENTRICULAR SIZE AND FUNCTION. NO WALL MOTION ABNORMALITY. TECHNOLOGIST: VIN MURO
[2020-05-07] MEDS: AMLODIPINE 10 MG TAB PO SCH (08:29)
[2020-05-07] MEDS: APIXABAN 5 MG TABLET PO SCH (08:29)
[2020-05-07] MEDS: lisinopriL 20 MG TAB PO SCH (08:30)
[2020-05-07] MEDS: FUROSEMIDE 40 MG TABLET PO SCH (08:30)
[2020-05-07] MEDS: CLOPIDOGREL 75 MG TABLET PO SCH (08:30)
[2020-05-07] MEDS: ASPIRIN 325 MG TAB PO SCH (08:30)
[2020-05-07] MEDS ORDERED: REGADENOSON 0.4 MG/5 ML SYR IV ONE (10:07)
--- NOTE | 2020-05-07 12:03 | RAD REPORT ---
EXAM DESCRIPTION: NM - Rest Stress Cardiac Imaging - 05/07/2020 11:16 am CLINICAL HISTORY: Chest pain COMPARISON: April 2019 TECHNIQUE: The patient was administered approximately 10 mCi of Tc 99m Sestamibi prior to resting SP ECT imaging of the heart. The patient was then administered approximately 30 mCi of Tc 99m Sestamibi following exercise or pharmacologic stress. Multiplanar SPECT images were reviewed. FINDINGS: The end diastolic volume is 161 ml, the end systolic volume is 93 ml, and the ejection fra ction is 42 %. 2019 ventricular volumes were 164/104 mL with a 36% ejection fraction. No stress-induced ischemic changes are identifiable. Fixed defect is seen in the inferoseptal wall mi d apex portion. This is similar to the 2019 study. IMPRESSION: No focal stress-induced ischemic change identified. End-diastolic volume is enlarged 161 mL. Moderate-sized fixed defect inferoseptal wall unchanged from 2019. This may be diaphragm attenuation artifact in this location. Scarring is possible. Ejection fraction is below normal at 42%. The 2019 gauge action fraction was calculated as 36%.
--- NOTE | 2020-05-08 08:45 | TREADPHA ---
DX: CHEST PAIN Date of Study: 05/07/2020 Ht: 5' 6 " Wt: 264 lb 0 oz Consulting Physician: SARAHY MEDICATIONS: NORVASC, ASPIRIN, LIPITOR, PLAVIX, LISINOPRIL, NITROSTAT HISTORY: 54 YEAR OLD MALE WITH HISTORY OF MODERATE CORONARY ARTERY DISEASE AND ATYPICAL CHEST PAIN. PHYSICIAL EXAMINATION: RESTING B.P.: 154/58 RESTING H.R.: 78 RESTING EKG: SINUS RHYTHM PROTOCOL: LEXISCAN EXERCISE TIME: 3:30 B.P. AT PEAK STRESS: 160/54 IMPRESSION: NO ARRHYTHMIAS NOTED. NORMAL BLOOD PRESSURE RESPONSE. LEXISCAN REPORT PENDING.
[2020-05-08 13:11] VITALS: BP 127/67; TEMP 97.7
--- NOTE | 2020-05-08 13:18 | P.DS ---
Discharge Date: 05/07/20 Disposition: ROUTINE DISCHARGE Discharge Condition: GOOD Reason for Admission: Chest pain rule out acute coronary syndrome Consultations: Nutrition Therapist - Problems (1) Unstable angina Status: Acute (2) Chest pain, rule out acute myocardial infarction Status: Acute (3) Morbidly obese Status: Acute (4) Sleep apnea Status: Acute (5) CAD (coronary artery disease) Onset Date: 03/03/18 Status: Chronic Qualifiers: (6) HLD (hyperlipidemia) Onset Date: 10/11/17 Status: Chronic Qualifiers: (7) HTN (hypertension) Onset Date: 03/03/18 Status: Chronic Qualifiers: (8) Nicotine dependence Onset Date: 10/11/17 Status: Chronic (9) Non-compliance Onset Date: 03/03/18 Status: Chronic (10) Tobacco abuse Onset Date: 03/03/18 Status: Chronic Brief History of Present Illness: Patient is a 54-year-old gentleman who came to the hospital with chest discomfort. Pain was mainly in the sternal region. Patient came short of breath with chest pain. Patient has had a history of Coronary artery disease and he has 30% left circumflex lesion as well as a 50% RCA lesion. Patient with unstable angina type symptoms. He says the pain came on suddenly at rest and he became diaphoretic. 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 However he has had a couple different cardiac catheterization done here the last few years. In light of his recurrent symptoms and his significant cardiac history I will consult Cardiology. Serial troponins and EKG. He may be able to follow-up as an outpatient if his symptoms improve. If he continues to have chest pain I will speak with Cardiology regarding further plan of care. Hospital Course: Patient somewhat during hospital stay. The stress test showed a fixed defect. Patient clinically is doing well at this time and is stable for discharge home. Vital Signs/Physical Exam: Temp Pulse Resp BP Pulse Ox 97.7 F 67 18 127/67 96 05/08/20 13:10 05/08/20 13:10 05/08/20 13:10 05/08/20 13:10 05/08/20 13:10 General: Alert, In no apparent distress, Oriented x3 Laboratory Data at Discharge: WBC 8.5 K/uL (4.3-10.9) 05/06/20 03:56 Hgb 13.1 g/dL (13.6-17.9) L 05/06/20 03:56 Hct 40.8 % (39.6-49.0) 05/06/20 03:56 Plt Count 259 K/uL (152-406) 05/06/20 03:56 PT 13.6 SECONDS (9.5-12.5) H 05/05/20 13:00 INR 1.16 05/05/20 13:00 Sodium 138 mmol/L (136-145) 05/06/20 03:56 Potassium 4.1 mmol/L (3.5-5.1) 05/06/20 03:56 BUN 17 mg/dL (7-18) 05/06/20 03:56 Creatinine 0.93 mg/dL (0.55-1.3) 05/06/20 03:56 Glucose 147 mg/dL (74-106) H 05/06/20 03:56 Magnesium 1.7 mg/dL (1.8-2.4) L 05/05/20 13:00 Total Bilirubin 0.3 mg/dL (0.2-1.0) 05/05/20 13:00 AST 47 U/L (15-37) H 05/05/20 13:00 ALT 102 U/L (12-78) H 05/05/20 13:00 Alkaline Phosphatase 49 U/L (45-117) 05/05/20 13:00 Troponin I < 0.02 ng/mL (0.0-0.045) 05/05/20 20:47 Triglycerides Cancelled 05/06/20 06:00 Cholesterol Cancelled 05/06/20 06:00 HDL Cholesterol Cancelled 05/06/20 06:00 Cholesterol/HDL Ratio Cancelled 05/06/20 06:00 Home Medications: Clopidogrel Bisulfate [Plavix*] 75 mg PO DAILY 03/07/20 Furosemide 1 tab PO DAILY 03/07/20 Lisinopril [Zestril] 40 mg PO DAILY 03/07/20 Metformin HCl [Glucophage*] 500 mg PO BIDWM 03/07/20 Nitroglycerin 0.4 mg SL PRN PRN 03/07/20 Albuterol Sulfate [Proair Hfa] 2 puff IH Q6H 05/05/20 Amlodipine [Norvasc*] 10 mg PO DAILY 05/05/20 Apixaban [Eliquis] 5 mg PO BID 05/05/20 Aspirin 1 tab PO DAILY 05/05/20 Pitavastatin Calcium [Livalo] 4 mg PO BEDTIME 05/05/20 Isosorbide Dinitrate [Isordil] 30 mg PO DAILY #30 tablet 05/06/20 New Medications: Isosorbide Dinitrate [Isordil] 30 mg PO DAILY #30 tablet Patient Discharge Instructions: OK TO DC IV AND DC HOME. FOLLOW-UP WITH PRIMARY CARE PROVIDER IN 1-2 WEEKS. FOLLOW-UP WITH CARDIOLOGY IN 1-2 WEEKS. RETURN TO THE ER IF SYMPTOMS WORSEN. CALL or TEXT DR. ROCHA AT [phone] IF ANY QUESTIONS REGARDING HOSPITAL STAY. PLEASE CALL THE FLOOR AT [phone] IF ANY MEDICATION OR NURSING QUESTIONS. Diet: AHA Activity: Fall precautions Followup: Nazario Anderson MD [ACTIVE - CAN ADMIT] - OOT,OOT [Primary Care Provider] - Time spent managing pt's care (in minutes): 35
== END 2020-05-07 12:47 | disposition home or self-care (01) | DRG 303 ==
LOC: ER 12:37 → ERHOLD 14:25 → 2ND 15:57 → OBSVTOIN 18:32
PROVIDERS: ADMIT Hospitalist; ATTEND Hospitalist
DX: I25.110 Atherosclerotic heart disease of native coronary artery with unstable angina pectoris (principal); Z68.41 Body mass index [BMI] 40.0-44.9, adult; E66.01 Morbid (severe) obesity due to excess calories; E11.9 Type 2 diabetes mellitus without complications; F17.210 Nicotine dependence, cigarettes, uncomplicated; J44.9 Chronic obstructive pulmonary disease, unspecified; G47.30 Sleep apnea, unspecified; E78.5 Hyperlipidemia, unspecified; I10 Essential (primary) hypertension; K21.9 Gastro-esophageal reflux disease without esophagitis; I25.2 Old myocardial infarction; Z95.0 Presence of cardiac pacemaker; Z88.1 Allergy status to other antibiotic agents; Z88.8 Allergy status to other drugs, medicaments and biological substances; Z79.01 Long term (current) use of anticoagulants; Z79.02 Long term (current) use of antithrombotics/antiplatelets; Z79.84 Long term (current) use of oral hypoglycemic drugs; Z79.899 Other long term (current) drug therapy; Z59.0 Homelessness; Z91.19 Patient's noncompliance with other medical treatment and regimen; Z20.828 Contact with and (suspected) exposure to other viral communicable diseases
CPT/HCPCS: 36415; 71045; 78452; 80048; 80061; 80076; 82947; 83735; 83880; 84484; 85025; 85610; 93005; 93017; 93306; 96374; 99285; A9500; G0378; J2785; U0002

== ENCOUNTER 2020-06-06 12:31 | Emergency (ER) | payer OTHER ==
--- OUTSIDE RECORDS SUMMARY | 2020-06-06 12:34 | XMS REPORT | Clinical Summary ---
:[address] [facility] Address [address] [place] [address] Care Team Providers Name Role Phone Pcp [...] Timoteo Shipley BRIDGET (obstruc tive sleep apnea); MD Ely Morbid obesity (HCC); Hypoxia; Chronic bronchi tis, unspecified chronic bronchitis type (HCC); Type 2 diabetes mellitus without complication, without long-term current use of insulin (HCC); Homeless 02/04/2020 Travel 02/04/2020 Documentation Internal Medicine Ortega, Oriana Reilly MD 02/03/2020 Lab Requisition Lab after 06/06/2019 Social History Tobacco Use Types Packs/Day Years [...] LIPID PANEL 02/04/2023 02/05/2020, 07/17/2019 PNEUMOCOCCAL VACCINE 0-64 YRS Completed 04/20/2019, 2013 Implants Implanted Type Area Loader [employer] Device Identifier Shelf Model / Expiration Serial / Date Lot Lead Pacemkr Cecily [place] 52x1 [id number] - [id number] PACEMAKER/I [employer]:CARD [id number] 09/27/2021 [id number] / Implanted: Qty: 1 on 02/05/2020 by Prem Herron MD at [facility] CD CHAMBER RHY:DISEASE MGT [id number] / DEVICE Description:Ventricular Lead Lead Pacemkr Cecily Tovar 45x1 [id number] - [id number] PACEMAKER/IC D [employer]:CARD [id number] 08/28/2021 [id number] / Implanted: Qty: 1 on 02/05/2020 by Prem Herron MD at [facility] CHAMBER DEVICE RHY:DISEASE MGT [id number] / Description:Atrial Lead Pacemkr [place] Xtdr Mri Ipg [id number] - [id number] PACEMAKER/ICD [employer]:CARD [id number] 05/31/2021 [id number] / Implanted: Qty: 1 on 02/05/2020 by Prem Herron MD at [facility] CHAMBER DEVICE RHY:PACING SYS [id number] / Description:Chest Procedures Procedure Name Priority Date/Time [...] 380 ms QTC Calculation(Bazett) 392 ms P [place] 51 degrees R [place] 57 degrees T [place] -21 degrees Normal sinus rhythm Incomplete left [...] i n the results section . SARS-COV2/RT-PCR (HS & Routine 02/03/2020 8:16 PM CDT Results for this REF LABS) procedure are i n the results section . 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 [...] TR Gradient: 23.87 mmHg Performing Organization Address City/[facility]/[place] [facility] Cent[facility]ode Phone Number [facility] MKCKESSON CPACS POC-Glucose meter (02/06/2020 7:12 AM CDT)Only the most recent of3 results within the time period is included. POC-Glucose Meter 131 (H)Comment: 70 - 110 mg/dL [facility] : TESTED AT [address], [address]: Product Applications Engineer/Technic oswaldo ID = [id number] for KENDRICK HAN Specimen Blood Performing Organization Address [facility]/[place] [facility] Centercode Phone Number [place] [phone] CENTER CBC with platelet count + automated diff (02/06/2020 4:03 AM CDT)Only the most recent of2 resultswithin the time period is included. Pathologist Sig nature WBC 8.1 3.5 - 10.5 [facility] K/L [facility] RBC 5.09 4.63 - 6.08 [facility] M/L [facility] Hemoglobin 13.5 (L) 13.7 - 17.5 [facility] GM/DL [facility] Hematocrit 45.1 40.1 - 51.0 % [facility] MCV 88.6 79.0 - 92.2 fL [facility] MCH 26.5 25.7 - 32.2 pg [facility] MCHC 29.9 (L) 32.3 - 36.5 [facility] GM/DL [facility] RDW 15.9 (H) 11.6 - 14.4 % [facility] Platelets 265 150 - 450 K/CU [facility] MPV 11.2 9.4 - 12.4 fL [facility] nRBC 0 0 - 0 /100 WBC [facility] % Neutros 65 % [facility] % Lymphs 24 % [facility] % Monos 9 % [facility] % Eos 1 % [facility] % Baso 0 % [facility] # Neutros 5.27 1.78 - 5.38 [facility] # Lymphs 1.96 1.32 - 3.57 [facility] # Monos 0.69 0.30 - 0.82 [facility] # Eos 0.08 0.04 - 0.54 [facility] # Baso 0.03 0.01 - 0.08 [facility] Immature 0 0 - 1 % [facility] Specimen Blood Performing Organization Address City/State/Zipcode Phone Number [facility] [address] [place] [address] CENTER Magnesium (02/06/2020 4:02 AM CDT)Only the most recent of2 resultswithin the time period is included. Pathologist Sig nature Magnesium 1.9Comment: Specimen 1.6 - 2.6 mg/dL [facility] slightly hemolyzed [facility] Specimen Blood Narrative Performed At Product Applications Engineer ID - NELLY Loredo [facility] Performing Organization Address [facility]/[place] [facility] Centercode Phone Number [facility] [address] [place] [address] CENTER Basic metabolic panel (02/06/2020 4:02 AM CDT)Only the most recent of2 results within the time period is included. Sodium 137 136 - 145 meq/L [facility] Potassium 4.4Comment: Specimen 3.5 - 5.1 meq/L [facility] Chloride 101 98 - 107 meq/L [facility] CO2 28 22 - 29 meq/L [facility] BUN 13 7 - 21 mg/dL [facility] Creatinine 0.73Comment: 0.57 - 1.25 [facility] Specimen slightly mg/dL [facility] hemolyzed [place] Glucose 124 (H) 70 - 105 mg/dL [facility] Calcium 8.2 (L) 8.4 - 10.2 [facility] mg/dL [facility] EGFR 112Comment: mL/min/1.[address] [facility] ESTIMATED GFR IS NOT [facility] ACCURATE [place] CREATININE CLEARANCE IN PREDICTING GLOMERULAR FILTRATION RATE. ESTIMATED GFR IS NOT APPLICABLE FOR DIALYSIS PATIENTS. Specimen Blood Narrative Performed At Product Applications Engineer ID - NELLY Loredo [facility] Performing Organization Address [facility]/Zipcode Phone Number [facility] [address] [place] [address] CENTER XR chest 1 view [...] Report Verified Date/Time: 02/05/2020 18:08:29 Reading Location: [address] Reading Room Procedure Note Interface, External [...] Verified Date/Time: 02/05/2020 1 8:08:29 Reading Location: [facility] [address] [place] [address] Reading Room Performing Organization Address City/State/Zipcode Phone Number [facility] Blood gas, arterial (02/05/2020 11:36 AM CDT) Pathologist Sig nature pH, Arterial 7.42 7.35 - 7.45 [facility] pCO2, Arterial 48 (H) 35 - 45 mmHg [facility] pO2, Arterial 70 (L) 80 - 90 mmHg [facility] O2 Sat, Arterial 94.8 (L) 96.0 - 97.0 % [facility] HCO3, Arterial 31 (H) 21 - 29 mmol/L [facility] Base Excess, Arterial 5.3 (H) -2.0 - 3.0 [facility] mmol/L [facility] Patient Temperature 36.3 C [facility] FIO2 21.0 % [facility] Specimen Blood, Arterial Performing Organization Address [facility]/[place] [facility] Phone Number [address] [address] CENTER ABORH, manual (02/05/2020 8:59 AM CDT) Pathologist Sig nature ABO Grouping AB [facility] Rh Factor POS [facility] Specimen Blood Performing Organization Address [facility]/[place] [facility] Phone Number [address] [address] Type and screen, automated (02/05/2020 8:30 AM CDT) Pathologist Sig nature ABO/RH AUTOMATED AB POSITIVE [facility] Ab Scrn NEGATIVE [facility] Specimen Blood Performing Organization Address [facility] Phone Number [address] [address] ECG 12 lead (02/05/2020 6:40 AM CDT) Specimen Narrative Performed At Ventricular Rate 64 BPM GE MUSE Atrial Rate 64 BPM P-R Interval 152 ms QRS Duration 106 ms Q-T Interval 380 ms QTC Calculation(Bazett) 392 ms P Plymouth 51 degrees R [place] 57 degrees T [place] -21 degrees Normal sinus rhythm Incomplete left bundle branch block Nonspecific ST and T wave abnormality Abnormal ECG No previous ECGs available Confirmed by MD JHON, BLANQUITA ([id number]) on 02/05/2020 1 :06:39 PM Procedure Note Interface, External Ris In - 02/05/2020 1:06 PM CDT Ventricular Rate 64 BPM Atrial Rate 64 BPM P-R Interval 152 ms QRS Duration 106 ms Q-T Interval 380 ms QTC Calculation(Bazett) 392 ms P Plymouth 51 degrees R Plymouth 57 degrees T Plymouth -21 degrees Normal sinus rhythm Incomplete left bundle branch block Nonspecific ST and T wave abnormality Abnormal ECG No previous ECGs available Confirmed by MD JHON, BLANQUITA ([id number]) on 02/05/2020 1:06:39 PM Performing Organization Address City/[facility]/[place] [facility] Centercode Phone Number MUSE Hemoglobin A1c (02/05/2020 1:23 AM CDT) Pathologist Sig nature Hemoglobin A1C 8.3 (H) 4.3 - 6.1 % [facility] Specimen Blood Performing Organization Address [facility]/[place] [facility] Phone Number [address] [address] [place] Blood gas, venous (02/05/2020 1:23 AM CDT) Pathologist Sig nature pH, Cuco 7.39 7.32 - 7.42 [facility] pCO2, Cuco 52 (H) 41 - 51 mmHg [facility] pO2, Cuco 147 (H) 25 - 40 mmHg [facility] O2 Sat, Cuco 98.8 (H) 40.0 - 70.0 % [facility] HCO3, Cuco 30 (H) 21 - 29 mmol/L [facility] Base Excess, Cuco 4.3 (H) -2.0 - 3.0 [facility] mmol/L [facility] Patient Temperature 37.0 C [facility] FIO2 21.0 % [facility] Specimen Blood Performing Organization Address [facility]/[place] [facility] Phone Number [facility] [address] [place] [address] [place] Lipid panel (02/05/2020 1:22 AM CDT) Pathologist Sig nature Triglycerides 119 mg/dL [facility] ME DICAL [place] Cholesterol 192 mg/dL [facility] MED ICAL [place] HDL 34 mg/dL [facility] LDL Calculated 134 mg/dL [facility] Specimen Blood Narrative Performed At Triglyceride Reference Range: [facility] Low Risk <150 Borderline 150-199 High Risk 200-499 Very High Risk >=500 Cholesterol Reference Range: Low Risk <200 Borderline 200-239 High Risk >240 HDL Cholesterol Reference Range: Low Risk >=60 High Risk <40 LDL Cholesterol Reference Range: Optimal <100 Near Optimal 100-129 Borderline 130-159 High 160-189 Very High >=190 Product Applications Engineer ID - NELLY W Performing Organization Address City/State/Zipcode Phone Number [facility] [address] [place] [address] CENTER SARS-CoV2/RT-PCR ([facility]) (02/03/2020 8:16 PM CDT) SARS-COV2/RT-PCR Negative Not Detected, [facility] Negative, See [facility] external report CENTER for linked test SARS-COV-2 [facility] K[facility]IE [facility] PERFORMING LAB [facility] Specimen Other - Nasopharyngeal wall structure (b yinka structure) Narrative Performed At Negative result for this test determines that [facility] SARS-CoV-2 RNA was not present in the [...] the Act. Fact Sheet for Healthcare Providers: https://www.Arbovax/sites/default/files/pro duct/documents/Fact_Sheet_HC_Providers_Lyra_SA RS-CoV-2.pdf Fact Sheet for Healthcare Patients: https://www.Arbov[employer]/sites/default/files/pro duct/documents/Fact_Sheet_Patients_Lyra_SARS-C oV-2.pdf Performing Laboratory: [place] [address] Performing Organization Address City/State/[place] [address] CENTER after 06/06/2019 Advance Directives For more information, please contact: [phone] Code Status Date Activated Date Inactivated Comments Full Code 02/04/2020 11:59 PM 02/06/2020 5:54 PM This code status was determined by: Patient
--- OUTSIDE RECORDS SUMMARY | 2020-06-06 12:35 | XMS REPORT | Summary of Care ---
:1965 Author Organization [facility] - Health Address [address] [place] [address] Care Team Providers Name Role Phone Nic JOSEFINA Primary Care Provider Encounter Details Date Type Department Care Team Description 03/11/2020 Orders Only [facility] Doctor Unassigned, No [address] [facility] [place] [address] [address] [place] [address] Allergies Active Allergy Reactions Severity Noted Date [...] Office Visit Pulmonary Disease Mayela Funes DO [address] [place] [phone] 08/20/2020 Office Visit Cardiology Eunice Chang M D [address] [place] [address] [phone] Health Maintenance Due Date Last Done Comments [...] Group Dates [place]. [id number] 2018-08/03 [phone] [facility] C [address] KATHARINE MORENO [address] ROSEANNA CONDON [id number] 2019-Prese [phone] [facility]IMARY [facility]ARE PRIMARY CARE nt [address] [place] [address] documented as of this encounter
--- OUTSIDE RECORDS SUMMARY | 2020-06-06 12:35 | XMS REPORT | Continuity of Care Document ---
:1965 Author Organization [facility] t Address [address] [place] [address] Care Team Providers Name Role Phone Pcp Primary Care Physician Unavailable Nic ROCHA Attending Clinician Juana Wilde MD Attending Clinician Ely Shipley MD Attending Clinician Kofi Elam MD Attending Clinician JUANA WILDE Attending Clinician Unavailable Melba Ortega MD Attending Clinician JUANA WILDE Admitting Clinician Unavailable Problems Condition Condition Condition Status Onset Resolution Last Treating Co mments Source Name Details Category Date Date Treatment Clinician Date MDT DDDR MDT DDDR Disease [facility] - implant on implant on 00:00: Me dical 02/05/2020 02/05/2020 00 Center Hypertensi Hypertensi Disease Active [facility]04 [facility] - 00:[facility] Medical [facility] [place] HLD HLD Disease Active [facility] (hyperlipi (hyperlipi 02-04 kes - demia) demia) 00:00: Medical 00 Center Coronary Coronary Disease Active 2019[facility] artery artery [facility] - disease disease 00:00: Medical 00 Center BRIDGET BRIDGET Disease Active [facility] (obstructi (obstructi 02-04 kes - ve sleep ve sleep 00:00: Medica l apnea) apnea) 00 Center Morbid Morbid Disease Active [facility] obesity obesity 02-04 [facility] - with BMI with BMI 00:00: Medica l of of 00 Center 40.0-44.9, 40.0-44.9, adult adult Syncope Syncope Disease Active [facility] St due to due to 02-03 [facility] - sick sinus sick sinus 00:00: Me dical syndrome syndrome 00 [place] Sick sinus Sick sinus Disease Active [facility] syndrome syndrome 02-[facility] - due to SA due to SA 00:00: Medi ajith node node 00 [place] dysfunctio dysfunctio n n Homeless Homeless Disease Active [facility] S t 02-03 kes - 00:00: Medical 00 Center Allergies, Adverse Reactions, Alerts This patient has no known allergies or adverse reactions. Social History Social Habit Start Date Stop Date Quantity Comments Source History [facility] - Alcohol Std Drinks Medica Center History [facility] - Alcohol Binge Medical Olya ter Sex Assigned At [facility] Alcohol intake 2020-02-06 2020-02-06 Current [facility] es - 00:00:00 00:00:00 non-drinker of Medical Ce nter alcohol (finding) History [facility] 2020-02-04 2020-02-04 1 [facility] - Alcohol Frequency 00:00:00 00:00:00 [facility] Smoking Status Start Date Stop Date Source Current every day smoker 2020-02-06 00:00:00 [facility] Medications Ordered Filled Start Stop Current Ordering Indication Dosage Frequency Signature Comments Components Source Medication Medication Date Date Medication? Clinician (SIG) Name Name lisinopriL No 5mg QD Take [address] [facility] [address] (PRINIVIL,Z 02-06 tablet (5 Melia kes - ESTRIL) 5 00:00: 23:59 mg total) Me dical MG tablet 00 :00 by mouth Center daily. aspirin 81 No 81mg QD Take [address] [facility] MG chewable 02-06 tablet (81 L ukes - tablet 00:00: 23:59 mg total) Medic al 00 :00 by mouth Center daily. clopidogreL No 75mg QD Take [address] [facility] (PLAVIX) 75 02-05 tablet (75 L ukes - mg tablet 00:00: 23:59 mg total) Me dical 00 :00 by mouth Center daily. atorvastati No 40mg QD Take [address] [facility] n (LIPITOR) 02-05 tablet (40 L ukes - 40 MG 00:00: 23:59 mg total) Medica l tablet 00 :00 by mouth Center daily. mINOCYCLine 100mg Take [address] (MINOCIN,DY 02-05 capsule Luke s - NACIN) 100 00:00: 23:59 (100 mg Med ical MG capsule 00 :00 total) by Cent er mouth every 12 (twelve) hours for 5 days. Vital Signs Vital Name Observation Time Observation Value Comments Source Systolic blood 2020-02-06 11:21:00 146 mm[Hg] [facility] Diastolic blood 2020-02-06 11:21:00 74 mm[Hg] [facility] Heart rate 2020-02-06 11:21:00 80 /min [facility] Body temperature 2020-02-06 11:21:00 37.06 Marianne [facility] Respiratory rate 2020-02-06 11:21:00 18 /min [facility] Oxygen saturation in 2020-02-06 11:21:00 94 /min [facility] Arterial blood by Medical Ce nter Pulse oximetry Body weight 2020-02-05 06:35:[address] [facility] BMI 2020-02-05 06:35:00 43.03 kg/m2 [facility] Body height 2020-02-04 22:00:[address] [facility] Procedures Procedure Date / Time Performed Performing Clinician Elo e ARRYTHMIA IMPLANT REPORT 2020-02-20 13:41:29 Provider, Default C [facility] - SCAN Scanning [facility] RHYTHM STRIP - SCAN 2020-02-08 09:00:23 Provider, Default [facility] ARRYTHMIA IMPLANT REPORT 2020-02-08 09:00:19 Provider, Default [facility] - SCAN Scanning [facility] CARDIAC CATH REPORT - 2020-02-08 09:00:17 Provider, Default [facility] TRANSFUSION SERVICE 2020-02-06 18:02:59 Provider, Default [facility] REPORT [facility] 2D ECHO W/ DOPPLER 2020-02-06 10:08:41 Fredrick Forrest [facility] (CW/PW/COLOR) [facility] POCT-GLUCOSE METER 2020-02-06 07:12:00 Timoteo Shipley [facility] CBC W/PLT COUNT & AUTO 2020-02-06 04:03:00 Lon [facility] DIFFERENTIAL [facility] BASIC METABOLIC PANEL 2020-02-06 04:02:00 Fredrick Forrest [facility] (7) [facility] MAGNESIUM 2020-02-06 04:02:00 Lon [facility] POCT-GLUCOSE METER 2020-02-05 22:25:00 Timoteo Shipley [facility] XR CHEST 1 VIEW 2020-02-05 17:51:00 Eduardo Chavez [facility] - PORTABLE/BEDSIDE [facility] POCT-GLUCOSE METER 2020-02-05 16:47:00 Timoteo Shipley [facility] AICD UPGRADE - SINGLE TO 2020-02-05 12:29:00 Prem Elam [facility] DUAL CHAMBER SYSTEM Medical Cent er BLOOD GAS, ARTERIAL 2020-02-05 11:36:[address] [facility] ABORH, MANUAL 2020-02-05 08:59:00 Tiffanie Conner [facility] TYPE AND SCREEN, 2020-02-05 08:30:00 Eduardo Chavez [facility] - AUTOMATED [facility] XR CHEST 1 VIEW 2020-02-05 06:55:00 Dulce Wilde [facility] s - PORTABLE/BEDSIDE [facility] ECG 12-LEAD 2020-02-05 06:40:35 Unknown, Hl7 Doctor [facility] HEMOGLOBIN A1C 2020-02-05 01:23:00 Lon [facility] BLOOD GAS, VENOUS 2020-02-05 01:23:00 Fredrick Forrest [facility] CBC W/PLT COUNT & AUTO 2020-02-05 01:23:00 Lon Fredrick [facility] DIFFERENTIAL [facility] BASIC METABOLIC PANEL 2020-02-05 01:22:00 LonFredrick HI abundio - (7) [facility] MAGNESIUM 2020-02-05 01:22:[address] [facility] LIPID PANEL 2020-02-05 01:22:[address] [facility] SARS-COV2/RT-PCR ([facility] & 2020-02-03 20:16:00 [facility]3]kes - REF LABS) [facility] Plan of Care Planned Activity Planned Date Details Comments Source Future Scheduled 2023-02-[address] [facility] - Test 00:00:00 (procedure) [code = Medical Center 59025130] Future Scheduled 2020-08-[address] Melia kes - Test 00:00:00 measurement [facility] (procedure) [code = 72994035] Future Scheduled 2020-03-[address] [facility] - Test 00:00:00 (#1) [code = [facility] INFLUENZA VACCINE (#1)] Future Scheduled 1975-09-[address] DIABETIC EYE EXAM [facility] - Test 00:00:00 [code = DIABETIC EYE Medical Center EXAM] Future Scheduled 1975-09-[address] [facility] - Test 00:00:00 examination Medical Center (regime/therapy) [code = 380429328] Future Scheduled 1975-09-07 Urine screening [facility] - Test 00:00:00 protein (procedure) [facility] [code = 248253921] Future Scheduled [address] [facility] - Test 00:00:00 malignant neoplasm of Medica l Center colon (procedure) [code = 040978687] Encounters Start End Encounter Admission Attending Care Care Encounter Source Date/Time Date/Time Type Type Clinicians Facility Department ID 2020-06-03 2020-06-03 Telephone Ekta Lucero [id number] 00:00:00 00:00:00 [facility] [id number] [place] [id number] UNIT [id number] Results Test Description Test Time Test Comments Results Result [facility] e Comments 2D Echo Ejection FractionSLEH MARIKA [facility] W/Doppler(CW/PW/C 5 ECHO [facility] - Mo dickirk serrano) 18:17:02 [facility] CPACSInterface, External Ris In - 02/06/2020 6:17 PM CDTTransthoracic Echocardiography Report (TTE) Demographics Patient Name SAMMY VALLE Date of Study 02/06/2020 RU Gender Male Visit Number [id number] Race Unknown Room Number 636 Number Date of 1965 Referring Fredrick Booker Lon [facility] Physician Age 54 year(s) Ophthalmologist Rubens Jurado, ROSSY, RDCS,RVT,RDMS Medical Technologist Microbiology Linda Rodriguez, Interpreting Nilda Myles MD RDCS [...] 70-110 H : TESTED AT [facility] [address] [facility] 1538) [facility], [address] 30: Air Support Control Officer/Techni vanita ID = [id number] for KENDRICK HAN Lab Interpretation (test code = Abnormal 57720-5) [facility]SE [id number] 07:29:00 Test Item Value Reference Range Interpretation Comments POC-GLUCOSE METER 131 mg/dL 70-110 H : TESTED A T [facility] [address] (BEAKER) (test code = BERTNE R [facility], 1538) [address]: Air Support Control Officer/Techni vanita ID = [id number] for PO KENDRICK VORA Basic metabolic [id number] 04:43:00 Test Item Value Reference Range Interpretation Comments Sodium (test code = 137 meq/L 208-285 8792-2) Potassium (test code = 4.4 meq/L 3.5-5.1 Speci men slightly 2823-3) hemolyzed Chloride (test code = 101 meq/L 98-107 5-0) CO2 (test code = 28 meq/L 22-29 8-9) BUN (test code = 13 mg/dL 7-21 3094-0) Creatinine (test code 0.73 mg/dL 0.57-1.25 Specim en slightly = 2160-0) hemolyzed Glucose (test code = 124 mg/dL 70-105 H 2345-7) Calcium (test code = 8.2 mg/dL 8.4-10.2 L 05752-2) EGFR (test code = 112 mL/min/1.73 [place] [address]-2) NOT ACCURATE CREATININE CLEARANCE IN PREDICTING GLOMERULAR FILTRATION RATE . ESTIMATED GFR I S NOT APPLICABLE FOR DIALYSIS PATIENTS. YOMI (test code = YOMI) Air Support Control Officer ID - NELLY W Lab Interpretation Abnormal (test code = 67487-0) [facility] 04:43[facility]00 Test Item Value Reference Range Interpretation Comments Magnesium (test code = 1.9 mg/dL 1.6-2.6 Speci men 08264-7) slightly hemolyzed YOMI (test code = YOMI) Air Support Control Officer ID - NELLY W Lab Interpretation Normal (test code = 43783-0) [facility] 04:43:00 Test Item Value Reference Range Interpretation Comments MAGNESIUM (BEAKER) 1.9 mg/dL 1.6-2.6 Specimen slightly (test code = 627) hemolyzed Air Support Control Officer ID - NELLY WBASIC METABOLIC [id number] 04:43:00 Test Item Value Reference Range Interpretation [...] S NOT APPLICABLE FOR DIALYSIS PATIEN TS. Air Support Control Officer ID - NELLY WCBC with platelet count + automated [id number] 04:32:00 Test Item Value Reference Range Interpretation [...] 450 K/CU MM MPV (test code = 84090-6) 11.2 fL 9.4-12.4 nRBC (test code = [...] 2801) Lab Interpretation (test code = Abnormal 42488-9) [facility] W/PLT COUNT & AUTO [id number] 04:32:00 Test Item Value Reference Range Interpretation [...] PERCENT (BEAKER) (test code = 2801) POCT-GLUCOSE [id number] 22:36:00 Test Item Value Reference Range Interpretation Comments POC-GLUCOSE METER 118 mg/dL 70-110 H : TESTED A T [facility] 67Anna (YASMEEN) (test code = [place], 1538) [address]: Air Support Control Officer/Techni vanita ID = [id number] for CA RPIO, RICARDO RAD, CHEST, 1 VIEW, NON [id number] 18:08:00Reason for exam:->Confirm pacemaker lead placementShould this [...] Vincent Verified Date/Time: 02/05/2020 18:08:29 Reading Location: [address] Transitional Reading Room XR chest 1 view portable / [id number] 18:08:00 Interface, External Ris In - 02/05/2020 [...] status post pacer placement.. Signed: Merritt Vincent MDRkerwinort Verified Date/Time: 02/05/2020 18:08:29 Reading Location: [address] Transitional Reading [facility] [id number] 17:06:00 Test Item Value Reference Range Interpretation Comments POC-GLUCOSE METER 91 mg/dL 70-110 : TESTED A T [facility] [address] (BEAKER) (test code = [place], 1538) [address]: Air Support Control Officer/Techni vanita ID = [id number] for JADYN DOMÍNGUEZ ECG 12 [id number] 13:06:41Interface, External Ris In - 02/05/2020 1:06 PM CDTVentricular Rate 64 BPMAtrial Rate 64 BPMP-R Interval 152 msQRS Duration 106 msQ-T Interval 380 msQTC Calculation(Bazett) 392 msP Shelby 51 degreesR Shelby 57 degreesT Shelby -21 degreesNormal sinus rhythmIncomplete left bundle branch blockNonspecific ST and T wave abnormalityAbnormal ECGNo previous ECGs availableConfirmed by MD JHON, BLANQUITA ([id number]) on 02/05/2020 1:06:39 [facility] HospitalBlood [facility], [id number] 11:49:00 Test Item Value Reference Range Interpretation [...] (test code = 5.3 mmol/L -2-3 H 1924-7) Patient Temperature (test code = 36.3 C 8310-5) FIO2 (test code = 1819) 21 % Lab Interpretation (test code = Abnormal 22606-4) [facility]BL[facility], [id number] 11:49:00 Test Item Value Reference Range Interpretation [...] (test code = 1819) 21.0 % Hemoglobin [id number] 10:59:00 Test Item Value Reference Range Interpretation Comments Hemoglobin A1C (test code = 4548-4) 8.3 % 4.3-6.1 H Lab Interpretation (test code = Abnormal 40556-1) [facility] CampusHEMOGLOBIN [id number] 10:59:00 Test Item Value Reference Range Interpretation Comments HEMOGLOBIN A1C (BEAKER) (test code = 8.3 % 4.3-6.1 H 368) ABORH, [id number] 09:54:00 Test Item Value Reference Range Interpretation Comments ABO Grouping (test code = 2588) AB Rh Factor (test code = 2589) POS [facility] CampusType and screen, [id number] 09:35:00 Test Item Value Reference Range Interpretation Comments ABO/RH AUTOMATED (BEAKER) (test AB POSITIVE code = 2260) Ab Scrn (test code = 890-4) NEGATIVE [facility] CampusRAD, CHEST, 1 VIEW, NON [id number] 07:14:00 Reason for exam:->hypoxiaShould this be performed at the bedside?->Yes FINAL REPORT RAD, CHEST, 1 VIEW, NON DEPT INDICATION: hypoxia COMPARISON: Prior day's exam FINDINGS: Portable frontal view of the chest. IMPRESSION: Support Lines: None Lungs and pleura: Clear lungs No pneumothorax.Heart and mediastinum: Unremarkable contours.Additional findings: None. Signed: JR Vaughn Robert MDRbackus hospital Verified Date/Time: 02/05/2020 07:14:51 ReadingLocation: JASMYN Ramirez [...] 40-70 H HCO3, Cuco (test code = 68584-8) 30 mmol/L 21-29 H Base Excess, Cuco (test code = 4.3 mmol/L -2-3 H 1927-3) Patient Temperature (test code = 37.0 C 8310-5) FIO2 (test code = 1819) 21 % Lab Interpretation (test code = Abnormal 44220-0) [facility] CampusBLOOD GAS, [id number] 02:00:00 Test Item Value Reference Range Interpretation [...] (test code = 1819) 21.0 % Lipid [id number] 01:56:00 Test Item Value Reference Range Interpretation Comments Triglycerides (test 119 mg/dL code = 2571-8) Cholesterol (test code 192 mg/dL = 2093-3) HDL (test code = 34 mg/dL 2085-9) LDL Calculated (test 134 mg/dL code = 89803-6) YOMI (test code = YOMI) Triglyceride Reference Range: Low Risk <150 Borderline 150-199 High Risk 200-499 Very High Risk >=500 Cholesterol Reference Range: Low Risk <200 Borderline 200-239 High Risk >240 HDL Cholesterol Reference Range: Low Risk >=60 High Risk <40 LDL Cholesterol Reference Range: Optimal <100 Near Optimal 100-129 Borderline 130-159 High 160-189 Very High >=190 Air Support Control Officer ID - NELLY Loredo [facility] CampusMAGNESIUM2020-08-04 01:56:00 Test Item Value Reference Range Interpretation Comments MAGNESIUM (BEAKER) (test code = 1.8 mg/dL 1.6-2.6 627) Air Support Control Officer ID - NELLY WBASIC METABOLIC [id number] 01:56:00 Test Item Value Reference Range Interpretation [...] S NOT APPLICABLE FOR DIALYSIS PATIEN TS. Air Support Control Officer ID - NELLY WLIPID [id number] 01:56:00 Test Item Value Reference Range Interpretation [...] Borderline 130-159 High 160-189 Very High >=190 Air Support Control Officer ID - DONNAWCBC W/PLT COUNT & AUTO [id number] 01:42:00 Test Item Value Reference Range Interpretation [...] PERCENT (BEAKER) (test code = 2801) SARS-CoV2/RT-PCR ([facility] & Ref Labs)2020-02-04 10:32:00 Test Item Value Reference Range Interpretation Comments SARS-COV2/RT-PCR Negative Not Detected, (test code = Negative, See 96201-7) external report for linked test SARS-COV-2 [facility] KYLIE PERFORMING LAB (test code = 47145-8) YOMI (test code = Negative result for [...] of the Act. Fact Sheet for Healthcare Providers:https://www.[employer]/sites/default/f angelina/product/documents/F act_Sheet_HC_Providers_L rbb_WMIJ-LoJ-1.pdf Fact Sheet for Healthcare Patients:https://www.[employer]/sites/default/fi les/product/documents/Fa ct_Sheet_Patients_Lyra_S ARS-CoV-2.pdf Performing Laboratory:[facility] [place] [address] [facility]ARS-[facility]OV2/RT-PCR ([facility] & REF LABS)2020-02-04 10:32:00 Test Item Value Reference Range Interpretation Comments SARS-COV2/RT-PCR (test Negative Not Detected, Negative, code = 5418803) See external report for linked test SARS-COV-[address] [facility] KYLIE (test code = 3042204) Negative result for this test determines that [...] 564(g) of the Act.Fact Sheet for Healthcare Providers:https://www.[employer]/sites/default/files/product/documents/Fact_Shee f_KH_Wxvjzsggo_Vwfg_NQTE-DwY-7.pdfFact Sheet for Healthcare Patients:https://www.[employer]/sites/default/files/product/ documents/Tuvg_Mccng_Vqlpawrn_Enlo_RFLA-VuV-6.pdfPerforming Laboratory:[facility] [place] [address]
--- OUTSIDE RECORDS SUMMARY | 2020-06-06 12:36 | XMS REPORT | Summary of Care ---
:1965 Author Organization [facility] Address [address] [place] [address] Care Team Providers Name Role Phone JOSEFINA Martinez Primary Care Provider Reason for Referral (Routine) Status Reason Specialty Diagnoses / Referred By Referred To Procedures Contact Contact Pending Review IM-PULMONARY Diagnoses Single subsegmental pulmonary embolism without acute cor pulmonale Marge Bailon DISEASE Procedures Discharge Follow-Up: Specialty Service IM-PULMONARY DISEASE; 1 Week SkylarDENG munozP [address] [place] [address] [place] [address] (Routine) Status Reason Specialty Diagnoses / Referred By Referred To Procedures Contact Contact Pending Review Diagnoses Single subsegmental pulmonary embolism without acute cor pulmonale Marge Bailon Nancy, FNP Procedures Discharge Follow-up: PCP EKTA MARTINEZ; 1 Week SkylarDENG munozP [address] [place] [address] Phone: [phone] Phone: Radiology Services (STAT) Status Reason Specialty Diagnoses / Referred By Referred To Procedures Contact Contact New Request Diagnostic Diagnoses SOB (shortness of breath) Sukhdev Gutierrez Radiology Procedures XR CHEST 1 VW COVID XR CHEST 1 TREE Sahni MD 301 [facility] [id number] [place] [address] Reason for Visit Reason Comments Shortness of Breath Auth/Cert Status Reason Specialty Diagnoses / Referred By Referred To Procedures Contact Contact Emergency Medicine Diagnoses SOB [facility] Emergency Dept [address] [place] [address] Fax: Encounter Details Date Type Department Care Team Description 03/11/2020 - Emergency [facility] Medicine Surgery Ed Gutierrez MD 301 [facility] [id number] [place] [address] [id number] Pulmonary embolism 03/13/2020 Unit Jamal Ponce MD 301 [place] [phone] [address] [place], [place] [address], [place] [id number] Allergies Active Allergy Reactions Severity Noted Date [...] sent through Care Everywhere. Apixaban oral tablets (Azerbaijani)documented in this encounter Progress Notes Marge Bailon FNP - 03/12/2020 2:48 PM CDT [facility] Hospitalist Progress Note SUBJECTIVE: Patient sitting up [...] addressed: FC Disposition: Home with Lucycullen Dunbar RECYCLING SORTER was viewed during this stay JOSEFINA Aleman [...] finacial assistance application. Prosper Larson RN, BSN [facility] Liquor Merchant O [phone] A ESTHERTSBeronica martinez LBSW - 03/11/2020 1:42 PM CDTSubjective Patient ID: Juan Miguel Langston is a 54 year old male. Care Management Social Functional Assessment Patient Name: Juan Miguel Langston Age: [age] year old Sex: male Patient's Previous Admission Date at [facility]: 11/20/2013 Current diagnosis and co-morbidities: pulmonary embolism;chest pain Readmission Questions: Was patient discharged from any acute care hospital within the last 30 days: No Social Functional Assessment: Primary language spoken/preferred: Azerbaijani Mental Status: Alert & Oriented to Person,Place & Time Information given by: Self Patient's support system: Other Name and number of support system: sunday Trejo [phone] Primary Watch Repairer: Self MPOA: No Living Arrangement: Home Address of living arrangement : [address] [place] [id number] Persons living in home: Self;Other Barriers to [...] Equipment: None Hemodialysis: No Community resources utilized: [employer] Funding Resources: [facility] Prescription coverage plan: Other Other prescription coverage plan: [facility] where meds are filled: Other Other [...] at home: yes. Describe: patient iscovered under [facility] Program and is unable to afford some of his medications. 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 Review of Systems Objective Physical Exam Assessment/Plan Will return home with sig other. SW will assist with Rx assistance needs as patient was recently discharged from [facility] and unable to afford discharge meds. TEE [place] [employer] Mortgage Underwriter - Care Management [facility] [phone] [email or web address] documented in this encounter H&P Notes Marge Bailon FNP - 03/11/2020 3:59 PM CDT [facility] Hospitalist Admission H&P Date of Service: 03/11/2020 CHIEF COMPLAINT: SOB HISTORY OF PRESENT ILLNESS Juan Miguel Langston is a 54 year old male with history of CAD, DM, HLD, HTN, current smoker, pacemaker and PE who presents with gradual unset of SOB. Patient just left [facility] for PE. Patient denies chest pain, leg [...] HISTORY Past Surgical History: Procedure Laterality Date [place] RIGHT HEART CATH O2 SATURATION & CARDIAC OUTPUT x 3 last done in 2017 at [facility] ALLERGIES Allergies Allergen Reactions Azithromycin Swelling [...] of Onset Coronary Heart Disease Mother of [place] at age 61 Diabetes Maternal Grandmother SOCIAL [...] file Gets together: Not on file Attends moravian service: Not on file Active member of [...] 5 minutes discussing smoking cessation Observation [place] [facility] was viewed during this stay JOSEFINA [...] - 03/11/2020 3:09 PM CDTAssociated Order(s): CONSULT DIATHERMY EQUIPMENT REPAIRER-ADULTPt currently has [facility] and unfortunately will not qualify for Home Health services for medication management or nursing services. Other arrangements will need to be made. TEE [employer] Mortgage Underwriter - Care Management [facility] [phone] [email or web address] documented in this encounter ED Notes Estefania Romero RN - 03/11/2020 8:41 AM CDTPatient reports shortness of breath since Tuesday after being discharged from [facility] in which he was diagnosed with a right lower lobe PE aSukhdev ayala MD - 03/11/2020 8:34 AM CDT [facility] Emergency Department Note Patient Name: Juan Miguel Langston Date of : 1965 54 year old male Treatment Room: [place] [address] Primary Care Physician: Ekta Martinez Patient Escorted by: Self [9] Mode of Arrival: Personal means [1] EMS 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 Reports being admitted to [facility] on 03/07/20 for new diagnosis of pulmonary embolism in right lower lobe. States he was discharged with a prescription on 03/08, which he did not fill due to cost. Returned to [facility] on 03/09 for same, admitted for treatment [...] History: Past Surgical History: Procedure Laterality Date [place] RIGHT HEART CATH O2 SATURATION & CARDIAC OUTPUT x 3 last done in 2017 at [facility] Review of Systems: Review of Systems [...] 14.7 Seconds INR 1.0 COMP. METABOLIC PANEL (35948) Collection Time: 03/11/20 8:56 AM Result Value [...] Detected Not Detected EKG: Interpreted by me ([id number]) SR@93, +55 nl axis, nsst/tw, qtc 435 Compared to EKG of 11/21/2019, no significant changes Orders and Treatments: Orders Placed This Encounter Procedures XR CHEST 1 VW COVID TROPONIN I aPTT PROTHROMBIN TIME / INR COMP. METABOLIC PANEL (06036) LIPASE, SERUM CBC WITH DIFF COVID-19 (ID NOW RAPID TESTING) Orders Placed This Encounter Medications enoxaparin (LOVENOX) injection 100 mg warfarin (COUMADIN) tablet 5 mg ED COURSE ED Course as of Mar 11 1122e Mar 11, 2020 1101 Discussed findings and plan with patient. He reports financial challenge with Eliquis. Also for5-day bridge of Lovenox with warfarin. [RK] 1042 Records release sent to [facility]. Case discussed with Hospitalist at [facility]. Seen 03/07 and 03/09. CT Thorax notable [...] R07.9 786.50 4. Coronary artery disease involving asa'carsarmi[place] coronary artery of asa'carsarmi[place] heart with angina pectoris I25.119 414.01 413.9 [...] 04/25/2020 Office Visit Pulmonary Disease Mayela Funes, [address] [place] [address] 08/20/2020 Office Visit Cardiology Eunice Chang M D [address] [place] [id number] 15 [phone] Name Type Priority Associated Diagnoses Date/Ti me [...] of this encounter Implants Implanted Type Area Divemaster Device Identifier Shelf Exp iration Model / [...] 8:56 SOB (shortness of Results for this (19197) AM CDT breath) procedure are i n [...] GLU 155 (H) 70 - 110 mg/dL [facility] Specimen Blood Performing Organization Address City/[facility] Cancer Centercode Phone Number [facility] CLIA: [id number] [place] [address] POCT GLUCOSE (AUTOMATED) (03/13/2020 7:27 AM CDT) Pathologist Sig nature POCT GLU 119 (H) 70 - 110 mg/dL [facility] Specimen Blood Performing Organization Address City/[facility]/Zipcode Phone Number [facility] CLIA: [id number] [place], [place] [address] LABORATORY [address] Prothrombin Time / INR (03/13/2020 3:37 AM CDT) PROTIME PATIENT 12.9 12.0 - 14.7 [facility] Seconds [facility] INR 1.0Comment: Normal [facility] INR <1.1; Warfarin [facility] Therapeutic range LABORATORY 2.0 to 3.0 or 2.5 to 3.5, depending upon the indications. Specimen Blood - ARM, RIGHT Performing Organization Address City/State/Zipcode Phone Number [facility] CLIA: [id number] [place] [address] Basic Metabolic Panel (NA, K, CL, CO2, GLUCOSE, BUN, CREATININE, CA) (03/13/2020 3:37 AM CDT) [facility] NA 138 135 - 145 [facility] mmol/L [facility] K 3.9 3.5 - 5.0 [facility] mmol/L [facility] CL 96 (L) 98 - 108 mmol/L [facility] CO2 TOTAL 37 (H) 23 - 31 mmol/L [facility] AGAP 5 2 - 16 [facility] BUN 15 7 - 23 mg/dL [facility] GLUCOSE 127 (H) 70 - 110 mg/dL [facility] CREATININE 0.65 0.60 - 1.25 [facility] mg/dL [facility] CALCIUM 9.0 8.6 - 10.6 [facility] mg/dL [facility] eGFR Calculation 128.0 mL/min/1.73m2 [facility] ([facility]ORATORY Gambian) eGFR Calculation 155.2 mL/min/1.73m2 [facility] () [facility] Specimen Blood - ARM, RIGHT Narrative Performed At Association of Glomerular Filtration Rate (GFR) [facility] and Staging of Kidney Disease* [...] tests). Performing Organization Address City/State/Zipcode Phone Number [facility] CLIA: [id number] [place] [address] CBC with Differential (03/13/2020 3:37 AM CDT) Pathologist Sig nature WBC 7.20 4.20 - 10.70 [facility] 10*3/L [facility] RBC 4.88 4.26 - 5.52 [facility] 10*6/L [facility] HGB 13.2 12.2 - 16.4 [facility] g/dL [facility] HCT 42.7 38.4 - 49.3 % [facility] MCV 87.5 81.7 - 95.6 fL [facility] MCH 27.0 26.1 - 32.7 pg [facility] MCHC 30.9 (L) 31.2 - 35.0 [facility] g/dL [facility] RDW-SD 51.2 38.5 - 51.6 fL [facility] RDW-CV 16.0 (H) 12.1 - 15.4 % [facility] PLT 249 150 - 328 [facility] 10*3/L [facility] MPV 11.4 9.8 - 13.0 fL [facility] NRBC/100 WBC 0.0 0.0 - 10.0 /100 [facility] WBCs [facility] NRBC x10^3 <0.01 10*3/L [facility] GRAN MAT (NEUT) % 62.4 % [facility] IMM GRAN % 0.30 % [facility] LYMPH % 25.3 % [facility] MONO % 8.5 % [facility] EOS % 2.8 % [facility] BASO % 0.7 % [facility] GRAN MAT x10^3(ANC) 4.50 1.99 - 6.95 [facility] 10*3/uL HOSPITAL LABORATORY IMM GRAN x10^3 <0.03 0.00 - 0.06 [facility] 10*3/uL HOSPITAL LABORATORY LYMPH x10^3 1.82 1.09 - 3.23 [facility] 10*3/uL HOSPITAL LABORATORY MONO x10^3 0.61 0.36 - 1.02 [facility] 10*3/uL HOSPITAL LABORATORY EOS x10^3 0.20 0.06 - 0.53 [facility] 10*3/uL HOSPITAL LABORATORY BASO x10^3 0.05 0.01 - 0.09 [facility] 10*3/uL [facility] Specimen Blood - ARM, RIGHT Performing Organization Address [facility] Phone Number [facility] CLIA: [id number] [place] [address] POCT GLUCOSE (AUTOMATED) (03/12/2020 7:44 PM CDT) Pathologist Sig nature POCT GLU 175 (H) 70 - 110 mg/dL [facility] Specimen Blood Performing Organization Address [facility] Phone Number [facility] CLIA: [id number] [place] [address] POCT GLUCOSE (AUTOMATED) (03/12/2020 3:35 PM CDT) Pathologist Sig nature POCT GLU 144 (H) 70 - 110 mg/dL [facility] Specimen Blood Performing Organization Address [facility] Phone Number [facility] CLIA: [id number] [place], [place] [address] LABORATORY [address] POCT GLUCOSE (AUTOMATED) (03/12/2020 10:57 AM CDT) Pathologist Sig nature POCT GLU 177 (H) 70 - 110 mg/dL [facility] Specimen Blood Performing Organization Address [facility] Phone Number [facility] CLIA: [id number] [place], [place] [id number] LABORATORY [address] POCT GLUCOSE (AUTOMATED) (03/12/2020 7:36 AM CDT) Pathologist Sig nature POCT GLU 135 (H) 70 - 110 mg/dL [facility] Specimen Blood Performing Organization Address [facility] Phone Number [facility] CLIA: [id number] [place] [address] ETHANOL (03/12/2020 4:26 AM CDT) Pathologist Sig nature ALCOHOL <10 mg/dL [facility] Specimen Blood - ARM, RIGHT Narrative Performed At <10 Negative [facility] 50-100 Toxic >100 Depression of SATELLITE TV INSTALLER >400 Fatalities Reported Performing Organization Address [facility] Phone Number [facility] CLIA: [id number] [place] [address] Prothrombin Time / INR (03/12/2020 4:26 AM CDT) PROTIME PATIENT 13.4 12.0 - 14.7 [facility] Seconds [facility] INR 1.1Comment: Normal [facility] INR <1.1; Warfarin [facility] Therapeutic range LABORATORY 2.0 to 3.0 or 2.5 to 3.5, depending upon the indications. Specimen Blood - ARM, RIGHT Performing Organization Address [facility] Phone Number [facility] CLIA: [id number] [place] [address] Basic Metabolic Panel (NA, K, CL, CO2, GLUCOSE, BUN, CREATININE, CA) (03/12/2020 4:26 AM CDT) Pathologist Sig nature NA 137 135 - 145 [facility] mmol/L [facility] K 4.0 3.5 - 5.0 [facility] mmol/L [facility] CL 97 (L) 98 - 108 mmol/L [facility] CO2 TOTAL 35 (H) 23 - 31 mmol/L [facility] AGAP 5 2 - 16 [facility] BUN 12 7 - 23 mg/dL [facility] GLUCOSE 148 (H) 70 - 110 mg/dL [facility] CREATININE 0.60 0.60 - 1.25 [facility] mg/dL [facility] CALCIUM 8.9 8.6 - 10.6 [facility] mg/dL [facility] eGFR Calculation 140.4 mL/min/1.73m2 [facility] ([facility]ORAT[facility] Gambian) eGFR Calculation 170.2 mL/min/1.73m2 [facility] LABORATORY Specimen Blood - ARM, RIGHT Narrative Performed At Association of Glomerular Filtration Rate (GFR) [facility] and Staging of Kidney Disease* [...] tests). Performing Organization Address City/State/Zipcode Phone Number [facility] CLIA: [id number] [place] [address] CBC with Differential (03/12/2020 4:26 AM CDT) [facility] WBC 8.73 4.20 - 10.70 [facility] 10*3/L [facility] RBC 5.00 4.26 - 5.52 [facility] 10*6/L [facility] HGB 13.6 12.2 - 16.4 [facility] g/dL [facility] HCT 44.0 38.4 - 49.3 % [facility] MCV 88.0 81.7 - 95.6 fL [facility] MCH 27.2 26.1 - 32.7 pg [facility] MCHC 30.9 (L) 31.2 - 35.0 [facility] g/dL [facility] RDW-SD 52.9 (H) 38.5 - 51.6 fL [facility] RDW-CV 16.4 (H) 12.1 - 15.4 % [facility] PLT 236 150 - 328 [facility] 10*3/L HOSPITAL LABORATORY MPV 10.8 9.8 - 13.0 fL [facility] NRBC/100 WBC 0.0 0.0 - 10.0 /100 [facility] WBCs [facility] NRBC x10^3 <0.01 10*3/L [facility] GRAN MAT (NEUT) % 66.6 % [facility] IMM GRAN % 0.30 % [facility] LYMPH % 23.0 % [facility] MONO % 7.2 % [facility] EOS % 2.6 % [facility] BASO % 0.3 % [facility] GRAN MAT x10^3(ANC) 5.80 1.99 - 6.95 [facility] 10*3/uL [facility] IMM GRAN x10^3 0.03 0.00 - 0.06 [facility] 10*3/uL HOSPITAL LABORATORY LYMPH x10^3 2.01 1.09 - 3.23 [facility] 10*3/uL HOSPITAL LABORATORY MONO x10^3 0.63 0.36 - 1.02 [facility] 10*3/uL HOSPITAL LABORATORY EOS x10^3 0.23 0.06 - 0.53 [facility] 10*3/uL HOSPITAL LABORATORY BASO x10^3 0.03 0.01 - 0.09 [facility] 10*3/uL HOSPITAL LABORATORY Specimen Blood - ARM, RIGHT Performing Organization Address [facility] Cancer Centercode Phone Number [facility] CLIA: [id number] [place] [address] POCT GLUCOSE (AUTOMATED) (03/11/2020 8:12 PM CDT) Pathologist Sig nature POCT GLU 158 (H) 70 - 110 mg/dL [facility] Specimen Blood Performing Organization Address [facility] Phone Number [facility] CLIA: [id number] [place] [address] XR CHEST 1 [...] atrium and right ventricle. Performing Organization Address [facility] Centercoky Phone Number PACS/VR/DOSE COVID-19 (ID NOW RAPID TESTING) (03/11/2020 9:39 AM CDT) SARS-CoV-2 Rapid ID Not Detected Not Detected [facility] Specimen Swab - NASOPHARYNGEAL SWAB Narrative Performed At ID NOW COVID-19 Assay is an isothermal nucleic [facility] acid amplification test intended for the qualitative detection of nucleic acid from SARS-CoV-2 viral RNA in nasopharyngeal (DIRECTOR OF CONVENTION SERVICES) specimens. It is used under Emergency Use [...] testing if clinically indicated. Performing Organization Address [facility]/Zipcode Phone Number [facility] CLIA: [id number] [place] [address] CBC WITH DIFF (03/11/2020 8:56 AM CDT) Pathologist Sig nora WBC 8.63 4.20 - 10.70 [facility] 10*3/L HOSPITAL LABORATORY RBC 5.03 4.26 - 5.52 [facility] 10*6/L [facility] HGB 13.6 12.2 - 16.4 [facility] g/dL HOSPITAL LABORATORY HCT 43.1 38.4 - 49.3 % [facility] MCV 85.7 81.7 - 95.6 fL [facility] MCH 27.0 26.1 - 32.7 pg [facility] MCHC 31.6 31.2 - 35.0 [facility] g/dL [facility] RDW-SD 50.8 38.5 - 51.6 fL [facility] RDW-CV 16.3 (H) 12.1 - 15.4 % [facility] PLT 257 150 - 328 [facility] 10*3/L [facility] MPV 10.7 9.8 - 13.0 fL [facility] NRBC/100 WBC 0.0 0.0 - 10.0 /100 [facility] WBCs [facility] NRBC x10^3 <0.01 10*3/L [facility] GRAN MAT (NEUT) % 68.7 % [facility] IMM GRAN % 0.30 % [facility] LYMPH % 19.4 % [facility] MONO % 8.8 % [facility] EOS % 2.3 % [facility] BASO % 0.5 % [facility] GRAN MAT x10^3(ANC) 5.93 1.99 - 6.95 [facility] 10*3/uL [facility] IMM GRAN x10^3 0.03 0.00 - 0.06 [facility] 10*3/uL HOSPITAL LABORATORY LYMPH x10^3 1.67 1.09 - 3.23 [facility] 10*3/uL HOSPITAL LABORATORY MONO x10^3 0.76 0.36 - 1.02 [facility] 10*3/uL HOSPITAL LABORATORY EOS x10^3 0.20 0.06 - 0.53 [facility] 10*3/uL HOSPITAL LABORATORY BASO x10^3 0.04 0.01 - 0.09 [facility] 10*3/uL HOSPITAL LABORATORY Specimen Blood - VENOUS Performing Organization Address City/State/Zipcode Phone Number [facility] CLIA: [id number] [place] [address] LIPASE, SERUM (03/11/2020 8:56 AM CDT) Pathologist Sig nature LIPASE 137 0 - 220 U/L [facility] Specimen Blood - VENOUS Performing Organization Address City/State/Zipcode Phone Number [facility] CLIA: [id number] [place] [address] LABORATORY [address] [facility] COMP. METABOLIC PANEL ([id number]) (03/11/2020 8:56 AM CDT) Pathologist Sig nature NA 138 135 - 145 [facility] mmol/L [facility] K 3.7 3.5 - 5.0 [facility] mmol/L [facility] CL 98 98 - 108 mmol/L [facility] CO2 TOTAL 33 (H) 23 - 31 mmol/L [facility] AGAP 7 2 - 16 [facility] BUN 12 7 - 23 mg/dL [facility] GLUCOSE 174 (H) 70 - 110 mg/dL [facility] CREATININE 0.60 0.60 - 1.25 [facility] mg/dL [facility] TOTAL BILI 0.2 0.1 - 1.1 mg/dL [facility] CALCIUM 10.0 8.6 - 10.6 [facility] mg/dL [facility] T PROTEIN 6.6 6.3 - 8.2 g/dL [facility] ALBUMIN 3.8 3.5 - 5.0 g/dL [facility] ALK PHOS 48 34 - 122 U/L [facility] ALTv 89 (H) 5 - 50 U/L [facility] AST(SGOT) 38 13 - 40 U/L [facility] eGFR Calculation 140.4 mL/min/1.73m2 [facility] ([facility] Gambian) eGFR Calculation 170.2 mL/min/1.73m2 [facility] () [facility] Specimen Blood - VENOUS Narrative Performed At Association of Glomerular Filtration Rate (GFR) [facility] and Staging of Kidney Disease* [...] abnormalities in imaging tests). Performing Organization Address [facility] Cent[facility]ode Phone Number [facility] CLIA: [id number] [place] [address] PROTHROMBIN TIME / INR (03/11/2020 8:56 AM CDT) [facility] Signature PROTIME PATIENT 13.1 12.0 - 14.7 [facility] LABORATORY INR 1.0Comment: Normal [facility] INR <1.1; Warfarin [facility] Therapeutic range LABORATORY 2.0 to 3.0 or 2.5 to 3.5, depending upon the indications. Specimen Blood - VENOUS Performing Organization Address [facility] Centercoky Phone Number [facility] CLIA: [id number] [place] [address] [address] aPTT (03/11/2020 8:56 AM CDT) [facility] Sig nature APTT Patient 24 23 - 38 Seconds [facility] Specimen Blood - VENOUS Narrative Performed At The [facility] patient population mean normal value [facility] for aPTT is 30 seconds. Performing Organization Address [facility] Cancer Centercode Phone Number [facility] CLIA: [id number] [place] [address] TROPONIN I (03/11/2020 8:56 AM CDT) Pathologist Sig nature TROPONIN I 0.019 <=0.034 ng/mL [facility] Specimen Blood - VENOUS Narrative Performed At Equal or Less than 0.034 ng/ml---Normal [facility] Note: Cardiac troponin begins to [...] biotin. Performing Organization Address City/State/Zipcode Phone Number [facility] CLIA: [id number] [place] [address] documented in this encounter Visit Diagnoses Diagnosis Single subsegmental pulmonary embolism w ithout acute cor pulmonale - Primary SOB (shortness of breath) Shortness of breath Chest pain, unspecified type Coronary artery disease involving asa'carsarmiut coronary artery of asa'carsarmiut heart with angina pectoris Type 2 diabetes [...] Phone Address Typ e / Group Dates [facility] [place] [place] [place]. [id number] 2018-Pres [phone] C I H C ent [address] [place] [address] documented as of this encounter
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
--- OUTSIDE RECORDS SUMMARY | 2020-06-06 12:36 | XMS REPORT | Summary of Care ---
:1965 Author Organization [facility] Address [address] [place] [address] Care Team Providers Name Role Phone JOSEFINA Lucero Primary Care Provider Reason for Referral (Routine) Status Reason Specialty Diagnoses / Referred By Referred To Procedures Contact Contact Pending Review Vascular Diagnoses Claudication of both lower extremities Ekta Lucero, Sonography Procedures BILATERAL DUPLEX SCAN OF ARTERY BY VASCULAR LAB [address] [address] (Routine) Status Reason Specialty Diagnoses / Referred By Referred To Procedures Contact Contact New Request Vascular Surgery Diagnoses Claudication of both lower extremities Ekta Lucero, Procedures CONSULT/REFERRAL VASCULAR SURGERY [address] [address] (Routine) Status Reason Specialty Diagnoses / Referred By Referred To Procedures Contact Contact New Request Cardiology Diagnoses Pulmonary embolism, unspecified chronicity, unspecified pulmonary embolism type, unspecified whether acute cor pulmonale present Ekta Lucero FNP Procedures CONSULT/REFERRAL CARDIOLOGY [address] [place] [address] Reason for Visit Reason Comments POST-HOSP Encounter Details Date Type Department Care Team Description 03/20/2020 [facility] [address] [place], [place] [phone] Pulmonary embolism, unspecified chronici ty, unspecified pulmonary embolism type, unspecified whether acute cor pulmonale present (Primary Dx); [facility], [facility] Primary Borderline diabetes mellitus; Clinic Claudication of both lower e xtremities; [address] [place] [address] Allergies Active Allergy Reactions Severity [...] hospitalization. Pt was transported via EMS to [facility] for dizziness and SOB. Was told that he hada PE in his LLL. There was some concern about the treatment plan and the patient left the hospital AMA to come to [facility]. Evidently was told that after his [...] x 3 last done in 2017 at [facility] Social History Socioeconomic History Marital [...] file Gets together: Not on file Attends pentecostalism service: Not on file Active member of [...] tablet; Refill: 11 Medication provided by the [employer] program 2. Borderline diabetes mellitus - POCT GLUCOSE(AGE >30DAYS) 204 in clinic 3. Claudication of both lower extremities * - CONSULT/REFERRAL VASCULAR SURGERY - BILATERAL DUPLEX SCAN OF ARTERY BY VASCULAR LAB; Future 4. Flu vaccine need - FLU VACC([id number]), 6+ MONTHS, IM, QUAD (FLUZONE/FLULAVAL/FLUARIX) Appropriate plan [...] issues and agrees with the plan. Ekta [facility] ilian Brown LVN - 03/20/2020 9:30 AM [...] to left deltoid. Tolerated well. Lot # [id number] / Exp. 12/31/2020. documented in this encounter Plan of Treatment Date Type Specialty Care Team Description 03/28/2020 Nurse Visit Cardiology Eunice Chang M D 146 [facility] [address] [place] [address] [phone] Visit, Adc Nurse 04/25/2020 Office Visit Pulmonary Disease Mayela Funes, DO [facility] [place] [phone] 08/20/2020 Office Visit Cardiology Eunice Chang M D 146 [facility] [address] [place] [address]75 15 Health Maintenance Due Date Last [...] of this encounter Implants Implanted Type Area Airport Operations Specialist Device Identifier Shelf Exp iration Model / Date Serial / L ot Pacemaker PACEMAKER documented as of this encounter Procedures Procedure Name Priority Date/Time Associated Diagnosis Comme nts FLU VACC Routine 03/24/2020 9:31 AM Flu vaccine need ([id number]), 6+ CDT MONTHS, IM, QUAD POCT GLUCOSE(AGE [...] Address T ype Group Dates BRAZORIA DANETTEORIA [id number] 2019-Prese [phone] PRIMARY CARE PRIMARY CARE nt [address] [place] [address] documented as of this encounter
--- OUTSIDE RECORDS SUMMARY | 2020-06-06 12:37 | XMS REPORT | Summary of Care ---
:1965 Author Organization [facility] Address [address] [place] [address] Care Team Providers Name Role Phone JOSEFINA Lucero Primary Care Provider Reason for Visit Reason Comments Refill Request Encounter Details Date Type Department Care Team Description 04/15/2020 Refill [facility] Ekta Riley FNP Refill Request [address] [place] [address] [place] [address] Allergies Active Allergy Reactions Severity Noted [...] Visit Pulmonary Disease Mayela Funes DO [address] [place] [address] [phone] 08/20/2020 Office Visit Cardiology Eunice Chang M D [address] [place] [address] [place] [address] [phone] Health Maintenance Due Date Last Done Comments [...] of this encounter Implants Implanted Type Area Roadability Machine Operator Device Identifier Shelf Exp iration Model / Date Serial / L ot Pacemaker PACEMAKER documented as of this encounter Results Not on filedocumented in this encounter Visit Diagnoses Diagnosis Peripheral edema - Primary Edema documented in this encounter Insurance Payer Benefit Plan Subscriber ID Effective Phone Address Typ e / Group Dates [employer] [id number] 2018-08/03 [phone] [facility] H C I H C /2020 [address] [address] ROSEANNA [place]. [place] [employer] [place]. [id number] 2018-Pres [phone] [facility] H C I H C [place]INE [place] [address] ROSEANNA CONDON [id number] 2019-Prese [phone] PRIMARY CARE PRIMARY CARE nt [address] [place] [address] documented as of this encounter
--- OUTSIDE RECORDS SUMMARY | 2020-06-06 12:37 | XMS REPORT | Summary of Care ---
:1965 Author Organization [facility] - Health Address [address] [place] [address] Care Team Providers Name Role Phone Nic JOSEFINA Primary Care Provider Encounter Details Date Type Department Care Team Description 03/20/2020 Orders Only [facility] Doctor Unassigned, No 301 [facility] [place] [address] 301 [place] [address] Allergies Active Allergy Reactions Severity Noted Date [...] Office Visit Pulmonary Disease Mayela Funes DO [address] [place] [address] 06/10/2020 Laboratory Only Cardiology Pacemaker/Icd, Adc 08/20/2020 Office Visit Cardiology Eunice Chang M D [address] [place] [address] [phone] Health Maintenance Due Date Last Done Comments [...] of this encounter Implants Implanted Type Area Scaffold Setter Device Identifier Shelf Exp iration Model / [...] Typ e / Group Dates ROSEANNA DAVIS [id number] 2018-08/03 [phone] [facility] H C I H C /2020 20 [address] [place] [address] ROSEANNA NEWELL. [id number] 2018-Pres [phone] [facility] H C I H C [place] [address] [place] [id number] ROSEANNA CONDON [id number] 2019-Prese [phone] PRIMARY CARE PRIMARY CARE nt [address] [place] [address] documented as of this encounter
--- OUTSIDE RECORDS SUMMARY | 2020-06-06 12:37 | XMS REPORT | Summary of Care ---
:1965 Author Organization [facility] Address [address] [place] [address] Care Team Providers Name Role Phone JOSEFINA [...] Ekta Lucero FNP Procedures CONSULT/REFERRAL PULMONARY [address] [place] [address] Encounter Details Date Type Department Care Team Description 04/25/2020 Office Visit [facility] Mayela Funes DO Dyspnea on exertion (Primary Dx); Pulmonary Clinic [address] [place] [address] Morbid obesity; [address] [place] [address] Dr. [facility] Chronic diastolic heart failure; [address] [place], [place] BRIDGET (obstructive sleep apnea ); [place] [address] Acute pulmonary embolism without acute c or pulmonale, unspecified pulmonary embolism type [id number] Allergies Active Allergy Reactions Severity Noted Date [...] Mayela Funes, - 04/25/2020 9:40 AM CDT [facility] Interventional Pulmonology Clinic Chief Complaint: Follow [...] has a past surgical history that includes 28541 - CT RIGHT HEART CATH O2 SATURATION & CARDIAC [...] By: Fitz Rachel MD Signed AT: 03/02/20 6155 Assessment: ICD-10-CM ICD-9-CM 1. Dyspnea on exertion R06.00 786.09 2. Morbid obesity E66.01 278.01 3. Chronic diastolic heart failure I50.32 428.32 4. BRIDGET (obstructive sleep apnea) G47.33 327.23 5. Acute pulmonary embolism without acute cor pulmonale, unspecified pulmonary embolism type I26.37363.19 Plan: 1. Will c/w Albuterol and Symbicort [...] Office Visit Cardiology Eunice Chang M D [address] [place] [address] [phone] 08/28/2020 Office Visit Pulmonary Disease Mayela Funes DO [address] [place] [address] Health Maintenance Due Date Last [...] of this encounter Implants Implanted Type Area Circulation Man Device Identifier Shelf Exp iration Model [...]
--- OUTSIDE RECORDS SUMMARY | 2020-06-06 12:37 | XMS REPORT | Summary of Care ---
:1965 Author Organization [facility] - Health Address [address] [place] [address] Care Team Providers Name Role Phone Nic JOSEFINA Primary Care Provider Encounter Details Date Type Department Care Team Description 04/02/2020 Orders Only [facility] Doctor Unassigned, No 301 [facility] [place] [address] [address] [place] [address] Allergies Active Allergy Reactions Severity Noted Date [...] Date Type Specialty Care Team Description 04/07/2020 Clothing Examiner Visit Cardiology Irma Vale MD [address] [address] Pc, Adc Vascular Room 1 - 04/15/2020 Laboratory Only Cardiology Pacemaker/Icd, Adc 04/25/2020 Office Visit Pulmonary Disease Mayela Funes, [facility] [place] [address] 08/20/2020 Office Visit Cardiology Eunice Chang M D 146 [facility] [address] [place], [place] [address] [phone] Health Maintenance Due Date Last Done Comments [...] of this encounter Implants Implanted Type Area Branch Lead Device Identifier Shelf Exp iration Model / Date Serial / L ot Pacemaker PACEMAKER documented as of this encounter Procedures Procedure Name Priority Date/Time Associated Diagnosis Comme nts OP CORRESPONDENCE Routine 04/02/2020 12:01 AM CDT documented in this encounter Results Not on filedocumented in this encounter Insurance Payer Benefit Plan Subscriber ID Effective Phone Address Typ e / Group Dates ROSEANNA CO. [employer] [id number] 2018-08/03 [phone] [facility] H C I H C /[address] [place] [address] ROSEANNA CONDON [id number] 2019-Prese [phone] PRIMARY CARE PRIMARY CARE nt [address] [place] [address] ROSEANNA [employer]. I [employer]. [id number] 2018-Pres [phone] [facility] H C I H C ent [address] [place] [address] documented as of this encounter
--- OUTSIDE RECORDS SUMMARY | 2020-06-06 12:37 | XMS REPORT | Summary of Care ---
:1965 Author Organization [facility] Address [address] [place] [address] Care Team Providers Name Role Phone JOSEFINA Lucero Primary Care Provider Reason for Visit (Routine) Status Reason Specialty Diagnoses / Referred By Referred To Procedures Contact Contact Closed Vascular Sonography Diagnoses Claudication of both lower extremities Ekta Lucero FNP Procedures BILATERAL DUPLEX SCAN OF ARTERY BY VASCULAR LAB [address] [place] [address] Encounter Details Date Type Department Care Team Description 04/07/2020 Rubber Flap Tuber Machine Operator Visit [facility] Irma Vale MD [facility] [address] [address] [address] Claudication of both Cardiology- Pc, Adc Vascular Room 1 - lower extremities [address], [address] [place] [address] Allergies Active Allergy Reactions Severity [...] Office Visit Pulmonary Disease Mayela Funes DO [address] [place] [address] 08/20/2020 Office Visit Cardiology Eunice Chang M D 146 [facility] [address] [place], [place] [address] [phone] Health Maintenance Due Date Last Done Comments [...] of this encounter Implants Implanted Type Area Newspaper Delivery Counselor Device Identifier Shelf Exp iration Model / Date Serial / L ot Pacemaker PACEMAKER documented as of this encounter Results Not on filedocumented in this encounter Visit Diagnoses Diagnosis Claudication of both lower extremities documented in this encounter Insurance Payer Benefit Plan Subscriber ID Effective Phone Address Typ e / Group Dates [employer]. [id number] 2018-Pres [phone] [facility] H C I H C ent [address] [place] [address] documented as of this encounter
--- OUTSIDE RECORDS SUMMARY | 2020-06-06 12:37 | XMS REPORT | Summary of Care ---
:1965 Author Organization [facility] Address [address] [place] [address] Care Team Providers Name Role Phone JOSEFINA Lucero Primary Care Provider Reason for Visit Reason Comments Refill Request Encounter Details Date Type Department Care Team Description 04/15/2020 Refill [facility] Ekta Riley FNP Refill Request [address] [place] [address] [place] [address] Allergies Active Allergy Reactions Severity Noted [...] 04/25/2020 Office Visit Pulmonary Disease Mayela Funes, [address] [place] [address] [phone] 08/20/2020 Office Visit Cardiology Eunice Chang M D 146 [facility] [address] [place] [address] [phone] Health Maintenance Due Date Last Done Comments [...] of this encounter Implants Implanted Type Area Track Grinder Device Identifier Shelf Exp iration Model / Date Serial / L ot Pacemaker PACEMAKER documented as of this encounter Results Not on filedocumented in this encounter Visit Diagnoses Diagnosis Peripheral edema - Primary Edema documented in this encounter Insurance Payer Benefit Plan Subscriber ID Effective Phone Address Typ e / Group Dates [employer] [id number] 2018-08/03 [phone] [facility] H C I H C /2020 20 [place] [address] [employer] [place]. [id number] 2018-Pres [phone] [facility] H C I H C ent 20 [place] [address] ROSEANNA CONDON [id number] 2019-Prese [phone] PRIMARY CARE PRIMARY CARE nt [address] [place] [address] documented as of this encounter
--- OUTSIDE RECORDS SUMMARY | 2020-06-06 12:38 | XMS REPORT | Summary of Care ---
:1965 Author Organization [facility] Address [address] [place] [address] Care Team Providers Name Role Phone Nic JOSEFINA Primary Care Provider Reason for Visit Reason Comments Orders Encounter Details Date Type Department Care Team Description 04/28/2020 Telephone [facility] ADC Pulmonary Mayela Funes DO Orders Clinic [address] Hannah Prince [address] [place] [address] [phone] Allergies Active Allergy Reactions Severity Noted Date [...] lvm for patient to return call @ [phone] elephone Encounter - Cesar Muniz - 04/28/2020 [...] Visit Cardiology Eunice Chang M D 146 [facility] [address] [place] [address] [phone] 08/28/2020 Office Visit Pulmonary Disease Mayela Funes DO [address] [place] [address] Health Maintenance Due Date Last Done Comments [...] of this encounter Implants Implanted Type Area Funeral Service Licensee Device Identifier Shelf Exp iration Model / Date Serial / L ot Pacemaker PACEMAKER documented as of this encounter Results Not on filedocumented in this encounter Insurance Payer Benefit Plan Subscriber ID Effective Phone Address Typ e / Group Dates [employer]. I [employer] [place]. [id number] 2018-08/03 [phone] HO [facility] H C I H C /[address] [place] [address] ROSEANNA [place]. I [employer] [id number] 2018-Pres [phone] HO [facility] H C I H C ent [address] [place] [address] ROSEANNA CONDON [id number] 2019-Prese [phone] PRIMARY CARE PRIMARY CARE nt 11 [place] [address] documented as of this encounter
--- OUTSIDE RECORDS SUMMARY | 2020-06-06 12:38 | XMS REPORT | Summary of Care ---
:1965 Author Organization [facility] Address [address] [place] [address] Care Team Providers Name Role Phone JOSEFINA Lucero Primary Care Provider Reason for Referral (Routine) Status Reason Specialty Diagnoses / Referred By Referred To Procedures Contact Contact New Request Cardiology Diagnoses Atypical chest pain Ekta Lucero FNP Procedures CONSULT/REFERRAL CARDIOLOGY [address] [place] [address] Reason for Visit Reason Comments POST-HOSP Encounter Details Date Type Department Care Team Description 05/08/2020 Office Visit [facility] Ekta Lucero FNP [address] [place] [address] Atypical chest pain (Primary Dx); [facility] Primary Borderline diabetes mellitus; Clinic Chronic obstructive pulmonar y disease, unspecified COPD type; [address] [place] [address] Allergies Active Allergy Reactions Severity Noted Date Comments Azithromycin Swelling High 08/11/2018 Throat swells Metoprolol Other - See comments 07/11/2018 Lowers heart rate too low documented as of this encounter (statuses as of 05/08/2020) Medications Medication Sig Dispensed Refills Start End Date Status Date Pitavastatin Take 1 tablet 90 tablet 3 Act warren (LIVALO) 4 mg by mouth daily. 0 TabIndications: Mixed hyperlipidemia metformin ER 500 mg Take 1 tablet 60 tablet 5 Active 24 hr by mouth 2 0 tabletIndications: (two) times Borderline diabetes daily with mellitus meals. lisinopril 40 mg Take 1 tablet 30 [...] apixaban (ELIQUIS) Take 1 tablet 60 tablet Active 5 mg by mouth 2 0 [...] tabletIndications: by mouth daily. 0 Peripheral edema isosorbide Take 30 mg by 0 Activ e dinitrate 30 mg mouth daily. tablet albuterol Inhale 2 Puffs 8.5 g 11 Activ e (PROVENTIL HFA) 90 every 6 (six) 0 mcg/actuation hours as needed inhalerIndications: for Wheezing or Chronic obstructive Shortness of pulmonary disease, Breath. unspecified COPD type traMADoL 50 mg Take 1 tablet 28 tablet 0 05/15/20 A ctive tabletIndications: by mouth every 0 20 acute pain, left 6 (six) hours shoulder pain as needed for Pain (scale 7-10) for up to 7 days. Indications: acute pain, left shoulder pain methocarbamoL Take 1 tablet 30 tablet 1 Ac tive (ROBAXIN-750) 750 by mouth 4 0 mg (four) times tabletIndications: daily as needed Atypical chest for Pain (scale pain, Acute pain of 7-10). left shoulder albuterol 90 Inhale 2 Puffs 8.5 g 3 05/08/20 Di scontinued mcg/actuation every 6 (six) 0 20 (A lternate inhalerIndications: hours as needed therapy) SOB (shortness of for Wheezing or breath) on exertion Shortness of Breath. fluticasone Inhale 1 Puff 2 1 Each 11 05/08/20 Di scontinued propion-salmeterol (two) times 0 20 (Alternate (AIRDUO RESPICLICK) daily. therapy) 113-14 mcg/actuation AePBIndications: Dyspnea on exertion, Cigarette nicotine dependence without complication, Sleep-disordered breathing traMADol 50 mg Take 1 tablet 28 tablet 0 05/08/20 D iscontinued tabletIndications: by mouth every 0 20 (Therapy Bilateral leg and 6 (six) hours completed) foot pain as needed for Pain (scale 4-6). 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 documented as of this encounter Last Filed Vital Signs Vital Sign Reading Time Taken Comments Blood Pressure 130/65 05/08/2020 9:43 AM OFFSHORE WIND OPERATIONS MANAGER Pulse 95 05/08/2020 9:43 AM OFFSHORE WIND OPERATIONS MANAGER Temperature 36.8 C (98.3 F) 05/08/2020 9:43 AM OFFSHORE WIND OPERATIONS MANAGER Respiratory Rate 24 05/08/2020 9:43 AM OFFSHORE WIND OPERATIONS MANAGER Oxygen Saturation 95% 05/08/2020 9:43 AM OFFSHORE WIND OPERATIONS MANAGER Inhaled Oxygen Concentration - - Weight 122.4 kg (269 lb 12.8 oz) 05/08/2020 9:43 AM OFFSHORE WIND OPERATIONS MANAGER Height 167.6 cm (5' 6") 05/08/2020 9:43 AM OFFSHORE WIND OPERATIONS MANAGER Body Mass Index 43.55 05/08/2020 9:43 AM OFFSHORE WIND OPERATIONS MANAGER documented in this encounter Progress Notes Ekta Lucero FNP - 05/08/2020 9:30 AM CST Cc: Chief Complaint Patient presents with POST-HOSP . HPI Juan Miguel Langston is a 54 year old male in clinic today for hospital follow up for chest pain to midsternum radiating to his left arm for 4 days. Patient [facility] ED on 05/05/20 via EMSfor SOB and chest pain that was unrelieved with sublingual nitro. Pt has had dyspnea with exertion and with supine position since last year. Had PE to the [facility] in early March after pacemaker was placed and he got confused and continued the plavix instead of starting Eliquis. Patient is also supposed be on Symbicort since February but has not received by the company. Was able to obtain OSH records for the hospitalization. 05/05/20 Admitting ECG noted normal sinus rhythm, ST & T wave deviation which was new from the ECG done on 03/05/20. Chest Xray was negative for acute cardiopulmonary process. No change from 03/05/20 05/06/20 Follow up ECG noted Twave abnormality with resolved ST deviation concerning for continued ischemia. His color flow EKG noted aortic sclerosis. Normal left ventricular size and function. Wall motion was normal. 05/07/20 Treadmill EKG notes not arrhythmias Rest Stress Cardiac imaging noted no focal stress induced ischemic changes. The EF was 42% as compared to 2019 of 36% CPK, MBS, and troponins were negative throughout the admission. ME excluded. Patient determined to be stable for discharge. 05/08/20 Today patient states he still has same pain that starts at the stereum and radiated down the left arm. States that MS IV helped for a few hours but then pain returned. No increased SOB or dizziness.No change in ROM to the left arm. Denies fevers or chills. Medications Outpatient Medications Prior to Visit Medication Sig Dispense Refill isosorbide dinitrate 30 mg tablet Take 30 mg by mouth daily. furosemide 40 mg tablet Take 1 tablet by mouth daily. 30 tablet 5 aspirin 81 mg chewable tablet Take 81 mg by mouth. apixaban (ELIQUIS) 5 mg tablet Take 1 tablet by mouth 2 (two) times daily. 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 1 Bottle 5 budesonide-formoteroL (SYMBICORT) 160-4.5 mcg/actuation inhaler Inhale 2 Puffs 2 (two) times daily. 10.2 g 11 lisinopril 40 mg tablet Take 1 tablet by mouth daily. 30 tablet 5 traMADol 50 mg tablet Take 1 tablet by mouth every 6 (six) hours as needed for Pain (scale 4-6).28 tablet 0 metformin ER 500 mg 24 hr tablet [...] 2 (two) times daily. 1 Each 11 No facility-administered medications prior to visit. Review of Systems Constitutional: Positive for activity change and fatigue. Respiratory: Positive for cough, shortness of breath and wheezing. Cardiovascular: Positive for chest pain and leg swelling. Gastrointestinal: Negative. Musculoskeletal: Positive for arthralgias. Skin: Negative. Neurological: Negative for dizziness, syncope, speech difficulty, light- headedness, numbness and headaches. Psychiatric/Behavioral: Negative. Endocrine: Endocrine negative Vital Signs BP 130/65 (BP Location: Right arm, Patient Position: Sitting) | Pulse 95 | Temp 36.8 C (98.3 F) (Tympanic) | Resp 24 | Ht 5' 6" (1.676 m) | Wt 269 lb 12.8 oz (122.4 kg) | SpO2 95% | BMI 43.55 kg/m Physical Exam Vitals signs and nursing note reviewed. Constitutional: General: He is not in acute distress. Appearance: He is obese. He is not ill-appearing. HENT: Right Ear: Tympanic membrane and ear canal normal. Left Ear: Tympanic membrane and ear canal normal. Nose: Nose normal. Mouth/Throat: Mouth: Mucous membranes are moist. Eyes: Extraocular Movements: Extraocular movements intact. Conjunctiva/sclera: Conjunctivae normal. Pupils: Pupils are equal, round, and reactive to light. Neck: Musculoskeletal: Normal range of motion. Cardiovascular: Rate and Rhythm: Normal rate and regular rhythm. Heart sounds: Normal heart sounds. Pulmonary: Effort: Pulmonary effort is normal. Breath sounds: Normal breath sounds. No wheezing, rhonchi or rales. Musculoskeletal: Normal range of motion. Skin: General: Skin is warm and dry. Neurological: General: No focal deficit present. Mental Status: He is alert and oriented to person, place, and time. Psychiatric: Mood and Affect: Mood normal. Behavior: Behavior normal. Thought Content: Thought content normal. Assessment/Plan 1. Borderline diabetes mellitus - POCT GLUCOSE(AGE >30DAYS) 89 in clinic 2. Chronic obstructive pulmonary disease, unspecified COPD type - albuterol (PROVENTIL HFA) 90 mcg/actuation inhaler; Inhale 2 Puffs every 6 (six) hours as needed for Wheezing or Shortness of Breath. Dispense: 8.5 g; Refill: 11 Will follow up with [employer] to find out if Symbicort was received. 3. Atypical chest pain - traMADoL 50 mg tablet; Take 1 tablet by mouth every 6 (six) hours as needed for Pain (scale 7-10) for up to 7 days. Indications: acute pain, left shoulder pain Dispense: 28 tablet; Refill: 0 - methocarbamoL (ROBAXIN-750) 750 mg tablet; Take 1 tablet by mouth 4 (four) times daily as needed for Pain (scale 7-10). Dispense: 30 tablet; Refill: 1 Referral to Cardiology for evaluation and treatment management 4. Acute pain of left shoulder Consider pain is from post-operative healing from the pacemaker in February? - traMADoL 50 mg tablet; Take 1 tablet by mouth every 6 (six) hours as needed for Pain (scale 7-10) for up to 7 days. Indications: acute pain, left shoulder pain Dispense: 28 tablet; Refill: 0 - methocarbamoL (ROBAXIN-750) 750 mg tablet; Take 1 tablet by mouth 4 (four) times daily as needed for Pain (scale 7-10). Dispense: 30 tablet; Refill: 1 Discussed Smoking cessation Appropriate plan of care, desired health behaviors, [...] issues and agrees with the plan. Ekta [facility] documented in this encounter Plan of Treatment Date Type Specialty Care Team Description 06/10/2020 Laboratory Only Cardiology Pacemaker/Icd, Adc 08/20/2020 Office Visit Cardiology Eunice Chang M D [address] [place] [address] 15 [phone] 08/28/2020 Office Visit Pulmonary Disease Mayela Funes DO [address] [place] [address] Health Maintenance Due Date Last Done Comments [...] of this encounter Implants Implanted Type Area Header Set Up Operator Device Identifier Shelf Exp iration Model / Date Serial / L ot Pacemaker PACEMAKER documented as of this encounter Procedures Procedure Name Priority Date/Time Associated Diagnosis Comme nts POCT GLUCOSE(AGE Routine 05/08/2020 9:54 AM Borderline diabet es Results for this >30DAYS) OFFSHORE WIND OPERATIONS MANAGER mellitus procedure are i n the results section. documented in this encounter Results POCT GLUCOSE(AGE >30DAYS) (05/08/2020 9:54 AM OFFSHORE WIND OPERATIONS MANAGER) Pathologist Sig nature POCT Glu (age>30days) 143 (A) 70 - 110 mg/dL Specimen Blood - CAPILLARY documented in this encounter Visit Diagnoses Diagnosis Atypical chest pain - Primary Other chest pain Borderline diabetes mellitus Other abnormal glucose Chronic obstructive pulmonary disease, u nspecified COPD type Acute pain of left shoulder documented in this encounter Insurance Payer Benefit Plan / Subscriber ID Effective Phone Address T ype Group Dates BRAZ[place] BRAZORIA [id number] 2019-Prese [phone] [facility] [address] [place] [address] documented as of this encounter
--- OUTSIDE RECORDS SUMMARY | 2020-06-06 12:38 | XMS REPORT | Summary of Care ---
:1965 Author Organization [facility] Address [address] [place] [address] Care Team Providers Name Role Phone JOSEFINA [...] Ekta Lucero FNP Procedures CONSULT/REFERRAL PULMONARY [address] [place] [address] Encounter Details Date Type Department Care Team Description 04/25/2020 Office Visit [facility] ADC Mayela Funes DO Dyspnea on exertion (Primary Dx); Pulmonary Clinic [address] [place] [address] Morbid obesity; [address] [place] [address] [facility] Chronic diastolic heart failure; [address] [place], [place] BRIDGET (obstructive sleep apnea ); [place] [address] Acute pulmonary embolism without acute c or pulmonale, unspecified pulmonary embolism type [id number] Allergies Active Allergy Reactions Severity Noted Date [...] Mayela Funes, - 04/25/2020 9:40 AM CDT [facility] Interventional Pulmonology Clinic Chief Complaint: Follow up [...] has a past surgical history that includes [address] - [place] RIGHT HEART CATH O2 SATURATION & CARDIAC [...] By: Fitz Rachel MD Signed AT: 03/02/20 8212 Assessment: ICD-10-CM ICD-9-CM 1. Dyspnea on exertion R06.00 786.09 2. Morbid obesity E66.01 278.01 3. Chronic diastolic heart failure I50.32 428.32 4. BRIDGET (obstructive sleep apnea) G47.33 327.23 5. Acute pulmonary embolism without acute cor pulmonale, unspecified pulmonary embolism type I26.89374.19 Plan: 1. Will c/w Albuterol and Symbicort [...] Office Visit Cardiology Eunice Chang M D [address] [place] [address] 15 [phone] 08/28/2020 Office Visit Pulmonary Disease Mayela Funes DO [address] [place] [address] Health Maintenance Due Date Last [...] of this encounter Implants Implanted Type Area Software Firmware Engineer Device Identifier Shelf Exp iration Model [...]
--- OUTSIDE RECORDS SUMMARY | 2020-06-06 12:38 | XMS REPORT | Summary of Care ---
:1965 Author Organization [facility] Address [address] [place] [address] Care Team Providers Name Role Phone Nic JOSEFINA Primary Care Provider Reason for Visit Reason Comments Orders Encounter Details Date Type Department Care Team Description 04/28/2020 Telephone [facility] ADC Pulmonary Mayela Funes DO Orders Clinic [address] [place] [address] [phone] Allergies Active Allergy Reactions Severity Noted Date [...] Visit Cardiology Eunice Chang M D [address] [facility] [address] [place] [address] [phone] 08/28/2020 Office Visit Pulmonary Disease Mayela Funes DO [address] [place] [address] Health Maintenance Due Date Last [...] of this encounter Implants Implanted Type Area Eight Arm Operator Device Identifier Shelf Exp iration Model / Date Serial / L ot Pacemaker PACEMAKER documented as of this encounter Results Not on filedocumented in this encounter Insurance Payer Benefit Plan Subscriber ID Effective Phone Address Typ e / Group Dates [employer] [place] ROSEANNA [employer]. [id number] 2018-08/03 [phone] [facility] /2020 [address] [id number] ROSEANNA CONDON COShelby [id number] 2018-Pres [phone] [facility] [place] [address] [place] [address] ROSEANNA CONDON [id number] 2019-Prese [phone] [facility]IMARY CARE nt [address] [place] [address] documented as of this encounter
--- OUTSIDE RECORDS SUMMARY | 2020-06-06 12:38 | XMS REPORT | Summary of Care ---
:1965 Author Organization [facility] Address [address] [place] [address] Care Team Providers Name Role Phone Nic JOSEFINA Primary Care Provider Reason for Visit Reason Comments Orders Encounter Details Date Type Department Care Team Description 04/28/2020 Telephone [facility] ADC Pulmonary Mayela Funes DO Orders Clinic [address] [place] [address] [phone] Allergies Active Allergy Reactions Severity Noted Date [...] lvm for patient to return call @ [phone] signed by Sayra Ordoñez MA at 04/28/2020 [...] Visit Cardiology Eunice Chang M D [address] [facility] [address] [place], [place] [address] [phone] 08/28/2020 Office Visit Pulmonary Disease Mayela Funes, [address] [place] [address] Health Maintenance Due Date Last [...] of this encounter Implants Implanted Type Area Painter Device Identifier Shelf Exp iration Model / Date Serial / L ot Pacemaker PACEMAKER documented as of this encounter Results Not on filedocumented in this encounter Insurance Payer Benefit Plan Subscriber ID Effective Phone Address Typ e / Group Dates [employer] [id number] 2018-08/03 [phone] [facility] H C I [facility] C /[address] [place] [address] [place] [id number] 2018-Pres [phone] [facility] C I [facility] ent [address] [place] [address] ROSEANNA CONDON [id number] 2019-Prese [phone] [facility] PRIMARY CARE nt [address] [place] [address] documented as of this encounter
--- OUTSIDE RECORDS SUMMARY | 2020-06-06 12:39 | XMS REPORT | Summary of Care ---
:1965 Author Organization [facility] Address [address] [place] [address] Care Team Providers Name Role Phone JOSEFINA Lucero Primary Care Provider Reason for Referral (Routine) Status Reason Specialty Diagnoses / Referred By Referred To Procedures Contact Contact New Request Cardiology Diagnoses Atypical chest pain Ekta Lucero FNP Procedures CONSULT/REFERRAL CARDIOLOGY [address] [place] [address] Reason for Visit Reason Comments POST-HOSP Encounter Details Date Type Department Care Team Description 05/08/2020 Office Visit [facility] Ekta Lucero FNP [address] [place] [address] Atypical chest pain (Primary Dx); [facility] Primary Borderline diabetes mellitus; Clinic Chronic obstructive pulmonar y disease, unspecified COPD type; [address] Acute [place] [address] Allergies Active Allergy Reactions Severity [...] with No / Unsure 05/08/2020 9:46 AM CONTRACTS INTERN someone who was confirmed or suspected to have Coronavirus / COVID-19? documented as of this encounter Last Filed Vital Signs Vital Sign Reading Time Taken Comments Blood Pressure 130/65 05/08/2020 9:43 AM CONTRACTS INTERN Pulse 95 05/08/2020 9:43 AM CONTRACTS INTERN Temperature 36.8 C (98.3 F) 05/08/2020 9:43 AM CONTRACTS INTERN Respiratory Rate 24 05/08/2020 9:43 AM CONTRACTS INTERN Oxygen Saturation 95% 05/08/2020 9:43 AM CONTRACTS INTERN Inhaled Oxygen Concentration - - Weight 122.4 kg (269 lb 12.8 oz) 05/08/2020 9:43 AM CONTRACTS INTERN Height 167.6 cm (5' 6") 05/08/2020 9:43 AM CONTRACTS INTERN Body Mass Index 43.55 05/08/2020 9:43 AM CONTRACTS INTERN documented in this encounter Progress Notes Ekta Lucero FNP - 05/08/2020 9:30 AM CST Cc: Chief Complaint Patient presents with POST-HOSP . HPI Juan Miguel Langston is a 54 year old male in clinic today for hospital follow up for chest pain to midsternum radiating to his left arm for 4 days. Patient [facility] ED on 05/05/20 via EMSfor SOB [...] and troponins were negative throughout the admission. [place] excluded. Patient determined to be stable for [...] agrees with the plan. Ekta [facility] documented in this encounter Plan of Treatment Date Type Specialty Care Team Description 06/10/2020 Laboratory Only Cardiology Pacemaker/Icd, Adc 08/20/2020 Office Visit Cardiology Eunice Chang M D [address] [place] [address] [phone] 08/28/2020 Office Visit Pulmonary Disease Mayela Funes DO [address] [place] [address] Health Maintenance Due Date Last Done Comments [...] of this encounter Implants Implanted Type Area Scrap Drop Operator Device Identifier Shelf Exp iration Model / Date Serial / L ot Pacemaker PACEMAKER documented as of this encounter Procedures Procedure Name Priority Date/Time Associated Diagnosis Comme nts POCT GLUCOSE(AGE Routine 05/08/2020 9:54 AM Borderline diabet es Results for this >30DAYS) CONTRACTS INTERN mellitus procedure are i n the results section. documented in this encounter Results POCT GLUCOSE(AGE >30DAYS) (05/08/2020 9:54 AM CONTRACTS INTERN) Pathologist Sig nature POCT Glu (age>30days) 143 [...] Address T ype Group Dates BRAZORIA BRAZORIA [id number] 2019-Prese [phone] [facility] PRIMARY CARE nt [address] [place] [address] documented as of this encounter
--- OUTSIDE RECORDS SUMMARY | 2020-06-06 12:39 | XMS REPORT | Summary of Care ---
:1965 Author Organization [facility] Address [address] [place] [address] Care Team Providers Name Role Phone JOSEFINA Lucero Primary Care Provider Reason for Visit Reason Comments Refill Request Encounter Details Date Type Department Care Team Description 05/12/2020 Refill [facility] Ekta Riley FNP Refill Request [address] [place] [address] [place] [address] Allergies Active Allergy Reactions Severity Noted Date Comments Azithromycin Swelling High 08/11/2018 Throat swells Metoprolol Other - See comments 07/11/2018 Lowers heart rate too low documented as of this encounter (statuses as of 05/14/2020) Medications Medication Sig Dispensed Refills Start End Date Status Date Pitavastatin Take 1 tablet 90 tablet 3 Act warren (LIVALO) 4 mg by mouth daily. 0 TabIndications: Mixed hyperlipidemia lisinopril 40 mg Take 1 tablet 30 [...] tablet albuterol Inhale 2 Puffs 8.5 g Activ e (PROVENTIL HFA) 90 every 6 [...] pain, Acute pain of 7-10). left shoulder metformin ER 500 mg Take 1 tablet 60 tablet 5 Active 24 hr by mouth 2 0 tabletIndications: (two) times Borderline diabetes daily with mellitus meals. metformin ER 500 mg Take 1 tablet 60 tablet 5 Discontinued 24 hr by mouth 2 0 20 (Reorder) tabletIndications: (two) times Borderline diabetes daily with mellitus meals. 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 documented as of this encounter Last Filed Vital Signs Not on filedocumented in this encounter Miscellaneous Notes Telephone Encounter - Lilian Wesley LVN - 05/14/2020 9:05 AM CSTPatient notified and informed that prescription refill has been sent to pharmacy. URIZING FURNACE OPERATOR Telephone Encounter - Lilian Wesley LVN - 05/12/2020 3:37 PM CSTCall received from patient requesting refill on Metformin ER 500mg tab (1) tab by mouth two times daily. LAWRENCE - 05/08/2020 LAST REFILL - 07/19/2019, #60, 5 RF LAST LAB - 07/17/19 (A1C+ 7.1H), 05/08/20 (Glucose +143H) NOV - None Request for refill routed to provider. URIZING FURNACE OPERATOR documented in this encounter Plan of Treatment Date Type Specialty Care Team Description 05/14/2020 Office Visit Cardiology Eunice Chang M D [address] [facility] [address] [place] [address] [phone] 06/10/2020 Laboratory Only Cardiology Pacemaker/Icd, Adc 08/20/2020 Office Visit Cardiology Eunice Chang M D [address] [facility] [address] [place], [place] [address] 08/28/2020 Office Visit Pulmonary Disease Mayela Funes, [address] [place] [phone] Health Maintenance Due Date Last Done [...] of this encounter Implants Implanted Type Area Tire Fabric Impregnating Range Tender Device Identifier Shelf Exp iration Model / Date Serial / L ot Pacemaker PACEMAKER documented as of this encounter Results Not on filedocumented in this encounter Visit Diagnoses Diagnosis Borderline diabetes mellitus Other abnormal glucose documented in this encounter Insurance Payer Benefit Plan Subscriber ID Effective Phone Address Typ e / Group Dates [employer] [place] [place] ROSEANNA COShelby [id number] 2018-08/03 [phone] [facility] [address] [place]INE [place] [address] [facility] [place] [id number] 2018-05/04 [phone] [facility] [place] [id number] documented as of this encounter
--- OUTSIDE RECORDS SUMMARY | 2020-06-06 12:39 | XMS REPORT | Summary of Care ---
:1965 Author Organization [facility] Address [address] [place] [address] Care Team Providers Name Role Phone JOSEFINA Lucero Primary Care Provider Reason for Visit Reason Comments Refill Request Encounter Details Date Type Department Care Team Description 05/12/2020 Refill [facility] Ekta Riley FNP Refill Request [address] [place] [address] [place] [address] Allergies Active Allergy Reactions Severity Noted Date Comments Azithromycin Swelling High 08/11/2018 Throat swells Metoprolol Other - See comments 07/11/2018 Lowers heart rate too low documented as of this encounter (statuses as of 05/13/2020) Medications Medication Sig Dispensed Refills Start End [...] as of this encounter (statuses as of 05/13/2020) Active Problems Problem Noted Date Pulmonary embolism [...] as of this encounter (statuses as of 05/13/2020) Immunizations Name Administration Dates Next Due Influenza [...] with No / Unsure 05/08/2020 9:46 AM CADDY PACKER someone who was confirmed or suspected to [...] None Request for refill routed to provider. Y PACKER documented in this encounter Plan of Treatment Date Type Specialty Care Team Description 05/14/2020 Office Visit Cardiology Eunice Chang M D [address] [facility] [address] [place], [place] [address] [phone] 06/10/2020 Laboratory Only Cardiology Pacemaker/Icd, Adc 08/20/2020 Office Visit Cardiology Eunice Chang M D [address] [facility] [place], [place] [address] [phone] 08/28/2020 Office Visit Pulmonary Disease Marin Anastaciawoodrowfrederic, [facility] [place] [address] Health Maintenance Due Date Last [...] of this encounter Implants Implanted Type Area Tailer Off Device Identifier Shelf Exp iration Model / Date Serial / L ot Pacemaker PACEMAKER documented as of this encounter Results Not on filedocumented in this encounter Visit Diagnoses Diagnosis Borderline diabetes mellitus Other abnormal glucose documented in this encounter Insurance Payer Benefit Plan Subscriber ID Effective Phone Address Typ e / Group Dates [employer] [id number] 2018-08/03 [phone] [facility] [place] [address] [employer] [place] [employer] [place] [id number] 2018 [phone] [facility] KATHARINE MORENO [address] documented as of this encounter
--- OUTSIDE RECORDS SUMMARY | 2020-06-06 12:39 | XMS REPORT | Summary of Care ---
:[address] [facility] Address [address] [place] [address] Care Team Providers Name Role Phone JOSEFINA Lucero Primary Care Provider Reason for Visit Reason Comments Follow-up 3mo (Routine) Status Reason Specialty Diagnoses / Referred By Referred To Procedures Contact Contact Closed IM-CARDIOVASCULAR Diagnoses hfu Ekta Lucero FNP Cai, Qiangjun, DISEASE / Procedures CONSULT CARDIOLOGY FOLLOW-UP VISIT [address] [facility] Cardiology [address] Phone: [address] [place] [address] Encounter Details Date Type Department Care Team Description 05/14/2020 Office Visit [facility] Eunice Chang M D Chest pain, unspecified type (Primary Dx ); Cardiology- [address] Pulmonary embolism, unspecif ied chronicity, unspecified pulmonary embolism type, unspecified whether acute cor pulmonale present; [address] [place] [address] Sick sinus syndrome due to SA node dysfu nction; Drive, [address] Essential hypertension; [place], [place] [address] Mixed hyperlipidemia; [address] BRIDGET (obstructive sleep apnea); [phone] Morbid ob esity with body mass index of 40.0-49.9 Allergies Active Allergy Reactions Severity Noted Date Comments Azithromycin Swelling High 08/11/2018 Throat swells Metoprolol Other - See comments 07/11/2018 Lowers heart rate too low documented as of this encounter (statuses as of 05/14/2020) Medications Medication Sig Dispensed Refills Start Date End Date Status Pitavastatin (LIVALO) Take 1 tablet by 90 tablet 3 07/19/2019 Active 4 mg TabIndications: mouth daily. Mixed hyperlipidemia lisinopril 40 mg Take 1 tablet by [...] 04/15/2020 Active tabletIndications: mouth daily. Peripheral edema isosorbide dinitrate Take 30 mg by 0 Active 30 mg tablet mouth daily. albuterol (PROVENTIL Inhale 2 Puffs 8.5 g 05/08/2020 Active HFA) 90 mcg/actuation every 6 (six) inhalerIndications: hours as needed Chronic obstructive for Wheezing or pulmonary disease, Shortness of unspecified COPD type Breath. traMADoL 50 mg Take 1 tablet by 28 tablet 0 05/08/2020 020 Active tabletIndications: mouth every 6 acute pain, left (six) hours as shoulder pain needed for Pain (scale 7-10) for up to 7 days. Indications: acute pain, left shoulder pain methocarbamoL Take 1 tablet by 30 tablet 1 05/08/2020 Active (ROBAXIN-750) 750 mg mouth 4 (four) tabletIndications: times daily as Atypical chest pain, needed for Pain Acute pain of left (scale 7-10). shoulder metformin ER 500 mg Take 1 tablet by 60 tablet 5 05/13/2020 Active 24 hr mouth 2 (two) tabletIndications: times daily with Borderline diabetes meals. mellitus documented as of this encounter (statuses as [...] been in contact with No / Unsure 05/14/2020 9:37 AM EMBROIDERY PATTERNMAKER someone who was confirmed or suspected to have Coronavirus / COVID-19? documented as of this encounter Last Filed Vital Signs Vital Sign Reading Time Taken Comments Blood Pressure 149/75 05/14/2020 10:04 AM EMBROIDERY PATTERNMAKER Pulse 86 05/14/2020 10:01 AM EMBROIDERY PATTERNMAKER Temperature - - Respiratory Rate 18 05/14/2020 10:01 AM EMBROIDERY PATTERNMAKER Oxygen Saturation 94% 05/14/2020 10:01 AM EMBROIDERY PATTERNMAKER Inhaled Oxygen Concentration - - Weight 124.3 kg (274 lb 1.6 oz) 05/14/2020 10:01 AM EMBROIDERY PATTERNMAKER Height 167.6 cm (5' 6") 05/14/2020 10:01 AM EMBROIDERY PATTERNMAKER Body Mass Index 44.24 05/14/2020 10:01 AM EMBROIDERY PATTERNMAKER documented in this encounter Progress Notes Eunice Chang MD - 05/14/2020 10:00 AM CST CARDIOLOGY CLINIC NOTE 05/14/2020 Reason for Referral/Presenting Complaint: s/p pacemaker chest pain PCP: Ekta Lucero History of Present Illness: Juan Miguel Langston is a 54 years old male with history of DM, HTN, HLD, non obstructive CAD, morbid obesity, BRIDGET not on C-PAP and smoking. Chronic chest pain for years. He had LHC in [facility] in 2016 showing non obstructive CAD. Apparently had LHC In 2017 in [facility]--no PCI done. He has daily chest pain. It is central and left sided sharp pain, radiating to the left arm, more so when lying flat, non exertional, actually less when walking. Associated with mild SOB. NTG does not help. In 02/2020 he was admitted in [facility] for several significant sinus pauses on telemetry, some measuring > 7 seconds in length, subsequently underwent Medtronic dual chamber pacemaker on 02/05/2020. 02/05/2020- implant of MDT DDD pacemaker via left subclavian vein Falls asleep easy. He went to [facility] for chest pain last week. Had a normal stress test. Chest pain is worse with body movement. [facility] 05/2019 EKG--Inferior ST depression ECHO--Normal LVEF Lexiscan [...] Current Outpatient Medications Medication Sig Dispense Refill metformin ER 500 mg 24 hr tablet Take 1 tablet by mouth 2 (two) times daily with meals. 60 tablet 5 albuterol (PROVENTIL HFA) 90 mcg/actuation inhaler Inhale 2 Puffs every 6 (six) hours as needed for Wheezing or Shortness of Breath. 8.5 g 11 isosorbide dinitrate 30 mg tablet Take 30 mg by mouth daily. traMADoL 50 mg tablet Take 1 tablet by mouth every 6 (six) hours as needed for Pain (scale 7-10)for up to 7 days. Indications: acute pain, left shoulder pain 28 tablet 0 furosemide 40 mg tablet Take 1 tablet by mouth daily. 30 tablet 5 aspirin 81 mg chewable tablet Take 81 mg by mouth. apixaban (ELIQUIS) 5 mg tablet Take 1 tablet by mouth 2 (two) times daily. 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 10.2 g 11 lisinopril 40 mg tablet Take 1 tablet by mouth daily. 30 tablet 5 Pitavastatin (LIVALO) 4 mg Tab Take 1 tablet by mouth daily. 90 tablet 3 methocarbamoL (ROBAXIN-750) 750 mg tablet Take 1 tablet by mouth 4 (four) times daily as needed for Pain (scale 7-10). 30 tablet 1 nitroglycerin 0.[address] 1 tablet under the tongue every 5 (five) minutes as needed for Chest pain. 1 Bottle 5 No current facility-administered medications for this visit. [...] file Gets together: Not on file Attends faith service: Not on file Active member of [...] with girlfriend of 3 years. Family History Family History Problem Relation Age of Onset Coronary Heart Disease Mother of [place] at age 61 Diabetes Maternal Grandmother Physical Examination: BP (!) 149/75 | Pulse 86 | Resp 18 | Ht 5' 6" (1.676 m) | Wt 274 lb 1.6 oz (124.3 kg) | SpO2 94% | BMI 44.24 kg/m Constitutional: alert and oriented x 3 [...] vessel. LVEDP 20 Assessment/Plan: ICD-10-CM ICD-9-CM 1. Chest pain, unspecified type R07.9 786.50 2. Pulmonary embolism, unspecified chronicity, unspecified pulmonary embolism type, unspecified whether acute cor pulmonale present I26.99 415.19 3. Sick sinus syndrome due to SA node dysfunction I49.5 427.81 4. Essential hypertension I10 401.9 5. Mixed hyperlipidemia E78.2 272.2 6. BRIDGET (obstructive sleep apnea) G47.33 327.23 7. Morbid obesity with body mass index of 40.0-49.9 E66.01 278.01 Sinus pause, s/p Medtronic pacemaker--Incision healing well. Will schedule a pacemaker check in 1 month. Usual incisional care discussed. Chest pain--Non-cardiac. 4 LHC in last 5 years all showing no significant obstruction. Poor responseto NTG. Negative nuclear stress test. Will not pursue any cardiac testing. Non cardiac evaluation. Chest pain is worse with movement. CAD--Non obstructive. Continue ASA and livalo. HTN--Elevated today. Advised to check regularly for adjustment. HLD--On livalo. HFpEF--Trace leg edema. LVEDP high on cath. Possible HFpEF. Discussed low salt diet, weight loss andcontinue lasix. Patient was counseled for lifestyle modifications including: diet, exercise, weight loss and smokingcessation. RTC 6 months Eunice Chang MD, FACC, DOROTHY Drop Wire Operator, Division of Cardiology [facility] documented in this encounter Plan of Treatment Date Type Specialty Care Team Description 06/10/2020 Laboratory Only Cardiology Pacemaker/Icd, Adc 08/28/2020 Office Visit Pulmonary Disease Mayela Funes, [address] [place] [phone] 11/11/2020 Office Visit Cardiology Eunice Chang M D [address] [facility] [address] [place] [address] Health Maintenance Due Date Last [...] of this encounter Implants Implanted Type Area Stationary Engineer Device Identifier Shelf Exp iration Model / Date Serial / L ot Pacemaker PACEMAKER documented as of this encounter Results Not on filedocumented in this encounter Visit Diagnoses Diagnosis Chest pain, unspecified type - Primary Pulmonary embolism, unspecified chronici ty, unspecified pulmonary embolism type, unspecified whether acute cor pulmonale present Sick sinus syndrome due to SA node dysfu nction Essential hypertension Unspecified essential hypertension Mixed hyperlipidemia BRIDGET (obstructive sleep apnea) Obstructive sleep apnea (adult) (pediatr ic) Morbid obesity with body mass index of 4 0.0-49.9 documented in this encounter Insurance Payer Benefit Plan Subscriber ID Effective Phone Address Typ e / Group Dates [employer] [place] [id number] 2018-08/03 [phone] [facility] [place] [address] documented as of this encounter
--- OUTSIDE RECORDS SUMMARY | 2020-06-06 12:39 | XMS REPORT | Summary of Care ---
:1965 [address] [facility] Address [address] [place] [address] Care Team Providers Name Role Phone JOSEFINA Lucero Primary Care Provider Reason for Visit Reason Comments Follow-up 3mo (Routine) Status Reason Specialty Diagnoses / Referred By Referred To Procedures Contact Contact Closed IM-CARDIOVASCULAR Diagnoses hfu Ekta Lucero FNP Cai, Qiangjun, DISEASE / Procedures CONSULT CARDIOLOGY FOLLOW-UP VISIT 301 [facility] Cardiology [address] Phone: [address] [place] [address] Encounter Details Date Type Department Care Team Description 05/14/2020 Office Visit [facility] Eunice Chang M D Chest pain, unspecified type (Primary Dx ); Cardiology- [address] Pulmonary embolism, unspecif ied chronicity, unspecified pulmonary embolism type, unspecified whether acute cor pulmonale present; [address] [place] [address] Sick sinus syndrome due to SA node dysfu nction; Drive, [address] Essential hypertension; [place], [place] [address] Mixed hyperlipidemia; [address] BRIDGET (obstructive sleep apnea); [phone] Morbid ob esity with body mass index [...] with No / Unsure 05/14/2020 9:37 AM PLATFORM LOADER someone who was confirmed or suspected to have Coronavirus / COVID-19? documented as of this encounter Last Filed Vital Signs Vital Sign Reading Time Taken Comments Blood Pressure 149/75 05/14/2020 10:04 AM PLATFORM LOADER Pulse 86 05/14/2020 10:01 AM PLATFORM LOADER Temperature - - Respiratory Rate 18 05/14/2020 10:01 AM PLATFORM LOADER Oxygen Saturation 94% 05/14/2020 10:01 AM PLATFORM LOADER Inhaled Oxygen Concentration - - Weight 124.3 kg (274 lb 1.6 oz) 05/14/2020 10:01 AM PLATFORM LOADER Height 167.6 cm (5' 6") 05/14/2020 10:01 AM PLATFORM LOADER Body Mass Index 44.24 05/14/2020 10:01 AM PLATFORM LOADER documented in this encounter Progress Notes Eunice [...] CAD. Apparently had LHC In 2017 in [facility]--no PCI done. He has daily chest pain. It is central and left sided sharp pain, radiating to the left arm, more so when lying flat, non exertional, actually less when walking. Associated with mild SOB. NTG does not help. In 02/2020 he was admitted in [facility] for several significant sinus pauses on telemetry, some measuring > 7 seconds in length, subsequently underwent Medtronic dual chamber pacemaker on 02/05/2020. 02/05/2020- implant of MDT DDD pacemaker via left subclavian vein Falls asleep easy. He went to [facility] for chest pain last week. Had a normal stress test. Chest pain is worse with body movement. [facility] 05/2019 EKG--Inferior ST depression ECHO--Normal LVEF Lexiscan [...] file Gets together: Not on file Attends synagogue service: Not on file Active member of [...] 6 months Eunice Chang MD, FACC, DOROTHY Nascar Racer, Division of Cardiology [facility] documented in this encounter Plan of Treatment Date Type Specialty Care Team Description 06/10/2020 Laboratory Only Cardiology Pacemaker/Icd, Adc 08/28/2020 Office Visit Pulmonary Disease Mayela Funes, [address] [place] [phone] 11/11/2020 Office Visit Cardiology Eunice Chang M D 146 [facility] [address] [place] [address] Health Maintenance Due Date Last [...] of this encounter Implants Implanted Type Area Bindery Helper Device Identifier Shelf Exp iration Model / [...] Phone Address Typ e / Group Dates [employer] [id number] 2018-08/03 [phone] [facility] [place] [address] documented as of this encounter
--- OUTSIDE RECORDS SUMMARY | 2020-06-06 12:40 | XMS REPORT | Summary of Care ---
:1965 Author Organization [facility] - Health Address [address] [place] [address] Care Team Providers Name Role Phone Nic JOSEFINA Primary Care Provider Encounter Details Date Type Department Care Team Description 05/23/2020 Orders Only [facility] Doctor Unassigned, No [address] [facility] [place] [address] [address] [place] [address] Allergies Active Allergy Reactions Severity Noted Date Comments Azithromycin Swelling High 08/11/2018 Throat swells Metoprolol Other - See comments 07/11/2018 Lowers heart rate too low documented as of this encounter (statuses as of 05/23/2020) Medications Medication Sig Dispensed Refills Start Date [...] albuterol (PROVENTIL Inhale 2 Puffs 8.5 g 11 05/08/2020 Active HFA) 90 mcg/actuation every 6 (six) inhalerIndications: hours as needed Chronic obstructive for Wheezing or pulmonary disease, Shortness of unspecified COPD type Breath. methocarbamoL Take 1 tablet by 30 tablet [...] as of this encounter (statuses as of 05/23/2020) Active Problems Problem Noted Date Pulmonary embolism [...] as of this encounter (statuses as of 05/23/2020) Immunizations Name Administration Dates Next Due Influenza [...] with No / Unsure 05/14/2020 9:37 AM FERTILIZER PROCESSING SUPERVISOR someone who was confirmed or suspected to have Coronavirus / COVID-19? documented as of this encounter Last Filed Vital Signs Not on filedocumented in this encounter Plan of Treatment Date Type Specialty Care Team Description 06/10/2020 Laboratory Only Cardiology Pacemaker/Icd, Adc 08/28/2020 Office Visit Pulmonary Disease Mayela Funes DO [address] [place] [phone] 11/11/2020 Office Visit Cardiology Eunice Chang M D [address] [place] [address] [phone] Health Maintenance Due Date Last Done Comments [...] of this encounter Implants Implanted Type Area Project Facilitator Device Identifier Shelf Exp iration Model / Date Serial / L ot Pacemaker PACEMAKER documented as of this encounter Procedures Procedure Name Priority Date/Time Associated Diagnosis Comme nts EXTERNAL PROVIDER Routine 05/23/2020 12:01 AM FERTILIZER PROCESSING SUPERVISOR RECORDS documented in this encounter Results Not on filedocumented in this encounter Insurance Payer Benefit Plan Subscriber ID Effective Phone Address Typ e / Group Dates [employer] ROSEANNA COShelby [id number] 2018-08/03 [phone] [facility] [place] [address] documented as of this encounter
--- OUTSIDE RECORDS SUMMARY | 2020-06-06 12:40 | XMS REPORT | Summary of Care ---
:1965 Author Organization [facility] Address [address] [place] [address] Care Team Providers Name Role Phone JOSEFINA Lucero Primary Care Provider Reason for Visit Reason Comments Refill Request Encounter Details Date Type Department Care Team Description 06/03/2020 Telephone [facility] Ekta Lucero FNP Refill Request [facility] [address] [facility] [address] [place] [address] [place] [address] Allergies Active Allergy Reactions Severity Noted Date Comments Azithromycin Swelling High 08/11/2018 Throat swells Metoprolol Other - See comments 07/11/2018 Lowers heart rate too low documented as of this encounter (statuses as of 06/03/2020) Medications Medication Sig Dispensed Refills Start Date [...] times daily with Borderline diabetes meals. mellitus amLODIPine 10 mg Take 1 tablet by 30 tablet 5 06/03/2020 Active tabletIndications: mouth daily. Essential hypertension documented as of this encounter (statuses as of 06/03/2020) Active Problems Problem Noted Date Pulmonary embolism [...] as of this encounter (statuses as of 06/03/2020) Immunizations Name Administration Dates Next Due Influenza [...] with No / Unsure 05/14/2020 9:37 AM BUSINESS EDUCATION TEACHER someone who was confirmed or suspected to have Coronavirus / COVID-19? documented as of this encounter Last Filed Vital Signs Not on filedocumented in this encounter Miscellaneous Notes Telephone Encounter - Lilian Wesley LVN - 06/03/2020 3:55 PM CSTCall placed to patient, lvm to inform that prescription refill has been sent to pharmacy. elephone Encounter - Lilian Wesley LVN - 06/03/2020 2:01 PM BUSINESS EDUCATION TEACHER Voice message received from girlfriend, Clara Wagner, requesting refill of Amlodipine 10mg (1) tab daily. [place] - 05/08/2020 LAST REFILL - 03/13/2020, #30, 0 RF LAST LAB - 03/11/2020 (Creat= 0.60) NOV - None Request for refill routed to provider. NESS EDUCATION TEACHER documented in this encounter Plan of Treatment Date Type Specialty Care Team Description 06/10/2020 Laboratory Only Cardiology Pacemaker/Icd, Adc 08/28/2020 Office Visit Pulmonary Disease Mayela Funes DO [address] [place] [address] [phone] 11/11/2020 Office Visit Cardiology Eunice Chang M D [address] [facility] [address] [place], [place] [address] [phone] Health Maintenance Due Date Last Done Comments [...] of this encounter Implants Implanted Type Area Manager Leadership Development Device Identifier Shelf Exp iration Model / Date Serial / L ot Pacemaker PACEMAKER documented as of this encounter Results Not on filedocumented in this encounter Visit Diagnoses Diagnosis Essential hypertension - Primary Unspecified essential hypertension documented in this encounter Insurance Payer Benefit Plan Subscriber ID Effective Phone Address Typ e / Group Dates [place] [place] [id number] 2018-08/03 [phone] [facility] [address] [place] [address] documented as of this encounter
--- OUTSIDE RECORDS SUMMARY | 2020-06-06 12:40 | XMS REPORT | Summary of Care ---
:1965 Author Organization [facility] - Health Address [address] [place] [address] Care Team Providers Name Role Phone Nic JOSEFINA Primary Care Provider Encounter Details Date Type Department Care Team Description 05/12/2020 Orders Only [facility] Doctor Unassigned, No [address] [facility] [place] [address] [address] [place] [address] Allergies Active Allergy Reactions Severity Noted Date Comments Azithromycin Swelling High 08/11/2018 Throat swells Metoprolol Other - See comments 07/11/2018 Lowers heart rate too low documented as of this encounter (statuses as of 05/19/2020) Medications Medication Sig Dispensed Refills Start Date [...] as of this encounter (statuses as of 05/19/2020) Active Problems Problem Noted Date Pulmonary embolism [...] as of this encounter (statuses as of 05/19/2020) Immunizations Name Administration Dates Next Due Influenza [...] with No / Unsure 05/14/2020 9:37 AM CANCELLATION CLERK someone who was confirmed or suspected to have Coronavirus / COVID-19? documented as of this encounter Last Filed Vital Signs Not on filedocumented in this encounter Plan of Treatment Date Type Specialty Care Team Description 06/10/2020 Laboratory Only Cardiology Pacemaker/Icd, Adc 08/28/2020 Office Visit Pulmonary Disease Mayela Funes DO [address] [place] [phone] 11/11/2020 Office Visit Cardiology Eunice Chang M D [address] [place] [address] [phone] Health Maintenance Due Date Last Done Comments [...] of this encounter Implants Implanted Type Area Hemstitcher Device Identifier Shelf Exp iration Model / Date Serial / L ot Pacemaker PACEMAKER documented as of this encounter Procedures Procedure Name Priority Date/Time Associated Diagnosis Comme nts PATIENT CORRESPONDENCE Routine 05/12/2020 12:01 AM (LETTERS, USPS CANCELLATION CLERK DOCUMENTATION) documented in this encounter Results Not on filedocumented in this encounter Insurance Payer Benefit Plan Subscriber ID Effective Phone Address Typ e / Group Dates [facility] [employer]. [id number] 2018-08/03 [phone] [facility] [address] [place] [address] [facility] [employer] [employer]. [id number] 2018-05/04 [phone] [facility] [address] [place] [id number] documented as of this encounter
--- OUTSIDE RECORDS SUMMARY | 2020-06-06 12:40 | XMS REPORT | Summary of Care ---
:1965 Author Organization [facility] Address [address] [place] [address] Care Team Providers Name Role Phone JOSEFINA Lucero Primary Care Provider Reason for Visit Reason Comments Refill Request Encounter Details Date Type Department Care Team Description 06/03/2020 Telephone [facility] Ekta Lucero FNP Refill Request [facility] [address] [facility] [address] [place] [address] [place] [address] Allergies Active Allergy Reactions Severity Noted [...] with No / Unsure 05/14/2020 9:37 AM HEARINGS REPORTER someone who was confirmed or suspected to have Coronavirus / COVID-19? documented as of this encounter Last Filed Vital Signs Not on filedocumented in this encounter Miscellaneous Notes Telephone Encounter - Lilian Wesley LVN - 06/03/2020 2:01 PM CSTVoice message received from girlfriend, Clara Wagner, requesting refill of Amlodipine 10mg (1) tab daily. [place] - 05/08/2020 LAST REFILL - 03/13/2020, #30, 0 RF LAST LAB - 03/11/2020 (Creat= 0.60) NOV - None Request for refill routed to provider. INGS REPORTER documented in this encounter Plan of Treatment Date Type Specialty Care Team Description 06/10/2020 Laboratory Only Cardiology Pacemaker/Icd, Adc 08/28/2020 Office Visit Pulmonary Disease Mayela Funes DO [address] [place] [address] 11/11/2020 Office Visit Cardiology Eunice Chang M D [address] [place], [place] [address] [phone] Health Maintenance Due Date Last Done Comments [...] of this encounter Implants Implanted Type Area Taxation Inspector Device Identifier Shelf Exp iration Model / Date Serial / L ot Pacemaker PACEMAKER documented as of this encounter Results Not on filedocumented in this encounter Visit Diagnoses Diagnosis Essential hypertension - Primary Unspecified essential hypertension documented in this encounter Insurance Payer Benefit Plan Subscriber ID Effective Phone Address Typ e / Group Dates [employer] [place] [id number] 2018-08/03 [phone] [facility] [place] [address] documented as of this encounter
[2020-06-06] MEDS ORDERED: HYDROCODONE/CHLORPHEN 5 ML/OSYR ONE (13:22)
--- NOTE | 2020-06-06 14:07 | RAD REPORT ---
EXAM DESCRIPTION: RAD - Chest Single View - 06/06/2020 1:59 pm CLINICAL HISTORY: COUGH Chest pain. COMPARISON: Chest Single View dated 05/05/2020; Chest Single View dated 03/07/2020; Chest Single View d ated 03/02/2020; Chest Single View dated 02/03/2020 FINDINGS: Portable technique limits examination quality. The lungs are grossly clear. The heart is normal in size. No displaced fractures.Dual lead pacer monisha ce noted. IMPRESSION: No acute intrathoracic process suspected.
--- NOTE | 2020-06-06 14:39 | ER ---
Nurse's Notes [facility] Name: Juan Miguel Langston Age: 54 yrs Sex: Male : 1965 Arrival Date: 06/06/2020 Time: 12:32 Bed 2 Private MD: Diagnosis: Acute upper respiratory infection, unspecified Presentation: 06/06 12:40 Chief complaint: Patient states: cough x "a couple weeks." Pt reports he is coughing up ss clear fluid at times. Denies fever. Coronavirus screen: Client denies travel out of the [place] in the last 14 days. Client presents with at least one sign or symptom that may indicate coronavirus-19. Standard/surgical mask placed on the client. Provider contacted for isolation considerations. Ebola Screen: Patient denies exposure to infectious person. Patient denies travel to an Ebola-affected area in the 21 days before illness onset. Initial Sepsis Screen: Does the patient meet any 2 criteria? HR > 90 bpm. No. Patient's initial sepsis screen is negative. Does the patient have a suspected source of infection? No. Patient's initial sepsis screen is negative. Risk Assessment: Do you want to hurt yourself or someone else? Patient reports no desire to harm self or others. Onset of symptoms is unknown. 12:40 Method Of Arrival: Ambulatory ss 12:40 Acuity: DESTINY 3 ss Historical: - Allergies: 12:42 Azithromycin; ss 12:42 Beta-Blockers (Beta-Adrenergic Bloc; ss 12:42 Metoprolol Tartrate; ss - PMHx: 12:42 Angina; COPD; Diabetes - NIDDM; High Cholesterol; Hypertension; Myocardial infarction; ss Sleep Apnea; - PSHx: 12:42 pacemaker; ss - Immunization history:: Adult Immunizations up to date. - Social history:: Smoking status: Patient reports the use of cigarette tobacco products, smokes one-half pack cigarettes per day. Screenin:30 Abuse screen: Denies threats or abuse. Denies injuries from another. Nutritional zb screening: No deficits noted. Tuberculosis screening: No symptoms or risk factors identified. Fall Risk None identified. Assessment: 13:35 General: Appears in no apparent distress. obese, well groomed, Behavior is calm, zb cooperative. Pain: Complains of pain in mid-sternal area Pain does not radiate. Quality of pain is described as aching, Pain began Pt states "a couple of weeks ago". Neuro: Level of Consciousness is awake, alert, obeys commands, Oriented to person, place, time, situation. Cardiovascular: Heart tones S1 S2 Capillary refill < 3 seconds in bilateral fingers Patient's skin is warm and dry. Respiratory: Airway is patent Trachea midline Respiratory effort is even, unlabored, Respiratory pattern is regular, symmetrical, Breath sounds are diminished in right middle lobe, left lower lobe and right lower lobe. GI: Abdomen is round non-distended, obese. : No signs and/or symptoms were reported regarding the genitourinary system. EENT: No signs and/or symptoms were reported regarding the EENT system. Derm: Skin is intact, is healthy with good turgor, Skin is normal. Musculoskeletal: Circulation, motion, and sensation intact. Range of motion: intact in all extremities. 14:35 Reassessment: Patient appears in no apparent distress at this time. Patient and/or zb family updated on plan of care and expected duration. Pain level reassessed. Patient is alert, oriented x 3, equal unlabored respirations, skin warm/dry/pink. patient resting in bed. awaiting POC. Vital Signs: 12:40 BP 137 / 81; Pulse 105; Resp 18; Temp 98.3(TE); Pulse Ox 95% on R/A; Weight 131.54 kg; ss Height 5 ft. 6 in. (167.64 cm); Pain 5/10; 15:22 BP 112 / 76; Pulse 93; Resp 18; Pulse Ox 95% on R/A; zb 12:40 Body Mass Index 46.81 (131.54 kg, 167.64 cm) ED Course: 12:32 Patient arrived in ED. as 12:41 Triage completed. ss 12:42 Arm band placed on right wrist. ss 12:53 Ayleen Roach FNP-C is PHCP. snw 12:53 Lenard Rosario MD is Attending Physician. snw 13:30 Alla Silva RN is Primary Nurse. zb 13:30 Patient has correct armband on for positive identification. Bed in low position. Call zb light in reach. Side rails up X 1. Pulse ox on. NIBP on. 13:31 COVID-19 Sent. zb 13:59 Chest Single View XRAY In Process Unspecified. EDMS 15:21 No provider procedures requiring assistance completed. Patient did not have IV access zb during this emergency room visit. Administered Medications: 13:31 Drug: Tussionex Pennkinetic ER 5 ml Route: PO; zb 14:00 Follow up: Response: No adverse reaction zb Outcome: 14:38 Discharge ordered by . chayo 15:22 Discharged to home ambulatory, with family. zb 15:22 Condition: stable 15:22 Discharge instructions given to patient, family, Instructed on discharge instructions, follow up and referral plans. medication usage, Demonstrated understanding of instructions, follow-up care, medications, Prescriptions given X 1. 15:23 Patient left the ED. zb Addendum: 06/09/2020 11:58 Addendum: COVID-19 Result: Negative result given to RN to notify pt. Attempted to i w contact pt regarding negative COVID-19 swab results. Left voice mail. Signatures: Dispatcher [employer] EDOR Ayleen Roach, DIESEL TRUCK TECHNICIAN-C DIESEL TRUCK TECHNICIAN-Dee Dee Mcdermott Irene, Lilia Cisse RN, RN RN ss Brown, Zipporah, RN RN zb
--- NOTE | 2020-06-06 14:39 | EDPHYS ---
Physician Documentation [facility] Name: Juan Miguel Langston Age: 54 yrs Sex: Male : 1965 Arrival Date: 06/06/2020 Time: 12:32 Bed 2 Private MD: ED Physician Lenard Rosario HPI: 06/06 13:51 This 54 yrs old Male presents to ER via Ambulatory with complaints of Cough, snw Congestion, Chest Wall Pain. 13:51 The patient or guardian reports cough, described as moderate. Onset: The snw symptoms/episode began/occurred 3 week(s) ago, and became persistent. Severity of symptoms: At their worst the symptoms were moderate. It is unknown whether or not the patient has had similar symptoms in the past. The patient has been recently been admitted at [facility], was discharged last month. Hx of COPD, DM, Angina. Historical: - Allergies: 12:42 Azithromycin; ss 12:42 Beta-Blockers (Beta-Adrenergic Bloc; ss 12:42 Metoprolol Tartrate; ss - PMHx: 12:42 Angina; COPD; Diabetes - NIDDM; High Cholesterol; Hypertension; Myocardial infarction; ss Sleep Apnea; - PSHx: 12:42 pacemaker; ss - Immunization history:: Adult Immunizations up to date. - Social history:: Smoking status: Patient reports the use of cigarette tobacco products, smokes one-half pack cigarettes per day. ROS: 13:50 Constitutional: Negative for fever, chills, and weight loss, Eyes: Negative for injury, snw pain, redness, and discharge, ENT: Negative for injury, pain, and discharge, Neck: Negative for injury, pain, and swelling, Cardiovascular: Negative for chest pain, palpitations, and edema, Abdomen/GI: Negative for abdominal pain, nausea, vomiting, diarrhea, and constipation, Back: Negative for injury and pain, : Negative for injury, bleeding, discharge, and swelling, MS/Extremity: Negative for injury and deformity, Skin: Negative for injury, rash, and discoloration, Neuro: Negative for headache, weakness, numbness, tingling, and seizure. 13:50 Respiratory: Positive for cough, pleurisy. Exam: 13:49 Constitutional: This is a well developed, well nourished patient who is awake, alert, snw and in no acute distress. Head/Face: Normocephalic, atraumatic. Eyes: Pupils equal round and reactive to light, extra-ocular motions intact. Lids and lashes normal. Conjunctiva and sclera are non-icteric and not injected. Cornea within normal limits. Periorbital areas with no swelling, redness, or edema. ENT: Nares patent. No nasal discharge, no septal abnormalities noted. Tympanic membranes are normal and external auditory canals are clear. Oropharynx with no redness, swelling, or masses, exudates, or evidence of obstruction, uvula midline. Mucous membranes moist. Neck: Trachea midline, no thyromegaly or masses palpated, and no cervical lymphadenopathy. Supple, full range of motion without nuchal rigidity, or vertebral point tenderness. No Meningismus. Chest/axilla: Normal chest wall appearance and motion. Nontender with no deformity. No lesions are appreciated. 13:49 Respiratory: Lungs have equal breath sounds bilaterally, clear to auscultation and percussion. No rales, rhonchi or wheezes noted. No increased work of breathing, no retractions or nasal flaring. Abdomen/GI: Soft, non-tender, with normal bowel sounds. No distension or tympany. No guarding or rebound. No evidence of tenderness throughout. Back: No spinal tenderness. No costovertebral tenderness. Full range of motion. 13:49 MS/ Extremity: Pulses equal, no cyanosis. Neurovascular intact. Full, normal range of motion. Neuro: Awake and alert, GCS 15, oriented to person, place, time, and situation. Cranial nerves II-XII grossly intact. Motor strength 5/5 in all extremities. Sensory grossly intact. Cerebellar exam normal. Normal gait. Psych: Awake, alert, with orientation to person, place and time. Behavior, mood, and affect are within normal limits. 13:49 Cardiovascular: Rate: tachycardic, Rhythm: regular, Pulses: no pulse deficits are appreciated. 13:49 Skin: Appearance: weathered. Vital Signs: 12:40 BP 137 / 81; Pulse 105; Resp 18; Temp 98.3(TE); Pulse Ox 95% on R/A; Weight 131.54 kg; ss Height 5 ft. 6 in. (167.64 cm); Pain 5/10; 15:22 BP 112 / 76; Pulse 93; Resp 18; Pulse Ox 95% on R/A; zb 12:40 Body Mass Index 46.81 (131.54 kg, 167.64 cm) ss MDM: 13:07 Patient medically screened. [facility] 14:39 Data reviewed: vital signs, nurses notes. Data interpreted: Pulse oximetry: on room air snw is 95 %. Interpretation: acceptable. Counseling: I had a detailed discussion with the patient and/or guardian regarding: the historical points, exam findings, and any diagnostic results supporting the discharge/admit diagnosis, the need for outpatient follow up, to return to the emergency department if symptoms worsen or persist or if there are any questions or concerns that arise at home. Counseling: I had a detailed discussion with the patient and/or guardian regarding: radiology results, smoking cessation. Special discussion: I have referred the patient to see his PCP for further evaluation of high blood pressure. Based on the history and exam findings, there is no indication for further emergent testing or inpatient evaluation. I discussed with the patient/guardian the need to see the primary care provider for further evaluation of the symptoms. 06/06 12:58 Order name: COVID-19 snw 06/06 12:57 Order name: Chest Single View XRAY; Complete Time: 14:28 snw Administered Medications: 13:31 Drug: Tussionex Pennkinetic ER 5 ml Route: PO; zb 14:00 Follow up: Response: No adverse reaction zb Disposition: 06/07 08:30 Co-signature as Attending Physician, Lenard Rosario MD I agree with the assessment and [facility] plan of care. Disposition: 06/06/20 14:38 Discharged to Home. Impression: Acute upper respiratory infection, unspecified. - Condition is Stable. - Discharge Instructions: Upper Respiratory Infection, Adult. - Prescriptions for promethazine 25 mg Oral Tablet - take 1 tablet by ORAL route every 6 hours As needed; 20 tablet. - Medication Reconciliation Form, Thank You Letter, Antibiotic Education, Prescription Opioid Use form. - Follow up: Emergency Department; When: As needed; Reason: Worsening of condition. Follow up: Private Physician; When: 2 - 3 days; Reason: Recheck today's complaints, Continuance of care, Re-evaluation by your physician. Signatures: Dispatcher [employer] Lenard Lindquist MD MD cha Waters, Shelly, POWER TOOL REPAIRER-C POWER TOOL REPAIRER-Ferniew Lilia Roche RN RN Alla Sutton RN RN zb Corrections: (The following items were deleted from the chart) 06/06 15:23 14:38 06/06/2020 14:38 Discharged to Home. Impression: Acute upper respiratory zb infection, unspecified. Condition is Stable. Forms are Medication Reconciliation Form, Thank You Letter, Antibiotic Education, Prescription Opioid Use. Follow up: Emergency Department; When: As needed; Reason: Worsening of condition. Follow up: Private Physician; When: 2 - 3 days; Reason: Recheck today's complaints, Continuance of care, Re-evaluation by your physician. snw
== END 2020-06-06 15:23 | disposition home or self-care (01) ==
LOC: ER 12:31
DX: J06.9 Acute upper respiratory infection, unspecified (principal); Z20.828 Contact with and (suspected) exposure to other viral communicable diseases; I10 Essential (primary) hypertension; F17.210 Nicotine dependence, cigarettes, uncomplicated; Z95.0 Presence of cardiac pacemaker; Z88.3 Allergy status to other anti-infective agents; Z88.8 Allergy status to other drugs, medicaments and biological substances
CPT/HCPCS: 71045; 99284; U0002

== ENCOUNTER 2020-06-11 14:41 | Emergency (ER) | payer OTHER ==
[2020-06-11] MEDS ORDERED: NA CHLORIDE 0.9% 1,000 ML ONE (18:25)
[2020-06-11 18:38] LABS: Absolute Lymphocytes (CBC) 1.8 K/uL (0.7-4.9); Basophils % 1.3 % (0-1.3); Hematocrit 40.9 % (39.6-49.0); Lymphocytes % 21.6 % (15.3-44.8); MPV 9.1 fL (7.6-11.3)
[2020-06-11 18:52] LABS: ALT/SGPT 95 U/L (12-78); Albumin 3.5 g/dL (3.4-5.0); Alkaline Phosphatase 45 U/L (45-117); BUN Blood Urea Nitrogen 25 mg/dL (7-18); Bicarbonate 29 mmol/L (21-32); Bilirubin Direct < 0.1 mg/dL (0-0.2); Bilirubin Total 0.2 mg/dL (0.2-1.0); Glucose Level 97 mg/dL (74-106); NT PRO-BNP 51 pg/mL (<125); Protein, Total 7.1 g/dL (6.4-8.2); Sodium Level 140 mmol/L (136-145); Troponin (Emerg Dept Use Only) < 0.02 ng/mL (0.0-0.045)
[2020-06-11 19:01] LABS: AST/SGOT 51 U/L (15-37); Potassium 4.2 mmol/L (3.5-5.1)
[2020-06-11 19:08] LABS: Protime INR 1.16
--- OUTSIDE RECORDS SUMMARY | 2020-06-11 21:11 | XMS REPORT | Continuity of Care Document ---
:1965 Author Organization [facility] t Address [address] [place] [address] Care Team Providers Name Role Phone Pcp Primary Care Physician Unavailable Nic ROCHA Attending Clinician Juana Wilde MD Attending Clinician Ely Shiplye MD Attending Clinician Kofi Elam MD Attending [...] [facility]04 [facility] 00 [place] HLD HLD Disease Active [facility] (hyper[facility]i (hyperlipi 02-04 [facility] - demia) demia) 00:00: Medical 00 Center Coronary Coronary Disease [facility] disease disease 00:[facility]: Medical 00 Center BRIDGET BRIDGET Disease Active [facility] (obstructi (obstructi 02-04 [facility] - ve sleep ve sleep 00:00: Medica l apnea) apnea) 00 Center Morbid Morbid Disease Active [facility] obesity obesity 02-04 [facility] - with BMI with BMI 00:00: Medica l of of 00 Center 40.0-44.9, 40.0-44.9, adult adult Syncope Syncope Disease Active [facility] due to due to 02-03 [facility] - sick sinus sick sinus 00:00: Me dical syndrome syndrome 00 [place] Sick sinus Sick sinus Disease Active [facility] syndrome syndrome 02-03 [facility] - due to SA due to SA 00:00: Medi ajith node node 00 [place] dysfunctio dysfunctio n n Homeless Homeless Disease Active [facility] 02[facility]03 [facility] - 00:00: Medical 00 Center Allergies, Adverse Reactions, Alerts This patient has no known allergies or adverse reactions. Social History Social Habit Start Date Stop Date Quantity Comments Source History [facility] - Alcohol Std Drinks Medica Center History [facility] Alcohol Binge Medical Olya ter Sex Assigned At [facility] Alcohol intake 2020-02-06 2020-02-06 Current [facility] es - 00:00:00 00:00:00 non-drinker of Medical Ce nter alcohol (finding) History [facility] 2020-02-04 2020-02-04 1 [facility] - Alcohol Frequency 00:00:00 00:00:00 [facility] Smoking Status Start Date Stop Date Source Current every day smoker 2020-02-06 00:00:00 [facility] Medications Ordered Filled Start Stop Current [...] Source Systolic blood 2020-02-06 11:21:00 146 mm[Hg] [facility] Diastolic blood 2020-02-06 11:21:00 74 mm[Hg] [facility] Heart rate 2020-02-06 11:21:00 80 /min [facility] Body temperature 2020-02-06 11:21:00 37.06 Marianne [facility] Respiratory rate 2020-02-06 11:21:00 18 /min [facility] Oxygen saturation in 2020-02-06 11:21:00 94 /min [facility] Arterial blood by Medical Ce nter Pulse oximetry Body weight 2020-02-05 06:35:00 120.929 kg [facility] BMI 2020-02-05 06:35:00 43.03 kg/m2 [facility] Body height 2020-02-04 22:00:00 167.6 cm [facility] Procedures Procedure Date / Time Performed Performing Clinician Elo rodriguez ARRYTHMIA IMPLANT REPORT 2020-02-20 13:41:29 Provider, Default [facility] - SCAN Scanning [facility] RHYTHM STRIP - SCAN 2020-02-08 09:00:23 Provider, Default [facility] ARRYTHMIA IMPLANT REPORT 2020-02-08 09:00:19 Provider, Default [facility] - - SCAN Scanning [facility] CARDIAC CATH REPORT - 2020-02-08 09:00:17 Provider, Default [facility] TRANSFUSION SERVICE 2020-02-06 18:02:59 Provider, Default [facility] REPORT - [facility] 2D ECHO W/ DOPPLER 2020-02-06 10:08:41 Fredrick Forrest [facility] (CW/PW/COLOR) [facility] POCT-GLUCOSE METER 2020-02-06 07:12:00 Timoteo Shipley [facility] CBC W/PLT COUNT & AUTO 2020-02-06 04:03:00 Lon [facility] DIFFERENTIAL [facility] BASIC METABOLIC PANEL 2020-02-06 04:02:00 Fredrick Forrest [facility] - (7) [facility] MAGNESIUM 2020-02-06 04:02:[address] [facility] POCT-GLUCOSE METER 2020-02-05 22:25:00 Timoteo Shipley [facility] XR CHEST 1 VIEW 2020-02-05 17:51:00 Eduardo Chavez [facility] - PORTABLE/BEDSIDE [facility] POCT-GLUCOSE METER 2020-02-05 16:47:00 Timoteo Shipley [facility] AICD UPGRADE - SINGLE TO 2020-02-05 12:29:00 Prem Elam [facility] DUAL CHAMBER SYSTEM Medical Cent er BLOOD GAS, ARTERIAL 2020-02-05 11:36:00 Dulce Wilde [facility] - [facility] ABORH, MANUAL 2020-02-05 08:59:00 Tiffanie Conner [facility] TYPE AND SCREEN, 2020-02-05 08:30:00 Eduardo Chavez [facility] - AUTOMATED [facility] XR CHEST 1 VIEW 2020-02-05 06:55:00 Dulce Wilde [facility] - PORTABLE/BEDSIDE [facility] ECG 12-LEAD 2020-02-05 06:40:35 Unknown, Hl7 Doctor [facility] HEMOGLOBIN A1C 2020-02-05 01:23:[address] [facility] BLOOD GAS, VENOUS 2020-02-05 01:23:00 LonFredrick [facility] CBC W/PLT COUNT & AUTO 2020-02-05 01:23:00 Lon [facility] BASIC METABOLIC PANEL 2020-02-05 01:22:00 LonFredrick [facility] (7) [facility] MAGNESIUM 2020-02-05 01:22:00 [facility] LIPID PANEL 2020-02-05 01:22:00 [facility] SARS-COV2/RT-PCR ([facility] & 2020-02-03 20:16:00 [facility] LABS) [facility] Plan of Care Planned Activity Planned Date Details Comments Source Future Scheduled 2023-02-[address] [facility] - Test 00:00:00 (procedure) [code = Medical Center 85422831] Future Scheduled 2020-08-[address] [facility]ia k[facility] - Test 00:00:00 measurement [facility] (procedure) [code = 30154033] Future Scheduled 2020-03-[address] [facility] - Test 00:00:00 (#1) [code = Medical Center INFLUENZA VACCINE (#1)] Future Scheduled 1975-09-[address] DIABETIC EYE EXAM [facility] - Test 00:00:00 [code = DIABETIC EYE Medical Center EXAM] Future Scheduled 1975-09-[address] [facility] - Test 00:00:00 examination Medical Center (regime/therapy) [code = 352595337] Future Scheduled 1975-09-07 Urine screening [facility] - Test 00:00:00 protein (procedure) [facility] [code = 247095361] Future Scheduled [address] [facility] - Test 00:00:00 malignant neoplasm of Medica l Center colon (procedure) [code = 669334260] Encounters Start End Encounter Admission Attending Care Care Encounter Source Date/Time Date/Time Type Type Clinicians Facility Department ID 2020-06-06 2020-06-06 Telephone Ekta Lucero DANET[facility]AR[facility] [id number] 00:00:00 00:00:00 [place] [address] [place] [id number] UN[address] [id number] 2020-06-03 2020-06-03 Telephone Ekta Lucero [id number] 00:00:00 00:00:00 [place] [address]..13.10 [facility] [id number] UNIT [id number] Results Test Description Test Time Test Comments Results Result [facility] e Comments 2D Echo Ejection FractionSLEH [facility] W/Doppler(CW/PW/C 5 ECHO [facility] - Il dical olor) 18:17:02 [facility] CPACSInterface, External Ris In - 02/06/2020 6:17 PM CDTTransthoracic Echocardiography Report (TTE) Demographics Patient Name SAMMY VALLE Date of Study 02/06/2020 RU Gender Male Visit Number [id number] Race Unknown Room Number 636 Number Date of 1965 Referring [facility] Age 54 year([facility]) Rn Telephonic ROSSY Kingston, RDCS,RVT,RDMS [employer] Linda Rodriguez, Interpreting Nilda Myles MD RDCS [...] 131 mg/dL 70-110 H : TESTED AT [facility] [address] [facility] 1538) [facility], [address] 30: Biomedical Engineering Technologist/Techni vanita ID = [id number] for KENDRICK HAN Lab Interpretation (test code = Abnormal 37283-8) [facility] [id number] 07:29:00 Test Item Value Reference Range Interpretation Comments POC-GLUCOSE METER 131 mg/dL 70-110 H : TESTED A T [facility] [address] (BEAKER) (test code = BERTINDIA R [facility], 1538) [address]: Biomedical Engineering Technologist/Techni vanita ID = [id number] for PO KENDRICK VORA Basic metabolic [id number] 04:43:00 Test Item Value Reference Range Interpretation Comments Sodium (test code = 137 meq/L 802-789 5637-2) Potassium (test code = 4.4 meq/L 3.5-5.1 [...] (test code = 8.2 mg/dL 8.4-10.2 L 13272-4) EGFR (test code = 112 mL/min/1.73 [place] [address]-1) NOT ACCURATE CREATININE CLEARANCE IN PREDICTING GLOMERULAR FILTRATION RATE . ESTIMATED GFR I S NOT APPLICABLE FOR DIALYSIS PATIENTS. YOMI (test code = YOMI) Biomedical Engineering Technologist ID - NELLY W Lab Interpretation Abnormal (test code = 13251-8) [facility]2020-08-05 04:43:00 Test Item Value Reference Range Interpretation Comments Magnesium (test code = 1.9 mg/dL 1.6-2.6 Speci men 68074-7) slightly hemolyzed YOMI (test code = YOMI) Biomedical Engineering Technologist ID - NELLY W Lab Interpretation Normal (test code = 40930-3) [facility]2020-08-05 04:43:00 Test Item Value Reference Range Interpretation Comments MAGNESIUM (BEAKER) 1.9 mg/dL 1.6-2.6 Specimen slightly (test code = 627) hemolyzed Biomedical Engineering Technologist ID - NELLY WBASIC METABOLIC [id number] 04:43:00 Test Item Value Reference Range Interpretation Comments SODIUM (BEAKER) 137 meq/L 136-145 (test code = 381) POTASSIUM (BEAKER) 4.4 meq/L 3.5-5.1 Specimen slightly (test code = 379) hemolyzed CHLORIDE (BEAKER) 101 meq/L 98-107 (test code = 382) CO2 (BEAKER) (test 28 meq/L -29 code = 355) BLOOD UREA NITROGEN 13 [...] S NOT APPLICABLE FOR DIALYSIS PATIEN TS. Biomedical Engineering Technologist ID - NELLY WCBC with platelet count + automated [id number] 04:32:00 Test Item Value Reference Range Interpretation [...] 450 K/CU MM MPV (test code = 68469-9) 11.2 fL 9.4-12.4 nRBC (test code = [...] 2801) Lab Interpretation (test code = Abnormal 17810-5) [facility] W/PLT COUNT & AUTO [id number] 04:32:00 Test Item Value Reference Range Interpretation [...] PERCENT (BEAKER) (test code = 2801) POCT-GLUCOSE [id number] 22:36:00 Test Item Value Reference Range Interpretation Comments POC-GLUCOSE METER 118 mg/dL 70-110 H : TESTED A T [facility] [address] (BEAKER) (test code = EVA Marcum [facility], 1538) [address]: Biomedical Engineering Technologist/Techni vanita ID = [id number] for CA RPIO, RICARDO RAD, CHEST, 1 VIEW, NON [id number] 18:08:00Reason for exam:->Confirm pacemaker lead placementShould this [...] MDReport Verified Date/Time: 02/05/2020 18:08:29 Reading Location: [address] Transitional Reading Room XR chest 1 view portable / [id number] 18:08:00 Interface, External Ris In - 02/05/2020 [...] Vincent Verified Date/Time: 02/05/2020 18:08:29 Reading Location: [facility] C013T Transitional Reading [facility] [id number] 17:06:00 Test Item Value Reference Range Interpretation Comments POC-GLUCOSE METER 91 mg/dL 70-110 : TESTED A T [facility] [address] (BEAKER) (test code = [place], 1538) [address]: Biomedical Engineering Technologist/Techni vanita ID = [id number] for JADYN DOMÍNGUEZ ECG 12 [id number] 13:06:41Interface, External Ris In - 02/05/2020 1:06 PM CDTVentricular Rate 64 BPMAtrial Rate 64 BPMP-R Interval 152 msQRS Duration 106 msQ-T Interval 380 msQTC Calculation(Bazett) 392 msP Gloster 51 degreesR Gloster 57 degreesT Gloster -21 degreesNormal sinus rhythmIncomplete left bundle branch blockNonspecific ST and T wave abnormalityAbnormal ECGNo previous ECGs availableConfirmed by MD JHON, LAUREN ([id number]) on 02/05/2020 1:06:39 [facility] AreaBlood gas, [id number] 11:49:00 Test Item Value Reference Range Interpretation [...] (test code = 5.3 mmol/L -2-3 H 1925-01) Patient Temperature (test code = 36.3 C 8310-5) FIO2 (test code = 1819) 21 % Lab Interpretation (test code = Abnormal 16766-3) [facility]BL[facility], [id number] 11:49:00 Test Item Value Reference Range Interpretation [...] (test code = 1819) 21.0 % Hemoglobin [id number] 10:59:00 Test Item Value Reference Range Interpretation Comments Hemoglobin A1C (test code = 4548-4) 8.3 % 4.3-6.1 H Lab Interpretation (test code = Abnormal 58236-0) [facility] HospitalHEMOGLOBIN [id number] 10:59:00 Test Item Value Reference Range Interpretation Comments HEMOGLOBIN A1C (BEAKER) (test code = 8.3 % 4.3-6.1 H 368) ABORH, [id number] 09:54:00 Test Item Value Reference Range Interpretation Comments ABO Grouping (test code = 2588) AB Rh Factor (test code = 2589) POS [facility] HospitalType and screen, [id number] 09:35:00 Test Item Value Reference Range Interpretation Comments ABO/RH AUTOMATED (BEAKER) (test AB POSITIVE code = 2260) Ab Scrn (test code = 890-4) NEGATIVE [facility] HospitalRAD, CHEST, 1 VIEW, NON [id number] 07:14:00 Reason for exam:->hypoxiaShould this be performed at the bedside?->Yes FINAL REPORT RAD, CHEST, 1 VIEW, NON DEPT INDICATION: hypoxia COMPARISON: Prior day's exam FINDINGS: Portable frontal view of the chest. IMPRESSION: Support Lines: None Lungs and pleura: Clear lungs No pneumothorax.Heart and mediastinum: Unremarkable contours.Additional findings: None. Signed: JR Vaughn Robert MDReport Verified Date/Time: 02/05/2020 07:14:51 ReadingLocation: JASMYN Ramirez [...] 40-70 H HCO3, Cuco (test code = 91145-4) 30 mmol/L 21-29 H Base Excess, Cuco (test code = 4.3 mmol/L -2-3 H 1927-3) Patient Temperature (test code = 37.0 C 8310-5) FIO2 (test code = 1819) 21 % Lab Interpretation (test code = Abnormal 28377-1) [facility] HospitalBLOOD GAS, [id number] 02:00:00 Test Item Value Reference Range Interpretation [...] (test code = 1819) 21.0 % Lipid [id number] 01:56:00 Test Item Value Reference Range Interpretation Comments Triglycerides (test 119 mg/dL code = 2571-8) Cholesterol (test code 192 mg/dL = 2093-3) HDL (test code = 34 mg/dL 5-9) LDL Calculated (test 134 mg/dL code = 61975-9) YOMI (test code = YOMI) Triglyceride Reference Range: Low Risk <150 Borderline 150-199 High Risk 200-499 Very High Risk >=500 Cholesterol Reference Range: Low Risk <200 Borderline 200-239 High Risk >240 HDL Cholesterol Reference Range: Low Risk >=60 High Risk <40 LDL Cholesterol Reference Range: Optimal <100 Near Optimal 100-129 Borderline 130-159 High 160-189 Very High >=190 Biomedical Engineering Technologist ID - NELLY Gertrude [facility] HospitalMAGNESIUM2020-08-04 01:56:00 Test Item Value Reference Range Interpretation Comments MAGNESIUM (BEAKER) (test code = 1.8 mg/dL 1.6-2.6 627) Biomedical Engineering Technologist ID - NELLY WBASIC METABOLIC [id number] 01:56:00 Test Item Value Reference Range Interpretation [...] S NOT APPLICABLE FOR DIALYSIS PATIEN TS. Biomedical Engineering Technologist ID - NELLY WLIPID [id number] 01:56:00 Test Item Value Reference Range Interpretation [...] Borderline 130-159 High 160-189 Very High >=190 Biomedical Engineering Technologist ID - DONNAWCBC W/PLT COUNT & AUTO [id number] 01:42:00 Test Item Value Reference Range Interpretation [...] PERCENT (BEAKER) (test code = 2801) SARS-CoV2/RT-PCR ([facility])2020-02-04 10:32:00 Test Item Value Reference Range Interpretation Comments SARS-COV2/RT-PCR Negative Not Detected, (test code = Negative, See 21961-5) external report for linked test SARS-COV-2 [facility] KYLIE PERFORMING LAB (test code = 73063-9) YOMI (test code = Negative result for [...] of the Act. Fact Sheet for Healthcare Providers:https://www.SmartAsset/sites/default/f angelina/product/documents/F act_Sheet_HC_Providers_L ivh_DMIN-XnK-2.pdf Fact Sheet for Healthcare Patients:https://www.Leonar3Do/sites/default/fi les/product/documents/Fa ct_Sheet_Patients_Lyra_S ARS-CoV-2.pdf Performing Laboratory:[facility]ARS-COV2/RT-PCR ([facility])2020-02-04 10:32:00 Test Item Value Reference Range Interpretation Comments SARS-COV2/RT-PCR (test Negative Not Detected, Negative, code = 9716853) See external report for linked test SARS-COV-2 PERFORMING LAB [facility] KYLIE (test code = 2397785) Negative result for this test determines that [...] 564(g) of the Act.Fact Sheet for Healthcare Providers:https://www.Picketidel.Realtime Worlds/sites/default/files/product/documents/Fact_Shee t_HZ_Zbabndbas_Zmsl_HYOK-LmF-8.pdfFact Sheet for Healthcare Patients:https://www.CellVir.com/sites/default/files/product/ documents/Dqfj_Fjxrx_Qguzmxsg_Egyk_UUSC-IrD-5.pdfPerforming Laboratory:[facility] [place] [address]
--- OUTSIDE RECORDS SUMMARY | 2020-06-11 21:11 | XMS REPORT | Clinical Summary ---
:1965 Author Organization [facility] Address [address] [place] [address] Care Team Providers Name Role Phone Pcp [...] Reilly MD 02/03/2020 Lab Requisition Lab after 06/11/2019 Social History Tobacco Use Types Packs/Day Years [...] Completed 04/20/2019, 2013 Implants Implanted Type Area Budget Examiner Device Identifier Shelf Model / Expiration Serial / Date Lot Lead Pacemkr Cecily [place] 52x1 [id number] - [id number] PACEMAKER/I [employer]:CARD [id number] 09/27/2021 [id number] / Implanted: Qty: 1 on 02/05/2020 by Prem Herron MD at [facility] CD CHAMBER RHY:DISEASE MGT [id number] / DEVICE Description:Ventricular Lead Lead Pacemkr Cecily Tovar 45x1 [id number] - [id number] PACEMAKER/IC D [employer]TRON[employer]:CARD [id number] 08/28/2021 [id number] / Implanted: Qty: 1 on 02/05/2020 by Prem Herron MD at [facility] CHAMBER DEVICE RHY:DISEASE MGT [id number] / Description:Atrial Lead Pacemkr [place] Xtdr Mri Ipg [id number] - [id number] PACEMAKER/ICD MEDTRONIC:CARD [id number] 05/31/2021 [id number] / Implanted: Qty: 1 on 02/05/2020 by Prem Herron MD at [facility] CHAMBER DEVICE RHY:PACING SYS [id number] / Description:Chest Procedures Procedure Name Priority Date/Time [...] 380 ms QTC Calculation(Bazett) 392 ms P [place] 51 degrees R [place] 57 degrees T [place] -21 degrees Normal sinus rhythm Incomplete left [...] i n the results section . 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 Lilia Kingston, RDCS,RVT,RDMS Insurance Sales Professional Linda Rodriguez, Interpreting Nilda Myles MD RDCS [...] Study 02/06/2020 RU Gender Male Visit Number [id number] Race Unknown Room Num [facility] 636 Number Date of 1965 Justin Mockcherrifantasma Physicia n Age 54 year(s) Sonograp her Rubens Jurado, NB, RDCS,RVT,RDMS Insurance Sales Professional Anthony Lezama MD RDCS Physicia n Procedure [...] TR Gradient: 23.87 mmHg Performing Organization Address City/[facility] Cent[facility] Phone Number [facility] MKCKESSON CPACS POC-Glucose meter (02/06/2020 7:12 AM CDT)Only the most recent of3 results within the time period is included. POC-Glucose Meter 131 (H)Comment: 70 - 110 mg/dL [facility] : TESTED AT [address], [address]: Semi Driver/Technic oswaldo ID = [id number] for KENDRICK HAN Specimen Blood Performing Organization Address [facility] Centercode Phone Number [place] [phone] CENTER CBC with platelet count + automated diff (02/06/2020 4:03 AM CDT)Only the most recent of2 resultswithin the time period is included. Pathologist Sig nature WBC 8.1 3.5 - 10.5 [facility] K/L [facility] RBC 5.09 4.63 - 6.08 [facility] M/L [facility] Hemoglobin 13.5 (L) 13.7 - 17.5 [facility] GM/DL [facility] Hematocrit 45.1 40.1 - 51.0 % [facility] MCV 88.6 79.0 - 92.2 fL [facility] MCH 26.5 25.7 - 32.2 pg [facility] MCHC 29.9 (L) 32.3 - 36.5 [facility] GM/DL [facility] RDW 15.9 (H) 11.6 - 14.4 % [facility] Platelets 265 150 - 450 K/CU [facility] MPV 11.2 9.4 - 12.4 fL [facility] nRBC 0 0 - 0 /100 WBC [facility] % Neutros 65 % [facility] % Lymphs 24 % [facility] % Monos 9 % [facility] % Eos 1 % [facility] % Baso 0 % [facility] # Neutros 5.27 1.78 - 5.38 [facility] # Lymphs 1.96 1.32 - 3.57 [facility] # Monos 0.69 0.30 - 0.82 [facility] # Eos 0.08 0.04 - 0.54 [facility] # Baso 0.03 0.01 - 0.08 [facility] Immature 0 0 - 1 % [facility] Specimen Blood Performing Organization Address City/State/Zipcode Phone Number [facility] [address] [place] [address] CENTER Magnesium (02/06/2020 4:02 AM CDT)Only the most recent of2 resultswithin the time period is included. Pathologist Sig nature Magnesium 1.9Comment: Specimen 1.6 - 2.6 mg/dL [facility] slightly hemolyzed [facility] Specimen Blood Narrative Performed At Semi Driver ID - NELLY Loredo [facility] Performing Organization Address [facility] Centercode Phone Number [facility] [address] [place] [address] CENTER Basic metabolic panel (02/06/2020 4:02 AM CDT)Only the most recent of2 results within the time period is included. Sodium 137 136 - 145 meq/L [facility] Potassium 4.4Comment: Specimen 3.5 - 5.1 meq/L [facility] Chloride 101 98 - 107 meq/L [facility] CO2 28 22 - 29 meq/L [facility] BUN 13 7 - 21 mg/dL [facility] Creatinine 0.73Comment: 0.57 - 1.25 [facility] Specimen slightly mg/dL [facility] hemolyzed [place] Glucose 124 (H) 70 - 105 mg/dL [facility] Calcium 8.2 (L) 8.4 - 10.2 [facility] mg/dL [facility] EGFR 112Comment: mL/min/1.73 sq [facility] ESTIMATED GFR IS NOT [facility] ACCURATE [place] CREATININE CLEARANCE IN PREDICTING GLOMERULAR FILTRATION RATE. ESTIMATED GFR IS NOT APPLICABLE FOR DIALYSIS PATIENTS. Specimen Blood Narrative Performed At Semi Driver ID - NELLY Loredo [facility] Performing Organization Address [facility]/Zipcode Phone Number [facility] [address] [place] [address] CENTER XR chest 1 view [...] Report Verified Date/Time: 02/05/2020 18:08:29 Reading Location: [address] Reading Room Procedure Note Interface, External [...] Verified Date/Time: 02/05/2020 1 8:08:29 Reading Location: [facility] [address] [place] [address] Reading Room Performing Organization Address City/State/Zipcode Phone Number [facility] Blood gas, arterial (02/05/2020 11:36 AM CDT) Pathologist Sig nature pH, Arterial 7.42 7.35 - 7.45 [facility] pCO2, Arterial 48 (H) 35 - 45 mmHg [facility] pO2, Arterial 70 (L) 80 - 90 mmHg [facility] O2 Sat, Arterial 94.8 (L) 96.0 - 97.0 % [facility] HCO3, Arterial 31 (H) 21 - 29 mmol/L [facility] Base Excess, Arterial 5.3 (H) -2.0 - 3.0 [facility] mmol/L [facility] Patient Temperature 36.3 C [facility] FIO2 21.0 % [facility] Specimen Blood, Arterial Performing Organization Address [facility] Centercohi Phone Number [address] [address] CENTER ABORH, manual (02/05/2020 8:59 AM CDT) Pathologist Sig nature ABO Grouping AB [facility] Rh Factor POS [facility] Specimen Blood Performing Organization Address [facility] Centerc[facility]i Phone Number [address] [address] Type and screen, automated (02/05/2020 8:30 AM CDT) Pathologist Sig nature ABO/RH AUTOMATED AB POSITIVE [facility] Ab Scrn NEGATIVE [facility] Specimen Blood Performing Organization Address [facility] Phone Number [address] [address] ECG 12 lead (02/05/2020 6:40 AM CDT) Specimen Narrative Performed At Ventricular Rate 64 BPM GE MUSE Atrial Rate 64 BPM P-R Interval 152 ms QRS Duration 106 ms Q-T Interval 380 ms QTC Calculation(Bazett) 392 ms P [place] 51 degrees R [place] 57 degrees T [place] -21 degrees Normal sinus rhythm Incomplete left [...] 380 ms QTC Calculation(Bazett) 392 ms P [place] 51 degrees R [place] 57 degrees T [place] -21 degrees Normal sinus rhythm Incomplete left bundle branch block Nonspecific ST and T wave abnormality Abnormal ECG No previous ECGs available Confirmed by MD JHON, BLANQUITA ([id number]) on 02/05/2020 1:06:39 PM Performing Organization Address City/[facility] Centercode Phone Number MUSE Hemoglobin A1c (02/05/2020 1:23 AM CDT) Pathologist Sig nature Hemoglobin A1C 8.3 (H) 4.3 - 6.1 % [facility] Specimen Blood Performing Organization Address [facility] Phone Number [address] [address] [place] Blood gas, venous (02/05/2020 1:23 AM CDT) Pathologist Sig nature pH, Cuco 7.39 7.32 - 7.42 [facility] pCO2, Cuco 52 (H) 41 - 51 mmHg [facility] pO2, Cuco 147 (H) 25 - 40 mmHg [facility] O2 Sat, Cuco 98.8 (H) 40.0 - 70.0 % [facility] HCO3, Cuco 30 (H) 21 - 29 mmol/L [facility] Base Excess, Cuco 4.3 (H) -2.0 - 3.0 [facility] mmol/L [facility] Patient Temperature 37.0 C [facility] FIO2 21.0 % [facility] Specimen Blood Performing Organization Address [facility] Phone Number [facility] [address] [place] [address] [place] Lipid panel (02/05/2020 1:22 AM CDT) Pathologist Sig nature Triglycerides 119 mg/dL [facility] ME DICAL [place] Cholesterol 192 mg/dL [facility] MED ICAL [place] HDL 34 mg/dL [facility] LDL Calculated 134 mg/dL [facility] Specimen Blood Narrative Performed At Triglyceride Reference Range: [facility] Low Risk <150 Borderline 150-199 High Risk 200-499 Very High Risk >=500 Cholesterol Reference Range: Low Risk <200 Borderline 200-239 High Risk >240 HDL Cholesterol Reference Range: Low Risk >=60 High Risk <40 LDL Cholesterol Reference Range: Optimal <100 Near Optimal 100-129 Borderline 130-159 High 160-189 Very High >=190 Semi Driver ID - NELLY W Performing Organization Address City/State/Zipcode Phone Number [facility] [address] [place] [address] CENTER SARS-CoV2/RT-PCR ([facility]) (02/03/2020 8:16 PM CDT) SARS-COV2/RT-PCR Negative Not Detected, [facility] Negative, See [facility] external report CENTER for linked test SARS-COV-2 [facility] KYLIE [facility] PERFORMING LAB [facility] Specimen Other - Nasopharyngeal wall structure (b yinka structure) Narrative Performed At Negative result for this test determines that [facility] SARS-CoV-2 RNA was not present [...] the Act. Fact Sheet for Healthcare Providers: https://www.Moped/sites/default/files/pro duct/documents/Fact_Sheet_HC_Providers_Lyra_SA RS-CoV-2.pdf Fact Sheet for Healthcare Patients: https://www.Moped/sites/default/files/pro duct/documents/Fact_Sheet_Patients_Lyra_SARS-C oV-2.pdf Performing Laboratory: [place] [address] Performing Organization Address City/State/[place] [address] CENTER after 06/11/2019 Advance Directives For more information, please contact: [phone] Code Status Date Activated Date Inactivated Comments Full Code 02/04/2020 11:59 PM 02/06/2020 5:54 PM This code status was determined by: Patient
--- OUTSIDE RECORDS SUMMARY | 2020-06-11 21:14 | XMS REPORT | Summary of Care ---
:1965 Author Organization [facility] Address [address] [place] [address] Care Team Providers Name Role Phone JOSEFINA Lucero Primary Care Provider Reason for Referral (Routine) Status Reason Specialty Diagnoses / Referred By Referred To Procedures Contact Contact New Request Cardiology Diagnoses Dyspnea on exertion Morbid obesity with body mass index of 40.0-49.9 BRIDGET (obstructive sleep apnea) Acute pulmonary embolism without acute cor pulmonale, unspecified pulmonary embolism type Essential hypertension Ekta Lucero FNP Chest pain, unsp ecified type Pacemaker [address] [facility] Procedures CONSULT/[place] [address] (Routine) Status Reason Specialty Diagnoses / Referred By Referred To Procedures Contact Contact New Request Pulmonary Disease Diagnoses Dyspnea on exertion Morbid obesity with body mass index of 40.0-49.9 BRIDGET (obstructive sleep apnea) Acute pulmonary embolism without acute cor pulmonale, unspecified pulmonary embolism type Ekta Lucero, Procedures CONSULT/REFERRAL PULMONARY PAPER [employer] [address] [place] [address] Reason for Visit Reason Comments Referral/consult Encounter Details Date Type Department Care Team Description 06/06/2020 [facility]consult [facility] Clin ic [address] [facility] [address] [place] [address] [place] [address] [phone] Allergies Active Allergy Reactions Severity Noted Date Comments Azithromycin Swelling High 08/11/2018 Throat swells Metoprolol Other - See comments 07/11/2018 Lowers heart rate too low documented as of this encounter (statuses as of 06/06/2020) Medications Medication Sig Dispensed Refills Start Date [...] as of this encounter (statuses as of 06/06/2020) Active Problems Problem Noted Date Pulmonary embolism [...] as of this encounter (statuses as of 06/06/2020) Immunizations Name Administration Dates Next Due Influenza [...] with No / Unsure 05/14/2020 9:37 AM 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 documented as of this encounter Last Filed Vital Signs Not on filedocumented in this encounter Plan of Treatment Date Type Specialty Care Team Description 06/10/2020 Laboratory Only Cardiology Pacemaker/Icd, Adc 08/28/2020 Office Visit Pulmonary Disease Mayela Funes DO [address] [place] [id number] 11/11/2020 Office Visit Cardiology Eunice Chang M D [address] [facility] [address] [place], [place] [address] [phone] Health Maintenance Due Date Last Done Comments [...] of this encounter Implants Implanted Type Area Harness Builder Device Identifier Shelf Exp iration Model / Date Serial / L ot Pacemaker PACEMAKER documented as of this encounter Results Not on filedocumented in this encounter Visit Diagnoses Diagnosis Essential hypertension - Primary Unspecified essential hypertension Dyspnea on exertion Other dyspnea and respiratory abnormalit y Morbid obesity with body mass index of 4 0.0-49.9 BRIDGET (obstructive sleep apnea) Obstructive sleep apnea (adult) (pediatr ic) Acute pulmonary embolism without acute c or pulmonale, unspecified pulmonary embolism type Chest pain, unspecified type Pacemaker Cardiac pacemaker in situ documented in this encounter Insurance Payer Benefit Plan Subscriber ID Effective Phone Address Typ e / Group Dates [employer] [id number] 2018-08/03 [phone] [facility] [address] [place] [address] documented as of this encounter
--- NOTE | 2020-06-11 21:19 | ER ---
Nurse's Notes [facility] Name: Juan Miguel Langston Age: 54 yrs Sex: Male : 1965 Arrival Date: 06/11/2020 Time: 14:47 Bed 7 Private MD: Diagnosis: Near Syncope;Low Blood Pressure Presentation: 06/11 15:14 Chief complaint: Patient states: had low BP reading today, has been feeling wobbly, BP iw readings were 92/83, 83/76, 93/76, denies fever , chills, has chronic cough, was COVID negative earlier this week, feels dizzy. Coronavirus screen: At this time, the client does not indicate any symptoms associated with coronavirus-19. Ebola Screen: Patient negative for fever greater than or equal to 101.5 degrees Fahrenheit, and additional compatible Ebola Virus Disease symptoms Patient denies exposure to infectious person. Patient denies travel to an Ebola-affected area in the 21 days before illness onset. No symptoms or risks identified at this time. Initial Sepsis Screen: Does the patient meet any 2 criteria? No. Patient's initial sepsis screen is negative. Does the patient have a suspected source of infection? No. Patient's initial sepsis screen is negative. Risk Assessment: Do you want to hurt yourself or someone else? Patient reports no desire to harm self or others. Onset of symptoms was June 11, 2020. 15:14 Method Of Arrival: Wheelchair iw 15:14 Acuity: DESTINY 3 iw Historical: - Allergies: 15:18 Azithromycin; iw 15:18 Beta-Blockers (Beta-Adrenergic Bloc; iw 15:18 Metoprolol Tartrate; iw 15:18 Demerol; iw - Home Meds: 15:18 aspirin 325 mg Oral tab [Active]; clopidogrel 75 mg Oral tab 1 tab once daily [Active]; iw lisinopril 40 mg Oral tab once daily [Active]; Livalo 4 mg Oral tab 1 tab nightly [Active]; ProAir HFA 90 mcg/actuation inhalation HFAA 2 puffs every 6 hours [Active]; tramadol 50 mg Oral tab 1 tab every 6 hours for Pain [Active]; 18:31 Lasix 40 mg oral tab once daily [Active]; Eliquis 5 mg oral tab 1 tab 2 times per day sv [Active]; Norvasc 10 mg Oral tab 1 tab once daily [Active]; Metformin ER 500 mg BID [Active]; isosorbide dinitrate 30 mg Oral tab daily [Active]; Phenergan 25 mg Q6H prn n/v Oral [Active]; nitroglycerin 0.4 mg SL subl 1 tab every 5 minutes [Active]; - PMHx: 15:18 Angina; COPD; Diabetes - NIDDM; High Cholesterol; Hypertension; Myocardial infarction; iw Sleep Apnea; - PSHx: 15:18 pacemaker; iw - Immunization history:: Adult Immunizations up to date. - Social history:: Smoking status: Patient reports the use of cigarette tobacco products, smokes one-half pack cigarettes per day. Screenin:20 Abuse screen: Denies threats or abuse. Denies injuries from another. Nutritional sv screening: No deficits noted. Tuberculosis screening: No symptoms or risk factors identified. Fall Risk None identified. Assessment: 18:20 General: Appears in no apparent distress. comfortable, unkempt, well developed, sv Behavior is calm, cooperative, appropriate for age. Pain: Denies pain. Neuro: Level of Consciousness is awake, alert, obeys commands, Oriented to person, place, time, situation, Moves all extremities. Full function Gait is steady, Speech is normal. Neuro: Reports dizziness. Respiratory: Airway is patent Respiratory effort is even, unlabored, Respiratory pattern is regular, symmetrical. Derm: Skin is pink, warm \T\ dry. Musculoskeletal: Range of motion: intact in all extremities. Vital Signs: 15:18 BP 100 / 62; Pulse 95; Resp 20 S; Temp 98.5(TE); Pulse Ox 95% on R/A; Weight 119.75 kg; iw Height 5 ft. 6 in. (167.64 cm); 18:13 BP 95 / 58; Pulse 80 MON; Resp 20; Pulse Ox 97% on R/A; sv 20:50 BP 114 / 62; Pulse 86; Resp 15; Temp 98.4; Pulse Ox 98% on R/A; rv 15:18 Body Mass Index 42.61 (119.75 kg, 167.64 cm) iw 18:13 Sinus Rhythm sv ED Course: 14:47 Patient arrived in ED. rg4 15:16 Triage completed. iw 15:18 Arm band placed on. iw 17:39 Nilda Olea, RN is Primary Nurse. sv 17:40 Carlito Guerrero PA is PHCP. [facility] 17:40 Jonathan Suarez MD is Attending Physician. [facility] 18:11 EKG done, by ED staff, reviewed by Carlito CHUN. jb1 18:20 Patient has correct armband on for positive identification. Bed in low position. Call sv light in reach. Side rails up X2. Adult w/ patient. equipment monitor phototypesetting on. Pulse ox on. NIBP on. Door closed. Head of bed elevated. 18:20 Inserted saline lock: 20 gauge in right antecubital area, using aseptic technique. sv Blood collected. Flushed right antecubital with 5 ml normal saline. 18:24 CBC with Diff Sent. sv 18:24 Magnesium Sent. sv 18:24 LFT's Sent. sv 18:24 NT PRO-BNP Sent. sv 18:24 PT-INR Sent. sv 18:24 Troponin (emerg Dept Use Only) Sent. sv 18:26 Awaiting lab results. sv 19:08 Report given to Linden GRAJEDA and Alex GRAJEDA. sv 19:10 Primary Nurse role handed off by Nilda Olea RN mw2 20:50 Alex Gil, NICCI is Primary Nurse. rv 20:51 No provider procedures requiring assistance completed. IV discontinued, intact, rv bleeding controlled, No redness/swelling at site. Pressure dressing applied. Administered Medications: 18:24 Drug: NS 0.9% 1000 ml Route: IV; Rate: 1 bolus; Site: right antecubital; sv Outcome: 20:41 Discharge ordered by MD. [facility] 20:51 Discharged to home ambulatory, with family. rv 20:51 Condition: good 20:51 Discharge instructions given to patient, Instructed on discharge instructions, follow up and referral plans. Demonstrated understanding of instructions, follow-up care. 20:51 Patient left the ED. rv Signatures: Addison Kim jb1 Nilda Olea, Carlito Bae RN, PA PA jmm Williams, Irene, NICCI RN iw Kathya Childers rg4 Dez Marcum mw2 Alex Gil, NICCI RN rv Corrections: (The following items were deleted from the chart) 18:31 15:18 Home Meds: atorvastatin 40 mg Oral tab 1 tab nightly; [facility] 18:31 15:18 Home Meds: Combivent 18-103 mcg/actuation Inhl aero 2 puffs 4 times per day; [facility] :18 Home Meds: isosorbide 60 mg ER daily; [facility] 15:18 Home Meds: Lasix 20 mg Oral tab once daily; [facility] 15:18 Home Meds: metformin 500 mg Oral tab 1 tab 2 times per day; [facility] 15:18 Home Meds: omeprazole 40 mg Oral cpDR 1 cap once daily; [facility]
--- NOTE | 2020-06-11 21:20 | EDPHYS ---
Physician Documentation [facility] Name: Juan Miguel Langston Age: 54 yrs Sex: Male : 1965 Arrival Date: 06/11/2020 Time: 14:47 Bed 7 Private MD: ED Physician Jonathan Suarez HPI: 06/11 17:56 This 54 yrs old Male presents to ER via Wheelchair with complaints of Blood jmm Pressure Problem. 17:56 The patient has experienced near-syncope. Onset: The symptoms/episode began/occurred jmm today. Duration: This was a single episode. Associated injury: The patient did not suffer any apparent associated injury. Associated signs and symptoms: Pertinent negatives: abdominal pain, chest pain. This is a 54 year old male with a history of DM, HLP, HTN, that presents to the ED with complaints of low blood pressure along with near syncope. Patient states having trouble maintaining balance on his bicycle. Symptoms have decreased since initial onset. . Historical: - Allergies: 15:18 Azithromycin; iw 15:18 Beta-Blockers (Beta-Adrenergic Bloc; iw 15:18 Metoprolol Tartrate; iw 15:18 Demerol; iw - Home Meds: 15:18 aspirin 325 mg Oral tab [Active]; clopidogrel 75 mg Oral tab 1 tab once daily [Active]; iw lisinopril 40 mg Oral tab once daily [Active]; Livalo 4 mg Oral tab 1 tab nightly [Active]; ProAir HFA 90 mcg/actuation inhalation HFAA 2 puffs every 6 hours [Active]; tramadol 50 mg Oral tab 1 tab every 6 hours for Pain [Active]; 18:31 Lasix 40 mg oral tab once daily [Active]; Eliquis 5 mg oral tab 1 tab 2 times per day sv [Active]; Norvasc 10 mg Oral tab 1 tab once daily [Active]; Metformin ER 500 mg BID [Active]; isosorbide dinitrate 30 mg Oral tab daily [Active]; Phenergan 25 mg Q6H prn n/v Oral [Active]; nitroglycerin 0.4 mg SL subl 1 tab every 5 minutes [Active]; - PMHx: 15:18 Angina; COPD; Diabetes - NIDDM; High Cholesterol; Hypertension; Myocardial infarction; iw Sleep Apnea; - PSHx: 15:18 pacemaker; iw - Immunization history:: Adult Immunizations up to date. - Social history:: Smoking status: Patient reports the use of cigarette tobacco products, smokes one-half pack cigarettes per day. ROS: 17:56 Constitutional: Negative for fever, chills, and weight loss, Cardiovascular: Negative jmm for chest pain, palpitations, and edema, Respiratory: Negative for shortness of breath, cough, wheezing, and pleuritic chest pain. 17:56 Neuro: Positive for near syncope, weakness. 17:56 All other systems are negative. Exam: 17:56 Constitutional: This is a well developed, well nourished patient who is awake, alert, jmm and in no acute distress. Head/Face: atraumatic. Eyes: EOMI, no conjunctival erythema appreciated ENT: Moist Mucus Membranes Neck: Trachea midline, Supple Chest/axilla: Normal chest wall appearance and motion. Cardiovascular: Regular rate and rhythm. No edema appreciated Respiratory: Normal respirations, no respiratory distress appreciated Abdomen/GI: Non distended, soft Back: Normal ROM Skin: General appearance color normal MS/ Extremity: Moves all extremities, no obvious deformities appreciated, no edema noted to the lower extremities Neuro: Awake and alert, normal gait Psych: Behavior is normal, Mood is normal, Patient is cooperative and pleasant Vital Signs: 15:18 BP 100 / 62; Pulse 95; Resp 20 S; Temp 98.5(TE); Pulse Ox 95% on R/A; Weight 119.75 kg; iw Height 5 ft. 6 in. (167.64 cm); 18:13 BP 95 / 58; Pulse 80 MON; Resp 20; Pulse Ox 97% on R/A; sv 20:50 BP 114 / 62; Pulse 86; Resp 15; Temp 98.4; Pulse Ox 98% on R/A; rv 15:18 Body Mass Index 42.61 (119.75 kg, 167.64 cm) iw 18:13 Sinus Rhythm sv MDM: 17:49 Patient medically screened. [facility] 20:37 Data reviewed: vital signs, nurses notes. Counseling: I had a detailed discussion with judy the patient and/or guardian regarding: the historical points, exam findings, and any diagnostic results supporting the discharge/admit diagnosis, lab results, radiology results, the need for outpatient follow up, to return to the emergency department if symptoms worsen or persist or if there are any questions or concerns that arise at home. ED course: Patient is alert and non toxic in appearance. BP increased in the ED. Patient advised to decrease lisinopril and follow up with pcp. . 12 17:54 Order name: Basic Metabolic Panel; Complete Time: 19:05 [facility] 06/11 17:54 Order name: CBC with Diff [facility] 06/11 17:54 Order name: LFT's [facility] 06/11 17:54 Order name: Magnesium [facility] 06/11 17:54 Order name: NT PRO-BNP [facility] 06/11 17:54 Order name: PT-INR [facility] 06/11 17:54 Order name: Troponin (emerg Dept Use Only) [facility] 06/11 18:40 Order name: CBC with Automated Diff; Complete Time: 18:46 [facility] 06/11 18:52 Order name: Troponin (Emerg Dept Use Only); Complete Time: 18:54 [facility] 06/11 18:52 Order name: NT PRO-BNP; Complete Time: 18:54 [facility] 06/11 19:01 Order name: Liver (Hepatic) Function; Complete Time: 19:05 [facility] 06/11 19:02 Order name: Magnesium; Complete Time: 19:05 [facility] 06/11 19:14 Order name: Protime (+INR); Complete Time: 19:21 [facility] 06/11 17:54 Order name: EKG; Complete Time: 17:56 [facility] 06/11 17:54 Order name: Cardiac monitoring; Complete Time: 18:24 [facility] 06/11 17:54 Order name: EKG - Nurse/Tech; Complete Time: 18:11 [facility] 06/11 17:54 Order name: IV Saline Lock; Complete Time: 18:24 [facility] 06/11 17:54 Order name: Labs collected and sent; Complete Time: 18:24 [facility] 06/11 17:54 Order name: O2 Per Protocol; Complete Time: 18:11 [facility] 06/11 17:54 Order name: O2 Sat Monitoring; Complete Time: 18:11 [facility] Administered Medications: 18:24 Drug: NS 0.9% 1000 ml Route: IV; Rate: 1 bolus; Site: right antecubital; sv Disposition: 06/11/20 20:41 Discharged to Home. Impression: Near Syncope, Low Blood Pressure. - Condition is Stable. - Discharge Instructions: Hypotension. - Medication Reconciliation Form, Thank You Letter, Antibiotic Education, Prescription Opioid Use form. - Follow up: Private Physician; When: 2 - 3 days; Reason: Recheck today's complaints, Continuance of care, Re-evaluation by your physician. Addendum: 06/24/2020 04:00 Co-signature as Attending Physician, Jonathan Suarez MD. m a2 Signatures: Dispatcher [employer] Nilda Smyth RN RN Carlito Guerrero PA PA jmm Williams, Irene, RN RN Daniela, MD YOBANY Castillo ma2 Alex Gil RN RN rv Corrections: (The following items were deleted from the chart) 06/11 18:31 15:18 Home Meds: atorvastatin 40 mg Oral tab 1 tab nightly; [facility] 18: 15:18 Home Meds: Combivent 18-103 mcg/actuation Inhl aero 2 puffs 4 times per day; [facility] 18: 15:18 Home Meds: isosorbide 60 mg ER daily; [facility] 18:31 15:18 Home Meds: Lasix 20 mg Oral tab once daily; [facility] 18:31 15:18 Home Meds: metformin 500 mg Oral tab 1 tab 2 times per day; [facility] 18: 15:18 Home Meds: omeprazole 40 mg Oral cpDR 1 cap once daily; [facility] 20:51 20:41 06/11/2020 20:41 Discharged to Home. Impression: Near Syncope; Low Blood rv Pressure. Condition is Stable. Forms are Medication Reconciliation Form, Thank You Letter, Antibiotic Education, Prescription Opioid Use. Follow up: Private Physician; When: 2 - 3 days; Reason: Recheck today's complaints, Continuance of care, Re-evaluation by your physician. kiki
--- NOTE | 2020-06-12 10:59 | EKG ---
Test Date: 2020-06-11 Test Time: 18:07:18 Per Diem Registered Nurse: LASHAWN MEASUREMENT RESULTS: Intervals: Rate: 85 GA: 138 QRSD: 104 QT: 364 QTc: 433 [place]: P: 51 GA: 138 QRS: 63 T: 37 INTERPRETIVE STATEMENTS: Normal sinus rhythm Normal ECG Compared to ECG 05/06/2020 14:35:19 T-wave abnormality no longer present Possible ischemia no longer present Electronically Signed On 06-12-20 10:56:30 ELECTRICIAN'S ASSISTANT by Nazario Anderson
== END 2020-06-11 20:51 | disposition home or self-care (01) ==
LOC: ER 14:41
DX: I95.9 Hypotension, unspecified (principal); Z95.0 Presence of cardiac pacemaker; E11.9 Type 2 diabetes mellitus without complications; J44.9 Chronic obstructive pulmonary disease, unspecified; I10 Essential (primary) hypertension; F17.210 Nicotine dependence, cigarettes, uncomplicated; Z79.01 Long term (current) use of anticoagulants; Z79.82 Long term (current) use of aspirin; Z88.3 Allergy status to other anti-infective agents; Z88.5 Allergy status to narcotic agent; Z88.8 Allergy status to other drugs, medicaments and biological substances
CPT/HCPCS: 93005; 85025; 80048; 36415; 83735; 85610; 80076; 84484; 83880; 99284; J7030

== ENCOUNTER 2020-06-12 14:42 | Emergency (ER) | payer OTHER ==
--- OUTSIDE RECORDS SUMMARY | 2020-06-12 15:12 | XMS REPORT | Continuity of Care Document ---
:1965 Author Organization [facility] t Address [address] [place] [address] Care Team Providers Name Role Phone Pcp [...] [facility]04 [facility] 00 [place] HLD HLD Disease Active [facility] (hyperlipi (hyperlipi 02-04 Melia kes - demia) demia) 00:00: Medical 00 Center Coronary Coronary Disease [facility] - disease disease 00:00: Medical 00 Center BRIDGET BRIDGET Disease Active [facility] (obstructi (obstructi 02-04 Melia kes - ve sleep ve sleep 00:00: Medica l apnea) apnea) 00 Center Morbid Morbid Disease Active [facility] obesity obesity 02-04 [facility] - with BMI with BMI 00:00: Medica l of of 00 Center 40.0-44.9, 40.0-44.9, adult adult Syncope Syncope Disease Active [facility] due to due to 02-03 [facility] - sick sinus sick sinus 00:00: Me dical syndrome syndrome 00 [place] Sick sinus Sick sinus Disease Active [facility] syndrome syndrome 02-03 [facility] - due to SA due to SA 00:00: Medi ajith node node 00 [place] dysfunctio dysfunctio n n Homeless Homeless Disease Active [facility] - 00:00: Medical 00 Center Allergies, Adverse Reactions, Alerts This patient has no known allergies or adverse reactions. Social History Social Habit Start Date Stop Date Quantity Comments Source History [facility] - Alcohol Std Drinks Medica Center History [facility] Alcohol Binge Medical Olya ter Sex Assigned At [facility] Alcohol intake 2020-02-06 2020-02-06 Current [facility] - 00:00:00 00:00:00 non-drinker of Medical Ce nter alcohol (finding) History [facility] 2020-02-04 2020-02-04 1 [facility] - Alcohol Frequency 00:00:00 00:00:00 [facility] Smoking Status Start Date Stop Date Source Current every day smoker 2020-02-06 00:00:00 [facility] Medications Ordered Filled Start Stop [...] Source Systolic blood 2020-02-06 11:21:00 146 mm[Hg] [facility] Diastolic blood 2020-02-06 11:21:00 74 mm[Hg] [facility] S [facility] Heart rate 2020-02-06 11:21:00 80 /min [facility] Body temperature 2020-02-06 11:21:00 37.06 [facility] Respiratory rate 2020-02-06 11:21:00 18 /min [facility] Oxygen saturation in 2020-02-06 11:21:00 94 /min [facility] Arterial blood by Medical Ce nter Pulse oximetry Body weight 2020-02-05 06:35:[address] [facility] BMI 2020-02-05 06:35:00 43.03 kg/m2 [facility] Body height 2020-02-04 22:00:[address] [facility] Procedures Procedure Date / Time Performed Performing Clinician Elo rodriguez ARRYTHMIA IMPLANT REPORT 2020-02-20 13:41:29 Provider, Default [facility] - SCAN Scanning [facility] RHYTHM STRIP - SCAN 2020-02-08 09:00:23 Provider, Default [facility] ARRYTHMIA IMPLANT REPORT 2020-02-08 09:00:19 Provider, Default [facility] - SC[facility] Scanning [facility] CARDIAC CATH REPORT - 2020-02-08 09:00:17 Provider, Default [facility] TRANSFUSION SERVICE 2020-02-06 18:02:59 Provider, Default [facility] REPORT - [facility] 2D ECHO W/ DOPPLER 2020-02-06 10:08:41 Fredrick Forrest [facility] (CW/PW/COLOR) [facility] POCT-GLUCOSE METER 2020-02-06 07:12:00 Timoteo Shipley [facility] CBC W/PLT COUNT & AUTO 2020-02-06 04:03:00 Lon [facility] DIFFERENTIAL [facility] BASIC METABOLIC PANEL 2020-02-06 04:02:00 Fredrick Forrest [facility] - (7) [facility] MAGNESIUM 2020-02-06 04:02:[address] [facility] POCT-GLUCOSE METER 2020-02-05 22:25:00 Timoteo Shipley [facility] XR CHEST 1 VIEW 2020-02-05 17:51:00 Eduardo Chavez [facility] - PORTABLE/BEDSIDE [facility] POCT-GLUCOSE METER 2020-02-05 16:47:00 Timoteo Shipley [facility] AICD UPGRADE - SINGLE TO 2020-02-05 12:29:00 Prem Elam [facility] DUAL CHAMBER SYSTEM Medical Cent er BLOOD GAS, ARTERIAL 2020-02-05 11:36:00 Dulce Wilde [facility] - [facility] ABORH, MANUAL 2020-02-05 08:59:00 Tiffanie Conner [facility] TYPE AND SCREEN, 2020-02-05 08:30:00 Eduardo Chavez [facility] - AUTOMATED [facility] XR CHEST 1 VIEW 2020-02-05 06:55:00 Dulce Wilde [facility] s - PORTABLE/BEDSIDE [facility] ECG 12-LEAD 2020-02-05 06:40:35 Unknown, Hl7 Doctor [facility] HEMOGLOBIN A1C 2020-02-05 01:23:[address] [facility] BLOOD GAS, VENOUS 2020-02-05 01:23:00 LonFredrick [facility] CBC W/PLT COUNT & AUTO 2020-02-05 01:23:00 Lon [facility] BASIC METABOLIC PANEL 2020-02-05 01:22:00 LonFredrick [facility] (7) [facility] MAGNESIUM 2020-02-05 01:22:00 N[facility] Fredrick [facility] LIPID PANEL 2020-02-05 01:22:00 [facility] SARS-COV2/RT-PCR ([facility] & 2020-02-03 20:16:00 [facility] LABS) [facility] Plan of Care Planned Activity Planned Date Details Comments Source Future Scheduled 2023-02-[address] [facility] - Test 00:00:00 (procedure) [code = Medical Center 68236635] Future Scheduled 2020-08-[address] [facility] k[facility] - Test 00:00:00 measurement [facility] (procedure) [code = 15504651] Future Scheduled 2020-03-[address] [facility] - Test 00:00:00 (#1) [code = Medical Center INFLUENZA VACCINE (#1)] Future Scheduled 1975-09-[address] DIABETIC EYE EXAM [facility] - Test 00:00:00 [code = DIABETIC EYE Medical Center EXAM] Future Scheduled 1975-09-[address] [facility] - Test 00:00:00 examination Medical Center (regime/therapy) [code = 531114488] Future Scheduled 1975-09-07 Urine screening [facility] - Test 00:00:00 protein (procedure) [facility] [code = 284752257] Future Scheduled [address] [facility] - Test 00:00:00 malignant neoplasm of Medica l Center colon (procedure) [code = 803380484] Encounters Start End Encounter Admission Attending Care Care Encounter Source Date/Time Date/Time Type Type Clinicians Facility Department ID 2020-06-06 2020-06-06 Telephone Ekta Lucero DANETTEMARGI [id number] 00:00:00 00:00:00 [place] [address]...[address] [place] [id number] UN[address] [id number] 2020-06-03 2020-06-03 Telephone Ekta Lucero [id number] 00:00:00 00:00:00 [place] [address]..13.10 [facility] [id number] UNIT [id number] Results Test Description Test Time Test Comments Results Result [facility] e Comments 2D Echo Ejection FractionSLEH [facility] W/Doppler(CW/PW/C 5 ECHO [facility] - [place] dical olor) 18:17:02 [facility] CPACSInterface, External Ris In - 02/06/2020 6:17 PM CDTTransthoracic Echocardiography Report (TTE) Demographics Patient Name SAMMY VALLE Date of Study 02/06/2020 RU Gender Male Visit Number [id number] Race Unknown Room Number 636 Number Date of 1965 Referring [facility] Age 54 year([facility]) 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 ROSSY Kingston, RDCS,RVT,RDMS President + Publisher Linda Rodriguez, Interpreting Nilda Myles MD RDCS [...] 131 mg/dL 70-110 H : TESTED AT [facility] [address] [facility] [address]) [place] [facility], [address]: Drum Sander Offbearer/Techni vanita ID = [id number] for KENDRICK HAN Lab Interpretation (test code = Abnormal 72277-9) [facility] [id number] 07:29:00 Test Item Value Reference Range Interpretation Comments POC-GLUCOSE METER 131 mg/dL 70-110 H : TESTED A T [facility] [address] (BEAKER) (test code = BERTINDIA R [facility], 1538) [address]: Drum Sander Offbearer/Techni vanita ID = [id number] for PO KENDRICK VORA Basic metabolic [id number] 04:43:00 Test Item Value Reference Range Interpretation Comments Sodium (test code = 137 meq/L 766-515 5819-2) Potassium (test code = 4.4 meq/L 3.5-5.1 [...] (test code = 8.2 mg/dL 8.4-10.2 L 73587-9) EGFR (test code = 112 mL/min/1.73 [place] [address]-7) NOT ACCURATE CREATININE CLEARANCE IN PREDICTING GLOMERULAR FILTRATION RATE . ESTIMATED GFR I S NOT APPLICABLE FOR DIALYSIS PATIENTS. YOMI (test code = YOMI) Drum Sander Offbearer ID - NELLY W Lab Interpretation Abnormal (test code = 80974-3) [facility]2020-08-05 04:43:00 Test Item Value Reference Range Interpretation Comments Magnesium (test code = 1.9 mg/dL 1.6-2.6 Speci men 12876-0) slightly hemolyzed YOMI (test code = YOMI) Drum Sander Offbearer ID - NELLY W Lab Interpretation Normal (test code = 27233-1) [facility]2020-08-05 04:43:00 Test Item Value Reference Range Interpretation Comments MAGNESIUM (BEAKER) 1.9 mg/dL 1.6-2.6 Specimen slightly (test code = 627) hemolyzed Drum Sander Offbearer ID - NELLY WBASIC METABOLIC [id number] 04:43:00 Test Item Value Reference Range Interpretation [...] S NOT APPLICABLE FOR DIALYSIS PATIEN TS. Drum Sander Offbearer ID - NELLY WCBC with platelet count + automated [id number] 04:32:00 Test Item Value Reference Range Interpretation [...] 450 K/CU MM MPV (test code = 93386-5) 11.2 fL 9.4-12.4 nRBC (test code = [...] 2801) Lab Interpretation (test code = Abnormal 44116-0) [facility] W/PLT COUNT & AUTO [id number] 04:32:00 Test Item Value Reference Range Interpretation [...] PERCENT (BEAKER) (test code = 2801) POCT-GLUCOSE [id number] 22:36:00 Test Item Value Reference Range Interpretation Comments POC-GLUCOSE METER 118 mg/dL 70-110 H : TESTED A T [facility] [address] (BEAKER) (test code = EVA Marcum [facility], 1538) [address]: Drum Sander Offbearer/Techni vanita ID = [id number] for CA RPIO, RICARDO RAD, CHEST, 1 VIEW, NON [id number] 18:08:00Reason for exam:->Confirm pacemaker lead placementShould this [...] MDReport Verified Date/Time: 02/05/2020 18:08:29 Reading Location: [address] Transitional Reading Room XR chest 1 view portable / [id number] 18:08:00 Interface, External Ris In - 02/05/2020 [...] Vincent Verified Date/Time: 02/05/2020 18:08:29 Reading Location: [facility] C013T Transitional Reading [facility] [id number] 17:06:00 Test Item Value Reference Range Interpretation Comments POC-GLUCOSE METER 91 mg/dL 70-110 : TESTED A T [facility] [address] (BEAKER) (test code = EVA [place], 1538) [address]: Drum Sander Offbearer/Techni vanita ID = [id number] for JADYN DOMÍNGUEZ ECG 12 [id number] 13:06:41Interface, External Ris In - 02/05/2020 1:06 PM CDTVentricular Rate 64 BPMAtrial Rate 64 BPMP-R Interval 152 msQRS Duration 106 msQ-T Interval 380 msQTC Calculation(Bazett) 392 msP [place] 51 degreesR [place] 57 degreesT [place] -21 degreesNormal sinus rhythmIncomplete left bundle branch blockNonspecific ST and T wave abnormalityAbnormal ECGNo previous ECGs availableConfirmed by MD JHON, LAUREN ([id number]) on 02/05/2020 1:06:39 [facility], [id number] 11:49:00 Test Item Value Reference Range Interpretation [...] % Lab Interpretation (test code = Abnormal 17359-2) [facility] Center[facility], [id number] 11:49:00 Test Item Value Reference Range Interpretation [...] (test code = 1819) 21.0 % Hemoglobin [id number] 10:59:00 Test Item Value Reference Range Interpretation Comments Hemoglobin A1C (test code = 4548-4) 8.3 % 4.3-6.1 H Lab Interpretation (test code = Abnormal 60328-2) [facility] CenterHEMOGLOBIN [id number] 10:59:00 Test Item Value Reference Range Interpretation Comments HEMOGLOBIN A1C (BEAKER) (test code = 8.3 % 4.3-6.1 H 368) ABORH, [id number] 09:54:00 Test Item Value Reference Range Interpretation Comments ABO Grouping (test code = 2588) AB Rh Factor (test code = 2589) POS [facility] CenterType and screen, [id number] 09:35:00 Test Item Value Reference Range Interpretation Comments ABO/RH AUTOMATED (BEAKER) (test AB POSITIVE code = 2260) Ab Scrn (test code = 890-4) NEGATIVE [facility] CenterRAD, CHEST, 1 VIEW, NON [id number] 07:14:00 Reason for exam:->hypoxiaShould this be performed [...] 40-70 H HCO3, Cuco (test code = 32806-3) 30 mmol/L 21-29 H Base Excess, Cuco (test code = 4.3 mmol/L -2-3 H 1927-3) Patient Temperature (test code = 37.0 C 8310-5) FIO2 (test code = 1819) 21 % Lab Interpretation (test code = Abnormal 80854-2) [facility] CenterBL[facility]OD GAS, [id number] 02:00:00 Test Item Value Reference Range Interpretation [...] (test code = 1819) 21.0 % Lipid [id number] 01:56:00 Test Item Value Reference Range Interpretation Comments Triglycerides (test 119 mg/dL code = 2571-8) Cholesterol (test code 192 mg/dL = 2093-3) HDL (test code = 34 mg/dL 5-9) LDL Calculated (test 134 mg/dL code = 06907-0) YOMI (test code = YOMI) Triglyceride Reference Range: Low Risk <150 Borderline 150-199 High Risk 200-499 Very High Risk >=500 Cholesterol Reference Range: Low Risk <200 Borderline 200-239 High Risk >240 HDL Cholesterol Reference Range: Low Risk >=60 High Risk <40 LDL Cholesterol Reference Range: Optimal <100 Near Optimal 100-129 Borderline 130-159 High 160-189 Very High >=190 Drum Sander Offbearer ID - NELLY Gertrude [facility] CenterMAGNESIUM2020-08-04 01:56:00 Test Item Value Reference Range Interpretation Comments MAGNESIUM (BEAKER) (test code = 1.8 mg/dL 1.6-2.6 627) Drum Sander Offbearer ID - NELLY WBASIC METABOLIC [id number] 01:56:00 Test Item Value Reference Range Interpretation [...] S NOT APPLICABLE FOR DIALYSIS PATIEN TS. Drum Sander Offbearer ID - NELLY WLIPID [id number] 01:56:00 Test Item Value Reference Range Interpretation [...] Borderline 130-159 High 160-189 Very High >=190 Drum Sander Offbearer ID - DONNAWCBC W/PLT COUNT & AUTO [id number] 01:42:00 Test Item Value Reference Range Interpretation [...] PERCENT (BEAKER) (test code = 2801) SARS-CoV2/RT-PCR ([facility] & Ref Labs)2020-02-04 10:32:00 Test Item Value Reference Range Interpretation Comments SARS-COV2/RT-PCR Negative Not Detected, (test code = Negative, See 27292-9) external report for linked test SARS-COV-2 [facility] KYLIE PERFORMING LAB (test code = 56134-7) YOMI (test code = Negative result for [...] of the Act. Fact Sheet for Healthcare Providers:https://www.Knotice/sites/default/f angelina/product/documents/F act_Sheet_HC_Providers_L prj_UMXV-GeK-8.pdf Fact Sheet for Healthcare Patients:https://www.[employer]/sites/default/fi les/product/documents/Fa ct_Sheet_Patients_Lyra_S ARS-CoV-2.pdf Performing Laboratory:[facility]ARS-COV2/RT-PCR ([facility] REF LABS)2020-02-04 10:32:00 Test Item Value Reference Range Interpretation Comments SARS-COV2/RT-PCR (test Negative Not Detected, Negative, code = 6551149) See external report for linked test SARS-COV-2 PERFORMING LAB [facility] KYLIE (test code = 8283647) Negative result for this test determines that [...] 564(g) of the Act.Fact Sheet for Healthcare Providers:https://www.Eyeonaidel.PeekYou/sites/default/files/product/documents/Fact_Shee z_MM_Cojitbecf_Vkxm_RYZL-MzM-8.pdfFact Sheet for Healthcare Patients:https://www.[employer].com/sites/default/files/product/ documents/Nrox_Lfmif_Wmxyqngc_Mskr_ANEP-KsW-7.pdfPerforming Laboratory:[facility] [place] [address]
--- OUTSIDE RECORDS SUMMARY | 2020-06-12 15:12 | XMS REPORT | Clinical Summary ---
:1965 Author Organization [facility] Address [address] [place] [address] Care Team Providers Name Role Phone Pcp [...] Internal Medicine 02/04/2020 - Hospital Encounter Dulce Wlide Sick sinus syndrome due to SA node dysfunction (HCC); 02/06/2020 MD Marta Syncope due to sick sinus syndrome (HCC) ; Timoteo Shiplye BRIDGET (obstruc tive sleep apnea); MD Ely Morbid obesity (HCC); Hypoxia; Chronic bronchi tis, unspecified chronic bronchitis type (HCC); Type 2 diabetes mellitus without complication, without long-term current use of insulin (HCC); Homeless 02/04/2020 Travel 02/04/2020 Documentation Internal Medicine Ortega, Oriana Reilly MD 02/03/2020 Lab Requisition Lab after 06/12/2019 Social History Tobacco Use Types Packs/Day Years [...] Completed 04/20/2019, 2013 Implants Implanted Type Area Head Of Acquisitions Device Identifier Shelf Model / Expiration Serial / Date Lot Lead Pacemkr Cecily B[place] 52x1 [id number] - [id number] PACEMAKER/I [employer]:CARD [id number] 09/27/2021 [id number] / Implanted: Qty: 1 on 02/05/2020 by Prem Herron MD at [facility] CD CHAMBER RHY:DISEASE MGT [id number] / DEVICE Description:Ventricular Lead Lead Pacemkr Cecily Tovar 45x1 [id number] - [id number] PACEMAKER/IC D [employer]:CARD [id number] 08/28/2021 [id number] / Implanted: Qty: 1 on 02/05/2020 by Prem Herron MD at [facility] CHAMBER DEVICE RHY:DISEASE MGT [id number] / Description:Atrial Lead Pacemkr Brandee Xtdr Mri Ipg [id number] - [id number] PACEMAKER/ICD [employer]:CARD [id number] 05/31/2021 [id number] / Implanted: Qty: 1 on 02/05/2020 by Prem Herron MD at [facility] CHAMBER DEVICE RHY:PACING SYS [id number] / Description:Chest Procedures Procedure Name Priority Date/Time [...] 380 ms QTC Calculation(Bazett) 392 ms P [place] 51 degrees R [place] 57 degrees T [place] -21 degrees Normal sinus rhythm Incomplete left [...] i n the results section . 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 636 Number Date of 1965 Justin Mockcherrifantasma Physicia n Age 54 year(s) Sonograp her Rubens Jurado, NB, RDCS,RVT,RDMS Syrup Mixer Helper Anthony Lezama MD RDCS Physicia n Procedure [...] TR Gradient: 23.87 mmHg Performing Organization Address City/[facility] Cent[facility] Phone Number [facility] MK[facility] CPACS POC-Glucose meter (02/06/2020 7:12 AM CDT)Only the most recent of3 results within the time period is included. POC-Glucose Meter 131 (H)Comment: 70 - 110 mg/dL [facility] : TESTED AT [address], [address]: Fur Puller/Technic oswaldo ID = [id number] for KENDRICK HAN Specimen Blood Performing Organization Address [facility] Centercode Phone Number [place] [phone] CENTER CBC with platelet count + automated diff (02/06/2020 4:03 AM CDT)Only the most recent of2 resultswithin the time period is included. Pathologist Sig nature WBC 8.1 3.5 - 10.5 [facility] K/L [facility] RBC 5.09 4.63 - 6.08 [facility] M/L [facility] Hemoglobin 13.5 (L) 13.7 - 17.5 [facility] GM/DL [facility] Hematocrit 45.1 40.1 - 51.0 % [facility] MCV 88.6 79.0 - 92.2 fL [facility] MCH 26.5 25.7 - 32.2 pg [facility] MCHC 29.9 (L) 32.3 - 36.5 [facility] GM/DL [facility] RDW 15.9 (H) 11.6 - 14.4 % [facility] Platelets 265 150 - 450 K[facility] MPV 11.2 9.4 - 12.4 fL [facility] nRBC 0 0 - 0 /100 WBC [facility] % Neutros 65 % [facility] % Lymphs 24 % [facility] % Monos 9 % [facility] % Eos 1 % [facility] % Baso 0 % [facility] # Neutros 5.27 1.78 - 5.38 [facility] # Lymphs 1.96 1.32 - 3.57 [facility] # Monos 0.69 0.30 - 0.82 [facility] # Eos 0.08 0.04 - 0.54 [facility] # Baso 0.03 0.01 - 0.08 [facility] Immature 0 0 - 1 % [facility] Specimen Blood Performing Organization Address City/State/Zipcode Phone Number [facility] [address] [place] [address] CENTER Magnesium (02/06/2020 4:02 AM CDT)Only the most recent of2 resultswithin the time period is included. Pathologist Sig nature Magnesium 1.9Comment: Specimen 1.6 - 2.6 mg/dL [facility] slightly hemolyzed [facility] Specimen Blood Narrative Performed At Fur Puller ID - NELLY Loredo [facility] Performing Organization Address [facility] Centercode Phone Number [facility] [address] [place] [address] CENTER Basic metabolic panel (02/06/2020 4:02 AM CDT)Only the most recent of2 results within the time period is included. Sodium 137 136 - 145 meq/L [facility] Potassium 4.4Comment: Specimen 3.5 - 5.1 meq/L [facility] Chloride 101 98 - 107 meq/L [facility] CO2 28 22 - 29 meq/L [facility] BUN 13 7 - 21 mg/dL [facility] Creatinine 0.73Comment: 0.57 - 1.25 [facility] Specimen slightly mg/dL [facility] hemolyzed [place] Glucose 124 (H) 70 - 105 mg/dL [facility] Calcium 8.2 (L) 8.4 - 10.2 [facility] mg/dL [facility] EGFR 112Comment: mL/min/1.73 sq [facility] ESTIMATED GFR IS NOT [facility] ACCURATE [place] CREATININE CLEARANCE IN PREDICTING GLOMERULAR FILTRATION RATE. ESTIMATED GFR IS NOT APPLICABLE FOR DIALYSIS PATIENTS. Specimen Blood Narrative Performed At Fur Puller ID - NELLY Loredo [facility] Performing Organization Address [facility]/Zipcode Phone Number [facility] [address] [place] [address] CENTER XR chest 1 view [...] Report Verified Date/Time: 02/05/2020 18:08:29 Reading Location: [address] Reading Room Procedure Note Interface, External [...] Verified Date/Time: 02/05/2020 1 8:08:29 Reading Location: [facility] [address] [place] [address] Reading Room Performing Organization Address City/State/Zipcode Phone Number [facility] Blood gas, arterial (02/05/2020 11:36 AM CDT) Pathologist Sig nature pH, Arterial 7.42 7.35 - 7.45 [facility] pCO2, Arterial 48 (H) 35 - 45 mmHg [facility] pO2, Arterial 70 (L) 80 - 90 mmHg [facility] O2 Sat, Arterial 94.8 (L) 96.0 - 97.0 % [facility] HCO3, Arterial 31 (H) 21 - 29 mmol/L [facility] Base Excess, Arterial 5.3 (H) -2.0 - 3.0 [facility] mmol/L [facility] Patient Temperature 36.3 C [facility] FIO2 21.0 % [facility] Specimen Blood, Arterial Performing Organization Address [facility] Centerconj Phone Number [address] [address] CENTER ABORH, manual (02/05/2020 8:59 AM CDT) Pathologist Sig nature ABO Grouping AB [facility] Rh Factor POS [facility] Specimen Blood Performing Organization Address [facility] Centerconj Phone Number [address] [address] Type and screen, automated (02/05/2020 8:30 AM CDT) Pathologist Sig nature ABO/RH AUTOMATED AB POSITIVE [facility] Ab Scrn NEGATIVE [facility] Specimen Blood Performing Organization Address [facility] Phone Number [address] [address] ECG 12 lead (02/05/2020 6:40 AM CDT) Specimen Narrative Performed At Ventricular Rate 64 BPM GE MUSE Atrial Rate 64 BPM P-R Interval 152 ms QRS Duration 106 ms Q-T Interval 380 ms QTC Calculation(Bazett) 392 ms P [place] 51 degrees R [place] 57 degrees T [place] -21 degrees Normal sinus rhythm Incomplete left [...] 380 ms QTC Calculation(Bazett) 392 ms P [place] 51 degrees R [place] 57 degrees T [place] -21 degrees Normal sinus rhythm Incomplete left bundle branch block Nonspecific ST and T wave abnormality Abnormal ECG No previous ECGs available Confirmed by MD JHON, BLANQUITA ([id number]) on 02/05/2020 1:06:39 PM Performing Organization Address City/[facility] Centercode Phone Number MUSE Hemoglobin A1c (02/05/2020 1:23 AM CDT) Pathologist Sig nature Hemoglobin A1C 8.3 (H) 4.3 - 6.1 % [facility] Specimen Blood Performing Organization Address [facility]conj Phone Number [address] [address] [place] Blood gas, venous (02/05/2020 1:23 AM CDT) Pathologist Sig nature pH, Cuco 7.39 7.32 - 7.42 [facility] pCO2, Cuco 52 (H) 41 - 51 mmHg [facility] pO2, Cuco 147 (H) 25 - 40 mmHg [facility] O2 Sat, Cuco 98.8 (H) 40.0 - 70.0 % [facility] HCO3, Cuco 30 (H) 21 - 29 mmol/L [facility] Base Excess, Cuco 4.3 (H) -2.0 - 3.0 [facility] mmol/L [facility] Patient Temperature 37.0 C [facility] FIO2 21.0 % [facility] Specimen Blood Performing Organization Address [facility]con[facility] Phone Number [facility] [address] [place] [address] [place] Lipid panel (02/05/2020 1:22 AM CDT) Pathologist Sig nature Triglycerides 119 mg/dL [facility] [place] Cholesterol 192 mg/dL [facility] [place] HDL 34 mg/dL [facility] LDL Calculated 134 mg/dL [facility] Specimen Blood Narrative Performed At Triglyceride Reference Range: [facility] Low Risk <150 Borderline 150-199 High Risk 200-499 Very High Risk >=500 Cholesterol Reference Range: Low Risk <200 Borderline 200-239 High Risk >240 HDL Cholesterol Reference Range: Low Risk >=60 High Risk <40 LDL Cholesterol Reference Range: Optimal <100 Near Optimal 100-129 Borderline 130-159 High 160-189 Very High >=190 Fur Puller ID - NELLY W Performing Organization Address City/State/Zipcode Phone Number [facility] [address] [place] [address] CENTER SARS-CoV2/RT-PCR ([facility] Ref Labs) (02/03/2020 8:16 PM CDT) SARS-COV2/RT-PCR Negative Not Detected, [facility] Negative, See [facility] external report CENTER for linked test SARS-COV-2 [facility] KYLIE [facility] PERFORMING LAB [facility] Specimen Other - Nasopharyngeal wall structure (b yinka structure) Narrative Performed At Negative result for this test determines that [facility] SARS-CoV-2 RNA was not present in [...] the Act. Fact Sheet for Healthcare Providers: https://www.GeeYee/sites/default/files/pro duct/documents/Fact_Sheet_HC_Providers_Lyra_SA RS-CoV-2.pdf Fact Sheet for Healthcare Patients: https://www.GeeYee/sites/default/files/pro duct/documents/Fact_Sheet_Patients_Lyra_SARS-C oV-2.pdf Performing Laboratory: [place] [address] Performing Organization Address City/State/[place] [address] CENTER after 06/12/2019 Advance Directives For more information, please contact: [phone] Code Status Date Activated Date Inactivated Comments Full Code 02/04/2020 11:59 PM 02/06/2020 5:54 PM This code status was determined by: Patient
--- NOTE | 2020-06-12 17:39 | RAD REPORT ---
EXAM DESCRIPTION: CT - Head Brain Wo Cont - 06/12/2020 5:26 pm CLINICAL HISTORY: CONFUSED Headache, drowsiness COMPARISON: Head Brain Wo Cont dated 12/01/2019; Head Brain Wo Cont dated 04/28/2019 TECHNIQUE: All CT scans are performed using dose optimization technique as appropriate and may inclu de automated exposure control or mA/KV adjustment according to patient size. FINDINGS: No intracranial hemorrhage, hydrocephalus or extra-axial fluid collection.No areas of brai n edema or evidence of midline shift. Mild mucosal thickening of the left maxillary antrum is seen. There is a right mastoid effusion noted . The calvarium is intact. IMPRESSION: No acute intracranial abnormality. Right mastoid effusion.
--- NOTE | 2020-06-12 17:50 | RAD REPORT ---
EXAM DESCRIPTION: RAD - Chest Single View - 06/12/2020 5:45 pm CLINICAL HISTORY: AMS Chest pain. COMPARISON: Chest Single View dated 06/06/2020; Chest Single View dated 05/05/2020; Chest Single View dated 03/07/2020; Chest Single View dated 03/02/2020 FINDINGS: Portable technique limits examination quality. The lungs are grossly clear. The heart is upper limit of normal in size. No displaced fractures.Dual lead pacer device noted. IMPRESSION: No acute intrathoracic process suspected.
[2020-06-12 18:09] LABS: ALT/SGPT 100 U/L (12-78); AST/SGOT 48 U/L (15-37); Albumin 3.4 g/dL (3.4-5.0); Alkaline Phosphatase 37 U/L (45-117); BUN Blood Urea Nitrogen 28 mg/dL (7-18); Bicarbonate 29 mmol/L (21-32); Bilirubin Direct < 0.1 mg/dL (0-0.2); Bilirubin Total 0.2 mg/dL (0.2-1.0); Glucose Level 125 mg/dL (74-106); Magnesium 2.4 mg/dL (1.8-2.4); Protein, Total 6.9 g/dL (6.4-8.2); Sodium Level 142 mmol/L (136-145); Troponin (Emerg Dept Use Only) < 0.02 ng/mL (0.0-0.045)
[2020-06-12 18:16] LABS: Basophils % 0.5 % (0-1.3); Hematocrit 40.9 % (39.6-49.0); Lymphocytes % 26.6 % (15.3-44.8); MPV 9.3 fL (7.6-11.3); RBC Red Blood Cell Count 4.99 M/uL (4.33-5.43)
--- NOTE | 2020-06-12 18:34 | EDPHYS ---
Physician Documentation [facility] Name: Juan Miguel Langston Age: 54 yrs Sex: Male : 1965 Arrival Date: 06/12/2020 Time: 14:45 Bed 5 Private MD: ED Physician Rashard Bardales HPI: 06/12 17:19 This 54 yrs old Male presents to ER via Wheelchair with complaints of kdr Confusion. 17:19 The patient presents with confusion, Altered speech. Onset: The symptoms/episode kdr began/occurred gradually, yesterday. Possible causes: unknown. Associated signs and symptoms: Pertinent positives: confusion, vomiting, weakness. Current symptoms: In the emergency department the patient's symptoms are unchanged from the initial presentation. Patient's baseline: Neuro: alert and fully oriented, Motor: no deficits, Ambulation: walks without assistance, Speech: normal for age, slow. The patient has experienced similar episodes in the past, multiple times. The patient has been recently seen at the [facility] Emergency Department, yesterday, for similar complaints labs were performed, X-rays were performed. Historical: - Allergies: 15:00 Azithromycin; aa5 15:00 Beta-Blockers (Beta-Adrenergic Bloc; aa5 15:00 Demerol; aa5 15:00 Metoprolol Tartrate; aa5 - Home Meds: 15:00 aspirin 325 mg Oral tab [Active]; clopidogrel 75 mg Oral tab 1 tab once daily [Active]; aa5 Eliquis 5 mg Oral tab 1 tab 2 times per day [Active]; isosorbide dinitrate 30 mg Oral tab daily [Active]; Lasix 40 mg Oral tab once daily [Active]; lisinopril 40 mg Oral tab once daily [Active]; Livalo 4 mg Oral tab 1 tab nightly [Active]; metformin er 500 mg BID [Active]; nitroglycerin 0.4 mg SL subl 1 tab every 5 minutes [Active]; Norvasc 10 mg Oral tab 1 tab once daily [Active]; Phenergan 25 mg Q6H prn n/v Oral [Active]; ProAir HFA 90 mcg/actuation inhalation HFAA 2 puffs every 6 hours [Active]; tramadol 50 mg Oral tab 1 tab every 6 hours for Pain [Active]; - PMHx: 15:00 Angina; COPD; Diabetes - NIDDM; High Cholesterol; Hypertension; Myocardial infarction; aa5 Sleep Apnea; - PSHx: 15:00 pacemaker; aa5 - Immunization history:: Adult Immunizations unknown. - Social history:: Smoking status: Patient reports the use of cigarette tobacco products, smokes one pack cigarettes per day. ROS: 17:19 Constitutional: Negative for fever, chills, and weight loss, Eyes: Negative for injury, kdr pain, redness, and discharge, Neck: Negative for injury, pain, and swelling, Cardiovascular: Negative for chest pain, palpitations, and edema, Respiratory: Negative for shortness of breath, cough, wheezing, and pleuritic chest pain, Abdomen/GI: Negative for abdominal pain, nausea, vomiting, diarrhea, and constipation, Back: Negative for injury and pain, : Negative for injury, bleeding, discharge, and swelling, MS/Extremity: Negative for injury and deformity, Skin: Negative for injury, rash, and discoloration, Psych: Negative for depression, anxiety, suicide ideation, homicidal ideation, and hallucinations, Allergy/Immunology: Negative for hives, rash, and allergies, Endocrine: Negative for neck swelling, polydipsia, polyuria, polyphagia, and marked weight changes, Hematologic/Lymphatic: Negative for swollen nodes, abnormal bleeding, and unusual bruising. 17:19 Neuro: Positive for altered mental status, speech changes, syncope, weakness. Exam: 17:18 ECG was reviewed by the Attending Physician. kdr 17:19 Constitutional: This is a well developed, well nourished patient who is awake, alert, kdr and in no acute distress. Head/Face: Normocephalic, atraumatic. Eyes: Pupils equal round and reactive to light, extra-ocular motions intact. Lids and lashes normal. Conjunctiva and sclera are non-icteric and not injected. Cornea within normal limits. Periorbital areas with no swelling, redness, or edema. Neck: Trachea midline, no thyromegaly or masses palpated, and no cervical lymphadenopathy. Supple, full range of motion without nuchal rigidity, or vertebral point tenderness. No Meningismus. Chest/axilla: Normal chest wall appearance and motion. Nontender with no deformity. No lesions are appreciated. Cardiovascular: Regular rate and rhythm with a normal S1 and S2. No gallops, murmurs, or rubs. Normal PMI, no JVD. No pulse deficits. Respiratory: Lungs have equal breath sounds bilaterally, clear to auscultation and percussion. No rales, rhonchi or wheezes noted. No increased work of breathing, no retractions or nasal flaring. Abdomen/GI: Soft, non-tender, with normal bowel sounds. No distension or tympany. No guarding or rebound. No evidence of tenderness throughout. Back: No spinal tenderness. No costovertebral tenderness. Full range of motion. Skin: Warm, dry with normal turgor. Normal color with no rashes, no lesions, and no evidence of cellulitis. MS/ Extremity: Pulses equal, no cyanosis. Neurovascular intact. Full, normal range of motion. Neuro: Awake and alert, GCS 15, oriented to person, place, time, and situation. Cranial nerves II-XII grossly intact. Motor strength 5/5 in all extremities. Sensory grossly intact. Cerebellar exam normal. Normal gait. Vital Signs: 14:55 BP 111 / 58; Pulse 105; Resp 20 S; Temp 99.0(O); Pulse Ox 97% on R/A; Weight 119.75 kg aa5 (R); Height 5 ft. 6 in. (167.64 cm) (R); Pain 0/10; 17:02 BP 107 / 54; Pulse 85; Resp 18; Temp 98.4(O); Pulse Ox 96% on R/A; Pain 0/10; vg1 18:10 BP 106 / 60; Pulse 78; Resp 16; Pulse Ox 93% on R/A; vg1 14:55 Body Mass Index 42.61 (119.75 kg, 167.64 cm) aa5 MDM: 17:19 Data reviewed: vital signs, nurses notes, lab test result(s), EKG. kdr 18:34 Patient medically screened. [facility] 06/12 16:56 Order name: Basic Metabolic Panel; Complete Time: 18:15 [facility] 12 16:56 Order name: CBC with Diff; Complete Time: 18:23 [facility] 06/12 16:56 Order name: LFT's; Complete Time: 18:15 kdr 06/12 16:56 Order name: Magnesium; Complete Time: 18:15 [facility] 06/12 16:56 Order name: Troponin (emerg Dept Use Only); Complete Time: 18:15 kdr 06/12 16:56 Order name: XRAY Chest (1 view); Complete Time: 18:15 [facility] 12 16:56 Order name: EKG; Complete Time: 16:57 [facility] 12 16:56 Order name: Cardiac monitoring; Complete Time: 17:18 [facility] 12 16:56 Order name: EKG - Nurse/Tech; Complete Time: 17:18 [facility] 06/12 16:56 Order name: IV Saline Lock; Complete Time: 17:45 [facility] 06/12 16:59 Order name: CT Head Brain wo Cont; Complete Time: 18:15 [facility] 06/12 16:59 Order name: ETOH Level; Complete Time: 18:23 [facility] 06/12 16:59 Order name: AMMONIA; Complete Time: 18:15 [facility] 06/12 16:56 Order name: Labs collected and sent; Complete Time: 17:45 [facility] 12 16:56 Order name: O2 Per Protocol; Complete Time: 17:45 [facility] 06/12 16:56 Order name: O2 Sat Monitoring; Complete Time: 17:45 [facility] EC:18 Rate is 83 beats/min. Rhythm is regular, Sinus Rhythm with No ectopy. QRS [place] is kdr Normal. IN interval is normal. QRS interval is normal. QT interval is normal. Clinical impression: NSR w/ Non-specific ST/T Changes. Administered Medications: No medications were administered Disposition: 06/12/20 18:34 Discharged to Home. Impression: Confusion. - Condition is Stable. - Discharge Instructions: Confusion, Narcolepsy. - Medication Reconciliation Form, Thank You Letter form. - Follow up: Private Physician; When: 2 - 3 days; Reason: If symptoms return, Further diagnostic work-up, Recheck today's complaints, Continuance of care, Re-evaluation by your physician. - Problem is an ongoing problem. - Symptoms have improved. Signatures: Dispatcher [employer] EDMS Rashard Bardales MD MD kdr Calderon, Audri RN RN Florecita Willis RN RN vg1 Corrections: (The following items were deleted from the chart) 18:51 18:34 06/12/2020 18:34 Discharged to Home. Impression: Confusion. Condition is Stable. vg1 Forms are Medication Reconciliation Form, Thank You Letter, Antibiotic Education, Prescription Opioid Use. Follow up: Private Physician; When: 2 - 3 days; Reason: If symptoms return, Further diagnostic work-up, Recheck today's complaints, Continuance of care, Re-evaluation by your physician. Problem is an ongoing problem. Symptoms have improved. kdr
--- NOTE | 2020-06-12 18:34 | ER ---
Nurse's Notes [facility] Name: Juan Miguel Langston Age: 54 yrs Sex: Male : 1965 Arrival Date: 06/12/2020 Time: 14:45 Bed 5 Private MD: Diagnosis: Confusion Presentation: 06/12 14:55 Chief complaint: Patient states: "I was seen here yesterday for low blood pressure and aa5 the nurse made my arm swell up with the IV (infiltration) and I haven't felt right since then". Pt states "I feel confused". Pt is A\\T\\O x 4 in triage. Reports chronic cough and reports negative COVID-19 test recently. 14:55 Acuity: DESTINY 3 aa5 14:55 Coronavirus screen: Client denies travel out of the [place] in the last 14 days. At this aa5 time, the client does not indicate any symptoms associated with coronavirus-19. Ebola Screen: Patient negative for fever greater than or equal to 101.5 degrees Fahrenheit, and additional compatible Ebola Virus Disease symptoms. Initial Sepsis Screen: Does the patient meet any 2 criteria? HR > 90 bpm. Does the patient have a suspected source of infection? No. Patient's initial sepsis screen is negative. Risk Assessment: Do you want to hurt yourself or someone else? Patient reports no desire to harm self or others. Onset of symptoms was June 12, 2020. 14:55 Method Of Arrival: Wheelchair aa5 Historical: - Allergies: 15:00 Azithromycin; aa5 15:00 Beta-Blockers (Beta-Adrenergic Bloc; aa5 15:00 Demerol; aa5 15:00 Metoprolol Tartrate; aa5 - Home Meds: 15:00 aspirin 325 mg Oral tab [Active]; clopidogrel 75 mg Oral tab 1 tab once daily [Active]; aa5 Eliquis 5 mg Oral tab 1 tab 2 times per day [Active]; isosorbide dinitrate 30 mg Oral tab daily [Active]; Lasix 40 mg Oral tab once daily [Active]; lisinopril 40 mg Oral tab once daily [Active]; Livalo 4 mg Oral tab 1 tab nightly [Active]; metformin er 500 mg BID [Active]; nitroglycerin 0.4 mg SL subl 1 tab every 5 minutes [Active]; Norvasc 10 mg Oral tab 1 tab once daily [Active]; Phenergan 25 mg Q6H prn n/v Oral [Active]; ProAir HFA 90 mcg/actuation inhalation HFAA 2 puffs every 6 hours [Active]; tramadol 50 mg Oral tab 1 tab every 6 hours for Pain [Active]; - PMHx: 15:00 Angina; COPD; Diabetes - NIDDM; High Cholesterol; Hypertension; Myocardial infarction; aa5 Sleep Apnea; - PSHx: 15:00 pacemaker; aa5 - Immunization history:: Adult Immunizations unknown. - Social history:: Smoking status: Patient reports the use of cigarette tobacco products, smokes one pack cigarettes per day. Screenin:47 Abuse screen: Denies threats or abuse. Nutritional screening: No deficits noted. vg1 16:47 Tuberculosis screening: No symptoms or risk factors identified. Fall Risk No fall in vg1 past 12 months (0 pts). No secondary diagnosis (0 pts). IV access (20 points). Ambulatory Aid- None/Bed Rest/Nurse Assist (0 pts). Gait- Normal/Bed Rest/Wheelchair (0 pts) Mental Status- Oriented to own ability (0 pts). Total Monaco Fall Scale indicates No Risk (0-24 pts). Assessment: 16:47 General: Appears in no apparent distress. Behavior is calm, cooperative, Reports last vg1 night for 'a brief moment' didn't know where he was at. 16:47 Pain: Denies pain. Neuro: Level of Consciousness is awake, alert, obeys commands, vg1 Oriented to person, place, time. Cardiovascular: Capillary refill < 3 seconds in bilateral fingers Patient's skin is warm and dry. Respiratory: Airway is patent Respiratory effort is even, unlabored, Respiratory pattern is regular, symmetrical. GI: No signs and/or symptoms were reported involving the gastrointestinal system. : No signs and/or symptoms were reported regarding the genitourinary system. EENT: No signs and/or symptoms were reported regarding the EENT system. Derm: Skin is pink, warm \\T\\ dry. Musculoskeletal: Range of motion: intact in all extremities. 18:10 Reassessment: Patient appears in no apparent distress at this time. Patient and/or vg1 family updated on plan of care and expected duration. Pain level reassessed. Patient is alert, oriented x 3, equal unlabored respirations, skin warm/dry/pink. Vital Signs: 14:55 BP 111 / 58; Pulse 105; Resp 20 S; Temp 99.0(O); Pulse Ox 97% on R/A; Weight 119.75 kg aa5 (R); Height 5 ft. 6 in. (167.64 cm) (R); Pain 0/10; 17:02 BP 107 / 54; Pulse 85; Resp 18; Temp 98.4(O); Pulse Ox 96% on R/A; Pain 0/10; vg1 18:10 BP 106 / 60; Pulse 78; Resp 16; Pulse Ox 93% on R/A; vg1 14:55 Body Mass Index 42.61 (119.75 kg, 167.64 cm) aa5 ED Course: 14:45 Patient arrived in ED. rg4 14:56 Arm band placed on. aa5 15:01 Triage completed. aa5 16:34 Rashard Bardales MD is Attending Physician. kdr 16:43 Florecita Childers RN is Primary Nurse. sv 16:50 Patient has correct armband on for positive identification. Bed in low position. Call vg1 light in reach. Side rails up X 1. monitoring engineer on. Pulse ox on. NIBP on. 16:50 Door closed. vg1 17:26 CT Head Brain wo Cont In Process Unspecified. EDMS 17:38 Initial lab(s) drawn, by wy, sent to lab. Inserted saline lock: 20 gauge in left dh3 antecubital area, using aseptic technique. Blood collected. 17:45 XRAY Chest (1 view) In Process Unspecified. EDMS 18:49 No provider procedures requiring assistance completed. IV discontinued, intact, vg1 bleeding controlled, No redness/swelling at site. Pressure dressing applied. Administered Medications: No medications were administered Outcome: 18:34 Discharge ordered by . kdr 18:50 Discharged to home ambulatory. vg1 18:50 Condition: stable 18:50 Discharge instructions given to patient, family, Instructed on discharge instructions, follow up and referral plans. Demonstrated understanding of instructions, follow-up care. 18:51 Patient left the ED. vg1 Signatures: Dispatcher [employer] EDMS Nilda Olea RN RN Rashard Bardales MD MD [facility] Julia Posada RN RN aa5 Kathya Childers rg4 Maria Del Carmen Castillo 3 Florecita Childers RN RN vg1 Corrections: (The following items were deleted from the chart) 15:01 14:55 Chief complaint: Patient states: "I was seen here yesterday for low blood aa5 pressure and the nurse made my arm swell up with the IV (infiltration) and I haven't felt right since then". Pt states "I feel confused". Pt is A\\T\\O x 4 in triage. aa5
[2020-06-17 20:35] VITALS: TEMP 98.4
[2020-06-17 20:36] VITALS: BP 106/60; O2SAT 93
== END 2020-06-12 18:51 | disposition home or self-care (01) ==
LOC: ER 14:42
DX: R41.0 Disorientation, unspecified (principal); I10 Essential (primary) hypertension; E11.9 Type 2 diabetes mellitus without complications; E78.00 Pure hypercholesterolemia, unspecified; J44.9 Chronic obstructive pulmonary disease, unspecified; F17.210 Nicotine dependence, cigarettes, uncomplicated; Z79.01 Long term (current) use of anticoagulants; Z79.82 Long term (current) use of aspirin; Z88.1 Allergy status to other antibiotic agents; Z88.5 Allergy status to narcotic agent; Z88.8 Allergy status to other drugs, medicaments and biological substances; Z95.0 Presence of cardiac pacemaker
CPT/HCPCS: 36415; 70450; 71045; 80048; 80076; 80320; 82140; 83735; 84484; 85025; 93005; 99284

== ENCOUNTER 2020-06-13 14:32 | Inpatient (IN) | payer OTHER ==
--- OUTSIDE RECORDS SUMMARY | 2020-06-13 14:36 | XMS REPORT | Clinical Summary ---
:1965 Author Organization [facility] Address [address] [place] [address] Care Team Providers Name Role Phone Pcp [...] due to sick sinus syndrome (HCC) ; Timotoe Shipley BRIDGET (obstruc tive sleep apnea); MD Ely Morbid obesity (HCC); Hypoxia; Chronic bronchi tis, unspecified chronic bronchitis type (HCC); Type 2 diabetes mellitus without complication, without long-term current use of insulin (HCC); Homeless 02/04/2020 Travel 02/04/2020 Documentation Internal Medicine Ortega, Oriana Reilly MD 02/03/2020 Lab Requisition Lab after 06/13/2019 Social History Tobacco Use Types Packs/Day Years [...] Completed 04/20/2019, 2013 Implants Implanted Type Area Public Weigher Device Identifier Shelf Model / Expiration Serial / Date Lot Lead Pacemkr Cecily [place] 52x1 [id number] - [id number] PACEMAKER/I [employer]:CARD [id number] 09/27/2021 [id number] / Implanted: Qty: 1 on 02/05/2020 by Prem Herron MD at [facility] CD CHAMBER RHY:DISEASE MGT [id number] / DEVICE Description:Ventricular Lead Lead Pacemkr Cecily Tovar 45x1 [id number] - [id number] PACEMAKER/IC D [employer]:CARD [id number] 08/28/2021 [id number] / Implanted: Qty: 1 on 02/05/2020 by Prem Herron MD at [facility] CHAMBER DEVICE RHY:DISEASE MGT [id number] / Description:Atrial Lead Pacemkr Brandee Xtdr Mri Ipg [id number] - [id number] PACEMAKER/ICD [employer]:CARD [id number] 05/31/2021 [id number] / Implanted: Qty: 1 on 02/05/2020 by Prem Herron MD at [facility] CHAMBER DEVICE RHY:PACING SYS [id number] / Description:Chest Procedures Procedure Name Priority Date/Time [...] SCAN PM CDT 2D ECHO W/ DOPPLER KELRINE 02/06/2020 10:08 Resul ts for this (CW/PW/COLOR) [...] 380 ms QTC Calculation(Bazett) 392 ms P Sidney 51 degrees R Sidney 57 degrees T Sidney -21 degrees Normal sinus rhythm Incomplete left [...] i n the results section . after 06/13/2019 Results ARRYTHMIA IMPLANT REPORT - SCAN (02/20/2020 [...] AM CDT) Pathologist Sig nature Ejection Fraction [facility] Specimen Narrative Performed At Transthoracic Echocardiography Report (T TE) [facility]ART[facility] Demographics Patient Name JUAN MIGUEL VALLE Date of Study 02/06/2020 RU Gender Male Visit Number [id number] Race Unknown Room Number 636 Number Date of 1965 Referring Fredrick Forrest Physician Age 54 year(s) Data Analyst Lilia Kingston, RDCS,RVT,RDMS Web Portal Developer Linda Rodriguez, Interpreting Nilda Myles MD RDCS [...] Study 02/06/2020 RU Gender Male Visit Number [id number] Race Unknown Room Num [facility] 636 Number Date of 1965 Justin Mockcherrifantasma Physicia n Age 54 year(s) Sonograp her Rubens Jurado, NB, RDCS,RVT,RDMS Web Portal Developer Anthony Lezama MD RDCS Physicia n Procedure [...] TR Gradient: 23.87 mmHg Performing Organization Address City/[facility] Phone Number [facility] ECHO HEARTLAB MKCKESSON CPACS POC-Glucose meter (02/06/2020 7:12 AM CDT)Only the most recent of3 results within the time period is included. POC-Glucose Meter 131 (H)Comment: 70 - 110 mg/dL [facility] : TESTED AT [address], [address]: [employer]ilingual [employer] Teacher/Technic oswaldo ID = [id number] for KENDRICK HAN Specimen Blood Performing Organization Address [facility] Centercode Phone Number [place] [phone] CENTER CBC with platelet count + automated diff (02/06/2020 4:03 AM CDT)Only the most recent of2 resultswithin the time period is included. Pathologist Sig nature WBC 8.1 3.5 - 10.5 [facility] K/L [facility] RBC 5.09 4.63 - 6.08 [facility] M/L [facility] Hemoglobin 13.5 (L) 13.7 - 17.5 [facility] GM/DL [facility] Hematocrit 45.1 40.1 - 51.0 % [facility] MCV 88.6 79.0 - 92.2 fL [facility] MCH 26.5 25.7 - 32.2 pg [facility] MCHC 29.9 (L) 32.3 - 36.5 [facility] GM/DL [facility] RDW 15.9 (H) 11.6 - 14.4 % [facility] Platelets 265 150 - 450 K/CU [facility] MPV 11.2 9.4 - 12.4 fL [facility] nRBC 0 0 - 0 /100 WBC [facility] % Neutros 65 % [facility] % Lymphs 24 % [facility] % Monos 9 % [facility] % Eos 1 % [facility] % Baso 0 % [facility] # Neutros 5.27 1.78 - 5.38 [facility] # Lymphs 1.96 1.32 - 3.57 [facility] # Monos 0.69 0.30 - 0.82 [facility] # Eos 0.08 0.04 - 0.54 [facility] # Baso 0.03 0.01 - 0.08 [facility] Immature 0 0 - 1 % [facility] Specimen Blood Performing Organization Address City/State/Zipcode Phone Number [facility] [address] [place] [address] CENTER Magnesium (02/06/2020 4:02 AM CDT)Only the most recent of2 resultswithin the time period is included. Pathologist Sig nature Magnesium 1.9Comment: Specimen 1.6 - 2.6 mg/dL [facility] slightly hemolyzed [facility] Specimen Blood Narrative Performed At [employer] Teacher ID - NELLY Loredo [facility] Performing Organization Address [facility] Centercode Phone Number [facility] [address] [place] [address] CENTER Basic metabolic panel (02/06/2020 4:02 AM CDT)Only the most recent of2 results within the time period is included. Sodium 137 136 - 145 meq/L [facility] Potassium 4.4Comment: Specimen 3.5 - 5.1 meq/L [facility] Chloride 101 98 - 107 meq/L [facility] CO2 28 22 - 29 meq/L [facility] BUN 13 7 - 21 mg/dL [facility] Creatinine 0.73Comment: 0.57 - 1.25 [facility] Specimen slightly mg/dL [facility] hemolyzed [place] Glucose 124 (H) 70 - 105 mg/dL [facility] Calcium 8.2 (L) 8.4 - 10.2 [facility] mg/dL [facility] EGFR 112Comment: mL/min/1.[address] [facility] ESTIMATED GFR IS NOT [facility] ACCURATE [place] CREATININE CLEARANCE IN PREDICTING GLOMERULAR FILTRATION RATE. ESTIMATED GFR IS NOT APPLICABLE FOR DIALYSIS PATIENTS. Specimen Blood Narrative Performed At [employer] Teacher ID - NELLY Loredo [facility] Performing Organization Address [facility]/Zipcode Phone Number [facility] [address] [place] [address] CENTER XR chest 1 view [...] Report Verified Date/Time: 02/05/2020 18:08:29 Reading Location: [address] Reading Room Procedure Note Interface, External [...] Verified Date/Time: 02/05/2020 1 8:08:29 Reading Location: [facility] [address] [place] [address] Reading Room Performing Organization Address City/State/Zipcode Phone Number [facility] Blood gas, arterial (02/05/2020 11:36 AM CDT) Pathologist Sig nature pH, Arterial 7.42 7.35 - 7.45 [facility] pCO2, Arterial 48 (H) 35 - 45 mmHg [facility] pO2, Arterial 70 (L) 80 - 90 mmHg [facility] O2 Sat, Arterial 94.8 (L) 96.0 - 97.0 % [facility] HCO3, Arterial 31 (H) 21 - 29 mmol/L [facility] Base Excess, Arterial 5.3 (H) -2.0 - 3.0 [facility] mmol/L [facility] Patient Temperature 36.3 C [facility] FIO2 21.0 % [facility] Specimen Blood, Arterial Performing Organization Address [facility] Centercoct Phone Number [address] [address] CENTER ABORH, manual (02/05/2020 8:59 AM CDT) Pathologist Sig nature ABO Grouping AB [facility] Rh Factor POS [facility] Specimen Blood Performing Organization Address [facility] Centerco[facility] Phone Number [address] [address] Type and screen, automated (02/05/2020 8:30 AM CDT) Pathologist Sig nature ABO/RH AUTOMATED AB POSITIVE [facility] Ab Scrn NEGATIVE [facility] Specimen Blood Performing Organization Address [facility] Phone Number [address] [address] ECG 12 lead (02/05/2020 6:40 AM CDT) Specimen Narrative Performed At Ventricular Rate 64 BPM GE MUSE Atrial Rate 64 BPM P-R Interval 152 ms QRS Duration 106 ms Q-T Interval 380 ms QTC Calculation(Bazett) 392 ms P Sidney 51 degrees R Sidney 57 degrees T Sidney -21 degrees Normal sinus rhythm Incomplete left [...] 380 ms QTC Calculation(Bazett) 392 ms P Sidney 51 degrees R Sidney 57 degrees T Sidney -21 degrees Normal sinus rhythm Incomplete left bundle branch block Nonspecific ST and T wave abnormality Abnormal ECG No previous ECGs available Confirmed by MD JHON, BLANQUITA ([id number]) on 02/05/2020 1:06:39 PM Performing Organization Address City/[facility] Centercode Phone Number MUSE Hemoglobin A1c (02/05/2020 1:23 AM CDT) Pathologist Sig nature Hemoglobin A1C 8.3 (H) 4.3 - 6.1 % [facility] Specimen Blood Performing Organization Address [facility] Phone Number [address] [address] [place] Blood gas, venous (02/05/2020 1:23 AM CDT) Pathologist Sig nature pH, Cuco 7.39 7.32 - 7.42 [facility] pCO2, Cuco 52 (H) 41 - 51 mmHg [facility] pO2, Cuco 147 (H) 25 - 40 mmHg [facility] O2 Sat, Cuco 98.8 (H) 40.0 - 70.0 % [facility] HCO3, Cuco 30 (H) 21 - 29 mmol/L [facility] Base Excess, Cuco 4.3 (H) -2.0 - 3.0 [facility] mmol/L [facility] Patient Temperature 37.0 C [facility] FIO2 21.0 % [facility] Specimen Blood Performing Organization Address [facility] Centerco[facility] Phone Number [facility] [address] [place] [address] [place] Lipid panel (02/05/2020 1:22 AM CDT) Pathologist Sig nature Triglycerides 119 mg/dL [facility] [place] Cholesterol 192 mg/dL [facility] IC[facility] [place] HDL 34 mg/dL [facility] LDL Calculated 134 mg/dL [facility] Specimen Blood Narrative Performed At Triglyceride Reference Range: [facility] Low Risk <150 Borderline 150-199 High Risk 200-499 Very High Risk >=500 Cholesterol Reference Range: Low Risk <200 Borderline 200-239 High Risk >240 HDL Cholesterol Reference Range: Low Risk >=60 High Risk <40 LDL Cholesterol Reference Range: Optimal <100 Near Optimal 100-129 Borderline 130-159 High 160-189 Very High >=190 [employer] Teacher ID - NELLY W Performing Organization Address City/State/Zipcode Phone Number [facility] [address] [place] [address] CENTER SARS-CoV2/RT-PCR ([facility]) (02/03/2020 8:16 PM CDT) SARS-COV2/RT-PCR Negative Not Detected, [facility] Negative, See [facility] external report CENTER for linked test SARS-COV-[address] [facility] [address] [facility] PERFORMING LAB [facility] Specimen Other - Nasopharyngeal wall structure (b yinka structure) Narrative Performed At Negative result for this test determines that [facility] SARS-CoV-2 RNA was not present in [...] the Act. Fact Sheet for Healthcare Providers: https://www.[employer]/sites/default/files/pro duct/documents/Fact_Sheet_HC_Providers_Lyra_SA RS-CoV-2.pdf Fact Sheet for Healthcare Patients: https://www.[employer]/sites/default/files/pro duct/documents/Fact_Sheet_Patients_Lyra_SARS-C oV-2.pdf Performing Laboratory: [place] [address] Performing Organization Address City/State/[place] [address] CENTER after 06/13/2019 Advance Directives For more information, please contact: [phone] Code Status Date Activated Date Inactivated Comments Full Code 02/04/2020 11:59 PM 02/06/2020 5:54 PM This code status was determined by: Patient
--- OUTSIDE RECORDS SUMMARY | 2020-06-13 14:37 | XMS REPORT | Continuity of Care Document ---
:1965 Author Organization [facility] t Address [address] [place] [address] Care Team Providers Name Role Phone Pcp [...] on 02[facility]04 [facility] - [facility] 00 [place] HLD HLD Disease Active [facility]i (hyperlipi 02-04 kes - demia) demia) 00:00: Medical 00 Center Coronary Coronary Disease Active [facility] - disease disease 00[facility]00: Medical 00 Center BRIDGET BRIDGET Disease Active [facility] (obstructi (obstructi 02-04 kes - ve sleep ve sleep 00:00: Medica l apnea) apnea) 00 Center Morbid Morbid Disease Active [facility] obesity obesity 02-04 [facility] - with BMI with BMI 00:00: Medica l of of 00 Center 40.0-44.9, 40.0-44.9, adult adult Syncope Syncope Disease Active St due to due to 02-03 [facility] - sick sinus sick sinus 00:00: Me dical syndrome syndrome 00 [place] Sick sinus Sick sinus Disease Active [facility] syndrome syndrome 02-[facility] - due to SA due to SA 00:00: Medi ajith node node 00 [place] dysfunctio dysfunctio n n Homeless Homeless Disease Active S t 02-03 kes - 00:00: Medical 00 Center Allergies, Adverse Reactions, Alerts This patient has no known allergies or adverse reactions. Social History Social Habit Start Date Stop Date Quantity Comments Source History [facility] - Alcohol Std Drinks Medica Center History [facility] - Alcohol Binge Medical Olya ter Sex Assigned At [facility] Alcohol intake 2020-02-06 2020-02-06 Current [facility] es - 00:00:00 00:00:00 non-drinker of Medical Ce nter alcohol (finding) History [facility] 2020-02-04 2020-02-04 1 [facility] - Alcohol Frequency 00:00:00 00:00:00 [facility] Smoking Status Start Date Stop Date Source Current every day smoker 2020-02-06 00:00:00 [facility] Medications Ordered Filled Start Stop [...] Source Systolic blood 2020-02-06 11:21:00 146 mm[Hg] [facility] Diastolic blood 2020-02-06 11:21:00 74 mm[Hg] S [facility] Heart rate 2020-02-06 11:21:00 80 /min [facility] Body temperature 2020-02-06 11:21:00 37.06 Marianne [facility] Respiratory rate 2020-02-06 11:21:00 18 /min [facility] Oxygen saturation in 2020-02-06 11:21:00 94 /min [facility] Arterial blood by Medical Ce nter Pulse oximetry Body weight 2020-02-05 06:35:00 120.929 kg [facility] BMI 2020-02-05 06:35:00 43.03 kg/m2 [facility] Body height 2020-02-04 22:00:00 167.6 cm [facility] Procedures Procedure Date / Time Performed Performing Clinician Elo e ARRYTHMIA IMPLANT REPORT 2020-02-20 13:41:29 Provider, Default [facility] [place] [facility] RHYTHM STRIP - SCAN 2020-02-08 09:00:23 Provider, Default [facility] ARRYTHMIA IMPLANT REPORT 2020-02-08 09:00:19 Provider, Default [facility] - [facility]AN Scanning [facility] CARDIAC CATH REPORT - 2020-02-08 09:00:17 Provider, Default [facility] TRANSFUSION SERVICE 2020-02-06 18:02:59 Provider, Default [facility] REPORT [facility] 2D ECHO W/ DOPPLER 2020-02-06 10:08:[address] [facility] (CW/PW/COLOR) [facility] POCT-GLUCOSE METER 2020-02-06 07:12:00 Timoteo Shipley [facility] CBC W/PLT COUNT & AUTO 2020-02-06 04:03:00 Lon [facility] DIFFERENTIAL [facility] BASIC METABOLIC PANEL 2020-02-06 04:02:00 Fredrick Forrest [facility] (7) [facility] MAGNESIUM 2020-02-06 04:02:00 Lon [facility] POCT-GLUCOSE METER 2020-02-05 22:25:00 Timoteo Shipley [facility] XR CHEST 1 VIEW 2020-02-05 17:51:00 Eduardo Chavez [facility] - PORTABLE/BEDSIDE [facility] POCT-GLUCOSE METER 2020-02-05 16:47:00 Timoteo Shipley [facility] AICD UPGRADE - SINGLE TO 2020-02-05 12:29:[address] [facility] DUAL CHAMBER SYSTEM Medical Cent er BLOOD GAS, ARTERIAL 2020-02-05 11:36:00 Dulce Wilde [facility] ABORH, MANUAL 2020-02-05 08:59:00 Tiffanie Conner [facility] TYPE AND SCREEN, 2020-02-05 08:30:00 Eduardo Chavez [facility] - AUTOMATED [facility] XR CHEST 1 VIEW 2020-02-05 06:55:00 Dulce Wilde [facility] - PORTABLE/BEDSIDE [facility] ECG 12-LEAD 2020-02-05 06:40:35 Unknown, Hl7 Doctor [facility] HEMOGLOBIN A1C 2020-02-05 01:23:00 Lon [facility] BLOOD GAS, VENOUS 2020-02-05 01:23:00 Fredrick Forrest [facility] CBC W/PLT COUNT & AUTO 2020-02-05 01:23:[address] [facility] DIFFERENTIAL [facility] BASIC METABOLIC PANEL 2020-02-05 01:22:00 LonFredrick HI abundio - (7) [facility] MAGNESIUM 2020-02-05 01:22:[address] [facility] LIPID PANEL 2020-02-05 01:22:[address] [facility] SARS-COV2/RT-PCR ([facility] & 2020-02-03 20:16:00 [facility] Plan of Care Planned Activity Planned Date Details Comments Source Future Scheduled 2023-02-[address] [facility] - Test 00:00:00 (procedure) [code = Medical Center 84914671] Future Scheduled 2020-08-[address] [facility] - Test 00:00:00 measurement [facility] (procedure) [code = 19223294] Future Scheduled 2020-03-[address] [facility] - Test 00:00:00 (#1) [code = [facility] INFLUENZA VACCINE (#1)] Future Scheduled 1975-09-[address] DIABETIC EYE EXAM [facility] - Test 00:00:00 [code = DIABETIC EYE Medical Center EXAM] Future Scheduled 1975-09-[address] [facility] - Test 00:[facility]:00 examination Medical Center (regime/therapy) [code = 398877974] Future Scheduled 1975-09-07 Urine screening [facility] - Test 00:00:00 protein (procedure) [facility] [code = 640749465] Future Scheduled [address] [facility] - Test 00:00:00 malignant neoplasm of Medica l Center colon (procedure) [code = 127627690] Encounters Start End Encounter Admission Attending Care Care Encounter Source Date/Time Date/Time Type Type Clinicians Facility Department ID 2020-06-06 2020-06-06 Telephone Ekta Lucero [id number] 00:00:00 00:00:00 [place] [id number] [place] [id number] UNIT [id number] 2020-06-03 2020-06-03 Telephone Ekta Lucero [id number] 00:00:00 00:00:00 [facility] [id number] [facility] [id number] UNIT [id number] Results Test Description Test Time Test Comments Results Result [facility] e Comments 2D Echo Ejection FractionSLEH [facility] W/Doppler(CW/PW/C 5 ECHO [facility] - Nh dical olor) 18:17:02 [facility] CPACSInterface, External Ris In - 02/06/2020 6:17 PM CDTTransthoracic Echocardiography Report (TTE) Demographics Patient Name SAMMY VALLE Date of Study 02/06/2020 RU Gender Male Visit Number [id number] Race Unknown Room Number 636 Number Date of 1965 Referring [facility] Age 54 year(s) Rehab/Pre Vocational Counselor ROSSY Kingston, RDCS,RVT,RDMS Electro Optical Engineer Linda Rodriguez, Interpreting Nilda Myles MD RDCS [...] 70-110 H : TESTED AT [facility] [address] [facility] 15[address]) [facility], [address] 30: Call Or Contact Centre Operator/Techni vanita ID = [id number] for KENDRICK HAN Lab Interpretation (test code = Abnormal 06852-5) [facility] [id number] 07:29:00 Test Item Value Reference Range Interpretation Comments POC-GLUCOSE METER 131 mg/dL 70-110 H : TESTED A T [facility] [address] (BEAKER) (test code = BERTNE R [facility], 1538) [address]: Call Or Contact Centre Operator/Techni vanita ID = [id number] for PO KENDRICK VORA Basic metabolic [id number] 04:43:00 Test Item Value Reference Range Interpretation Comments Sodium (test code = 137 meq/L 494-892 7052-2) Potassium (test code = 4.4 meq/L 3.5-5.1 Speci men slightly 2823-3) hemolyzed Chloride (test code = 101 meq/L 98-107 5-0) CO2 (test code = 28 meq/L -29 8-9) BUN (test code = 13 mg/dL 7- 3094-0) Creatinine (test code 0.73 mg/dL 0.57-1.25 Specim en slightly = 2160-0) hemolyzed Glucose (test code = 124 mg/dL 70-105 H 2345-7) Calcium (test code = 8.2 mg/dL 8.4-10.2 L 00234-2) EGFR (test code = 112 mL/min/1.73 [place] [address]-2) NOT ACCURATE CREATININE CLEARANCE IN PREDICTING GLOMERULAR FILTRATION RATE . ESTIMATED GFR I S NOT APPLICABLE FOR DIALYSIS PATIENTS. YOMI (test code = YOMI) Call Or Contact Centre Operator ID - NELLY W Lab Interpretation Abnormal (test code = 98605-2) [facility] 04:43:00 Test Item Value Reference Range Interpretation Comments Magnesium (test code = 1.9 mg/dL 1.6-2.6 Speci men 68623-7) slightly hemolyzed YOMI (test code = YOMI) Call Or Contact Centre Operator ID - NELLY W Lab Interpretation Normal (test code = 00929-3) [facility] 04:43:00 Test Item Value Reference Range Interpretation Comments MAGNESIUM (BEAKER) 1.9 mg/dL 1.6-2.6 Specimen slightly (test code = 627) hemolyzed Call Or Contact Centre Operator ID - NELLY WBASIC METABOLIC [id number] 04:43:00 Test Item Value Reference Range Interpretation Comments SODIUM (BEAKER) 137 meq/L 136-145 (test code = 381) POTASSIUM (BEAKER) 4.4 meq/L 3.5-5.1 Specimen slightly (test code = 379) hemolyzed CHLORIDE (BEAKER) 101 meq/L 98-107 (test code = 382) CO2 (BEAKER) (test 28 meq/L - code = 355) BLOOD UREA NITROGEN 13 [...] S NOT APPLICABLE FOR DIALYSIS PATIEN TS. Call Or Contact Centre Operator ID - NELLY WCBC with platelet count + automated [id number] 04:32:00 Test Item Value Reference Range Interpretation [...] 450 K/CU MM MPV (test code = 78174-6) 11.2 fL 9.4-12.4 nRBC (test code = [...] 2801) Lab Interpretation (test code = Abnormal 56800-3) [facility] W/PLT COUNT & AUTO [id number] 04:32:00 Test Item Value Reference Range Interpretation [...] PERCENT (BEAKER) (test code = 2801) POCT-GLUCOSE [id number] 22:36:00 Test Item Value Reference Range Interpretation Comments POC-GLUCOSE METER 118 mg/dL 70-110 H : TESTED A T [facility] [address] (YASMEEN) (test code = EVA Marcum [facility], 1538) [address]: Call Or Contact Centre Operator/Techni vanita ID = [id number] for CA RPIO, RICARDO RAD, CHEST, 1 VIEW, NON [id number] 18:08:00Reason for exam:->Confirm pacemaker lead placementShould this [...] MDReport Verified Date/Time: 02/05/2020 18:08:29 Reading Location: [address] Transitional Reading Room XR chest 1 view portable / [id number] 18:08:00 Interface, External Ris In - 02/05/2020 [...] Vincent Verified Date/Time: 02/05/2020 18:08:29 Reading Location: [facility] C013T Transitional Reading Room [facility] [id number] 17:06:00 Test Item Value Reference Range Interpretation Comments POC-GLUCOSE METER 91 mg/dL 70-110 : TESTED A T [facility] [address] (BEAKER) (test code = RADHAINDIA [address] [place], 1538) [address]: Call Or Contact Centre Operator/Techni vanita ID = [id number] for JADYN DOMÍNGUEZ ECG 12 [id number] 13:06:41Interface, External Ris In - 02/05/2020 1:06 PM CDTVentricular Rate 64 BPMAtrial Rate 64 BPMP-R Interval 152 msQRS Duration 106 msQ-T Interval 380 msQTC Calculation(Bazett) 392 msP [place] 51 degreesR [place] 57 degreesT [place] -21 degreesNormal sinus rhythmIncomplete left bundle branch blockNonspecific ST and T wave abnormalityAbnormal ECGNo previous ECGs availableConfirmed by MD JHON, LAUREN ([id number]) on 02/05/2020 1:06:39 [facility] CenterBlood gas, [id number] 11:49:00 Test Item Value Reference Range Interpretation Comments pH, Arterial (test code = 2744-1) 7.42 7.35-7.45 pCO2, Arterial (test code = 48 35- 45 mmHg H 2019-02) pO2, Arterial (test code = 2703-7) 70 80- 90 mmHg L O2 Sat, Arterial (test code = 94.8 % 96-97 L 6) HCO3, Arterial (test code = 31 mmol/L 21-29 H 1959-10) Base Excess, Arterial (test code = 5.3 mmol/L -2-3 H 1925-01) Patient Temperature (test code = 36.3 C 8310-5) FIO2 (test code = 1819) 21 % Lab Interpretation (test code = Abnormal 27299-6) [facility] CenterBLO[facility]AS, [id number] 11:49:00 Test Item Value Reference Range Interpretation [...] (test code = 1819) 21.0 % Hemoglobin [id number] 10:59:00 Test Item Value Reference Range Interpretation Comments Hemoglobin A1C (test code = 4548-4) 8.3 % 4.3-6.1 H Lab Interpretation (test code = Abnormal 65027-8) [facility] CenterHEMOGLOBIN [id number] 10:59:00 Test Item Value Reference Range Interpretation Comments HEMOGLOBIN A1C (BEAKER) (test code = 8.3 % 4.3-6.1 H 368) ABORH, [id number] 09:54:00 Test Item Value Reference Range Interpretation Comments ABO Grouping (test code = 2588) AB Rh Factor (test code = 2589) POS [facility] CenterType and screen, [id number] 09:35:00 Test Item Value Reference Range Interpretation Comments ABO/RH AUTOMATED (BEAKER) (test AB POSITIVE code = 2260) Ab Scrn (test code = 890-4) NEGATIVE [facility] CenterRAD, CHEST, 1 VIEW, NON [id number] 07:14:00 Reason for exam:->hypoxiaShould this be performed at the bedside?->Yes FINAL REPORT RAD, CHEST, 1 VIEW, NON DEPT INDICATION: hypoxia COMPARISON: Prior day's exam FINDINGS: Portable frontal view of the chest. IMPRESSION: Support Lines: None Lungs and pleura: Clear lungs No pneumothorax.Heart and mediastinum: Unremarkable contours.Additional findings: None. Signed: JR Johana, Sami Styles Verified Date/Time: 02/05/2020 07:14:51 ReadingLocation: [facility] Reading Room Blood gas, venous 2020-02-05 02:00:00 Test Item Value Reference Range Interpretation Comments pH, Cuco (test code = 2746-6) 7.39 7.32-7.42 pCO2, Cuco (test code = 755) 52 41- 51 mmHg H pO2, Cuco (test code = 2705-2) 147 25- 40 mmHg H O2 Sat, Cuco (test code = 2711-0) 98.8 % 40-70 H HCO3, Cuco (test code = 44678-8) 30 mmol/L 21-29 H Base Excess, Cuco (test code = 4.3 mmol/L -2-3 H 1927-3) Patient Temperature (test code = 37.0 C 8310-5) FIO2 (test code = 1819) 21 % Lab Interpretation (test code = Abnormal 79306-6) [facility] CenterBLOOD GAS, [id number] 02:00:00 Test Item Value Reference Range Interpretation [...] (test code = 1819) 21.0 % Lipid [id number] 01:56:00 Test Item Value Reference Range Interpretation Comments Triglycerides (test 119 mg/dL code = 2571-8) Cholesterol (test code 192 mg/dL = 2093-3) HDL (test code = 34 mg/dL 5-9) LDL Calculated (test 134 mg/dL code = 69840-6) YOMI (test code = YOMI) Triglyceride Reference Range: Low Risk <150 Borderline 150-199 High Risk 200-499 Very High Risk >=500 Cholesterol Reference Range: Low Risk <200 Borderline 200-239 High Risk >240 HDL Cholesterol Reference Range: Low Risk >=60 High Risk <40 LDL Cholesterol Reference Range: Optimal <100 Near Optimal 100-129 Borderline 130-159 High 160-189 Very High >=190 Call Or Contact Centre Operator ID - NELLY Gertrude [facility] CenterMAGNESIUM2020-08-04 01:56:00 Test Item Value Reference Range Interpretation Comments MAGNESIUM (BEAKER) (test code = 1.8 mg/dL 1.6-2.6 627) Call Or Contact Centre Operator ID - NELLY WBASIC METABOLIC [id number] 01:56:00 Test Item Value Reference Range Interpretation [...] S NOT APPLICABLE FOR DIALYSIS PATIEN TS. Call Or Contact Centre Operator ID - NELLY WLIPID [id number] 01:56:00 Test Item Value Reference Range Interpretation [...] Borderline 130-159 High 160-189 Very High >=190 Call Or Contact Centre Operator ID - DONNAWCBC W/PLT COUNT & AUTO [id number] 01:42:00 Test Item Value Reference Range Interpretation [...] PERCENT (BEAKER) (test code = 2801) SARS-CoV2/RT-PCR ([facility] & Ref Labs)2020-02-04 10:32:00 Test Item Value Reference Range Interpretation Comments SARS-COV2/RT-PCR Negative Not Detected, (test code = Negative, See 45748-2) external report for linked test SARS-COV-2 [facility] KYLIE PERFORMING LAB (test code = 49388-1) YOMI (test code = Negative result for [...] of the Act. Fact Sheet for Healthcare Providers:https://www.[employer]/sites/default/f angelina/product/documents/F act_Sheet_HC_Providers_L zuy_RFKH-DnG-4.pdf Fact Sheet for Healthcare Patients:https://www.M[employer]Way/sites/default/fi les/product/documents/Fa ct_Sheet_Patients_Lyra_S ARS-CoV-2.pdf Performing Laboratory:[facility] [place], [place] [address] [place], [place] [address]ARS-COV2/RT-PCR ([facility] & REF LABS)2020-02-04 10:32:00 Test Item Value Reference Range Interpretation Comments SARS-COV2/RT-PCR (test Negative Not Detected, Negative, code = 7970074) See external report for linked test SARS-COV-2 PERFORMING LAB [facility] KYLIE (test code = 5096858) Negative result for this test determines that [...] 564(g) of the Act.Fact Sheet for Healthcare Providers:https://www.[employer]/sites/default/files/product/documents/Fact_Shee j_TR_Zlpbvivuk_Hpjc_YRZB-MfE-4.pdfFact Sheet for Healthcare Patients:https://www.[employer].com/sites/default/files/product/ documents/Lchj_Dsjyg_Hjirhygn_Htgf_XLJM-OwE-1.pdfPerforming Laboratory:[facility] [place] [address]
[2020-06-13 16:23] LABS: Absolute Lymphocytes (CBC) 2.1 K/uL (0.7-4.9); Hematocrit 39.7 % (39.6-49.0); Lymphocytes % 23.3 % (15.3-44.8)
[2020-06-13 16:25] LABS: Protime INR 1.12
[2020-06-13] MEDS ORDERED: NA CHLORIDE 0.9% 1,000 ML ONE (16:25)
[2020-06-13 16:26] LABS: ALT/SGPT 109 U/L (12-78); AST/SGOT 44 U/L (15-37); Albumin 3.3 g/dL (3.4-5.0); Alkaline Phosphatase 45 U/L (45-117); BUN Blood Urea Nitrogen 19 mg/dL (7-18); Bicarbonate 30 mmol/L (21-32); Bilirubin Direct < 0.1 mg/dL (0-0.2); Bilirubin Total 0.3 mg/dL (0.2-1.0); Glucose Level 139 mg/dL (74-106); Magnesium 1.9 mg/dL (1.8-2.4); NT PRO-BNP 45 pg/mL (<125); Potassium 3.9 mmol/L (3.5-5.1); Protein, Total 6.7 g/dL (6.4-8.2); Sodium Level 137 mmol/L (136-145); Troponin (Emerg Dept Use Only) < 0.02 ng/mL (0.0-0.045)
--- NOTE | 2020-06-13 17:32 | RAD REPORT ---
EXAM DESCRIPTION: CT - Chest For Pe Angio - 06/13/2020 5:01 pm CLINICAL HISTORY: syncopepersistent coughing, shortness of breath COMPARISON: Chest For Pe Angio dated 03/07/2020; Chest Single View dated 06/13/2020; Chest For Pe Christina o dated 06/21/2019 TECHNIQUE: Dynamically enhanced 3 mm thick images of the chest were obtained during administration o f approximately 150mL Isovue 370 IV contrast. Coronal and oblique MIP reconstruction images were gene rated and reviewed. Exam utilizes a protocol to evaluate the pulmonary arterial tree. All CT scans are performed using dose optimization technique as appropriate and may include automated exposure control or mA/KV adjustment according to patient size. FINDINGS: No pulmonary emboli are identified. The aorta as imaged shows no acute or suspicious finding. No pericardial thickening or effusion. No infiltrate and no suspicious nodularity. Small sub centimeter nodules in the lung parenchyma uncha nged from March comparison. The 6 millimeter nodule abutting the minor fissure on the right has n ot changed back to June 2019 No pleural effusion or pleural thickening. No mediastinal or hilar suspicious masses. No chest wall masses or abnormal axillary lymphadenopathy. IMPRESSION: No pulmonary emboli identified. No other significant or suspicious findings.Nonacute findings detailed in the body of the report. No significant change when comparing back to June 2019.
--- NOTE | 2020-06-13 18:02 | EDPHYS ---
Physician Documentation [facility] Name: Juan Miguel Langston Age: 54 yrs Sex: Male : 1965 Arrival Date: 06/13/2020 Time: 14:34 Bed 27 Private MD: ED Physician Rashard Bardales HPI: 06/13 18:04 This 54 yrs old Male presents to ER via EMS with complaints of Syncope. m 18:04 The patient has experienced syncope. Onset: The symptoms/episode began/occurred jmm acutely, today. Associated injury: The patient did not suffer any apparent associated injury. Associated signs and symptoms: Pertinent negatives: abdominal pain, chest pain, seizure, shortness of breath. This is a 54 year old male with a history of [place], HLP, HTN that presents ot the ED after a syncopal episode which occurred after coughing. Patient has multiple episodes over the past 3 days. . Historical: - Allergies: 15:23 Azithromycin; em 15:23 Beta-Blockers (Beta-Adrenergic Bloc; em 15:23 Demerol; em 15:23 Metoprolol Tartrate; em - PMHx: 15:23 COPD; Myocardial infarction; High Cholesterol; Hypertension; Angina; Diabetes - NIDDM; em Sleep Apnea; - PSHx: 15:23 pacemaker; em - Immunization history:: Adult Immunizations up to date. - Social history:: Smoking status: Patient reports the use of cigarette tobacco products, smokes one-half pack cigarettes per day. ROS: 18:04 Constitutional: Negative for fever, chills, and weight loss, Cardiovascular: Negative jmm for chest pain, palpitations, and edema, Respiratory: Negative for shortness of breath, cough, wheezing, and pleuritic chest pain. 18:04 Neuro: Positive for syncope. 18:04 All other systems are negative. Exam: 18:04 Constitutional: This is a well developed, well nourished patient who is awake, alert, jmm and in no acute distress. Head/Face: atraumatic. Eyes: EOMI, no conjunctival erythema appreciated ENT: Moist Mucus Membranes Neck: Trachea midline, Supple Chest/axilla: Normal chest wall appearance and motion. Cardiovascular: Regular rate and rhythm. No edema appreciated Respiratory: Normal respirations, no respiratory distress appreciated Abdomen/GI: Non distended, soft Back: Normal ROM Skin: General appearance color normal MS/ Extremity: Moves all extremities, no obvious deformities appreciated, no edema noted to the lower extremities Neuro: Awake and alert, normal gait Psych: Behavior is normal, Mood is normal, Patient is cooperative and pleasant 18:04 ECG was reviewed by the Attending Physician. Vital Signs: 15:20 BP 109 / 71; Pulse 94; Resp 18; Temp 98.4; Pulse Ox 100% on R/A; Weight 119.75 kg; em Height 5 ft. 6 in. (167.64 cm); Pain 4/10; 17:41 BP 133 / 66; Pulse 75; Resp 17 S; Pulse Ox 97% on R/A; jd3 19:06 BP 127 / 83; Pulse 75; Resp 19 S; Pulse Ox 96% on R/A; jd3 15:20 Body Mass Index 42.61 (119.75 kg, 167.64 cm) em MDM: 15:41 Patient medically screened. [facility] 17:59 Data reviewed: vital signs, nurses notes. Counseling: I had a detailed discussion with judy the patient and/or guardian regarding: the historical points, exam findings, and any diagnostic results supporting the discharge/admit diagnosis, lab results, the need for further work-up and treatment in the hospital. ED course: I discussed the patient with Bora Duran whom accepted the patient to Dr. Donald's service. . 06/13 15:30 Order name: Basic Metabolic Panel; Complete Time: 17:19 [facility] 06/13 15:30 Order name: CBC with Diff; Complete Time: 16:31 [facility] 06/13 15:30 Order name: LFT's; Complete Time: 17:19 [facility] 06/13 15:30 Order name: Magnesium; Complete Time: 17:19 [facility] 06/13 15:30 Order name: NT PRO-BNP; Complete Time: 17:19 [facility] 06/13 15:30 Order name: PT-INR; Complete Time: 16:31 [facility] 06/13 15:30 Order name: Troponin (emerg Dept Use Only); Complete Time: 17:19 [facility] 06/13 15:30 Order name: XRAY Chest (1 view); Complete Time: 19:04 [facility] 06/13 15:30 Order name: EKG; Complete Time: 15: [facility] 06/13 15:30 Order name: Cardiac monitoring; Complete Time: 16:23 [facility] 06/13 15:30 Order name: EKG - Nurse/Tech; Complete Time: 16:23 [facility] 06/13 15:30 Order name: IV Saline Lock; Complete Time: 15:56 [facility] 06/13 15:48 Order name: CT Chest For PE Angio; Complete Time: 17:54 [facility] 06/13 15:30 Order name: Labs collected and sent; Complete Time: 15:56 [facility] 06/13 15:30 Order name: O2 Per Protocol; Complete Time: 15:48 [facility] 06/13 15:30 Order name: O2 Sat Monitoring; Complete Time: 15:48 [facility] EC:04 Rate is 79 beats/min. QRS [place] is Normal. TX interval is normal. QRS interval is jmm normal. QT interval is normal. No Q waves. T waves are Normal. ST Segment is depressed in leads II, III, aVF. Reviewed by me. Administered Medications: 16:22 Drug: NS 0.9% 1000 ml Route: IV; Rate: 1 bolus; Site: right hand; jd3 Disposition: 06/13/20 18:01 Hospitalization ordered by Triston Donald for Observation. Preliminary diagnosis are Syncope and collapse, Abnormal electrocardiogram [ECG] [EKG]. - Bed requested for Telemetry/MedSurg (observation). - Status is Observation. jd3 - Condition is Stable. - Problem is new. - Symptoms are unchanged. Addendum: 06/15/2020 17:44 Co-signature as Attending Physician, Rashard Bardales MD I agree with the assessment and k dr plan of care. Signatures: Dispatcher [employer] Liat Fried RN RN kl Rittger, Kevin, MD MD kdr Mickail, Joel, PA PA jmm Munoz, Edgar, RN RN em Davies, Jonathon, RN RN jd3 Corrections: (The following items were deleted from the chart) 06/13 19:57 18:01 Hospitalization Ordered by Triston Donald MD for Observation. Preliminary diagnosis is Syncope and collapse; Abnormal electrocardiogram [ECG] [EKG]. Bed requested for Telemetry/MedSurg (observation). Status is Observation. Condition is Stable. Problem is new. Symptoms are unchanged. [facility] 20:31 19:57 06/13/2020 18:01 Hospitalization Ordered by Triston Donald MD for Observation. jd3 Preliminary diagnosis is Syncope and collapse; Abnormal electrocardiogram [ECG] [EKG]. Bed requested for Telemetry/MedSurg (observation). Status is Observation. Condition is Stable. Problem is new. Symptoms are unchanged. kl
--- NOTE | 2020-06-13 18:02 | ER ---
Nurse's Notes [facility] Name: Juan Miguel Langston Age: 54 yrs Sex: Male : 1965 Arrival Date: 06/13/2020 Time: 14:34 Bed 27 Private MD: Diagnosis: Syncope and collapse;Abnormal electrocardiogram [ECG] [EKG] Presentation: 06/13 15:20 Chief complaint: EMS states: has had 8 coughing spells and blacks out after each one, em states he passes out for 2-4 minutes, reports mild chest pain, 4/10. Coronavirus screen: Client denies travel out of the [place] in the last 14 days. Ebola Screen: Patient negative for fever greater than or equal to 101.5 degrees Fahrenheit, and additional compatible Ebola Virus Disease symptoms Patient denies exposure to infectious person. Patient denies travel to an Ebola-affected area in the 21 days before illness onset. No symptoms or risks identified at this time. Initial Sepsis Screen: Does the patient meet any 2 criteria? No. Patient's initial sepsis screen is negative. Does the patient have a suspected source of infection? No. Patient's initial sepsis screen is negative. Risk Assessment: Do you want to hurt yourself or someone else? Patient reports no desire to harm self or others. Onset of symptoms was June 13, 2020. 15:20 Method Of Arrival: EMS: [facility] em 15:20 Acuity: DESTINY 3 em Historical: - Allergies: 15:23 Azithromycin; em 15:23 Beta-Blockers (Beta-Adrenergic Bloc; em 15:23 Demerol; em 15:23 Metoprolol Tartrate; em - PMHx: 15:23 COPD; Myocardial infarction; High Cholesterol; Hypertension; Angina; Diabetes - NIDDM; em Sleep Apnea; - PSHx: 15:23 pacemaker; em - Immunization history:: Adult Immunizations up to date. - Social history:: Smoking status: Patient reports the use of cigarette tobacco products, smokes one-half pack cigarettes per day. Screenin:24 Abuse screen: Denies threats or abuse. Nutritional screening: No deficits noted. jd3 Tuberculosis screening: No symptoms or risk factors identified. Fall Risk Ambulatory Aid- None/Bed Rest/Nurse Assist (0 pts). Gait- Normal/Bed Rest/Wheelchair (0 pts) Mental Status- Oriented to own ability (0 pts). Total [place] Fall Scale indicates No Risk (0-24 pts). Assessment: 16:23 General: Appears in no apparent distress. uncomfortable, unkempt, Behavior is calm, jd3 cooperative, appropriate for age. Pain: Denies pain. Neuro: Level of Consciousness is awake, alert, obeys commands, Oriented to person, place, time, situation, Reports a syncopal episode. Cardiovascular: Capillary refill < 3 seconds Patient's skin is warm and dry. Rhythm is regular. Respiratory: Reports cough that is persistent Airway is patent Respiratory effort is even, unlabored, Respiratory pattern is regular, symmetrical, Denies shortness of breath. GI: No signs and/or symptoms were reported involving the gastrointestinal system. : No signs and/or symptoms were reported regarding the genitourinary system. EENT: No signs and/or symptoms were reported regarding the EENT system. Derm: Skin is intact, Skin is dry, Skin is normal, Skin temperature is warm. Musculoskeletal: Circulation, motion, and sensation intact. Range of motion: intact in all extremities. 16:48 Reassessment: Patient appears in no apparent distress at this time. No changes from jd3 previously documented assessment. Patient and/or family updated on plan of care and expected duration. Pain level reassessed. Patient is alert, oriented x 3, equal unlabored respirations, skin warm/dry/pink. 17:41 Reassessment: Patient appears in no apparent distress at this time. Patient and/or jd3 family updated on plan of care and expected duration. Pain level reassessed. Patient is alert, oriented x 3, equal unlabored respirations, skin warm/dry/pink. pt resting in bed with eyes closed, even and unlabored respirations. no signs of distress noted at this time. 18:40 Reassessment: Patient appears in no apparent distress at this time. Patient and/or jd3 family updated on plan of care and expected duration. Pain level reassessed. Patient is alert, oriented x 3, equal unlabored respirations, skin warm/dry/pink. pt resting in bed. 19:05 Reassessment: Patient appears in no apparent distress at this time. Patient and/or jd3 family updated on plan of care and expected duration. Pain level reassessed. Patient is alert, oriented x 3, equal unlabored respirations, skin warm/dry/pink. Bora SINGLE FOLD MACHINE OPERATOR at bedside at this time discussing the admission. Vital Signs: 15:20 BP 109 / 71; Pulse 94; Resp 18; Temp 98.4; Pulse Ox 100% on R/A; Weight 119.75 kg; em Height 5 ft. 6 in. (167.64 cm); Pain 4/10; 17:41 BP 133 / 66; Pulse 75; Resp 17 S; Pulse Ox 97% on R/A; jd3 19:06 BP 127 / 83; Pulse 75; Resp 19 S; Pulse Ox 96% on R/A; jd3 15:20 Body Mass Index 42.61 (119.75 kg, 167.64 cm) em ED Course: 14:34 Patient arrived in ED. [facility] 15:22 Triage completed. em 15:23 Arm band placed on. em 15:29 Carlito Guerrero PA is PHCP. [facility] 15:29 Rashard Bardales MD is Attending Physician. [facility] 15:48 Hardeep Kirkpatrick RN is Primary Nurse. jd3 16:17 XRAY Chest (1 view) In Process Unspecified. EDMS 16:24 Patient has correct armband on for positive identification. Bed in low position. Call jd3 light in reach. Side rails up X 1. Adult w/ patient. cafeteria monitor on. Pulse ox on. NIBP on. 16:47 Inserted saline lock: 20 gauge in left antecubital area, using aseptic technique. jd3 Maintain EMS IV. Dressing intact. Good blood return noted. Site clean \T\ dry. Gauge \T\ site: 20 G right hand. 17:02 CT Chest For PE Angio In Process Unspecified. EDMS 18:01 Triston Donald MD is Hospitalizing Provider. [facility] 19:07 No provider procedures requiring assistance completed. Patient admitted, IV remains in jd3 place. Administered Medications: 16:22 Drug: NS 0.9% 1000 ml Route: IV; Rate: 1 bolus; Site: right hand; jd3 Outcome: 18:01 Decision to Hospitalize by Provider. m 19:07 Admitted to ER Hold. Please see [facility] for further documentation. jd3 19:07 Condition: stable 19:07 Instructed on the need for admit, report given to Taz GRAJEDA 20:31 Patient left the ED. jd3 Signatures: Dispatcher [employer] Carlito Pablo PA PA jmm Munoz, Edgar, Hardeep Velasquez RN, RN RN jd3 Gaskin, Ajare ag5 Corrections: (The following items were deleted from the chart) 17:43 17:41 Pulse 75bpm; Resp 17bpm; Spontaneous; Pulse Ox 97% RA; jd3 jd3
--- NOTE | 2020-06-13 19:02 | RAD REPORT ---
EXAM DESCRIPTION: RAD - Chest Single View - 06/13/2020 4:17 pm CLINICAL HISTORY: syncope, cough, chest pain COMPARISON: Portable June 12 TECHNIQUE: AP portable chest image was obtained 06/13/2020 4:17 pm . FINDINGS: Lungs are clear. Heart and vasculature are normal. No measurable pleural effusion and no p neumothorax. No acute bony abnormality seen. No acute aortic findings suspected. Left subclavian pace maker in place. IMPRESSION: No acute cardiopulmonary process. No significant change from comparison study.
[2020-06-13] MEDS: INSULIN -REGULAR HUMAN 50 UNIT/0.5 ML ML SQ SCH (21:19)
[2020-06-13] MEDS ORDERED: ACETAMINOPHEN 500 MG TAB PO PRN (21:19)
[2020-06-13] MEDS ORDERED: ONDANSETRON 4 MG/2 ML VIAL IV PRN (21:19)
[2020-06-13 21:55] VITALS: BMI 43.0
--- NOTE | 2020-06-13 22:56 | P.HP ---
Certification for Inpatient Patient admitted to: Observation With expected LOS: <2 Midnights Patient will require the following post-hospital care: None Practitioner: I am a practitioner with admitting privileges, knowledge of patient current condition, hospital course, and medical plan of care. Services: Services provided to patient in accordance with Admission requirements found in Title 42 Section 412.3 of the Code of Federal Regulations <Bora Duran - Last Filed: 06/13/20 22:48> Patient History Date of Service: 06/13/20 Primary Care Provider: none Reason for admission: Syncope History of Present Illness: 54-year-old male with history of diabetes mellitus type 2, hypertension, hyperlipidemia, COPD, coronary artery disease, sleep apnea presents to the emergency department for syncope. Patient reports that he has had multiple episodes of syncope over the course of the last 3 days reporting approximately 8 episodes. Significant other in the room states that patient has episodes where he coughs a couple of times and then passes out and is completely unresponsive for between 3 and 5 min. Patient reports this is happening now multiple times per day. Patient's evaluation in the emergency department relatively unremarkable, labs not significant different from previous, troponin negative, chest x-ray unremarkable. Some ST depression that was new in comparison to most recent EKG was noted. Due to multiple syncopal episodes with loss of consciousness and some EKG changes in ED provider wishes to admit patient under observation status. When I saw the patient in the ER he sleeping, patient's saturations were in the high 50s to low 60s. Patient with significant sleep apnea, does not have CPAP at home, does not wish to use hospital CPAP reports he does okay with nasal cannula most the time. Talked with patient at length about his syncopal episodes, patient denying chest pain at this time. Troponins have been negative. Will obtain orthostatics vital signs and monitor on telemetry to ensure there are no arrhythmias. Likely discharge tomorrow. - Past Medical/Surgical History Has patient received pneumonia vaccine in the past: No Diabetic: Yes -: Angina -: HTN -: Hyperlipidemia -: Tobacco abuse -: CAD -: COPD -: GERD -: Diabetes- NIDDM -: [place] -: Sleep Apnea -: cardic cath -: Cardiac stress tests October 2017 showed no stress-induced ischemia -: pacemaker Psychosocial/ Personal History: Patient is single. Patient is homeless. - Family History MOM -: Heart disease Notes: MASSIVE WI 61YR and arthritis DAD -: Heart disease Notes: POOR CIRCULATION TO LEGS PER PT - Social History Smoking Status: Current every day smoker Alcohol use: No CD- Drugs: No Caffeine use: Yes Place of Residence: Homeless <Bora Duran - Last Filed: 06/13/20 22:48> Date of Service: 06/13/20 <Triston Donald - Last Filed: 06/18/20 13:59> Allergies azithromycin Adverse Reaction (Verified 02/03/20 22:25) Hives Beta-Blockers (Beta-Adrenergic Bloc Adverse Reaction (Verified 02/03/20 22:25) Anaphylaxis metoprolol Adverse Reaction (Verified 02/03/20 22:25) Anaphylaxis Home Medications: Clopidogrel Bisulfate [Plavix*] 75 mg PO DAILY 03/07/20 Furosemide 1 tab PO DAILY 03/07/20 Lisinopril [Zestril] 40 mg PO DAILY 03/07/20 Metformin HCl [Glucophage*] 500 mg PO BIDWM 03/07/20 Nitroglycerin 0.4 mg SL PRN PRN 03/07/20 Albuterol Sulfate [Proair Hfa] 2 puff IH Q8H PRN 05/05/20 Amlodipine [Norvasc*] 10 mg PO DAILY 05/05/20 Apixaban [Eliquis] 5 mg PO BID 05/05/20 Aspirin 1 tab PO DAILY 05/05/20 Pitavastatin Calcium [Livalo] 4 mg PO BEDTIME 05/05/20 Isosorbide Dinitrate [Isordil] 30 mg PO DAILY #30 tablet 05/06/20 Budesonide/Formoterol Fumarate [Symbicort 160-4.5 Mcg Inhaler] 1 puff IH BID 06/13/20 Promethazine Tab [Phenergan*] 25 mg PO Q6HP PRN 06/13/20 Review of Systems Respiratory: Cough Cardiovascular: Other (Syncope), As per HPI <Bora Duran - Last Filed: 06/13/20 22:48> Physical Examination - Vital Signs Temperature: 97.2 F Blood Pressure: 144/65 Pulse: 86 Respirations: 20 Pulse Ox (%): 92 - Physical Exam General: Alert, In no apparent distress, Oriented x3 HEENT: Atraumatic, Normocephalic, PERRLA Neck: Supple Respiratory: Clear to auscultation bilaterally, Diminished, Expiratory wheezes (Bilateral) Cardiovascular: Regular rate/rhythm, Normal S1 S2 Capillary refill: <2 Seconds Gastrointestinal: Normal bowel sounds, No ascites, No tenderness, No masses Musculoskeletal: No swelling, No contractures, No erythema Integumentary: No significant lesion, No tenderness/swelling, No erythema Neurological: Normal speech, Normal strength at 5/5 x4 extr, Normal tone, Sensation intact - Studies Laboratory Data (last 24 hrs) 06/13/20 15:53: PT 13.2 H, INR 1.12 06/13/20 15:53: WBC 9.0 D, Hgb 13.0 L, Hct 39.7, Plt Count 226 D 06/13/20 15:53: Sodium 137, Potassium 3.9, BUN 19 H, Creatinine 1.04, Glucose 139 H, Magnesium 1.9 D, Total Bilirubin 0.3, AST 44 H, ALT 109 H, Alkaline Phosphatase 45 <Bora Duran - Last Filed: 06/13/20 22:48> Assessment and Plan - Plan Assessment Multiple episodes of syncope with loss of consciousness CAD Hypertension Hyperlipidemia COPD Obstructive sleep apnea Tobacco abuse Plan Multiple episodes of syncope with loss of consciousness: Monitor on telemetry, obtain orthostatics vital signs. Continue to trend troponins. Suspect cough syncope. Some EKG changes noted, cardiology consult in place. Anticipate discharge in the morning. CAD: Obtain and continue home medications. Monitor on telemetry. Hypertension: Obtain and continue home medications. Hyperlipidemia: Obtain and continue home medications. COPD: Obtain and continue home medications. Obstructive sleep apnea: Patient does not have CPAP machine at home, operative him use some hospital CPAP but he refused as he states he does not like wearing the mask. Tobacco abuse: Counseled on need for tobacco cessation. Discharge Plan: Home Plan to discharge in: 24 Hours - Advance Directives Does patient have a Living Will: Yes Does patient have a Durable POA for Healthcare: Yes - Code Status/Comfort Care Code Status Assessed: Yes (Full code) Critical Care: No Time Spent Managing Pts Care (In Minutes): 55 <Bora Duran - Last Filed: 06/13/20 22:48> - Plan Plan of care reviewed. Agree with plan as noted above by Bora Duran. hold BP meds, pt with low BP, review of EMR with low BP at 3 prior ED visits in past ~1.5 weeks. <Triston Donald - Last Filed: 06/18/20 13:59>
[2020-06-13 23:47] LABS: Urine Appearance CLEAR; Urine Bilirubin NEGATIVE (NEG); Urine Blood NEGATIVE (NEG); Urine Color YELLOW; Urine Glucose NEGATIVE (NEG); Urine Protein NEGATIVE (NEG); Urine Specific Gravity 1.025 (1.005-1.030); Urine Urobilinogen 0.2 mg/dL (0.2-1.0); Urine pH 5.5 (5.0-7.0)
[2020-06-14 00:03] LABS: Urine Microscopic Reflex NO UMIC
[2020-06-14 03:35] LABS: Absolute Lymphocytes (CBC) 1.9 K/uL (0.7-4.9); Basophils % 1.1 % (0-1.3); Hematocrit 41.9 % (39.6-49.0); Lymphocytes % 24.4 % (15.3-44.8); MPV 9.1 fL (7.6-11.3); RBC Red Blood Cell Count 5.03 M/uL (4.33-5.43)
[2020-06-14 04:05] LABS: BUN Blood Urea Nitrogen 13 mg/dL (7-18); Bicarbonate 32 mmol/L (21-32); Glucose Level 141 mg/dL (74-106); Magnesium 1.9 mg/dL (1.8-2.4); Potassium 4.5 mmol/L (3.5-5.1); Sodium Level 140 mmol/L (136-145)
[2020-06-14] MEDS ORDERED: NITROGLYCERIN 0.4 MG/TAB SL PRN (05:44)
[2020-06-14] MEDS ORDERED: ALBUTEROL INHALER 60 PUFF/8 GM IH PRN (05:44)
[2020-06-14] MEDS ORDERED: PROMETHAZINE 25 MG TABLET PO PRN (05:44)
[2020-06-14] MEDS: INSULIN -REGULAR HUMAN 50 UNIT/0.5 ML ML SQ SCH ×4 (07:30→21:00)
[2020-06-14] MEDS ORDERED: lisinopriL 20 MG TAB PO SCH (09:00)
[2020-06-14] MEDS ORDERED: ENOXAPARIN 40 MG/0.4 ML SQ SCH (09:00)
[2020-06-14] MEDS ORDERED: AMLODIPINE 10 MG TAB PO SCH (09:00)
[2020-06-14] MEDS: ISOSORBIDE DINIT 20 MG TAB PO SCH (09:02)
[2020-06-14] MEDS: APIXABAN 5 MG TABLET PO SCH ×2 (09:02→20:12)
[2020-06-14] MEDS: ASPIRIN 325 MG TAB PO SCH (09:02)
[2020-06-14] MEDS: CLOPIDOGREL 75 MG TABLET PO SCH (09:03)
[2020-06-14] MEDS: FUROSEMIDE 40 MG TABLET PO SCH (09:03)
[2020-06-14] MEDS: BENZONATATE 100 MG CAP PO PRN ×2 (14:53→20:12)
--- NOTE | 2020-06-14 16:28 | P.PN ---
Subjective Date of Service: 06/14/20 Primary Care Provider: none Chief Complaint: Syncope Subjective: No new changes Review of Systems 10-point ROS is otherwise unremarkable Physical Examination - Vital Signs Temperature: 98.6 F Blood Pressure: 128/55 Pulse: 81 Respirations: 20 Pulse Ox (%): 96 - Physical Exam General: Alert, In no apparent distress, Oriented x3 HEENT: Sclerae nonicteric Respiratory: Clear to auscultation bilaterally, Diminished Cardiovascular: Regular rate/rhythm Gastrointestinal: Soft and benign, No tenderness Musculoskeletal: No tenderness Integumentary: No rashes Neurological: Normal speech, Normal affect - Studies Laboratory Data (last 24 hrs) 06/13/20 15:53: PT 13.2 H, INR 1.12 06/13/20 15:53: WBC 9.0 D, Hgb 13.0 L, Hct 39.7, Plt Count 226 D 06/13/20 15:53: Sodium 137, Potassium 3.9, BUN 19 H, Creatinine 1.04, Glucose 139 H, Magnesium 1.9 D, Total Bilirubin 0.3, AST 44 H, ALT 109 H, Alkaline Phosphatase 45 Assessment & Plan Physician Review Additional Text: Multiple episodes of syncope with loss of consciousness CAD Chest pain Hypertension Hyperlipidemia COPD Obstructive sleep apnea Tobacco abuse Plan Multiple episodes of syncope with loss of consciousness: CAD Chest pain Continue to monitor on telemetry, negative orthostatics vital signs. Troponins negative x3. Possible cough syncope. Review of EMR shows patient has been in the 3-4 times in the last week. Each time he has been documented to have hypotension 90s-110/50-60. He states he has a history of ulfgaefst-[id number]-fskudyo hypertension and is typically in the 170-190 systolic. Will discontinue Norvasc and lisinopril and monitor closely, can restart Norvasc if needed Today, patient reports him when he has these coughing spells they are preceded by a chest pain Cardiology consulted, given patient's cardiac history, recommends cardiac catheterization Nuclear stress test (05/07/2020) with a moderate sized fixed defect of the inferoseptal wall that was unchanged from 2019 HTN, HLD, BRIDGET: stable, continue home meds COPD: reports he was tested in [facility] and does not have COPD Tobacco abuse: Counseled on need for tobacco cessation. Dispo: for cardiac cath Tuesday Time Spent Managing Pts Care (In Minutes): 40
[2020-06-14] MEDS: ATORVASTATIN 20 MG TAB PO SCH (20:13)
[2020-06-15 06:00] LABS: BUN Blood Urea Nitrogen 11 mg/dL (7-18); Bicarbonate 33 mmol/L (21-32); Glucose Level 120 mg/dL (74-106); Magnesium 2.1 mg/dL (1.8-2.4); Potassium 4.5 mmol/L (3.5-5.1); Sodium Level 140 mmol/L (136-145)
[2020-06-15] MEDS: INSULIN -REGULAR HUMAN 50 UNIT/0.5 ML ML SQ SCH ×4 (07:30→21:00)
[2020-06-15] MEDS: ISOSORBIDE DINIT 20 MG TAB PO SCH (08:41)
[2020-06-15] MEDS: CLOPIDOGREL 75 MG TABLET PO SCH (08:42)
[2020-06-15] MEDS: APIXABAN 5 MG TABLET PO SCH ×2 (08:42→21:00)
[2020-06-15] MEDS: ASPIRIN 325 MG TAB PO SCH (08:42)
[2020-06-15] MEDS: FUROSEMIDE 40 MG TABLET PO SCH (08:43)
--- NOTE | 2020-06-15 16:20 | P.PN ---
Subjective Date of Service: 06/15/20 Primary Care Provider: none Chief Complaint: Syncope Subjective: No new changes (overnight reported desaturated to 70s while sleeping, was placed on CPAP (has history of untreated sleep apnea). Reports he continues with some chest pain, no syncopal episodes since admission) Review of Systems 10-point ROS is otherwise unremarkable Physical Examination - Vital Signs Temperature: 97.4 F Blood Pressure: 132/73 Pulse: 97 Respirations: 20 Pulse Ox (%): 94 - Physical Exam General: Alert, In no apparent distress, Oriented x3 HEENT: Sclerae nonicteric Respiratory: Diminished Cardiovascular: Edema (trace - 1+) Gastrointestinal: Soft and benign, No tenderness Musculoskeletal: No tenderness Integumentary: No rashes Neurological: Normal speech, Normal affect Assessment & Plan Physician Review Additional Text: Multiple episodes of syncope with loss of consciousness CAD Chest pain Hypertension Hyperlipidemia COPD Obstructive sleep apnea Tobacco abuse Plan Multiple episodes of syncope with loss of consciousness: CAD Chest pain Continue to monitor on telemetry, negative orthostatics. Troponins negative x3. Possible cough syncope. Review of EMR shows patient has been in the 3-4 times in the last week. Each time he has been documented to have hypotension 90s-110/50-60. He states he has a history of vyokzjzbe-cl-efqmqsu hypertension and is typically in the 170-190 systolic. discontinued Norvasc and lisinopril and monitor closely, BP much improved, continue to monitor continues with chest pain Cardiology consulted, given patient's cardiac history, recommends cardiac catheterization tomorrow Nuclear stress test (05/07/2020) with a moderate sized fixed defect of the inferoseptal wall that was unchanged from 2019 HTN, HLD, BRIDGET: stable, continue home meds COPD: reports he was tested in [place] and does not have COPD Tobacco abuse: Counseled on need for tobacco cessation. Dispo: for cardiac cath tomorrow, anticipate dc afterwards patient is homeless Time Spent Managing Pts Care (In Minutes): 35
[2020-06-15] MEDS: ATORVASTATIN 20 MG TAB PO SCH (21:35)
[2020-06-16] MEDS: ASPIRIN 325 MG TAB PO SCH (05:49)
[2020-06-16] MEDS: CLOPIDOGREL 75 MG TABLET PO SCH (05:49)
[2020-06-16 06:39] LABS: BUN Blood Urea Nitrogen 11 mg/dL (7-18); Bicarbonate 34 mmol/L (21-32); Glucose Level 128 mg/dL (74-106); Magnesium 2.3 mg/dL (1.8-2.4); Potassium 4.7 mmol/L (3.5-5.1); Sodium Level 138 mmol/L (136-145)
[2020-06-16] MEDS ORDERED: HEPA 1000U/500MLS 2,000 UNIT/1,000 ML BAG IV ONE (07:29)
[2020-06-16] MEDS: INSULIN -REGULAR HUMAN 50 UNIT/0.5 ML ML SQ SCH ×3 (07:30→16:30)
[2020-06-16] MEDS ORDERED: NA CHLORIDE 0.9% 1,000 ML ONE (08:53)
[2020-06-16] MEDS: FUROSEMIDE 40 MG TABLET PO SCH (09:00)
[2020-06-16] MEDS: ISOSORBIDE DINIT 20 MG TAB PO SCH (09:52)
[2020-06-16] MEDS ORDERED: HEPARIN 5000 UNIT/ML 1 ML VIAL ONE (12:49)
[2020-06-16] MEDS ORDERED: MIDAZOLAM HCL 2 MG/2 ML INJ ONE (12:49)
[2020-06-16] MEDS ORDERED: NITROGLYCERIN 100 MCG/ML SYR (for cath lab use only) IV ONE (12:50)
[2020-06-16] MEDS ORDERED: ATROPINE SULF 1 MG/10 ML SYR IV ONE (12:50)
[2020-06-16] MEDS ORDERED: HEPARIN 10,000 UNIT/10 ML VIAL IV ONE (12:50)
[2020-06-16] MEDS ORDERED: VERAPAMIL HCL 10 MG/4 ML VIAL IV ONE (12:50)
[2020-06-16] MEDS ORDERED: FENTANYL CITR 100 MCG/2 ML ONE (12:50)
[2020-06-16 14:07] VITALS: TEMP 97.4
[2020-06-16 16:45] VITALS: BP 167/123; O2SAT 98
[2020-06-16] MEDS ORDERED: HYDRALAZINE HCL 20 MG/ML VIAL IV PRN (16:55)
--- NOTE | 2020-06-16 17:05 | OP ---
Date of Procedure: 06/16/2020 Surgeon: RANJIT MCCLELLAND Procedures Performed: 1.Selective coronary angiogram. 2.IFR measurement of mid RCA stenosis with insignificant value of 0.95. Access: Right radial artery, 6-Swiss closed with TR band. Indication: Unstable angina. Complications: None. Bleeding: Less than 10 mL. Description Of Procedure: After risks, benefits, and alternatives were explained, the patient agreed to the procedure and signed informed consent. We took the patient to the cardiac catheterization la boratory, prepped and draped in usual sterile fashion. Then, we accessed the right radial artery usi ng a pediatric micropuncture kit and we placed a 6-Swiss slender sheath, took a 6-Swiss JL3.[address], engaged left main, took standard views, and then exchanged for a 6-Swiss JR4 catheter and engag ed right coronary artery, took standard views and proceeded to the intervention details. Intervention Details: We gave heparin to assure ACT level above 250 and then we took Comet wire into the aortic root, equalized pressures and passed a wire across the stenosis and recorded IFR that was 0.95 insignificant. Then, we took the wire out, took a picture. No complications. Removed the cat heter and the sheath, and placed TR band with good hemostasis. Impression: Moderate mid RCA stenosis of 50% with negative IFR of 0.95. Findings: 1.Left main is normal. 2.LAD is normal. 3.LCX is normal. 4.RCA has a mid 50% with negative IFR of 0.95. Recommendations: Medical management. SR/MODL Voice ID: [id number] Report ID: [id number]
[2020-06-16] MEDS ORDERED: HYDRALAZINE HCL 20 MG/ML VIAL ONE (17:18)
--- NOTE | 2020-06-16 17:49 | P.DS ---
Admission Date: 06/13/20 Discharge Date: 06/16/20 Primary Care Provider: none Disposition: ROUTINE DISCHARGE Discharge Condition: FAIR Reason for Admission: Syncope Consultations: Cardiology - Dr. Burnett Procedures: CXR (06/13): no acute cardiopulmonary process. CTA Chest (06/13): no PE identified. no other significant or suspicious masses. No chest wall masses or abnormal axillary lymphadenopathy. Small sub centimeter nodules in the lung parenchyma unchanged from March. The 6 millimeter nodule abutting the minor fissure on the right has not changed back to June 2019. Cardiac Cath (06/16) by Dr. Burnett: Moderate mid RCA stenosis of 50% with negative IFR of 0.95. Left main, LAD, LCX: normal. Problem List: Multiple episodes of syncope with loss of consciousness Chest Pain CAD Hypertension Hyperlipidemia COPD Obstructive sleep apnea Tobacco abuse Homeless Brief History of Present Illness: 54yo homeless M, PMH: CAD, DM2, HTN, BRIDGET (untreated) presented to ED after ~8 episodes of syncope after coughing. Pt and SO report pt has chronic/unchanged cough, but sometimes over the past 2-3 days he has passed out for 3-5 minutes while coughing. In the ED, labwork (CBC, CMP, BNP, troponin), CXR, CTA were all unremarkable. EKG with some new ST depressions in leads II, III, aVF. Initially denied chest pain. Hospital Course: Patient was brought in for observation and seemed to be at his baseline. TSH was normal, repeat labs remained WNL, no events on telemetry were noted. Upon my review of EMR, I noted he was hypotensive (95-110/50-60s) at all ED visits in the past 2 weeks. This was patient's 4th visit to the ED with different complaints each time. I discussed with the patient, and he stated he typically has high blood pressure, and has been taking all of his medication as prescribed, adding that one of his BP meds was increased a few weeks ago. His BP medications were held during hospitalization and his BP improved and he did not have any syncopal episodes, despite continuing with his chronic cough. It is unclear if syncopal episodes truly occurred, but if so, likely due in part to hypotension, untreated BRIDGET / obesity hypoventilation syndrome, and possible cough syncope. On day after admission, possible discharge was discussed with patient, and he then reported having chest pain / pressure for the past few days. Cardiology was consulted, and given the patient's comorbidities, h/o 50% stenosis of RCA, and symptoms, it was recommended that patient undergo cardiac catheterization. Troponins were trended and remained negative x3. Pt was found to have isignificant CAD as noted above, ACS was ruled out. Patient's BP improved and had no syncopal episodes for the duration of his hospitalization (~3-4 days.) On day of discharge his BP was noted to be up to 150-160s/80-90s, nursing staff reported patient was seen constantly getting coffee throughout the day. He was advised on cutting back on caffeine intake. When I went to patient's room to review negative workup and plan for discharge, patient became notably agitated and angry. The charge nurse was with me at the time. Patient began to insult myself, the charge nurse, and the hospital. He was demanding to stay at least one more night, stating he "can't be held accountable for what I do when I'm asleep" - that he could take off the cardiac cath wrist dressing and bleed out if he's doesn't stay until the following morning. I discussed this is not a reason to remain in the hospital. I offered an DINORAH bandage that he could further wrap around his wrist if he is truly that concerned, but he declined while yelling expletives. I did recommend that patient decrease his dose of his BP medication due to multiple documentation of hypotension and his reported symptoms of syncope with cough. Patient stated he would not do anything I recommend, as I am "not a doctor", and he will continue to take his medications as he wants. His SpO2 was noted to drop <80% while sleeping. He has known BRIDGET and is untreated. Pt does not like CPAP, is homeless, and reports he can't afford it. He did state his new security police has discussed a possibility to get it for $200, however patient can't afford this, and state he wouldn't have a plug to use it consistently. Vital Signs/Physical Exam: Temp Pulse Resp BP Pulse Ox 97.4 F 85 20 167/123 H 97 06/16/20 16:40 06/16/20 16:40 06/16/20 16:40 06/16/20 16:40 06/16/20 12:00 General: Alert, In no apparent distress, Oriented x3, Obese HEENT: Sclerae nonicteric Respiratory: Clear to auscultation bilaterally Cardiovascular: Regular rate/rhythm Gastrointestinal: Soft and benign, No tenderness Musculoskeletal: No tenderness Integumentary: No rashes, No significant lesion Neurological: Normal strength at 5/5 x4 extr, Other (easily agitated / aggrava meredith) Laboratory Data at Discharge: WBC 7.6 K/uL (4.3-10.9) D 06/14/20 03:26 Hgb 13.2 g/dL (13.6-17.9) L 06/14/20 03:26 Hct 41.9 % (39.6-49.0) 06/14/20 03:26 Plt Count 275 K/uL (152-406) D 06/14/20 03:26 PT 13.2 SECONDS (9.5-12.5) H 06/13/20 15:53 INR 1.12 06/13/20 15:53 Sodium 138 mmol/L (136-145) 06/16/20 05:40 Potassium 4.7 mmol/L (3.5-5.1) 06/16/20 05:40 BUN 11 mg/dL (7-18) 06/16/20 05:40 Creatinine 0.81 mg/dL (0.55-1.3) 06/16/20 05:40 Glucose 128 mg/dL (74-106) H 06/16/20 05:40 Magnesium 2.3 mg/dL (1.8-2.4) 06/16/20 05:40 Total Bilirubin 0.3 mg/dL (0.2-1.0) 06/13/20 15:53 AST 44 U/L (15-37) H 06/13/20 15:53 ALT 109 U/L (12-78) H 06/13/20 15:53 Alkaline Phosphatase 45 U/L (45-117) 06/13/20 15:53 Troponin I < 0.02 ng/mL (0.0-0.045) 06/14/20 03:26 Home Medications: Clopidogrel Bisulfate [Plavix*] 75 mg PO DAILY 03/07/20 Furosemide 1 tab PO DAILY 03/07/20 Lisinopril [Zestril] 40 mg PO DAILY 03/07/20 Metformin HCl [Glucophage*] 500 mg PO BIDWM 03/07/20 Nitroglycerin 0.4 mg SL PRN PRN 03/07/20 Albuterol Sulfate [Proair Hfa] 2 puff IH Q8H PRN 05/05/20 Amlodipine [Norvasc*] 10 mg PO DAILY 05/05/20 Apixaban [Eliquis] 5 mg PO BID 05/05/20 Aspirin 1 tab PO DAILY 05/05/20 Pitavastatin Calcium [Livalo] 4 mg PO BEDTIME 05/05/20 Isosorbide Dinitrate [Isordil] 30 mg PO DAILY #30 tablet 05/06/20 Budesonide/Formoterol Fumarate [Symbicort 160-4.5 Mcg Inhaler] 1 puff IH BID 06/13/20 Promethazine Tab [Phenergan*] 25 mg PO Q6HP PRN 06/13/20 Patient Discharge Instructions: Follow up with your PCP within 1 week. Your cardiac catheterization was okay. It showed a 50% stenosis of your Right coronary artery with good flow. You do not need to follow up with a insulation cutter unless new symptoms arise. Your blood pressure was noted to be low (90/50- 100/60s) on at least 3 separate presentations to the emergency department on separate days over the past week. This is likely what is contributing to your passing out episodes. Recommend lower dose of your blood pressure medications (norvasc 5mg instead of 10mg). Diet: AHA Activity: Ad yasmine Followup: NONE,NONE [Primary Care Provider] - Raheel Burnett MD [ACTIVE - CAN ADMIT] - Time spent managing pt's care (in minutes): 40
--- NOTE | 2020-07-21 13:37 | CON ---
Date of Consultation: 07/14/2020 Reason For Consultation: Chest pain. History Of Present Illness: This is a 54-year-old male with a history of hypertension, dyslipidemia, coronary artery disease, COPD, presented to the emergency room with chest pain and syncope. Chest p ain is not related to exertion, but he has dyspnea on exertion. No nausea, vomiting, or diarrhea. T he patient has obstructive sleep apnea using CPAP. Past Medical History: As outlined above in the HPI. Medications: Refer to reconciliation sheet for detailed list. Allergies: BETA BLOCKERS AND AZITHROMYCIN. Family History: No premature coronary artery disease or cancer. Review of Systems: All systems reviewed and they were negative except what mentioned in the HPI. Physical Examination: Vital Signs: Were reviewed and were stable. Head and Neck: Pupils are equal, react to light. Intact eye movements. No JVD. No cervical lympha denopathy. Neck: Supple. Thyroid is not enlarged. Lungs: Clear to auscultation bilaterally. No rhonchi, rales, or crackles. No accessory muscle use. Heart: Regular rate and rhythm. No extra sounds. Abdomen: Soft, nontender. Bowel sounds positive. No organomegaly. No masses or hernia. No rigidi ty or rebound. Extremities: No edema, clubbing, or cyanosis. Intact pulses. Skin: No rashes. Neurologic: Alert, awake, oriented x3. No acute focal deficits appreciated. Investigations: Labs were reviewed. Assessment/plan: Chest pain with syncopal episodes. Continues to have on and off chest pain suggest warren of unstable angina. Recommend coronary angiogram and echocardiogram. Start on aspirin and monit or on telemetry. Thank you for the consult. /SARAH BETH Voice ID: [id number] Report ID: [id number]
== END 2020-06-16 18:04 | disposition home or self-care (01) | DRG 287 ==
LOC: ER 14:32 → ERHOLD 19:19 → 2ND 20:24 → OBSVTOIN 06-14 08:05
PROVIDERS: ADMIT Hospitalist; ATTEND Hospitalist
PROC: 4A023N7 Measurement of Cardiac Sampling and Pressure, Left Heart, Percutaneous Approach (ICD-10-PCS; principal; 2020-06-16)
PROC: B2111ZZ Fluoroscopy of Multiple Coronary Arteries using Low Osmolar Contrast (ICD-10-PCS; 2020-06-16)
DX: R55 Syncope and collapse (principal); E66.2 Morbid (severe) obesity with alveolar hypoventilation; Z68.41 Body mass index [BMI] 40.0-44.9, adult; I95.9 Hypotension, unspecified; J44.9 Chronic obstructive pulmonary disease, unspecified; I10 Essential (primary) hypertension; E11.9 Type 2 diabetes mellitus without complications; F17.210 Nicotine dependence, cigarettes, uncomplicated; E78.5 Hyperlipidemia, unspecified; I25.10 Atherosclerotic heart disease of native coronary artery without angina pectoris; K21.9 Gastro-esophageal reflux disease without esophagitis; I25.2 Old myocardial infarction; R07.9 Chest pain, unspecified; Z59.0 Homelessness; Z95.0 Presence of cardiac pacemaker; Z88.8 Allergy status to other drugs, medicaments and biological substances; Z88.1 Allergy status to other antibiotic agents; Z88.5 Allergy status to narcotic agent; Z79.02 Long term (current) use of antithrombotics/antiplatelets; Z79.84 Long term (current) use of oral hypoglycemic drugs; Z79.01 Long term (current) use of anticoagulants; Z79.82 Long term (current) use of aspirin; Z79.899 Other long term (current) drug therapy; Z53.29 Procedure and treatment not carried out because of patient's decision for other reasons; Z71.6 Tobacco abuse counseling
CPT/HCPCS: 36415; 71045; 71275; 80048; 80076; 81003; 82947; 83735; 83880; 84439; 84443; 84484; 85025; 85347; 85610; 93005; 93454; 93571; 94660; 94760; 99285; C1893; J0360; J1644; J2250; J3010; J7030; Q9967

== ENCOUNTER 2020-06-24 09:56 | Emergency (ER) | payer OTHER ==
--- NOTE | 2020-06-24 10:30 | RAD REPORT ---
EXAM DESCRIPTION: CT - Head C Spine Mpr Wo Con - 06/24/2020 10:15 am CLINICAL HISTORY: Head and neck injury status post fall. Head and neck pain COMPARISON: 2008 TECHNIQUE: Computed axial tomography of the head and cervical spine was obtained. Sagittal and coronal reconstruction was performed. All CT scans are performed using dose optimization technique as appropriate and may include automated exposure control or mA/KV adjustment according to patient size. FINDINGS: An intracranial bleed is not seen. The ventricles are normal in caliber. An extra-axial fl uid collection is not noted. Opacification involves the right mastoids and right middle ear A cervical fracture is not visualized. No dislocation is noted. Spondylosis involves the cervical spi ne IMPRESSION: No acute intracranial abnormality is seen. Opacification of the right mastoids and right middle ear could indicate inflammation A cervical fracture is not visualized. If the patient continues to have symptoms to suggest intracra nial /spinal cord pathology then MRI would be recommended
--- NOTE | 2020-06-24 10:48 | RAD REPORT ---
EXAM DESCRIPTION: RAD - Nasal Bones - 06/24/2020 10:35 am CLINICAL HISTORY: Nasal pain status post fall FINDINGS: Subtle lucency within the nasal bone likely a nondisplaced fracture Nasal septum is deviated towards the left
--- NOTE | 2020-06-24 11:43 | ER ---
Nurse's Notes [facility] Name: Juan Miguel Langston Age: 54 yrs Sex: Male : 1965 Arrival Date: 06/24/2020 Time: 09:57 Bed 16 Private MD: Diagnosis: Other slipping, tripping and stumbling and falls;Fracture of nasal bones;Facial Contusions Presentation: 06/24 09:55 Chief complaint: EMS states: pt was sitting trying to sleep, fell forward hitting his tw2 head on concrete, abrasion, laceration and bloody nose, c/o nose pain, says he doesn't remember the fall, initially he was tachy, but on the second set of vitals he was fine, bgl 242. Coronavirus screen: At this time, the client does not indicate any symptoms associated with coronavirus-19. Ebola Screen: Patient denies travel to an Ebola-affected area in the 21 days before illness onset. Initial Sepsis Screen: Does the patient meet any 2 criteria? No. Patient's initial sepsis screen is negative. Does the patient have a suspected source of infection? No. Patient's initial sepsis screen is negative. 09:55 Method Of Arrival: EMS: [facility] tw2 09:59 Care prior to arrival: None. Mechanism of Injury: Fall out of chair. Trauma event tw2 details: Injury occurred in the [facility]. 10:05 Risk Assessment: Do you want to hurt yourself or someone else? Patient reports no tw2 desire to harm self or others. Note provider at bedside. Onset of symptoms was June 24, 2020. 10:05 Acuity: DESTINY 3 tw2 Triage Assessment: 10:06 General: Appears in no apparent distress. uncomfortable, obese, unkempt, Behavior is tw2 calm, cooperative, appropriate for age. Pain: Complains of pain in nose. EENT: abrasion with laceration noted to bridge of nose, dried blood on mouth face and hands. Neuro: Level of Consciousness is awake, alert, obeys commands, Oriented to person, place, time, situation. Cardiovascular: Capillary refill < 3 seconds Patient's skin is warm and dry. Respiratory: Airway is patent Respiratory effort is even, unlabored, Respiratory pattern is regular, symmetrical. GI: No signs and/or symptoms were reported involving the gastrointestinal system. Abdomen is round non-distended, obese. : No signs and/or symptoms were reported regarding the genitourinary system. Derm: No signs and/or symptoms reported regarding the dermatologic system. Musculoskeletal: Range of motion: intact in all extremities. Injury Description: Abrasion Laceration sustained to nose. Trauma Activation: Alert Physician: ED Physician; Name: ; Notified At: ; Arrived At: Physician: General Surgeon; Name: ; Notified At: ; Arrived At: Physician: Radiology; Name: ; Notified At: ; Arrived At: Physician: Respiratory; Name: ; Notified At: ; Arrived At: Physician: Lab; Name: ; Notified At: ; Arrived At: Historical: - Allergies: 10:01 Azithromycin; sv 10:01 Beta-Blockers (Beta-Adrenergic Bloc; sv 10:01 Demerol; sv 10:01 Metoprolol Tartrate; sv - PMHx: 10:01 COPD; Diabetes - NIDDM; High Cholesterol; Angina; Hypertension; Sleep Apnea; Myocardial sv infarction; - PSHx: 10:01 pacemaker; sv - Immunization history: Last tetanus immunization: - up to date. - Social history:: Smoking status: Patient reports the use of cigarette tobacco products. Screenin:00 Abuse screen: Denies threats or abuse. Denies injuries from another. Nutritional sv screening: No deficits noted. Tuberculosis screening: No symptoms or risk factors identified. Fall Risk None identified. Primary Survey: 09:55 NO uncontrolled hemorrhage observed. A: The patient is alert. Airway: patent. tw2 Breathing/Chest: Respiratory pattern: regular, Respiratory effort: spontaneous, unlabored, Chest inspection: symmetrical rise and fall of the chest. Circulation: Heart tones present. Skin temperature: warm, dry. Disability Alert. Exposure/Environment: All clothing and personal items were removed. Forensic evidence collection is not deemed to be indicated at this time. Items placed in patient belonging bag. There is no evidence of uncontrolled external bleeding. Obvious injury(ies) are noted at this time: abrasion with small laceration to bridge of nose A warming method has been applied: A warm blanket has been provided to the patient. 11:40 Reassessment Airway Airway Patent Breathing/Chest Respiratory pattern Regular tw2 Respiratory effort Spontaneous Unlabored Circulation Heart tones Present Disability Alert. Secondary Survey: 09:55 HEENT: Nose: nostrils clear, abrasion noted to bridge of nose. Gastrointestinal: tw2 Abdomen is soft, non-distended, obese. : No signs and/or symptoms were reported regarding the genitourinary system. Musculoskeletal: Circulation, motion, and sensation intact. Range of motion: intact in all extremities. Assessment: 10:55 Reassessment: see trauma charting template. tw2 11:40 Reassessment: Patient appears in no apparent distress at this time. No changes from tw2 previously documented assessment. Patient and/or family updated on plan of care and expected duration. Pain level reassessed. Patient is alert, oriented x 3, equal unlabored respirations, skin warm/dry/pink. Vital Signs: 09:55 BP 135 / 56; Pulse 102; Resp 17; Temp 98.9; Pulse Ox 96% on R/A; Weight 119.75 kg (R); tw2 Height 5 ft. 6 in. (167.64 cm); Pain 10/10; 11:40 BP 133 / 99; Pulse 72; Resp 16; Pulse Ox 99% on R/A; tw2 09:55 Body Mass Index 42.61 (119.75 kg, 167.64 cm) tw2 Alina Coma Score: 09:55 Eye Response: spontaneous(4). Verbal Response: oriented(5). Motor Response: obeys tw2 commands(6). Total: 15. 10:07 Eye Response: spontaneous(4). Verbal Response: oriented(5). Motor Response: obeys kdr commands(6). Total: 15. 11:40 Eye Response: spontaneous(4). Verbal Response: oriented(5). Motor Response: obeys tw2 commands(6). Total: 15. Trauma Score (Adult): 09:55 Eye Response: spontaneous(1); Verbal Response: oriented(1); Motor Response: obeys tw2 commands(2); Systolic BP: > 89 mm Hg(4); Respiratory Rate: 10 to 29 per min(4); Reva Score: 15; Trauma Score: 12 11:40 Eye Response: spontaneous(1); Verbal Response: oriented(1); Motor Response: obeys tw2 commands(2); Systolic BP: > 89 mm Hg(4); Respiratory Rate: 10 to 29 per min(4); Alina Score: 15; Trauma Score: 12 ED Course: 09:55 Patient maintains SpO2 saturation greater than 95% on room air. Thermoregulation: warm tw2 blanket given to patient. 09:57 Patient arrived in ED. sv 09:59 Myla Shelton, RN is Primary Nurse. tw2 09:59 Arm band placed on. sv 10:00 Patient has correct armband on for positive identification. Bed in low position. Call light in reach. 10:02 Rashard Bardales MD is Attending Physician. kdr 10:05 Triage completed. tw2 10:16 CT Head C Spine In Process Unspecified. EDMS 10:35 Nasal Bones XRAY In Process Unspecified. EDMS 11:58 No provider procedures requiring assistance completed. Patient did not have IV access tw2 during this emergency room visit. Administered Medications: 11:37 Drug: [place] 10 mg-325 mg 1 tabs {Note: RASS0.} Route: PO; tw2 11:58 Follow up: Response: No adverse reaction; Pain is decreased; RASS: Alert and Calm (0) tw2 Output: 10:05 Urine: 800ml (Voided); Total: 800ml. tw2 Outcome: 11:42 Discharge ordered by . kdr 11:58 Discharged to home via wheelchair, with significant other. tw2 11:58 Condition: stable 11:58 Discharge instructions given to patient, significant other, Instructed on discharge instructions, follow up and referral plans. medication usage, wound care, Demonstrated understanding of instructions, follow-up care, medications, wound care, Prescriptions given X 1. 11:58 Patient left the ED. tw2 11:58 Patient's length of stay was not longer than 2 hours. tw2 Signatures: Dispatcher [employer] Nilda Smyth, NICCI GRAJEDA Rashard Bardales MD MD [facility] Myla Shelton, NICCI RN tw2
--- NOTE | 2020-06-24 11:43 | EDPHYS ---
Physician Documentation [facility] Name: Juan Miguel Langston Age: 54 yrs Sex: Male : 1965 Arrival Date: 06/24/2020 Time: 09:57 Bed 16 Private MD: ED Physician Rashard Bardales HPI: 06/24 10:07 This 54 yrs old Male presents to ER via EMS with complaints of Fall Injury. kdr 10:07 The patient or guardian reports abrasion, deformity, injury, pain, swelling, kdr tenderness. The complaints affect the nose. Context of injury: The problem was sustained on a street or driveway, resulted from a fall, from a seated position. Onset: The symptoms/episode began/occurred acutely, suddenly, just prior to arrival. Associated signs and symptoms: The patient has no apparent associated signs or symptoms. Severity of symptoms: At their worst the symptoms were mild, just prior to arrival, in the emergency department the symptoms are unchanged. The patient has not experienced similar symptoms in the past. The patient has not recently seen a physician. Historical: - Allergies: 10:01 Azithromycin; sv 10:01 Beta-Blockers (Beta-Adrenergic Bloc; sv 10:01 Demerol; sv 10:01 Metoprolol Tartrate; sv - PMHx: 10:01 COPD; Diabetes - NIDDM; High Cholesterol; Angina; Hypertension; Sleep Apnea; Myocardial sv infarction; - PSHx: 10:01 pacemaker; sv - Immunization history: Last tetanus immunization: - up to date. - Social history:: Smoking status: Patient reports the use of cigarette tobacco products. ROS: 10:07 Constitutional: Negative for fever, chills, and weight loss, Eyes: Negative for injury, kdr pain, redness, and discharge, Neck: Negative for injury, pain, and swelling, Cardiovascular: Negative for chest pain, palpitations, and edema, Respiratory: Negative for shortness of breath, cough, wheezing, and pleuritic chest pain, Abdomen/GI: Negative for abdominal pain, nausea, vomiting, diarrhea, and constipation, Back: Negative for injury and pain, : Negative for injury, bleeding, discharge, and swelling, MS/Extremity: Negative for injury and deformity, Skin: Negative for injury, rash, and discoloration, Neuro: Negative for headache, weakness, numbness, tingling, and seizure activity. Psych: Negative for depression, anxiety, suicide ideation, homicidal ideation, and hallucinations, Allergy/Immunology: Negative for hives, rash, and allergies, Endocrine: Negative for neck swelling, polydipsia, polyuria, polyphagia, and marked weight changes, Hematologic/Lymphatic: Negative for swollen nodes, abnormal bleeding, and unusual bruising. 10:07 ENT: Positive for of the nose. Exam: 10:11 Constitutional: This is a well developed, well nourished patient who is awake, alert, kdr and in no acute distress. 10:11 Head/face: Noted is abrasion(s), that are mild, of the nose, contusion, ecchymosis, erythema, a laceration(s), that is superficial. Vital Signs: 09:55 BP 135 / 56; Pulse 102; Resp 17; Temp 98.9; Pulse Ox 96% on R/A; Weight 119.75 kg (R); tw2 Height 5 ft. 6 in. (167.64 cm); Pain 10/10; 11:40 BP 133 / 99; Pulse 72; Resp 16; Pulse Ox 99% on R/A; tw2 09:55 Body Mass Index 42.61 (119.75 kg, 167.64 cm) tw2 Alina Coma Score: 09:55 Eye Response: spontaneous(4). Verbal Response: oriented(5). Motor Response: obeys tw2 commands(6). Total: 15. 10:07 Eye Response: spontaneous(4). Verbal Response: oriented(5). Motor Response: obeys kdr commands(6). Total: 15. 11:40 Eye Response: spontaneous(4). Verbal Response: oriented(5). Motor Response: obeys tw2 commands(6). Total: 15. Trauma Score (Adult): 09:55 Eye Response: spontaneous(1); Verbal Response: oriented(1); Motor Response: obeys tw2 commands(2); Systolic BP: > 89 mm Hg(4); Respiratory Rate: 10 to 29 per min(4); Taylor Score: 15; Trauma Score: 12 11:40 Eye Response: spontaneous(1); Verbal Response: oriented(1); Motor Response: obeys tw2 commands(2); Systolic BP: > 89 mm Hg(4); Respiratory Rate: 10 to 29 per min(4); Taylor Score: 15; Trauma Score: 12 MDM: 10:11 Data reviewed: vital signs, nurses notes, radiologic studies. Counseling: I had a kdr detailed discussion with the patient and/or guardian regarding: the historical points, exam findings, and any diagnostic results supporting the discharge/admit diagnosis, radiology results, the need for outpatient follow up. 11:42 Patient medically screened. kdr 06/24 10:06 Order name: CT Head C Spine; Complete Time: 11:39 kdr 06/24 10:06 Order name: Nasal Bones XRAY; Complete Time: 11:39 kdr Administered Medications: 11:37 Drug: [place] 10 mg-325 mg 1 tabs {Note: RASS0.} Route: PO; tw2 11:58 Follow up: Response: No adverse reaction; Pain is decreased; RASS: Alert and Calm (0) tw2 Disposition: 06/24/20 11:42 Discharged to Home. Impression: Other slipping, tripping and stumbling and falls, Fracture of nasal bones, Facial Contusions. - Condition is Stable. - Discharge Instructions: Fall Prevention in the Home, [id number], Facial or Scalp Contusion, [id number]. - Prescriptions for Tramadol 50 mg Oral Tablet - take 1 tablet by ORAL route every 8 hours As needed as needed; 4 tablet. - Medication Reconciliation Form, Thank You Letter, Prescription Opioid Use form. - Follow up: Private Physician; When: 2 - 3 days; Reason: If symptoms return, Further diagnostic work-up, Recheck today's complaints, Continuance of care, Re-evaluation by your physician. - Problem is new. - Symptoms have improved. Signatures: Dispatcher [employer] EDSD Nilda Olea RN RN Rashard Bardales MD MD [facility] Myla Shelton RN RN tw2 Corrections: (The following items were deleted from the chart) 11:58 11:42 06/24/2020 11:42 Discharged to Home. Impression: Other slipping, tripping and tw2 stumbling and falls; Fracture of nasal bones; Facial Contusions. Condition is Stable. Forms are Medication Reconciliation Form, Thank You Letter, Antibiotic Education, Prescription Opioid Use. Follow up: Private Physician; When: 2 - 3 days; Reason: If symptoms return, Further diagnostic work-up, Recheck today's complaints, Continuance of care, Re-evaluation by your physician. Problem is new. Symptoms have improved. kdr
[2020-06-24] MEDS ORDERED: HYDROCODONE/APAP 10/325 TAB ONE (11:51)
[2020-06-25 07:36] VITALS: BP 133/99; O2SAT 99
== END 2020-06-24 11:58 | disposition home or self-care (01) ==
LOC: ER 09:56
DX: S02.2XXA Fracture of nasal bones, initial encounter for closed fracture (principal); W18.30XA Fall on same level, unspecified, initial encounter; Y93.89 Activity, other specified; Y92.89 Other specified places as the place of occurrence of the external cause; I10 Essential (primary) hypertension; Z72.0 Tobacco use; Z95.0 Presence of cardiac pacemaker; Z88.1 Allergy status to other antibiotic agents; Z88.5 Allergy status to narcotic agent; Z88.8 Allergy status to other drugs, medicaments and biological substances
CPT/HCPCS: 70160; 70450; 72125; 99284; G0390

== ENCOUNTER 2020-06-25 00:55 | Emergency (ER) | payer OTHER ==
--- OUTSIDE RECORDS SUMMARY | 2020-06-25 00:58 | XMS REPORT | Clinical Summary ---
:1965 Author Organization [facility] Address [address] [place] [address] Care Team Providers Name Role Phone Pcp, Primary Care Provider Unavailable Allergies No Known [...] Care Team Description 02/05/2020 Surgery Prem Elam AICD UPGRADE - MD Kofi SINGLE TO DUAL [...] Reilly MD 02/03/2020 Lab Requisition Lab after 06/25/2019 Social History Tobacco Use Types Packs/Day Years [...] Completed 04/20/2019, 2013 Implants Implanted Type Area Spice Grinder Device Identifier Shelf Model / Expiration Serial / Date Lot Lead Pacemkr Cecily [place] 52x1 [id number] - [id number] PACEMAKER/I [employer]:CARD [id number] 09/27/2021 [id number] / Implanted: Qty: 1 on 02/05/2020 by Prem Herron MD at [facility] CD CHAMBER RHY:DISEASE MGT [id number] / DEVICE Description:Ventricular Lead Lead Pacemkr Cecily [place]ar [id number] - [id number] PACEMAKER/IC D [employer]:CARD [id number] 08/28/2021 [id number] / Implanted: Qty: 1 on 02/05/2020 by Prem Herron MD at [facility] CHAMBER DEVICE RHY:DISEASE MGT [id number] / Description:Atrial Lead Pacemkr [place] Xtdr Mri Ipg [id number] - [id number] PACEMAKER/ICD [employer]:CARD [id number] 05/31/2021 [id number] / Implanted: Qty: 1 on 02/05/2020 by Prem Herron MD at [facility] CHAMBER DEVICE RHY:PACING SYS [id number] / Description:Chest Procedures Procedure Name Priority Date/Time [...] 380 ms QTC Calculation(Bazett) 392 ms P Ashby 51 degrees R Ashby 57 degrees T Ashby -21 degrees Normal sinus rhythm Incomplete left [...] i n the results section . after 06/25/2019 Results ARRYTHMIA IMPLANT REPORT - SCAN (02/20/2020 [...] AM CDT) Pathologist Sig nature Ejection Fraction [facility]CHO [facility]ART[facility] Specimen Narrative Performed At Transthoracic Echocardiography Report (T TE) 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 Lilia Kingston, RDCS,RVT,RDMS Senior Construction Manager Linda Rodriguez, Interpreting Nilda Myles MD [facility] Physician Procedure Type of Study TTE procedure:2DECHO [...] Study 02/06/2020 RU Gender Male Visit Number [id number] Race Unknown Room Num [place] [id number] Number Date of 1965 Justin Mockcherrifantasma Physicia n Age 54 year(s) Sonograp her Rubens Jurado, NB, RDCS,RVT,RDMS Senior Construction Manager Anthony Lezama MD RDCS Physicia n [...] TR Gradient: 23.87 mmHg Performing Organization Address City/[facility] Phone Number [facility] ECHO HEARTLAB MKCKESSON CPACS POC-Glucose meter (02/06/2020 7:12 AM CDT)Only the most recent of3 results within the time period is included. POC-Glucose Meter 131 (H)Comment: 70 - 110 mg/dL [facility] : TESTED AT [address], [address]: Contaminated Land Consultant/Technic oswaldo ID = [id number] for KENDRICK HAN Specimen Blood Performing Organization Address [facility] Phone Number [place] [phone] CENTER CBC with platelet count + automated diff (02/06/2020 4:03 AM CDT)Only the most recent of2 resultswithin the time period is included. Pathologist Sig nature WBC 8.1 3.5 - 10.5 [facility] K/L [facility] RBC 5.09 4.63 - 6.08 [facility] M/L [facility] Hemoglobin 13.5 (L) 13.7 - 17.5 [facility] GM/DL [facility] Hematocrit 45.1 40.1 - 51.0 % [facility] MCV 88.6 79.0 - 92.2 fL [facility] MCH 26.5 25.7 - 32.2 pg [facility] MCHC 29.9 (L) 32.3 - 36.5 [facility] GM/DL [facility] RDW 15.9 (H) 11.6 - 14.4 % [facility] Platelets 265 150 - 450 K/CU [facility] MPV 11.2 9.4 - 12.4 fL [facility] nRBC 0 0 - 0 /100 WBC [facility] % Neutros 65 % [facility] % Lymphs 24 % [facility] % Monos 9 % [facility] % Eos 1 % [facility] % Baso 0 % [facility] # Neutros 5.27 1.78 - 5.38 [facility] # Lymphs 1.96 1.32 - 3.57 [facility] # Monos 0.69 0.30 - 0.82 [facility] # Eos 0.08 0.04 - 0.54 [facility] # Baso 0.03 0.01 - 0.08 [facility] Immature 0 0 - 1 % [facility] Specimen Blood Performing Organization Address City/State/Zipcode Phone Number [facility] [address] [place] [address] CENTER Magnesium (02/06/2020 4:02 AM CDT)Only the most recent of2 resultswithin the time period is included. Pathologist Sig nature Magnesium 1.9Comment: Specimen 1.6 - 2.6 mg/dL [facility] slightly hemolyzed [facility] Specimen Blood Narrative Performed At Contaminated Land Consultant ID - NELLY Loredo [facility] Performing Organization Address [facility] Phone Number [facility] [address] [place] [address] CENTER Basic metabolic panel (02/06/2020 4:02 AM CDT)Only the most recent of2 results within the time period is included. Sodium 137 136 - 145 meq/L [facility] Potassium 4.4Comment: Specimen 3.5 - 5.1 meq/L [facility] Chloride 101 98 - 107 meq/L [facility] CO2 28 22 - 29 meq/L [facility] BUN 13 7 - 21 mg/dL [facility] Creatinine 0.73Comment: 0.57 - 1.25 [facility] Specimen slightly mg/dL [facility] hemolyzed [place] Glucose 124 (H) 70 - 105 mg/dL [facility] Calcium 8.2 (L) 8.4 - 10.2 [facility] mg/dL [facility] EGFR 112Comment: mL/min/1.[address] [facility] ESTIMATED GFR IS NOT [facility] ACCURATE [place] CREATININE CLEARANCE IN PREDICTING GLOMERULAR FILTRATION RATE. ESTIMATED GFR IS NOT APPLICABLE FOR DIALYSIS PATIENTS. Specimen Blood Narrative Performed At Contaminated Land Consultant ID - NELLY Loredo [facility] Performing Organization Address City/[facility]/Zipcode Phone Number [facility] [address] [place] [address] [place] XR chest 1 view portable / bedside [...] Report Verified Date/Time: 02/05/2020 18:08:29 Reading Location: [address] Reading Room Procedure Note Interface, External [...] Verified Date/Time: 02/05/2020 1 8:08:29 Reading Location: [facility] [address] [place] [address] Reading Room Performing Organization Address City/State/Zipcode Phone Number [facility] Blood gas, arterial (02/05/2020 11:36 AM CDT) Pathologist Sig nature pH, Arterial 7.42 7.35 - 7.45 [facility] pCO2, Arterial 48 (H) 35 - 45 mmHg [facility] pO2, Arterial 70 (L) 80 - 90 mmHg [facility] O2 Sat, Arterial 94.8 (L) 96.0 - 97.0 % [facility] HCO3, Arterial 31 (H) 21 - 29 mmol/L [facility] Base Excess, Arterial 5.3 (H) -2.0 - 3.0 [facility] mmol/L [facility] Patient Temperature 36.3 C [facility] FIO2 21.0 % [facility] Specimen Blood, Arterial Performing Organization Address City/[facility] Phone Number [address] [address] CENTER ABORH, manual (02/05/2020 8:59 AM CDT) Pathologist Sig nature ABO Grouping AB [facility] Rh Factor POS [facility] Specimen Blood Performing Organization Address [facility] Phone Number [address] [address] Type and screen, automated (02/05/2020 8:30 AM CDT) Pathologist Sig nature ABO/RH AUTOMATED AB POSITIVE [facility] Ab Scrn NEGATIVE [facility] Specimen Blood Performing Organization Address [facility] Phone Number [address] [address] ECG 12 lead (02/05/2020 6:40 AM CDT) Specimen Narrative Performed At Ventricular Rate 64 BPM GE MUSE Atrial Rate 64 BPM P-R Interval 152 ms QRS Duration 106 ms Q-T Interval 380 ms QTC Calculation(Bazett) 392 ms P Ashby 51 degrees R Ashby 57 degrees T Ashby -21 degrees Normal sinus rhythm Incomplete left [...] 380 ms QTC Calculation(Bazett) 392 ms P Ashby 51 degrees R Ashby 57 degrees T Ashby -21 degrees Normal sinus rhythm Incomplete left bundle branch block Nonspecific ST and T wave abnormality Abnormal ECG No previous ECGs available Confirmed by MD JHON, BLANQUITA ([id number]) on 02/05/2020 1:06:39 PM Performing Organization Address City/[facility] Phone Number MUSE Hemoglobin A1c (02/05/2020 1:23 AM CDT) Pathologist Sig nature Hemoglobin A1C 8.3 (H) 4.3 - 6.1 % [facility] Specimen Blood Performing Organization Address [facility] Phone Number [address] [address] [place] Blood gas, venous (02/05/2020 1:23 AM CDT) Pathologist Sig nature pH, Cuco 7.39 7.32 - 7.42 [facility] pCO2, Cuco 52 (H) 41 - 51 mmHg [facility] pO2, Cuc[place] 147 (H) 25 - 40 mmHg [facility] O2 Sat, [place] 98.8 (H) 40.0 - 70.0 % [facility] HCO3, [place] 30 (H) 21 - 29 mmol/L [facility] Base Excess, Cuco 4.3 (H) -2.0 - 3.0 [facility] mmol/L [facility] Patient Temperature 37.0 C [facility] FIO2 21.0 % [facility] Specimen Blood Performing Organization Address [facility] Phone Number [facility] [address] [place] [address] [place] Lipid panel (02/05/2020 1:22 AM CDT) Pathologist Sig nature Triglycerides 119 mg/dL [facility] DICAL [place] Cholesterol 192 mg/dL [facility] HDL 34 mg/dL [facility] LDL Calculated 134 mg/dL [facility] ED[facility] [place] Specimen Blood Narrative Performed At Triglyceride Reference Range: [facility] Low Risk <150 Borderline 150-199 High Risk 200-499 Very High Risk >=500 Cholesterol Reference Range: Low Risk <200 Borderline 200-239 High Risk >240 HDL Cholesterol Reference Range: Low Risk >=60 High Risk <40 LDL Cholesterol Reference Range: Optimal <100 Near Optimal 100-129 Borderline 130-159 High 160-189 Very High >=190 Contaminated [place] Consultant ID - NELLY W Performing Organization Address City/State/Zipcode Phone Number [facility] [address] [place] [address] CENTER SARS-CoV2/RT-PCR ([facility]) (02/03/2020 8:16 PM CDT) SARS-COV2/RT-PCR Negative Not Detected, [facility] Negative, See [facility] external report CENTER for linked test SARS-COV-2 [facility] [address] PERFORMING LAB [facility] Specimen Other - Nasopharyngeal wall structure (b yinka structure) Narrative Performed At Negative result for this test determines that [facility] SARS-CoV-2 RNA was not present in the [...] the Act. Fact Sheet for Healthcare Providers: https://www.[employer]/sites/default/files/pro duct/documents/Fact_Sheet_HC_Providers_Lyra_SA RS-CoV-2.pdf Fact Sheet for Healthcare Patients: https://www.[employer] [place]/sites/default/files/pro duct/documents/Fact_Sheet_Patients_Lyra_SARS-C oV-2.pdf Performing Laboratory: [place] [address] Performing Organization Address City/State/[place] [address] CENTER after 06/25/2019 Advance Directives For more information, please contact: [phone] Code Status Date Activated Date Inactivated Comments Full Code 02/04/2020 11:59 PM 02/06/2020 5:54 PM This code status was determined by: Patient
--- OUTSIDE RECORDS SUMMARY | 2020-06-25 00:59 | XMS REPORT | Continuity of Care Document ---
:1965 Author Organization [facility] t Address [address] [place] [address] Care Team Providers Name Role Phone Pcp MD Primary Care Physician Unavailable Care, Primary Attending Clinician Unavailable Bernardo HAYWOOD Attending Clinician Juana Wilde MD Attending Clinician [...] Active [facility] obesity obesity 02-04 - with BMI with BMI 00:00: Medica l of of 00 Center 40.0-44.9, 40.0-44.9, adult adult Syncope Syncope Disease Active [facility] sick sinus sick sinus 00:00: Me dical syndrome syndrome 00 [place] Sick sinus Sick sinus Disease Active [facility] syndrome [facility] - due to SA due to SA 00:00: Medi ajith node node 00 [place] dysfunctio dysfunctio n n Homeless Homeless Disease Active [facility] 02[facility]03 [facility] - 00:00: Medical 00 Center Allergies, Adverse Reactions, Alerts This patient has no known allergies or adverse reactions. Social History Social Habit Start Date Stop Date Quantity Comments Source History [facility] - Alcohol Std Drinks Medica Center History [facility] - Alcohol Binge Medical Olya ter Sex Assigned At [facility] Alcohol intake 2020-02-06 2020-02-06 Current [facility] es - 00:00:00 00:00:00 non-drinker of Medical Ce nter alcohol (finding) History [facility] 2020-02-04 2020-02-04 1 [facility] - Alcohol Frequency 00:00:00 00:00:00 [facility] [...] Source Systolic blood 2020-02-06 11:21:00 146 mm[Hg] [facility] Diastolic blood 2020-02-06 11:21:00 74 mm[Hg] [facility] Heart rate 2020-02-06 11:21:00 80 /min [facility] Body temperature 2020-02-06 11:21:00 37.06 [facility] Respiratory rate 2020-02-06 11:21:00 18 /min [facility] Oxygen saturation in 2020-02-06 11:21:00 94 /min [facility] Arterial blood by Medical Ce nter Pulse oximetry Body weight 2020-02-05 06:35:00 120.929 kg [facility] BMI 2020-02-05 06:35:00 43.03 kg/m2 [facility] Body height 2020-02-04 22:00:00 167.6 cm [facility] Procedures Procedure Date / Time Performed Performing Clinician Elo rodriguez ARRYTHMIA IMPLANT REPORT 2020-02-20 13:41:29 Provider, Default [facility] - SCAN Scanning [facility] RHYTHM STRIP - SCAN 2020-02-08 09:00:23 Provider, Default [facility] ARRYTHMIA IMPLANT REPORT 2020-02-08 09:00:19 Provider, Default [facility] - SCAN Scanning [facility] CARDIAC CATH REPORT - 2020-02-08 09:00:17 Provider, Default [facility] TRANSFUSION SERVICE 2020-02-06 18:02:59 Provider, Default [facility] REPORT [facility] 2D ECHO W/ DOPPLER 2020-02-06 10:08:41 Fredrick Forrest [facility] (CW/PW/COLOR) [facility] POCT-GLUCOSE METER 2020-02-06 07:12:00 Timoteo Shipley [facility] CBC W/PLT COUNT & AUTO 2020-02-06 04:03:00 Lon [facility] DIFFERENTIAL [facility] BASIC METABOLIC PANEL 2020-02-06 04:02:00 Fredrick Forrest [facility] (7) [facility] MAGNESIUM 2020-02-06 04:02:[address] [facility] POCT-GLUCOSE METER 2020-02-05 22:25:00 Timoteo Shipley [facility] XR CHEST 1 VIEW 2020-02-05 17:51:00 Eduardo Chavez [facility] - PORTABLE/BEDSIDE [facility] POCT-GLUCOSE METER 2020-02-05 16:47:00 Timoteo Shipley [facility] AICD UPGRADE - SINGLE TO 2020-02-05 12:29:[address] [facility] DUAL CHAMBER SYSTEM Medical Cent er BLOOD GAS, ARTERIAL 2020-02-05 11:36:00 Dulce Wilde [facility] - [facility] ABORH, MANUAL 2020-02-05 08:59:00 Tiffanie Conner [facility] TYPE AND SCREEN, 2020-02-05 08:30:00 Eduardo Chavez [facility] - AUTOMATED [facility] XR CHEST 1 VIEW 2020-02-05 06:55:00 Dulce Wilde [facility] s - PORTABLE/BEDSIDE [facility] ECG 12-LEAD 2020-02-05 06:40:35 Unknown, Hl7 Doctor [facility] HEMOGLOBIN A1C 2020-02-05 01:23:[address] [facility] BLOOD GAS, VENOUS 2020-02-05 01:23:00 Fredrick Forrest [facility] CBC W/PLT COUNT & AUTO 2020-02-05 01:23:00 Lon [facility] DIFFERENTIAL [facility] BASIC METABOLIC PANEL 2020-02-05 01:22:00 Lon Fredrick Askew [facility] - (7) [facility] MAGNESIUM 2020-02-05 01:22:00 Lon Fredrick [facility] LIPID PANEL 2020-02-05 01:22:00 Fredrick Forrest [facility] SARS-COV2/RT-PCR ([facility] & 2020-02-03 20:16:00 [facility] REF LABS) [facility] Plan of Care Planned Activity Planned Date Details Comments Source Future Scheduled 2023-02-[address] [facility] - Test 00:00:00 (procedure) [code = Medical Center 73332911] Future Scheduled 2020-08-[address] [facility] - Test 00:00:[address] [facility] (procedure) [code = 50185608] Future Scheduled 2020-03-[address] [facility] - Test 00:00:00 (#1) [code = Medical Center INFLUENZA VACCINE (#1)] Future Scheduled 1975-09-[address] DIABETIC EYE EXAM [facility] - Test 00:00:00 [code = DIABETIC EYE Medical Center EXAM] Future Scheduled 1975-09-[address] [facility] - Test 00:00:00 examination Medical Center (regime/therapy) [code = 229359011] Future Scheduled 1975-09-07 Urine screening [facility] - Test 00:00:00 protein (procedure) Medical Center [code = 925857399] Future Scheduled [address] [facility] - Test 00:00:00 malignant neoplasm of Medica l Center colon (procedure) [code = 864726726] Encounters Start End Encounter Admission Attending Care Care Encounter Source Date/Time Date/Time Type Type Clinicians Facility Department ID 2020-06-19 2020-06-19 Telemed[facility] Care, Luis CONDON [id number] 08:48:06 09:18:06 ne Visit Primary [facility] [id number] [place] [id number] UNIT [id number] 2020-06-18 2020-06-18 Office Bernardo OHGAB [id number] 10:24:46 11:04:52 Visit Eunice Escamilla [id number] [place] [id number] [place] [id number] nal 059 Building Results Test Description Test Time Test Comments Results Result [facility] e Comments 2D Echo Ejection FractionSLEH [facility] W/Doppler(CW/PW/C 5 ECHO [facility] - Me dical olor) 18:17:02 [facility] CPACSInterface, External Ris In - 02/06/2020 6:17 PM CDTTransthoracic Echocardiography Report (TTE) Demographics Patient Name SAMMY VALLE Date of Study 02/06/2020 RU Gender Male Visit Number [id number] Race Unknown Room Number 636 Number Date of 1965 Referring [facility] Age 54 year(s) [place] 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 [address] [facility] 1538) [facility] 770 30: Technical Business Analyst/Techni vanita ID = [id number] for KENDRICK HAN Lab Interpretation (test code = Abnormal 75825-5) [facility] [id number] 07:29:00 Test Item Value Reference Range Interpretation Comments POC-GLUCOSE METER 131 mg/dL 70-110 H : TESTED A T [facility] 67[address] (BEAKER) (test code = BERTINDIA R [facility], 1538) [address]: Technical Business Analyst/Techni vanita ID = [id number] for PO KENDRICK VORA Basic metabolic [id number] 04:43:00 Test Item Value Reference Range Interpretation Comments Sodium (test code = 137 meq/L 734-821 5902-2) Potassium (test code = 4.4 meq/L 3.5-5.1 Speci men slightly 2823-3) hemolyzed Chloride (test code = 101 meq/L 98-107 5-0) CO2 (test code = 28 meq/L -8-9) BUN (test code = 13 mg/dL 7-21 3094-0) Creatinine (test code 0.73 mg/dL 0.57-1.25 Specim en slightly = 2160-0) hemolyzed Glucose (test code = 124 mg/dL 70-105 H 2345-7) Calcium (test code = 8.2 mg/dL 8.4-10.2 L 57109-5) EGFR (test code = 112 mL/min/1.73 [place] [address]-5) NOT ACCURATE CREATININE CLEARANCE IN PREDICTING GLOMERULAR FILTRATION RATE . ESTIMATED GFR I S NOT APPLICABLE FOR DIALYSIS PATIENTS. YOMI (test code = YOMI) Technical Business Analyst ID - NELLY W Lab Interpretation Abnormal (test code = 29202-3) [facility] 04:43[facility]00 Test Item Value Reference Range Interpretation Comments Magnesium (test code = 1.9 mg/dL 1.6-2.6 Speci men 81727-1) slightly hemolyzed YOMI (test code = YOMI) Technical Business Analyst ID - NELLY W Lab Interpretation Normal (test code = 02137-3) [facility] 04:43[facility]00 Test Item Value Reference Range Interpretation Comments MAGNESIUM (BEAKER) 1.9 mg/dL 1.6-2.6 Specimen slightly (test code = 627) hemolyzed Technical Business Analyst ID - NELLY WBASIC METABOLIC [id number] 04:43:00 Test Item Value Reference Range Interpretation [...] S NOT APPLICABLE FOR DIALYSIS PATIEN TS. Technical Business Analyst ID - NELLY WCBC with platelet count + automated [id number] 04:32:00 Test Item Value Reference Range Interpretation [...] 450 K/CU MM MPV (test code = 41007-6) 11.2 fL 9.4-12.4 nRBC (test code = [...] Granulocytes-Relative 0 % 0-1 (test code = 2805) Lab Interpretation (test code = Abnormal 20030-9) [facility] W/PLT COUNT & AUTO [id number] 04:32:00 Test Item Value Reference Range Interpretation [...] PERCENT (BEAKER) (test code = 2801) POCT-GLUCOSE [id number] 22:36:00 Test Item Value Reference Range Interpretation Comments POC-GLUCOSE METER 118 mg/dL 70-110 H : TESTED A T [facility] 6720 (BEAKER) (test code = [place], 1538) [address]: Technical Business Analyst/Techni vanita ID = [id number] for CA RPIO, RICARDO RAD, CHEST, 1 VIEW, NON [id number] 18:08:00Reason for exam:->Confirm pacemaker lead placementShould this [...] MDReport Verified Date/Time: 02/05/2020 18:08:29 Reading Location: [address] Transitional Reading Room XR chest 1 view portable / [id number] 18:08:00 Interface, External Ris In - 02/05/2020 [...] pneumothorax status post pacer placement.. Signed: Merritt Vincenteport Verified Date/Time: 02/05/2020 18:08:29 Reading Location: [address] Transitional Reading Room [facility] [id number] 17:06:00 Test Item Value Reference Range Interpretation Comments POC-GLUCOSE METER 91 mg/dL 70-110 : TESTED A T [facility] 6720 (BEAKER) (test code = RADHAINDIA Jossue YAR[place], 1538) [address]: Technical Business Analyst/Techni vanita ID = [id number] for JADYN DOMÍNGUEZ ECG 12 [id number] 13:06:41Interface, External Ris In - 02/05/2020 1:06 PM CDTVentricular Rate 64 BPMAtrial Rate 64 BPMP-R Interval 152 msQRS Duration 106 msQ-T Interval 380 msQTC Calculation(Bazett) 392 msP [place] 51 degreesR [place] 57 degreesT [place] -21 degreesNormal sinus rhythmIncomplete left bundle branch blockNonspecific ST and T wave abnormalityAbnormal ECGNo previous ECGs availableConfirmed by MD JHON, BLANQUITA ([id number]) on 02/05/2020 1:06:39 [facility] Beach[facility] gas, [id number] 11:49:00 Test Item Value Reference Range Interpretation [...] % Lab Interpretation (test code = Abnormal 83653-6) [facility], [id number] 11:49:00 Test Item Value Reference Range Interpretation [...] (test code = 1819) 21.0 % Hemoglobin [id number] 10:59:00 Test Item Value Reference Range Interpretation Comments Hemoglobin A1C (test code = 4548-4) 8.3 % 4.3-6.1 H Lab Interpretation (test code = Abnormal 49584-2) [facility]MO[facility] [id number] 10:59:00 Test Item Value Reference Range Interpretation Comments HEMOGLOBIN A1C (BEAKER) (test code = 8.3 % 4.3-6.1 H 368) ABORH, [id number] 09:54:00 Test Item Value Reference Range Interpretation Comments ABO Grouping (test code = 2588) AB Rh Factor (test code = 2589) POS [facility] CenterType and screen, [id number] 09:35:00 Test Item Value Reference Range Interpretation Comments ABO/RH AUTOMATED (BEAKER) (test AB POSITIVE code = 2260) Ab Scrn (test code = 890-4) NEGATIVE [facility] CenterRAD, [facility]ST, 1 VIEW, NON [id number] 07:14:00 Reason for exam:->hypoxiaShould this be performed at the bedside?->Yes FINAL REPORT RAD, CHEST, 1 VIEW, NON DEPT INDICATION: hypoxia COMPARISON: Prior day's exam FINDINGS: Portable frontal view of the chest. IMPRESSION: Support Lines: None Lungs and pleura: Clear lungs No pneumothorax.Heart and mediastinum: Unremarkable contours.Additional findings: None. Signed: JR Vaughn Robert MDReport Verified Date/Time: 02/05/2020 07:14:51 ReadingLocation: [facility] Reading Room Blood gas, venous 2020-02-05 02:00:00 Test Item Value Reference Range Interpretation Comments pH, Cuco (test code = 2746-6) 7.39 7.32-7.42 pCO2, Cuco (test code = 755) 52 41- 51 mmHg H pO2, Cuco (test code = 2705-2) 147 25- 40 mmHg H O2 Sat, Cuco (test code = 2711-0) 98.8 % 40-70 H HCO3, Cuco (test code = 14395-0) 30 mmol/L 21-29 H Base Excess, Cuco (test code = 4.3 mmol/L -2-3 H 1927-3) Patient Temperature (test code = 37.0 C 8310-5) FIO2 (test code = 1819) 21 % Lab Interpretation (test code = Abnormal 32625-2) [facility] CenterBL[facility], [id number] 02:00:00 Test Item Value Reference Range Interpretation [...] (test code = 1819) 21.0 % Lipid [id number] 01:56:00 Test Item Value Reference Range Interpretation Comments Triglycerides (test 119 mg/dL code = 2571-8) Cholesterol (test code 192 mg/dL = 2093-3) HDL (test code = 34 mg/dL 5-9) LDL Calculated (test 134 mg/dL code = 51865-9) YOMI (test code = YOMI) Triglyceride Reference Range: Low Risk <150 Borderline 150-199 High Risk 200-499 Very High Risk >=500 Cholesterol Reference Range: Low Risk <200 Borderline 200-239 High Risk >240 HDL Cholesterol Reference Range: Low Risk >=60 High Risk <40 LDL Cholesterol Reference Range: Optimal <100 Near Optimal 100-129 Borderline 130-159 High 160-189 Very High >=190 Technical Business Analyst ID - NELLY Loredo [facility] 01:56:00 Test Item Value Reference Range Interpretation Comments MAGNESIUM (BEAKER) (test code = 1.8 mg/dL 1.6-2.6 627) Technical Business Analyst ID Eunice VILLEGAS WBASIC METABOLIC [id number] 01:56:00 Test Item Value Reference Range Interpretation [...] S NOT APPLICABLE FOR DIALYSIS PATIEN TS. Technical Business Analyst ID Eunice VILLEGAS WLIPID [id number] 01:56:00 Test Item Value Reference Range Interpretation [...] Borderline 130-159 High 160-189 Very High >=190 Technical Business Analyst ID - DONNAWCBC W/PLT COUNT & AUTO [id number] 01:42:00 Test Item Value Reference Range Interpretation [...] PERCENT (BEAKER) (test code = 2801) SARS-CoV2/RT-PCR ([facility])2020-02-04 10:32:00 Test Item Value Reference Range Interpretation Comments SARS-COV2/RT-PCR Negative Not Detected, (test code = Negative, See 00106-9) external report for linked test SARS-COV-2 [facility] KYLIE PERFORMING LAB (test code = 99473-9) YOMI (test code = Negative result for this OYMI) test determines that SARS-CoV-2 RNA was not [...] of the Act. Fact Sheet for Healthcare Providers:https://www.[employer]/sites/default/f angelina/product/documents/F act_Sheet_HC_Providers_L xud_NKYY-AaA-7.pdf Fact Sheet for Healthcare Patients:https://www.[employer]/sites/default/fi les/product/documents/Fa ct_Sheet_Patients_Lyra_S ARS-CoV-2.pdf Performing Laboratory:[facility], [place] [address] [place], [place] [address]ARS-COV2/RT-PCR ([facility] & REF LABS)2020-02-04 10:32:00 Test Item Value Reference Range Interpretation Comments SARS-COV2/RT-PCR (test Negative Not Detected, Negative, code = 3405781) See external report for linked test SARS-COV-[address] [facility] KYLIE (test code = 8142836) Negative result for this test determines that [...] 564(g) of the Act.Fact Sheet for Healthcare Providers:https://www.[employer]a.[employer]/sites/default/files/product/documents/Fact_Shee c_MQ_Kuqlpbbhf_Iuaq_ORFA-NcV-5.pdfFact Sheet for Healthcare Patients:https://www.[employer]/sites/default/files/product/ documents/Zpkc_Kihhm_Oufvthij_Mkso_LKTV-MqO-3.pdfPerforming Laboratory:[facility] [place] [address]
--- OUTSIDE RECORDS SUMMARY | 2020-06-25 01:07 | XMS REPORT | Summary of Care ---
:1965 Author Organization [facility] Address [address] [place] [id number] Care Team Providers Name Role Phone JOSEFINA Lucero Primary Care Provider Reason for Visit Reason Comments Appointment Encounter Details Date Type Department Care Team Description 06/17/2020 Telephone [facility]ly [facility] Ekta Riley FNP Appointment [address] [place] [address] [place] [address] [phone] Allergies Active Allergy Reactions Severity Noted Date Comments Azithromycin Swelling High 08/11/2018 Throat swells Metoprolol Other - See comments 07/11/2018 Lowers heart rate too low documented as of this encounter (statuses as of 06/17/2020) Medications Medication Sig Dispensed Refills Start Date [...] as of this encounter (statuses as of 06/17/2020) Active Problems Problem Noted Date Pulmonary embolism [...] as of this encounter (statuses as of 06/17/2020) Immunizations Name Administration Dates Next Due Influenza [...] Telephone Encounter - Lilian Wesley LVN - 06/17/2020 9:56 AM CSTCall received from Clara Wagner requesting follow up visit for patient for post hospitalization at [facility] in [facility] for cough and difficulty breathing. Reports that patient's B/P was lower than normal, and patient has been having blackouts. States that heart cath was performed and was normal. Patient scheduled for provider telehealth visit on 06/19/2020 @ 0830. Provider notified of patient status. Request jorge luis visit to cardiology for follow up post hospitalization and symptoms. Azeb HINES notified for jorge luis appointment. 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 documented in this encounter Plan of Treatment Date Type Specialty Care Team Description 06/19/2020 Telemedicine Visit Family Medicine Ekta Lucero, JOSEFINA [address] [place], [place] [address] [place] 07/02/2020 Office Visit Cardiology Eunice Chang M D [address] [facility] [address] [place] [address]75 15 [phone] 08/28/2020 Office Visit Pulmonary Disease Mayela Funes DO [address] [place] [address] [phone] 11/11/2020 Office Visit Cardiology Eunice Chang M D [address] [facility] [address] [place], [place] [address] [phone] Health Maintenance Due Date Last Done Comments [...] of this encounter Implants Implanted Type Area Cutting And Creasing Press Operator Device Identifier Shelf Exp iration Model / Date Serial / L ot Pacemaker PACEMAKER documented as of this encounter Results Not on filedocumented in this encounter Insurance Payer Benefit Plan Subscriber ID Effective Phone Address Typ e / Group Dates ROSEANNA CO. I ROSEANNA DAVIS [id number] 2018-08/03 [phone] [facility] [address] [place] [address] ROSEANNA CONDON [id number] 2020-Pre [phone] PRIMARY CARE PRIMARY CARE sent [address] [place] [address] documented as of this encounter
--- OUTSIDE RECORDS SUMMARY | 2020-06-25 01:08 | XMS REPORT | Summary of Care ---
:1965 Author Organization [facility] - [facility] Address [address] [place] [address] Care Team Providers Name Role Phone JOSEFINA Lucero Primary Care Provider Reason for Visit Reason Comments Follow-up Hospital Follow up (Routine) Status Reason Specialty Diagnoses / Referred By Referred To Procedures Contact Contact New Request Cardiology Diagnoses HFU Ekta Lucero FNP Procedures CONSULT/REFERRAL CARDIOLOGY [address] [place] [address] Encounter Details Date Type Department Care Team Description 06/18/2020 Office Visit [facility] Eunice Chang M D Hypotension, Cardiology- [address] unspecified [address] hypot[address] type [address], [address] (Primary Dx) [place], [place] [address] [phone] Allergies Active Allergy Reactions Severity Noted Date Comments Azithromycin Swelling High 08/11/2018 Throat swells Metoprolol Other - See comments 07/11/2018 Lowers heart rate too low documented as of this encounter (statuses as of 06/18/2020) Medications Medication Sig Dispensed Refills Start Date [...] as of this encounter (statuses as of 06/18/2020) Active Problems Problem Noted Date Pulmonary embolism [...] as of this encounter (statuses as of 06/18/2020) Immunizations Name Administration Dates Next Due Influenza [...] Sign Reading Time Taken Comments Blood Pressure 126/71 06/18/2020 10:45 AM COOKER LOADER Pulse 99 06/18/2020 10:45 AM COOKER LOADER Temperature - - Respiratory Rate 19 06/18/2020 10:45 AM COOKER LOADER Oxygen Saturation - - Inhaled Oxygen Concentration - - Weight 121.1 kg (267 lb) 06/18/2020 10:45 AM COOKER LOADER Height 167.6 cm (5' 6") 06/18/2020 10:45 AM COOKER LOADER Body Mass Index 43.09 06/18/2020 10:45 AM COOKER LOADER documented in this encounter Progress Notes Eunice Chang MD - 06/18/2020 11:00 AM CST CARDIOLOGY CLINIC NOTE 05/14/2020 Reason for Referral/Presenting Complaint: s/p pacemaker chest pain PCP: Ekta Lucero History of Present Illness: Juan Miguel Langston is a 54 years old male with history of DM, HTN, HLD, non obstructive CAD, morbid obesity, BRIDGET not on C-PAP and smoking. Chronic chest pain for years. He had LHC in [facility] in 2016 showing non obstructive CAD. Apparently had LHC In [address] [facility]--no PCI done. He has daily chest pain. It is central and left sided sharp pain, radiating to the left arm, more so when lying flat, non exertional, actually less when walking. Associated with mild SOB. NTG does not help. In 02/[address] [facility] for several significant sinus pauses on telemetry, some measuring > 7 seconds in length, subsequently underwent Medtronic dual chamber pacemaker on 02/05/2020. 02/05/2020- implant of MDT DDD pacemaker via left subclavian vein Falls asleep easy. He went to [facility] for chest pain last week. Had a normal stress test. Chest pain is worse with body movement. Hospital last week for low BP in 90s All day [facility] 05/2019 EKG--Inferior [...] Current Outpatient Medications Medication Sig Dispense Refill amLODIPine 10 mg [...] file Gets together: Not on file Attends roman catholic service: Not on file Active member of [...] of Onset Coronary Heart Disease Mother of [place] at age 61 Diabetes Maternal Grandmother Physical Examination: BP 126/71 (BP Location: Right arm, Patient Position: Sitting, BP CUFF SIZE: Adult Large) | Pulse 99 | Resp 19 | Ht 5' 6" (1.676 m) | Wt 267 lb (121.1 kg) | BMI 43.09 kg/m Constitutional: alert and oriented x 3 [...] RCA. Non dominant vessel. LVEDP 20 Assessment/Plan: No diagnosis found. Sinus pause, s/p Medtronic pacemaker--Incision healing well. [...] 6 months Eunice Chang MD, FACC, DOROTHY Tugboat Mate, Division of Cardiology [facility] documented in this encounter Plan of Treatment Date Type Specialty Care Team Description 06/19/2020 Telemedicine Visit Family Medicine Ekta Lucero, TRANSIT PLANNER [address] [place] [place], [place] [id number] Care, Ang Primary 08/28/2020 Office Visit Pulmonary Disease Mayela Funes DO [address] [place] [phone] 11/11/2020 Office Visit Cardiology Eunice Chang M D [address] [facility] [address] [place], [place] [address] 12/17/2020 Office Visit Cardiology Eunice Chang M D [address] [facility] [address] [place], [place] [address] [phone] Health Maintenance Due Date Last Done Comments COLON CANCER SCREENING ANNUAL 09/07/2015 FIT/FOBT COLON CANCER SCREENING FIT DNA EVERY 09/07/2015 3 YEARS COLON CANCER SCREENING SIGMOIDOSCOPY 09/07/2015 EVERY 5 YEARS COLONOSCOPY 09/07/2015 Colorectal Cancer Screening 09/07/2015 Zoster Recombinant Vaccine (SHINGRIX) 06/15/2019 04/20/2019 (2 of 2) Depression Screening 06/18/2021 06/18/2020 DTaP,Tdap,and Td Vaccines (2 - Td) 04/20/2029 04/20/2019 PNEUMOCOCCAL 0-64 YEARS COMBINED Completed 04/20/2019, SERIES INFLUENZA VACCINE Completed 03/24/2020, 04/20/2019, 09/19/2013 documented as of this encounter Implants Implanted Type Area Manager Group Home Device Identifier Shelf Exp iration Model / Date Serial / L ot Pacemaker PACEMAKER documented as of this encounter Results Not on filedocumented in this encounter Visit Diagnoses Diagnosis Hypotension, unspecified hypotension typ e - Primary documented in this encounter Insurance Payer Benefit Plan Subscriber ID Effective Phone Address Typ e / Group Dates [employer] [place] [employer] [id number] 2018-08/03 [phone] [facility] [address] [place] [address] documented as of this encounter
--- OUTSIDE RECORDS SUMMARY | 2020-06-25 01:08 | XMS REPORT | Summary of Care ---
:1965 Author Organization [facility] - [facility] Address [address] [place] [address] Care Team Providers Name Role Phone JOSEFINA Lucero Primary Care Provider Reason for Visit Reason Comments Follow-up Hospital Follow up (Routine) Status Reason Specialty Diagnoses / Referred By Referred To Procedures Contact Contact New Request Cardiology Diagnoses HFU Ekta Lucero FNP Procedures CONSULT/REFERRAL CARDIOLOGY [address] [place] [address] Encounter Details Date Type Department Care Team Description 06/18/2020 Office Visit [facility] Eunice Chang M D Hypotension, Cardiology- [address] unspecified [address], [address] (Primary Dx) [place], [place] [address] [phone] Allergies Active Allergy Reactions Severity Noted Date [...] Comments Blood Pressure 126/71 06/18/2020 10:45 AM POWER GENERATION EQUIPMENT REPAIRER Pulse 99 06/18/2020 10:45 AM POWER GENERATION EQUIPMENT REPAIRER Temperature - - Respiratory Rate 19 06/18/2020 10:45 AM POWER GENERATION EQUIPMENT REPAIRER Oxygen Saturation - - Inhaled Oxygen Concentration - - Weight 121.1 kg (267 lb) 06/18/2020 10:45 AM POWER GENERATION EQUIPMENT REPAIRER Height 167.6 cm (5' 6") 06/18/2020 10:45 AM POWER GENERATION EQUIPMENT REPAIRER Body Mass Index 43.09 06/18/2020 10:45 AM POWER GENERATION EQUIPMENT REPAIRER documented in this encounter Progress Notes Eunice [...] pain for years. He had LHC in [facility] in 2016 showing non obstructive CAD. Apparently had LHC In 2017 in [facility]--no PCI done. He has daily chest pain. It is central and left sided sharp pain, radiating to the left arm, more so when lying flat, non exertional, actually less when walking. Associated with mild SOB. NTG does not help. In 02/2020 he was admitted in [facility] for several significant sinus pauses on telemetry, some measuring > 7 seconds in length, subsequently underwent Medtronic dual chamber pacemaker on 02/05/2020. 02/05/2020- implant of MDT DDD pacemaker via left subclavian vein Falls asleep easy. He went to [facility] for chest pain last week. Had a normal stress test. Chest pain is worse with body movement. Hospital last week for low BP in 90s All day [facility] 05/2019 EKG--Inferior ST depression ECHO--Normal LVEF [...] file Gets together: Not on file Attends religion service: Not on file Active member of [...] of Onset Coronary Heart Disease Mother of [place] at age 61 Diabetes Maternal Grandmother Physical [...] 6 months Eunice Chang MD, FACC, DOROTHY Cement Or Concrete Finishing Supervisor, Division of Cardiology [facility] documented in this encounter Plan of Treatment Date Type Specialty Care Team Description 06/19/2020 Telemedicine Visit Family Medicine Ekta Lucero, ORTHOPEDIC SHOE MAKER [address] [place], [place] [address] Care, Ang Primary 08/28/2020 Office Visit Pulmonary Disease Mayela Funes DO [address] [place] [phone] 11/11/2020 Office Visit Cardiology Eunice Chang M D [address] [facility] [address] [place], [place] [address] 12/17/2020 Office Visit Cardiology Eunice Chang M D [address] [facility] [address] [place], [place] [address] [phone] Health Maintenance Due Date Last Done Comments [...] this encounter Implants Implanted Type Area Music Industry Intern Device Identifier Shelf Exp iration Model / Date Serial / L ot Pacemaker PACEMAKER documented as of this encounter Results Not on filedocumented in this encounter Visit Diagnoses Diagnosis Hypotension, unspecified hypotension typ e - Primary documented in this encounter Insurance Payer Benefit Plan Subscriber ID Effective Phone Address Typ e / Group Dates [employer] [place] [id number] 2018-08/03 [phone] [facility] [address] [place] [address] documented as of this encounter
--- OUTSIDE RECORDS SUMMARY | 2020-06-25 01:09 | XMS REPORT | Summary of Care ---
:1965 Author Organization [facility] - [facility] Address [address] [place] [address] Care Team Providers Name Role Phone JOSEFINA Lucero Primary Care Provider Reason for Visit Reason Comments Follow-up Hospital Follow up (Routine) Status Reason Specialty Diagnoses / Referred By Referred To Procedures Contact Contact New Request Cardiology Diagnoses HFU Ekta Lucero FNP Procedures CONSULT/REFERRAL CARDIOLOGY [address] [place] [address] Encounter Details Date Type Department Care Team Description 06/18/2020 Office Visit [facility] Eunice Chang M D Syncope and collapse (Primary Dx); Cardiology- [address] Coronary artery disease invo lving hoonah coronary artery of [place]oon[place] heart without angina pectoris; [address] [place] [address] DRIVE Essential hypertension; Drive, [address] Mixed hyperlipidemia; [place], [place] [address] Morbid obesity with body mass index of 4 0.0-49.9; [id number] Pacemaker [phone] Allergies Active Allergy Reactions Severity Noted Date [...] Comments Blood Pressure 126/71 06/18/2020 10:45 AM SPINNER CONTINUOUS Pulse 99 06/18/2020 10:45 AM SPINNER CONTINUOUS Temperature - - Respiratory Rate 19 06/18/2020 10:45 AM SPINNER CONTINUOUS Oxygen Saturation - - Inhaled Oxygen Concentration - - Weight 121.1 kg (267 lb) 06/18/2020 10:45 AM SPINNER CONTINUOUS Height 167.6 cm (5' 6") 06/18/2020 10:45 AM SPINNER CONTINUOUS Body Mass Index 43.09 06/18/2020 10:45 AM SPINNER CONTINUOUS documented in this encounter Progress Notes Eunice Chang MD - 06/18/2020 11:00 AM CST CARDIOLOGY CLINIC NOTE 06/18/2020 Reason for Referral/Presenting Complaint: syncope PCP: Ekta Lucero History of Present Illness: Juan Miguel Langston is a 54 years old male with history of DM, HTN, HLD, non obstructive CAD, morbid obesity, BRIDGET not on C-PAP and smoking. Chronic chest pain for years. He had LHC in [facility] in 2016 showing non obstructive CAD. Apparently had LHC In [address] [facility]--no PCI done. He has daily chest pain. It is central and left sided sharp pain, radiating to the left arm, more so when lying flat, non exertional, actually less when walking. Associated with mild SOB. NTG does not help. In 02/2020 he was admitted in [facility] for several significant sinus pauses on telemetry, some measuring > 7 seconds in length, subsequently underwent Medtronic dual chamber pacemaker on 02/05/2020. 02/05/2020- implant of MDT DDD pacemaker via left subclavian vein Falls asleep easy. He went to [facility] for chest pain last week. Had a normal stress test. Chest pain is worse with body movement. In 06/2020 he had cough spells and passed out. He went to [facility]. LHC showed 50% RCA stenosis. iFR negative. [facility] 05/2019 EKG--Inferior ST depression ECHO--Normal LVEF Lexiscan nuc [facility] 06/2020--RCA 50% ECHO 02/2020 Left Ventricle LV endocardium is [...] for Pain (scale 7-10). 30 tablet 1 No current facility-administered medications for this visit. [...] file Gets together: Not on file Attends yazdanism service: Not on file Active member of [...] [place] at age 61 Diabetes Maternal Grandmother Physical [...] vessel. LVEDP 20 Assessment/Plan: ICD-10-CM ICD-9-CM 1. Syncope and collapse R55 780.2 2. Coronary artery disease involving hoonah coronary artery of hoonah heart without angina rkhvohtkL41.10 414.01 3. Essential hypertension I10 401.9 4. Mixed hyperlipidemia E78.2 272.2 5. Morbid obesity with body mass index of 40.0-49.9 E66.01 278.01 6. Pacemaker Z95.0 V45.01 Syncope--due to cough. Sinus pause, s/p Medtronic pacemaker--Will schedule a pacemaker check. Usual incisional care discussed. Chest pain--Non-cardiac. 5 C in last 5 years all showing no significant obstruction. Poor responseto NTG. Negative nuclear stress test. Will not pursue any cardiac testing. Non cardiac evaluation. Chest pain is worse with movement. CAD--Non obstructive. Continue ASA and livalo. HTN--Normal today. Advised to check regularly for adjustment. HLD--On livalo. HFpEF--Volume status is good. Possible HFpEF. Discussed low salt diet, weight loss and continue lasix. Patient was counseled for lifestyle modifications including: diet, exercise, weight loss and smokingcessation. RTC 6 months Eunice Chang MD, FACCDOROTHY Glass Artist, Division of Cardiology [facility] documented in this encounter Plan of Treatment Date Type Specialty Care Team Description 06/19/2020 Telemedicine Visit Family Medicine Ekta Lucero, INSOLE AND OUTSOLE SPLITTER [address] [place] [address] [phone] Care, Ang Primary 08/28/2020 Office Visit Pulmonary Disease Mayela Funes, [address] [place] [phone] 11/11/2020 Office Visit Cardiology Eunice Chang M D [address] [address] 12/17/2020 Office Visit Cardiology Eunice Chang M D [address] [address] Health Maintenance Due Date Last [...] of this encounter Implants Implanted Type Area Group Sales Manager Device Identifier Shelf Exp iration Model / Date Serial / L ot Pacemaker PACEMAKER documented as of this encounter Results Not on filedocumented in this encounter Visit Diagnoses Diagnosis Syncope and collapse - Primary Coronary artery disease involving hoonah coronary artery of hoonah heart without angina pectoris Essential hypertension Unspecified essential hypertension Mixed hyperlipidemia Morbid obesity with body mass index of 4 0.0-49.9 Pacemaker Cardiac pacemaker in situ documented in this encounter Insurance Payer Benefit Plan Subscriber ID Effective Phone Address Typ e / Group Dates [employer] [id number] 2018-08/03 [phone] [facility] [place] [address] documented as of this encounter
--- OUTSIDE RECORDS SUMMARY | 2020-06-25 01:09 | XMS REPORT | Summary of Care ---
:1965 Author Organization [facility] Address [address] [place] [address] Care Team Providers Name Role Phone JOSEFINA Lucero Primary Care Provider Encounter Details Date Type Department Care Team Description 06/19/2020 Telemedicine Visit [facility] Nic EktaJOSEFINA combs [address] [place] [address] Hospital discharge follow-up (Primary Dx ); [facility] Primary Syncope due to sick sinus syndrome; [facility] Dyspnea on exertion; [address] BRIDGET (obstruct warren sleep apnea); Street Homeless; [place], [place] Morbid obesity with body mass index of 40.0-49.9 [phone] Allergies Active Allergy Reactions Severity Noted Date Comments Azithromycin Swelling High 08/11/2018 Throat swells Metoprolol Other - See comments 07/11/2018 Lowers heart rate too low documented as of this encounter (statuses as of 06/19/2020) Medications Medication Sig Dispensed Refills Start Date [...] as of this encounter (statuses as of 06/19/2020) Active Problems Problem Noted Date Pulmonary embolism [...] as of this encounter (statuses as of 06/19/2020) Immunizations Name Administration Dates Next Due Influenza [...] on filedocumented in this encounter Progress Notes Ekta Lucero FNP - 06/19/2020 8:30 AM CST TELEMEDICINE VISIT Patient verbalized understanding that this would be a Telemedicine visit. Clarified that she could hear me prior to the exam. Before starting exam, all patient's questions/concerns about this Tele-medicine visit were addressed. Communication with patient was conducted via Telephone due to patient unable to obtain video call option. Location of Patient: Outside [facility] in [place] Location of Provider: home Date of Service: 06/19/2020 Chief Complaint: hospital follow up HPI: Juan Miguel Langston is a 54 year old male being seen today for hospital follow up due to multiple syncopal episodes over the last couple of weeks and continued chest pain. Was admitted to [facility] on 06/13/20 via EMS after a loss of consciousness with a coughing spell. Had cardiacwork up with with EKG which was normal. His ECHO noted retained Lt ventricular systolic function, his EF was 60-65% with trace MV and pulmonic valve regurgitation. They also did a LHC. Lt Main and LAD arteries were normal, Circumflex. LMI high OM has a mid to distal myocarial bridge, and the RCA noted a 40-50% stenosis at mid artery . LVEDP was 20. Pt discharged the next day. Seen by Dr Chang in cardiology yesterday who feels the episodes may be due to his chronic cough. He does have a sinus pause s/p pacemaker placement this summer. Dr Chang is going arrange for the pacer jet checked. The chest pain is ongoing deemed non-cardiac. The are not responsive to nitroglicerine. Troponins were negative during admission Pt was told that he needs the sleep study which is not covered through the Indigent program and thata C-pap machine could be obtained for about 350.00 but this doesn't include the equipment or supplies that go with the unit. I'm not sure if they realized that the patient is homeless [facility] and [place]. Today, at the time of the call, he was outside of the [facility] in [place] and has no plans to seek penitentiary elsewhere, thus electricity during the night time hours is limited His partner states that he had an episode of syncope yesterday that last 2-3 minutes after coughing. States his b/p was 158/91 this AM and BG was 111. Denies fevers or chills. Past Medical History: Diagnosis Date Arthritis CAD (coronary artery disease) RCA with 30-40% lesion Diabetes mellitus Heart murmur HLD (hyperlipidemia) HTN (hypertension) Obesity (BMI 30.0-34.9) Pacemaker February 2020 PE (pulmonary thromboembolism) Sinus pause up to 4.7 seconds at night during hospitalization in november 2013 Tobacco abuse MEDICATIONS: Outpatient Medications Marked as Taking for the 06/19/20 encounter (Telemedicine Visit) with Luis Butler Primary Medication Sig Dispense Refill amLODIPine 10 mg [...] tablet by mouth daily. 90 tablet 3 REVIEW OF SYSTEMS: All 12 points of ROS are negative except as HPI PHYSICAL EXAM: Telemedicine - unable to complete physical exam. General: patient alert and in no acute distress Constitutional: Oriented to person, place, and time Respiratory: No cough heard, no respiratory distress noted Psychiatric: alert, oriented, with appropriate affect Neurological: Alert and oriented to person, place, and time. ASSESSMENT/PLAN: 1. Hospital discharge follow-up Stay with the plan from Dr Chang and seen his in 6 months or sooner as indicated 2. Syncope due to sick sinus syndrome Have Pacer checked as planned 3. Dyspnea on exertion Encouraged to stop smoking and to take his inhaler as prescribed 4. BRIDGET (obstructive sleep apnea) Have reached out to the fur floor worker for [facility] who states the Cpap unit is not the major cost factorbut the supplies and cleaning equipment are very expensive and since he is homeless. The upkeep and access to electricity is problematic. 5. Homeless Pt declines to go to penitentiary or homeless center. States he doesn't have family support or plans to change his present situation 6. Morbid obesity with body mass index of 40.0-49.9 Encourage weight loss and better nutritional habits JOSEFINA العراقي ER warnings given. Barriers to care: None Ability to manage care: Good Follow up as we discussed or if ANY WORSE SYMPTOMS or SHORTNESS OF BREATH, CHEST PAINS/PRESSURE AND / OR REOCCURING FEVER, OR VOMITING - PLEASE SEEK MEDICAL ATTENTION. [place] [facility] urgent care [phone], as well as after hours care nurse access center available by calling [phone] 24 hours 7 days per week. Patient reports that all of her concerns have been addressed and all of her questions have been answered. No additional questions or concerns A total of 30 minutes spent on the telephone with the patient. documented in this encounter Plan of Treatment Date Type Specialty Care Team Description 08/28/2020 Office Visit Pulmonary Disease Funes AnastaciaDO sang [address] [place] [address] [phone] 12/17/2020 Office Visit Cardiology Eunice Chang M D [address] [place] [address] [place] [address] [phone] Health Maintenance Due Date Last Done Comments [...] of this encounter Implants Implanted Type Area Educational Interpreter Device Identifier Shelf Exp iration Model / Date Serial / L ot Pacemaker PACEMAKER documented as of this encounter Results Not on filedocumented in this encounter Visit Diagnoses Diagnosis Hospital discharge follow-up - Primary Other follow-up examination Syncope due to sick sinus syndrome Dyspnea on exertion Other dyspnea and respiratory abnormalit y BRIDGET (obstructive sleep apnea) Obstructive sleep apnea (adult) (pediatr ic) Homeless Lack of housing Morbid obesity with body mass index of 4 0.0-49.9 documented in this encounter
[2020-06-25 01:20] LABS: Protime INR 1.14
[2020-06-25 01:22] LABS: Absolute Lymphocytes (CBC) 1.5 K/uL (0.7-4.9); Basophils % 0.7 % (0-1.3); Hematocrit 39.3 % (39.6-49.0); Lymphocytes % 13.2 % (15.3-44.8); MPV 9.4 fL (7.6-11.3); RBC Red Blood Cell Count 4.79 M/uL (4.33-5.43)
[2020-06-25] MEDS ORDERED: NA CHLORIDE 0.9% 1,000 ML ONE (01:29)
[2020-06-25] MEDS ORDERED: MORPHINE 2 MG/ML SYR ONE (01:29)
[2020-06-25] MEDS ORDERED: FAMOTIDINE 20 MG/2 ML VIAL IV ONE (01:29)
[2020-06-25] MEDS ORDERED: ONDANSETRON 4 MG/2 ML VIAL ONE (01:29)
[2020-06-25 01:39] LABS: ALT/SGPT 70 U/L (12-78); AST/SGOT 24 U/L (15-37); Albumin 3.3 g/dL (3.4-5.0); Alkaline Phosphatase 47 U/L (45-117); BUN Blood Urea Nitrogen 19 mg/dL (7-18); Bicarbonate 30 mmol/L (21-32); Bilirubin Direct < 0.1 mg/dL (0-0.2); Bilirubin Total 0.1 mg/dL (0.2-1.0); Glucose Level 266 mg/dL (74-106); NT PRO-BNP 23 pg/mL (<125); Potassium 4.4 mmol/L (3.5-5.1); Protein, Total 6.9 g/dL (6.4-8.2); Sodium Level 138 mmol/L (136-145); Troponin (Emerg Dept Use Only) < 0.02 ng/mL (0.0-0.045)
--- NOTE | 2020-06-25 03:00 | ER ---
Nurse's Notes [facility] Name: Juan Miguel Langston Age: 54 yrs Sex: Male : 1965 Arrival Date: 06/25/2020 Time: 00:56 Bed 8 Private MD: Diagnosis: Fall due to bumping against object;Multiple fractures of ribs, right side-anterior 5th and 6th ribs;Tobacco abuse counseling;Tobacco use;Obesity, unspecified;Chronic obstructive pulmonary disease, unspecified Presentation: 06/25 00:59 Ebola Screen: No symptoms or risks identified at this time. Initial Sepsis Screen: Does rv the patient meet any 2 criteria? No. Patient's initial sepsis screen is negative. Does the patient have a suspected source of infection? No. Patient's initial sepsis screen is negative. Risk Assessment: Do you want to hurt yourself or someone else? Patient reports no desire to harm self or others. Onset of symptoms is unknown. 00:59 Method Of Arrival: EMS: [facility] rv 00:59 Acuity: DESTINY 3 rv 01:00 Chief complaint: EMS states: Reports pt was sleeping and had sudden difficulty ea breathing that woke him from his sleep, pt reports the right side of his chest hurts every time he inhales. Coronavirus screen: At this time, the client does not indicate any symptoms associated with coronavirus-19. Ebola Screen: No symptoms or risks identified at this time. Initial Sepsis Screen: Does the patient meet any 2 criteria? No. Patient's initial sepsis screen is negative. Does the patient have a suspected source of infection? No. Patient's initial sepsis screen is negative. Risk Assessment: Do you want to hurt yourself or someone else? Patient reports no desire to harm self or others. Onset of symptoms. 01:00 Method Of Arrival: EMS: [facility] ea 01:00 Acuity: DESTINY 3 ea Triage Assessment: 01:03 General: Appears comfortable, Behavior is calm, cooperative. Respiratory: Reports pain rv with respiration Onset: The symptoms/episode began/occurred today, the patient has mild shortness of breath. Historical: - Allergies: 01:02 Azithromycin; rv 01:02 Beta-Blockers (Beta-Adrenergic Bloc; rv 01:02 Demerol; rv 01:02 Metoprolol Tartrate; rv 01:03 Demerol; sg 01:03 Metoprolol Tartrate; sg 01:03 Beta-Blockers (Beta-Adrenergic Bloc; sg 01:03 Azithromycin; sg 01:03 Azithromycin; ea 01:03 Beta-Blockers (Beta-Adrenergic Bloc; ea 01:03 Demerol; ea 01:03 Metoprolol Tartrate; ea - PMHx: 01:02 Angina; COPD; Diabetes - NIDDM; High Cholesterol; Hypertension; Myocardial infarction; rv Sleep Apnea; 01:03 Angina; COPD; Diabetes - NIDDM; High Cholesterol; Hypertension; Myocardial infarction; sg Sleep Apnea; 01:03 Sleep Apnea; Myocardial infarction; Hypertension; High Cholesterol; Diabetes - NIDDM; ea COPD; Angina; - PSHx: 01:02 None; rv 01:03 pacemaker; sg 01:03 pacemaker; ea - Immunization history:: Adult Immunizations not up to date, Adult Immunizations up to date. - Social history:: Smoking status: unknown Smoking status: unknown. Screenin:00 Abuse screen: Denies threats or abuse. Nutritional screening: No deficits noted. ea Tuberculosis screening: No symptoms or risk factors identified. Fall Risk None identified. Assessment: 01:03 Pain: Complains of pain in chest. Cardiovascular: Patient's skin is warm and dry. rv Rhythm is regular. Respiratory: Airway is patent Respiratory effort is even, unlabored, Breath sounds are clear bilaterally. 02:22 Reassessment: Patient and/or family updated on plan of care and expected duration. Pain ea level reassessed. Pt resting with eyes closed, respirations even and unlabored, chest expansions even and symmetrical. 03:16 Reassessment: Daughter [id number]. ea Vital Signs: 00:59 BP 130 / 56; Pulse 92; Resp 14; Temp 97.9; Pulse Ox 96% on R/A; Weight 108.86 kg; rv 02:45 BP 146 / 50; Pulse 93; Resp 15; Pulse Ox 95% on R/A; rv ED Course: 00:56 Patient arrived in ED. cf2 00:59 Alex Gil RN is Primary Nurse. rv 01:00 Patient has correct armband on for positive identification. Placed in gown. Bed in low ea position. ski base trimmer on. Pulse ox on. NIBP on. 01:01 Lenard Rosario MD is Attending Physician. rambo 01:01 Triage completed. rv 01:02 Arm band placed on right wrist. Patient placed in an exam room, on a stretcher, on ea pulse oximetry. 01:10 Initial lab(s) drawn, by me, sent to lab. Inserted saline lock: 20 gauge in right rv antecubital area, using aseptic technique. Blood collected. 01:36 XRAY Chest (1 view) In Process Unspecified. EDMS 02:12 CT Chest, Abdomen, Pelvis - W/Contrast In Process Unspecified. EDMS 02:58 Jason Escobar MD is Referral Physician. rambo Administered Medications: 01:21 Drug: Pepcid 20 mg Route: IVP; Site: right antecubital; ea 02:46 Follow up: Response: No adverse reaction rv 01:22 Drug: NS 0.9% 1000 ml Route: IV; Rate: 125 ml/hr; Site: right antecubital; ea 01:22 Drug: morphine 2 mg Route: IVP; Site: right antecubital; ea 02:46 Follow up: Response: No adverse reaction rv 01:22 Drug: Zofran (Ondansetron) 4 mg Route: IVP; Site: right antecubital; ea 02:46 Follow up: Response: No adverse reaction rv Outcome: 02:59 Discharge ordered by . rambo 03:24 Patient left the ED. ea Signatures: Dispatcher [employer] Mehul Delong, Lenard Crook RN, MD MD cha Antunez, Elena RN Alex Cifuentes ea, RN RN rv Frazier, Celesta 2
--- NOTE | 2020-06-25 03:00 | EDPHYS ---
Physician Documentation [facility] Name: Juan Miguel Langston Age: 54 yrs Sex: Male : 1965 Arrival Date: 06/25/2020 Time: 00:56 Bed 8 Private MD: ED Physician Lenard Rosario HPI: 06/25 02:33 This 54 yrs old Male presents to ER via EMS with complaints of Breathing rambo Difficulty. 02:33 The patient has shortness of breath with light activity. Onset: The symptoms/episode rambo began/occurred just prior to arrival. Duration: The symptoms are continuous, and are steadily getting worse. Historical: - Allergies: 01:02 Azithromycin; rv 01:02 Beta-Blockers (Beta-Adrenergic Bloc; rv 01:02 Demerol; rv 01:02 Metoprolol Tartrate; rv 01:03 Demerol; sg 01:03 Metoprolol Tartrate; sg 01:03 Beta-Blockers (Beta-Adrenergic Bloc; sg 01:03 Azithromycin; sg 01:03 Azithromycin; ea 01:03 Beta-Blockers (Beta-Adrenergic Bloc; ea 01:03 Demerol; ea 01:03 Metoprolol Tartrate; ea - PMHx: 01:02 Angina; COPD; Diabetes - NIDDM; High Cholesterol; Hypertension; Myocardial infarction; rv Sleep Apnea; 01:03 Angina; COPD; Diabetes - NIDDM; High Cholesterol; Hypertension; Myocardial infarction; sg Sleep Apnea; 01:03 Sleep Apnea; Myocardial infarction; Hypertension; High Cholesterol; Diabetes - NIDDM; ea COPD; Angina; - PSHx: 01:02 None; rv 01:03 pacemaker; sg 01:03 pacemaker; ea - Immunization history:: Adult Immunizations not up to date, Adult Immunizations up to date. - Social history:: Smoking status: unknown Smoking status: unknown. ROS: 02:34 Constitutional: Negative for fever, chills, and weight loss, Eyes: Negative for injury, rambo pain, redness, and discharge, ENT: Negative for injury, pain, and discharge, Neck: Negative for injury, pain, and swelling, Abdomen/GI: Negative for abdominal pain, nausea, vomiting, diarrhea, and constipation, Back: Negative for injury and pain, : Negative for injury, bleeding, discharge, and swelling, MS/Extremity: Negative for injury and deformity, Skin: Negative for injury, rash, and discoloration, Neuro: Negative for headache, weakness, numbness, tingling, and seizure, Psych: Negative for depression, anxiety, suicide ideation, homicidal ideation, and hallucinations, Allergy/Immunology: Negative for hives, rash, and allergies, Endocrine: Negative for neck swelling, polydipsia, polyuria, polyphagia, and marked weight changes, Hematologic/Lymphatic: Negative for swollen nodes, abnormal bleeding, and unusual bruising. 02:34 Cardiovascular: Positive for chest pain, with cough, with movement, of the right lateral anterior chest and right lateral posterior chest. Exam: 02:34 Constitutional: This is a well developed, well nourished patient who is awake, alert, rambo and in no acute distress. Head/Face: Normocephalic, atraumatic. Eyes: Pupils equal round and reactive to light, extra-ocular motions intact. Lids and lashes normal. Conjunctiva and sclera are non-icteric and not injected. Cornea within normal limits. Periorbital areas with no swelling, redness, or edema. ENT: Nares patent. No nasal discharge, no septal abnormalities noted. Tympanic membranes are normal and external auditory canals are clear. Oropharynx with no redness, swelling, or masses, exudates, or evidence of obstruction, uvula midline. Mucous membranes moist. Neck: Trachea midline, no thyromegaly or masses palpated, and no cervical lymphadenopathy. Supple, full range of motion without nuchal rigidity, or vertebral point tenderness. No Meningismus. Chest/axilla: Normal chest wall appearance and motion. Nontender with no deformity. No lesions are appreciated. Cardiovascular: Regular rate and rhythm with a normal S1 and S2. No gallops, murmurs, or rubs. Normal PMI, no JVD. No pulse deficits. Abdomen/GI: Soft, non-tender, with normal bowel sounds. No distension or tympany. No guarding or rebound. No evidence of tenderness throughout. Back: No spinal tenderness. No costovertebral tenderness. Full range of motion. Male : Normal genitalia with no discharge or lesions. Skin: Warm, dry with normal turgor. Normal color with no rashes, no lesions, and no evidence of cellulitis. MS/ Extremity: Pulses equal, no cyanosis. Neurovascular intact. Full, normal range of motion. Neuro: Awake and alert, GCS 15, oriented to person, place, time, and situation. Cranial nerves II-XII grossly intact. Motor strength 5/5 in all extremities. Sensory grossly intact. Cerebellar exam normal. Normal gait. Psych: Awake, alert, with orientation to person, place and time. Behavior, mood, and affect are within normal limits. 02:34 Respiratory: mild respiratory distress is noted, Respirations: normal, no acute changes, Breath sounds: are clear throughout, rhonchi, Respiratory rate: 14 02:34 Musculoskeletal/extremity: Extremities: all appear grossly normal, with no appreciated pain with palpation, ROM: intact in all extremities, full active range of motion, full passive range of motion, Circulation is intact in all extremities. Pulses: Sensation intact. Compartment Syndrome exam of affected extremity: is normal. DVT Exam: No signs of deep vein thrombosis. no pain, no swelling, no tenderness, negative Homans' sign noted on exam, no appreciated bluish discoloration, no erythema, no increased warmth. Vital Signs: 00:59 BP 130 / 56; Pulse 92; Resp 14; Temp 97.9; Pulse Ox 96% on R/A; Weight 108.86 kg; rv 02:45 BP 146 / 50; Pulse 93; Resp 15; Pulse Ox 95% on R/A; rv MDM: 01:01 Patient medically screened. rambo 02:43 Differential diagnosis: Pneumothorax Unstable Angina Blunt Chest Trauma Chest Wall ramob Contusion Chest Wall Injury Pulmonary Contusion Rib Fracture. Antibiotic administration: Not indicated. Differential diagnosis: contusion, fracture, multiple trauma. The patient's Wells Deep Vein Thrombosis Score was calculated as follows: Total Score: 0-2 Pts- Low Risk. The patient's pulmonary embolism risk score was calculated as follows: Total Score: 0-2 points. This patient was found to be at low risk for a pulmonary embolism by using the Well's assessment criteria. Immunization status: Influenza vaccine:. Data reviewed: vital signs, nurses notes, lab test result(s), EKG, radiologic studies, CT scan, plain films. Data interpreted: property assessment monitor: rate is 92 beats/min, rhythm is regular, Pulse oximetry: on room air is 96 %. Test interpretation: by ED physician or midlevel provider: ECG, plain radiologic studies. Counseling: I had a detailed discussion with the patient and/or guardian regarding: the historical points, exam findings, and any diagnostic results supporting the discharge/admit diagnosis, lab results, radiology results, the need for outpatient follow up, for definitive care, a hand spray operator, a family practitioner. 06/25 01:03 Order name: Basic Metabolic Panel; Complete Time: 02:11 [facility] 06/25 01:03 Order name: CBC with Diff; Complete Time: 02:11 [facility] 06/25 01:03 Order name: LFT's; Complete Time: 02:11 [facility] 06/25 01:03 Order name: Magnesium; Complete Time: 02:11 [facility] 06/25 01:03 Order name: NT PRO-BNP; Complete Time: 02:11 [facility] 06/25 01:03 Order name: PT-INR; Complete Time: 02:11 [facility] 06/25 01:03 Order name: Troponin (emerg Dept Use Only); Complete Time: 02:11 [facility] 06/25 01:03 Order name: XRAY Chest (1 view) [facility] 06/25 01:03 Order name: CT Chest, Abdomen, Pelvis - W/Contrast [facility] 06/25 02:28 Order name: INCENTIVE SPIROMETRY [facility] 06/25 01:03 Order name: EKG; Complete Time: 01:04 [facility] 06/25 01:03 Order name: Cardiac monitoring; Complete Time: 02:00 [facility] 06/25 01:03 Order name: EKG - Nurse/Tech; Complete Time: 02:00 [facility] 06/25 01:03 Order name: IV Saline Lock; Complete Time: 02:00 [facility] 06/25 01:03 Order name: Labs collected and sent; Complete Time: 02:00 [facility] 06/25 01:03 Order name: O2 Per Protocol; Complete Time: 02:00 [facility] 06/25 01:03 Order name: O2 Sat Monitoring; Complete Time: 02:00 [facility] Administered Medications: 01:21 Drug: Pepcid 20 mg Route: IVP; Site: right antecubital; ea 02:46 Follow up: Response: No adverse reaction rv 01:22 Drug: NS 0.9% 1000 ml Route: IV; Rate: 125 ml/hr; Site: right antecubital; ea 01:22 Drug: morphine 2 mg Route: IVP; Site: right antecubital; ea 02:46 Follow up: Response: No adverse reaction rv 01:22 Drug: Zofran (Ondansetron) 4 mg Route: IVP; Site: right antecubital; ea 02:46 Follow up: Response: No adverse reaction rv Disposition: 06/25/20 02:59 Discharged to Home. Impression: Fall due to bumping against object, Multiple fractures of ribs, right side - anterior 5th and 6th ribs, Tobacco abuse counseling, Tobacco use, Obesity, unspecified, Chronic obstructive pulmonary disease, unspecified. - Condition is Stable. - Discharge Instructions: Chronic Bronchitis, How to Use an Inhaler, Obesity, Adult, Steps to Quit Smoking, Smoking Hazards, Steps to Quit Smoking, [id number], Fall Prevention in the Home, [id number], Cough, Adult, [id number], Obesity, Adult, [id number]. - Prescriptions for Motrin IB 200 mg Oral Tablet - take 2 tablet by ORAL route every 6 hours As needed as needed with food; 30 tablet. Albuterol Sulfate 90 mcg/actuation - inhale 1-2 puff by INHALATION route every 4-6 hours; 1 Inhaler. Tylenol- Codeine #3 300-30 mg Oral Tablet - take 2 tablets by ORAL route every 6 hours As needed; 20 tablet. - Medication Reconciliation Form, Thank You Letter, Antibiotic Education, Prescription Opioid Use form. - Follow up: Private Physician; When: 2 - 3 days; Reason: Recheck today's complaints, Continuance of care, Re-evaluation by your physician. Follow up: Jason Escobar MD; When: 2 - 3 days; Reason: Recheck today's complaints, Re-evaluation by your physician. - Problem is new. - Symptoms have improved. Signatures: Dispatcher [employer] EDMehul Valenzuela RN RN sg Anderson, Corey, MD MD cha Antunez, Elena RN Alex Cifuentes ea RN RN rv Corrections: (The following items were deleted from the chart) 03:24 02:59 06/25/2020 02:59 Discharged to Home. Impression: Fall due to bumping against ea object; Multiple fractures of ribs, right side - anterior 5th and 6th ribs; Tobacco abuse counseling; Tobacco use; Obesity, unspecified; Chronic obstructive pulmonary disease, unspecified. Condition is Stable. Forms are Medication Reconciliation Form, Thank You Letter, Antibiotic Education, Prescription Opioid Use. Follow up: Private Physician; When: 2 - 3 days; Reason: Recheck today's complaints, Continuance of care, Re-evaluation by your physician. Follow up: Dr. Jason Escobar; When: 2 - 3 days; Reason: Recheck today's complaints, Re-evaluation by your physician. Problem is new. Symptoms have improved. rambo
--- NOTE | 2020-06-25 09:06 | RAD REPORT ---
EXAM DESCRIPTION: RAD - Chest Single View - 06/25/2020 1:37 am CLINICAL HISTORY: Chest pain;Cough COMPARISON: June 13 TECHNIQUE: AP portable chest image was obtained 06/25/2020 1:37 am . FINDINGS: Lung volumes are low. No peripheral mass or consolidation. No significant failure or volum e overload. Low lung volumes and large body habitus accentuate the chest findings. Pacemaker remains in place. Heart and vasculature are normal. No measurable pleural effusion and no pneumothorax. No acute bony abnormality seen. No acute aortic findings suspected. IMPRESSION: Shallow inspiration portable study without acute cardiopulmonary finding. No significant change from comparison study.
--- NOTE | 2020-06-25 13:14 | RAD REPORT ---
EXAM DESCRIPTION: CT - Chest Abdomen Pelvis W Cont - 06/25/2020 6:38 am CLINICAL HISTORY: Chest pain;Pain COMPARISON: 06/13/2020 TECHNIQUE: CT of the chest, abdomen and pelvis performed following IV administration of iodinated co ntrast. FINDINGS: Chest: Thyroid: No abnormalities of the visualized thyroid. Great Vessels: Great vessels have normal anatomic configuration. Thoracic Aorta: Atherosclerotic calcification of the thoracic aorta. Heart is not enlarged. Pulmonary arteries: No central filling defects. Heart: Coronary artery atherosclerosis. No cardiomegaly or significant pericardial effusion. Left mul tilead generator. Lymph Nodes: No enlarged mediastinal lymph nodes identified. Esophagus: No abnormalities of the esophagus identified Other: No additional findings. Lungs: Stable 6 mm solid pulmonary nodule along the right minor fissure. Minimal bilateral dependent atelectasis. No confluent airspace consolidation. Motion artifact. Pleura: No pleural effusion or pneumothorax. Trachea/Airways: No abnormalities of the visualized trachea or airways. Abdomen: Liver: The liver has normal size and density. No intrahepatic mass or biliary dilatation. Gallbladder: No calcified gallstones. Spleen, Pancreas, and Adrenal Glands: The spleen, pancreas, and adrenal glands are unremarkable. Kidneys: The kidneys have normal size and contour without evidence of solid mass or hydronephrosis. Small bilateral renal cysts. Vasculature: Aortoiliac atherosclerosis. IVC is unremarkable. The portal vein is patent. The proxim al visceral and renal arteries are patent. Stomach: The stomach and duodenum have normal course. Other: No free intraperitoneal air. No free fluid or lymphadenopathy. Pelvis: Bladder: Urinary bladder is unremarkable. Bowel: No dilated loops of large or small bowel. Appendix: Normal appendix. Pelvis: Prostate is not enlarged. Bones: Multilevel endplate spondylosis and facet arthropathy throughout the visualized spine. Fractur es of the anterior right fifth and sixth ribs. Likely bone islands in the left ilium. IMPRESSION: 1. Acute minimally displaced fractures of the anterior right fifth and sixth ribs. 2. Coronary artery atherosclerosis. This exam was performed according to our departmental dose-optimization program, which includes autom ated exposure control, adjustment of the mA and/or kV according to patient size and/or use of iterati ve reconstruction technique. 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 The interpreting r adiologist is fully responsible for the content of the report.
[2020-06-25 15:45] VITALS: TEMP 97.9
[2020-06-25 15:46] VITALS: BP 146/50; O2SAT 95
== END 2020-06-25 03:24 | disposition home or self-care (01) ==
LOC: ER 00:55
DX: S22.41XA Multiple fractures of ribs, right side, initial encounter for closed fracture (principal); J44.9 Chronic obstructive pulmonary disease, unspecified; E66.9 Obesity, unspecified; Z72.0 Tobacco use; Z71.6 Tobacco abuse counseling; W18.00XA Striking against unspecified object with subsequent fall, initial encounter; Y93.9 Activity, unspecified; Y92.9 Unspecified place or not applicable; I10 Essential (primary) hypertension; Z88.1 Allergy status to other antibiotic agents; Z88.3 Allergy status to other anti-infective agents; Z88.5 Allergy status to narcotic agent; Z88.8 Allergy status to other drugs, medicaments and biological substances; Z95.0 Presence of cardiac pacemaker
CPT/HCPCS: 93005; 85025; 80048; 36415; 83735; 85610; 80076; 84484; 83880; 71260; 74177; 71045; 96375; 96374; 99284; Q9967; J2270; J7030; J2405

== ENCOUNTER 2020-06-26 08:47 | Emergency (ER) | payer OTHER ==
--- OUTSIDE RECORDS SUMMARY | 2020-06-26 08:50 | XMS REPORT | Continuity of Care Document ---
:1965 Author Organization [facility] t Address [address] [place] [address] Care Team Providers Name Role Phone Pcp MD Primary Care Physician Unavailable Nic ROCHA Attending Clinician Care, Primary Attending Clinician Unavailable Bernardo HAYWOOD Attending Clinician Juana Wilde MD Attending Clinician Ely Shipley MD Attending Clinician Kofi lEam MD Attending Clinician JUANA WILDE Attending Clinician [...] [facility]04 [facility] 00 [place] HLD HLD Disease Active [facility] (hyperlipi (hyperlipi 02-04 Melia kes - demia) demia) 00:00: Medical 00 Center Coronary Coronary Disease [facility] artery [facility] - disease disease 00:00: Medical 00 [place] BRIDGET BRIDGET Disease Active [facility] (obstructi (obstructi 02-04 Melia kes - ve sleep ve sleep 00:00: Medica l apnea) apnea) 00 Center Morbid Morbid Disease Active [facility] obesity obesity 02-04 [facility] - with BMI with BMI 00:00: Medica l of of 00 Center 40.0-44.9, 40.0-44.9, adult adult Syncope Syncope Disease Active [facility] due to due to 02-03 [facility] - sick sinus sick sinus 00:00: Me dical syndrome syndrome 00 [place] Sick sinus Sick sinus Disease Active [facility] syndrome syndrome [facility] [place] - due to SA due to SA 00:00: Medi ajith node node 00 [place] dysfunctio dysfunctio n n Homeless Homeless Disease Active [facility]03 [facility] - 00:00: Medical 00 Center Allergies, Adverse Reactions, Alerts This patient has no known allergies or adverse reactions. Social History Social Habit Start Date Stop Date Quantity Comments Source History [facility] - Alcohol Std Drinks [facility] History [facility] - Alcohol Binge Medical Olya ter Sex Assigned At [facility] Alcohol intake 2020-02-06 2020-02-06 Current [facility] es - 00:00:00 00:00:00 non-drinker of Medical Ce nter alcohol (finding) History [facility] 2020-02-04 2020-02-[address] [facility] - Alcohol Frequency 00:00:00 00:00:00 [facility] Center Smoking Status Start Date Stop Date Source Current every day smoker 2020-02-06 00:00:00 [facility] Medications Ordered Filled Start Stop Current Ordering Indication Dosage Frequency Signature Comments Components Source Medication Medication Date Date Medication? Clinician (SIG) Name Name lisinopriL 2020- No 5mg QD Take [address] [facility] [address] (PRINIVIL,Z 02-06 tablet (5 Melia kes - ESTRIL) 5 00:00: 23:59 mg total) Me dical MG tablet 00 :00 by mouth Center daily. aspirin 81 2020- No 81mg QD Take [address] [facility] MG chewable 02-06 tablet (81 L ukes - tablet 00:00: 23:59 mg total) Medic al 00 :00 by mouth Center daily. clopidogreL 75mg QD Take [address] [facility] St (PLAVIX) 75 02-05 tablet (75 L ukes - mg tablet 00:00: 23:59 mg total) Me dical 00 :00 by mouth Center daily. atorvastati 40mg QD Take [address] n [...] Source Systolic blood 2020-02-06 11:21:00 146 mm[Hg] [facility] Diastolic blood 2020-02-06 11:21:00 74 mm[Hg] [facility] Heart rate 2020-02-06 11:21:00 80 /min [facility] Body temperature 2020-02-06 11:21:00 37.06 Marianne [facility] Respiratory rate 2020-02-06 11:21:00 18 /min [facility] Oxygen saturation in 2020-02-06 11:21:00 94 /min [facility] Arterial blood by Medical Ce nter Pulse oximetry Body weight 2020-02-05 06:35:00 120.929 kg [facility] BMI 2020-02-05 06:35:00 43.03 kg/m2 [facility] Body height 2020-02-04 22:00:00 167.6 cm [facility] Procedures Procedure Date / Time Performed Performing Clinician Elo rodriguez ARRYTHMIA IMPLANT REPORT 2020-02-20 13:41:29 Provider, Default [facility] - - SCAN Scanning [facility] RHYTHM STRIP - SCAN 2020-02-08 09:00:23 Provider, Default [facility] ARRYTHMIA IMPLANT REPORT 2020-02-08 09:00:19 Provider, Default [facility] - [facility] CARDIAC CATH REPORT - 2020-02-08 09:00:17 Provider, Default [facility] TRANSFUSION SERVICE 2020-02-06 18:02:59 Provider, Default [facility] REPORT - [facility] 2D ECHO W/ DOPPLER 2020-02-06 10:08:[address] [facility] (CW/PW/COLOR) [facility] POCT-GLUCOSE METER 2020-02-06 07:12:00 Timoteo Shipley [facility] CBC W/PLT COUNT & AUTO 2020-02-06 04:03:00 Lon [facility] DIFFERENTIAL [facility] BASIC METABOLIC PANEL 2020-02-06 04:02:00 Fredrick Forrest [facility] - (7) [facility] MAGNESIUM 2020-02-06 04:02:[address] [facility] POCT-GLUCOSE METER 2020-02-05 22:25:00 Timoteo Shipley [facility] XR CHEST 1 VIEW 2020-02-05 17:51:00 Eduardo Chavez [facility] - PORTABLE/BEDSIDE [facility] POCT-GLUCOSE METER 2020-02-05 16:47:00 Timoteo Shipley [facility] AICD UPGRADE - SINGLE TO 2020-02-05 12:29:[address] [facility] DUAL CHAMBER SYSTEM Medical Cent er BLOOD GAS, ARTERIAL 2020-02-05 11:36:00 Dulce Wilde [facility] ABORH, MANUAL 2020-02-05 08:59:00 Tiffanie Conner [facility] TYPE AND SCREEN, 2020-02-05 08:30:00 Eduardo Chavez [facility] - AUTOMATED [facility] XR CHEST 1 VIEW 2020-02-05 06:55:00 Dulce Wilde [facility] s - PORTABLE/BEDSIDE [facility] ECG 12-LEAD 2020-02-05 06:40:35 Unknown, Hl7 Doctor [facility] HEMOGLOBIN A1C 2020-02-05 01:23:[address] [facility] BLOOD GAS, VENOUS 2020-02-05 01:23:[address] [facility] S t [facility] CBC W/PLT COUNT & AUTO 2020-02-05 01:23:00 [facility] DIFFERENTIAL [facility] BASIC METABOLIC PANEL 2020-02-05 01:22:00 LonFredrick [facility] (7) [facility] MAGNESIUM 2020-02-05 01:22:[address] [facility] Fredrick [facility] LIPID PANEL 2020-02-05 01:22:00 [facility] SARS-COV2/RT-PCR ([facility] & 2020-02-03 20:16:00 [facility] REF LABS) [facility] Plan of Care Planned Activity Planned Date Details Comments Source Future Scheduled 2023-02-[address] [facility] - Test 00:00:00 (procedure) [code = [facility] [id number]] Future Scheduled 2020-08-[address] Melia kes - Test 00:00:00 measurement [facility] (procedure) [code = 78005108] Future Scheduled 2020-03-[address] [facility] - Test 00:00:00 (#1) [code = [facility] INFLUENZA VACCINE (#1)] Future Scheduled 1975-09-[address] DIABETIC EYE EXAM [facility] - Test 00:00:00 [code = DIABETIC EYE [facility] EXAM] Future Scheduled 1975-09-[address] [facility] - Test 00:00:00 examination [facility] (regime/therapy) [code = 081071396] Future Scheduled 1975-09-07 Urine screening [facility] - Test 00:00:00 protein (procedure) [facility] [code = 669534083] Future Scheduled [address] [facility] - Test 00:00:00 malignant neoplasm of Medica l Center colon (procedure) [code = 658259837] Encounters Start End Encounter Admission Attending Care Care Encounter Source Date/Time Date/Time Type Type Clinicians Facility Department ID 2020-06-25 2020-06-25 Telephone Ekta Lucero [id number] 00:00:00 00:00:00 [facility] [id number] [facility] 4.2.7.2.686 UNIT [id number] 2020-06-19 2020-06-19 [facility], Luis CONDON [id number] 08:48:06 09:18:06 ne Visit [facility] [id number] [facility] 4.2.7.2.686 UNIT [id number] 2020-06-18 2020-06-18 Office Bernardo, [facility] [id number] 10:24:46 11:04:52 Visit uEnice Escamilla [id number] [place] 4.2.7.2.686 Professio [id number] nal 059 Building Results Test Description Test Time Test Comments Results Result [facility] e Comments 2D Echo Ejection FractionSLEH [facility] W/Doppler(CW/PW/C 5 ECHO HEART[facility] - [facility]) 18:17:02 [facility] CPACSInterface, External Ris In - 02/06/2020 6:17 PM CDTTransthoracic Echocardiography Report (TTE) Demographics Patient Name SAMMY VALLE Date of Study 02/06/2020 RU Gender Male Visit Number [id number] Race Unknown Room Number 636 Number Date of 1965 Referring [facility] Age 54 year(s) 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 ROSSY Kingston, RDCS,RVT,RDMS Cable Wirer Linda Rodriguez, Interpreting Nilda Myles MD RDCS [...] Test Item Value Reference Range Interpretation Comme [facility] POC-Glucose Meter (test code = 131 mg/dL 70-110 H : TESTED AT [facility] [address]) [facility] 30: Crew Caller/Techni vanita ID = [id number] for KENDRICK HAN Lab Interpretation (test code = Abnormal 65702-5) [facility]SE [id number] 07:29:00 Test Item Value Reference Range Interpretation Comments POC-GLUCOSE METER 131 mg/dL 70-110 H : TESTED A T [facility] [address] (BEJULIO CESAR) (test code = EVA Marcum [facility], 1538) [address]: Crew Caller/Techni vanita ID = [id number] for PO KENDRICK VORA Basic metabolic [id number] 04:43:00 Test Item Value Reference Range Interpretation Comments Sodium (test code = 137 meq/L 321-120 9457-2) Potassium (test code = 4.4 meq/L 3.5-5.1 Speci men slightly 2823-3) hemolyzed Chloride (test code = 101 meq/L 98-107 2075-0) CO2 (test code = 28 meq/L 22-29 2028-9) BUN (test code = 13 mg/dL 7-21 3094-0) Creatinine (test code 0.73 mg/dL 0.57-1.25 Specim en slightly = 2160-0) hemolyzed Glucose (test code = 124 mg/dL 70-105 H 2345-7) Calcium (test code = 8.2 mg/dL 8.4-10.2 L 83536-0) EGFR (test code = 112 mL/min/1.73 [place] [address]-4) NOT ACCURATE CREATININE CLEARANCE IN PREDICTING GLOMERULAR FILTRATION RATE . ESTIMATED GFR I S NOT APPLICABLE FOR DIALYSIS PATIENTS. YOMI (test code = YOMI) Crew Caller ID - NELLY W Lab Interpretation Abnormal (test code = 27977-6) [facility] 04[facility]00 Test Item Value Reference Range Interpretation Comments Magnesium (test code = 1.9 mg/dL 1.6-2.6 Speci men 75361-5) slightly hemolyzed YOMI (test code = YOMI) Crew Caller ID - NELLY W Lab Interpretation Normal (test code = 63692-3) [facility]2020-08-05 04:43:00 Test Item Value Reference Range Interpretation Comments MAGNESIUM (BEAKER) 1.9 mg/dL 1.6-2.6 Specimen slightly (test code = 627) hemolyzed Crew Caller ID - NELLY WBASIC METABOLIC [id number] 04:43:00 Test Item Value Reference Range Interpretation [...] S NOT APPLICABLE FOR DIALYSIS PATIEN TS. Crew Caller ID - NELLY WCBC with platelet count + automated [id number] 04:32:00 Test Item Value Reference Range Interpretation [...] 450 K/CU MM MPV (test code = 16268-1) 11.2 fL 9.4-12.4 nRBC (test code = [...] 2801) Lab Interpretation (test code = Abnormal 23152-4) [facility] W/PLT COUNT & AUTO [id number] 04:32:00 Test Item Value Reference Range Interpretation [...] PERCENT (BEAKER) (test code = 2801) POCT-GLUCOSE [id number] 22:36:00 Test Item Value Reference Range Interpretation Comments POC-GLUCOSE METER 118 mg/dL 70-110 H : TESTED A T [facility] [address] (BEAKER) (test code = RADHAINDIA Marcum [facility], 1538) [address]: Crew Caller/Techni vanita ID = [id number] for CA RPIO, RICARDO RAD, CHEST, 1 VIEW, NON [id number] 18:08:00Reason for exam:->Confirm pacemaker lead placementShould this [...] Vincent Verified Date/Time: 02/05/2020 18:08:29 Reading Location: [facility] C0[facility] Transitional Reading Room XR chest 1 view portable / [id number] 18:08:00 Interface, External Ris In - 02/05/2020 [...] Vincenteport Verified Date/Time: 02/05/2020 18:08:29 Reading Location: [address] Transitional Reading Room [facility] [id number] 17:06:00 Test Item Value Reference Range Interpretation Comments POC-GLUCOSE METER 91 mg/dL 70-110 : TESTED A T [facility] [address] ([facility]) (test code = EVA Jossue [facility], 1538) [address]: Crew Caller/Techni vanita ID = [id number] for JADYN DOMÍNGUEZ ECG 12 [id number] 13:06:41Interface, External Ris In - 02/05/2020 1:06 PM CDTVentricular Rate 64 BPMAtrial Rate 64 BPMP-R Interval 152 msQRS Duration 106 msQ-T Interval 380 msQTC Calculation(Bazett) 392 msP [place] 51 degreesR [place] 57 degreesT [place] -21 degreesNormal sinus rhythmIncomplete left bundle branch blockNonspecific ST and T wave abnormalityAbnormal ECGNo previous ECGs availableConfirmed by MD JHON, BLANQUITA ([id number]) on 02/05/2020 1:06:39 [facility], [id number] 11:49:00 Test Item Value Reference Range Interpretation Comments pH, Arterial (test code = 2744-1) 7.42 7.35-7.45 pCO2, Arterial (test code = 48 35- 45 mmHg H 2019-02) pO2, Arterial (test code = 2703-7) 70 80- 90 mmHg L O2 Sat, Arterial (test code = 94.8 % 96-97 L 2708-6) HCO3, Arterial (test code = 31 mmol/L 21-29 H 1959-4) Base Excess, Arterial (test code = 5.3 mmol/L -2-3 H 1925-7) Patient Temperature (test code = 36.3 C 8310-5) FIO2 (test code = 1819) 21 % Lab Interpretation (test code = Abnormal 50538-4) [facility] CampusBLOOD GAS, [id number] 11:49:00 Test Item Value Reference Range Interpretation [...] (test code = 1819) 21.0 % Hemoglobin [id number] 10:59:00 Test Item Value Reference Range Interpretation Comments Hemoglobin A1C (test code = 4548-4) 8.3 % 4.3-6.1 H Lab Interpretation (test code = Abnormal 31872-0) [facility] CampusHEMOGLOBIN [id number] 10:59:00 Test Item Value Reference Range Interpretation Comments HEMOGLOBIN A1C (BEAKER) (test code = 8.3 % 4.3-6.1 H 368) ABORH, [id number] 09:54:00 Test Item Value Reference Range Interpretation Comments ABO Grouping (test code = 2588) AB Rh Factor (test code = 2589) POS [facility] CampusType and screen, [id number] 09:35:00 Test Item Value Reference Range Interpretation Comments ABO/RH AUTOMATED (BEAKER) (test AB POSITIVE code = 2260) Ab Scrn (test code = 890-4) NEGATIVE [facility] CampusRAD, CHEST, 1 VIEW, NON [id number] 07:14:00 Reason for exam:->hypoxiaShould this be performed [...] 40-70 H HCO3, Cuco (test code = 66527-7) 30 mmol/L 21-29 H Base Excess, Cuco (test code = 4.3 mmol/L -2-3 H 1927-3) Patient Temperature (test code = 37.0 C 8310-5) FIO2 (test code = 1819) 21 % Lab Interpretation (test code = Abnormal 22205-4) [facility] CampusBLOOD GAS, [id number] 02:00:00 Test Item Value Reference Range Interpretation [...] (test code = 1819) 21.0 % Lipid [id number] 01:56:00 Test Item Value Reference Range Interpretation Comments Triglycerides (test 119 mg/dL code = 2571-8) Cholesterol (test code 192 mg/dL = 2093-3) HDL (test code = 34 mg/dL 5-9) LDL Calculated (test 134 mg/dL code = 27769-1) YOMI (test code = YOMI) Triglyceride Reference Range: Low Risk <150 Borderline 150-199 High Risk 200-499 Very High Risk >=500 Cholesterol Reference Range: Low Risk <200 Borderline 200-239 High Risk >240 HDL Cholesterol Reference Range: Low Risk >=60 High Risk <40 LDL Cholesterol Reference Range: Optimal <100 Near Optimal 100-129 Borderline 130-159 High 160-189 Very High >=190 Crew Caller ID Eunice VILLEGAS W [facility] CampusMAGNESIUM2020-08-04 01:56:00 Test Item Value Reference Range Interpretation Comments MAGNESIUM (BEAKER) (test code = 1.8 mg/dL 1.6-2.6 627) Crew Caller ID Eunice VILLEGAS WBASIC METABOLIC [id number] 01:56:00 Test Item Value Reference Range Interpretation [...] S NOT APPLICABLE FOR DIALYSIS PATIEN TS. Crew Caller ID - NELLY WLIPID [id number] 01:56:00 Test Item Value Reference Range Interpretation [...] Borderline 130-159 High 160-189 Very High >=190 Crew Caller ID - TROYNAWCBC W/PLT COUNT & AUTO [id number] 01:42:00 Test Item Value Reference Range Interpretation [...] PERCENT (BEAKER) (test code = 2801) SARS-CoV2/RT-PCR ([facility] & Ref Labs)2020-02-04 10:32:00 Test Item Value Reference Range Interpretation Comments SARS-COV2/RT-PCR Negative Not Detected, (test code = Negative, See 66639-8) external report for linked test SARS-COV-2 [facility] KYLIE PERFORMING LAB (test code = 40769-3) YOMI (test code = Negative result for [...] of the Act. Fact Sheet for Healthcare Providers:https://www.Endorse.me/sites/default/f angelina/product/documents/F act_Sheet_HC_Providers_L rmt_TDRX-YlV-0.pdf Fact Sheet for Healthcare Patients:https://www.ABPathfinder/sites/default/fi les/product/documents/Fa ct_Sheet_Patients_Lyra_S ARS-CoV-2.pdf Performing Laboratory:[facility], [place] [address] [place], [place] [address]ARS-COV2/RT-PCR ([facility] & REF LABS)2020-02-04 10:32:00 Test Item Value Reference Range Interpretation Comments SARS-COV2/RT-PCR (test Negative Not Detected, Negative, code = 1275169) See external report for linked test SARS-COV-2 PERFORMING LAB [facility] KYLIE (test code = 3312533) Negative result for this test determines that [...] 564(g) of the Act.Fact Sheet for Healthcare Providers:https://www.iFLYER.com/sites/default/files/product/documents/Fact_Shee n_VB_Dxaqbtmua_Qsga_TOGT-VpA-3.pdfFact Sheet for Healthcare Patients:https://www.iFLYER.com/sites/default/files/product/ documents/Vsju_Xfojx_Ltvgdjvm_Edwk_VXST-ImS-8.pdfPerforming Laboratory:[facility] [place] [address]
--- OUTSIDE RECORDS SUMMARY | 2020-06-26 08:50 | XMS REPORT | Clinical Summary ---
:1965 Author Organization [facility] Address [address] [place] [address] Care Team Providers Name Role Phone Pcp, [...] Reilly MD 02/03/2020 Lab Requisition Lab after 06/26/2019 Social History Tobacco Use Types Packs/Day Years [...] Completed 04/20/2019, 2013 Implants Implanted Type Area Brass Bobbin Winder Device Identifier Shelf Model / Expiration Serial / Date Lot Lead Pacemkr Cecily [place] 52x1 [id number] - [id number] PACEMAKER/I [employer]:CARD [id number] 09/27/2021 [id number] / Implanted: Qty: 1 on 02/05/2020 by Prem Herron MD at [facility] CD CHAMBER RHY:DISEASE MGT [id number] / DEVICE Description:Ventricular Lead Lead Pacemkr Cecily Tovar 45x1 [id number] - [id number] PACEMAKER/IC D [employer]TR[employer]:CARD [id number] 08/28/2021 [id number] / Implanted: Qty: 1 on 02/05/2020 by Prem Herron MD at [facility] CHAMBER DEVICE RHY:DISEASE MGT [id number] / Description:Atrial Lead Pacemkr [place] Xtdr Mri Ipg [id number] - [id number] PACEMAKER/ICD MEDTRON[employer]:CARD [id number] 05/31/2021 [id number] / Implanted: Qty: 1 on 02/05/2020 by Prem Herron MD at [facility] CHAMBER DEVICE RHY:PACING SYS [id number] / Description:Chest Procedures Procedure Name Priority Date/Time [...] 380 ms QTC Calculation(Bazett) 392 ms P [place] 51 degrees R [place] 57 degrees T [place] -21 degrees Normal sinus rhythm Incomplete left [...] i n the results section . after 06/26/2019 Results ARRYTHMIA IMPLANT REPORT - SCAN (02/20/2020 [...] AM CDT) Pathologist Sig nature Ejection Fraction [facility] Specimen Narrative Performed At Transthoracic Echocardiography Report (T TE) [facility] Demographics Patient Name JUAN MIGUEL VALLE Date of Study 02/06/2020 RU Gender Male Visit Number [id number] Race Unknown Room Number 636 Number Date of 1965 Referring Fredrick Forrest Physician Age 54 year(s) Arabic Translator Lilia Kingston, RDCS,RVT,RDMS [employer] Stock[employer] Supervisor Linda Rodriguez, Interpreting Nilda Myles MD [facility] Physician Procedure Type of Study TTE procedure:2DECHO [...] Study 02/06/2020 RU Gender Male Visit Number [id number] Race Unknown Room Num [place] [id number] Number Date of 1965 Justin Mockcherrifantasma Physicia n Age 54 year(s) Sonograp her Rubens Jurado, NB, RDCS,RVT,RDMS [employer] Stock[employer] Supervisor Anthony Lezama MD RDCS Physicia n Procedure [...] TR Gradient: 23.87 mmHg Performing Organization Address City/[facility] Phone Number [facility] ECHO HEARTLAB MKCKESSON CPACS POC-Glucose meter (02/06/2020 7:12 AM CDT)Only the most recent of3 results within the time period is included. POC-Glucose Meter 131 (H)Comment: 70 - 110 mg/dL [facility] : TESTED AT [address], [address]: Pipe Foreman/Technic oswaldo ID = [id number] for KENDRICK HAN Specimen Blood Performing Organization Address [facility] Phone Number [place] [phone] CENTER CBC with platelet count + automated diff (02/06/2020 4:03 AM CDT)Only the most recent of2 resultswithin the time period is included. Pathologist Sig nature WBC 8.1 3.5 - 10.5 [facility] K/L [facility] RBC 5.09 4.63 - 6.08 [facility] M/L [facility] Hemoglobin 13.5 (L) 13.7 - 17.5 [facility] GM/DL [facility] Hematocrit 45.1 40.1 - 51.0 % [facility] MCV 88.6 79.0 - 92.2 fL [facility] MCH 26.5 25.7 - 32.2 pg [facility] MCHC 29.9 (L) 32.3 - 36.5 [facility] GM/DL [facility] RDW 15.9 (H) 11.6 - 14.4 % [facility] Platelets 265 150 - 450 K/CU [facility] MPV 11.2 9.4 - 12.4 fL [facility] nRBC 0 0 - 0 /100 WBC [facility] % Neutros 65 % [facility] % Lymphs 24 % [facility] % Monos 9 % [facility] % Eos 1 % [facility] % Baso 0 % [facility] # Neutros 5.27 1.78 - 5.38 [facility] # Lymphs 1.96 1.32 - 3.57 [facility] # Monos 0.69 0.30 - 0.82 [facility] # Eos 0.08 0.04 - 0.54 [facility] # Baso 0.03 0.01 - 0.08 [facility] Immature 0 0 - 1 % [facility] Specimen Blood Performing Organization Address City/State/Zipcode Phone Number [facility] [address] [place] [address] CENTER Magnesium (02/06/2020 4:02 AM CDT)Only the most recent of2 resultswithin the time period is included. Pathologist Sig nature Magnesium 1.9Comment: Specimen 1.6 - 2.6 mg/dL [facility] slightly hemolyzed [facility] Specimen Blood Narrative Performed At Pipe Foreman ID - NELLY Loredo [facility] Performing Organization Address [facility] Phone Number [facility] [address] [place] [address] CENTER Basic metabolic panel (02/06/2020 4:02 AM CDT)Only the most recent of2 results within the time period is included. Sodium 137 136 - 145 meq/L [facility] Potassium 4.4Comment: Specimen 3.5 - 5.1 meq/L [facility] Chloride 101 98 - 107 meq/L [facility] CO2 28 22 - 29 meq/L [facility] BUN 13 7 - 21 mg/dL [facility] Creatinine 0.73Comment: 0.57 - 1.25 [facility] Specimen slightly mg/dL [facility] hemolyzed [place] Glucose 124 (H) 70 - 105 mg/dL [facility] Calcium 8.2 (L) 8.4 - 10.2 [facility] mg/dL [facility] EGFR 112Comment: mL/min/1.[address] [facility] ESTIMATED GFR IS NOT [facility] ACCURATE [place] CREATININE CLEARANCE IN PREDICTING GLOMERULAR FILTRATION RATE. ESTIMATED GFR IS NOT APPLICABLE FOR DIALYSIS PATIENTS. Specimen Blood Narrative Performed At Pipe Foreman ID - NELLY Loredo [facility] Performing Organization Address City/[facility]/Zipcode Phone Number [facility] [address] [place] [address] [place] XR chest 1 view portable / bedside [...] Report Verified Date/Time: 02/05/2020 18:08:29 Reading Location: [address] Reading Room Procedure Note Interface, External [...] Verified Date/Time: 02/05/2020 1 8:08:29 Reading Location: [facility] [address] [place] [address] Reading Room Performing Organization Address City/State/Zipcode Phone Number [facility] Blood gas, arterial (02/05/2020 11:36 AM CDT) Pathologist Sig nature pH, Arterial 7.42 7.35 - 7.45 [facility] pCO2, Arterial 48 (H) 35 - 45 mmHg [facility] pO2, Arterial 70 (L) 80 - 90 mmHg [facility] O2 Sat, Arterial 94.8 (L) 96.0 - 97.0 % [facility] HCO3, Arterial 31 (H) 21 - 29 mmol/L [facility] Base Excess, Arterial 5.3 (H) -2.0 - 3.0 [facility] mmol/L [facility] Patient Temperature 36.3 C [facility] FIO2 21.0 % [facility] Specimen Blood, Arterial Performing Organization Address City/[facility] Cent[facility]ode Phone Number [address] [address] CENTER ABORH, manual (02/05/2020 8:59 AM CDT) Pathologist Sig nature ABO Grouping AB [facility] Rh Factor POS [facility] Specimen Blood Performing Organization Address [facility] Phone Number [address] [address] Type and screen, automated (02/05/2020 8:30 AM CDT) Pathologist Sig nature ABO/RH AUTOMATED AB POSITIVE [facility] Ab Scrn NEGATIVE [facility] Specimen Blood Performing Organization Address [facility] Phone Number [address] [address] ECG 12 lead (02/05/2020 6:40 AM CDT) Specimen Narrative Performed At Ventricular Rate 64 BPM GE MUSE Atrial Rate 64 BPM P-R Interval 152 ms QRS Duration 106 ms Q-T Interval 380 ms QTC Calculation(Bazett) 392 ms P [place] 51 degrees R [place] 57 degrees T [place] -21 degrees Normal sinus rhythm Incomplete left [...] 380 ms QTC Calculation(Bazett) 392 ms P [place] 51 degrees R [place] 57 degrees T [place] -21 degrees Normal sinus rhythm Incomplete left bundle branch block Nonspecific ST and T wave abnormality Abnormal ECG No previous ECGs available Confirmed by MD JHON, BLANQUITA ([id number]) on 02/05/2020 1:06:39 PM Performing Organization Address City/[facility] Cent[facility] Phone Number MUSE Hemoglobin A1c (02/05/2020 1:23 AM CDT) Pathologist Sig nature Hemoglobin A1C 8.3 (H) 4.3 - 6.1 % [facility] Specimen Blood Performing Organization Address [facility] Phone Number [address] [address] [place] Blood gas, venous (02/05/2020 1:23 AM CDT) Pathologist Sig nature pH, Cuco 7.39 7.32 - 7.42 [facility] pCO2, C[place]o 52 (H) 41 - 51 mmHg [facility] pO2, [place] 147 (H) 25 - 40 mmHg [facility] O2 Sat, C[place] 98.8 (H) 40.0 - 70.0 % [facility] HCO3, C[place]o 30 (H) 21 - 29 mmol/L [facility] Base Excess, Cuco 4.3 (H) -2.0 - 3.0 [facility] mmol/L [facility] Patient Temperature 37.0 C [facility] FIO2 21.0 % [facility] Specimen Blood Performing Organization Address [facility] Phone Number [facility] [address] [place] [address] [place] Lipid panel (02/05/2020 1:22 AM CDT) Pathologist Sig nature Triglycerides 119 mg/dL [facility] ME DICAL [place] Cholesterol 192 mg/dL [facility] HDL 34 mg/dL [facility] LDL Calculated 134 mg/dL [facility] ED[facility] [place] Specimen Blood Narrative Performed At Triglyceride Reference Range: [facility] Low Risk <150 Borderline 150-199 High Risk 200-499 Very High Risk >=500 Cholesterol Reference Range: Low Risk <200 Borderline 200-239 High Risk >240 HDL Cholesterol Reference Range: Low Risk >=60 High Risk <40 LDL Cholesterol Reference Range: Optimal <100 Near Optimal 100-129 Borderline 130-159 High 160-189 Very High >=190 Pipe Foreman ID - NELLY W Performing Organization Address City/State/Zipcode Phone Number [facility] [address] [place] [address] CENTER SARS-CoV2/RT-PCR ([facility] Ref Labs) (02/03/2020 8:16 PM CDT) SARS-COV2/RT-PCR Negative Not Detected, [facility] Negative, See [facility] external report CENTER for linked test SARS-COV-2 [facility] PERFORMING LAB [facility] Specimen Other - Nasopharyngeal wall structure (b yinka structure) Narrative Performed At Negative result for this test determines that [facility] SARS-CoV-2 RNA was not [...] the Act. Fact Sheet for Healthcare Providers: https://www.Present/sites/default/files/pro duct/documents/Fact_Sheet_HC_Providers_Lyra_SA RS-CoV-2.pdf Fact Sheet for Healthcare Patients: https://www.Present/sites/default/files/pro duct/documents/Fact_Sheet_Patients_Lyra_SARS-C oV-2.pdf Performing Laboratory: [place] [address] Performing Organization Address City/State/[place] [address] CENTER after 06/26/2019 Advance Directives For more information, please contact: [phone] Code Status Date Activated Date Inactivated Comments Full Code 02/04/2020 11:59 PM 02/06/2020 5:54 PM This code status was determined by: Patient
--- OUTSIDE RECORDS SUMMARY | 2020-06-26 08:55 | XMS REPORT | Summary of Care ---
:1965 Author Organization [facility] Address [address] [place] [address] Care Team Providers Name Role Phone JOSEFINA Lucero Primary Care Provider Reason for Visit Reason Comments Fall Encounter Details Date Type Department Care Team Description 06/25/2020 Telephone [facility] Ekta Riley FNP [address] [place] [address] [place] [phone] Allergies Active Allergy Reactions Severity Noted Date Comments Azithromycin Swelling High 08/11/2018 Throat swells Metoprolol Other - See comments 07/11/2018 Lowers heart rate too low documented as of this encounter (statuses as of 06/25/2020) Medications Medication Sig Dispensed Refills Start Date [...] as of this encounter (statuses as of 06/25/2020) Active Problems Problem Noted Date Pulmonary embolism [...] as of this encounter (statuses as of 06/25/2020) Immunizations Name Administration Dates Next Due Influenza [...] Telephone Encounter - Lilian Wesley LVN - 06/25/2020 3:50 PM CSTReturn call placed to patient regarding voice message concerning recent hospital visit due to fall. Spoke with Davonte Wagner, states that patient went to [facility] on Tuesday and Tuesday, status post fall from chair after he fell asleep , while sitting at table. Reports that patient fractured his nose and 2 ribs. Patient scheduled for follow up telehealth visit on 07/10/2020. Patient status routed to chikis trotter. documented in this encounter Plan of Treatment Date Type Specialty Care Team Description 07/10/2020 Telemedicine Visit Family Medicine Ekta Lucero, JOSEFINA [address] [place] [address] [phone] Luis Butler 08/28/2020 Office Visit Pulmonary Disease Mayela Funes DO [address] [place] [phone] 12/17/2020 Office Visit Cardiology Eunice Chang M D [address] [place], [place] [address] 15 Health Maintenance Due Date Last Done [...] of this encounter Implants Implanted Type Area Gsa Coordinator Device Identifier Shelf Exp iration Model / Date Serial / L ot Pacemaker PACEMAKER documented as of this encounter Results Not on filedocumented in this encounter Insurance Payer Benefit Plan Subscriber ID Effective Phone Address Typ e / Group Dates ROSEANNA [place]. I ROSEANNA COShelby [id number] 2018-08/03 [phone] [facility] [address] [place] [address] ROSEANNA CONDON [id number] 2020-Pre [phone] PRIMARY CARE PRIMARY CARE sent [address] [place] [id number] documented as of this encounter
[2020-06-26] MEDS ORDERED: HYDROCODONE/APAP 10/325 TAB ONE (10:08)
[2020-06-26] MEDS ORDERED: IPRATROPIUM BROM 0.5MG/2.5ML ONE (10:08)
[2020-06-26] MEDS ORDERED: LEVALBUTEROL 1.25 MG/3 ML NEB ONE ×2 (10:09→10:11)
--- NOTE | 2020-06-26 10:20 | RAD REPORT ---
EXAM DESCRIPTION: Jayda Single View06/26/2020 10:03 am CLINICAL HISTORY: Chest pain COMPARISON: June 25, 2020 FINDINGS: The lungs appear clear of acute infiltrate. The heart is normal size. Pacemaker leads in place. Minimally displaced fractures involving right anterior fifth and six ribs
--- NOTE | 2020-06-26 10:34 | EDPHYS ---
Physician Documentation [facility] Name: Juan Miguel Langston Age: 54 yrs Sex: Male : 1965 Arrival Date: 06/26/2020 Time: 08:48 Bed 20 Private MD: ED Physician Lenard Rosario HPI: 06/26 09:54 This 54 yrs old Male presents to ER via EMS with complaints of Abdominal Pain.rambo 09:54 The patient presents with abdominal pain. Onset: The symptoms/episode began/occurred 2 rambo day(s) ago. The patient or guardian reports chest pain that is located primarily in the anterior chest wall. Onset: The symptoms/episode began/occurred 2 day(s) ago. The pain does not radiate. Associated signs and symptoms: Pertinent positives: cough, shortness of breath. The chest pain is described as sharp, stabbing. Modifying factors: The symptoms are alleviated by remaining still, the symptoms are aggravated by cough, deep breath, exertion, movement, palpation of area, twisting torso. Severity of pain: At its worst the pain was moderate in the emergency department the pain is unchanged. Historical: - Allergies: 08:57 Azithromycin; ph 08:57 Beta-Blockers (Beta-Adrenergic Bloc; ph 08:57 Demerol; ph 08:57 Metoprolol Tartrate; ph - Home Meds: 08:57 aspirin 325 mg Oral tab [Active]; clopidogrel 75 mg Oral tab 1 tab once daily [Active]; ph Eliquis 5 mg Oral tab 1 tab 2 times per day [Active]; isosorbide dinitrate 30 mg Oral tab daily [Active]; Lasix 40 mg Oral tab once daily [Active]; lisinopril 40 mg Oral tab once daily [Active]; Livalo 4 mg Oral tab 1 tab nightly [Active]; metformin er 500 mg BID [Active]; nitroglycerin 0.4 mg SL subl 1 tab every 5 minutes [Active]; Norvasc 10 mg Oral tab 1 tab once daily [Active]; Phenergan 25 mg Q6H prn n/v Oral [Active]; ProAir HFA 90 mcg/actuation inhalation HFAA 2 puffs every 6 hours [Active]; tramadol 50 mg Oral tab 1 tab every 6 hours for Pain [Active]; - PMHx: 08:57 Angina; COPD; Diabetes - NIDDM; High Cholesterol; Hypertension; Myocardial infarction; ph Sleep Apnea; - PSHx: 08:57 pacemaker; ph - Immunization history:: Adult Immunizations unknown. - Social history:: Smoking status: unknown. - Family history:: not pertinent. ROS: 09:54 Constitutional: Negative for fever, chills, and weight loss, Eyes: Negative for injury, rambo pain, redness, and discharge, ENT: Negative for injury, pain, and discharge, Neck: Negative for injury, pain, and swelling, Cardiovascular: Negative for chest pain, palpitations, and edema, Abdomen/GI: Negative for abdominal pain, nausea, vomiting, diarrhea, and constipation, Back: Negative for injury and pain, : Negative for injury, bleeding, discharge, and swelling, MS/Extremity: Negative for injury and deformity, Skin: Negative for injury, rash, and discoloration, Neuro: Negative for headache, weakness, numbness, tingling, and seizure, Psych: Negative for depression, anxiety, suicide ideation, homicidal ideation, and hallucinations, Allergy/Immunology: Negative for hives, rash, and allergies, Endocrine: Negative for neck swelling, polydipsia, polyuria, polyphagia, and marked weight changes, Hematologic/Lymphatic: Negative for swollen nodes, abnormal bleeding, and unusual bruising. 09:54 Respiratory: Positive for cough, shortness of breath, wheezing, inspiratory, expiratory. Exam: 09:54 Constitutional: This is a well developed, well nourished patient who is awake, alert, rambo and in no acute distress. Head/Face: Normocephalic, atraumatic. Eyes: Pupils equal round and reactive to light, extra-ocular motions intact. Lids and lashes normal. Conjunctiva and sclera are non-icteric and not injected. Cornea within normal limits. Periorbital areas with no swelling, redness, or edema. ENT: Nares patent. No nasal discharge, no septal abnormalities noted. Tympanic membranes are normal and external auditory canals are clear. Oropharynx with no redness, swelling, or masses, exudates, or evidence of obstruction, uvula midline. Mucous membranes moist. Neck: Trachea midline, no thyromegaly or masses palpated, and no cervical lymphadenopathy. Supple, full range of motion without nuchal rigidity, or vertebral point tenderness. No Meningismus. Cardiovascular: Regular rate and rhythm with a normal S1 and S2. No gallops, murmurs, or rubs. Normal PMI, no JVD. No pulse deficits. Abdomen/GI: Soft, non-tender, with normal bowel sounds. No distension or tympany. No guarding or rebound. No evidence of tenderness throughout. Back: No spinal tenderness. No costovertebral tenderness. Full range of motion. Male : Normal genitalia with no discharge or lesions. Skin: Warm, dry with normal turgor. Normal color with no rashes, no lesions, and no evidence of cellulitis. MS/ Extremity: Pulses equal, no cyanosis. Neurovascular intact. Full, normal range of motion. Neuro: Awake and alert, GCS 15, oriented to person, place, time, and situation. Cranial nerves II-XII grossly intact. Motor strength 5/5 in all extremities. Sensory grossly intact. Cerebellar exam normal. Normal gait. Psych: Awake, alert, with orientation to person, place and time. Behavior, mood, and affect are within normal limits. 09:54 Chest/axilla: Inspection: no acute changes, Palpation: tenderness, that is moderate, of the anterior aspect of right upper chest, right lateral anterior chest, right lateral posterior chest and right breast. 09:54 Cardiovascular: Rate: normal. 09:54 Respiratory: the patient does not display signs of respiratory distress, Respirations: labored breathing, that is mild, Breath sounds: bronchial sounds, rhonchi, wheezing: expiratory 10:32 Musculoskeletal/extremity: Extremities: all appear grossly normal, with no appreciated rambo pain with palpation, ROM: no acute changes, intact in all extremities, full active range of motion, full passive range of motion, Circulation is intact in all extremities. Sensation intact. Compartment Syndrome exam of affected extremity: is normal. no pain, no numbness, no tingling, no sensation deficit, no palor, no weak pulses, DVT Exam: no pain, no swelling, no tenderness, negative Homans' sign noted on exam, no appreciated bluish discoloration, no erythema, no increased warmth. Vital Signs: 08:51 BP 161 / 85; Pulse 103; Resp 22; Temp 98.4; Pulse Ox 96% on R/A; Weight 119.75 kg; ph Height 5 ft. 6 in. (167.64 cm); Pain 10/10; 09:25 BP 166 / 71; Pulse 71; Resp 18; Pulse Ox 96% on R/A; ph 11:16 BP 164 / 50; Pulse 61; Resp 18; Temp 98.0; Pulse Ox 97% on R/A; ph 08:51 Body Mass Index 42.61 (119.75 kg, 167.64 cm) ph MDM: 08:49 Patient medically screened. rambo 10:00 Differential diagnosis: non-specific abd pain, urinary tract infection, Pleural rambo Effusion Pneumothorax Rib Fracture. Data reviewed: vital signs, nurses notes, lab test result(s), radiologic studies, CT scan, plain films. Data interpreted: environmental monitoring technician: rate is 71 beats/min, rhythm is regular, Pulse oximetry: on room air is 96 %. Test interpretation: by ED physician or midlevel provider: plain radiologic studies. Counseling: I had a detailed discussion with the patient and/or guardian regarding: the historical points, exam findings, and any diagnostic results supporting the discharge/admit diagnosis, lab results, radiology results, the need for outpatient follow up, for definitive care, a family practitioner, a chainstitch pants outseamer. 06/26 09:50 Order name: Chest Single View XRAY [facility] [place] Administered Medications: 10:05 Drug: Xopenex 3.75 mg Route: Inhalation; ph 10:15 Follow up: Response: No adverse reaction ph 10:05 Drug: AtroVENT Aerosol 0.5 mg Route: Inhalation; ph 10:15 Follow up: Response: No adverse reaction ph 10:05 Drug: [place] 10 mg-325 mg 1 tabs Route: PO; ph 10:15 Follow up: Response: No adverse reaction ph Disposition: 06/26/20 10:33 Discharged to Home. Impression: Multiple fractures of ribs, right side, Tobacco abuse counseling, Tobacco use, Chronic obstructive pulmonary disease, unspecified, Obesity, unspecified. - Condition is Stable. - Discharge Instructions: Asthma, Adult, Chronic Bronchitis, How to Use an Inhaler, Obesity, Adult, Steps to Quit Smoking, Smoking Hazards, Incentive Spirometer, Asthma, Adult, [id number], Steps to Quit Smoking, [id number]-Sbft, Cough, Adult, Nxjc-um-Bcoy, Obesity, Adult, Ldoh-gp-[id number]. - Prescriptions for Ibuprofen 600 mg Oral Tablet - take 1 tablet by ORAL route every 8 hours As needed take with food; 21 tablet. Albuterol Sulfate 90 mcg/actuation - inhale 1-2 puff by INHALATION route every 4-6 hours; 1 Inhaler. - Medication Reconciliation Form, Thank You Letter, Antibiotic Education, Prescription Opioid Use form. - Follow up: Private Physician; When: 2 - 3 days; Reason: Recheck today's complaints, Continuance of care, Re-evaluation by your physician. - Problem is new. - Symptoms have improved. Signatures: Dispatcher [employer] [facility] Lenard Rosario MD MD cha Hall, Patricia RN RN ph Corrections: (The following items were deleted from the chart) 11:32 10:33 06/26/2020 10:33 Discharged to Home. Impression: Multiple fractures of ribs, ph right side; Tobacco abuse counseling; Tobacco use; Chronic obstructive pulmonary disease, unspecified; Obesity, unspecified. Condition is Stable. Discharge Instructions: Asthma, Adult, Chronic Bronchitis, How to Use an Inhaler, Obesity, Adult, Steps to Quit Smoking, Smoking Hazards, Asthma, Adult, Mpao-nw-[id number], Steps to Quit Smoking, Zsqx-mo-Ihsv, Cough, Adult, Nlhf-ib-[id number], Obesity, Adult, Sely-es-Vkpu, Incentive Spirometer. Prescriptions for Ibuprofen 600 mg Oral Tablet - take 1 tablet by ORAL route every 8 hours As needed take with food; 21 tablet, Albuterol Sulfate 90 mcg/actuation - inhale 1-2 puff by INHALATION route every 4-6 hours; 1 Inhaler. and Forms are Medication Reconciliation Form, Thank You Letter, Antibiotic Education, Prescription Opioid Use. Follow up: Private Physician; When: 2 - 3 days; Reason: Recheck today's complaints, Continuance of care, Re-evaluation by your physician. Problem is new. Symptoms have improved. rambo
--- NOTE | 2020-06-26 10:34 | ER ---
Nurse's Notes [facility] Name: Juan Miguel Langston Age: 54 yrs Sex: Male : 1965 Arrival Date: 06/26/2020 Time: 08:48 Bed 20 Private MD: Diagnosis: Multiple fractures of ribs, right side;Tobacco abuse counseling;Tobacco use;Chronic obstructive pulmonary disease, unspecified;Obesity, unspecified Presentation: 06/26 08:51 Chief complaint: EMS states: C/O RUQ pain that started at 0100 this morning and has ph worsened, reports recent hx of R sided rib fx r/t fall, VSS, denies N/V/D or fever. Coronavirus screen: Client denies travel out of the [place] in the last 14 days. At this time, the client does not indicate any symptoms associated with coronavirus-19. Ebola Screen: No symptoms or risks identified at this time. Initial Sepsis Screen: Does the patient meet any 2 criteria? No. Patient's initial sepsis screen is negative. Does the patient have a suspected source of infection? No. Patient's initial sepsis screen is negative. Risk Assessment: Do you want to hurt yourself or someone else? Patient reports no desire to harm self or others. Onset of symptoms was June 26, 2020. 08:51 Method Of Arrival: EMS: [facility] ph 08:51 Acuity: DESTINY 3 ph Historical: - Allergies: 08:57 Azithromycin; ph 08:57 Beta-Blockers (Beta-Adrenergic Bloc; ph 08:57 Demerol; ph 08:57 Metoprolol Tartrate; ph - Home Meds: 08:57 aspirin 325 mg Oral tab [Active]; clopidogrel 75 mg Oral tab 1 tab once daily [Active]; ph Eliquis 5 mg Oral tab 1 tab 2 times per day [Active]; isosorbide dinitrate 30 mg Oral tab daily [Active]; Lasix 40 mg Oral tab once daily [Active]; lisinopril 40 mg Oral tab once daily [Active]; Livalo 4 mg Oral tab 1 tab nightly [Active]; metformin er 500 mg BID [Active]; nitroglycerin 0.4 mg SL subl 1 tab every 5 minutes [Active]; Norvasc 10 mg Oral tab 1 tab once daily [Active]; Phenergan 25 mg Q6H prn n/v Oral [Active]; ProAir HFA 90 mcg/actuation inhalation HFAA 2 puffs every 6 hours [Active]; tramadol 50 mg Oral tab 1 tab every 6 hours for Pain [Active]; - PMHx: 08:57 Angina; COPD; Diabetes - NIDDM; High Cholesterol; Hypertension; Myocardial infarction; ph Sleep Apnea; - PSHx: 08:57 pacemaker; ph - Immunization history:: Adult Immunizations unknown. - Social history:: Smoking status: unknown. - Family history:: not pertinent. Screenin:57 Abuse screen: Denies threats or abuse. Denies injuries from another. Nutritional ph screening: No deficits noted. Tuberculosis screening: No symptoms or risk factors identified. Fall Risk None identified. Assessment: 08:59 General: Appears in no apparent distress. uncomfortable, Behavior is calm, cooperative, ph appropriate for age, Denies fever. Pain: Complains of pain in right upper quadrant. Neuro: Level of Consciousness is awake, alert, obeys commands, Oriented to person, place, time, situation. Cardiovascular: Capillary refill < 3 seconds in bilateral fingers Patient's skin is warm and dry. Respiratory: Reports pain with movement pain with respiration Airway is patent Respiratory effort is even, labored, Respiratory pattern is tachypnea. GI: Reports upper abdominal pain, Patient currently denies diarrhea, nausea, vomiting. Derm: Skin is intact, Skin is pink, warm \T\ dry. Musculoskeletal: Circulation, motion, and sensation intact. Range of motion: intact in all extremities. 09:26 Reassessment: Pt asleep. ph Vital Signs: 08:51 BP 161 / 85; Pulse 103; Resp 22; Temp 98.4; Pulse Ox 96% on R/A; Weight 119.75 kg; ph Height 5 ft. 6 in. (167.64 cm); Pain 10/10; 09:25 BP 166 / 71; Pulse 71; Resp 18; Pulse Ox 96% on R/A; ph 11:16 BP 164 / 50; Pulse 61; Resp 18; Temp 98.0; Pulse Ox 97% on R/A; ph 08:51 Body Mass Index 42.61 (119.75 kg, 167.64 cm) ph ED Course: 08:48 Patient arrived in ED. sv 08:49 Lenard Rosario MD is Attending Physician. rambo 08:51 Leyva, Frida, RN is Primary Nurse. ph 08:55 Triage completed. ph 08:58 Patient has correct armband on for positive identification. Bed in low position. Call ph light in reach. Side rails up X 1. Pulse ox on. NIBP on. Door closed. Noise minimized. Warm blanket given. 08:58 Arm band placed on right wrist. ph 10:03 Chest Single View XRAY In Process Unspecified. EDMS 11:16 No provider procedures requiring assistance completed. Patient did not have IV access ph during this emergency room visit. Administered Medications: 10:05 Drug: Xopenex 3.75 mg Route: Inhalation; ph 10:15 Follow up: Response: No adverse reaction ph 10:05 Drug: AtroVENT Aerosol 0.5 mg Route: Inhalation; ph 10:15 Follow up: Response: No adverse reaction ph 10:05 Drug: [place] 10 mg-325 mg 1 tabs Route: PO; ph 10:15 Follow up: Response: No adverse reaction ph Outcome: 10:33 Discharge ordered by . rambo 11:17 Discharged to home ambulatory, with significant other. ph 11:17 Condition: good 11:17 Discharge instructions given to patient, Instructed on discharge instructions, follow up and referral plans. medication usage, Demonstrated understanding of instructions, follow-up care, medications, Prescriptions given X 2. 11:32 Patient left the ED. ph Signatures: Dispatcher [employer] Nilda Smyth, RN Lenard Hutchinson MD MD cha Hall, Patricia, RN RN ph
[2020-06-26 11:39] VITALS: BP 164/50; TEMP 98; O2SAT 97
== END 2020-06-26 11:32 | disposition home or self-care (01) ==
LOC: ER 08:47
DX: S22.41XA Multiple fractures of ribs, right side, initial encounter for closed fracture (principal); J44.9 Chronic obstructive pulmonary disease, unspecified; E66.9 Obesity, unspecified; Z72.0 Tobacco use; Z71.6 Tobacco abuse counseling; I10 Essential (primary) hypertension; E11.9 Type 2 diabetes mellitus without complications; Z95.0 Presence of cardiac pacemaker; Z79.01 Long term (current) use of anticoagulants; Z79.82 Long term (current) use of aspirin; Z88.1 Allergy status to other antibiotic agents; Z88.5 Allergy status to narcotic agent; Z88.8 Allergy status to other drugs, medicaments and biological substances
CPT/HCPCS: 71045; 99284

== ENCOUNTER 2020-07-07 18:17 | Emergency (ER) | payer OTHER, SELFPAY ==
--- OUTSIDE RECORDS SUMMARY | 2020-07-07 18:20 | XMS REPORT | Clinical Summary ---
:1965 Author Organization [facility] Address [address] [place] [address] Care Team Providers Name Role Phone Pcp, [...] Reilly MD 02/03/2020 Lab Requisition Lab after 07/07/2019 Social History Tobacco Use Types Packs/Day Years [...] Completed 04/20/2019, 2013 Implants Implanted Type Area Ticket Puller Device Identifier Shelf Model / Expiration Serial / Date Lot Lead Pacemkr Cecily [place] 52x1 [id number] - [id number] PACEMAKER/I [employer]:CARD [id number] 09/27/2021 [id number] / Implanted: Qty: 1 on 02/05/2020 by Prem Herron MD at [facility] CD CHAMBER RHY:DISEASE MGT [id number] / DEVICE Description:Ventricular Lead Lead Pacemkr Cecily Tovar 45x1 [id number] - [id number] PACEMAKER/IC D [employer]:CARD [id number] 08/28/2021 [id number] / Implanted: Qty: 1 on 02/05/2020 by Prem Herron MD at [facility] CHAMBER DEVICE RHY:DISEASE MGT [id number] / Description:Atrial Lead Pacemkr Brandee Xtdr Mri Ipg [id number] - [id number] PACEMAKER/ICD [employer]:CARD [id number] 05/31/2021 [id number] / Implanted: Qty: 1 on 02/05/2020 by Prem Herron MD at [facility] CHAMBER DEVICE RHY:PACING SYS [id number] / Description:Chest Procedures Procedure Name Priority Date/Time [...] 380 ms QTC Calculation(Bazett) 392 ms P [place] 51 degrees R [place] 57 degrees T [place] -21 degrees Normal sinus rhythm Incomplete left [...] i n the results section . 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 Lilia Kingston, RDCS,RVT,RDMS Palaeontologist Linda Rodriguez, Interpreting Nilda Myles MD RDCS [...] Study 02/06/2020 RU Gender Male Visit Number [id number] Race Unknown Room Num [place] [id number] Number Date of 1965 Justin Mockcherrifantasma Physicia n Age 54 year(s) Sonograp her NaROSSY Mata, RDCS,RVT,RDMS Palaeontologist Anthony Lezama MD RDCS Physicia n Procedure [...] TR Gradient: 23.87 mmHg Performing Organization Address City/[facility] Phone Number [facility]ART[facility] MKCKESSON CPACS POC-Glucose meter (02/06/2020 7:12 AM CDT)Only the most recent of3 results within the time period is included. [facility] Signature POC-Glucose Meter 131 (H)Comment: 70 - 110 mg/dL [facility] : TESTED AT [address], [address]: Dog Behaviorist/Technic oswaldo ID = [id number] for KENDRICK HAN Specimen Blood Performing Organization Address [facility] Phone Number [place] [phone] CENTER CBC with platelet count + automated diff (02/06/2020 4:03 AM CDT)Only the most recent of2 resultswithin the time period is included. Pathologist Sig nature WBC 8.1 3.5 - 10.5 [facility] K/L [facility] RBC 5.09 4.63 - 6.08 [facility] M/L [facility] Hemoglobin 13.5 (L) 13.7 - 17.5 [facility] GM/DL [facility] Hematocrit 45.1 40.1 - 51.0 % [facility] MCV 88.6 79.0 - 92.2 fL [facility] MCH 26.5 25.7 - 32.2 pg [facility] MCHC 29.9 (L) 32.3 - 36.5 [facility] GM/DL [facility] RDW 15.9 (H) 11.6 - 14.4 % [facility] Platelets 265 150 - 450 K/CU [facility] MPV 11.2 9.4 - 12.4 fL [facility] nRBC 0 0 - 0 /100 WBC [facility] % Neutros 65 % [facility] % Lymphs 24 % [facility] % Monos 9 % [facility] % Eos 1 % [facility] % Baso 0 % [facility] # Neutros 5.27 1.78 - 5.38 [facility] # Lymphs 1.96 1.32 - 3.57 [facility] # Monos 0.69 0.30 - 0.82 [facility] # Eos 0.08 0.04 - 0.54 [facility] # Baso 0.03 0.01 - 0.08 [facility] Immature 0 0 - 1 % [facility] Specimen Blood Performing Organization Address City/State/Zipcode Phone Number [facility] [address] [place] [address] CENTER Magnesium (02/06/2020 4:02 AM CDT)Only the most recent of2 resultswithin the time period is included. Pathologist Sig nature Magnesium 1.9Comment: Specimen 1.6 - 2.6 mg/dL [facility] slightly hemolyzed [facility] Specimen Blood Narrative Performed At Dog Behaviorist ID - NELLY Loredo [facility] Performing Organization Address City/[facility]/Zipcode Phone Number [facility] [address] [place] [address] CENTER Basic metabolic panel (02/06/2020 4:02 AM CDT)Only the most recent of2 results within the time period is included. Sodium 137 136 - 145 meq/L [facility] Potassium 4.4Comment: Specimen 3.5 - 5.1 meq/L [facility] Chloride 101 98 - 107 meq/L [facility] CO2 28 22 - 29 meq/L [facility] BUN 13 7 - 21 mg/dL [facility] Creatinine 0.73Comment: 0.57 - 1.25 [facility] Specimen slightly mg/dL [facility] hemolyzed [place] Glucose 124 (H) 70 - 105 mg/dL [facility] Calcium 8.2 (L) 8.4 - 10.2 [facility] mg/dL [facility] EGFR 112Comment: mL/min/1.73 sq [facility] ESTIMATED GFR IS NOT m [facility] ACCURATE [place] CREATININE CLEARANCE IN PREDICTING GLOMERULAR FILTRATION RATE. ESTIMATED GFR IS NOT APPLICABLE FOR DIALYSIS PATIENTS. Specimen Blood Narrative Performed At Dog Behaviorist ID - NELLY Loredo [facility] Performing Organization Address City/[facility]/Zipcode Phone Number [facility] [address] [place] [address] [place] XR chest 1 view portable / bedside [...] Report Verified Date/Time: 02/05/2020 18:08:29 Reading Location: [address] Reading Room Procedure Note Interface, External [...] Verified Date/Time: 02/05/2020 1 8:08:29 Reading Location: [address] Reading Room Performing Organization Address City/State/Zipcode Phone Number [facility] Blood gas, arterial (02/05/2020 11:36 AM CDT) Pathologist Sig nature pH, Arterial 7.42 7.35 - 7.45 [facility] pCO2, Arterial 48 (H) 35 - 45 mmHg [facility] pO2, Arterial 70 (L) 80 - 90 mmHg [facility] O2 Sat, Arterial 94.8 (L) 96.0 - 97.0 % [facility] HCO3, Arterial 31 (H) 21 - 29 mmol/L [facility] Base Excess, Arterial 5.3 (H) -2.0 - 3.0 [facility] mmol/L [facility] Patient Temperature 36.3 C [facility] FIO2 21.0 % [facility] Specimen Blood, Arterial Performing Organization Address City/[facility] Phone Number [address] [address] CENTER ABORH, manual (02/05/2020 8:59 AM CDT) Pathologist Sig nature ABO Grouping AB [facility] Rh Factor POS [facility] Specimen Blood Performing Organization Address [facility] Phone Number [address] [address] Type and screen, automated (02/05/2020 8:30 AM CDT) Pathologist Sig nature ABO/RH AUTOMATED AB POSITIVE [facility] (BEAKER) [facility] Ab Scrn NEGATIVE [facility] Specimen Blood Performing Organization Address [facility] Phone Number [address] [address] ECG 12 lead (02/05/2020 6:40 AM CDT) Specimen Narrative Performed At Ventricular Rate 64 BPM GE MUSE Atrial Rate 64 BPM P-R Interval 152 ms QRS Duration 106 ms Q-T Interval 380 ms QTC Calculation(Bazett) 392 ms P [place] 51 degrees R [place] 57 degrees T [place] -21 degrees Normal sinus rhythm Incomplete left [...] 380 ms QTC Calculation(Bazett) 392 ms P [place] 51 degrees R [place] 57 degrees T [place] -21 degrees Normal sinus rhythm Incomplete left bundle branch block Nonspecific ST and T wave abnormality Abnormal ECG No previous ECGs available Confirmed by MD JHON, BLANQUITA ([id number]) on 02/05/2020 1:06:39 PM Performing Organization Address City/[facility] Phone Number MUSE Hemoglobin A1c (02/05/2020 1:23 AM CDT) Pathologist Sig nature Hemoglobin A1C 8.3 (H) 4.3 - 6.1 % [facility] Specimen Blood Performing Organization Address [facility] Phone Number [address] [address] [place] Blood gas, venous (02/05/2020 1:23 AM CDT) Pathologist Sig nature pH, [place]uco 7.39 7.32 - 7.42 [facility] pCO2, [place] 52 (H) 41 - 51 mmHg [facility] pO2, [place] 147 (H) 25 - 40 mmHg [facility] O2 Sat, [place] 98.8 (H) 40.0 - 70.0 % [facility] HCO3, [place] 30 (H) 21 - 29 mmol/L [facility] Base Excess, [place] 4.3 (H) -2.0 - 3.0 [facility] mmol/L [facility] Patient Temperature 37.0 C [facility] FIO2 21.0 % [facility] Specimen Blood Performing Organization Address [facility] Phone Number [facility] [address] [place] [address] [place] Lipid panel (02/05/2020 1:22 AM CDT) Pathologist Sig nature Triglycerides 119 mg/dL [facility] [place] Cholesterol 192 mg/dL [facility] HDL 34 mg/dL [facility] LDL Calculated 134 mg/dL [facility] [place] Specimen Blood Narrative Performed At Triglyceride Reference Range: [facility] Low Risk <150 Borderline 150-199 High Risk 200-499 Very High Risk >=500 Cholesterol Reference Range: Low Risk <200 Borderline 200-239 High Risk >240 HDL Cholesterol Reference Range: Low Risk >=60 High Risk <40 LDL Cholesterol Reference Range: Optimal <100 Near Optimal 100-129 Borderline 130-159 High 160-189 Very High >=190 Dog Behaviorist ID - NELLY W Performing Organization Address City/State/Zipcode Phone Number [facility] [address] [place] [address] CENTER SARS-CoV2/RT-PCR ([facility]) (02/03/2020 8:16 PM CDT) SARS-COV2/RT-PCR Negative Not Detected, [facility] Negative, See [facility] external report CENTER for linked test SARS-COV-2 [facility] KYLIE [facility] PERFORMING LAB [facility] Specimen Other - Nasopharyngeal wall structure (b yinka structure) Narrative Performed At Negative result for this test determines that [facility] SARS-CoV-2 RNA was not [...] the Act. Fact Sheet for Healthcare Providers: https://www.[place]/sites/default/files/pro duct/documents/Fact_Sheet_HC_Providers_Lyra_SA RS-CoV-2.pdf Fact Sheet for Healthcare Patients: https://www.[place]/sites/default/files/pro duct/documents/Fact_Sheet_Patients_Lyra_SARS-C oV-2.pdf Performing Laboratory: [place] [address] Performing Organization Address City/State/[place] [address] CENTER after 07/07/2019 Advance Directives For more information, please contact: [phone] Code Status Date Activated Date Inactivated Comments Full Code 02/04/2020 11:59 PM 02/06/2020 5:54 PM This code status was determined by: Patient
--- OUTSIDE RECORDS SUMMARY | 2020-07-07 18:21 | XMS REPORT | Continuity of Care Document ---
:1965 Author Organization [facility] t Address [address] [place] [address] Care Team Providers Name Role Phone Pcp MD Primary Care Physician Unavailable Nic ROCHA Attending Clinician Care, Primary Attending Clinician Unavailable Bernardo HAYWOOD Attending Clinician Doctor Unassigned, [...] sleep 00:00: Medica l apnea) apnea) 00 [place] Morbid Morbid Disease Active [facility] obesity 02-04 [facility] - with BMI with BMI 00:00: Medica l of of 00 Center 40.0-44.9, 40.0-44.9, adult adult Syncope Syncope Disease Active [facility] - sick sinus sick sinus 00:00: Me dical syndrome syndrome 00 [place] Sick sinus Sick sinus Disease Active C [facility] syndrome syndrome 02-03 [facility] - due to SA due to SA 00:00: Medi ajith node node 00 [place] dysfunctio dysfunctio n n Homeless Homeless Disease Active [facility] S t 02-03 [facility] - 00:00: Medical 00 Center Allergies, Adverse Reactions, Alerts This patient has no known allergies or adverse reactions. Social History Social Habit Start Date Stop Date Quantity Comments Source History [facility] - Alcohol Std Drinks Medica Center History [facility] - Alcohol Binge Medical Olya ter Sex Assigned At [facility] Alcohol intake 2020-02-06 2020-02-[address] [facility] es - 00:00:00 00:00:00 non-drinker of Medical Ce nter alcohol (finding) History [facility] 2020-02-04 2020-02-04 1 [facility] - Alcohol Frequency 00:00:00 00:00:00 Medical Center Smoking Status Start Date Stop Date Source Current every day smoker 2020-02-06 00:00:00 [facility] Medications Ordered Filled Start Stop Current [...] 00 :00 by mouth Center daily. mINOCYCLine No 100mg Take [address] (MINOCIN,DY 02-05 capsule Luke s - NACIN) 100 00:00: 23:59 (100 mg Med ical MG capsule 00 :00 total) by Cent er mouth every 12 (twelve) hours for 5 days. Vital Signs Vital Name Observation Time Observation Value Comments Source Systolic blood 2020-02-06 11:21:00 146 mm[Hg] [facility] Diastolic blood 2020-02-06 11:21:00 74 mm[Hg] [facility] S [facility] Heart rate 2020-02-06 11:21:00 80 /min [facility] Body temperature 2020-02-06 11:21:00 37.06 Marianne [facility] Respiratory rate 2020-02-06 11:21:00 18 /min [facility] Oxygen saturation in 2020-02-06 11:21:00 94 /min [facility] Arterial blood by Medical Ce nter Pulse oximetry Body weight 2020-02-05 06:35:00 120.929 kg [facility] BMI 2020-02-05 06:35:00 43.03 kg/m2 [facility] Body height 2020-02-04 22:00:00 167.6 cm [facility] Procedures Procedure Date / Time Performed Performing Clinician Elo rodriguez ARRYTHMIA IMPLANT REPORT 2020-02-20 13:41:29 Provider, Default Jamilah [facility] - - SCAN Scanning [facility] RHYTHM STRIP - SCAN 2020-02-08 09:00:23 Provider, Default [facility] ARRYTHMIA IMPLANT REPORT 2020-02-08 09:00:19 Provider, Default C LISA [facility] - - SCAN [facility] CARDIAC CATH REPORT - 2020-02-08 09:00:17 Provider, Default [facility] - SCAN [facility] TRANSFUSION SERVICE 2020-02-06 18:02:59 Provider, Default [facility] - REPORT - [facility] 2D ECHO W/ DOPPLER 2020-02-06 10:08:41 Fredrick Forrest [facility] (CW/PW/COLOR) [facility] POCT-GLUCOSE METER 2020-02-06 07:12:00 Timoteo Shipley [facility] CBC W/PLT COUNT & AUTO 2020-02-06 04:03:00 Fredrick Forrest [facility] DIFFERENTIAL [facility] BASIC METABOLIC PANEL 2020-02-06 04:02:00 Fredrick Forrest [facility] - (7) [facility] MAGNESIUM 2020-02-06 04:02:00 Fredrick Forrest [facility] POCT-GLUCOSE METER 2020-02-05 22:25:00 Timoteo Shipley [facility] XR CHEST 1 VIEW 2020-02-05 17:51:00 Eduardo Chavez [facility] - PORTABLE/BEDSIDE [facility] POCT-GLUCOSE METER 2020-02-05 16:47:00 Timoteo Shipley [facility] AICD UPGRADE - SINGLE TO 2020-02-05 12:29:00 Prem Elam [facility] - DUAL CHAMBER SYSTEM Medical Cent er BLOOD GAS, ARTERIAL 2020-02-05 11:36:00 Dulce Wilde [facility] - [facility] ABORH, MANUAL 2020-02-05 08:59:00 Tiffanie Conner [facility] TYPE AND SCREEN, 2020-02-05 08:30:00 Eduardo Chavez [facility] - AUTOMATED [facility] XR CHEST 1 VIEW 2020-02-05 06:55:00 Dulce Wilde [facility] s - PORTABLE/BEDSIDE [facility] ECG 12-LEAD 2020-02-05 06:40:35 Unknown, Hl7 Doctor [facility] HEMOGLOBIN A1C 2020-02-05 01:23:00 [facility] BLOOD GAS, VENOUS 2020-02-05 01:23:00 [facility] CBC W/PLT COUNT & AUTO 2020-02-05 01:23:00 [facility] DIFFERENTIAL [facility] BASIC METABOLIC PANEL 2020-02-05 01:22:00 Fredrick Forrest [facility] (7) [facility] MAGNESIUM 2020-02-05 01:22:00 [facility] LIPID PANEL 2020-02-05 01:22:00 [facility] SARS-COV2/RT-PCR ([facility] & 2020-02-03 20:16:00 [facility] REF LABS) [facility] Plan of Care Planned Activity Planned Date Details Comments Source Future Scheduled 2023-02-[address] [facility] - Test 00:00:00 (procedure) [code = [facility] 62427756] Future Scheduled 2020-08-[address] [facility] - Test 00:00:00 measurement [facility] (procedure) [code = 84061565] Future Scheduled 2020-03-[address] [facility] - Test 00:00:00 (#1) [code = [facility] INFLUENZA VACCINE (#1)] Future Scheduled 1975-09-[address] DIABETIC EYE EXAM [facility] - Test 00:00:00 [code = DIABETIC EYE [facility] EXAM] Future Scheduled 1975-09-[address] [facility] - Test 00:00:00 examination [facility] (regime/therapy) [code = 339202119] Future Scheduled 1975-09-07 Urine screening for [facility] - Test 00:00:00 protein (procedure) [facility] [code = 324502523] Future Scheduled [address] [facility] - Test 00:00:00 malignant neoplasm of Medica l Center colon (procedure) [code = 512117811] Encounters Start End Encounter Admission Attending Care Care Encounter Source Date/Time Date/Time Type Type Clinicians Facility Department ID 2020-06-25 2020-06-25 Telephone Ekta Lucero [id number] 00:00:00 00:00:00 [facility] [id number] [facility] 4.2.7.2.686 UNIT [id number] 2020-06-19 2020-06-19 Telemed[facility] Care, Luis CONDON [id number] 08:48:06 09:18:06 ne Visit [facility] [id number] [facility] 4.2.7.2.686 UNIT [id number] 2020-06-18 2020-06-18 Office Bernardo, [facility] [id number] 10:24:46 11:04:52 Visit Eunice Escamilla 350.1.13.10 [place] 4.2.7.2.686 Profclifio [id number] nal 059 [facility] 2020-06-12 2020-06-12 Orders Doctor OSEI [id number] 00:00:00 00:00:00 Only Unassigned, BOGDAN 350.1.13.10 [place] 4.2.7.2.686 [id number] Results Test Description Test Time Test Comments Results Result Sour e Comments 2D Echo Ejection FractionSLEH [facility] W/Doppler(CW/PW/C 5 ECHO [facility]ART[facility] - [facility]) 18:17:02 [facility] CPACSInterface, External Ris In - 02/06/2020 6:17 PM CDTTransthoracic Echocardiography Report (TTE) Demographics Patient Name SAMMY VALLE Date of Study 02/06/2020 RU Gender Male Visit Number [id number] Race Unknown Room Number 636 Number Date of 1965 Referring [facility] Age 54 year(s) Quotation Checker ROSSY Kingston, RDCS,RVT,RDMS Knotter Hand Linda Rodriguez, Interpreting Nilda Myles MD RDCS [...] 131 mg/dL 70-110 H : TESTED AT [facility] [address] [address]) [facility], [facility] 30: Haunted History Tour Guide/Techni vanita ID = [id number] for KENDRICK HAN Lab Interpretation (test code = Abnormal 05813-6) [facility] [id number] 07:29:00 Test Item Value Reference Range Interpretation Comments POC-GLUCOSE METER 131 mg/dL 70-110 H : TESTED A T [facility] [address] (BEAKER) (test code = [place], 1538) [address]: Haunted History Tour Guide/Techni vanita ID = [id number] for PO KENDRICK VORA Basic metabolic [id number] 04:43:00 Test Item Value Reference Range Interpretation Comments Sodium (test code = 137 meq/L 208-117 2704-2) Potassium (test code = 4.4 meq/L 3.5-5.1 [...] (test code = 8.2 mg/dL 8.4-10.2 L 37115-7) EGFR (test code = 112 mL/min/1.73 [place] [address]-5) NOT ACCURATE CREATININE CLEARANCE IN PREDICTING GLOMERULAR FILTRATION RATE . ESTIMATED GFR I S NOT APPLICABLE FOR DIALYSIS PATIENTS. YOMI (test code = YOMI) Haunted History Tour Guide ID - NELLY Loredo Lab Interpretation Abnormal (test code = 93551-9) [facility]2020-08-05 04:43:00 Test Item Value Reference Range Interpretation Comments Magnesium (test code = 1.9 mg/dL 1.6-2.6 Speci men 27183-4) slightly hemolyzed YOMI (test code = YOMI) Haunted History Tour Guide ID - NELLY W Lab Interpretation Normal (test code = 56220-3) [facility]2020-08-05 04:43:00 Test Item Value Reference Range Interpretation Comments MAGNESIUM (BEAKER) 1.9 mg/dL 1.6-2.6 Specimen slightly (test code = 627) hemolyzed Haunted History Tour Guide ID - NELLY WBASIC METABOLIC [id number] 04:43:00 Test Item Value Reference Range Interpretation [...] S NOT APPLICABLE FOR DIALYSIS PATIEN TS. Haunted History Tour Guide ID - NELLY WCBC with platelet count + automated [id number] 04:32:00 Test Item Value Reference Range Interpretation [...] 450 K/CU MM MPV (test code = 59803-6) 11.2 fL 9.4-12.4 nRBC (test code = [...] 2801) Lab Interpretation (test code = Abnormal 59342-5) [facility] W/PLT COUNT & AUTO [id number] 04:32:00 Test Item Value Reference Range Interpretation [...] PERCENT (BEAKER) (test code = 2801) POCT-GLUCOSE [id number] 22:36:00 Test Item Value Reference Range Interpretation Comments POC-GLUCOSE METER 118 mg/dL 70-110 H : TESTED A T [facility] 6720 (BEAKER) (test code = EVA Marcum [facility], 1538) [address]: Haunted History Tour Guide/Techni vanita ID = [id number] for CA RPIO, RICARDO RAD, CHEST, 1 VIEW, NON [id number] 18:08:00Reason for exam:->Confirm pacemaker lead placementShould this [...] Vincent Verified Date/Time: 02/05/2020 18:08:29 Reading Location: [address] Transitional Reading Room XR chest 1 view portable / [id number] 18:08:00 Interface, External Ris In - 02/05/2020 [...] Vincent Verified Date/Time: 02/05/2020 18:08:29 Reading Location: [address] Transitional Reading [facility] [id number] 17:06:00 Test Item Value Reference Range Interpretation Comments POC-GLUCOSE METER 91 mg/dL 70-110 : TESTED A T [facility] 67[address] ([facility]) (test code = EVA Jossue [facility], 1538) [address]: Haunted History Tour Guide/Techni vanita ID = [id number] for JADYN DOMÍNGUEZ ECG 12 [id number] 13:06:41Interface, External Ris In - 02/05/2020 1:06 PM CDTVentricular Rate 64 BPMAtrial Rate 64 BPMP-R Interval 152 msQRS Duration 106 msQ-T Interval 380 msQTC Calculation(Bazett) 392 msP Eckerman 51 degreesR Eckerman 57 degreesT Eckerman -21 degreesNormal sinus rhythmIncomplete left bundle branch blockNonspecific ST and T wave abnormalityAbnormal ECGNo previous ECGs availableConfirmed by MD JHON, BLANQUITA ([id number]) on 02/05/2020 1:06:39 [facility] Center[facility], [id number] 11:49:00 Test Item Value Reference Range Interpretation Comments pH, Arterial (test code = 2744-1) 7.42 7.35-7.45 pCO2, Arterial (test code = 48 35- 45 mmHg H 2019-8) pO2, Arterial (test code = 2703-7) 70 80- 90 mmHg L O2 Sat, Arterial (test code = 94.8 % 96-97 L 2708-6) HCO3, Arterial (test code = 31 mmol/L 21-29 H 1960-4) Base Excess, Arterial (test code = 5.3 mmol/L -2-3 H 1925-7) Patient Temperature (test code = 36.3 C 8310-5) FIO2 (test code = 1819) 21 % Lab Interpretation (test code = Abnormal 74581-8) [facility] HospitalBLOOD GAS, [id number] 11:49:00 Test Item Value Reference Range Interpretation [...] (test code = 1819) 21.0 % Hemoglobin [id number] 10:59:00 Test Item Value Reference Range Interpretation Comments Hemoglobin A1C (test code = 4548-4) 8.3 % 4.3-6.1 H Lab Interpretation (test code = Abnormal 86004-9) [facility] HospitalHEMOGLOBIN [id number] 10:59:00 Test Item Value Reference Range Interpretation Comments HEMOGLOBIN A1C (BEAKER) (test code = 8.3 % 4.3-6.1 H 368) ABORH, [id number] 09:54:00 Test Item Value Reference Range Interpretation Comments ABO Grouping (test code = 2588) AB Rh Factor (test code = 2589) POS [facility] HospitalType and screen, [id number] 09:35:00 Test Item Value Reference Range Interpretation Comments ABO/RH AUTOMATED (BEAKER) (test AB POSITIVE code = 2260) Ab Scrn (test code = 890-4) NEGATIVE [facility] HospitalRAD, CHEST, 1 VIEW, NON [id number] 07:14:00 Reason for exam:->hypoxiaShould this be performed at the bedside?->Yes FINAL REPORT RAD, CHEST, 1 VIEW, NON DEPT INDICATION: hypoxia COMPARISON: Prior day's exam FINDINGS: Portable frontal view of the chest. IMPRESSION: Support Lines: None Lungs and pleura: Clear lungs No pneumothorax.Heart and mediastinum: Unremarkable contours.Additional findings: None. Signed: JR Vaughn Robert MDReport Verified Date/Time: 02/05/2020 07:14:51 ReadingLocation: [facility] Reading Room Blood gas, venous 2020-02-05 02:00:00 Test Item Value Reference Range Interpretation Comments pH, Cuco (test code = 2746-6) 7.39 7.32-7.42 pCO2, Cuco (test code = 755) 52 41- 51 mmHg H pO2, Cuco (test code = 2705-2) 147 25- 40 mmHg H O2 Sat, Cuco (test code = 2711-0) 98.8 % 40-70 H HCO3, Cuco (test code = 94555-0) 30 mmol/L 21-29 H Base Excess, Cuco (test code = 4.3 mmol/L -2-3 H 1927-3) Patient Temperature (test code = 37.0 C 8310-5) FIO2 (test code = 1819) 21 % Lab Interpretation (test code = Abnormal 98967-9) [facility] HospitalBLOOD GAS, [id number] 02:00:00 Test Item Value Reference Range Interpretation [...] (test code = 1819) 21.0 % Lipid [id number] 01:56:00 Test Item Value Reference Range Interpretation Comments Triglycerides (test 119 mg/dL code = 2571-8) Cholesterol (test code 192 mg/dL = 2093-3) HDL (test code = 34 mg/dL 2085-9) LDL Calculated (test 134 mg/dL code = 42623-3) YOMI (test code = YOMI) Triglyceride Reference Range: Low Risk <150 Borderline 150-199 High Risk 200-499 Very High Risk >=500 Cholesterol Reference Range: Low Risk <200 Borderline 200-239 High Risk >240 HDL Cholesterol Reference Range: Low Risk >=60 High Risk <40 LDL Cholesterol Reference Range: Optimal <100 Near Optimal 100-129 Borderline 130-159 High 160-189 Very High >=190 Haunted History Tour Guide GLYNN Eunice VILLEGAS W [facility] HospitalMAGNESIUM2020-08-04 01:56:00 Test Item Value Reference Range Interpretation Comments MAGNESIUM (BEAKER) (test code = 1.8 mg/dL 1.6-2.6 627) Haunted History Tour Guide ID Eunice VILLEGAS WBASIC METABOLIC [id number] 01:56:00 Test Item Value Reference Range Interpretation [...] S NOT APPLICABLE FOR DIALYSIS PATIEN TS. Haunted History Tour Guide ID - NELLY WLIPID [id number] 01:56:00 Test Item Value Reference Range Interpretation [...] Borderline 130-159 High 160-189 Very High >=190 Haunted History Tour Guide ID - NELLYWCBC W/PLT COUNT & AUTO [id number] 01:42:00 Test Item Value Reference Range Interpretation [...] PERCENT (BEAKER) (test code = 2801) SARS-CoV2/RT-PCR ([facility] & Ref Labs)2020-02-04 10:32:00 Test Item Value Reference Range Interpretation Comments SARS-COV2/RT-PCR Negative Not Detected, (test code = Negative, See 23604-0) external report for linked test SARS-COV-2 [facility] PERFORMING LAB (test code = 32625-9) YOMI (test code = Negative result for [...] of the Act. Fact Sheet for Healthcare Providers:https://www.[employer].Trunity/sites/default/f angelina/product/documents/F act_Sheet_HC_Providers_L cuj_DZHY-UeC-6.pdf Fact Sheet for Healthcare Patients:https://www.[employer].Trunity/sites/default/fi les/product/documents/Fa ct_Sheet_Patients_Lyra_S ARS-CoV-2.pdf Performing Laboratory:[facility] [place] [address] [facility] ([facility] REF [facility])2020-02-04 10:32:00 Test Item Value Reference Range Interpretation Comments SARS-COV2/RT-PCR (test Negative Not Detected, Negative, code = 9640912) See external report for linked test SARS-COV-2 PERFORMING LAB [facility] (test code = 4454020) Negative result for this test determines that [...] 564(g) of the Act.Fact Sheet for Healthcare Providers:https://www.[employer].Trunity/sites/default/files/product/documents/Fact_Shemichael d_MG_Uhwoqnrkl_Hlps_BQZZ-FcO-1.pdfFact Sheet for Healthcare Patients:https://www.[employer].com/sites/default/files/product/ documents/Hbly_Rwokn_Aaitdwkt_Yapl_RPHH-LyZ-8.pdfPerforming Laboratory:[facility] [place] [address]
--- OUTSIDE RECORDS SUMMARY | 2020-07-07 18:26 | XMS REPORT | Summary of Care ---
:1965 Author Organization [facility] - Health Address [address] [place] [address] Care Team Providers Name Role Phone Nic JOSEFINA Primary Care Provider Encounter Details Date Type Department Care Team Description 06/12/2020 Orders Only [facility] Doctor Unassigned, No [address] [place] [address] [address] [place] [address] Allergies Active Allergy Reactions Severity Noted Date Comments Azithromycin Swelling High 08/11/2018 Throat swells Metoprolol Other - See comments 07/11/2018 Lowers heart rate too low documented as of this encounter (statuses as of 06/30/2020) Medications Medication Sig Dispensed Refills Start Date [...] as of this encounter (statuses as of 06/30/2020) Active Problems Problem Noted Date Pulmonary embolism 03/11/2020 BRDIGET (obstructive sleep apnea) 02/18/2020 Pacemaker 02/06/2020 Homeless [...] as of this encounter (statuses as of 06/30/2020) Immunizations Name Administration Dates Next Due Influenza [...] with No / Unsure 05/14/2020 9:37 AM PRACTICE SUPPORT SPECIALIST someone who was confirmed or suspected to have Coronavirus / COVID-19? documented as of this encounter Last Filed Vital Signs Not on filedocumented in this encounter Plan of Treatment Date Type Specialty Care Team Description 07/10/2020 Telemedicine Visit Family Medicine Ekta Lucero, HOUSE FELLOW [address] [place] [address] [phone] Care, Ang Primary 08/28/2020 Office Visit Pulmonary Disease Mayela Funes, [address] [place] [address] 12/17/2020 Office Visit Cardiology Eunice Chang M D [address] 775 15 [phone] Health Maintenance Due Date Last Done Comments [...] this encounter Implants Implanted Type Area Manager Operational Device Identifier Shelf Exp iration Model / Date Serial / L ot Pacemaker PACEMAKER documented as of this encounter Procedures Procedure Name Priority Date/Time Associated Diagnosis Comme nts MEDICATION CORRESPONDENCE Routine 06/12/2020 12:01 AM PRACTICE SUPPORT SPECIALIST documented in this encounter Results Not on filedocumented in this encounter Insurance Payer Benefit Plan Subscriber ID Effective Phone Address Typ e / Group Dates [place] [id number] 2018-08/03 [phone] [facility] [place] [address] documented as of this encounter
--- NOTE | 2020-07-07 22:05 | EDPHYS ---
Physician Documentation [facility] Name: Juan Miguel Langston Age: 54 yrs Sex: Male : 1965 Arrival Date: 07/07/2020 Time: 18:19 Bed 18 Private MD: ED Physician Nate Donald HPI: 07/07 21:58 This 54 yrs old Male presents to ER via Ambulatory with complaints of leg rn rash, redness. 21:58 The patient presents with cellulitis of the right leg. Description: erythematous, rn swollen, warm. Onset: The symptoms/episode began/occurred 5 day(s) ago. Possible cause(s): unknown. Associated signs and symptoms: Pertinent positives: drainage, erythema, swelling, Pertinent negatives: fever. Modifying factors: the symptoms are alleviated by nothing, the symptoms are aggravated by touching. Severity of symptoms: At their worst the symptoms were mild, in the emergency department the symptoms are unchanged. The patient has not experienced similar symptoms in the past. The patient has not recently seen a physician. Reports redness and rash to RLE, pre-tibial region, has been scratching it, and now weeping with some drainage. No fever. Reports scraped leg on recent fall and thinks that's what triggered everything. . Historical: - Allergies: 18:27 Azithromycin; sv 18:27 Beta-Blockers (Beta-Adrenergic Bloc; sv 18:27 Demerol; sv 18:27 Metoprolol Tartrate; sv - PMHx: 18:27 Angina; High Cholesterol; Hypertension; Diabetes - NIDDM; COPD; Sleep Apnea; Myocardial sv infarction; - PSHx: 18:27 pacemaker; sv - Family history:: not pertinent. - Hospitalizations: : The patient was recently seen at [facility]. ROS: 21:58 Constitutional: Negative for fever, chills, and weight loss, Cardiovascular: Negative rn for chest pain Respiratory: Negative for shortness of breath, cough, wheezing, and pleuritic chest pain, Abdomen/GI: Negative for abdominal pain, nausea, vomiting, diarrhea, and constipation, Back: Negative for injury and pain, MS/Extremity: + abrasion RLE Skin: + rash and erythema with drainage RLE. Neuro: Negative for headache, weakness, numbness, tingling, and seizure. Exam: 21:58 Constitutional: This is a well developed, well nourished patient who is awake, alert, rn and in no acute distress. Head/Face: Normocephalic, atraumatic. Cardiovascular: Regular rate and rhythm. No pulse deficits. Respiratory: Speaking full sentences, mild tachypnea Skin: Warm, + pre-tibial erythema with clear drainage, + linear abrasion in center of rash, no fluctuance, equal circumference. MS/ Extremity: Pulses equal, no cyanosis. Neurovascular intact. Full, normal range of motion. Equal circumference. Vital Signs: 18:27 BP 164 / 81; Pulse 92; Resp 20; Temp 99(O); Pulse Ox 99% ; sv MDM: 21:49 Patient medically screened. rn 21:58 Differential diagnosis: cellulitis. Data reviewed: vital signs, nurses notes, and as a rn result, I will discharge patient. Counseling: I had a detailed discussion with the patient and/or guardian regarding: the historical points, exam findings, and any diagnostic results supporting the discharge/admit diagnosis, the need for outpatient follow up, to return to the emergency department if symptoms worsen or persist or if there are any questions or concerns that arise at home. Special discussion: I discussed with the patient/guardian in detail that at this point there is no indication for admission to the hospital. It is understood, however, that if the symptoms persist or worsen the patient needs to return immediately for re-evaluation. 22:03 ED course: No indication for emergent admission at this point, mild cellulitis, will dc rn with abx and return precautions.. Administered Medications: 22:12 Drug: Clindamycin 900 mg Route: IM; Site: left deltoid; ll2 22:16 Follow up: Response: No adverse reaction; Medication administered at discharge. ll2 Disposition: 07/07/20 22:04 Discharged to Home. Impression: Cellulitis of right lower limb. - Condition is Stable. - Discharge Instructions: Cellulitis, Adult. - Prescriptions for Clindamycin HCl 300 mg Oral Capsule - take 1 capsule by ORAL route every 6 hours for 10 days; 40 capsule. - Medication Reconciliation Form, Thank You Letter, Antibiotic Education, Prescription Opioid Use, Work release form form. - Follow up: Private Physician; When: 2 - 3 days; Reason: Recheck today's complaints, Re-evaluation by your physician. - Problem is new. - Symptoms are unchanged. Signatures: Lefty, Nilda, Nate Roper RN, MD MD rn Linscombe, Lacie, RN RN ll2 Corrections: (The following items were deleted from the chart) 22:25 22:04 07/07/2020 22:04 Discharged to Home. Impression: Cellulitis of right lower limb. ll2 Condition is Stable. Forms are Medication Reconciliation Form, Thank You Letter, Antibiotic Education, Prescription Opioid Use. Follow up: Private Physician; When: 2 - 3 days; Reason: Recheck today's complaints, Re-evaluation by your physician. Problem is new. Symptoms are unchanged. rn
--- NOTE | 2020-07-07 22:05 | ER ---
Nurse's Notes [facility] Name: Juan Miguel Langston Age: 54 yrs Sex: Male : 1965 Arrival Date: 07/07/2020 Time: 18:19 Bed 18 Private MD: Diagnosis: Cellulitis of right lower limb Presentation: 07/07 18:25 Chief complaint: Patient states: BLE swelling x 4 days, also c/o inner right thigh area sv that is infected and "spreading out". Coronavirus screen: Client denies travel out of the [place] in the last 14 days. At this time, the client does not indicate any symptoms associated with coronavirus-19. Ebola Screen: No symptoms or risks identified at this time. Risk Assessment: Do you want to hurt yourself or someone else? Patient reports no desire to harm self or others. Onset of symptoms was July 07, 2020. 18:25 Method Of Arrival: Ambulatory sv 18:25 Acuity: DESTINY 3 sv 18:27 Initial Sepsis Screen: Does the patient meet any 2 criteria? No. Patient's initial sv sepsis screen is negative. Does the patient have a suspected source of infection? No. Patient's initial sepsis screen is negative. Triage Assessment: 18:29 General: Appears in no apparent distress. comfortable, Behavior is calm, cooperative, sv appropriate for age. Neuro: Level of Consciousness is awake, alert, obeys commands, Oriented to person, place, time, situation, Gait is steady. Respiratory: Respiratory effort is even, unlabored. Historical: - Allergies: 18:27 Azithromycin; sv 18:27 Beta-Blockers (Beta-Adrenergic Bloc; sv 18:27 Demerol; sv 18:27 Metoprolol Tartrate; sv - PMHx: 18:27 Angina; High Cholesterol; Hypertension; Diabetes - NIDDM; COPD; Sleep Apnea; Myocardial sv infarction; - PSHx: 18:27 pacemaker; sv - Family history:: not pertinent. - Hospitalizations: : The patient was recently seen at [facility]. Vital Signs: 18:27 BP 164 / 81; Pulse 92; Resp 20; Temp 99(O); Pulse Ox 99% ; sv ED Course: 18:19 Patient arrived in ED. rg4 18:26 Triage completed. sv 18:27 Arm band placed on. sv 21:48 Nate Donald MD is Attending Physician. rn 21:54 Magda Dumont RN is Primary Nurse. ll2 Administered Medications: 22:12 Drug: Clindamycin 900 mg Route: IM; Site: left deltoid; ll2 22:16 Follow up: Response: No adverse reaction; Medication administered at discharge. ll2 Outcome: 22:04 Discharge ordered by . rn 22:25 Patient left the ED. ll2 Signatures: Nilda Olea RN RN Nate Donald MD MD rn Garcia, Rubi rg4 Magda Dumont RN RN 2 Corrections: (The following items were deleted from the chart) 18:29 18:27 Pulse 92bpm; Resp 20bpm; Pulse Ox 99%; Temp 99F Oral; sv
[2020-07-07] MEDS ORDERED: CLINDAMYCIN IV 150 MG/ML (4 mL) VIAL ONE (22:17)
== END 2020-07-07 22:25 | disposition home or self-care (01) ==
LOC: ER 18:17
DX: L03.115 Cellulitis of right lower limb (principal); I10 Essential (primary) hypertension; Z95.0 Presence of cardiac pacemaker; Z88.1 Allergy status to other antibiotic agents; Z88.5 Allergy status to narcotic agent; Z88.8 Allergy status to other drugs, medicaments and biological substances
CPT/HCPCS: 96372; 99282; S0077

== ENCOUNTER 2020-07-09 04:53 | Emergency (ER) | payer SELFPAY ==
--- OUTSIDE RECORDS SUMMARY | 2020-07-09 04:56 | XMS REPORT | Clinical Summary ---
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 Device Identifier Shelf Model / Expiration Serial / Date Lot Lead Pacemkr Cecily [place] 52x1 [id number] - [id number] PACEMAKER/I [employer]:CARD [id number] 09/27/2021 [id number] / Implanted: Qty: 1 on 02/05/2020 by Prem Herron MD at [facility] CD CHAMBER RHY:DISEASE MGT [id number] / DEVICE Description:Ventricular Lead Lead Pacemkr Cecily Tovar 45x1 [id number] - [id number] PACEMAKER/IC D [employer]:CARD [id number] 08/28/2021 [id number] / Implanted: Qty: 1 on 02/05/2020 by Prem Herron MD at [facility] CHAMBER DEVICE RHY:DISEASE MGT [id number] / Description:Atrial Lead Pacemkr Brandee Xtdr Mri Ipg [id number] - [id number] PACEMAKER/ICD [employer]:CARD [id number] 05/31/2021 [id number] / Implanted: Qty: 1 on 02/05/2020 by Prem Herron MD at [facility] CHAMBER DEVICE RHY:PACING SYS [id number] / Description:Chest Procedures Procedure Name Priority Date/Time [...] 380 ms QTC Calculation(Bazett) 392 ms P [place] 51 degrees R [place] 57 degrees T [place] -21 degrees Normal sinus rhythm Incomplete left [...] i n the results section . 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 Lilia Kingston, RDCS,RVT,RDMS Photoengraving Apprentice Linda Rodriguez, Interpreting Nilda Myles MD RDCS [...] Study 02/06/2020 RU Gender Male Visit Number [id number] Race Unknown Room Num [place] [id number] Number Date of 1965 Justin Mockcherrifantasma Physicia n Age 54 year(s) Sonograp her NaROSSY Mata, RDCS,RVT,RDMS Photoengraving Apprentice Anthony Lezama MD RDCS Physicia n Procedure [...] TR Gradient: 23.87 mmHg Performing Organization Address City/[facility] Phone Number [facility] ECHO HEARTLAB MKCKESSON CPACS POC-Glucose meter (02/06/2020 7:12 AM CDT)Only the most recent of3 results within the time period is included. [facility] Signature POC-Glucose Meter 131 (H)Comment: 70 - 110 mg/dL [facility] : TESTED AT [address], [address]: Apiarist/Technic oswaldo ID = [id number] for KENDRICK HAN Specimen Blood Performing Organization Address [facility] Phone Number [place] [phone] CENTER CBC with platelet count + automated diff (02/06/2020 4:03 AM CDT)Only the most recent of2 resultswithin the time period is included. Pathologist Sig nature WBC 8.1 3.5 - 10.5 [facility] K/L [facility] RBC 5.09 4.63 - 6.08 [facility] M/L [facility] Hemoglobin 13.5 (L) 13.7 - 17.5 [facility] GM/DL [facility] Hematocrit 45.1 40.1 - 51.0 % [facility] MCV 88.6 79.0 - 92.2 fL [facility] MCH 26.5 25.7 - 32.2 pg [facility] MCHC 29.9 (L) 32.3 - 36.5 [facility] GM/DL [facility] RDW 15.9 (H) 11.6 - 14.4 % [facility] Platelets 265 150 - 450 K/CU [facility] MPV 11.2 9.4 - 12.4 fL [facility] nRBC 0 0 - 0 /100 WBC [facility] % Neutros 65 % [facility] % Lymphs 24 % [facility] % Monos 9 % [facility] % Eos 1 % [facility] % Baso 0 % [facility] # Neutros 5.27 1.78 - 5.38 [facility] # Lymphs 1.96 1.32 - 3.57 [facility] # Monos 0.69 0.30 - 0.82 [facility] # Eos 0.08 0.04 - 0.54 [facility] # Baso 0.03 0.01 - 0.08 [facility] Immature 0 0 - 1 % [facility] Specimen Blood Performing Organization Address City/State/Zipcode Phone Number [facility] [address] [place] [address] CENTER Magnesium (02/06/2020 4:02 AM CDT)Only the most recent of2 resultswithin the time period is included. Pathologist Sig nature Magnesium 1.9Comment: Specimen 1.6 - 2.6 mg/dL [facility] slightly hemolyzed [facility] Specimen Blood Narrative Performed At Apiarist ID - NELLY Loredo [facility] Performing Organization Address City/[facility]/Zipcode Phone Number [facility] [address] [place] [address] CENTER Basic metabolic panel (02/06/2020 4:02 AM CDT)Only the most recent of2 results within the time period is included. Sodium 137 136 - 145 meq/L [facility] Potassium 4.4Comment: Specimen 3.5 - 5.1 meq/L [facility] hemFormerly [facility] Chloride 101 98 - 107 meq/L [facility] CO2 28 22 - 29 meq/L [facility] BUN 13 7 - 21 mg/dL [facility] Creatinine 0.73Comment: 0.57 - 1.25 [facility] Specimen slightly mg/dL [facility] hemolyzed [place] Glucose 124 (H) 70 - 105 mg/dL [facility] Calcium 8.2 (L) 8.4 - 10.2 [facility] mg/dL [facility] EGFR 112Comment: mL/min/1.73 sq [facility] ESTIMATED GFR IS NOT m [facility] ACCURATE [place] CREATININE CLEARANCE IN PREDICTING GLOMERULAR FILTRATION RATE. ESTIMATED GFR IS NOT APPLICABLE FOR DIALYSIS PATIENTS. Specimen Blood Narrative Performed At Apiarist ID - NELLY Loredo [facility] Performing Organization Address City/[facility]/Zipcode Phone Number [facility] [address] [place] [address] [place] XR chest 1 view portable / bedside [...] Report Verified Date/Time: 02/05/2020 18:08:29 Reading Location: [address] Reading Room Procedure Note Interface, External [...] Verified Date/Time: 02/05/2020 1 8:08:29 Reading Location: [address] Reading Room Performing Organization Address City/State/Zipcode Phone Number [facility] Blood gas, arterial (02/05/2020 11:36 AM CDT) Pathologist Sig nature pH, Arterial 7.42 7.35 - 7.45 [facility] pCO2, Arterial 48 (H) 35 - 45 mmHg [facility] pO2, Arterial 70 (L) 80 - 90 mmHg [facility] O2 Sat, Arterial 94.8 (L) 96.0 - 97.0 % [facility] HCO3, Arterial 31 (H) 21 - 29 mmol/L [facility] Base Excess, Arterial 5.3 (H) -2.0 - 3.0 [facility] mmol/L [facility] Patient Temperature 36.3 C [facility] FIO2 21.0 % [facility] Specimen Blood, Arterial Performing Organization Address City/[facility] Cent[facility] Phone Number [address] [address] CENTER ABORH, manual (02/05/2020 8:59 AM CDT) Pathologist Sig nature ABO Grouping AB [facility] Rh Factor POS [facility] Specimen Blood Performing Organization Address [facility] Phone Number [address] [address] Type and screen, automated (02/05/2020 8:30 AM CDT) Pathologist Sig nature ABO/RH AUTOMATED AB POSITIVE [facility] (BEAKER) [facility] Ab Scrn NEGATIVE [facility] Specimen Blood Performing Organization Address [facility] Phone Number [address] [address] ECG 12 lead (02/05/2020 6:40 AM CDT) Specimen Narrative Performed At Ventricular Rate 64 BPM GE MUSE Atrial Rate 64 BPM P-R Interval 152 ms QRS Duration 106 ms Q-T Interval 380 ms QTC Calculation(Bazett) 392 ms P [place] 51 degrees R [place] 57 degrees T [place] -21 degrees Normal sinus rhythm Incomplete left [...] 380 ms QTC Calculation(Bazett) 392 ms P [place] 51 degrees R [place] 57 degrees T [place] -21 degrees Normal sinus rhythm Incomplete left bundle branch block Nonspecific ST and T wave abnormality Abnormal ECG No previous ECGs available Confirmed by MD JHON, BLANQUITA ([id number]) on 02/05/2020 1:06:39 PM Performing Organization Address City/[facility] Cent[facility] Phone Number MUSE Hemoglobin A1c (02/05/2020 1:23 AM CDT) Pathologist Sig nature Hemoglobin A1C 8.3 (H) 4.3 - 6.1 % [facility] Specimen Blood Performing Organization Address [facility] Phone Number [address] [address] [place] Blood gas, venous (02/05/2020 1:23 AM CDT) Pathologist Sig nature pH, Cuco 7.39 7.32 - 7.42 [facility] pCO2, Cuco 52 (H) 41 - 51 mmHg [facility] pO2, Cuco 147 (H) 25 - 40 mmHg [facility] O2 Sat, Cuco 98.8 (H) 40.0 - 70.0 % [facility] HCO3, Cuco 30 (H) 21 - 29 mmol/L [facility] Base Excess, Cuco 4.3 (H) -2.0 - 3.0 [facility] mmol/L [facility] Patient Temperature 37.0 C [facility] FIO2 21.0 % [facility] Specimen Blood Performing Organization Address [facility] Phone Number [facility] [address] [place] [address] [place] Lipid panel (02/05/2020 1:22 AM CDT) Pathologist Sig nature Triglycerides 119 mg/dL [facility] DICAL [place] Cholesterol 192 mg/dL [facility] HDL 34 mg/dL [facility] LDL Calculated 134 mg/dL [facility] [place] Specimen Blood Narrative Performed At Triglyceride Reference Range: [facility] Low Risk <150 Borderline 150-199 High Risk 200-499 Very High Risk >=500 Cholesterol Reference Range: Low Risk <200 Borderline 200-239 High Risk >240 HDL Cholesterol Reference Range: Low Risk >=60 High Risk <40 LDL Cholesterol Reference Range: Optimal <100 Near Optimal 100-129 Borderline 130-159 High 160-189 Very High >=190 Apiarist ID - NELLY W Performing Organization Address City/State/Zipcode Phone Number [facility] [address] [place] [address] CENTER SARS-CoV2/RT-PCR ([facility]) (02/03/2020 8:16 PM CDT) SARS-COV2/RT-PCR Negative Not Detected, [facility] Negative, See [facility] external report CENTER for linked test SARS-COV-2 [facility] KYLIE [facility] PERFORMING LAB [facility] Specimen Other - Nasopharyngeal wall structure (b yinka structure) Narrative Performed At Negative result for this test determines that [facility] SARS-CoV-2 RNA was not present in the [...] the Act. Fact Sheet for Healthcare Providers: https://www.[employer]sites/default/files/pro duct/documents/Fact_Sheet_HC_Providers_Lyra_SA RS-CoV-2.pdf Fact Sheet for Healthcare Patients: https://www.[employer]sites/default/files/pro duct/documents/Fact_Sheet_Patients_Lyra_SARS-C oV-2.pdf Performing Laboratory: [place] [address] Performing Organization Address City/State/[place] [address] CENTER after 07/09/2019 Advance Directives For more information, please contact: [phone] Code Status Date Activated Date Inactivated Comments Full Code 02/04/2020 11:59 PM 02/06/2020 5:54 PM This code status was determined by: Patient
--- OUTSIDE RECORDS SUMMARY | 2020-07-09 04:57 | XMS REPORT | Continuity of Care Document ---
:1965 Author Organization [facility] t Address [address] [place] [address] Care Team Providers Name Role Phone Pcp [...] sleep 00:00: Medica l apnea) apnea) 00 [place] Morbid Morbid Disease Active [facility] obesity obesity 02-04 [facility] - with BMI with BMI 00:00: Medica l of of 00 Center 40.0-44.9, 40.0-44.9, adult adult Syncope Syncope Disease Active [facility] - sick sinus sick sinus 00:00: Me dical syndrome syndrome 00 [place] Sick sinus Sick sinus Disease Active C [facility] syndrome syndrome 02-03 [facility] - due to SA due to SA 00:00: Medi ajith node node 00 [place] dysfunctio dysfunctio n n Homeless Homeless Disease Active [facility] S t 02-03 [facility] - 00:00: Medical 00 Center Allergies, Adverse Reactions, Alerts This patient has no known allergies or adverse reactions. Social History Social Habit Start Date Stop Date Quantity Comments Source History [facility] - Alcohol Std Drinks Medica Center History [facility] - Alcohol Binge Medical Olya ter Sex Assigned At [facility] Alcohol intake 2020-02-06 2020-02-06 Current [facility] es - 00:00:00 00:00:00 non-drinker of Medical Ce nter alcohol (finding) History [facility] 2020-02-04 2020-02-04 1 [facility] - Alcohol Frequency 00:00:00 00:00:00 Medical Center Smoking Status Start Date Stop Date Source Current every day smoker 2020-02-06 00:00:00 [facility] Medications Ordered Filled Start Stop Current Ordering [...] Center Diastolic blood 2020-02-06 11:21:00 74 mm[Hg] [facility] S [facility] Heart rate 2020-02-06 11:21:00 80 /min [facility] Body temperature 2020-02-06 11:21:00 37.06 Marianne [facility] Respiratory rate 2020-02-06 11:21:00 18 /min [facility] Oxygen saturation in 2020-02-06 11:21:00 94 /min [facility] Arterial blood by Medical Ce nter Pulse oximetry Body weight 2020-02-05 06:35:00 120.929 kg [facility] BMI 2020-02-05 06:35:00 43.03 kg/m2 [facility] Body height 2020-02-04 22:00:00 167.6 cm [facility] Procedures Procedure Date / Time Performed Performing Clinician Elo rodriguez ARRYTHMIA IMPLANT REPORT 2020-02-20 13:41:29 Provider, Default Jamilah [facility] - - SCAN Scanning [facility] RHYTHM STRIP - SCAN 2020-02-08 09:00:23 Provider, Default [facility] ARRYTHMIA IMPLANT REPORT 2020-02-08 09:00:19 Provider, Default C LISA [facility] - - SCAN [facility] CARDIAC CATH REPORT - 2020-02-08 09:00:17 Provider, Default [facility] - SCAN [facility] TRANSFUSION SERVICE 2020-02-06 18:02:59 Provider, Default [facility] - REPORT - [facility] 2D ECHO W/ DOPPLER 2020-02-06 10:08:41 Fredrick Forrest [facility] (CW/PW/COLOR) [facility] POCT-GLUCOSE METER 2020-02-06 07:12:00 Timoteo Shipley [facility] CBC W/PLT COUNT & AUTO 2020-02-06 04:03:00 Fredrick Forrest [facility] DIFFERENTIAL [facility] BASIC METABOLIC PANEL 2020-02-06 04:02:[address] [facility] - (7) [facility] MAGNESIUM 2020-02-06 04:02:00 Fredrick Forrest [facility] POCT-GLUCOSE METER 2020-02-05 22:25:00 Timoteo Shipley [facility] XR CHEST 1 VIEW 2020-02-05 17:51:00 Eduardo Chavez [facility] - PORTABLE/BEDSIDE [facility] POCT-GLUCOSE METER 2020-02-05 16:47:00 Timoteo Shipley [facility] AICD UPGRADE - SINGLE TO 2020-02-05 12:29:00 Prem Elam [facility] - DUAL CHAMBER SYSTEM Medical Cent er BLOOD GAS, ARTERIAL 2020-02-05 11:36:00 Dulce Wilde [facility] - [facility] ABORH, MANUAL 2020-02-05 08:59:00 Tiffanie Conner [facility] TYPE AND SCREEN, 2020-02-05 08:30:00 Eduardo Chavez [facility] - AUTOMATED [facility] XR CHEST 1 VIEW 2020-02-05 06:55:00 Dulce Wilde [facility] s - PORTABLE/BEDSIDE [facility] ECG 12-LEAD 2020-02-05 06:40:35 Unknown, Hl7 Doctor [facility] HEMOGLOBIN A1C 2020-02-05 01:23:00 [facility] BLOOD GAS, VENOUS 2020-02-05 01:23:00 [facility] S [facility] CBC W/PLT COUNT & AUTO 2020-02-05 01:23:00 [facility] DIFFERENTIAL [facility] BASIC METABOLIC PANEL 2020-02-05 01:22:[address] [facility] (7) [facility] MAGNESIUM 2020-02-05 01:22:00 [facility] LIPID PANEL 2020-02-05 01:22:00 [facility] SARS-COV2/RT-PCR ([facility] & 2020-02-03 20:16:00 [facility] REF LABS) [facility] Plan of Care Planned Activity Planned Date Details Comments Source Future Scheduled 2023-02-[address] [facility] - Test 00:00:00 (procedure) [code = [facility] 31077919] Future Scheduled 2020-08-[address] [facility] - Test 00:00:00 measurement [facility] (procedure) [code = 36729718] Future Scheduled 2020-03-[address] [facility] - Test 00:00:00 (#1) [code = [facility] INFLUENZA VACCINE (#1)] Future Scheduled 1975-09-[address] DIABETIC EYE EXAM [facility] - Test 00:00:00 [code = DIABETIC EYE [facility] EXAM] Future Scheduled 1975-09-[address] [facility] - Test 00:00:00 examination [facility] (regime/therapy) [code = 635110036] Future Scheduled 1975-09-07 Urine screening [facility] - Test 00:00:00 protein (procedure) [facility] [code = 193871588] Future Scheduled [address] [facility] - Test 00:00:00 malignant neoplasm of Medica l Center colon (procedure) [code = 579324290] Encounters Start End Encounter Admission Attending Care Care Encounter Source Date/Time Date/Time Type Type Clinicians Facility Department ID 2020-06-25 2020-06-25 Telephone Ekta Lucero [id number] 00:00:00 00:00:00 [facility] [id number] [facility] 4.2.7.2.686 UNIT [id number] 2020-06-19 2020-06-19 [facility], Luis CONDON [id number] 08:48:06 09:18:06 ne Visit [facility] [id number] [facility] 4.2.7.2.686 UNIT [id number] 2020-06-18 2020-06-18 Office Bernardo, [facility] [id number] 10:24:46 11:04:52 Visit Eunice Escamilla [id number] [place] 4.2.7.2.686 Profclifio [id number] nal 059 [facility] 2020-06-12 2020-06-12 Orders Doctor OSEI [id number] 00:00:00 00:00:00 Only Unassigned, BOGDAN [id number] [place] [facility] 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 ROSSY Kingston, RDCS,RVT,RDMS 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 Linda Rodriguez, Interpreting Nilda Myles MD [...] 131 mg/dL 70-110 H : TESTED AT [facility] [address] [address]) [facility], [facility] 30: Extra Hand/Techni vanita ID = [id number] for KENDRICK HAN Lab Interpretation (test code = Abnormal 42155-9) [facility] [id number] 07:29:00 Test Item Value Reference Range Interpretation Comments POC-GLUCOSE METER 131 mg/dL 70-110 H : TESTED A T [facility] [address] (BEAKER) (test code = [place], 1538) [address]: Extra Hand/Techni vanita ID = [id number] for PO KENDRICK VORA Basic metabolic [id number] 04:43:00 Test Item Value Reference Range Interpretation Comments Sodium (test code = 137 meq/L 073-307 0375-2) Potassium (test code = 4.4 meq/L 3.5-5.1 [...] (test code = 8.2 mg/dL 8.4-10.2 L 96206-6) EGFR (test code = 112 mL/min/1.73 [place] [address]-9) NOT ACCURATE CREATININE CLEARANCE IN PREDICTING GLOMERULAR FILTRATION RATE . ESTIMATED GFR I S NOT APPLICABLE FOR DIALYSIS PATIENTS. YOMI (test code = YOMI) Extra Hand ID - NELLY Loredo Lab Interpretation Abnormal (test code = 65843-1) [facility] Monica[facility]2020-08-05 04:43:00 Test Item Value Reference Range Interpretation Comments Magnesium (test code = 1.9 mg/dL 1.6-2.6 Speci men 26493-1) slightly hemolyzed YOMI (test code = YOMI) Extra Hand ID - NELLY W Lab Interpretation Normal (test code = 12297-5) [facility]2020-08-05 04:43:00 Test Item Value Reference Range Interpretation Comments MAGNESIUM (BEAKER) 1.9 mg/dL 1.6-2.6 Specimen slightly (test code = 627) hemolyzed Extra Hand ID - NELLY WBASIC METABOLIC [id number] 04:43:00 Test Item Value Reference Range Interpretation [...] S NOT APPLICABLE FOR DIALYSIS PATIEN TS. Extra Hand ID - NELLY WCBC with platelet count + automated [id number] 04:32:00 Test Item Value Reference Range Interpretation [...] 450 K/CU MM MPV (test code = 01619-9) 11.2 fL 9.4-12.4 nRBC (test code = [...] 2801) Lab Interpretation (test code = Abnormal 47092-3) [facility] W/PLT COUNT & AUTO [id number] 04:32:00 Test Item Value Reference Range Interpretation [...] PERCENT (BEAKER) (test code = 2801) POCT-GLUCOSE [id number] 22:36:00 Test Item Value Reference Range Interpretation Comments POC-GLUCOSE METER 118 mg/dL 70-110 H : TESTED A T [facility] 67[address] (BEAKER) (test code = EVA Marcum [facility], 1538) [address]: Extra Hand/Techni vanita ID = [id number] for CA RPIO, RICARDO RAD, CHEST, 1 VIEW, NON [id number] 18:08:00Reason for exam:->Confirm pacemaker lead placementShould this [...] Vincent Verified Date/Time: 02/05/2020 18:08:29 Reading Location: [address] Transitional Reading Room XR chest 1 view portable / [id number] 18:08:00 Interface, External Ris In - 02/05/2020 [...] Vincent Verified Date/Time: 02/05/2020 18:08:29 Reading Location: [address] Transitional Reading Room [facility] [id number] 17:06:00 Test Item Value Reference Range Interpretation Comments POC-GLUCOSE METER 91 mg/dL 70-110 : TESTED A T [facility] [address] ([facility]) (test code = EVA Jossue [facility], 1538) [address]: Extra Hand/Techni vanita ID = [id number] for JADYN DOMÍNGUEZ ECG 12 [id number] 13:06:41Interface, External Ris In - 02/05/2020 1:06 PM CDTVentricular Rate 64 BPMAtrial Rate 64 BPMP-R Interval 152 msQRS Duration 106 msQ-T Interval 380 msQTC Calculation(Bazett) 392 msP Dolphin 51 degreesR Dolphin 57 degreesT Dolphin -21 degreesNormal sinus rhythmIncomplete left bundle branch blockNonspecific ST and T wave abnormalityAbnormal ECGNo previous ECGs availableConfirmed by MD JHON, BLANQUITA ([id number]) on 02/05/2020 1:06:39 [facility]ysBlood gas, [id number] 11:49:00 Test Item Value Reference Range Interpretation [...] % Lab Interpretation (test code = Abnormal 84200-7) [facility], [id number] 11:49:00 Test Item Value Reference Range Interpretation [...] (test code = 1819) 21.0 % Hemoglobin [id number] 10:59:00 Test Item Value Reference Range Interpretation Comments Hemoglobin A1C (test code = 4548-4) 8.3 % 4.3-6.1 H Lab Interpretation (test code = Abnormal 67818-1) [facility] Monica[facility]MOGLOB[facility] [id number] 10:59:00 Test Item Value Reference Range Interpretation Comments HEMOGLOBIN A1C (BEAKER) (test code = 8.3 % 4.3-6.1 H 368) ABORH, [id number] 09:54:00 Test Item Value Reference Range Interpretation Comments ABO Grouping (test code = 2588) AB Rh Factor (test code = 2589) POS [facility] MonicaType and screen, [id number] 09:35:00 Test Item Value Reference Range Interpretation Comments ABO/RH AUTOMATED (BEAKER) (test AB POSITIVE code = 2260) Ab Scrn (test code = 890-4) NEGATIVE [facility], CHEST, 1 VIEW, NON [id number] 07:14:00 Reason for exam:->hypoxiaShould this be performed [...] 40-70 H HCO3, Cuco (test code = 79818-5) 30 mmol/L 21-29 H Base Excess, Cuco (test code = 4.3 mmol/L -2-3 H 1927-3) Patient Temperature (test code = 37.0 C 8310-5) FIO2 (test code = 1819) 21 % Lab Interpretation (test code = Abnormal 73680-9) [facility] Monica[facility]OD G[facility], [id number] 02:00:00 Test Item Value Reference Range Interpretation [...] (test code = 1819) 21.0 % Lipid [id number] 01:56:00 Test Item Value Reference Range Interpretation Comments Triglycerides (test 119 mg/dL code = 2571-8) Cholesterol (test code 192 mg/dL = 2093-3) HDL (test code = 34 mg/dL 2085-9) LDL Calculated (test 134 mg/dL code = 87517-8) YOMI (test code = YOMI) Triglyceride Reference Range: Low Risk <150 Borderline 150-199 High Risk 200-499 Very High Risk >=500 Cholesterol Reference Range: Low Risk <200 Borderline 200-239 High Risk >240 HDL Cholesterol Reference Range: Low Risk >=60 High Risk <40 LDL Cholesterol Reference Range: Optimal <100 Near Optimal 100-129 Borderline 130-159 High 160-189 Very High >=190 Extra Hand GLYNN Eunice VILLEGAS W [facility] MonicaMAGNESIUM2020-08-04 01:56:00 Test Item Value Reference Range Interpretation Comments MAGNESIUM (BEAKER) (test code = 1.8 mg/dL 1.6-2.6 627) Extra Hand ID Eunice VILLEGAS WBASIC METABOLIC [id number] 01:56:00 Test Item Value Reference Range Interpretation [...] S NOT APPLICABLE FOR DIALYSIS PATIEN TS. Extra Hand ID - NELLY WLIPID [id number] 01:56:00 Test Item Value Reference Range Interpretation [...] Borderline 130-159 High 160-189 Very High >=190 Extra Hand ID - NELLYWCBC W/PLT COUNT & AUTO [id number] 01:42:00 Test Item Value Reference Range Interpretation [...] PERCENT (BEAKER) (test code = 2801) SARS-CoV2/RT-PCR ([facility] Ref Labs)2020-02-04 10:32:00 Test Item Value Reference Range Interpretation Comments SARS-COV2/RT-PCR Negative Not Detected, (test code = Negative, See 96340-5) external report for linked test SARS-COV-2 [facility] PERFORMING LAB (test code = 06093-2) YOMI (test code = Negative result for [...] of the Act. Fact Sheet for Healthcare Providers:https://www.250ok.mVakil - [employer] Cases Live/sites/default/f angelina/product/documents/F act_Sheet_HC_Providers_L kga_SIIS-ZhG-3.pdf Fact Sheet for Healthcare Patients:https://www.[employer].mVakil - Track Court Cases Live/sites/default/fi les/product/documents/Fa ct_Sheet_Patients_Lyra_S ARS-CoV-2.pdf Performing Laboratory:[facility] [place] [address] [facility])2020-02-04 10:32:00 Test Item Value Reference Range Interpretation Comments SARS-COV2/RT-PCR (test Negative Not Detected, Negative, code = 8759065) See external report for linked test SARS-COV-2 PERFORMING LAB [facility] (test code = 5477713) Negative result for this test determines that [...] 564(g) of the Act.Fact Sheet for Healthcare Providers:https://www.Blip.mVakil - [employer] [address] Cases Live/sites/default/files/product/documents/Fact_Shemichael j_NT_Twuftjqfc_Wtsk_NOAL-SmJ-5.pdfFact Sheet for Healthcare Patients:https://www.Blip.com/sites/default/files/product/ documents/Frlb_Hasrl_Zgzrlalm_Ifpc_PWSW-GeH-1.pdfPerforming Laboratory:[facility] [place] [address]
[2020-07-09 05:40] LABS: Absolute Lymphocytes (CBC) 1.3 K/uL (0.7-4.9); Basophils % 0.9 % (0-1.3); Hematocrit 36.6 % (39.6-49.0); Lymphocytes % 14.5 % (15.3-44.8); MPV 8.7 fL (7.6-11.3); RBC Red Blood Cell Count 4.53 M/uL (4.33-5.43)
[2020-07-09] MEDS ORDERED: DIPHENHYDRAMINE 50 MG/ML VIAL ONE (05:48)
[2020-07-09 05:57] LABS: BUN Blood Urea Nitrogen 15 mg/dL (7-18); Bicarbonate 28 mmol/L (21-32); Glucose Level 130 mg/dL (74-106); Potassium 3.7 mmol/L (3.5-5.1); Sodium Level 136 mmol/L (136-145); Troponin (Emerg Dept Use Only) < 0.02 ng/mL (0.0-0.045)
--- NOTE | 2020-07-09 06:06 | ER ---
Nurse's Notes [facility] Name: Juan Miguel Langston Age: 54 yrs Sex: Male : 1965 Arrival Date: 07/09/2020 Time: 04:56 Bed 15 Private MD: None, None Diagnosis: Adverse effect of other systemic antibiotics;Dyspnea, unspecified Presentation: 07/09 05:13 Chief complaint: EMS states: pt started a new antibiotics yesterday, clindamycin and ll2 this even around midnight began feeling short of breath and rapid breathing. pt denies any pain at this time but states he did have chest pain earlier. Coronavirus screen: Client denies travel out of the [place] in the last 14 days. At this time, the client does not indicate any symptoms associated with coronavirus-19. Ebola Screen: Patient negative for fever greater than or equal to 101.5 degrees Fahrenheit, and additional compatible Ebola Virus Disease symptoms. Initial Sepsis Screen: Does the patient meet any 2 criteria? No. Patient's initial sepsis screen is negative. Does the patient have a suspected source of infection? No. Patient's initial sepsis screen is negative. Risk Assessment: Do you want to hurt yourself or someone else? Patient reports no desire to harm self or others. Onset of symptoms was July 08, 2020. 05:13 Method Of Arrival: EMS[facility] 05:13 Acuity: DESTINY 2 ll2 Triage Assessment: 05:17 General: Appears in no apparent distress. Behavior is calm, cooperative. Pain: Denies ll2 pain. EENT: No deficits noted. Neuro: Level of Consciousness is awake, alert, obeys commands, Oriented to person, place, time, situation. Cardiovascular: Patient's skin is warm and dry. Respiratory: Reports labored breathing since last night around 1800 the patient has mild shortness of breath. GI: No signs and/or symptoms were reported involving the gastrointestinal system. : No signs and/or symptoms were reported regarding the genitourinary system. Derm: Skin is intact, has blisters on noted to lower rt leg. Musculoskeletal: Circulation, motion, and sensation intact. Range of motion: intact in all extremities. 06:20 Respiratory: Onset: The symptoms/episode began/occurred gradually. ll2 Historical: - Allergies: 05:17 Azithromycin; ll2 05:17 Beta-Blockers (Beta-Adrenergic Bloc; ll2 05:17 Demerol; ll2 05:17 Metoprolol Tartrate; ll2 - Home Meds: 05:17 aspirin 325 mg Oral tab [Active]; clopidogrel 75 mg Oral tab 1 tab once daily [Active]; ll2 Eliquis 5 mg Oral tab 1 tab 2 times per day [Active]; isosorbide dinitrate 30 mg Oral tab daily [Active]; Lasix 40 mg Oral tab once daily [Active]; lisinopril 40 mg Oral tab once daily [Active]; Livalo 4 mg Oral tab 1 tab nightly [Active]; metformin er 500 mg BID [Active]; nitroglycerin 0.4 mg SL subl 1 tab every 5 minutes [Active]; Norvasc 10 mg Oral tab 1 tab once daily [Active]; Phenergan 25 mg Q6H prn n/v Oral [Active]; ProAir HFA 90 mcg/actuation inhalation HFAA 2 puffs every 6 hours [Active]; tramadol 50 mg Oral tab 1 tab every 6 hours for Pain [Active]; - Immunization history:: Adult Immunizations unknown. - Social history:: Smoking status: Patient reports the use of cigarette tobacco products, smokes one pack cigarettes per day. - Family history:: not pertinent. - Hospitalizations: : No recent hospitalization is reported. Screenin:20 Abuse screen: Denies threats or abuse. Nutritional screening: No deficits noted. ll2 Tuberculosis screening: No symptoms or risk factors identified. Fall Risk None identified. Assessment: 05:20 Reassessment: see triage assessment. ll2 06:19 Cardiovascular: Rhythm is regular. Respiratory: Airway is patent Respiratory effort is ll2 even, Breath sounds are clear. Vital Signs: 05:13 BP 156 / 78; Pulse 81; Resp 19; Temp 98.3; Pulse Ox 92% ; ll2 05:15 BP 156 / 78; Pulse 91; Resp 19; Temp 98.3; Pulse Ox 97% on R/A; ll2 06:18 BP 156 / 78; Pulse 91; Resp 19; Pulse Ox 97% on R/A; ll2 ED Course: 04:56 Patient arrived in ED. rn 04:58 Nate Donald MD is Attending Physician. rn 05:05 None, None is Private Physician. sg 05:12 [place], Magda, RN is Primary Nurse. ll2 05:16 Triage completed. ll2 05:20 Inserted saline lock: 22 gauge in left hand, using aseptic technique. Blood collected. ds4 05:20 No provider procedures requiring assistance completed. ll2 05:20 Patient has correct armband on for positive identification. Call light in reach. Side ll2 rails up X 1. vocational teacher on. Pulse ox on. NIBP on. 05:31 CBC with Diff Sent. ds4 05:31 Basic Metabolic Panel Sent. ds4 05:31 Troponin (emerg Dept Use Only) Sent. ds4 06:19 IV discontinued, intact, bleeding controlled, No redness/swelling at site. Pressure ll2 dressing applied. 06:20 Arm band placed on. ll2 06:35 XRAY Chest (1 view) In Process Unspecified. EDMS Administered Medications: 05:45 Drug: Benadryl 25 mg Route: IVP; Site: right hand; ll2 06:16 Follow up: Response: No adverse reaction ll2 06:16 Drug: SOLU-Medrol 125 mg Route: IVP; Site: left hand; ll2 06:16 Follow up: Response: Medication administered at discharge. ll2 Intake: 05:15 IV: 100ml; Total: 100ml. ll2 Outcome: 06:05 Discharge ordered by . rn 06:19 Discharged to home ambulatory. ll2 06:19 Condition: stable 06:19 Discharge instructions given to patient, Instructed on discharge instructions, follow up and referral plans. medication usage, Demonstrated understanding of instructions, follow-up care, medications, Prescriptions given X 2. 06:20 Patient left the ED. ll2 Signatures: Dispatcher [employer] EDMS Mehul Deluca RN RN sg Nieto, Roman, MD MD rn Swanson, Donovan ds4 Magda Dumont, NICCI RN ll2
--- NOTE | 2020-07-09 06:06 | EDPHYS ---
Physician Documentation [facility] Name: Juan Miguel Langston Age: 54 yrs Sex: Male : 1965 Arrival Date: 07/09/2020 Time: 04:56 Bed 15 Private MD: None, None ED Physician Nate Donald HPI: 07/09 05:35 This 54 yrs old Male presents to ER via EMS with complaints of Shortness Of rn Breath. 05:35 The patient has shortness of breath at rest. Onset: The symptoms/episode began/occurred rn Midnight. Duration: The symptoms are continuous. The patient's shortness of breath is aggravated by nothing, is alleviated by nothing. Associated signs and symptoms: Pertinent positives: diaphoresis, dizziness, Pertinent negatives: chest pain, non-productive cough, productive cough, fever, hemoptysis. Severity of symptoms: At their worst the symptoms were moderate in the emergency department the symptoms have improved. The patient has experienced a previous episode. The patient has been recently seen at the [facility] Emergency Department. Reports took clindamycin at 6pm, felt ok, then around midnight began to feel sob, sweaty, anxious, tingling of face and extremities. Reports happened once before and attributed it to another antibiotic. Seen yesterday for cellulitis and given this clindamycin. . Historical: - Allergies: 05:17 Azithromycin; ll2 05:17 Beta-Blockers (Beta-Adrenergic Bloc; ll2 05:17 Demerol; ll2 05:17 Metoprolol Tartrate; ll2 - Home Meds: 05:17 aspirin 325 mg Oral tab [Active]; clopidogrel 75 mg Oral tab 1 tab once daily [Active]; ll2 Eliquis 5 mg Oral tab 1 tab 2 times per day [Active]; isosorbide dinitrate 30 mg Oral tab daily [Active]; Lasix 40 mg Oral tab once daily [Active]; lisinopril 40 mg Oral tab once daily [Active]; Livalo 4 mg Oral tab 1 tab nightly [Active]; metformin er 500 mg BID [Active]; nitroglycerin 0.4 mg SL subl 1 tab every 5 minutes [Active]; Norvasc 10 mg Oral tab 1 tab once daily [Active]; Phenergan 25 mg Q6H prn n/v Oral [Active]; ProAir HFA 90 mcg/actuation inhalation HFAA 2 puffs every 6 hours [Active]; tramadol 50 mg Oral tab 1 tab every 6 hours for Pain [Active]; - Immunization history:: Adult Immunizations unknown. - Social history:: Smoking status: Patient reports the use of cigarette tobacco products, smokes one pack cigarettes per day. - Family history:: not pertinent. - Hospitalizations: : No recent hospitalization is reported. ROS: 05:35 Constitutional: Negative for fever, chills, and weight loss, Eyes: Negative for injury, rn pain, redness, and discharge, Neck: Negative for injury, pain, and swelling, Cardiovascular: Negative for edema, Respiratory: Negative for cough, wheezing, and pleuritic chest pain, Abdomen/GI: Negative for abdominal pain, nausea, vomiting, diarrhea, and constipation, Back: Negative for injury and pain, : Negative for injury, bleeding, discharge, and swelling, MS/Extremity: Negative for injury and deformity, Skin: Negative for injury, rash, and discoloration, Neuro: Negative for headache, weakness, and seizure. Exam: 05:35 Constitutional: Overweight male, anxious Head/Face: Normocephalic, atraumatic. Eyes: rn Pupils equal round and reactive to light, extra-ocular motions intact. Periorbital areas with no swelling, redness, or edema. ENT: No oral swelling or stridor Cardiovascular: Regular rate and rhythm. No pulse deficits. Respiratory: No increased work of breathing, no retractions or nasal flaring. Abdomen/GI: soft, non-tender Skin: Warm, dry, no rash MS/ Extremity: Pulses equal, no cyanosis. Neuro: Awake and alert, GCS 15, oriented to person, place, time, and situation. Cranial nerves II-XII grossly intact. Motor strength 5/5 in all extremities. Sensory grossly intact. Cerebellar exam normal. 06:10 ECG was reviewed by the Attending Physician. rn Vital Signs: 05:13 BP 156 / 78; Pulse 81; Resp 19; Temp 98.3; Pulse Ox 92% ; ll2 05:15 BP 156 / 78; Pulse 91; Resp 19; Temp 98.3; Pulse Ox 97% on R/A; ll2 06:18 BP 156 / 78; Pulse 91; Resp 19; Pulse Ox 97% on R/A; ll2 MDM: 04:58 Patient medically screened. rn 06:03 Differential diagnosis: Anxiety Reaction Chronic Obstructive Pulmonary Disease rn Psychogenic adverse reaction to medication. Data reviewed: vital signs, nurses notes, lab test result(s), EKG, radiologic studies, plain films. Test interpretation: by ED physician or midlevel provider: plain radiologic studies, CXR neg for pneumothorax or infiltrate. Counseling: I had a detailed discussion with the patient and/or guardian regarding: the historical points, exam findings, and any diagnostic results supporting the discharge/admit diagnosis, lab results, radiology results, the need for outpatient follow up, to return to the emergency department if symptoms worsen or persist or if there are any questions or concerns that arise at home. Response to treatment: the patient's symptoms have markedly improved after treatment, sleeping comfortably.. Special discussion: I discussed with the patient/guardian in detail that at this point there is no indication for admission to the hospital. It is understood, however, that if the symptoms persist or worsen the patient needs to return immediately for re-evaluation. ED course: Unclear etiology, patient insists adverse reaction to clindamycin given has happened to him before, will dc home with steroids and new abx. Sleeping comfortably. Feels better. Neg trop and no acute findings on cxr or bloodwork.. 07/09 04:57 Order name: CBC with Diff; Complete Time: 05:57 rn 07/09 04:57 Order name: Basic Metabolic Panel; Complete Time: 05:59 rn 07/09 04:57 Order name: XRAY Chest (1 view) rn 07/09 04:57 Order name: Troponin (emerg Dept Use Only); Complete Time: 05:59 rn 07/09 04:57 Order name: IV Start; Complete Time: 05:31 rn EC:10 Rate is 88 beats/min. Rhythm is regular. QRS [place] is Normal. MI interval is normal. QRS rn interval is normal. QT interval is normal. No Q waves. T waves are Normal. Clinical impression: NSR w/ Non-specific ST/T Changes and No change from prior ECG. Interpreted by me. Reviewed by me. Administered Medications: 05:45 Drug: Benadryl 25 mg Route: IVP; Site: right hand; ll2 06:16 Follow up: Response: No adverse reaction ll2 06:16 Drug: SOLU-Medrol 125 mg Route: IVP; Site: left hand; ll2 06:16 Follow up: Response: Medication administered at discharge. ll2 Disposition: 07/09/20 06:05 Discharged to Home. Impression: Adverse effect of other systemic antibiotics, Dyspnea, unspecified. - Condition is Stable. - Discharge Instructions: Hyperventilation, Shortness of Breath. - Prescriptions for Keflex 500 mg Oral Capsule - take 1 capsule by ORAL route every 12 hours for 10 days; 20 capsule. Prednisone 20 mg Oral Tablet - take 3 tablet by ORAL route once daily for 5 days; 15 tablet. - Medication Reconciliation Form, Thank You Letter, Antibiotic Education, Prescription Opioid Use form. - Follow up: Private Physician; When: As needed; Reason: Recheck today's complaints, Re-evaluation by your physician. - Problem is new. - Symptoms have improved. Signatures: Dispatcher [employer] EDMS Nate Donald MD MD rn [place], Lacie, RN RN ll2 Corrections: (The following items were deleted from the chart) 06:20 06:05 07/09/2020 06:05 Discharged to Home. Impression: Adverse effect of other systemic ll2 antibiotics; Dyspnea, unspecified. Condition is Stable. Forms are Medication Reconciliation Form, Thank You Letter, Antibiotic Education, Prescription Opioid Use. Follow up: Private Physician; When: As needed; Reason: Recheck today's complaints, Re-evaluation by your physician. Problem is new. Symptoms have improved. rn
[2020-07-09] MEDS ORDERED: METHYLPREDNISOLONE 125 MG INJ ONE (06:20)
[2020-07-09 07:05] VITALS: BP 156/78; TEMP 98.3
[2020-07-09 07:09] VITALS: O2SAT 97
--- NOTE | 2020-07-09 08:39 | RAD REPORT ---
EXAM DESCRIPTION: RAD - Chest Single View - 07/09/2020 6:34 am CLINICAL HISTORY: DYSPNEA COMPARISON: Portable June 26, 2020 TECHNIQUE: AP portable chest image was obtained 07/09/2020 6:34 am . FINDINGS: No focal lung parenchymal process. Interstitial pattern matches comparison. No subtle airs pace disease confirmed as possible early COVID-19 pneumonia. Pacemaker is in place. Heart and vascula ture are normal. No measurable pleural effusion and no pneumothorax. No acute bony abnormality seen. No acute aortic findings suspected. IMPRESSION: No acute cardiopulmonary process. No significant change from June 26, 2020 imaging. Patient continues to have unexplained symptoms, CT chest imaging could be performed to evaluate for s ubtle airspace disease that is occult on portable imaging.
--- NOTE | 2020-07-09 17:32 | EKG ---
Test Date: 2020-07-09 Test Time: 04:54:51 Hand I Cutter: CARLA MEASUREMENT RESULTS: Intervals: Rate: 88 GA: 142 QRSD: 96 QT: 356 QTc: 430 Brilliant: P: 52 GA: 142 QRS: 78 T: -20 INTERPRETIVE STATEMENTS: Normal sinus rhythm Nonspecific ST and T wave abnormality Abnormal ECG Compared to ECG 06/25/2020 01:09:09 Possible ischemia no longer present ST (T wave) deviation still present Electronically Signed On 07-09-20 17:31:19 KNIFE MACHINE OPERATOR by Nazario Anderson
== END 2020-07-09 06:20 | disposition home or self-care (01) ==
LOC: ER 04:53
DX: R06.00 Dyspnea, unspecified (principal); T36.8X5A Adverse effect of other systemic antibiotics, initial encounter; F17.210 Nicotine dependence, cigarettes, uncomplicated; Z79.01 Long term (current) use of anticoagulants; Z79.82 Long term (current) use of aspirin; Z88.1 Allergy status to other antibiotic agents; Z88.5 Allergy status to narcotic agent; Z88.8 Allergy status to other drugs, medicaments and biological substances
CPT/HCPCS: 36415; 71045; 80048; 84484; 85025; 93005; 99284; J1200; J2930

== ENCOUNTER 2020-07-15 15:11 | Emergency (ER) | payer OTHER ==
--- OUTSIDE RECORDS SUMMARY | 2020-07-15 15:21 | XMS REPORT | Clinical Summary ---
:1965 Author Organization [facility] Address [address] [place] [address] Care Team Providers Name Role Phone Pcp, [...] Reilly MD 02/03/2020 Lab Requisition Lab after 07/15/2019 Social History Tobacco Use Types Packs/Day Years [...] Completed 04/20/2019, 2013 Implants Implanted Type Area Holiday Detector Operator Device Identifier Shelf Model / Expiration Serial / Date Lot Lead Pacemkr Cecily [place] 52x1 [id number] - [id number] PACEMAKER/I [employer]:CARD [id number] 09/27/2021 [id number] / Implanted: Qty: 1 on 02/05/2020 by Prem Herron MD at [facility] CD CHAMBER RHY:DISEASE MGT [id number] / DEVICE Description:Ventricular Lead Lead Pacemkr Cecily Tovar 45x1 [id number] - [id number] PACEMAKER/IC D [employer]:CARD [id number] 08/28/2021 [id number] / Implanted: Qty: 1 on 02/05/2020 by Prem Herron MD at [facility] CHAMBER DEVICE RHY:DISEASE MGT [id number] / Description:Atrial Lead Pacemkr [place] Xtdr Mri Ipg [id number] - [id number] PACEMAKER/ICD [employer]:CARD [id number] 05/31/2021 [id number] / Implanted: Qty: 1 on 02/05/2020 by Prem Herron MD at [facility] CHAMBER DEVICE RHY:PACING SYS [id number] / Description:Chest Procedures Procedure Name Priority Date/Time [...] 380 ms QTC Calculation(Bazett) 392 ms P Manteno 51 degrees R Manteno 57 degrees T Manteno -21 degrees Normal sinus rhythm Incomplete left [...] i n the results section . after 07/15/2019 Results ARRYTHMIA IMPLANT REPORT - SCAN (02/20/2020 [...] AM CDT) Pathologist Sig nature Ejection Fraction [facility] Specimen Narrative Performed At Transthoracic Echocardiography Report (T TE) [facility] Demographics Patient Name JUAN MIGUEL VALLE Date of Study 02/06/2020 RU Gender Male Visit Number [id number] Race Unknown Room Number 636 Number Date of 1965 Referring Fredrick Forrest Physician Age 54 year(s) Tuckpointer Lilia Kingston, RDCS,RVT,RDMS Environmental Aide Linda Rodriguez, Interpreting Nilda Myles MD RDCS [...] Study 02/06/2020 RU Gender Male Visit Number [id number] Race Unknown Room Num [place] [address] Number Date of 1965 Justin Mockcherrifantamsa Physicia n Age 54 year(s) Sonograp her NaROSSY Mata, RDCS,RVT,RDMS Environmental Aide Anthony Lezama MD RDCS Physicia n Procedure [...] TR Gradient: 23.87 mmHg Performing Organization Address City/[facility] Phone Number [facility] MKCKESSON CPACS POC-Glucose meter (02/06/2020 7:12 AM CDT)Only the most recent of3 results within the time period is included. [facility] Signature POC-Glucose Meter 131 (H)Comment: 70 - 110 mg/dL [facility] : TESTED AT [address], [address]: Warehouse Selector/Technic oswaldo ID = [id number] for KENDRICK HAN Specimen Blood Performing Organization Address [facility] Phone Number [place] [phone] CENTER CBC with platelet count + automated diff (02/06/2020 4:03 AM CDT)Only the most recent of2 resultswithin the time period is included. Pathologist Sig nature WBC 8.1 3.5 - 10.5 [facility] K/L [facility] RBC 5.09 4.63 - 6.08 [facility] M/L [facility] Hemoglobin 13.5 (L) 13.7 - 17.5 [facility] GM/DL [facility] Hematocrit 45.1 40.1 - 51.0 % [facility] MCV 88.6 79.0 - 92.2 fL [facility] MCH 26.5 25.7 - 32.2 pg [facility] MCHC 29.9 (L) 32.3 - 36.5 [facility] GM/DL [facility] RDW 15.9 (H) 11.6 - 14.4 % [facility] Platelets 265 150 - 450 K/CU [facility] MPV 11.2 9.4 - 12.4 fL [facility] nRBC 0 0 - 0 /100 WBC [facility] % Neutros 65 % [facility] % Lymphs 24 % [facility] % Monos 9 % [facility] % Eos 1 % [facility] % Baso 0 % [facility] # Neutros 5.27 1.78 - 5.[address] [facility] # Lymphs 1.96 1.32 - 3.[address] [facility] # Monos 0.69 0.30 - 0.[address] [facility] # Eos 0.08 0.04 - 0.[address] [facility] # Baso 0.03 0.01 - 0.[address] [facility] Immature 0 0 - 1 % [facility] Specimen Blood Performing Organization Address City/State/Zipcode Phone Number [facility] [address] [place] [address] CENTER Magnesium (02/06/2020 4:02 AM CDT)Only the most recent of2 resultswithin the time period is included. Pathologist Sig nature Magnesium 1.9Comment: Specimen 1.6 - 2.6 mg/dL [facility] slightly hemolyzed [facility] Specimen Blood Narrative Performed At Warehouse Selector ID - NELLY Loredo [facility] Performing Organization Address City/[facility]/Zipcode Phone Number [facility] [address] [place] [address] CENTER Basic metabolic panel (02/06/2020 4:02 AM CDT)Only the most recent of2 results within the time period is included. Sodium 137 136 - 145 meq/L [facility] Potassium 4.4Comment: Specimen 3.5 - 5.1 meq/L [facility] Chloride 101 98 - 107 meq/L [facility] CO2 28 22 - 29 meq/L [facility] BUN 13 7 - 21 mg/dL [facility] Creatinine 0.73Comment: 0.57 - 1.25 [facility] Specimen slightly mg/dL [facility] hemolyzed [place] Glucose 124 (H) 70 - 105 mg/dL [facility] Calcium 8.2 (L) 8.4 - 10.2 [facility] mg/dL [facility] EGFR 112Comment: mL/min/1.73 sq [facility] ESTIMATED GFR IS NOT m [facility] ACCURATE [place] CREATININE CLEARANCE IN PREDICTING GLOMERULAR FILTRATION RATE. ESTIMATED GFR IS NOT APPLICABLE FOR DIALYSIS PATIENTS. Specimen Blood Narrative Performed At Warehouse Selector ID - NELLY Loredo [facility] Performing Organization Address City/[facility]/Zipcode Phone Number [facility] [address] [place] [address] [place] XR chest 1 view portable / bedside [...] Verified Date/Time: 02/05/2020 18:08:29 Reading Location: [address] Reading Room Procedure Note Interface, External [...] Verified Date/Time: 02/05/2020 1 8:08:29 Reading Location: [address] Reading Room Performing Organization Address City/State/Zipcode Phone Number [facility] Blood gas, arterial (02/05/2020 11:36 AM CDT) Pathologist Sig nature pH, Arterial 7.42 7.35 - 7.45 [facility] pCO2, Arterial 48 (H) 35 - 45 mmHg [facility] pO2, Arterial 70 (L) 80 - 90 mmHg [facility] O2 Sat, Arterial 94.8 (L) 96.0 - 97.0 % [facility] HCO3, Arterial 31 (H) 21 - 29 mmol/L [facility] Base Excess, Arterial 5.3 (H) -2.0 - 3.0 [facility] mmol/L [facility] Patient Temperature 36.3 C [facility] FIO2 21.0 % [facility] Specimen Blood, Arterial Performing Organization Address City/[facility] Phone Number [address] [address] CENTER ABORH, manual (02/05/2020 8:59 AM CDT) Pathologist Sig nature ABO Grouping AB [facility] AZLE Rh Factor POS [facility] [place] [facility] Specimen Blood Performing Organization Address [facility] Phone Number [address] [address] Type and screen, automated (02/05/2020 8:30 AM CDT) Pathologist Sig nature ABO/RH AUTOMATED AB POSITIVE [facility] (BEAKER) [facility] Ab Scrn NEGATIVE [facility] Specimen Blood Performing Organization Address [facility] Phone Number [address] [address] ECG 12 lead (02/05/2020 6:40 AM CDT) Specimen Narrative Performed At Ventricular Rate 64 BPM GE MUSE Atrial Rate 64 BPM P-R Interval 152 ms QRS Duration 106 ms Q-T Interval 380 ms QTC Calculation(Bazett) 392 ms P Manteno 51 degrees R Manteno 57 degrees T Manteno -21 degrees Normal sinus rhythm Incomplete left [...] 380 ms QTC Calculation(Bazett) 392 ms P Manteno 51 degrees R Manteno 57 degrees T Manteno -21 degrees Normal sinus rhythm Incomplete left bundle branch block Nonspecific ST and T wave abnormality Abnormal ECG No previous ECGs available Confirmed by MD JHON, BLANQUITA ([id number]) on 02/05/2020 1:06:39 PM Performing Organization Address City/[facility] Phone Number MUSE Hemoglobin A1c (02/05/2020 1:23 AM CDT) Pathologist Sig nature Hemoglobin A1C 8.3 (H) 4.3 - 6.1 % [facility] Specimen Blood Performing Organization Address [facility] Phone Number [address] [address] [place] Blood gas, venous (02/05/2020 1:23 AM CDT) Pathologist Sig nature pH, Cuco 7.39 7.32 - 7.42 [facility] pCO2, Cuco 52 (H) 41 - 51 mmHg [facility] pO2, Cuco 147 (H) 25 - 40 mmHg [facility] O2 Sat, Cuco 98.8 (H) 40.0 - 70.0 % [facility] HCO3, Cuco 30 (H) 21 - 29 mmol/L [facility] Base Excess, Cuco 4.3 (H) -2.0 - 3.0 [facility] mmol/L [facility] Patient Temperature 37.0 C [facility] FIO2 21.0 % [facility] Specimen Blood Performing Organization Address [facility] Phone Number [facility] [address] [place] [address] [place] Lipid panel (02/05/2020 1:22 AM CDT) Pathologist Sig nature Triglycerides 119 mg/dL [facility] D[facility] [place] Cholesterol 192 mg/dL [facility] HDL 34 mg/dL [facility] LDL Calculated 134 mg/dL [facility] ED[facility] [place] Specimen Blood Narrative Performed At Triglyceride Reference Range: [facility] Low Risk <150 Borderline 150-199 High Risk 200-499 Very High Risk >=500 Cholesterol Reference Range: Low Risk <200 Borderline 200-239 High Risk >240 HDL Cholesterol Reference Range: Low Risk >=60 High Risk <40 LDL Cholesterol Reference Range: Optimal <100 Near Optimal 100-129 Borderline 130-159 High 160-189 Very High >=190 Warehouse Selector ID - NELLY W Performing Organization Address City/State/Zipcode Phone Number [facility] [address] [place] [address] CENTER SARS-CoV2/RT-PCR ([facility]) (02/03/2020 8:16 PM CDT) SARS-COV2/RT-PCR Negative Not Detected, [facility] Negative, See [facility] external report CENTER for linked test SARS-COV-2 [facility] KYLIE [facility] PERFORMING LAB [facility] Specimen Other - Nasopharyngeal wall structure (b yinka structure) Narrative Performed At Negative result for this test determines that [facility] SARS-CoV-2 RNA was not present in [...] the Act. Fact Sheet for Healthcare Providers: https://www.[employer]/sites/default/files/pro duct/documents/Fact_Sheet_HC_Providers_Lyra_SA RS-CoV-2.pdf Fact Sheet for Healthcare Patients: https://www.[employer]/sites/default/files/pro duct/documents/Fact_Sheet_Patients_Lyra_SARS-C oV-2.pdf Performing Laboratory: [place] [address] Performing Organization Address City/State/Zipcode Phone Number [place] [phone] CENTER after 07/15/2019 Advance Directives For more information, please contact: [phone] Code Status Date Activated Date Inactivated Comments Full Code 02/04/2020 11:59 PM 02/06/2020 5:54 PM This code status was determined by: Patient
--- OUTSIDE RECORDS SUMMARY | 2020-07-15 16:00 | XMS REPORT | Summary of Care ---
:1965 Author Organization [facility] [place] [address] [place] [address] Care Team Providers Name Role Phone JOSEFINA Lucero Primary Care Provider Encounter Details Date Type Department Care Team Description 07/10/2020 Telemedicine Visit [facility] Nic EktaJOSEFINA [address] [place] [address] Cellulitis of right lower extremity with out foot (Primary Dx); [facility], [facility] Essential hypertension [facility] [place] [address] Allergies Active Allergy Reactions Severity Noted Date Comments Azithromycin Swelling High 08/11/2018 Throat swells Metoprolol Other - See comments 07/11/2018 Lowers heart rate too low documented as of this encounter (statuses as of 07/10/2020) Medications Medication Sig Dispensed Refills Start End Date Status Date Pitavastatin Take 1 tablet 90 tablet 3 Act warren (LIVALO) 4 mg by mouth daily. 0 TabIndications: Mixed hyperlipidemia budesonide-formoter Inhale 2 Puffs 10.2 g 11 [...] of pulmonary disease, Breath. unspecified COPD type methocarbamoL Take 1 tablet 30 tablet 1 Ac tive (ROBAXIN-750) 750 by mouth 4 0 mg (four) times tabletIndications: daily as needed Atypical chest for Pain (scale pain, Acute pain of 7-10). left shoulder metformin ER 500 mg Take 1 tablet 60 tablet 5 Active 24 hr by mouth 2 0 tabletIndications: (two) times Borderline diabetes daily with mellitus meals. amLODIPine 10 mg Take 1 tablet 30 tablet 5 Active tabletIndications: by mouth daily. 0 Essential hypertension lisinopriL 40 mg Take 1 tablet 30 tablet 5 Active tabletIndications: by mouth daily. 1 Essential hypertension doxycycline hyclate Take 1 tablet 20 tablet 0 Active 100 mg by mouth 2 1 21 tabletIndications: (two) times Cellulitis of right daily for 10 lower extremity days. without foot triamcinolone Apply to 30 g 1 Active acetonide 0.1 % area(s) 2 (two) 1 ointmentIndications times daily. : Cellulitis of right lower extremity without foot lisinopril 40 mg Take 1 tablet 30 tablet 5 07/10/19 Discontinued tabletIndications: by mouth daily. 0 21 (Reorder) Essential hypertension documented as of this encounter (statuses as of 07/10/2020) Active Problems Problem Noted Date Pulmonary embolism [...] as of this encounter (statuses as of 07/10/2020) Immunizations Name Administration Dates Next Due Influenza [...] encounter Progress Notes Ekta Lucero FNP - 07/10/2020 8:30 AM CST TELEMEDICINE VISIT Patient verbalized [...] obtain video call option. Location of Patient: [facility] in [facility] Location of Provider: Home Date of Service: 07/10/2020 Chief Complaint: Hospital follow up HPI: Juan Miguel Langston is a 54 year old male being seen for a hospital follow up after being seen in the ED of [facility] last week after falling from a chair when he fell asleep. Pt reports sustained fractures to his nose and 2 ribs. States he is sore but pain is overall controlled. He also reports that he went back to the ED on 07/08/20 for itching, redness and swelling to his right anteriorlower extremity. Reports that he had cellulitis. Was given 2 injections of antibiotics and oral clindamycin, then discharged. Can not tolerate the oral clindamycin. His SO states he got paranoid and"goofy". Also states the leg is much better today. The itching is better but he still has the redness and swelling. Have requested OSH records. Requesting refills on lisinopril 40mg Denies fevers or chills. Past Medical History: Diagnosis Date Arthritis CAD (coronary artery disease) RCA with 30-40% lesion Diabetes mellitus Heart murmur HLD (hyperlipidemia) HTN (hypertension) Obesity (BMI 30.0-34.9) Pacemaker February 2020 PE (pulmonary thromboembolism) Sinus pause up to 4.7 seconds at night during hospitalization in november 2013 Tobacco abuse MEDICATIONS: Current Outpatient Medications Medication Sig Dispense Refill doxycycline hyclate 100 mg tablet Take 1 tablet by mouth 2 (two) times daily for 10 days. 20 tablet 0 lisinopriL 40 mg tablet Take 1 tablet by mouth daily. 30 tablet 5 triamcinolone acetonide 0.1 % ointment Apply to area(s) 2 (two) times daily. 30 g 1 amLODIPine 10 mg tablet Take 1 tablet [...] tablet Take 30 mg by mouth daily. methocarbamoL (ROBAXIN-750) 750 mg tablet Take 1 tablet by mouth 4 (four) times daily as needed for Pain (scale 7-10). 30 tablet 1 furosemide 40 mg tablet Take 1 tablet [...] 2 (two) times daily. 10.2 g 11 Pitavastatin (LIVALO) 4 mg Tab Take 1 tablet by mouth daily. 90 tablet 3 No current facility-administered medications for this visit. [...] person, place, and time. Labs: reviewed in [employer] EMR. ASSESSMENT/PLAN: Juan Miguel Langston is a 54 year old male with PMH as above presenting with: Pt and SO are still living on the streets of [place]. Pt states his daughter is trying to get a van for them so that they can get out of the elements Pt states that the homeless shelters are closed in their area due to the Covid resurgence and they are not willing or able to travel to [place] or [place] to seek retirement They are staying outside a laundry mat in [place] that has a carport that protects them from the rain but is not enclosed to help with the cold. He reports they do not have a bed but he was given a lawn chair that reclines yesterday and was able to sleep fairly well last night. Pt has difficulty co ntrolling daytime sleepiness which may or may not be due to sleep apnea. He has been told that he needs a C-pap machine but the Indigent program doesn't cover DME equipment or supplies. The other issue is that he doesn't have adequate retirement and electricity to use and care for the equipment appropriately. 1. Essential hypertension - lisinopriL 40 mg tablet; Take 1 tablet by mouth daily. Dispense: 30 tablet; Refill: 5 2. Cellulitis of right lower extremity without foot - doxycycline hyclate 100 mg tablet; Take 1 tablet by mouth 2 (two) times daily for 10 days. Dispense: 20 tablet; Refill: 0 - triamcinolone acetonide 0.1 % ointment; Apply to area(s) 2 (two) times daily. Dispense: 30 g; Refill: 1 Will need to get OSH records to review his ED treatment plan and medications. Pt has limited availability to elevate his lower extremities. Encouraged to do so as much as possible and to make sure he takes his lasix as prescribed. See is clinic next week to assess wounds and treatment plan After visit summary (AVS ) documentation will be available through [facility] for this encounter. JOSEFINA العراقي ER warnings given. Barriers to care: None Ability to manage care: Good Follow up as we discussed or if ANY WORSE SYMPTOMS or SHORTNESS OF BREATH, CHEST PAINS/PRESSURE AND / OR REOCCURING FEVER, OR VOMITING - PLEASE SEEK MEDICAL ATTENTION. A total of 30 minutes spent on the telephone with the patient. documented in this encounter Plan of Treatment Date Type Specialty Care Team Description 08/28/2020 Office Visit Pulmonary Disease Mayela Funes DO [address] [place] [address] [phone] 12/17/2020 Office Visit Cardiology Eunice Chang M D [address] [address] [phone] Health Maintenance Due Date Last Done Comments [...] of this encounter Implants Implanted Type Area Colloid Mill Operator Device Identifier Shelf Exp iration Model / Date Serial / L ot Pacemaker PACEMAKER documented as of this encounter Results Not on filedocumented in this encounter Visit Diagnoses Diagnosis Cellulitis of right lower extremity with out foot - Primary Essential hypertension Unspecified essential hypertension documented in this encounter Insurance Payer Benefit Plan / Subscriber ID Effective Phone Address T ype Group Dates ROSEANNA CONDON [id number] 2020-Pre [phone] [facility] sent [address] [place] [address] documented as of this encounter
[2020-07-15 16:02] LABS: Protime INR 1.03
[2020-07-15 16:03] LABS: Absolute Lymphocytes (CBC) 1.4 K/uL (0.7-4.9); Basophils % 1.4 % (0-1.3); Hematocrit 35.6 % (39.6-49.0); Lymphocytes % 15.3 % (15.3-44.8); MPV 8.5 fL (7.6-11.3); RBC Red Blood Cell Count 4.55 M/uL (4.33-5.43)
[2020-07-15 16:18] LABS: ALT/SGPT 69 U/L (12-78); AST/SGOT 27 U/L (15-37); Albumin 3.3 g/dL (3.4-5.0); Alkaline Phosphatase 63 U/L (45-117); BUN Blood Urea Nitrogen 18 mg/dL (7-18); Bicarbonate 31 mmol/L (21-32); Bilirubin Direct < 0.1 mg/dL (0-0.2); Bilirubin Total 0.2 mg/dL (0.2-1.0); Glucose Level 152 mg/dL (74-106); Potassium 3.9 mmol/L (3.5-5.1); Sodium Level 138 mmol/L (136-145)
[2020-07-15 16:19] LABS: NT PRO-BNP 46 pg/mL (<125); Troponin (Emerg Dept Use Only) < 0.02 ng/mL (0.0-0.045)
[2020-07-15 16:31] LABS: Barbiturates NEGATIVE (NEGATIVE); Benzodiazepines NEGATIVE (NEGATIVE); Cocaine NEGATIVE (NEGATIVE); METHAMPHETAM NEGATIVE (NEGATIVE); Methadone NEGATIVE (NEGATIVE); Opiates NEGATIVE (NEGATIVE); Phencyclidine NEGATIVE (NEGATIVE); THC Cannibis NEGATIVE (NEGATIVE)
[2020-07-15] MEDS ORDERED: LEVALBUTEROL 1.25 MG/3 ML NEB ONE (16:39)
[2020-07-15] MEDS ORDERED: IPRATROPIUM BROM 0.5MG/2.5ML ONE (16:39)
[2020-07-15] MEDS ORDERED: NA CHLORIDE 0.9% 500 ML ONE (16:39)
--- NOTE | 2020-07-15 16:40 | RAD REPORT ---
EXAM DESCRIPTION: Jayda Single View07/15/2020 3:45 pm CLINICAL HISTORY: cough COMPARISON: 2018 FINDINGS: The lungs appear clear of acute infiltrate. The heart is normal size .Pacemaker leads are in place. IMPRESSION: No acute abnormalities displayed
[2020-07-15 16:43] LABS: Urine Blood NEGATIVE (NEG); Urine Glucose NEGATIVE (NEG); Urine Protein 2+ (NEG); Urine Specific Gravity 1.025 (1.005-1.030)
--- NOTE | 2020-07-15 17:29 | EDPHYS ---
Physician Documentation [facility] Name: Juan Miguel Langston Age: 54 yrs Sex: Male : 1965 Arrival Date: 07/15/2020 Time: 15:18 Bed 8 Private MD: ED Physician Lenard Rosario HPI: 07/15 16:13 This 54 yrs old Male presents to ER via EMS with complaints of Near Syncope. rambo 16:13 The patient has experienced near-syncope. Onset: The symptoms/episode began/occurred rambo just prior to arrival. Duration: This was a single episode, that lasted 20 second(s). Context: the episode(s) was witnessed, by family, by police. Associated injury: The patient did not suffer any apparent associated injury. Associated signs and symptoms: Pertinent positives: lightheadedness. Current symptoms: Currently, the patient is not experiencing any symptoms. The patient has experienced similar episodes in the past, several times. Historical: - Allergies: 15:22 Azithromycin; em 15:22 Beta-Blockers (Beta-Adrenergic Bloc; em 15:22 Demerol; em 15:22 Metoprolol Tartrate; em - Home Meds: 15:22 aspirin 325 mg Oral tab [Active]; clopidogrel 75 mg Oral tab 1 tab once daily [Active]; em Eliquis 5 mg Oral tab 1 tab 2 times per day [Active]; isosorbide dinitrate 30 mg Oral tab daily [Active]; Lasix 40 mg Oral tab once daily [Active]; lisinopril 40 mg Oral tab once daily [Active]; Livalo 4 mg Oral tab 1 tab nightly [Active]; metformin er 500 mg BID [Active]; nitroglycerin 0.4 mg SL subl 1 tab every 5 minutes [Active]; Norvasc 10 mg Oral tab 1 tab once daily [Active]; Phenergan 25 mg Q6H prn n/v Oral [Active]; ProAir HFA 90 mcg/actuation inhalation HFAA 2 puffs every 6 hours [Active]; tramadol 50 mg Oral tab 1 tab every 6 hours for Pain [Active]; - Immunization history:: Adult Immunizations not up to date. - Social history:: Smoking status: unknown. - Family history:: not pertinent. ROS: 16:13 Constitutional: Negative for fever, chills, and weight loss, Eyes: Negative for injury, rambo pain, redness, and discharge, ENT: Negative for injury, pain, and discharge, Neck: Negative for injury, pain, and swelling, Cardiovascular: Negative for chest pain, palpitations, and edema, Abdomen/GI: Negative for abdominal pain, nausea, vomiting, diarrhea, and constipation, Back: Negative for injury and pain, : Negative for injury, bleeding, discharge, and swelling, MS/Extremity: Negative for injury and deformity, Skin: Negative for injury, rash, and discoloration, Psych: Negative for depression, anxiety, suicide ideation, homicidal ideation, and hallucinations, Allergy/Immunology: Negative for hives, rash, and allergies, Endocrine: Negative for neck swelling, polydipsia, polyuria, polyphagia, and marked weight changes, Hematologic/Lymphatic: Negative for swollen nodes, abnormal bleeding, and unusual bruising. 16:13 Respiratory: Positive for cough, shortness of breath, at rest. 16:13 Neuro: Positive for weakness. Exam: 16:13 Constitutional: This is a well developed, well nourished patient who is awake, alert, rambo and in no acute distress. Head/Face: Normocephalic, atraumatic. Eyes: Pupils equal round and reactive to light, extra-ocular motions intact. Lids and lashes normal. Conjunctiva and sclera are non-icteric and not injected. Cornea within normal limits. Periorbital areas with no swelling, redness, or edema. ENT: Nares patent. No nasal discharge, no septal abnormalities noted. Tympanic membranes are normal and external auditory canals are clear. Oropharynx with no redness, swelling, or masses, exudates, or evidence of obstruction, uvula midline. Mucous membranes moist. Neck: Trachea midline, no thyromegaly or masses palpated, and no cervical lymphadenopathy. Supple, full range of motion without nuchal rigidity, or vertebral point tenderness. No Meningismus. Chest/axilla: Normal chest wall appearance and motion. Nontender with no deformity. No lesions are appreciated. Cardiovascular: Regular rate and rhythm with a normal S1 and S2. No gallops, murmurs, or rubs. Normal PMI, no JVD. No pulse deficits. Abdomen/GI: Soft, non-tender, with normal bowel sounds. No distension or tympany. No guarding or rebound. No evidence of tenderness throughout. Back: No spinal tenderness. No costovertebral tenderness. Full range of motion. Male : Normal genitalia with no discharge or lesions. Skin: Warm, dry with normal turgor. Normal color with no rashes, no lesions, and no evidence of cellulitis. 16:13 Respiratory: the patient does not display signs of respiratory distress, Respirations: normal, no acute changes, Breath sounds: bronchial sounds, rhonchi, wheezing: expiratory 17:27 Musculoskeletal/extremity: DVT Exam: No signs of deep vein thrombosis. no pain, no rambo swelling, no tenderness, negative Homans' sign noted on exam, no appreciated bluish discoloration, no erythema, no increased warmth. 17:30 ECG was reviewed by the Attending Physician. [facility] Vital Signs: 15:18 BP 164 / 69; Pulse 111; Resp 20; Temp 98.2; Pulse Ox 96% on R/A; Pain 9/10; em 16:53 BP 129 / 65; Pulse 97; Resp 20 S; Pulse Ox 100% on Nebulizer Mask; iw MDM: 15:19 Patient medically screened. rambo 16:19 Differential Diagnosis: cardiac arrhythmia, emotional response, vasovagal episode. Data rambo reviewed: vital signs, nurses notes, lab test result(s), EKG, radiologic studies, plain films. 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 Test interpretation: by ED physician or midlevel provider: ECG, plain radiologic studies. Counseling: I had a detailed discussion with the patient and/or guardian regarding: the historical points, exam findings, and any diagnostic results supporting the discharge/admit diagnosis, lab results, radiology results, the need for outpatient follow up. 07/15 15:23 Order name: Basic Metabolic Panel [facility] 07/15 15:23 Order name: CBC with Diff; Complete Time: 17:24 [facility] 07/15 15:23 Order name: LFT's [facility] 07/15 15:23 Order name: Magnesium [facility] 07/15 15:23 Order name: NT PRO-BNP [facility] 07/15 15:23 Order name: PT-INR; Complete Time: 17:24 [facility] 07/15 15:23 Order name: Troponin (emerg Dept Use Only); Complete Time: 17:24 [facility] 07/15 15:23 Order name: UDS; Complete Time: 17:24 [facility] 07/15 15:24 Order name: Basic Metabolic Panel; Complete Time: 17:24 [facility] 07/15 15:24 Order name: Liver (Hepatic) Function; Complete Time: 17:24 [facility] 07/15 15:24 Order name: Magnesium; Complete Time: 17:24 [facility] 07/15 15:24 Order name: NT PRO-BNP; Complete Time: 17:24 [facility] 07/15 16:25 Order name: Urine Dipstick--Ancillary (enter results) 07/15 16:26 Order name: Urine Dipstick-Ancillary; Complete Time: 17:24 [facility] 07/15 15:23 Order name: XRAY Chest (1 view); Complete Time: 17:24 [facility] 07/15 15:23 Order name: EKG; Complete Time: 15:24 [facility] 07/15 15:23 Order name: Cardiac monitoring; Complete Time: 16:53 [facility] 07/15 15:23 Order name: EKG - Nurse/Tech; Complete Time: 16:53 [facility] 07/15 15:23 Order name: IV Saline Lock; Complete Time: 16:53 [facility] 07/15 15:23 Order name: Labs collected and sent; Complete Time: 16:53 [facility] 07/15 15:23 Order name: O2 Per Protocol; Complete Time: 16:53 [facility] 07/15 15:23 Order name: O2 Sat Monitoring; Complete Time: 16:53 [facility] 07/15 15:23 Order name: Urine Dipstick-Ancillary (obtain specimen); Complete Time: 16:52 rambo EC:30 Rate is 91 beats/min. Rhythm is regular. QRS [place] is Normal. UT interval is normal. QRS rambo interval is normal. QT interval is normal. No Q waves. T waves are Normal. No ST changes noted. Clinical impression: Abnormal EKG without significant change and No evidence of ischemia. Interpreted by me. Reviewed by me. Administered Medications: 16:52 Drug: NS 0.9% 500 ml Route: IV; Rate: bolus; Site: right hand; iw 17:40 Follow up: IV Status: Completed infusion iw 16:52 Drug: Xopenex 1.25 mg Route: Inhalation; iw 16:52 Drug: AtroVENT Aerosol 0.5 mg Route: Inhalation; iw 18:21 Not Given (Patient Refused): NS 0.9% 1000 ml IV at 125 ml/hr continuous iw Disposition: 07/15/20 17:28 Discharged to Home. Impression: Syncope and collapse, Chronic obstructive pulmonary disease, unspecified, Tobacco abuse counseling, Tobacco use. - Condition is Stable. - Discharge Instructions: Chronic Bronchitis, How to Use an Inhaler, Near-Syncope, Steps to Quit Smoking, Smoking Hazards, Syncope, Weakness, Near-Syncope, [id number], Syncope, [id number]-wo-Tmrv, Weakness, [id number]-[id number], Vasovagal Syncope, Adult. - Prescriptions for Albuterol Sulfate 90 mcg/actuation - inhale 1-2 puff by INHALATION route every 4-6 hours; 1 Inhaler. - Medication Reconciliation Form, Thank You Letter, Antibiotic Education, Prescription Opioid Use form. - Follow up: Private Physician; When: 2 - 3 days; Reason: Recheck today's complaints, Continuance of care, Re-evaluation by your physician. Follow up: Nazario Anderson MD; When: 2 - 3 days; Reason: Recheck today's complaints, Continuance of care, Re-evaluation by your physician. - Problem is new. - Symptoms have improved. Signatures: Dispatcher [employer] EDIL Lenard Rosario MD MD cha Munoz, Edgar, RN RN Adeline Perez RN RN iw Corrections: (The following items were deleted from the chart) 18:24 17:28 07/15/2020 17:28 Discharged to Home. Impression: Syncope and collapse; Chronic iw obstructive pulmonary disease, unspecified; Tobacco abuse counseling; Tobacco use. Condition is Stable. Discharge Instructions: Chronic Bronchitis, How to Use an Inhaler, Near-Syncope, Steps to Quit Smoking, Smoking Hazards, Syncope, Weakness, Near-Syncope, [id number]-[id number], Syncope, Gjat-nv-Kxhu, Weakness, Cmdb-fi-[id number], Vasovagal Syncope, Adult. Prescriptions for Albuterol Sulfate 90 mcg/actuation - inhale 1-2 puff by INHALATION route every 4-6 hours; 1 Inhaler. and Forms are Medication Reconciliation Form, Thank You Letter, Antibiotic Education, Prescription Opioid Use. Follow up: Private Physician; When: 2 - 3 days; Reason: Recheck today's complaints, Continuance of care, Re-evaluation by your physician. Follow up: Nazario Anderson; When: 2 - 3 days; Reason: Recheck today's complaints, Continuance of care, Re-evaluation by your physician. Problem is new. Symptoms have improved. rambo
--- NOTE | 2020-07-15 17:29 | ER ---
Nurse's Notes [facility] Name: Juan Miguel Langston Age: 54 yrs Sex: Male : 1965 Arrival Date: 07/15/2020 Time: 15:18 Bed 8 Private MD: Diagnosis: Syncope and collapse;Chronic obstructive pulmonary disease, unspecified;Tobacco abuse counseling;Tobacco use Presentation: 07/15 15:18 Chief complaint: EMS states: called out for coughing spell then passing out at the em custodial, reports chest pain, denies shortness of breath. Coronavirus screen: Client denies travel out of the [place] in the last 14 days. Ebola Screen: Patient negative for fever greater than or equal to 101.5 degrees Fahrenheit, and additional compatible Ebola Virus Disease symptoms Patient denies exposure to infectious person. Patient denies travel to an Ebola-affected area in the 21 days before illness onset. No symptoms or risks identified at this time. Initial Sepsis Screen: Does the patient meet any 2 criteria? HR > 90 bpm. No. Patient's initial sepsis screen is negative. Does the patient have a suspected source of infection? No. Patient's initial sepsis screen is negative. Risk Assessment: Do you want to hurt yourself or someone else? Patient reports no desire to harm self or others. Onset of symptoms was July 15, 2020. 15:18 Method Of Arrival: EMS: [facility] em 15:18 Acuity: DESTINY 3 em Historical: - Allergies: 15:22 Azithromycin; em 15:22 Beta-Blockers (Beta-Adrenergic Bloc; em 15:22 Demerol; em 15:22 Metoprolol Tartrate; em - Home Meds: 15:22 aspirin 325 mg Oral tab [Active]; clopidogrel 75 mg Oral tab 1 tab once daily [Active]; em Eliquis 5 mg Oral tab 1 tab 2 times per day [Active]; isosorbide dinitrate 30 mg Oral tab daily [Active]; Lasix 40 mg Oral tab once daily [Active]; lisinopril 40 mg Oral tab once daily [Active]; Livalo 4 mg Oral tab 1 tab nightly [Active]; metformin er 500 mg BID [Active]; nitroglycerin 0.4 mg SL subl 1 tab every 5 minutes [Active]; Norvasc 10 mg Oral tab 1 tab once daily [Active]; Phenergan 25 mg Q6H prn n/v Oral [Active]; ProAir HFA 90 mcg/actuation inhalation HFAA 2 puffs every 6 hours [Active]; tramadol 50 mg Oral tab 1 tab every 6 hours for Pain [Active]; - Immunization history:: Adult Immunizations not up to date. - Social history:: Smoking status: unknown. - Family history:: not pertinent. Screenin:50 Abuse screen: Denies threats or abuse. Denies injuries from another. Nutritional iw screening: No deficits noted. Tuberculosis screening: No symptoms or risk factors identified. Fall Risk IV access (20 points). Assessment: 16:00 General: Appears in no apparent distress. Behavior is calm, cooperative. Pain: iw Complains of pain in head and chest. Neuro: Level of Consciousness is awake, alert, obeys commands, Oriented to person, place, time, situation, Moves all extremities. Cardiovascular: Reports lightheadedness, palpitations, shortness of breath, Patient's skin is warm and dry. Respiratory: Reports shortness of breath cough that is Respiratory effort is even, unlabored, Respiratory pattern is regular. Derm: Skin is intact, is healthy with good turgor. Musculoskeletal: Range of motion: intact in all extremities. 16:54 Reassessment: Patient appears in no apparent distress at this time. Patient and/or iw family updated on plan of care and expected duration. Pain level reassessed. Patient is alert, oriented x 3, equal unlabored respirations, skin warm/dry/pink. Vital Signs: 15:18 BP 164 / 69; Pulse 111; Resp 20; Temp 98.2; Pulse Ox 96% on R/A; Pain 9/10; em 16:53 BP 129 / 65; Pulse 97; Resp 20 S; Pulse Ox 100% on Nebulizer Mask; iw ED Course: 15:18 Patient arrived in ED. em 15:19 Lenard Rosario MD is Attending Physician. rambo 15:20 Triage completed. em 15:35 Adeline Langston, NICCI is Primary Nurse. iw 15:45 XRAY Chest (1 view) In Process Unspecified. EDMS 15:50 Inserted saline lock: 20 gauge in right hand, using aseptic technique. iw 15:51 Arm band placed on. iw 17:28 Nazairo Anderson MD is Referral Physician. rambo 18:20 Patient did not have IV access during this emergency room visit. IV discontinued, mh5 Pressure dressing applied. 18:22 No provider procedures requiring assistance completed. IV discontinued, intact, iw bleeding controlled, No redness/swelling at site. Pressure dressing applied. 18:22 Patient has correct armband on for positive identification. iw Administered Medications: 16:52 Drug: NS 0.9% 500 ml Route: IV; Rate: bolus; Site: right hand; iw 17:40 Follow up: IV Status: Completed infusion iw 16:52 Drug: Xopenex 1.25 mg Route: Inhalation; iw 16:52 Drug: AtroVENT Aerosol 0.5 mg Route: Inhalation; iw 18:21 Not Given (Patient Refused): NS 0.9% 1000 ml IV at 125 ml/hr continuous iw Outcome: 17:28 Discharge ordered by . rambo 18:22 Discharged to home ambulatory. iw 18:22 Condition: good 18:22 Discharge instructions given to patient, Instructed on discharge instructions, follow up and referral plans. medication usage, Demonstrated understanding of instructions, follow-up care, medications. 18:24 Patient left the ED. iw Signatures: Dispatcher [employer] Lenard Lindquist MD MD cha Munoz, Edgar, RN RN Adeline Perez RN RN iw Martinez, [facility]
[2020-07-15 18:28] VITALS: TEMP 98.2
[2020-07-15 18:29] VITALS: BP 129/65; O2SAT 100
--- NOTE | 2020-07-16 06:10 | EKG ---
Test Date: 2020-07-15 Test Time: 16:47:27 [employer]sembler: HELIO MEASUREMENT RESULTS: Intervals: Rate: 91 [place]: 140 QRSD: 94 QT: 350 QTc: 430 [place]: P: 51 [place]: 140 QRS: 75 T: 49 INTERPRETIVE STATEMENTS: Normal sinus rhythm ST abnormality, possible digitalis effect Abnormal ECG Compared to ECG 07/09/2020 04:54:51 No significant changes Electronically Signed On 07-16-20 06:08:55 THEATRICAL RIGGER by Nazario Anderson
== END 2020-07-15 18:24 | disposition home or self-care (01) ==
LOC: ER 15:11
DX: J44.9 Chronic obstructive pulmonary disease, unspecified (principal); Z72.0 Tobacco use; Z71.6 Tobacco abuse counseling; Z79.01 Long term (current) use of anticoagulants; Z79.82 Long term (current) use of aspirin; Z88.1 Allergy status to other antibiotic agents; Z88.5 Allergy status to narcotic agent; Z88.8 Allergy status to other drugs, medicaments and biological substances
CPT/HCPCS: 93005; 85025; 80048; 36415; 83735; 85610; 80076; 80307 ×8; 81003; 84484; 83880; 71045; 96360; 99284; J7040